=== PATIENT | male | born 1955 | race Caucasian/White ===

== ENCOUNTER 2016-06-02 14:36 | Emergency (ER) | payer MEDICAID ==
[~2016-06-02] VITALS: Ht 175.3 cm; Wt 75.0 kg
[~2016-06-02 14:36] MED LIST: ALBUAER3 INH; AMOX875T2 PO; B12-1CHW CHEW; CHLO25CA2 PO; LISI10TA3 PO; LOVA40TA PO; VITA100T2 PO; WALKER WHEELS/F1 MIS
[2016-06-02 14:38] VITALS: BP 114/57; PULSE 97; RESP 16; TEMP 97.7; O2SAT 98
--- NOTE | 2016-06-02 14:57 | PD ---
HPI Chief Complaint: Injury Time Seen by Provider: 14:57 Travel History International Travel<30 days: No Contact w/Intl Traveler<30days: No Traveled to known affect area: No History of Present Illness HPI 61-year-old male with a history of hypertension, hyperlipidemia, COPD presents to the emergency department for evaluation of right knee injury. Patient states that 5 days ago he was drinking alcohol and he lost his balance causing him to land on his right knee on the asphalt. Denies head trauma or loss of consciousness. States that he scraped his right knee at the time but went to the [facility] to have it cleaned and dressed by the nurse. States that since then he has had worsening redness, swelling and throbbing pain at the area of the abrasion. He denies fever, chills, nausea, vomiting, numbness or tingling, weakness. No other complaints. PFSH Past Medical History Hx Anticoagulant Therapy: No Autoimmune Disease: No Heart Rhythm Problems: No Cancer: No Cardiovascular Problems: Yes High Cholesterol: Yes Chemotherapy: No COPD: Yes Cerebrovascular Accident: No Diabetes: No Diminished Hearing: No Endocrine: No Genitourinary: No Headaches: Yes Hypertension: Yes Immune Disorder: No Musculoskeletal: Yes Neurologic: Yes Psychiatric: No Reproductive: No Sleep Apnea: Yes Past Surgical History Other Surgery: Yes (LEFT HAND) Social History Alcohol Use: Yes (12 PK/DAY) Tobacco Use: Yes (1 PPD) Substance Use: Yes (marijuana) Allergies-Medications (Allergen,Severity, Reaction): Coded Allergies: Codeine (Verified Adverse Reaction, Severe, N&V, 06/02/16) *MDRO Multi-Drug Resistant Organism (Verified Adverse Reaction, Unknown, ) MRSA PCR Screen POSITIVE - 12/31/2015 MRSA (blood) - 08/2004 Reported Meds & Prescriptions Reported Meds & Active Scripts Active [id number] (Methylcobalamin) 1 Mg Chew 1 Mg CHEW DAILY Walker with Front Wheels (Device) 1 Mis Mis 1 Ea .ROUTE DIRECTED Chlordiazepoxide (Chlordiazepoxide HCl) 25 Mg Cap 25 Mg PO TID PRN Take THREE Times daily for 3 Days, then TWICE daily for 3 days, then ONCE a day for 3 Days. Vitamin B-1 (Thiamine HCl) 100 Mg Tab 100 Mg PO DAILY Amoxicillin-Clavulanate 875-125 mg Tab 875 Mg PO Q12HR Reported Proair Hfa 8.5 GM Inh (Albuterol Sulfate) 90 Mcg/Act Aer 90 Mcg INH Lovastatin 40 Mg Tab 40 Mg PO DAILY Lisinopril 10 Mg Tab 10 Mg PO DAILY Review of Systems Except as stated in HPI: all other systems reviewed are Neg Physical Exam Narrative GENERAL: Well-nourished and well-developed pleasant male patient in no acute distress who is nontoxic appearing. SKIN: Warm and dry. HEAD: Normocephalic and atraumatic. EYES: No injection, drainage, or hyphema noted. PERRLA. EOMI. ENT: No nasal drainage noted. Oropharynx is clear. NECK: Supple and the trachea is midline. CARDIOVASCULAR: Regular rate and rhythm. RESPIRATORY: Breath sounds are equal bilaterally with no accessory muscle use, wheezing, rhonchi, or crackles. MUSCULOSKELETAL: There is an abrasion to the anterior right knee with mild drainage and surrounding erythema and warmth. Tenderness to palpation of this area. Patient has full range of motion in the right knee. No obvious deformities, cyanosis, or ecchymosis is present throughout the upper and lower extremities. Patient has full range of motion without any signs of neurovascular compromise. NEUROLOGICAL: Awake, alert, and oriented. Normal speech and gait. Cranial nerves are grossly intact. Data Data Last Documented VS Vital Signs Date Time Temp Pulse Resp B/P Pulse Ox O2 Delivery O2 Flow Rate FiO2 06/02/16 14:38 97.7 97 16 114/57 98 Room Air Orders Knee, Complete (4vws) (06/02/16 14:56) Tetanus/Diphtheria Tox Adult (Tetanus/Di (06/02/16 15:00) Ibuprofen (Motrin) (06/02/16 15:15) Sulfamet-Trimeth Ds 800-160 Mg (Bactrim (06/02/16 15:15) Wound Care (06/02/16 15:42) MDM Medical Decision Making Medical Screen Exam Complete: Yes Emergency Medical Condition: Yes Differential Diagnosis Abrasion versus cellulitis versus wound versus contusion versus sprain Narrative Course 61-year-old male presents to the emergency department for evaluation of right knee injury that occurred 5 days ago. The patient is a homeless alcoholic and had the wound cleaned and dressed at the [facility] a few days ago. It appears to be infected however does not involve the joint as he has full range of motion in the right knee. Patient is afebrile, vital signs are stable. X- ray of the right knee has been ordered and is pending. Tetanus vaccination was updated here in the ED. Patient is given his first dose of Bactrim DS and ibuprofen. X-ray of the right knee shows prepatellar soft tissue swelling but is otherwise unremarkable. Patient will be discharged with Bactrim. Discussed importance of wound care. Discussed when to return to the emergency department. Patient verbalizes understanding and agreement with treatment plan. Diagnosis Primary Impression: Cellulitis of right knee Referrals: Primary Care Physician Patient Instructions: Cellulitis (ED), General Instructions Additional Instructions: Keep wound clean and dry. Take medication as prescribed with food and a full glass of water. [facility] Follow-up with your Primary Care Physician. Return to the ED for any acute worsening of symptoms. Med/Other Pt SpecificInfo: Prescription(s) given Scripts Sulfamethoxazole-Trimethoprim (Bactrim DS)800-160 Mg Tab1 Tab PO BID 10 Days Ref 0 Prov:Hayley Atkins DO 06/02/16 Disposition: 01 DISCHARGE HOME Condition: Stable Princess Jeronimo Jun 02, 2016 14:57
[2016-06-02] MEDS ORDERED: TETANUS/DIPHTHERIA TOXOID ADULT 0.5 ML VIAL IM ONE (15:00)
[2016-06-02] MEDS ORDERED: IBUPROFEN 800 MG TAB PO ONE (15:15)
[2016-06-02] MEDS ORDERED: SULFAMETHOXAZOLE-TRIMETHOPRIM DS 800-160 MG TAB PO ONE (15:15)
--- NOTE | 2016-06-02 15:35 | RADRPT ---
EXAM DATE/TIME: 06/02/2016 15:28 [facility] COMPARISON: No previous studies available for comparison. INDICATIONS : Patient fell, complains of pain and a wound on anterior surface of right knee. MEDICAL HISTORY : Chronic obstructive pulmonary disease. High cholesterol, high blood pressure. SURGICAL HISTORY : None. ENCOUNTER: Initial ACUITY: 4 - 6 days PAIN SCORE: 10/10 LOCATION: Right anterior Knee FINDINGS: There is prepatellar soft tissue swelling. There is no knee joint effusion. Mild degenerative barrera es are noted involving the medial femoral tibial joints and the patellofemoral joint. There is no ac tribal fracture or dislocation. CONCLUSION: 1. Diffuse prepatellar soft tissue swelling. 2. No acute fracture, dislocation or knee joint effusion. 3. 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 Lisandro Rodriguez MD on June 02, 2016 at 15:25 Board Certified Radiologist. This report was verified electronically.
[2016-06-02] MEDS ORDERED: BACT800T5 PO (15:42)
[2016-08-17] MEDS ORDERED: ADVA250A INH (16:54)
== END 2016-06-02 16:21 | disposition home or self-care (01) ==
LOC: NEPB 14:36
DX: L03.115 Cellulitis of right lower limb (principal); E78.00 Pure hypercholesterolemia, unspecified; J44.9 Chronic obstructive pulmonary disease, unspecified; I10 Essential (primary) hypertension; F10.10 Alcohol abuse, uncomplicated; F17.210 Nicotine dependence, cigarettes, uncomplicated; F12.90 Cannabis use, unspecified, uncomplicated; W01.0XXA Fall on same level from slipping, tripping and stumbling without subsequent striking against object, initial encounter; Z59.0 Homelessness; Z23 Encounter for immunization
CPT/HCPCS: 73564; 90471; 90714

== ENCOUNTER 2016-07-20 16:16 | Inpatient (IN) | payer MEDICAID ==
[~2016-07-20] VITALS: Ht 175.3 cm; Wt 77.1 kg
[~2016-07-20 16:16] MED LIST changes: +BACT800T5 PO
[2016-07-20 16:35] VITALS: BP 134/85; PULSE 105; RESP 16; TEMP 98; O2SAT 99
[2016-07-20 16:38] VITALS: BP 134/85; PULSE 104; PULSE 106; RESP 16; O2SAT 100
[2016-07-20] MEDS ORDERED: VANCOMYCIN INJ 1,000 MG in SODIUM CHLOR 0.9% 250 ML INJ 250 ML IV ONE (16:45)
[2016-07-20] MEDS: SODIUM CHLOR 0.9% 1000 ML INJ 1,000 ML IV SCH (16:52)
--- NOTE | 2016-07-20 16:54 | PD ---
HPI Chief Complaint: Skin Problem Time Seen by Provider: 16:28 Travel History International Travel<30 days: No Contact w/Intl Traveler<30days: No Traveled to known affect area: No History of Present Illness HPI 61-year-old male complains of right foot pain and swelling. Patient states that he has abrasion to right foot about a week ago. Patient states he has increasing redness swelling and pain to right foot since then. Patient denies any fever chills. Patient denies any headache. Patient denies any chest pain or shortness of breath. Patient denies abdominal pain. Patient denies any recent fall or injury. Patient denies any focal weakness or numbness of extremity. Patient has history hypertension, dyslipidemia, COPD, alcohol abuse. Patient states that last drink was yesterday. Patient states that the nurse at the [facility] has been doing local wound care for him. Patient states that he is up-to-date with TD booster. PFSH Past Medical History Hx Anticoagulant Therapy: No Autoimmune Disease: No Heart Rhythm Problems: No Cancer: No Cardiovascular Problems: Yes High Cholesterol: Yes Chemotherapy: No COPD: Yes Cerebrovascular Accident: No Diabetes: No Diminished Hearing: No Endocrine: No Genitourinary: No Headaches: Yes Hypertension: Yes Immune Disorder: No Musculoskeletal: Yes Neurologic: Yes Psychiatric: No Reproductive: No Sleep Apnea: Yes Past Surgical History Other Surgery: Yes (LEFT HAND) Social History Alcohol Use: Yes (8 beers a day, last one last night) Tobacco Use: Yes Substance Use: No Allergies-Medications (Allergen,Severity, Reaction): Coded Allergies: Codeine (Verified Adverse Reaction, Severe, N&V, 07/20/16) *MDRO Multi-Drug Resistant Organism (Verified Adverse Reaction, Unknown, ) MRSA PCR Screen POSITIVE - 12/31/2015 MRSA (blood) - 08/2004 Reported Meds & Prescriptions Reported Meds & Active Scripts Active Reported Advair Diskus Inh (Fluticasone-Salmeterol Inh) 250-50 Mcg/Blist Aer 1 Puff INH BID Rinse mouth after use. Proair Hfa 8.5 GM Inh (Albuterol Sulfate) 90 Mcg/Act Aer 90 Mcg INH Lovastatin 40 Mg Tab 40 Mg PO DAILY Lisinopril 10 Mg Tab 10 Mg PO DAILY Review of Systems General / Constitutional: No: Fever Eyes: No: Visual changes HENT: No: Headaches Cardiovascular: No: Chest Pain or Discomfort Respiratory: No: Shortness of Breath Gastrointestinal: No: Abdominal Pain Genitourinary: No: Dysuria Musculoskeletal: No: Pain Skin: No Rash Neurologic: No: Weakness Psychiatric: No: Depression Endocrine: No: Polydipsia Hematologic/Lymphatic: No: Easy Bruising Physical Exam Narrative GENERAL: Well-nourished, well-developed patient. SKIN: Warm and dry. HEAD: Normocephalic. EYES: No scleral icterus. No injection or drainage. NECK: Supple, trachea midline. No JVD or lymphadenopathy. CARDIOVASCULAR: Regular rate and rhythm without murmurs, gallops, or rubs. RESPIRATORY: Breath sounds equal bilaterally. No accessory muscle use. GASTROINTESTINAL: Abdomen soft, non-tender, nondistended. MUSCULOSKELETAL: No cyanosis, or edema. BACK: Nontender without obvious deformity. No CVA tenderness. Patient has redness swelling with mild tenderness diffuse over the right foot. Patient has a large pustule bulla lateral aspect the right foot. Multiple ulcerated lesions on the right foot. Patient also has multiple ulcerated lesions on the left foot with mild redness swelling of the left foot also. Patient has redness swelling on the or the toes bilateral feet. Data Data Last Documented VS Vital Signs Date Time Temp Pulse Resp B/P Pulse Ox O2 Delivery O2 Flow Rate FiO2 07/20/16 16:38 106 16 134/85 100 Room Air 07/20/16 16:35 98.0 Orders Complete Blood Count With Diff (07/20/16 16:33) Comprehensive Metabolic Panel (07/20/16 16:33) Prothrombin Time / Inr (Pt) (07/20/16 16:33) Act Partial Throm Time (Ptt) (07/20/16 16:33) Blood Culture (07/20/16 16:33) Wound Culture And Gram Stain (07/20/16 16:33) Iv Access Insert/Monitor (07/20/16 16:33) Ecg Monitoring (07/20/16 16:33) Oximetry (07/20/16 16:33) Sodium Chlor 0.9% 1000 Ml Inj (Ns 1000 M (07/20/16 16:45) Vancomycin Inj (Vancomycin Inj) (07/20/16 16:45) Foot, Complete ([id number]) (07/20/16 16:35) Chest, Single Ap (07/20/16 16:35) Potassium Chloride (Kcl) (07/20/16 18:30) Labs Laboratory Tests Test 07/20/16 16:48 White Blood Count 11.3 TH/MM3 Red Blood Count 3.52 MIL/MM3 Hemoglobin 12.2 GM/DL Hematocrit 35.4 % Mean Corpuscular Volume 100.5 FL Mean Corpuscular Hemoglobin 34.6 PG Mean Corpuscular Hemoglobin 34.4 % Concent Red Cell Distribution Width 15.6 % Platelet Count 220 TH/MM3 Mean Platelet Volume 8.9 FL Neutrophils (%) (Auto) 80.6 % Lymphocytes (%) (Auto) 12.1 % Monocytes (%) (Auto) 6.7 % Eosinophils (%) (Auto) 0.3 % Basophils (%) (Auto) 0.3 % Neutrophils # (Auto) 9.1 TH/MM3 Lymphocytes # (Auto) 1.4 TH/MM3 Monocytes # (Auto) 0.8 TH/MM3 Eosinophils # (Auto) 0.0 TH/MM3 Basophils # (Auto) 0.0 TH/MM3 CBC Comment DIFF FINAL Differential Comment Prothrombin Time 10.3 SEC Prothromb Time International 0.9 RATIO Ratio Activated Partial 29.3 SEC Thromboplast Time Sodium Level 138 MEQ/L Potassium Level 3.2 MEQ/L Chloride Level 101 MEQ/L Carbon Dioxide Level 27.7 MEQ/L Anion Gap 9 MEQ/L Blood Urea Nitrogen 8 MG/DL Creatinine 0.78 MG/DL Estimat Glomerular Filtration 102 ML/MIN Rate Random Glucose 201 MG/DL Calcium Level 8.4 MG/DL Total Bilirubin 0.4 MG/DL Aspartate Amino Transf 11 U/L (AST/SGOT) Alanine Aminotransferase 13 U/L (ALT/SGPT) Alkaline Phosphatase 98 U/L Total Protein 8.1 GM/DL Albumin 2.8 GM/DL MDM Medical Decision Making Medical Screen Exam Complete: Yes Emergency Medical Condition: Yes Medical Record Reviewed: Yes Interpretation(s) Last Impressions Foot X-Ray 07/20/161634 Signed Impressions: Service Date/Time: Wednesday, July 20, 2016 16:53 - CONCLUSION: Unremarkable examination of the right foot. Brannon Chow MD Chest X-Ray 07/20/161634 Signed Impressions: Service Date/Time: Wednesday, July 20, 2016 16:48 - CONCLUSION: Normal examination. Brannon Chow MD 1828 PM. CBC with WBC 11.3. Hemoglobin 12.2 hematocrit 35.4. MCV 100.5. 80 neutrophil. Potassium 3.2. Glucose 201. Differential Diagnosis Differential diagnosis including cellulitis, abscess, osteomyelitis. Narrative Course 61-year-old male with bilateral foot cellulitis, worse on the right foot. A pustule lesion on the right foot was debrided. Culture obtained. Vancomycin 1 g IV given. Normal saline solution 70 cc an hour. Thiamine 100 mg IV. Patient has history of alcohol abuse. KCl 40 mEq by mouth given. Diagnosis Primary Impression: Cellulitis of right foot Additional Impressions: Cellulitis of left foot Hyperglycemia Hypokalemia Admitting Information Admitting Physician Requests: Admit Mainor Barry MD Jul 20, 2016 16:54
--- NOTE | 2016-07-20 17:07 | RADRPT ---
EXAM DATE/TIME: 07/20/2016 16:48 [facility] COMPARISON: CHEST SINGLE AP, April 29, 2016, 16:43. INDICATIONS : Shortness of Breath MEDICAL HISTORY : Chronic obstructive pulmonary disease. High cholesterol, high blood SURGICAL HISTORY : None. ENCOUNTER: Initial ACUITY: 1 day PAIN SCORE: 0/10 LOCATION: Bilateral chest FINDINGS: A single view of the chest demonstrates the lungs to be symmetrically aerated without evidence of mas s, infiltrate or effusion. The cardiomediastinal contours are unremarkable. Osseous structures are intact. CONCLUSION: Normal examination. Brannon Chow MD on July 20, 2016 at 17:06 Board Certified Radiologist. This report was verified electronically.
--- NOTE | 2016-07-20 17:08 | RADRPT ---
EXAM DATE/TIME: 07/20/2016 16:53 [facility] COMPARISON: No previous studies available for comparison. INDICATIONS : Right foot infection lateral side x1 week. MEDICAL HISTORY : Chronic obstructive pulmonary disease. High cholesterol, high blood SURGICAL HISTORY : None. ENCOUNTER: Initial ACUITY: 1 day PAIN SCORE: 10/10 LOCATION: Right Foot FINDINGS: Three view examination of the right foot demonstrates no soft tissue swelling, dislocation, or fractu re. The tarsal bones appear intact. The interphalangeal and metatarsophalangeal joints are intact. The calcaneus is intact. Bony mineralization is normal. CONCLUSION: Unremarkable examination of the right foot. Brannon Chow MD on July 20, 2016 at 17:07 Board Certified Radiologist. This report was verified electronically.
[2016-07-20 17:09] LABS: AUTOMATED NEUTROPHIL # 9.1 TH/MM3 (1.8-7.7); BASOPHIL % 0.3 % (0.0-2.0); EOSINOPHIL % 0.3 % (0.0-4.0); HEMATOCRIT 35.4 % (39.0-51.0); HEMO FLAGS DIFF FINAL; LYMPH % 12.1 % (9.0-44.0); LYMPHOCYTE # 1.4 TH/MM3 (1.0-4.8); MEAN CELL VOLUME 100.5 FL (80.0-100.0); MEAN CORPUSCULAR HEMOGLOBIN 34.6 PG (27.0-34.0); MEAN CORPUSCULAR HGB CONC 34.4 % (32.0-36.0); MONO % 6.7 % (0.0-8.0); NEUT % 80.6 % (16.0-70.0); PLATELET COUNT 220 TH/MM3 (150-450); RED BLOOD COUNT 3.52 MIL/MM3 (4.50-5.90); RED CELL DISTRIBUTION WIDTH 15.6 % (11.6-17.2); WHITE BLOOD COUNT 11.3 TH/MM3 (4.0-11.0)
[2016-07-20 17:19] LABS: APTT (PATIENT) 29.3 SEC (24.3-30.1); INTERNATIONAL NORMALIZED RATIO 0.9 RATIO; PROTHROMBIN TIME - PATIENT 10.3 SEC (9.8-11.6)
[2016-07-20] MEDS ORDERED: ADVA250A INH (17:21)
[2016-07-20 17:32] LABS: ANION GAP 9 MEQ/L (5-15); AST (GOT) 11 U/L (15-37); BICARBONATE 27.7 MEQ/L (21.0-32.0); BLOOD UREA NITROGEN 8 MG/DL (7-18); CHLORIDE 101 MEQ/L (98-107); GLOMERULAR FILTRATION RATE 102 ML/MIN (>89); POTASSIUM 3.2 MEQ/L (3.5-5.1); SODIUM (NA) 138 MEQ/L (136-145)
[2016-07-20 17:35] LABS: ALKALINE PHOSPHATASE 98 U/L (45-117); ALT (GPT) 13 U/L (12-78); TOTAL BILIRUBIN ADULT 0.4 MG/DL (0.2-1.0)
[2016-07-20] MEDS ORDERED: POTASSIUM CHLORIDE 20 MEQ CONTROLLED RELEASE TAB PO ONE (18:30)
[2016-07-20] MEDS ORDERED: ACETAMINOPHEN 325 MG TAB PO PRN (18:45)
[2016-07-20] MEDS ORDERED: SODIUM CHLORIDE 0.9% FLUSH 5 ML FLUSH IVF PRN (18:45)
[2016-07-20] MEDS ORDERED: ONDANSETRON HCL 4 MG/2 ML VIAL IV PRN (18:45)
[2016-07-20] MEDS ORDERED: KETOROLAC TROMETHAMINE 30 MG/ML (IVP) VIAL IV PUSH ONE (18:45)
[2016-07-20] MEDS ORDERED: VANCOMYCIN INJ 1,000 MG in SODIUM CHLOR 0.9% 250 ML INJ 250 ML IV SCH (19:15)
[2016-07-20 19:16] VITALS: BP 142/79; PULSE 99; RESP 18; O2SAT 100
[2016-07-20] MEDS ORDERED: SODIUM CHLORIDE 0.9% FLUSH 5 ML FLUSH FLUSH PRN (20:00)
[2016-07-20] MEDS ORDERED: NALOXONE HCL 0.4 MG/ML AMP IV PRN (20:00)
[2016-07-20] MEDS ORDERED: Vancomycin Consult Pharmacy 1 EA OTHER SCH (20:00)
[2016-07-20] MEDS: SODIUM CHLORIDE 0.9% FLUSH 5 ML FLUSH FLUSH SCH (20:58)
[2016-07-20] MEDS ORDERED: SODIUM CHLORIDE 0.9% FLUSH 5 ML FLUSH IVF SCH (21:00)
[2016-07-20 21:26] VITALS: O2SAT 99
[2016-07-20 21:53] VITALS: BP 135/82; PULSE 83; RESP 16; TEMP 98.1; O2SAT 95
--- NOTE | 2016-07-21 00:24 | HHI.HP ---
[facility] Service [facility] Primary Care Physician MARQUISE Adhikari Admission Diagnosis bilateral feet cellulitis. Hypokalemia. Hyperglycemia. Diagnoses: Chief Complaint: Right foot pain/swelling Travel History International Travel<30 Days: No Contact w/Intl Traveler <30 Da: No Traveled to Known Affected Are: No History of Present Illness History taken from patient and ED physician. 61-year-old male with a history of hypertension, dyslipidemia, COPD and EtOH abuse presented with complaints of right foot pain/swelling on Tuesday. Patient states that pain as throbbing and radiates throughout his whole foot. Patient is homeless and only walks in flip flops. The lesion was lanced open by PA in ED and covered with [place]. He denies any chest pain, shortness of breath, fever or chills. PCP is [facility] Review of Systems Constitutional: DENIES: Fever, Chills Respiratory: DENIES: Cough, Sputum production, Shortness of breath Cardiovascular: COMPLAINS OF: Lower Extremity Edema, DENIES: Chest pain Gastrointestinal: DENIES: Constipation, Diarrhea, Nausea, Vomiting Musculoskeletal: COMPLAINS OF: Joint pain, DENIES: Back pain, Neck pain Integumentary: DENIES: Rash Hematologic/lymphatic: DENIES: Lymphadenopathy Immunologic/allergic: DENIES: Urticaria Neurologic: DENIES: Headache Past Family Social History Past Medical History Hypertension Dyslipidemia COPD Sleep apnea Alcohol abuse Past Surgical History He had debridement of his left hand after an abscess about 8 years ago Reported Medications Reported Meds & Active Scripts Active Reported Advair Diskus Inh (Fluticasone-Salmeterol Inh) 250-50 Mcg/Blist Aer 1 Puff INH BID Rinse mouth after use. Proair Hfa 8.5 GM Inh (Albuterol Sulfate) 90 Mcg/Act Aer 90 Mcg INH Lovastatin 40 Mg Tab 40 Mg PO DAILY Lisinopril 10 Mg Tab 10 Mg PO DAILY Allergies: Coded Allergies: Codeine (Verified Adverse Reaction, Severe, N&V, 07/20/16) *MDRO Multi-Drug Resistant Organism (Verified Adverse Reaction, Unknown, ) MRSA PCR Screen POSITIVE - 12/31/2015 MRSA (blood) - 08/2004 Active Ordered Medications Current Medications Medications (Trade) Dose Ordered Sig/Ashli Route Start Time Stop Time Status Last Admin (NS 1000 ml Inj) 1,000 ml @ 70 mls/hr [id number] IV 07/20/16 16:45 07/20/16 16:52 (Zofran Inj) 4 mg Q6H PRN IV 07/20/16 18:45 (Tylenol) 650 mg Q4H PRN PO 07/20/16 18:45 (KCl) 20 meq DAILY PO 07/21/16 09:00 (NS Flush) 2 ml UNSCH PRN FLUSH 07/20/16 20:00 (NS Flush) 2 ml BID FLUSH 07/20/16 21:00 Naloxone HCl 0.4 mg 0.4 mg UNSCH PRN IV 07/20/16 20:00 Pharmacy Profile Note 0 ml @ 0 mls/hr UNSCH OTHER 07/20/16 20:00 (Vancomycin Inj/ NS 250 ml Inj) 250 ml @ 250 mls/hr Q12H IV 07/21/16 09:00 Miscellaneous Information SPECIFIC LAB TO BE ... ONCE ONCE XX 07/22/16 08:45 07/22/16 08:46 Family History Father: cancer Social History Tobacco use: 05/24 ppd Alcohol use: 8 beers a day Illicit drug use: marijuana Physical Exam Vital Signs Vital Signs Date Time Temp Pulse Resp B/P Pulse Ox O2 Delivery O2 Flow Rate FiO2 07/20/16 21:53 98.1 83 16 135/82 95 07/20/16 21:26 99 07/20/16 19:16 99 18 142/79 100 Room Air 07/20/16 16:38 106 16 134/85 100 Room Air 07/20/16 16:38 104 16 134/85 100 Room Air 07/20/16 16:35 98.0 105 16 134/85 99 Physical Exam GENERAL: This is a well-nourished, well-developed patient, in no apparent distress. SKIN: right outer foot lesion with surrounding edema and erythema HEAD: Atraumatic. Normocephalic. EYES: Pupils equal round and reactive. ENT: Nose without bleeding, purulent drainage or septal hematoma. Airway patent. NECK: Trachea midline. No JVD CARDIOVASCULAR: Regular rate and rhythm without murmurs, gallops, or rubs. RESPIRATORY: Clear to auscultation. Breath sounds equal bilaterally. No wheezes , rales, or rhonchi. GASTROINTESTINAL: Abdomen soft, non-tender, nondistended. No guarding. MUSCULOSKELETAL: Extremities without clubbing, cyanosis, or edemaNo calf tenderness. NEUROLOGICAL: Awake and alert. Motor and sensory grossly within normal limits. Normal speech. Laboratory Laboratory Tests Test 07/20/16 16:48 White Blood Count 11.3 Red Blood Count 3.52 Hemoglobin 12.2 Hematocrit 35.4 Mean Corpuscular Volume 100.5 Mean Corpuscular Hemoglobin 34.6 Mean Corpuscular Hemoglobin 34.4 Concent Red Cell Distribution Width 15.6 Platelet Count 220 Mean Platelet Volume 8.9 Neutrophils (%) (Auto) 80.6 Lymphocytes (%) (Auto) 12.1 Monocytes (%) (Auto) 6.7 Eosinophils (%) (Auto) 0.3 Basophils (%) (Auto) 0.3 Neutrophils # (Auto) 9.1 Lymphocytes # (Auto) 1.4 Monocytes # (Auto) 0.8 Eosinophils # (Auto) 0.0 Basophils # (Auto) 0.0 CBC Comment DIFF FINAL Differential Comment Prothrombin Time 10.3 Prothromb Time International 0.9 Ratio Activated Partial 29.3 Thromboplast Time Sodium Level 138 Potassium Level 3.2 Chloride Level 101 Carbon Dioxide Level 27.7 Anion Gap 9 Blood Urea Nitrogen 8 Creatinine 0.78 Estimat Glomerular Filtration 102 Rate Random Glucose 201 Calcium Level 8.4 Total Bilirubin 0.4 Aspartate Amino Transf 11 (AST/SGOT) Alanine Aminotransferase 13 (ALT/SGPT) Alkaline Phosphatase 98 Total Protein 8.1 Albumin 2.8 Date/Time Procedure Status Source Growth 07/20/16 16:48 Gram Stain - Final Resulted Wound Foot 07/20/16 16:48 Wound Culture Resulted Wound Foot Pending 07/20/16 16:48 Aerobic Blood Culture Received Blood Peripheral Pending 07/20/16 16:48 Anaerobic Blood Culture Received Blood Peripheral Pending Result Diagram: 07/20/16 1648 07/20/16 1648 Imaging Last Impressions Foot X-Ray 07/20/16 1635 Signed Impressions: Service Date/Time: Wednesday, July 20, 2016 16:53 - CONCLUSION: Unremarkable examination of the right foot. Brannon Chow MD Chest X-Ray 07/20/16 1635 Signed Impressions: Service Date/Time: Wednesday, July 20, 2016 16:48 - CONCLUSION: Normal examination. Brannon Chow MD Assessment and Plan Problem List: (1) Cellulitis of right foot ICD Code: L03.115 Status: Acute (2) Leukocytosis ICD Code: D72.829 Status: Acute (3) Hypokalemia ICD Code: E87.6 Status: Acute Assessment and Plan 61-year-old male with a history of hypertension, dyslipidemia, COPD and EtOH abuse presented with Cellulitis of right foot Images: Foot x-ray unremarkable -Antibiotics Vancomycin IV, pharmacy consult -Pain management with IV Toradol, will increase if needed Leukocytosis, likely due to cellulitis Labs: WBC 11.3, neutrophils 80% -Continue antibiotics as above -Trend CBC Hypokalemia Labs: Potassium 3.2 -Supplemental given -Trend BMP Hypertension, chronic -Monitor vitals -Restart home medications lisinopril Alcohol abuse -[facility] protocol -Encouraged to quit DVT prophylaxis: Lovenox Written by Taylor CAMARILLO, acting as scribe for Dr. Matson on 07/21/16 at 0400. The documentation accurately reflects the work performed [id number] and decisions made by me and the physician Dr Matson on 07/21/16. The documentation accurately reflects the work performed [id number] by me on at 0400 Discussed Condition With Patient Physician Certification 2 Midnight Certification Type: Admission for Inpatient Services Order for Inpatient Services The services are ordered in accordance with Medicare regulations or non- Medicare payer requirements, as applicable. In the case of services not specified as inpatient-only, they are appropriately provided as inpatient services in accordance with the 2-midnight benchmark. Estimated LOS (days): 3 days is the estimated time the patient will need to remain in the hospital, assuming treatment plan goals are met and no additional complications. Post-Hospital Plan: [place] Taylor Tavarez Jul 21, 2016 00:24 Neri Matson MD Jul 22, 2016 08:34
[2016-07-21] MEDS ORDERED: LORazepam 2 MG/ML VIAL IV PUSH PRN (04:15)
[2016-07-21] MEDS ORDERED: KETOROLAC TROMETHAMINE 60 MG/2 ML (IM) VIAL IM ONE (04:15)
[2016-07-21 04:42] VITALS: BP 129/68; PULSE 85; RESP 16; TEMP 98.5; O2SAT 91
[2016-07-21 07:39] LABS: AUTOMATED NEUTROPHIL # 6.1 TH/MM3 (1.8-7.7); BASOPHIL # 0.1 TH/MM3 (0-0.2); BASOPHIL % 0.8 % (0.0-2.0); EOSINOPHIL # 0.1 TH/MM3 (0-0.4); EOSINOPHIL % 0.6 % (0.0-4.0); HEMO FLAGS DIFF FINAL; LYMPH % 23.1 % (9.0-44.0); LYMPHOCYTE # 2.1 TH/MM3 (1.0-4.8); MEAN CORPUSCULAR HEMOGLOBIN 34.2 PG (27.0-34.0); MEAN CORPUSCULAR HGB CONC 33.5 % (32.0-36.0); MONO % 9.9 % (0.0-8.0); NEUT % 65.6 % (16.0-70.0); PLATELET COUNT 192 TH/MM3 (150-450); RED BLOOD COUNT 2.94 MIL/MM3 (4.50-5.90); RED CELL DISTRIBUTION WIDTH 15.7 % (11.6-17.2); WHITE BLOOD COUNT 9.3 TH/MM3 (4.0-11.0)
[2016-07-21 08:00] VITALS: BP 141/77; PULSE 76; RESP 24; TEMP 98.6; O2SAT 91
[2016-07-21 08:13] LABS: BICARBONATE 25.4 MEQ/L (21.0-32.0); POTASSIUM 3.7 MEQ/L (3.5-5.1)
[2016-07-21] MEDS: SODIUM CHLORIDE 0.9% FLUSH 5 ML FLUSH FLUSH SCH ×2 (09:00→21:56)
[2016-07-21] MEDS: PRAVASTATIN SOD 40 MG TAB PO SCH (09:21)
[2016-07-21] MEDS: LISINOPRIL 10 MG TAB PO SCH (09:21)
[2016-07-21] MEDS: THIAMINE HCL 100 MG TAB PO SCH (09:21)
[2016-07-21] MEDS: ENOXAPARIN SODIUM 30 MG/0.3 ML SYRINGE SQ SCH (09:21)
[2016-07-21] MEDS: POTASSIUM CHLORIDE 20 MEQ CONTROLLED RELEASE TAB PO SCH (09:21)
[2016-07-21] MEDS: chlordiazePOXIDE 25 MG CAP PO SCH ×3 (09:21→17:42)
[2016-07-21] MEDS: VANCOMYCIN INJ 1,000 MG in SODIUM CHLOR 0.9% 250 ML INJ 250 ML IV SCH ×2 (09:22→22:12)
[2016-07-21] MEDS: SODIUM CHLOR 0.9% 1000 ML INJ 1,000 ML IV SCH (09:22)
--- NOTE | 2016-07-21 11:24 | HHI.PR ---
Addendum to Inpatient Note Additional Information Patient seen examined. Patient came in with right foot infection, swelling, pain. Currently patient complains of severe pain. We will start patient on pain meds - Percocet, Dilaudid PRN. Also, consult Podiatry and obtain CTA with run off. Edie Wilson DO Jul 21, 2016 11:24 am
[2016-07-21] MEDS: oxyCODONE/ACETAMINOPHEN 7.5 MG/325 MG TAB PO PRN ×2 (11:49→17:46)
[2016-07-21 12:00] VITALS: BP 131/70; PULSE 84; RESP 24; TEMP 98.3; O2SAT 99
[2016-07-21] MEDS ORDERED: IOHEXOL 350 MG/ML 10 ML VIAL (for RAD DIAG) IV ONE (13:01)
[2016-07-21 13:19] VITALS: O2SAT 95
[2016-07-21] MEDS: CEFEPIME INJ 2,000 MG in SODIUM CHLORIDE 0.9% INJ 100 ML IV SCH ×2 (14:32→21:56)
--- NOTE | 2016-07-21 15:12 | RADRPT ---
EXAM DATE/TIME: 07/21/2016 12:45 [facility] COMPARISON: No previous studies available for comparison. INDICATIONS : Right foot pain and swelling, infection. IV CONTRAST: 100 cc Omnipaque 350 (iohexol) IV RADIATION DOSE: 2.82 CTDIvol (mGy) MEDICAL HISTORY : Cardiovascular disease. Hypertension. SURGICAL HISTORY : None. ENCOUNTER: Initial ACUITY: 1 week PAIN SCALE: 6/10 LOCATION: Right foot TECHNIQUE: Volumetric scanning was performed using a multi-row detector CT scanner. The data was post processed with a variety of visualization algorithms including full volume maximum intensity projection, multi -planar sliding thin slab reformation, curved planar reformation, and surface rendering techniques. Using automated exposure control and adjustment of the mA and/or kV according to patient size, radiat ion dose was kept as low as reasonably achievable to obtain optimal diagnostic quality images. FINDINGS: There is subsegmental atelectasis in the both bases. The liver and spleen are normal in size and no focal defects are identified. There are multiple stones within the gallbladder without wall thickenin g or pericholecystic fluid the largest measuring 2 mm. The pancreas demonstrates no evidence of mass and there is no dilatation of the pancreatic duct. The adrenal glands and kidneys appear normal bilat erally. No hydronephrosis or mass lesions are identified. The prostate gland is moderately enlarged i mpinging on the bladder base. There is diverticulosis without evidence of diverticulitis. The aorta is normal in caliber. There is no evidence of aneurysm or dissection. The renal artery orig ins are patent bilaterally. The celiac axis and superior mesenteric artery origins are also patent. The iliac vessels are patent. There is 60-70% stenosis in the common femoral artery. The superficial femoral artery demonstrates short segment occlusion in the distal thigh over 4 cm with reconstitution . The trifurcation is patent though there is dilute contrast is inadequate evaluation of the infrapop liteal vessels. Left common iliac artery is patent with a short segment dissection of the left common iliac artery. T he external iliac artery is patent. High-grade stenosis is present involving the common femoral arter y greater than 80%. The superficial femoral artery demonstrates diffuse plaquing but no evidence of s egmental occlusion. There is three-vessel runoff to the ankle. CONCLUSION: 1. Bilateral high-grade common femoral artery stenoses. 2. Short segment occlusion of the right superficial femoral artery. This would be amenable to endovas cular repair. Vlad Braun MD on July 21, 2016 at 15:02 Board Certified Radiologist. This report was verified electronically.
[2016-07-21 16:00] VITALS: BP 111/65; PULSE 82; RESP 22; TEMP 98.6; O2SAT 95
[2016-07-21 20:00] VITALS: BP 122/78; PULSE 86; RESP 18; TEMP 97.4; O2SAT 94
[2016-07-21] MEDS: HYDROmorphone HCL PF 1 MG/ML VIAL IV PUSH PRN (21:56)
[2016-07-22] VITALS (7 sets, daily range): BP systolic 94–139; BP diastolic 61–79; PULSE 76–88; RESP 18–20; TEMP 97.1–98.5; O2SAT 91–95
[2016-07-22] MEDS: oxyCODONE/ACETAMINOPHEN 7.5 MG/325 MG TAB PO PRN ×3 (01:05→20:42)
[2016-07-22] MEDS: SODIUM CHLOR 0.9% 1000 ML INJ 1,000 ML IV SCH ×2 (01:07→11:39)
[2016-07-22] MEDS: CEFEPIME INJ 2,000 MG in SODIUM CHLORIDE 0.9% INJ 100 ML IV SCH (05:17)
[2016-07-22] MEDS: HYDROmorphone HCL PF 1 MG/ML VIAL IV PUSH PRN ×3 (05:23→17:53)
[2016-07-22] MEDS ORDERED: PHARMACY ORDERED LAB XX ONE (08:45)
[2016-07-22] MEDS: ENOXAPARIN SODIUM 30 MG/0.3 ML SYRINGE SQ SCH (09:00)
[2016-07-22] MEDS: SODIUM CHLORIDE 0.9% FLUSH 5 ML FLUSH FLUSH SCH ×2 (09:00→20:43)
[2016-07-22] MEDS: VANCOMYCIN INJ 1,000 MG in SODIUM CHLOR 0.9% 250 ML INJ 250 ML IV SCH (09:00)
[2016-07-22] MEDS: PRAVASTATIN SOD 40 MG TAB PO SCH (09:02)
[2016-07-22] MEDS: POTASSIUM CHLORIDE 20 MEQ CONTROLLED RELEASE TAB PO SCH (09:02)
[2016-07-22] MEDS: THIAMINE HCL 100 MG TAB PO SCH (09:02)
[2016-07-22] MEDS: LISINOPRIL 10 MG TAB PO SCH (09:02)
[2016-07-22] MEDS: chlordiazePOXIDE 25 MG CAP PO SCH ×2 (09:03→12:53)
--- NOTE | 2016-07-22 12:12 | HHI.PR ---
Subjective Remarks Follow-up for bilateral lower extremity ulcerative lesions especially on the right side. Patient is currently doing well. Pain is well controlled with Percocet. Denies any fever or chills. Objective Vitals Vital Signs Date Time Temp Pulse Resp B/P Pulse Ox O2 Delivery O2 Flow Rate FiO2 07/22/16 08:00 98.5 84 20 139/63 93 07/22/16 04:00 98.3 87 18 124/71 91 07/22/16 00:00 98.5 88 18 129/64 93 07/22/16 00:00 Room Air 07/21/16 20:00 Room Air 07/21/16 20:00 97.4 86 18 122/78 94 07/21/16 16:00 98.6 82 22 111/65 95 07/21/16 13:19 95 21 07/21/16 12:00 98.3 84 24 131/70 99 I/O 07/21/16 07/21/16 07/21/16 07/22/16 07/22/16 07/22/16 07:00 15:00 23:00 07:00 15:00 23:00 Intake Total 120 ml 2279 ml 674 ml 703 ml Output Total 600 ml 450 ml 650 ml 300 ml Balance -480 ml 1829 ml 24 ml 403 ml Intake Oral 120 ml 1200 ml 240 ml 240 ml IV Total 1079 ml 434 ml 463 ml Output Urine Total 600 ml 450 ml 650 ml 300 ml # Bowel Movements 0 0 0 0 Result Diagram: 07/21/16 0650 07/22/16 0727 Imaging Last Impressions Aorta w/Runoff CTA 07/21/16 0000 Signed Impressions: Service Date/Time: Thursday, July 21, 2016 12:45 - CONCLUSION: 1. Bilateral high-grade common femoral artery stenoses. 2. Short segment occlusion of the right superficial femoral artery. This would be amenable to endovascular repair. Vlad Braun MD Foot X-Ray 07/20/161634 Signed Impressions: Service Date/Time: Wednesday, July 20, 2016 16:53 - CONCLUSION: Unremarkable examination of the right foot. Brannon Chow MD Chest X-Ray 07/20/161634 Signed Impressions: Service Date/Time: Wednesday, July 20, 2016 16:48 - CONCLUSION: Normal examination. Brannon Chow MD Objective Remarks GENERAL: Alert, oriented 3, NAD. SKIN: Warm and dry. HEAD: Normocephalic. EYES: No scleral icterus. No injection or drainage. NECK: Supple, trachea midline. No JVD or lymphadenopathy. CARDIOVASCULAR: Regular rate and rhythm without murmurs, gallops, or rubs. RESPIRATORY: Breath sounds equal bilaterally. No accessory muscle use. GASTROINTESTINAL: Abdomen soft, non-tender, nondistended. MUSCULOSKELETAL: No cyanosis, or edema. Bilateral foot ulcerative lesions. Wrapped in dressing. BACK: Nontender without obvious deformity. No CVA tenderness. Procedures None. A/P Problem List: (1) PVD (peripheral vascular disease) ICD Code: I73.9 Status: Acute (2) Hypokalemia ICD Code: E87.6 Status: Acute (3) HTN (hypertension) ICD Code: I10 Status: Chronic (4) Hyperlipidemia ICD Code: E78.5 Status: Chronic Assessment and Plan Mr. Garcia is a 61-year-old male with a history of hyperlipidemia, hypertension who was admitted to the hospital due to right foot pain and swelling. Patient was started on vancomycin for suspected cellulitis. - Peripheral vascular disease - Probable superimposed soft tissue infection - CTA with runoff shows bilateral high-grade common femoral artery stenosis, short segment occlusion of the right superficial femoral artery. - Podiatry already consulted. We'll also consult vascular surgery for probable intervention. - Currently on cefepime 2 g every 8 hours, vancomycin. Discontinue Cefepime and Vancomycin. - Wound culture is growing group A beta streptococcus. Started patient on Clindamycin and Penicillin G. We will switch PCN to Ceftriaxone. - Greatly appreciate Dr. Locke's (Vascular surgery) help. - Hypertension - continue lisinopril 10 mg daily - Hyperlipidemia - continue pravastatin 40 mg daily. Full code. Reid. Edie Wilson DO Jul 22, 2016 12:00 pm
[2016-07-22] MEDS ORDERED: CLINDAMYCIN INJ 600 MG in SODIUM CHLORIDE 0.9% INJ 100 ML IV ONE (12:15)
[2016-07-22] MEDS: NICOTINE 14 MG/24 HR PATCH TD SCH (13:05)
[2016-07-22] MEDS ORDERED: PENICILLIN G POTASSIUM INJ 3,000,000 UNITS in SODIUM CHLORIDE 0.9% INJ 100 ML IV SCH (14:00)
--- NOTE | 2016-07-22 14:26 | PD.VS.CON ---
History of Present Illness Chief Complaint: R > L foot pain, swelling Consult Requested by: Dr. Wilson History of Present Illness 61 yo male with recurrent R>L foot pain and swelling. He reports this happened previously but this episode is worse. No antecendent claudication and no trauma, although he is homeless. He denies chills. He says that his pain is "burning". He has atherosclerotic risk factors of age, HTN, and smoking. Past/Family/Social History Past Medical History HTN ?COPD ?EtOH Tobacco abuse Past Surgical History L hand surgery (abscess?) Social History homeless + tobacco Home Medications Reported Medications Fluticasone-Salmeterol Inh (Advair Diskus Inh)250-50 Mcg/Blist Aer1 Puff INH BID #1 INHALER Ref 0 Rinse mouth after use. 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 Review of Systems Constitutional: DENIES: Fever, Chills Respiratory: COMPLAINS OF: Cough Cardiovascular: DENIES: Chest pain Musculoskeletal: COMPLAINS OF: Joint pain Physical Exam Vitals/I&O Date Time Temp Pulse Resp B/P Pulse Ox O2 Delivery O2 Flow Rate FiO2 07/22/16 12:00 97.9 82 20 94/61 91 07/22/16 08:00 98.5 84 20 139/63 93 07/22/16 07:15 Room Air 07/22/16 04:00 98.3 87 18 124/71 91 07/22/16 00:00 98.5 88 18 129/64 93 07/22/16 00:00 Room Air 07/21/16 20:00 Room Air 07/21/16 20:00 97.4 86 18 122/78 94 07/21/16 16:00 98.6 82 22 111/65 95 07/22/16 07/22/16 07/22/16 07:00 15:00 23:00 Intake Total 703 ml 629 ml Output Total 300 ml Balance 403 ml 629 ml Neuro: alert, oriented, tolerating diet HEENT: NC/AT Neck: no JVD Heart: reg rate Lungs: nonlabored Vascular: Palpable R DP, non palpable L DP Extremities: Mild swelling R foot to mid-calf but no streaking erythema; incision noted LEFT foot with denuded tissue between toes 2 and 3 Laboratory Tests Test 07/22/16 07/22/16 07:27 08:50 Creatinine 0.62 Estimat Glomerular Filtration 132 Rate Vancomycin Level Trough 10.0 Date/Time Procedure Status Source Growth 07/20/16 16:48 Gram Stain - Final Resulted Wound Foot 07/20/16 16:48 Wound Culture - Preliminary Resulted Group A Beta Strep 07/20/16 16:48 Aerobic Blood Culture - Preliminary Resulted Blood Peripheral NO GROWTH IN 2 DAYS 07/20/16 16:48 Anaerobic Blood Culture - Preliminary Resulted Blood Peripheral NO GROWTH IN 2 DAYS Last 48 hours Impressions Aorta w/Runoff CTA 07/21/16 0000 Signed Impressions: Service Date/Time: Thursday, July 21, 2016 12:45 - CONCLUSION: 1. Bilateral high-grade common femoral artery stenoses. 2. Short segment occlusion of the right superficial femoral artery. This would be amenable to endovascular repair. Vlad Braun MD Foot X-Ray 07/20/161634 Signed Impressions: Service Date/Time: Wednesday, July 20, 2016 16:53 - CONCLUSION: Unremarkable examination of the right foot. Brannon Chow MD Chest X-Ray 07/20/16 214 Signed Impressions: Service Date/Time: Wednesday, July 20, 2016 16:48 - CONCLUSION: Normal examination. Brannon Chow MD Assessment and Plan Plan Mild PAD but not causing foot pain. For his PAD, he needs ABIs (ordered). No endovascular intervention indicated at present time given reasonable perfusion and more importantly, I think the patients symptoms are not related to his PAD. Additionally, anatomically he would need femoral endarterectomies (open surgery) not just endovascular therapy. I will take care of his circulation issues. I talked with the patient about smoking cessation as well. Lisandro Locke MD FACS paralegal instructor [place] [phone] Lisandro Locke MD Jul 22, 2016 14:26
[2016-07-22] MEDS ORDERED: MUPIROCIN 2% OINT 22 GM TUBE TOPICAL ONE (17:00)
[2016-07-22] MEDS ORDERED: cefTRIAXone INJ 2,000 MG in SODIUM CHLORIDE 0.9% INJ 100 ML IV SCH (17:00)
--- NOTE | 2016-07-22 17:42 | MB ---
cc: MARIZOL HUTCHISON DPM DATE OF CONSULTATION 07/22/16 CHIEF COMPLAINT Right foot pain. HISTORY OF PRESENT ILLNESS Mr. Garcia is a 61-year-old male patient complaining of severe pain to the right foot. He had a blister which he noted on Tuesday and on Tuesday it became very painful. He came to the emergency department. He said the blister was lanced. This provided some relief, but he continues to have pain and difficulty ambulating to the right lower extremity. He states that he has had cellulitic infections in the past, but they have not been painful. The patient also complains of pain in his neck, back, left hip, foot and right calf. The patient is homeless and walks typically in flip flops. Feet to do have a very unclean appearance. He denies any nausea, vomiting, fever, headaches or chills. PAST MEDICAL HISTORY 1. Hypertension 2. Dyslipidemia, 3. COPD, 4. Alcohol abuse. FAMILY HISTORY Noncontributory. PAST SURGICAL HISTORY 1. Debridement of left hand. 2. Ulcer after an abscess. SOCIAL HISTORY Patient is homeless, does smoke cigarettes but denies alcohol or drug abuse. MEDICATIONS Please see list. ALLERGIES NO KNOWN DRUG ALLERGIES. VITAL SIGNS: Temperature is 97.9 with a T-max 98.6, pulse rate 82 Respiratory rate 20. blood pressure 94/61, pulse ox 91% O2 on room air. LABORATORY DATA White count is 9.3 down from 11.3, hemoglobin 10.1, hematocrit 30.0, platelets 192, INR 0.9. Sodium 140, potassium 3.7, chloride 106, carbon dioxide 25.4, BUN 11. Blood cultures negative x2 days. Gram stain showing group A beta strep. IMAGING STUDIES X-rays are negative for any gas in soft tissue, fractures, dislocations or erosion of the bone. MRI of the right foot is pending. PHYSICAL EXAMINATION On physical exam, the patient has bilateral warmth to the lower extremities, but no palpable DP or PT pulses. Cap fill time less than 3 seconds. Gross sensation is intact. No biomechanical deformities. Left foot has a small ulceration on the lateral malleolus 0.5 cm x 0.5 cm x 0.5. The granular wound bed no erythema. Second digit medially has a dry, crusted eschar - no signs of infection. Right foot with +2 pitting edema to the foot and +1 pitting edema to the ankle and lower leg. Erythema to the lateral half of the foot extending close to the ankle and superficial wound to the lateral aspect of the foot measuring 1.5 cm x 1.5 cm with a central core of a small central core of necrotic tissue measuring 0.25 cm x 0.25 cm. No deep probing. No open wounds. No feeling of fluctuance, other small stable dry eschars on the toes and rear foot. ASSESSMENT/PLAN 1. Right foot ulcerations with cellulitis and pitting edema. - MRI ordered to rule out deep lying abscess or stress fracture. - Weight bear as tolerated in a Cam boot. - Specific instructions placed for wound care including general cleaning of the skin around the wounds and feet - Gram stains show strep infection which often leaves erythema intact for an extended period of time so the redness is not abnormal and the edema is a very pitting type, not a traumatic or infectious type. -We will follow the patient closely while in-house. Thank you for this consultation. Marizol GLEZ/ /4:53 PM /5:20 PM LUCIANO
[2016-07-22] MEDS ORDERED: GADODIAMIDE PF 287 MG/ML 5 ML VIAL (for RAD MRI) IV ONE (19:22)
--- NOTE | 2016-07-22 19:37 | RADRPT ---
EXAM DATE/TIME: 07/22/2016 18:47 [facility] COMPARISON: No previous studies available for comparison. INDICATIONS : Cellulitis. CONTRAST: 14 cc Omniscan (gadodiamide) IV MEDICAL HISTORY : Hypertension. SURGICAL HISTORY : Left hand. ENCOUNTER: Initial ACUITY: 1 week PAIN SCORE: 3/10 LOCATION: Right Foot. TECHNIQUE: Multiplanar, multisequence MRI examination was performed without contrast and after the intravenous a dministration of gadolinium. FINDINGS: The site of the patient's cellulitis is not known to us, however there is no evidence for osteom yelitis or any abscess formation. CONCLUSION: Essentially unremarkable study. Olvin Michel MD on July 22, 2016 at 19:32 Board Certified Radiologist. This report was verified electronically.
[2016-07-22] MEDS: CLINDAMYCIN INJ 600 MG in SODIUM CHLORIDE 0.9% INJ 100 ML IV SCH (22:06)
[2016-07-23 02:35] VITALS: BP 117/67; PULSE 82; RESP 18; TEMP 98.4; O2SAT 93
[2016-07-23] MEDS: oxyCODONE/ACETAMINOPHEN 7.5 MG/325 MG TAB PO PRN ×2 (02:42→08:35)
[2016-07-23] MEDS: SODIUM CHLOR 0.9% 1000 ML INJ 1,000 ML IV SCH (04:10)
[2016-07-23] MEDS: CLINDAMYCIN INJ 600 MG in SODIUM CHLORIDE 0.9% INJ 100 ML IV SCH ×2 (04:16→12:53)
[2016-07-23 08:00] VITALS: BP 107/55; PULSE 83; RESP 16; TEMP 97.9; O2SAT 92
[2016-07-23] MEDS: PRAVASTATIN SOD 40 MG TAB PO SCH (08:34)
[2016-07-23] MEDS: LISINOPRIL 10 MG TAB PO SCH (08:34)
[2016-07-23] MEDS: NICOTINE 14 MG/24 HR PATCH TD SCH (08:34)
[2016-07-23] MEDS: THIAMINE HCL 100 MG TAB PO SCH (08:34)
[2016-07-23] MEDS: ENOXAPARIN SODIUM 30 MG/0.3 ML SYRINGE SQ SCH (08:35)
[2016-07-23] MEDS: SODIUM CHLORIDE 0.9% FLUSH 5 ML FLUSH FLUSH SCH (08:35)
[2016-07-23] MEDS: POTASSIUM CHLORIDE 20 MEQ CONTROLLED RELEASE TAB PO SCH (08:36)
[2016-07-23] MEDS ORDERED: REMOVE OLD PATCH TD SCH (09:00)
[2016-07-23] MEDS ORDERED: VITA100T2 PO (11:08)
[2016-07-23] MEDS ORDERED: LACTCHW3 CHEW (11:08)
[2016-07-23] MEDS ORDERED: CEPH-460 PO (11:08)
[2016-07-23] MEDS ORDERED: OXYC1TAB35 PO (11:08)
[2016-07-23] MEDS ORDERED: CLIN1CAP6 PO (11:08)
--- NOTE | 2016-07-23 11:10 | HHI.PR ---
Objective Vitals Vital Signs Date Time Temp Pulse Resp B/P Pulse Ox O2 Delivery O2 Flow Rate FiO2 07/23/16 08:00 97.9 83 16 107/55 92 07/23/16 02:35 98.4 82 18 117/67 93 07/22/16 23:03 98.2 76 18 100/62 92 07/22/16 20:00 Room Air 07/22/16 19:45 97.1 81 18 124/75 94 07/22/16 16:00 97.7 85 20 117/79 95 07/22/16 12:00 97.9 82 20 94/61 91 I/O 07/22/16 07/22/16 07/22/16 07/23/16 07/23/16 07/23/16 07:00 15:00 23:00 07:00 15:00 23:00 Intake Total 703 ml 1469 ml 625 ml 360 ml Output Total 300 ml 1400 ml 650 ml 1350 ml Balance 403 ml 69 ml -25 ml -990 ml Intake Oral 240 ml 840 ml 240 ml 360 ml IV Total 463 ml 629 ml 385 ml Output Urine Total 300 ml 1400 ml 650 ml 1350 ml # Bowel Movements 0 0 0 0 Result Diagram: 07/21/16 0650 07/22/16 0727 Objective Remarks GENERAL: Alert, oriented 3, NAD. SKIN: Warm and dry. HEAD: Normocephalic. EYES: No scleral icterus. No injection or drainage. NECK: Supple, trachea midline. No JVD or lymphadenopathy. CARDIOVASCULAR: Regular rate and rhythm without murmurs, gallops, or rubs. RESPIRATORY: Breath sounds equal bilaterally. No accessory muscle use. GASTROINTESTINAL: Abdomen soft, non-tender, nondistended. MUSCULOSKELETAL: No cyanosis, or edema. Bilateral foot ulcerative lesions. Wrapped in dressing. BACK: Nontender without obvious deformity. No CVA tenderness. Procedures None. A/P Problem List: (1) PVD (peripheral vascular disease) ICD Code: I73.9 Status: Acute (2) Hypokalemia ICD Code: E87.6 Status: Acute (3) HTN (hypertension) ICD Code: I10 Status: Chronic (4) Hyperlipidemia ICD Code: E78.5 Status: Chronic Assessment and Plan Mr. Garcia is a 61-year-old male with a history of hyperlipidemia, hypertension who was admitted to the hospital due to right foot pain and swelling. Patient was started on vancomycin for suspected cellulitis. - Peripheral vascular disease - Probable superimposed soft tissue infection - CTA with runoff shows bilateral high-grade common femoral artery stenosis, short segment occlusion of the right superficial femoral artery. - Podiatry already consulted. We'll also consult vascular surgery for probable intervention. - Currently on cefepime 2 g every 8 hours, vancomycin. Discontinue Cefepime and Vancomycin. - Wound culture is growing group A beta streptococcus. Started patient on Clindamycin and Penicillin G. We will switch PCN to Ceftriaxone. - Greatly appreciate Dr. Locke's (Vascular surgery) help. - Hypertension - continue lisinopril 10 mg daily - Hyperlipidemia - continue pravastatin 40 mg daily. Full code. Reid. Edie Wilson DO Jul 23, 2016 11:10 am
[2016-07-23 12:00] VITALS: BP 100/60; PULSE 84; RESP 20; TEMP 98; O2SAT 94
--- NOTE | 2016-07-23 13:39 | HHI.DS ---
Discharge Summary Admission Date Jul 20, 2016 at 6:38 pm Discharge Date: Jul 23, 2016 Admitting Diagnosis bilateral feet cellulitis. Hypokalemia. Hyperglycemia. (1) PVD (peripheral vascular disease) ICD Code: I73.9 (2) Hypokalemia ICD Code: E87.6 (3) HTN (hypertension) ICD Code: I10 (4) Hyperlipidemia ICD Code: E78.5 Procedures None. Brief History - From Admission History taken from patient and ED physician. 61-year-old male with a history of hypertension, dyslipidemia, COPD and EtOH abuse presented with complaints of right foot pain/swelling on Tuesday. Patient states that pain as throbbing and radiates throughout his whole foot. Patient is homeless and only walks in flip flops. The lesion was lanced open by PA in ED and covered with [place]edee. He denies any chest pain, shortness of breath, fever or chills. PCP is [facility] CBC/BMP: 07/21/16 0650 07/22/16 0727 Significant Findings Laboratory Tests Test 07/20/16 07/21/16 16:48 06:50 White Blood Count 11.3 TH/MM3 (4.0-11.0) Red Blood Count 3.52 MIL/MM3 2.94 MIL/MM3 (4.50-5.90) (4.50-5.90) Hemoglobin 12.2 GM/DL 10.1 GM/DL (13.0-17.0) (13.0-17.0) Hematocrit 35.4 % 30.0 % (39.0-51.0) (39.0-51.0) Mean Corpuscular Volume 100.5 FL 102.0 FL (80.0-100.0) (80.0-100.0) Mean Corpuscular Hemoglobin 34.6 PG 34.2 PG (27.0-34.0) (27.0-34.0) Neutrophils (%) (Auto) 80.6 % (16.0-70.0) Neutrophils # (Auto) 9.1 TH/MM3 (1.8-7.7) Potassium Level 3.2 MEQ/L (3.5-5.1) Random Glucose 201 MG/DL (74-106) Calcium Level 8.4 MG/DL (8.5-10.1) Aspartate Amino Transf 11 U/L (15-37) (AST/SGOT) Albumin 2.8 GM/DL (3.4-5.0) Monocytes (%) (Auto) 9.9 % (0.0-8.0) Creatinine 0.50 MG/DL (0.60-1.30) Imaging Last Impressions Foot MRI 07/22/16 0000 Signed Impressions: Service Date/Time: July 18:47 - CONCLUSION: Essentially unremarkable study. Olvin Michel MD Aorta w/Runoff CTA 07/21/16 0000 Signed Impressions: Service Date/Time: Thursday, July 21, 2016 12:45 - CONCLUSION: 1. Bilateral high-grade common femoral artery stenoses. 2. Short segment occlusion of the right superficial femoral artery. This would be amenable to endovascular repair. Vlad Braun MD Foot X-Ray 07/20/16 163 Signed Impressions: Service Date/Time: Wednesday, July 20, 2016 16:53 - CONCLUSION: Unremarkable examination of the right foot. Brannon Chow MD Chest X-Ray 07/20/161634 Signed Impressions: Service Date/Time: Wednesday, July 20, 2016 16:48 - CONCLUSION: Normal examination. Brannon Chow MD PE at Discharge GENERAL: Alert, oriented 3, NAD. SKIN: Warm and dry. HEAD: Normocephalic. EYES: No scleral icterus. No injection or drainage. NECK: Supple, trachea midline. No JVD or lymphadenopathy. CARDIOVASCULAR: Regular rate and rhythm without murmurs, gallops, or rubs. RESPIRATORY: Breath sounds equal bilaterally. No accessory muscle use. GASTROINTESTINAL: Abdomen soft, non-tender, nondistended. MUSCULOSKELETAL: No cyanosis, or edema. Bilateral foot ulcerative lesions. Wrapped in dressing. BACK: Nontender without obvious deformity. No CVA tenderness. Pt update on day of discharge Mr. Garcia is doing well. Denies any fever, chills. He has persistent pain on his right foot. I discussed with Vascular surgery as well as podiatry. No intervention planned at this point. We will send patient home with follow up with Vascular surgery. Patient will need to follow up with Wound care clinic. Hospital Course Mr. Garcia is a 61-year-old male with a history of hyperlipidemia, hypertension who was admitted to the hospital due to right foot pain and swelling. Patient was started on vancomycin for suspected cellulitis. - Peripheral vascular disease - Probable superimposed soft tissue infection - CTA with runoff shows bilateral high-grade common femoral artery stenosis, short segment occlusion of the right superficial femoral artery. - Podiatry already consulted. Vascular surgery was also consulted (Dr. Locke). Vascular surgery gave the following opinion: Vascular surgery Mild PAD but not causing foot pain. For his PAD, he needs ABIs (ordered). No endovascular intervention indicated at present time given reasonable perfusion and more importantly, I think the patients symptoms are not related to his PAD. Additionally, anatomically he would need femoral endarterectomies (open surgery) not just endovascular therapy. I will take care of his circulation issues. I talked with the patient about smoking cessation as well. - - Received cefepime 2 g every 8 hours, vancomycin initially. - Wound culture is growing group A beta streptococcus. Patient was discharged on Clindamycin and Keflex. - Hypertension - continue lisinopril 10 mg daily - Hyperlipidemia - continue pravastatin 40 mg daily. Full code. Lovenox while in the hospital. Pt Condition on Discharge: Good Discharge Disposition: Discharge Home Discharge Time: > 30 minutes Discharge Instructions DIET: Follow Instructions for: Heart Healthy Diet Activities you can perform: Regular-No Restrictions Follow up Referrals: Vascular Surgery - 1 Week with Lisandro Locke MD Wound Care Clinic - 3-5 Days New Medications: Cephalexin (Keflex) 500 Mg Cap 500 MG PO Q6H Infection #40 Ref 0 CAP Clindamycin (Clindamycin) 300 Mg Cap 300 MG PO Q6H Infection #40 Ref 0 CAP Lactobacillus Acidophilus (Lactinex) 1 Chew 1 TAB CHEW TID Nutritional Supplement #30 Ref 0 TAB Oxycodone-Acetaminophen (Oxycodone-Acetaminophen) 7.5-325 mg Tab 1 TAB PO Q6H PRN PAIN SCALE 5 TO 10 #28 TAB Thiamine (Vitamin B-1) 100 Mg Tab 100 MG PO DAILY vitamin #30 TAB Continued Medications: Albuterol 8.5 GM Inh (Proair Hfa 8.5 GM Inh) 90 Mcg/Act Aer 90 MCG INH #1 Fluticasone-Salmeterol Inh (Advair Diskus Inh) 250-50 Mcg/Blist Aer 1 PUFF INH BID Rinse mouth after use. #1 Ref 0 INHALER Lisinopril (Lisinopril) 10 Mg Tab 10 MG PO DAILY #30 Ref 0 TAB Lovastatin (Lovastatin) 40 Mg Tab 40 MG PO DAILY #30 Edie Wilson DO Jul 23, 2016 13:39
--- NOTE | 2016-07-23 15:54 | RADRPT ---
EXAM DATE/TIME: 07/22/2016 00:00 [facility] COMPARISON: No previous studies available for comparison. INDICATIONS : BILATERAL FEET CELLULITIS TECHNIQUE: Four-cuff ankle and brachial pressures were obtained. Pulse cuff waveform tracings of the ankles were recorded, and ankle-brachial indices were calculated. PRESSURES (mmHg): Brachial (arm): Right IV SITE Left 115 Ankle: Right 78 Left 87 DEON: Right 0.68 Left 0.76 TBI: Right 0.22 Left 0.72 PULSED CUFF WAVEFORMS: There are blunted pulse wave tracings for skull the right than the left.. The right DEON and TBI abov e suggest significant trifurcation breakup with inflow disease right worse the left. CONCLUSION: Abnormal DEON and TBI right worse the left. Cayetano Gabriel MD FACR on July 23, 2016 at 15:50 Board Certified Radiologist. This report was verified electronically.
[2016-08-17] MEDS ORDERED: ADVA250A INH (16:54)
== END 2016-07-23 16:00 | disposition home or self-care (01) | DRG 603 ==
LOC: NEPE 16:16 → NEDA 18:38 → N04A 21:53
PROVIDERS: ADMIT Hospitalist; ATTEND Hospitalist
PROC: 0H9MXZX Drainage of Right Foot Skin, External Approach, Diagnostic (ICD-10-PCS; principal; 2016-07-20)
DX: L03.115 Cellulitis of right lower limb (principal); L97.519 Non-pressure chronic ulcer of other part of right foot with unspecified severity; I10 Essential (primary) hypertension; L03.116 Cellulitis of left lower limb; I73.9 Peripheral vascular disease, unspecified; L97.529 Non-pressure chronic ulcer of other part of left foot with unspecified severity; B95.0 Streptococcus, group A, as the cause of diseases classified elsewhere; J44.9 Chronic obstructive pulmonary disease, unspecified; E87.6 Hypokalemia; R73.9 Hyperglycemia, unspecified; Z59.0 Homelessness; E78.5 Hyperlipidemia, unspecified; F10.10 Alcohol abuse, uncomplicated; G47.30 Sleep apnea, unspecified; F17.210 Nicotine dependence, cigarettes, uncomplicated; F12.90 Cannabis use, unspecified, uncomplicated; I70.203 Unspecified atherosclerosis of native arteries of extremities, bilateral legs
CPT/HCPCS: 71010; 73630; 73720; 75635; 80048; 80053; 80202; 82565; 85025; 85610; 85730; 86403; 87040; 87070; 87147; 87186; 93922; 96365; 96366; 96375; A9579; J0692; J0696; J1170; J1650; J1885; J2060; J2540; J3370; J7030; J7050; L2114; Q9967

== ENCOUNTER 2016-07-24 20:02 | Emergency (ER) | payer MEDICAID ==
[~2016-07-24] VITALS: Ht 175.3 cm; Wt 72.0 kg
[~2016-07-24 20:02] MED LIST changes: +ADVA250A INH; -AMOX875T2 PO; -B12-1CHW CHEW; -BACT800T5 PO; +CEPH-460 PO; -CHLO25CA2 PO; +CLIN1CAP6 PO; +LACTCHW3 CHEW; +OXYC1TAB35 PO; -WALKER WHEELS/F1 MIS
[2016-07-24 20:04] VITALS: BP 150/72; PULSE 69; RESP 20; TEMP 97.9; O2SAT 96
[2016-07-24] MEDS ORDERED: SODIUM CHLORIDE 0.9% FLUSH 5 ML FLUSH IVF PRN (20:15)
[2016-07-24 20:25] LABS: AUTOMATED NEUTROPHIL # 3.2 TH/MM3 (1.8-7.7); BASOPHIL % 0.7 % (0.0-2.0); EOSINOPHIL # 0.2 TH/MM3 (0-0.4); EOSINOPHIL % 2.7 % (0.0-4.0); HEMATOCRIT 33.9 % (39.0-51.0); LYMPH % 40.7 % (9.0-44.0); LYMPHOCYTE # 2.7 TH/MM3 (1.0-4.8); MEAN CELL VOLUME 101.2 FL (80.0-100.0); MEAN CORPUSCULAR HEMOGLOBIN 36.2 PG (27.0-34.0); MEAN CORPUSCULAR HGB CONC 35.7 % (32.0-36.0); MONO % 7.8 % (0.0-8.0); NEUT % 48.1 % (16.0-70.0); PLATELET COUNT 264 TH/MM3 (150-450); RED BLOOD COUNT 3.35 MIL/MM3 (4.50-5.90); WHITE BLOOD COUNT 6.7 TH/MM3 (4.0-11.0)
[2016-07-24] MEDS ORDERED: SODIUM CHLOR 0.9% 1000 ML INJ 1,000 ML IV ONE (20:30)
--- NOTE | 2016-07-24 20:31 | PD ---
HPI Chief Complaint: Fall Time Seen by Provider: 20:26 Travel History International Travel<30 days: No Contact w/Intl Traveler<30days: No Traveled to known affect area: No History of Present Illness HPI Patient is a 61-year-old male brought into the emergency department by EMS for evaluation after a fall. Patient admits to drinking alcohol all day, he fell and hit his head on the sidewalk. He denies any loss of consciousness or headache. He states he does have pain at the site of laceration. He states his pain is a 5 out of 10. He denies any chest pain, shortness of breath, abdominal pain, neck pain, back pain. Patient has an abrasion to his left knee him up but denies any significant pain. PFSH Past Medical History Hx Anticoagulant Therapy: No Arthritis: No Asthma: No Autoimmune Disease: No Heart Rhythm Problems: No Cancer: No High Cholesterol: Yes Chemotherapy: No Chest Pain: No Congestive Heart Failure: No COPD: Yes Cerebrovascular Accident: No Diabetes: No Diminished Hearing: No Endocrine: No GERD: No Genitourinary: No Headaches: Yes Hiatal Hernia: No Hypertension: Yes Immune Disorder: No Musculoskeletal: Yes Neurologic: Yes Psychiatric: No Reproductive: No Migraines: No Seizures: No Sleep Apnea: Yes Ulcer: No Tetanus Vaccination: < 5 Years Past Surgical History Abdominal Surgery: No Cardiac Surgery: No Ear Surgery: No Endocrine Surgery: No Eye Surgery: No Genitourinary Surgery: No Oral Surgery: No Thoracic Surgery: No Other Surgery: Yes (LEFT HAND, ) Social History Alcohol Use: Yes (8 beers a day, last one last night) Tobacco Use: Yes Substance Use: No Allergies-Medications (Allergen,Severity, Reaction): Coded Allergies: Codeine (Verified Adverse Reaction, Severe, N&V, 07/24/16) *MDRO Multi-Drug Resistant Organism (Verified Adverse Reaction, Unknown, ) MRSA PCR Screen POSITIVE - 12/31/2015 MRSA (blood) - 08/2004 Reported Meds & Prescriptions Reported Meds & Active Scripts Active Lactinex (Lactobacillus Acidophilus) 1 Chew 1 Tab CHEW TID Keflex (Cephalexin) 500 Mg Cap 500 Mg PO Q6H Clindamycin (Clindamycin HCl) 300 Mg Cap 300 Mg PO Q6H Vitamin B-1 (Thiamine HCl) 100 Mg Tab 100 Mg PO DAILY Oxycodone-Acetaminophen 7.5-325 mg Tab 1 Tab PO Q6H PRN Reported Advair Diskus Inh (Fluticasone-Salmeterol Inh) 250-50 Mcg/Blist Aer 1 Puff INH BID Rinse mouth after use. Proair Hfa 8.5 GM Inh (Albuterol Sulfate) 90 Mcg/Act Aer 90 Mcg INH Lovastatin 40 Mg Tab 40 Mg PO DAILY Lisinopril 10 Mg Tab 10 Mg PO DAILY Review of Systems ROS Limitations: Intoxication Except as stated in HPI: all other systems reviewed are Neg Eyes: No: Blurred Vision, Visual changes HENT: No: Headaches, Lightheadedness, Neck Pain Cardiovascular: No: Chest Pain or Discomfort Respiratory: No: Shortness of Breath Gastrointestinal: No: Nausea, Vomiting, Abdominal Pain Skin: Positive Lesions, Positive Other (laceration) Neurologic: No: Focal Abnormalities, Change in Mentation, Sensory Disturbance Physical Exam Narrative GENERAL: Thin, well-developed, alert chronically ill-appearing male. Resting comfortably in no acute distress. SKIN: Warm and dry. Abrasion to left knee. Wound to the lateral aspect of right foot. Left ankle with chronic appearing ulcerations on the medial and lateral aspect. HEAD: Laceration to left eyebrow, superficial abrasion to left cheek. Normocephalic. EYES: Pupils equal and round, pinpoint. Extraocular movements are intact. No scleral icterus. No injection or drainage. ENT: No nasal bleeding or discharge. Mucous membranes pink and moist. NECK: Trachea midline. No JVD. CARDIOVASCULAR: Regular rate and rhythm. No murmur appreciated. RESPIRATORY: No accessory muscle use. Clear to auscultation. Scattered expiratory wheezing in lung bases. GASTROINTESTINAL: Abdomen soft, non-tender, nondistended. Hepatic and splenic margins not palpable. MUSCULOSKELETAL: No obvious deformities. No clubbing. No cyanosis. No edema. NEUROLOGICAL: Awake and alert. No obvious cranial nerve deficits. Motor grossly within normal limits. Normal speech. PSYCHIATRIC: Appropriate mood and affect; insight and judgment normal. Data Data Last Documented VS Vital Signs Date Time Temp Pulse Resp B/P Pulse Ox O2 Delivery O2 Flow Rate FiO2 07/24/16 20:37 97 07/24/16 20:04 97.9 69 20 150/72 Orders Complete Blood Count With Diff (07/24/16 20:09) Comprehensive Metabolic Panel (07/24/16 20:09) Oximetry (07/24/16 20:09) Iv Access Insert/Monitor (07/24/16 20:09) Ecg Monitoring (07/24/16 20:09) Sodium Chloride 0.9% Flush (Ns Flush) (07/24/16 20:15) Alcohol (Ethanol) (07/24/16 20:09) Act Partial Throm Time (Ptt) (07/24/16 20:09) Prothrombin Time / Inr (Pt) (07/24/16 20:09) Ct Brain W/O Iv Contrast(Rout) (07/24/16 ) Ct Facial Bones W/O Iv Cont (07/24/16 ) Sodium Chlor 0.9% 1000 Ml Inj (Ns 1000 M (07/24/16 20:30) Wound Care (07/24/16 20:43) Labs Laboratory Tests Test 07/24/16 20:15 White Blood Count 6.7 TH/MM3 Red Blood Count 3.35 MIL/MM3 Hemoglobin 12.1 GM/DL Hematocrit 33.9 % Mean Corpuscular Volume 101.2 FL Mean Corpuscular Hemoglobin 36.2 PG Mean Corpuscular Hemoglobin 35.7 % Concent Red Cell Distribution Width 16.0 % Platelet Count 264 TH/MM3 Mean Platelet Volume 8.6 FL Neutrophils (%) (Auto) 48.1 % Lymphocytes (%) (Auto) 40.7 % Monocytes (%) (Auto) 7.8 % Eosinophils (%) (Auto) 2.7 % Basophils (%) (Auto) 0.7 % Neutrophils # (Auto) 3.2 TH/MM3 Lymphocytes # (Auto) 2.7 TH/MM3 Monocytes # (Auto) 0.5 TH/MM3 Eosinophils # (Auto) 0.2 TH/MM3 Basophils # (Auto) 0.0 TH/MM3 CBC Comment AUTO DIFF Differential Total Cells 100 Counted Neutrophils % (Manual) 49 % Band Neutrophils % 1 % Lymphocytes % 45 % Monocytes % 3 % Eosinophils % 1 % Basophils % 1 % Neutrophils # (Manual) 3.4 TH/MM3 Differential Comment FINAL DIFF MANUAL Platelet Estimate NORMAL Platelet Morphology Comment NORMAL Prothrombin Time 10.7 SEC Prothromb Time International 1.0 RATIO Ratio Activated Partial 31.7 SEC Thromboplast Time Sodium Level 136 MEQ/L Potassium Level 3.6 MEQ/L Chloride Level 97 MEQ/L Carbon Dioxide Level 28.6 MEQ/L Anion Gap 10 MEQ/L Blood Urea Nitrogen 4 MG/DL Creatinine 0.63 MG/DL Estimat Glomerular Filtration 130 ML/MIN Rate Random Glucose 84 MG/DL Calcium Level 9.2 MG/DL Total Bilirubin 0.3 MG/DL Aspartate Amino Transf 56 U/L (AST/SGOT) Alanine Aminotransferase 14 U/L (ALT/SGPT) Alkaline Phosphatase 86 U/L Total Protein 9.2 GM/DL Albumin 3.1 GM/DL Ethyl Alcohol Level 230 MG/DL [facility] Medical Decision Making Medical Screen Exam Complete: Yes Emergency Medical Condition: Yes Interpretation(s) Vital Signs Date Time Temp Pulse Resp B/P Pulse Ox O2 Delivery O2 Flow Rate FiO2 07/24/16 20:04 97.9 69 20 150/72 96 Differential Diagnosis Contusion versus concussion versus laceration versus hemorrhage versus fracture versus other Narrative Course Patient is a 61-year-old male presenting to emergency department via EMS for evaluation of a head injury after a mechanical fall. Patient admits to drinking alcohol all afternoon. He is alert and oriented, he is neurologically intact. CT of the brain and facial bones is negative for acute injury. Alcohol level is 230 Chemistry is unremarkable Coags normal CBC is unremarkable Patient was encouraged to keep wound clean and dry, cover with Band-Aid. He was advised to follow-up with his primary doctor. He is encouraged to return to emergency department for any new or worsening symptoms. Patient was further encouraged to avoid excessive intake of alcohol. Patient was advised that sutures will need to come out in 7 days. He verbalized understanding of discharge instructions. Patient is stable for discharge. Procedures Procedure Narrative LACERATION LOCATION: Left eyebrow LENGTH: 1.5 cm NUMBER OF STITCHES/ZAY: 3 sutures REPAIR: The area of the laceration was prepped with Betadine and sterilely draped. The laceration was infiltrated with 1% Xylocaine. The wound was copiously irrigated and explored without evidence of foreign body, tendon injury or neurovascular injury. The wound was closed using 4-0 Prolene. This was a 1 layer repair. A sterile dressing was applied. The patient was advised to keep the dressing clean and dry. Patient tolerated the procedure well. Diagnosis Primary Impression: Contusion Qualified Code: S00.93XA - Contusion of head, unspecified part of head, initial encounter Additional Impressions: Alcohol abuse Abrasion Head injury Qualified Code: S09.90XA - Head injury, initial encounter Referrals: Primary Care Physician 1 week Patient Instructions: Care For Your Stitches (ED), Contusion in Adults (ED), Facial Laceration (ED), General Instructions, Head Injury (ED), Stitches Removal (DC) Additional Instructions: Follow-up with your primary doctor Stitches will need to come out in 7 days, your primary doctor can do this or you can return to emergency department Avoid excessive intake of alcohol Maintain adequate fluid intake Acute stitches clean and dry, apply Band-Aid to cover Med/Other Pt SpecificInfo: No Change to Meds Disposition: 01 DISCHARGE HOME Condition: Stable Jennifer Montenegro Jul 24, 2016 20:31 Jennifer Montenegro Jul 24, 2016 20:31
[2016-07-24 20:33] LABS: HEMO FLAGS AUTO DIFF
[2016-07-24 20:34] LABS: APTT (PATIENT) 31.7 SEC (24.3-30.1); PROTHROMBIN TIME - PATIENT 10.7 SEC (9.8-11.6)
--- NOTE | 2016-07-24 20:34 | RADRPT ---
EXAM DATE/TIME: 07/24/2016 20:23 [facility] COMPARISON: CT BRAIN W/O CONTRAST, April 29, 2016, 18:38. INDICATIONS : Trauma; fell and hit head. Laceration above left eye. RADIATION DOSE: 43.36 CTDIvol (mGy) MEDICAL HISTORY : Cardiovascular disease. Chronic obstructive pulmonary disease. Hypertension. SURGICAL HISTORY : None. ENCOUNTER: Initial ACUITY: 1 day PAIN SCALE: 2/10 LOCATION: Left cranial TECHNIQUE: Multiple contiguous axial images were obtained of the head. Using automated exposure control and adj ustment of the mA and/or kV according to patient size, radiation dose was kept as low as reasonably a chievable to obtain optimal diagnostic quality images. FINDINGS: There is stable atrophy. No hemorrhage, infarct, or mass. Osseous structures are intact. No fractures . CONCLUSION: No significant change has occurred. Bayron Patterson MD on July 24, 2016 at 20:32 Board Certified Radiologist. This report was verified electronically.
[2016-07-24 20:37] VITALS: O2SAT 97
--- NOTE | 2016-07-24 20:37 | RADRPT ---
EXAM DATE/TIME: 07/24/2016 20:23 [facility] COMPARISON: CT BRAIN W/O CONTRAST, July 24, 2016, 20:23. INDICATIONS : Trauma, fell and hit head. Laceration above left eye. RADIATION DOSE: 62.65 CTDIvol (mGy) MEDICAL HISTORY : Hypertension. Cardiovascular disease Chronic obstructive pulmonary disease. SURGICAL HISTORY : None. ENCOUNTER: Initial ACUITY: 1 day PAIN SCORE: 2/10 LOCATION: Left facial TECHNIQUE: Volumetric scanning of the facial bones was performed. Using automated exposure control and adjustme nt of the mA and/or kV according to patient size, radiation dose was kept as low as reasonably achiev able to obtain optimal diagnostic quality images. FINDINGS: ORBITS: The orbital and infraorbital osseous structures are intact. The retroconal structures have a normal configuration. No radiopaque foreign bodies are seen. NASAL BONE: The nasal bone and maxillary spine are intact ZYGOMATIC ARCHES: Symmetric without evidence of fracture. SINUSES: The maxillary, ethmoid and frontal sinuses are intact. No air-fluid levels seen. NASAL CAVITY: The nasal septum is intact and midline. The lacrimal ducts are intact. SOFT TISSUES: Mild left periorbital soft tissue swelling. INTRACRANIAL: No intracranial air seen. CRIBIFORM PLATE: Grossly intact. CONCLUSION: 1. Mild left periorbital soft tissue swelling. No fractures are seen. Bayron Patterson MD on July 24, 2016 at 20:35 Board Certified Radiologist. This report was verified electronically.
[2016-07-24 20:53] LABS: ALKALINE PHOSPHATASE 86 U/L (45-117); ALT (GPT) 14 U/L (12-78); ANION GAP 10 MEQ/L (5-15); AST (GOT) 56 U/L (15-37); BICARBONATE 28.6 MEQ/L (21.0-32.0); BLOOD UREA NITROGEN 4 MG/DL (7-18); CHLORIDE 97 MEQ/L (98-107); GLOMERULAR FILTRATION RATE 130 ML/MIN (>89); POTASSIUM 3.6 MEQ/L (3.5-5.1); SODIUM (NA) 136 MEQ/L (136-145); TOTAL BILIRUBIN ADULT 0.3 MG/DL (0.2-1.0)
[2016-07-24 20:58] LABS: BANDS 1 % (0-6); BASOPHILS 1 % (0-2); EOSINOPHILS 1 % (0-4); NEUTROPHIL # MANUAL DIFF 3.4 TH/MM3 (1.8-7.7); PLATELET ESTIMATE SMEAR NORMAL (NORMAL); PLATELET MORPHOLOGY NORMAL (NORMAL); POLYS (SEG NEUTROPHILS) 49 % (16-70); SCAN/DIFF FINAL DIFF MANUAL; WBC DIFF SAMPLE 100
[2016-07-25 06:25] VITALS: BP 140/78; PULSE 68; RESP 18; O2SAT 97
[2016-08-17] MEDS ORDERED: ADVA250A INH (16:54)
== END 2016-07-25 06:33 | disposition home or self-care (01) ==
LOC: NEPE 20:02 → NEPA 07-25 06:33
DX: S01.112A Laceration without foreign body of left eyelid and periocular area, initial encounter (principal); F10.129 Alcohol abuse with intoxication, unspecified; S80.212A Abrasion, left knee, initial encounter; S00.03XA Contusion of scalp, initial encounter; S91.311A Laceration without foreign body, right foot, initial encounter; J44.9 Chronic obstructive pulmonary disease, unspecified; I10 Essential (primary) hypertension; E78.00 Pure hypercholesterolemia, unspecified; S00.81XA Abrasion of other part of head, initial encounter; Z72.0 Tobacco use; Y90.7 Blood alcohol level of 200-239 mg/100 ml
CPT/HCPCS: 12011; 70450; 70486; 80053; 80320; 85007; 85027; 85610; 85730; 99284; J7030

== ENCOUNTER 2016-08-17 14:47 | Inpatient (IN) | payer MEDICAID ==
[~2016-08-17 14:47] MED LIST changes: -ADVA250A INH; -CEPH-460 PO; -CLIN1CAP6 PO; -LACTCHW3 CHEW; -OXYC1TAB35 PO; -VITA100T2 PO
[2016-08-17] MEDS ORDERED: ADVA250A INH ×2 (16:54)
[2016-08-18] VITALS (11 sets, daily range): BP systolic 113–136; BP diastolic 60–82; PULSE 56–82; RESP 18–20; TEMP 97.6–98.1; O2SAT 96–100
[2016-08-18] MEDS ORDERED: METOPROLOL TARTRATE 25 MG TAB PO PRN (06:30)
[2016-08-18] MEDS ORDERED: INSULIN HUMAN REGULAR 1,000 UNITS/10 ML VIAL SQ PRN (06:30)
[2016-08-18] MEDS ORDERED: SUGAMMADEX SODIUM 200 MG/2 ML VIAL IV PUSH ONE ×2 (07:15)
[2016-08-18] MEDS ORDERED: ACETAMINOPHEN 1000 MG/100 ML VIAL IV ONE (07:52)
[2016-08-18] MEDS ORDERED: methylPREDNISolone SOD SUCC 125 MG/2 ML VIAL ONE (07:54)
[2016-08-18] MEDS ORDERED: MIDAZOLAM HCL 2 MG/2 ML VIAL ONE (07:56)
[2016-08-18] MEDS ORDERED: RESP: ALBUTEROL 2.5 MG/IPRATROPIUM 0.5 MG NEB (SCH) ONE (07:57)
[2016-08-18] MEDS ORDERED: LACTATED RINGER'S 1000 ML IV SCH (08:00)
[2016-08-18] MEDS ORDERED: SODIUM CHLORID 0.9% 500 ML IV SCH (08:00)
[2016-08-18] MEDS ORDERED: ceFAZolin 2 GM PREMIX 50 ML ONE (08:19)
[2016-08-18] MEDS ORDERED: IOHEXOL 300 MG/ML 50 ML BTL (for RAD DIAG) OTHER ONE (09:02)
[2016-08-18] MEDS: HEPARIN SODIUM - IV 10,000 UNITS/10 ML VIAL ONE ×4 (09:03→10:09)
[2016-08-18] MEDS ORDERED: THROMBIN (TOPICAL) 20,000 UNIT SPRAY KIT ONE (09:50)
--- NOTE | 2016-08-18 10:49 | HHI.PR ---
Immediate Post Op Note Procedure Date: Aug 18, 2016 Pre Op Diagnosis: PAD, R LE rest pain Post Op Diagnosis: PAD, R LE rest pain Surgeon: Lisandro Locke Barge Captain(s): none Procedure: 1. R iliofemoral TEA w/ patch angioplasty 2. R EIA PHYTOCHEMISTRY PROFESSOR (7mm) Findings: heavy plaque burden in INSTRUMENT PANEL ASSEMBLER, successfully endarterectomized Proximal EIA stenosis, PHYTOCHEMISTRY PROFESSOR with resolution of HD significant lesion; normal pulse in groin after PHYTOCHEMISTRY PROFESSOR Complications: none apparent Specimen(s) removed: R INSTRUMENT PANEL ASSEMBLER plaque - not for pathology Estimated blood loss: 100mL Anesthesia: General Drains: None Fluids: 2000 mL x'oid; 200mL UOP IVF Patient to: PACU Implant/Devices: SEE IMPLANT LOG (if applicable) Date/Time of Procedure: SEE SURGICAL CARE RECORD Lisandro Locke MD Aug 18, 2016 10:49
[2016-08-18] MEDS ORDERED: fentaNYL CITRATE 250 MCG/5 ML AMP ONE (11:21)
[2016-08-18] MEDS ORDERED: PILL SPLITTER OTHER PRN (11:45)
[2016-08-18] MEDS ORDERED: *morphine SULFATE 8 MG/ML PERIprocedure ONLY ONE ×2 (11:50→12:13)
[2016-08-18] MEDS ORDERED: IOHEXOL 300 MG/ML 50 ML BTL (for RAD DIAG) IV ONE (12:00)
[2016-08-18] MEDS ORDERED: NORMOSOL R INJ 1,000 ML IV ONE (12:00)
[2016-08-18] MEDS ORDERED: PHENYLEPHRINE HCL 10 MG/ML VIAL IV ONE (12:00)
[2016-08-18] MEDS ORDERED: IOHEXOL 300 MG/ML 100 ML BTL (for Rad CT) IV ONE (12:00)
[2016-08-18] MEDS ORDERED: PROPOFOL 200 MG/20 ML AMP IV ONE (12:00)
[2016-08-18] MEDS ORDERED: LACTATED RINGER'S 1000 ML INJ 1,000 ML IV ONE (12:00)
[2016-08-18] MEDS ORDERED: DO NOT ADM ANY ANTICOAGULANT DRUGS XX PRN (12:00)
[2016-08-18] MEDS ORDERED: SODIUM CHLOR 0.9% 250 ML INJ 250 ML IV ONE (12:00)
[2016-08-18] MEDS: HYDROmorphone HCL 2 MG TAB PO PRN ×3 (13:53→23:06)
[2016-08-18] MEDS: MORPHINE SULFATE 4 MG/ML INJ IV PRN ×2 (16:22→20:52)
[2016-08-18] MEDS: METOPROLOL TARTRATE 25 MG TAB PO SCH (20:51)
[2016-08-18] MEDS: DOCUSATE SODIUM 100 MG CAP PO SCH (20:51)
[2016-08-18] MEDS ORDERED: BUDESONIDE-FORMOTEROL 160/4.5 MCG INHALER INH SCH (21:00)
[2016-08-18] MEDS ORDERED: ALBUTEROL SULFATE 90 MCG/ACT HFA 8 GM INHALER INH SCH (21:00)
[2016-08-19] VITALS (27 sets, daily range): BP systolic 96–115; BP diastolic 48–67; PULSE 65–104; RESP 12–18; TEMP 97.6–98.6; O2SAT 93–97
[2016-08-19] MEDS: HYDROmorphone HCL 2 MG TAB PO PRN ×4 (04:29→20:11)
[2016-08-19 07:03] LABS: HEMATOCRIT 30.3 % (39.0-51.0); MEAN CELL VOLUME 98.7 FL (80.0-100.0); MEAN CORPUSCULAR HGB CONC 34.5 % (32.0-36.0); PLATELET COUNT 158 TH/MM3 (150-450); RED BLOOD COUNT 3.07 MIL/MM3 (4.50-5.90); RED CELL DISTRIBUTION WIDTH 15.1 % (11.6-17.2); REVIEW FLAG FINAL; WHITE BLOOD COUNT 11.5 TH/MM3 (4.0-11.0)
[2016-08-19 07:11] LABS: BICARBONATE 23.8 MEQ/L (21.0-32.0); POTASSIUM 3.8 MEQ/L (3.5-5.1)
[2016-08-19] MEDS: ASPIRIN 325 MG TAB PO SCH (08:47)
[2016-08-19] MEDS: PRAVASTATIN SOD 40 MG TAB PO SCH (08:47)
[2016-08-19] MEDS: LISINOPRIL 10 MG TAB PO SCH (08:47)
[2016-08-19] MEDS: METOPROLOL TARTRATE 25 MG TAB PO SCH ×2 (08:47→20:11)
[2016-08-19] MEDS: DOCUSATE SODIUM 100 MG CAP PO SCH ×2 (08:47→20:11)
[2016-08-19] MEDS: PANTOPRAZOLE SOD 40 MG DELAYED RELEASE TAB PO SCH (08:47)
[2016-08-19] MEDS: ENOXAPARIN SODIUM 30 MG/0.3 ML SYRINGE SQ SCH (08:48)
--- NOTE | 2016-08-19 10:42 | PD.VS.PN ---
Subjective POD #: 1 Procedure(s): R iliofemoral TEA w/ patch, R EIA FIELD INTERVIEWER Subjective/Hospital Course doing well, no complaints overnight. Skin VAC stopped working so removed on rounds this morning. Foot ok Objective Vitals/I&O Date Time Temp Pulse Resp B/P Pulse Ox O2 Delivery O2 Flow Rate FiO2 08/19/16 06:00 70 08/19/16 05:00 68 08/19/16 04:00 68 08/19/16 04:00 98.0 72 18 104/64 96 08/19/16 03:25 65 08/19/16 02:00 68 08/19/16 01:00 73 08/19/16 00:00 66 08/18/16 23:41 98.0 75 18 113/60 96 08/18/16 23:00 68 08/18/16 22:00 72 08/18/16 21:00 82 08/18/16 20:00 74 08/18/16 20:00 98.0 75 18 113/60 96 08/18/16 19:00 72 08/18/16 18:15 98.1 73 18 136/82 98 08/18/16 17:24 97.8 56 18 118/70 96 08/18/16 17:23 75 08/18/16 16:57 99 Nasal Cannula 2.00 08/18/16 15:30 97.9 69 16 117/61 99 Nasal Cannula 2 08/18/16 15:00 68 14 120/72 99 Nasal Cannula 2 08/18/16 14:00 73 12 119/69 98 08/18/16 13:15 73 15 124/70 98 Nasal Cannula 3 08/18/16 13:00 74 14 120/76 98 Nasal Cannula 3 08/18/16 12:45 75 15 112/72 97 Nasal Cannula 3 08/18/16 12:30 74 14 122/63 96 Nasal Cannula 3 08/18/16 12:15 76 12 107/68 96 Nasal Cannula 3 08/18/16 12:00 74 12 109/65 95 Nasal Cannula 3 08/18/16 11:45 76 12 105/64 94 Nasal Cannula 3 08/18/16 11:30 77 15 107/66 95 Nasal Cannula 3 08/18/16 11:14 97.6 90 16 112/69 97 Nasal Cannula 3 Exam: R groin wound c/d/i Strong Doppler signal R foot PT/DP Laboratory Laboratory Tests Test 08/19/16 05:10 White Blood Count 11.5 Red Blood Count 3.07 Hemoglobin 10.5 Hematocrit 30.3 Mean Corpuscular Volume 98.7 Mean Corpuscular Hemoglobin 34.0 Mean Corpuscular Hemoglobin 34.5 Concent Red Cell Distribution Width 15.1 Platelet Count 158 Mean Platelet Volume 9.3 Sodium Level 136 Potassium Level 3.8 Chloride Level 104 Carbon Dioxide Level 23.8 Anion Gap 8 Blood Urea Nitrogen 12 Creatinine 0.53 Estimat Glomerular Filtration 159 Rate Random Glucose 89 Calcium Level 8.7 Assessment and Plan Plan POD #1, doing well Normalize [place] out CV meds Discharge Planning d/c tomorrow. Case management consulted Lisandro Locke MD Aug 19, 2016 10:42
[2016-08-19] MEDS: MORPHINE SULFATE 4 MG/ML INJ IV PRN ×3 (12:02→22:53)
[2016-08-20] VITALS (17 sets, daily range): BP systolic 92–118; BP diastolic 58–70; PULSE 66–84; RESP 18; TEMP 97.9–98.4; O2SAT 92–97
[2016-08-20] MEDS: MORPHINE SULFATE 4 MG/ML INJ IV PRN ×2 (03:23→11:22)
[2016-08-20] MEDS: HYDROmorphone HCL 2 MG TAB PO PRN ×3 (03:25→13:49)
[2016-08-20] MEDS: METOPROLOL TARTRATE 25 MG TAB PO SCH (08:57)
[2016-08-20] MEDS: DOCUSATE SODIUM 100 MG CAP PO SCH (08:57)
[2016-08-20] MEDS: ASPIRIN 325 MG TAB PO SCH (08:58)
[2016-08-20] MEDS: PANTOPRAZOLE SOD 40 MG DELAYED RELEASE TAB PO SCH (08:58)
[2016-08-20] MEDS: PRAVASTATIN SOD 40 MG TAB PO SCH (08:58)
[2016-08-20] MEDS: ENOXAPARIN SODIUM 30 MG/0.3 ML SYRINGE SQ SCH (08:58)
[2016-08-20] MEDS: LISINOPRIL 10 MG TAB PO SCH (08:58)
--- NOTE | 2016-08-20 09:22 | PD.VS.DC ---
Discharge Summary Admission Date: Aug 18, 2016 at 05:44 Discharge Date: Aug 20, 2016 Admission Diagnosis: (1) PVD (peripheral vascular disease) Discharge Diagnosis: (1) PVD (peripheral vascular disease) Status: Chronic Brief History from admission Pt is a pleasant 61/M that was admitted to the hospital with a HX of PVD who c/ o R LE rest pain Procedure(s): R iliofemoral TEA w/ patch, R EIA CLINICAL REHAB SPECIALIST Significant Findings GENERAL: GCS 15, NAD, A&OX3, pleasant 61/M SKIN: Warm and dry. Incision to right groin intact with slight erythema around the incision line NO swelling drainage or odor noted. NECK: No JVD CARDIOVASCULAR: +S1,S2, RRR RESPIRATORY: Breath sounds equal bilaterally. No accessory muscle use. GASTROINTESTINAL: Abdomen soft, non-tender, nondistended. MUSCULOSKELETAL: No cyanosis, or edema. Strong phasic DP signals heard via doppler, LE warm to touch with motor intact Laboratory Tests Test 08/19/16 05:10 White Blood Count 11.5 TH/MM3 (4.0-11.0) Red Blood Count 3.07 MIL/MM3 (4.50-5.90) Hemoglobin 10.5 GM/DL (13.0-17.0) Hematocrit 30.3 % (39.0-51.0) Creatinine 0.53 MG/DL (0.60-1.30) Hospital Course: Pt was admitted for R LE rest pain Surgical intervention needed Pt is S/P R iliofemoral TEA w/ patch, R EIA CLINICAL REHAB SPECIALIST that was done on 08/18/16 Pt has done well post op and is ready for D/C today Will follow -up with pt in our OPC in 2 weeks Allergies Coded Allergies Type Severity Reaction Last Updated Verified Codeine Adverse Reaction Severe N&V 07/24/16 Yes *MDRO Multi-Drug Resistant Organism Adverse Reaction Unknown 07/24/16 Yes 08/18///// 06:00 18:00 06:00 18:00 06:00 18:00 Intake Total 2000 ml 830 ml 1200 ml Output Total 350 ml 1000 ml Balance 1650 ml 830 ml 200 ml Intake Oral 480 ml 1200 ml Packed Cells 350 ml Other 2000 ml Output Urine Total 250 ml 1000 ml Estimated Blood Loss 100 ml # Voids 5 # Bowel Movements 2 Laboratory Tests Test 08/18/16 08/19/16 06:26 05:10 Blood Type A NEGATIVE Antibody Screen NEGATIVE Blood Bank Comment White Blood Count 11.5 TH/MM3 Red Blood Count 3.07 MIL/MM3 Hemoglobin 10.5 GM/DL Hematocrit 30.3 % Mean Corpuscular Volume 98.7 FL Mean Corpuscular Hemoglobin 34.0 PG Mean Corpuscular Hemoglobin 34.5 % Concent Red Cell Distribution Width 15.1 % Platelet Count 158 TH/MM3 Mean Platelet Volume 9.3 FL Sodium Level 136 MEQ/L Potassium Level 3.8 MEQ/L Chloride Level 104 MEQ/L Carbon Dioxide Level 23.8 MEQ/L Anion Gap 8 MEQ/L Blood Urea Nitrogen 12 MG/DL Creatinine 0.53 MG/DL Estimat Glomerular Filtration 159 ML/MIN Rate Random Glucose 89 MG/DL Calcium Level 8.7 MG/DL Procedure Category Date Status Time Type And Screen BBK 08/18/16 Complete 06:09 Lactated Ringer's MED 08/18/16 In Process 1000 Ml Inj (Lr 1000 M 08:00 Sodium Chlorid 0.9% MED 08/18/16 Complete 500 Ml Inj (Ns 500 M 08:00 Insulin Human Regular MED 08/18/16 Complete Inj (Novolin R Inj 06:30 Metoprolol Tartrate MED 08/18/16 Complete (Lopressor) 06:30 Sugammadex Inj MED 08/18/16 Complete ([place] Inj) 07:15 Acetaminophen Inj MED 08/18/16 Complete (Ofirmev Inj) 07:52 Methylprednisolone So MED 08/18/16 Complete Succ Inj (Solumedr 07:54 Midazolam Inj (Versed MED 08/18/16 Complete Inj) 07:56 Albuterol-Ipratropium MED 08/18/16 Complete Neb (Duoneb Neb) 07:57 Heparin Inj (Heparin MED 08/18/16 Complete Inj) 08:19 Cefazolin 2 Gm Premix MED 08/18/16 Complete (Ancef 2 Gm Premix 08:19 Iohexol 300 Inj MED 08/18/16 Complete (Omnipaque 300 Inj) 09:02 Thrombin Top [place] MED 08/18/16 Complete (Thrombin Top [place]) 09:50 Admit To Inpatient ADMITTING 08/18/16 Transmitted Code Status CODE 08/18/16 Transmitted 10:49 Vital Signs (Adult) ADARSH 08/18/16 Complete 10:49 Countersinker / ADARSH 08/18/16 In Process Telemetry 10:49 Activity Bed Rest ADARSH 08/18/16 In Process 10:49 ^ Precautions ADARSH 08/18/16 In Process 10:49 ^ Vac Dressing To Be ADARSH 08/18/16 In Process Used 10:49 Diet Heart Healthy DIET 08/18/16 Transmitted Lunch Basic Metabolic Panel LAB 08/19/16 Complete (Bmp) 06:00 Cbc No Diff, Includes LAB 08/19/16 Complete Plts 06:00 Case Management CONS 08/18/16 Transmitted Consult Consult Pt Eval & PT 08/18/16 Logged Treat 10:49 Morphine Inj MED 08/18/16 In Process (Morphine Inj) 11:00 Docusate Sodium MED 08/18/16 In Process (Colace) 21:00 Inpatient ADMITTING 08/18/16 Transmitted Certification Albuterol Hfa Inh MED 08/18/16 In Process (Proair Hfa Inh) 21:00 Lisinopril (Prinivil) MED 08/19/16 In Process 09:00 Pravastatin MED 08/19/16 In Process (Pravachol) 09:00 Budeson-Formot MED 08/18/16 In Process 160-4.5 Mg Inh 21:00 Consult Pt Eval & PT 08/18/16 Complete Treat 10:52 Activity Oob With ADARSH 08/19/16 In Process Assistance 06:00 Aspirin (Aspirin) MED 08/19/16 In Process 09:00 Pantoprazole MED 08/19/16 In Process (Protonix) 09:00 Metoprolol Tartrate MED 08/18/16 In Process (Lopressor) 21:00 Hydromorphone MED 08/18/16 Logged (Dilaudid) 11:00 Fentanyl Inj MED 08/18/16 Complete (Fentanyl Inj) 11:21 Enoxaparin Inj MED 08/19/16 In Process (Lovenox Inj) 10:08 Pill Splitter (Pill MED 08/18/16 In Process Splitter) 11:45 Misc Nursing MED 08/18/16 Complete Information 12:00 *Morphine Inj MED 08/18/16 Complete (*Morphine Inj 11:50 *Morphine Inj MED 08/18/16 Complete (*Morphine Inj 12:13 Am Admit Pre Op Care [facility] 08/18/16 Complete Class [facility] Complete MIN General/Pacu [facility] 08/18/16 Complete Post Anesthesia Oxygen [facility] 08/18/16 Complete Pacu Cpcu Holding [facility] 08/18/16 Complete Hourly Remove Urinary ADARSH 08/19/16 In Process Catheter 10:40 Consult Pt Eval & Tx PT 08/19/16 Complete OOB 10:40 Attending Discharge DISCHARGE 08/20/16 Transmitted Order Vital Signs Date Time Temp Pulse Resp B/P Pulse Ox O2 Delivery O2 Flow Rate FiO2 08/20/16 07:45 98.3 71 18 118/66 97 08/20/16 07:01 84 08/20/16 05:00 70 08/20/16 04:00 70 08/20/16 03:00 84 08/20/16 03:00 98.4 72 18 100/70 92 08/20/16 02:00 68 08/20/16 01:00 72 08/20/16 00:00 82 08/19/16 23:00 72 08/19/16 23:00 98.1 73 16 101/67 96 08/19/16 22:00 92 08/19/16 21:00 104 08/19/16 20:00 86 08/19/16 19:15 98.6 83 12 109/66 93 08/19/16 19:00 80 08/19/16 17:01 68 08/19/16 16:45 18 08/19/16 16:00 72 08/19/16 15:15 97.6 73 18 99/59 96 08/19/16 15:00 72 08/19/16 14:00 68 08/19/16 13:01 80 08/19/16 12:10 18 08/19/16 12:00 70 08/19/16 11:15 98.2 75 16 96/64 93 08/19/16 11:00 72 08/19/16 10:01 70 08/19/16 09:00 78 08/19/16 08:15 97.9 79 18 115/48 97 08/19/16 08:00 72 08/19/16 07:00 76 08/19/16 06:00 70 08/19/16 05:00 68 08/19/16 04:00 68 08/19/16 04:00 98.0 72 18 104/64 96 08/19/16 03:25 65 08/19/16 02:00 68 08/19/16 01:00 73 08/19/16 00:00 66 08/18/16 23:41 98.0 75 18 113/60 96 08/18/16 23:00 68 08/18/16 22:00 72 08/18/16 21:00 82 08/18/16 20:00 74 08/18/16 20:00 98.0 75 18 113/60 96 08/18/16 19:00 72 08/18/16 18:15 98.1 73 18 136/82 98 08/18/16 17:24 97.8 56 18 118/70 96 08/18/16 17:23 75 08/18/16 16:57 99 Nasal Cannula 2.00 08/18/16 15:30 97.9 69 16 117/61 99 Nasal Cannula 2 08/18/16 15:00 68 14 120/72 99 Nasal Cannula 2 08/18/16 14:00 73 12 119/69 98 08/18/16 13:15 73 15 124/70 98 Nasal Cannula 3 08/18/16 13:00 74 14 120/76 98 Nasal Cannula 3 08/18/16 12:45 75 15 112/72 97 Nasal Cannula 3 08/18/16 12:30 74 14 122/63 96 Nasal Cannula 3 08/18/16 12:15 76 12 107/68 96 Nasal Cannula 3 08/18/16 12:00 74 12 109/65 95 Nasal Cannula 3 08/18/16 11:45 76 12 105/64 94 Nasal Cannula 3 08/18/16 11:30 77 15 107/66 95 Nasal Cannula 3 08/18/16 11:14 97.6 90 16 112/69 97 Nasal Cannula 3 08/18/16 06:41 97.6 79 20 131/77 100 Discharge Condition: Good Discharge Disposition: Discharge Home Discharge Instructions: Follow up in 2 weeks in our OPC Call the office to report any new onset swelling, redness, drainage or odor from incision site Keep the right groin incision clean and dry Do not apply any ointments or creams to the right groin incision site as it may loosen the surgical glue. Toshia CAMARILLO [facility] [phone] Any questions or concerns: Call [facility] at [facility] [phone] Toshia Trivedi Aug 20, 2016 09:22
--- NOTE | 2016-08-31 10:25 | MP ---
cc: BHARGAV LOCKE MD RE-DO DICTATION DATE OF SURGERY August 18, 2016 PREOPERATIVE DIAGNOSES Rest pain. Peripheral vascular disease. POSTOPERATIVE DIAGNOSES Rest pain. Peripheral vascular disease. PROCEDURE 1. Right iliofemoral thromboendarterectomy with patch angioplasty. 2. Right external iliac artery angioplasty. ATTENDING SURGEON Bhargav Locke MD RESIDENT SURGEON None. ANESTHESIA General. INDICATIONS Mr. Garcia is a gentleman with right lower extremity rest pain and multilevel occlusive disease. He is taken to the operating room for groin reconstruction and angiogram. Intraoperatively it was found that he had a poor inflow and this was successfully treated with angioplasty. DESCRIPTION OF PROCEDURE Informed consent was obtained from the patient. He was taken to the operating room and placed supine on the operating room table. An appropriate time-out was taken to identify the patient, the operative site and the planned procedure. The administration of antibiotics was completed prior to the skin incision and will be discontinued after a single preoperative dose. Everyone in the room agreed with the time-out and we proceeded. He was prepped from the nipples to the toes. A vertical incision was made in the patient's right groin, carried down to the subcutaneous tissue with electrocautery. The external iliac artery was identified and dissected free along with the proximal profunda, SFA and side branches from the common femoral artery. All these were encircled with vessel loops. At this point the patient was systemically heparinized and throughout the remainder of the case the ACT was kept greater than 250. Proximal and distal control of the external iliac artery, profunda and SFA were obtained respectively with profunda clamps and a longitudinal arteriotomy was made with an 11 blade, extended with [place] scissors. The artery was endarterectomized from the external iliac artery down to the profunda. A nice endpoint was obtained. The side branches were preserved. Bovine pericardial patch was brought up onto the field and the patch was sewn on with a running 5-0 Prolene suture. The clamps were released. He had a nice reasonable pulse in the groin, although it was somewhat diminished and strong Doppler signals in the outflow. A 21-gauge micropuncture needle was used to access the patch, exchanged using Seldinger technique through the micropuncture sheath through which a 0.025 Glidewire was introduced. The micropuncture sheath was exchanged for a 6-Urdu sheath and a retrograde iliac angiogram was obtained. The Stafford was exchanged for a STORQ wire and the proximal external iliac artery was angioplastied with a 7-mm balloon and the completion angiogram showed excellent result. No recoil, extravasation or flow-limiting dissection. The wire, catheter and sheath were removed and the patchotomy was closed with 5-0 Prolene suture. The wound was irrigated, made hemostatic and closed with 2-0 Polysorb, 3-0 Polysorb and 4-0 Monocryl. The sponge and needle counts were correct at the end of the case. I was present and scrubbed for the entire procedure. MD TAYLOR Emerson/KASSY /6:17 PM /10:10 AM MTDDonald
== END 2016-08-20 14:40 | disposition home or self-care (01) | DRG 272 ==
LOC: HSDI 08-18 05:44 → HCVR 08-18 15:45 → HCIN 08-18 17:50
PROVIDERS: ADMIT Surgery; ATTEND Surgery
PROC: 04CH0ZZ Extirpation of Matter from Right External Iliac Artery, Open Approach (ICD-10-PCS; 2016-08-18)
PROC: 04UH0KZ Supplement Right External Iliac Artery with Nonautologous Tissue Substitute, Open Approach (ICD-10-PCS; 2016-08-18)
PROC: 047H3ZZ Dilation of Right External Iliac Artery, Percutaneous Approach (ICD-10-PCS; 2016-08-18)
PROC: B41F1ZZ Fluoroscopy of Right Lower Extremity Arteries using Low Osmolar Contrast (ICD-10-PCS; 2016-08-18)
PROC: 04CK0ZZ Extirpation of Matter from Right Femoral Artery, Open Approach (ICD-10-PCS; principal; 2016-08-18 08:06)
PROC: 04UK0KZ Supplement Right Femoral Artery with Nonautologous Tissue Substitute, Open Approach (ICD-10-PCS; 2016-08-18 08:06)
DX: I70.221 Atherosclerosis of native arteries of extremities with rest pain, right leg (principal); J44.9 Chronic obstructive pulmonary disease, unspecified; I10 Essential (primary) hypertension; E78.5 Hyperlipidemia, unspecified; F17.210 Nicotine dependence, cigarettes, uncomplicated; Z88.5 Allergy status to narcotic agent
CPT/HCPCS: 75710; 80048; 85027; 86850; 86900; 86901; 94664; C1725; C1769; J0131; J0690; J1644; J1650; J2250; J2270; J2370; J2930; J3010; J7050; J7120; Q9967

== ENCOUNTER 2016-08-24 16:32 | Emergency (ER) | payer MEDICAID ==
[~2016-08-24] VITALS: Ht 175.3 cm; Wt 160.0 kg
[~2016-08-24 16:32] MED LIST changes: +ADVA250A INH
[2016-08-24 16:51] VITALS: BP 143/70; PULSE 77; RESP 14; TEMP 98.3; O2SAT 97
--- NOTE | 2016-08-24 17:03 | PD ---
HPI Chief Complaint: Pain: Acute or Chronic Time Seen by Provider: 16:50 Travel History International Travel<30 days: No Contact w/Intl Traveler<30days: No Traveled to known affect area: No History of Present Illness HPI 61-year-old male who is a chronic alcoholic and homeless came to the emergency room for history of right groin pain. Patient had a femoral bypass surgery done by Dr. Locke last week. He was discharged home 4 days ago. He is back because he is in pain. Meanwhile he is very intoxicated. He does not appear to be in any significant distress. PFSH Past Medical History Narrative Medical List of his past medical, surgical, social and family history was reviewed from the nursing note. Hx Anticoagulant Therapy: No Arthritis: No Asthma: No Autoimmune Disease: No Heart Rhythm Problems: No Cancer: No Cardiovascular Problems: No High Cholesterol: Yes Chemotherapy: No Chest Pain: No Congestive Heart Failure: No COPD: Yes Cerebrovascular Accident: No Diabetes: No Diminished Hearing: No Endocrine: No GERD: No Genitourinary: No Headaches: Yes Hepatitis: No Hiatal Hernia: No Hypertension: Yes Immune Disorder: No Musculoskeletal: No Neurologic: No Psychiatric: No Reproductive: No Respiratory: Yes (COPD/emphysema) Migraines: No Seizures: No Sleep Apnea: Yes Thyroid Disease: No Ulcer: No Past Surgical History Abdominal Surgery: No AICD: No Cardiac Surgery: No Ear Surgery: No Endocrine Surgery: No Eye Surgery: No Genitourinary Surgery: No Gynecologic Surgery: No Joint Replacement: No Oral Surgery: Yes (tonsillectomy) Pacemaker: No Thoracic Surgery: No Other Surgery: Yes (LEFT HAND, ) Social History Alcohol Use: Yes (8 beers a day, last one last night) Tobacco Use: Yes Substance Use: Yes (marijuana ) Allergies-Medications (Allergen,Severity, Reaction): Coded Allergies: Codeine (Verified Adverse Reaction, Severe, N&V, 07/24/16) *MDRO Multi-Drug Resistant Organism (Verified Adverse Reaction, Unknown, ) MRSA PCR Screen POSITIVE - 12/31/2015 MRSA (blood) - 08/2004 Comments List of his allergies reviewed from the nursing note. Reported Meds & Prescriptions Reported Meds & Active Scripts Active Reported Advair Diskus Inh (Fluticasone-Salmeterol Inh) 250-50 Mcg/Blist Aer 2 Puff INH BID Rinse mouth after use. Proair Hfa 8.5 GM Inh (Albuterol Sulfate) 90 Mcg/Act Aer 90 Mcg INH BID Lovastatin 40 Mg Tab 40 Mg PO DAILY Lisinopril 10 Mg Tab 10 Mg PO DAILY Narrative Medication List of his home medications reviewed from the nursing note. Review of Systems Except as stated in HPI: all other systems reviewed are Neg Physical Exam Narrative GENERAL: Acute alcohol intoxication, slurred speech but answering questions appropriately. SKIN: Focused skin assessment warm/dry. HEAD: Atraumatic. Normocephalic. EYES: Pupils equal and round. No scleral icterus. No injection or drainage. ENT: No nasal bleeding or discharge. Mucous membranes pink and moist. NECK: Trachea midline. No JVD. CARDIOVASCULAR: Regular rate and rhythm. No murmur appreciated. RESPIRATORY: No accessory muscle use. Clear to auscultation. Breath sounds equal bilaterally. GASTROINTESTINAL: Abdomen soft, non-tender, nondistended. Hepatic and splenic margins not palpable. MUSCULOSKELETAL: No obvious deformities. No clubbing. No cyanosis. No edema. NEUROLOGICAL: Intoxicated but answering questions appropriately. No obvious cranial nerve deficits. Motor grossly within normal limits. Slurred speech. PSYCHIATRIC: Appropriate mood and affect; insight and judgment normal. Data Data Last Documented VS Vital Signs Date Time Temp Pulse Resp B/P Pulse Ox O2 Delivery O2 Flow Rate FiO2 08/24/16 17:58 16 139/78 96 08/24/16 16:51 98.3 77 Orders Heparin-D5w Inj (Heparin-D5w Inj) (08/24/16 17:30) [facility] Medical Decision Making Medical Screen Exam Complete: Yes Emergency Medical Condition: Yes Medical Record Reviewed: Yes Differential Diagnosis Wound infection Narrative Course 5:[address] Cid was in the department and came and saw the patient. Please refer to his note. He is comfortable discharging the patient home. Procedures EKG Prior to Arrival: No Physician Communication Physician Communication Dr. iCd Diagnosis Primary Impression: Post-op pain Additional Impression: Alcohol intoxication Qualified Code: F10.129 - Alcohol intoxication, with unspecified complication Referrals: Lisandro Locke MD 1 week Primary Care Physician 2 days Additional Instructions: Follow-up with your vascular surgeon. His number and address has been provided to you on the discharge paper. Drink alcohol in moderation. Disposition: 01 DISCHARGE HOME Condition: Stable Isreal,Shravanti R. MD Aug 24, 2016 17:03
[2016-08-24] MEDS ORDERED: HEPARIN-D5W INJ 250 ML IV SCH (17:30)
[2016-08-24 17:58] VITALS: BP 139/78
== END 2016-08-24 18:01 | disposition home or self-care (01) ==
LOC: NEPE 16:32
DX: G89.18 Other acute postprocedural pain (principal); F10.129 Alcohol abuse with intoxication, unspecified; I10 Essential (primary) hypertension; E78.00 Pure hypercholesterolemia, unspecified; G47.30 Sleep apnea, unspecified; Z72.0 Tobacco use; Z59.0 Homelessness; Z87.09 Personal history of other diseases of the respiratory system
CPT/HCPCS: 99283

== ENCOUNTER 2016-08-29 13:46 | Emergency (ER) | payer MEDICAID ==
[~2016-08-29] VITALS: Ht 175.3 cm; Wt 72.5 kg
[2016-08-29 13:48] VITALS: BP 127/78; PULSE 84; RESP 15; TEMP 98.7; O2SAT 98
--- NOTE | 2016-08-29 13:59 | PD ---
Physical Exam Date Seen by Provider: Aug 29, 2016 Time Seen by Provider: 13:56 Narrative 61 YOWM C/O R GROIN PAIN AND SWELLING. SURGERY 1.5 WEEKS AGO VASCULAR SURGERY BY DR WISDOM. NO CP/SOB. NO F/C,N/V/D VSS AWAITING BED PLACEMENT Data Data Last Documented VS Vital Signs Date Time Temp Pulse Resp B/P Pulse Ox O2 Delivery O2 Flow Rate FiO2 08/29/16 13:48 98.7 84 15 127/78 98 MDM Medical Record Reviewed: Yes Supervised Visit with CAITLIN: Yes Martin Mary Aug 29, 2016 13:59
--- NOTE | 2016-08-29 14:27 | PD ---
HPI Chief Complaint: Wound/Suture/Staple Re-Check Time Seen by Provider: 14:06 Travel History International Travel<30 days: No Contact w/Intl Traveler<30days: No Traveled to known affect area: No History of Present Illness HPI This patient is here for evaluation of the surgical site in his right groin. Patient had vascular surgery approximately 2 weeks ago. A few days ago he noticed some swelling there. No drainage or bleeding or fever or acute injury. Severity is mild to moderate. No alleviating factors PFSH Past Medical History Hx Anticoagulant Therapy: No Arthritis: No Asthma: No Autoimmune Disease: No Heart Rhythm Problems: No Cancer: No Cardiovascular Problems: No High Cholesterol: Yes Chemotherapy: No Chest Pain: No Congestive Heart Failure: No COPD: Yes Cerebrovascular Accident: No Diabetes: No Diminished Hearing: No Endocrine: No GERD: No Genitourinary: No Headaches: Yes Hepatitis: No Hiatal Hernia: No Hypertension: Yes (chol) Immune Disorder: No Medical other: Yes (pancreatitis) Musculoskeletal: No Neurologic: No Psychiatric: No Reproductive: No Respiratory: Yes (COPD) Migraines: No Seizures: No Sleep Apnea: Yes Thyroid Disease: No Ulcer: No Tetanus Vaccination: < 5 Years Influenza Vaccination: Yes Past Surgical History Abdominal Surgery: No AICD: No Cardiac Surgery: No Ear Surgery: No Endocrine Surgery: No Eye Surgery: No Genitourinary Surgery: No Gynecologic Surgery: No Joint Replacement: No Oral Surgery: Yes (tonsillectomy) Pacemaker: No Thoracic Surgery: No Other Surgery: Yes (LEFT HAND, ) Social History Alcohol Use: Yes (10 beer daily) Tobacco Use: Yes (2 pack per day) Substance Use: No Allergies-Medications (Allergen,Severity, Reaction): Coded Allergies: Codeine (Verified Adverse Reaction, Severe, N&V, 08/29/16) *MDRO Multi-Drug Resistant Organism (Verified Adverse Reaction, Unknown, ) MRSA PCR Screen POSITIVE - 12/31/2015 MRSA (blood) - 08/2004 Reported Meds & Prescriptions Reported Meds & Active Scripts Active Reported Advair Diskus Inh (Fluticasone-Salmeterol Inh) 250-50 Mcg/Blist Aer 2 Puff INH BID Rinse mouth after use. Proair Hfa 8.5 GM Inh (Albuterol Sulfate) 90 Mcg/Act Aer 90 Mcg INH BID Lovastatin 40 Mg Tab 40 Mg PO DAILY Lisinopril 10 Mg Tab 10 Mg PO DAILY Review of Systems General / Constitutional: No: Fever HENT: No: Headaches Cardiovascular: No: Chest Pain or Discomfort Respiratory: No: Cough Gastrointestinal: No: Vomiting Physical Exam Narrative GENERAL: Well-nourished, well-developed patient in no apparent distress. SKIN: Focused skin assessment reveals no rash and nodules. Skin is Warm and dry. HEAD: Atraumatic. Normocephalic. EYES: Pupils equal and round. No scleral icterus. No injection or drainage. ENT: No nasal bleeding or discharge. Mucous membranes pink and moist. NECK: Trachea midline. No JVD. CARDIOVASCULAR: Regular rate and rhythm. No murmur appreciated. RESPIRATORY: No accessory muscle use. Clear to auscultation. Breath sounds equal bilaterally. GASTROINTESTINAL: Abdomen soft, non-tender, nondistended. Hepatic and splenic margins not palpable. Right inguinal region is examined. His incision shows no dehiscence or sign of infection. There is a golf ball sized swollen area under the center of the incision. It appears to be a hernia but is readily reducible. There is no incarceration or strangulation evident. It is not tender MUSCULOSKELETAL: No obvious deformities. No clubbing. No cyanosis. No edema. NEUROLOGICAL: Awake and alert. No obvious cranial nerve deficits. Motor grossly within normal limits. Normal speech. PSYCHIATRIC: Appropriate mood and affect; insight and judgment normal. Data Data Last Documented VS Vital Signs Date Time Temp Pulse Resp B/P Pulse Ox O2 Delivery O2 Flow Rate FiO2 08/29/16 14:05 17 08/29/16 13:48 98.7 84 127/78 98 MDM Medical Decision Making Medical Screen Exam Complete: Yes Emergency Medical Condition: Yes Medical Record Reviewed: Yes Differential Diagnosis Hernia, incarceration, dehiscence Narrative Course I have reviewed the patient's electronic medical record. Reviewed his ER visit from a few days ago in which he was acutely intoxicated This patient has a right inguinal hernia, likely incisional given the location perfectly centered in the incision It's easily reducible He has appointment with the surgeon coincidently in 4 days Discussed measures to decrease intra-abdominal pressure Diagnosis Primary Impression: Right inguinal hernia Additional Instructions: Follow-up with your surgeon as scheduled Med/Other Pt SpecificInfo: Other Disposition: 01 DISCHARGE HOME Condition: Stable Francisco Chen MD Aug 29, 2016 14:27
== END 2016-08-29 14:41 | disposition home or self-care (01) ==
LOC: NEPE 13:46
DX: K40.90 Unilateral inguinal hernia, without obstruction or gangrene, not specified as recurrent (principal); J44.9 Chronic obstructive pulmonary disease, unspecified; K85.90 Acute pancreatitis without necrosis or infection, unspecified; F17.200 Nicotine dependence, unspecified, uncomplicated
CPT/HCPCS: 99282

== ENCOUNTER 2016-09-23 12:15 | Emergency (ER) | payer MEDICAID ==
[~2016-09-23] VITALS: Ht 175.3 cm; Wt 75.0 kg
[2016-09-23 12:20] VITALS: BP 139/71; PULSE 84; RESP 17; TEMP 98.4; O2SAT 100
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
[2016-09-23] MEDS ORDERED: IBUPROFEN 800 MG TAB PO ONE (12:45)
[2016-09-23] MEDS ORDERED: IBUP800T23 PO (12:47)
== END 2016-09-23 13:17 | disposition home or self-care (01) ==
LOC: NEPK 12:15
DX: R51 Headache (principal); H92.02 Otalgia, left ear; R07.81 Pleurodynia; M54.9 Dorsalgia, unspecified; J44.9 Chronic obstructive pulmonary disease, unspecified; F17.210 Nicotine dependence, cigarettes, uncomplicated; E78.00 Pure hypercholesterolemia, unspecified; I10 Essential (primary) hypertension; G47.30 Sleep apnea, unspecified; Z59.0 Homelessness; Y04.2XXA Assault by strike against or bumped into by another person, initial encounter
CPT/HCPCS: 99283

== ENCOUNTER 2016-09-25 01:12 | Emergency (ER) | payer MEDICAID ==
[~2016-09-25] VITALS: Ht 177.8 cm; Wt 74.0 kg
[~2016-09-25 01:12] MED LIST changes: +IBUP800T23 PO
[2016-09-25 01:21] VITALS: BP 132/78; PULSE 78; RESP 14; TEMP 98.1; O2SAT 98
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
[2016-09-25 02:55] VITALS: BP 128/70; PULSE 68; RESP 14; O2SAT 99
[2016-09-25 05:43] VITALS: BP 136/74; PULSE 70; RESP 12; O2SAT 99
== END 2016-09-25 08:44 | disposition home or self-care (01) ==
LOC: NEPD 01:12
DX: F10.120 Alcohol abuse with intoxication, uncomplicated (principal); I10 Essential (primary) hypertension; J44.9 Chronic obstructive pulmonary disease, unspecified; S00.81XA Abrasion of other part of head, initial encounter; S00.412A Abrasion of left ear, initial encounter; S90.811A Abrasion, right foot, initial encounter; F17.210 Nicotine dependence, cigarettes, uncomplicated; F12.90 Cannabis use, unspecified, uncomplicated; F10.10 Alcohol abuse, uncomplicated; X58.XXXA Exposure to other specified factors, initial encounter
CPT/HCPCS: 99284

== ENCOUNTER 2016-11-07 09:45 | Emergency (ER) | payer MEDICAID, OTHER ==
[~2016-11-07] VITALS: Ht 172.7 cm; Wt 68.0 kg
[2016-11-07 09:50] VITALS: BP 123/70; PULSE 69; RESP 16; TEMP 98.2; O2SAT 98
[2016-11-07 10:00] VITALS: RESP 16; O2SAT 100
[2016-11-07] MEDS ORDERED: SODIUM CHLORIDE 0.9% FLUSH 10 ML FLUSH IVF PRN (10:00)
[2016-11-07] MEDS ORDERED: methylPREDNISolone SOD SUCC 125 MG/2 ML VIAL IVP ONE (10:00)
--- NOTE | 2016-11-07 10:04 | PD ---
HPI Chief Complaint: Dizziness Time Seen by Provider: 09:58 Travel History International Travel<30 days: No Contact w/Intl Traveler<30days: No Traveled to known affect area: No History of Present Illness HPI 61-year-old male presents the emergency department with complaints of shortness of breath and dizziness. Patient was awoken by the railroad tracks earlier today by the police and placed under custody, when he developed increased shortness of breath and dizziness while being transported to the [facility]. Patient was transferred to EMS and brought in with normal vital signs and blood sugar in the rig. Patient is complaining of history of anxiety, and shortness of breath. He denies chest pain, fever, cough, or vomiting. He has no headache. Patient is noted to have COPD using Advair and Ventolin as treatment. He also takes lisinopril 10 mg daily. Patient drank 24 beers yesterday. He is not complaining of any pain at this time. He is noted to have mild pursed lip breathing. He has not used his inhaler or Advair since yesterday. He has allergies to codeine, as well as history of MRSA. He is here with a police escort. PFSH Past Medical History Hx Anticoagulant Therapy: No Arthritis: No Asthma: No Autoimmune Disease: No Heart Rhythm Problems: No Cancer: No Cardiovascular Problems: Yes High Cholesterol: Yes Chemotherapy: No Chest Pain: No Congestive Heart Failure: No COPD: Yes Cerebrovascular Accident: No Diabetes: No Diminished Hearing: No Endocrine: No GERD: No Genitourinary: No Headaches: Yes Hepatitis: No Hiatal Hernia: No Hypertension: Yes Immune Disorder: No Musculoskeletal: No Neurologic: No Psychiatric: No Reproductive: No Respiratory: Yes Migraines: No Pancreatitis: Yes Seizures: No Sleep Apnea: Yes Thyroid Disease: No Ulcer: No Tetanus Vaccination: Unknown Influenza Vaccination: Yes Past Surgical History Abdominal Surgery: No AICD: No Cardiac Surgery: No Ear Surgery: No Endocrine Surgery: No Eye Surgery: No Genitourinary Surgery: No Gynecologic Surgery: No Joint Replacement: No Oral Surgery: Yes (tonsillectomy) Pacemaker: No Thoracic Surgery: No Tonsillectomy: Yes Social History Alcohol Use: Yes (10-12 beer daily) Tobacco Use: Yes (2 pack per day) Substance Use: Yes (marijuana) Allergies-Medications (Allergen,Severity, Reaction): Coded Allergies: Codeine (Verified Adverse Reaction, Severe, N&V, 09/25/16) *MDRO Multi-Drug Resistant Organism (Verified Adverse Reaction, Unknown, ) MRSA PCR Screen POSITIVE - 12/31/2015 MRSA (blood) - 08/2004 Reported Meds & Prescriptions Reported Meds & Active Scripts Active Ibuprofen 800 Mg Tab 800 Mg PO TID Reported Advair Diskus Inh (Fluticasone-Salmeterol Inh) 250-50 Mcg/Blist Aer 2 Puff INH BID Rinse mouth after use. Proair Hfa 8.5 GM Inh (Albuterol Sulfate) 90 Mcg/Act Aer 90 Mcg INH BID Lovastatin 40 Mg Tab 40 Mg PO DAILY Lisinopril 10 Mg Tab 10 Mg PO DAILY Review of Systems Except as stated in HPI: all other systems reviewed are Neg General / Constitutional: No: Fever, Chills Eyes: No: Visual changes HENT: Positive: Lightheadedness, No: Headaches, Vertigo, Sore Throat, Rhinitis , Rhinorrhea, Congestion, Nosebleed, Neck Stiffness, Neck Pain, Ear Discharge, Earache Cardiovascular: No: Chest Pain or Discomfort Respiratory: Positive: Cough (chronic.), Shortness of Breath, Wheezing, No: Sneezing Gastrointestinal: No: Nausea, Vomiting, Diarrhea, Abdominal Pain Genitourinary: No: Dysuria Musculoskeletal: No: Pain Skin: No Rash Neurologic: No: Weakness Psychiatric: Positive: Anxiety, Substance Abuse, No: Depression, Suicidal Ideations, Homicidal Ideation Endocrine: No: Polydipsia Hematologic/Lymphatic: No: Easy Bruising Physical Exam Narrative GENERAL: Patient appears anxious and in mild respiratory distress. He is noted to have pursed lip breathing and mild accessory muscle use. SKIN: Warm and dry. Normal color. Normal turgor. No signs of trauma. HEAD: Atraumatic. Normocephalic. EYES: Pupils equal and round. No scleral icterus. No injection or drainage. ENT: No nasal bleeding or discharge. Mucous membranes pink and moist. Pharynx is clear. NECK: Trachea midline. No JVD. Supple and nontender. CARDIOVASCULAR: Regular rate and rhythm. RESPIRATORY: No accessory muscle use. Diffuse wheezes and rales throughout. Breath sounds equal bilaterally. GASTROINTESTINAL: Abdomen soft, non-tender, nondistended. Hepatic and splenic margins not palpable. MUSCULOSKELETAL: Extremities without clubbing, cyanosis, or edema. No obvious deformities. NEUROLOGICAL: Awake and alert. No obvious cranial nerve deficits. Motor grossly within normal limits. Five out of 5 muscle strength in the arms and legs. Normal speech. PSYCHIATRIC: Appropriate mood and affect; insight and judgment normal. Data Data Last Documented VS Vital Signs Date Time Temp Pulse Resp B/P Pulse Ox O2 Delivery O2 Flow Rate FiO2 11/07/16 10:19 65 16 118/68 100 Room Air 11/07/16 10:12 2.00 11/07/16 09:50 98.2 Orders Complete Blood Count With Diff (11/07/16 09:56) Comprehensive Metabolic Panel (11/07/16 09:56) B-Type Natriuretic Peptide (11/07/16 09:56) Act Partial Throm Time (Ptt) (11/07/16 09:56) Prothrombin Time / Inr (Pt) (11/07/16 09:56) Magnesium (Mg) (11/07/16 09:56) Ckmb (Isoenzyme) Profile (11/07/16 09:56) Troponin I (11/07/16 09:56) Iv Access Insert/Monitor (11/07/16 09:56) Electrocardiogram (11/07/16 09:56) Ecg Monitoring (11/07/16 09:56) Oximetry (11/07/16 09:56) Oxygen Administration (11/07/16 09:56) Chest, Single Ap (11/07/16 09:56) Sodium Chloride 0.9% Flush (Ns Flush) (11/07/16 10:00) Methylprednisolone So Succ Inj (Solumedr (11/07/16 10:00) Albuterol-Ipratropium Neb (Duoneb Neb) (11/07/16 10:00) Sodium Chlor 0.9% 1000 Ml Inj (Ns 1000 M (11/07/16 10:15) Labs Laboratory Tests Test 11/07/16 10:00 White Blood Count 8.7 TH/MM3 Red Blood Count 3.30 MIL/MM3 Hemoglobin 10.9 GM/DL Hematocrit 32.9 % Mean Corpuscular Volume 99.7 FL Mean Corpuscular Hemoglobin 33.1 PG Mean Corpuscular Hemoglobin 33.2 % Concent Red Cell Distribution Width 15.0 % Platelet Count 231 TH/MM3 Mean Platelet Volume 8.8 FL Neutrophils (%) (Auto) 72.1 % Lymphocytes (%) (Auto) 17.5 % Monocytes (%) (Auto) 9.1 % Eosinophils (%) (Auto) 0.2 % Basophils (%) (Auto) 1.1 % Neutrophils # (Auto) 6.2 TH/MM3 Lymphocytes # (Auto) 1.5 TH/MM3 Monocytes # (Auto) 0.8 TH/MM3 Eosinophils # (Auto) 0.0 TH/MM3 Basophils # (Auto) 0.1 TH/MM3 CBC Comment DIFF FINAL Differential Comment Prothrombin Time 10.1 SEC Prothromb Time International 0.9 RATIO Ratio Activated Partial 25.4 SEC Thromboplast Time Sodium Level 138 MEQ/L Potassium Level 3.9 MEQ/L Chloride Level 107 MEQ/L Carbon Dioxide Level 25.3 MEQ/L Anion Gap 6 MEQ/L Blood Urea Nitrogen 7 MG/DL Creatinine 0.66 MG/DL Estimat Glomerular Filtration 123 ML/MIN Rate Random Glucose 80 MG/DL Calcium Level 8.6 MG/DL Magnesium Level 1.9 MG/DL Total Bilirubin 0.3 MG/DL Aspartate Amino Transf 16 U/L (AST/SGOT) Alanine Aminotransferase 14 U/L (ALT/SGPT) Alkaline Phosphatase 79 U/L Total Creatine Kinase 76 U/L Troponin I LESS THAN 0.02 NG/ML B-Type Natriuretic Peptide 42 PG/ML Total Protein 7.4 GM/DL Albumin 3.0 GM/DL [facility] Medical Decision Making Medical Screen Exam Complete: Yes Emergency Medical Condition: Yes Differential Diagnosis COPD exacerbation. Anxiety. Shortness of breath. Wheezing. Cardiac syndrome. Malingering. Narrative Course Patient is medically stable at time of exam. EKG is performed Labs ordered including CBC, CMP, cardiac panel, proBNP Chest x-ray is ordered. DuoNeb every 15 minutes 3. Chest x-ray shows no acute process per radiologist. CBC shows chronic anemia unchanged from previous. CMP is unremarkable. Cardiac labs are normal. Patient is medically cleared for incarceration. Diagnosis Primary Impression: COPD (chronic obstructive pulmonary disease) Qualified Code: J44.1 - Chronic obstructive pulmonary disease with acute exacerbation Additional Impression: Medical clearance for incarceration Patient Instructions: COPD (Chronic Obstructive Pulmonary Disease) (ED), General Instructions Additional Instructions: EKG is performed Labs ordered including CBC, CMP, cardiac panel, proBNP Chest x-ray is ordered. DuoNeb every 15 minutes 3. Chest x-ray shows no acute process per radiologist. CBC shows chronic anemia unchanged from previous. CMP is unremarkable. Cardiac labs are normal. Patient is medically cleared for incarceration. Med/Other Pt SpecificInfo: No Meds Exist/No RX given Disposition: [address] LAW ENFORCEMNT Condition: Stable Aston Aaron Nov 07, 2016 10:04
[2016-11-07] MEDS: RESP: ALBUTEROL 2.5 MG/IPRATROPIUM 0.5 MG NEB (SCH) INH (10:07)
[2016-11-07 10:12] VITALS: O2SAT 97
[2016-11-07] MEDS ORDERED: SODIUM CHLOR 0.9% 1000 ML INJ 1,000 ML IV ONE (10:15)
[2016-11-07 10:19] VITALS: BP 118/68; PULSE 65; RESP 16; O2SAT 100
[2016-11-07 10:24] LABS: AUTOMATED NEUTROPHIL # 6.2 TH/MM3 (1.8-7.7); BASOPHIL # 0.1 TH/MM3 (0-0.2); BASOPHIL % 1.1 % (0.0-2.0); EOSINOPHIL % 0.2 % (0.0-4.0); HEMATOCRIT 32.9 % (39.0-51.0); HEMO FLAGS DIFF FINAL; LYMPH % 17.5 % (9.0-44.0); LYMPHOCYTE # 1.5 TH/MM3 (1.0-4.8); MEAN CELL VOLUME 99.7 FL (80.0-100.0); MEAN CORPUSCULAR HEMOGLOBIN 33.1 PG (27.0-34.0); MEAN CORPUSCULAR HGB CONC 33.2 % (32.0-36.0); MONO % 9.1 % (0.0-8.0); NEUT % 72.1 % (16.0-70.0); PLATELET COUNT 231 TH/MM3 (150-450); WHITE BLOOD COUNT 8.7 TH/MM3 (4.0-11.0)
[2016-11-07 10:34] LABS: APTT (PATIENT) 25.4 SEC (24.3-30.1); INTERNATIONAL NORMALIZED RATIO 0.9 RATIO; PROTHROMBIN TIME - PATIENT 10.1 SEC (9.8-11.6)
--- NOTE | 2016-11-07 10:34 | RADRPT ---
EXAM DATE/TIME: 11/07/2016 10:05 [facility] COMPARISON: CHEST SINGLE AP, July 20, 2016, 16:48. INDICATIONS : Chest pain and shortness of breath. MEDICAL HISTORY : Hypertension. Cardiovascular disease. Chronic obstructive pulmonary disease. SURGICAL HISTORY : None. ENCOUNTER: Initial ACUITY: 1 day PAIN SCORE: 10/10 LOCATION: Bilateral chest FINDINGS: A single view of the chest demonstrates the lungs to be symmetrically aerated without evidence of mas s, infiltrate or effusion. The cardiomediastinal contours are unremarkable. Osseous structures are intact. CONCLUSION: No acute disease. No significant change has occurred. Martin Hernandez MD on November 07, 2016 at 10:31 Board Certified Radiologist. This report was verified electronically.
[2016-11-07 10:50] LABS: ANION GAP 6 MEQ/L (5-15); AST (GOT) 16 U/L (15-37); BICARBONATE 25.3 MEQ/L (21.0-32.0); BLOOD UREA NITROGEN 7 MG/DL (7-18); CHLORIDE 107 MEQ/L (98-107); GLOMERULAR FILTRATION RATE 123 ML/MIN (>89); MAGNESIUM 1.9 MG/DL (1.5-2.5); POTASSIUM 3.9 MEQ/L (3.5-5.1); SODIUM (NA) 138 MEQ/L (136-145)
[2016-11-07 10:55] LABS: ALKALINE PHOSPHATASE 79 U/L (45-117); ALT (GPT) 14 U/L (12-78); TOTAL BILIRUBIN ADULT 0.3 MG/DL (0.2-1.0)
[2016-11-07 11:09] LABS: CREATINE KINASE 76 U/L (39-308)
--- NOTE | 2016-11-07 12:08 | EKG ---
Date Performed: 11/07/2016 Time Performed: 10:03:21 PTAGE: 61 years EKG: Sinus rhythm WITH MARKED SINUS ARRHYTHMIA BORDERLINE ECG PREVIOUS TRACING : 04/29/2016 16.04 Compared to prior tracing no significant change DOCTOR: Jackson Bernardo Interpretating Date/Time 11/07/2016 12:06:45
== END 2016-11-07 11:39 ==
LOC: NEPD 09:45
DX: J44.9 Chronic obstructive pulmonary disease, unspecified (principal); R06.02 Shortness of breath; R42 Dizziness and giddiness; E78.00 Pure hypercholesterolemia, unspecified; K85.90 Acute pancreatitis without necrosis or infection, unspecified; Z79.52 Long term (current) use of systemic steroids
CPT/HCPCS: 71010; 80053; 82550; 83735; 83880; 84484; 85025; 85610; 85730; 93005; 94640; 94664; 96361; 96374; 99285; J2930; J7030

== ENCOUNTER 2016-11-21 20:26 | Emergency (ER) | payer MEDICAID, OTHER ==
[~2016-11-21] VITALS: Ht 175.3 cm; Wt 74.0 kg
[2016-11-21 20:32] VITALS: BP 119/61; PULSE 100; RESP 16; TEMP 97.6; O2SAT 96
--- NOTE | 2016-11-21 21:26 | PD ---
Physical Exam Date Seen by Provider: Nov 21, 2016 Time Seen by Provider: 21:24 Data Data Last Documented VS Vital Signs Date Time Temp Pulse Resp B/P Pulse Ox O2 Delivery O2 Flow Rate FiO2 11/21/16 20:32 97.6 100 16 119/61 96 Room Air MDM Supervised Visit with CAITLIN: No Narrative Course 61 YO M with complaint of left leg swelling and 10/10 pain this week, worsened yesterday morning. States "I've had this before. Cellulitis." --F/C. Vitals reviewed. Patient seen in triage, awaiting bed placement. Mikaela Posey Nov 21, 2016 21:26
[2016-11-21] MEDS ORDERED: ONDANSETRON HCL 4 MG/2 ML VIAL IVP ONE (22:15)
[2016-11-21] MEDS ORDERED: HYDROmorphone HCL PF 1 MG/ML VIAL IVS ONE (22:15)
[2016-11-21 22:49] LABS: AUTOMATED NEUTROPHIL # 7.5 TH/MM3 (1.8-7.7); BASOPHIL # 0.1 TH/MM3 (0-0.2); BASOPHIL % 0.5 % (0.0-2.0); EOSINOPHIL # 0.2 TH/MM3 (0-0.4); EOSINOPHIL % 1.7 % (0.0-4.0); HEMATOCRIT 32.6 % (39.0-51.0); LYMPH % 20.9 % (9.0-44.0); LYMPHOCYTE # 2.3 TH/MM3 (1.0-4.8); MEAN CELL VOLUME 98.4 FL (80.0-100.0); MEAN CORPUSCULAR HEMOGLOBIN 34.4 PG (27.0-34.0); MONO % 8.6 % (0.0-8.0); NEUT % 68.3 % (16.0-70.0); PLATELET COUNT 233 TH/MM3 (150-450); RED BLOOD COUNT 3.31 MIL/MM3 (4.50-5.90); RED CELL DISTRIBUTION WIDTH 15.3 % (11.6-17.2)
[2016-11-21 22:50] VITALS: RESP 18; O2SAT 93
[2016-11-21 22:54] LABS: HEMO FLAGS AUTO DIFF
[2016-11-21 23:00] VITALS: BP 116/62; PULSE 98; RESP 20; O2SAT 95
[2016-11-21 23:05] LABS: ALT (GPT) 17 U/L (12-78); ANION GAP 7 MEQ/L (5-15); AST (GOT) 17 U/L (15-37); BICARBONATE 29.6 MEQ/L (21.0-32.0); BLOOD UREA NITROGEN 10 MG/DL (7-18); CHLORIDE 98 MEQ/L (98-107); GLOMERULAR FILTRATION RATE 91 ML/MIN (>89); POTASSIUM 4.1 MEQ/L (3.5-5.1); SODIUM (NA) 135 MEQ/L (136-145)
[2016-11-21 23:07] LABS: ALKALINE PHOSPHATASE 108 U/L (45-117); TOTAL BILIRUBIN ADULT 0.2 MG/DL (0.2-1.0)
[2016-11-21] MEDS ORDERED: CLIN150 PO (23:36)
[2016-11-21] MEDS ORDERED: DOXY100C PO (23:36)
[2016-11-21] MEDS ORDERED: CLINDAMYCIN INJ 900 MG in SODIUM CHLORIDE 0.9% INJ 100 ML IV ONE (23:45)
[2016-11-22] VITALS: BP 101/59; PULSE 100; RESP 20; O2SAT 95
[2016-11-22 01:20] LABS: BANDS 7 % (0-6); BASOPHILS 2 % (0-2); EOSINOPHILS 2 % (0-4); MYELOCYTES 1 % (0-0); NEUTROPHIL # MANUAL DIFF 6.8 TH/MM3 (1.8-7.7); PLATELET ESTIMATE SMEAR NORMAL (NORMAL); PLATELET MORPHOLOGY NORMAL (NORMAL); POLYS (SEG NEUTROPHILS) 54 % (16-70); SCAN/DIFF FINAL DIFF MANUAL; WBC DIFF SAMPLE 100
[2016-11-22] MEDS ORDERED: HYDROmorphone HCL PF 1 MG/ML VIAL IVS ONE (02:15)
[2016-11-22] MEDS ORDERED: SODIUM CHLORID 0.9% 500 ML INJ 500 ML IV ONE (02:15)
[2016-11-22 04:00] VITALS: BP 129/69; PULSE 93; RESP 15; O2SAT 97
[2016-11-22] MEDS ORDERED: HYDR-3533 PO (04:00)
--- NOTE | 2016-11-22 04:00 | PD ---
HPI Chief Complaint: Edema Time Seen by Provider: 22:07 Travel History International Travel<30 days: No Contact w/Intl Traveler<30days: No Traveled to known affect area: No History of Present Illness HPI 61-year-old male with a history of hypertension, COPD, peripheral vascular disease, Hyperlipidemia, who presents with left lower shimmy redness and pain. The patient has previous history of cellulitis of the right lower externally. He states it feels like this area the patient has multiple abrasions to his left lower extremity. He states over the last 2 days he just noted redness and swelling and warmth to the touch. He denies any fevers, chills. He denies any nausea vomiting diarrhea. He denies any other symptoms at this time. PFSH Past Medical History Hx Anticoagulant Therapy: No Arthritis: No Asthma: No Autoimmune Disease: No Heart Rhythm Problems: No Cancer: No Cardiovascular Problems: Yes (HTN) High Cholesterol: Yes Chemotherapy: No Chest Pain: No Congestive Heart Failure: No COPD: Yes Cerebrovascular Accident: No Diabetes: No Diminished Hearing: No Endocrine: No GERD: No Genitourinary: No Headaches: Yes Hepatitis: No Hiatal Hernia: No Hypertension: Yes Immune Disorder: No Medical other: Yes (pancreatitis) Musculoskeletal: No Neurologic: No Psychiatric: No Reproductive: No Respiratory: Yes (COPD) Migraines: No Pancreatitis: Yes Seizures: No Sleep Apnea: Yes Thyroid Disease: No Ulcer: No Past Surgical History Abdominal Surgery: No AICD: No Cardiac Surgery: No Ear Surgery: No Endocrine Surgery: No Eye Surgery: No Genitourinary Surgery: No Gynecologic Surgery: No Joint Replacement: No Oral Surgery: Yes (tonsillectomy) Pacemaker: No Thoracic Surgery: No Tonsillectomy: Yes Social History Alcohol Use: Yes (10-12 beer daily) Tobacco Use: Yes (2 pack per day) Substance Use: Yes (marijuana) Allergies-Medications (Allergen,Severity, Reaction): Coded Allergies: Codeine (Verified Adverse Reaction, Severe, N&V, 11/21/16) *MDRO Multi-Drug Resistant Organism (Verified Adverse Reaction, Unknown, ) MRSA PCR Screen POSITIVE - 12/31/2015 MRSA (blood) - 08/2004 Reported Meds & Prescriptions Reported Meds & Active Scripts Active Doxycycline Hyclate 100 Mg Cap 100 Mg PO BID Cleocin (Clindamycin HCl) 150 Mg Cap 450 Mg PO Q8HR Ibuprofen 800 Mg Tab 800 Mg PO TID Reported Advair Diskus Inh (Fluticasone-Salmeterol Inh) 250-50 Mcg/Blist Aer 2 Puff INH BID Rinse mouth after use. Proair Hfa 8.5 GM Inh (Albuterol Sulfate) 90 Mcg/Act Aer 90 Mcg INH BID Lovastatin 40 Mg Tab 40 Mg PO DAILY Lisinopril 10 Mg Tab 10 Mg PO DAILY Review of Systems Except as stated in HPI: all other systems reviewed are Neg General / Constitutional: No: Fever, Chills HENT: No: Headaches, Lightheadedness Cardiovascular: No: Chest Pain or Discomfort, Palpitations Respiratory: No: Cough, Shortness of Breath Gastrointestinal: No: Nausea, Vomiting, Abdominal Pain Musculoskeletal: Positive: Edema, Pain (and redness of the left lower extremity.) Skin: Positive Lesions (abrasion/scab of the left hagan.) Neurologic: No: Weakness, Dizziness Psychiatric: No: Anxiety Physical Exam Narrative GENERAL: Well-nourished, well-developed patient, in no acute distress. SKIN: Focused skin assessment warm/dry. HEAD: Normocephalic/atraumatic. EYES: No scleral icterus. No injection or drainage. NECK: Supple, trachea midline. No JVD or lymphadenopathy. CARDIOVASCULAR: Regular rate and rhythm without murmurs, gallops, or rubs. RESPIRATORY: Breath sounds equal bilaterally. No accessory muscle use. GASTROINTESTINAL: Abdomen soft, non-tender, nondistended. MUSCULOSKELETAL: On examination the patient's left lower extremity, he has redness and warmth to the dorsum of his foot. There is no calf tenderness. He does have obvious cellulitis is likely secondary to the abrasion/scab on his left knee. Cap refill is less than 3 seconds. There are no significant draining lesions noted. NEUROLOGICAL: Awake and alert. Cranial nerves II through XII intact. Motor grossly within normal limits. Five out of 5 muscle strength in all muscle groups. Normal speech. Data Data Last Documented VS Vital Signs Date Time Temp Pulse Resp B/P Pulse Ox O2 Delivery O2 Flow Rate FiO2 11/22/16 00:00 100 20 101/59 95 Nasal Cannula 2 11/21/16 20:32 97.6 Orders Complete Blood Count With Diff (11/21/16 22:15) Comprehensive Metabolic Panel (11/21/16 22:15) Blood Culture (11/21/16 22:15) Wound Culture And Gram Stain (11/21/16 22:15) Iv Access Insert/Monitor (11/21/16 22:15) Ecg Monitoring (11/21/16 22:15) Oximetry (11/21/16 22:15) Lactic Acid Sepsis Protocol (11/21/16 22:15) Ondansetron Inj (Zofran Inj) (11/21/16 22:15) Hydromorphone Pf Inj (Dilaudid Pf Inj) (11/21/16 22:15) Clindamycin Inj (Cleocin Inj) (11/21/16 23:45) Sodium Chlorid 0.9% 500 Ml Inj (Ns 500 M (11/22/16 02:15) Hydromorphone Pf Inj (Dilaudid Pf Inj) (11/22/16 02:15) Labs Laboratory Tests Test 11/21/16 11/21/16 22:10 22:26 Sodium Level 135 MEQ/L Potassium Level 4.1 MEQ/L Chloride Level 98 MEQ/L Carbon Dioxide Level 29.6 MEQ/L Anion Gap 7 MEQ/L Blood Urea Nitrogen 10 MG/DL Creatinine 0.86 MG/DL Estimat Glomerular Filtration 91 ML/MIN Rate Random Glucose 88 MG/DL Calcium Level 8.7 MG/DL Total Bilirubin 0.2 MG/DL Aspartate Amino Transf 17 U/L (AST/SGOT) Alanine Aminotransferase 17 U/L (ALT/SGPT) Alkaline Phosphatase 108 U/L Total Protein 8.0 GM/DL Albumin 3.2 GM/DL White Blood Count 11.0 TH/MM3 Red Blood Count 3.31 MIL/MM3 Hemoglobin 11.4 GM/DL Hematocrit 32.6 % Mean Corpuscular Volume 98.4 FL Mean Corpuscular Hemoglobin 34.4 PG Mean Corpuscular Hemoglobin 35.0 % Concent Red Cell Distribution Width 15.3 % Platelet Count 233 TH/MM3 Mean Platelet Volume 9.0 FL Neutrophils (%) (Auto) 68.3 % Lymphocytes (%) (Auto) 20.9 % Monocytes (%) (Auto) 8.6 % Eosinophils (%) (Auto) 1.7 % Basophils (%) (Auto) 0.5 % Neutrophils # (Auto) 7.5 TH/MM3 Lymphocytes # (Auto) 2.3 TH/MM3 Monocytes # (Auto) 0.9 TH/MM3 Eosinophils # (Auto) 0.2 TH/MM3 Basophils # (Auto) 0.1 TH/MM3 CBC Comment AUTO DIFF Differential Total Cells 100 Counted Neutrophils % (Manual) 54 % Band Neutrophils % 7 % Lymphocytes % 23 % Monocytes % 11 % Eosinophils % 2 % Basophils % 2 % Neutrophils # (Manual) 6.8 TH/MM3 Myelocytes 1 % Differential Comment FINAL DIFF MANUAL Platelet Estimate NORMAL Platelet Morphology Comment NORMAL Lactic Acid Level 1.5 mmol/L MDM Medical Decision Making Medical Screen Exam Complete: Yes Emergency Medical Condition: Yes Differential Diagnosis Cellulitis versus peripheral vascular disease with vascular insufficiency versus DVT. Narrative Course 61-year-old male presents with left foot and lower extremity redness and warmth. The patient has no obvious calf tenderness. He does have cellulitis to the hagan and foot of his left lower extremity. It appears to be extended from the abrasion/scab on his left knee. He is afebrile. His white count is within normal limits. He's been given one dose of clindamycin IVD here in emerged department. He's been given 2 doses of IVD pain meds. He'll be discharged with a prescription for doxycycline and Cleocin. He also be given a prescription for Lortabs. He is instructed to return of he develops any worsening redness, pain, swelling. Diagnosis Primary Impression: Cellulitis of left lower extremity Additional Impression: History of COPD Additional Instructions: Return if worse pain, redness, fevers, chills or any other reason the concerns you.. Take antibiotics as prescribed. Elevate when not ambulatory. Scripts Hydrocodone-Acetaminophen (Lortab)5-325 Mg Tab1 Tab PO Q6H PRN (PAIN) #15 TAB Ref 0 Prov:Clay Norman MD 11/22/16 Doxycycline Hyclate 100 Mg [id number] Mg PO BID #20 CAP Ref 0 Prov:Clay Norman MD 11/21/16 Clindamycin (Cleocin)150 Mg [id number] Mg PO Q8HR #30 CAP Ref 0 Prov:Clay Norman MD 11/21/16 Disposition: 01 DISCHARGE HOME Condition: Stable Clay Norman MD Nov 22, 2016 04:00
== END 2016-11-22 04:47 | disposition home or self-care (01) ==
LOC: NEPE 20:26
DX: L03.116 Cellulitis of left lower limb (principal); B95.61 Methicillin susceptible Staphylococcus aureus infection as the cause of diseases classified elsewhere; B95.0 Streptococcus, group A, as the cause of diseases classified elsewhere; B96.89 Other specified bacterial agents as the cause of diseases classified elsewhere; J44.9 Chronic obstructive pulmonary disease, unspecified; I10 Essential (primary) hypertension; F17.200 Nicotine dependence, unspecified, uncomplicated
CPT/HCPCS: 80053; 83605; 85007; 85027; 86403; 87040; 87070; 87077; 87186; 96361; 96365; 96375; 96376; 99284; J1170; J2405; J7040; 87205

== ENCOUNTER 2016-11-24 11:38 | Emergency (ER) | payer MEDICAID ==
[~2016-11-24] VITALS: Ht 175.3 cm; Wt 74.0 kg
[~2016-11-24 11:38] MED LIST changes: +CLIN150 PO; +DOXY100C PO; +HYDR-3533 PO
[2016-11-24 11:39] VITALS: BP 133/66; PULSE 87; RESP 18; TEMP 97.5; O2SAT 97
--- NOTE | 2016-11-24 11:46 | PD ---
Physical Exam Time Seen by Provider: 11:44 Narrative Pt presents to the ED for evaluation of left foot infection. States was seen here 3 nights ago and told he had cellulitis. Has been taking antibiotics without improvement of symptoms. Denies fever. VSS. Awaiting bed placement. Data Data Last Documented VS Vital Signs Date Time Temp Pulse Resp B/P Pulse Ox O2 Delivery O2 Flow Rate FiO2 11/24/16 11:39 97.5 87 18 133/66 97 Room Air MDM Supervised Visit with CAITLIN: Princess Ramos Nov 24, 2016 11:46
[2016-11-24] MEDS ORDERED: CEPH-460 PO (12:11)
[2016-11-24] MEDS ORDERED: NAPR500T PO (12:11)
[2016-11-24] MEDS ORDERED: ceFAZolin 2 GM PREMIX 50 ML IV ONE (12:15)
--- NOTE | 2016-11-24 12:17 | PD ---
HPI Chief Complaint: Skin Problem Time Seen by Provider: 12:00 Travel History International Travel<30 days: No Contact w/Intl Traveler<30days: No Traveled to known affect area: No History of Present Illness HPI 61-year-old male with history of hypertension, COPD, peripheral vascular disease , hyperlipidemia, returns for reevaluation of left foot cellulitis. The patient developed pain and redness to left foot 4-5 days ago. He was seen here on November 21 where a wound culture of an ulcer to the posterior left ankle was performed. He was diagnosed with cellulitis and discharged with doxycycline and clindamycin and Lortab. He returns today because symptoms have not improved. He continues to have pain and redness to the left foot. He has been using the medications as prescribed. He has run out of the Lortab. He denies any fevers, chills, trauma to the left foot. He denies any nausea, vomiting, diarrhea. He has no other complaints. PFSH Past Medical History Hx Anticoagulant Therapy: No Arthritis: No Asthma: No Autoimmune Disease: No Heart Rhythm Problems: No Cancer: No Cardiovascular Problems: Yes (HTN) High Cholesterol: Yes Chemotherapy: No Chest Pain: No Congestive Heart Failure: No COPD: Yes Cerebrovascular Accident: No Diabetes: No Diminished Hearing: No Endocrine: No GERD: No Genitourinary: No Headaches: Yes Hepatitis: No Hiatal Hernia: No Hypertension: Yes Immune Disorder: No Medical other: Yes (pancreatitis) Musculoskeletal: No Neurologic: No Psychiatric: No Reproductive: No Respiratory: Yes (COPD) Migraines: No Pancreatitis: Yes Seizures: No Sleep Apnea: Yes Thyroid Disease: No Ulcer: No Tetanus Vaccination: < 5 Years Influenza Vaccination: Yes Past Surgical History Abdominal Surgery: No AICD: No Cardiac Surgery: No Ear Surgery: No Endocrine Surgery: No Eye Surgery: No Genitourinary Surgery: No Gynecologic Surgery: No Joint Replacement: No Oral Surgery: Yes (tonsillectomy) Pacemaker: No Thoracic Surgery: No Tonsillectomy: Yes Social History Alcohol Use: Yes (10-12 beer daily) Tobacco Use: Yes (2 pack per day) Substance Use: Yes (marijuana) Allergies-Medications (Allergen,Severity, Reaction): Coded Allergies: Codeine (Verified Adverse Reaction, Severe, N&V, 11/24/16) *MDRO Multi-Drug Resistant Organism (Verified Adverse Reaction, Unknown, ) MRSA PCR Screen POSITIVE - 12/31/2015 MRSA (blood) - 08/2004 Reported Meds & Prescriptions Reported Meds & Active Scripts Active Naproxen 500 Mg Tab 500 Mg PO BID 10 Days Keflex (Cephalexin) 500 Mg Cap 500 Mg PO Q8H Doxycycline Hyclate 100 Mg Cap 100 Mg PO BID Cleocin (Clindamycin HCl) 150 Mg Cap 450 Mg PO Q8HR Reported Advair Diskus Inh (Fluticasone-Salmeterol Inh) 250-50 Mcg/Blist Aer 2 Puff INH BID Rinse mouth after use. Proair Hfa 8.5 GM Inh (Albuterol Sulfate) 90 Mcg/Act Aer 90 Mcg INH BID Lovastatin 40 Mg Tab 40 Mg PO DAILY Lisinopril 10 Mg Tab 10 Mg PO DAILY Review of Systems Except as stated in HPI: all other systems reviewed are Neg Physical Exam Narrative GENERAL: Well-developed well-nourished male in no acute distress SKIN: Warm and dry. Abrasions are noted to the legs bilaterally. Some erythematous noted to the dorsum of the left foot. There is a superficial ulceration to left ankle. HEAD: Atraumatic. Normocephalic. EYES: Pupils equal and round. No scleral icterus. No injection or drainage. ENT: No nasal bleeding or discharge. Mucous membranes pink and moist. NECK: Trachea midline. No JVD. CARDIOVASCULAR: Regular rate and rhythm. No murmur appreciated. RESPIRATORY: No accessory muscle use. Clear to auscultation. Breath sounds equal bilaterally. GASTROINTESTINAL: Abdomen soft, non-tender, nondistended. Hepatic and splenic margins not palpable. MUSCULOSKELETAL: No obvious deformities. Skin as noted above with some lower extremity edema bilaterally. 1+ dorsalis pedis pulses bilaterally. Both feet are warm. NEUROLOGICAL: Awake and alert. No obvious cranial nerve deficits. Motor grossly within normal limits. Normal speech. PSYCHIATRIC: Appropriate mood and affect; insight and judgment normal. Data Data Last Documented VS Vital Signs Date Time Temp Pulse Resp B/P Pulse Ox O2 Delivery O2 Flow Rate FiO2 11/24/16 11:39 97.5 87 18 133/66 97 Room Air Orders Cefazolin 2 Gm Premix (Ancef 2 Gm Premix (11/24/16 12:15) MDM Medical Decision Making Medical Screen Exam Complete: Yes Emergency Medical Condition: Yes Medical Record Reviewed: Yes Differential Diagnosis Cellulitis, osteomyelitis, DVT, necrotizing fasciitis, sepsis Narrative Course This is a 61-year-old male who developed cellulitis of the left foot and was started on doxycycline and clindamycin November 21. He returns today with minimal improvement of his symptoms. Examination is consistent with cellulitis left foot. He does have some abrasions to both legs from a recent fall. He has a superficial ulceration to the left foot which was swabbed for culture when he was here in November 21. Wound culture results have resulted today. Wound culture grew out Staphylococcus aureus which is resistant to both clindamycin and doxycycline. It also grew out group A beta strep as well as Enterobacter which is susceptible to the doxycycline. Therefore the clindamycin that the patient was prescribed will be discontinued and he will be placed on Keflex which the Staphylococcus aureus organism will be susceptible to as well as the group A beta strep organism. He will continue taking doxycycline to cover for Enterobacter. He will be given a dose of Ancef prior to discharge. We did discuss signs and symptoms that would warrant returning to the emergency room for admission if symptoms worsen. He is stable for discharge. He will be given naproxen for pain control. Diagnosis Primary Impression: Cellulitis of left foot Additional Instructions: As discussed, wash all wounds daily with soap and water and apply antibiotic cream. Quit taking the clindamycin. Continue taking the doxycycline. Begin the new medicationsKeflex and naproxen. Return for evidence of worsening infection such as increasing redness, red streaks up the leg, fevers. Med/Other Pt SpecificInfo: Prescription(s) given Scripts Naproxen 500 Mg [id number] Mg PO BID 10 Days Ref 0 Prov:Keysha Navarro DO 11/24/16 Cephalexin (Keflex)500 Mg [id number] Mg PO Q8H #30 CAP Ref 0 Prov:Keysha Navarro DO 11/24/16 Disposition: 01 DISCHARGE HOME Condition: Stable Grant Arvizu Nov 24, 2016 12:17
[2016-11-24] MEDS ORDERED: NAPROXEN 500 MG TAB PO ONE (12:45)
== END 2016-11-24 14:07 | disposition home or self-care (01) ==
LOC: NEPC 11:38
DX: L03.116 Cellulitis of left lower limb (principal); B95.61 Methicillin susceptible Staphylococcus aureus infection as the cause of diseases classified elsewhere; I10 Essential (primary) hypertension; J44.9 Chronic obstructive pulmonary disease, unspecified; E78.00 Pure hypercholesterolemia, unspecified; G47.30 Sleep apnea, unspecified; F17.210 Nicotine dependence, cigarettes, uncomplicated
CPT/HCPCS: 96365; J0690

== ENCOUNTER 2016-11-26 16:37 | Inpatient (IN) | payer MEDICAID ==
[~2016-11-26] VITALS: Ht 175.3 cm; Wt 80.0 kg
[~2016-11-26 16:37] MED LIST changes: +CEPH-460 PO; -HYDR-3533 PO; -IBUP800T23 PO; +NAPR500T PO
[2016-11-26 16:43] VITALS: BP 147/67; PULSE 78; RESP 24; TEMP 97.8; O2SAT 98
--- NOTE | 2016-11-26 16:52 | PD ---
Physical Exam Time Seen by Provider: 16:49 Narrative 61yo M c/o continued swelling and pain of left lower leg. Was seen here November 21 and November 24 for same complaint and dx of cellulitis. He is taking doxycycline and Keflex w/ no improvement in symptoms. Denies fever, vomiting. Patient seen in triage. VS reviewed. Awaiting bed placement. Data Data Last Documented VS Vital Signs Date Time Temp Pulse Resp B/P Pulse Ox O2 Delivery O2 Flow Rate FiO2 11/26/16 16:43 97.8 78 24 147/67 98 Room Air MDM Supervised Visit with CAITLIN: Princess Najera Nov 26, 2016 16:52
--- NOTE | 2016-11-26 17:02 | PD ---
HPI Chief Complaint: Skin Problem Time Seen by Provider: 16:56 Travel History International Travel<30 days: No Contact w/Intl Traveler<30days: No Traveled to known affect area: No History of Present Illness HPI 7 year-old male history of left lower extremity cellulitis, presents here for the third day this week with worsening redness and swelling of his left lower extremity. The patient was seen last on Tuesday and told to continue his doxycycline and placed on Keflex. The patient states the redness and pain is gotten worse. PFSH Past Medical History Hx Anticoagulant Therapy: No Arthritis: No Asthma: No Autoimmune Disease: No Heart Rhythm Problems: No Cancer: No Cardiovascular Problems: Yes (HTN) High Cholesterol: Yes Chemotherapy: No Chest Pain: No Congestive Heart Failure: No COPD: Yes Cerebrovascular Accident: No Diabetes: No Diminished Hearing: No Endocrine: No GERD: No Genitourinary: No Headaches: Yes Hepatitis: No Hiatal Hernia: No Hypertension: Yes Immune Disorder: No Musculoskeletal: No Neurologic: No Psychiatric: No Reproductive: No Respiratory: Yes Migraines: No Pancreatitis: Yes Seizures: No Sleep Apnea: Yes Thyroid Disease: No Ulcer: No Past Surgical History Abdominal Surgery: No AICD: No Cardiac Surgery: No Ear Surgery: No Endocrine Surgery: No Eye Surgery: No Genitourinary Surgery: No Gynecologic Surgery: No Joint Replacement: No Oral Surgery: Yes (tonsillectomy) Pacemaker: No Thoracic Surgery: No Tonsillectomy: Yes Social History Alcohol Use: Yes (10-12 beer daily) Tobacco Use: Yes (2 pack per day) Substance Use: Yes (marijuana) Allergies-Medications (Allergen,Severity, Reaction): Coded Allergies: Codeine (Verified Adverse Reaction, Severe, N&V, 11/26/16) *MDRO Multi-Drug Resistant Organism (Verified Adverse Reaction, Unknown, ) MRSA PCR Screen POSITIVE - 12/31/2015 MRSA (blood) - 08/2004 Reported Meds & Prescriptions Reported Meds & Active Scripts Active Reported Advair Diskus Inh (Fluticasone-Salmeterol Inh) 250-50 Mcg/Blist Aer 2 Puff INH BID Rinse mouth after use. Proair Hfa 8.5 GM Inh (Albuterol Sulfate) 90 Mcg/Act Aer 90 Mcg INH BID Lovastatin 40 Mg Tab 40 Mg PO DAILY Lisinopril 10 Mg Tab 10 Mg PO DAILY Review of Systems Except as stated in HPI: all other systems reviewed are Neg General / Constitutional: No: Fever, Chills HENT: No: Headaches, Lightheadedness Cardiovascular: No: Chest Pain or Discomfort, Palpitations Respiratory: No: Cough, Shortness of Breath Gastrointestinal: No: Nausea, Vomiting Genitourinary: No: Urgency, Frequency Musculoskeletal: Positive: Edema, Pain, No: Weakness Skin: Positive Other (multiple excoriated areas of his extremities.) Neurologic: No: Weakness, Headache Psychiatric: No: Anxiety, Mood Disorder Endocrine: No: Heat Intolerance, Polyuria Physical Exam Narrative GENERAL: Well-nourished, well-developed patient, in no acute distress. SKIN: Focused skin assessment warm/dry. HEAD: Normocephalic/atraumatic. EYES: No scleral icterus. No injection or drainage. NECK: Supple, trachea midline. No JVD or lymphadenopathy. CARDIOVASCULAR: Regular rate and rhythm without murmurs, gallops, or rubs. RESPIRATORY: Breath sounds equal bilaterally. No accessory muscle use. GASTROINTESTINAL: Abdomen soft, non-tender, nondistended. MUSCULOSKELETAL: Patient has swelling and redness and warmth to the left lower extremity at the foot extending up to his mid ankle. Patient does have an abrasion/scab on his left knee. This is consistent with what he had 6 days ago. There is no obvious lymphangitis. He does have excoriations consistent with scratches. The patient is homeless and states that he gets this from bug bites. NEUROLOGICAL: Awake and alert. Cranial nerves II through XII intact. Motor and sensory grossly within normal limits. Five out of 5 muscle strength in all muscle groups. Normal speech. Data Data Last Documented VS Vital Signs Date Time Temp Pulse Resp B/P Pulse Ox O2 Delivery O2 Flow Rate FiO2 11/26/16 16:43 97.8 78 24 147/67 98 Room Air Orders Complete Blood Count With Diff (11/26/16 17:17) Admit Order (Ed Use Only) (11/26/16 17:18) Comprehensive Metabolic Panel (11/26/16 17:40) MDM Medical Decision Making Medical Screen Exam Complete: Yes Emergency Medical Condition: Yes Differential Diagnosis Left lower extremity cellulitis, failed outpatient Narrative Course 7-year-old male who presents for the third time this week for worsening left lower extremity redness and swelling. The patient has a history of cellulitis previously. He's been started on initially clindamycin and doxycycline. 2 days ago he was changed to Keflex and doxycycline. He does have a history of multidrug resistant organisms. He'll be admitted to the resident service for failed outpatient therapy. Diagnosis Primary Impression: left lower extremity cellulitis, failed outpatient therapy Additional Impressions: History of COPD PVD (peripheral vascular disease) Poor social situation Admitting Information Admitting Physician Requests: Admit Clay Norman MD Nov 26, 2016 17:02
[2016-11-26 17:39] VITALS: O2SAT 98
[2016-11-26] MEDS ORDERED: SODIUM CHLORIDE 0.9% FLUSH 10 ML FLUSH IV FLUSH PRN ×2 (17:45→18:45)
[2016-11-26 18:07] LABS: AUTOMATED NEUTROPHIL # 4.5 TH/MM3 (1.8-7.7); BASOPHIL # 0.1 TH/MM3 (0-0.2); EOSINOPHIL # 0.3 TH/MM3 (0-0.4); EOSINOPHIL % 3.4 % (0.0-4.0); HEMATOCRIT 30.3 % (39.0-51.0); HEMO FLAGS DIFF FINAL; LYMPH % 29.4 % (9.0-44.0); LYMPHOCYTE # 2.3 TH/MM3 (1.0-4.8); MEAN CELL VOLUME 100.8 FL (80.0-100.0); MEAN CORPUSCULAR HEMOGLOBIN 33.8 PG (27.0-34.0); MEAN CORPUSCULAR HGB CONC 33.5 % (32.0-36.0); MONO % 8.1 % (0.0-8.0); NEUT % 58.1 % (16.0-70.0); PLATELET COUNT 227 TH/MM3 (150-450); RED CELL DISTRIBUTION WIDTH 15.4 % (11.6-17.2); WHITE BLOOD COUNT 7.7 TH/MM3 (4.0-11.0)
--- NOTE | 2016-11-26 18:08 | HHI.HP ---
[facility] Service Family Medicine Primary Care Physician Emi Stone, HARNESS INSPECTOR Admission Diagnosis Left lower ext cellulitis failed outpatient treatment, PAD Diagnoses: (1) Cellulitis of left foot Diagnosis: Principal (2) Cellulitis of right foot Diagnosis: Principal (3) Alcohol abuse Diagnosis: Secondary (4) Tobacco abuse Diagnosis: Secondary (5) Substance abuse Diagnosis: Secondary International Travel<30 Days: No Contact w/Intl Traveler<30days: No Known Affected Area: No History of Present Illness Patient is 61 year old male with worsening left lower extremity and possible new onset right lower extremity cellulitis. Patient was seen in the ED on Tuesday and Tuesday of this week for left lower extremity cellulitis. He was discharged from the ED on doxycycline and Keflex. Patient states that redness and pain have gotten worse over the past few days. He also complains of new lesions on his right hallux and 2nd toe. When patient woke up on Tuesday, he first noticed painful swelling of his left foot. He describes the pain as a throbbing pain that is there all the time. He says that the pain radiates up to below his knee. He also admits to bleeding of a lesion on his left hallux. He denies trauma. Patient states that the right foot started to swell and become painful yesterday. He describes a similar pain as he is experiencing on the left side. Naproxen has not relieved pain in either foot. Patient denies fever/chills, chest pain, shortness of breath, and nausea vomiting. He denies constipation but admits to diarrhea since Tuesday. He says stool is loose/watery, non-bloody x 2/day. He denies abdominal pain. He denies hx of c.diff. Of note, patient is a heavy drinker. He denies shakes or seizure-like episodes when he has gone days without alcohol. (Fernanda Machado MD R1) Review of Systems Constitutional: COMPLAINS OF: Fatigue, Weight gain (12 lbs in 2 week period ), Dizziness, DENIES: Fever, Chills Endocrine: DENIES: Heat/cold intolerance Eyes: COMPLAINS OF: Blurred vision, Eye pain (Burning ), DENIES: Vision loss Ears, nose, mouth, throat: COMPLAINS OF: Hoarseness, Running Nose, DENIES: Tinnitus, Hearing loss, Throat pain Respiratory: COMPLAINS OF: Cough (Chronic, mucousy. non-bloddy cough ), Wheezing, Sputum production, Shortness of breath, DENIES: Snoring Cardiovascular: COMPLAINS OF: Lower Extremity Edema, DENIES: Chest pain, Palpitations Gastrointestinal: COMPLAINS OF: Diarrhea, DENIES: Abdominal pain, Black stools , Bloody stools, Constipation, Nausea, Vomiting Genitourinary: DENIES: Urinary frequency, Hematuria Musculoskeletal: COMPLAINS OF: Muscle aches, Back pain Integumentary: COMPLAINS OF: Abnormal pigmentation, Rash Hematologic/lymphatic: COMPLAINS OF: Bruising (Right and left upper arm ) Immunologic/allergic: DENIES: Eczema Neurologic: COMPLAINS OF: Abnormal gait Psychiatric: DENIES: Anxiety, Mood changes, Depression (Fernanda Machado MD R1) Past Family Social History Past Medical History HTN Hyperlipidemia Syncope; last in 2015 COPD - emphysema Sleep apnea Pancreatitis Headache Poor eyesight; not wearing glasses or contacts; "have not made it to the eye doctor" Herniated discs x 4 Hx of right foot cellulitis Hx of MRSA 12/2015 Past Surgical History Tonsillectomy I&D of left hand Vascular surgery involving right leg Reported Medications Reported Meds & Active Scripts Active Naproxen 500 Mg Tab 500 Mg PO BID 10 days Keflex (Cephalexin) 500 Mg Cap 500 Mg PO Q8H Doxycycline Hyclate 100 Mg Cap 100 Mg PO BID Cleocin (Clindamycin HCl) 150 Mg Cap 450 Mg PO Q8HR Reported Advair Diskus Inh (Fluticasone-Salmeterol Inh) 250-50 Mcg/Blist Aer 2 Puff INH BID Rinse mouth after use. Proair Hfa 8.5 GM Inh (Albuterol Sulfate) 90 Mcg/Act Aer 90 Mcg INH BID Lovastatin 40 Mg Tab 40 Mg PO DAILY Lisinopril 10 Mg Tab 10 Mg PO DAILY (Fernanda Machado MD R1) Allergies: Coded Allergies: Codeine (Verified Adverse Reaction, Severe, N&V, 11/26/16) *MDRO Multi-Drug Resistant Organism (Verified Adverse Reaction, Unknown, ) MRSA PCR Screen POSITIVE - 12/31/2015 MRSA (blood) - 08/2004 Active Ordered Medications Current Medications Medications (Trade) Dose Ordered Sig/Ashli Route Start Time Stop Time Status Last Admin (Prinivil) 10 mg DAILY PO 11/27/16 09:00 (Pravachol) 40 mg DAILY PO 11/27/16 09:00 (Symbicort 160-4.5 Inh) 2 puff BID INH 11/26/16 21:00 (NS Flush) 2 ml UNSCH PRN IV FLUSH 11/26/16 18:45 (NS Flush) 2 ml BID IV FLUSH 11/26/16 21:00 (Tylenol) 650 mg Q4H PRN PO 11/26/16 18:45 (Heparin Inj) 5,000 units Q12H SQ 11/26/16 20:00 (Narcan Inj) 0.4 mg UNSCH PRN IV 11/26/16 18:45 (Whit-Colace) 1 tab BID PO 11/26/16 21:00 (Milk Of Magnesia Liq) 30 ml Q12H PRN PO 11/26/16 18:45 (Senokot) 17.2 mg Q12H PRN PO 11/26/16 18:45 (Dulcolax Supp) 10 mg DAILY PRN RECTAL 11/26/16 18:45 (Lactulose Liq) 30 ml DAILY PRN PO 11/26/16 18:45 (Romazicon Inj) 0.2 mg Q1M PRN IV PUSH 11/26/16 18:45 (Ativan) 1 mg Q4H PRN PO 11/26/16 18:45 (Ativan Inj) 1 mg Q4H PRN IV PUSH 11/26/16 18:45 (Ativan) 2 mg Q2H PRN PO 11/26/16 18:45 (Ativan Inj) 2 mg Q2H PRN IV PUSH 11/26/16 18:45 (Ativan Inj) 2 mg Q1H PRN IV PUSH 11/26/16 18:45 Lorazepam 2 mg 2 mg Q15M PRN IV PUSH 11/26/16 18:45 (Vancomycin Consult Pharmacy) 0 ml @ 0 mls/hr UNSCH OTHER 11/26/16 18:45 (Habitrol 21 Mg Patch.24 Hr) 1 patch DAILY T-DERMAL 11/26/16 18:45 11/26/16 19:04 Miscellaneous Information 1 1 DAILY T-DERMAL 11/27/16 19:00 (Vancomycin Inj/ NS 500 ml Inj) 516 ml @ 250 mls/hr Q12H IV 11/26/16 21:00 Miscellaneous Information SPECIFIC LAB TO BE [facility]... ONCE ONCE .XX 11/28/16 08:45 11/28/16 08:46 Family History Discussed but non-contributory Social History Alcohol use; * 10-12 beers/day * Last: last night around 10 p.m. Tobacco use * 2 pack/day x 40 years Substance use * Marijuana; every other day; last: Tuesday * Denies IV drug use (Fernanda Machado MD R1) Physical Exam Vital Signs Vital Signs Date Time Temp Pulse Resp B/P Pulse Ox O2 Delivery O2 Flow Rate FiO2 11/26/16 17:39 98 11/26/16 16:43 97.8 78 24 147/67 98 Room Air Physical Exam GENERAL: This is a well-nourished, well-developed patient, in no apparent distress. SKIN: * Thin, elongated bruises noted on patient's right and left upper arms * Feet noted to be dirty; black plantar surfaces * Lower extremities noted to be warm * Left lower extremity noted to be red and shiny in appearance * Right lower leg, below knee: 3 cm lesion, crusty surrounding * Right hallux: 1 cm lesion, small round * Right 2nd toe: 1 cm lesion, small round * Left lower leg, below knee: 6 cm lesion, oval, crusty surrounding, evidence of bleeding, no active bleeding * Left hallux: 2 cm lesion, oval, evidence of bleeding, no active bleeding HEAD: Atraumatic. Normocephalic. No temporal or scalp tenderness. EYES: Pupils equal round and reactive. Extraocular motions intact. No scleral icterus but bloodshot eyes. ENT: Nose without bleeding, purulent drainage or septal hematoma. Throat without erythema, tonsillar hypertrophy or exudate. Uvula midline. Airway patent. NECK: Trachea midline. No JVD or lymphadenopathy. Supple, nontender, no meningeal signs. CARDIOVASCULAR: Regular rate and rhythm without murmurs, gallops, or rubs. RESPIRATORY: Breath sounds equal bilaterally. No wheezes. Expiratory rhonchi noted. GASTROINTESTINAL: Abdomen soft, tender in right upper and lower as well as left upper quadrants. No hepato-splenomegaly, or palpable masses. No guarding. MUSCULOSKELETAL: Right and left lower extremity edema; pitting edema reaching to below knee. Right and left calf found to be tender. Extremities without clubbing, cyanosis. No joint tenderness or effusion. NEUROLOGICAL: Awake and alert. Cranial nerves II through XII intact. Motor and sensory grossly within normal limits. Normal speech. Laboratory Laboratory Tests Test 11/26/16 17:40 White Blood Count 7.7 TH/MM3 Red Blood Count 3.00 MIL/MM3 Hemoglobin 10.1 GM/DL Hematocrit 30.3 % Mean Corpuscular Volume 100.8 FL Mean Corpuscular Hemoglobin 33.8 PG Mean Corpuscular Hemoglobin 33.5 % Concent Red Cell Distribution Width 15.4 % Platelet Count 227 TH/MM3 Mean Platelet Volume 8.7 FL Neutrophils (%) (Auto) 58.1 % Lymphocytes (%) (Auto) 29.4 % Monocytes (%) (Auto) 8.1 % Eosinophils (%) (Auto) 3.4 % Basophils (%) (Auto) 1.0 % Neutrophils # (Auto) 4.5 TH/MM3 Lymphocytes # (Auto) 2.3 TH/MM3 Monocytes # (Auto) 0.6 TH/MM3 Eosinophils # (Auto) 0.3 TH/MM3 Basophils # (Auto) 0.1 TH/MM3 CBC Comment DIFF FINAL Differential Comment Sodium Level 137 MEQ/L Potassium Level 4.0 MEQ/L Chloride Level 103 MEQ/L Carbon Dioxide Level 27.0 MEQ/L Anion Gap 7 MEQ/L Blood Urea Nitrogen 13 MG/DL Creatinine 0.65 MG/DL Estimat Glomerular Filtration 125 ML/MIN Rate Random Glucose 74 MG/DL Calcium Level 8.5 MG/DL Total Bilirubin 0.5 MG/DL Aspartate Amino Transf 13 U/L (AST/SGOT) Alanine Aminotransferase 13 U/L (ALT/SGPT) Alkaline Phosphatase 94 U/L Total Protein 7.3 GM/DL Albumin 3.1 GM/DL Ethyl Alcohol Level LESS THAN 3 MG/DL (Fernanda Machado MD R1) Imaging US Lower extremity negative for DVT. (Fernanda Machado MD R1) Assessment and Plan Assessment and Plan Patient is 61 year old male with worsening left lower extremity and possible new onset right lower extremity cellulitis. Patient was seen in the ED on Tuesday and Tuesday of this week for left lower extremity cellulitis. He was discharged from the ED on doxycycline and Keflex. Patient states that redness and pain have gotten worse over the past few days. He also complains of new lesions on his right hallux and 2nd toe. He is admitted due to failed outpatient management. Code Status Full Code Discussed Condition With Dr. Mikayla Leary (Fernanda Machado MD R1) Attending Attestation THIS CASE WAS DISCUSSED WITH THE RESIDENT PHYSICIANS. I HAVE REVIEWED THE RECORD AND AGREE WITH THE ABOVE NOTE AND PLAN OF CARE WAS DISCUSSED. I HAVE AUTHORIZED THE ORDER FOR ADMISSION TO AN IN-PATIENT STATUS. (Ani Leary MD) Problem List: (1) Cellulitis of right foot Status: Acute Plan: Hx of cellulitis Hx of MRSA Etiology unknown Temperature and WBC normal at admission (T 97.6F; WBC 7.7). Started Vancomycin HCl 1,600/Sodium Chloride q12h IV as per pharmacy. Monitor progression of infection. (2) Cellulitis of left foot Status: Acute Plan: Hx of cellulitis Hx of MRSA Etiology unknown Temperature and WBC normal at admission (T 97.6F; WBC 7.7). Started Vancomycin HCl 1,600/Sodium Chloride q12h IV as per pharmacy. Monitor progression of infection. (3) History of COPD Status: Acute Plan: Etiology: hx of smoking x 40 years Started on Symbicort 2 puff BID INH. (4) Alcohol abuse Status: Chronic Plan: Started CIWA protocol. Educate patient on importance of stopping alcohol use. (5) Tobacco abuse Status: Chronic Plan: Ordered nicotine patch daily. Coroner/Medical Examiner on smoking cessation. (6) Substance abuse Status: Acute Plan: Coroner/Medical Examiner patient on importance of stopping substance use. (7) Homelessness Status: Chronic Plan: Consult case management. (8) Fluid, Electrolyte, Nutrition and Prophylaxis Status: Acute Plan: Fluid: * Not indicated at this time; tolerates PO. Electrolytes * Replete when necessary. Nutrition: * Regular diet. DVT Prophylaxis: * Heparin 5,000 units q12h SQ GI Prophylaxis: * Not indicated at this time. (Fernanda Machado MD R1) Fernanda Machado MD R1 Nov 26, 2016 18:08 Ani Leary MD Nov 27, 2016 13:00
[2016-11-26 18:44] LABS: ANION GAP 7 MEQ/L (5-15); BLOOD UREA NITROGEN 13 MG/DL (7-18); CHLORIDE 103 MEQ/L (98-107); GLOMERULAR FILTRATION RATE 125 ML/MIN (>89); SODIUM (NA) 137 MEQ/L (136-145)
[2016-11-26] MEDS ORDERED: MAGNESIUM HYDROXIDE SUSP 30 ML CUP PO PRN (18:45)
[2016-11-26] MEDS ORDERED: FLUMAZENIL 0.5 MG/5 ML VIAL IV PUSH PRN (18:45)
[2016-11-26] MEDS ORDERED: LACTULOSE SYRUP 20 GM/30 ML CUP PO PRN (18:45)
[2016-11-26] MEDS ORDERED: LORazepam 2 MG/ML VIAL IV PUSH PRN ×4 (18:45)
[2016-11-26] MEDS ORDERED: LORazepam 1 MG TAB PO PRN (18:45)
[2016-11-26] MEDS ORDERED: ACETAMINOPHEN 325 MG TAB PO PRN (18:45)
[2016-11-26] MEDS ORDERED: NALOXONE HCL 0.4 MG/ML AMP IV PRN (18:45)
[2016-11-26] MEDS ORDERED: Vancomycin Consult Pharmacy 1 EA OTHER SCH (18:45)
[2016-11-26] MEDS ORDERED: SENNOSIDES 8.6 MG TAB PO PRN (18:45)
[2016-11-26] MEDS ORDERED: BISACODYL 10 MG SUPP RECTAL PRN (18:45)
[2016-11-26] MEDS: NICOTINE 21 MG/24 HR PATCH T-DERMAL SCH (19:04)
[2016-11-26 19:19] LABS: ALT (GPT) 13 U/L (12-78); AST (GOT) 13 U/L (15-37)
[2016-11-26 19:21] LABS: ALKALINE PHOSPHATASE 94 U/L (45-117); TOTAL BILIRUBIN ADULT 0.5 MG/DL (0.2-1.0)
[2016-11-26 20:00] VITALS: BP 155/76; PULSE 78; RESP 19; TEMP 95.8; O2SAT 97
[2016-11-26] MEDS: DOCUSATE SODIUM 50 MG/SENNA 8.6 MG TAB PO SCH (20:41)
[2016-11-26] MEDS: LORazepam 2 MG TAB PO PRN (20:41)
[2016-11-26] MEDS: HEPARIN SODIUM - SQ 10,000 UNITS/ML VIAL SQ SCH (20:41)
[2016-11-26] MEDS: SODIUM CHLORIDE 0.9% FLUSH 10 ML FLUSH IV FLUSH SCH (20:42)
[2016-11-26] MEDS ORDERED: SODIUM CHLORIDE 0.9% FLUSH 10 ML FLUSH IV FLUSH SCH (21:00)
--- NOTE | 2016-11-26 21:14 | RADRPT ---
EXAM DATE/TIME: 11/26/2016 19:55 [place] COMPARISON: No previous studies available for comparison. INDICATIONS : Bilateral leg swelling. MEDICAL HISTORY : Hypertension. Hypercholesterolemia. Chronic obstructive pulmonary disease. Headache. Emphysema. Dys pnea. Weight gain. Herniated disks in back. Alcohol use. Methicillin-Resistant Staph Aureus. Mendez creatitis. Right foot cellulitis. SURGICAL HISTORY : Tonsillectomy. Vascular occlusion clearing in right groin. ENCOUNTER: Initial ACUITY: 1 week PAIN SCORE: 5/10 LOCATION: Bilateral legs. TECHNIQUE: Venous ultrasound of the left and right leg was performed from the inguinal ligament to the proximal calf. Real-time, color Doppler and spectral tracing, compression and augmentation techniques were us ed. FINDINGS: RIGHT LEG: There is normal compressibility of the deep venous system from the inguinal region to the proximal ca lf. No echogenic clot is seen in the lumen of the common femoral, femoral, popliteal, and posterior tibial veins. There is a normal response of the venous system to proximal and distal augmentation an d respiration. 2.5 cm right inguinal node LEFT LEG: There is normal compressibility of the deep venous system from the inguinal region to the proximal ca lf. No echogenic clot is seen in the lumen of the common femoral, femoral, popliteal, and posterior tibial veins. There is a normal response of the venous system to proximal and distal augmentation an d respiration. 3.3 cm left inguinal node CONCLUSION: Negative for deep venous thrombosis. Bilateral inguinal adenopathy. Cayetano Gabriel MD FACR on November 26, 2016 at 21:11 Board Certified Radiologist. This report was verified electronically.
[2016-11-26] MEDS: BUDESONIDE-FORMOTEROL 160/4.5 MCG INHALER INH SCH (22:07)
[2016-11-26] MEDS: VANCOMYCIN INJ 1,600 MG in SODIUM CHLORID 0.9% 500 ML INJ 500 ML IV SCH (22:09)
[2016-11-27] VITALS (7 sets, daily range): BP systolic 128–162; BP diastolic 63–76; PULSE 72–95; RESP 17–21; TEMP 95.7–98.1; O2SAT 93–98
[2016-11-27 05:40] LABS: BASOPHIL # 0.1 TH/MM3 (0-0.2); BASOPHIL % 0.9 % (0.0-2.0); EOSINOPHIL # 0.4 TH/MM3 (0-0.4); EOSINOPHIL % 4.2 % (0.0-4.0); HEMATOCRIT 30.4 % (39.0-51.0); HEMO FLAGS DIFF FINAL; LYMPH % 27.2 % (9.0-44.0); LYMPHOCYTE # 2.3 TH/MM3 (1.0-4.8); MEAN CELL VOLUME 101.1 FL (80.0-100.0); MEAN CORPUSCULAR HEMOGLOBIN 33.2 PG (27.0-34.0); MEAN CORPUSCULAR HGB CONC 32.8 % (32.0-36.0); MONO % 7.8 % (0.0-8.0); NEUT % 59.9 % (16.0-70.0); PLATELET COUNT 220 TH/MM3 (150-450); RED BLOOD COUNT 3.01 MIL/MM3 (4.50-5.90); RED CELL DISTRIBUTION WIDTH 15.4 % (11.6-17.2); WHITE BLOOD COUNT 8.4 TH/MM3 (4.0-11.0)
[2016-11-27 06:19] LABS: BICARBONATE 27.6 MEQ/L (21.0-32.0); POTASSIUM 3.7 MEQ/L (3.5-5.1)
[2016-11-27] MEDS ORDERED: PNEUMOCOCCAL POLYVALENT INJ 25 MCG/0.5 ML SYR IM ONE (09:00)
[2016-11-27] MEDS: BUDESONIDE-FORMOTEROL 160/4.5 MCG INHALER INH SCH ×2 (09:00→20:33)
[2016-11-27] MEDS: DOCUSATE SODIUM 50 MG/SENNA 8.6 MG TAB PO SCH ×2 (09:18→20:31)
[2016-11-27] MEDS: LISINOPRIL 10 MG TAB PO SCH (09:18)
[2016-11-27] MEDS: VANCOMYCIN INJ 1,600 MG in SODIUM CHLORID 0.9% 500 ML INJ 500 ML IV SCH ×2 (09:18→20:32)
[2016-11-27] MEDS: NICOTINE 21 MG/24 HR PATCH T-DERMAL SCH (09:18)
[2016-11-27] MEDS: PRAVASTATIN SOD 40 MG TAB PO SCH (09:18)
[2016-11-27] MEDS: LACTOBACILLUS ACIDOPHILUS TAB PO SCH ×2 (09:18→20:31)
[2016-11-27] MEDS: HEPARIN SODIUM - SQ 10,000 UNITS/ML VIAL SQ SCH (09:19)
[2016-11-27] MEDS: SODIUM CHLORIDE 0.9% FLUSH 10 ML FLUSH IV FLUSH SCH ×2 (09:19→20:33)
[2016-11-27] MEDS ORDERED: NALOXONE HCL 0.4 MG/ML AMP IV PRN (11:30)
[2016-11-27] MEDS ORDERED: ACETAMINOPHEN/HYDROcodone 325 MG/5 MG TAB PO PRN (11:30)
[2016-11-27] MEDS ORDERED: ACETAMINOPHEN 325 MG TAB PO PRN (11:30)
[2016-11-27] MEDS ORDERED: MORPHINE SULFATE 4 MG/ML INJ IV PRN (11:30)
[2016-11-27] MEDS ORDERED: RESP: ALBUTEROL 2.5 MG/3 ML NEB (PRN) INH (13:00)
--- NOTE | 2016-11-27 13:10 | HHI.FPPN ---
Subjective Remarks No acute events overnight. Vital signs unremarkable. This morning patient states that he still has pain in his lower extremities that has not improved. Has not taken any pain medications. Does endorse improvement in erythema and edema of his lower extremities bilaterally. Endorses diaphoresis but denies chest pain. SOB is at his baseline. Denies nausea and is eating well. (Pepper Shrestha MD R2) Objective Vitals Vital Signs Date Time Temp Pulse Resp B/P Pulse Ox O2 Delivery O2 Flow Rate FiO2 11/27/16 08:57 97 21 11/27/16 08:00 98.1 72 18 128/69 97 11/27/16 04:00 95.7 78 21 129/63 95 11/27/16 00:00 96.8 95 21 134/63 93 11/26/16 20:58 21 11/26/16 20:00 95.8 78 19 155/76 97 11/26/16 17:39 98 11/26/16 16:43 97.8 78 24 147/67 98 Room Air I/O 11/26/16 11/26/16 11/26/16 11/27/16 11/27/16 11/27/16 07:00 15:00 23:00 07:00 15:00 23:00 Intake Total 240 ml 770 ml Output Total 600 ml 550 ml Balance -360 ml 220 ml Intake Oral 240 ml 240 ml IV Total 530 ml Output Urine Total 600 ml 550 ml (Pepper Robb MD R2) Result Diagram: 11/27/1640611/27/167 Objective Remarks GEN: Well-developed, well-nourished patient. No acute distress. Poor hygiene CV: Regular rate and rhythm without obvious murmurs LUNGS: Clear to auscultation bilaterally but with decreased air movement bilaterally. Normal respiratory effort. No wheezes, rales, rhonchi. GI: Soft, nontender, nondistended. No palpable masses. EXT: No calf tenderness * Right lower le cm lesion with surround granulation tissue without drainage or pus below the knee. 1+pitting edema up to mid tibial, 1 cm well healing lesion, small round 2nd toe. * Left lower le cm lesion, oval lesion with surrounding granulation tissue without drainage or pus. 2 cm well healing lesion on great toe. 1+ pitting edema up to mid hagan NEURO/PSYCH: Awake, alert. Appropriate insight and judgment. Normal speech ( Pepper Robb MD R2) A/P Assessment and Plan Patient is 61 year old male with PMH significant for COPD, HTN, and right foot cellulitis. Admitted for bilateral lower extremity cellulitis that failed outpatient treatment therapy. Discharge Planning Likely tomorrow pending continued improvement in cellulitis sdw Dr. Domínguez and Dr. Leary (Pepper Robb MD R2) Attending Attestation Patient seen and examined. Case reviewed and discussed with the resident team. Agree with plan of care as discussed with me and documented in the resident note. (Ani Leary MD) Problem List: (1) Cellulitis of both lower extremities Status: Acute Plan: History of prior right foot cellulitis and MRSA. Failed outpatient therapy with doxycycline and Keflex. No systemic symptoms. Improving with current treatment -Afebrile and no leukocytosis -US negative for thrombosis -wash feet due to poor hygiene. -Counseled about wearing tennis shoes instead of sandals but patient declines. Medications: * Vancomycin (11/27- -Likely discharge on Bactrim * [place] for pain medications (2) History of COPD Status: Acute Plan: Hx of smoking x 40 years -Started on Symbicort 2 puff BID INH -Albuterol PRN -Nicotine patch -Counseled on smoking cessation. (3) Alcohol abuse Status: Chronic Plan: Macrocytic anemia likely due to alchol use. [facility] protocol. -Rally pack Educated patient on importance of stopping alcohol use. (4) Homelessness Status: Chronic Plan: Consult case management. Has medicaid so will be able to obtain ABX and PCP follow up on discharge (5) Fluid, Electrolyte, Nutrition and Prophylaxis Status: Acute Plan: Fluid: * Not indicated at this time; tolerates PO. Electrolytes * Replete when necessary. Nutrition: * Regular diet. DVT Prophylaxis: * Lovenox GI Prophylaxis: * Not indicated at this time. Chronic conditions: * HLD: continue home statin * HTN: continue home lisinopril (Pepper Robb MD R2) Pepper Robb MD R2 Nov 27, 2016 13:10 Ani Leary MD Nov 28, 2016 09:07
[2016-11-27] MEDS ORDERED: ACETAMINOPHEN/HYDROcodone 325 MG/5 MG TAB PO ONE (13:15)
[2016-11-27] MEDS: ACETAMINOPHEN/HYDROcodone 325 MG/10 MG TAB PO PRN ×2 (15:32→20:32)
[2016-11-27] MEDS: REMOVE OLD PATCH T-DERMAL SCH (19:00)
[2016-11-27] MEDS: LORazepam 2 MG TAB PO PRN (20:31)
[2016-11-27] MEDS: ENOXAPARIN SODIUM 40 MG/0.4 ML SYRINGE SQ SCH (20:33)
[2016-11-28] VITALS (8 sets, daily range): BP systolic 118–135; BP diastolic 65–71; PULSE 72–84; RESP 16–19; TEMP 96–98; O2SAT 94–99
[2016-11-28] MEDS: ACETAMINOPHEN/HYDROcodone 325 MG/10 MG TAB PO PRN ×5 (01:30→22:12)
[2016-11-28 06:02] LABS: BICARBONATE 28.6 MEQ/L (21.0-32.0); POTASSIUM 3.9 MEQ/L (3.5-5.1)
[2016-11-28] MEDS ORDERED: PHARMACY ORDERED LAB ONE (08:45)
[2016-11-28] MEDS: REMOVE OLD PATCH T-DERMAL SCH (08:46)
[2016-11-28] MEDS: MULTIVITAMINS/MINERALS THERAPEUTIC TAB PO SCH (08:46)
[2016-11-28] MEDS: LISINOPRIL 10 MG TAB PO SCH (08:46)
[2016-11-28] MEDS: NICOTINE 21 MG/24 HR PATCH T-DERMAL SCH (08:46)
[2016-11-28] MEDS: DOCUSATE SODIUM 50 MG/SENNA 8.6 MG TAB PO SCH ×2 (08:47→20:57)
[2016-11-28] MEDS: SODIUM CHLORIDE 0.9% FLUSH 10 ML FLUSH IV FLUSH SCH ×2 (08:47→20:57)
[2016-11-28] MEDS: BUDESONIDE-FORMOTEROL 160/4.5 MCG INHALER INH SCH ×2 (08:47→20:56)
[2016-11-28] MEDS: LACTOBACILLUS ACIDOPHILUS TAB PO SCH ×2 (08:47→20:57)
[2016-11-28] MEDS: FOLIC ACID 1 MG TAB PO SCH (08:47)
--- NOTE | 2016-11-28 08:50 | HHI.FPPN ---
Subjective Remarks Patient was seen and examined this morning. He states he felt sweaty overnight but denies fevers. He denies chest pain, shortness of breath,n/v/d/c, wheezing. He states the left foot all the way to the knee still hurts, especially when he walks and notes he feels exactly the same as yesterday. He does not feel ready to go home yet given persistent pain. (Mikayla Carvajal MD R1) Objective Vitals Vital Signs Date Time Temp Pulse Resp B/P Pulse Ox O2 Delivery O2 Flow Rate FiO2 11/28/16 08:00 97.8 76 17 131/71 94 11/28/16 04:02 97.7 78 16 123/70 99 11/28/16 02:30 20 11/28/16 00:00 96.0 84 16 126/69 99 11/27/16 20:00 96.6 80 17 136/65 98 11/27/16 16:00 96.7 85 17 128/70 96 11/27/16 12:00 97.9 87 19 162/76 97 11/27/16 08:57 97 21 I/O 11/27/16 11/27/16 11/27/16 11/28/16 11/28/16 11/28/16 07:00 15:00 23:00 07:00 15:00 23:00 Intake Total 770 ml 480 ml 480 ml 360 ml Output Total 550 ml 400 ml 650 ml 500 ml Balance 220 ml 80 ml -170 ml -140 ml Intake Oral 240 ml 480 ml 480 ml 360 ml IV Total 530 ml Output Urine Total 550 ml 400 ml 650 ml 500 ml # Bowel Movements 1 0 (Mikayla Carvajal MD R1) Result Diagram: 11/27/16 0407 11/28/16 0447 Imaging Last Impressions Lower Extremity Ultrasound 11/26/16 0000 Signed Impressions: Service Date/Time: Saturday, November 26, 2016 19:55 - CONCLUSION: Negative for deep venous thrombosis. Bilateral inguinal adenopathy. Cayetano Gabriel MD FACR Objective Remarks GEN: Well-developed, well-nourished patient. No acute distress. Poor hygiene CV: Regular rate and rhythm without obvious murmurs LUNGS: Clear to auscultation bilaterally with good air movement. Normal respiratory effort. No wheezes, rales, rhonchi. GI: Soft, nontender, nondistended. No palpable masses. EXT: No calf tenderness * Right lower le cm lesion with surround granulation tissue without drainage or pus below the knee. 1 cm well healing lesion, small round 2nd toe. No pitting edema today * Left lower le cm lesion, oval lesion with surrounding granulation tissue without drainage or pus. 2 cm well healing lesion on great toe. No pitting edema today * He is tender to palpation at non-specific areas on either LE, without any obvious points of tenderness. The extremities appear to have significantly improved since admission. NEURO/PSYCH: Awake, alert. Appropriate insight and judgment. Normal speech Medications and IVs Inpatient Medications Acetaminophen (Tylenol) 650 mg Q6H PRN PO PAIN SCALE 1 TO 2; Start 11/27/16 at 11:30 Acetaminophen/ Hydrocodone Bitart ([place] 5-325 Mg) 1 tab ONCE ONCE PO ; Start 11/27/16 at 13:15; Stop 11/27/16 at 13:16; Status DC Acetaminophen/ Hydrocodone Bitart ([place] 10-325 Mg) 1 tab Q4H PRN PO PAIN SCALE 6 TO 10 Last administered on 11/28/16 01:30; Start 11/27/16 at 11:30 Albuterol Sulfate (Albuterol Neb) 2.5 mg Q2HR NEB PRN INH SHORTNESS OF BREATH; Start 11/27/16 at 13:00 Bisacodyl (Dulcolax Supp) 10 mg DAILY PRN RECTAL SEVERE CONSITIPATION; Start at 18:45 Budesonide/ Formoterol Fumarate (Symbicort 160-4.5 Inh) 2 puff BID INH Last administered on 11/27/16 20:33; Start 11/26/16 at 21:00 Enoxaparin Sodium (Lovenox Inj) 40 mg Q24H SQ Last administered on 11/27/16 20: 33; Start 11/27/16 at 21:00 Flumazenil (Romazicon Inj) 0.2 mg Q1M PRN IV PUSH SEE LABEL COMMENTS; Start 11/26/16 at 18:45 Folic Acid (Folate) 1 mg DAILY PO ; Start 11/28/16 at 09:00; Stop 12/03/16 at 08: 59 Heparin Sodium (Porcine) (Heparin Inj) 5,000 units Q12H SQ Last administered on 11/27/16 09:19; Start 11/26/16 at 20:00; Stop 11/27/16 at 13:06; Status DC Lactobacillus Acidophilus (Lactinex) 2 tab Q12HR PO Last administered on 20:31; Start 11/27/16 at 09:00 Lactulose (Lactulose Liq) 30 ml DAILY PRN PO SEVERE CONSITIPATION; Start at 18:45 Lisinopril (Prinivil) 10 mg DAILY PO Last administered on 11/27/16 09:18; Start 11/27/16 at 09:00 Lorazepam (Ativan Inj) 2 mg Q1H PRN IV PUSH CIWA 15-20; Start 11/26/16 at 18:45 Lorazepam (Ativan) 2 mg Q2H PRN PO CIWA 11-14 Last administered on 11/27/16 20: 31; Start 11/26/16 at 18:45 Lorazepam 2 mg 2 mg Q15M PRN IV PUSH CIWA > 20; Start 11/26/16 at 18:45 Magnesium Hydroxide (Milk Of Magnesia Liq) 30 ml Q12H PRN PO MILD - MODERATE CONSTIPATION; Start 11/26/16 at 18:45 Miscellaneous Information SPECIFIC LAB TO BE STEPHANIE... ONCE ONCE .XX ; Start at 08:45; Stop 11/28/16 at 08:46 Miscellaneous Information 1 1 DAILY T-DERMAL Last administered on 11/27/16 19: 00; Start 11/27/16 at 19:00 Morphine Sulfate (Morphine Inj) 4 mg Q3H PRN IV BREAKTHROUGH PAIN Last administered on 11/27/16 12:03; Start 11/27/16 at 11:30; Stop 11/27/16 at 13:07; Status DC Multivitamins/ Minerals Therapeutic (Theragran M Tab) 1 tab DAILY PO ; Start 11/28/16 at 09:00; Stop 12/03/16 at 08:59 Naloxone HCl (Narcan Inj) 0.4 mg UNSCH PRN IV SEE LABEL COMMENTS; Start at 11:30 Nicotine (Habitrol 21 Mg Patch.24 Hr) 1 patch DAILY T-DERMAL Last administered on 11/27/16 09:18; Start 11/26/16 at 18:45 Pharmacy Profile Note (Vancomycin Consult Pharmacy) 0 ml @ 0 mls/hr UNSCH OTHER ; Start 11/26/16 at 18:45 Pneumococcal Polyvalent Vaccine (Pneumovax-23 Inj) 25 mcg ONCE ONCE IM Last administered on 11/27/16 15:34; Start 11/27/16 at 09:00; Stop 11/27/16 at 09:01; Status DC Pravastatin Sodium (Pravachol) 40 mg DAILY PO Last administered on 11/27/16 09: 18; Start 11/27/16 at 09:00 Senna/Docusate Sodium (Whit-Colace) 1 tab BID PO Last administered on 11/27/16 20:31; Start 11/26/16 at 21:00 Sennosides (Senokot) 17.2 mg Q12H PRN PO MODERATE - SEVERE CONSTIPATION; Start 11/26/16 at 18:45 Sodium Chloride (NS Flush) 2 ml BID IV FLUSH Last administered on 11/27/16 20: 33; Start 11/26/16 at 21:00 Thiamine HCl (Vitamin B1) 100 mg DAILY PO ; Start 11/28/16 at 09:00 Vancomycin HCl/ Sodium Chloride (Vancomycin Inj/ NS 500 ml Inj) 516 ml @ 250 mls/hr Q12H IV Last administered on 11/27/16 20:32; Start 11/26/16 at 21:00 ( Mikayla Carvajal MD R1) Urinary Catheter: No (Mikayla Carvajal MD R1) Vascular Central Line Catheter: No (Mikayla Carvajal MD R1) A/P Assessment and Plan Patient is 61 year old male with PMH significant for COPD, HTN, and right foot cellulitis. Admitted for bilateral lower extremity cellulitis that failed outpatient treatment therapy. Discharge Planning Possibly tomorrow. He is not ready to go home today due to pain and given admission was due to failed outpatient management will likely be discharged 11/29 Of note, patient is homeless Case management consulted to assist with discharge dw Dr. Leary (Mikayla Carvajal MD R1) Attending Attestation Patient seen and examined. Case reviewed and discussed with the resident team. Agree with plan of care as discussed with me and documented in the resident note. (Ani Leary MD) Problem List: (1) Cellulitis of both lower extremities Status: Acute Plan: * Blood culture 11/26/16 resulted POSITIVE for gram variable molly on 11/28/16: Negative for Acinetobacter, Citrobacter, Enterobacter, Proteus, Escherichia coli , Klebsiella pneumonia, Klebsiella oxytoca, Pseudomonas aeruginosa. Further results pending * Continue vancomycin IV at this time. Will await speciation and sensitivities * Vancomycin pharmacy consult was placed * Consider broadening antibiotics as needed based on symptoms, fever, etc. Hospital course: History of prior right foot cellulitis and MRSA. Failed outpatient therapy with doxycycline and Keflex. No systemic symptoms. Improving with current treatment -Afebrile and no leukocytosis -US negative for thrombosis -Counseled on hygiene -Counseled about wearing tennis shoes instead of sandals but patient declines. Medications: * Vancomycin (11/27- -Likely discharge on Bactrim * [place] for pain medications - requiring regular dosing over last 24hr (2) History of COPD Status: Acute Plan: Hx of smoking x 40 years -Continue Symbicort 2 puff BID INH -Albuterol PRN -Nicotine patch -Counseled on smoking cessation. (3) Alcohol abuse Status: Chronic Plan: Macrocytic anemia likely due to alcohol use. [facility] protocol. -Rally pack Educated patient on importance of stopping alcohol use. (4) Homelessness Status: Chronic Plan: Consult case management. Has medicaid so will be able to obtain ABX and PCP follow up on discharge (5) HTN (hypertension) Status: Chronic Plan: Continue home dose lisinopril 10 mg daily (6) Hyperlipidemia Status: Chronic Plan: Continue home dose pravastatin 40 mg daily (7) Fluid, Electrolyte, Nutrition and Prophylaxis Status: Acute Plan: Fluid: * Not indicated at this time; tolerates PO. Electrolytes * Replete when necessary. Nutrition: * Regular diet. DVT Prophylaxis: * Lovenox GI Prophylaxis: * Not indicated at this time. (Mikayla Carvajal MD R1) Mikayla Carvajal MD R1 Nov 28, 2016 08:50 Ani Leary MD Nov 29, 2016 09:31
[2016-11-28] MEDS: THIAMINE HCL 100 MG TAB PO SCH (08:59)
[2016-11-28] MEDS: PRAVASTATIN SOD 40 MG TAB PO SCH (08:59)
[2016-11-28] MEDS: VANCOMYCIN INJ 1,600 MG in SODIUM CHLORID 0.9% 500 ML INJ 500 ML IV SCH ×2 (08:59→20:56)
[2016-11-28] MEDS: ENOXAPARIN SODIUM 40 MG/0.4 ML SYRINGE SQ SCH (20:57)
[2016-11-29] MEDS: ACETAMINOPHEN/HYDROcodone 325 MG/10 MG TAB PO PRN ×2 (02:37→06:45)
[2016-11-29 06:46] LABS: AUTOMATED NEUTROPHIL # 4.6 TH/MM3 (1.8-7.7); BASOPHIL # 0.1 TH/MM3 (0-0.2); BASOPHIL % 0.7 % (0.0-2.0); EOSINOPHIL # 0.4 TH/MM3 (0-0.4); EOSINOPHIL % 4.5 % (0.0-4.0); HEMATOCRIT 28.4 % (39.0-51.0); HEMO FLAGS DIFF FINAL; LYMPH % 28.8 % (9.0-44.0); LYMPHOCYTE # 2.3 TH/MM3 (1.0-4.8); MEAN CELL VOLUME 101.5 FL (80.0-100.0); MEAN CORPUSCULAR HEMOGLOBIN 33.9 PG (27.0-34.0); MEAN CORPUSCULAR HGB CONC 33.4 % (32.0-36.0); MONO % 8.7 % (0.0-8.0); NEUT % 57.3 % (16.0-70.0); PLATELET COUNT 203 TH/MM3 (150-450); RED CELL DISTRIBUTION WIDTH 16.2 % (11.6-17.2)
[2016-11-29 08:00] VITALS: BP 141/78; PULSE 71; RESP 18; TEMP 96.8; O2SAT 96
[2016-11-29] MEDS: VANCOMYCIN INJ 1,600 MG in SODIUM CHLORID 0.9% 500 ML INJ 500 ML IV SCH (08:28)
[2016-11-29] MEDS: NICOTINE 21 MG/24 HR PATCH T-DERMAL SCH (08:28)
[2016-11-29] MEDS: THIAMINE HCL 100 MG TAB PO SCH (08:29)
[2016-11-29] MEDS: FOLIC ACID 1 MG TAB PO SCH (08:29)
[2016-11-29] MEDS: REMOVE OLD PATCH T-DERMAL SCH (08:29)
[2016-11-29] MEDS: LISINOPRIL 10 MG TAB PO SCH (08:30)
[2016-11-29] MEDS: MULTIVITAMINS/MINERALS THERAPEUTIC TAB PO SCH (08:30)
[2016-11-29] MEDS: DOCUSATE SODIUM 50 MG/SENNA 8.6 MG TAB PO SCH (08:30)
[2016-11-29] MEDS: BUDESONIDE-FORMOTEROL 160/4.5 MCG INHALER INH SCH (08:30)
[2016-11-29] MEDS: PRAVASTATIN SOD 40 MG TAB PO SCH (08:30)
[2016-11-29] MEDS: LACTOBACILLUS ACIDOPHILUS TAB PO SCH (08:30)
[2016-11-29] MEDS: SODIUM CHLORIDE 0.9% FLUSH 10 ML FLUSH IV FLUSH SCH (08:31)
--- NOTE | 2016-11-29 09:22 | HHI.FPPN ---
Subjective Remarks Patient was seen and evaluated this morning. He complains of significant pain on the dorsal aspect of and inside both feet; pain is worse on left. He describes the pain as a throbbing pain that is present all the time. The pain is relieved with [place] 10-325 MG, which he has been asking for every 4 hours. He denies fever/chills. He denies chest pain, heart palpitation and shortness of breath apart from the usual. He admits to nausea but has been tolerating meals. He denies vomiting. He denies diarrhea. His last bowel movement was yesterday morning; patient describes stool as firm. He denies bloody or black stool. He admits to passing gas frequently. (Fernanda Machado MD R1) Objective Vitals Vital Signs Date Time Temp Pulse Resp B/P Pulse Ox O2 Delivery O2 Flow Rate FiO2 11/29/16 08:00 96.8 71 18 141/78 96 11/29/16 03:30 18 11/28/16 22:55 97.3 72 18 135/70 95 11/28/16 20:00 97.3 75 18 127/70 96 11/28/16 16:00 98.0 82 18 119/65 95 11/28/16 12:00 97.6 83 19 118/68 94 11/28/16 11:00 98 21 I/O 11/28/16 11/28/16 11/28/16 11/29/16 11/29/16 11/29/16 07:00 15:00 23:00 07:00 15:00 23:00 Intake Total 360 ml 760 ml 980 ml 360 ml Output Total 500 ml 600 ml 500 ml 600 ml Balance -140 ml 160 ml 480 ml -240 ml Intake Oral 360 ml 240 ml 480 ml 360 ml IV Total 520 ml 500 ml Output Urine Total 500 ml 600 ml 500 ml 600 ml # Bowel Movements 0 0 0 (Fernanda Machado MD R1) Result Diagram: 11/29/16 0534 11/28/16 0447 Other Results Blood Culture: Gram variable rods Imaging Last Impressions Lower Extremity Ultrasound 11/26/16 0000 Signed Impressions: Service Date/Time: Saturday, November 26, 2016 19:55 - CONCLUSION: Negative for deep venous thrombosis. Bilateral inguinal adenopathy. Cayetano Gabriel MD FACR Objective Remarks GEN: Well-developed, well-nourished patient. No acute distress. Poor hygiene. CV: Regular rate and rhythm without obvious murmurs. LUNGS: Clear to auscultation bilaterally with good air movement. Normal respiratory effort. No wheezes, rales, rhonchi. GI: Soft, nontender, nondistended. No palpable masses. EXT: No calf tenderness * Right lower le cm lesion with surround granulation tissue without drainage or pus below the knee. 1 cm well healing lesion, small round 2nd toe. No pitting edema today. * Left lower le cm lesion, oval lesion with surrounding granulation tissue without drainage or pus. 2 cm well healing lesion on great toe. Improved pitting edema today. * He is tender to palpation on dorsal aspects of both feet. The extremities appear to have significantly improved since admission. NEURO/PSYCH: Awake, alert. Appropriate insight and judgment. Normal speech Medications and IVs Current Medications Medications (Trade) Dose Ordered Sig/Ashli Route Start Time Stop Time Status Last Admin (Prinivil) 10 mg DAILY PO 11/27/16 09:00 11/29/16 08:30 (Pravachol) 40 mg DAILY PO 11/27/16 09:00 11/29/16 08:30 (Symbicort 160-4.5 Inh) 2 puff BID INH 11/26/16 21:00 11/29/16 08:30 (NS Flush) 2 ml UNSCH PRN IV FLUSH 11/26/16 18:45 (NS Flush) 2 ml BID IV FLUSH 11/26/16 21:00 11/29/16 08:31 (Whit-Colace) 1 tab BID PO 11/26/16 21:00 11/29/16 08:30 (Milk Of Magnesia Liq) 30 ml Q12H PRN PO 11/26/16 18:45 (Senokot) 17.2 mg Q12H PRN PO 11/26/16 18:45 (Dulcolax Supp) 10 mg DAILY PRN RECTAL 11/26/16 18:45 (Lactulose Liq) 30 ml DAILY PRN PO 11/26/16 18:45 (Romazicon Inj) 0.2 mg Q1M PRN IV PUSH 11/26/16 18:45 (Ativan) 1 mg Q4H PRN PO 11/26/16 18:45 (Ativan Inj) 1 mg Q4H PRN IV PUSH 11/26/16 18:45 (Ativan) 2 mg Q2H PRN PO 11/26/16 18:45 11/27/16 20:31 (Ativan Inj) 2 mg Q2H PRN IV PUSH 11/26/16 18:45 (Ativan Inj) 2 mg Q1H PRN IV PUSH 11/26/16 18:45 Lorazepam 2 mg 2 mg Q15M PRN IV PUSH 11/26/16 18:45 (Vancomycin Consult Pharmacy) 0 ml @ 0 mls/hr UNSCH OTHER 11/26/16 18:45 (Habitrol 21 Mg Patch.24 Hr) 1 patch DAILY T-DERMAL 11/26/16 18:45 11/29/16 08:28 Miscellaneous Information 1 1 DAILY T-DERMAL 11/27/16 19:00 11/28/16 08:46 (Vancomycin Inj/ NS 500 ml Inj) 516 ml @ 250 mls/hr Q12H IV 11/26/16 21:00 11/29/16 08:28 (Lactinex) 2 tab Q12HR PO 11/27/16 09:00 11/29/16 08:30 ([place] 5-325 Mg) 1 tab Q4H PRN PO 11/27/16 11:30 ([place] 10-325 Mg) 1 tab Q4H PRN PO 11/27/16 11:30 11/29/16 06:45 (Narcan Inj) 0.4 mg UNSCH PRN IV 11/27/16 11:30 (Tylenol) 650 mg Q6H PRN PO 11/27/16 11:30 (Lovenox Inj) 40 mg Q24H SQ 11/27/16 21:00 11/28/16 20:57 (Folate) 1 mg DAILY PO 11/28/16 09:00 12/03/16 08:59 11/29/16 08:29 (Vitamin B1) 100 mg DAILY PO 11/28/16 09:00 11/29/16 08:29 (Theragran M Tab) 1 tab DAILY PO 11/28/16 09:00 12/03/16 08:59 11/29/16 08:30 Miscellaneous Information SPECIFIC LAB TO BE STEPHANIE... ONCE ONCE .XX 11/30/16 08:45 11/30/16 08:46 (Fernanda Machado MD R1) Urinary Catheter: No (Fernanda Machado MD R1) Vascular Central Line Catheter: No (Fernanda Machado MD R1) A/P Assessment and Plan Patient is 61 year old male with PMH significant for COPD, HTN, and right foot cellulitis. Admitted for bilateral lower extremity cellulitis that failed outpatient treatment therapy. Discharge Planning Possibly today pending blood culture results. Of note, patient is homeless. Case management consulted to assist with discharge. adilson Leary (Fernanda Machado MD R1) Attending Attestation The exam, history, and the medical decision-making described in the above note were completed with the assistance of the resident physician. I reviewed and agree with the findings presented. I attest that I had a [id number] encounter with the patient on the same day, and personally performed and documented my assessment and findings in the medical record. This patient continues to have significant pain into the legs and the feet associated with the edema from the cellulites. He denies pain in these areas at baseline. Due to the fact that he has already failed outpatient therapy and his preliminary culture is suspicious for multiple organisms, he will remain inpatient on IV antibiotics until final speciation and sensitivities are known. (Ani Leary MD) Problem List: (1) Cellulitis of both lower extremities Status: Acute Plan: * Blood culture 11/26/16 resulted POSITIVE for gram variable molly on 11/28/16: Negative for Acinetobacter, Citrobacter, Enterobacter, Proteus, Escherichia coli , Klebsiella pneumonia, Klebsiella oxytoca, Pseudomonas aeruginosa. Further results pending. * Continue vancomycin IV at this time. Will await speciation and sensitivities. * Vancomycin pharmacy consult was placed. * Consider broadening antibiotics as needed based on symptoms, fever, etc. Hospital course: -History of prior right foot cellulitis and MRSA. Failed outpatient therapy with doxycycline and Keflex. No systemic symptoms. Improving with current treatment. -Afebrile and no leukocytosis. -US negative for thrombosis. -Counseled on hygiene. -Counseled about wearing tennis shoes instead of sandals but patient declines. Medications: * Vancomycin (11/27- -Likely discharge on Bactrim. * [place] for pain medications - requiring regular dosing over last 24hr. (2) History of COPD Status: Acute Plan: Hx of smoking x 40 years. -Continue Symbicort 2 puff BID INH. -Albuterol PRN. -Nicotine patch. -Counseled on smoking cessation. (3) Alcohol abuse Status: Chronic Plan: Macrocytic anemia likely due to alcohol use. [facility] protocol. -Rally pack. -Educated patient on importance of stopping alcohol use. (4) Homelessness Status: Chronic Plan: Consult case management. Has medicaid so will be able to obtain ABX and PCP follow up on discharge. (5) HTN (hypertension) Status: Chronic Plan: Continue home dose lisinopril 10 mg daily. (6) Hyperlipidemia Status: Chronic Plan: Continue home dose pravastatin 40 mg daily. (7) Fluid, Electrolyte, Nutrition and Prophylaxis Status: Acute Plan: Fluid: * Not indicated at this time; tolerates PO. Electrolytes * Replete when necessary. Nutrition: * Regular diet. DVT Prophylaxis: * Lovenox. GI Prophylaxis: * Not indicated at this time. (Fernanda Machado MD R1) Fernanda Machado MD R1 Nov 29, 2016 09:22 Ani Leary MD Nov 29, 2016 09:35
[2016-11-29] MEDS: LORazepam 2 MG TAB PO PRN (10:42)
[2016-11-29] MEDS: ACETAMINOPHEN/HYDROcodone 325 MG/10 MG TAB PO SCH ×2 (11:36→15:52)
[2016-11-29 12:00] VITALS: BP 135/67; PULSE 80; RESP 18; TEMP 96; O2SAT 96
[2016-11-29] MEDS ORDERED: HYDR-3516 PO (14:08)
[2016-11-29] MEDS ORDERED: SULF1TAB23 PO (15:13)
--- NOTE | 2016-11-29 15:13 | HHI.DCPOC ---
Discharge Care Plan Diagnosis: (1) Cellulitis of both lower extremities Goals to Promote Your Health * To prevent worsening of your condition and complications * To maintain your health at the optimal level Directions to Meet Your Goals Take your medications as prescribed Follow your dietary instruction Follow activity as directed Keep your appointments as scheduled Take your immunizations and boosters as scheduled If your symptoms worsen call your PCP, if no PCP go to Urgent Care Center or Emergency Room Smoking is Dangerous to Your Health. Avoid second hand smoke Call the 24-hour hour crisis hotline for domestic abuse at Fernanda Machado MD R1 Nov 29, 2016 15:13
[2016-11-29] MEDS ORDERED: CANE/WOOD/MENS1 MI1 (15:18)
[2016-11-29 16:00] VITALS: BP 163/74; PULSE 78; RESP 20; TEMP 95.9; O2SAT 96
[2016-11-30] MEDS ORDERED: PHARMACY ORDERED LAB ONE (08:45)
--- NOTE | 2016-12-01 17:38 | HHI.DS ---
Discharge Summary Admission Date Nov 26, 2016 at 17:21 Discharge Date: Nov 29, 2016 Admitting Diagnosis Left lower ext cellulitis failed outpatient treatment, PAD (1) Cellulitis of both lower extremities Diagnosis: Principal (2) History of COPD Diagnosis: Secondary Plan: Hx of smoking x 40 years. (3) Alcohol abuse Diagnosis: Secondary (4) Homelessness Diagnosis: Secondary (5) HTN (hypertension) Diagnosis: Secondary (6) Hyperlipidemia Diagnosis: Secondary Brief History Patient is 61 year old male with worsening left lower extremity and possible new onset right lower extremity cellulitis. Patient was seen in the ED on Tuesday and Tuesday of this week for left lower extremity cellulitis. He was discharged from the ED on doxycycline and Keflex. Patient states that redness and pain have gotten worse over the past few days. He also complains of new lesions on his right hallux and 2nd toe. When patient woke up on Tuesday, he first noticed painful swelling of his left foot. He describes the pain as a throbbing pain that is there all the time. He says that the pain radiates up to below his knee. He also admits to bleeding of a lesion on his left hallux. He denies trauma. Patient states that the right foot started to swell and become painful yesterday. He describes a similar pain as he is experiencing on the left side. Naproxen has not relieved pain in either foot. Patient denies fever/chills, chest pain, shortness of breath, and nausea vomiting. He denies constipation but admits to diarrhea since Tuesday. He says stool is loose/watery, non-bloody x 2/day. He denies abdominal pain. He denies hx of c.diff. Of note, patient is a heavy drinker. He denies shakes or seizure-like episodes when he has gone days without alcohol. CBC/BMP: 11/29/16 0534 11/28/16 0447 Significant Findings Laboratory Tests Test 11/29/16 05:34 Red Blood Count 2.80 MIL/MM3 (4.50-5.90) Hemoglobin 9.5 GM/DL (13.0-17.0) Hematocrit 28.4 % (39.0-51.0) Mean Corpuscular Volume 101.5 FL (80.0-100.0) Monocytes (%) (Auto) 8.7 % (0.0-8.0) Eosinophils (%) (Auto) 4.5 % (0.0-4.0) Imaging Last Impressions Lower Extremity Ultrasound 11/26/16 0000 Signed Impressions: Service Date/Time: Saturday, November 26, 2016 19:55 - CONCLUSION: Negative for deep venous thrombosis. Bilateral inguinal adenopathy. Cayetano Gabriel MD FACR PE at Discharge GEN: Well-developed, well-nourished patient. No acute distress. Poor hygiene. CV: Regular rate and rhythm without obvious murmurs. LUNGS: Clear to auscultation bilaterally with good air movement. Normal respiratory effort. No wheezes, rales, rhonchi. GI: Soft, nontender, nondistended. No palpable masses. EXT: No calf tenderness * Right lower le cm lesion with surround granulation tissue without drainage or pus below the knee. 1 cm well healing lesion, small round 2nd toe. No pitting edema today. * Left lower le cm lesion, oval lesion with surrounding granulation tissue without drainage or pus. 2 cm well healing lesion on great toe. Improved pitting edema today. * He is tender to palpation on dorsal aspects of both feet. The extremities appear to have significantly improved since admission. NEURO/PSYCH: Awake, alert. Appropriate insight and judgment. Normal speech Hospital Course Patient was admitted with right lower extremity cellulitis after failing outpatient therapy with doxycycline and Keflex and new onset left lower extremity cellulitis. Patient was afebrile and without leukocytosis at admission. Vitals and labs remained stable and within normal limits throughout the stay. Lower extremity US was performed to rule out thrombosis. Patient was treated with IV Vancomycin and discharged on PO Sulfamethoxazole-Trimethoprim. Pt Condition on Discharge: Stable Discharge Disposition: Discharge Home Discharge Instructions DIET: Follow Instructions for: As Tolerated, No Restrictions Activities you can perform: Regular-No Restrictions Follow up Referrals: PCP Follow-up - 1 Week New Medications: Cane/Wood/Mens Standard (Cane/Wood/Mens Standard) 1 Mis Mis 1 EA .ROUTE DIRECTED #1 EA Sulfamethoxazole-Trimethoprim (Sulfamethoxazole-Trimethoprim) 800-160 Mg Tab 1 TAB PO BID Infection #20 Ref 0 TAB Hydrocodone-Acetaminophen (Hydrocodone-Acetaminophen) 5-325 mg Tab 1-2 TAB PO Q4-6H PRN PAIN SCALE 3 TO 5 #20 TAB Continued Medications: Albuterol 8.5 GM Inh (Proair Hfa 8.5 GM Inh) 90 Mcg/Act Aer 90 MCG INH BID #1 Fluticasone-Salmeterol Inh (Advair Diskus Inh) 250-50 Mcg/Blist Aer 2 PUFF INH BID Rinse mouth after use. #1 Ref 0 INHALER Lisinopril (Lisinopril) 10 Mg Tab 10 MG PO DAILY #30 Ref 0 TAB Lovastatin (Lovastatin) 40 Mg Tab 40 MG PO DAILY #30 Fernanda Machado MD R1 Dec 01, 2016 17:38
== END 2016-11-29 17:55 | disposition home or self-care (01) | DRG 603 ==
LOC: NEPE 16:37 → NEDA 17:21 → N07B 19:32
PROVIDERS: ADMIT Family Medicine; ATTEND Family Medicine
DX: L03.116 Cellulitis of left lower limb (principal); I73.9 Peripheral vascular disease, unspecified; I10 Essential (primary) hypertension; L03.115 Cellulitis of right lower limb; F10.10 Alcohol abuse, uncomplicated; F17.210 Nicotine dependence, cigarettes, uncomplicated; F12.90 Cannabis use, unspecified, uncomplicated; J44.9 Chronic obstructive pulmonary disease, unspecified; E78.5 Hyperlipidemia, unspecified; G47.30 Sleep apnea, unspecified; D53.9 Nutritional anemia, unspecified; Z86.14 Personal history of Methicillin resistant Staphylococcus aureus infection; Z59.0 Homelessness; R19.7 Diarrhea, unspecified; Z23 Encounter for immunization
CPT/HCPCS: 80048; 80053; 80202; 80307; 82948; 85025; 87040; 87205; 90732; 93970; 96365; J0690; J1644; J1650; J2270; J3370; J7040

== ENCOUNTER 2017-02-03 14:13 | Emergency (ER) | payer MEDICAID ==
[~2017-02-03] VITALS: Ht 175.3 cm; Wt 80.0 kg
[~2017-02-03 14:13] MED LIST changes: +CANE/WOOD/MENS1 MI1; -CEPH-460 PO; -CLIN150 PO; -DOXY100C PO; +HYDR-3516 PO; -NAPR500T PO; +SULF1TAB23 PO
[2017-02-03 14:27] VITALS: BP 103/55; PULSE 96; RESP 20; TEMP 97.7; O2SAT 94
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
[2017-02-03] MEDS ORDERED: ROBA500T PO (15:40)
[2017-02-03] MEDS ORDERED: KETOROLAC TROMETHAMINE 60 MG/2 ML (IM) VIAL IM ONE (16:00)
== END 2017-02-03 16:08 | disposition home or self-care (01) ==
LOC: NEPD 14:13
DX: S39.012A Strain of muscle, fascia and tendon of lower back, initial encounter (principal); F17.210 Nicotine dependence, cigarettes, uncomplicated; F12.90 Cannabis use, unspecified, uncomplicated; X50.3XXA Overexertion from repetitive movements, initial encounter; Y93.H2 Activity, gardening and landscaping; Y92.007 Garden or yard of unspecified non-institutional (private) residence as the place of occurrence of the external cause
CPT/HCPCS: 96372; 99284; J1885

== ENCOUNTER 2017-02-08 11:45 | Inpatient (IN) | payer MEDICAID ==
[~2017-02-08] VITALS: Ht 172.7 cm; Wt 79.0 kg
[2017-02-08] VITALS (11 sets, daily range): BP systolic 110–148; BP diastolic 67–79; PULSE 76–90; RESP 16–21; TEMP 98–100.7; O2SAT 93–96
[~2017-02-08 11:45] MED LIST changes: -CANE/WOOD/MENS1 MI1; -HYDR-3516 PO; +ROBA500T PO; -SULF1TAB23 PO
[2017-02-08] MEDS ORDERED: SODIUM CHLORIDE 0.9% FLUSH 10 ML FLUSH IV FLUSH PRN ×2 (13:00→15:45)
--- NOTE | 2017-02-08 13:44 | PD ---
HPI Chief Complaint: Skin Problem Time Seen by Provider: 13:10 Travel History International Travel<30 days: No Contact w/Intl Traveler<30days: No Traveled to known affect area: No History of Present Illness HPI 61 YO M with PMH of COPD, MRSA, chronic alcoholism, PAD, s/p fem pop bypass by Dr. Locke in July presents to the ED for evaluation of 3 day history of pain, redness and swelling of the right groin. Patient denies fever, chills, nausea, vomiting, difficulties with urination, pain in the right leg, numbness, tingling , weakness, limitations to range of motion of the right leg. He states that he saw Dr. Locke this morning and was instructed to come to the ED. PFSH Past Medical History Hx Anticoagulant Therapy: No Arthritis: No Asthma: No Autoimmune Disease: No Heart Rhythm Problems: No Cancer: No Cardiovascular Problems: Yes (HTN) High Cholesterol: Yes Chemotherapy: No Chest Pain: No Congestive Heart Failure: No COPD: Yes Cerebrovascular Accident: No Diabetes: No Diminished Hearing: No Endocrine: No Gastrointestinal Disorders: Yes GERD: No Genitourinary: No Headaches: Yes Hepatitis: No Hiatal Hernia: No Hypertension: Yes Immune Disorder: No Implanted Vascular Access Dvce: No Medical other: Yes (pancreatitis) Musculoskeletal: Yes Neurologic: Yes Psychiatric: No Reproductive: No Respiratory: Yes Migraines: No Pancreatitis: Yes Radiation Therapy: No Seizures: No Sleep Apnea: Yes Thyroid Disease: No Ulcer: No Past Surgical History Abdominal Surgery: No AICD: No Arteriovenous Shunt: No Cardiac Surgery: No Ear Surgery: No Endocrine Surgery: No Eye Surgery: No Genitourinary Surgery: No Gynecologic Surgery: No Insulin Pump: No Joint Replacement: No Oral Surgery: Yes (tonsillectomy) Pacemaker: No Thoracic Surgery: No Tonsillectomy: Yes Social History Alcohol Use: Yes (10-12 beer daily) Tobacco Use: Yes (2 pack per day) Substance Use: Yes (marijuana) Allergies-Medications (Allergen,Severity, Reaction): Coded Allergies: codeine (Unverified Adverse Reaction, Severe, N&V, 02/03/17) *MDRO Multi-Drug Resistant Organism (Verified Adverse Reaction, Unknown, ) MRSA PCR Screen POSITIVE - 12/31/2015 MRSA (blood) - 08/2004 Reported Meds & Prescriptions Reported Meds & Active Scripts Active Reported Advair Diskus Inh (Fluticasone-Salmeterol Inh) 250-50 Mcg/Blist Aer 2 Puff INH BID Rinse mouth after use. Proair Hfa 8.5 GM Inh (Albuterol Sulfate) 90 Mcg/Act Aer 90 Mcg INH BID Lovastatin 40 Mg Tab 40 Mg PO DAILY Lisinopril 10 Mg Tab 10 Mg PO DAILY Review of Systems Except as stated in HPI: all other systems reviewed are Neg Physical Exam Narrative GENERAL: Well-nourished, well-developed pleasant white male in no acute distress. SKIN: Focused skin assessment warm/dry. SKIN: There is an indurated area in the right groin which measures about 5 cm in diameter. It is fluctuant but there is no pointing or drainage. There is a large zone of inflammation around it that tracks into the scrotum but no lymphangitis. HEAD: Normocephalic. EYES: No scleral icterus. No injection or drainage. NECK: Supple, trachea midline. No JVD or lymphadenopathy. CARDIOVASCULAR: Regular rate and rhythm without murmurs, gallops, or rubs. 2+ DP and radial pulses bilaterally. RESPIRATORY: Breath sounds equal bilaterally. No accessory muscle use. GASTROINTESTINAL: Abdomen soft, non-tender, nondistended. GENITOURINARY: Circumcised. Testes descended bilaterally without evidence of rotation. No lesions or erythema. No urethral discharge. MUSCULOSKELETAL: No cyanosis, or edema. BACK: Nontender without obvious deformity. No CVA tenderness. Data Data Last Documented VS Vital Signs Date Time Temp Pulse Resp B/P (MAP) Pulse Ox O2 Delivery O2 Flow Rate FiO2 02/08/17 14:50 100.7 02/08/17 12:58 90 21 96 Room Air Orders Orders Complete Blood Count With Diff (02/08/17 12:59) Blood Culture (02/08/17 12:59) Iv Access Insert/Monitor (02/08/17 12:59) Comprehensive Metabolic Panel (02/08/17 12:59) Lactic Acid Sepsis Protocol (02/08/17 12:59) Prothrombin Time / Inr (Pt) (02/08/17 12:59) Act Partial Throm Time (Ptt) (02/08/17 12:59) Ecg Monitoring (02/08/17 12:59) Oximetry (02/08/17 12:59) Sodium Chloride 0.9% Flush (Ns Flush) (02/08/17 13:00) Ed Poc Ultrasound (02/08/17 ) Ct Femur W Iv Contrast (02/08/17 ) Piperacil-Tazo 4.5 Gm Premix (Zosyn 4.5 (02/08/17 13:45) Alcohol Withdrawal Asmt-Ciwa ONCE (02/08/17 13:44) Flumazenil Inj (Romazicon Inj) (02/08/17 13:45) Lorazepam (Ativan) (02/08/17 13:45) Lorazepam Inj (Ativan Inj) (02/08/17 13:45) Lorazepam (Ativan) (02/08/17 13:45) Lorazepam Inj (Ativan Inj) (02/08/17 13:45) Lorazepam Inj (Ativan Inj) (02/08/17 13:45) Lorazepam Inj (Ativan Inj) (02/08/17 13:45) Vancomycin Inj (Vancomycin Inj) (02/08/17 14:00) Iohexol 350 Inj (Omnipaque 350 Inj) (02/08/17 14:15) Acetaminophen (Tylenol) (02/08/17 14:45) Ibuprofen (Motrin) (02/08/17 14:45) Sodium Chlor 0.9% 1000 Ml Inj (Ns 1000 M (02/08/17 15:15) Diet Heart Healthy (02/08/17 Lunch) Admit Order (Ed Use Only) (02/08/17 15:20) Labs Laboratory Tests Test 02/08/17 13:15 White Blood Count 17.0 TH/MM3 Red Blood Count 3.24 MIL/MM3 Hemoglobin 10.9 GM/DL Hematocrit 31.8 % Mean Corpuscular Volume 98.2 FL Mean Corpuscular Hemoglobin 33.7 PG Mean Corpuscular Hemoglobin Concent 34.3 % Red Cell Distribution Width 15.4 % Platelet Count 211 TH/MM3 Mean Platelet Volume 9.3 FL Neutrophils (%) (Auto) 80.7 % Lymphocytes (%) (Auto) 10.7 % Monocytes (%) (Auto) 8.2 % Eosinophils (%) (Auto) 0.1 % Basophils (%) (Auto) 0.3 % Neutrophils # (Auto) 13.7 TH/MM3 Lymphocytes # (Auto) 1.8 TH/MM3 Monocytes # (Auto) 1.4 TH/MM3 Eosinophils # (Auto) 0.0 TH/MM3 Basophils # (Auto) 0.0 TH/MM3 CBC Comment AUTO DIFF Differential Comment AUTO DIFF CONFIRMED Prothrombin Time 10.5 SEC Prothromb Time International Ratio 1.0 RATIO Activated Partial Thromboplast Time 32.4 SEC Blood Urea Nitrogen 5 MG/DL Creatinine 0.56 MG/DL Random Glucose 98 MG/DL Total Protein 8.2 GM/DL Albumin 2.7 GM/DL Calcium Level 8.9 MG/DL Alkaline Phosphatase 81 U/L Aspartate Amino Transf (AST/SGOT) 11 U/L Alanine Aminotransferase (ALT/SGPT) 15 U/L Total Bilirubin 0.3 MG/DL Sodium Level 131 MEQ/L Potassium Level 3.5 MEQ/L Chloride Level 93 MEQ/L Carbon Dioxide Level 28.0 MEQ/L Anion Gap 10 MEQ/L Estimat Glomerular Filtration Rate 149 ML/MIN Lactic Acid Level 1.0 mmol/L MDM Medical Decision Making Medical Screen Exam Complete: Yes Emergency Medical Condition: Yes Differential Diagnosis Abscess versus cellulitis versus AV fistula versus inguinal hernia versus other Narrative Course 61-year-old male with history of COPD, chronic alcoholism, MRSA, CAD, S/P right femoral bypass by Dr. Locke in July presents to the ED for evaluation of 3 day history of pain, redness, swelling of the right groin. He saw Dr. Locke in the office today who referred him here. Patient's temp 100.7, pulse 90 on presentation. Physical exam reveals a large area of induration with surrounding cellulitic changes in the right groin. This tracks into the scrotum and down the right femur. The patient was placed on CIWA protocol. He was administered 1 L normal saline, 800 mg ibuprofen by mouth. CBC: WBC 17.0, left shift. Hemoglobin 16.9. Coags: INR 1.0. CMP: Sodium 131, chloride 93. BUN 5, creatinine 0.56. Lactic acid 1.0. CT: 4.3 x 6.2 cm irregular fluid collection in the right groin tracking down to the right common femoral artery. The ventral surface of the abscess abuts the skin. Dr. Locke came to the ED to evaluate the patient, plans surgery tomorrow. Patient is agreeable to this plan. He is admitted to Dr. Locke's service. Please see surgery notes for disposition. Sepsis Criteria SIRS Criteria (2 or more): WBC > 19953, < 4000 or > 10% bands Sepsis Criteria (SIRS+source): Infect source susp/known Mikaela Posey Feb 08, 2017 13:44
[2017-02-08] MEDS ORDERED: LORazepam 2 MG TAB PO PRN (13:45)
[2017-02-08] MEDS ORDERED: LORazepam 1 MG TAB PO PRN (13:45)
[2017-02-08] MEDS ORDERED: LORazepam 2 MG/ML VIAL IV PUSH PRN ×4 (13:45)
[2017-02-08] MEDS ORDERED: PIPERACIL-TAZO 4.5 GM PREMIX 100 ML IV ONE (13:45)
[2017-02-08] MEDS ORDERED: FLUMAZENIL 0.5 MG/5 ML VIAL IV PUSH PRN (13:45)
[2017-02-08 13:49] LABS: AUTOMATED NEUTROPHIL # 13.7 TH/MM3 (1.8-7.7); BASOPHIL % 0.3 % (0.0-2.0); EOSINOPHIL % 0.1 % (0.0-4.0); HEMATOCRIT 31.8 % (39.0-51.0); LYMPH % 10.7 % (9.0-44.0); LYMPHOCYTE # 1.8 TH/MM3 (1.0-4.8); MEAN CELL VOLUME 98.2 FL (80.0-100.0); MEAN CORPUSCULAR HEMOGLOBIN 33.7 PG (27.0-34.0); MEAN CORPUSCULAR HGB CONC 34.3 % (32.0-36.0); MONO % 8.2 % (0.0-8.0); NEUT % 80.7 % (16.0-70.0); PLATELET COUNT 211 TH/MM3 (150-450); RED BLOOD COUNT 3.24 MIL/MM3 (4.50-5.90); RED CELL DISTRIBUTION WIDTH 15.4 % (11.6-17.2)
[2017-02-08 13:57] LABS: APTT (PATIENT) 32.4 SEC (24.3-30.1); HEMO FLAGS AUTO DIFF; PROTHROMBIN TIME - PATIENT 10.5 SEC (9.8-11.6)
[2017-02-08] MEDS ORDERED: VANCOMYCIN INJ 1,000 MG in SODIUM CHLOR 0.9% 250 ML INJ 250 ML IV ONE (14:00)
[2017-02-08 14:14] LABS: ALT (GPT) 15 U/L (12-78); ANION GAP 10 MEQ/L (5-15); AST (GOT) 11 U/L (15-37); CHLORIDE 93 MEQ/L (98-107); GLOMERULAR FILTRATION RATE 149 ML/MIN (>89); POTASSIUM 3.5 MEQ/L (3.5-5.1); SODIUM (NA) 131 MEQ/L (136-145)
[2017-02-08] MEDS ORDERED: IOHEXOL 350 MG/ML 10 ML VIAL (for RAD DIAG) IVCONTRAST ONE (14:15)
[2017-02-08 14:18] LABS: ALKALINE PHOSPHATASE 81 U/L (45-117); BLOOD UREA NITROGEN 5 MG/DL (7-18); TOTAL BILIRUBIN ADULT 0.3 MG/DL (0.2-1.0)
[2017-02-08] MEDS ORDERED: IBUPROFEN 800 MG TAB PO ONE (14:45)
[2017-02-08] MEDS ORDERED: ACETAMINOPHEN 500 MG CPLT PO ONE (14:45)
--- NOTE | 2017-02-08 14:52 | RADRPT ---
EXAM DATE/TIME: 02/08/2017 14:08 [facility] COMPARISON: US LEG BILATERAL VENOUS DOPPLER, November 26, 2016, 19:55. INDICATIONS : Abscess, red and swollen at fem/pop surgical site. surgery was in July IV CONTRAST: 100 cc Omnipaque 350 (iohexol) IV RADIATION DOSE: 12.83 CTDIvol (mGy) MEDICAL HISTORY : Hypertension. Chronic obstructive pulmonary disease. Pancreatitis. SURGICAL HISTORY : Peripheral arterial bypass. ENCOUNTER: Initial ACUITY: 1 week PAIN SCALE: 10/10 LOCATION: Right groin TECHNIQUE: Volumetric scanning of the femur was performed. Using automated exposure control and adjustment of t he mA and/or kV according to patient size, radiation dose was kept as low as reasonably achievable to obtain optimal diagnostic quality images. DICOM format image data is available electronically for review and comparison. FINDINGS: Problem specific findings: The examination demonstrates a 6.2 x 4.3 cm fluid collection in in the right groin which extends up t o the skin surface. Primary differential consideration would include seroma, hematoma or abscess. The re are some surrounding, enhancing lymph nodes measuring up to 1.9 cm in size suggesting a significan t degree of inflammation. This can be tracked down to the level of the right common femoral artery. The soft tissues of the right thigh are otherwise intact. The femur is intact. The bony mineralizatio n of the femur is within normal limits. CONCLUSION: 1. 4.3 x 6.2 cm irregular fluid collection in the right groin tracking down to the right common femor al artery. Differential considerations include abscess versus seroma/hematoma. The ventral extent of this abuts the skin surface. Emiliaon Gabriel MD on February 08, 2017 at 14:46 Board Certified Radiologist. This report was verified electronically.
[2017-02-08 15:04] LABS: SCAN/DIFF AUTO DIFF CONFIRMED
[2017-02-08] MEDS ORDERED: SODIUM CHLOR 0.9% 1000 ML INJ 1,000 ML IV ONE (15:15)
--- NOTE | 2017-02-08 15:35 | PD ---
Physical Exam Date Seen by Provider: Feb 08, 2017 Time Seen by Provider: 14:30 Narrative I, Dr. Smith, have reviewed the advance practice practitioner's documentation and am in agreement, met with the patient face to face, made the diagnosis, and the medical decision making was done by me. *My assessment and Findings: Patient seen and evaluated with PA, please see PA note for further details. He is sent in by Dr. Locke with a right groin enlarging mass with erythema, concerning for abscess versus pseudoaneurysm versus hernia versus significant cellulitis. Laboratory Tests Test 02/08/17 13:15 White Blood Count 17.0 TH/MM3 (4.0-11.0) Red Blood Count 3.24 MIL/MM3 (4.50-5.90) Hemoglobin 10.9 GM/DL (13.0-17.0) Hematocrit 31.8 % (39.0-51.0) Neutrophils (%) (Auto) 80.7 % (16.0-70.0) Monocytes (%) (Auto) 8.2 % (0.0-8.0) Neutrophils # (Auto) 13.7 TH/MM3 (1.8-7.7) Monocytes # (Auto) 1.4 TH/MM3 (0-0.9) Activated Partial Thromboplast Time 32.4 SEC (24.3-30.1) Blood Urea Nitrogen 5 MG/DL (7-18) Creatinine 0.56 MG/DL (0.60-1.30) Albumin 2.7 GM/DL (3.4-5.0) Aspartate Amino Transf (AST/SGOT) 11 U/L (15-37) Sodium Level 131 MEQ/L (136-145) Chloride Level 93 MEQ/L (98-107) Last 24 hours Impressions Lower Extremity CT 02/08/17 0000 Signed Impressions: Service Date/Time: Wednesday, February 08, 2017 14:08 - CONCLUSION: 1. 4.3 x 6.2 cm irregular fluid collection in the right groin tracking down to the right common femoral artery. Differential considerations include abscess versus seroma/hematoma. The ventral extent of this abuts the skin surface. Emiliano Gabriel MD CAT scan is concerning for a seroma or hematoma, possible pseudoaneurysm versus infected pseudoaneurysm versus abscess, considering the history of vascular surgery, case was discussed with Dr. Locke who agrees to admit the patient and taken to the OR for further evaluation and treatment tomorrow. Data Data Last Documented VS Vital Signs Date Time Temp Pulse Resp B/P (MAP) Pulse Ox O2 Delivery O2 Flow Rate FiO2 02/08/17 14:50 100.7 02/08/17 12:58 90 21 96 Room Air Orders Orders Complete Blood Count With Diff (02/08/17 12:59) Blood Culture (02/08/17 12:59) Iv Access Insert/Monitor (02/08/17 12:59) Comprehensive Metabolic Panel (02/08/17 12:59) Lactic Acid Sepsis Protocol (02/08/17 12:59) Prothrombin Time / Inr (Pt) (02/08/17 12:59) Act Partial Throm Time (Ptt) (02/08/17 12:59) Ecg Monitoring (02/08/17 12:59) Oximetry (02/08/17 12:59) Sodium Chloride 0.9% Flush (Ns Flush) (02/08/17 13:00) Ed Poc Ultrasound (02/08/17 ) Ct Femur W Iv Contrast (02/08/17 ) Piperacil-Tazo 4.5 Gm Premix (Zosyn 4.5 (02/08/17 13:45) Alcohol Withdrawal Asmt-Ciwa ONCE (02/08/17 13:44) Flumazenil Inj (Romazicon Inj) (02/08/17 13:45) Lorazepam (Ativan) (02/08/17 13:45) Lorazepam Inj (Ativan Inj) (02/08/17 13:45) Lorazepam (Ativan) (02/08/17 13:45) Lorazepam Inj (Ativan Inj) (02/08/17 13:45) Lorazepam Inj (Ativan Inj) (02/08/17 13:45) Lorazepam Inj (Ativan Inj) (02/08/17 13:45) Vancomycin Inj (Vancomycin Inj) (02/08/17 14:00) Iohexol 350 Inj (Omnipaque 350 Inj) (02/08/17 14:15) Acetaminophen (Tylenol) (02/08/17 14:45) Ibuprofen (Motrin) (02/08/17 14:45) Sodium Chlor 0.9% 1000 Ml Inj (Ns 1000 M (02/08/17 15:15) Diet Heart Healthy (02/08/17 Lunch) Admit Order (Ed Use Only) (02/08/17 15:20) Labs Laboratory Tests Test 02/08/17 13:15 White Blood Count 17.0 TH/MM3 Red Blood Count 3.24 MIL/MM3 Hemoglobin 10.9 GM/DL Hematocrit 31.8 % Mean Corpuscular Volume 98.2 FL Mean Corpuscular Hemoglobin 33.7 PG Mean Corpuscular Hemoglobin Concent 34.3 % Red Cell Distribution Width 15.4 % Platelet Count 211 TH/MM3 Mean Platelet Volume 9.3 FL Neutrophils (%) (Auto) 80.7 % Lymphocytes (%) (Auto) 10.7 % Monocytes (%) (Auto) 8.2 % Eosinophils (%) (Auto) 0.1 % Basophils (%) (Auto) 0.3 % Neutrophils # (Auto) 13.7 TH/MM3 Lymphocytes # (Auto) 1.8 TH/MM3 Monocytes # (Auto) 1.4 TH/MM3 Eosinophils # (Auto) 0.0 TH/MM3 Basophils # (Auto) 0.0 TH/MM3 CBC Comment AUTO DIFF Differential Comment AUTO DIFF CONFIRMED Prothrombin Time 10.5 SEC Prothromb Time International Ratio 1.0 RATIO Activated Partial Thromboplast Time 32.4 SEC Blood Urea Nitrogen 5 MG/DL Creatinine 0.56 MG/DL Random Glucose 98 MG/DL Total Protein 8.2 GM/DL Albumin 2.7 GM/DL Calcium Level 8.9 MG/DL Alkaline Phosphatase 81 U/L Aspartate Amino Transf (AST/SGOT) 11 U/L Alanine Aminotransferase (ALT/SGPT) 15 U/L Total Bilirubin 0.3 MG/DL Sodium Level 131 MEQ/L Potassium Level 3.5 MEQ/L Chloride Level 93 MEQ/L Carbon Dioxide Level 28.0 MEQ/L Anion Gap 10 MEQ/L Estimat Glomerular Filtration Rate 149 ML/MIN Lactic Acid Level 1.0 mmol/L [facility] Medical Record Reviewed: Yes Supervised Visit with CAITLIN: Yes Diagnosis Primary Impression: Pseudoaneurysm of right femoral artery Admitting Information Admitting Physician Requests: Admit Gumaro Smith MD Feb 08, 2017 15:35
[2017-02-08] MEDS ORDERED: ENOXAPARIN SODIUM 30 MG/0.3 ML SYRINGE SQ SCH (16:00)
--- NOTE | 2017-02-08 16:38 | RADRPT ---
EXAM DATE/TIME: 02/08/2017 14:08 [place] COMPARISON: No previous studies available for comparison. INDICATIONS : Plan for femoral vein harvest. MEDICAL HISTORY : Hypercholesterolemia. Emphysema. Pancreatitis. Syncope. HTN. COPD. Sleep apnea. Dyspnea. Herniated di sc x4. Cellulitis. MRSA.Substance use. SURGICAL HISTORY : Tonsillectomy. Left hand. Right groin vascular occlusion. ENCOUNTER: Initial ACUITY: 3 days PAIN SCORE: 10/10 LOCATION: Bilateral leg. TECHNIQUE: Venous ultrasound of the left and right leg was performed from the inguinal ligament to the proximal calf. Real-time, color Doppler and spectral tracing, compression and augmentation techniques were us ed. FINDINGS: RIGHT LEG: There is normal compressibility of the deep venous system from the inguinal region to the proximal ca lf. No echogenic clot is seen in the lumen of the common femoral, femoral, popliteal, and posterior tibial veins. There is a normal response of the venous system to proximal and distal augmentation an d respiration. LEFT LEG: There is normal compressibility of the deep venous system from the inguinal region to the proximal ca lf. No echogenic clot is seen in the lumen of the common femoral, femoral, popliteal, and posterior tibial veins. There is a normal response of the venous system to proximal and distal augmentation an d respiration. CONCLUSION: 1. Negative for deep venous thrombosis. Fluid in right groin measuring up to 3.7 x 5.3 cm and is most characteristic of a hematoma. Martin Hernandez MD on February 08, 2017 at 16:35 Board Certified Radiologist. This report was verified electronically.
--- NOTE | 2017-02-08 16:55 | HHI.HP ---
History of Present Illness Chief Complaint: R groin abscess History of Present Illness 61 yo male with a history of a R groin reconstruction in July. He was doing well but then presented through the clinic with 3 days of RIGHT groin swelling and malaise. No LE ischemic symptoms. Past/Family/Social History Past Medical History HTN COPD PAD ?EtOH abuse Past Surgical History R groin surgery L hand surgery (? abscess) Social History + tobacco homeless Home Medications Reported Medications Fluticasone-Salmeterol Inh (Advair Diskus Inh) 250-50 Mcg/Blist Aer, 2 PUFF INH BID, #1 INHALER 0 Refills Rinse mouth after use. 08/17/16 Albuterol 8.5 GM Inh (Proair Hfa 8.5 GM Inh) 90 Mcg/Act Aer, 90 MCG INH BID, #1 04/30/16 Lovastatin (Lovastatin) 40 Mg Tab, 40 MG PO DAILY, #30 04/30/16 Lisinopril (Lisinopril) 10 Mg Tab, 10 MG PO DAILY, #30 TAB 0 Refills 04/29/16 Discontinued Scripts Methocarbamol (Robaxin) 500 Mg Tab, 500 MG PO TID for Muscle Spasm, #15 TAB 0 Refills Prov:Leeann Basurto IMAGING AIDE 02/03/17 Cane/Wood/Mens Standard (Cane/Wood/Mens Standard) 1 Mis Mis, 1 EA .ROUTE DIRECTED, #1 EA Prov:Fernanda Machado MD R1 11/29/16 Sulfamethoxazole-Trimethoprim (Sulfamethoxazole-Trimethoprim) 800-160 Mg Tab, 1 TAB PO BID for Infection, #20 TAB 0 Refills Prov:Fernanda Machado MD R1 11/29/16 Hydrocodone-Acetaminophen (Hydrocodone-Acetaminophen) 5-325 mg Tab, 1-2 TAB PO Q4-6H Y for PAIN SCALE 3 TO 5, #20 TAB Prov:Fernanda Machado MD R1 11/29/16 Coded Allergies: codeine (Unverified Adverse Reaction, Severe, N&V, 02/03/17) *MDRO Multi-Drug Resistant Organism (Verified Adverse Reaction, Unknown, ) MRSA PCR Screen POSITIVE - 12/31/2015 MRSA (blood) - 08/2004 Review of Systems Constitutional: COMPLAINS OF: Chills, DENIES: Fever Cardiovascular: DENIES: Chest pain Physical Exam Vitals/I&O Date Time Temp Pulse Resp B/P (MAP) Pulse Ox O2 Delivery O2 Flow Rate FiO2 02/08/17 14:50 100.7 02/08/17 12:58 90 21 148/79 (102) 96 Room Air Neuro: awake, alert, no distress HEENT: NC/AT; anicteric sclera Neck: no JVD Heart: reg rate Lungs: clear B Abdomen: NT Vascular: R groin with thin skin but no break in skin integrity; + erythema Extremities: no C/C/E Laboratory Tests Test 02/08/17 13:15 White Blood Count 17.0 Red Blood Count 3.24 Hemoglobin 10.9 Hematocrit 31.8 Mean Corpuscular Volume 98.2 Mean Corpuscular Hemoglobin 33.7 Mean Corpuscular Hemoglobin Concent 34.3 Red Cell Distribution Width 15.4 Platelet Count 211 Mean Platelet Volume 9.3 Neutrophils (%) (Auto) 80.7 Lymphocytes (%) (Auto) 10.7 Monocytes (%) (Auto) 8.2 Eosinophils (%) (Auto) 0.1 Basophils (%) (Auto) 0.3 Neutrophils # (Auto) 13.7 Lymphocytes # (Auto) 1.8 Monocytes # (Auto) 1.4 Eosinophils # (Auto) 0.0 Basophils # (Auto) 0.0 CBC Comment AUTO DIFF Differential Comment AUTO DIFF CONFIRMED Prothrombin Time 10.5 Prothromb Time International Ratio 1.0 Activated Partial Thromboplast Time 32.4 Blood Urea Nitrogen 5 Creatinine 0.56 Random Glucose 98 Total Protein 8.2 Albumin 2.7 Calcium Level 8.9 Alkaline Phosphatase 81 Aspartate Amino Transf (AST/SGOT) 11 Alanine Aminotransferase (ALT/SGPT) 15 Total Bilirubin 0.3 Sodium Level 131 Potassium Level 3.5 Chloride Level 93 Carbon Dioxide Level 28.0 Anion Gap 10 Estimat Glomerular Filtration Rate 149 Lactic Acid Level 1.0 Date/Time Source Procedure Growth Status 02/08/17 13:15 Blood Peripheral Aerobic Blood Culture Pending Received 02/08/17 13:15 Blood Peripheral Anaerobic Blood Culture Pending Received Last 48 hours Impressions Lower Extremity CT 02/08/17 0000 Signed Impressions: Service Date/Time: Wednesday, February 08, 2017 14:08 - CONCLUSION: 1. 4.3 x 6.2 cm irregular fluid collection in the right groin tracking down to the right common femoral artery. Differential considerations include abscess versus seroma/hematoma. The ventral extent of this abuts the skin surface. Emiliano Gabriel MD [place] VTE Risk Assessment Caprini VTE Risk Assessment: Mod/High Risk (score >= 2) Caprini Risk Assessment Model Point Value = 1 Point Value = 2 Point Value = 3 Point Value = 5 Age 41-60 Minor surgery BMI > 25 kg/m2 Swollen legs Varicose veins or History of unexplained or recurrent spontaneous Oral contraceptives or hormone replacement Sepsis (< 1 month) Serious lung disease, including pneumonia (< 1 month) Abnormal pulmonary function Acute myocardial infarction Congestive heart failure (< 1 month) History of inflammatory bowel disease Medical patient at bed rest Age 61-74 Arthroscopic surgery Major open surgery (> 45 min) Laparoscopic surgery (> 45 min) Malignancy Confined to bed (> 72 hours) Immobilizing plaster cast Central venous access Age >= 75 History of VTE Family history of VTE Factor V Leiden Prothrombin [id number] Lupus anticoagulant Anticardiolipin antibodies Elevated serum homocysteine Heparin-induced thrombocytopenia Other congenital or acquired thrombophilia Stroke (< 1 month) Elective arthroplasty Hip, pelvis, or leg fracture Acute spinal cord injury (< 1 month) Prophylaxis Regimen Total Risk Factor Score Risk Level Prophylaxis Regimen 0-1 Low Early ambulation 2 Moderate Order ONE of the following: *Sequential Compression Device (SCD) *Heparin 5000 units SQ BID 3-4 Higher Order ONE of the following medications: *Heparin 5000 units SQ TID *Enoxaparin/Lovenox 40 mg SQ daily (WT < 150 kg, CrCl > 30 mL/min) *Enoxaparin/Lovenox 30 mg SQ daily (WT < 150 kg, CrCl > 10-29 mL/min) *Enoxaparin/Lovenox 30 mg SQ BID (WT < 150 kg, CrCl > 30 mL/min) AND/OR *Sequential Compression Device (SCD) 5 or more Highest Order ONE of the following medications: *Heparin 5000 units SQ TID (Preferred with Epidurals) *Enoxaparin/Lovenox 40 mg SQ daily (WT < 150 kg, CrCl > 30 mL/min) *Enoxaparin/Lovenox 30 mg SQ daily (WT < 150 kg, CrCl > 10-29 mL/min) *Enoxaparin/Lovenox 30 mg SQ BID (WT < 150 kg, CrCl > 30 mL/min) AND *Sequential Compression Device (SCD) Assessment and Plan Plan R groin pseudoaneurysm Will plan on urgent repair tomorrow morning, potentially with femoral vein I spoke with Mr. Garcia and he understands the risks and the significance of the surgery and the magnitude Vanc/Zosyn NPO after MN T&C 2U Lisandro Locke MD Feb 08, 2017 16:55
[2017-02-08] MEDS: D5-1/2 NS + KCL 20 MEQ INJ 1,000 ML IV SCH (18:20)
[2017-02-08] MEDS: HYDROmorphone HCL 2 MG TAB PO PRN ×2 (18:21→22:32)
[2017-02-08] MEDS: PIPERACIL-TAZO 3.375 GM PREMIX 50 ML IV SCH (20:29)
[2017-02-08] MEDS: DOCUSATE SODIUM 100 MG CAP PO SCH (20:30)
[2017-02-08] MEDS: FAMOTIDINE 20 MG TAB PO SCH (20:30)
[2017-02-08] MEDS: ATORVASTATIN 40 MG TAB PO SCH (20:31)
[2017-02-08] MEDS: SODIUM CHLORIDE 0.9% FLUSH 10 ML FLUSH IV FLUSH SCH (20:34)
[2017-02-08] MEDS: ALBUTEROL SULFATE 90 MCG/ACT HFA 8 GM INHALER INH SCH (21:00)
[2017-02-08] MEDS: BUDESONIDE-FORMOTEROL 160/4.5 MCG INHALER INH SCH (21:00)
[2017-02-08] MEDS ORDERED: NON-FORMULARY DRUG (Fluticasone-Salmeterol Inh (Advair Diskus Inh) 2 PUFF) INH SCH (21:00)
[2017-02-09] VITALS (18 sets, daily range): BP systolic 96–124; BP diastolic 55–76; PULSE 59–88; RESP 16–20; TEMP 97.2–98.8; O2SAT 92–99
[2017-02-09] MEDS: PIPERACIL-TAZO 3.375 GM PREMIX 50 ML IV SCH ×3 (02:04→21:30)
[2017-02-09] MEDS: VANCOMYCIN INJ 1,200 MG in SODIUM CHLOR 0.9% 250 ML INJ 250 ML IV SCH ×2 (04:59→15:23)
[2017-02-09] MEDS: D5-1/2 NS + KCL 20 MEQ INJ 1,000 ML IV SCH ×2 (05:03→13:11)
[2017-02-09] MEDS: HYDROmorphone HCL 2 MG TAB PO PRN ×5 (05:10→21:33)
[2017-02-09] MEDS ORDERED: ACETAMINOPHEN 1000 MG/100 ML 100 ML IV ONE (06:34)
[2017-02-09] MEDS ORDERED: SUGAMMADEX SODIUM 200 MG/2 ML VIAL IV PUSH ONE ×2 (06:34)
[2017-02-09] MEDS ORDERED: KETAMINE HCL 500 MG/5 ML VIAL ONE (06:34)
[2017-02-09] MEDS ORDERED: HEPARIN SODIUM - SQ 10,000 UNITS/ML VIAL ONE (06:54)
[2017-02-09] MEDS ORDERED: HEPARIN-NS/PF INJ 500 ML ONE (06:54)
[2017-02-09] MEDS ORDERED: HYDROmorphone HCL PF 2 MG/ML VIAL ONE (07:05)
[2017-02-09] MEDS ORDERED: DEXMEDETOMIDINE HCL 200 MCG/2 ML VIAL ONE (07:08)
[2017-02-09] MEDS ORDERED: THROMBIN (TOPICAL) 20,000 UNIT SPRAY KIT ONE (07:15)
[2017-02-09] MEDS ORDERED: PROTAMINE SULFATE 50 MG/5 ML VIAL ONE ×2 (08:20→08:22)
[2017-02-09] MEDS ORDERED: HEPARIN SODIUM - IV 10,000 UNITS/10 ML VIAL ONE (08:20)
[2017-02-09] MEDS ORDERED: SODIUM CHLOR 0.9% 250 ML INJ 250 ML IV ONE ×2 (08:52→14:16)
[2017-02-09] MEDS ORDERED: ROCURONIUM INJ 50 MG/5 ML SYRINGE IV PUSH ONE (08:52)
[2017-02-09] MEDS ORDERED: PHENYLEPH/NS 1000 MCG/10 ML SYR IV ONE ×2 (08:52→14:14)
[2017-02-09] MEDS ORDERED: ONDANSETRON HCL 4 MG/2 ML VIAL IV PUSH ONE (08:52)
[2017-02-09] MEDS ORDERED: PROPOFOL 200 MG/20 ML AMP IV ONE (08:52)
[2017-02-09] MEDS ORDERED: NORMOSOL R INJ 1,000 ML IV ONE ×2 (08:52→14:16)
[2017-02-09] MEDS ORDERED: LIDOCAINE HCL 1% PF 5 ML AMPULE OTHER ONE (08:52)
[2017-02-09] MEDS ORDERED: SODIUM CHLORID 0.9% 500 ML INJ 500 ML IV ONE ×2 (08:52→14:16)
[2017-02-09] MEDS ORDERED: VECURONIUM BROMIDE 20 MG VIAL IV ONE (08:52)
[2017-02-09] MEDS ORDERED: PHENYLEPHRINE HCL 10 MG/ML VIAL IV ONE (09:00)
[2017-02-09] MEDS ORDERED: PRAVASTATIN SOD 40 MG TAB PO SCH (09:00)
--- NOTE | 2017-02-09 10:36 | HHI.PR ---
Immediate Post Op Note Procedure Date: Feb 09, 2017 Pre Op Diagnosis: Infected RIGHT femoral pseudoaneurysm Post Op Diagnosis: Infected RIGHT femoral pseudoaneurysm Surgeon: Lisandro Locke Supervisor Sulfuric Acid Plant(s): Skinny Moseley Procedure: 1. Excision of infected R groin graft 2. R iliofemoral bypass with femoral vein 3. [place] of LEFT femoral vein Findings: Infected R groin, patch and [employer] excised and interposition graft (FV) Additional Information: Doppler signals R Foot at completion Complications: none apparent Specimen(s) removed: purulent fluid for culture Estimated blood loss: 200mL Anesthesia: General Drains: FANNY Fluids: 1700mL x'oid; 525 mL UOP IVF Patient to: Other ([facility]) Patient Condition: Good Implant/Devices: SEE IMPLANT LOG (if applicable) Date/Time of Procedure: SEE SURGICAL CARE RECORD Lisandro Locke MD Feb 09, 2017 10:36
[2017-02-09] MEDS ORDERED: NITROGLYCERIN 50 MG/DEXTROSE 5% SOLN 250 ML BTL IV ONE (14:14)
[2017-02-09] MEDS ORDERED: ePHEDrine/NS 25 MG/5 ML SYR IV ONE (14:14)
--- NOTE | 2017-02-09 15:10 | PD.CONS ---
HPI Service Critical Care Medicine Consult Requested By Dr. Locke Vascular Surgery Reason for Consult S/P right femoral pseudoaneurysm repair Primary Care Physician MARQUISE Adhikari History of Present Illness This is a 61 year old male with a history of a R groin reconstruction in July. The potion was noted to have an occlusion and underwent right femoral pseudoaneurysm repair. A chin is past medical history is significant for COPD, pancreatitis hypertension dyslipidemia significant alcohol use with 8-12 beers a day. Critical care medicine was consulted for management. PFSH Past/Family/Social History Past Medical History HTN COPD PAD ?EtOH abuse Past Surgical History R groin surgery L hand surgery (? abscess) Social History + tobacco homeless Home Medications Reported Medications Fluticasone-Salmeterol Inh (Advair Diskus Inh) 250-50 Mcg/Blist Aer, 2 PUFF INH BID, #1 INHALER 0 Refills Rinse mouth after use. 08/17/16 Albuterol 8.5 GM Inh (Proair Hfa 8.5 GM Inh) 90 Mcg/Act Aer, 90 MCG INH BID, #1 04/30/16 Lovastatin (Lovastatin) 40 Mg Tab, 40 MG PO DAILY, #30 04/30/16 Lisinopril (Lisinopril) 10 Mg Tab, 10 MG PO DAILY, #30 TAB 0 Refills 04/29/16 Discontinued Scripts Methocarbamol (Robaxin) 500 Mg Tab, 500 MG PO TID for Muscle Spasm, #15 TAB 0 Refills Prov:Leeann Basurto 02/03/17 Cane/Wood/Mens Standard (Cane/Wood/Mens Standard) 1 Mis Mis, 1 EA .ROUTE DIRECTED, #1 EA Prov:Fernanda Machado MD R1 11/29/16 Sulfamethoxazole-Trimethoprim (Sulfamethoxazole-Trimethoprim) 800-160 Mg Tab, 1 TAB PO BID for Infection, #20 TAB 0 Refills Prov:Fernanda Machado MD R1 11/29/16 Hydrocodone-Acetaminophen (Hydrocodone-Acetaminophen) 5-325 mg Tab, 1-2 TAB PO Q4-6H Y for PAIN SCALE 3 TO 5, #20 TAB Prov:Fernanda Machado MD R1 11/29/16 Coded Allergies: codeine (Unverified Adverse Reaction, Severe, N&V, 02/03/17) *MDRO Multi-Drug Resistant Organism (Verified Adverse Reaction, Unknown, ) MRSA PCR Screen POSITIVE - 12/31/2015 MRSA (blood) - 08/2004 ROS - General Review of Systems Constitutional: COMPLAINS OF: Chills, DENIES: Fever Cardiovascular: DENIES: Chest pain Past Family Social History Allergies: Coded Allergies: codeine (Unverified Adverse Reaction, Severe, N&V, 02/03/17) Physical Exam Vital Signs Vital Signs Date Time Temp Pulse Resp B/P (MAP) Pulse Ox O2 Delivery O2 Flow Rate FiO2 02/09/17 13:51 18 02/09/17 13:00 64 18 100/76 (84) 99 117/62 (80) 02/09/17 13:00 64 18 100/76 (84) 99 117/62 (80) 02/09/17 12:30 59 18 108/67 (81) 98 112/57 (75) 02/09/17 12:00 98.2 63 18 104/71 (82) 99 115/61 (79) 02/09/17 11:45 61 18 106/70 (82) 98 114/59 (77) 02/09/17 11:30 63 18 101/69 (80) 99 115/58 (77) 02/09/17 11:15 97.8 67 18 105/67 (80) 99 117/60 (79) 02/09/17 11:00 97.6 70 18 96/60 (72) 97 122/69 (86) 02/09/17 06:13 16 02/09/17 06:03 88 02/09/17 04:02 83 02/09/17 03:00 98.8 80 16 124/66 (85) 92 02/09/17 03:00 80 02/09/17 02:57 80 02/09/17 02:00 81 02/09/17 01:00 86 02/09/17 00:00 80 02/08/17 23:00 88 02/08/17 23:00 98.7 78 16 122/76 (91) 93 02/08/17 22:29 98.7 78 16 122/76 (91) 93 02/08/17 22:00 80 02/08/17 21:00 76 02/08/17 20:17 98.0 82 16 110/68 (82) 94 9/19/17 20:00 78 02/08/17 18:20 81 02/08/17 18:10 98.2 82 17 121/67 (85) 93 02/08/17 18:03 Physical Exam GENERAL: Well-developed well-nourished male, in moderate distress, secondary to postop pain. Lethargic SKIN: Warm and dry. HEAD: Atraumatic. Normocephalic. EYES: Pupils equal and round. No scleral icterus. No injection or drainage. ENT: No nasal bleeding or discharge. Mucous membranes pink and moist. NECK: Trachea midline. No JVD. CARDIOVASCULAR: Normal rate, regular rhythm. RESPIRATORY: No accessory muscle use. Scattered rhonchi. Breath sounds equal bilaterally. GASTROINTESTINAL: Abdomen soft, non-tender, nondistended. No guarding. MUSCULOSKELETAL: Extremities without clubbing, cyanosis, or edema. No obvious deformities. NEUROLOGICAL: Lethargic but easily arousable. RASS 0. No gross focal/sensory deficits. Follows commands in all 4 extremities. Laboratory Date/Time Source Procedure Growth Status 02/08/17 13:15 Blood Peripheral Aerobic Blood Culture - Preliminary NO GROWTH IN 1 DAY Resulted 02/08/17 13:15 Blood Peripheral Anaerobic Blood Culture - Preliminary NO GROWTH IN 1 DAY Resulted 02/09/17 08:56 Wound Groin Fungal Smear Pending Received 02/09/17 08:56 Wound Groin Fungal Culture Pending Received Result Diagram: 02/08/17 1315 02/08/17 1315 Imaging Last Impressions Lower Extremity Ultrasound 02/08/17 0000 Signed Impressions: Service Date/Time: Wednesday, February 08, 2017 14:08 - CONCLUSION: 1. Negative for deep venous thrombosis. Fluid in right groin measuring up to 3.7 x 5.3 cm and is most characteristic of a hematoma. Martin Hernandez MD Lower Extremity CT 02/08/17 0000 Signed Impressions: Service Date/Time: Wednesday, February 08, 2017 14:08 - CONCLUSION: 1. 4.3 x 6.2 cm irregular fluid collection in the right groin tracking down to the right common femoral artery. Differential considerations include abscess versus seroma/hematoma. The ventral extent of this abuts the skin surface. Emiliano Gabriel MD Septic Shock Reassessment Heart: Regular rate and rhythm Lungs: Clear Skin: Warm Assessment and Plan Assessment and Plan ASSESSMENT S/P Right Femoral Pseudoaneurysm Repair Hypertension Dyslipidemia Pancreatitis Hyponatremia ETOH Abuse Cannabis use COPD Leukocytosis PLAN Neurologic: Ofirmev 1 g every 6 hours 24 hours for pain postoperative pain relief 24 hours Seizure precautions Monitor for signs of EtOH withdrawal CIWA protocol Respiratory: Continue ProAIR, Advair Duo nebs when necessary Incentive spirometry to one hour while awake Maintain FiO2 90% continue to wean nasal cannula Patient counseled on cessation of smoking-patient is a 2 pack-a-day smoker Nicotine patch medium dose Cardiovascular: Currently right DP signals monophasic, no PT signal. Left DP and PT palpable. Continue neurovascular checks per ICU protocol Noted right femoral medial hematoma-continue to monitor, vascular surgery aware. Postop wound management per Vas surgery Maintain MAP greater than 65 mmHg Hydralazine 10 mg every 6 hours when necessary for systolic blood pressure greater than 180mmHG ASA, atorvastatin continued Renal: Peres catheter -- Strict I/Os FEN/GI: Heart healthy diet Heme/ID: Leukocytosis most likely reactive secondary to surgery. Monitor CBC. Obtain cultures if clinically indicated Follow-up wound and preoperative pre-existing blood cultures Continue antibiotics Endocrine: Glucose monitoring per ICU protocol -- SSI Prophylaxis: GI Prophylaxis Famotidine BID DVT Prophylaxis -- SCDs Resumption anticoagulation/DVT , Lovenox per vascular surgery Lines: Peripheral IVs providing adequate access Dispo: This patient remains critically ill with one or more organ systems which are or may become a threat to life. I have spent in excess of 30 minutes discontinuously in the care and management of this patient. This time is exclusive of procedures, and includes, but is not limited to, evaluation of the patient, review of the medical record, discussions with family, consultants, nursing staff, or respiratory therapy, and documentation in the medical record. Code Status Full Discussed Condition With Dr. Locke, CLAMP OPERATOR at bedside and patient Mohini Douglas MD Feb 09, 2017 15:10
[2017-02-09] MEDS ORDERED: RESP: ALBUTEROL 2.5 MG/IPRATROPIUM 0.5 MG NEB (PRN) NEB (15:15)
[2017-02-09] MEDS ORDERED: hydrALAZINE HCL 20 MG/ML VIAL IV PUSH PRN (15:30)
[2017-02-09] MEDS: ACETAMINOPHEN 1000 MG/100 ML VIAL IV SCH ×2 (16:00→21:33)
[2017-02-09] MEDS: ALBUTEROL SULFATE 90 MCG/ACT HFA 8 GM INHALER INH SCH (21:00)
[2017-02-09] MEDS: BUDESONIDE-FORMOTEROL 160/4.5 MCG INHALER INH SCH (21:00)
[2017-02-09] MEDS: DOCUSATE SODIUM 100 MG CAP PO SCH (21:30)
[2017-02-09] MEDS: FAMOTIDINE 20 MG TAB PO SCH (21:30)
[2017-02-09] MEDS: ATORVASTATIN 40 MG TAB PO SCH (21:31)
[2017-02-09] MEDS: SODIUM CHLORIDE 0.9% FLUSH 10 ML FLUSH IV FLUSH SCH (21:43)
[2017-02-10] VITALS (9 sets, daily range): BP systolic 106–141; BP diastolic 47–77; PULSE 38–83; RESP 16–20; TEMP 97.6–98.7; O2SAT 94–98
[2017-02-10] MEDS: ACETAMINOPHEN 1000 MG/100 ML VIAL IV SCH ×2 (03:18→09:18)
[2017-02-10] MEDS: HYDROmorphone HCL 2 MG TAB PO PRN ×3 (03:18→20:06)
[2017-02-10] MEDS: PIPERACIL-TAZO 3.375 GM PREMIX 50 ML IV SCH ×4 (03:19→21:21)
[2017-02-10] MEDS: VANCOMYCIN INJ 1,200 MG in SODIUM CHLOR 0.9% 250 ML INJ 250 ML IV SCH ×2 (04:03→17:05)
[2017-02-10 05:05] LABS: HEMATOCRIT 25.3 % (39.0-51.0); MEAN CELL VOLUME 98.9 FL (80.0-100.0); MEAN CORPUSCULAR HEMOGLOBIN 33.9 PG (27.0-34.0); MEAN CORPUSCULAR HGB CONC 34.3 % (32.0-36.0); PLATELET COUNT 179 TH/MM3 (150-450); RED BLOOD COUNT 2.56 MIL/MM3 (4.50-5.90); REVIEW FLAG FINAL; WHITE BLOOD COUNT 16.5 TH/MM3 (4.0-11.0)
[2017-02-10 05:53] LABS: BICARBONATE 28.1 MEQ/L (21.0-32.0); POTASSIUM 3.6 MEQ/L (3.5-5.1)
--- NOTE | 2017-02-10 06:55 | MP ---
cc: BHARGAV LOCKE MD DATE OF SURGERY 02/09/2017 PREOPERATIVE DIAGNOSIS Right groin infected femoral pseudoaneurysm. POSTOPERATIVE DIAGNOSIS Right groin infected femoral pseudoaneurysm. PROCEDURE 1. Excision of right groin graft. 2. Right iliofemoral bypass with vein. 3. Peever of left femoral vein. ATTENDING SURGEON Bhargav Locke MD ANESTHESIA General. INDICATIONS Mr. Garcia is a gentleman with the femoral endarterectomy and patch angioplasty several months ago. He presented to the emergency department last night with what appears to be an abscess in his right groin that extends down to the arteries. He was taken to the operating room for resection, drainage of the abscess and arterial reconstruction. DESCRIPTION OF PROCEDURE Informed consent was obtained from the patient. He was taken to the operating room and placed supine on the operating table. An appropriate time-out was taken to ensure identity of the patient, the operative site and planned procedure. He was on vancomycin and Zosyn and these were redosed prior to skin incision. These will be continued postoperatively for ongoing therapy of an active infection. Everyone in the room agreed with the time-out and we proceeded. He was prepped from his nipples to his toes. The incision was made over the anterior aspect of the left thigh, carried down through the subcutaneous tissue with electrocautery. The femoral vein was identified and dissected free for approximately 10-12 cm. Side branches were ligated with 3-0 silk. With the vein left in place, a laparotomy pad was temporarily placed in this wound. His previous right groin incision was opened. There was a substantial amount of purulence, a sample of which was sent for culture. Tedious dissection was then encountered. We divided the inguinal ligament and the external iliac artery was identified and encircled with a vessel loop. We then extended the incision caudally and found the superficial femoral artery and this was also encircled with a vessel loop. On the lateral aspect of the wound the profunda was identified and encircled with vessel loop. The patient was then systemically heparinized. Clamps were placed in the external iliac artery, superficial femoral artery and profunda femoris artery. We then dissected out the entire common femoral artery including the patch and this was resected in its entirety. The wound was then copiously irrigated and the vein on the left leg was clamped proximally and distally with right angle clamps, transected and flushed. The proximal and distal ends were oversewn with 4-0 Prolene and a large hemoclip. The vein harvest site was then irrigated, made hemostatic. A 10 flat FANNY drain was placed through a separate stab wound and secured to the skin with 3-0 nylon, then that wound was closed with 2-0 Polysorb, 3-0 Polysorb and 4-0 Monocryl. The external iliac artery was then beveled and the vein was flushed. It had been marked for orientation and the vein was sewn end-to-end to the external iliac artery and end-to-end to the distal common femoral artery with running 5-0 Prolene suture. At the completion the clamps were released. There was hemostasis in the groin and a Doppler signal in the foot. The heparin was reversed with protamine. The wound was then confirmed to be hemostatic and closed with 2-0 Polysorb, 3-0 Polysorb and skin tacho. The sponge and needle counts were correct at the end of the case. I was present and scrubbed and performed the entire procedure. MD TAYLOR Emerson/KASSY /3:24 PM /6:37 AM
--- NOTE | 2017-02-10 07:54 | PD.VS.PN ---
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 PSA repair with L FV Subjective/Hospital Course c/o R groin soreness but otherwise ok foot ok no chills Objective Vitals/I&O Date Time Temp Pulse Resp B/P (MAP) Pulse Ox O2 Delivery O2 Flow Rate FiO2 02/10/17 07:48 94 Nasal Cannula 6.00 02/10/17 04:20 20 02/10/17 04:05 94 Nasal Cannula 6.00 02/10/17 04:00 75 02/10/17 04:00 98.7 67 20 112/68 (83) 94 108/48 (68) 02/10/17 04:00 20 02/10/17 00:00 98.1 75 20 110/65 (80) 94 108/52 (70) 02/10/17 00:00 68 02/10/17 00:00 94 Nasal Cannula 6.00 02/09/17 21:30 98 Nasal Cannula 6.00 02/09/17 20:00 97.2 75 20 106/62 (77) 97 122/63 (82) 02/09/17 20:00 68 02/09/17 19:15 97 Nasal Cannula 6.00 02/09/17 15:00 63 02/09/17 15:00 97.6 72 18 109/65 (80) 98 116/60 (78) 02/09/17 15:00 98 Nasal Cannula 6.00 02/09/17 14:00 99 Nasal Cannula 5.00 02/09/17 13:30 61 18 105/68 (80) 98 110/55 (73) 02/09/17 13:00 64 18 100/76 (84) 99 117/62 (80) 02/09/17 13:00 64 18 100/76 (84) 99 117/62 (80) 02/09/17 13:00 99 Simple Mask 6.00 02/09/17 12:30 59 18 108/67 (81) 98 112/57 (75) 02/09/17 12:00 98.2 63 18 104/71 (82) 99 115/61 (79) 02/09/17 11:45 61 18 106/70 (82) 98 114/59 (77) 02/09/17 11:30 63 18 101/69 (80) 99 115/58 (77) 02/09/17 11:30 99 Simple Mask 8.00 02/09/17 11:15 97.8 67 18 105/67 (80) 99 117/60 (79) 02/09/17 11:00 67 02/09/17 11:00 97 Simple Mask 10.00 02/09/17 11:00 97.6 70 18 96/60 (72) 97 122/69 (86) 02/10/17 02/10/17 02/10/17 07:00 15:00 23:00 Intake Total 1480 ml Output Total 915 ml Balance 565 ml Exam: R groin with mild induration and erythema expected serous drainage from wound palpable pulse in foot L FANNY minimal and incision covered Laboratory Laboratory Tests Test 02/10/17 04:30 White Blood Count 16.5 Red Blood Count 2.56 Hemoglobin 8.7 Hematocrit 25.3 Mean Corpuscular Volume 98.9 Mean Corpuscular Hemoglobin 33.9 Mean Corpuscular Hemoglobin Concent 34.3 Red Cell Distribution Width 15.0 Platelet Count 179 Mean Platelet Volume 9.0 Blood Urea Nitrogen 6 Creatinine 0.43 Random Glucose 121 Calcium Level 8.0 Sodium Level 135 Potassium Level 3.6 Chloride Level 101 Carbon Dioxide Level 28.1 Anion Gap 6 Estimat Glomerular Filtration Rate 202 Date/Time Source Procedure Growth Status 02/08/17 13:15 Blood Peripheral Aerobic Blood Culture - Preliminary NO GROWTH IN 1 DAY Resulted 02/08/17 13:15 Blood Peripheral Anaerobic Blood Culture - Preliminary NO GROWTH IN 1 DAY Resulted 02/09/17 08:56 Wound Groin Fungal Smear - Final NO FUNGAL ELEMENTS SEEN. Resulted 02/09/17 08:56 Wound Groin Fungal Culture Pending Resulted Assessment and Plan Plan 1. OOB TC 2. Aggressive pulmonary toilet 3. Wound care to R groin : dry gauze BID 4. f/u cultures 5. Vanc trough before next dose 6. D/C Peres 7. Transfer to [facility] on tele 8. AML 02/11 Lisandro Locke MD Feb 10, 2017 07:54
--- NOTE | 2017-02-10 08:28 | HHI.CCPN ---
Subjective Remarks/Hospital Course This is a 61 year old male with a history of a R groin reconstruction in July. The potion was noted to have an occlusion and underwent right femoral pseudoaneurysm repair. A chin is past medical history is significant for COPD, pancreatitis hypertension dyslipidemia significant alcohol use with 8-12 beers a day. Critical care medicine was consulted for management. Subjective: 02/10: No acute events overnight. The patient reports pain scale of 8/10. Right femoral wound site noted copious amount of amaya colored drainage. No erythema. Noted firmness around surgical site no expansion noted. Patient has coarse rhonchi chronic history of smoking nebulizer treatments instituted this a.m. ,and education on use of incentive spirometry. The patient's tolerating a diet. Objective Vital Signs Date Time Temp Pulse Resp B/P (MAP) Pulse Ox O2 Delivery O2 Flow Rate FiO2 02/10/17 07:48 94 Nasal Cannula 6.00 02/10/17 04:20 20 02/10/17 04:00 75 02/10/17 04:00 98.7 112/68 (83) 108/48 (68) Intake and Output 02/10/17 02/10/17 02/11/17 08:00 16:00 00:00 Intake Total 1480 ml Output Total 915 ml Balance 565 ml Result Diagram: 02/10/17 0430 02/10/17 0430 Imaging Last Impressions Lower Extremity Ultrasound 02/08/17 0000 Signed Impressions: Service Date/Time: Wednesday, February 08, 2017 14:08 - CONCLUSION: 1. Negative for deep venous thrombosis. Fluid in right groin measuring up to 3.7 x 5.3 cm and is most characteristic of a hematoma. Martin Hernandez MD Lower Extremity CT 02/08/17 0000 Signed Impressions: Service Date/Time: Wednesday, February 08, 2017 14:08 - CONCLUSION: 1. 4.3 x 6.2 cm irregular fluid collection in the right groin tracking down to the right common femoral artery. Differential considerations include abscess versus seroma/hematoma. The ventral extent of this abuts the skin surface. Emiliano Gabriel MD Objective Remarks GENERAL: Well-developed well-nourished male, in no distress. Awake alert and pleasantly conversant SKIN: Warm and dry. HEAD: Atraumatic. Normocephalic. EYES: Pupils equal and round. No scleral icterus. No injection or drainage. ENT: No nasal bleeding or discharge. Mucous membranes pink and moist. NECK: Trachea midline. No JVD. CARDIOVASCULAR: Normal rate, regular rhythm. RESPIRATORY: No accessory muscle use. Scattered rhonchi. Breath sounds equal bilaterally. GASTROINTESTINAL: Abdomen soft, non-tender, nondistended. No guarding. MUSCULOSKELETAL: Extremities without clubbing, cyanosis, or edema. No obvious deformities. Right femoral groin site, hematoma unchanged. Noted grayish fluid draining from surgical site . NEUROLOGICAL: Awake and alert GCS 15. RASS 0. No gross focal/sensory deficits. Follows commands in all 4 extremities. A/P Assessment and Plan ASSESSMENT S/P Right Femoral Pseudoaneurysm Repair Hypertension Dyslipidemia Pancreatitis Hyponatremia ETOH Abuse Cannabis use COPD Leukocytosis PLAN Neurologic: Ofirmev 1 g every 6 hours 24 hours for pain postoperative pain relief 24 hours Seizure precautions Monitor for signs of EtOH withdrawal CIWA protocol Respiratory: Continue ProAIR, Advair Duo nebs every 4 hours when necessary Incentive spirometry to one hour while awake Maintain FiO2 90% continue to wean nasal cannula Patient counseled on cessation of smoking-patient is a 2 pack-a-day smoker Nicotine patch medium dose-x 7 days Cardiovascular: Currently bilateral lower extremity DP and PT pulses now palpable. Continue neurovascular checks per ICU protocol Noted right femoral medial hematoma-continue to monitor, vascular surgery aware. Postop wound management per Vasc surgery Maintain MAP greater than 65 mmHg Hydralazine 10 mg every 6 hours when necessary for systolic blood pressure greater than 180mmHG ASA, atorvastatin continued Renal: Peres catheter -- Strict I/Os FEN/GI: Heart healthy diet Bowel regimen Heme/ID: Leukocytosis most likely reactive secondary to surgery. Monitor CBC. Obtain cultures if clinically indicated Follow-up wound and preoperative pre-existing blood cultures Continue antibiotics Endocrine: Glucose monitoring per ICU protocol -- SSI Prophylaxis: GI Prophylaxis Famotidine BID DVT Prophylaxis -- SCDs Resumption anticoagulation/DVT , Lovenox per vascular surgery Lines: Peripheral IVs providing adequate access Dispo: Level 3 Patient progressing well. Thank you for allowing participation in the care of this patient,critical care medicine will be signing off. Physician Mohini Mcknight MD Feb 10, 2017 08:28
[2017-02-10] MEDS: ALBUTEROL SULFATE 90 MCG/ACT HFA 8 GM INHALER INH SCH ×2 (09:00→20:51)
[2017-02-10] MEDS: BUDESONIDE-FORMOTEROL 160/4.5 MCG INHALER INH SCH ×2 (09:00→20:07)
[2017-02-10] MEDS: REMOVE OLD PATCH T-DERMAL SCH (09:00)
[2017-02-10] MEDS: NICOTINE 14 MG/24 HR PATCH T-DERMAL SCH (09:16)
[2017-02-10] MEDS: DOCUSATE SODIUM 100 MG CAP PO SCH ×2 (09:16→20:05)
[2017-02-10] MEDS: FAMOTIDINE 20 MG TAB PO SCH ×2 (09:17→20:05)
[2017-02-10] MEDS: LISINOPRIL 10 MG TAB PO SCH (09:17)
[2017-02-10] MEDS: ASPIRIN 81 MG CHEW TAB PO SCH (09:17)
[2017-02-10] MEDS: ENOXAPARIN SODIUM 30 MG/0.3 ML SYRINGE SQ SCH (09:18)
[2017-02-10] MEDS: SODIUM CHLORIDE 0.9% FLUSH 10 ML FLUSH IV FLUSH SCH ×2 (09:19→21:00)
[2017-02-10] MEDS: D5-1/2 NS + KCL 20 MEQ INJ 1,000 ML IV SCH (12:46)
[2017-02-10] MEDS: ATORVASTATIN 40 MG TAB PO SCH (20:05)
[2017-02-11] VITALS (10 sets, daily range): BP systolic 104–131; BP diastolic 51–80; PULSE 65–85; RESP 18–20; TEMP 97.7–98.6; O2SAT 93–97
[2017-02-11] MEDS: HYDROmorphone HCL 2 MG TAB PO PRN ×5 (01:57→22:34)
[2017-02-11] MEDS: VANCOMYCIN INJ 1,200 MG in SODIUM CHLOR 0.9% 250 ML INJ 250 ML IV SCH ×2 (03:23→16:23)
[2017-02-11] MEDS: PIPERACIL-TAZO 3.375 GM PREMIX 50 ML IV SCH ×4 (03:23→20:58)
[2017-02-11 05:15] LABS: HEMATOCRIT 25.9 % (39.0-51.0); MEAN CELL VOLUME 98.7 FL (80.0-100.0); MEAN CORPUSCULAR HEMOGLOBIN 33.7 PG (27.0-34.0); MEAN CORPUSCULAR HGB CONC 34.1 % (32.0-36.0); PLATELET COUNT 222 TH/MM3 (150-450); RED BLOOD COUNT 2.62 MIL/MM3 (4.50-5.90); RED CELL DISTRIBUTION WIDTH 15.5 % (11.6-17.2); REVIEW FLAG FINAL; WHITE BLOOD COUNT 16.5 TH/MM3 (4.0-11.0)
[2017-02-11 05:42] LABS: BICARBONATE 29.7 MEQ/L (21.0-32.0); POTASSIUM 3.6 MEQ/L (3.5-5.1)
--- NOTE | 2017-02-11 08:10 | PD.VS.PN ---
Subjective POD #: 2 Procedure(s): R TEST RIDER PSA repair with L FV Subjective/Hospital Course slightly SOB yesterday but better now groin sore but foot ok no chills Objective Vitals/I&O Date Time Temp Pulse Resp B/P (MAP) Pulse Ox O2 Delivery O2 Flow Rate FiO2 02/11/17 03:00 73 02/11/17 03:00 98.2 73 18 105/55 (72) 97 02/11/17 03:00 97 Nasal Cannula 4.00 02/11/17 02:57 18 02/10/17 23:00 98.5 77 18 106/47 (66) 95 02/10/17 23:00 95 Nasal Cannula 4.00 02/10/17 23:00 77 02/10/17 20:55 97 Nasal Cannula 4.00 02/10/17 19:00 95 Nasal Cannula 4.00 02/10/17 19:00 73 02/10/17 19:00 97.9 74 16 135/77 (96) 95 137/59 (85) 02/10/17 15:00 97.6 83 20 113/68 (83) 98 108/51 (70) 02/10/17 15:00 98 Nasal Cannula 4.00 02/10/17 15:00 80 02/10/17 11:00 95 Simple Mask 6.00 02/10/17 11:00 74 02/10/17 11:00 98.5 77 18 118/68 (85) 98 106/53 (70) 02/10/17 09:48 18 02/11/17 02/11/17 02/11/17 07:00 15:00 23:00 Intake Total 1150 ml Output Total 760 ml Balance 390 ml Exam: R groin wound open but deeper layers intact serous drainage Minimal output L FANNY Laboratory Laboratory Tests Test 02/10/17 12:00 02/11/17 04:50 Vancomycin Level Trough 10.0 White Blood Count 16.5 Red Blood Count 2.62 Hemoglobin 8.8 Hematocrit 25.9 Mean Corpuscular Volume 98.7 Mean Corpuscular Hemoglobin 33.7 Mean Corpuscular Hemoglobin Concent 34.1 Red Cell Distribution Width 15.5 Platelet Count 222 Mean Platelet Volume 9.0 Blood Urea Nitrogen 6 Creatinine 0.50 Random Glucose 111 Calcium Level 8.2 Sodium Level 136 Potassium Level 3.6 Chloride Level 102 Carbon Dioxide Level 29.7 Anion Gap 4 Estimat Glomerular Filtration Rate 170 Date/Time Source Procedure Growth Status 02/08/17 13:15 Blood Peripheral Aerobic Blood Culture - Preliminary NO GROWTH IN 2 DAYS Resulted 02/08/17 13:15 Blood Peripheral Anaerobic Blood Culture - Preliminary NO GROWTH IN 2 DAYS Resulted 02/09/17 08:56 Wound Groin Fungal Smear - Final NO FUNGAL ELEMENTS SEEN. Resulted 02/09/17 08:56 Wound Groin Fungal Culture Pending Resulted Assessment and Plan Plan 1. Wound care R groin: BID dressing changes 2. F/u cultures; needs 2 weeks IV antibiotics 3. L FANNY removed this morning. 4. Stay in ICU for wound precautions Lisandro Locke MD Feb 11, 2017 08:10
[2017-02-11] MEDS: SODIUM CHLORIDE 0.9% FLUSH 10 ML FLUSH IV FLUSH SCH ×2 (08:50→20:59)
[2017-02-11] MEDS: ASPIRIN 81 MG CHEW TAB PO SCH (08:50)
[2017-02-11] MEDS: DOCUSATE SODIUM 100 MG CAP PO SCH ×2 (08:51→20:59)
[2017-02-11] MEDS: LISINOPRIL 10 MG TAB PO SCH (08:51)
[2017-02-11] MEDS: FAMOTIDINE 20 MG TAB PO SCH ×2 (08:51→20:59)
[2017-02-11] MEDS: REMOVE OLD PATCH T-DERMAL SCH (08:51)
[2017-02-11] MEDS: NICOTINE 14 MG/24 HR PATCH T-DERMAL SCH (08:51)
[2017-02-11] MEDS: ENOXAPARIN SODIUM 30 MG/0.3 ML SYRINGE SQ SCH (08:52)
[2017-02-11] MEDS: ALBUTEROL SULFATE 90 MCG/ACT HFA 8 GM INHALER INH SCH ×2 (08:53→21:00)
[2017-02-11] MEDS: BUDESONIDE-FORMOTEROL 160/4.5 MCG INHALER INH SCH ×2 (08:53→21:00)
--- NOTE | 2017-02-11 16:33 | PD.WCN.NOT ---
Wound Consult Description: Received consult for wound management of R groin wound from Doctor Chucky. Yisel Mcintosh [facility] Feb 11, 2017 16:33
--- NOTE | 2017-02-11 18:34 | PD.WCN.NOT ---
Wound Consult Description: Received consult for wound management of R groin wound from Doctor Locke. Communicated with: ADRIANA Frye [facility] and Doctor Locke Recommendation: Change wound VAC Tuesday,Tuesday and Tuesday Cleanse wound with normal saline and apply white VAC foam to wound base. [place] Cavilon skin prep to periwound.Cover exposed sutures with adaptic. Apply Xeroform in single layer just over incision lines at 12 and 6 o'clock. Use stoma paste in skin crevices to seal wound VAC, Window pane wound with VAC drape Before applying black granufoam to wound bed and Bridge VAC granufoam over VAC drape to R anterior thigh. Additional Information: Patient seen on CVICU for evaluation of R groin wound. Wound assessment completed with ADRIANA Ness at bedside for assistance. ADRIANA Ness [facility] removed dressing to R groin to reveal partially dehisced wound with approximated incision line at 6 o'clock and 12o'clock. Incision line is approximated with tacho. Dehisced area on incision measures 7cm x 4cm x ~7 cm. Wound bed is noted with ~20% white tissue at the base, ~20% dark red tissue, and ~20% adipose and ~40% red non granulation tissue. Two sutures are noted in wound bed toward s the surface, one suture at wound margin at 6 o'clock, and 1 suture at wound bed base.Wound has minimal sero-sanguinous drainage with out odor. Periwound is noted with induration from 12 to 6 o'clock. Recommendations for wound VAC dressing were communicated with Doctor Locke, who was in agreement with recommendations. Cleansed wound with normal saline and repacked wound with saline moistened isai and covered with ABD pad. pending wound VAC unit, supply arrival. Removed ABD pad and isai packing when supplies arrived for wound VAC change. Applied White VAC foam at wound base per request of Doctor Locke. Sutures protected in wound bed with oil emulsion gauze. Skin prep was spayed to periwound. before applying stoma paste to skin crevices to seal VAC dressing. Removed tacho to periwound at 6 o'clock and 12 o'clock per request of Doctor Locke. Applied Xeroform single layer just over approximated incision line. to protect from VAC drape. Window paned VAC drape to periwound before Applying VAC granufoam cut in single strip and placed in wound bed in a coiled fashion.Bridged VAC granufoam to R anterior thigh over VAC drape. Mushroom cap of black granufoam was then placed on bridged foam with VAC sensi trac pad. Covered all exposed granufoam with VAC drape to seal. Neg Pressure Wound Therapy Wound Location Wound Location: Received consult for wound management of R groin wound from Doctor Chucky. Wound Description Length: 7 cm Width: 4cm Depth: ~7cm Periwound appearance: Other (Incision lines at 6 o'clock and 12 o'clock. Induration from 6 to 12 o'clock) Settings Suction: 125 mmHg Intensity: Low Other Information: Bridged, Windowpaned, Mushroomed Foam type: Black, White Number of pieces: 2 Yisel Mcintosh [facility] Feb 11, 2017 18:34
[2017-02-11] MEDS: ATORVASTATIN 40 MG TAB PO SCH (20:59)
[2017-02-12] VITALS (16 sets, daily range): BP systolic 103–131; BP diastolic 60–78; PULSE 69–87; RESP 18–20; TEMP 97.6–98.7; O2SAT 91–95
[2017-02-12] MEDS: HYDROmorphone HCL 2 MG TAB PO PRN ×5 (02:10→20:14)
[2017-02-12] MEDS: PIPERACIL-TAZO 3.375 GM PREMIX 50 ML IV SCH ×4 (02:55→20:14)
[2017-02-12] MEDS: VANCOMYCIN INJ 1,200 MG in SODIUM CHLOR 0.9% 250 ML INJ 250 ML IV SCH ×2 (04:05→15:31)
[2017-02-12] MEDS: LISINOPRIL 10 MG TAB PO SCH (09:00)
[2017-02-12] MEDS: REMOVE OLD PATCH T-DERMAL SCH (09:00)
[2017-02-12] MEDS: NICOTINE 14 MG/24 HR PATCH T-DERMAL SCH (09:59)
[2017-02-12] MEDS: ASPIRIN 81 MG CHEW TAB PO SCH (10:00)
[2017-02-12] MEDS: DOCUSATE SODIUM 100 MG CAP PO SCH ×2 (10:00→20:13)
[2017-02-12] MEDS: ENOXAPARIN SODIUM 30 MG/0.3 ML SYRINGE SQ SCH (10:01)
[2017-02-12] MEDS: FAMOTIDINE 20 MG TAB PO SCH ×2 (10:01→20:13)
[2017-02-12] MEDS: BUDESONIDE-FORMOTEROL 160/4.5 MCG INHALER INH SCH ×2 (10:02→20:14)
[2017-02-12] MEDS: ALBUTEROL SULFATE 90 MCG/ACT HFA 8 GM INHALER INH SCH ×2 (10:02→20:14)
[2017-02-12] MEDS: SODIUM CHLORIDE 0.9% FLUSH 10 ML FLUSH IV FLUSH SCH ×2 (10:03→20:14)
--- NOTE | 2017-02-12 10:30 | PD.VS.PN ---
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 Subjective/Hospital Course looks comfortable sitting in chair nena po no complaints Objective Vitals/I&O Date Time Temp Pulse Resp B/P (MAP) Pulse Ox O2 Delivery O2 Flow Rate FiO2 02/12/17 09:55 95 Nasal Cannula 2.00 02/12/17 07:00 98.7 79 20 122/78 (93) 93 02/12/17 07:00 93 Nasal Cannula 2.00 02/12/17 07:00 79 02/12/17 03:30 72 02/12/17 03:26 97.6 78 20 131/73 (92) 91 02/12/17 03:26 91 Nasal Cannula 3.00 02/11/17 23:20 93 Nasal Cannula 3.00 02/11/17 23:20 98.6 74 20 131/80 (97) 94 02/11/17 23:00 76 02/11/17 21:38 96 Nasal Cannula 3.00 02/11/17 20:00 96 Nasal Cannula 3.00 02/11/17 19:45 97 Nasal Cannula 4.00 02/11/17 19:45 97.9 80 18 117/72 (87) 97 Arterial Line 02/11/17 19:00 80 02/11/17 15:00 97.7 85 18 115/72 (86) 96 02/11/17 15:00 78 02/11/17 15:00 97 Nasal Cannula 4.00 02/11/17 11:00 97.9 79 18 108/66 (80) 97 104/52 (69) 02/11/17 11:00 78 02/11/17 11:00 97 Nasal Cannula 4.00 02/12/17 02/12/17 02/12/17 07:00 15:00 23:00 Intake Total 780 ml Output Total 1775 ml Balance -995 ml Exam: R groin VAC in place erythema less L thigh (FV harvest) skin vac in place Laboratory Date/Time Source Procedure Growth Status 02/08/17 13:15 Blood Peripheral Aerobic Blood Culture - Preliminary NO GROWTH IN 3 DAYS Resulted 02/08/17 13:15 Blood Peripheral Anaerobic Blood Culture - Preliminary NO GROWTH IN 3 DAYS Resulted 02/09/17 08:56 Wound Groin Fungal Smear - Final NO FUNGAL ELEMENTS SEEN. Resulted 02/09/17 08:56 Wound Groin Fungal Culture Pending Resulted Assessment and Plan Plan 1.VAC in R groin down Tuesday 2. VAC on L thigh off Tuesday 3. Continue IV antibiotics x 2 weeks (from surgery - D/C date 02/23) 4. Reg diet, meds Discharge Planning mid week depending on wound progress Lisandro Locke MD Feb 12, 2017 10:30
--- NOTE | 2017-02-12 14:09 | PD.VS.PN ---
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 Subjective/Hospital Course looks comfortable sitting in chair nena po no complaints Objective Vitals/I&O Date Time Temp Pulse Resp B/P (MAP) Pulse Ox O2 Delivery O2 Flow Rate FiO2 02/12/17 14:00 87 02/12/17 13:00 76 02/12/17 12:20 82 02/12/17 12:20 98.4 82 20 121/77 (92) 93 02/12/17 11:00 97.9 72 18 103/60 (74) 92 02/12/17 11:00 72 02/12/17 11:00 92 Nasal Cannula 2.00 02/12/17 09:55 95 Nasal Cannula 2.00 02/12/17 07:00 98.7 79 20 122/78 (93) 93 02/12/17 07:00 93 Nasal Cannula 2.00 02/12/17 07:00 79 02/12/17 03:30 72 02/12/17 03:26 97.6 78 20 131/73 (92) 91 02/12/17 03:26 91 Nasal Cannula 3.00 02/11/17 23:20 93 Nasal Cannula 3.00 02/11/17 23:20 98.6 74 20 131/80 (97) 94 02/11/17 23:00 76 02/11/17 21:38 96 Nasal Cannula 3.00 02/11/17 20:00 96 Nasal Cannula 3.00 02/11/17 19:45 97 Nasal Cannula 4.00 02/11/17 19:45 97.9 80 18 117/72 (87) 97 Arterial Line 02/11/17 19:00 80 02/11/17 15:00 97.7 85 18 115/72 (86) 96 02/11/17 15:00 78 02/11/17 15:00 97 Nasal Cannula 4.00 02/12/17 02/12/17 02/12/17 07:00 15:00 23:00 Intake Total 780 ml Output Total 1775 ml Balance -995 ml Exam: bilat wound vacs in place. Laboratory Date/Time Source Procedure Growth Status 02/08/17 13:15 Blood Peripheral Aerobic Blood Culture - Preliminary NO GROWTH IN 4 DAYS Resulted 02/08/17 13:15 Blood Peripheral Anaerobic Blood Culture - Preliminary NO GROWTH IN 4 DAYS Resulted 02/09/17 08:56 Wound Groin Fungal Smear - Final NO FUNGAL ELEMENTS SEEN. Resulted 02/09/17 08:56 Wound Groin Fungal Culture Pending Resulted Assessment and Plan Plan Wound vacs to be changed tuesday. Appear stable. Will encourage ambulation and continued IV abx. Discharge Planning mid week depending on wound progress Neno Cid DO Feb 12, 2017 14:09
[2017-02-12] MEDS: ATORVASTATIN 40 MG TAB PO SCH (20:13)
[2017-02-13] VITALS (23 sets, daily range): BP systolic 102–120; BP diastolic 63–73; PULSE 55–95; RESP 16–20; TEMP 97.4–98.4; O2SAT 91–95
[2017-02-13] MEDS: HYDROmorphone HCL 2 MG TAB PO PRN ×5 (01:43→20:56)
[2017-02-13] MEDS: PIPERACIL-TAZO 3.375 GM PREMIX 50 ML IV SCH ×4 (01:44→20:57)
[2017-02-13] MEDS: VANCOMYCIN INJ 1,200 MG in SODIUM CHLOR 0.9% 250 ML INJ 250 ML IV SCH ×2 (04:35→15:59)
--- NOTE | 2017-02-13 08:19 | PD.VS.PN ---
Subjective Procedure(s): R APPLICATIONS SUPPORT SPECIALIST PSA repair with L FV Subjective/Hospital Course Patient without complaints Cordell Po, NO BM Objective Vitals/I&O Date Time Temp Pulse Resp B/P (MAP) Pulse Ox O2 Delivery O2 Flow Rate FiO2 02/13/17 08:00 82 02/13/17 07:00 91 Nasal Cannula 4.00 02/13/17 07:00 55 02/13/17 07:00 97.4 66 16 109/73 (85) 91 02/13/17 06:00 70 02/13/17 05:00 71 02/13/17 04:00 98.2 68 18 120/69 (86) 93 02/13/17 04:00 68 02/13/17 04:00 Nasal Cannula 4.00 02/13/17 03:00 73 02/13/17 02:00 65 02/13/17 01:00 79 02/13/17 00:00 98.0 74 18 102/63 (76) 92 02/13/17 00:00 92 Nasal Cannula 2.00 02/13/17 00:00 74 02/12/17 23:00 76 02/12/17 22:00 76 02/12/17 21:00 76 02/12/17 20:00 98.2 86 20 117/65 (82) 92 02/12/17 20:00 82 02/12/17 20:00 92 Nasal Cannula 2.00 02/12/17 18:00 69 02/12/17 17:00 76 02/12/17 16:00 75 02/12/17 15:00 98.6 84 20 110/67 (81) 91 02/12/17 15:00 92 Nasal Cannula 2.00 02/12/17 15:00 82 02/12/17 14:00 87 02/12/17 13:00 76 02/12/17 12:20 82 02/12/17 12:20 98.4 82 20 121/77 (92) 93 02/12/17 11:00 97.9 72 18 103/60 (74) 92 02/12/17 11:00 72 02/12/17 11:00 92 Nasal Cannula 2.00 02/12/17 09:55 95 Nasal Cannula 2.00 02/13/17 02/13/17 02/13/17 07:00 15:00 23:00 Intake Total 480 ml Output Total 1200 ml Balance -720 ml Pulses: both extremities warm distally bilateral wound vacs in place. Laboratory Date/Time Source Procedure Growth Status 02/08/17 13:15 Blood Peripheral Aerobic Blood Culture - Preliminary NO GROWTH IN 4 DAYS Resulted 02/08/17 13:15 Blood Peripheral Anaerobic Blood Culture - Preliminary NO GROWTH IN 4 DAYS Resulted 02/09/17 08:56 Wound Groin Fungal Smear - Final NO FUNGAL ELEMENTS SEEN. Resulted 02/09/17 08:56 Wound Groin Fungal Culture Pending Resulted Assessment and Plan Plan Wound vacs to be changed tuesday. Continue IV abx. Discharge Planning mid week depending on wound progress Neno Cid DO Feb 13, 2017 08:19
[2017-02-13] MEDS: REMOVE OLD PATCH T-DERMAL SCH (08:39)
[2017-02-13] MEDS: NICOTINE 14 MG/24 HR PATCH T-DERMAL SCH (08:39)
[2017-02-13] MEDS: FAMOTIDINE 20 MG TAB PO SCH ×2 (08:40→20:56)
[2017-02-13] MEDS: SODIUM CHLORIDE 0.9% FLUSH 10 ML FLUSH IV FLUSH SCH ×2 (08:40→20:57)
[2017-02-13] MEDS: DOCUSATE SODIUM 100 MG CAP PO SCH ×2 (08:40→20:57)
[2017-02-13] MEDS: LISINOPRIL 10 MG TAB PO SCH (08:40)
[2017-02-13] MEDS: ASPIRIN 81 MG CHEW TAB PO SCH (08:40)
[2017-02-13] MEDS: BUDESONIDE-FORMOTEROL 160/4.5 MCG INHALER INH SCH ×2 (08:41→20:56)
[2017-02-13] MEDS: ALBUTEROL SULFATE 90 MCG/ACT HFA 8 GM INHALER INH SCH ×2 (08:41→20:56)
[2017-02-13] MEDS: ENOXAPARIN SODIUM 30 MG/0.3 ML SYRINGE SQ SCH (09:09)
[2017-02-13] MEDS: ATORVASTATIN 40 MG TAB PO SCH (20:56)
[2017-02-14] VITALS (25 sets, daily range): BP systolic 110–144; BP diastolic 69–77; PULSE 67–98; RESP 16–18; TEMP 97.5–98.9; O2SAT 93–98
[2017-02-14] MEDS: PIPERACIL-TAZO 3.375 GM PREMIX 50 ML IV SCH ×4 (01:35→20:33)
[2017-02-14] MEDS: HYDROmorphone HCL 2 MG TAB PO PRN ×5 (01:35→22:18)
[2017-02-14] MEDS: VANCOMYCIN INJ 1,200 MG in SODIUM CHLOR 0.9% 250 ML INJ 250 ML IV SCH ×2 (03:37→15:12)
[2017-02-14] MEDS: BUDESONIDE-FORMOTEROL 160/4.5 MCG INHALER INH SCH ×2 (09:00→20:33)
[2017-02-14] MEDS: ALBUTEROL SULFATE 90 MCG/ACT HFA 8 GM INHALER INH SCH ×2 (09:00→20:32)
[2017-02-14] MEDS: SODIUM CHLORIDE 0.9% FLUSH 10 ML FLUSH IV FLUSH SCH ×2 (09:00→20:32)
[2017-02-14] MEDS: FAMOTIDINE 20 MG TAB PO SCH ×2 (09:00→20:32)
[2017-02-14] MEDS: REMOVE OLD PATCH T-DERMAL SCH (09:00)
[2017-02-14] MEDS: NICOTINE 14 MG/24 HR PATCH T-DERMAL SCH (10:12)
[2017-02-14] MEDS: ENOXAPARIN SODIUM 30 MG/0.3 ML SYRINGE SQ SCH (10:12)
[2017-02-14] MEDS: DOCUSATE SODIUM 100 MG CAP PO SCH ×2 (10:13→20:32)
[2017-02-14] MEDS: LISINOPRIL 10 MG TAB PO SCH (10:13)
[2017-02-14] MEDS: ASPIRIN 81 MG CHEW TAB PO SCH (10:14)
--- NOTE | 2017-02-14 15:06 | PD.VS.PN ---
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 PSA repair with L FV Subjective/Hospital Course doing well nena po pain controlled VAC down today Objective Vitals/I&O Date Time Temp Pulse Resp B/P (MAP) Pulse Ox O2 Delivery O2 Flow Rate FiO2 02/14/17 14:00 98 02/14/17 13:00 82 02/14/17 12:00 86 02/14/17 11:22 16 02/14/17 11:00 97.5 74 18 144/77 (99) 96 02/14/17 11:00 84 02/14/17 11:00 Nasal Cannula 4.00 02/14/17 10:00 87 02/14/17 09:00 74 02/14/17 08:00 81 02/14/17 07:00 98.9 82 16 116/71 (86) 98 02/14/17 07:00 75 02/14/17 07:00 Nasal Cannula 4.00 02/14/17 06:00 83 02/14/17 05:00 79 02/14/17 04:00 77 02/14/17 04:00 98.1 77 18 111/70 (84) 93 02/14/17 04:00 Nasal Cannula 4.00 02/14/17 03:00 82 02/14/17 02:00 80 02/14/17 01:00 89 02/14/17 00:00 98.0 86 18 121/74 (90) 93 02/14/17 00:00 Nasal Cannula 4.00 02/14/17 00:00 86 02/13/17 23:00 85 02/13/17 22:00 87 02/13/17 21:00 89 02/13/17 20:00 98.2 95 20 118/69 (85) 92 02/13/17 20:00 Nasal Cannula 4.00 02/13/17 20:00 95 02/13/17 18:00 95 02/13/17 17:00 86 02/13/17 16:00 85 02/14/17 02/14/17 02/14/17 07:00 15:00 23:00 Intake Total 790 ml 150 ml Output Total 1100 ml Balance -310 ml 150 ml Exam: R groin without erythema serous drainage Laboratory Date/Time Source Procedure Growth Status 02/08/17 13:15 Blood Peripheral Aerobic Blood Culture - Final NO GROWTH IN 5 DAYS Complete 02/08/17 13:15 Blood Peripheral Anaerobic Blood Culture - Final NO GROWTH IN 5 DAYS Complete 02/09/17 08:56 Wound Groin Fungal Smear - Final NO FUNGAL ELEMENTS SEEN. Resulted 02/09/17 08:56 Wound Groin Fungal Culture Pending Resulted Assessment and Plan Plan VAC reapply today down again Wed continue IV antibiotics Discharge Planning Tue/Tue to rehab Lisandro Locke MD Feb 14, 2017 15:06
--- NOTE | 2017-02-14 17:55 | PD.WCN.NOT ---
Neg Pressure Wound Therapy Wound Location Wound Location: R groin Wound Description Periwound appearance: Other (incision lines at 6 o'clock and 12 o'clock) Settings Suction: 125 mmHg Intensity: Low Other Information: Bridged, Windowpaned, Mushroomed Foam type: Black, White Number of pieces: 2 Additonal Information Patient seen on [facility] for wound VAC dressing change to R groin wound. Removed dressing to R groin to reveal partially dehisced wound with approximated incision line at 6 o'clock and 12o'clock.Wound bed is noted with ~20% tendon,~20 % dark red tissue, and ~20% adipose and ~40% red non granulation tissue. Two sutures are noted in wound bed toward s the surface, one suture at wound margin at 6 o'clock, and 1 suture at wound bed base.Wound has minimal sero-sanguinous drainage with out odor. Cleansed wound with normal saline . Applied White VAC foam at wound base per request of Doctor Locke. Sutures protected in wound bed with oil emulsion gauze. Skin prep was spayed to periwound. before applying stoma paste to skin crevices to seal VAC dressing. Applied Xeroform single layer just over approximated incision line. to protect from VAC drape. Window paned VAC drape to periwound before Applying VAC granufoam cut in single strip and placed in wound bed in a coiled fashion.Bridged VAC granufoam to R anterior thigh over VAC drape. Mushroom cap of black granufoam was then placed on bridged foam with VAC sensi trac pad. Covered all exposed granufoam with VAC drape to seal. [facility]isel Mcintosh [facility] Feb 14, 2017 17:55
[2017-02-14] MEDS: ATORVASTATIN 40 MG TAB PO SCH (20:32)
[2017-02-15] VITALS (25 sets, daily range): BP systolic 101–142; BP diastolic 52–84; PULSE 54–89; RESP 18; TEMP 97.3–98.9; O2SAT 94–97
[2017-02-15] MEDS: PIPERACIL-TAZO 3.375 GM PREMIX 50 ML IV SCH ×4 (03:12→21:51)
[2017-02-15] MEDS: HYDROmorphone HCL 2 MG TAB PO PRN ×5 (03:13→23:58)
[2017-02-15] MEDS: VANCOMYCIN INJ 1,200 MG in SODIUM CHLOR 0.9% 250 ML INJ 250 ML IV SCH ×2 (03:59→14:47)
[2017-02-15] MEDS: ALBUTEROL SULFATE 90 MCG/ACT HFA 8 GM INHALER INH SCH ×2 (09:00→21:52)
[2017-02-15] MEDS: REMOVE OLD PATCH T-DERMAL SCH (09:00)
[2017-02-15] MEDS: FAMOTIDINE 20 MG TAB PO SCH ×2 (09:31→21:51)
[2017-02-15] MEDS: ENOXAPARIN SODIUM 30 MG/0.3 ML SYRINGE SQ SCH (09:31)
[2017-02-15] MEDS: ASPIRIN 81 MG CHEW TAB PO SCH (09:32)
[2017-02-15] MEDS: LISINOPRIL 10 MG TAB PO SCH (09:32)
[2017-02-15] MEDS: DOCUSATE SODIUM 100 MG CAP PO SCH ×2 (09:32→21:51)
[2017-02-15] MEDS: SODIUM CHLORIDE 0.9% FLUSH 10 ML FLUSH IV FLUSH SCH ×2 (09:32→21:53)
[2017-02-15] MEDS: BUDESONIDE-FORMOTEROL 160/4.5 MCG INHALER INH SCH ×2 (09:33→21:52)
[2017-02-15] MEDS: NICOTINE 14 MG/24 HR PATCH T-DERMAL SCH (09:43)
--- NOTE | 2017-02-15 12:34 | PD.VS.PN ---
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 with L FV Subjective/Hospital Course Pt in bed alert in NAD Wound vac to RIGHT groin Pain controlled Pt c/o alcohol withdraw - Feeling "shaky" Objective Vitals/I&O Date Time Temp Pulse Resp B/P (MAP) Pulse Ox O2 Delivery O2 Flow Rate FiO2 02/15/17 11:00 Nasal Cannula 4.00 02/15/17 11:00 86 02/15/17 11:00 97.3 78 18 142/84 (103) 97 02/15/17 10:00 89 02/15/17 09:00 78 02/15/17 08:00 84 02/15/17 07:19 14 02/15/17 07:00 97.4 74 18 114/73 (87) 97 02/15/17 07:00 54 02/15/17 07:00 Nasal Cannula 4.00 02/15/17 06:14 97.9 66 18 127/83 (98) 97 02/15/17 06:00 64 02/15/17 05:00 72 02/15/17 04:00 66 02/15/17 03:26 Nasal Cannula 4.00 02/15/17 03:00 75 02/15/17 02:00 68 02/15/17 01:00 70 02/15/17 00:00 72 02/14/17 23:02 97.9 69 18 110/69 (83) 97 02/14/17 23:01 Nasal Cannula 4.00 02/14/17 23:00 84 02/14/17 22:00 74 02/14/17 21:00 74 02/14/17 20:00 74 02/14/17 19:32 97.9 74 18 138/74 (95) 97 02/14/17 19:30 Nasal Cannula 4.00 02/14/17 19:00 67 02/14/17 17:12 74 02/14/17 16:00 74 02/14/17 15:00 76 02/14/17 15:00 97.9 74 18 138/74 (95) 97 02/14/17 15:00 Nasal Cannula 4.00 02/14/17 14:00 98 02/14/17 13:00 82 02/14/17 12:00 86 02/15/17 02/15/17 02/15/17 07:00 15:00 23:00 Intake Total 600 ml Output Total 650 ml Balance -50 ml Exam: GENERAL: Afebrile 61/M A&OX3,GCS15,NAD SKIN: Warm and dry Wound vac to RIGHT groin intact LEFT upper thigh incision I/C/D CARDIOVASCULAR: RRR,+S1,S2 RESPIRATORY: BS CTA GASTROINTESTINAL: S/NT MUSCULOSKELETAL: No cyanosis, or edema. Laboratory Date/Time Source Procedure Growth Status 02/08/17 13:15 Blood Peripheral Aerobic Blood Culture - Final NO GROWTH IN 5 DAYS Complete 02/08/17 13:15 Blood Peripheral Anaerobic Blood Culture - Final NO GROWTH IN 5 DAYS Complete 02/09/17 08:56 Wound Groin Fungal Smear - Final NO FUNGAL ELEMENTS SEEN. Resulted 02/09/17 08:56 Wound Groin Fungal Culture Pending Resulted Assessment and Plan Assessment: (1) Pseudoaneurysm of right femoral artery Status: Acute (2) PVD (peripheral vascular disease) Status: Chronic Plan Pt doing well POD 6 Wound VAC intact to RIGHT groin Plan Continue IV antibiotics R Groin Wound VAC dressing to be changed Tomorrow [facility] protocol ordered Toshia CAMARILLO [facility]/[employer] [phone] Toshia Trivedi Feb 15, 2017 12:34
[2017-02-15] MEDS ORDERED: LORazepam 1 MG TAB PO PRN (12:45)
[2017-02-15] MEDS ORDERED: LORazepam 2 MG/ML VIAL IV PUSH PRN ×3 (12:45)
[2017-02-15] MEDS ORDERED: FLUMAZENIL 0.5 MG/5 ML VIAL IV PUSH PRN (12:45)
[2017-02-15] MEDS ORDERED: LORazepam 2 MG TAB PO PRN (12:45)
[2017-02-15] MEDS: ATORVASTATIN 40 MG TAB PO SCH (21:51)
[2017-02-16] VITALS (22 sets, daily range): BP systolic 110–111; BP diastolic 60–66; PULSE 59–88; RESP 18–20; TEMP 98–98.9; O2SAT 92–95
[2017-02-16] MEDS: PIPERACIL-TAZO 3.375 GM PREMIX 50 ML IV SCH ×4 (02:53→20:38)
[2017-02-16] MEDS: VANCOMYCIN INJ 1,200 MG in SODIUM CHLOR 0.9% 250 ML INJ 250 ML IV SCH ×2 (03:42→16:41)
[2017-02-16] MEDS: HYDROmorphone HCL 2 MG TAB PO PRN ×4 (06:38→23:28)
[2017-02-16] MEDS: BUDESONIDE-FORMOTEROL 160/4.5 MCG INHALER INH SCH ×2 (09:00→20:39)
[2017-02-16] MEDS: ALBUTEROL SULFATE 90 MCG/ACT HFA 8 GM INHALER INH SCH ×2 (09:00→20:39)
[2017-02-16] MEDS: REMOVE OLD PATCH T-DERMAL SCH (11:00)
[2017-02-16] MEDS: DOCUSATE SODIUM 100 MG CAP PO SCH ×2 (11:06→20:39)
[2017-02-16] MEDS: LISINOPRIL 10 MG TAB PO SCH (11:06)
[2017-02-16] MEDS: SODIUM CHLORIDE 0.9% FLUSH 10 ML FLUSH IV FLUSH SCH ×2 (11:07→20:39)
[2017-02-16] MEDS: ASPIRIN 81 MG CHEW TAB PO SCH (11:07)
[2017-02-16] MEDS: FAMOTIDINE 20 MG TAB PO SCH ×2 (11:07→20:38)
[2017-02-16] MEDS: NICOTINE 14 MG/24 HR PATCH T-DERMAL SCH (11:08)
[2017-02-16] MEDS: ENOXAPARIN SODIUM 30 MG/0.3 ML SYRINGE SQ SCH (11:09)
--- NOTE | 2017-02-16 18:12 | PD.WCN.NOT ---
Wound Consult Description: Consult for wound vac changes to R groin Tuesday Communicated with: ADRIANA Pope Recommendation: Continue wound VAC changes to Right groin M-W- with settings @125mmHg low continuous suction Additional Information: Patient seen on [facility] for wound VAC change as requested by MARQUISE Trivedi Neg Pressure Wound Therapy Wound Location Wound Location: R groin Wound Description Length: 11.4cm Width: 4cm Depth: 2.6cm Wound bed appearance: Wound bed is noted with ~70% granulation tissue, ~20% dark red/brown stringy unknown tissue at base of wound bed, and ~10% adipose tissue in wound bed @ ~8 o 'clock. One suture is noted @12 o'clock in wound bed close to the surface. Periwound appearance: Other (Periwound is noted with approximated incision line at 12 o'clock and dehisced incision line @ 6 o'clock measuring ~2cm x 1cm < 1cm.) Settings Suction: 125 mmHg Intensity: Low Other Information: Bridged, Windowpaned, Mushroomed Foam type: Black, White Number of pieces: other (4 pieces used in all. 1 piece white foam in base of wound bed. 2 pieces black foam in wound bed and 1 piece used to bridge to right anterior thigh) Additonal Information Patient seen in [facility] for wound VAC change of R groin wound. Wound on the right groin had a moist to dry dressing in place that was removed and noted to be saturated with yellow clear fluid and mild odor. Wound was cleansed with NS and gauze and measured above. Periwound is noted with approximated incision line at 12 o'clock and dehisced incision line @ 6 o'clock measuring ~2cm x 1cm < 1cm. Wound bed is noted with ~70% granulation tissue, ~20% dark red stringy unknown tissue, and ~10% adipose tissue. One suture is noted @12 o'clock in wound bed close to the surface, one suture at wound margin at 6 o'clock. Wound has moderate yellow clear drainage with mild odor. Wound margins are open and minimally erythematous from 12- 6 o'clock. Periwound is noted with induration from 12 to 6 o'clock. Cavilon used to prep periwound. Applied Xeroform single layer to dehisced incision line at 6 o'clock to protect from VAC drape. 1 piece white foam cut and placed in base of wound bed over dark unknown tissue as requested by Dr Locke. 1 piece black granufoam cut in shape of wound bed and placed in wound and secured with VAC drape. 1 smaller piece of black granufoam cut and placed in wound bed @ 6 o'clock where wound meets the dehisced area with Xeroform covering wound. Bridged VAC granufoam and trac pad to R anterior thigh over VAC drape. All remaining exposed black granufoam covered with VAC drape to seal. Stoma paste applied to skin crevices to seal VAC dressing. Machine turned on with new canister placed. No leaks noted. Patient was asked to sit up in bed for further assessment of leaks. No leaks noted with new seated position. Next wound VAC change to be done on Tuesday02/18/17. [facility] Feb 16, 2017 18:12
[2017-02-16] MEDS: ATORVASTATIN 40 MG TAB PO SCH (20:38)
[2017-02-17] VITALS (17 sets, daily range): BP systolic 99–125; BP diastolic 68–73; PULSE 50–93; RESP 16–18; TEMP 96.6–98.4; O2SAT 94–99
[2017-02-17] MEDS: PIPERACIL-TAZO 3.375 GM PREMIX 50 ML IV SCH ×4 (03:27→22:31)
[2017-02-17] MEDS: VANCOMYCIN INJ 1,200 MG in SODIUM CHLOR 0.9% 250 ML INJ 250 ML IV SCH ×2 (03:28→16:54)
[2017-02-17] MEDS: HYDROmorphone HCL 2 MG TAB PO PRN ×4 (04:37→20:51)
[2017-02-17] MEDS: REMOVE OLD PATCH T-DERMAL SCH (09:00)
[2017-02-17] MEDS: SODIUM CHLORIDE 0.9% FLUSH 10 ML FLUSH IV FLUSH SCH ×2 (09:00→20:53)
[2017-02-17] MEDS: NICOTINE 14 MG/24 HR PATCH T-DERMAL SCH (10:00)
[2017-02-17] MEDS: FAMOTIDINE 20 MG TAB PO SCH ×2 (10:00→20:51)
[2017-02-17] MEDS: ENOXAPARIN SODIUM 30 MG/0.3 ML SYRINGE SQ SCH (10:00)
[2017-02-17] MEDS: ASPIRIN 81 MG CHEW TAB PO SCH (10:00)
[2017-02-17] MEDS: DOCUSATE SODIUM 100 MG CAP PO SCH ×2 (10:00→20:51)
[2017-02-17] MEDS: ALBUTEROL SULFATE 90 MCG/ACT HFA 8 GM INHALER INH SCH ×2 (10:02→20:53)
[2017-02-17] MEDS: BUDESONIDE-FORMOTEROL 160/4.5 MCG INHALER INH SCH ×2 (10:02→20:53)
[2017-02-17] MEDS: LISINOPRIL 10 MG TAB PO SCH (10:05)
--- NOTE | 2017-02-17 10:39 | PD.VS.PN ---
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 L FV Subjective/Hospital Course Afebrile 61/M Pt alert in nad Wound vac to RIGHT groin intact Wound vac Dressing changed on 02/16/17 Pain controlled Objective Vitals/I&O Date Time Temp Pulse Resp B/P (MAP) Pulse Ox O2 Delivery O2 Flow Rate FiO2 02/17/17 08:19 98.4 66 18 99/68 (78) 95 02/17/17 06:00 64 02/17/17 05:00 64 02/17/17 05:00 95 Nasal Cannula 2.00 02/17/17 04:26 98.0 56 18 113/70 (84) 95 02/17/17 04:00 54 02/17/17 03:00 50 02/17/17 02:00 56 02/17/17 01:00 72 02/17/17 00:20 95 Nasal Cannula 2.00 02/17/17 00:10 98.0 67 18 123/73 (90) 97 02/17/17 00:00 68 02/16/17 23:00 70 02/16/17 22:00 70 02/16/17 21:00 74 02/16/17 20:00 95 Room Air 02/16/17 20:00 78 02/16/17 19:35 98.5 77 18 110/66 (81) 95 02/16/17 19:00 80 02/16/17 18:00 78 02/16/17 16:00 75 02/16/17 16:00 95 Nasal Cannula 2.00 02/16/17 16:00 98.5 75 20 95 02/16/17 14:00 82 02/16/17 12:00 90 Nasal Cannula 2.00 02/16/17 12:00 98.3 88 20 92 02/16/17 12:00 84 02/16/17 11:00 82 02/17/17 02/17/17 02/17/17 07:00 15:00 23:00 Intake Total 720 ml Output Total 900 ml Balance -180 ml Exam: GENERAL: A&)X#,NAD,GCS15 SKIN: Warm and dry Left upper thigh incision intact w/o R/D/S/O Right groin w/ wound vac dressing intact CARDIOVASCULAR: +S1,S2 RESPIRATORY: Breath sounds equal bilaterally. No accessory muscle use. GASTROINTESTINAL: S/NT MUSCULOSKELETAL: No cyanosis, or edema. Laboratory Date/Time Source Procedure Growth Status 02/08/17 13:15 Blood Peripheral Aerobic Blood Culture - Final NO GROWTH IN 5 DAYS Complete 02/08/17 13:15 Blood Peripheral Anaerobic Blood Culture - Final NO GROWTH IN 5 DAYS Complete 02/09/17 08:56 Wound Groin Fungal Smear - Final NO FUNGAL ELEMENTS SEEN. Resulted 02/09/17 08:56 Wound Groin Fungal Culture - Preliminary NO GROWTH IN 1 WEEK Resulted Assessment and Plan Assessment: (1) Pseudoaneurysm of right femoral artery Status: Acute (2) PVD (peripheral vascular disease) Status: Chronic Plan Pt doing well POD 8 Wound VAC intact to RIGHT groin Plan Continue IV antibiotics R Groin Wound VAC dressing to be changed Tomorrow (Tuesday) Pt ok to transfer to medical unit Toshia CAMARILLO [facility]/[place] [phone] Toshia Trivedi Feb 17, 2017 10:39
[2017-02-17] MEDS: ATORVASTATIN 40 MG TAB PO SCH (20:51)
[2017-02-18 01:20] VITALS: BP 109/62; PULSE 72; RESP 18; TEMP 97.8; O2SAT 97
[2017-02-18] MEDS: PIPERACIL-TAZO 3.375 GM PREMIX 50 ML IV SCH ×4 (02:31→20:08)
[2017-02-18] MEDS: HYDROmorphone HCL 2 MG TAB PO PRN ×4 (02:32→20:08)
[2017-02-18] MEDS: VANCOMYCIN INJ 1,200 MG in SODIUM CHLOR 0.9% 250 ML INJ 250 ML IV SCH ×2 (03:07→17:18)
[2017-02-18 08:00] VITALS: BP 110/68; PULSE 64; RESP 18; TEMP 96.8; O2SAT 97
[2017-02-18] MEDS: LISINOPRIL 10 MG TAB PO SCH (08:44)
[2017-02-18] MEDS: FAMOTIDINE 20 MG TAB PO SCH ×2 (08:44→20:07)
[2017-02-18] MEDS: BUDESONIDE-FORMOTEROL 160/4.5 MCG INHALER INH SCH ×2 (08:44→20:10)
[2017-02-18] MEDS: ASPIRIN 81 MG CHEW TAB PO SCH (08:44)
[2017-02-18] MEDS: DOCUSATE SODIUM 100 MG CAP PO SCH ×2 (08:44→20:07)
[2017-02-18] MEDS: SODIUM CHLORIDE 0.9% FLUSH 10 ML FLUSH IV FLUSH SCH ×2 (08:45→20:08)
[2017-02-18] MEDS: ALBUTEROL SULFATE 90 MCG/ACT HFA 8 GM INHALER INH SCH ×2 (08:45→20:09)
[2017-02-18] MEDS: REMOVE OLD PATCH T-DERMAL SCH (08:45)
[2017-02-18] MEDS: ENOXAPARIN SODIUM 30 MG/0.3 ML SYRINGE SQ SCH (08:46)
[2017-02-18 12:00] VITALS: BP 105/60; PULSE 73; RESP 18; TEMP 97.4; O2SAT 97
[2017-02-18 16:00] VITALS: BP 125/69; PULSE 90; RESP 18; TEMP 97.8; O2SAT 95
--- NOTE | 2017-02-18 17:05 | PD.VS.PN ---
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 Subjective/Hospital Course doing well pain controlled VAC down today Objective Vitals/I&O Date Time Temp Pulse Resp B/P (MAP) Pulse Ox O2 Delivery O2 Flow Rate FiO2 02/18/17 16:00 97.8 90 18 125/69 (87) 95 02/18/17 12:00 97.4 73 18 105/60 (75) 97 02/18/17 08:44 Nasal Cannula 4.00 02/18/17 08:00 96.8 64 18 110/68 (82) 97 02/18/17 01:20 97.8 72 18 109/62 (78) 97 02/17/17 20:25 99 Room Air 02/17/17 20:00 98.2 76 18 125/69 (87) 99 02/17/17 18:15 96.6 74 17 116/69 (85) 99 02/17/17 18:04 Nasal Cannula 3.00 02/18/17 02/18/17 02/18/17 07:00 15:00 23:00 Intake Total 120 ml Balance 120 ml Exam: R groin wound healing. Serous drainage + granulation beneath wound VAC Laboratory Date/Time Source Procedure Growth Status 02/08/17 13:15 Blood Peripheral Aerobic Blood Culture - Final NO GROWTH IN 5 DAYS Complete 02/08/17 13:15 Blood Peripheral Anaerobic Blood Culture - Final NO GROWTH IN 5 DAYS Complete 02/09/17 08:56 Wound Groin Fungal Smear - Final NO FUNGAL ELEMENTS SEEN. Resulted 02/09/17 08:56 Wound Groin Fungal Culture - Preliminary NO GROWTH IN 1 WEEK Resulted Assessment and Plan Assessment: (1) Pseudoaneurysm of right femoral artery Status: Acute (2) PVD (peripheral vascular disease) Status: Chronic Plan Pt doing well POD 9 Continue wound VAC Continue antibiotics OOB ad yessy Discharge Planning mid-next week; needs rehab Lisandro Locke MD Feb 18, 2017 17:05
--- NOTE | 2017-02-18 17:44 | PD.WCN.NOT ---
Wound Consult Description: Consult for wound vac changes to R groin Tuesday Communicated with: MARQUISE Trivedi Recommendation: Continue wound VAC changes to Right groin M-W- with settings @125mmHg low continuous suction Additional Information: Patient seen on for wound VAC change to right groin as ordered. Neg Pressure Wound Therapy Wound Location Wound Location: Right groin Wound Description Length: ~11cm Width: ~4cm Depth: ~2.5cm Wound bed appearance: Wound bed is noted with ~70% granulation tissue, ~20% red stringy muscle appearing tissue at base of wound bed, and ~10% adipose tissue in wound bed @ ~ 7 o'clock. One suture is noted @12 o'clock in wound bed close to the surface and another suture noted in wound bed @ 6 o'clock at wound margins that are open. There is minimal clear yellow fluid noted in wound bed without odor. Periwound appearance: Unremarkable (1 piece white foam used in base of wound bed from middle of wound to 6 o'clock. 3 pieces black foam used in rest of wound bed.) Settings Suction: 125 mmHg, Continuous Intensity: Low Other Information: Bridged, Windowpaned, Mushroomed Foam type: Black (3 black granufoam pieces used in all ), White (1 piece white sterile moist foam used in base of wound measuring ~2.5cm x 0.5cm) Number of pieces: other (4 pieces used in all. 1 piece white foam in base of wound bed. 2 pieces black foam in wound bed and 1 piece used to bridge to right anterior thigh) Additonal Information Patient seen on for wound VAC change of R groin wound after being assessed by MARQUISE Trivedi and Dr Lokce. Wound on the right groin had a moist to dry dressing in place that was removed for assessment. Wound was cleansed with NS and gauze. Wound bed is noted with ~70% granulation tissue, ~20% red stringy muscle appearing tissue, and ~10% adipose tissue. One suture is noted @12 o' clock in wound bed close to the surface, one suture at wound margin at 6 o' clock. Wound has minimal yellow clear drainage with out odor. Wound margins are open. Periwound is noted with induration from 12 to 6 o'clock. Cavilon was used to prep periwound. 1 piece white foam cut and placed in base of wound bed over what appears to be muscle tissue. 1 piece black granufoam cut in shape of wound bed and placed in wound and secured with VAC drape. 1 smaller piece of black granufoam cut and placed in wound bed @ 6-9 o'clock where wound meets the closed wound area distally and another piece of black granufoam used to bridge and place trac pad to R anterior thigh over VAC drape to protect intact skin. All remaining exposed black granufoam covered with VAC drape to seal. Stoma paste applied to skin crevices to seal VAC dressing. Machine turned on with no leaks noted. Patient was asked to sit up in bed for further assessment of leaks. No leaks noted with new seated position. Next wound VAC change to be done on Tuesday02/21/17. [facility] Feb 18, 2017 17:44
[2017-02-18 20:00] VITALS: BP 117/65; PULSE 119; RESP 17; TEMP 95.8; O2SAT 97
[2017-02-18] MEDS: ATORVASTATIN 40 MG TAB PO SCH (20:08)
[2017-02-18 20:14] VITALS: PULSE 81
[2017-02-19] VITALS (9 sets, daily range): BP systolic 101–122; BP diastolic 60–68; PULSE 58–90; RESP 15–18; TEMP 95.9–98.8; O2SAT 92–98
[2017-02-19] MEDS: PIPERACIL-TAZO 3.375 GM PREMIX 50 ML IV SCH ×4 (02:01→19:48)
[2017-02-19] MEDS: HYDROmorphone HCL 2 MG TAB PO PRN ×5 (02:01→22:01)
[2017-02-19] MEDS: VANCOMYCIN INJ 1,200 MG in SODIUM CHLOR 0.9% 250 ML INJ 250 ML IV SCH ×2 (03:12→18:27)
--- NOTE | 2017-02-19 07:19 | PD.VS.PN ---
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 Subjective/Hospital Course doing well pain controlled wound healing - VAC reapplied yesterday Objective Vitals/I&O Date Time Temp Pulse Resp B/P (MAP) Pulse Ox O2 Delivery O2 Flow Rate FiO2 02/19/17 04:00 Nasal Cannula 2.00 02/19/17 04:00 98.6 67 16 101/68 (79) 97 02/19/17 00:00 98.3 85 16 122/60 (80) 97 02/19/17 00:00 Nasal Cannula 2.00 02/18/17 20:14 81 02/18/17 20:00 95.8 119 17 117/65 (82) 97 02/18/17 20:00 Nasal Cannula 2.00 02/18/17 18:08 Nasal Cannula 2.00 02/18/17 16:00 97.8 90 18 125/69 (87) 95 02/18/17 12:00 97.4 73 18 105/60 (75) 97 02/18/17 08:44 Nasal Cannula 4.00 02/18/17 08:00 96.8 64 18 110/68 (82) 97 02/19/17 02/19/17 02/19/17 07:00 15:00 23:00 Intake Total 552 ml Output Total 800 ml Balance -248 ml Exam: R leg ok motor intact no erythema around wound VAC back on Laboratory Date/Time Source Procedure Growth Status 02/08/17 13:15 Blood Peripheral Aerobic Blood Culture - Final NO GROWTH IN 5 DAYS Complete 02/08/17 13:15 Blood Peripheral Anaerobic Blood Culture - Final NO GROWTH IN 5 DAYS Complete 02/09/17 08:56 Wound Groin Fungal Smear - Final NO FUNGAL ELEMENTS SEEN. Resulted 02/09/17 08:56 Wound Groin Fungal Culture - Preliminary NO GROWTH IN 1 WEEK Resulted Assessment and Plan Assessment: (1) Pseudoaneurysm of right femoral artery Status: Acute (2) PVD (peripheral vascular disease) Status: Chronic Plan Pt doing well POD 10 Continue wound VAC Continue antibiotics OOB ad yessy VAC down Tuesday Discharge Planning mid-next week; needs rehab Lisandro Locke MD Feb 19, 2017 07:19
[2017-02-19] MEDS: BUDESONIDE-FORMOTEROL 160/4.5 MCG INHALER INH SCH ×2 (09:00→19:46)
[2017-02-19] MEDS: REMOVE OLD PATCH T-DERMAL SCH (09:00)
[2017-02-19] MEDS: ALBUTEROL SULFATE 90 MCG/ACT HFA 8 GM INHALER INH SCH ×2 (09:00→19:46)
[2017-02-19] MEDS: ENOXAPARIN SODIUM 30 MG/0.3 ML SYRINGE SQ SCH (10:53)
[2017-02-19] MEDS: FAMOTIDINE 20 MG TAB PO SCH ×2 (10:53→19:45)
[2017-02-19] MEDS: DOCUSATE SODIUM 100 MG CAP PO SCH ×2 (10:54→19:45)
[2017-02-19] MEDS: SODIUM CHLORIDE 0.9% FLUSH 10 ML FLUSH IV FLUSH SCH ×2 (10:55→19:45)
[2017-02-19] MEDS: ASPIRIN 81 MG CHEW TAB PO SCH (11:10)
[2017-02-19] MEDS: LISINOPRIL 10 MG TAB PO SCH (11:10)
[2017-02-19] MEDS: ATORVASTATIN 40 MG TAB PO SCH (19:45)
[2017-02-20] VITALS (8 sets, daily range): BP systolic 108–123; BP diastolic 61–71; PULSE 66–83; RESP 15–20; TEMP 97.3–98; O2SAT 90–96
[2017-02-20] MEDS: HYDROmorphone HCL 2 MG TAB PO PRN ×5 (02:58→20:29)
[2017-02-20] MEDS: PIPERACIL-TAZO 3.375 GM PREMIX 50 ML IV SCH ×2 (02:58→07:46)
[2017-02-20] MEDS: VANCOMYCIN INJ 1,200 MG in SODIUM CHLOR 0.9% 250 ML INJ 250 ML IV SCH (03:39)
[2017-02-20] MEDS: REMOVE OLD PATCH T-DERMAL SCH (07:05)
[2017-02-20] MEDS: ASPIRIN 81 MG CHEW TAB PO SCH (07:44)
[2017-02-20] MEDS: LISINOPRIL 10 MG TAB PO SCH (07:45)
[2017-02-20] MEDS: BUDESONIDE-FORMOTEROL 160/4.5 MCG INHALER INH SCH ×2 (08:02→19:58)
[2017-02-20] MEDS: ALBUTEROL SULFATE 90 MCG/ACT HFA 8 GM INHALER INH SCH ×2 (08:02→19:58)
[2017-02-20] MEDS: DOCUSATE SODIUM 100 MG CAP PO SCH ×2 (08:02→19:58)
[2017-02-20] MEDS: SODIUM CHLORIDE 0.9% FLUSH 10 ML FLUSH IV FLUSH SCH ×2 (08:02→19:58)
[2017-02-20] MEDS: FAMOTIDINE 20 MG TAB PO SCH ×2 (08:02→19:58)
[2017-02-20] MEDS: ENOXAPARIN SODIUM 30 MG/0.3 ML SYRINGE SQ SCH (08:10)
--- NOTE | 2017-02-20 09:52 | PD.VS.PN ---
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 Subjective/Hospital Course doing well pain controlled wound healing - VAC reapplied Tue OOB and ambulated in room Objective Vitals/I&O Date Time Temp Pulse Resp B/P (MAP) Pulse Ox O2 Delivery O2 Flow Rate FiO2 02/20/17 08:18 67 02/20/17 08:00 97.6 72 17 116/69 (85) 96 02/20/17 04:48 97.3 66 16 110/61 (77) 93 02/20/17 03:58 18 02/20/17 00:41 97.5 74 18 116/71 (86) 95 02/19/17 20:19 68 02/19/17 20:00 98.8 74 18 104/64 (77) 96 02/19/17 16:00 97.6 77 15 106/65 (79) 92 02/19/17 12:00 98.0 90 16 115/61 (79) 95 02/19/17 10:00 97 Nasal Cannula 2.00 02/20/17 02/20/17 02/20/17 07:00 15:00 23:00 Intake Total 312 ml Output Total 1125 ml Balance -813 ml Exam: Palpable pedal pulse R groin ok VAC in place Laboratory Date/Time Source Procedure Growth Status 02/08/17 13:15 Blood Peripheral Aerobic Blood Culture - Final NO GROWTH IN 5 DAYS Complete 02/08/17 13:15 Blood Peripheral Anaerobic Blood Culture - Final NO GROWTH IN 5 DAYS Complete 02/09/17 08:56 Wound Groin Fungal Smear - Final NO FUNGAL ELEMENTS SEEN. Resulted 02/09/17 08:56 Wound Groin Fungal Culture - Preliminary NO GROWTH IN 1 WEEK Resulted Assessment and Plan Assessment: (1) Pseudoaneurysm of right femoral artery Status: Acute (2) PVD (peripheral vascular disease) Status: Chronic Plan Pt doing well POD 11 Continue wound VAC Stop antibiotics as completed 10 days OOB ad yessy VAC down Tuesday Discharge Planning mid-next week; needs rehab Lisandro Locke MD Feb 20, 2017 09:51
[2017-02-20] MEDS: ATORVASTATIN 40 MG TAB PO SCH (19:58)
[2017-02-21] VITALS (9 sets, daily range): BP systolic 95–132; BP diastolic 60–83; PULSE 67–80; RESP 16–20; TEMP 95.7–99; O2SAT 93–98
[2017-02-21] MEDS: HYDROmorphone HCL 2 MG TAB PO PRN ×6 (00:43→22:47)
[2017-02-21] MEDS: BUDESONIDE-FORMOTEROL 160/4.5 MCG INHALER INH SCH ×2 (09:00→21:44)
[2017-02-21] MEDS: REMOVE OLD PATCH T-DERMAL SCH (09:00)
[2017-02-21] MEDS: ALBUTEROL SULFATE 90 MCG/ACT HFA 8 GM INHALER INH SCH ×2 (09:00→21:44)
[2017-02-21] MEDS: ASPIRIN 81 MG CHEW TAB PO SCH (10:09)
[2017-02-21] MEDS: DOCUSATE SODIUM 100 MG CAP PO SCH ×2 (10:09→21:42)
[2017-02-21] MEDS: FAMOTIDINE 20 MG TAB PO SCH ×2 (10:09→21:42)
[2017-02-21] MEDS: LISINOPRIL 10 MG TAB PO SCH (10:09)
[2017-02-21] MEDS: ENOXAPARIN SODIUM 30 MG/0.3 ML SYRINGE SQ SCH (10:11)
[2017-02-21] MEDS: SODIUM CHLORIDE 0.9% FLUSH 10 ML FLUSH IV FLUSH SCH ×2 (10:11→21:45)
--- NOTE | 2017-02-21 13:16 | PD.VS.PN ---
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 L FV Subjective/Hospital Course Afebrile 61/M Pt in bed doing well Pain controlled R groin wound with improved healing Objective Vitals/I&O Date Time Temp Pulse Resp B/P (MAP) Pulse Ox O2 Delivery O2 Flow Rate FiO2 02/21/17 08:17 97 2.00 02/21/17 08:00 95.7 74 18 132/83 (99) 96 02/21/17 07:53 67 02/21/17 06:21 18 02/21/17 04:40 97.7 71 18 118/65 (82) 96 02/21/17 00:07 98.4 76 18 116/60 (78) 93 02/20/17 20:29 97.8 83 20 112/69 (83) 93 02/20/17 20:20 80 02/20/17 16:00 98.0 75 15 123/66 (85) 94 02/21/17 02/21/17 02/21/17 07:00 15:00 23:00 Intake Total 480 ml Output Total 800 ml 600 ml Balance -320 ml -600 ml Exam: GENERAL: A&OX3,GCS15,NAD SKIN: Warm and dry left upper thigh incision intact w/o R/D/S/O R groin w/ improved healing +granulation tissue present and NO S/O or erythema present/ serosanguineous drainage present LE warm w/ motor intact Laboratory Date/Time Source Procedure Growth Status 02/08/17 13:15 Blood Peripheral Aerobic Blood Culture - Final NO GROWTH IN 5 DAYS Complete 02/08/17 13:15 Blood Peripheral Anaerobic Blood Culture - Final NO GROWTH IN 5 DAYS Complete 02/09/17 08:56 Wound Groin Fungal Smear - Final NO FUNGAL ELEMENTS SEEN. Resulted 02/09/17 08:56 Wound Groin Fungal Culture - Preliminary NO GROWTH IN 1 WEEK Resulted Assessment and Plan Assessment: (1) Pseudoaneurysm of right femoral artery Status: Acute (2) PVD (peripheral vascular disease) Status: Chronic Plan Pt doing well POD 12 Plan Continue wound VAC therapy PT/OOB ad yessy VAC dressing to be changed today Toshia CAMARILLO [facility]/[employer] [phone] Discharge Planning mid-next week; needs rehab Toshia Trivedi Feb 21, 2017 13:16
--- NOTE | 2017-02-21 17:57 | PD.WCN.NOT ---
Neg Pressure Wound Therapy Wound Location Wound Location: Right groin Wound Description Length: 11cm Width: 4cm Depth: 3cm Wound bed appearance: Wound bed is noted with ~70% granulation tissue, ~20% red stringy muscle appearing tissue at base of wound bed, and ~10% adipose tissue in wound bed @ ~ 7 o'clock. One suture is noted @12 o'clock in wound bed close to the surface and another suture noted in wound bed @ 6 o'clock at wound margins that are open. There is minimal clear yellow fluid noted in wound bed without odor. Settings Suction: 125 mmHg, Continuous Intensity: Low Other Information: Bridged, Windowpaned, Mushroomed Foam type: Black (3 black granufoam pieces used in all ), White (1 piece white sterile moist foam used in base of wound measuring ~2.5cm x 0.5cm) Number of pieces: other (4 pieces used in all. 1 piece white foam in base of wound bed. 2 pieces black foam in wound bed and 1 piece used to bridge to right anterior thigh) Additonal Information Patient seen on for wound VAC change of R groin wound after being assessed by MARQUISE Trivedi and Dr Locke. Wound on the right groin had a moist to dry dressing in place that was removed for assessment. Wound was cleansed with NS and gauze. Wound bed is noted with ~70% granulation tissue, ~20% red stringy muscle appearing tissue, and ~10% adipose tissue. One suture is noted @12 o' clock in wound bed close to the surface, one suture at wound margin at 6 o' clock. Wound has minimal yellow clear drainage with out odor. Wound margins are open. Periwound is noted with induration from 12 to 6 o'clock. Cavilon was used to prep periwound. 1 piece white foam cut and placed in base of wound bed over what appears to be muscle tissue. Xeroform placed at 6 o'clock over small dehisced incision. Oil emulsion gauze was placed over sutures in wound bed to protect.1 piece black granufoam cut in single strip and placed in wound and secured with VAC drape.Another strip of black granufoam used to bridge and place trac pad to R anterior thigh over VAC drape to protect intact skin. All remaining exposed black granufoam covered with VAC drape to seal. Stoma paste applied to skin crevices to seal VAC dressing. Machine turned on with no leaks noted. Patient was asked to sit up in bed for further assessment of leaks. No leaks noted with new seated position. Next wound VAC change to be done on Tuesday02/21/17. [facility]isel [facility]intosh [facility] Feb 21, 2017 17:57
[2017-02-21] MEDS: ATORVASTATIN 40 MG TAB PO SCH (21:42)
[2017-02-22] VITALS: BP 109/64; PULSE 72; RESP 18; TEMP 98.2; O2SAT 96
[2017-02-22] MEDS: HYDROmorphone HCL 2 MG TAB PO PRN ×5 (03:36→20:44)
[2017-02-22 04:00] VITALS: BP 109/71; PULSE 70; RESP 18; TEMP 96.4; O2SAT 96
[2017-02-22] MEDS: DOCUSATE SODIUM 100 MG CAP PO SCH ×2 (07:58→20:43)
[2017-02-22] MEDS: LISINOPRIL 10 MG TAB PO SCH (07:59)
[2017-02-22] MEDS: ASPIRIN 81 MG CHEW TAB PO SCH (07:59)
[2017-02-22] MEDS: FAMOTIDINE 20 MG TAB PO SCH ×2 (07:59→20:44)
[2017-02-22 08:00] VITALS: BP 116/63; PULSE 71; RESP 16; TEMP 96.1; O2SAT 93
[2017-02-22] MEDS: ENOXAPARIN SODIUM 30 MG/0.3 ML SYRINGE SQ SCH (08:00)
[2017-02-22] MEDS: REMOVE OLD PATCH T-DERMAL SCH (08:00)
[2017-02-22] MEDS: SODIUM CHLORIDE 0.9% FLUSH 10 ML FLUSH IV FLUSH SCH ×2 (08:01→20:44)
[2017-02-22] MEDS: ALBUTEROL SULFATE 90 MCG/ACT HFA 8 GM INHALER INH SCH ×2 (08:01→20:45)
[2017-02-22] MEDS: BUDESONIDE-FORMOTEROL 160/4.5 MCG INHALER INH SCH ×2 (08:01→20:45)
[2017-02-22 12:00] VITALS: BP 112/72; PULSE 88; RESP 17; TEMP 97.7; O2SAT 95
--- NOTE | 2017-02-22 12:57 | PD.VS.PN ---
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 L FV Subjective/Hospital Course Afebrile 61/M Pt in bed doing well Pain controlled R groin wound vac intact Objective Vitals/I&O Date Time Temp Pulse Resp B/P (MAP) Pulse Ox O2 Delivery O2 Flow Rate FiO2 02/22/17 12:00 97.7 88 17 112/72 (85) 95 02/22/17 08:00 96.1 71 16 116/63 (80) 93 02/22/17 04:00 96.4 70 18 109/71 (84) 96 02/22/17 00:00 98.2 72 18 109/64 (79) 96 02/21/17 20:20 74 02/21/17 20:00 99.0 76 20 112/68 (83) 96 02/21/17 16:00 97.9 80 16 95/66 (76) 98 02/22/17 02/22/17 02/22/17 07:00 15:00 23:00 Output Total 0 ml Balance 0 ml Exam: GENERAL: A&OX3,GCS15,NAD SKIN: Warm and dry left upper thigh incision intact w/o R/D/S/O R groin w/ wound vac intact LE warm w/ motor intact Laboratory Date/Time Source Procedure Growth Status 02/08/17 13:15 Blood Peripheral Aerobic Blood Culture - Final NO GROWTH IN 5 DAYS Complete 02/08/17 13:15 Blood Peripheral Anaerobic Blood Culture - Final NO GROWTH IN 5 DAYS Complete 02/09/17 08:56 Wound Groin Fungal Smear - Final NO FUNGAL ELEMENTS SEEN. Resulted 02/09/17 08:56 Wound Groin Fungal Culture - Preliminary NO GROWTH IN 1 WEEK Resulted Assessment and Plan Assessment: (1) Pseudoaneurysm of right femoral artery Status: Acute (2) PVD (peripheral vascular disease) Status: Chronic Plan Pt doing well POD 13 Plan Continue wound VAC therapy PT/OOB ad yessy VAC dressing to be changed tomorrow (WED) D/C planning to SNF with wound vac therapy d/w AISSATOU CAMARILLO [facility]/[employer] [phone] Discharge Planning D/C planning with right groin wound vac therapy to a SNF Toshia Trivedi Feb 22, 2017 12:57
[2017-02-22 16:00] VITALS: BP 132/65; PULSE 73; RESP 16; TEMP 97.4; O2SAT 95
[2017-02-22 20:00] VITALS: BP 117/65; PULSE 80; RESP 17; TEMP 97.5; O2SAT 95
[2017-02-22] MEDS: ATORVASTATIN 40 MG TAB PO SCH (20:44)
[2017-02-23] VITALS (7 sets, daily range): BP systolic 102–119; BP diastolic 63–71; PULSE 72–86; RESP 16–18; TEMP 96.2–98.3; O2SAT 93–97
[2017-02-23] MEDS: HYDROmorphone HCL 2 MG TAB PO PRN ×6 (00:55→20:52)
[2017-02-23] MEDS: ASPIRIN 81 MG CHEW TAB PO SCH (08:40)
[2017-02-23] MEDS: FAMOTIDINE 20 MG TAB PO SCH ×2 (08:40→20:31)
[2017-02-23] MEDS: DOCUSATE SODIUM 100 MG CAP PO SCH ×2 (08:40→20:31)
[2017-02-23] MEDS: ALBUTEROL SULFATE 90 MCG/ACT HFA 8 GM INHALER INH SCH ×2 (08:41→20:30)
[2017-02-23] MEDS: SODIUM CHLORIDE 0.9% FLUSH 10 ML FLUSH IV FLUSH SCH ×2 (08:41→20:30)
[2017-02-23] MEDS: REMOVE OLD PATCH T-DERMAL SCH (08:41)
[2017-02-23] MEDS: ENOXAPARIN SODIUM 30 MG/0.3 ML SYRINGE SQ SCH (08:41)
[2017-02-23] MEDS: BUDESONIDE-FORMOTEROL 160/4.5 MCG INHALER INH SCH ×2 (08:41→20:30)
[2017-02-23] MEDS: LISINOPRIL 10 MG TAB PO SCH (08:41)
--- NOTE | 2017-02-23 10:40 | PD.VS.PN ---
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 PSA repair with L FV Subjective/Hospital Course Afebrile 61/M Pt in bed doing well Pain controlled Objective Vitals/I&O Date Time Temp Pulse Resp B/P (MAP) Pulse Ox O2 Delivery O2 Flow Rate FiO2 02/23/17 08:00 97.3 77 16 102/71 (81) 95 02/23/17 04:00 96.2 72 17 116/69 (85) 97 02/23/17 00:00 96.8 77 17 112/69 (83) 95 02/22/17 20:00 97.5 80 17 117/65 (82) 95 02/22/17 20:00 80 02/22/17 16:00 97.4 73 16 132/65 (87) 95 02/22/17 12:00 97.7 88 17 112/72 (85) 95 02/23/17 02/23/17 02/23/17 07:00 15:00 23:00 Intake Total 240 ml Output Total 675 ml Balance -435 ml Exam: GENERAL: A&OX3,GCS15,NAD SKIN: Warm and dry left upper thigh incision intact w/o R/D/S/O erythematous patchy rash around periwound R groin incision w/ granulation tissue and white exudate in the center of right groin wound LE warm w/ motor intact Laboratory Date/Time Source Procedure Growth Status 02/08/17 13:15 Blood Peripheral Aerobic Blood Culture - Final NO GROWTH IN 5 DAYS Complete 02/08/17 13:15 Blood Peripheral Anaerobic Blood Culture - Final NO GROWTH IN 5 DAYS Complete 02/09/17 08:56 Wound Groin Fungal Smear - Final NO FUNGAL ELEMENTS SEEN. Resulted 02/09/17 08:56 Wound Groin Fungal Culture - Preliminary NO GROWTH IN 1 WEEK Resulted Assessment and Plan Assessment: (1) Pseudoaneurysm of right femoral artery Status: Acute (2) PVD (peripheral vascular disease) Status: Chronic Plan Pt doing well POD 14 Plan Continue wound VAC therapy PT/OOB ad yessy VAC dressing to be changed today (WED) D/C planning to SNF with wound vac therapy d/w AISSATOU CAMARILLO [facility]/[employer] [phone] Discharge Planning D/C planning with right groin wound vac therapy to a SNF Toshia Trivedi Feb 23, 2017 10:40
--- NOTE | 2017-02-23 16:21 | PD.WCN.NOT ---
Neg Pressure Wound Therapy Wound Description Wound bed appearance: Wound bed is noted with ~60% granulation tissue, ~20% red stringy muscle appearing tissue at base of wound bed, ~10% adipose tissue in wound bed, and 10 % yellow tissue @ ~7 o'clock. One suture is noted @12 o'clock in wound bed close to the surface and another suture noted in wound bed @ 6 o'clock at wound margins that are open. There is minimal clear yellow fluid noted in wound bed without odor. Periwound appearance: Other (Patient appears to have erythema related to irritation from drape ) Settings Suction: 125 mmHg, Continuous Intensity: Low Other Information: Bridged, Windowpaned, Mushroomed Foam type: Black (3 black granufoam pieces used in all ), White (1 piece white sterile moist foam used in base of wound measuring ~2.5cm x 0.5cm) Number of pieces: 2 Additonal Information Patient seen on for wound VAC change of R groin wound after being assessed by MARQUISE Trivedi and Dr Locke. Wound on the right groin had a moist to dry dressing in place that was removed for assessment. Wound was cleansed with NS and gauze. Wound bed is noted with ~60% granulation tissue, ~20% red stringy muscle appearing tissue, ~10% adipose tissue, ~10% yellow slough. One suture is noted @12 o'clock in wound bed close to the surface, one suture at wound margin at 6 o'clock. Wound has minimal yellow clear drainage with out odor. Wound margins are open. Periwound is noted with induration from 12 to 6 o'clock, also noted erythema related to irritation from drape. Cavilon was used to prep periwound, Benzoin tincture was used on irritation.Adaptic (oil emulsion gauze) was applied over sutures to protect.Window paned wound with Simplace VAC drape. 1 piece white foam cut and placed in base of wound bed over what appears to be muscle tissue. 1 piece black granufoam cut in a single strip was coiled into wound bed and bridged over window paned simplace drape to small dehisced wound at 6 o'clock. and secured with additional VAC drape. Bridged VAC granufoam over VAC drape and placed trac pad to R anterior thigh . All remaining exposed black granufoam covered with VAC drape to seal. Stoma paste applied to skin crevices to seal VAC dressing. Machine turned on with no leaks noted. Patient was asked to sit up in bed for further assessment of leaks. No leaks noted with new seated position. Next wound VAC change to be done on Tuesday02/25/17. Yisel Mcintosh [facility] Feb 23, 2017 16:21
[2017-02-23] MEDS: ATORVASTATIN 40 MG TAB PO SCH (20:31)
[2017-02-24] VITALS (7 sets, daily range): BP systolic 107–147; BP diastolic 60–73; PULSE 77–98; RESP 16–20; TEMP 96.1–97.9; O2SAT 93–96
[2017-02-24] MEDS: HYDROmorphone HCL 2 MG TAB PO PRN ×6 (00:49→22:12)
[2017-02-24] MEDS: REMOVE OLD PATCH T-DERMAL SCH ×2 (09:00→12:00)
[2017-02-24] MEDS: BUDESONIDE-FORMOTEROL 160/4.5 MCG INHALER INH SCH ×2 (09:00→21:00)
[2017-02-24] MEDS: ALBUTEROL SULFATE 90 MCG/ACT HFA 8 GM INHALER INH SCH ×2 (09:00→21:00)
[2017-02-24] MEDS: LISINOPRIL 10 MG TAB PO SCH (09:00)
[2017-02-24] MEDS: DOCUSATE SODIUM 100 MG CAP PO SCH ×2 (09:09→22:11)
[2017-02-24] MEDS: FAMOTIDINE 20 MG TAB PO SCH ×2 (09:09→22:12)
[2017-02-24] MEDS: ENOXAPARIN SODIUM 30 MG/0.3 ML SYRINGE SQ SCH (09:09)
[2017-02-24] MEDS: ASPIRIN 81 MG CHEW TAB PO SCH (09:10)
[2017-02-24] MEDS: SODIUM CHLORIDE 0.9% FLUSH 10 ML FLUSH IV FLUSH SCH ×2 (09:10→22:11)
[2017-02-24] MEDS ORDERED: WALKER GLIDE WH1 MI2 (11:13)
--- NOTE | 2017-02-24 11:30 | PD.VS.PN ---
Subjective POD #: 15 Procedure(s): R STATE TROOPER PSA repair with L FV Subjective/Hospital Course Afebrile 61/M Pt in bed doing well Wound vac to R groin intact Rash to right groin noted Pt requesting NicoDerm patch Pt c/o mild discomfort to R upper thigh Objective Vitals/I&O Date Time Temp Pulse Resp B/P (MAP) Pulse Ox O2 Delivery O2 Flow Rate FiO2 02/24/17 08:00 77 02/24/17 08:00 97.1 77 16 107/60 (76) 94 02/24/17 01:00 78 02/24/17 00:00 97.9 78 20 109/69 (82) 96 02/24/17 00:00 78 02/23/17 21:22 94 Nasal Cannula 2.00 02/23/17 20:00 98.3 80 18 119/66 (83) 97 02/23/17 20:00 80 02/23/17 16:00 98.2 86 17 106/66 (79) 94 02/23/17 12:00 97.1 79 17 103/63 (76) 93 02/24/17 02/24/17 02/24/17 07:00 15:00 23:00 Output Total 750 ml Balance -750 ml Exam: GENERAL: A&OX3,GCS15,NAD SKIN: Warm and dry left upper thigh incision intact w/o R/D/S/O Improved erythematous patchy rash around periwound LE warm w/ motor intact Laboratory Date/Time Source Procedure Growth Status 02/08/17 13:15 Blood Peripheral Aerobic Blood Culture - Final NO GROWTH IN 5 DAYS Complete 02/08/17 13:15 Blood Peripheral Anaerobic Blood Culture - Final NO GROWTH IN 5 DAYS Complete 02/09/17 08:56 Wound Groin Fungal Smear - Final NO FUNGAL ELEMENTS SEEN. Resulted 02/09/17 08:56 Wound Groin Fungal Culture - Preliminary NO GROWTH IN 2 WEEKS Resulted Assessment and Plan Assessment: (1) Pseudoaneurysm of right femoral artery Status: Acute (2) PVD (peripheral vascular disease) Status: Chronic Plan Pt doing well POD 15 Rash to R groin (tinea cruris)(fungal in appearance) Plan D/C Planning- Tomorrow to [facility]SNF Continue wound VAC therapy Continue PT/OOB ad [facility]ess[facility] [phone] Discharge Planning D/C tomorrow AM to [facility] with right groin wound vac therapy Toshia Trivedi Feb 24, 2017 11:03
[2017-02-24] MEDS ORDERED: PILL SPLITTER OTHER PRN (12:00)
[2017-02-24] MEDS: FLUCONAZOLE 100 MG TAB PO SCH (12:06)
[2017-02-24] MEDS: NICOTINE 14 MG/24 HR PATCH T-DERMAL SCH (12:06)
[2017-02-24] MEDS: ATORVASTATIN 40 MG TAB PO SCH (22:11)
[2017-02-25] VITALS: BP 111/67; PULSE 92; RESP 20; TEMP 99.7; O2SAT 93
[2017-02-25] MEDS: HYDROmorphone HCL 2 MG TAB PO PRN ×4 (01:10→14:38)
[2017-02-25 04:00] VITALS: BP 112/73; PULSE 74; RESP 20; TEMP 96.9; O2SAT 94
[2017-02-25] MEDS ORDERED: PERC5TAB12 PO (07:51)
[2017-02-25] MEDS ORDERED: ASPI81CH25 PO (07:51)
[2017-02-25 08:00] VITALS: BP 114/62; PULSE 75; RESP 18; TEMP 97.8; O2SAT 96
[2017-02-25] MEDS: NICOTINE 14 MG/24 HR PATCH T-DERMAL SCH (08:14)
[2017-02-25] MEDS: REMOVE OLD PATCH T-DERMAL SCH (08:14)
[2017-02-25] MEDS: FLUCONAZOLE 100 MG TAB PO SCH (08:15)
[2017-02-25] MEDS: ASPIRIN 81 MG CHEW TAB PO SCH (08:15)
[2017-02-25] MEDS: FAMOTIDINE 20 MG TAB PO SCH (08:15)
[2017-02-25] MEDS: ALBUTEROL SULFATE 90 MCG/ACT HFA 8 GM INHALER INH SCH (08:15)
[2017-02-25] MEDS: SODIUM CHLORIDE 0.9% FLUSH 10 ML FLUSH IV FLUSH SCH (08:15)
[2017-02-25] MEDS: BUDESONIDE-FORMOTEROL 160/4.5 MCG INHALER INH SCH (08:15)
[2017-02-25] MEDS: DOCUSATE SODIUM 100 MG CAP PO SCH (08:15)
[2017-02-25] MEDS: LISINOPRIL 10 MG TAB PO SCH (08:15)
--- NOTE | 2017-02-25 08:18 | PD.VS.DC ---
Discharge Summary Admission Date: Feb 08, 2017 at 15:23 Discharge Date: Feb 25, 2017 Admission Diagnosis: (1) Pseudoaneurysm of right femoral artery (2) PVD (peripheral vascular disease) Discharge Diagnosis: (1) Pseudoaneurysm of right femoral artery ICD Codes: I72.4 - Aneurysm of artery of lower extremity Status: Acute (2) PVD (peripheral vascular disease) ICD Codes: I73.9 - Peripheral vascular disease, unspecified Status: Chronic Brief History from admission 61 yo male with a history of a R groin reconstruction in July. He was doing well but then presented through the clinic with 3 days of RIGHT groin swelling and malaise. No LE ischemic symptoms. 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 RESPIRATORY: Breath sounds equal bilaterally. No accessory muscle use. GASTROINTESTINAL: Abdomen soft, non-tender, nondistended. MUSCULOSKELETAL: No cyanosis, or edema. R/L DP/PT with triphasic signals heard via Doppler LE warm w/ motor intact Hospital Course: 61 yo male with a history of a R groin reconstruction in July. He was doing well but then presented through the clinic with 3 days of RIGHT groin swelling and malaise. No LE ischemic symptoms. Pt S/P R RESPIRATORY SUPERVISOR PSA repair with L FV Pt doing well post operatively w/o complications Pt d/c to a SNF for r groin wound vac therapy ([facility])/daily PT for optimal healing Allergies Coded Allergies Type Severity Reaction Last Updated Verified codeine Adverse Reaction Severe N&V 02/03/17 No 02/23/17 02/23/17 02/24/17 02/24/17 02/25/17 02/25/17 06:00 18:00 06:00 18:00 06:00 18:00 Intake Total 240 ml 1800 ml 160 ml 0 ml Output Total 600 ml 825 ml 760 ml 1110 ml 1200 ml Balance -360 ml 975 ml -760 ml -950 ml -1200 ml Intake Oral 240 ml 1800 ml 160 ml IV Total 0 ml Output Urine Total 600 ml 750 ml 750 ml 1100 ml 1200 ml Drainage Total 75 ml 10 ml 10 ml 0 ml # Bowel Movements 0 0 Orders Procedure Category Date Status Time (Hub Use Only)Inp Phy CONS 02/22/17 Transmitted Cons/Ref Dressing, Vac Med SPD 02/23/17 Logged 08:35 Canister, Vac With Gel SPD 02/23/17 Logged 08:35 Dressing Soft-Foam SPD 02/23/17 Logged Vac White 10:36 Dressing, Vac Small SPD 02/23/17 Logged 10:36 Gauze, Xeroform 1x8 SPD 02/23/17 Logged 10:36 Dressing, Adaptic SPD 02/23/17 Logged 3x16 Ea 10:36 Nicotine 14 Mg MED 02/24/17 In Process Patch.24 Hr (Habitrol 12:00 Remove Old Patch MED 02/24/17 Logged 12:00 Fluconazole (Diflucan) MED 02/24/17 In Process 12:00 Pill Splitter (Pill MED 02/24/17 In Process Splitter) 12:00 Pants, Air-Ciro Large SPD 02/25/17 Logged BG 07:40 Attending Discharge DISCHARGE 02/25/17 Transmitted Order Vital Signs Date Time Temp Pulse Resp B/P (MAP) Pulse Ox O2 Delivery O2 Flow Rate FiO2 02/25/17 04:00 96.9 74 20 112/73 (86) 94 02/25/17 00:00 99.7 92 20 111/67 (82) 93 02/24/17 20:00 97.8 94 20 133/71 (91) 94 02/24/17 16:00 97.0 98 16 123/73 (90) 93 02/24/17 13:31 93 Nasal Cannula 2.00 02/24/17 12:00 96.1 97 17 147/71 (96) 93 02/24/17 08:00 77 02/24/17 08:00 97.1 77 16 107/60 (76) 94 02/24/17 01:00 78 02/24/17 00:00 97.9 78 20 109/69 (82) 96 02/24/17 00:00 78 02/23/17 21:22 94 Nasal Cannula 2.00 02/23/17 20:00 98.3 80 18 119/66 (83) 97 02/23/17 20:00 80 02/23/17 16:00 98.2 86 17 106/66 (79) 94 02/23/17 12:00 97.1 79 17 103/63 (76) 93 02/23/17 08:00 97.3 77 16 102/71 (81) 95 02/23/17 04:00 96.2 72 17 116/69 (85) 97 02/23/17 00:00 96.8 77 17 112/69 (83) 95 02/22/17 20:00 97.5 80 17 117/65 (82) 95 02/22/17 20:00 80 02/22/17 16:00 97.4 73 16 132/65 (87) 95 02/22/17 12:00 97.7 88 17 112/72 (85) 95 Discharge Condition: Good Discharge Disposition: Discharge to SNF Discharge Instructions: Continue wound vac therapy R Groin F/U in 2W at scheduled appointment time Call to report any new onset R/D/S/O Toshia CAMARILLO [facility]//[place] [phone] Any questions or concerns: Call [facility] at [facility] [phone] Toshia Trivedi Feb 25, 2017 08:18
[2017-02-25] MEDS: ENOXAPARIN SODIUM 30 MG/0.3 ML SYRINGE SQ SCH (10:15)
[2017-02-25 12:56] VITALS: O2SAT 96
== END 2017-02-25 16:06 | DRG 271 ==
LOC: NEPC 11:45 → NEDA 15:23 → HCIS 18:08 → HCVR 02-09 11:10 → HCIS 02-12 11:50 → N07A 02-17 17:56
PROVIDERS: ADMIT Surgery; ATTEND Surgery
PROC: 04BK0ZZ Excision of Right Femoral Artery, Open Approach (ICD-10-PCS; 2017-02-09)
PROC: 04PY0JZ Removal of Synthetic Substitute from Lower Artery, Open Approach (ICD-10-PCS; 2017-02-09)
PROC: 06BN0ZZ Excision of Left Femoral Vein, Open Approach (ICD-10-PCS; 2017-02-09)
PROC: 0Y9 Anatomical Regions, Lower Extremities, Drainage (ICD-10-PCS; 2017-02-09)
PROC: 041 Lower Arteries, Bypass (ICD-10-PCS; principal; 2017-02-09 07:41)
DX: I72.4 Aneurysm of artery of lower extremity (principal); L02.214 Cutaneous abscess of groin; J44.9 Chronic obstructive pulmonary disease, unspecified; E87.1 Hypo-osmolality and hyponatremia; D72.829 Elevated white blood cell count, unspecified; I10 Essential (primary) hypertension; B35.6 Tinea cruris; E78.5 Hyperlipidemia, unspecified; F10.20 Alcohol dependence, uncomplicated; G47.30 Sleep apnea, unspecified; I25.10 Atherosclerotic heart disease of native coronary artery without angina pectoris; I73.9 Peripheral vascular disease, unspecified; F12.90 Cannabis use, unspecified, uncomplicated; F17.210 Nicotine dependence, cigarettes, uncomplicated; Z59.0 Homelessness; Z86.14 Personal history of Methicillin resistant Staphylococcus aureus infection; Z88.5 Allergy status to narcotic agent
CPT/HCPCS: 73701; 76937; 80048; 80053; 80202; 83605; 85025; 85027; 85610; 85730; 86403; 86850; 86900; 86901; 86920; 87015; 87040; 87070; 87077; 87102; 87116; 87186; 87205; 87206; 93970; 94150; 94664; 96365; J0131; J1170; J1644; J1650; J2370; J2405; J2543; J2720; J3010; J3370; J3480; J7030; J7040; J7050; Q9967

== ENCOUNTER 2017-05-03 01:58 | Emergency (ER) | payer MEDICAID ==
[~2017-05-03] VITALS: Ht 175.3 cm; Wt 98.0 kg
[~2017-05-03 01:58] MED LIST changes: +ASPI81CH25 PO; +PERC5TAB12 PO; -ROBA500T PO; +WALKER GLIDE WH1 MI2
[2017-05-03 02:04] VITALS: BP 132/69; PULSE 97; RESP 20; TEMP 98.7; O2SAT 100
[2017-05-03] MEDS ORDERED: DICL75TA PO (03:32)
[2017-05-03] MEDS ORDERED: ROBA500T PO (03:32)
--- NOTE | 2017-05-03 03:38 | PD ---
HPI Chief Complaint: Pain: Acute or Chronic Time Seen by Provider: 02:50 Travel History International Travel<30 days: No Contact w/Intl Traveler<30days: No Traveled to known affect area: No History of Present Illness HPI 62-year-old white male homeless presents to the ER for evaluation of back pain. He states that he has chronic back pain and was seen by his pain management doctor in the last 2 weeks. He alleges that he is being set up for injections. He states that he is not taking any medications at this time. The pain is gotten worse. It's in his left lower back with radiation into his left leg. He denies any recent injury. No nausea vomiting. No urinary or stool incontinence. States the pain is moderately can be severe with movement. No alleviating factors. Patient states that he drank approximately 8 beers earlier. PFSH Past Medical History Hx Anticoagulant Therapy: No Arthritis: No Asthma: No Autoimmune Disease: No Heart Rhythm Problems: No Cancer: No Cardiovascular Problems: Yes (HTN) High Cholesterol: Yes Chemotherapy: No Chest Pain: No Congestive Heart Failure: No COPD: Yes Cerebrovascular Accident: No Diabetes: No Patient Takes Glucophage: No Diminished Hearing: No Endocrine: No Gastrointestinal Disorders: Yes GERD: No Genitourinary: No Headaches: Yes Hepatitis: No Hiatal Hernia: No Hypertension: Yes Immune Disorder: No Implanted Vascular Access Dvce: No Medical other: Yes (pancreatitis) Musculoskeletal: Yes Neurologic: Yes Psychiatric: No Reproductive: No Respiratory: Yes Immunizations Current: Yes Migraines: No Pancreatitis: Yes Radiation Therapy: No Seizures: No Sleep Apnea: Yes Thyroid Disease: No Ulcer: No Tetanus Vaccination: < 5 Years Influenza Vaccination: Yes Past Surgical History Abdominal Surgery: No AICD: No Arteriovenous Shunt: No Cardiac Surgery: No Ear Surgery: No Endocrine Surgery: No Eye Surgery: No Genitourinary Surgery: No Gynecologic Surgery: No Insulin Pump: No Joint Replacement: No Oral Surgery: Yes (tonsillectomy) Pacemaker: No Thoracic Surgery: No Tonsillectomy: Yes Other Surgery: Yes (right groin vascular occlusion) Social History Alcohol Use: Yes (10-12 beer daily) Tobacco Use: Yes (2 pack per day) Substance Use: Yes (marijuana) Allergies-Medications (Allergen,Severity, Reaction): Coded Allergies: codeine (Unverified Adverse Reaction, Severe, N&V, 05/03/17) Reported Meds & Prescriptions Reported Meds & Active Scripts Active Robaxin (Methocarbamol) 500 Mg Tab 1,000 Mg PO TID [address] (Diclofenac Sodium) 75 Mg Tabdr 75 Mg PO BID Reported Advair Diskus Inh (Fluticasone-Salmeterol Inh) 250-50 Mcg/Blist Aer 2 Puff INH BID Rinse mouth after use. Proair Hfa 8.5 GM Inh (Albuterol Sulfate) 90 Mcg/Act Aer 90 Mcg INH BID Lovastatin 40 Mg Tab 40 Mg PO DAILY Lisinopril 10 Mg Tab 10 Mg PO DAILY Review of Systems General / Constitutional: No: Fever Eyes: No: Visual changes HENT: No: Headaches Cardiovascular: No: Chest Pain or Discomfort Respiratory: No: Shortness of Breath Gastrointestinal: No: Abdominal Pain Genitourinary: No: Dysuria Musculoskeletal: Positive: Arthralgias, Limited ROM, Cramping, Pain Skin: No Rash Neurologic: No: Weakness Psychiatric: No: Depression Endocrine: No: Polydipsia Hematologic/Lymphatic: No: Easy Bruising Physical Exam Narrative GENERAL: Well-nourished, well-developed patient. SKIN: Focused skin assessment warm/dry. HEAD: Normocephalic. EYES: No scleral icterus. No injection or drainage. NECK: Supple, trachea midline. No JVD or lymphadenopathy. CARDIOVASCULAR: Regular rate and rhythm without murmurs, gallops, or rubs. RESPIRATORY: Breath sounds equal bilaterally. No accessory muscle use. GASTROINTESTINAL: Abdomen soft, non-tender, nondistended. MUSCULOSKELETAL: No cyanosis, or edema. BACK: No central bony tenderness, without obvious deformity. No CVA tenderness. Patient complains of left paralumbar tenderness and the left buttocks. No saddle anesthesia. Mild spasm. Data Data Last Documented VS Vital Signs Date Time Temp Pulse Resp B/P (MAP) Pulse Ox O2 Delivery O2 Flow Rate FiO2 05/03/17 02:04 98.7 97 20 132/69 (90) 100 Orders Orders Ed Discharge Order (05/03/17 03:32) Naproxen (Naprosyn) (05/03/17 03:45) Cyclobenzaprine (Flexeril) (05/03/17 03:45) Acetamin-Hydrocod 325-5 Mg ([place]ward 5-325 (05/03/17 03:45) MDM Medical Decision Making Medical Screen Exam Complete: Yes Emergency Medical Condition: Yes Medical Record Reviewed: Yes Differential Diagnosis MDM: High Differential diagnoses: Fracture, sprain, strain, HNP, nerve or vascular injury , epidural abscess, pilonidal cyst Narrative Course Patient is given Naprosyn 500, flexion 10 mg and Lortab 5 mg by mouth. This is acute exacerbation of chronic back pain with left sciatica Diagnosis Primary Impression: acute exacerbation of chronic back pain with left sciatica Patient Instructions: Narcotic given in the ED, General Instructions Additional Instructions: Rest. Ice for the next 3 days followed by heat . Flexeril and Voltaren. Follow-up with a primary care doctor in one week. Return to the ER for emergencies. Med/Other Pt SpecificInfo: Prescription(s) given Scripts Methocarbamol (Robaxin) 500 Mg Tab 1000 MG PO TID for Muscle Spasm for 7 Days, TAB 0 Refills Prov: Tabitha Solano MD 05/03/[address] (Diclofenac Sodium DR) 75 Mg Tabdr 75 MG PO BID, #20 TAB 0 Refills Prov: Tabitha Solano MD 05/03/17 Disposition: 01 DISCHARGE HOME Condition: Stable [place] May 03, 2017 03:38
[2017-05-03] MEDS ORDERED: CYCLOBENZAPRINE HCL 10 MG TAB PO ONE (03:45)
[2017-05-03] MEDS ORDERED: ACETAMINOPHEN/HYDROcodone 325 MG/5 MG TAB PO ONE (03:45)
[2017-05-03] MEDS ORDERED: NAPROXEN 500 MG TAB PO ONE (03:45)
== END 2017-05-03 03:31 | disposition home or self-care (01) ==
LOC: NEPD 01:58
DX: M54.32 Sciatica, left side (principal); I10 Essential (primary) hypertension; E78.00 Pure hypercholesterolemia, unspecified; J44.9 Chronic obstructive pulmonary disease, unspecified; F17.200 Nicotine dependence, unspecified, uncomplicated; Z87.19 Personal history of other diseases of the digestive system; Z59.0 Homelessness; Z88.5 Allergy status to narcotic agent; Z79.899 Other long term (current) drug therapy
CPT/HCPCS: 99284

== ENCOUNTER 2017-08-06 18:54 | Emergency (ER) | payer MEDICAID ==
[~2017-08-06] VITALS: Ht 175.3 cm; Wt 79.5 kg
[~2017-08-06 18:54] MED LIST changes: -ASPI81CH25 PO; +DICL75TA PO; -PERC5TAB12 PO; +ROBA500T PO; -WALKER GLIDE WH1 MI2
[2017-08-06 19:01] VITALS: BP 117/69; PULSE 94; RESP 16; TEMP 98.5; O2SAT 96
[2017-08-06] MEDS ORDERED: ADVA250A INH (19:09)
[2017-08-06] MEDS ORDERED: BACL10TA PO (19:37)
[2017-08-06] MEDS ORDERED: DICL75TA PO (19:37)
[2017-08-06] MEDS ORDERED: ORPHENADRINE INJ 60 MG/2 ML AMP IM ONE (19:45)
[2017-08-06] MEDS ORDERED: KETOROLAC TROMETHAMINE 60 MG/2 ML (IM) VIAL IM ONE (19:45)
--- NOTE | 2017-08-06 20:04 | PD ---
HPI Chief Complaint: Pain: Acute or Chronic Time Seen by Provider: 19:30 Travel History International Travel<30 days: No Contact w/Intl Traveler<30days: No Traveled to known affect area: No History of Present Illness HPI 62-year-old male presents for evaluation of left lower back and buttocks pain. This is chronic, ongoing for 3 years. He typically sees a baker paint and receives steroid injections on a monthly basis. He has not seen his baker paint in a month because of insurance issues. He now presents with pain. He did not use any medication for symptom relief. Pain is a sharp pain which is worse when walking. He denies any acute injury. He denies any abdominal pain, bowel bladder incontinence, saddle anesthesia. He has no other complaints. PFSH Past Medical History Hx Anticoagulant Therapy: No Arthritis: No Asthma: No Autoimmune Disease: No Heart Rhythm Problems: No Cancer: No Cardiovascular Problems: Yes (HTN) High Cholesterol: Yes Chemotherapy: No Chest Pain: No Congestive Heart Failure: No COPD: Yes Cerebrovascular Accident: No Diabetes: No Diminished Hearing: No Endocrine: No Gastrointestinal Disorders: Yes GERD: No Genitourinary: No Headaches: Yes Hepatitis: No Hiatal Hernia: No Hypertension: Yes Immune Disorder: No Implanted Vascular Access Dvce: No Medical other: Yes (pancreatitis) Musculoskeletal: Yes Neurologic: Yes Psychiatric: No Reproductive: No Respiratory: Yes Immunizations Current: Yes Migraines: No Pancreatitis: Yes Radiation Therapy: No Seizures: No Sleep Apnea: Yes Thyroid Disease: No Ulcer: No Past Surgical History Abdominal Surgery: No AICD: No Arteriovenous Shunt: No Cardiac Surgery: No Ear Surgery: No Endocrine Surgery: No Eye Surgery: No Genitourinary Surgery: No Gynecologic Surgery: No Insulin Pump: No Joint Replacement: No Oral Surgery: Yes (tonsillectomy) Pacemaker: No Thoracic Surgery: No Tonsillectomy: Yes Other Surgery: Yes (right groin vascular occlusion) Social History Alcohol Use: Yes (10-12 beer daily) Tobacco Use: Yes (2 pack per day) Substance Use: Yes (marijuana) Allergies-Medications (Allergen,Severity, Reaction): Coded Allergies: codeine (Unverified Adverse Reaction, Severe, N&V, 08/06/17) Reported Meds & Prescriptions Reported Meds & Active Scripts Active Baclofen 10 Mg Tab 10 Mg PO Q8HR [address] (Diclofenac Sodium) 75 Mg Tabdr 75 Mg PO BID 10 Days Reported Advair Diskus Inh (Fluticasone-Salmeterol Inh) 250-50 Mcg/Blist Aer 1 Puff INH BID Rinse mouth after use. Proair Hfa 8.5 GM Inh (Albuterol Sulfate) 90 Mcg/Act Aer 90 Mcg INH BID Lovastatin 40 Mg Tab 40 Mg PO DAILY Lisinopril 10 Mg Tab 10 Mg PO DAILY Review of Systems Except as stated in HPI: all other systems reviewed are Neg Physical Exam Narrative GENERAL: Well-developed well-nourished male no acute distress SKIN: Warm and dry. HEAD: Atraumatic. Normocephalic. EYES: Pupils equal and round. No scleral icterus. No injection or drainage. ENT: No nasal bleeding or discharge. Mucous membranes pink and moist. NECK: Trachea midline. No JVD. CARDIOVASCULAR: Regular rate and rhythm. No murmur appreciated. RESPIRATORY: No accessory muscle use. Clear to auscultation. Breath sounds equal bilaterally. GASTROINTESTINAL: Abdomen soft, non-tender, nondistended. Hepatic and splenic margins not palpable. MUSCULOSKELETAL: No obvious deformities. No clubbing. No cyanosis. No edema. No reproducible tenderness to palpation to the back, buttocks, hips. Ambulatory. 5 out of 5 muscle strength in lower extremities. NEUROLOGICAL: Awake and alert. No obvious cranial nerve deficits. Motor grossly within normal limits. Normal speech. Data Data Last Documented VS Vital Signs Date Time Temp Pulse Resp B/P (MAP) Pulse Ox O2 Delivery O2 Flow Rate FiO2 08/06/17 19:05 95 16 08/06/17 19:01 98.5 117/69 (85) 96 Orders Orders Ketorolac Inj (Toradol Inj) (08/06/17 19:45) Orphenadrine Inj (Norflex Inj) (08/06/17 19:45) Ed Discharge Order (08/06/17 19:36) [facility] Medical Decision Making Medical Screen Exam Complete: Yes Emergency Medical Condition: Yes Medical Record Reviewed: Yes Differential Diagnosis Chronic pain, myositis, muscle spasm, muscle strain, herniated nucleus pulposus Narrative Course The patient will be given Toradol and Norflex injections here and discharged with baclofen and diclofenac, recommended follow-up with primary care physician and baker paint. Diagnosis Primary Impression: Chronic pain Additional Instructions: Follow-up with your baker paint and primary care physician. Return for any emergent medical conditions. Med/Other Pt SpecificInfo: Prescription(s) given Scripts Baclofen (Baclofen) 10 Mg Tab 10 MG PO Q8HR for 10 Days, TAB 0 Refills Prov: Fermín Burks MD 08/06/[address] (Diclofenac Sodium DR) 75 Mg Tabdr 75 MG PO BID for 10 Days, #20 TAB 0 Refills Prov: Fermín Burks MD 08/06/17 Disposition: 01 DISCHARGE HOME Condition: Stable Grant Arvizu Aug 06, 2017 20:04
== END 2017-08-06 20:39 | disposition home or self-care (01) ==
LOC: NEPD 18:54
DX: G89.29 Other chronic pain (principal); I10 Essential (primary) hypertension; J44.9 Chronic obstructive pulmonary disease, unspecified; F17.200 Nicotine dependence, unspecified, uncomplicated; F12.90 Cannabis use, unspecified, uncomplicated
CPT/HCPCS: 96372; 99283; J1885; J2360

== ENCOUNTER 2017-08-24 13:15 | Emergency (ER) | payer MEDICAID ==
[~2017-08-24] VITALS: Ht 175.3 cm; Wt 80.0 kg
[~2017-08-24 13:15] MED LIST changes: +BACL10TA PO; -ROBA500T PO
[2017-08-24 13:20] VITALS: BP 147/89; PULSE 98; RESP 20; O2SAT 97
[2017-08-24 13:29] VITALS: O2SAT 97
[2017-08-24] MEDS ORDERED: SODIUM CHLORIDE 0.9% FLUSH 10 ML FLUSH IVF PRN (13:30)
[2017-08-24] MEDS ORDERED: MECLIZINE HCL 25 MG TAB PO ONE (13:30)
--- NOTE | 2017-08-24 13:36 | PD ---
HPI Chief Complaint: Dizziness Time Seen by Provider: 13:24 Travel History International Travel<30 days: No Contact w/Intl Traveler<30days: No Traveled to known affect area: No History of Present Illness HPI This is a 62-year-old male with history of COPD, tobacco use, pancreatitis, hypertension, hyperlipidemia who presents via EMS for evaluation of dizziness. Symptoms started 1 hour ago after eating a tuna sandwich. He reports a lightheadedness as well as a vertigo/room spinning sensation which is constant, aggravated by movement. He endorses associated nausea as well as a mild frontal headache. Denies blurred vision, weakness in extremities, slurred speech, facial droop, chest pain, shortness of breath, diarrhea, constipation, abdominal pain. He denies any recent illness. He denies tinnitus. He has no other complaints at this time. PFSH Past Medical History Hx Anticoagulant Therapy: No Arthritis: No Asthma: No Autoimmune Disease: No Heart Rhythm Problems: No Cancer: No Cardiovascular Problems: Yes (HTN) High Cholesterol: Yes Chemotherapy: No Chest Pain: No Congestive Heart Failure: No COPD: Yes Cerebrovascular Accident: No Diabetes: No Diminished Hearing: No Endocrine: No Gastrointestinal Disorders: Yes GERD: No Genitourinary: No Headaches: Yes Hepatitis: No Hiatal Hernia: No Hypertension: Yes Immune Disorder: No Implanted Vascular Access Dvce: No Musculoskeletal: Yes Neurologic: Yes Psychiatric: No Reproductive: No Respiratory: Yes Immunizations Current: Yes Migraines: No Pancreatitis: Yes Radiation Therapy: No Seizures: No Sleep Apnea: Yes Thyroid Disease: No Ulcer: No Tetanus Vaccination: < 5 Years Influenza Vaccination: No Past Surgical History Abdominal Surgery: No AICD: No Arteriovenous Shunt: No Cardiac Surgery: No Ear Surgery: No Endocrine Surgery: No Eye Surgery: No Genitourinary Surgery: No Gynecologic Surgery: No Insulin Pump: No Joint Replacement: No Oral Surgery: Yes (tonsillectomy) Pacemaker: No Thoracic Surgery: No Tonsillectomy: Yes Other Surgery: Yes (right groin vascular occlusion) Social History Alcohol Use: Yes (10-12 beer daily) Tobacco Use: Yes (2 pack per day) Substance Use: Yes (marijuana) Allergies-Medications (Allergen,Severity, Reaction): Coded Allergies: codeine (Unverified Adverse Reaction, Severe, N&V, 08/24/17) Reported Meds & Prescriptions Reported Meds & Active Scripts Active Phenergan (Promethazine HCl) 25 Mg Tablet 25 Mg PO Q6H PRN Meclizine (Meclizine HCl) 25 Mg Tab 25 Mg PO TID PRN Baclofen 10 Mg Tab 10 Mg PO Q8HR [address] (Diclofenac Sodium) 75 Mg Tabdr 75 Mg PO BID 10 Days Reported Advair Diskus Inh (Fluticasone-Salmeterol Inh) 250-50 Mcg/Blist Aer 1 Puff INH BID Rinse mouth after use. Proair Hfa 8.5 GM Inh (Albuterol Sulfate) 90 Mcg/Act Aer 90 Mcg INH BID Lovastatin 40 Mg Tab 40 Mg PO DAILY Lisinopril 10 Mg Tab 10 Mg PO DAILY Review of Systems Except as stated in HPI: all other systems reviewed are Neg Physical Exam Narrative GENERAL: Well-developed well-nourished male in no acute distress SKIN: Warm and dry. HEAD: Atraumatic. Normocephalic. EYES: Pupils equal and round reactive to light extraocular muscles are intact. Some rotary nystagmus is noted bilaterally. ENT: No nasal bleeding or discharge. Mucous membranes pink and moist. NECK: Trachea midline. No JVD. CARDIOVASCULAR: Regular rate and rhythm. No murmur appreciated. RESPIRATORY: No accessory muscle use. Clear to auscultation. Breath sounds equal bilaterally. GASTROINTESTINAL: Abdomen soft, non-tender, nondistended. Hepatic and splenic margins not palpable. MUSCULOSKELETAL: No obvious deformities. No clubbing. No cyanosis. No edema. NEUROLOGICAL: Awake and alert. No obvious cranial nerve deficits. Motor grossly within normal limits. Normal speech. No dysarthria. Normal heel to hagan. Slight difficulty with finger to nose bilaterally. PSYCHIATRIC: Appropriate mood and affect; insight and judgment normal. Data Data Last Documented VS Vital Signs Date Time Temp Pulse Resp B/P (MAP) Pulse Ox O2 Delivery O2 Flow Rate FiO2 08/24/17 17:05 101 17 140/77 (98) 98 Room Air Orders Orders Electrocardiogram (08/24/17 13:24) Complete Blood Count With Diff (08/24/17 13:24) Comprehensive Metabolic Panel (08/24/17 13:24) Magnesium (Mg) (08/24/17 13:24) Ckmb (Isoenzyme) Profile (08/24/17 13:24) Troponin I (08/24/17 13:24) Ct Brain W/O Iv Contrast(Rout) (08/24/17 13:24) Blood Glucose (08/24/17 13:24) Ecg Monitoring (08/24/17 13:24) Iv Access Insert/Monitor (08/24/17 13:24) Oximetry (08/24/17 13:24) Meclizine (Antivert) (08/24/17 13:30) Sodium Chloride 0.9% Flush (Ns Flush) (08/24/17 13:30) Mri Brain W/O Contrast (08/24/17 ) Lorazepam Inj (Ativan Inj) (08/24/17 13:45) Ed Discharge Order (08/24/17 17:56) Labs Laboratory Tests Test 08/24/17 13:30 White Blood Count 7.7 TH/MM3 Red Blood Count 3.37 MIL/MM3 Hemoglobin 11.5 GM/DL Hematocrit 33.4 % Mean Corpuscular Volume 99.2 FL Mean Corpuscular Hemoglobin 34.0 PG Mean Corpuscular Hemoglobin Concent 34.3 % Red Cell Distribution Width 16.0 % Platelet Count 221 TH/MM3 Mean Platelet Volume 8.6 FL Neutrophils (%) (Auto) 70.6 % Lymphocytes (%) (Auto) 23.3 % Monocytes (%) (Auto) 5.0 % Eosinophils (%) (Auto) 0.8 % Basophils (%) (Auto) 0.3 % Neutrophils # (Auto) 5.4 TH/MM3 Lymphocytes # (Auto) 1.8 TH/MM3 Monocytes # (Auto) 0.4 TH/MM3 Eosinophils # (Auto) 0.1 TH/MM3 Basophils # (Auto) 0.0 TH/MM3 CBC Comment AUTO DIFF Differential Total Cells Counted 100 Neutrophils % (Manual) 72 % Band Neutrophils % 1 % Lymphocytes % 21 % Monocytes % 4 % Eosinophils % 1 % Neutrophils # (Manual) 5.7 TH/MM3 Myelocytes 1 % Differential Comment FINAL DIFF MANUAL Platelet Estimate NORMAL Platelet Morphology Comment NORMAL Red Cell Morphology Comment NORMAL Blood Urea Nitrogen 7 MG/DL Creatinine 0.73 MG/DL Random Glucose 143 MG/DL Total Protein 7.2 GM/DL Albumin 3.0 GM/DL Calcium Level 8.0 MG/DL Magnesium Level 1.8 MG/DL Alkaline Phosphatase 86 U/L Aspartate Amino Transf (AST/SGOT) 23 U/L Alanine Aminotransferase (ALT/SGPT) 22 U/L Total Bilirubin 0.2 MG/DL Sodium Level 139 MEQ/L Potassium Level 3.5 MEQ/L Chloride Level 106 MEQ/L Carbon Dioxide Level 23.2 MEQ/L Anion Gap 10 MEQ/L Estimat Glomerular Filtration Rate 109 ML/MIN Total Creatine Kinase 53 U/L Troponin I LESS THAN 0.02 NG/ML MDM Medical Decision Making Medical Screen Exam Complete: Yes Emergency Medical Condition: Yes Medical Record Reviewed: Yes Differential Diagnosis Central vertigo, CVA, electrolyte abnormality, BPPV, labyrinthitis, Mnire's Narrative Course The patient was placed on ECG monitoring pulse oximetry. 12-lead EKG was obtained. The patient was given IV fluids, meclizine, Zofran. Lab work, CT, MRI of the brain been ordered. CBC reveals hemoglobin 11.5 otherwise unremarkable, CMP reveals a calcium of 8, otherwise unremarkable, cardiac enzymes are negative, CT the brain reveals no acute findings, right sided paranasal sinus disease, MRI of the brain reveals moderate severity central and cortical atrophy. No acute findings. Right- sided pansinus disease. The patient feels improved upon reexamination. he was able to ambulate with no assistance. The patient will be discharged with prescriptions for Phenergan and meclizine. Diagnosis Primary Impression: Vertigo Additional Instructions: Medication as needed. Follow-up close with primary care physician, neurology if symptoms persist. Return for any emergent medical conditions. Med/Other Pt SpecificInfo: Prescription(s) given Scripts Promethazine (Phenergan) 25 Mg Tablet 25 MG PO Q6H Y for NAUSEA OR VOMITING, #20 TAB 0 Refills Prov: Francisco Chen MD 08/24/17 Meclizine (Meclizine) 25 Mg Tab 25 MG PO TID Y for VERTIGO, #20 TAB 0 Refills Prov: Francisco Chen MD 08/24/17 Disposition: 01 DISCHARGE HOME Condition: Stable Grant Arvizu Aug 24, 2017 13:36
[2017-08-24 13:41] LABS: AUTOMATED NEUTROPHIL # 5.4 TH/MM3 (1.8-7.7); BASOPHIL % 0.3 % (0.0-2.0); EOSINOPHIL # 0.1 TH/MM3 (0-0.4); EOSINOPHIL % 0.8 % (0.0-4.0); HEMATOCRIT 33.4 % (39.0-51.0); HEMOGLOBIN 11.5 GM/DL (13.0-17.0); LYMPH % 23.3 % (9.0-44.0); LYMPHOCYTE # 1.8 TH/MM3 (1.0-4.8); MEAN CELL VOLUME 99.2 FL (80.0-100.0); MEAN CORPUSCULAR HGB CONC 34.3 % (32.0-36.0); MEAN PLATELET VOLUME 8.6 FL (7.0-11.0); MONOCYTE # 0.4 TH/MM3 (0-0.9); NEUT % 70.6 % (16.0-70.0); PLATELET COUNT 221 TH/MM3 (150-450); RED BLOOD COUNT 3.37 MIL/MM3 (4.50-5.90); WHITE BLOOD COUNT 7.7 TH/MM3 (4.0-11.0)
[2017-08-24] MEDS ORDERED: LORazepam 2 MG/ML VIAL IV PUSH ONE (13:45)
[2017-08-24 13:55] LABS: ALT (GPT) 22 U/L (12-78); AST (GOT) 23 U/L (15-37); BICARBONATE 23.2 MEQ/L (21.0-32.0); BLOOD UREA NITROGEN 7 MG/DL (7-18); CHLORIDE 106 MEQ/L (98-107); CREATININE 0.73 MG/DL (0.60-1.30); GLOMERULAR FILTRATION RATE 109 ML/MIN (>89); GLUCOSE,RANDOM 143 MG/DL (74-106); MAGNESIUM 1.8 MG/DL (1.5-2.5); SODIUM (NA) 139 MEQ/L (136-145)
[2017-08-24 13:59] LABS: ALKALINE PHOSPHATASE 86 U/L (45-117); TOTAL BILIRUBIN ADULT 0.2 MG/DL (0.2-1.0); TOTAL PROTEIN 7.2 GM/DL (6.4-8.2); TROPONIN I LESS THAN 0.02 NG/ML (0.02-0.05)
[2017-08-24 14:12] LABS: BANDS 1 % (0-6); LYMPHOCYTES 21 % (9-44); MONOCYTES 4 % (0-8); MYELOCYTES 1 % (0-0); NEUTROPHIL # MANUAL DIFF 5.7 TH/MM3 (1.8-7.7); POLYS (SEG NEUTROPHILS) 72 % (16-70)
--- NOTE | 2017-08-24 14:17 | RADRPT ---
EXAM DATE/TIME: 08/24/2017 13:54 [facility] COMPARISON: CT BRAIN W/O CONTRAST, July 24, 2016, 20:23. INDICATIONS : Dizziness. RADIATION DOSE: 56.35 CTDIvol (mGy) MEDICAL HISTORY : Hypertension. Chronic obstructive pulmonary disease. SURGICAL HISTORY : None. ENCOUNTER: Initial ACUITY: 1 day PAIN SCALE: 0/10 LOCATION: cranial TECHNIQUE: Multiple contiguous axial images were obtained of the head. Using automated exposure control and adj ustment of the mA and/or kV according to patient size, radiation dose was kept as low as reasonably a chievable to obtain optimal diagnostic quality images. DICOM format image data is available electro nically for review and comparison. FINDINGS: CEREBRUM: The ventricles are normal for age. No evidence of midline shift, mass lesion, hemorrhage or acute in farction. No extra-axial fluid collections are seen. POSTERIOR FOSSA: The cerebellum and brainstem are intact. The 4th ventricle is midline. The cerebellopontine angle i s unremarkable. EXTRACRANIAL: Opacified right maxillary sinus and multiple right ethmoid air cells. Mild mucosal thickening in the right frontal sinus. The visualized portion of the orbits is intact. SKULL: The calvaria is intact. No evidence of skull fracture. CONCLUSION: 1. No acute findings in the brain. 2. Right sided paranasal sinus disease. Minor Rosenthal MD on August 24, 2017 at 14:13 Board Certified Radiologist. This report was verified electronically.
[2017-08-24 16:13] VITALS: BP 141/87; PULSE 106; RESP 19; O2SAT 98
--- NOTE | 2017-08-24 16:51 | RADRPT ---
EXAM DATE/TIME: 08/24/2017 15:53 [facility] COMPARISON: No previous studies available for comparison. INDICATIONS : Dizziness. CVA. MEDICAL HISTORY : Chronic obstructive pulmonary disease. Hypertension. SURGICAL HISTORY : Tonsillectomy. Peripheral arterial bypass. Left hand. ENCOUNTER: Subsequent ACUITY: 1 day PAIN SCORE: 0/10 LOCATION: head. TECHNIQUE: Multiplanar, multisequence MRI of the brain was performed without contrast. FINDINGS: CEREBRUM: The ventricles, sulci, and basal cisterns are prominent, characteristic of moderate severity central and cortical atrophy.. No evidence of midline shift, mass lesion, hemorrhage or acute infarction. N o extraaxial fluid collections are seen. The pituitary gland and suprasellar cistern are normal in c onfiguration. WHITE MATTER: No significant signal abnormalities are seen in the white matter. POSTERIOR FOSSA: The cerebellum and brainstem are intact. The 4th ventricle is midline. The cerebellopontine angle is unremarkable. The cerebellar tonsils are normal in position. DIFFUSION IMAGING: No focal areas of restricted diffusion are seen. No evidence of acute infarction. EXTRACRANIAL: Opacified right maxillary, ethmoid, and frontal sinuses. CONCLUSION: 1. Moderate severity central and cortical atrophy. 2. No acute findings in the brain. 3. Right sided pansinus disease. Minor Rosenthal MD on August 24, 2017 at 16:47 Board Certified Radiologist. This report was verified electronically.
[2017-08-24 17:05] VITALS: BP 140/77; PULSE 101; RESP 17; O2SAT 98
--- NOTE | 2017-08-24 17:22 | PD ---
Data Data Last Documented VS Vital Signs Date Time Temp Pulse Resp B/P (MAP) Pulse Ox O2 Delivery O2 Flow Rate FiO2 08/24/17 17:05 101 17 140/77 (98) 98 Room Air Orders Orders Electrocardiogram (08/24/17 13:24) Complete Blood Count With Diff (08/24/17 13:24) Comprehensive Metabolic Panel (08/24/17 13:24) Magnesium (Mg) (08/24/17 13:24) Ckmb (Isoenzyme) Profile (08/24/17 13:24) Troponin I (08/24/17 13:24) Ct Brain W/O Iv Contrast(Rout) (08/24/17 13:24) Blood Glucose (08/24/17 13:24) Ecg Monitoring (08/24/17 13:24) Iv Access Insert/Monitor (08/24/17 13:24) Oximetry (08/24/17 13:24) Meclizine (Antivert) (08/24/17 13:30) Sodium Chloride 0.9% Flush (Ns Flush) (08/24/17 13:30) Mri Brain W/O Contrast (08/24/17 ) Lorazepam Inj (Ativan Inj) (08/24/17 13:45) Labs Laboratory Tests Test 08/24/17 13:30 White Blood Count 7.7 TH/MM3 Red Blood Count 3.37 MIL/MM3 Hemoglobin 11.5 GM/DL Hematocrit 33.4 % Mean Corpuscular Volume 99.2 FL Mean Corpuscular Hemoglobin 34.0 PG Mean Corpuscular Hemoglobin Concent 34.3 % Red Cell Distribution Width 16.0 % Platelet Count 221 TH/MM3 Mean Platelet Volume 8.6 FL Neutrophils (%) (Auto) 70.6 % Lymphocytes (%) (Auto) 23.3 % Monocytes (%) (Auto) 5.0 % Eosinophils (%) (Auto) 0.8 % Basophils (%) (Auto) 0.3 % Neutrophils # (Auto) 5.4 TH/MM3 Lymphocytes # (Auto) 1.8 TH/MM3 Monocytes # (Auto) 0.4 TH/MM3 Eosinophils # (Auto) 0.1 TH/MM3 Basophils # (Auto) 0.0 TH/MM3 CBC Comment AUTO DIFF Differential Total Cells Counted 100 Neutrophils % (Manual) 72 % Band Neutrophils % 1 % Lymphocytes % 21 % Monocytes % 4 % Eosinophils % 1 % Neutrophils # (Manual) 5.7 TH/MM3 Myelocytes 1 % Differential Comment FINAL DIFF MANUAL Platelet Estimate NORMAL Platelet Morphology Comment NORMAL Red Cell Morphology Comment NORMAL Blood Urea Nitrogen 7 MG/DL Creatinine 0.73 MG/DL Random Glucose 143 MG/DL Total Protein 7.2 GM/DL Albumin 3.0 GM/DL Calcium Level 8.0 MG/DL Magnesium Level 1.8 MG/DL Alkaline Phosphatase 86 U/L Aspartate Amino Transf (AST/SGOT) 23 U/L Alanine Aminotransferase (ALT/SGPT) 22 U/L Total Bilirubin 0.2 MG/DL Sodium Level 139 MEQ/L Potassium Level 3.5 MEQ/L Chloride Level 106 MEQ/L Carbon Dioxide Level 23.2 MEQ/L Anion Gap 10 MEQ/L Estimat Glomerular Filtration Rate 109 ML/MIN Total Creatine Kinase 53 U/L Troponin I LESS THAN 0.02 NG/ML MDM Supervised Visit with CAITLIN: Yes Narrative Course I, Dr. Chen, have reviewed the advance practice practitioner's documentation and am in agreement, met with the patient face to face, made the diagnosis, and the medical decision making was done by me. *My assessment and Findings: This patient had dizziness and vertigo with some nystagmus. I had concern for cerebellar stroke so he underwent MRI which shows no evidence of acute stroke. Lab studies are essentially normal including CBC and metabolic profiles. I reassessed the patient and he feels improved. We will ambulate him but essentially planning discharge at this point. He had some vertigo without evidence of stroke or intracranial hemorrhage. Francisco Chen MD Aug 24, 2017 17:22
[2017-08-24] MEDS ORDERED: MECL-62 PO (17:52)
[2017-08-24] MEDS ORDERED: PROM25TA10 PO (17:52)
--- NOTE | 2017-08-25 13:53 | EKG ---
Date Performed: 08/24/2017 Time Performed: 13:26:18 PTAGE: 62 years EKG: SINUS TACHYCARDIA MODERATE ST DEPRESSION ABNORMAL ECG INTERPRETATION BASED ON A DEFAULT AGE OF 40 YEARS Since the PREVIOUS TRACING , no significant change noted PREVIOUS TRACIN11/07/2016 10.03 DOCTOR: Karmen Mederos Interpretating Date/Time 08/25/2017 13:52:47
== END 2017-08-24 18:05 | disposition home or self-care (01) ==
LOC: NEPC 13:15
DX: R42 Dizziness and giddiness (principal); R00.0 Tachycardia, unspecified; E78.00 Pure hypercholesterolemia, unspecified; I10 Essential (primary) hypertension; J44.9 Chronic obstructive pulmonary disease, unspecified; F12.90 Cannabis use, unspecified, uncomplicated; F17.200 Nicotine dependence, unspecified, uncomplicated
CPT/HCPCS: 70450; 70551; 80053; 82550; 83735; 84484; 85007; 85027; 93005; 96374; 99285; J2060

== ENCOUNTER 2017-09-03 11:42 | Emergency (ER) | payer MEDICAID ==
[~2017-09-03 11:42] MED LIST changes: +MECL-62 PO; +PROM25TA10 PO
[2017-09-03 11:48] VITALS: BP 94/50; PULSE 91; RESP 16; TEMP 97.3; O2SAT 96
[2017-09-03] MEDS ORDERED: SODIUM CHLOR 0.9% 1000 ML INJ 1,000 ML IV SCH (12:01)
--- NOTE | 2017-09-03 12:05 | PD ---
HPI Chief Complaint: Pain: Acute or Chronic Time Seen by Provider: 11:53 Travel History International Travel<30 days: No Contact w/Intl Traveler<30days: No Traveled to known affect area: No History of Present Illness HPI This is a 62-year-old homeless male who presents for evaluation of bilateral leg pain. Symptoms started 1 week ago. He describes it as a cramping sensation in his calves and thighs bilaterally which is constant, no aggravating or relieving factors. He denies abdominal pain, chest pain, shortness of breath, nausea or vomiting, weakness. He reports that he had this pain once before several months ago and it resolved spontaneously. He does report that he is homeless and therefore he has to walk for transportation purposes but he does not feel that he walks excessively. Of note, the patient was seen here 10 days ago for evaluation of vertigo and he reports that the vertigo has resolved. PFSH Past Medical History Hx Anticoagulant Therapy: No Arthritis: No Asthma: No Autoimmune Disease: No Heart Rhythm Problems: No Cancer: No Cardiovascular Problems: Yes (HTN) High Cholesterol: Yes Chemotherapy: No Chest Pain: No Congestive Heart Failure: No COPD: Yes Cerebrovascular Accident: No Diabetes: No Diminished Hearing: No Endocrine: No Gastrointestinal Disorders: Yes GERD: No Genitourinary: No Headaches: Yes Hepatitis: No Hiatal Hernia: No Hypertension: Yes Immune Disorder: No Implanted Vascular Access Dvce: No Musculoskeletal: Yes Neurologic: Yes Psychiatric: No Reproductive: No Respiratory: Yes Immunizations Current: Yes Migraines: No Pancreatitis: Yes Radiation Therapy: No Seizures: No Sleep Apnea: Yes Thyroid Disease: No Ulcer: No Past Surgical History Abdominal Surgery: No AICD: No Arteriovenous Shunt: No Cardiac Surgery: No Ear Surgery: No Endocrine Surgery: No Eye Surgery: No Genitourinary Surgery: No Gynecologic Surgery: No Insulin Pump: No Joint Replacement: No Oral Surgery: Yes (tonsillectomy) Pacemaker: No Thoracic Surgery: No Tonsillectomy: Yes Other Surgery: Yes (right groin vascular occlusion) Social History Alcohol Use: Yes (10-12 beer daily) Tobacco Use: Yes (2 pack per day) Substance Use: Yes (marijuana) Allergies-Medications (Allergen,Severity, Reaction): Coded Allergies: codeine (Unverified Adverse Reaction, Severe, N&V, 08/24/17) Reported Meds & Prescriptions Reported Meds & Active Scripts Active Naproxen 500 Mg Tab 500 Mg PO BID 10 Days Phenergan (Promethazine HCl) 25 Mg Tablet 25 Mg PO Q6H PRN Meclizine (Meclizine HCl) 25 Mg Tab 25 Mg PO TID PRN Baclofen 10 Mg Tab 10 Mg PO Q8HR [address] (Diclofenac Sodium) 75 Mg Tabdr 75 Mg PO BID 10 Days Reported Advair Diskus Inh (Fluticasone-Salmeterol Inh) 250-50 Mcg/Blist Aer 1 Puff INH BID Rinse mouth after use. Proair Hfa 8.5 GM Inh (Albuterol Sulfate) 90 Mcg/Act Aer 90 Mcg INH BID Lovastatin 40 Mg Tab 40 Mg PO DAILY Lisinopril 10 Mg Tab 10 Mg PO DAILY Review of Systems Except as stated in HPI: all other systems reviewed are Neg Physical Exam Narrative GENERAL: Well-developed well-nourished male in no acute distress SKIN: Warm and dry. HEAD: Atraumatic. Normocephalic. EYES: Pupils equal and round. No scleral icterus. No injection or drainage. ENT: No nasal bleeding or discharge. Mucous membranes pink and moist. NECK: Trachea midline. No JVD. CARDIOVASCULAR: Regular rate and rhythm. No murmur appreciated. RESPIRATORY: No accessory muscle use. Clear to auscultation. Breath sounds equal bilaterally. GASTROINTESTINAL: Abdomen soft, non-tender, nondistended. Hepatic and splenic margins not palpable. MUSCULOSKELETAL: No obvious deformities. There is some tenderness to palpation in the calf and thigh muscle bilaterally. There is trace tibial edema bilaterally. 1+ dorsalis pedis pulse bilaterally. Lower extremities are warm and well-perfused. The compartments of the legs are soft. No joint effusions. NEUROLOGICAL: Awake and alert. No obvious cranial nerve deficits. Motor grossly within normal limits. Normal speech. Data Data Last Documented VS Vital Signs Date Time Temp Pulse Resp B/P (MAP) Pulse Ox O2 Delivery O2 Flow Rate FiO2 09/03/17 11:48 97.3 91 16 94/50 (65) 96 Orders Orders Us Leg Venous Doppler Bilat (09/03/17 12:01) Basic Metabolic Panel (Bmp) (09/03/17 12:01) Complete Blood Count With Diff (09/03/17 12:01) Iv Access Insert/Monitor (09/03/17 12:01) Sodium Chlor 0.9% 1000 Ml Inj (Ns 1000 M (09/03/17 12:01) Magnesium (Mg) (09/03/17 12:01) Creatine Kinase (Cpk) (09/03/17 12:01) Ed Discharge Order (09/03/17 13:56) Ketorolac Inj (Toradol Inj) (09/03/17 14:00) Labs Laboratory Tests Test 09/03/17 12:24 White Blood Count 4.8 TH/MM3 Red Blood Count 3.31 MIL/MM3 Hemoglobin 11.5 GM/DL Hematocrit 33.1 % Mean Corpuscular Volume 99.9 FL Mean Corpuscular Hemoglobin 34.9 PG Mean Corpuscular Hemoglobin Concent 34.9 % Red Cell Distribution Width 16.0 % Platelet Count 183 TH/MM3 Mean Platelet Volume 8.5 FL Neutrophils (%) (Auto) 32.4 % Lymphocytes (%) (Auto) 53.0 % Monocytes (%) (Auto) 10.4 % Eosinophils (%) (Auto) 3.0 % Basophils (%) (Auto) 1.2 % Neutrophils # (Auto) 1.6 TH/MM3 Lymphocytes # (Auto) 2.6 TH/MM3 Monocytes # (Auto) 0.5 TH/MM3 Eosinophils # (Auto) 0.1 TH/MM3 Basophils # (Auto) 0.1 TH/MM3 CBC Comment DIFF FINAL Differential Comment Blood Urea Nitrogen 5 MG/DL Creatinine 0.65 MG/DL Random Glucose 79 MG/DL Calcium Level 8.0 MG/DL Magnesium Level 1.9 MG/DL Sodium Level 136 MEQ/L Potassium Level 3.6 MEQ/L Chloride Level 104 MEQ/L Carbon Dioxide Level 24.2 MEQ/L Anion Gap 8 MEQ/L Estimat Glomerular Filtration Rate 125 ML/MIN Total Creatine Kinase 53 U/L [facility] Medical Decision Making Medical Screen Exam Complete: Yes Emergency Medical Condition: Yes Medical Record Reviewed: Yes Differential Diagnosis Muscle cramps, electrolyte abnormality, rhabdomyolysis, intermittent claudication, bilateral DVT, spinal stenosis, lumbosacral radiculopathy, peripheral neuropathy, polymyalgia rheumatica Narrative Course This is a 62-year-old homeless individual who presents with 1 week of crampy pain in his calves and thighs. He has trace tibial edema. He has no evidence of an acute arterial occlusion. He will be given IV fluid bolus and basic lab work has been ordered. Ultrasound of the lower extremities has been ordered. CBC reveals a hemoglobin of 11.5. BMP reveals a calcium of 8 otherwise unremarkable. Total CK is 53. Ultrasound of the lower extremities is normal. At this point in time the plan is to discharge the patient to follow-up with his primary care physician. He will be given a dose of Toradol here and discharged with naproxen. Diagnosis Primary Impression: Bilateral leg pain Additional Instructions: Medication as needed. Stay well hydrated and well-nourished. Follow-up with primary care physician. Return for any emergent medical conditions. Med/Other Pt SpecificInfo: Prescription(s) given Scripts Naproxen (Naproxen) 500 Mg Tab 500 MG PO BID for 10 Days, #20 TAB 0 Refills Prov: Lisandro Vivas MD 09/03/17 Disposition: 01 DISCHARGE HOME Condition: Stable Grant Arvizu Sep 03, 2017 12:05
[2017-09-03 12:36] LABS: AUTOMATED NEUTROPHIL # 1.6 TH/MM3 (1.8-7.7); BASOPHIL # 0.1 TH/MM3 (0-0.2); BASOPHIL % 1.2 % (0.0-2.0); EOSINOPHIL # 0.1 TH/MM3 (0-0.4); HEMATOCRIT 33.1 % (39.0-51.0); HEMOGLOBIN 11.5 GM/DL (13.0-17.0); LYMPHOCYTE # 2.6 TH/MM3 (1.0-4.8); MEAN CELL VOLUME 99.9 FL (80.0-100.0); MEAN CORPUSCULAR HEMOGLOBIN 34.9 PG (27.0-34.0); MEAN CORPUSCULAR HGB CONC 34.9 % (32.0-36.0); MEAN PLATELET VOLUME 8.5 FL (7.0-11.0); MONO % 10.4 % (0.0-8.0); MONOCYTE # 0.5 TH/MM3 (0-0.9); NEUT % 32.4 % (16.0-70.0); PLATELET COUNT 183 TH/MM3 (150-450); RED BLOOD COUNT 3.31 MIL/MM3 (4.50-5.90); WHITE BLOOD COUNT 4.8 TH/MM3 (4.0-11.0)
[2017-09-03 13:16] LABS: BICARBONATE 24.2 MEQ/L (21.0-32.0); CREATININE 0.65 MG/DL (0.60-1.30); MAGNESIUM 1.9 MG/DL (1.5-2.5)
--- NOTE | 2017-09-03 13:44 | RADRPT ---
EXAM DATE/TIME: 09/03/2017 13:05 [facility] COMPARISON: No previous studies available for comparison. INDICATIONS : Bilateral leg pain and cramps. MEDICAL HISTORY : Hypercholesterolemia. Emphysema. Pancreatitis. Syncope. HTN. COPD. Sleep apnea. Dyspnea. Herniated di sc. Substance and tobacco use. MRSA. SURGICAL HISTORY : Tonsillectomy. Left hand surgery. Right groin vascular occlusion. ENCOUNTER: Initial PAIN SCORE: 7/10 LOCATION: Bilateral leg. TECHNIQUE: Venous ultrasound of the left and right leg was performed from the inguinal ligament to the proximal calf. Real-time, color Doppler and spectral tracing, compression and augmentation techniques were us ed. FINDINGS: RIGHT LEG: There is normal compressibility of the deep venous system from the inguinal region to the proximal ca lf. No echogenic clot is seen in the lumen of the common femoral, femoral, popliteal, and posterior tibial veins. There is a normal response of the venous system to proximal and distal augmentation an d respiration. LEFT LEG: There is normal compressibility of the deep venous system from the inguinal region to the proximal ca lf. No echogenic clot is seen in the lumen of the common femoral, femoral, popliteal, and posterior tibial veins. There is a normal response of the venous system to proximal and distal augmentation an d respiration. CONCLUSION: Normal examination. Skinny Tang MD on September 03, 2017 at 13:41 Board Certified Radiologist. This report was verified electronically.
[2017-09-03] MEDS ORDERED: NAPR500T2 PO (13:58)
[2017-09-03 13:59] VITALS: BP 160/56; PULSE 80; RESP 16; O2SAT 97
[2017-09-03] MEDS ORDERED: KETOROLAC TROMETHAMINE 30 MG/ML (IVP) VIAL IV PUSH ONE (14:00)
[2017-09-03 14:57] VITALS: BP 130/69
== END 2017-09-03 14:58 | disposition home or self-care (01) ==
LOC: NEPD 11:42
DX: M79.604 Pain in right leg (principal); M79.605 Pain in left leg; E78.00 Pure hypercholesterolemia, unspecified; I10 Essential (primary) hypertension; F12.90 Cannabis use, unspecified, uncomplicated; F17.200 Nicotine dependence, unspecified, uncomplicated; J44.9 Chronic obstructive pulmonary disease, unspecified; Z79.899 Other long term (current) drug therapy
CPT/HCPCS: 80048; 82550; 83735; 85025; 93970; 96361; 96374; 99284; J1885; J7030

== ENCOUNTER 2017-09-29 14:59 | Emergency (ER) | payer MEDICAID ==
[~2017-09-29] VITALS: Ht 175.3 cm; Wt 80.0 kg
[~2017-09-29 14:59] MED LIST changes: +NAPR500T2 PO
[2017-09-29 15:30] VITALS: BP 109/58; PULSE 78; RESP 22; TEMP 97.8; O2SAT 94
[2017-09-29] MEDS ORDERED: CEPH-460 PO (15:39)
[2017-09-29] MEDS ORDERED: BACT800T5 PO (15:39)
--- NOTE | 2017-09-29 15:39 | PD ---
HPI Chief Complaint: Edema Time Seen by Provider: 15:36 Travel History International Travel<30 days: No Contact w/Intl Traveler<30days: No Traveled to known affect area: No History of Present Illness HPI 62-year-old male presents emergency department for evaluation of erythema and edema of the left lower extremity. States it is severe and constant. Patient states this is been ongoing for the last 2 days. Denies any fever or chills. Denies any significant injury. Denies any history of DVT or PE. Patient states he has had cellulitis in the past and this is consistent with that. Tells me that he drinks alcohol daily and unable to afford antibiotic. He is requesting admission. He has no other symptoms to report. PFSH Past Medical History Hx Anticoagulant Therapy: No Arthritis: No Asthma: No Autoimmune Disease: No Heart Rhythm Problems: No Cancer: No Cardiovascular Problems: Yes (HTN) High Cholesterol: Yes Chemotherapy: No Chest Pain: No Congestive Heart Failure: No COPD: Yes Cerebrovascular Accident: No Diabetes: No Diminished Hearing: No Deep Vein Thrombosis: Yes Endocrine: No Gastrointestinal Disorders: Yes GERD: No Genitourinary: No Headaches: Yes Hepatitis: No Hiatal Hernia: No Hypertension: Yes Immune Disorder: No Implanted Vascular Access Dvce: No Musculoskeletal: Yes Neurologic: Yes Psychiatric: No Reproductive: No Respiratory: Yes Immunizations Current: Yes Migraines: No Pancreatitis: Yes Radiation Therapy: No Seizures: No Sleep Apnea: Yes Thyroid Disease: No Ulcer: No Past Surgical History Abdominal Surgery: No AICD: No Arteriovenous Shunt: No Cardiac Surgery: No Ear Surgery: No Endocrine Surgery: No Eye Surgery: No Genitourinary Surgery: No Gynecologic Surgery: No Insulin Pump: No Joint Replacement: No Neurologic Surgery: No Oral Surgery: Yes (tonsillectomy) Pacemaker: No Thoracic Surgery: No Tonsillectomy: Yes Other Surgery: Yes (right groin vascular occlusion) Social History Alcohol Use: Yes (10-12 beer daily) Tobacco Use: Yes (2 pack per day) Substance Use: Yes (marijuana) Allergies-Medications (Allergen,Severity, Reaction): Coded Allergies: codeine (Unverified Adverse Reaction, Severe, N&V, 08/24/17) Reported Meds & Prescriptions Reported Meds & Active Scripts Active Keflex (Cephalexin) 500 Mg Cap 500 Mg PO Q6H 5 Days Bactrim DS (Sulfamethoxazole-Trimethoprim) 800-160 Mg Tab 1 Tab PO BID Naproxen 500 Mg Tab 500 Mg PO BID 10 Days Phenergan (Promethazine HCl) 25 Mg Tablet 25 Mg PO Q6H PRN Meclizine (Meclizine HCl) 25 Mg Tab 25 Mg PO TID PRN Baclofen 10 Mg Tab 10 Mg PO Q8HR [address] (Diclofenac Sodium) 75 Mg Tabdr 75 Mg PO BID 10 Days Reported Advair Diskus Inh (Fluticasone-Salmeterol Inh) 250-50 Mcg/Blist Aer 1 Puff INH BID Rinse mouth after use. Proair Hfa 8.5 GM Inh (Albuterol Sulfate) 90 Mcg/Act Aer 90 Mcg INH BID Lovastatin 40 Mg Tab 40 Mg PO DAILY Lisinopril 10 Mg Tab 10 Mg PO DAILY Review of Systems Except as stated in HPI: all other systems reviewed are Neg Physical Exam Narrative GENERAL: Unkempt male patient, no acute distress SKIN: Focused skin assessment warm/dry. Dirty, cracked, bilateral feet. Mild erythema of the left lower extremity. Warm to touch. No significant edema. HEAD: Atraumatic. Normocephalic. EYES: Pupils equal and round. No scleral icterus. No injection or drainage. ENT: No nasal bleeding or discharge. Mucous membranes pink and moist. NECK: Trachea midline. No JVD. CARDIOVASCULAR: Regular rate and rhythm. No murmur appreciated. RESPIRATORY: No accessory muscle use. Coarse, clear to cough. To auscultation. Breath sounds equal bilaterally. MUSCULOSKELETAL: No obvious deformities. No clubbing. No cyanosis. No edema. NEUROLOGICAL: Awake and alert. No obvious cranial nerve deficits. Motor grossly within normal limits. Normal speech. Distal pulses are palpable. Cap refills within normal limits. Data Data Last Documented VS Vital Signs Date Time Temp Pulse Resp B/P (MAP) Pulse Ox O2 Delivery O2 Flow Rate FiO2 09/29/17 15:30 97.8 78 22 109/58 (75) 94 Orders Orders Ed Discharge Order (09/29/17 15:37) [facility] Medical Decision Making Medical Screen Exam Complete: Yes Emergency Medical Condition: Yes Medical Record Reviewed: Yes Differential Diagnosis Cellulitis versus erysipelas versus DVT versus PAD Narrative Course 62-year-old male presents emergency department for evaluation of left lower extremity erythema and edema. Patient appears without distress. Vital signs are stable. He does have history of COPD so oxygen saturation of 94% is not concerning at this time with no additional symptoms. Patient will be started on oral antibiotics for left lower extremity e cellulitis. He is encouraged to follow-up with primary care provider and return immediately with acute worsening symptoms. Diagnosis Primary Impression: Cellulitis of left lower extremity Referrals: Primary Care Physician Patient Instructions: Cellulitis (ED), General Instructions Additional Instructions: Elevate to reduce pain and swelling Start antibiotic today and take it until it is all gone Return immediately with any acute worsening symptoms Return immediately with any acute worsening of symptoms Med/Other Pt SpecificInfo: Prescription(s) given Scripts Cephalexin (Keflex) 500 Mg Cap 500 MG PO Q6H for Infection for 5 Days, #20 CAP 0 Refills Prov: Yecenia Elizabeth 09/29/17 Sulfamethoxazole-Trimethoprim (Bactrim DS) 800-160 Mg Tab 1 TAB PO BID for Infection, #20 TAB 0 Refills Prov: Yecenia Elizabeth 09/29/17 Disposition: 01 DISCHARGE HOME Condition: Stable Yecenia Elizabeth September 29, 2017 15:39
== END 2017-09-29 15:53 | disposition home or self-care (01) ==
LOC: NEPK 14:59
DX: L03.116 Cellulitis of left lower limb (principal); I10 Essential (primary) hypertension; E78.00 Pure hypercholesterolemia, unspecified; J44.9 Chronic obstructive pulmonary disease, unspecified; G47.30 Sleep apnea, unspecified; F12.90 Cannabis use, unspecified, uncomplicated; F17.200 Nicotine dependence, unspecified, uncomplicated; Z86.718 Personal history of other venous thrombosis and embolism; Z87.19 Personal history of other diseases of the digestive system
CPT/HCPCS: 99283

== ENCOUNTER 2017-09-30 13:48 | Emergency (ER) | payer MEDICAID ==
[~2017-09-30 13:48] MED LIST changes: +BACT800T5 PO; +CEPH-460 PO
[2017-09-30 13:56] VITALS: BP 116/66; PULSE 110; RESP 16; TEMP 97.9; O2SAT 97
--- NOTE | 2017-09-30 16:07 | PD ---
HPI . Left foot pain Chief Complaint: Pain: Acute or Chronic Time Seen by Provider: 15:59 Travel History International Travel<30 days: No Contact w/Intl Traveler<30days: No Traveled to known affect area: No History of Present Illness HPI Patient presents for the evaluation of left foot pain. He reports onset of pain 4 days ago. He describes the pain as a throbbing sensation which she rates 10/10. It is exacerbated by walking. The patient was seen here yesterday for same and was given prescriptions for Bactrim and Keflex. He has not had these filled. History Past Medical Histgory Hx Cancer: No Hx Chemotherapy: No Hx Radiation Therapy: No Social History Alcohol Use: Yes (10-12 beer daily) Tobacco Use: Yes (2 pack per day) Allergies-Medications (Allergen,Severity, Reaction): Coded Allergies: codeine (Unverified Adverse Reaction, Severe, N&V, 08/24/17) Reported Meds & Prescriptions Reported Meds & Active Scripts Active Keflex (Cephalexin) 500 Mg Cap 500 Mg PO Q6H 5 Days Bactrim DS (Sulfamethoxazole-Trimethoprim) 800-160 Mg Tab 1 Tab PO BID Naproxen 500 Mg Tab 500 Mg PO BID 10 Days Phenergan (Promethazine HCl) 25 Mg Tablet 25 Mg PO Q6H PRN Meclizine (Meclizine HCl) 25 Mg Tab 25 Mg PO TID PRN Baclofen 10 Mg Tab 10 Mg PO Q8HR [address] (Diclofenac Sodium) 75 Mg Tabdr 75 Mg PO BID 10 Days Reported Advair Diskus Inh (Fluticasone-Salmeterol Inh) 250-50 Mcg/Blist Aer 1 Puff INH BID Rinse mouth after use. Proair Hfa 8.5 GM Inh (Albuterol Sulfate) 90 Mcg/Act Aer 90 Mcg INH BID Lovastatin 40 Mg Tab 40 Mg PO DAILY Lisinopril 10 Mg Tab 10 Mg PO DAILY Review of Systems Except as stated in HPI: all other systems reviewed are Neg Physical Exam Narrative GENERAL: Awake and alert and in no acute distress. Disheveled. SKIN: Warm and dry. His feet are filthy. I am really not able to appreciate any erythema of the foot. HEAD: Normocephalic/atraumatic. EYES: Pupils are equal. Extraocular movements are intact. NECK: Normal range of motion. CARDIOVASCULAR: Regular rate and rhythm. RESPIRATORY: Nonlabored respirations. MUSCULOSKELETAL: Atraumatic. NEUROLOGICAL: Nonfocal. PSYCHIATRIC: Appropriate mood and affect. Data Data Last Documented VS Vital Signs Date Time Temp Pulse Resp B/P (MAP) Pulse Ox O2 Delivery O2 Flow Rate FiO2 09/30/17 13:56 97.9 110 16 116/66 (83) 97 MDM Medical Screen Exam Complete: Yes Emergency Medical Condition: No Narrative Course This patient presents with left foot pain. His feet are filthy but I do not see any evidence of infection. He was given prescriptions for cellulitis yesterday but has not had them filled. A medical screening exam was performed: At the time of evaluation the presenting medical condition was determined not to be of an emergent nature. The patient was given the option of receiving additional care, but declined. Patient was given options for additional community resources from which to obtain care. The Patient Has Been advised to seek medical attention for their presenting complaint. The patient has been advised to return to the ER at any time if an emergent condition develops. Primary Impression: Encounter for medical screening examination Condition: Stable Moraima Clements MD September 30, 2017 16:07
== END 2017-09-30 16:23 | disposition left against medical advice (07) ==
LOC: NEPD 13:48
DX: M79.672 Pain in left foot (principal)
CPT/HCPCS: 99281

== ENCOUNTER 2017-11-11 14:02 | Inpatient (IN) | payer MEDICAID ==
[2017-11-11] VITALS (7 sets, daily range): BP systolic 124–165; BP diastolic 67–93; PULSE 81–94; RESP 20–23; TEMP 98.1–98.6; O2SAT 95–97
[~2017-11-11] VITALS: Ht 175.3 cm; Wt 78.0 kg
[2017-11-11 14:56] LABS: AUTOMATED NEUTROPHIL # 10.5 TH/MM3 (1.8-7.7); BASOPHIL # 0.1 TH/MM3 (0-0.2); BASOPHIL % 0.5 % (0.0-2.0); EOSINOPHIL % 0.1 % (0.0-4.0); HEMATOCRIT 28.1 % (39.0-51.0); HEMOGLOBIN 9.5 GM/DL (13.0-17.0); LYMPH % 13.1 % (9.0-44.0); LYMPHOCYTE # 1.8 TH/MM3 (1.0-4.8); MEAN CELL VOLUME 100.6 FL (80.0-100.0); MEAN CORPUSCULAR HEMOGLOBIN 33.9 PG (27.0-34.0); MEAN CORPUSCULAR HGB CONC 33.7 % (32.0-36.0); MEAN PLATELET VOLUME 7.8 FL (7.0-11.0); MONO % 8.7 % (0.0-8.0); MONOCYTE # 1.2 TH/MM3 (0-0.9); NEUT % 77.6 % (16.0-70.0); PLATELET COUNT 299 TH/MM3 (150-450); RED CELL DISTRIBUTION WIDTH 16.5 % (11.6-17.2); WHITE BLOOD COUNT 13.5 TH/MM3 (4.0-11.0)
[2017-11-11] MEDS ORDERED: RESP: ALBUTEROL 2.5 MG/IPRATROPIUM 0.5 MG NEB (SCH) NEB ONE (15:00)
[2017-11-11] MEDS ORDERED: predniSONE 20 MG TAB PO ONE (15:00)
--- NOTE | 2017-11-11 15:02 | RADRPT ---
EXAM DATE: 11/11/2017 2:59 PM EDT AGE/SEX: 62 years / Male INDICATIONS: Short of breath. Trouble breathing. CLINICAL DATA: This is the patient's initial encounter. Patient reports that signs and symptoms have been present for 2 weeks and indicates a pain score of 0/10. MEDICAL/SURGICAL HISTORY: . Chronic obstructive pulmonary disease. Hypertension. . Tonsillecto my. Peripheral arterial bypass. Left hand. COMPARISON: [facility] [place], CHEST SINGLE AP, 11/07/2016. . FINDINGS: Area of consolidation left midlung suspicious for inflammatory process. Right lung clear. The heart a nd pulmonary vascularity are normal. The portion of the bony skeleton visualized is unremarkable. CONCLUSION: Consolidative process right midlung suspicious for inflammatory process. Serial films resolution are suggested. Electronically signed by: Cayetano Gabriel MD 11/11/2017 3:01 PM EDT
--- NOTE | 2017-11-11 15:04 | PD ---
HPI Chief Complaint: Respiratory Symptoms Time Seen by Provider: 14:30 Travel History International Travel<30 days: No Contact w/Intl Traveler<30days: No Traveled to known affect area: No History of Present Illness HPI Patient is a 62 year old male presents to the ER for evaluation of cough, congestion, SOB, wheezing for the past 4 days gradually worsening. Patient states some chest discomfort when he takes a deep breath. No fevers. Cough productive of clear sputum. States symptoms mild, context, duration and associated s/s as above. PFSH Past Medical History Hx Anticoagulant Therapy: No Arthritis: No Asthma: No Autoimmune Disease: No Heart Rhythm Problems: No Cancer: No Cardiovascular Problems: Yes (HTN) High Cholesterol: Yes Chemotherapy: No Chest Pain: No Congestive Heart Failure: No COPD: Yes Cerebrovascular Accident: No Diabetes: No Diminished Hearing: No Deep Vein Thrombosis: Yes Endocrine: No Gastrointestinal Disorders: Yes GERD: No Genitourinary: No Headaches: Yes Hepatitis: No Hiatal Hernia: No Hypertension: Yes Immune Disorder: No Implanted Vascular Access Dvce: No Musculoskeletal: Yes Neurologic: Yes Psychiatric: No Reproductive: No Respiratory: Yes Immunizations Current: Yes Migraines: No Pancreatitis: Yes Radiation Therapy: No Seizures: No Sleep Apnea: Yes Thyroid Disease: No Ulcer: No Tetanus Vaccination: < 5 Years Influenza Vaccination: No Past Surgical History Abdominal Surgery: No AICD: No Arteriovenous Shunt: No Cardiac Surgery: No Ear Surgery: No Endocrine Surgery: No Eye Surgery: No Genitourinary Surgery: No Gynecologic Surgery: No Insulin Pump: No Joint Replacement: No Neurologic Surgery: No Oral Surgery: Yes (tonsillectomy) Pacemaker: No Thoracic Surgery: No Tonsillectomy: Yes Other Surgery: Yes (right groin vascular occlusion) Social History Alcohol Use: Yes (10-12 beer daily) Tobacco Use: Yes (2 pack per day) Substance Use: Yes (marijuana) Allergies-Medications (Allergen,Severity, Reaction): Coded Allergies: codeine (Unverified Adverse Reaction, Severe, N&V, 11/11/17) Reported Meds & Prescriptions Reported Meds & Active Scripts Active Reported Advair Diskus Inh (Fluticasone-Salmeterol Inh) 250-50 Mcg/Blist Aer 1 Puff INH BID Rinse mouth after use. Proair Hfa 8.5 GM Inh (Albuterol Sulfate) 90 Mcg/Act Aer 1 Puff INH BID Lovastatin 40 Mg Tab 40 Mg PO DAILY Lisinopril 10 Mg Tab 10 Mg PO DAILY Review of Systems Except as stated in HPI: all other systems reviewed are Neg Physical Exam Narrative GENERAL: WD/WN tachypneic. SKIN: Warm and dry. HEAD: Atraumatic. Normocephalic. EYES: Pupils equal and round. No scleral icterus. No injection or drainage. ENT: No nasal bleeding or discharge. Mucous membranes pink and moist. NECK: Trachea midline. No JVD. CARDIOVASCULAR: Regular rate and rhythm. No mgr. No chest wall tenderness. RESPIRATORY: Tripod position, expiratory wheezing R>L. Good air entry. Tachycardia. Minmally increased WOB. GASTROINTESTINAL: Abdomen soft, non-tender, nondistended. Hepatic and splenic margins not palpable. MUSCULOSKELETAL: Extremities without clubbing, cyanosis, or edema. No obvious deformities. NEUROLOGICAL: Awake and alert. No obvious cranial nerve deficits. Motor grossly within normal limits. Five out of 5 muscle strength in the arms and legs. Normal speech. PSYCHIATRIC: Appropriate mood and affect; insight and judgment normal. Data Data Last Documented VS Vital Signs Date Time Temp Pulse Resp B/P (MAP) Pulse Ox O2 Delivery O2 Flow Rate FiO2 11/11/17 15:21 97 Nasal Cannula 2.00 11/11/17 14:26 88 23 154/81 (105) 11/11/17 14:07 98.6 Orders Orders Electrocardiogram (11/11/17 14:13) Complete Blood Count With Diff (11/11/17 14:13) Basic Metabolic Panel (Bmp) (11/11/17 14:13) Ckmb (Isoenzyme) Profile (11/11/17 14:13) Troponin I (11/11/17 14:13) Chest, Single Ap (11/11/17 14:13) Iv Access Insert/Monitor (11/11/17 14:13) Ecg Monitoring (11/11/17 14:13) Oxygen Administration (11/11/17 14:13) Oximetry (11/11/17 14:13) Albuterol-Ipratropium Neb (Duoneb Neb) (11/11/17 15:00) Prednisone (Deltasone) (11/11/17 15:00) Blood Culture (11/11/17 15:03) Lactic Acid (6/22/18 15:03) Ceftriaxone Inj (Rocephin Inj) (11/11/17 15:15) Azithromycin Inj (Zithromax Inj) (11/11/17 15:15) Admit Order (Ed Use Only) (11/11/17 ) Labs Laboratory Tests Test 11/11/17 14:18 11/11/17 15:15 White Blood Count 13.5 TH/MM3 Red Blood Count 2.80 MIL/MM3 Hemoglobin 9.5 GM/DL Hematocrit 28.1 % Mean Corpuscular Volume 100.6 FL Mean Corpuscular Hemoglobin 33.9 PG Mean Corpuscular Hemoglobin Concent 33.7 % Red Cell Distribution Width 16.5 % Platelet Count 299 TH/MM3 Mean Platelet Volume 7.8 FL Neutrophils (%) (Auto) 77.6 % Lymphocytes (%) (Auto) 13.1 % Monocytes (%) (Auto) 8.7 % Eosinophils (%) (Auto) 0.1 % Basophils (%) (Auto) 0.5 % Neutrophils # (Auto) 10.5 TH/MM3 Lymphocytes # (Auto) 1.8 TH/MM3 Monocytes # (Auto) 1.2 TH/MM3 Eosinophils # (Auto) 0.0 TH/MM3 Basophils # (Auto) 0.1 TH/MM3 CBC Comment DIFF FINAL Differential Comment Blood Urea Nitrogen 3 MG/DL Creatinine 0.55 MG/DL Random Glucose 77 MG/DL Calcium Level 8.3 MG/DL Sodium Level 136 MEQ/L Potassium Level 3.8 MEQ/L Chloride Level 99 MEQ/L Carbon Dioxide Level 28.2 MEQ/L Anion Gap 9 MEQ/L Estimat Glomerular Filtration Rate 151 ML/MIN Total Creatine Kinase 42 U/L Troponin I LESS THAN 0.02 NG/ML Lactic Acid Level 0.8 mmol/L [facility] Medical Decision Making Medical Screen Exam Complete: Yes Emergency Medical Condition: Yes Differential Diagnosis PNA, ACS, AMI, COPD exacerbation. Narrative Course Patient roomed in ED, tachypnea and WBC indicate SIRS. CXR shows substantial opacity in right lung. This would be consistent with PNA. Lactic acid normal negating the need for aggressive fluid resuscitation. Rocephin and azithromycin after BC's. Discussed with patient and residents for admission. Diagnosis Primary Impression: Sepsis Additional Impression: Pneumonia Admitting Information Admitting Physician Requests: Admit Condition: Stable Lisandro Vivas MD Nov 11, 2017 15:04
[2017-11-11] MEDS ORDERED: AZITHROMYCIN INJ 500 MG in SODIUM CHLOR 0.9% 250 ML INJ 250 ML IV ONE (15:15)
[2017-11-11] MEDS ORDERED: cefTRIAXone INJ 1,000 MG in SODIUM CHLORIDE 0.9% INJ 100 ML IV ONE (15:15)
[2017-11-11 15:23] LABS: BICARBONATE 28.2 MEQ/L (21.0-32.0); BLOOD UREA NITROGEN 3 MG/DL (7-18); CALCIUM 8.3 MG/DL (8.5-10.1); CHLORIDE 99 MEQ/L (98-107); CREATININE 0.55 MG/DL (0.60-1.30); GLOMERULAR FILTRATION RATE 151 ML/MIN (>89); GLUCOSE,RANDOM 77 MG/DL (74-106); SODIUM (NA) 136 MEQ/L (136-145)
[2017-11-11 15:30] LABS: TROPONIN I LESS THAN 0.02 NG/ML (0.02-0.05)
--- NOTE | 2017-11-11 17:34 | HHI.HP ---
[facility] Service Family Medicine Primary Care Physician MARQUISE Adhikari Admission Diagnosis Sepsis/PNA Diagnoses: International Travel<30 Days: No Contact w/Intl Traveler<30days: No Known Affected Area: No History of Present Illness 62 y/o w/hx COPD presenting w/SOB. Went to see his vascular surgeon Dr. Locke for a blocked artery in his groin. Was told he did not look good, went to the hospital. +SOB w/wheezing and cough, productive of white sputum. Sx have been occurring over a week, getting worse. SOB while sitting is mild, worse when walking around. No chest pain. No sick symptoms other than sore throat. Uses proair, advair 250 to control COPD. Not on oxygen. 20 pack year hx. No hx of pneumonia, no hospitalizations for COPD. No recent travel or exposure to someone w/Tb. Was in the cellulitis 3 weeks ago, not admitted, only ED visit. No admissions in the last 3 months. PCP is Chase CAMARILLO. Sees clinical nurse DR. Park. (Rama Lewis MD R1) Review of Systems Constitutional: COMPLAINS OF: Fatigue, Weight loss (10 lb in 2 months), DENIES : Fever, Change in appetite, Night Sweats Endocrine: DENIES: Polyuria, Polyphagia Eyes: DENIES: Blurred vision, Vision loss Ears, nose, mouth, throat: DENIES: Hearing loss, Hoarseness Respiratory: DENIES: Apneas Cardiovascular: DENIES: Chest pain, Syncope Gastrointestinal: DENIES: Abdominal pain, Diarrhea, Nausea, Vomiting Genitourinary: DENIES: Urinary incontinence, Urgency Musculoskeletal: DENIES: Joint pain Integumentary: DENIES: Abnormal pigmentation Hematologic/lymphatic: DENIES: Bruising Neurologic: DENIES: Headache, Localized weakness, Paresthesias (Rama Lewis MD R1) Past Family Social History Past Medical History Has HTN, HLD, COPD Past Surgical History 2017 R iliofemoral TEA w/patch, R ext iliac artery FRAME TABLE OPERATOR (7mm) for proximal external iliac artery stenosis Reported Medications Reported Meds & Active Scripts Active Reported Advair Diskus Inh (Fluticasone-Salmeterol Inh) 250-50 Mcg/Blist Aer 1 Puff INH BID Rinse mouth after use. Proair Hfa 8.5 GM Inh (Albuterol Sulfate) 90 Mcg/Act Aer 1 Puff INH BID Lovastatin 40 Mg Tab 40 Mg PO DAILY Lisinopril 10 Mg Tab 10 Mg PO DAILY (Rama Lewis MD R1) Allergies: Coded Allergies: codeine (Unverified Adverse Reaction, Severe, N&V, 11/11/17) Family History Mom: No stroke or heart disease, no cancer Dad: no stroke or heart disease. no cancer Social History Drinks 6 beers/day. Last drink was yesterday. No hx of seizures from withdrawal Smoking 1/2 PD Smokes marijuana (Rama Lewis MD R1) Physical Exam Vital Signs Vital Signs Date Time Temp Pulse Resp B/P (MAP) Pulse Ox O2 Delivery O2 Flow Rate FiO2 11/11/17 16:44 89 22 165/93 (117) 95 Nasal Cannula 2.00 11/11/17 15:21 97 Nasal Cannula 2.00 11/11/17 14:34 Nasal Cannula 2.00 11/11/17 14:26 96 Room Air 11/11/17 14:26 88 23 154/81 (105) 96 Room Air 11/11/17 14:07 98.6 87 16 136/67 (90) 96 Physical Exam GENERAL: This is a older, flushed, disheveled gentleman resting comfortably in bed. Dirt is visible under the fingernails and toenails. SKIN: Cool and dry. HEAD: Atraumatic. Normocephalic. EYES: Pupils equal round and reactive. Extraocular motions intact. ENT: Airway patent. NECK: Trachea midline. CARDIOVASCULAR: Regular rate and rhythm without murmurs, gallops, or rubs. RESPIRATORY: Good inspiratory airflow. Bilateral expiratory wheezing heard anteriorly and posteriorly. No crackles or dullness to percussion. GASTROINTESTINAL: Abdomen soft, non-tender, nondistended. MUSCULOSKELETAL: Mild bilateral nonpitting lower extremity swelling most notable at the ankles R>L. No hyperpigmentation, erythema, or lesions. Bilateral calf tenderness. NEUROLOGICAL: Awake and alert. Normal range of motion. No focal deficits. Laboratory Laboratory Tests Test 11/11/17 14:18 11/11/17 15:15 White Blood Count 13.5 Red Blood Count 2.80 Hemoglobin 9.5 Hematocrit 28.1 Mean Corpuscular Volume 100.6 Mean Corpuscular Hemoglobin 33.9 Mean Corpuscular Hemoglobin Concent 33.7 Red Cell Distribution Width 16.5 Platelet Count 299 Mean Platelet Volume 7.8 Neutrophils (%) (Auto) 77.6 Lymphocytes (%) (Auto) 13.1 Monocytes (%) (Auto) 8.7 Eosinophils (%) (Auto) 0.1 Basophils (%) (Auto) 0.5 Neutrophils # (Auto) 10.5 Lymphocytes # (Auto) 1.8 Monocytes # (Auto) 1.2 Eosinophils # (Auto) 0.0 Basophils # (Auto) 0.1 CBC Comment DIFF FINAL Differential Comment Blood Urea Nitrogen 3 Creatinine 0.55 Random Glucose 77 Calcium Level 8.3 Sodium Level 136 Potassium Level 3.8 Chloride Level 99 Carbon Dioxide Level 28.2 Anion Gap 9 Estimat Glomerular Filtration Rate 151 Total Creatine Kinase 42 Troponin I LESS THAN 0.02 Lactic Acid Level 0.8 Date/Time Source Procedure Growth Status 11/11/17 15:15 Blood Peripheral Aerobic Blood Culture Pending Received 11/11/17 15:15 Blood Peripheral Anaerobic Blood Culture Pending Received (Rama Lewis MD R1) Result Diagram: 11/11/17 1418 11/11/17 1418 Imaging Last Impressions Chest X-Ray 11/11/17 1413 Signed Impressions: CONCLUSION: Consolidative process right midlung suspicious for inflammatory process. Serial films resolution are suggested. Course Received Rocephin and azithromycin the ED, prednisone 60 mg 1, and duo nebs. (Rama Lewis MD R1) Caprini VTE Risk Assessment Caprini VTE Risk Assessment: Mod/High Risk (score >= 2) (Rama Lewis MD R1) Assessment and Plan Assessment and Plan This is a 62-year-old male with a history of COPD and alcoholism admitted for pneumonia. Elevated white count with left shift on admission. Vitals stable on admission. Patient is afebrile, lactic acid within normal limits. Chest x- ray shows right middle lobe pneumonia, concerning for aspiration. Will treat with IV Rocephin and azithromycin in addition to oral Flagyl. Based on lung exam, will add breathing treatments every 6 hours while awake. Will order bilateral lower extremity Dopplers to rule out DVT. [facility] protocol for alcohol abuse. Reassess in the a.m. Code Status FULL Discussed Condition With Dr. Vasquez (Rama Lewis MD R1) Attending Attestation THIS CASE WAS DISCUSSED WITH THE RESIDENT PHYSICIANS. I HAVE REVIEWED THE RECORD AND AGREE WITH THE ABOVE NOTE AND PLAN OF CARE WAS DISCUSSED. I HAVE AUTHORIZED THE ORDER FOR ADMISSION TO AN IN-PATIENT STATUS. (José Sepulveda MD) Problem List: (1) Pneumonia ICD Codes: J18.9 - Pneumonia, unspecified organism Status: Acute Plan: Treated with ceftriaxone, azithromycin, and Flagyl Repeat chest x-ray PA and lateral tomorrow morning Trend pro calcitonin to approximate duration of therapy Duo nebs every 6 hours while awake Tessalon Perles for coughing Continue home maintenance inhaler Do not think patient requires oral steroids at this time (2) Bilateral lower extremity edema ICD Codes: R60.0 - Localized edema Status: Resolved Plan: History of cellulitis in the right and left extremity Do not suspect cellulitis at this time Swelling associated with tenderness at the ankle and calf Order bilateral lower extremity Dopplers to rule out DVT May likely be due to poor circulation. Will reassess in the a.m., consider compression stockings (3) COPD (chronic obstructive pulmonary disease) ICD Codes: J44.9 - Chronic obstructive pulmonary disease, unspecified Status: Acute Plan: Duo nebs every 6 hours Convert home Advair to Symbicort twice daily May add albuterol every 2 hours as needed for shortness of breath Oxygen if needed (4) Alcoholism ICD Codes: F10.20 - Alcohol dependence, uncomplicated Plan: Rally pack and CIWA protocol (5) HTN (hypertension) ICD Codes: I10 - Essential (primary) hypertension Status: Chronic Plan: Continue home lisinopril 10 mg daily Can add clonidine if needed (6) FEN Plan: Fluids: PO Electrolytes: None Nutrition: Regular diet DVT prophylaxis: SCDs Continue lovastatin 40 mg p.o. daily for hypercholesterolemia (Rama Lewis MD R1) Problem Qualifiers (1) Pneumonia: Qualified Codes: J69.0 - Pneumonitis due to inhalation of food and vomit (2) COPD (chronic obstructive pulmonary disease): Qualified Codes: J44.9 - Chronic obstructive pulmonary disease, unspecified Rama Lewis MD R1 Nov 11, 2017 17:34 José Sepulveda MD Nov 13, 2017 09:33
[2017-11-11] MEDS ORDERED: LORazepam 2 MG TAB PO PRN (18:00)
[2017-11-11] MEDS ORDERED: FLUMAZENIL 0.5 MG/5 ML VIAL IV PUSH PRN (18:00)
[2017-11-11] MEDS ORDERED: LORazepam 1 MG TAB PO PRN (18:00)
[2017-11-11] MEDS: RESP: ALBUTEROL 2.5 MG/IPRATROPIUM 0.5 MG NEB (SCH) INH ×2 (18:00→19:20)
[2017-11-11] MEDS ORDERED: HALOPERIDOL LACTATE 5 MG/ML AMP IM PRN (18:00)
[2017-11-11] MEDS ORDERED: ONDANSETRON ODT 4 MG TAB PO PRN (18:00)
[2017-11-11] MEDS ORDERED: LORazepam 2 MG/ML VIAL IV PUSH PRN ×4 (18:00)
[2017-11-11] MEDS ORDERED: SODIUM CHLORIDE 0.9% FLUSH 10 ML FLUSH IV FLUSH PRN (18:00)
[2017-11-11] MEDS: FOLIC ACID 1 MG TAB PO SCH (18:24)
[2017-11-11] MEDS: NICOTINE 21 MG/24 HR PATCH T-DERMAL SCH (18:28)
[2017-11-11] MEDS ORDERED: cloNIDine HCL 0.1 MG TAB PO PRN (19:15)
[2017-11-11] MEDS ORDERED: RESP: ALBUTEROL 2.5 MG/3 ML NEB (PRN) NEB (19:15)
--- NOTE | 2017-11-11 19:40 | RADRPT ---
EXAM DATE: 11/11/2017 7:17 PM EDT AGE/SEX: 62 years / Male INDICATIONS: Bilateral leg swelling. CLINICAL DATA: This is the patient's subsequent encounter. Patient reports that signs and symptoms h ave been present for 1 day and indicates a pain score of 0/10. MEDICAL/SURGICAL HISTORY: Hypercholesterolemia. Hypertension. Chronic obstructive pulmonary d isease. Right groin occlusive artery. Right foot cellulitis. Tonsillectomy. Left hand. Right groin artery surgery. COMPARISON: [facility] – [place], US LEG BILATERAL VENOUS DOPPLER, 09/03/2017. . TECHNIQUE: Venous ultrasound of both lower extremities was performed from the inguinal ligament to t he proximal calf. Real-time, color Doppler and spectral tracing, compression and augmentation techni ques were used. FINDINGS: Right Leg: Normal compression of the deep venous system from the inguinal region to the proximal alma f. No echogenic clot is seen. Normal response of the venous system to augmentation and respiration. Left Leg: Normal compression of the deep venous system from the inguinal region to the proximal calf . No echogenic clot is seen. Normal response of the venous system to augmentation and respiration. Other: None. CONCLUSION: No evidence of deep venous thrombosis. Electronically signed by: Vlad Braun MD 11/11/2017 7:39 PM EDT
[2017-11-11] MEDS ORDERED: ENOXAPARIN SODIUM 40 MG/0.4 ML SYRINGE SQ SCH (20:00)
[2017-11-11] MEDS: REMOVE OLD PATCH T-DERMAL SCH (21:00)
[2017-11-11] MEDS: THIAMINE HCL 100 MG TAB PO SCH (21:03)
[2017-11-11] MEDS: metroNIDAZOLE 500 MG TAB PO SCH (21:03)
[2017-11-11] MEDS: BUDESONIDE-FORMOTEROL 160/4.5 MCG INHALER INH SCH (22:30)
[2017-11-11] MEDS: SODIUM CHLORIDE 0.9% FLUSH 10 ML FLUSH IV FLUSH SCH (22:34)
[2017-11-11] MEDS: MULTIVITAMINS/MINERALS THERAPEUTIC TAB PO SCH (22:34)
[2017-11-12] VITALS (9 sets, daily range): BP systolic 111–136; BP diastolic 57–64; PULSE 79–97; RESP 17–20; TEMP 97.7–98.9; O2SAT 94–96
[2017-11-12] MEDS: metroNIDAZOLE 500 MG TAB PO SCH ×3 (04:56→20:03)
[2017-11-12] MEDS: BENZONATATE 100 MG CAP PO PRN ×2 (04:57→20:04)
[2017-11-12 06:47] LABS: AUTOMATED NEUTROPHIL # 7.1 TH/MM3 (1.8-7.7); BASOPHIL % 0.3 % (0.0-2.0); HEMATOCRIT 25.2 % (39.0-51.0); HEMOGLOBIN 8.6 GM/DL (13.0-17.0); LYMPH % 18.4 % (9.0-44.0); LYMPHOCYTE # 1.8 TH/MM3 (1.0-4.8); MEAN CELL VOLUME 100.3 FL (80.0-100.0); MEAN CORPUSCULAR HEMOGLOBIN 34.3 PG (27.0-34.0); MEAN CORPUSCULAR HGB CONC 34.2 % (32.0-36.0); MONO % 7.1 % (0.0-8.0); MONOCYTE # 0.7 TH/MM3 (0-0.9); NEUT % 74.2 % (16.0-70.0); PLATELET COUNT 272 TH/MM3 (150-450); RED BLOOD COUNT 2.51 MIL/MM3 (4.50-5.90); WHITE BLOOD COUNT 9.6 TH/MM3 (4.0-11.0)
[2017-11-12 07:02] LABS: BICARBONATE 27.5 MEQ/L (21.0-32.0); CALCIUM 8.4 MG/DL (8.5-10.1); CREATININE 0.53 MG/DL (0.60-1.30)
--- NOTE | 2017-11-12 08:38 | RADRPT ---
EXAM DATE: 11/12/2017 8:19 AM EDT AGE/SEX: 62 years / Male INDICATIONS: Shortness of breath. Pneumonia. CLINICAL DATA: This is the patient's subsequent encounter. Patient reports that signs and symptoms h ave been present for 4 - 6 days and indicates a pain score of 0/10. MEDICAL/SURGICAL HISTORY: . Chronic obstructive pulmonary disease. Hypertension. . Tonsillec [place]. Peripheral arterial bypass. Left hand. COMPARISON: [facility] [place], 08/26/[place]. . FINDINGS: PA and lateral views of the chest demonstrate airspace disease in the right upper lobe with associate d volume loss. Left lung clear. Mediastinum and heart are shifted to the right otherwise normal. The cardiomediastinal contours are unremarkable. Osseous structures are intact. CONCLUSION: Consolidation in the right lung with associated volume loss. Recommend antibiotic therapy and follow- up to resolution to ensure no central obstructing lesion. Electronically signed by: Kenan Heller MD 11/12/2017 8:37 AM EDT
[2017-11-12] MEDS: RESP: ALBUTEROL 2.5 MG/IPRATROPIUM 0.5 MG NEB (SCH) INH ×3 (09:33→20:33)
[2017-11-12] MEDS: BUDESONIDE-FORMOTEROL 160/4.5 MCG INHALER INH SCH ×2 (09:52→20:05)
[2017-11-12] MEDS: SODIUM CHLORIDE 0.9% FLUSH 10 ML FLUSH IV FLUSH SCH ×2 (09:53→20:05)
[2017-11-12] MEDS: MULTIVITAMINS/MINERALS THERAPEUTIC TAB PO SCH (09:53)
[2017-11-12] MEDS: NICOTINE 21 MG/24 HR PATCH T-DERMAL SCH (09:53)
[2017-11-12] MEDS: PRAVASTATIN SOD 40 MG TAB PO SCH (09:53)
[2017-11-12] MEDS: LISINOPRIL 10 MG TAB PO SCH (09:54)
[2017-11-12] MEDS: FOLIC ACID 1 MG TAB PO SCH (09:54)
[2017-11-12] MEDS: THIAMINE HCL 100 MG TAB PO SCH (09:54)
--- NOTE | 2017-11-12 14:39 | HHI.FPPN ---
Subjective Remarks Stable overnight. O2 saturation was above 94% off oxygen. No acute events overnight. Patient states that he is improved, no shortness of breath or chest pain. (Rama Lewis MD R1) Objective Vitals Vital Signs Date Time Temp Pulse Resp B/P (MAP) Pulse Ox O2 Delivery O2 Flow Rate FiO2 11/12/17 12:00 97.9 90 18 111/57 (75) 94 11/12/17 09:35 94 Nasal Cannula 2.00 11/12/17 08:00 97.7 96 18 123/58 (79) 95 11/12/17 04:00 97.7 82 20 136/64 (88) 96 11/12/17 00:13 97.8 97 20 126/59 (81) 95 11/11/17 21:50 98.1 94 20 124/67 (86) 96 11/11/17 21:16 11/11/17 19:22 95 Nasal Cannula 2.00 11/11/17 18:11 81 22 155/86 (109) 95 Nasal Cannula 2.00 11/11/17 16:44 89 22 165/93 (117) 95 Nasal Cannula 2.00 11/11/17 15:21 97 Nasal Cannula 2.00 11/11/17 14:34 Nasal Cannula 2.00 11/11/17 14:26 96 Room Air 11/11/17 14:26 88 23 154/81 (105) 96 Room Air I/O 11/11/17 11/11/17 11/11/17 11/12/17 11/12/17 11/12/17 07:00 15:00 23:00 07:00 15:00 23:00 Intake Total 350 ml 660 ml Output Total 1125 ml Balance 350 ml -465 ml Intake Oral 660 ml IV Total 350 ml Output Urine Total 1125 ml # Voids 1 1 # Bowel Movements 0 (Rama Lewis MD R1) Result Diagram: 11/12/17 0539 11/12/17 0539 Objective Remarks O. CONSTITUTIONAL/GEN: In no acute distress. Resting comfortably in bed. EYES: conjunctiva normal, PERRLA, EOMI. ENT: Mouth and pharynx normal. NECK: thyroid midline. LUNGS: Occasional expiratory rhonchi. Increased airflow from yesterday's exam. CARDIOVASCULAR: RR without murmur or gallop. GI/ABD: soft without masses, without organomegaly. NEURO: No focal deficits. SKIN: color normal, no rashes noted. MUSC: Extremities are normal in appearance. Decreased swelling since yesterday. PSYCH/MENTAL STATUS: Alert, normal affect, conversant. (Rama Lewis MD R1) A/P Assessment and Plan This is a 62-year-old male with a history of COPD and alcoholism admitted for pneumonia. Suspect aspiration pneumonia. Labs show a decreased white blood cell count from yesterday as well as improved lung exam. Chest x-ray stable from previous imaging. Plan for 1 more day on IV antibiotics and transition to p.o. tomorrow. Discharge Planning Discharge likely tomorrow with oral antibiotics for a total course of 7 days (Rama Lewis MD R1) Attending Attestation Patient seen and examined. Case reviewed and discussed with the resident team. Agree with plan of care as discussed with me and documented in the resident note. (José Sepulveda MD) Problem List: (1) Pneumonia ICD Codes: J18.9 - Pneumonia, unspecified organism Status: Acute Plan: Chest x-ray does not show significant change from previous image Treat with ceftriaxone, azithromycin, and Flagyl Duo nebs every 6 hours while awake Tessalon Pearls for coughing Continue home maintenance inhaler (2) Macrocytic anemia ICD Codes: D53.9 - Nutritional anemia, unspecified Plan: MCV of 100 Differential: Alcoholism and/or malnutrition Hemoglobin 8.6 today from 9.5 yesterday. No symptoms to suggest GI bleed. Order CBC for tomorrow to recheck. Transfuse if hemoglobin less than 7. (3) COPD (chronic obstructive pulmonary disease) ICD Codes: J44.9 - Chronic obstructive pulmonary disease, unspecified Status: Acute Plan: Duo nebs every 6 hours while awake Convert home Advair to Symbicort twice daily May add albuterol every 2 hours as needed for shortness of breath Oxygen if needed (4) Alcoholism ICD Codes: F10.20 - Alcohol dependence, uncomplicated Plan: Rally pack and CIWA protocol (5) HTN (hypertension) ICD Codes: I10 - Essential (primary) hypertension Status: Chronic Plan: Continue home lisinopril 10 mg daily Can add clonidine if needed (6) FEN Plan: Fluids: PO Electrolytes: None Nutrition: Regular diet DVT prophylaxis: SCDs Continue lovastatin 40 mg p.o. daily for hypercholesterolemia (7) Bilateral lower extremity edema ICD Codes: R60.0 - Localized edema Status: Resolved (Rama Lewis MD R1) Problem Qualifiers (1) Pneumonia: Qualified Codes: J69.0 - Pneumonitis due to inhalation of food and vomit (2) COPD (chronic obstructive pulmonary disease): Qualified Codes: J44.9 - Chronic obstructive pulmonary disease, unspecified Rama Lewis MD R1 Nov 12, 2017 14:39 José Sepulveda MD Nov 13, 2017 10:04
[2017-11-12] MEDS ORDERED: cefTRIAXone INJ 1,000 MG in SODIUM CHLORIDE 0.9% INJ 100 ML IV SCH (15:00)
[2017-11-12] MEDS ORDERED: AZITHROMYCIN INJ 500 MG in SODIUM CHLOR 0.9% 250 ML INJ 250 ML IV SCH (15:00)
--- NOTE | 2017-11-12 17:57 | EKG ---
Date Performed: 11/11/2017 Time Performed: 14:21:19 PTAGE: 62 years EKG: NORMAL Sinus rhythm SLIGHT NONSPECIFIC ST CHANGE BORDERLINE ECG Since PREVIOUS TRACING , no significant change noted PREVIOUS TRACIN08/24/2017 13.26 DOCTOR: Levi Solano Interpretating Date/Time 11/12/2017 17:55:12
[2017-11-12] MEDS ORDERED: SKIN TEST RESULT OTHER SCH (18:00)
[2017-11-12] MEDS: REMOVE OLD PATCH T-DERMAL SCH (20:05)
[2017-11-13] VITALS (10 sets, daily range): BP systolic 99–141; BP diastolic 53–69; PULSE 72–101; RESP 16–20; TEMP 97.2–98.5; O2SAT 92–100
[2017-11-13] MEDS: metroNIDAZOLE 500 MG TAB PO SCH ×3 (05:02→20:07)
[2017-11-13] MEDS: BENZONATATE 100 MG CAP PO PRN ×2 (05:02→20:07)
--- NOTE | 2017-11-13 05:30 | RADRPT ---
EXAM DATE: 11/13/2017 5:24 AM EDT AGE/SEX: 62 years / Male INDICATIONS: Pneumonia. CLINICAL DATA: This is the patient's subsequent encounter. Patient reports that signs and symptoms h ave been present for 3 days and indicates a pain score of 3/10. MEDICAL/SURGICAL HISTORY: None. None. COMPARISON: [facility] – [place], CHEST SINGLE AP, 11/11/2017. . FINDINGS: A single AP erect portable view of the chest was obtained and demonstrates an interval increase in th e confluent opacity in the right perihilar region and right lung base. There is volume loss now noted in the right hemithorax with mediastinal shift to the right. There is abnormal opacity now noted in the right paratracheal region. The left lung is clear. Bony thorax is intact. The heart size is at th e upper limits of normal. There are multiple overlying electrocardiogram leads. CONCLUSION: 1. Interval increase in consolidative infiltrate in the right perihilar region and right lung base 2. Volume loss and mediastinal shift to the right now noted with abnormal opacity in the right parat christine region which could indicate atelectasis or partial collapse. Electronically signed by: Deandre Estrella MD 11/13/2017 5:29 AM EDT
[2017-11-13 06:42] LABS: HEMATOCRIT 25.6 % (39.0-51.0); HEMOGLOBIN 8.8 GM/DL (13.0-17.0); MEAN CELL VOLUME 101.1 FL (80.0-100.0); MEAN CORPUSCULAR HEMOGLOBIN 34.7 PG (27.0-34.0); MEAN CORPUSCULAR HGB CONC 34.3 % (32.0-36.0); MEAN PLATELET VOLUME 7.8 FL (7.0-11.0); PLATELET COUNT 287 TH/MM3 (150-450); RED BLOOD COUNT 2.53 MIL/MM3 (4.50-5.90); RED CELL DISTRIBUTION WIDTH 17.1 % (11.6-17.2); WHITE BLOOD COUNT 8.8 TH/MM3 (4.0-11.0)
[2017-11-13] MEDS: RESP: ALBUTEROL 2.5 MG/IPRATROPIUM 0.5 MG NEB (SCH) INH ×3 (08:10→20:00)
[2017-11-13] MEDS: MULTIVITAMINS/MINERALS THERAPEUTIC TAB PO SCH (08:23)
[2017-11-13] MEDS: PRAVASTATIN SOD 40 MG TAB PO SCH (08:23)
[2017-11-13] MEDS: REMOVE OLD PATCH T-DERMAL SCH (08:23)
[2017-11-13] MEDS: NICOTINE 21 MG/24 HR PATCH T-DERMAL SCH (08:23)
[2017-11-13] MEDS: SODIUM CHLORIDE 0.9% FLUSH 10 ML FLUSH IV FLUSH SCH ×2 (08:24→20:10)
[2017-11-13] MEDS: BUDESONIDE-FORMOTEROL 160/4.5 MCG INHALER INH SCH ×2 (08:24→20:07)
[2017-11-13] MEDS: FOLIC ACID 1 MG TAB PO SCH (08:24)
[2017-11-13] MEDS: LISINOPRIL 10 MG TAB PO SCH (08:24)
[2017-11-13] MEDS: THIAMINE HCL 100 MG TAB PO SCH (08:24)
[2017-11-13] MEDS ORDERED: AZITHROMYCIN INJ 500 MG in SODIUM CHLOR 0.9% 250 ML INJ 250 ML IV ONE (09:00)
[2017-11-13] MEDS ORDERED: cefTRIAXone INJ 1,000 MG in SODIUM CHLORIDE 0.9% INJ 100 ML IV ONE ×2 (10:00→11:00)
--- NOTE | 2017-11-13 10:57 | HHI.FPPN ---
Subjective Remarks 62 yo homeless male with COPD and alcohol abuse admitted for RML pneumonia. Today feels no better, still with persistent cough productive of sputum, feels sick. Short of breath same as yesterday. Also notes mild numbness RLE and slight calf pain. (Allen Vasquez MD R2) Objective Vitals Vital Signs Date Time Temp Pulse Resp B/P (MAP) Pulse Ox O2 Delivery O2 Flow Rate FiO2 11/13/17 09:00 88 11/13/17 08:12 95 Nasal Cannula 1.00 11/13/17 08:00 97.4 73 17 125/65 (85) 94 11/13/17 04:28 97.9 80 18 118/69 (85) 97 11/13/17 00:04 98.4 79 18 121/59 (79) 97 11/12/17 22:00 81 11/12/17 20:34 95 Nasal Cannula 3.00 11/12/17 20:21 98.9 88 18 111/61 (78) 96 11/12/17 16:00 98.6 79 17 125/64 (84) 96 11/12/17 12:00 97.9 90 18 111/57 (75) 94 I/O 11/12/17 11/12/17 11/12/17 11/13/17 11/13/17 11/13/17 07:00 15:00 23:00 07:00 15:00 23:00 Intake Total 660 ml 950 ml 780 ml Output Total 1125 ml 425 ml 1000 ml Balance -465 ml 525 ml -220 ml Intake Oral 660 ml 600 ml 780 ml IV Total 350 ml Output Urine Total 1125 ml 425 ml 1000 ml # Bowel Movements 0 0 1 (Allen Vasquez MD R2) Result Diagram: 11/13/17 0551 11/12/17 0539 Imaging Last Impressions Chest X-Ray 11/13/17 0600 Signed Impressions: CONCLUSION: 1. Interval increase in consolidative infiltrate in the right perihilar region and right lung base 2. Volume loss and mediastinal shift to the right now noted with abnormal opac ity in the right paratracheal region which could indicate atelectasis or partia l collapse. Lower Extremity Ultrasound 11/11/17 0000 Signed Impressions: CONCLUSION: No evidence of deep venous thrombosis. Objective Remarks CONSTITUTIONAL/GEN: Ill-appearing middle aged male sitting up in bed. In no acute distress. LUNGS: Normal rate and effort. Diminished breath sounds bilaterally. Otherwise clear without crackles or wheezes. CARDIOVASCULAR: NRRR without murmur or gallop. GI/ABD: soft without masses, without organomegaly. NEURO: No focal deficits. SKIN: color normal, no rashes noted. Hot to touch, moist. MUSC: Extremities are normal in appearance. No edema. Mild tenderness R calf. No palpable cord. PSYCH/MENTAL STATUS: Alert, normal affect, conversant. Medications and IVs Current Medications Medications (Trade) Dose Ordered Sig/Ashli Route Start Time Stop Time Status Last Admin (Prinivil) 10 mg DAILY PO 11/12/17 09:00 11/13/17 08:24 (Pravachol) 40 mg DAILY PO 11/12/17 09:00 11/13/17 08:23 (Symbicort 160-4.5 Mcg Inh) 2 puff BID INH 11/11/17 21:00 11/13/17 08:24 (NS Flush) 2 ml UNSCH PRN IV FLUSH 11/11/17 18:00 (NS Flush) 2 ml BID IV FLUSH 11/11/17 21:00 11/13/17 08:24 (Flagyl) 500 mg Q8H PO 11/11/17 20:00 11/13/17 05:02 (Duoneb Neb) 1 ampule Q6HR WHILE AWAKE NEB INH 11/11/17 18:00 11/13/17 08:10 (Tessalon) 200 mg TID PRN PO 11/11/17 18:00 11/13/17 05:02 (Habitrol 21 Mg Patch.24 Hr) 1 patch DAILY T-DERMAL 11/11/17 18:00 11/13/17 08:23 Miscellaneous Information 1 HS T-DERMAL 11/11/17 21:00 11/13/17 08:23 (Folate) 1 mg DAILY PO 11/11/17 18:00 11/16/17 17:59 11/13/17 08:24 (Vitamin B1) 100 mg DAILY PO 11/11/17 20:00 11/13/17 08:24 (Theragran M Tab) 1 tab DAILY PO 11/11/17 20:00 11/16/17 19:59 11/13/17 08:23 (Romazicon Inj) 0.2 mg Q1M PRN IV PUSH 11/11/17 18:00 (Ativan) 1 mg Q4H PRN PO 11/11/17 18:00 (Ativan Inj) 1 mg Q4H PRN IV PUSH 11/11/17 18:00 (Ativan) 2 mg Q2H PRN PO 11/11/17 18:00 (Ativan Inj) 2 mg Q2H PRN IV PUSH 11/11/17 18:00 (Ativan Inj) 2 mg Q1H PRN IV PUSH 11/11/17 18:00 (Ativan Inj) 2 mg Q15M PRN IV PUSH 11/11/17 18:00 (Haldol Inj) 2 mg Q15M PRN IM 11/11/17 18:00 (Zofran Odt) 4 mg Q4H PRN PO 11/11/17 18:00 (Albuterol Neb) 2.5 mg Q2HR NEB PRN NEB 11/11/17 19:15 (Catapres) 0.1 mg Q6H PRN PO 11/11/17 19:15 Ceftriaxone Sodium 1000 mg/ Sodium Chloride 100 ml @ 200 mls/hr ONCE ONCE IV 11/13/17 10:45 11/13/17 11:14 UNV (Deltasone) 40 mg DAILY PO 11/13/17 10:45 11/14/17 09:01 UNV (Allen Vasquez MD R2) A/P Assessment and Plan This is a 62-year-old male with a history of COPD and alcoholism admitted with: (Allen Vasquez MD R2) Attending Attestation Case reviewed and discussed with the resident team. Agree with plan of care as discussed with me and documented in the resident note. (José Sepulveda MD) Problem List: (1) Pneumonia ICD Codes: J18.9 - Pneumonia, unspecified organism Status: Acute Plan: Still feels quite ill Chest x-ray does not show significant change from previous image Increase Rocephin to 2 gm IV daily Continue azithromycin, flagyl Got steroids in ER and improved, now subjectively feeling worse. Will give PO prednisone 40 mg daily to complete 3 days (i.e. 2 more doses) Duo nebs every 6 hours while awake Tessalon Pearls for coughing Continue home maintenance inhaler (2) Macrocytic anemia ICD Codes: D53.9 - Nutritional anemia, unspecified Plan: Stable MCV of 100 Differential: Alcoholism and/or malnutrition No symptoms to suggest GI bleed. H/H stable at 8.8 Trend H/H Multivitamin, thiamine, folate (3) COPD (chronic obstructive pulmonary disease) ICD Codes: J44.9 - Chronic obstructive pulmonary disease, unspecified Status: Acute Plan: Duo nebs every 6 hours while awake Convert home Advair to Symbicort twice daily May add albuterol every 2 hours as needed for shortness of breath Oxygen if needed (4) Alcoholism ICD Codes: F10.20 - Alcohol dependence, uncomplicated Plan: Rally pack and CIWA protocol Scores low so far (5) HTN (hypertension) ICD Codes: I10 - Essential (primary) hypertension Status: Chronic Plan: Continue home lisinopril 10 mg daily Can add clonidine if needed (6) Bilateral lower extremity edema ICD Codes: R60.0 - Localized edema Status: Resolved Plan: BL US negative for DVT on admission Swelling resolved Now notes calf pain on right, still no edema Consider repeat US RLE if pain worsens Continue lovenox PPX (7) FEN Plan: Fluids: PO Electrolytes: None Nutrition: Regular diet DVT prophylaxis: SCDs Continue lovastatin 40 mg p.o. daily for hypercholesterolemia Dispo: Anticipate improvement with steroids and increased antibiotic by tomorrow. If so can be safely discharged home. (Allen Vasquez MD R2) Problem Qualifiers (1) Pneumonia: Qualified Codes: J69.0 - Pneumonitis due to inhalation of food and vomit (2) COPD (chronic obstructive pulmonary disease): Qualified Codes: J44.9 - Chronic obstructive pulmonary disease, unspecified Allen Vasquez MD R2 Nov 13, 2017 10:57 José Sepulveda MD Nov 13, 2017 18:18
[2017-11-13] MEDS: predniSONE 20 MG TAB PO SCH (11:05)
[2017-11-14] VITALS (8 sets, daily range): BP systolic 123–136; BP diastolic 62–77; PULSE 77–96; RESP 18–20; TEMP 97.4–98; O2SAT 92–97
[2017-11-14] MEDS: metroNIDAZOLE 500 MG TAB PO SCH ×3 (04:54→20:03)
[2017-11-14] MEDS: BENZONATATE 100 MG CAP PO PRN ×3 (04:54→20:03)
[2017-11-14 07:41] LABS: AUTOMATED NEUTROPHIL # 5.8 TH/MM3 (1.8-7.7); BASOPHIL % 0.5 % (0.0-2.0); EOSINOPHIL % 0.2 % (0.0-4.0); HEMATOCRIT 27.8 % (39.0-51.0); HEMOGLOBIN 9.4 GM/DL (13.0-17.0); LYMPH % 28.4 % (9.0-44.0); LYMPHOCYTE # 2.5 TH/MM3 (1.0-4.8); MEAN CELL VOLUME 100.9 FL (80.0-100.0); MEAN CORPUSCULAR HGB CONC 33.7 % (32.0-36.0); MEAN PLATELET VOLUME 7.7 FL (7.0-11.0); MONO % 6.2 % (0.0-8.0); MONOCYTE # 0.5 TH/MM3 (0-0.9); NEUT % 64.7 % (16.0-70.0); PLATELET COUNT 306 TH/MM3 (150-450); RED BLOOD COUNT 2.76 MIL/MM3 (4.50-5.90); RED CELL DISTRIBUTION WIDTH 17.1 % (11.6-17.2); WHITE BLOOD COUNT 8.9 TH/MM3 (4.0-11.0)
[2017-11-14] MEDS: PRAVASTATIN SOD 40 MG TAB PO SCH (08:13)
[2017-11-14] MEDS: BUDESONIDE-FORMOTEROL 160/4.5 MCG INHALER INH SCH ×2 (08:13→20:04)
[2017-11-14] MEDS: LISINOPRIL 10 MG TAB PO SCH (08:13)
[2017-11-14] MEDS: THIAMINE HCL 100 MG TAB PO SCH (08:13)
[2017-11-14] MEDS: AZITHROMYCIN 250 MG TAB PO SCH (08:13)
[2017-11-14] MEDS: SODIUM CHLORIDE 0.9% FLUSH 10 ML FLUSH IV FLUSH SCH ×2 (08:13→20:05)
[2017-11-14] MEDS: FOLIC ACID 1 MG TAB PO SCH (08:13)
[2017-11-14] MEDS: MULTIVITAMINS/MINERALS THERAPEUTIC TAB PO SCH (08:13)
[2017-11-14] MEDS: predniSONE 20 MG TAB PO SCH (08:13)
[2017-11-14] MEDS: cefTRIAXone INJ 2,000 MG in SODIUM CHLORIDE 0.9% INJ 100 ML IV SCH (08:16)
[2017-11-14] MEDS: NICOTINE 21 MG/24 HR PATCH T-DERMAL SCH (08:16)
[2017-11-14] MEDS: RESP: ALBUTEROL 2.5 MG/IPRATROPIUM 0.5 MG NEB (SCH) INH ×3 (08:26→20:02)
[2017-11-14 08:27] LABS: BANDS 1 % (0-6); LYMPHOCYTES 23 % (9-44); MONOCYTES 8 % (0-8); MYELOCYTES 1 % (0-0); NEUTROPHIL # MANUAL DIFF 6.1 TH/MM3 (1.8-7.7); POLYS (SEG NEUTROPHILS) 67 % (16-70)
--- NOTE | 2017-11-14 12:59 | HHI.FPPN ---
Subjective Remarks Vitals stable overnight. Patient states that he is feeling better. Is coughing more frequently. Would like to stay 1 more night, is worried about how he will fare once he goes home. (Rama Lewis MD R1) Objective Vitals Vital Signs Date Time Temp Pulse Resp B/P (MAP) Pulse Ox O2 Delivery O2 Flow Rate FiO2 11/14/17 12:00 97.4 96 18 136/66 (89) 92 11/14/17 08:24 92 21 11/14/17 08:00 98.0 95 19 134/65 (88) 94 11/14/17 04:31 97.5 77 20 125/77 (93) 95 11/14/17 00:08 97.5 77 20 130/62 (84) 97 11/13/17 20:40 97.9 94 20 122/60 (80) 97 11/13/17 20:15 95 Nasal Cannula 1.00 11/13/17 20:10 89 11/13/17 16:00 97.2 85 16 124/62 (82) 95 I/O 11/13/17 11/13/17 11/13/17 11/14/17 11/14/17 11/14/17 07:00 15:00 23:00 07:00 15:00 23:00 Intake Total 780 ml 350 ml 1000 ml 780 ml 100 ml Output Total 1000 ml 800 ml 1500 ml Balance -220 ml 350 ml 200 ml -720 ml 100 ml Intake Oral 780 ml 900 ml 780 ml IV Total 350 ml 100 ml 100 ml Output Urine Total 1000 ml 800 ml 1500 ml # Bowel Movements 1 1 (Rama Lewis MD R1) Result Diagram: 11/14/17 0705 11/12/17 0539 Objective Remarks CONSTITUTIONAL/GEN: Middle aged male sitting up in bed. In no acute distress. LUNGS: Normal rate and effort. Diminished breath sounds bilaterally. Otherwise clear without crackles or wheezes. CARDIOVASCULAR: NRRR without murmur or gallop. GI/ABD: soft without masses, without organomegaly. NEURO: No focal deficits. SKIN: color normal, no rashes noted. Hot to touch, moist. MUSC: Extremities are normal in appearance. No edema. PSYCH/MENTAL STATUS: Alert, normal affect, conversant. (Rama Lewis MD R1) A/P Assessment and Plan This is a 62-year-old male with a history of COPD and alcoholism admitted with: Discharge Planning Plan for discharge tomorrow (Rama Lewis MD R1) Attending Attestation Case reviewed and discussed with the resident team. Agree with plan of care as discussed with me and documented in the resident note. (José Sepulveda MD) Problem List: (1) Pneumonia ICD Codes: J18.9 - Pneumonia, unspecified organism Status: Acute Plan: Symptoms improved Rocephin to 2 gm IV daily Continue azithromycin, flagyl PO prednisone 40 mg daily to complete 3 days total Duo nebs every 6 hours while awake Tessalon Pearls for coughing Continue home maintenance inhaler (2) Macrocytic anemia ICD Codes: D53.9 - Nutritional anemia, unspecified Plan: Stable MCV of 100 Differential: Alcoholism and/or malnutrition No symptoms to suggest GI bleed. H/H stable at 8.8 Trend H/H Multivitamin, thiamine, folate (3) COPD (chronic obstructive pulmonary disease) ICD Codes: J44.9 - Chronic obstructive pulmonary disease, unspecified Status: Acute Plan: Duo nebs every 6 hours while awake Convert home Advair to Symbicort twice daily May add albuterol every 2 hours as needed for shortness of breath Oxygen if needed (4) Alcoholism ICD Codes: F10.20 - Alcohol dependence, uncomplicated Plan: Rally pack and CIWA protocol Scores low so far (5) HTN (hypertension) ICD Codes: I10 - Essential (primary) hypertension Status: Chronic Plan: Continue home lisinopril 10 mg daily Can add clonidine if needed (6) Bilateral lower extremity edema ICD Codes: R60.0 - Localized edema Status: Resolved (7) FEN Plan: Fluids: PO Electrolytes: None Nutrition: Regular diet DVT prophylaxis: SCDs Continue lovastatin 40 mg p.o. daily for hypercholesterolemia (Rama Lewis MD R1) Problem Qualifiers (1) Pneumonia: Qualified Codes: J69.0 - Pneumonitis due to inhalation of food and vomit (2) COPD (chronic obstructive pulmonary disease): Qualified Codes: J44.9 - Chronic obstructive pulmonary disease, unspecified Rama Lewis MD R1 Nov 14, 2017 12:59 José Sepulveda MD Nov 15, 2017 07:26
[2017-11-14] MEDS: REMOVE OLD PATCH T-DERMAL SCH (20:05)
[2017-11-15] VITALS: BP 134/63; PULSE 76; RESP 18; TEMP 98.2; O2SAT 93
[2017-11-15 04:00] VITALS: BP 133/63; PULSE 74; RESP 18; TEMP 98; O2SAT 94
[2017-11-15] MEDS: metroNIDAZOLE 500 MG TAB PO SCH ×2 (05:18→13:11)
[2017-11-15] MEDS: BENZONATATE 100 MG CAP PO PRN ×2 (05:18→10:27)
[2017-11-15 08:00] VITALS: BP 138/71; PULSE 75; RESP 17; TEMP 98.1; O2SAT 92
[2017-11-15] MEDS: RESP: ALBUTEROL 2.5 MG/IPRATROPIUM 0.5 MG NEB (SCH) INH (08:16)
[2017-11-15 08:18] VITALS: O2SAT 93
[2017-11-15] MEDS: cefTRIAXone INJ 2,000 MG in SODIUM CHLORIDE 0.9% INJ 100 ML IV SCH (08:30)
[2017-11-15] MEDS: SODIUM CHLORIDE 0.9% FLUSH 10 ML FLUSH IV FLUSH SCH (08:30)
[2017-11-15] MEDS: PRAVASTATIN SOD 40 MG TAB PO SCH (08:31)
[2017-11-15] MEDS: MULTIVITAMINS/MINERALS THERAPEUTIC TAB PO SCH (08:31)
[2017-11-15] MEDS: FOLIC ACID 1 MG TAB PO SCH (08:31)
[2017-11-15] MEDS: AZITHROMYCIN 250 MG TAB PO SCH (08:31)
[2017-11-15] MEDS: LISINOPRIL 10 MG TAB PO SCH (08:31)
[2017-11-15] MEDS: NICOTINE 21 MG/24 HR PATCH T-DERMAL SCH (08:32)
[2017-11-15] MEDS: BUDESONIDE-FORMOTEROL 160/4.5 MCG INHALER INH SCH (08:32)
[2017-11-15] MEDS: THIAMINE HCL 100 MG TAB PO SCH (08:32)
[2017-11-15] MEDS ORDERED: AMOX875T2 PO (11:19)
--- NOTE | 2017-11-15 11:20 | HHI.DCPOC ---
Discharge Care Plan Diagnosis: (1) Pneumonia (2) COPD (chronic obstructive pulmonary disease) (3) Alcoholism Goals to Promote Your Health * To prevent worsening of your condition and complications * To maintain your health at the optimal level Directions to Meet Your Goals Take your medications as prescribed Follow your dietary instruction Follow activity as directed Keep your appointments as scheduled Take your immunizations and boosters as scheduled If your symptoms worsen call your PCP, if no PCP go to Urgent Care Center or Emergency Room Smoking is Dangerous to Your Health. Avoid second hand smoke Call the 24-hour hour crisis hotline for domestic abuse at Allen Vasquez MD R2 Nov 15, 2017 11:20
--- NOTE | 2017-11-15 11:24 | HHI.FPPN ---
Subjective Remarks 62 yo homeless male with COPD and alcohol abuse admitted for RML pneumonia. Today feels 90% better compared to coming to hospital. Cough improving. No longer feels feverish. Very mild SOB. (Allen Vasquez MD R2) Objective Vitals Vital Signs Date Time Temp Pulse Resp B/P (MAP) Pulse Ox O2 Delivery O2 Flow Rate FiO2 11/15/17 08:18 93 21 11/15/17 08:00 98.1 75 17 138/71 (93) 92 11/15/17 04:00 98.0 74 18 133/63 (86) 94 11/15/17 00:00 98.2 76 18 134/63 (86) 93 11/14/17 20:02 96 21 11/14/17 20:00 98.0 86 20 123/63 (83) 93 11/14/17 17:00 97.6 91 19 131/65 (87) 94 11/14/17 12:00 97.4 96 18 136/66 (89) 92 I/O 11/14/17 11/14/17 11/14/17 11/15/17 11/15/17 11/15/17 07:00 15:00 23:00 07:00 15:00 23:00 Intake Total 780 ml 100 ml 1150 ml 0 ml Output Total 1500 ml 1560 ml Balance -720 ml 100 ml -410 ml 0 ml Intake Oral 780 ml 1150 ml IV Total 100 ml 0 ml 0 ml Output Urine Total 1500 ml 1560 ml (Allen Vasquez MD R2) Result Diagram: 11/14/17 0705 11/12/17 0539 Imaging Last Impressions Chest X-Ray 11/13/17 0600 Signed Impressions: CONCLUSION: 1. Interval increase in consolidative infiltrate in the right perihilar region and right lung base 2. Volume loss and mediastinal shift to the right now noted with abnormal opac ity in the right paratracheal region which could indicate atelectasis or partia l collapse. Lower Extremity Ultrasound 11/11/17 0000 Signed Impressions: CONCLUSION: No evidence of deep venous thrombosis. Objective Remarks CONSTITUTIONAL/GEN: Middle aged male sitting up in bed. Comfortable. In no acute distress. LUNGS: Normal rate and effort. CTAB without crackles or wheezes. CARDIOVASCULAR: NRRR without murmur or gallop. GI/ABD: soft without masses, without organomegaly. NEURO: No focal deficits. SKIN: color normal, no rashes noted. Warm and dry. MUSC: Extremities are normal in appearance. No edema. PSYCH/MENTAL STATUS: Alert, normal affect, conversant. Medications and IVs Current Medications Medications (Trade) Dose Ordered Sig/Ashli Route Start Time Stop Time Status Last Admin (Prinivil) 10 mg DAILY PO 11/12/17 09:00 11/15/17 08:31 (Pravachol) 40 mg DAILY PO 11/12/17 09:00 11/15/17 08:31 (Symbicort 160-4.5 Mcg Inh) 2 puff BID INH 11/11/17 21:00 11/15/17 08:32 (NS Flush) 2 ml UNSCH PRN IV FLUSH 11/11/17 18:00 (NS Flush) 2 ml BID IV FLUSH 11/11/17 21:00 11/15/17 08:30 (Flagyl) 500 mg Q8H PO 11/11/17 20:00 11/15/17 05:18 (Duoneb Neb) 1 ampule Q6HR WHILE AWAKE NEB INH 11/11/17 18:00 11/15/17 08:16 (Tessalon) 200 mg TID PRN PO 11/11/17 18:00 11/15/17 10:27 (Habitrol 21 Mg Patch.24 Hr) 1 patch DAILY T-DERMAL 11/11/17 18:00 11/15/17 08:32 Miscellaneous Information 1 HS T-DERMAL 11/11/17 21:00 11/14/17 20:05 (Folate) 1 mg DAILY PO 11/11/17 18:00 11/16/17 17:59 11/15/17 08:31 (Vitamin B1) 100 mg DAILY PO 11/11/17 20:00 11/15/17 08:32 (Theragran M Tab) 1 tab DAILY PO 11/11/17 20:00 11/16/17 19:59 11/15/17 08:31 (Romazicon Inj) 0.2 mg Q1M PRN IV PUSH 11/11/17 18:00 (Ativan) 1 mg Q4H PRN PO 11/11/17 18:00 (Ativan Inj) 1 mg Q4H PRN IV PUSH 11/11/17 18:00 (Ativan) 2 mg Q2H PRN PO 11/11/17 18:00 (Ativan Inj) 2 mg Q2H PRN IV PUSH 11/11/17 18:00 (Ativan Inj) 2 mg Q1H PRN IV PUSH 11/11/17 18:00 (Ativan Inj) 2 mg Q15M PRN IV PUSH 11/11/17 18:00 (Haldol Inj) 2 mg Q15M PRN IM 11/11/17 18:00 (Zofran Odt) 4 mg Q4H PRN PO 11/11/17 18:00 (Albuterol Neb) 2.5 mg Q2HR NEB PRN NEB 11/11/17 19:15 (Catapres) 0.1 mg Q6H PRN PO 11/11/17 19:15 Ceftriaxone Sodium 2000 mg/ Sodium Chloride 100 ml @ 200 mls/hr Q24H IV 11/14/17 09:00 11/15/17 08:30 (Zithromax) 500 mg DAILY PO 11/14/17 09:00 11/15/17 08:31 (Allen Vasquez MD R2) A/P Assessment and Plan This is a 62-year-old male with a history of COPD and alcoholism admitted with: (Allen Vasquez MD R2) Attending Attestation Case reviewed and discussed with the resident team. Agree with plan of care as discussed with me and documented in the resident note. (José Sepulveda MD) Problem List: (1) Pneumonia ICD Codes: J18.9 - Pneumonia, unspecified organism Status: Acute Plan: Symptoms improved greatly, feels ready to go home Give Augmentin for 2 more days to complete 7 day course on D/C Completed 3 days steroid treatment Continue home maintenance inhaler (2) Macrocytic anemia ICD Codes: D53.9 - Nutritional anemia, unspecified Status: Chronic Plan: Stable MCV of 100 Differential: Alcoholism and/or malnutrition No symptoms to suggest GI bleed. H/H stable at 8.8 Trend H/H Multivitamin, thiamine, folate (3) COPD (chronic obstructive pulmonary disease) ICD Codes: J44.9 - Chronic obstructive pulmonary disease, unspecified Status: Chronic Plan: Continue schedule Symbicort, albuterol PRN (4) Alcoholism ICD Codes: F10.20 - Alcohol dependence, uncomplicated Plan: Advised to stop drinking (5) HTN (hypertension) ICD Codes: I10 - Essential (primary) hypertension Status: Chronic Plan: Continue home lisinopril 10 mg daily (6) FEN Plan: Fluids: PO Electrolytes: None Nutrition: Regular diet Continue lovastatin 40 mg p.o. daily for hypercholesterolemia Dispo: Home today (Allen Vasquez MD R2) Problem Qualifiers (1) Pneumonia: Qualified Codes: J69.0 - Pneumonitis due to inhalation of food and vomit (2) COPD (chronic obstructive pulmonary disease): Qualified Codes: J44.9 - Chronic obstructive pulmonary disease, unspecified Allen Vasquez MD R2 Nov 15, 2017 11:24 José Sepulveda MD Nov 16, 2017 17:06
== END 2017-11-15 13:49 | disposition home or self-care (01) | DRG 179 ==
LOC: NEPD 14:02 → NEDA 16:32 → N07B 21:25
PROVIDERS: ADMIT Family Medicine; ATTEND Family Medicine
DX: J69.0 Pneumonitis due to inhalation of food and vomit (principal); I10 Essential (primary) hypertension; J44.9 Chronic obstructive pulmonary disease, unspecified; D53.9 Nutritional anemia, unspecified; F10.20 Alcohol dependence, uncomplicated; F12.90 Cannabis use, unspecified, uncomplicated; F17.210 Nicotine dependence, cigarettes, uncomplicated; M79.669 Pain in unspecified lower leg; R20.0 Anesthesia of skin; R60.0 Localized edema; E78.00 Pure hypercholesterolemia, unspecified; Z59.0 Homelessness
CPT/HCPCS: 71045; 71046; 80048; 82550; 83605; 84145; 84484; 85007; 85025; 85027; 87040; 87186; 87205; 93005; 93970; 94150; 94640; 94664; 94667; 94668; 96361; 96365; J0456; J0696; J7050; J7512

== ENCOUNTER 2017-12-06 13:16 | Inpatient (IN) ==
[2017-12-06] MEDS ORDERED: Clindamycin 600 mg/NS Premix 600 MG/50 ML PIGGYBACK IV.SIG ONE (19:12)
[2017-12-06] MEDS ORDERED: Morphine Inj 4 MG/ML Vial IV.PUSH ONE ×2 (19:14→20:30)
--- NOTE | 2017-12-06 19:45 | US ---
EXAM DATE: 12/06/2017 7:39 PM EDT AGE/SEX: 62 years / Male INDICATIONS: Left leg swelling. CLINICAL DATA: This is the patient's subsequent encounter. Patient reports that signs and symptoms h ave been present for 1 week and indicates a pain score of 2/10. MEDICAL/SURGICAL HISTORY: . Hypercholesterolemia. Hypertension. Chronic obstructive pulmonary d isease. Right groin occlusive artery. Right foot cellulitis. . Tonsillectomy. Left hand. Right groin artery surgery. COMPARISON: [facility] [place] BILATERAL VENOUS [place]OPPLER, 11/11/2017. . TECHNIQUE: Venous ultrasound of both lower extremities was performed from the inguinal ligament to t he proximal calf. Real-time, color Doppler and spectral tracing, compression and augmentation techni ques were used. FINDINGS: Normal compression of the deep venous system from the inguinal region to the proximal calf . No echogenic clot is seen. Normal response of the venous system to augmentation and respiration. CONCLUSION: 1. The study is negative for lower extremity deep venous thrombosis. Electronically signed by: Minor Rosenthal MD 12/06/2017 7:44 PM EDT
--- NOTE | 2017-12-06 20:01 | XR ---
EXAM DATE: 12/06/2017 7:50 PM EDT AGE/SEX: 62 years / Male INDICATIONS: . Cough and shortness of breath. CLINICAL DATA: This is the patient's initial encounter. Patient reports that signs and symptoms have been present for 1 week and indicates a pain score of 0/10. MEDICAL/SURGICAL HISTORY: Chronic obstructive pulmonary disease. Hypertension. None. COMPARISON: [facility], CHEST SINGLE AP, 11/13/2017. [facility], CHEST PA & LAT, 11/12/2017. [facility], CHEST SINGLE AP, 11/11/2017. [facility], CHEST SINGLE AP, 11/07/2016. . FINDINGS: Interval change in the location of a dense area of consolidation, now located in the right upper lung extending to the apex, causing loss of delineation of the right superior mediastinal margin and supr ahilar region and stop previously noted infiltrate in the lateral right lung has resolved. No infiltr ates seen at the right base. The left lung is clear. There is mild tracheal deviation towards the rig ht suggesting some volume loss in the right upper lung. The heart is normal in size. Moderate degener ative changes in the thoracic spine. CONCLUSION: Prominent area of consolidation, changed in location when compared to 11/13/2017; new area of consolid ation in the right upper lung and cleared area of consolidation in the lateral right midlung. Electronically signed by: Minor Rosenthal MD 12/06/2017 8:00 PM EDT
[2017-12-06 20:19] LABS: Baso # (Auto) 0.1 th/mm3 (0.0-0.2); Baso % (Auto) 1.2 % (0.0-2.0); Eos # (Auto) 0.1 th/mm3 (0.0-0.4); Eos % (Auto) 1.9 % (0.0-4.0); Hematocrit 30.3 % (39.0-51.0); Hemoglobin 10.4 gm/dL (13.0-17.0); Lymph # (Auto) 2.1 th/mm3 (1.0-4.8); Lymph % (Auto) 32.7 % (9.0-44.0); Mean Corpuscular HGB Conc 34.2 % (32.0-36.0); Mean Corpuscular Hemoglobin 35.3 pg (27.0-34.0); Mean Corpuscular Volume 103.1 fL (80.0-100.0); Mean Platelet Volume 7.8 fL (7.0-11.0); Mono # (Auto) 0.7 th/mm3 (0.0-0.9); Mono % (Auto) 10.6 % (0.0-8.0); Neut # (Auto) 3.4 th/mm3 (1.8-7.7); Neut % (Auto) 53.6 % (16.0-70.0); Platelet Count 291 th/mm3 (150-450); Red Blood Count 2.94 mil/mm3 (4.50-5.90); Red Cell Distribution Width 17.7 % (11.6-17.2); White Blood Count 6.4 th/mm3 (4.0-11.0)
--- NOTE | 2017-12-06 20:24 | ED ---
HPI General Chief complaint: Skin/Abscess/Foreign Body Stated complaint: Swollen feet Time Seen by Provider: 12/06/17 19:01 Source: patient Mode of arrival: ambulatory Limitations: no limitations History of Present Illness HPI narrative: 62-year-old male the presents to the ED for evaluation of lower leg swelling and possible cellulitis. Per patient has had this for about 2 days now. Per patient the swelling to both lower legs. More to the left than the right. Per patient it started all of a sudden. No history of heart failure. Patient has a history of COPD and continues to smoke. He also has a history of arterial occlusion which was surgically fixed by Dr. Locke. Per patient he takes no blood thinners. He does take blood pressure medications. He uses inhalers at home. He states that currently he has no chest pain but he does feel somewhat short of breath at all does not his main complaint. Per patient his main complaint is the legs. He believes he has cellulitis on his left leg as well as his right leg. She denies any urinary or bowel movement issues. No cough or runny nose. No fevers chills or sweats. Per patient he is been having pain in the lower leg especially the right than the left. 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) Hyperlipemia (Acute) Hypertension (Acute) Social History Social History Smoking Status: Current every day smoker Tobacco Type: Cigarettes How Often Do You Have a Drink Containing Alcohol: 4 or more times a week Recent Travel in [facility] within the Last 8 Weeks: No Recent Out of Country Travel within the Last 8 Weeks: No Substance Abuse Detail Alcohol: Substance Use Status: Active Immunization History Tetanus Immunization: Unsure Hx Influenza Vaccine This Season: Yes Exam Narrative Exam Narrative: GENERAL: Somewhat disheveled but well-appearing otherwise SKIN: Focused skin assessment warm/dry. HEAD: Atraumatic. Normocephalic. EYES: Pupils equal and round. No scleral icterus. No injection or drainage. ENT: No nasal bleeding or discharge. Mucous membranes pink and moist. Tongue is midline. No uvula deviation. NECK: Trachea midline. No JVD. CARDIOVASCULAR: Regular rate and rhythm. No murmur appreciated. RESPIRATORY: No accessory muscle use. Patient does have wheezing on exam. Especially with expiration the lower field. Breath sounds equal bilaterally. GASTROINTESTINAL: Abdomen soft, non-tender, nondistended. Hepatic and splenic margins not palpable. MUSCULOSKELETAL: No obvious deformities. No clubbing. No cyanosis. No edema. Full range of motion of the upper and lower extremities bilaterally. 2+ pulses bilaterally. Patient does have lower leg edema more noted on the left than the right. Patient's left leg does appear to be warm to touch. Patient's right leg does appear to have some fullness to it but patient does appear to have 1+ palpated pulses as well as Doppler heard pulses on the right lower extremity. NEUROLOGICAL: Awake and alert. No obvious cranial nerve deficits. Motor grossly within normal limits. Normal speech. PSYCHIATRIC: Appropriate mood and affect; insight and judgment normal. Course Initial Documented Vital Signs Temperature 97.6 F 12/06/17 13:55 Pulse Rate 81 12/06/17 13:55 Respiratory Rate 19 12/06/17 13:55 Blood Pressure 121/58 L 12/06/17 13:55 Pulse Oximetry 99 12/06/17 13:55 Last Documented Vital Signs Temperature 97.6 F 12/06/17 13:55 Pulse Rate 77 12/06/17 22:48 Respiratory Rate 19 12/06/17 22:48 Blood Pressure 147/79 H 12/06/17 20:03 Pulse Oximetry 98 12/06/17 20:03 Medical Decision Making [facility] Narrative Medical decision making narrative: 62-year-old male the presents to the ED for evaluation of lower leg edema and possible cellulitis. Patient was properly examined and was found to have signs and symptoms consistent appears to be cellulitis versus DVT versus fluid overload versus arterial issue. Labs and imaging order. Patient was given IV pain medications. Labs and imaging showed no sign of DVT. Chest x-ray did show what appears to be moving consolidations. Unclear etiology of this. Because of this I did order CT of the chest to see what his consolations are as patient apparently has a new one. Patient was just admitted about less than a month ago for pneumonia and sepsis. CT did not show any sign of consolidation but an inflamed lymph node as well as what appears to be possible obstruction of the bronchial callusing right upper lobe obstruction with collapse of the right upper lobe. Radiology recommended bronchoscopy. Patient still short of breath. More meds given and solumedrol. My attending Dr Giordano agrees with plan and recommends admission. Differential Diagnosis Differential Diagnosis: Cellulitis versus DVT versus CHF versus COPD exacerbation Medical Records Medical records reviewed: Yes I reviewed the patient's medical records. Lab Data Lab results reviewed: Yes I reviewed the patient's lab results. Lab results narrative: BNP negative CRP WNL Result diagrams: 12/06/17 19:56 12/06/17 19:56 Lab Results 12/06/17 12/06/17 12/06/17 Range/Units 19:56 19:56 19:56 WBC 6.4 (4.0-11.0) th/mm3 RBC 2.94 L (4.50-5.90) mil/mm3 Hgb 10.4 L (13.0-17.0) gm/dL Hct 30.3 L (39.0-51.0) % MCV 103.1 H (80.0-100.0) fL MCH 35.3 H (27.0-34.0) pg MCHC 34.2 (32.0-36.0) % RDW 17.7 H (11.6-17.2) % Plt Count 291 (150-450) th/mm3 MPV 7.8 (7.0-11.0) fL Neut % (Auto) 53.6 (16.0-70.0) % Lymph % (Auto) 32.7 (9.0-44.0) % [place] % (Auto) 10.6 H (0.0-8.0) % Eos % (Auto) 1.9 (0.0-4.0) % Baso % (Auto) 1.2 (0.0-2.0) % Neut # (Auto) 3.4 (1.8-7.7) th/mm3 Lymph # (Auto) 2.1 (1.0-4.8) th/mm3 [place] # (Auto) 0.7 (0.0-0.9) th/mm3 Eos # (Auto) 0.1 (0.0-0.4) th/mm3 Baso # (Auto) 0.1 (0.0-0.2) th/mm3 WBC Differential . Differential Comment Auto diff final Sodium 139 (136-145) meq/L Potassium 3.8 (3.5-5.1) meq/L Chloride 104 (98-107) meq/L Carbon Dioxide 24.9 (21.0-32.0) meq/L Anion Gap 10 (5-15) meq/L BUN 5 L (7-18) mg/dL Creatinine 0.64 (0.60-1.30) mg/dL Estimated GFR Greater than 89 (>89) mL/min Random Glucose 90 (74-106) mg/dL Calcium 8.7 (8.5-10.1) mg/dL C-Reactive Protein 0.89 H (0.00-0.30) mg/dL B-Natriuretic Peptide 76 (0-100) pg/mL Imaging Data Attestation: I personally reviewed and interpreted this imaging study as follows : Radiologist's impression: Chest X-Ray 12/06/17 19:12 CONCLUSION: Prominent area of consolidation, changed in location when compared to 11/13/2017 ; new area of consolidation in the right upper lung and cleared area of consolidation in the lateral right midlung. Venous Doppler Study 12/06/17 19:12 CONCLUSION: 1. The study is negative for lower extremity deep venous thrombosis. Chest CT 12/06/17 20:06 CONCLUSION: 1. The dense area of consolidation seen on chest x-ray is due to collapse of the right upper lobe due to obstruction of the bronchus to the upper lobe. Recommend direct visualization with bronchoscopy. 2. Mildly prominent middle mediastinal lymph nodes are unchanged in appearance from prior CT in 2014. Stable substernal thyroid. Discharge Plan Physicians Team ED Provider: Marilu Giordano ED Midlevel Provider: Alfredo Barakat Primary Care Provider: Emi Stone Discharge Interventions Interventions: Vital Signs Last Done: 12/06/17 20:03 Status ED Status: With Doctor
[2017-12-06 20:33] LABS: Anion Gap 10 meq/L (5-15); Blood Urea Nitrogen 5 mg/dL (7-18); C-Reactive Protein 0.89 mg/dL (0.00-0.30); Calcium 8.7 mg/dL (8.5-10.1); Carbon Dioxide 24.9 meq/L (21.0-32.0); Chloride 104 meq/L (98-107); Glomerular Filtration Rate Greater Than 89 mL/min (>89); Glucose,Random 90 mg/dL (74-106); Potassium 3.8 meq/L (3.5-5.1); Sodium 139 meq/L (136-145)
--- NOTE | 2017-12-06 21:33 | CT ---
EXAM DATE: 12/06/2017 9:16 PM EDT AGE/SEX: 62 years / Male INDICATIONS: Shortness of breath, evaluate for mass. CLINICAL DATA: This is the patient's initial encounter. Patient reports that signs and symptoms have been present for 1 day and indicates a pain score of 3/10. MEDICAL/SURGICAL HISTORY: None. None. RADIATION DOSE: 7.95 CTDI (mGy) COMPARISON: [facility], CT CHEST W AND W/O CONTRAST, 01/31/2015. [facility], CHEST 1V SINGLE AP, 12/06/2017. [facility], CHEST SINGLE AP, 11/13/2017. . TECHNIQUE: Multiple contiguous axial images were obtained through the chest during bolus infusion of 75 ml Omnipaque 350 (iohexol) nonionic water-soluble contrast as a single exam dose. Images were obtained in suspended respiration using multiple row detector helical technique. Using automated exp osure control and adjustment of the mA and/or kV according to patient size, radiation dose was kept a s low as reasonably achievable to obtain optimal diagnostic quality images. DICOM format image data is available electronically for review and comparison. FINDINGS: The examination was performed to characterize a new area of dense consolidation in the right upper [place] ng is developed in the past month. The opacity in the right upper lung is due to collapsed lung witho ut air bronchograms. There is truncation of the bronchus to the right upper lobe without definite jono dence of enhancing mass. There is also a small right pleural effusion which measures less than 1.7 cm . Left lung is clear. There are a few enlarged middle mediastinal lymph nodes measuring up to 1.6 cm, u nchanged from prior CT in 2014. Coronary artery calcifications. Substernal thyroid similar to prior.. . CONCLUSION: 1. The dense area of consolidation seen on chest x-ray is due to collapse of the right upper lobe du e to obstruction of the bronchus to the upper lobe. Recommend direct visualization with bronchoscopy. 2. Mildly prominent middle mediastinal lymph nodes are unchanged in appearance from prior CT in 2014 . Stable substernal thyroid. Electronically signed by: Minor Rosenthal MD 12/06/2017 9:32 PM EDT
[2017-12-06] MEDS ORDERED: MethylPREDNISolone Sod Succinate Inj 125 MG/2 ML Vial IV.PUSH ONE (22:35)
[2017-12-06] MEDS ORDERED: Acetaminophen 325 MG Tablet PO PRN (23:36)
--- NOTE | 2017-12-06 23:36 | P.HPIM ---
History of Present Illness Primary Care Physician: Emi Stone Chief Complaint: left foot pain History of Present Illness: 62 y/o with a history of htn, copd, and hld presented to the ED with complaints of pain to his left foot. Patient states the pain is a constant burning, 8/10 to right foot with radiation to his calf with no associated symptoms. He denies any chest pain, fever or chills. Patient was recently admitted for pneumonia and states he is still having shortness of breath. CT of the chest was completed and patient was found to have a dense area of consolidation due to collapse of the right upper lobe due to obstruction of the bronchus to the upper lobe. Patient does not think he swallowed a foreign object that he can remember. Inpatient Certification: I certify that the inpatient services were ordered in accordance with Medicare regulations governing the order. This includes certification that hospital inpatient services are reasonable and necessary and in the case of services not specified as inpatient-only under 42 CFR 419.22(n), that they are appropriately provided as inpatient services in accordance to with the 2-midnight benchmark under 43 CFR 412.3(e) Estimated Total Length of Stay (Days): 2 Plans for Post Hospital Care: Home Review of Systems All other systems reviewed negative except as stated in HPI [facility] - History History Provided By: Patient - Medical History Medical History: Medical History (Last Reviewed 12/06/17 @ 20:20 by DIDIER Billy) COPD (chronic obstructive pulmonary disease) Hyperlipemia Hypertension - Surgical History Surgical History: Surgical History (Last Updated 12/06/17 @ 23:52 by MARQUISE Lemus) 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 - Tobacco History Tobacco Use In Past 30 Days: Yes Smoking Status: Current every day smoker Tobacco Type: Cigarettes - Alcohol History How Often Do You Have a Drink Containing Alcohol: 4 or more times a week - Substance Use Type Alcohol Status: Active - Travel History Recent Travel in the [place] Within the Last 8 Weeks: No Recent Travel Out of the Country Within the Last 8 Weeks: No - Immunization History Tetanus Immunization: Unsure Hx Influenza Vaccine This Season: Yes Medications and Allergies Allergies Allergy/AdvReac Type Severity Reaction Status Date / Time codeine AdvReac Severe N&V Verified 12/06/17 20:13 Exam Vital signs: Vital Signs 12/06/17 13:55 12/06/17 19:15 12/06/17 19:25 Temperature 97.6 F Pulse Rate 81 68 72 Respiratory Rate 19 Blood Pressure 121/58 L Pulse Oximetry 99 12/06/17 20:03 12/06/17 22:48 12/06/17 22:58 Temperature Pulse Rate 73 77 77 Respiratory Rate 18 Blood Pressure 147/79 H Pulse Oximetry 98 Intake & Output 12/06/17 12/06/17 12/07/17 06:59 18:59 06:59 Weight 74.843 kg - Constitutional no acute distress - Routine HEENT Exam Head: Present: normocephalic Eye: Present: EOMI, PERRL - Routine Neck Exam Present: supple. Absent: JVD - Routine Respiratory Exam Present: rhonchi. Absent: accessory muscle use, stridor, wheezes Comments: Scattered rhonchi throughout worse on right - Routine Cardiovascular Exam Present: RRR. Absent: murmur, gallop - Routine Abdominal Exam Present: soft, normoactive bowel sounds. Absent: tenderness, distended - Routine Extremities Exam Present: edema, pulses intact Comments: Left foot - Routine Skin Exam Present: erythema, warm Comments: left foot - Routine Neurological Exam Present: alert, oriented X3 Results - Labs CBC & Chem 7: 12/06/17 19:56 12/06/17 19:56 Labs: Short CBC 12/06/17 Range/Units 19:56 WBC 6.4 (4.0-11.0) th/mm3 Hgb 10.4 L (13.0-17.0) gm/dL Hct 30.3 L (39.0-51.0) % Plt Count 291 (150-450) th/mm3 BMP 12/06/17 19:56 Sodium 139 Potassium 3.8 Chloride 104 Carbon Dioxide 24.9 BUN 5 L Creatinine 0.64 Calcium 8.7 - Imaging Impressions Chest X-Ray 12/06/17 19:12 CONCLUSION: Prominent area of consolidation, changed in location when compared to 11/13/2017 ; new area of consolidation in the right upper lung and cleared area of consolidation in the lateral right midlung. Venous Doppler Study 12/06/17 19:12 CONCLUSION: 1. The study is negative for lower extremity deep venous thrombosis. Chest CT 12/06/17 20:06 CONCLUSION: 1. The dense area of consolidation seen on chest x-ray is due to collapse of the right upper lobe due to obstruction of the bronchus to the upper lobe. Recommend direct visualization with bronchoscopy. 2. Mildly prominent middle mediastinal lymph nodes are unchanged in appearance from prior CT in 2015. Stable substernal thyroid. Caprini VTE Risk Assessment Caprini VTE Risk Assessment: Moderate/High Risk (score >= 2) Caprini Risk Assessment Model: Point Value = 1 Point Value = 2 Point Value = 3 Point Value = 5 Age 41-60 Minor surgery BMI > 25 kg/m2 Swollen legs Varicose veins or History of unexplained or recurrent spontaneous Oral contraceptives or hormone replacement Sepsis (< 1 month) Serious lung disease, including pneumonia (< 1 month) Abnormal pulmonary function Acute myocardial infarction Congestive heart failure (< 1 month) History of inflammatory bowel disease Medical patient at bed rest Age 61-74 Arthroscopic surgery Major open surgery (> 45 min) Laparoscopic surgery (> 45 min) Malignancy Confined to bed (> 72 hours) Immobilizing plaster cast Central venous access Age >= 75 History of VTE Family history of VTE Factor V Leiden Prothrombin [id number] Lupus anticoagulant Anticardiolipin antibodies Elevated serum homocysteine Heparin-induced thrombocytopenia Other congenital or acquired thrombophilia Stroke (< 1 month) Elective arthroplasty Hip, pelvis, or leg fracture Acute spinal cord injury (< 1 month) Prophylaxis Regimen: Total Risk Factor Score Risk Level Prophylaxis Regimen 0-1 Low Early ambulation 2 Moderate Order ONE of the following: *Sequential Compression Device (SCD) *Heparin 5000 units SQ BID 3-4 Higher Order ONE of the following medications: *Heparin 5000 units SQ TID *Enoxaparin/Lovenox 40 mg SQ daily (WT < 150 kg, CrCl > 30 mL/min) *Enoxaparin/Lovenox 30 mg SQ daily (WT < 150 kg, CrCl > 10-29 mL/min) *Enoxaparin/Lovenox 30 mg SQ BID (WT < 150 kg, CrCl > 30 mL/min) AND/OR *Sequential Compression Device (SCD) 5 or more Highest Order ONE of the following medications: *Heparin 5000 units SQ TID (Preferred with Epidurals) *Enoxaparin/Lovenox 40 mg SQ daily (WT < 150 kg, CrCl > 30 mL/min) *Enoxaparin/Lovenox 30 mg SQ daily (WT < 150 kg, CrCl > 10-29 mL/min) *Enoxaparin/Lovenox 30 mg SQ BID (WT < 150 kg, CrCl > 30 mL/min) AND *Sequential Compression Device (SCD) Assessment and Plan - Plan Cellulitis, left foot CRP .89 Ultrasound negative for DVT -Cont Clindamycin IV -CBC in AM -Pain management with IV morphine Bronchial obstruction Chest CT reviewed and shows dense area of consolidation seen on chest x-ray is due to collapse of the right upper lobe due to obstruction of the bronchus to the upper lobe. -Consult pulmonology for eval for a bronchoscopy -Duonebs -Oxygen as needed -NPO HTN, chronic -Resume home medications when med rec is complete -Monitor vitals -PRNs if needed DVT prophylaxis: SCDs on non affected leg Discussed Condition With: Patient and RN
[2017-12-07] MEDS: Morphine Inj 4 MG/ML Vial IV.PUSH PRN ×8 (01:11→20:56)
[2017-12-07] MEDS ORDERED: Clindamycin 600 mg/NS Premix 600 MG/50 ML PIGGYBACK IV.SIG SCH (06:00)
[2017-12-07 09:00] LABS: Baso % (Auto) 0.1 % (0.0-2.0); Hematocrit 27.7 % (39.0-51.0); Hemoglobin 9.5 gm/dL (13.0-17.0); Lymph # (Auto) 0.3 th/mm3 (1.0-4.8); Mean Corpuscular HGB Conc 34.2 % (32.0-36.0); Mean Corpuscular Hemoglobin 35.2 pg (27.0-34.0); Mono % (Auto) 0.9 % (0.0-8.0); Neut # (Auto) 3.6 th/mm3 (1.8-7.7); Platelet Count 276 th/mm3 (150-450); Red Blood Count 2.69 mil/mm3 (4.50-5.90); Red Cell Distribution Width 17.7 % (11.6-17.2); White Blood Count 3.9 th/mm3 (4.0-11.0)
[2017-12-07 09:25] LABS: Anion Gap 13 meq/L (5-15); Blood Urea Nitrogen 5 mg/dL (7-18); Calcium 8.7 mg/dL (8.5-10.1); Carbon Dioxide 21.5 meq/L (21.0-32.0); Chloride 104 meq/L (98-107); Glomerular Filtration Rate Greater Than 89 mL/min (>89); Glucose,Random 167 mg/dL (74-106); Potassium 3.9 meq/L (3.5-5.1); Sodium 138 meq/L (136-145)
[2017-12-07] MEDS: Lisinopril 10 MG Tablet PO SCH (11:52)
--- NOTE | 2017-12-07 12:08 | P.PN ---
Subjective Interval history: Mr. Garcia is a 62-year-old male with a history of hypertension, COPD who presented to the emergency department on 12/06/2017 due to left foot pain. He reported constant burning 8 out of 10 left foot pain with radiation to his calf area. He also complained of shortness of breath. He recently was admitted to the hospital for pneumonia. In the emergency department a CT chest was done which showed a dense area of consolidation due to collapse of the right upper lobe due to obstruction of the bronchus. Bronchoscopy was recommended. Left lower extremity Doppler study was negative for DVT. Left foot pain -No evidence of erythema. No leukocytosis, fever. -Will discontinue clindamycin that was a started for cellulitis. -We will obtain left foot x-ray. If significant, will consider podiatry consultation. Right upper lobe bronchus obstruction -Pulmonology consulted. Patient will likely need bronchoscopy. -No immediate plan to do bronchoscopy. Will start patient on a regular diet. -DuoNeb as needed Hypertension Hyperlipidemia -Continue lisinopril 10 mg daily. Continue statin. Full code. Lovenox for DVT prophylaxis. Physical Exam Vital signs: Vital Signs 12/06/17 13:55 12/06/17 19:15 12/06/17 19:25 Temperature 97.6 F Pulse Rate 81 68 72 Respiratory Rate Blood Pressure 121/58 L Pulse Oximetry 99 12/06/17 20:03 12/06/17 22:48 12/06/17 22:58 Temperature Pulse Rate 73 77 77 Respiratory Rate 18 Blood Pressure 147/79 H Pulse Oximetry 98 12/07/17 00:00 12/07/17 04:00 12/07/17 08:00 Temperature 97.6 F 98.3 F Pulse Rate 87 86 85 Respiratory Rate 18 Blood Pressure 124/85 129/73 123/60 Pulse Oximetry 94 L 95 94 L Intake & Output 12/06/17 12/07/17 12/07/17 18:59 06:59 18:59 Output Total 300 / 300 Balance -300 / -300 Weight 74.843 kg Output: Urine 300 / 300 Results - Labs CBC & Chem 7: 12/07/17 07:20 12/07/17 07:20 Laboratory Results - last 24 hr 12/06/17 12/06/17 12/06/17 19:56 19:56 19:56 WBC 6.4 RBC 2.94 L Hgb 10.4 L Hct 30.3 L MCV 103.1 H MCH 35.3 H MCHC 34.2 RDW 17.7 H Plt Count 291 MPV 7.8 Neut % (Auto) 53.6 Lymph % (Auto) 32.7 [place] % (Auto) 10.6 H Eos % (Auto) 1.9 Baso % (Auto) 1.2 Neut # (Auto) 3.4 Lymph # (Auto) 2.1 [place] # (Auto) 0.7 Eos # (Auto) 0.1 Baso # (Auto) 0.1 WBC Differential . Differential Comment Auto diff final Sodium 139 Potassium 3.8 Chloride 104 Carbon Dioxide 24.9 Anion Gap 10 BUN 5 L Creatinine 0.64 Estimated GFR Greater than 89 Random Glucose 90 Calcium 8.7 C-Reactive Protein 0.89 H B-Natriuretic Peptide 76 12/07/17 12/07/17 07:20 07:20 WBC 3.9 L RBC 2.69 L Hgb 9.5 L Hct 27.7 L MCV 103.0 H MCH 35.2 H MCHC 34.2 RDW 17.7 H Plt Count 276 MPV 8.0 Neut % (Auto) 92.0 H Lymph % (Auto) 7.0 L [place] % (Auto) 0.9 Eos % (Auto) 0.0 Baso % (Auto) 0.1 Neut # (Auto) 3.6 Lymph # (Auto) 0.3 L [place] # (Auto) 0.0 Eos # (Auto) 0.0 Baso # (Auto) 0.0 WBC Differential . Differential Comment Auto diff final Sodium 138 Potassium 3.9 Chloride 104 Carbon Dioxide 21.5 Anion Gap 13 BUN 5 L Creatinine 0.74 Estimated GFR Greater than 89 Random Glucose 167 H Calcium 8.7 C-Reactive Protein B-Natriuretic Peptide - Imaging Impressions Chest X-Ray 12/06/17 19:12 CONCLUSION: Prominent area of consolidation, changed in location when compared to 11/13/2017 ; new area of consolidation in the right upper lung and cleared area of consolidation in the lateral right midlung. Venous Doppler Study 12/06/17 19:12 CONCLUSION: 1. The study is negative for lower extremity deep venous thrombosis. Chest CT 12/06/17 20:06 CONCLUSION: 1. The dense area of consolidation seen on chest x-ray is due to collapse of the right upper lobe due to obstruction of the bronchus to the upper lobe. Recommend direct visualization with bronchoscopy. 2. Mildly prominent middle mediastinal lymph nodes are unchanged in appearance from prior CT in 2015. Stable substernal thyroid.
[2017-12-07] MEDS: Enoxaparin Inj 40 MG/0.4 ML Syringe SQ SCH (12:31)
--- NOTE | 2017-12-07 14:24 | XR ---
EXAM DATE: 12/07/2017 1:49 PM EDT AGE/SEX: 62 years / Male INDICATIONS: Pain and swelling on entire foot since yesterday. No known injury. CLINICAL DATA: This is the patient's subsequent encounter. Patient reports that signs and symptoms h ave been present for 2 days and indicates a pain score of 5/10. MEDICAL/SURGICAL HISTORY: . Hypercholesterolemia. Hypertension. Chronic obstructive pulmonary d isease. Right groin occlusive artery. Right foot cellulitis. . . Tonsillectomy. Left hand. Right ambar in artery surgery. COMPARISON: No prior exams available for comparison. FINDINGS: Bony structures are intact and in normal alignment. There are some mild degenerative changes involvin g the PIP and DIP joints. Osseous density is normal. Soft tissues are unremarkable. No radiopaque f oreign bodies seen. Tiny heel spur on the calcaneus. CONCLUSION: Mild degenerative changes involving the PIP and DIP joints. Tiny heel spur. Otherwise, unremarkable e xam for patient's age. Electronically signed by: David Rodriguez MD 12/07/2017 2:22 PM EDT
--- NOTE | 2017-12-07 14:30 | P.DIET ---
Nutritional Evaluation Type of nutrition evaluation: initial Nutrition screening: Weight Loss > 10 lbs Screening comments: Pt reports weight loss is d/t being homeless. Subjective Subjective Comments: Eating 100%. Objective - Diagnosis R upper lung obstruction, Lower Leg edema - Objective % IBW: 103 (IBW = 160#) Body Weight Used for Calculations: Actual (74.8) Energy Needs - Lower Range (kCal/kg): 25 Energy Needs - Upper Range (kCal/kg): 30 Lower Limit kCal/kg (kCals): 1,871 Upper Limit kCal/kg (kCals): 2,245 Lower Limit Protein Factor (Grams per Kg): 1.0 Upper Limit Protein Factor (Grams per Kg): 1.5 Lower Protein Needs (Protein): 75 Upper Protein Needs (Protein): 112 Fluid Factor (ml/kg): 30 Estimated Fluid Needs (ml): 2,245 Dietitian Reviewed in Medical Record: Current diet, Curent medications, Intake & Output, Labs, Medical history Diet Order: Regular Objective Comments: glu 167 Assessment Assessment: Pt is at high nutrition risk 2' to dx and unintentional weight loss. PO intake is currently good. For added nutrition, will send SF Ariannay Shakes on trays and monitor acceptance. each 6 oz serving provides 200 kcals and 7 gms protein. Will send sugar free d/t elevated glucose. Recommendations: 1. Continue current diet 2. SF Ariannay Shakes tid Dietitian to Monitor: Lab values, Glucose level, Supplement acceptance, Intake & Output, Diet tolerance, Weight change, PO Intake, Medical course
--- NOTE | 2017-12-07 19:29 | MB ---
cc: Isaias Miranda MD, Arjun D MD DATE: 12/07/2017 REQUESTING PHYSICIAN: Dr. Shayla Wilson REASON FOR CONSULTATION: Evaluation for lung density. HISTORY OF PRESENT ILLNESS: Mr. Garcia is a 62-year-old male who is now homeless. He was living with a friend who lost his home. He has a history of COPD, nicotine use, marijuana use, and alcohol use. He came to the hospital with swelling in his left foot and pain in the leg, which was going on for some time and pain was intense. He did not have any fever or chills. He has cough with congestion, small amount of sputum production. No fever or chills. No night sweats. The patient was evaluated in the emergency room. He had a workup done. His CBC showed WBC count 27. hemoglobin 9.5, hematocrit 27.1, MCV 103, platelet count 273. Sodium 138, potassium 3.9, chloride 104, CO2 of 21, BUN 5, creatinine 0.75. He had a CT scan of the chest done, which shows that he has a dense area of consolidation with collapse of the right upper lobe due to obstruction of the bronchus to the right upper lobe and mildly prominent mediastinal lymph node. PAST MEDICAL HISTORY: Significant for history of COPD, hypertension, hyperlipidemia, history of cellulitis of the foot. MEDICATIONS: 1. Lovenox 40 mg a day. 2 Lisinopril 10 mg a day 3. Morphine IV p.r.n. 4. Potassium 40 mg a day 5. Uses antibiotic clindamycin ALLERGIES: ALLERGIC TO CODEINE. 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 Drinks about 6 beers a day. Uses marijuana. FAMILY HISTORY: He is homeless, has 1 child. REVIEW OF SYSTEMS: Normally he is up, around and active. Has swelling in his leg. No seizures, stroke or epilepsy. No DVT or pulmonary embolism. PHYSICAL EXAMINATION: GENERAL: Reveals a well-built, well-nourished male, mildly short of breath, not in any acute distress. VITAL SIGNS: Blood pressure 119/66, heart rate 86, respirations 16, temperature 98.2. HEENT: Pupils are equal and reactive to light. Oral mucosa and nasal mucosa normal. NECK: Supple. JVP not raised. CHEST: He has rhonchi. HEART: S1, S2 are normal. ABDOMEN: Soft, nondistended. Bowel sounds are present. EXTREMITIES: No edema. CENTRAL NERVOUS SYSTEM: Alert and oriented x3. No focal deficit. IMPRESSION: 1. Right upper lobe obstruction, likely collapse of the lung. Need to rule out endobronchial lesion. 2. Chronic obstructive pulmonary disease with mild exacerbation. 3. Cellulitis. 4. Hypertension. 5. Nicotine use 6. Alcohol use. 7. Patient is homeless. PLAN: I discussed with the patient will need bronchoscopy. I explained to him the procedure and the complications, including complication of anesthesia, pneumothorax requiring chest tube, bleeding complication, injury to the blood vessel, lungs, nerves, arrhythmia, hypoxia and nondiagnostic biopsy. He understands well and wants to proceed with it. I will also give him IV Solu-Medrol, clindamycin 600 mg q.8 hours, aerosol treatment. Further treatment will depend on the course in the hospital. Thank you, Dr. Shayla Wilson, for this consult. MD CLAUDE Gaffney/ , 07:07 PM , 07:28 PM
[2017-12-07] MEDS: MethylPREDNISolone Sod Succinate Inj 40 MG/ML Vial IV.PUSH SCH (20:39)
[2017-12-07] MEDS: Clindamycin 600 mg/NS Premix 600 MG/50 ML PIGGYBACK IV.SIG SCH (20:40)
[2017-12-08] MEDS: Morphine Inj 4 MG/ML Vial IV.PUSH PRN ×6 (01:37→23:34)
[2017-12-08] MEDS: MethylPREDNISolone Sod Succinate Inj 40 MG/ML Vial IV.PUSH SCH ×4 (01:37→22:30)
[2017-12-08] MEDS: Clindamycin 600 mg/NS Premix 600 MG/50 ML PIGGYBACK IV.SIG SCH ×2 (04:28→11:14)
[2017-12-08 07:00] LABS: Activated Partial Thrombo Time 25.3 sec (24.3-30.1)
[2017-12-08] MEDS ORDERED: Chlorhexidine Gluconate 2% 1 Pack (2 Cloths) TOPICAL SCH (08:45)
[2017-12-08] MEDS ORDERED: Metoprolol Tartrate 25 MG Tablet PO SCH (08:45)
[2017-12-08] MEDS ORDERED: Sodium Chlor 0.9% Inj 500 ML IV.SIG SCH (09:00)
[2017-12-08] MEDS: Lisinopril 10 MG Tablet PO SCH (10:07)
--- NOTE | 2017-12-08 10:52 | P.PN ---
Subjective Interval history: Follow-up for right bronchus obstruction. Patient is currently doing well. On room air. No fever or chills. Bronchoscopy planned for today. Physical Exam Vital signs: Vital Signs 12/07/17 12:00 12/07/17 16:00 12/07/17 20:00 Temperature 97.5 F L 98.2 F 97.4 F L Pulse Rate 83 86 89 Respiratory Rate 17 16 18 Blood Pressure 135/65 119/66 95/51 L Pulse Oximetry 95 94 L 96 12/07/17 20:31 12/07/17 22:00 12/08/17 00:00 Temperature 98 F 98.0 F Pulse Rate 91 H 84 84 Respiratory Rate 20 18 18 Blood Pressure 117/60 117/60 Pulse Oximetry 95 95 12/08/17 04:00 12/08/17 08:00 Temperature 98.8 F 98.8 F Pulse Rate 74 95 H Respiratory Rate 17 20 Blood Pressure 126/60 150/70 H Pulse Oximetry 92 L 96 Intake & Output 12/07/17 12/08/17 12/08/17 18:59 06:59 18:59 Intake Total 720 / 720 500 / 500 Output Total 800 / 800 Balance 720 / 720 -300 / -300 Weight 79.2 kg Intake: IV 100 / 100 Cleocin 600 mg/NS Premix 600 mg 100 / 100 In 50 ml @ 100 mls/hr IV.SIG Q8H IAN Rx#:[id number] Oral 720 / 720 400 / 400 Output: Urine 800 / 800 Other: # Voids 600 # Bowel Movements 0 Narrative: GENERAL: Alert, oriented 3, NAD. SKIN: Warm and dry. HEAD: Normocephalic. EYES: No scleral icterus. No injection or drainage. NECK: Supple, trachea midline. No JVD or lymphadenopathy. CARDIOVASCULAR: Regular rate and rhythm without murmurs, gallops, or rubs. RESPIRATORY: Breath sounds equal bilaterally. No accessory muscle use. GASTROINTESTINAL: Abdomen soft, non-tender, nondistended. MUSCULOSKELETAL: No cyanosis, or edema. BACK: Nontender without obvious deformity. No CVA tenderness. Results - Labs CBC & Chem 7: 12/07/17 07:20 12/07/17 07:20 Laboratory Results - last 24 hr 12/08/17 05:30 PT 10.0 INR 1.0 APTT 25.3 - Imaging Impressions Foot X-Ray 12/07/17 00:00 CONCLUSION: Mild degenerative changes involving the PIP and DIP joints. Tiny heel spur. Otherwise, unremarkable exam for patient's age. Assessment and Plan - Plan Mr. Garcia is a 62-year-old male with a history of hypertension, COPD who presented to the emergency department on 12/06/2017 due to left foot pain. He reported constant burning 8 out of 10 left foot pain with radiation to his calf area. He also complained of shortness of breath. He recently was admitted to the hospital for pneumonia. In the emergency department a CT chest was done which showed a dense area of consolidation due to collapse of the right upper lobe due to obstruction of the bronchus. Bronchoscopy was recommended. Left lower extremity Doppler study was negative for DVT. Left foot pain -No evidence of erythema. No leukocytosis, fever. -Left foot x-ray shows no acute findings. Right upper lobe bronchus obstruction -Pulmonology consulted. Patient will likely undergo bronchoscopy today 2017. -DuoNeb as needed Hypertension Hyperlipidemia -Continue lisinopril 10 mg daily. Continue statin. Full code. Lovenox for DVT prophylaxis.
--- NOTE | 2017-12-08 14:41 | P.PNPL ---
Subjective Interval history: 62 YOWM with COPD,Nicotine use with SOB CT chest RUL collapse no hemoptysis had lost weight Physical Exam Vital signs: Vital Signs 12/07/17 16:00 12/07/17 20:00 12/07/17 20:31 Temperature 98.2 F 97.4 F L Pulse Rate 86 89 91 H Respiratory Rate 16 18 20 Blood Pressure 119/66 95/51 L Pulse Oximetry 94 L 96 12/07/17 22:00 12/08/17 00:00 12/08/17 04:00 Temperature 98 F 98.0 F 98.8 F Pulse Rate 84 84 74 Respiratory Rate 18 18 17 Blood Pressure 117/60 117/60 126/60 Pulse Oximetry 95 95 92 L 12/08/17 08:00 12/08/17 12:00 Temperature 98.8 F 98.5 F Pulse Rate 95 H 71 Respiratory Rate 20 20 Blood Pressure 150/70 H 133/78 Pulse Oximetry 96 94 L Intake & Output 12/07/17 12/08/17 12/08/17 18:59 06:59 18:59 Intake Total 720 / 720 500 / 500 Output Total 800 / 800 Balance 720 / 720 -300 / -300 Weight 79.2 kg Intake: IV 100 / 100 Cleocin 600 mg/NS Premix 600 mg 100 / 100 In 50 ml @ 100 mls/hr IV.SIG Q8H IAN Rx#:[id number] Oral 720 / 720 400 / 400 Output: Urine 800 / 800 Other: # Voids 600 # Bowel Movements 0 GENERAL: MBMN,NAD SKIN: Warm and dry. HEAD: Normocephalic. EYES: No scleral icterus. No injection or drainage. NECK: Supple, trachea midline. No JVD or lymphadenopathy. CARDIOVASCULAR: Regular rate and rhythm without murmurs, gallops, or rubs. RESPIRATORY: Breath sounds equal bilaterally. No accessory muscle use. GASTROINTESTINAL: Abdomen soft, non-tender, nondistended. MUSCULOSKELETAL: No cyanosis, or edema. BACK: Nontender without obvious deformity. No CVA tenderness. Assessment and Plan - Plan IMPRESSION: 1. Right upper lobe obstruction, likely collapse of the lung. Need to rule out endobronchial lesion. 2. Chronic obstructive pulmonary disease with mild exacerbation. 3. Cellulitis. 4. Hypertension. 5. Nicotine use 6. Alcohol use. 7. Patient is homeless. PLAN: BASILIO Pt Explained procedure and possible complications Agrees for bronch Will send for cultures, cytology and Path.
[2017-12-08] MEDS ORDERED: fentaNYL Citrate Inj 100 MCG/2 ML Ampul ONE (15:30)
--- NOTE | 2017-12-08 15:56 | XR ---
EXAM DATE: 12/08/2017 3:51 PM EDT AGE/SEX: 62 years / Male INDICATIONS: Post bronchoscopy right side. CLINICAL DATA: This is the patient's initial encounter. Patient reports that signs and symptoms have been present for 1 day and indicates a pain score of 0/10. MEDICAL/SURGICAL HISTORY: Chronic obstructive pulmonary disease. Hypertension. None. COMPARISON: [facility] [place], CT CHEST W CONTRAST, 12/06/2017. . FINDINGS: A single AP view of the chest demonstrates persistent collapse of the right upper lobe. Left lung is clear. No effusions. Heart is normal in size. No pneumothorax. No pneumomediastinum. CONCLUSION: Unchanged collapse of the right upper lobe. Electronically signed by: Minor Vizcarra MD 12/08/2017 3:54 PM EDT
--- NOTE | 2017-12-08 16:25 | MP ---
cc: Isaias Miranda MD DATE OF OPERATION: 12/08/2017 PROCEDURE PERFORMED: Bronchoscopy. PREOPERATIVE DIAGNOSIS: Atelectasis of the right lung. POSTOPERATIVE DIAGNOSIS: Obstructing mass into the right upper lobe. INDICATION FOR PROCEDURE: Informed consent was obtained from the patient, procedure and the complications, including complication of anesthesia, pneumothorax requiring chest tube, bleeding complication, injury to the blood vessel, lungs, nerves, arrhythmia, hypoxia were explained and he consented for the procedure. DESCRIPTION OF PROCEDURE: The patient was brought to the endoscopy suite, under general anesthesia, endotracheal tube was placed by anesthesiologist. Bronchoscopy done via the endotracheal tube. Main princess is sharp. Bronchoscope was advanced to the left lung. Left upper, middle and lower lobe all were visualized. Small amount of clear mucus was suctioned. Then, bronchoscope pulled back and advanced to the right lung. There was obstructing mass in the right upper lobe. Right lower lobe, right middle lobe are normal. The mass is very friable and it starts bleeding even by pouring on it. It took me 15 minutes to control the bleeding after suctioning on him. We used cold saline and epinephrine lavage to control the bleeding. After the bleeding was stopped, the procedure was terminated. Biopsy of brushings were not done because of the excessive bleeding and the vascular nature of the tumor. Bronchial washing was sent for routine culture, AFB, fungal culture and cytology. Post-procedure chest x-ray ordered to rule out pneumothorax. MD CLAUDE Gaffney/LIZ , 03:10 PM , 04:23 PM
[2017-12-08] MEDS: Enoxaparin Inj 40 MG/0.4 ML Syringe SQ SCH (22:29)
[2017-12-09] MEDS: MethylPREDNISolone Sod Succinate Inj 40 MG/ML Vial IV.PUSH SCH ×4 (02:53→21:04)
[2017-12-09] MEDS: Morphine Inj 4 MG/ML Vial IV.PUSH PRN ×7 (02:53→23:59)
[2017-12-09] MEDS: Lisinopril 10 MG Tablet PO SCH (08:18)
--- NOTE | 2017-12-09 10:18 | P.PN ---
Subjective Interval history: Follow-up for right bronchus obstruction, likely malignancy. Patient is doing well. No fever, chills. On room air. He has [employer] medicaid and apparently has help with transportation. Physical Exam Vital signs: Vital Signs 12/08/17 12:00 12/08/17 15:25 12/08/17 15:30 Temperature 98.5 F 97.8 F Pulse Rate 71 90 74 Respiratory Rate 20 16 16 Blood Pressure 133/78 119/67 122/69 Pulse Oximetry 94 L 97 100 12/08/17 15:45 12/08/17 16:00 12/08/17 20:00 Temperature 97.8 F 97.5 F L Pulse Rate 70 77 92 H Respiratory Rate 16 18 Blood Pressure 114/57 L 131/75 118/57 L Pulse Oximetry 95 98 97 12/09/17 00:00 12/09/17 07:22 12/09/17 08:00 Temperature 98 F 97.4 F L 97.4 F L Pulse Rate 80 89 66 Respiratory Rate 18 18 18 Blood Pressure 108/62 128/72 126/70 Pulse Oximetry 93 L 97 93 L Intake & Output 12/08/17 12/09/17 12/09/17 18:59 06:59 18:59 Intake Total 638 / 638 Output Total 600 / 600 600 / 600 Balance 38 / 38 -600 / -600 Weight 79 kg Intake: Oral 638 / 638 Output: Urine 600 / 600 600 / 600 Narrative: GENERAL: Alert, oriented 3, NAD. SKIN: Warm and dry. HEAD: Normocephalic. EYES: No scleral icterus. No injection or drainage. NECK: Supple, trachea midline. No JVD or lymphadenopathy. CARDIOVASCULAR: Regular rate and rhythm without murmurs, gallops, or rubs. RESPIRATORY: Moderate air entry. No accessory muscle use. GASTROINTESTINAL: Abdomen soft, non-tender, nondistended. MUSCULOSKELETAL: No cyanosis, or edema. BACK: Nontender without obvious deformity. No CVA tenderness. Results - Labs CBC & Chem 7: 12/07/17 07:20 12/07/17 07:20 Microbiology 12/08/17 14:50 Bronchial Washings - Right Upper Lobe Fungal Smear - Final No fungal elements seen 12/08/17 14:50 Bronchial - Right Upper Lobe Gram Stain - Final - Imaging Impressions Chest X-Ray 12/08/17 15:07 CONCLUSION: Unchanged collapse of the right upper lobe. Assessment and Plan - Plan Mr. Garcia is a 62-year-old male with a history of hypertension, COPD who presented to the emergency department on 12/06/2017 due to left foot pain. He reported constant burning 8 out of 10 left foot pain with radiation to his calf area. He also complained of shortness of breath. He recently was admitted to the hospital for pneumonia. In the emergency department a CT chest was done which showed a dense area of consolidation due to collapse of the right upper lobe due to obstruction of the bronchus. Bronchoscopy was recommended. Left lower extremity Doppler study was negative for DVT. Left foot pain -No evidence of erythema. No leukocytosis, fever. -Left foot x-ray shows no acute findings. Right upper lobe bronchus obstruction Probable post-obstructive pneumonia -Pulmonology consulted. Patient had bronchoscopy 12/08/2017. Bronch findings are very concerning for malignancy. -Discussed with Dr. Miranda. We consulted Oncology. -Will also start patient on Augmentin empirically for post-obstructive PNA. -Currently on room air. -DuoNeb as needed Hypertension Hyperlipidemia -Continue lisinopril 10 mg daily. Continue statin. Full code. Lovenox on hold due to friable mass found on bronch. Continue ambulation for DVT prophylaxis. Discharge plan: If Oncology feels that rest of the work up can be done in the outpatient setting, we will d/c patient home.
[2017-12-09] MEDS: Amoxicillin/Clavulanate 875/125 MG Tablet PO SCH ×2 (11:56→21:06)
--- NOTE | 2017-12-09 18:14 | P.PNPL ---
Subjective Interval history: 62 YOWM with COPD,Nicotine use with SOB CT chest RUL collapse no hemoptysis had lost weight No new complaint Physical Exam Vital signs: Vital Signs 12/08/17 20:00 12/09/17 00:00 12/09/17 07:22 Temperature 97.5 F L 98 F 97.4 F L Pulse Rate 92 H 80 89 Respiratory Rate 18 18 18 Blood Pressure 118/57 L 108/62 128/72 Pulse Oximetry 97 93 L 97 12/09/17 08:00 12/09/17 12:00 12/09/17 15:05 Temperature 97.4 F L 98.0 F Pulse Rate 66 91 H 95 H Respiratory Rate 18 14 14 Blood Pressure 126/70 130/60 Pulse Oximetry 93 L 94 L 12/09/17 16:00 Temperature 97.8 F Pulse Rate 100 H Respiratory Rate 18 Blood Pressure 112/59 L Pulse Oximetry 93 L Intake & Output 12/08/17 12/09/17 12/09/17 18:59 06:59 18:59 Intake Total 638 / 638 Output Total 600 / 600 600 / 600 300 / 300 Balance 38 / 38 -600 / -600 -300 / -300 Weight 79 kg Intake: Oral 638 / 638 Output: Urine 600 / 600 600 / 600 300 / 300 Other: # Bowel Movements 1 GENERAL: MBMN ,NAD SKIN: Warm and dry. HEAD: Normocephalic. EYES: No scleral icterus. No injection or drainage. NECK: Supple, trachea midline. No JVD or lymphadenopathy. CARDIOVASCULAR: Regular rate and rhythm without murmurs, gallops, or rubs. RESPIRATORY: Breath sounds equal bilaterally. No accessory muscle use. GASTROINTESTINAL: Abdomen soft, non-tender, nondistended. MUSCULOSKELETAL: No cyanosis, or edema. BACK: Nontender without obvious deformity. No CVA tenderness. Assessment and Plan - Plan IMPRESSION: 1. Right upper lobe obstruction, likely collapse of the lung. Need to rule out endobronchial lesion. 2. Chronic obstructive pulmonary disease with mild exacerbation. 3. Cellulitis. 4. Hypertension. 5. Nicotine use 6. Alcohol use. 7. Patient is homeless. PLAN: DW Pt Cont Abx Aerosol nebs Check bronch results
--- NOTE | 2017-12-09 18:57 | P.CON ---
History of Present Illness Service: Hematology/oncology Consult date: 12/09/17 Primary Care Provider: Emi Stone Chief Complaint: Suspected mass in right upper lobe mainstem bronchus. History of Present Illness: Mr. 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 He is now disabled. He tells me he is homeless, he had previously lived with friends who were evicted which landed him on the streets. The patient has no children of his own, he has never been and tells me he has no contact with any relatives. The patient reports having been a one pack a day smoker for close to 45 years, he also tells me he drinks 6-8 cans of beer daily and has been drinking like that for about 35 years. Patient reports having developed symptoms of progressive cough associated with wheezing and thick white phlegm production. He denies fevers or chills but does report having increasing difficulty breathing. About 3 weeks ago he came into this facility with the symptoms, chest x-ray was done and he was informed he had pneumonia. He was put on antibiotics but his symptoms did not improve. Of note the patient denies having had hemoptysis or pleuritic chest pain. Because the symptoms persisted he came back into [facility] on 12/06/2017; chest x-ray was performed this revealed prominent area of consolidation involving the right upper lobe. CT scan of the thorax was performed as well with IV contrast on 12/06/2017 this revealed an area of dense consolidation secondary to collapse of the right upper lobe of the lung. There appeared to be in obstruction of the right upper lobe bronchus. Mildly prominent middle mediastinal lymph nodes were also identified. The patient was evaluated by Dr. Miranda of pulmonology and direct visualization with bronchoscopy was recommended. The patient underwent bronchoscopy on 2017, procedure note indicates an obstructing mass in the right upper lobe mainstem bronchus. The right middle and lower lobe bronchi were noted to be normal. The mass was biopsied, it was noted to be friable and bled copiously. Cytology was submitted and pathologic results are pending at this time. The oncology service is been asked to see him to assist with continuity of care and further management. Review of Systems Constitutional: Reports weight loss, Denies anorexia, Denies chills, Denies daytime sleepiness, Denies excessive sweating Eyes: Denies blind spots, Denies blurry vision Ears, Nose, Mouth, and Throat: Reports change in voice, Denies abnormal hearing , Denies dental pain, Denies difficulty swallowing, Denies dizziness, Denies dry mouth Cardiovascular: Reports shortness of breath, Denies chest pain Respiratory: Reports change in phlegm color, Reports cough, Reports shortness of breath, Reports wheezing, Denies coughing up blood Gastrointestinal: Denies abdominal pain, Denies black, tarry stools, Denies bright, red blood in stools, Denies heartburn Genitourinary: Denies blood in urine, Denies decreased urination Musculoskeletal: Denies abnormal walking, Denies back pain, Denies body aches Skin/Breast: Denies lesions, Denies skin ulcer, Denies sores Neurologic: Denies abnormal hearing Psychiatric: Reports anxiety, Denies abnormal sleep pattern, Denies behavioral changes, Denies hopelessness Endocrine: Denies cold intolerance Hematologic/Lymphatic: Denies easy bleeding Allergic/Immunologic: Denies GI upset with certain foods PMFSH - History History Provided By: Patient - Medical History Medical History: Medical History (Last Updated 12/09/17 @ 18:52 by Franklin Kovacs MD) Alcohol abuse COPD (chronic obstructive pulmonary disease) Homelessness Hyperlipemia Hypertension Tobacco abuse - Surgical History Surgical History: Surgical History (Last Reviewed 12/07/17 @ 09:39 by Dionne Lema) 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 - Tobacco History Tobacco Use In Past 30 Days: Yes Smoking Status: Current every day smoker Tobacco Type: Cigarettes Packs Per Day: 1 years: 35 - Alcohol History How Often Do You Have a Drink Containing Alcohol: 4 or more times a week ( Reports drinking 6-8 beers daily.) - Substance Use Type Alcohol Status: Active - Travel History Recent Travel in the [place] Within the Last 8 Weeks: No Recent Travel Out of the Country Within the Last 8 Weeks: No - Immunization History Tetanus Immunization: Unsure Hx Influenza Vaccine This Season: Yes Medications and Allergies Active Medications: Active Medications Acetaminophen (Tylenol) 650 mg PO Q4H PRN PRN Reason: Temp > 100.4 Albuterol (Duoneb Neb (Prn)) 1 ampul NEB Q4HR NEB PRN PRN Reason: DYSPNEA Last Admin: 12/09/17 15:03 Dose: 1 ampul Amoxicillin/Clavulanate Potassium (Augmentin 875/125 Mg) 1 tab PO Q12HR [facility] Last Admin: 12/09/17 11:56 Dose: 1 tab Chlorhexidine Gluconate (Chlorhexidine 2% Cloth) 3 pack 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 [facility] Stop: 12/11/17 08:35 Enoxaparin Sodium (Lovenox Inj) 40 mg SQ DAILY [facility] Last Admin: 12/08/17 22:29 Dose: Not Given Lactated Ringer's (Lr 1000 Ml Inj) 1,000 mls @ 30 mls/hr IV.SIG .Q24H [facility] Stop: 12/11/17 08:35 Last Admin: 12/09/17 08:19 Dose: Not Given Sodium Chloride (Ns Inj) 500 mls @ 30 mls/hr IV.SIG .Q10H [facility] Stop: 12/11/17 08:35 Lisinopril (Prinivil) 10 mg PO DAILY [facility] Last Admin: 12/09/17 08:18 Dose: 10 mg Methylprednisolone Sodium Succinate (Solumedrol Inj) 40 mg IV.PUSH Q6H [facility] Last Admin: 12/09/17 14:49 Dose: 40 mg Metoprolol Tartrate (Lopressor) 25 mg PO 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 [facility] Stop: 12/11/17 08:35 Morphine Sulfate (Morphine Inj) 2 mg IV.PUSH Q3H PRN PRN Reason: PAIN SCALE 1 TO 10 Last Admin: 12/09/17 18:18 Dose: 2 mg Nicotine (Habitrol 14 Mg Patch.24 Hr) 1 patch T-DERMAL DAILY [facility] Last Admin: 12/09/17 11:56 Dose: 1 patch Ondansetron HCl (Zofran Inj) 4 mg IV.PUSH Q6H PRN PRN Reason: NAUSEA OR VOMITING Povidone Iodine (Betadine 5% Antisepsis Kit) 1 applicatio EACH NARE [employer]KEIN [employer]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 [facility] Stop: 12/11/17 08:35 Pravastatin Sodium (Pravachol) 40 mg PO HS [facility] Last Admin: 12/08/17 20:36 Dose: 40 mg Allergies Allergy/AdvReac Type Severity Reaction Status Date / Time codeine AdvReac Severe N&V Verified 12/06/17 20:13 Home Medications Medication Instructions Recorded Confirmed Type albuterol sulfate [ProAir HFA] 2 puff INHALATION Q6H PRN 12/07/17 12/07/17 History fluticasone-salmeterol [Advair 250 mg INHALATION QID 12/07/17 12/07/17 History Diskus] lisinopril 10 mg PO DAILY 12/07/17 12/07/17 History lovastatin 40 mg PO DAILY 12/07/17 12/07/17 History Physical Exam Vital signs: Vital Signs 12/08/17 20:00 12/09/17 00:00 12/09/17 07:22 Temperature 97.5 F L 98 F 97.4 F L Pulse Rate 92 H 80 89 Respiratory Rate 18 18 18 Blood Pressure 118/57 L 108/62 128/72 Pulse Oximetry 97 93 L 97 12/09/17 08:00 12/09/17 12:00 12/09/17 15:05 Temperature 97.4 F L 98.0 F Pulse Rate 66 91 H 95 H Respiratory Rate 18 14 14 Blood Pressure 126/70 130/60 Pulse Oximetry 93 L 94 L 12/09/17 16:00 Temperature 97.8 F Pulse Rate 100 H Respiratory Rate 18 Blood Pressure 112/59 L Pulse Oximetry 93 L Intake & Output 12/08/17 12/09/17 12/09/17 18:59 06:59 18:59 Intake Total 638 / 638 Output Total 600 / 600 600 / 600 300 / 300 Balance 38 / 38 -600 / -600 -300 / -300 Weight 79 kg Intake: Oral 638 / 638 Output: Urine 600 / 600 600 / 600 300 / 300 Other: # Bowel Movements 1 - Constitutional no acute distress, disheveled, cooperative - Routine HEENT Exam Head: Present: normocephalic, atraumatic Eye: Present: EOMI, PERRL ENT: Absent: mucous membranes moist - Routine Neck Exam Present: supple, full ROM. Absent: JVD, carotid bruit, normal carotid upstroke , lymphadenopathy, swelling - Routine Respiratory Exam Present: rales, wheezes, crackles. Absent: accessory muscle use, patient mechanically ventilated Comments: Bronchial breath sounds of the right upper lobe. Good air movement over the left lung. Overall prolonged expiratory phase. - Routine Cardiovascular Exam Present: RRR, S1, S2 - Routine Abdominal Exam Present: soft, normoactive bowel sounds. Absent: tenderness, distended, rebound , guarding - Routine Skin Exam Present: intact - Routine Neurological Exam Present: alert, oriented X3, CN II-XII intact - Detailed Neurological Exam: Coma Scale Eye Opening: Spontaneous - Routine Psychiatric Exam Present: normal affect Assessment and Plan - Assessment (1) Endobronchial mass Code(s): R91.8 - Other nonspecific abnormal finding of lung field Status: Acute Plan: Mass identified within the right upper lobe mainstem bronchus on bronchoscopy on 12/08/2017. This lesion was noted to be friable and was biopsied; pathology is pending at this time. On CT imaging dated 12/06/2017 the entire right upper lobe appears to have collapsed secondary to proximal airway obstruction secondary to this mass. CT imaging reveals no definite evidence of mediastinal lymphadenopathy, comment was made on mildly prominent middle mediastinal lymph nodes but these appear to be unchanged from scans performed in 2015. I would like to wait pathology results. We will obtain CT abdomen pelvis to rule out distal metastatic disease. Outpatient follow-up with myself will be arranged in the upcoming days. - Plan 1. Await pathology. 2. Obtain CT imaging of the abdomen pelvis to rule out distal metastases.
--- NOTE | 2017-12-09 20:51 | CT ---
EXAM DATE: 12/09/2017 8:24 PM EDT AGE/SEX: 62 years / Male INDICATIONS: Upper abdominal pain. CLINICAL DATA: This is the patient's initial encounter. Patient reports that signs and symptoms have been present for 2 days and indicates a pain score of 5/10. MEDICAL/SURGICAL HISTORY: Hypertension. Chronic obstructive pulmonary disease. Peripheral art katelyn disease. ETOH abuse None. ORAL CONTRAST: No oral contrast ingested. RADIATION DOSE: 15.28 CTDI (mGy) COMPARISON: [facility] [place], CT ABDOMEN & PELVIS W CONTRAST, 04/06/2011. C, CT ABDOMEN & PELVIS W/O CONTR AST, 12/31/2015. [facility], CTA AORTA W/ RUNOFF, 11/28/2017. . TECHNIQUE: Multiple contiguous axial images were obtained through the abdomen and pelvis following b olus infusion of 90 ml Omnipaque 350 (iohexol) nonionic water-soluble contrast as a single exam dos e. No oral contrast ingested. Using automated exposure control and adjustment of the mA and/or kV ac cording to patient size, radiation dose was kept as low as reasonably achievable to obtain optimal di agnostic quality images. DICOM format image data is available electronically for review and comparis on. FINDINGS: Lower Lungs: Small right pleural effusion measuring 3 cm in AP dimension. No infiltrates seen. Liver: The liver has a homogeneous density without space-occupying lesion. There is no dilation of th e biliary tree. The gallbladder is contracted and contains 3 small calcified stones. Spleen: Homogeneous density without enlargement. Pancreas: Unremarkable without mass or calcification. Kidneys: Normal in size and shape. No evidence of mass or hydronephrosis. Adrenal Glands: Unremarkable. Aorta: The aorta and proximal iliac vessels are grossly unremarkable without aneurysmal dilation. Bowel/Mesentery: No dilated loops of small or large bowel. Numerous diverticula in the sigmoid colon without radiographic evidence of diverticulitis. Abdominal Wall: Intact. Retroperitoneum: No evidence of adenopathy in the retrocrural, para-aortic, or deep pelvic regions. Bladder: Contours are smooth. Reproductive Organs: No abnormal masses or calcifications seen. Inguinal: The inguinal region is unremarkable without evidence of adenopathy. Bony Structures: Unremarkable. CONCLUSION: 1. Multiple calcified gallstones in a contracted gallbladder. The gallstones were present on previou s CTs, but the contraction of the gallbladder is a new finding. 2. Sigmoid diverticulosis without radiographic evidence of diverticulitis. 3. Small to moderate size right pleural effusion. Electronically signed by: Minor Rosenthal MD 12/09/2017 8:50 PM EDT
[2017-12-10] MEDS: MethylPREDNISolone Sod Succinate Inj 40 MG/ML Vial IV.PUSH SCH ×2 (02:00→08:04)
[2017-12-10] MEDS: Morphine Inj 4 MG/ML Vial IV.PUSH PRN ×2 (04:42→07:41)
[2017-12-10] MEDS: Amoxicillin/Clavulanate 875/125 MG Tablet PO SCH (08:03)
[2017-12-10] MEDS: Lisinopril 10 MG Tablet PO SCH (08:04)
[2017-12-10 10:01] VITALS: BP 143/69; PULSE 75; RESP 14; TEMP 97.8; O2SAT 94
--- NOTE | 2017-12-10 12:34 | P.DS ---
Date of admission: 12/06/17 22:46 Primary care physician: Emi Stone Brief History from admission: 62 y/o with a history of htn, copd, and hld presented to the ED with complaints of pain to his left foot. Patient states the pain is a constant burning, 8/10 to right foot with radiation to his calf with no associated symptoms. He denies any chest pain, fever or chills. Patient was recently admitted for pneumonia and states he is still having shortness of breath. CT of the chest was completed and patient was found to have a dense area of consolidation due to collapse of the right upper lobe due to obstruction of the bronchus to the upper lobe. Patient does not think he swallowed a foreign object that he can remember. DS: Medications - Discharge Medications Prescriptions: amoxicillin-pot clavulanate 1 tab PO Q12HR #20 tab DS: Summary Hospital Course: Mr. Garcia is a 62-year-old male with a history of hypertension, COPD who presented to the emergency department on 12/06/2017 due to left foot pain. He reported constant burning 8 out of 10 left foot pain with radiation to his calf area. He also complained of shortness of breath. He recently was admitted to the hospital for pneumonia. In the emergency department a CT chest was done which showed a dense area of consolidation due to collapse of the right upper lobe due to obstruction of the bronchus. Bronchoscopy was recommended. Left lower extremity Doppler study was negative for DVT. Left foot pain -No evidence of erythema. No leukocytosis, fever. -Left foot x-ray shows no acute findings. Right upper lobe bronchus obstruction - likely lung cancer Probable post-obstructive pneumonia -Pulmonology consulted. Patient had bronchoscopy 12/08/2017. Bronch findings are very concerning for malignancy. -Discussed with Dr. Miranda. We consulted Oncology who recommended outpatient follow up. -Oncology obtained CT abd/pelvis - did not show any evidence of mets. -Augmentin empirically for post-obstructive PNA. -Currently on room air. -DuoNeb as needed Hypertension Hyperlipidemia -Continue lisinopril 10 mg daily. Continue statin. Full code. - Time Spent with Patient Total time spent providing and/or coordinating discharge services: Exam Vital signs: Vital Signs 12/09/17 15:05 12/09/17 16:00 12/09/17 22:43 Temperature 97.8 F 97.6 F Pulse Rate 95 H 100 H 85 Respiratory Rate 14 18 18 Blood Pressure 112/59 L 129/67 Pulse Oximetry 93 L 94 L 12/10/17 00:00 12/10/17 04:00 12/10/17 06:06 Temperature 98.7 F 98 F Pulse Rate 80 67 Respiratory Rate 18 18 18 Blood Pressure 133/65 140/73 Pulse Oximetry 93 L 96 12/10/17 08:00 Temperature 97.8 F Pulse Rate 75 Respiratory Rate 14 Blood Pressure 143/69 H Pulse Oximetry 94 L Intake & Output 12/09/17 12/10/17 12/10/17 18:59 06:59 18:59 Output Total 300 / 300 700 / 700 Balance -300 / -300 -700 / -700 Weight 79 kg 79 kg Output: Urine 300 / 300 700 / 700 Other: # Bowel Movements 1 Narrative: GENERAL: Alert, oriented 3, NAD. SKIN: Warm and dry. HEAD: Normocephalic. EYES: No scleral icterus. No injection or drainage. NECK: Supple, trachea midline. No JVD or lymphadenopathy. CARDIOVASCULAR: Regular rate and rhythm without murmurs, gallops, or rubs. RESPIRATORY: Moderate air entry. No accessory muscle use. GASTROINTESTINAL: Abdomen soft, non-tender, nondistended. MUSCULOSKELETAL: No cyanosis, or edema. BACK: Nontender without obvious deformity. No CVA tenderness. Results Procedures completed during hospitalization: Bronchoscopy Pending studies at discharge: Pending at discharge 12/08/17 Cytology [PTH] Routine - Impressions ITS Impressions Venous Doppler Study 12/06/17 19:12 CONCLUSION: 1. The study is negative for lower extremity deep venous thrombosis. Chest CT 12/06/17 20:06 CONCLUSION: 1. The dense area of consolidation seen on chest x-ray is due to collapse of the right upper lobe due to obstruction of the bronchus to the upper lobe. Recommend direct visualization with bronchoscopy. 2. Mildly prominent middle mediastinal lymph nodes are unchanged in appearance from prior CT in 2014. Stable substernal thyroid. Foot X-Ray 12/07/17 00:00 CONCLUSION: Mild degenerative changes involving the PIP and DIP joints. Tiny heel spur. Otherwise, unremarkable exam for patient's age. Chest X-Ray 12/08/17 15:07 CONCLUSION: Unchanged collapse of the right upper lobe. Abdomen/Pelvis CT 12/09/17 00:00 CONCLUSION: 1. Multiple calcified gallstones in a contracted gallbladder. The gallstones were present on previous CTs, but the contraction of the gallbladder is a new finding. 2. Sigmoid diverticulosis without radiographic evidence of diverticulitis. 3. Small to moderate size right pleural effusion. Discharge Plan - Discharge Disposition Patient Disposition: 01 Discharge Home - Discharge Condition Condition: Good - Discharge Order Discharge Orders: Discharge Order (Routine); Ordered 12/10/17 Ordered By: Shayla Wilson - Discharge Details Anticipated Discharge Date: 12/10/17 Discharge Comment: Pt will need a ride or bus pass. - Physicians Team Primary Care Provider: Emi Stone Attending Provider: Shayla Wilson Other Providers: Isaias Miranda MD ; Franklin Kovacs MD
== END 2017-12-10 12:00 | disposition home or self-care (01) ==
LOC: NEPC 13:16 → NEDA 22:46 → N05 12-07 02:07
PROVIDERS: ADMIT Hospitalist; ATTEND Hospitalist
DX: K57.90 Diverticulosis of intestine, part unspecified, without perforation or abscess without bleeding; C34.11 Malignant neoplasm of upper lobe, right bronchus or lung; F17.200 Nicotine dependence, unspecified, uncomplicated; J98.11 Atelectasis; J18.8 Other pneumonia, unspecified organism; Z59.0 Homelessness; J44.1 Chronic obstructive pulmonary disease with (acute) exacerbation; L03.116 Cellulitis of left lower limb; E78.5 Hyperlipidemia, unspecified; J44.9 Chronic obstructive pulmonary disease, unspecified; K80.80 Other cholelithiasis without obstruction; I10 Essential (primary) hypertension

== ENCOUNTER 2017-12-26 08:55 | Inpatient (IN) ==
[2017-12-26] MEDS ORDERED: Heparin 10,000 UNITS/10 ML Vial (for IV use) ONE ×2 (09:12→11:44)
[2017-12-26] MEDS ORDERED: Protamine Sulfate Inj 50 MG/5 ML Vial ONE (09:12)
[2017-12-26] MEDS ORDERED: Bupivacaine PF 0.5% Inj 30 ML Vial ONE (09:13)
[2017-12-26] MEDS ORDERED: Thrombin Topical 20,000 UNIT Spray Kit TOPICAL ONE (09:13)
[2017-12-26] MEDS ORDERED: Heparin/NS PF Inj 0 ML ONE (09:13)
[2017-12-26] MEDS ORDERED: Chlorhexidine Gluconate 2% 1 Pack (2 Cloths) TOPICAL SCH (09:30)
[2017-12-26] MEDS ORDERED: Metoprolol Tartrate 25 MG Tablet PO SCH (09:30)
[2017-12-26 09:53] LABS: Baso # (Auto) 0.1 th/mm3 (0.0-0.2); Baso % (Auto) 1.1 % (0.0-2.0); Eos # (Auto) 0.1 th/mm3 (0.0-0.4); Eos % (Auto) 1.3 % (0.0-4.0); Hematocrit 31.6 % (39.0-51.0); Hemoglobin 10.9 gm/dL (13.0-17.0); Lymph # (Auto) 1.3 th/mm3 (1.0-4.8); Lymph % (Auto) 23.8 % (9.0-44.0); Mean Corpuscular HGB Conc 34.4 % (32.0-36.0); Mean Corpuscular Hemoglobin 34.1 pg (27.0-34.0); Mean Corpuscular Volume 99.2 fL (80.0-100.0); Mean Platelet Volume 8.7 fL (7.0-11.0); Mono # (Auto) 0.5 th/mm3 (0.0-0.9); Mono % (Auto) 9.1 % (0.0-8.0); Neut # (Auto) 3.5 th/mm3 (1.8-7.7); Neut % (Auto) 64.7 % (16.0-70.0); Platelet Count 205 th/mm3 (150-450); Red Blood Count 3.19 mil/mm3 (4.50-5.90); Red Cell Distribution Width 16.9 % (11.6-17.2); White Blood Count 5.4 th/mm3 (4.0-11.0)
[2017-12-26] MEDS ORDERED: Sodium Chlor 0.9% Inj 500 ML IV.SIG SCH (10:00)
[2017-12-26 10:16] LABS: Anion Gap 11 meq/L (5-15); Blood Urea Nitrogen 9 mg/dL (7-18); Calcium 8.8 mg/dL (8.5-10.1); Carbon Dioxide 25.3 meq/L (21.0-32.0); Chloride 101 meq/L (98-107); Glomerular Filtration Rate Greater Than 89 mL/min (>89); Glucose,Random 95 mg/dL (74-106); Potassium 3.8 meq/L (3.5-5.1); Sodium 137 meq/L (136-145)
--- NOTE | 2017-12-26 11:20 | P.HPVS ---
History of Present Illness Chief Complaint: R LE claudication History of Present Illness: 62 yo male with R LE claudication s/p R groin reconstruction with FV. No rest pain. Presents for R LE angiogram and potential endovascular intervention. - Inpatient Certification If this patient has been admitted as an Inpatient: I certify that the inpatient services were ordered in accordance with Medicare regulations governing the order. This includes certification that hospital inpatient services are reasonable and necessary and in the case of services not specified as inpatient-only under 42 CFR 419.22(n), that they are appropriately provided as inpatient services in accordance to with the 2-midnight benchmark under 43 CFR 412.3(e) Estimated Total Length of Stay (Days): 2 Plans for Post Hospital Care: Home Review of Systems Constitutional: Denies chills, Denies fatigue Respiratory: Reports chest congestion, Reports cough, Reports excessive phlegm production PMFSH - History History Provided By: Patient - Medical History Medical History: Medical History (Last Reviewed 12/26/17 @ 11:18 by Lisandro Locke MD) Alcohol abuse COPD (chronic obstructive pulmonary disease) Femoral artery occlusion, right H/O chronic pancreatitis Homelessness Hyperlipemia Hypertension MRSA (methicillin resistant Staphylococcus aureus) Tobacco abuse - Surgical History Surgical History: Surgical History (Last Reviewed 12/26/17 @ 11:18 by Lisandro Locke MD) 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 H/O hand surgery History of tonsillectomy Status post bilateral LASIK surgery - Tobacco History Second Hand Smoke Exposure: No Tobacco Use In Past 30 Days: Yes Smoking Status: Current every day smoker Tobacco Type: Cigarettes Packs Per Day: 1 years: 35 - Alcohol History How Often Do You Have a Drink Containing Alcohol: 4 or more times a week - Substance Use History Substance History: No History of Abuse - Substance Use Type Marijuana Status: Active Route Used: Inhalation Last Used: 09/24/2017 Comment: patient utilizes marajuana for pain control - Travel History Recent Travel in the [place] Within the Last 8 Weeks: No Recent Travel Out of the Country Within the Last 8 Weeks: No Medications and Allergies Active Medications: Active Medications Chlorhexidine Gluconate (Chlorhexidine 2% Cloth) 3 pack TOPICAL FIXTURE FABRICATOR REPAIRER IAN Stop: 12/29/17 09:28 Last Admin: 12/26/17 09:30 Dose: 3 pack Lactated Ringer's (Lr 1000 Ml Inj) 1,000 mls @ 30 mls/hr IV.SIG .Q24H [facility] Stop: 12/29/17 09:28 Last Admin: 12/26/17 09:45 Dose: 30 mls/hr Sodium Chloride (Ns Inj) 500 mls @ 30 mls/hr IV.SIG .Q10H [facility] Stop: 12/29/17 09:28 Metoprolol Tartrate (Lopressor) 25 mg PO FIXTURE FABRICATOR REPAIRER [facility] Stop: 12/29/17 09:28 Last Admin: 12/26/17 10:10 Dose: Not Given Povidone Iodine (Betadine 5% Antisepsis Kit) 1 applicatio EACH NARE FIXTURE FABRICATOR REPAIRER [facility] Stop: 12/29/17 09:28 Last Admin: 12/26/17 09:45 Dose: 1 applicatio Allergies Allergy/AdvReac Type Severity Reaction Status Date / Time codeine AdvReac Severe N&V Verified 12/26/17 09:46 Home Medications Medication Instructions Recorded Confirmed Type albuterol sulfate [ProAir HFA] 2 puff INHALATION Q6H PRN 12/07/17 12/26/17 History fluticasone-salmeterol [Advair 250 mg INHALATION QID 12/07/17 12/26/17 History Diskus] lisinopril 10 mg PO DAILY 12/07/17 12/26/17 History lovastatin 40 mg PO DAILY 12/07/17 12/26/17 History Physical Exam Vital Signs / I&O: Vital Signs 12/26/17 09:48 Temperature 98.0 F Pulse Rate 93 H Respiratory Rate 20 Blood Pressure 146/73 H Intake & Output 12/25/17 12/26/17 12/26/17 18:59 06:59 18:59 Weight 79.4 kg Other: Weight On Admission 79.4 kg Neuro: alert, no distress HEENT: NC/AT; anicteric Neck: no JVD Heart: reg rate Lungs: coarse B; L > R rhonchi, R exp wheezes Vascular: nonpalpable pulses R LE Laboratory Results - last 24 hr 12/26/17 12/26/17 12/26/17 09:31 09:31 09:31 WBC 5.4 RBC 3.19 L Hgb 10.9 L Hct 31.6 L MCV 99.2 MCH 34.1 H MCHC 34.4 RDW 16.9 Plt Count 205 MPV 8.7 Neut % (Auto) 64.7 Lymph % (Auto) 23.8 [place] % (Auto) 9.1 H Eos % (Auto) 1.3 Baso % (Auto) 1.1 Neut # (Auto) 3.5 Lymph # (Auto) 1.3 [place] # (Auto) 0.5 Eos # (Auto) 0.1 Baso # (Auto) 0.1 WBC Differential . Differential Comment Auto diff final PT 10.0 INR 1.0 Sodium 137 Potassium 3.8 Chloride 101 Carbon Dioxide 25.3 Anion Gap 11 BUN 9 Creatinine 0.64 Estimated GFR Greater than 89 Random Glucose 95 Calcium 8.8 Caprini VTE Risk Assessment Caprini VTE Risk Assessment: No/Low Risk (score <= 1) (intraop heparin) Caprini Risk Assessment Model: Point Value = 1 Point Value = 2 Point Value = 3 Point Value = 5 Age 41-60 Minor surgery BMI > 25 kg/m2 Swollen legs Varicose veins or History of unexplained or recurrent spontaneous Oral contraceptives or hormone replacement Sepsis (< 1 month) Serious lung disease, including pneumonia (< 1 month) Abnormal pulmonary function Acute myocardial infarction Congestive heart failure (< 1 month) History of inflammatory bowel disease Medical patient at bed rest Age 61-74 Arthroscopic surgery Major open surgery (> 45 min) Laparoscopic surgery (> 45 min) Malignancy Confined to bed (> 72 hours) Immobilizing plaster cast Central venous access Age >= 75 History of VTE Family history of VTE Factor V Leiden Prothrombin [id number] Lupus anticoagulant Anticardiolipin antibodies Elevated serum homocysteine Heparin-induced thrombocytopenia Other congenital or acquired thrombophilia Stroke (< 1 month) Elective arthroplasty Hip, pelvis, or leg fracture Acute spinal cord injury (< 1 month) Prophylaxis Regimen: Total Risk Factor Score Risk Level Prophylaxis Regimen 0-1 Low Early ambulation 2 Moderate Order ONE of the following: *Sequential Compression Device (SCD) *Heparin 5000 units SQ BID 3-4 Higher Order ONE of the following medications: *Heparin 5000 units SQ TID *Enoxaparin/Lovenox 40 mg SQ daily (WT < 150 kg, CrCl > 30 mL/min) *Enoxaparin/Lovenox 30 mg SQ daily (WT < 150 kg, CrCl > 10-29 mL/min) *Enoxaparin/Lovenox 30 mg SQ BID (WT < 150 kg, CrCl > 30 mL/min) AND/OR *Sequential Compression Device (SCD) 5 or more Highest Order ONE of the following medications: *Heparin 5000 units SQ TID (Preferred with Epidurals) *Enoxaparin/Lovenox 40 mg SQ daily (WT < 150 kg, CrCl > 30 mL/min) *Enoxaparin/Lovenox 30 mg SQ daily (WT < 150 kg, CrCl > 10-29 mL/min) *Enoxaparin/Lovenox 30 mg SQ BID (WT < 150 kg, CrCl > 30 mL/min) AND *Sequential Compression Device (SCD) Assessment and Plan - Assessment (1) Claudication in peripheral vascular disease Code(s): I73.9 - Peripheral vascular disease, unspecified Status: Acute - Plan R LE angiogram post-op adm for obs will consult medical service for pulmonary issues post-operatively Discharge Planning: tomorrow
[2017-12-26] MEDS ORDERED: Heparin/NS PF Inj 500 ML ONE (11:45)
[2017-12-26] MEDS ORDERED: Glycopyrrolate Inj 1 MG/5 ML Syringe IV.PUSH ONE (12:00)
[2017-12-26] MEDS ORDERED: Lidocaine PF 1% Inj 5 ML Syringe INFILTRATN ONE (12:00)
[2017-12-26] MEDS ORDERED: Iohexol 300 MG/ML 50 ML Vial (for Rad Diag) IVCONTRAST ONE ×3 (12:00→13:40)
[2017-12-26] MEDS ORDERED: Neostigmine Inj 5 MG/5 ML Syringe IV.PUSH ONE (12:00)
[2017-12-26] MEDS ORDERED: Bisacodyl 10 MG Supp RECTAL PRN (12:42)
[2017-12-26] MEDS ORDERED: ceFAZolin 2 GM Premix Inj 2 GM/50 ML PIGGYBACK IV.SIG ONE (13:07)
[2017-12-26] MEDS ORDERED: fentaNYL Citrate Inj 100 MCG/2 ML Ampul ONE (13:11)
--- NOTE | 2017-12-26 13:25 | P.OP ---
- Preoperative Diagnosis (1) Claudication in peripheral vascular disease - Postoperative Diagnosis (1) Claudication in peripheral vascular disease Date of procedure: 12/26/17 Procedure: 1. Aortogram w/ R LE angiogram 2. R EIA orbital atherectomy and angioplasty 3. R SFA LOADING DOCK HAND (proximal, 5x20) 4. R SFA LOADING DOCK HAND/stent (6x80 [employer]) 5. L REVIEWER SALES Angioseal Implants: 1. R SFA stent (6x80) 2. L REVIEWER SALES Angioseal Surgeon: Lisandro Locke MD Parts Cataloger: Aileen Santana Estimated blood loss (mL): 5 IV fluids (mL): 600 Pathology: none sent Operation and Findings: 1. High grade R EIA calcific stenosis, successful atherectomy and LOADING DOCK HAND, no residual stenosis (6mm) 2. proximal SFA stenosis, successful LOADING DOCK HAND (5mm) 3. distal SFA occlusion, recanalized and LOADING DOCK HAND/stent with no residual stenosis ( 6mm stent) 4. 3 vessel runoff
--- NOTE | 2017-12-26 14:20 | P.HPIM ---
History of Present Illness Primary Care Physician: No Primary Care Physician History of Present Illness: 62-year-old male with a history of alcohol abuse, withdrawal, COPD, peripheral artery disease, right lower lobe collapse seen during admission last month who presents for left lower extremity revascularization. I have been contacted by primary service to report that patient is too weak and short of breath to be discharged home. Patient reports progressively worsening shortness of breath over the past 2 weeks. He reports a chronic cough productive of white sputum which is unchanged over the past month. Denies any chest pain. Denies any fevers or chills. Patient reports that he is homeless, and is living in a rental truck. Review of Systems All other systems reviewed negative except as stated in HPI PMFSH - History History Provided By: Patient - Medical History Medical History: Medical History (Last Reviewed 12/26/17 @ 11:18 by Lisandro Locke MD) Alcohol abuse COPD (chronic obstructive pulmonary disease) Femoral artery occlusion, right H/O chronic pancreatitis Homelessness Hyperlipemia Hypertension MRSA (methicillin resistant Staphylococcus aureus) Tobacco abuse - Surgical History Surgical History: Surgical History (Last Reviewed 12/26/17 @ 11:18 by Lisandro Locke MD) 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 H/O hand surgery History of tonsillectomy Status post bilateral LASIK surgery - Family History Family History: Family History (Last Updated 12/26/17 @ 14:18 by Rian Seymour MD) Mother Unknown family medical history Father Cancer - Tobacco History Second Hand Smoke Exposure: No Tobacco Use In Past 30 Days: Yes Smoking Status: Current every day smoker Tobacco Type: Cigarettes Packs Per Day: 1 years: 35 - Alcohol History How Often Do You Have a Drink Containing Alcohol: 4 or more times a week - Substance Use History Substance History: No History of Abuse - Substance Use Type Marijuana Status: Active Route Used: Inhalation Last Used: 09/24/2017 Comment: patient utilizes marajuana for pain control - Travel History Recent Travel in the [place] Within the Last 8 Weeks: No Recent Travel Out of the Country Within the Last 8 Weeks: No Medications and Allergies Active Medications: Active Medications Al Hydroxide/Mg Hydroxide (Milk Of Magnesia Liq) 30 ml PO Q12H PRN PRN Reason: Mild Constipation Albuterol (Ventolin Hfa Inh) 2 puff INH Q6H PRN PRN Reason: Shortness Of Breath Or Wheezing Bisacodyl (Dulcolax Supp) 10 mg RECTAL DAILY PRN PRN Reason: SEVERE CONSITIPATION Budesonide/Formoterol Fumarate (Symbicort 160/4.5 Mcg Inh) 2 puff INH BID [facility] Chlorhexidine Gluconate (Chlorhexidine 2% Cloth) 3 pack TOPICAL SUPERVISOR AGRICULTURAL EDUCATION [facility] Stop: 12/29/17 09:28 Last Admin: 12/26/17 09:30 Dose: 3 pack Lactated Ringer's (Lr 1000 Ml Inj) 1,000 mls @ 30 mls/hr IV.SIG .Q24H [facility] Stop: 12/29/17 09:28 Last Admin: 12/26/17 09:45 Dose: 30 mls/hr Sodium Chloride (Ns Inj) 500 mls @ 30 mls/hr IV.SIG .Q10H [facility] Stop: 12/29/17 09:28 Lactulose (Lactulose Liq) 30 ml PO DAILY PRN PRN Reason: SEVERE CONSITIPATION Lisinopril (Prinivil) 10 mg PO DAILY [facility] Metoprolol Tartrate (Lopressor) 25 mg PO SUPERVISOR [employer]UCATION [facility] Stop: 12/29/17 09:28 Last Admin: 12/26/17 10:10 Dose: Not Given Povidone Iodine (Betadine 5% Antisepsis Kit) 1 applicatio EACH NARE SUPERVISOR AGRICULTURAL EDUCATION [facility] Stop: 12/29/17 09:28 Last Admin: 12/26/17 09:45 Dose: 1 applicatio Pravastatin Sodium (Pravachol) 40 mg PO DAILY [facility] Sennosides (Senokot) 17.2 mg PO Q12H PRN PRN Reason: Moderate Constipation Temazepam (Restoril) 15 mg PO HS PRN PRN Reason: INSOMNIA Allergies Allergy/AdvReac Type Severity Reaction Status Date / Time codeine AdvReac Severe N&V Verified 12/26/17 09:46 Home Medications Medication Instructions Recorded Confirmed Type albuterol sulfate [ProAir HFA] 2 puff INHALATION Q6H PRN 12/07/17 12/26/17 History fluticasone-salmeterol [Advair 250 mg INHALATION QID 12/07/17 12/26/17 History Diskus] lisinopril 10 mg PO DAILY 12/07/17 12/26/17 History lovastatin 40 mg PO DAILY 12/07/17 12/26/17 History Exam Vital signs: Vital Signs 12/26/17 09:48 Temperature 98.0 F Pulse Rate 93 H Respiratory Rate 20 Blood Pressure 146/73 H Intake & Output 12/25/17 12/26/17 12/26/17 18:59 06:59 18:59 Intake Total 600 / 600 Output Total Balance 590 / 590 Weight 79.4 kg Intake: Anesthesia Amount 600 / 600 Output: Estimated Blood Loss Other: Weight On Admission 79.4 kg Narrative: GENERAL: Patient seen postop. Sleeping, somnolent, wakes up for exam. SKIN: Warm and dry. HEAD: Atraumatic. Normocephalic. EYES: Pupils equal and round. No scleral icterus. No injection or drainage. ENT: No nasal bleeding or discharge. Mucous membranes pink and moist. NECK: Trachea midline. No JVD. CARDIOVASCULAR: Regular rate and rhythm. RESPIRATORY: No accessory muscle use. Clear to auscultation. Breath sounds equal bilaterally. GASTROINTESTINAL: Abdomen soft, non-tender, nondistended. Hepatic and splenic margins not palpable. MUSCULOSKELETAL: Extremities without clubbing, cyanosis, or edema. No obvious deformities. NEUROLOGICAL: Awake and alert. No obvious cranial nerve deficits. Motor grossly within normal limits. Five out of 5 muscle strength in bilateral arms. Peripheral perfusion is intact. Normal speech. PSYCHIATRIC: Appropriate mood and affect; insight and judgment normal. Results - Labs CBC & Chem 7: 12/26/17 09:31 12/26/17 09:31 Labs: Short CBC 12/26/17 Range/Units 09:31 WBC 5.4 (4.0-11.0) th/mm3 Hgb 10.9 L (13.0-17.0) gm/dL Hct 31.6 L (39.0-51.0) % Plt Count 205 (150-450) th/mm3 BMP 12/26/17 09:31 Sodium 137 Potassium 3.8 Chloride 101 Carbon Dioxide 25.3 BUN 9 Creatinine 0.64 Calcium 8.8 Caprini VTE Risk Assessment Caprini VTE Risk Assessment: No/Low Risk (score <= 1) (intraop heparin) Caprini Risk Assessment Model: Point Value = 1 Point Value = 2 Point Value = 3 Point Value = 5 Age 41-60 Minor surgery BMI > 25 kg/m2 Swollen legs Varicose veins or History of unexplained or recurrent spontaneous Oral contraceptives or hormone replacement Sepsis (< 1 month) Serious lung disease, including pneumonia (< 1 month) Abnormal pulmonary function Acute myocardial infarction Congestive heart failure (< 1 month) History of inflammatory bowel disease Medical patient at bed rest Age 61-74 Arthroscopic surgery Major open surgery (> 45 min) Laparoscopic surgery (> 45 min) Malignancy Confined to bed (> 72 hours) Immobilizing plaster cast Central venous access Age >= 75 History of VTE Family history of VTE Factor V Leiden Prothrombin [id number] Lupus anticoagulant Anticardiolipin antibodies Elevated serum homocysteine Heparin-induced thrombocytopenia Other congenital or acquired thrombophilia Stroke (< 1 month) Elective arthroplasty Hip, pelvis, or leg fracture Acute spinal cord injury (< 1 month) Prophylaxis Regimen: Total Risk Factor Score Risk Level Prophylaxis Regimen 0-1 Low Early ambulation 2 Moderate Order ONE of the following: *Sequential Compression Device (SCD) *Heparin 5000 units SQ BID 3-4 Higher Order ONE of the following medications: *Heparin 5000 units SQ TID *Enoxaparin/Lovenox 40 mg SQ daily (WT < 150 kg, CrCl > 30 mL/min) *Enoxaparin/Lovenox 30 mg SQ daily (WT < 150 kg, CrCl > 10-29 mL/min) *Enoxaparin/Lovenox 30 mg SQ BID (WT < 150 kg, CrCl > 30 mL/min) AND/OR *Sequential Compression Device (SCD) 5 or more Highest Order ONE of the following medications: *Heparin 5000 units SQ TID (Preferred with Epidurals) *Enoxaparin/Lovenox 40 mg SQ daily (WT < 150 kg, CrCl > 30 mL/min) *Enoxaparin/Lovenox 30 mg SQ daily (WT < 150 kg, CrCl > 10-29 mL/min) *Enoxaparin/Lovenox 30 mg SQ BID (WT < 150 kg, CrCl > 30 mL/min) AND *Sequential Compression Device (SCD) Assessment and Plan - Plan //Left lower extremity revascularization Management as per vascular surgery. //Alcohol abuse. //History of alcohol withdrawal We will order CIWA protocol. //Chronic respiratory failure. //Right lower lung collapse = Have ordered chest x-ray. Continue nebs. Incentive spirometry and Acapella. = Consult oncology and pulmonology. //Hypertension. Blood pressure acceptable. Continue home medications //Hyperlipidemia. Continue home medications. Discussed Condition With: Patient, nurse, PA for vascular surgery. H&P: Quality - VTE Deep Vein Thrombosis/Pulmonary Embolism Present on Admission: No
--- NOTE | 2017-12-26 15:07 | XR ---
EXAM DATE: 12/26/2017 2:53 PM EDT AGE/SEX: 62 years / Male INDICATIONS: Patient extremely short of breath, post angiogram. CLINICAL DATA: This is the patient's initial encounter. Patient reports that signs and symptoms have been present for 1 month and indicates a pain score of 0/10. MEDICAL/SURGICAL HISTORY: . Hypercholesterolemia. Hypertension. Chronic obstructive pulmonary d isease. Right groin occlusive artery. Right foot cellulitis. . Tonsillectomy. Left hand. Right groin artery surgery . Hypercholesterolemia. Hypertension. Chronic obstructive pulmonary disease. Right gr oin occlusive artery. Right foot cellulitis. . Tonsillectomy. Left hand. Right groin artery surgery COMPARISON: [facility], CHEST 1V SINGLE AP, 12/08/2017. . FINDINGS: Persistent collapse of the right upper lobe. Mild compensated cardiomegaly without failure. No infiltrate or pneumothorax. CONCLUSION: Stable chest with collapse of the right upper lobe. Comminuted cardiomegaly without infiltrate or omero lure. Electronically signed by: Cayetano Gabriel MD 12/26/2017 3:05 PM EDT
[2017-12-26] MEDS ORDERED: Haloperidol Inj 5 MG/ML Ampul IV.PUSH PRN (15:46)
--- NOTE | 2017-12-26 16:16 | MP ---
cc: Lisandro Locke MD DATE OF OPERATION: 12/26/17 PREOPERATIVE DIAGNOSIS: Right lower extremity claudication, peripheral vascular occlusive disease. POSTOPERATIVE DIAGNOSIS: Right lower extremity claudication, peripheral vascular occlusive disease. PROCEDURES: 1. Aortogram with right lower extremity angiogram. 2. Right external iliac artery orbital atherectomy and angioplasty. 3. Right SFA proximal angioplasty with a 5 x 20 balloon. 4. Right distal SFA recanalization, angioplasty and stent with a 6 x 80 Zilver self-expanding stent. 5. Left common femoral artery Angio-Seal. ATTENDING SURGEON: Lisandro Locke MD ANESTHESIA: General. INDICATIONS: Mr. Garcia is a 62-year-old gentleman with a history of a right groin infection that was treated with a femoral vein interposition. He has recurrent claudication and was taken to the operating room for angiographic evaluation and potential treatment. There is no prior catheter-based imaging available for my review. DESCRIPTION OF PROCEDURE: Informed consent was obtained from the patient. He was taken to the operating room and placed supine on the operating table. An appropriate timeout was taken to ensure the patient's identity, operative site and planned procedure. The administration of 2 grams of Ancef was initiated prior to stent implantation and will be discontinued after a single preoperative dose. Everyone the room agreed with the timeout and we proceeded. His bilateral groins were prepped and draped and the left common femoral artery was accessed with a 21-gauge micropuncture needle that was exchanged using Seldinger technique for a micropuncture sheath through which a 0.035 Glidewire was introduced. The micropuncture sheath was exchanged for a 5-Chilean sheath. A VCF catheter was placed over the wire and through the sheath and aortogram and pelvic arteriogram was obtained. The patient was systemically heparinized with 5000 units of IV heparin. The Glidewire was navigated down to the right hypogastric artery and the VCF catheter was advanced over this and a [place]on wire was advanced and exchanged for the Glidewire. The VCF catheter and 5-Chilean sheath removed and a 6-Chilean, 55 cm sheath was introduced so the tip of the sheath was in the distal common iliac artery. CXI catheter was placed over the Glidewire, and through the sheath and the Glidewire was navigated past the external iliac artery stenosis. The catheter was advanced over this and this was confirmed angiographically. The Seneca was exchanged for a Viper wire and the CXI catheter was removed and a CSI the orbital atherectomy device was inserted and the external iliac artery was atherectomized without difficulty and it was post-dilated with a 6 mm balloon. The completion angiogram showed excellent result without any recoil or extravasation. The wire, catheter and sheath were then advanced as a unit carefully down to the common femoral artery and the right lower extremity arteriograms obtained. The Glidewire was navigated past the proximal SFA stenosis and this was treated with a 5 x 20 balloon with excellent result, without any recoil or extravasation. We then advanced the whole system down to the SFA occlusion and the glide was exchanged through the CXI catheter for a [employer] wire, but this was unable to recanalize the SFA and as such the Seneca was reintroduced and a subintimal plane was then created and we were able to navigate back into the true lumen of the distal SFA and this was confirmed angiographically. The Huston was reintroduced. The entire area was angioplastied with a 5 mm x 60 balloon. The completion angiogram showed a residual stenosis. This was treated with a 6 x 80 stent and postdilated with to 5 mm. Completion angiograms showed excellent result, without any recoil or extravasation or flow-limiting dissection. Wire, catheter and sheath were removed and the groin was closed with Angio-Seal. There were no complications. I was present, scrubbed, and performed the entire procedure. INTERPRETATION OF IMAGES: The patient patent terminal aorta, common iliac arteries bilaterally. The hypogastric arteries are patent bilaterally. The right external iliac artery is near occlusive with calcific bolder-like stenosis that was successfully atherectomized and angioplastied. The distal external iliac artery was patent. The iliofemoral bypass was widely patent. The proximal SFA has an approximately 70% stenosis that was successfully angioplastied with a 5 mm balloon. The SFA is then patent down to the adductor canal at which point there was about a 4 or 5 cm area of [place] occlusion and this was treated with an angioplasty and stent with excellent result. The popliteal artery was patent and there is 3-vessel runoff to the foot. MD TAYLOR Emerson/CLARISA , 03:56 PM , 04:04 PM [place]
[2017-12-26] MEDS: Budesonide-Formoterol 160/4.5 MCG 6 GM Inhaler INH SCH (21:11)
[2017-12-26] MEDS: MethylPREDNISolone Sod Succinate Inj 40 MG/ML Vial IV.PUSH SCH (21:11)
[2017-12-26] MEDS: Temazepam 15 MG Capsule PO PRN (21:11)
[2017-12-27 05:41] LABS: Baso % (Auto) 0.1 % (0.0-2.0); Hematocrit 30.4 % (39.0-51.0); Hemoglobin 10.3 gm/dL (13.0-17.0); Lymph # (Auto) 0.3 th/mm3 (1.0-4.8); Lymph % (Auto) 9.7 % (9.0-44.0); Mean Corpuscular HGB Conc 33.9 % (32.0-36.0); Mean Corpuscular Hemoglobin 34.3 pg (27.0-34.0); Mean Corpuscular Volume 101.1 fL (80.0-100.0); Mean Platelet Volume 8.7 fL (7.0-11.0); Neut # (Auto) 2.9 th/mm3 (1.8-7.7); Neut % (Auto) 89.2 % (16.0-70.0); Platelet Count 178 th/mm3 (150-450); Red Blood Count 3.01 mil/mm3 (4.50-5.90); Red Cell Distribution Width 16.8 % (11.6-17.2); White Blood Count 3.2 th/mm3 (4.0-11.0)
[2017-12-27 06:08] LABS: Alanine Aminotransferase 18 U/L (12-78); Anion Gap 8 meq/L (5-15); Aspartate Aminotransferase 15 U/L (15-37); Blood Urea Nitrogen 7 mg/dL (7-18); Calcium 8.7 mg/dL (8.5-10.1); Carbon Dioxide 25.7 meq/L (21.0-32.0); Chloride 104 meq/L (98-107); Glomerular Filtration Rate Greater Than 89 mL/min (>89); Glucose,Random 193 mg/dL (74-106); Potassium 3.9 meq/L (3.5-5.1); Sodium 138 meq/L (136-145)
[2017-12-27 06:10] LABS: Alkaline Phosphatase 97 U/L (45-117); Total Protein 7.1 g/dL (6.4-8.2)
--- NOTE | 2017-12-27 08:31 | MB ---
cc: Isaias Miranda MD DATE: 12/26/2017 REQUESTING PHYSICIAN: Dr. Locke. REASON FOR CONSULTATION: COPD and lung mass. HISTORY OF PRESENT ILLNESS: Mr. Garcia is a pleasant 62-year-old white male with history of COPD, nicotine use. He was found to have a right upper lobe lung mass, obstructing the bronchus. He had a bronchoscopy done. He has significant bleeding on bronchoscopy and the biopsy was not attempted because he was bleeding even on washing. Washings were sent for cytology, which was negative. The patient comes today with complaint of left lower extremity swelling. He was seen by Dr. Locke and he underwent operative post-procedure. He had aortogram with right lower extremity angiogram, right external iliac artery atherectomy, right SFA angioplasty and left common femoral artery Angio-Seal. He has mild shortness of breath. Has a recent complaint of pain. No fever or chills, no night sweats, no nausea or vomiting. PAST MEDICAL HISTORY: 1. Significant for history of COPD, hypertension, hyperlipemia, cellulitis of the foot. MEDICATIONS: He is currently taking Ventolin inhaler, nebulized treatment with DuoNeb, Symbicort 160/4.5 two puffs twice a day, Haldol IV, lorazepam q. 4 hours p.r.n., lisinopril 10 mg a day, metoprolol 25 mg, pravastatin 40 mg a day. ALLERGIES: HE IS ALLERGIC TO CODEINE. 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 He lives in a car. He has history of smoking 1 pack a day and drinks 4-6 beers. Uses marijuana. FAMILY HISTORY: He is homeless, has one child. REVIEW OF SYSTEMS: He has pain in the leg, has shortness of breath, no wheezing. No fever or chills. No night sweats. Did not go to see the oncologist, Dr. Kovacs, because his insurance does not cover him. PHYSICAL EXAMINATION: GENERAL: Reveals a moderate built male, mild short of breath, not in any acute distress. VITAL SIGNS: Blood pressure 156/86, heart rate 82, respirations 20, temperature 98.1. HEENT: Pupils are equal and reactive to light. Oral mucosa, nasal mucosa normal. NECK: Supple. JVP not raised. CHEST: He has expiratory rhonchi. HEART: S1, S2 normal. ABDOMEN: Benign. EXTREMITIES: No edema. IMPRESSION: 1. Right lung endobronchial mass, likely malignancy. 2. Chronic obstructive pulmonary disease. 3. Peripheral artery disease, status post operative procedure done. 4. Nicotine abuse. 5. History of alcohol abuse. 6. The patient is homeless. PLAN: I discussed with the patient, we will give him aerosol treatment with albuterol and Atrovent, IV Solu-Medrol. He has lung mass, but biopsy was difficult to do because of his extensive bleeding. Oncology is consulted. Further treatment pending the course in the hospital. Thank you, Dr. Locke, for this consult. MD CLAUDE Gaffney/ALBA , 06:54 PM , 07:04 PM [place]
[2017-12-27] MEDS: MethylPREDNISolone Sod Succinate Inj 40 MG/ML Vial IV.PUSH SCH ×4 (08:37→20:41)
[2017-12-27] MEDS: Lisinopril 10 MG Tablet PO SCH (08:37)
[2017-12-27] MEDS: Budesonide-Formoterol 160/4.5 MCG 6 GM Inhaler INH SCH ×2 (08:38→20:42)
--- NOTE | 2017-12-27 08:51 | P.PNVS ---
Subjective Subjective/Hospital Course: POD#1 s/p R EIA atherectomy/POT LINER, SFA POT LINER/stent looks good R foot feels good still SOB and + cough Objective Vital Signs / I&O: Vital Signs 12/26/17 09:48 12/26/17 13:32 12/26/17 13:45 Temperature 98.0 F 98.3 F Pulse Rate 93 H 78 70 Respiratory Rate 20 16 16 Blood Pressure 146/73 H 139/78 146/82 H Pulse Oximetry 98 99 12/26/17 14:00 12/26/17 14:15 12/26/17 14:30 Temperature Pulse Rate 70 70 64 Respiratory Rate 16 16 16 Blood Pressure 154/84 H 136/75 138/79 Pulse Oximetry 99 98 98 12/26/17 15:00 12/26/17 18:00 12/26/17 19:00 Temperature 98.1 F Pulse Rate 71 84 95 H Respiratory Rate 20 Blood Pressure 156/70 H Pulse Oximetry 96 12/26/17 19:32 12/26/17 19:33 12/26/17 20:00 Temperature 98.1 F Pulse Rate 85 85 Respiratory Rate 16 20 Blood Pressure 115/59 L Pulse Oximetry 95 97 12/26/17 22:46 12/26/17 23:00 12/27/17 00:00 Temperature 98.3 F Pulse Rate 85 80 79 Respiratory Rate 18 Blood Pressure 112/69 Pulse Oximetry 95 12/27/17 00:15 12/27/17 01:00 12/27/17 03:00 Temperature Pulse Rate 77 77 80 Respiratory Rate Blood Pressure Pulse Oximetry 12/27/17 04:00 12/27/17 05:51 12/27/17 06:00 Temperature 98 F Pulse Rate 79 80 73 Respiratory Rate 18 Blood Pressure 147/68 H Pulse Oximetry 95 12/27/17 07:00 12/27/17 07:59 12/27/17 08:00 Temperature 97.9 F Pulse Rate 80 79 72 Respiratory Rate 17 Blood Pressure 153/76 H Pulse Oximetry 95 Intake & Output 12/26/17 12/27/17 12/27/17 18:59 06:59 18:59 Intake Total 1130 / 1130 480 / 480 Output Total 435 / 435 660 / 660 Balance 695 / 695 -180 / -180 Weight 79.4 kg 79 kg Intake: IV 50 / 50 Ancef 2 GM Premix Inj 2 gm In 50 / 50 50 ml @ 100 mls/hr IV.SIG ONCE ONE Rx#:[id number] Oral 480 / 480 480 / 480 Anesthesia Amount 600 / 600 Output: Urine 425 / 425 660 / 660 Estimated Blood Loss Other: Date of Last Bowel Movement 12/26/17 12/26/17 Weight On Admission 79.4 kg Physical Exam: L groin soft, NT R pedal pulse palpable Laboratory Results - last 24 hr 12/26/17 12/26/17 12/26/17 09:31 09:31 09:31 WBC 5.4 RBC 3.19 L Hgb 10.9 L Hct 31.6 L MCV 99.2 MCH 34.1 H MCHC 34.4 RDW 16.9 Plt Count 205 MPV 8.7 Neut % (Auto) 64.7 Lymph % (Auto) 23.8 [place] % (Auto) 9.1 H Eos % (Auto) 1.3 Baso % (Auto) 1.1 Neut # (Auto) 3.5 Lymph # (Auto) 1.3 [place] # (Auto) 0.5 Eos # (Auto) 0.1 Baso # (Auto) 0.1 WBC Differential . Differential Comment Auto diff final PT 10.0 INR 1.0 Sodium 137 Potassium 3.8 Chloride 101 Carbon Dioxide 25.3 Anion Gap 11 BUN 9 Creatinine 0.64 Estimated GFR Greater than 89 Random Glucose 95 Calcium 8.8 Total Bilirubin AST ALT Alkaline Phosphatase Total Protein Albumin 12/27/17 12/27/17 05:24 05:24 WBC 3.2 L RBC 3.01 L Hgb 10.3 L Hct 30.4 L MCV 101.1 H MCH 34.3 H MCHC 33.9 RDW 16.8 Plt Count 178 MPV 8.7 Neut % (Auto) 89.2 H Lymph % (Auto) 9.7 [place] % (Auto) 1.0 Eos % (Auto) 0.0 Baso % (Auto) 0.1 Neut # (Auto) 2.9 Lymph # (Auto) 0.3 L [place] # (Auto) 0.0 Eos # (Auto) 0.0 Baso # (Auto) 0.0 WBC Differential . Differential Comment Auto diff final PT INR Sodium 138 Potassium 3.9 Chloride 104 Carbon Dioxide 25.7 Anion Gap 8 BUN 7 Creatinine 0.68 Estimated GFR Greater than 89 Random Glucose 193 H Calcium 8.7 Total Bilirubin 0.3 AST 15 ALT 18 Alkaline Phosphatase 97 Total Protein 7.1 Albumin 3.0 L Impressions Chest X-Ray 12/26/17 00:00 CONCLUSION: Stable chest with collapse of the right upper lobe. Comminuted cardiomegaly without infiltrate or failure. Assessment and Plan - Assessment (1) Claudication in peripheral vascular disease Code(s): I73.9 - Peripheral vascular disease, unspecified Status: Acute - Plan POD#1 s/p R LE intervention, palpable pulse 1. Needs plavix - if no pulmonary intervention planned, will start today; needs ASA (81) and plavix (75) at home 2. Ok to d/c from vascular standpoint whenever lung work-up complete 3. Will arrange f/u in 1m Discharge Planning: anytime after lung mass w/u
--- NOTE | 2017-12-27 14:03 | P.PNIM ---
Subjective Interval history: Patient says that shortness of breath and cough productive of white sputum continues. Denies any chest pain. Denies any nausea or vomiting. Physical Exam Vital signs: Vital Signs 12/26/17 14:15 12/26/17 14:30 12/26/17 15:00 Temperature 98.1 F Pulse Rate 70 64 71 Respiratory Rate 16 16 20 Blood Pressure 136/75 138/79 156/70 H Pulse Oximetry 98 98 96 12/26/17 18:00 12/26/17 19:00 12/26/17 19:32 Temperature Pulse Rate 84 95 H 85 Respiratory Rate 16 Blood Pressure Pulse Oximetry 12/26/17 19:33 12/26/17 20:00 12/26/17 22:46 Temperature 98.1 F Pulse Rate 85 85 Respiratory Rate 20 Blood Pressure 115/59 L Pulse Oximetry 95 97 12/26/17 23:00 12/27/17 00:00 12/27/17 00:15 Temperature 98.3 F Pulse Rate 80 79 77 Respiratory Rate 18 Blood Pressure 112/69 Pulse Oximetry 95 12/27/17 01:00 12/27/17 03:00 12/27/17 04:00 Temperature 98 F Pulse Rate 77 80 79 Respiratory Rate 18 Blood Pressure 147/68 H Pulse Oximetry 95 12/27/17 05:51 12/27/17 06:00 12/27/17 07:00 Temperature Pulse Rate 80 73 80 Respiratory Rate Blood Pressure Pulse Oximetry 12/27/17 07:59 12/27/17 08:00 12/27/17 08:59 Temperature 97.9 F Pulse Rate 79 72 89 Respiratory Rate 17 18 Blood Pressure 153/76 H Pulse Oximetry 95 94 L 12/27/17 09:00 12/27/17 10:00 12/27/17 11:00 Temperature 98 F Pulse Rate 92 H 97 H 100 H Respiratory Rate 19 Blood Pressure 143/72 H Pulse Oximetry 98 12/27/17 12:00 12/27/17 13:00 Temperature Pulse Rate 101 H 98 H Respiratory Rate Blood Pressure Pulse Oximetry Intake & Output 12/26/17 12/27/17 12/27/17 18:59 06:59 18:59 Intake Total 1130 / 1130 480 / 480 Output Total 435 / 435 660 / 660 Balance 695 / 695 -180 / -180 Weight 79.4 kg 79 kg Intake: IV 50 / 50 Ancef 2 GM Premix Inj 2 gm In 50 / 50 50 ml @ 100 mls/hr IV.SIG ONCE ONE Rx#:[id number] Oral 480 / 480 480 / 480 Anesthesia Amount 600 / 600 Output: Urine 425 / 425 660 / 660 Estimated Blood Loss Other: Date of Last Bowel Movement 12/26/17 12/26/17 Weight On Admission 79.4 kg Narrative: GENERAL: Patient sitting up in bed. Appears comfortable. SKIN: Warm and dry. HEAD: Normocephalic. EYES: No scleral icterus. No injection or drainage. NECK: Supple, trachea midline. No JVD. CARDIOVASCULAR: Regular rate and rhythm without murmurs, gallops, or rubs. RESPIRATORY: Breath sounds equal bilaterally. No accessory muscle use. Rhonchi bilaterally. GASTROINTESTINAL: Abdomen soft, non-tender, nondistended. MUSCULOSKELETAL: No cyanosis, or edema. BACK: Nontender without obvious deformity. No CVA tenderness. Results - Labs CBC & Chem 7: 12/27/17 05:24 12/27/17 05:24 Laboratory Results - last 24 hr 12/27/17 12/27/17 05:24 05:24 WBC 3.2 L RBC 3.01 L Hgb 10.3 L Hct 30.4 L MCV 101.1 H MCH 34.3 H MCHC 33.9 RDW 16.8 Plt Count 178 MPV 8.7 Neut % (Auto) 89.2 H Lymph % (Auto) 9.7 [place] % (Auto) 1.0 Eos % (Auto) 0.0 Baso % (Auto) 0.1 Neut # (Auto) 2.9 Lymph # (Auto) 0.3 L [place] # (Auto) 0.0 Eos # (Auto) 0.0 Baso # (Auto) 0.0 WBC Differential . Differential Comment Auto diff final Sodium 138 Potassium 3.9 Chloride 104 Carbon Dioxide 25.7 Anion Gap 8 BUN 7 Creatinine 0.68 Estimated GFR Greater than 89 Random Glucose 193 H Calcium 8.7 Total Bilirubin 0.3 AST 15 ALT 18 Alkaline Phosphatase 97 Total Protein 7.1 Albumin 3.0 L - Imaging Impressions Chest X-Ray 12/26/17 00:00 CONCLUSION: Stable chest with collapse of the right upper lobe. Comminuted cardiomegaly without infiltrate or failure. Assessment and Plan - Plan //Left lower extremity revascularization Management as per vascular surgery. = Patient cleared for discharge by vascular surgery, however //Alcohol abuse. //History of alcohol withdrawal We will order CIWA protocol = Continue on CIWA protocol. No signs of withdrawal. //Chronic respiratory failure. //Right lower lung collapse = Have ordered chest x-ray. Continue nebs. Incentive spirometry and Acapella. = Consult oncology and pulmonology. = Plan per oncology and pulmonology. Appreciate assistance. Continue on Solu- Medrol. //Hypertension. Blood pressure acceptable. Continue home medications //Hyperlipidemia. Continue home medications. Discussed Condition With: Patient, nurse
[2017-12-27] MEDS: LORazepam 1 MG Tablet PO PRN ×2 (14:45→18:43)
--- NOTE | 2017-12-27 19:07 | P.PNPL ---
Subjective Interval history: 62 YOWM with COPD,RUL endobronchial mass, PAD Has mild wheezing No Fever No CP Physical Exam Vital signs: Vital Signs 12/26/17 19:32 12/26/17 19:33 12/26/17 20:00 Temperature 98.1 F Pulse Rate 85 85 Respiratory Rate 16 20 Blood Pressure 115/59 L Pulse Oximetry 95 97 12/26/17 22:46 12/26/17 23:00 12/27/17 00:00 Temperature 98.3 F Pulse Rate 85 80 79 Respiratory Rate 18 Blood Pressure 112/69 Pulse Oximetry 95 12/27/17 00:15 12/27/17 01:00 12/27/17 03:00 Temperature Pulse Rate 77 77 80 Respiratory Rate Blood Pressure Pulse Oximetry 12/27/17 04:00 12/27/17 05:51 12/27/17 06:00 Temperature 98 F Pulse Rate 79 80 73 Respiratory Rate 18 Blood Pressure 147/68 H Pulse Oximetry 95 12/27/17 07:00 12/27/17 07:59 12/27/17 08:00 Temperature 97.9 F Pulse Rate 80 79 72 Respiratory Rate 17 Blood Pressure 153/76 H Pulse Oximetry 95 12/27/17 08:59 12/27/17 09:00 12/27/17 10:00 Temperature Pulse Rate 89 92 H 97 H Respiratory Rate 18 Blood Pressure Pulse Oximetry 94 L 12/27/17 11:00 12/27/17 12:00 12/27/17 13:00 Temperature 98 F Pulse Rate 100 H 101 H 98 H Respiratory Rate 19 Blood Pressure 143/72 H Pulse Oximetry 98 12/27/17 14:00 12/27/17 15:00 12/27/17 15:14 Temperature 97.9 F Pulse Rate 95 H 81 101 H Respiratory Rate 20 Blood Pressure 136/72 Pulse Oximetry 97 12/27/17 16:00 12/27/17 17:00 12/27/17 18:00 Temperature Pulse Rate 88 93 H 94 H Respiratory Rate Blood Pressure Pulse Oximetry Intake & Output 12/27/17 12/27/17 12/28/17 06:59 18:59 06:59 Intake Total 480 / 480 1190 / 1190 Output Total 660 / 660 1175 / 1175 Balance -180 / -180 15 Weight 79 kg Intake: Oral 480 / 480 1190 / 1190 Output: Urine 660 / 660 1175 / 1175 Other: Date of Last Bowel Movement 12/26/17 GENERAL: WBWN WM,NAD SKIN: Warm and dry. HEAD: Normocephalic. EYES: No scleral icterus. No injection or drainage. NECK: Supple, trachea midline. No JVD or lymphadenopathy. CARDIOVASCULAR: Regular rate and rhythm without murmurs, gallops, or rubs. RESPIRATORY: Breath sounds equal bilaterally. No accessory muscle use. Exp rhonchi. GASTROINTESTINAL: Abdomen soft, non-tender, nondistended. MUSCULOSKELETAL: No cyanosis, or edema. BACK: Nontender without obvious deformity. No CVA tenderness. Assessment and Plan - Plan IMPRESSION: 1. Right lung endobronchial mass, likely malignancy. 2. Chronic obstructive pulmonary disease. 3. Peripheral artery disease, status post operative procedure done. 4. Nicotine abuse. 5. History of alcohol abuse. 6. The patient is homeless. PLAN: Aerosol nebs IV Solumedrol Supplement 02 Oncology consulted.
[2017-12-27] MEDS: Temazepam 15 MG Capsule PO PRN (20:41)
[2017-12-28] MEDS: MethylPREDNISolone Sod Succinate Inj 40 MG/ML Vial IV.PUSH SCH ×4 (03:26→20:51)
[2017-12-28] MEDS: Budesonide-Formoterol 160/4.5 MCG 6 GM Inhaler INH SCH ×2 (09:01→20:51)
[2017-12-28] MEDS: Lisinopril 10 MG Tablet PO SCH (09:01)
--- NOTE | 2017-12-28 10:03 | P.PNPAL ---
Palliative notified of consult for this pt, D/w Dr Seymour medical attending, consult actually cancelled 12/26/17. No need for palliative to see at this time. Palliative available to assist if needed.
--- NOTE | 2017-12-28 15:50 | P.PNIM ---
Subjective Interval history: Patient says that shortness of breath continues. Says that cough is more clear today. Denies any nausea or vomiting. Physical Exam Vital signs: Vital Signs 12/27/17 16:00 12/27/17 17:00 12/27/17 18:00 Temperature Pulse Rate 88 93 H 94 H Respiratory Rate Blood Pressure Pulse Oximetry 12/27/17 19:20 12/27/17 20:00 12/27/17 20:52 Temperature 98.1 F Pulse Rate 91 H 90 106 H Respiratory Rate 20 20 Blood Pressure 129/62 Pulse Oximetry 94 L 12/27/17 21:40 12/27/17 22:32 12/27/17 23:50 Temperature 98.6 F Pulse Rate 90 93 H 83 Respiratory Rate 21 Blood Pressure 91/54 L Pulse Oximetry 96 12/28/17 00:24 12/28/17 01:22 12/28/17 02:03 Temperature Pulse Rate 82 76 75 Respiratory Rate Blood Pressure Pulse Oximetry 12/28/17 03:18 12/28/17 03:37 12/28/17 04:00 Temperature 98.4 F Pulse Rate 76 77 71 Respiratory Rate 18 Blood Pressure 121/58 L Pulse Oximetry 95 12/28/17 05:33 12/28/17 06:28 12/28/17 07:00 Temperature Pulse Rate 74 71 79 Respiratory Rate Blood Pressure Pulse Oximetry 12/28/17 07:40 12/28/17 08:00 12/28/17 09:00 Temperature 97.9 F Pulse Rate 77 82 101 H Respiratory Rate 15 Blood Pressure 131/66 Pulse Oximetry 97 12/28/17 09:47 12/28/17 10:00 12/28/17 11:00 Temperature 98.2 F Pulse Rate 100 H 104 H 109 H Respiratory Rate 16 24 Blood Pressure 138/63 Pulse Oximetry 95 96 12/28/17 12:00 12/28/17 13:00 12/28/17 14:00 Temperature Pulse Rate 105 H 93 H 100 H Respiratory Rate Blood Pressure Pulse Oximetry 12/28/17 15:00 Temperature 98.3 F Pulse Rate 98 H Respiratory Rate 24 Blood Pressure 152/72 H Pulse Oximetry 97 Intake & Output 12/27/17 12/28/17 12/28/17 18:59 06:59 18:59 Intake Total 1190 / 1190 720 / 720 1000 / 1000 Output Total 1175 / 1175 475 / 475 Balance 15 15 245 / 245 1000 / 1000 Weight 79.5 kg Intake: IV 1000 / 1000 LR 1000 mL Inj 1,000 ML @ 30 1000 / 1000 mls/hr IV.SIG .Q24H INA Rx#: [id number] Oral 1190 / 1190 720 / 720 Output: Urine 1175 / 1175 475 / 475 Other: Date of Last Bowel Movement 12/28/17 Narrative: GENERAL: Patient sitting up in bed. Appears comfortable. SKIN: Warm and dry. HEAD: Normocephalic. EYES: No scleral icterus. No injection or drainage. NECK: Supple, trachea midline. No JVD. CARDIOVASCULAR: Regular rate and rhythm without murmurs, gallops, or rubs. RESPIRATORY: Breath sounds equal bilaterally. No accessory muscle use. Rhonchi bilaterally have improved somewhat. GASTROINTESTINAL: Abdomen soft, non-tender, nondistended. MUSCULOSKELETAL: No cyanosis, or edema. BACK: Nontender without obvious deformity. No CVA tenderness. Results - Labs CBC & Chem 7: 12/27/17 05:24 12/27/17 05:24 Assessment and Plan - Plan //Left lower extremity revascularization Management as per vascular surgery. = Patient cleared for discharge by vascular surgery, however = We will need Plavix as per vascular surgery. //Alcohol abuse. //History of alcohol withdrawal We will order CIWA protocol = Continue on CIWA protocol. No signs of withdrawal. //Chronic respiratory failure. //Right lower lung collapse = Have ordered chest x-ray. Continue nebs. Incentive spirometry and Acapella. = Consult oncology and pulmonology. = Plan per oncology and pulmonology. Appreciate assistance. Continue on Solu- Medrol. = 12/28. Discussed with oncology. Oncology recommends consult cardiothoracic surgery for evaluation for possible resection. Consult placed. Appreciate assistance. //Hypertension. Blood pressure acceptable. Continue home medications //Hyperlipidemia. Continue home medications. Discharge Planning: Pending oncology, cardiothoracic surgery clearance. We will need follow with vascular surgery as outpatient.
--- NOTE | 2017-12-28 19:05 | P.PNPL ---
Subjective Interval history: 62 YOWM with COPD,RUL endobronchial mass, PAD Has mild wheezing No Fever No CP Physical Exam Vital signs: Vital Signs 12/27/17 19:20 12/27/17 20:00 12/27/17 20:52 Temperature 98.1 F Pulse Rate 91 H 90 106 H Respiratory Rate 20 20 Blood Pressure 129/62 Pulse Oximetry 94 L 12/27/17 21:40 12/27/17 22:32 12/27/17 23:50 Temperature 98.6 F Pulse Rate 90 93 H 83 Respiratory Rate 21 Blood Pressure 91/54 L Pulse Oximetry 96 12/28/17 00:24 12/28/17 01:22 12/28/17 02:03 Temperature Pulse Rate 82 76 75 Respiratory Rate Blood Pressure Pulse Oximetry 12/28/17 03:18 12/28/17 03:37 12/28/17 04:00 Temperature 98.4 F Pulse Rate 76 77 71 Respiratory Rate 18 Blood Pressure 121/58 L Pulse Oximetry 95 12/28/17 05:33 12/28/17 06:28 12/28/17 07:00 Temperature Pulse Rate 74 71 79 Respiratory Rate Blood Pressure Pulse Oximetry 12/28/17 07:40 12/28/17 08:00 12/28/17 09:00 Temperature 97.9 F Pulse Rate 77 82 101 H Respiratory Rate 15 Blood Pressure 131/66 Pulse Oximetry 97 12/28/17 09:47 12/28/17 10:00 12/28/17 11:00 Temperature 98.2 F Pulse Rate 100 H 104 H 109 H Respiratory Rate 16 24 Blood Pressure 138/63 Pulse Oximetry 95 96 12/28/17 12:00 12/28/17 13:00 12/28/17 14:00 Temperature Pulse Rate 105 H 93 H 100 H Respiratory Rate Blood Pressure Pulse Oximetry 12/28/17 15:00 12/28/17 16:00 12/28/17 16:26 Temperature 98.3 F Pulse Rate 98 H 85 98 H Respiratory Rate 24 24 Blood Pressure 152/72 H Pulse Oximetry 97 12/28/17 17:00 12/28/17 18:00 Temperature Pulse Rate 98 H 92 H Respiratory Rate Blood Pressure Pulse Oximetry Intake & Output 12/28/17 12/28/17 12/29/17 06:59 18:59 06:59 Intake Total 720 / 720 3260 / 3260 Output Total 475 / 475 900 / 900 Balance 245 / 245 2360 / 2360 Weight 79.5 kg Intake: IV 1000 / 1000 LR 1000 mL Inj 1,000 ML @ 30 1000 / 1000 mls/hr IV.SIG .Q24H IAN Rx#: [id number] Oral 720 / 720 2260 / 2260 Output: Urine 475 / 475 900 / 900 Other: Date of Last Bowel Movement 12/28/17 # Bowel Movements 1 GENERAL: WBWN,NAD SKIN: Warm and dry. HEAD: Normocephalic. EYES: No scleral icterus. No injection or drainage. NECK: Supple, trachea midline. No JVD or lymphadenopathy. CARDIOVASCULAR: Regular rate and rhythm without murmurs, gallops, or rubs. RESPIRATORY: Breath sounds equal bilaterally. No accessory muscle use. Exp rhonchi GASTROINTESTINAL: Abdomen soft, non-tender, nondistended. MUSCULOSKELETAL: No cyanosis, or edema. BACK: Nontender without obvious deformity. No CVA tenderness. Assessment and Plan - Plan IMPRESSION: 1. Right lung endobronchial mass, likely malignancy. 2. Chronic obstructive pulmonary disease. 3. Peripheral artery disease, status post operative procedure done. 4. Nicotine abuse. 5. History of alcohol abuse. 6. The patient is homeless. PLAN: Aerosol nebs IV Solumedrol Supplement 02 CTS consulted Check PFT
[2017-12-28] MEDS: Temazepam 15 MG Capsule PO PRN (20:51)
[2017-12-29] MEDS: MethylPREDNISolone Sod Succinate Inj 40 MG/ML Vial IV.PUSH SCH ×4 (02:42→21:16)
[2017-12-29] MEDS: Lisinopril 10 MG Tablet PO SCH (08:09)
[2017-12-29] MEDS: Budesonide-Formoterol 160/4.5 MCG 6 GM Inhaler INH SCH ×2 (08:09→21:16)
--- NOTE | 2017-12-29 08:24 | P.CON ---
History of Present Illness Service: Hematology/Oncology Consult date: 12/29/17 Requesting Physician: Rian Seymour Reason for Consult: Right upper lobe endobronchial mass. Primary Care Provider: No Primary Care Physician Family Provider: No Primary Care Physician Chief Complaint: Pain in the Right leg with swelling. Cough. History of Present Illness: Mr. Garcia is 62-year-old man with extensive past history of tobaccoism and heavy alcohol abuse, he is homeless. He presented to [facility] last month with complaints of difficulty breathing and cough producing blood-tinged phlegm. He underwent CT imaging and was found to have a mass involving the right upper lobe bronchus with resultant collapse of the right upper lobe. He underwent bronchoscopy in November 2017, he was found to have a large endobronchial mass obstructing the right upper lobe mainstem bronchus, this mass was bleeding heavily and bronchial washings were attempted. Cytology was negative. He was discharged home with recommendations to follow-up with me in the outpatient setting however he was unable to see me in the clinic setting due to insurance authorization and my practice being out of network. He presented to this facility over the weekend with complaints of pain and swelling of the right lower extremity, he reports pain in his calf and thigh. He was found to have a arterial obstruction and underwent surgical revascularization. He tells me his symptoms of pain in the right lower extremity have now resolved. The oncology service is been reconsulted to discuss management of what is likely a primary lung malignancy involving the right upper lobe of the lung. I would like to add staging imaging scans performed in November 2017 revealed no evidence of metastatic disease involving the abdomen or pelvis. He did have mildly enlarged lymph nodes involving the mediastinum. Review of Systems Constitutional: Reports fatigue, Denies excessive sweating, Denies fever(s), Denies headache(s), Denies weakness, Denies weight gain, Denies weight loss Eyes: Denies blind spots Ears, Nose, Mouth, and Throat: Reports change in voice, Denies abnormal hearing , Denies bleeding gums, Denies dizziness Cardiovascular: Denies chest pain, Denies chest pain at rest Respiratory: Reports change in phlegm color, Reports chest congestion, Reports cough, Reports coughing up blood, Reports excessive phlegm production, Reports shortness of breath, Reports shortness of breath with activity, Denies pain on inspiration Gastrointestinal: Denies abdominal pain, Denies belching, Denies black, tarry stools Genitourinary: Denies blood in urine Musculoskeletal: Reports abnormal walking (Due to pain in his right leg.) Skin/Breast: Denies acne, Denies bleeding lesions Neurologic: Denies abnormal hearing, Denies localized weakness, Denies loss of vision Psychiatric: Denies abnormal sleep pattern, Denies anxiety Endocrine: Denies cold intolerance Hematologic/Lymphatic: Denies easy bleeding Allergic/Immunologic: Denies GI upset with certain foods PMFSH - History History Provided By: Patient - Medical History Medical History: Medical History (Last Updated 12/29/17 @ 08:16 by Franklin Kovacs MD) Mass of upper lobe of right lung Alcohol abuse COPD (chronic obstructive pulmonary disease) Femoral artery occlusion, right H/O chronic pancreatitis Homelessness Hyperlipemia Hypertension MRSA (methicillin resistant Staphylococcus aureus) Tobacco abuse - Surgical History Surgical History: Surgical History (Last Reviewed 12/27/17 @ 08:25 by Eran Colby) 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 H/O hand surgery History of tonsillectomy Status post bilateral LASIK surgery - Family History Family History: Family History (Last Updated 12/26/17 @ 14:18 by Rian Seymour MD) Mother Unknown family medical history Father Cancer - Tobacco History Second Hand Smoke Exposure: No Tobacco Use In Past 30 Days: Yes Smoking Status: Current every day smoker Tobacco Type: Cigarettes Packs Per Day: 1 years: 35 - Alcohol History How Often Do You Have a Drink Containing Alcohol: 4 or more times a week - Substance Use History Substance History: No History of Abuse - Substance Use Type Marijuana Status: Active Route Used: Inhalation Last Used: 09/24/2017 Comment: patient utilizes marajuana for pain control - Travel History Recent Travel [facility] the [facility] Within the Last 8 Weeks: No Recent Travel Out of the Country Within the Last 8 Weeks: No Medications and Allergies Active Medications: Active Medications Al Hydroxide/Mg Hydroxide (Milk Of Magnesia Liq) 30 ml PO Q12H PRN PRN Reason: Mild Constipation Albuterol (Ventolin Hfa Inh) 2 puff INH Q6H PRN PRN Reason: Shortness Of Breath Or Wheezing Albuterol (Duoneb Neb (Prn)) 1 ampul NEB Q6HR NEB PRN PRN Reason: SOB/WHEEZING Last Admin: 12/28/17 20:57 Dose: 1 ampul Bisacodyl (Dulcolax Supp) 10 mg RECTAL DAILY PRN PRN Reason: SEVERE CONSITIPATION Budesonide/Formoterol Fumarate (Symbicort 160/4.5 Mcg Inh) 2 puff INH BID [facility] Last Admin: 12/28/17 20:51 Dose: 2 puff Chlorhexidine Gluconate (Chlorhexidine 2% Cloth) 3 pack TOPICAL BUSINESS TRANSFORMATION CONSULTANT [facility] Stop: 12/29/17 09:28 Last Admin: 12/26/17 09:30 Dose: 3 pack Flumazenil (Romazecon Inj) 0.2 mg IV.PUSH Q1M PRN PRN Reason: OVERSEDATION Haloperidol Lactate (Haldol Inj) 1 mg IV.PUSH Q15M PRN PRN Reason: for severe agitation Lactated Ringer's (Lr 1000 Ml Inj) 1,000 mls @ 30 mls/hr IV.SIG .Q24H [facility] Stop: 12/29/17 09:28 Last Admin: 12/28/17 09:04 Dose: Not Given Sodium Chloride (Ns Inj) 500 mls @ 30 mls/hr IV.SIG .Q10H [facility] Stop: 12/29/17 09:28 Lactulose (Lactulose Liq) 30 ml PO DAILY PRN PRN Reason: SEVERE CONSITIPATION Lisinopril (Prinivil) 10 mg PO DAILY [facility] Last Admin: 12/28/17 09:01 Dose: 10 mg Lorazepam (Ativan) 1 mg PO Q4H PRN PRN Reason: for CIWA 8-10 Last Admin: 12/27/17 18:43 Dose: 1 mg Lorazepam (Ativan) 2 mg PO Q2H PRN PRN Reason: for CIWA 11-14 Lorazepam (Ativan Inj) 2 mg IV.PUSH Q2H PRN PRN Reason: for CIWA 11-14 Lorazepam (Ativan Inj) 2 mg IV.PUSH Q1H PRN PRN Reason: for CIWA 15-20 Lorazepam (Ativan Inj) 2 mg IV.PUSH Q15M PRN PRN Reason: for CIWA > 20 Lorazepam (Ativan Inj) 1 mg IV.PUSH Q4H PRN PRN Reason: for CIWA 8-10 Methylprednisolone Sodium Succinate (Solumedrol Inj) 40 mg IV.PUSH Q6H [facility] Last Admin: 12/29/17 02:42 Dose: 40 mg Metoprolol Tartrate (Lopressor) 25 mg PO BUSINESS TRANSFORMATION CONSULTANT [facility] Stop: 12/29/17 09:28 Last Admin: 12/26/17 10:10 Dose: Not Given Povidone Iodine (Betadine 5% Antisepsis Kit) 1 applicatio EACH NARE BUSINESS TRANSFORMATION CONSULTANT [facility] Stop: 12/29/17 09:28 Last Admin: 12/26/17 09:45 Dose: 1 applicatio Pravastatin Sodium (Pravachol) 40 mg PO DAILY [facility] Last Admin: 12/28/17 09:01 Dose: 40 mg Sennosides (Senokot) 17.2 mg PO Q12H PRN PRN Reason: Moderate Constipation Temazepam (Restoril) 15 mg PO HS PRN PRN Reason: INSOMNIA Last Admin: 12/28/17 20:51 Dose: 15 mg Allergies Allergy/AdvReac Type Severity Reaction Status Date / Time codeine AdvReac Severe Hives Verified 12/27/17 20:40 Home Medications Medication Instructions Recorded Confirmed Type albuterol sulfate [ProAir HFA] 2 puff INHALATION Q6H PRN 12/07/17 12/26/17 History fluticasone-salmeterol [Advair 250 mg INHALATION QID 12/07/17 12/26/17 History Diskus] lisinopril 10 mg PO DAILY 12/07/17 12/26/17 History lovastatin 40 mg PO DAILY 12/07/17 12/26/17 History Physical Exam Vital signs: Vital Signs 12/28/17 09:00 12/28/17 09:47 12/28/17 10:00 Temperature Pulse Rate 101 H 100 H 104 H Respiratory Rate 16 Blood Pressure Pulse Oximetry 95 12/28/17 11:00 12/28/17 12:00 12/28/17 13:00 Temperature 98.2 F Pulse Rate 109 H 105 H 93 H Respiratory Rate 24 Blood Pressure 138/63 Pulse Oximetry 96 12/28/17 14:00 12/28/17 15:00 12/28/17 16:00 Temperature 98.3 F Pulse Rate 100 H 98 H 85 Respiratory Rate 24 Blood Pressure 152/72 H Pulse Oximetry 97 12/28/17 16:26 12/28/17 17:00 12/28/17 18:00 Temperature Pulse Rate 98 H 98 H 92 H Respiratory Rate 24 Blood Pressure Pulse Oximetry 12/28/17 19:40 12/28/17 19:45 12/28/17 20:00 Temperature 98.1 F Pulse Rate 86 92 H 88 Respiratory Rate 20 Blood Pressure 144/70 H Pulse Oximetry 96 12/28/17 20:58 12/28/17 21:00 12/28/17 22:37 Temperature Pulse Rate 92 H 90 93 H Respiratory Rate 18 Blood Pressure Pulse Oximetry 97 12/28/17 23:50 12/29/17 00:42 12/29/17 01:33 Temperature 98.2 F Pulse Rate 88 77 76 Respiratory Rate 19 Blood Pressure 147/75 H Pulse Oximetry 97 12/29/17 02:38 12/29/17 03:36 12/29/17 04:11 Temperature 98.7 F Pulse Rate 75 82 70 Respiratory Rate 20 Blood Pressure 142/65 H Pulse Oximetry 96 12/29/17 05:24 12/29/17 06:10 12/29/17 07:00 Temperature 98.6 F Pulse Rate 77 61 72 Respiratory Rate 20 Blood Pressure 139/84 Pulse Oximetry 96 Intake & Output 12/28/17 12/29/17 12/29/17 18:59 06:59 18:59 Intake Total 3260 / 3260 480 / 480 Output Total 900 / 900 1425 / 1425 Balance 2360 / 2360 -945 / -945 Weight 80 kg Intake: IV 1000 / 1000 LR 1000 mL Inj 1,000 ML @ 30 1000 / 1000 mls/hr IV.SIG .Q24H IAN Rx#: [id number] Oral 2260 / 2260 480 / 480 Output: Urine 900 / 900 1425 / 1425 Other: Date of Last Bowel Movement 12/28/17 # Bowel Movements 1 - Constitutional no acute distress - Routine HEENT Exam Head: Present: normocephalic, atraumatic Eye: Present: EOMI, PERRL - Routine Neck Exam Present: supple, full ROM. Absent: JVD, lymphadenopathy - Routine Respiratory Exam Present: prolonged expiratory phase (Decreased air entry of the right upper lobe.). Absent: accessory muscle use, CTA bilaterally - Routine Cardiovascular Exam Present: RRR, S1, S2. Absent: murmur, gallop, rubs - Routine Abdominal Exam Present: soft. Absent: normoactive bowel sounds, tenderness, distended - Routine Extremities Exam Present: full ROM, pulses intact, normal capillary refill. Absent: cyanosis, clubbing, edema, calf tenderness - Routine Skin Exam Present: intact. Absent: cyanosis, erythema - Routine Neurological Exam Present: alert, oriented X3, CN II-XII intact. Absent: sensory deficit, motor deficit - Detailed Neurological Exam: Coma Scale Eye Opening: Spontaneous - Routine Psychiatric Exam Present: normal affect Assessment and Plan - Plan Mr. Garcia is a 62-year-old man, he has an extensive past history of tobaccoism and heavy alcohol consumption, he is homeless and lives on the streets. He has a large endobronchial mass obstructing the right upper lobe bronchus, the mass is at the level of the takeoff from the right mainstem bronchus. The patient presented initially last week to this facility with complaints of cough and hemoptysis. He underwent endobronchial evaluation with a bronchoscopy, the mass was identified, the mass was noted to be bleeding and endobronchial brushings were obtained. A needle biopsy was not performed on account of the ongoing bleeding. Brushing cytology was negative for malignancy. Based on his clinical presentation and endobronchial findings is very likely this man has an endobronchial primary lung malignancy. However tissue diagnosis has not yet been established. I have been asked to see this patient to help establish a diagnosis and to assist in planning treatment. There are multiple considerations and challenges including his homelessness, lack of social support, and insurance issues which do not allow outpatient follow-up with [facility]. I spoke with Dr. Miranda of pulmonology he has informed me that he would prefer not to reattempt an endobronchial biopsy given the patient's extensive bleeding when he previously attempted this procedure. Recommendations: 1. Large right upper lobe lung mass: I would recommend evaluation by thoracic surgery to discuss rigid bronchoscopy with tissue biopsy of the right upper lobe endobronchial mass. Unfortunately due to the endobronchial nature of this tumor CT-guided biopsy is not the preferred modality to obtain a tissue diagnosis. I would also appreciate thoracic surgery evaluating the patient for potential resectability of this lesion assuming this is a non-small cell lung carcinoma. Should pathology indicate small cell carcinoma he would have limited stage disease which is typically treated with combined modality chemoradiotherapy. Should he have non-small cell lung carcinoma which is non-resectable he would also be a candidate for combined chemoradiotherapy. Due to his homelessness, lack of social support and lack of insurance I see no feasible options for him other than for him to stay inpatient while he undergoes this workup. If he is discharged, he will be lost to follow-up and will likely of his untreated malignancy in the upcoming months. His malignancy at this time is potentially treatable.
[2017-12-29] MEDS ORDERED: Sodium Chloride 0.9% Irr Bot 500 ML, ceFAZolin Inj 500 MG IRRIGATION SCH ×2 (16:15)
[2017-12-29] MEDS ORDERED: Chlorhexidine 4% Topical 120 APPLIC/120 ML Bottle TOPICAL SCH (16:15)
--- NOTE | 2017-12-29 16:48 | MB ---
cc: Zaida Serrano MD DATE: 12/29/2017 DATE OF : 1955 HISTORY OF PRESENT ILLNESS: The patient was initially admitted a month ago for blood-tinged sputum, shortness of breath. CT chest at the time found a mass involving the right upper lobe bronchus with resultant collapse of the right upper lobe. He underwent bronchoscopy and was found to have a very large endobronchial mass obstructing the right upper lobe mainstem bronchus. He had post significant bleeding. Bronchial washings were attempted. The cytology was negative. He was then discharged home with recommendations to followup with Dr. Cameron Kovacs with Oncology, but was unable to see him in the clinic due to insurance authorization. He presented again to the hospital with complaints of chest discomfort, swelling of his right lower extremity and was found to have an arterial obstruction and underwent a surgical revascularization by Dr. Locke on 12/26/2017. He had aortogram with right lower extremity angiogram, he had a right EIA orbital arthrectomy and angioplasty, right superficial artery NET MANAGER. He placed a stent in the right superficial femoral artery. We were consulted due to this large mass. PET scans have not been performed because of outpatient requirements, large right upper lobe mass. OTHER PAST MEDICAL HISTORY: Includes alcohol abuse, COPD, femoral arterial occlusion on the right status post NET MANAGER stent placement, chronic pancreatitis. The patient is homeless. Hyperlipidemia, hypertension, history of MRSA, tobacco abuse. PAST SURGICAL HISTORY: Surgeries include femoral-popliteal arterial thrombosis of the right lower extremity status post surgery, history of hand surgery, history of tonsillectomy, bilateral LASIK surgery. ALLERGIES: CODEINE. HOME MEDICATIONS: No home medications. FAMILY HISTORY: Father had history of cancer. SOCIAL HISTORY: The patient is single. No children. He has been smoking 1 pack for 35 years. Drinks 4 or more times a week. Occasional marijuana. REVIEW OF SYSTEMS: As above in HPI, all other 12-systems unremarkable. PHYSICAL EXAMINATION: VITAL SIGNS: Blood pressure 140/60, heart rate of 86, temperature max 97.6, O2 saturation 96% on room air. GENERAL: Awake, alert, in no acute distress. HEENT: Head is normocephalic, atraumatic. Pupils equal and reactive. Oral mucosa pink, moist. NECK: Supple. No JVD. HEART SOUNDS: S1, S2. Regular rate and rhythm. No audible rubs, murmurs, or gallops. LUNGS: Diminished air entry of the right upper lobe, clear to auscultation bilaterally. ABDOMEN: Soft, nontender. No masses or organomegaly. EXTREMITIES: No cyanosis or clubbing. The left groin is soft, nontender. He has right pedal pulse palpable. LABORATORY DATA: Hemoglobin 10, hematocrit of 30, white cell count of 3.2, platelet count of 178. Sodium 138, potassium 3.9, BUN 7, creatinine 0.68, glucose 193. INR 1.1. Pulmonary function tests show an FEV1 of 2.07 IMAGING STUDIES: Chest X-ray: Stable chest with collapse of the right upper lobe. Repeat CT chest is pending. ASSESSMENT AND PLAN: A 62-year-old male with extensive history of tobacco abuse, a history of heavy ethyl alcohol abuse, homeless, lives on the street, has a large endobronchial mass obstructing the right upper lobe bronchus. The mass is at the level of the takeoff of the right mainstem bronchus. Presented recently with cough, hemoptysis, underwent bronchoscopy. The mass was noted to be bleeding and endobronchial brushings were obtained. Needle biopsy was not performed due to this ongoing bleeding. The brushings for cytology were negative for malignancy and at this time we have been consulted for possible resection of the lung mass. T He patient is now being evaluated for a right thoracotomy, right upper lobectomy on 01/04/2018, with repeat CT chest pending. He will need Case Management and social work manager for assistance with placement following his surgery. Dictated by MARQUISE Plummer MD YVETTE Holland/CLARISA , 04:13 PM , 04:26 PM
[2017-12-29] MEDS ORDERED: ceFAZolin Inj 2,000 MG in Sodium Chlor 0.9% Inj 80 ML IV.SIG SCH (17:00)
--- NOTE | 2017-12-29 17:11 | P.PNPL ---
Subjective Interval history: 62 YOWM with COPD,RUL endobronchial mass, PAD Has mild wheezing No Fever No CP DW , CTS consulted PFT mod COPD, FEV1 2.07L Physical Exam Vital signs: Vital Signs 12/28/17 18:00 12/28/17 19:40 12/28/17 19:45 Temperature 98.1 F Pulse Rate 92 H 86 92 H Respiratory Rate 20 Blood Pressure 144/70 H Pulse Oximetry 96 12/28/17 20:00 12/28/17 20:58 12/28/17 21:00 Temperature Pulse Rate 88 92 H 90 Respiratory Rate 18 Blood Pressure Pulse Oximetry 97 12/28/17 22:37 12/28/17 23:50 12/29/17 00:42 Temperature 98.2 F Pulse Rate 93 H 88 77 Respiratory Rate 19 Blood Pressure 147/75 H Pulse Oximetry 97 12/29/17 01:33 12/29/17 02:38 12/29/17 03:36 Temperature 98.7 F Pulse Rate 76 75 82 Respiratory Rate 20 Blood Pressure 142/65 H Pulse Oximetry 96 12/29/17 04:11 12/29/17 05:24 12/29/17 06:10 Temperature Pulse Rate 70 77 61 Respiratory Rate Blood Pressure Pulse Oximetry 12/29/17 07:00 12/29/17 08:00 12/29/17 09:00 Temperature 98.6 F Pulse Rate 72 72 87 Respiratory Rate 20 Blood Pressure 139/84 Pulse Oximetry 96 12/29/17 10:00 12/29/17 10:20 12/29/17 11:00 Temperature 98.7 F Pulse Rate 96 H 87 94 H Respiratory Rate 16 20 Blood Pressure 136/68 Pulse Oximetry 97 12/29/17 12:00 12/29/17 13:00 12/29/17 14:00 Temperature Pulse Rate 92 H 105 H 88 Respiratory Rate Blood Pressure Pulse Oximetry 12/29/17 15:00 12/29/17 16:00 Temperature 97.6 F Pulse Rate 92 H 85 Respiratory Rate 20 Blood Pressure 149/65 H Pulse Oximetry 96 Intake & Output 12/28/17 12/29/17 12/29/17 18:59 06:59 18:59 Intake Total 3260 / 3260 480 / 480 1200 / 1200 Output Total 900 / 900 1425 / 1425 700 / 700 Balance 2360 / 2360 -945 / -945 500 / 500 Weight 80 kg Intake: IV 1000 / 1000 LR 1000 mL Inj 1,000 ML @ 30 1000 / 1000 mls/hr IV.SIG .Q24H IAN Rx#: [id number] Oral 2260 / 2260 480 / 480 1200 / 1200 Output: Urine 900 / 900 1425 / 1425 700 / 700 Other: Date of Last Bowel Movement 12/28/17 # Bowel Movements 1 GENERAL: WBWN,NAD SKIN: Warm and dry. HEAD: Normocephalic. EYES: No scleral icterus. No injection or drainage. NECK: Supple, trachea midline. No JVD or lymphadenopathy. CARDIOVASCULAR: Regular rate and rhythm without murmurs, gallops, or rubs. RESPIRATORY: Breath sounds equal bilaterally. No accessory muscle use. GASTROINTESTINAL: Abdomen soft, non-tender, nondistended. MUSCULOSKELETAL: No cyanosis, or edema. BACK: Nontender without obvious deformity. No CVA tenderness. Assessment and Plan - Plan IMPRESSION: 1. Right lung endobronchial mass, likely malignancy. 2. Chronic obstructive pulmonary disease. 3. Peripheral artery disease, status post operative procedure done. 4. Nicotine abuse. 5. History of alcohol abuse. 6. The patient is homeless. PLAN: Aerosol nebs IV Solumedrol Supplement 02 DW . CTS consulted
--- NOTE | 2017-12-29 18:37 | P.PNIM ---
Subjective Interval history: Patient says he is feeling all right. Still with cough today. Denies nausea or vomiting. Physical Exam Vital signs: Vital Signs 12/28/17 19:40 12/28/17 19:45 12/28/17 20:00 Temperature 98.1 F Pulse Rate 86 92 H 88 Respiratory Rate 20 Blood Pressure 144/70 H Pulse Oximetry 96 12/28/17 20:58 12/28/17 21:00 12/28/17 22:37 Temperature Pulse Rate 92 H 90 93 H Respiratory Rate 18 Blood Pressure Pulse Oximetry 97 12/28/17 23:50 12/29/17 00:42 12/29/17 01:33 Temperature 98.2 F Pulse Rate 88 77 76 Respiratory Rate 19 Blood Pressure 147/75 H Pulse Oximetry 97 12/29/17 02:38 12/29/17 03:36 12/29/17 04:11 Temperature 98.7 F Pulse Rate 75 82 70 Respiratory Rate 20 Blood Pressure 142/65 H Pulse Oximetry 96 12/29/17 05:24 12/29/17 06:10 12/29/17 07:00 Temperature 98.6 F Pulse Rate 77 61 72 Respiratory Rate 20 Blood Pressure 139/84 Pulse Oximetry 96 12/29/17 08:00 12/29/17 09:00 12/29/17 10:00 Temperature Pulse Rate 72 87 96 H Respiratory Rate Blood Pressure Pulse Oximetry 12/29/17 10:20 12/29/17 11:00 12/29/17 12:00 Temperature 98.7 F Pulse Rate 87 94 H 92 H Respiratory Rate 16 20 Blood Pressure 136/68 Pulse Oximetry 97 12/29/17 13:00 12/29/17 14:00 12/29/17 15:00 Temperature 97.6 F Pulse Rate 105 H 88 92 H Respiratory Rate 20 Blood Pressure 149/65 H Pulse Oximetry 96 12/29/17 16:00 12/29/17 17:00 12/29/17 18:00 Temperature Pulse Rate 85 84 85 Respiratory Rate Blood Pressure Pulse Oximetry Intake & Output 12/28/17 12/29/17 12/29/17 18:59 06:59 18:59 Intake Total 3260 / 3260 480 / 480 1200 / 1200 Output Total 900 / 900 1425 / 1425 700 / 700 Balance 2360 / 2360 -945 / -945 500 / 500 Weight 80 kg Intake: IV 1000 / 1000 LR 1000 mL Inj 1,000 ML @ 30 1000 / 1000 mls/hr IV.SIG .Q24H IAN Rx#: [id number] Oral 2260 / 2260 480 / 480 1200 / 1200 Output: Urine 900 / 900 1425 / 1425 700 / 700 Other: Date of Last Bowel Movement 12/28/17 # Bowel Movements 1 Narrative: GENERAL: Patient sitting up in bed. Appears comfortable. SKIN: Warm and dry. HEAD: Normocephalic. EYES: No scleral icterus. No injection or drainage. NECK: Supple, trachea midline. No JVD. CARDIOVASCULAR: Regular rate and rhythm without murmurs, gallops, or rubs. RESPIRATORY: Breath sounds equal bilaterally. No accessory muscle use. Rhonchi bilaterally about the same as yesterday. GASTROINTESTINAL: Abdomen soft, non-tender, nondistended. MUSCULOSKELETAL: No cyanosis, or edema. BACK: Nontender without obvious deformity. No CVA tenderness. Results - Labs CBC & Chem 7: 12/27/17 05:24 12/27/17 05:24 Assessment and Plan - Plan //Left lower extremity revascularization Management as per vascular surgery. = Patient cleared for discharge by vascular surgery, however = We will need Plavix as per vascular surgery= anticoagulation as per cardiothoracic surgery. //Alcohol abuse. //History of alcohol withdrawal We will order CIWA protocol = Continue on CIWA protocol. No signs of withdrawal. //Chronic respiratory failure. //Right lower lung collapse = Have ordered chest x-ray. Continue nebs. Incentive spirometry and Acapella. = Consult oncology and pulmonology. = Plan per oncology and pulmonology. Appreciate assistance. Continue on Solu- Medrol. = 12/28. Discussed with oncology. Oncology recommends consult cardiothoracic surgery for evaluation for possible resection. Consult placed. Appreciate assistance. = Cardiothoracic surgery planning for resection. //Hypertension. Blood pressure acceptable. Continue home medications //Leukopenia. Recheck labs tomorrow. //Hyperlipidemia. Continue home medications. Discharge Planning: Patient tentatively plan for resection next week. Pending oncology, cardiothoracic surgery clearance. We will need follow with vascular surgery as outpatient.
[2017-12-29 18:54] LABS: Bilirubin,Urine Negative (Negative); Clarity,Urine Hazy (Clear); Color,Urine Yellow (Yellw/Straw); Glucose,Urine (UA) 150 mg/dL (Negative); Leukocyte Esterase,Urine Negative (Negative); Mucus,Urine Few /lpf (Occasional); Nitrite,Urine Negative (Negative); Specific Gravity,Urine 1.025 (1.002-1.035); Squamous Epithelial Cell,Urine <1 /hpf (0-5)
--- NOTE | 2017-12-29 20:38 | CT ---
EXAM DATE: 12/29/2017 8:30 PM EDT AGE/SEX: 62 years / Male INDICATIONS: Evaluate for mass. CLINICAL DATA: This is the patient's initial encounter. Patient reports that signs and symptoms have been present for 1 day and indicates a pain score of 0/10. MEDICAL/SURGICAL HISTORY: Chronic obstructive pulmonary disease. Hypertension. None. RADIATION DOSE: 9.22 CTDI (mGy) COMPARISON: [facility] – [place], CT CHEST W CONTRAST, 12/06/2017. . TECHNIQUE: Multiple contiguous axial images were obtained through the chest without contrast. Image s were obtained in suspended respiration using multiple row detector helical technique. Using automa tera exposure control and adjustment of the mA and/or kV according to patient size, radiation dose was kept as low as reasonably achievable to obtain optimal diagnostic quality images. DICOM format imag e data is available electronically for review and comparison. FINDINGS: Lungs: Partial reexpansion of the right upper lobe is noted compared to the prior study. There is pe rsistent partial consolidation and collapse continued evidence of endobronchial occlusion. Left lung remains clear. Mediastinum: Right sided paramediastinal fullness remains evident in the right superhilar region par t of which represents collapsed right upper lobe. Small paratracheal lymph node is stable. Pleurae: No evidence of focal thickening or pleural effusion. Axillae: Unremarkable. Bony Structures: Unremarkable. Miscellaneous: The examination was extended to include the upper abdomen, and both adrenal glands ar e normal in size and configuration. CONCLUSION: 1. Persistent collapse of the right upper lobe with evidence of right upper lobe bronchial occlusion . 2. Discrete mass in the right suprahilar region cannot be distinguished from collapsed lung. 3. COPD 4. Otherwise stable exam Electronically signed by: Darwin Samuels MD 12/29/2017 8:37 PM EDT
[2017-12-29] MEDS: Temazepam 15 MG Capsule PO PRN (21:16)
[2017-12-30] MEDS: MethylPREDNISolone Sod Succinate Inj 40 MG/ML Vial IV.PUSH SCH ×4 (03:47→21:50)
[2017-12-30 07:19] LABS: Hematocrit 30.1 % (39.0-51.0); Hemoglobin 10.2 gm/dL (13.0-17.0); Lymph # (Auto) 0.7 th/mm3 (1.0-4.8); Lymph % (Auto) 11.2 % (9.0-44.0); Mean Corpuscular Hemoglobin 34.8 pg (27.0-34.0); Mean Corpuscular Volume 102.2 fL (80.0-100.0); Mean Platelet Volume 9.1 fL (7.0-11.0); Mono # (Auto) 0.4 th/mm3 (0.0-0.9); Neut % (Auto) 82.8 % (16.0-70.0); Platelet Count 222 th/mm3 (150-450); Red Blood Count 2.95 mil/mm3 (4.50-5.90); White Blood Count 6.1 th/mm3 (4.0-11.0)
[2017-12-30 07:51] LABS: Anion Gap 8 meq/L (5-15); Blood Urea Nitrogen 14 mg/dL (7-18); Calcium 9.1 mg/dL (8.5-10.1); Carbon Dioxide 25.9 meq/L (21.0-32.0); Chloride 105 meq/L (98-107); Glomerular Filtration Rate Greater Than 89 mL/min (>89); Glucose,Random 124 mg/dL (74-106); Phosphorus 3.6 mg/dL (2.5-4.9); Potassium 4.1 meq/L (3.5-5.1); Sodium 139 meq/L (136-145)
[2017-12-30 08:28] LABS: Lymphocytes 11 % (9-44); Metamyelocytes 1 % (0-1); Monocytes 2 % (0-8)
[2017-12-30 08:29] LABS: Platelet Estimate Normal (Normal); Platelet Morphology Normal (Normal)
[2017-12-30] MEDS: Budesonide-Formoterol 160/4.5 MCG 6 GM Inhaler INH SCH ×2 (08:36→23:00)
[2017-12-30] MEDS: Lisinopril 10 MG Tablet PO SCH (08:36)
--- NOTE | 2017-12-30 13:06 | P.PNIM ---
Subjective Interval history: Patient eating lunch. Says he is feeling all right. Still with clear cough. Denies any chest pain Physical Exam Vital signs: Vital Signs 12/29/17 14:00 12/29/17 15:00 12/29/17 16:00 Temperature 97.6 F Pulse Rate 88 92 H 85 Respiratory Rate 20 Blood Pressure 149/65 H Pulse Oximetry 96 12/29/17 17:00 12/29/17 18:00 12/29/17 19:00 Temperature Pulse Rate 84 85 82 Respiratory Rate Blood Pressure Pulse Oximetry 12/29/17 20:00 12/29/17 21:00 12/29/17 22:00 Temperature Pulse Rate 81 68 80 Respiratory Rate Blood Pressure Pulse Oximetry 12/29/17 23:00 12/30/17 00:00 12/30/17 01:35 Temperature Pulse Rate 76 70 82 Respiratory Rate Blood Pressure Pulse Oximetry 12/30/17 02:00 12/30/17 03:52 12/30/17 04:55 Temperature Pulse Rate 71 61 64 Respiratory Rate Blood Pressure Pulse Oximetry 12/30/17 05:08 12/30/17 06:10 12/30/17 07:00 Temperature 97.9 F Pulse Rate 65 77 72 Respiratory Rate 20 Blood Pressure 153/75 H Pulse Oximetry 97 12/30/17 08:00 12/30/17 09:00 12/30/17 10:00 Temperature Pulse Rate 94 H 84 98 H Respiratory Rate Blood Pressure Pulse Oximetry 12/30/17 11:00 12/30/17 11:25 12/30/17 12:00 Temperature 98.6 F Pulse Rate 87 87 92 H Respiratory Rate 20 16 Blood Pressure 133/76 Pulse Oximetry 96 Intake & Output 12/29/17 12/30/17 12/30/17 18:59 06:59 18:59 Intake Total 1200 / 1200 720 / 720 Output Total 700 / 700 1999 Balance 500 / 500 -1280 / -1280 Weight 79.5 kg Intake: Oral 1200 / 1200 720 / 720 Output: Urine 700 / 700 1999 Narrative: GENERAL: Patient sitting up in bed. Appears comfortable. SKIN: Warm and dry. HEAD: Normocephalic. EYES: No scleral icterus. No injection or drainage. NECK: Supple, trachea midline. No JVD. CARDIOVASCULAR: Regular rate and rhythm without murmurs, gallops, or rubs. RESPIRATORY: Breath sounds equal bilaterally. No accessory muscle use. Slight wheezing bilaterally. Improved from yesterday. GASTROINTESTINAL: Abdomen soft, non-tender, nondistended. MUSCULOSKELETAL: No cyanosis, or edema. BACK: Nontender without obvious deformity. No CVA tenderness. Results - Labs CBC & Chem 7: 12/30/17 06:17 12/30/17 06:17 Laboratory Results - last 24 hr 12/29/17 12/30/17 12/30/17 18:20 06:17 06:17 WBC 6.1 RBC 2.95 L Hgb 10.2 L Hct 30.1 L MCV 102.2 H MCH 34.8 H MCHC 34.0 RDW 17.0 Plt Count 222 MPV 9.1 Prelim Diff (Auto) Slide review pending Neut % (Auto) 82.8 H Lymph % (Auto) 11.2 [place] % (Auto) 6.0 Eos % (Auto) 0.0 Baso % (Auto) 0.0 Neut # (Auto) 5.0 Lymph # (Auto) 0.7 L [place] # (Auto) 0.4 Eos # (Auto) 0.0 Baso # (Auto) 0.0 WBC Differential Manual diff final Seg Neuts % (Manual) 86 H Lymphocytes % (Manual) 11 Monocytes % (Manual) 2 Metamyelocytes % (Man) 1 Abs Neuts (Manual) 5.3 Differential Comment . Platelet Estimate Normal Platelet Morphology Normal Sodium 139 Potassium 4.1 Chloride 105 Carbon Dioxide 25.9 Anion Gap 8 BUN 14 Creatinine 0.62 Estimated GFR Greater than 89 Random Glucose 124 H Calcium 9.1 Phosphorus 3.6 Albumin 3.0 L Urine Color Yellow Urine Clarity Hazy H Urine pH 7.0 Ur Specific [place] 1.025 Urine Protein Negative Urine Glucose (UA) 150 H Urine Ketones Negative Urine Occult Blood Negative Urine Nitrate Negative Urine Bilirubin Negative Urine Urobilinogen Less than 2 Ur Leukocyte Esterase Negative Urine RBC Less than 1 Urine WBC Less than 1 Ur Squamous Epith Cells <1 Urine Mucus Few H Micro UA Comment Culture not ind Urine Culture Comments Culture not ind - Imaging Impressions Chest CT 12/29/17 16:03 CONCLUSION: 1. Persistent collapse of the right upper lobe with evidence of right upper lobe bronchial occlusion. 2. Discrete mass in the right suprahilar region cannot be distinguished from collapsed lung. 3. COPD 4. Otherwise stable exam Assessment and Plan - Plan //Left lower extremity revascularization Management as per vascular surgery. = Patient cleared for discharge by vascular surgery, however = We will need Plavix as per vascular surgery= anticoagulation as per cardiothoracic surgery. //Chronic respiratory failure. //Right lower lung collapse = Have ordered chest x-ray. Continue nebs. Incentive spirometry and Acapella. = Consult oncology and pulmonology. = Plan per oncology and pulmonology. Appreciate assistance. Continue on Solu- Medrol. = 12/28. Discussed with oncology. Oncology recommends consult cardiothoracic surgery for evaluation for possible resection. Consult placed. Appreciate assistance. = Oncology following = Cardiothoracic surgery planning for resection. //Alcohol abuse. //History of alcohol withdrawal We will order CIWA protocol = Continue on CIWA protocol. No signs of withdrawal. = Discontinue CIWA protocol. //Tobacco abuse. Cessation counseling provided. //Hypertension. Blood pressure acceptable. Continue home medications //Leukopenia. Recheck labs tomorrow. //Hyperlipidemia. Continue home medications. Discharge Planning: Patient tentatively plan for resection next week. Pending oncology, cardiothoracic surgery clearance.
--- NOTE | 2017-12-30 14:20 | P.PNCV ---
- Note Subjective/Hospital Course: 62/ male initially admitted a month ago for blood-tinged sputum, shortness of breath. CT chest at the time found a mass involving the right upper lobe bronchus with resultant collapse of the right upper lobe. He underwent bronchoscopy and was found to have a very large endobronchial mass obstructing the right upper lobe mainstem bronchus. He had post significant bleeding. Bronchial washings were attempted. The cytology was negative. He was then discharged home with recommendations to followup with Dr. Cameron Kovacs with Oncology, but was unable to see him in the clinic due insurance authorization. He presented again to the hospital with complaints of chest discomfort, swelling of his right lower extremity and was found to have an arterial obstruction and underwent a surgical revascularization by Dr. Locke on 12/26/2017. He had aortogram with right lower extremity angiogram, he had a right EIA orbital arthrectomy and angioplasty, right superficial artery [employer]. He placed a stent in the right superficial femoral artery. We were consulted due to this large mass. 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 The patient is homeless. Hyperlipidemia, hypertension, history of MRSA, tobacco abuse. 12/30 pt doing fair, still SOB with any exertion for surgery on Tue / Right Thoracotomy / right upper lobectomy Objective: Vital Signs - 24 hr 12/29/17 15:00 12/29/17 16:00 12/29/17 17:00 Temperature 97.6 F Pulse Rate 92 H 85 84 Respiratory Rate 20 Blood Pressure 149/65 H Pulse Oximetry 96 12/29/17 18:00 12/29/17 19:00 12/29/17 20:00 Temperature Pulse Rate 85 82 81 Respiratory Rate Blood Pressure Pulse Oximetry 12/29/17 21:00 12/29/17 22:00 12/29/17 23:00 Temperature Pulse Rate 68 80 76 Respiratory Rate Blood Pressure Pulse Oximetry 12/30/17 00:00 12/30/17 01:35 12/30/17 02:00 Temperature Pulse Rate 70 82 71 Respiratory Rate Blood Pressure Pulse Oximetry 12/30/17 03:52 12/30/17 04:55 12/30/17 05:08 Temperature Pulse Rate 61 64 65 Respiratory Rate Blood Pressure Pulse Oximetry 12/30/17 06:10 12/30/17 07:00 12/30/17 08:00 Temperature 97.9 F Pulse Rate 77 72 94 H Respiratory Rate 20 Blood Pressure 153/75 H Pulse Oximetry 97 12/30/17 09:00 12/30/17 10:00 12/30/17 11:00 Temperature 98.6 F Pulse Rate 84 98 H 87 Respiratory Rate 20 Blood Pressure 133/76 Pulse Oximetry 96 12/30/17 11:25 12/30/17 12:00 12/30/17 13:00 Temperature Pulse Rate 87 92 H 86 Respiratory Rate 16 Blood Pressure Pulse Oximetry 12/30/17 14:00 Temperature Pulse Rate 81 Respiratory Rate Blood Pressure Pulse Oximetry GENERAL: A&O x 3 / SKIN: Warm and dry. HEAD: Normocephalic. EYES: No scleral icterus. No injection or drainage. NECK: Supple, trachea midline. No JVD or lymphadenopathy. CARDIOVASCULAR: Regular rate and rhythm without murmurs, gallops, or rubs. RESPIRATORY: Breath sounds equal bilaterally. No accessory muscle use. very diminsihed right upper lobe, exp wheeze GASTROINTESTINAL: Abdomen soft, non-tender, nondistended. MUSCULOSKELETAL: No cyanosis, or edema. BACK: Nontender without obvious deformity. No CVA tenderness. Labs: Laboratory Results - last 12 hr 12/30/17 12/30/17 06:17 06:17 WBC 6.1 RBC 2.95 L Hgb 10.2 L Hct 30.1 L MCV 102.2 H MCH 34.8 H MCHC 34.0 RDW 17.0 Plt Count 222 MPV 9.1 Prelim Diff (Auto) Slide review pending Neut % (Auto) 82.8 H Lymph % (Auto) 11.2 [place] % (Auto) 6.0 Eos % (Auto) 0.0 Baso % (Auto) 0.0 Neut # (Auto) 5.0 Lymph # (Auto) 0.7 L [place] # (Auto) 0.4 Eos # (Auto) 0.0 Baso # (Auto) 0.0 WBC Differential Manual diff final Seg Neuts % (Manual) 86 H Lymphocytes % (Manual) 11 Monocytes % (Manual) 2 Metamyelocytes % (Man) 1 Abs Neuts (Manual) 5.3 Differential Comment . Platelet Estimate Normal Platelet Morphology Normal Sodium 139 Potassium 4.1 Chloride 105 Carbon Dioxide 25.9 Anion Gap 8 BUN 14 Creatinine 0.62 Estimated GFR Greater than 89 Random Glucose 124 H Calcium 9.1 Phosphorus 3.6 Albumin 3.0 L Result Diagrams: 12/30/17 06:17 12/30/17 06:17 - Plan (1) Collapse of right lung Plan: right lung mass for surgery on TUE (3) Claudication in peripheral vascular disease Plan: on ASA, ok to start plavix after surgery and when chest tubes out
--- NOTE | 2017-12-30 18:57 | P.PNPL ---
Subjective Interval history: 62 YOWM with COPD,RUL endobronchial mass, PAD Has mild wheezing No Fever No CP PFT mod COPD, FEV1 2.07L Seen By Physical Exam Vital signs: Vital Signs 12/29/17 19:00 12/29/17 20:00 12/29/17 21:00 Temperature Pulse Rate 82 81 68 Respiratory Rate Blood Pressure Pulse Oximetry 12/29/17 22:00 12/29/17 23:00 12/30/17 00:00 Temperature Pulse Rate 80 76 70 Respiratory Rate Blood Pressure Pulse Oximetry 12/30/17 01:35 12/30/17 02:00 12/30/17 03:52 Temperature Pulse Rate 82 71 61 Respiratory Rate Blood Pressure Pulse Oximetry 12/30/17 04:55 12/30/17 05:08 12/30/17 06:10 Temperature Pulse Rate 64 65 77 Respiratory Rate Blood Pressure Pulse Oximetry 12/30/17 07:00 12/30/17 08:00 12/30/17 09:00 Temperature 97.9 F Pulse Rate 72 94 H 84 Respiratory Rate 20 Blood Pressure 153/75 H Pulse Oximetry 97 12/30/17 10:00 12/30/17 11:00 12/30/17 11:25 Temperature 98.6 F Pulse Rate 98 H 87 87 Respiratory Rate 20 16 Blood Pressure 133/76 Pulse Oximetry 96 12/30/17 12:00 12/30/17 13:00 12/30/17 14:00 Temperature Pulse Rate 92 H 86 81 Respiratory Rate Blood Pressure Pulse Oximetry 12/30/17 15:00 12/30/17 16:00 12/30/17 17:00 Temperature 98.0 F Pulse Rate 82 78 87 Respiratory Rate 20 Blood Pressure 122/62 Pulse Oximetry 97 Intake & Output 12/29/17 12/30/17 12/30/17 18:59 06:59 18:59 Intake Total 1200 / 1200 720 / 720 1800 / 1800 Output Total 700 / 700 2000 / 2000 900 / 900 Balance 500 / 500 -1280 / -1280 900 / 900 Weight 79.5 kg Intake: Oral 1200 / 1200 720 / 720 1800 / 1800 Output: Urine 700 / 700 2000 / 2000 900 / 900 GENERAL: WBWN,NAD SKIN: Warm and dry. HEAD: Normocephalic. EYES: No scleral icterus. No injection or drainage. NECK: Supple, trachea midline. No JVD or lymphadenopathy. CARDIOVASCULAR: Regular rate and rhythm without murmurs, gallops, or rubs. RESPIRATORY: Breath sounds equal bilaterally. No accessory muscle use. GASTROINTESTINAL: Abdomen soft, non-tender, nondistended. MUSCULOSKELETAL: No cyanosis, or edema. BACK: Nontender without obvious deformity. No CVA tenderness. Assessment and Plan - Plan IMPRESSION: 1. Right lung endobronchial mass, likely malignancy. 2. Chronic obstructive pulmonary disease. 3. Peripheral artery disease, status post operative procedure done. 4. Nicotine abuse. 5. History of alcohol abuse. 6. The patient is homeless. PLAN: Aerosol nebs IV Solumedrol Supplement 02 DW . BASILIO Pena Surgery planned for Wed Stable from Pulm standpoint Available prn over weekend.
[2017-12-30] MEDS: Temazepam 15 MG Capsule PO PRN (21:58)
[2017-12-31] MEDS: MethylPREDNISolone Sod Succinate Inj 40 MG/ML Vial IV.PUSH SCH ×4 (02:14→21:25)
[2017-12-31] MEDS: Budesonide-Formoterol 160/4.5 MCG 6 GM Inhaler INH SCH ×2 (08:28→21:25)
[2017-12-31] MEDS: Lisinopril 10 MG Tablet PO SCH (08:28)
--- NOTE | 2017-12-31 08:58 | P.PN ---
Subjective Interval history: Stable in his bedroom, coughing, no nausea, vomit or diarrhea. Physical Exam Vital signs: Vital Signs 12/30/17 09:00 12/30/17 10:00 12/30/17 11:00 Temperature 98.6 F Pulse Rate 84 98 H 87 Respiratory Rate 20 Blood Pressure 133/76 Pulse Oximetry 96 12/30/17 11:25 12/30/17 12:00 12/30/17 13:00 Temperature Pulse Rate 87 92 H 86 Respiratory Rate 16 Blood Pressure Pulse Oximetry 12/30/17 14:00 12/30/17 15:00 12/30/17 16:00 Temperature 98.0 F Pulse Rate 81 82 78 Respiratory Rate 20 Blood Pressure 122/62 Pulse Oximetry 97 12/30/17 17:00 12/30/17 20:00 12/30/17 23:00 Temperature 97.9 F 98.1 F Pulse Rate 87 75 75 Respiratory Rate 18 18 Blood Pressure 152/74 H 145/77 H Pulse Oximetry 95 97 12/31/17 02:00 12/31/17 04:03 Temperature 98 F Pulse Rate 63 57 L Respiratory Rate 18 Blood Pressure 144/75 H Pulse Oximetry 97 Intake & Output 12/30/17 12/31/17 12/31/17 18:59 06:59 18:59 Intake Total 1800 / 1800 240 / 240 Output Total 900 / 900 500 / 500 Balance 900 / 900 -260 / -260 Weight 79.5 kg Intake: Oral 1800 / 1800 240 / 240 Output: Urine 900 / 900 500 / 500 Narrative: GENERAL: No acute distress. SKIN: Warm and dry. HEAD: Normocephalic. EYES: No scleral icterus. No injection or drainage. NECK: Supple, trachea midline. No JVD. CARDIOVASCULAR: Regular rate and rhythm without murmurs, gallops, or rubs. RESPIRATORY: Severe decreased breath sounds bilateral, expiratory wheezing moderate. no crackles. GASTROINTESTINAL: Abdomen soft, non-tender, nondistended. MUSCULOSKELETAL: No cyanosis, or edema. BACK: Nontender without obvious deformity. No CVA tenderness. Results - Labs CBC & Chem 7: 12/30/17 06:17 12/30/17 06:17 - Imaging Chest CT 12/29/17 16:03 CONCLUSION: 1. Persistent collapse of the right upper lobe with evidence of right upper lobe bronchial occlusion. 2. Discrete mass in the right suprahilar region cannot be distinguished from collapsed lung. 3. COPD 4. Otherwise stable exam Assessment and Plan - Plan 1. Right Lung endobronchial Mass Likely malignancy, health program specialist following, as per Doctor Serrano for Surgery next week on Tuesday. Oncology following. 2. PAD/left Lower extremity revascularization, management as per Vascular surgery, cleared for discharge on Plavix, anticoagulation as per Cardiothoracic surgery 3. Chronic Respiratory failure/COPD/Right lower lung collapse, Bronchodilator, Mucolytic incentive spirometry Steroids. 4. Alcohol abuse History of alcohol withdrawal CIWA protocol 5. Tobacco abuse Strongly recommended to stop smoking. 6. Hypertension controlled continue Home medicines 6. Hyperlipidemia by history DVT prophylaxis with SCDs. no chemical prophylaxis due to Hemoptysis. Code Status: Full code. Discussed Condition With: patient and nurse. Discharge Planning: once cleared by health program specialist and Cardiothoracic surgery.
[2017-12-31] MEDS: guaiFENesin 600 MG ER Tablet PO SCH (21:25)
[2017-12-31] MEDS: Temazepam 15 MG Capsule PO PRN (22:18)
[2018-01-01] MEDS: MethylPREDNISolone Sod Succinate Inj 40 MG/ML Vial IV.PUSH SCH ×4 (02:04→19:59)
[2018-01-01] MEDS: guaiFENesin 600 MG ER Tablet PO SCH ×2 (08:05→20:00)
[2018-01-01] MEDS: Budesonide-Formoterol 160/4.5 MCG 6 GM Inhaler INH SCH ×2 (08:05→20:00)
[2018-01-01] MEDS: Lisinopril 10 MG Tablet PO SCH (08:05)
--- NOTE | 2018-01-01 10:15 | P.PN ---
Subjective Interval history: Stable no complaint Awaiting for procedure next week. no nausea, vomit or diarrhea. Physical Exam Vital signs: Vital Signs 12/31/17 12:00 12/31/17 12:33 12/31/17 16:00 Temperature 97.8 F 98.2 F Pulse Rate 82 87 72 Respiratory Rate 12 18 Blood Pressure 136/62 149/70 H Pulse Oximetry 98 95 94 L 12/31/17 20:00 01/01/18 00:00 01/01/18 03:00 Temperature 98.2 F 97.3 F L 97.7 F Pulse Rate 87 61 74 Respiratory Rate 18 18 18 Blood Pressure 155/88 H 147/77 H 137/74 Pulse Oximetry 96 96 97 01/01/18 07:00 01/01/18 08:00 Temperature 97.7 F Pulse Rate 95 H 76 Respiratory Rate 18 Blood Pressure 108/71 Pulse Oximetry 98 Intake & Output 12/31/17 01/01/18 01/01/18 18:59 06:59 18:59 Intake Total 800 / 800 Balance 800 / 800 Intake: Oral 800 / 800 Other: # Voids 6 # Bowel Movements 1 Narrative: GENERAL: No acute distress. SKIN: Warm and dry. HEAD: Normocephalic. EYES: No scleral icterus. No injection or drainage. NECK: Supple, trachea midline. No JVD. CARDIOVASCULAR: Regular rate and rhythm without murmurs, gallops, or rubs. RESPIRATORY: Severe decreased breath sounds bilateral, Improving expiratory wheezing, and no crackles. GASTROINTESTINAL: Abdomen soft, non-tender, nondistended. MUSCULOSKELETAL: No cyanosis, or edema. BACK: Nontender without obvious deformity. No CVA tenderness. Results - Labs CBC & Chem 7: 12/30/17 06:17 12/30/17 06:17 Assessment and Plan - Plan 1. Right Lung endobronchial Mass Likely malignancy, home health billing specialist following, as per Doctor Serrano for Surgery next week on Tuesday. Oncology following. 2. PAD/left Lower extremity revascularization, management as per Vascular surgery, cleared for discharge on Plavix, anticoagulation as per Cardiothoracic surgery 3. Chronic Respiratory failure/COPD/Right lower lung collapse, Bronchodilator, Mucolytic incentive spirometry Steroids. 4. Alcohol abuse History of alcohol withdrawal [facility] protocol 5. Tobacco abuse Strongly recommended to stop smoking. 6. Hypertension controlled continue Home medicines 6. Hyperlipidemia by history No changes to anterior assessment. DVT prophylaxis with SCDs. no chemical prophylaxis due to Hemoptysis. Code Status: Full code. Discussed Condition With: Patient and Nurse. Discharge Planning: once cleared by home health billing specialist and Cardiothoracic surgery.
[2018-01-01] MEDS: Temazepam 15 MG Capsule PO PRN (22:26)
[2018-01-02] MEDS: MethylPREDNISolone Sod Succinate Inj 40 MG/ML Vial IV.PUSH SCH ×4 (02:08→21:35)
[2018-01-02] MEDS: Lisinopril 10 MG Tablet PO SCH (09:49)
[2018-01-02] MEDS: guaiFENesin 600 MG ER Tablet PO SCH ×2 (09:49→21:35)
[2018-01-02] MEDS: Budesonide-Formoterol 160/4.5 MCG 6 GM Inhaler INH SCH ×2 (09:50→21:35)
--- NOTE | 2018-01-02 10:17 | P.PN ---
Subjective Interval history: patient seen in his bedroom, stable no complaint awaiting for surgery probable for Tuesday01/04/18 No complaint. Physical Exam Vital signs: Vital Signs 01/01/18 12:00 01/01/18 15:54 01/01/18 16:00 Temperature 97.3 F L 97.8 F Pulse Rate 81 81 67 Respiratory Rate 20 20 18 Blood Pressure 132/67 134/71 Pulse Oximetry 97 98 01/01/18 19:40 01/01/18 20:00 01/01/18 23:00 Temperature 97.3 F L Pulse Rate 77 78 59 L Respiratory Rate 20 Blood Pressure 149/67 H Pulse Oximetry 94 L 01/02/18 00:00 01/02/18 04:00 01/02/18 08:00 Temperature 97.8 F 97.7 F 97.9 F Pulse Rate 71 53 L 69 Respiratory Rate 20 20 17 Blood Pressure 114/56 L 117/59 L 146/83 H Pulse Oximetry 93 L 94 L 98 Intake & Output 01/01/18 01/02/18 01/02/18 18:59 06:59 18:59 Other: # Voids 1 Narrative: GENERAL: No acute distress. SKIN: Warm and dry. HEAD: Normocephalic. EYES: No scleral icterus. No injection or drainage. NECK: Supple, trachea midline. No JVD. CARDIOVASCULAR: Regular rate and rhythm without murmurs, gallops, or rubs. RESPIRATORY: Severe decreased breath sounds bilateral, Improving expiratory wheezing, and no crackles. GASTROINTESTINAL: Abdomen soft, non-tender, nondistended. MUSCULOSKELETAL: No cyanosis, or edema. BACK: Nontender without obvious deformity. No CVA tenderness. Results - Labs CBC & Chem 7: 12/30/17 06:17 12/30/17 06:17 Assessment and Plan - Plan 1. Right Lung endobronchial Mass Likely malignancy, rehab specialist following, as per Doctor Serrano for Surgery next week on Tuesday. Oncology following. 2. PAD/left Lower extremity revascularization, management as per Vascular surgery, cleared for discharge on Plavix, anticoagulation as per Cardiothoracic surgery 3. Chronic Respiratory failure/COPD/Right lower lung collapse, Bronchodilator, Mucolytic incentive spirometry Steroids. 4. Alcohol abuse History of alcohol withdrawal [facility] protocol 5. Tobacco abuse Strongly recommended to stop smoking. 6. Hypertension controlled continue Home medicines 6. Hyperlipidemia by history No changes to anterior assessment. DVT prophylaxis with SCDs. no chemical prophylaxis due to Hemoptysis. No changes to anterior assessment. Code Status: Full Code Discussed Condition With: patient, nurse Miss Ross and MDR. Discharge Planning: once cleared by rehab specialist and Cardiothoracic surgery.
--- NOTE | 2018-01-02 20:15 | P.PNPL ---
Subjective Interval history: 62 YOWM with COPD,RUL endobronchial mass, PAD Has mild wheezing No Fever No CP PFT mod COPD, FEV1 2.07L Physical Exam Vital signs: Vital Signs 01/01/18 23:00 01/02/18 00:00 01/02/18 04:00 Temperature 97.8 F 97.7 F Pulse Rate 59 L 71 53 L Respiratory Rate 20 20 Blood Pressure 114/56 L 117/59 L Pulse Oximetry 93 L 94 L 01/02/18 08:00 01/02/18 12:00 01/02/18 15:00 Temperature 97.9 F 97.9 F 97.7 F Pulse Rate 69 94 H 81 Respiratory Rate 17 17 17 Blood Pressure 146/83 H 128/70 109/76 Pulse Oximetry 98 96 96 01/02/18 15:23 01/02/18 15:24 Temperature Pulse Rate 94 H Respiratory Rate 18 Blood Pressure Pulse Oximetry 97 Intake & Output 01/02/18 01/02/18 01/03/18 06:59 18:59 06:59 Intake Total 960 / 960 Balance 960 / 960 Intake: Oral 960 / 960 Other: # Voids 1 3 # Bowel Movements 1 GENERAL: WBWN WM,NAD SKIN: Warm and dry. HEAD: Normocephalic. EYES: No scleral icterus. No injection or drainage. NECK: Supple, trachea midline. No JVD or lymphadenopathy. CARDIOVASCULAR: Regular rate and rhythm without murmurs, gallops, or rubs. RESPIRATORY: Breath sounds equal bilaterally. No accessory muscle use. GASTROINTESTINAL: Abdomen soft, non-tender, nondistended. MUSCULOSKELETAL: No cyanosis, or edema. BACK: Nontender without obvious deformity. No CVA tenderness. Assessment and Plan - Plan IMPRESSION: 1. Right lung endobronchial mass, likely malignancy. 2. Chronic obstructive pulmonary disease. 3. Peripheral artery disease, status post operative procedure done. 4. Nicotine abuse. 5. History of alcohol abuse. 6. The patient is homeless. PLAN: Aerosol nebs IV Solumedrol Supplement 02 DW . BASILIO Pena Surgery planned for Wed Stable from Pulm standpoint
[2018-01-02] MEDS: Temazepam 15 MG Capsule PO PRN (22:47)
[2018-01-03] MEDS: MethylPREDNISolone Sod Succinate Inj 40 MG/ML Vial IV.PUSH SCH ×4 (02:02→20:43)
[2018-01-03 06:03] LABS: Hematocrit 35.2 % (39.0-51.0); Hemoglobin 11.8 gm/dL (13.0-17.0); Mean Corpuscular HGB Conc 33.5 % (32.0-36.0); Mean Corpuscular Hemoglobin 34.2 pg (27.0-34.0); Mean Platelet Volume 9.3 fL (7.0-11.0); Platelet Count 288 th/mm3 (150-450); Red Blood Count 3.45 mil/mm3 (4.50-5.90); White Blood Count 7.6 th/mm3 (4.0-11.0)
[2018-01-03 06:27] LABS: Alanine Aminotransferase 19 U/L (12-78); Albumin 2.9 g/dL (3.4-5.0); Anion Gap 7 meq/L (5-15); Aspartate Aminotransferase 9 U/L (15-37); Calcium 8.4 mg/dL (8.5-10.1); Carbon Dioxide 28.5 meq/L (21.0-32.0); Chloride 102 meq/L (98-107); Glomerular Filtration Rate Greater Than 89 mL/min (>89); Glucose,Random 135 mg/dL (74-106); Potassium 4.2 meq/L (3.5-5.1); Sodium 137 meq/L (136-145)
[2018-01-03 06:44] LABS: Alkaline Phosphatase 68 U/L (45-117); Blood Urea Nitrogen 25 mg/dL (7-18); Total Protein 6.6 g/dL (6.4-8.2)
[2018-01-03 07:15] LABS: Lymphocytes 5 % (9-44); Monocytes 12 % (0-8); Myelocytes 5 % (0-0); Platelet Estimate Normal (Normal)
[2018-01-03] MEDS: Lisinopril 10 MG Tablet PO SCH (09:06)
[2018-01-03] MEDS: guaiFENesin 600 MG ER Tablet PO SCH ×2 (09:06→20:43)
[2018-01-03] MEDS: Budesonide-Formoterol 160/4.5 MCG 6 GM Inhaler INH SCH ×2 (09:07→20:45)
--- NOTE | 2018-01-03 09:50 | P.PNVS ---
Subjective Subjective/Hospital Course: 62/M s/p R EIA atherectomy/HEARING AID ASSISTANT, SFA HEARING AID ASSISTANT/stent Pt in good spirits this am reported improved R LE discomfort Pt denied claudication or rest pain and stated he has been walking the hallway w /o pain Pt reported improved cough, congestion and SOB Pt looks good B LE warm w/ motor intact Palpable distal pulses noted (2+) Objective Vital Signs / I&O: Vital Signs 01/02/18 12:00 01/02/18 15:00 01/02/18 15:23 Temperature 97.9 F 97.7 F Pulse Rate 94 H 81 94 H Respiratory Rate 17 17 18 Blood Pressure 128/70 109/76 Pulse Oximetry 96 96 01/02/18 15:24 01/02/18 20:00 01/03/18 00:00 Temperature 97.9 F Pulse Rate 77 61 Respiratory Rate 20 Blood Pressure 136/66 Pulse Oximetry 97 97 01/03/18 04:00 01/03/18 05:00 01/03/18 08:00 Temperature 97.2 F L 97.7 F Pulse Rate 62 68 67 Respiratory Rate 18 17 Blood Pressure 110/71 140/78 Pulse Oximetry 94 L 96 Intake & Output 01/02/18 01/03/18 01/03/18 18:59 06:59 18:59 Intake Total 960 / 960 Balance 960 / 960 Intake: Oral 960 / 960 Other: # Voids 3 1 # Bowel Movements 1 Physical Exam: GENERAL: 62/M A&OX3/ NAD SKIN: B LE Warm and dry L groin soft w/o hematoma or swelling CARDIOVASCULAR: RRR w/o M/G/R RESPIRATORY: BS equal CTA/No accessory muscle use GASTROINTESTINAL: Abdomen S/NT MUSCULOSKELETAL: No cyanosis, or edema. Palpable R/L DP/PT (2+) R>L B LE motor intact Laboratory Results - last 24 hr 01/03/18 01/03/18 01/03/18 05:09 05:09 05:09 WBC 7.6 RBC 3.45 L Hgb 11.8 L Hct 35.2 L MCV 102.0 H MCH 34.2 H MCHC 33.5 RDW 16.0 Plt Count 288 MPV 9.3 Prelim Diff (Auto) Manual diff required WBC Differential Manual diff final Seg Neuts % (Manual) 77 H Band Neuts % (Manual) 1 Lymphocytes % (Manual) 5 L Monocytes % (Manual) 12 H Myelocytes % (Man) 5 H Abs Neuts (Manual) 6.3 Differential Comment . Platelet Estimate Normal Platelet Morphology Enlarged H PT INR Sodium 137 Potassium 4.2 Chloride 102 Carbon Dioxide 28.5 Anion Gap 7 BUN 25 H Creatinine 0.70 Estimated GFR Greater than 89 Random Glucose 135 H Calcium 8.4 L Total Bilirubin 0.2 AST 9 L ALT 19 Alkaline Phosphatase 68 Total Protein 6.6 Albumin 2.9 L Blood Type A Negative Blood Type Recheck Not needed Antibody Screen Negative MTS Gel Crossmatch See Detail 01/03/18 05:09 WBC RBC Hgb Hct MCV MCH MCHC RDW Plt Count MPV Prelim Diff (Auto) WBC Differential Seg Neuts % (Manual) Band Neuts % (Manual) Lymphocytes % (Manual) Monocytes % (Manual) Myelocytes % (Man) Abs Neuts (Manual) Differential Comment Platelet Estimate Platelet Morphology PT 10.0 INR 1.0 Sodium Potassium Chloride Carbon Dioxide Anion Gap BUN Creatinine Estimated GFR Random Glucose Calcium Total Bilirubin AST ALT Alkaline Phosphatase Total Protein Albumin Blood Type Blood Type Recheck Antibody Screen MTS Gel Crossmatch Assessment and Plan - Assessment (1) Claudication in peripheral vascular disease Code(s): I73.9 - Peripheral vascular disease, unspecified Status: Acute - Plan 62/M s/p R LE revascularization Pt doing well w/o claudication or rest pain Palpable distal pulses noted Plan Pt cleared for d/c with anticipated ASA (81) and plavix (75) Arranged out pt f/u Pt aware of plan Toshia Trivedi NP [facility]/[place] [phone] Discharge Planning: anytime after lung mass w/u
--- NOTE | 2018-01-03 10:31 | P.PN ---
Subjective Interval history: This is a pleasant 62 y/o male with status post Right lower extremity revascularization was cleared by Vascular surgery for discharge needs to go on Aspirin 81 mg daily and Plavix 75 mg daily, document preparation specialist following with Diagnosis of Endobronchial mass continue with mild expiratory wheezing, awaiting for Surgery probable for tomorrow eating well and good BMs. no nausea, vomit or diarrhea. Physical Exam Vital signs: Vital Signs 01/02/18 12:00 01/02/18 15:00 01/02/18 15:23 Temperature 97.9 F 97.7 F Pulse Rate 94 H 81 94 H Respiratory Rate 17 17 18 Blood Pressure 128/70 109/76 Pulse Oximetry 96 96 01/02/18 15:24 01/02/18 20:00 01/03/18 00:00 Temperature 97.9 F Pulse Rate 77 61 Respiratory Rate 20 Blood Pressure 136/66 Pulse Oximetry 97 97 01/03/18 04:00 01/03/18 05:00 01/03/18 08:00 Temperature 97.2 F L 97.7 F Pulse Rate 62 68 67 Respiratory Rate 18 17 Blood Pressure 110/71 140/78 Pulse Oximetry 94 L 96 Intake & Output 01/02/18 01/03/18 01/03/18 18:59 06:59 18:59 Intake Total 960 / 960 Balance 960 / 960 Intake: Oral 960 / 960 Other: # Voids 3 1 # Bowel Movements 1 Narrative: GENERAL: No acute distress. SKIN: Warm and dry. HEAD: Normocephalic. EYES: No scleral icterus. No injection or drainage. NECK: Supple, trachea midline. No JVD. CARDIOVASCULAR: Regular rate and rhythm without murmurs, gallops, or rubs. RESPIRATORY: Severe decreased breath sounds bilateral, Improving expiratory wheezing, and no crackles. GASTROINTESTINAL: Abdomen soft, non-tender, nondistended. MUSCULOSKELETAL: No cyanosis, or edema. BACK: Nontender without obvious deformity. No CVA tenderness. Results - Labs CBC & Chem 7: 01/03/18 05:09 01/03/18 05:09 Laboratory Results - last 24 hr 01/03/18 01/03/18 01/03/18 05:09 05:09 05:09 WBC 7.6 RBC 3.45 L Hgb 11.8 L Hct 35.2 L MCV 102.0 H MCH 34.2 H MCHC 33.5 RDW 16.0 Plt Count 288 MPV 9.3 Prelim Diff (Auto) Manual diff required WBC Differential Manual diff final Seg Neuts % (Manual) 77 H Band Neuts % (Manual) 1 Lymphocytes % (Manual) 5 L Monocytes % (Manual) 12 H Myelocytes % (Man) 5 H Abs Neuts (Manual) 6.3 Differential Comment . Platelet Estimate Normal Platelet Morphology Enlarged H PT INR Sodium 137 Potassium 4.2 Chloride 102 Carbon Dioxide 28.5 Anion Gap 7 BUN 25 H Creatinine 0.70 Estimated GFR Greater than 89 Random Glucose 135 H Calcium 8.4 L Total Bilirubin 0.2 AST 9 L ALT 19 Alkaline Phosphatase 68 Total Protein 6.6 Albumin 2.9 L Blood Type A Negative Blood Type Recheck Not needed Antibody Screen Negative MTS Gel Crossmatch See Detail 01/03/18 05:09 WBC RBC Hgb Hct MCV MCH MCHC RDW Plt Count MPV Prelim Diff (Auto) WBC Differential Seg Neuts % (Manual) Band Neuts % (Manual) Lymphocytes % (Manual) Monocytes % (Manual) Myelocytes % (Man) Abs Neuts (Manual) Differential Comment Platelet Estimate Platelet Morphology PT 10.0 INR 1.0 Sodium Potassium Chloride Carbon Dioxide Anion Gap BUN Creatinine Estimated GFR Random Glucose Calcium Total Bilirubin AST ALT Alkaline Phosphatase Total Protein Albumin Blood Type Blood Type Recheck Antibody Screen MTS Gel Crossmatch Assessment and Plan - Plan 1. Right Lung endobronchial Mass Likely malignancy, document preparation specialist following, as per Doctor Serrano for Surgery next week on Tuesday01/04/18. Oncology following. 2. PAD/left Lower extremity revascularization, management as per Vascular surgery, cleared for discharge on Plavix 75 mg and Aspirin 81 mg daily, anticoagulation as per Cardiothoracic surgery 3. Chronic Respiratory failure/COPD/Right lower lung collapse, Bronchodilator, Mucolytic incentive spirometry Steroids. 4. Alcohol abuse History of alcohol withdrawal [facility] protocol 5. Tobacco abuse Strongly recommended to stop smoking. 6. Hypertension controlled continue Home medicines 6. Hyperlipidemia by history No changes to anterior assessment. DVT prophylaxis with SCDs. no chemical prophylaxis due to Hemoptysis. Code Status: Full Code. Discussed Condition With: patient and nurse. Discharge Planning: once cleared by document preparation specialist and Cardiothoracic surgery.
--- NOTE | 2018-01-03 15:10 | P.PNCV ---
- Note Subjective/Hospital Course: 62/ male initially admitted a month ago for blood-tinged sputum, shortness of breath. CT chest at the time found a mass involving the right upper lobe bronchus with resultant collapse of the right upper lobe. He underwent bronchoscopy and was found to have a very large endobronchial mass obstructing the right upper lobe mainstem bronchus. He had post significant bleeding. Bronchial washings were attempted. The cytology was negative. He was then discharged home with recommendations to followup with Dr. Cameron Kovacs with Oncology, but was unable to see him in the clinic due insurance authorization. He presented again to the hospital with complaints of chest discomfort, swelling of his right lower extremity and was found to have an arterial obstruction and underwent a surgical revascularization by Dr. Locke on 12/26/2017. 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 He placed a stent in the right superficial femoral artery. We were consulted due to this large mass. 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 The patient is homeless. Hyperlipidemia, hypertension, history of MRSA, tobacco abuse. 12/30 pt doing fair, still SOB with any exertion for surgery on Tue / Right Thoracotomy / right upper lobectomy 01/03 stable for surgery in am on room air Objective: Vital Signs - 24 hr 01/02/18 15:23 01/02/18 15:24 01/02/18 20:00 Temperature 97.9 F Pulse Rate 94 H 77 Respiratory Rate 18 20 Blood Pressure 136/66 Pulse Oximetry 97 97 01/03/18 00:00 01/03/18 04:00 01/03/18 05:00 Temperature 97.2 F L Pulse Rate 61 62 68 Respiratory Rate 18 Blood Pressure 110/71 Pulse Oximetry 94 L 01/03/18 08:00 01/03/18 11:00 01/03/18 11:27 Temperature 97.7 F 97.2 F L Pulse Rate 67 89 83 Respiratory Rate 17 18 16 Blood Pressure 140/78 126/68 Pulse Oximetry 96 96 96 GENERAL: SKIN: Warm and dry. HEAD: Normocephalic. EYES: No scleral icterus. No injection or drainage. NECK: Supple, trachea midline. No JVD or lymphadenopathy. CARDIOVASCULAR: Regular rate and rhythm without murmurs, gallops, or rubs. RESPIRATORY: Breath sounds equal bilaterally. No accessory muscle use. diminished right upper lobe / faint exp wheeze GASTROINTESTINAL: Abdomen soft, non-tender, nondistended. MUSCULOSKELETAL: No cyanosis, or edema. BACK: Nontender without obvious deformity. No CVA tenderness. Labs: Laboratory Results - last 12 hr 01/03/18 01/03/18 01/03/18 05:09 05:09 05:09 WBC 7.6 RBC 3.45 L Hgb 11.8 L Hct 35.2 L MCV 102.0 H MCH 34.2 H MCHC 33.5 RDW 16.0 Plt Count 288 MPV 9.3 Prelim Diff (Auto) Manual diff required WBC Differential Manual diff final Seg Neuts % (Manual) 77 H Band Neuts % (Manual) 1 Lymphocytes % (Manual) 5 L Monocytes % (Manual) 12 H Myelocytes % (Man) 5 H Abs Neuts (Manual) 6.3 Differential Comment . Platelet Estimate Normal Platelet Morphology Enlarged H PT INR Sodium 137 Potassium 4.2 Chloride 102 Carbon Dioxide 28.5 Anion Gap 7 BUN 25 H Creatinine 0.70 Estimated GFR Greater than 89 Random Glucose 135 H Calcium 8.4 L Total Bilirubin 0.2 AST 9 L ALT 19 Alkaline Phosphatase 68 Total Protein 6.6 Albumin 2.9 L Blood Type A Negative Blood Type Recheck Not needed Antibody Screen Negative MTS Gel Crossmatch See Detail 01/03/18 05:09 WBC RBC Hgb Hct MCV MCH MCHC RDW Plt Count MPV Prelim Diff (Auto) WBC Differential Seg Neuts % (Manual) Band Neuts % (Manual) Lymphocytes % (Manual) Monocytes % (Manual) Myelocytes % (Man) Abs Neuts (Manual) Differential Comment Platelet Estimate Platelet Morphology PT 10.0 INR 1.0 Sodium Potassium Chloride Carbon Dioxide Anion Gap BUN Creatinine Estimated GFR Random Glucose Calcium Total Bilirubin AST ALT Alkaline Phosphatase Total Protein Albumin Blood Type Blood Type Recheck Antibody Screen MTS Gel Crossmatch Result Diagrams: 01/03/18 05:09 01/03/18 05:09 - Plan (1) Collapse of right lung Plan: right lung mass for surgery on TUE (3) Claudication in peripheral vascular disease Plan: on ASA, ok to start plavix after surgery and when chest tubes out
--- NOTE | 2018-01-03 19:34 | P.PNPL ---
Subjective Interval history: 62 YOWM with COPD,RUL endobronchial mass, PAD Has mild wheezing No Fever No CP PFT mod COPD, FEV1 2.07L Anxious to have surgery in AM Physical Exam Vital signs: Vital Signs 01/02/18 20:00 01/03/18 00:00 01/03/18 04:00 Temperature 97.9 F 97.2 F L Pulse Rate 77 61 62 Respiratory Rate 20 18 Blood Pressure 136/66 110/71 Pulse Oximetry 97 94 L 01/03/18 05:00 01/03/18 08:00 01/03/18 11:00 Temperature 97.7 F 97.2 F L Pulse Rate 68 67 89 Respiratory Rate 17 18 Blood Pressure 140/78 126/68 Pulse Oximetry 96 96 01/03/18 11:27 01/03/18 15:00 Temperature 98.2 F Pulse Rate 83 74 Respiratory Rate 16 18 Blood Pressure 141/63 H Pulse Oximetry 96 94 L Intake & Output 01/03/18 01/03/18 01/04/18 06:59 18:59 06:59 Intake Total 860 / 860 Balance 860 / 860 Intake: Oral 860 / 860 Other: # Voids 1 6 Date of Last Bowel Movement 01/03/18 # Bowel Movements 2 GENERAL: WBWn WM, NAD SKIN: Warm and dry. HEAD: Normocephalic. EYES: No scleral icterus. No injection or drainage. NECK: Supple, trachea midline. No JVD or lymphadenopathy. CARDIOVASCULAR: Regular rate and rhythm without murmurs, gallops, or rubs. RESPIRATORY: Breath sounds equal bilaterally. No accessory muscle use. GASTROINTESTINAL: Abdomen soft, non-tender, nondistended. MUSCULOSKELETAL: No cyanosis, or edema. BACK: Nontender without obvious deformity. No CVA tenderness. Assessment and Plan - Plan IMPRESSION: 1. Right lung endobronchial mass, likely malignancy. 2. Chronic obstructive pulmonary disease. 3. Peripheral artery disease, status post operative procedure done. 4. Nicotine abuse. 5. History of alcohol abuse. 6. The patient is homeless. PLAN: Aerosol nebs IV Solumedrol Supplement 02 Surgery planned for AM Stable from Pulm standpoint
[2018-01-03] MEDS: Temazepam 15 MG Capsule PO PRN (22:20)
[2018-01-04] MEDS: MethylPREDNISolone Sod Succinate Inj 40 MG/ML Vial IV.PUSH SCH ×4 (02:17→20:04)
[2018-01-04] MEDS ORDERED: Chlorhexidine Gluconate 2% 1 Pack (2 Cloths) TOPICAL SCH (04:45)
[2018-01-04] MEDS: guaiFENesin 600 MG ER Tablet PO SCH ×2 (09:17→20:06)
[2018-01-04] MEDS: Lisinopril 10 MG Tablet PO SCH (09:18)
[2018-01-04] MEDS: Budesonide-Formoterol 160/4.5 MCG 6 GM Inhaler INH SCH ×2 (09:21→22:32)
--- NOTE | 2018-01-04 11:15 | P.PN ---
Subjective Interval history: This is a pleasant 62 y/o male with status post Right lower extremity revascularization was cleared by Vascular surgery for discharge needs to go on Aspirin 81 mg daily and Plavix 75 mg daily, chargeback specialist following with Diagnosis of Endobronchial mass continue with mild expiratory wheezing. Seen in his bedroom, at this time will go to OR for surgery, stable, no complaint, no nausea, vomit or diarrhea. Physical Exam Vital signs: Vital Signs 01/03/18 11:27 01/03/18 15:00 01/03/18 20:00 Temperature 98.2 F 97.7 F Pulse Rate 83 74 75 Respiratory Rate 16 18 20 Blood Pressure 141/63 H 123/64 Pulse Oximetry 96 94 L 95 01/04/18 00:40 01/04/18 01:00 01/04/18 04:00 Temperature 97.2 F L 97.7 F Pulse Rate 66 61 61 Respiratory Rate 20 20 Blood Pressure 143/68 H 119/62 Pulse Oximetry 96 97 01/04/18 08:00 01/04/18 09:00 Temperature 97.9 F Pulse Rate 65 75 Respiratory Rate 19 Blood Pressure 129/75 Pulse Oximetry 96 Intake & Output 01/03/18 01/04/18 01/04/18 18:59 06:59 18:59 Intake Total 860 / 860 Balance 860 / 860 Weight 79.9 kg Intake: Oral 860 / 860 Other: # Voids 6 2 Date of Last Bowel Movement 01/03/18 # Bowel Movements 2 Narrative: GENERAL: No acute distress. SKIN: Warm and dry. HEAD: Normocephalic. EYES: No scleral icterus. No injection or drainage. NECK: Supple, trachea midline. No JVD. CARDIOVASCULAR: Regular rate and rhythm without murmurs, gallops, or rubs. RESPIRATORY: Severe decreased breath sounds bilateral, Improving expiratory wheezing, and no crackles. GASTROINTESTINAL: Abdomen soft, non-tender, nondistended. MUSCULOSKELETAL: No cyanosis, or edema. BACK: Nontender without obvious deformity. No CVA tenderness. Results - Labs CBC & Chem 7: 01/03/18 05:09 01/03/18 05:09 Laboratory Results - last 24 hr 01/03/18 05:09 Blood Type A Negative Blood Type Recheck Not needed Antibody Screen Negative MTS Gel Crossmatch See Detail Assessment and Plan - Plan 1. Right Lung endobronchial Mass Likely malignancy, chargeback specialist following, as per Doctor Serrano for Surgery later today, he will go to Intensive Care Unit after procedure. 2. PAD/left Lower extremity revascularization, management as per Vascular surgery, cleared for discharge on Plavix 75 mg and Aspirin 81 mg daily, anticoagulation as per Cardiothoracic surgery 3. Chronic Respiratory failure/COPD/Right lower lung collapse, Bronchodilator, Mucolytic incentive spirometry Steroids. 4. Alcohol abuse History of alcohol withdrawal [facility] protocol 5. Tobacco abuse Strongly recommended to stop smoking. 6. Hypertension controlled continue Home medicines 6. Hyperlipidemia by history No changes to anterior assessment. DVT prophylaxis with SCDs. no chemical prophylaxis due to Hemoptysis. Code Status: Full code Discussed Condition With: Patient and nurse Discharge Planning: once cleared by chargeback specialist and Cardiothoracic surgery.
[2018-01-04] MEDS ORDERED: Sugammadex Inj 200 MG/2 ML Vial IV.PUSH ONE (11:21)
[2018-01-04] MEDS ORDERED: Glycopyrrolate 0.2 MG/ML Vial IV.PUSH ONE (12:00)
[2018-01-04] MEDS ORDERED: Glycopyrrolate Inj 1 MG/5 ML Syringe IV.PUSH ONE (12:05)
[2018-01-04] MEDS ORDERED: Neostigmine Inj 5 MG/5 ML Syringe IV.PUSH ONE (12:05)
[2018-01-04] MEDS ORDERED: Sodium Chlor 0.9% Inj 250 ML IV.SIG ONE (12:05)
[2018-01-04] MEDS ORDERED: Lidocaine PF 1% Inj 5 ML Syringe INFILTRATN ONE (12:05)
[2018-01-04] MEDS ORDERED: Normosol-R pH 7.4 Inj 1,000 ML IV.CONT ONE (12:05)
[2018-01-04] MEDS: ceFAZolin 2 GM Premix Inj 2 GM/50 ML PIGGYBACK IV.SIG ONE ×2 (12:55→13:39)
[2018-01-04] MEDS ORDERED: Post-op Orders (for Pharmacy) OTHER STA (15:40)
[2018-01-04] MEDS ORDERED: Naloxone Inj 0.4 MG/ML Vial IV.PUSH PRN (15:40)
[2018-01-04] MEDS ORDERED: Bisacodyl 10 MG Supp RECTAL PRN (15:40)
[2018-01-04] MEDS ORDERED: Acetaminophen 325 MG Tablet PO PRN (15:40)
[2018-01-04] MEDS ORDERED: Enoxaparin Inj 30 MG/0.3 ML Syringe SQ SCH (15:45)
--- NOTE | 2018-01-04 15:48 | P.OP ---
Date of procedure: 01/04/18 Anesthesia: GETA Surgeon: Zaida Serrano MD Operation and Findings: PREOPERATIVE DIAGNOSIS 1. Right Upper lobe Lung Mass 2. Right upper lobe endobronchial obstruction with complete collapse 3. COPD POSTOPERATIVE DIAGNOSIS same PROCEDURES 1. Right posterolateral Muscle Sparing Thoracotomy 2. Right Upper lobectomy 3. Mediastinal Lymph Node Dissection 4. Intercostal Nerve Block SURGEON Zaida Serrano MD ADDICTION MEDICINE PHYSICIAN Yue Hurtado [facility] ANESTHESIA General double-lumen endotracheal. [facility] SPECIALIST JENNIFER Sanon MD DRAINS [address] COUNTS Needle, sponge, and instrument counts were correct. COMPLICATIONS None. INDICATION FOR PROCEDURE The patient is a 62yo gentleman with right upper lobe lung mass causing complete obstruction of the right upper lobe bronchus with resultant collapse of the right upper lobe, presenting for surgical resection of above pathology. DESCRIPTION OF PROCEDURE The patient was brought to the operating suite and placed in supine position. Following satisfactory induction of general double-lumen endotracheal anesthesia , the patient was placed in the left lateral decubitus position. The right chest and surrounding area was then prepped and draped in the usual sterile fashion. A standard muscle-sparing posterolateral thoracotomy was performed and the serratus anterior muscle spared. The pleural space was entered. Exploration of the chest revealed a completely collapsed right upper lobe with a large mass encircling the right upper lobe bronchus right at its takeoff from the right mainstem bronchus. Given these findings, the decision was made to proceed with a formal right upper lobectomy to resect the completely collapsed lung. The inferior pulmonary ligament was divided. The pulmonary arterial supply to the upper lobe was identified, dissected free and divided as was the pulmonary venous supply. The bronchus was then dissected free, clamped and the remaining lung was insufflated without any difficulty. Lymph node dissections of level 4, 7, 8, 9 and 10 were performed along with the course of this removal. Some of these were retained with the specimen. Specimen was removed from the chest. The remaining lung was submerged under sterile water and inflated. No air leaks were identified. At this point the closure was undertaken. A 28-Greenlandic chest tube was placed. Intercostal nerve block was performed at the level of the incision and 3 rib spaces above and below using Exparel with Decadron solution. The pericostal space was approximated with interrupted #1 Vicryl sutures in a pericostal fashion. The serratus fascia and Latissimus dorsi were closed with running 0-Vicryl and the remaining wounds closed with 3-0, and 4-0 Monocryl. The patient tolerated the procedure well and postoperatively went to the PACU in stable condition.
[2018-01-04] MEDS ORDERED: *morphine SULFATE 4 MG/ML PERIprocedure ONLY ONE ×3 (16:19→16:32)
[2018-01-04] MEDS ORDERED: fentaNYL Citrate Inj 100 MCG/2 ML Ampul ONE (16:20)
--- NOTE | 2018-01-04 16:33 | XR ---
EXAM DATE: 01/04/2018 4:24 PM EDT AGE/SEX: 62 years / Male INDICATIONS: Post op right upper lobectomy, central line placement CLINICAL DATA: This is the patient's initial encounter. Patient reports that signs and symptoms have been present for 1 day and indicates a pain score of Nonresponsive. MEDICAL/SURGICAL HISTORY: . Chronic obstructive pulmonary disease. Hypertension None. COMPARISON: [facility] – [place], CHEST 1V SINGLE AP, 12/26/2017. . FINDINGS: Single AP frontal view of the chest shows interval resection of the previously seen mass lesion media lly in the right upper lobe. Stable volume loss in the right hemithorax. Thoracostomy tube is identif ied with no pneumothorax. Right subclavian central venous catheter with the tip projecting over the c entral venous system. Linear atelectasis in the left lower lung field. Left lung is otherwise clear. Deep tissue emphysematous changes about the right hemithorax CONCLUSION: 1. Mass lesion previously seen in the medial upper right lobe is no longer present characteristic of a reported history of lobectomy. 2. Expected volume loss in the right hemithorax. Thoracostomy tube in place without pneumothorax. 3. Right subclavian central venous catheter with the tip projecting over the central venous system. 4. Minimal atelectatic changes in the left lower lung field. Left lung is otherwise clear. Electronically signed by: Mario Santiago MD 01/04/2018 4:32 PM EDT
[2018-01-04] MEDS ORDERED: HYDROmorphone PF Inj 2 MG/ML Vial ONE ×2 (16:51→17:08)
[2018-01-04] MEDS: Morphine Inj 30 MG/30 ML PCA.VIAL PCA PRN (17:32)
[2018-01-04] MEDS: Ketorolac Inj 30 MG/ML (IVP) Vial IV.PUSH SCH ×2 (17:55→23:55)
--- NOTE | 2018-01-04 19:39 | P.PNPL ---
Subjective Interval history: 62 YOWM with COPD,RUL endobronchial mass, PAD Has mild wheezing No Fever No CP PFT mod COPD, FEV1 2.07L Had Rt upper lobectomy Mild pain Physical Exam Vital signs: Vital Signs 01/03/18 20:00 01/04/18 00:40 01/04/18 01:00 Temperature 97.7 F 97.2 F L Pulse Rate 75 66 61 Respiratory Rate 20 20 Blood Pressure 123/64 143/68 H Pulse Oximetry 95 96 01/04/18 04:00 01/04/18 08:00 01/04/18 09:00 Temperature 97.7 F 97.9 F Pulse Rate 61 65 75 Respiratory Rate 20 19 Blood Pressure 119/62 129/75 Pulse Oximetry 97 96 01/04/18 11:22 01/04/18 16:08 01/04/18 16:15 Temperature 98.2 F Pulse Rate 82 80 78 Respiratory Rate 18 18 24 Blood Pressure 117/71 113/70 Pulse Oximetry 100 100 01/04/18 16:30 01/04/18 16:45 01/04/18 17:00 Temperature Pulse Rate 74 73 78 Respiratory Rate 16 16 16 Blood Pressure 105/71 106/57 L 105/55 L Pulse Oximetry 96 96 97 01/04/18 17:15 01/04/18 18:11 01/04/18 18:31 Temperature 98.1 F Pulse Rate 80 72 69 Respiratory Rate 18 17 Blood Pressure 95/57 L 105/61 Pulse Oximetry 97 95 Intake & Output 01/04/18 01/04/18 01/05/18 06:59 18:59 06:59 Intake Total 2720 / 2720 Output Total 645 / 645 Balance 2074 / 2075 Weight 79.9 kg Intake: IV 1100 / 1100 LR 1000 mL Inj 1,000 ML @ 30 1000 / 1000 mls/hr IV.SIG .Q24H IAN Rx#: [id number] Ancef Inj 2,000 MG In NS Inj 80 100 / 100 ML @ 200 mls/hr IV.SIG METAL BED ASSEMBLER IAN Rx#:[id number] Oral 120 / 120 Anesthesia Amount 1500 / 1500 Output: Estimated Blood Loss 125 / 125 Urine Amount (Catheter) 500 / 500 Indwelling Urethral Catheter 500 / 500 Chest Tube Drainage 20 / 20 #1 Right Upper 20 / 20 Other: # Voids 2 GENERAL: MBMN Wm, mild pain SKIN: Warm and dry. HEAD: Normocephalic. EYES: No scleral icterus. No injection or drainage. NECK: Supple, trachea midline. No JVD or lymphadenopathy. CARDIOVASCULAR: Regular rate and rhythm without murmurs, gallops, or rubs. RESPIRATORY: Breath sounds equal bilaterally. No accessory muscle use. Rt chest tube, small air leak GASTROINTESTINAL: Abdomen soft, non-tender, nondistended. MUSCULOSKELETAL: No cyanosis, or edema. BACK: Nontender without obvious deformity. No CVA tenderness. - Urinary Catheter Management Indwelling Urethral Catheter Cath placed during this visit: yes, but has since been removed by the nurse Reason for continuing: Decision to DC catheter Insertion date: 01/04/18 Insertion time: 12:24 Removal date: 01/04/18 Removal time: 17:55 Assessment and Plan - Plan IMPRESSION: 1. Right lung endobronchial mass, likely malignancy.s/p RULobectomy 2. Chronic obstructive pulmonary disease. 3. Peripheral artery disease, status post operative procedure done. 4. Nicotine abuse. 5. History of alcohol abuse. 6. The patient is homeless. PLAN: Chest tube to suction Aerosol nebs IV Solumedrol Supplement 02
[2018-01-04] MEDS: Senna/Docusate Sodium 8.6/50 MG Tablet PO SCH (20:06)
[2018-01-05] MEDS: MethylPREDNISolone Sod Succinate Inj 40 MG/ML Vial IV.PUSH SCH ×3 (02:47→16:22)
[2018-01-05 03:55] LABS: Hemoglobin 10.4 gm/dL (13.0-17.0); Mean Corpuscular HGB Conc 33.6 % (32.0-36.0); Mean Corpuscular Hemoglobin 33.9 pg (27.0-34.0); Mean Corpuscular Volume 100.8 fL (80.0-100.0); Mean Platelet Volume 9.1 fL (7.0-11.0); Platelet Count 234 th/mm3 (150-450); Red Blood Count 3.08 mil/mm3 (4.50-5.90); Red Cell Distribution Width 16.3 % (11.6-17.2); White Blood Count 24.1 th/mm3 (4.0-11.0)
[2018-01-05 04:26] LABS: Anion Gap 10 meq/L (5-15); Blood Urea Nitrogen 37 mg/dL (7-18); Calcium 7.3 mg/dL (8.5-10.1); Carbon Dioxide 27.5 meq/L (21.0-32.0); Chloride 97 meq/L (98-107); Glomerular Filtration Rate Greater Than 89 mL/min (>89); Glucose,Random 128 mg/dL (74-106); Potassium 4.4 meq/L (3.5-5.1); Sodium 134 meq/L (136-145)
[2018-01-05 04:44] LABS: Lymphocytes 2 % (9-44); Metamyelocytes 5 % (0-1); Monocytes 5 % (0-8)
[2018-01-05 04:45] LABS: Platelet Estimate Normal (Normal); Platelet Morphology Normal (Normal)
[2018-01-05] MEDS: Ketorolac Inj 30 MG/ML (IVP) Vial IV.PUSH SCH ×2 (05:03→13:33)
[2018-01-05] MEDS: Morphine Inj 30 MG/30 ML PCA.VIAL PCA PRN ×2 (05:04→13:36)
--- NOTE | 2018-01-05 06:12 | XR ---
EXAM DATE: 01/05/2018 5:49 AM EDT AGE/SEX: 62 years / Male INDICATIONS: Shortness of breath, possible pneumothorax. CLINICAL DATA: This is the patient's subsequent encounter. Patient reports that signs and symptoms h ave been present for 2 days and indicates a pain score of 4/10. MEDICAL/SURGICAL HISTORY: Chronic obstructive pulmonary disease. Hypertension. Lobectomy. COMPARISON: [facility] – [place], CHEST 1V SINGLE AP, 01/04/2018. . FINDINGS: There is a right-sided chest tube in place. A pneumothorax is not seen. There is a right subclavian l ine in place with tip overlying the SVC. The patient appears rotated towards the right. This increase d density at the medial right base. There is linear density at the left base. The costophrenic angles are grossly clear. CONCLUSION: No pneumothorax is seen. There is a right-sided chest tube. Bibasilar areas of suspected atelectasis. Electronically signed by: Skinny Sims MD 01/05/2018 6:11 AM EDT
--- NOTE | 2018-01-05 08:12 | P.PN ---
Subjective Interval history: This is a pleasant 62 y/o male with status post Right lower extremity revascularization was cleared by Vascular surgery for discharge needs to go on Aspirin 81 mg daily and Plavix 75 mg daily, photo print specialist following with Diagnosis of Endobronchial mass 01/05: With diagnosis Of right Upper lobe lung mass, Right upper lobe endobronchial obstruction with complete Collapse, COPD, status post Right posterolateral Muscle sparing thoracotomy, Right upper lobectomy, Mediastinal lymph node dissection, intercostal nerve block. 01/04/[address] Doctor Zaida Serrano, stable working with Physical Therapy no complaint, no nausea vomit or diarrhea. Physical Exam Vital signs: Vital Signs 01/04/18 09:00 01/04/18 11:22 01/04/18 16:08 Temperature 98.2 F Pulse Rate 75 82 80 Respiratory Rate 18 18 Blood Pressure 117/71 Pulse Oximetry 100 01/04/18 16:15 01/04/18 16:30 01/04/18 16:45 Temperature Pulse Rate 78 74 73 Respiratory Rate 24 16 16 Blood Pressure 113/70 105/71 106/57 L Pulse Oximetry 100 96 96 01/04/18 17:00 01/04/18 17:15 01/04/18 18:11 Temperature 98.1 F Pulse Rate 78 80 72 Respiratory Rate 16 18 17 Blood Pressure 105/55 L 95/57 L 105/61 Pulse Oximetry 97 97 95 01/04/18 18:31 01/04/18 19:00 01/04/18 20:00 Temperature 97.8 F Pulse Rate 69 74 68 Respiratory Rate 20 Blood Pressure 99/56 L Pulse Oximetry 98 01/04/18 20:36 01/04/18 21:56 01/04/18 22:58 Temperature Pulse Rate 74 65 Respiratory Rate Blood Pressure Pulse Oximetry 98 01/04/18 23:45 01/05/18 00:00 01/05/18 01:06 Temperature 98.1 F Pulse Rate 65 65 67 Respiratory Rate 21 Blood Pressure 101/57 L Pulse Oximetry 98 01/05/18 02:00 01/05/18 03:47 01/05/18 03:50 Temperature 97.9 F Pulse Rate 60 67 63 Respiratory Rate 18 Blood Pressure 112/56 L Pulse Oximetry 95 01/05/18 04:18 01/05/18 05:45 01/05/18 06:21 Temperature Pulse Rate 64 63 Respiratory Rate 20 Blood Pressure Pulse Oximetry 01/05/18 06:28 01/05/18 07:00 Temperature 97.5 F L Pulse Rate 61 56 L Respiratory Rate 19 Blood Pressure 108/65 Pulse Oximetry 97 Intake & Output 01/04/18 01/05/18 01/05/18 18:59 06:59 18:59 Intake Total 2720 / 2720 1220 / 1220 Output Total 645 / 645 850 / 850 Balance 2075 / 2075 370 / 370 Weight 80.5 kg Intake: IV 1100 / 1100 500 / 500 Ofirmev Inj 1,000 mg In 100 ml 300 / 300 @ 400 mls/hr IV.SIG Q6H [facility] Rx# :[id number] LR 1000 mL Inj 1,000 ML @ 30 1000 / 1000 mls/hr IV.SIG .Q24H [facility] Rx#: [id number] Ancef Inj 1,000 MG In NS Inj 200 / 200 100 ML @ 200 mls/hr IV.SIG Q8H [facility] Rx#:[id number] Ancef Inj 2,000 MG In NS Inj 80 100 / 100 ML @ 200 mls/hr IV.SIG PIERCING SPECIALIST IAN Rx#:[id number] Oral 120 / 120 720 / 720 Anesthesia Amount 1500 / 1500 Output: Urine 0 / 0 Estimated Blood Loss 125 / 125 Urine Amount (Catheter) 500 / 500 600 / 600 Indwelling Urethral Catheter 500 / 500 Straight 600 / 600 Chest Tube Drainage 20 / 20 250 / 250 #1 Right Upper 20 / 20 250 / 250 Narrative: GENERAL: No acute distress. SKIN: Warm and dry. HEAD: Normocephalic. EYES: No scleral icterus. No injection or drainage. NECK: Supple, trachea midline. No JVD. CARDIOVASCULAR: Regular rate and rhythm without murmurs, gallops, or rubs. RESPIRATORY: Severe decreased breath sounds bilateral, right posterior surgical wound. thoracostomy tube in place. GASTROINTESTINAL: Abdomen soft, non-tender, nondistended. MUSCULOSKELETAL: No cyanosis, or edema. BACK: Nontender without obvious deformity. No CVA tenderness. - Urinary Catheter Management Indwelling Urethral Catheter Cath placed during this visit: yes, but has since been removed by the nurse Reason for continuing: Decision to DC catheter Insertion date: 01/04/18 Insertion time: 12:24 Removal date: 01/04/18 Removal time: 17:55 Straight Cath placed during this visit: no Results - Labs CBC & Chem 7: 01/05/18 03:20 01/05/18 03:20 Laboratory Results - last 24 hr 01/03/18 01/05/18 01/05/18 05:09 03:20 03:20 WBC 24.1 H RBC 3.08 L Hgb 10.4 L Hct 31.0 L MCV 100.8 H MCH 33.9 MCHC 33.6 RDW 16.3 Plt Count 234 MPV 9.1 Prelim Diff (Auto) Manual diff required WBC Differential Manual diff final Seg Neuts % (Manual) 85 H Band Neuts % (Manual) 3 Lymphocytes % (Manual) 2 L Monocytes % (Manual) 5 Metamyelocytes % (Man) 5 H Abs Neuts (Manual) 22.4 H Differential Comment . Platelet Estimate Normal Platelet Morphology Normal Sodium 134 L Potassium 4.4 Chloride 97 L Carbon Dioxide 27.5 Anion Gap 10 BUN 37 H Creatinine 0.74 Estimated GFR Greater than 89 Random Glucose 128 H Calcium 7.3 L* D Prot Corrected Calcium 7.9 L Total Protein 6.0 L D Blood Type A Negative Blood Type Recheck Not needed Antibody Screen Negative MTS Gel Crossmatch See Detail - Imaging Impressions Chest X-Ray 01/04/18 15:40 CONCLUSION: 1. Mass lesion previously seen in the medial upper right lobe is no longer present characteristic of a reported history of lobectomy. 2. Expected volume loss in the right hemithorax. Thoracostomy tube in place without pneumothorax. 3. Right subclavian central venous catheter with the tip projecting over the central venous system. 4. Minimal atelectatic changes in the left lower lung field. Left lung is otherwise clear. Chest X-Ray 01/05/18 06:00 CONCLUSION: No pneumothorax is seen. There is a right-sided chest tube. Bibasilar areas of suspected atelectasis. - Procedures Date of procedure: 01/04/18 Anesthesia: GETA Surgeon: Zaida Serrano MD Operation and Findings: PREOPERATIVE DIAGNOSIS 1. Right Upper lobe Lung Mass 2. Right upper lobe endobronchial obstruction with complete collapse 3. COPD POSTOPERATIVE DIAGNOSIS same PROCEDURES 1. Right posterolateral Muscle Sparing Thoracotomy 2. Right Upper lobectomy 3. Mediastinal Lymph Node Dissection 4. Intercostal Nerve Block SURGEON Zaida Serrano MD Assessment and Plan - Plan 1. Right Lung endobronchial Mass Likely malignancy, status post Right posterolateral Muscle sparing thoracotomy, Right upper lobectomy, Mediastinal lymph node dissection, intercostal nerve block. 01/04/[address] Zaida Serrano. 2. PAD/left Lower extremity revascularization, management as per Vascular surgery, cleared for discharge on Plavix 75 mg and Aspirin 81 mg daily, anticoagulation as per Cardiothoracic surgery 3. Chronic Respiratory failure/COPD/Right lower lung collapse, Bronchodilator, Mucolytic incentive spirometry Steroids. 4. Alcohol abuse History of alcohol withdrawal CIWA protocol, No signs of withdrawal. 5. Tobacco abuse Strongly recommended to stop smoking. 6. Hypertension controlled continue Home medicines 6. Hyperlipidemia by history 7. Hypocalcemia replacing and following. DVT prophylaxis with SCDs. no chemical prophylaxis due to Hemoptysis. Code Status: Full code. Discussed Condition With: Patient and Physical Therapy. Discharge Planning: once cleared by photo print specialist and Cardiothoracic surgery.
[2018-01-05] MEDS: Budesonide-Formoterol 160/4.5 MCG 6 GM Inhaler INH SCH ×2 (08:43→21:14)
[2018-01-05] MEDS: Senna/Docusate Sodium 8.6/50 MG Tablet PO SCH ×2 (08:43→21:13)
[2018-01-05] MEDS: Lisinopril 10 MG Tablet PO SCH (08:43)
[2018-01-05] MEDS: guaiFENesin 600 MG ER Tablet PO SCH ×2 (08:43→21:13)
[2018-01-05] MEDS ORDERED: Calcium Chloride Inj 0.34 GM in Dextrose 5% in Water Inj 100 ML IV.SIG ONE ×2 (12:00)
--- NOTE | 2018-01-05 14:21 | P.PNCV ---
- Note Subjective/Hospital Course: 62/ male initially admitted a month ago for blood-tinged sputum, shortness of breath. CT chest at the time found a mass involving the right upper lobe bronchus with resultant collapse of the right upper lobe. He underwent bronchoscopy and was found to have a very large endobronchial mass obstructing the right upper lobe mainstem bronchus. He had post significant bleeding. Bronchial washings were attempted. The cytology was negative. He was then discharged home with recommendations to followup with Dr. Cameron Kovacs with Oncology, but was unable to see him in the clinic due insurance authorization. He presented again to the hospital with complaints of chest discomfort, swelling of his right lower extremity and was found to have an arterial obstruction and underwent a surgical revascularization by Dr. Locke on 12/26/2017. He had aortogram with right lower extremity angiogram, he had a right EIA orbital arthrectomy and angioplasty, right superficial artery NATIONAL SALES MANAGER. He placed a stent in the right superficial femoral artery. We were consulted due to this large mass. 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 The patient is homeless. Hyperlipidemia, hypertension, history of MRSA, tobacco abuse. 12/30 pt doing fair, still SOB with any exertion for surgery on Tue / Right Thoracotomy / right upper lobectomy 01/03 stable for surgery in am on room air 01/04 surgery 1. Right posterolateral Muscle Sparing Thoracotomy 2. Right Upper lobectomy 3. Mediastinal Lymph Node Dissection Objective: Vital Signs - 24 hr 01/04/18 16:08 01/04/18 16:15 01/04/18 16:30 Temperature 98.2 F Pulse Rate 80 78 74 Respiratory Rate 18 24 16 Blood Pressure 117/71 113/70 105/71 Pulse Oximetry 100 100 96 01/04/18 16:45 01/04/18 17:00 01/04/18 17:15 Temperature Pulse Rate 73 78 80 Respiratory Rate 16 16 18 Blood Pressure 106/57 L 105/55 L 95/57 L Pulse Oximetry 96 97 97 01/04/18 18:11 01/04/18 18:31 01/04/18 19:00 Temperature 98.1 F 97.8 F Pulse Rate 72 69 74 Respiratory Rate 17 20 Blood Pressure 105/61 99/56 L Pulse Oximetry 95 98 01/04/18 20:00 01/04/18 20:36 01/04/18 21:56 Temperature Pulse Rate 68 74 Respiratory Rate Blood Pressure Pulse Oximetry 98 01/04/18 22:58 01/04/18 23:45 01/05/18 00:00 Temperature 98.1 F Pulse Rate 65 65 65 Respiratory Rate 21 Blood Pressure 101/57 L Pulse Oximetry 98 01/05/18 01:06 01/05/18 02:00 01/05/18 03:47 Temperature 97.9 F Pulse Rate 67 60 67 Respiratory Rate 18 Blood Pressure 112/56 L Pulse Oximetry 95 01/05/18 03:50 01/05/18 04:18 01/05/18 05:45 Temperature Pulse Rate 63 64 63 Respiratory Rate Blood Pressure Pulse Oximetry 01/05/18 06:21 01/05/18 06:28 01/05/18 07:00 Temperature 97.5 F L Pulse Rate 61 56 L Respiratory Rate 20 19 Blood Pressure 108/65 Pulse Oximetry 97 01/05/18 08:00 01/05/18 09:00 01/05/18 10:00 Temperature Pulse Rate 65 66 60 Respiratory Rate Blood Pressure Pulse Oximetry 01/05/18 11:00 01/05/18 12:00 01/05/18 13:00 Temperature 97.6 F Pulse Rate 67 73 71 Respiratory Rate 20 Blood Pressure 105/52 L Pulse Oximetry 97 01/05/18 14:00 Temperature Pulse Rate 72 Respiratory Rate Blood Pressure Pulse Oximetry GENERAL: A&O x 3 SKIN: Warm and dry. incision intact and well approximated to right posterior chest wall HEAD: Normocephalic. EYES: No scleral icterus. No injection or drainage. NECK: Supple, trachea midline. No JVD or lymphadenopathy. CARDIOVASCULAR: Regular rate and rhythm without murmurs, gallops, or rubs. RESPIRATORY: Breath sounds equal bilaterally. No accessory muscle use. slightly diminished right lower base / chest tube to wall suction , no air leak GASTROINTESTINAL: Abdomen soft, non-tender, nondistended. MUSCULOSKELETAL: No cyanosis, or edema. BACK: Nontender without obvious deformity. No CVA tenderness. Labs: Laboratory Results - last 12 hr 01/05/18 01/05/18 01/05/18 03:20 03:20 03:20 WBC 24.1 H RBC 3.08 L Hgb 10.4 L Hct 31.0 L MCV 100.8 H MCH 33.9 MCHC 33.6 RDW 16.3 Plt Count 234 MPV 9.1 Prelim Diff (Auto) Manual diff required WBC Differential Manual diff final Seg Neuts % (Manual) 85 H Band Neuts % (Manual) 3 Lymphocytes % (Manual) 2 L Monocytes % (Manual) 5 Metamyelocytes % (Man) 5 H Abs Neuts (Manual) 22.4 H Differential Comment . Platelet Estimate Normal Platelet Morphology Normal Sodium 134 L Potassium 4.4 Chloride 97 L Carbon Dioxide 27.5 Anion Gap 10 BUN 37 H Creatinine 0.74 Estimated GFR Greater than 89 Random Glucose 128 H Calcium 7.3 L* D Prot Corrected Calcium 7.9 L Magnesium 2.5 Total Protein 6.0 L D Result Diagrams: 01/05/18 03:20 01/05/18 03:20 - Plan (1) Collapse of right lung Plan: right lung mass for surgery on TUE (3) Claudication in peripheral vascular disease Plan: on ASA, ok to start plavix after surgery and when chest tubes out (4) S/P thoracotomy Plan: pain control path pending OOB pulm toileting
[2018-01-05] MEDS: Enoxaparin Inj 30 MG/0.3 ML Syringe SQ SCH (16:22)
--- NOTE | 2018-01-05 18:30 | P.PNPL ---
Subjective Interval history: 62 YOWM with COPD,RUL endobronchial mass, PAD Has mild wheezing No Fever No CP PFT mod COPD, FEV1 2.07L Had Rt upper lobectomy Mild pain Up in chair Physical Exam Vital signs: Vital Signs 01/04/18 18:31 01/04/18 19:00 01/04/18 20:00 Temperature 97.8 F Pulse Rate 69 74 68 Respiratory Rate 20 Blood Pressure 99/56 L Pulse Oximetry 98 01/04/18 20:36 01/04/18 21:56 01/04/18 22:58 Temperature Pulse Rate 74 65 Respiratory Rate Blood Pressure Pulse Oximetry 98 01/04/18 23:45 01/05/18 00:00 01/05/18 01:06 Temperature 98.1 F Pulse Rate 65 65 67 Respiratory Rate 21 Blood Pressure 101/57 L Pulse Oximetry 98 01/05/18 02:00 01/05/18 03:47 01/05/18 03:50 Temperature 97.9 F Pulse Rate 60 67 63 Respiratory Rate 18 Blood Pressure 112/56 L Pulse Oximetry 95 01/05/18 04:18 01/05/18 05:45 01/05/18 06:21 Temperature Pulse Rate 64 63 Respiratory Rate 20 Blood Pressure Pulse Oximetry 01/05/18 06:28 01/05/18 07:00 01/05/18 08:00 Temperature 97.5 F L Pulse Rate 61 56 L 65 Respiratory Rate 19 Blood Pressure 108/65 Pulse Oximetry 97 01/05/18 09:00 01/05/18 10:00 01/05/18 11:00 Temperature 97.6 F Pulse Rate 66 60 67 Respiratory Rate 20 Blood Pressure 105/52 L Pulse Oximetry 97 01/05/18 12:00 01/05/18 13:00 01/05/18 14:00 Temperature Pulse Rate 73 71 72 Respiratory Rate Blood Pressure Pulse Oximetry 01/05/18 14:26 01/05/18 14:27 01/05/18 14:46 Temperature Pulse Rate Respiratory Rate 19 19 19 Blood Pressure Pulse Oximetry 01/05/18 15:00 01/05/18 16:00 01/05/18 17:00 Temperature 97.2 F L Pulse Rate 66 75 71 Respiratory Rate 21 Blood Pressure 92/53 L Pulse Oximetry 96 01/05/18 18:00 Temperature Pulse Rate 68 Respiratory Rate Blood Pressure Pulse Oximetry Intake & Output 01/04/18 01/05/18 01/05/18 18:59 06:59 18:59 Intake Total 2720 / 2720 1220 / 1220 1283.4 / 1283.4 Output Total 645 / 645 850 / 850 545 / 545 Balance 5 / 2075 370 / 370 738.4 / 738.4 Weight 80.5 kg Intake: IV 1100 / 1100 500 / 500 363.4 / 363.4 Ofirmev Inj 1,000 mg In 100 ml 300 / 300 100 / 100 @ 400 mls/hr IV.SIG Q6H [facility] Rx# :[id number] Calcium Chloride Inj 0.34 GM In 103.4 / 103.4 D5W Inj 100 ML @ 103.4 mls/hr IV.SIG ONCE ONE Rx#:[id number] LR 1000 mL Inj 1,000 ML @ 30 1000 / 1000 60 / 60 mls/hr IV.SIG .Q24H IAN Rx#: [id number] Ancef Inj 1,000 MG In NS Inj 200 / 200 100 / 100 100 ML @ 200 mls/hr IV.SIG Q8H IAN Rx#:[id number] Ancef Inj 2,000 MG In NS Inj 80 100 / 100 ML @ 200 mls/hr IV.SIG ARMAMENT MECHANIC IAN Rx#:[id number] Oral 120 / 120 720 / 720 920 / 920 Anesthesia Amount 1500 / 1500 Output: Urine 0 / 0 Estimated Blood Loss 125 / 125 Urine Amount (Catheter) 500 / 500 600 / 600 475 / 475 Indwelling Urethral Catheter 500 / 500 Straight 600 / 600 475 / 475 Chest Tube Drainage 20 / 20 250 / 250 70 / 70 #1 Right Upper 20 / 20 250 / 250 70 / 70 GENERAL: WBWN,WM NAD SKIN: Warm and dry. HEAD: Normocephalic. EYES: No scleral icterus. No injection or drainage. NECK: Supple, trachea midline. No JVD or lymphadenopathy. CARDIOVASCULAR: Regular rate and rhythm without murmurs, gallops, or rubs. RESPIRATORY: Breath sounds equal bilaterally. No accessory muscle use. Rt chest tube, small air leak GASTROINTESTINAL: Abdomen soft, non-tender, nondistended. MUSCULOSKELETAL: No cyanosis, or edema. BACK: Nontender without obvious deformity. No CVA tenderness. - Urinary Catheter Management Indwelling Urethral Catheter Cath placed during this visit: yes, but has since been removed by the nurse Reason for continuing: Not indwelling catheter Insertion date: 01/04/18 Insertion time: 12:24 Removal date: 01/04/18 Removal time: 17:55 Straight Cath placed during this visit: yes, but has since been removed by the nurse Reason for continuing: Not indwelling catheter Insertion date: 01/05/18 Insertion time: 17:00 Removal date: 01/05/18 Removal time: 17:08 Assessment and Plan - Plan IMPRESSION: 1. Right lung endobronchial mass, likely malignancy.s/p RULobectomy 2. Chronic obstructive pulmonary disease. 3. Peripheral artery disease, status post operative procedure done. 4. Nicotine abuse. 5. History of alcohol abuse. 6. The patient is homeless. PLAN: Chest tube to suction Aerosol nebs IV Solumedrol Supplement 02 Check path
[2018-01-05] MEDS: Temazepam 15 MG Capsule PO PRN (21:16)
[2018-01-06] MEDS: Morphine Inj 30 MG/30 ML PCA.VIAL PCA PRN ×3 (01:56→20:33)
[2018-01-06] MEDS: MethylPREDNISolone Sod Succinate Inj 40 MG/ML Vial IV.PUSH SCH ×3 (01:56→20:36)
[2018-01-06 04:46] LABS: Hematocrit 32.8 % (39.0-51.0); Hemoglobin 10.9 gm/dL (13.0-17.0); Mean Corpuscular HGB Conc 33.3 % (32.0-36.0); Mean Platelet Volume 9.1 fL (7.0-11.0); Platelet Count 214 th/mm3 (150-450); Red Blood Count 3.22 mil/mm3 (4.50-5.90); Red Cell Distribution Width 16.4 % (11.6-17.2); White Blood Count 23.3 th/mm3 (4.0-11.0)
[2018-01-06 05:14] LABS: Anion Gap 7 meq/L (5-15); Blood Urea Nitrogen 34 mg/dL (7-18); Calcium 7.8 mg/dL (8.5-10.1); Carbon Dioxide 29.3 meq/L (21.0-32.0); Chloride 96 meq/L (98-107); Glomerular Filtration Rate Greater Than 89 mL/min (>89); Glucose,Random 122 mg/dL (74-106); Potassium 4.7 meq/L (3.5-5.1); Sodium 132 meq/L (136-145)
[2018-01-06] MEDS: Senna/Docusate Sodium 8.6/50 MG Tablet PO SCH ×2 (09:02→20:35)
[2018-01-06] MEDS: guaiFENesin 600 MG ER Tablet PO SCH ×2 (09:02→20:35)
[2018-01-06] MEDS: Budesonide-Formoterol 160/4.5 MCG 6 GM Inhaler INH SCH ×2 (09:03→20:36)
--- NOTE | 2018-01-06 11:07 | P.PN ---
Subjective Interval history: This is a pleasant 62 y/o male with status post Right lower extremity revascularization was cleared by Vascular surgery for discharge needs to go on Aspirin 81 mg daily and Plavix 75 mg daily, revenue specialist following with Diagnosis of Endobronchial mass 01/05: With diagnosis Of right Upper lobe lung mass, Right upper lobe endobronchial obstruction with complete Collapse, COPD, status post Right posterolateral Muscle sparing thoracotomy, Right upper lobectomy, Mediastinal lymph node dissection, intercostal nerve block. 01/04/[address] Doctor Zaida Serrano, stable working with Physical Therapy no complaint. 01/06: Seen in his bedroom in the presence of nurse and discussed with Cardiothoracic LIBRARY ATTENDANT patient was not able to void and needed to place again a Peres cath, was started on Flomax also due to Leukocytosis worsening and worsening respiratory sandoval asked for CXR , UA, Blood cultures, started on Zosyn and following. as per patient has Moderate respiratory distress and Anxiety. Physical Exam Vital signs: Vital Signs 01/05/18 11:00 01/05/18 12:00 01/05/18 13:00 Temperature 97.6 F Pulse Rate 67 73 71 Respiratory Rate 20 Blood Pressure 105/52 L Pulse Oximetry 97 01/05/18 14:00 01/05/18 14:26 01/05/18 14:27 Temperature Pulse Rate 72 Respiratory Rate 19 19 Blood Pressure Pulse Oximetry 01/05/18 14:46 01/05/18 15:00 01/05/18 16:00 Temperature 97.2 F L Pulse Rate 66 75 Respiratory Rate 19 21 Blood Pressure 92/53 L Pulse Oximetry 96 01/05/18 17:00 01/05/18 18:00 01/05/18 19:20 Temperature 98.4 F Pulse Rate 71 68 66 Respiratory Rate 20 Blood Pressure 113/57 L Pulse Oximetry 95 01/05/18 20:00 01/05/18 21:00 01/05/18 22:00 Temperature Pulse Rate 72 68 65 Respiratory Rate Blood Pressure Pulse Oximetry 01/05/18 23:22 01/05/18 23:33 01/06/18 00:19 Temperature 97.8 F Pulse Rate 72 71 78 Respiratory Rate 21 Blood Pressure 119/61 Pulse Oximetry 97 01/06/18 01:31 01/06/18 02:15 01/06/18 03:00 Temperature 97.6 F Pulse Rate 71 70 72 Respiratory Rate 20 Blood Pressure 116/61 Pulse Oximetry 97 01/06/18 04:27 01/06/18 05:00 01/06/18 06:00 Temperature Pulse Rate 75 80 79 Respiratory Rate Blood Pressure Pulse Oximetry 01/06/18 07:00 01/06/18 08:00 01/06/18 10:53 Temperature 97.7 F Pulse Rate 78 79 83 Respiratory Rate 18 16 Blood Pressure 89/55 L Pulse Oximetry 98 96 Intake & Output 01/05/18 01/06/18 01/06/18 18:59 06:59 18:59 Intake Total 1283.4 / 1283.4 480 / 480 Output Total 545 / 545 1140 / 1140 Balance 738.4 / 738.4 -660 / -660 Weight 81.5 kg Intake: IV 363.4 / 363.4 Ofirmev Inj 1,000 mg In 100 ml 100 / 100 @ 400 mls/hr IV.SIG Q6H [facility] Rx# :[id number] Calcium Chloride Inj 0.34 GM In 103.4 / 103.4 D5W Inj 100 ML @ 103.4 mls/hr IV.SIG ONCE ONE Rx#:[id number] LR 1000 mL Inj 1,000 ML @ 30 60 / 60 mls/hr IV.SIG .Q24H [facility] Rx#: [id number] Ancef Inj 1,000 MG In NS Inj 100 / 100 100 ML @ 200 mls/hr IV.SIG Q8H [facility] Rx#:[id number] Oral 920 / 920 480 / 480 Output: Urine Amount (Catheter) 475 / 475 1050 / 1050 Indwelling Urethral Catheter 1050 / 1050 Straight 475 / 475 Chest Tube Drainage 70 / 70 90 / 90 #1 Right Upper 70 / 70 90 / 90 Other: Date of Last Bowel Movement 01/03/18 # Incontinent Bowel Movements 0 Narrative: GENERAL: No acute distress. SKIN: Warm and dry. HEAD: Normocephalic. EYES: No scleral icterus. No injection or drainage. NECK: Supple, trachea midline. No JVD. CARDIOVASCULAR: Regular rate and rhythm without murmurs, gallops, or rubs. RESPIRATORY: Severe decreased breath sounds bilateral, right posterior surgical wound. chest tube in place continue suction, harsh respiratory sounds worsening. GASTROINTESTINAL: Abdomen soft, non-tender, nondistended. MUSCULOSKELETAL: No cyanosis, or edema. BACK: Nontender without obvious deformity. No CVA tenderness. - Urinary Catheter Management Indwelling Urethral Catheter Cath placed during this visit: yes, but has since been removed by the nurse Reason for continuing: Acute urinary retention Insertion date: 01/05/18 Insertion time: 22:00 Removal date: 01/04/18 Removal time: 17:55 Straight Cath placed during this visit: yes, but has since been removed by the nurse Reason for continuing: Acute urinary retention Insertion date: 01/05/18 Insertion time: 17:00 Removal date: 01/05/18 Removal time: 17:08 Results - Labs CBC & Chem 7: 01/06/18 04:14 01/06/18 04:14 Laboratory Results - last 24 hr 01/03/18 01/06/18 01/06/18 05:09 04:14 04:14 WBC 23.3 H RBC 3.22 L Hgb 10.9 L Hct 32.8 L MCV 102.0 H MCH 34.0 MCHC 33.3 RDW 16.4 Plt Count 214 MPV 9.1 Sodium 132 L Potassium 4.7 Chloride 96 L Carbon Dioxide 29.3 Anion Gap 7 BUN 34 H Creatinine 0.72 Estimated GFR Greater than 89 Random Glucose 122 H Calcium 7.8 L MTS Gel Crossmatch See Detail - Procedures Date of procedure: 01/04/18 Anesthesia: GETA Surgeon: Zaida Serrano MD Operation and Findings: PREOPERATIVE DIAGNOSIS 1. Right Upper lobe Lung Mass 2. Right upper lobe endobronchial obstruction with complete collapse 3. COPD POSTOPERATIVE DIAGNOSIS same PROCEDURES 1. Right posterolateral Muscle Sparing Thoracotomy 2. Right Upper lobectomy 3. Mediastinal Lymph Node Dissection 4. Intercostal Nerve Block SURGEON Zaida Serrano MD Assessment and Plan - Plan 1. Right Lung endobronchial Mass Likely malignancy, status post Right posterolateral Muscle sparing thoracotomy, Right upper lobectomy, Mediastinal lymph node dissection, intercostal nerve block. 01/04/[address] Zaida Serrano. discussed with Cardiothoracic LIBRARY ATTENDANT due to worsening respiratory and Leukocytosis was asked for blood cultures UA, CXR, started on Zosyn. 2. PAD/left Lower extremity revascularization, management as per Vascular surgery, cleared for discharge on Plavix 75 mg and Aspirin 81 mg daily, anticoagulation as per Cardiothoracic surgery 3. Chronic Respiratory failure/COPD/Right lower lung collapse, Bronchodilator, Mucolytic incentive spirometry Steroids. 4. Alcohol abuse History of alcohol withdrawal CIWA protocol, No signs of withdrawal. 5. Tobacco abuse Strongly recommended to stop smoking. 6. Hypertension patient today developed Hypotension removed Lisinopril for now and following, patient totally asymptomatic 6. Hyperlipidemia by history 7. Hypocalcemia replacing and following. 8. Urinary retention Peres cath placed and Flomax started. DVT prophylaxis with Lovenox as per Cardiothoracic surgery. Code Status: full Code Discussed Condition With: Patient, Nurse and Cardiothoracic LIBRARY ATTENDANT. Discharge Planning: once cleared by revenue specialist and Cardiothoracic surgery.
[2018-01-06] MEDS: Piperacil/Tazo 4.5 GM Premix 4.5 GM/100 ML BAG IV.SIG SCH ×2 (11:52→17:44)
--- NOTE | 2018-01-06 11:52 | XR ---
EXAM DATE: 01/06/2018 11:30 AM EDT AGE/SEX: 62 years / Male INDICATIONS: R/o pneumonia CLINICAL DATA: This is the patient's initial encounter. Patient reports that signs and symptoms have been present for 4 - 6 days and indicates a pain score of 0/10. MEDICAL/SURGICAL HISTORY: Chronic obstructive pulmonary disease. Hypertension. peripheral abran rial disease Lobectomy. COMPARISON: [facility] [place], CHEST 1V SINGLE AP, 01/05/2018. . FINDINGS: A right-sided chest tube is present without pneumothorax. Right central line tip near cavoatrial junc tion. Minimal basilar atelectasis. No significant effusion. CONCLUSION: Right chest tube without pneumothorax. Right central line as above. Minimal basilar atelectasis. Electronically signed by: Martin Hernandez MD 01/06/2018 11:50 AM EDT
--- NOTE | 2018-01-06 14:21 | P.PNPL ---
Subjective Interval history: 62 YOWM with COPD,RUL endobronchial mass, PAD Has mild wheezing No Fever No CP Had Rt upper lobectomy Mild pain Up in chair Physical Exam Vital signs: Vital Signs 01/05/18 14:26 01/05/18 14:27 01/05/18 14:46 Temperature Pulse Rate Respiratory Rate 19 19 19 Blood Pressure Pulse Oximetry 01/05/18 15:00 01/05/18 16:00 01/05/18 17:00 Temperature 97.2 F L Pulse Rate 66 75 71 Respiratory Rate 21 Blood Pressure 92/53 L Pulse Oximetry 96 01/05/18 18:00 01/05/18 19:20 01/05/18 20:00 Temperature 98.4 F Pulse Rate 68 66 72 Respiratory Rate 20 Blood Pressure 113/57 L Pulse Oximetry 95 01/05/18 21:00 01/05/18 22:00 01/05/18 23:22 Temperature Pulse Rate 68 65 72 Respiratory Rate Blood Pressure Pulse Oximetry 01/05/18 23:33 01/06/18 00:19 01/06/18 01:31 Temperature 97.8 F Pulse Rate 71 78 71 Respiratory Rate 21 Blood Pressure 119/61 Pulse Oximetry 97 01/06/18 02:15 01/06/18 03:00 01/06/18 04:27 Temperature 97.6 F Pulse Rate 70 72 75 Respiratory Rate 20 Blood Pressure 116/61 Pulse Oximetry 97 01/06/18 05:00 01/06/18 06:00 01/06/18 07:00 Temperature 97.7 F Pulse Rate 80 79 78 Respiratory Rate 18 Blood Pressure 89/55 L Pulse Oximetry 98 01/06/18 08:00 01/06/18 10:53 Temperature Pulse Rate 79 83 Respiratory Rate 16 Blood Pressure Pulse Oximetry 96 Intake & Output 01/05/18 01/06/18 01/06/18 18:59 06:59 18:59 Intake Total 1283.4 / 1283.4 480 / 480 Output Total 545 / 545 1140 / 1140 Balance 738.4 / 738.4 -660 / -660 Weight 81.5 kg Intake: IV 363.4 / 363.4 Ofirmev Inj 1,000 mg In 100 ml 100 / 100 @ 400 mls/hr IV.SIG Q6H [facility] Rx# :[id number] Calcium Chloride Inj 0.34 GM In 103.4 / 103.4 D5W Inj 100 ML @ 103.4 mls/hr IV.SIG ONCE ONE Rx#:[id number] LR 1000 mL Inj 1,000 ML @ 30 60 / 60 mls/hr IV.SIG .Q24H [facility] Rx#: [id number] Ancef Inj 1,000 MG In NS Inj 100 / 100 100 ML @ 200 mls/hr IV.SIG Q8H [facility] Rx#:[id number] Oral 920 / 920 480 / 480 Output: Urine Amount (Catheter) 475 / 475 1050 / 1050 Indwelling Urethral Catheter 1050 / 1050 Straight 475 / 475 Chest Tube Drainage 70 / 70 90 / 90 #1 Right Upper 70 / 70 90 / 90 Other: Date of Last Bowel Movement 01/03/18 # Incontinent Bowel Movements 0 GENERAL: WBWn WM, NAD SKIN: Warm and dry. HEAD: Normocephalic. EYES: No scleral icterus. No injection or drainage. NECK: Supple, trachea midline. No JVD or lymphadenopathy. CARDIOVASCULAR: Regular rate and rhythm without murmurs, gallops, or rubs. RESPIRATORY: Breath sounds equal bilaterally. No accessory muscle use. Rt chest tube draining GASTROINTESTINAL: Abdomen soft, non-tender, nondistended. MUSCULOSKELETAL: No cyanosis, or edema. BACK: Nontender without obvious deformity. No CVA tenderness. - Urinary Catheter Management Indwelling Urethral Catheter Cath placed during this visit: yes, but has since been removed by the nurse Reason for continuing: Acute urinary retention Insertion date: 01/05/18 Insertion time: 22:00 Removal date: 01/04/18 Removal time: 17:55 Straight Cath placed during this visit: yes, but has since been removed by the nurse Reason for continuing: Acute urinary retention Insertion date: 01/05/18 Insertion time: 17:00 Removal date: 01/05/18 Removal time: 17:08 Assessment and Plan - Plan IMPRESSION: 1. Right lung endobronchial mass, likely malignancy.s/p RULobectomy 2. Chronic obstructive pulmonary disease. 3. Peripheral artery disease, status post operative procedure done. 4. Nicotine abuse. 5. History of alcohol abuse. 6. The patient is homeless. PLAN: Chest tube to suction Aerosol nebs IV Solumedrol Supplement 02 Check path, still pending
--- NOTE | 2018-01-06 14:51 | P.PNCV ---
- Note Subjective/Hospital Course: 62/ male initially admitted a month ago for blood-tinged sputum, shortness of breath. CT chest at the time found a mass involving the right upper lobe bronchus with resultant collapse of the right upper lobe. He underwent bronchoscopy and was found to have a very large endobronchial mass obstructing the right upper lobe mainstem bronchus. He had post significant bleeding. Bronchial washings were attempted. The cytology was negative. He was then discharged home with recommendations to followup with Dr. Cameron Kovacs with Oncology, but was unable to see him in the clinic due insurance authorization. He presented again to the hospital with complaints of chest discomfort, swelling of his right lower extremity and was found to have an arterial obstruction and underwent a surgical revascularization by Dr. Locke on 12/26/2017. 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 He placed a stent in the right superficial femoral artery. We were consulted due to this large mass. 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 The patient is homeless. Hyperlipidemia, hypertension, history of MRSA, tobacco abuse. 12/30 pt doing fair, still SOB with any exertion for surgery on Tue / Right Thoracotomy / right upper lobectomy 01/03 stable for surgery in am on room air 01/04 surgery 1. Right posterolateral Muscle Sparing Thoracotomy 2. Right Upper lobectomy 3. Mediastinal Lymph Node Dissection 01/05 pt needs aggressive pulm toileting pain controlled 01/06 worsening coarse breath sounds, wheezing leukocytosis despite weaning steroids repeat CXR in am check cultures, pt also had some urinary retention last night, required replacement of hartman cath start flomax start zosyn / dc CVC line Objective: Vital Signs - 24 hr 01/05/18 14:46 01/05/18 15:00 01/05/18 16:00 Temperature 97.2 F L Pulse Rate 66 75 Respiratory Rate 19 21 Blood Pressure 92/53 L Pulse Oximetry 96 01/05/18 17:00 01/05/18 18:00 01/05/18 19:20 Temperature 98.4 F Pulse Rate 71 68 66 Respiratory Rate 20 Blood Pressure 113/57 L Pulse Oximetry 95 01/05/18 20:00 01/05/18 21:00 01/05/18 22:00 Temperature Pulse Rate 72 68 65 Respiratory Rate Blood Pressure Pulse Oximetry 01/05/18 23:22 01/05/18 23:33 01/06/18 00:19 Temperature 97.8 F Pulse Rate 72 71 78 Respiratory Rate 21 Blood Pressure 119/61 Pulse Oximetry 97 01/06/18 01:31 01/06/18 02:15 01/06/18 03:00 Temperature 97.6 F Pulse Rate 71 70 72 Respiratory Rate 20 Blood Pressure 116/61 Pulse Oximetry 97 01/06/18 04:27 01/06/18 05:00 01/06/18 06:00 Temperature Pulse Rate 75 80 79 Respiratory Rate Blood Pressure Pulse Oximetry 01/06/18 07:00 01/06/18 08:00 01/06/18 10:53 Temperature 97.7 F Pulse Rate 78 79 83 Respiratory Rate 18 16 Blood Pressure 89/55 L Pulse Oximetry 98 96 GENERAL: A&O x 3 SKIN: Warm and dry. incision intact and well approximated right posterior lateral chest wall HEAD: Normocephalic. EYES: No scleral icterus. No injection or drainage. NECK: Supple, trachea midline. No JVD or lymphadenopathy. CARDIOVASCULAR: Regular rate and rhythm without murmurs, gallops, or rubs. RESPIRATORY: Breath sounds equal bilaterally. No accessory muscle use. diminished right upper lobe / chest tube to wall suction / intermittent air leak GASTROINTESTINAL: Abdomen soft, non-tender, nondistended. MUSCULOSKELETAL: No cyanosis, or edema. BACK: Nontender without obvious deformity. No CVA tenderness. Labs: Laboratory Results - last 12 hr 01/03/18 01/06/18 01/06/18 05:09 04:14 04:14 WBC 23.3 H RBC 3.22 L Hgb 10.9 L Hct 32.8 L MCV 102.0 H MCH 34.0 MCHC 33.3 RDW 16.4 Plt Count 214 MPV 9.1 Sodium 132 L Potassium 4.7 Chloride 96 L Carbon Dioxide 29.3 Anion Gap 7 BUN 34 H Creatinine 0.72 Estimated GFR Greater than 89 Random Glucose 122 H Calcium 7.8 L MTS Gel Crossmatch See Detail Result Diagrams: 01/06/18 04:14 01/06/18 04:14 Telemetry: NSR - Plan (1) Collapse of right lung Plan: right lung mass (2) COPD exacerbation Plan: wean steroids (3) Claudication in peripheral vascular disease Plan: on ASA, ok to start plavix after surgery and when chest tubes out (4) S/P thoracotomy Plan: pain control path pending OOB pulm toileting leukocytosis / despite weaning steroids OOB ambulate f/u CXR in am cultures pending
[2018-01-06] MEDS: Enoxaparin Inj 30 MG/0.3 ML Syringe SQ SCH (15:19)
[2018-01-06 16:10] LABS: Bilirubin,Urine Negative (Negative); Clarity,Urine Hazy (Clear); Color,Urine Yellow (Yellw/Straw); Glucose,Urine (UA) Negative (Negative); Hyaline Casts,Urine 3 /lpf (0-3); Leukocyte Esterase,Urine Moderate (Negative); Nitrite,Urine Negative (Negative); Specific Gravity,Urine 1.027 (1.002-1.035)
[2018-01-07] MEDS: Piperacil/Tazo 4.5 GM Premix 4.5 GM/100 ML BAG IV.SIG SCH ×4 (00:37→16:41)
[2018-01-07 05:09] LABS: Hematocrit 29.9 % (39.0-51.0); Mean Corpuscular HGB Conc 33.5 % (32.0-36.0); Mean Corpuscular Hemoglobin 33.9 pg (27.0-34.0); Mean Corpuscular Volume 101.4 fL (80.0-100.0); Mean Platelet Volume 9.4 fL (7.0-11.0); Platelet Count 180 th/mm3 (150-450); Red Blood Count 2.95 mil/mm3 (4.50-5.90); Red Cell Distribution Width 16.6 % (11.6-17.2); White Blood Count 23.4 th/mm3 (4.0-11.0)
[2018-01-07 05:27] LABS: Anion Gap 7 meq/L (5-15); Blood Urea Nitrogen 26 mg/dL (7-18); Calcium 7.6 mg/dL (8.5-10.1); Carbon Dioxide 29.6 meq/L (21.0-32.0); Chloride 97 meq/L (98-107); Glomerular Filtration Rate Greater Than 89 mL/min (>89); Glucose,Random 124 mg/dL (74-106); Potassium 4.2 meq/L (3.5-5.1); Sodium 134 meq/L (136-145)
[2018-01-07] MEDS: Morphine Inj 30 MG/30 ML PCA.VIAL PCA PRN ×2 (05:34→17:57)
[2018-01-07] MEDS: MethylPREDNISolone Sod Succinate Inj 40 MG/ML Vial IV.PUSH SCH ×2 (08:55→21:30)
[2018-01-07] MEDS: Senna/Docusate Sodium 8.6/50 MG Tablet PO SCH ×2 (08:55→21:34)
[2018-01-07] MEDS: Budesonide-Formoterol 160/4.5 MCG 6 GM Inhaler INH SCH ×2 (08:56→21:32)
[2018-01-07] MEDS: guaiFENesin 600 MG ER Tablet PO SCH ×2 (08:56→21:31)
--- NOTE | 2018-01-07 09:51 | P.PN ---
Subjective Interval history: This is a pleasant 62 y/o male with status post Right lower extremity revascularization was cleared by Vascular surgery for discharge needs to go on Aspirin 81 mg daily and Plavix 75 mg daily, [facility] specialists following with Diagnosis of Endobronchial mass 01/05: With diagnosis Of right Upper lobe lung mass, Right upper lobe endobronchial obstruction with complete Collapse, COPD, status post Right posterolateral Muscle sparing thoracotomy, Right upper lobectomy, Mediastinal lymph node dissection, intercostal nerve block. 01/04/18 [address] Doctor Zaida Serrano, stable working with Physical Therapy no complaint. 01/06: Seen in his bedroom in the presence of nurse and discussed with Cardiothoracic FELT PAD CUTTER patient was not able to void and needed to place again a Peres cath, was started on Flomax also due to Leukocytosis worsening and worsening respiratory sandoval asked for CXR , UA, Blood cultures, started on Zosyn and following. as per patient has Moderate respiratory distress and Anxiety. 01/07: Stable in his bedroom, discussed with nurse, no change continue improving condition no nausea, vomit or diarrhea. Physical Exam Vital signs: Vital Signs 01/06/18 10:00 01/06/18 10:53 01/06/18 11:00 Temperature 98.9 F Pulse Rate 80 83 90 Respiratory Rate 16 14 Blood Pressure 119/66 Pulse Oximetry 96 01/06/18 12:00 01/06/18 13:00 01/06/18 14:00 Temperature Pulse Rate 86 92 H 92 H Respiratory Rate Blood Pressure Pulse Oximetry 01/06/18 15:00 01/06/18 16:00 01/06/18 17:00 Temperature 97.5 F L Pulse Rate 79 92 H 86 Respiratory Rate 14 Blood Pressure 117/66 Pulse Oximetry 96 01/06/18 18:00 01/06/18 19:00 01/06/18 20:00 Temperature 97.9 F Pulse Rate 97 H 84 82 Respiratory Rate 16 Blood Pressure 133/69 Pulse Oximetry 01/06/18 20:47 01/06/18 21:00 01/06/18 22:00 Temperature Pulse Rate 84 80 80 Respiratory Rate 18 Blood Pressure Pulse Oximetry 01/06/18 23:00 01/07/18 00:00 01/07/18 00:36 Temperature 97.9 F Pulse Rate 97 H 86 Respiratory Rate 16 16 Blood Pressure 112/58 L Pulse Oximetry 01/07/18 01:00 01/07/18 02:00 01/07/18 03:00 Temperature 97.9 F Pulse Rate 84 90 90 Respiratory Rate 16 Blood Pressure 112/58 L Pulse Oximetry 01/07/18 04:00 01/07/18 05:00 01/07/18 06:00 Temperature Pulse Rate 88 90 84 Respiratory Rate Blood Pressure Pulse Oximetry 01/07/18 06:44 01/07/18 09:42 Temperature Pulse Rate 84 Respiratory Rate 16 16 Blood Pressure Pulse Oximetry Intake & Output 01/06/18 01/07/18 01/07/18 18:59 06:59 18:59 Intake Total 1040 / 1040 1880 / 1880 Output Total 1500 / 1500 1120 / 1120 Balance -460 / -460 760 / 760 Weight 81 kg Intake: IV 200 / 200 1200 / 1200 LR 1000 mL Inj 1,000 ML @ 30 1000 / 1000 mls/hr IV.SIG .Q24H [facility] Rx#: [id number] Zosyn 4.5 GM Premix 4.5 gm In 200 / 200 200 / 200 100 ml @ 200 mls/hr IV.SIG Q6H [facility] Rx#:[id number] Oral 840 / 840 680 / 680 Output: Urine Amount (Catheter) 1450 / 1450 960 / 960 Indwelling Urethral Catheter 1450 / 1450 960 / 960 Chest Tube Drainage 50 / 50 160 / 160 #1 Right Upper 50 / 50 160 / 160 Other: Date of Last Bowel Movement 01/06/18 01/07/18 # Bowel Movements 1 2 Narrative: GENERAL: No acute distress. SKIN: Warm and dry. HEAD: Normocephalic. EYES: No scleral icterus. No injection or drainage. NECK: Supple, trachea midline. No JVD. CARDIOVASCULAR: Regular rate and rhythm without murmurs, gallops, or rubs. RESPIRATORY: Severe decreased breath sounds bilateral, right posterior surgical wound. chest tube in place continue suction, harsh respiratory sounds. GASTROINTESTINAL: Abdomen soft, non-tender, nondistended. MUSCULOSKELETAL: No cyanosis, or edema. BACK: Nontender without obvious deformity. No CVA tenderness. - Urinary Catheter Management Indwelling Urethral Catheter Cath placed during this visit: yes, but has since been removed by the nurse Reason for continuing: Acute urinary retention Insertion date: 01/05/18 Insertion time: 22:00 Removal date: 01/04/18 Removal time: 17:55 Straight Cath placed during this visit: yes, but has since been removed by the nurse Reason for continuing: Acute urinary retention Insertion date: 01/05/18 Insertion time: 17:00 Removal date: 01/05/18 Removal time: 17:08 Results - Labs CBC & Chem 7: 01/07/18 03:56 01/07/18 03:56 Laboratory Results - last 24 hr 01/06/18 01/07/18 01/07/18 11:00 03:56 03:56 WBC 23.4 H RBC 2.95 L Hgb 10.0 L Hct 29.9 L MCV 101.4 H MCH 33.9 MCHC 33.5 RDW 16.6 Plt Count 180 MPV 9.4 Sodium 134 L Potassium 4.2 Chloride 97 L Carbon Dioxide 29.6 Anion Gap 7 BUN 26 H Creatinine 0.68 Estimated GFR Greater than 89 Random Glucose 124 H Calcium 7.6 L Urine Color Yellow Urine Clarity Hazy H Urine pH 5.0 Ur Specific [place] 1.027 Urine Protein Negative Urine Glucose (UA) Negative Urine Ketones Negative Urine Occult Blood Moderate H Urine Nitrate Negative Urine Bilirubin Negative Urine Urobilinogen Less than 2 Ur Leukocyte Esterase Moderate H Urine RBC 12 H Urine WBC 18 H Hyaline Casts 3 Micro UA Comment Cath-culture ind Urine Culture Comments Cath-cult indicated - Imaging Impressions Chest X-Ray 01/06/18 10:19 CONCLUSION: Right chest tube without pneumothorax. Right central line as above. Minimal basilar atelectasis. - Procedures Date of procedure: 01/04/18 Anesthesia: GETA Surgeon: Zaida Serrano MD Operation and Findings: PREOPERATIVE DIAGNOSIS 1. Right Upper lobe Lung Mass 2. Right upper lobe endobronchial obstruction with complete collapse 3. COPD POSTOPERATIVE DIAGNOSIS same PROCEDURES 1. Right posterolateral Muscle Sparing Thoracotomy 2. Right Upper lobectomy 3. Mediastinal Lymph Node Dissection 4. Intercostal Nerve Block SURGEON Zaida Serrano MD Assessment and Plan - Plan 1. Right Lung endobronchial Mass Likely malignancy, status post Right posterolateral Muscle sparing thoracotomy, Right upper lobectomy, Mediastinal lymph node dissection, intercostal nerve block. 01/04/[address] Zaida Serrano. discussed with Cardiothoracic FELT PAD CUTTER due to worsening respiratory and Leukocytosis was asked for blood cultures UA, CXR, started on Zosyn. stable afebrile. 2. PAD/left Lower extremity revascularization, management as per Vascular surgery, cleared for discharge on Plavix 75 mg and Aspirin 81 mg daily, anticoagulation as per Cardiothoracic surgery 3. Chronic Respiratory failure/COPD/Right lower lung collapse, Bronchodilator, Mucolytic incentive spirometry Steroids. 4. Alcohol abuse History of alcohol withdrawal CIWA protocol, No signs of withdrawal. 5. Tobacco abuse Strongly recommended to stop smoking. 6. Hypertension controlled. 6. Hyperlipidemia by history 7. Hypocalcemia replacing and following. 8. Urinary retention Peres cath placed and Flomax started. DVT prophylaxis with Lovenox as per Cardiothoracic surgery. Code Status: Full code Discussed Condition With: patient and nurse. Discharge Planning: once cleared by [facility] and Cardiothoracic surgery.
--- NOTE | 2018-01-07 09:53 | P.PNCV ---
- Note Subjective/Hospital Course: 62/ male initially admitted a month ago for blood-tinged sputum, shortness of breath. CT chest at the time found a mass involving the right upper lobe bronchus with resultant collapse of the right upper lobe. He underwent bronchoscopy and was found to have a very large endobronchial mass obstructing the right upper lobe mainstem bronchus. He had post significant bleeding. Bronchial washings were attempted. The cytology was negative. He was then discharged home with recommendations to followup with Dr. Cameron Kovacs with Oncology, but was unable to see him in the clinic due insurance authorization. He presented again to the hospital with complaints of chest discomfort, swelling of his right lower extremity and was found to have an arterial obstruction and underwent a surgical revascularization by Dr. Locke on 12/26/2017. He had aortogram with right lower extremity angiogram, he had a right EIA orbital arthrectomy and angioplasty, right superficial artery [employer]. He placed a stent in the right superficial femoral artery. We were consulted due to this large mass. 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 The patient is homeless. Hyperlipidemia, hypertension, history of MRSA, tobacco abuse. 12/30 pt doing fair, still SOB with any exertion for surgery on Tue / Right Thoracotomy / right upper lobectomy 01/03 stable for surgery in am on room air 01/04 surgery 1. Right posterolateral Muscle Sparing Thoracotomy 2. Right Upper lobectomy 3. Mediastinal Lymph Node Dissection 01/05 pt needs aggressive pulm toileting pain controlled 01/06 worsening coarse breath sounds, wheezing leukocytosis despite weaning steroids repeat CXR in am check cultures, pt also had some urinary retention last night, required replacement of hartman cath start flomax start zosyn / dc CVC line 01/07 Clinically stable. Persistent wheezing and coarse breath sounds Persistent leukocytosis with cultures pending Needs aggressive pulmonary toiletry and ambulation Continue antibiotics Awaiting pathology Objective: Vital Signs - 24 hr 01/06/18 10:00 01/06/18 10:53 01/06/18 11:00 Temperature 98.9 F Pulse Rate 80 83 90 Respiratory Rate 16 14 Blood Pressure 119/66 Pulse Oximetry 96 01/06/18 12:00 01/06/18 13:00 01/06/18 14:00 Temperature Pulse Rate 86 92 H 92 H Respiratory Rate Blood Pressure Pulse Oximetry 01/06/18 15:00 01/06/18 16:00 01/06/18 17:00 Temperature 97.5 F L Pulse Rate 79 92 H 86 Respiratory Rate 14 Blood Pressure 117/66 Pulse Oximetry 96 01/06/18 18:00 01/06/18 19:00 01/06/18 20:00 Temperature 97.9 F Pulse Rate 97 H 84 82 Respiratory Rate 16 Blood Pressure 133/69 Pulse Oximetry 01/06/18 20:47 01/06/18 21:00 01/06/18 22:00 Temperature Pulse Rate 84 80 80 Respiratory Rate 18 Blood Pressure Pulse Oximetry 01/06/18 23:00 01/07/18 00:00 01/07/18 00:36 Temperature 97.9 F Pulse Rate 97 H 86 Respiratory Rate 16 16 Blood Pressure 112/58 L Pulse Oximetry 01/07/18 01:00 01/07/18 02:00 01/07/18 03:00 Temperature 97.9 F Pulse Rate 84 90 90 Respiratory Rate 16 Blood Pressure 112/58 L Pulse Oximetry 01/07/18 04:00 01/07/18 05:00 01/07/18 06:00 Temperature Pulse Rate 88 90 84 Respiratory Rate Blood Pressure Pulse Oximetry 01/07/18 06:44 01/07/18 09:42 Temperature Pulse Rate 84 Respiratory Rate 16 16 Blood Pressure Pulse Oximetry Labs: Laboratory Results - last 12 hr 01/07/18 01/07/18 03:56 03:56 WBC 23.4 H RBC 2.95 L Hgb 10.0 L Hct 29.9 L MCV 101.4 H MCH 33.9 MCHC 33.5 RDW 16.6 Plt Count 180 MPV 9.4 Sodium 134 L Potassium 4.2 Chloride 97 L Carbon Dioxide 29.6 Anion Gap 7 BUN 26 H Creatinine 0.68 Estimated GFR Greater than 89 Random Glucose 124 H Calcium 7.6 L Result Diagrams: 01/07/18 03:56 01/07/18 03:56 - Plan (1) Collapse of right lung Plan: right lung mass (2) COPD exacerbation Plan: wean steroids (3) Claudication in peripheral vascular disease Plan: on ASA, ok to start plavix after surgery and when chest tubes out (4) S/P thoracotomy Plan: pain control path pending OOB pulm toileting leukocytosis / despite weaning steroids OOB ambulate f/u CXR in am cultures pending
--- NOTE | 2018-01-07 10:58 | XR ---
EXAM DATE: 01/07/2018 10:37 AM EDT AGE/SEX: 62 years / Male INDICATIONS: . Shortness of breath and cough. CLINICAL DATA: This is the patient's subsequent encounter. Patient reports that signs and symptoms h ave been present for 4 - 6 days and indicates a pain score of 4/10. MEDICAL/SURGICAL HISTORY: Chronic obstructive pulmonary disease. Hypertension. Peripheral art katelyn disease. Lobectomy. [place] [facility] [place]. . FINDINGS: AP and lateral views of the chest. Right-sided chest tube remains in place. Right subclavian central venous catheter is no longer seen. There is no evidence of pneumothorax. There is increased right esa ed medial mid to upper lung opacity as well as shift of the mediastinum to the right indicating right upper lobe atelectasis/collapse. Left lung is clear. CONCLUSION: Right-sided chest tube remains in place. No evidence of pneumothorax. Increased right mid to upper [place] ng opacity and shift of the mediastinum to the right indicates right upper lobe atelectasis/collapse. Electronically signed by: Rufus Chopra MD 01/07/2018 10:57 AM EDT
[2018-01-07] MEDS: Enoxaparin Inj 30 MG/0.3 ML Syringe SQ SCH (14:45)
--- NOTE | 2018-01-07 15:53 | P.PN ---
Subjective Interval history: ALERT NAD CHEST TUBE IN PLACE Physical Exam Vital signs: Vital Signs 01/06/18 16:00 01/06/18 17:00 01/06/18 18:00 Temperature Pulse Rate 92 H 86 97 H Respiratory Rate Blood Pressure Pulse Oximetry 96 01/06/18 19:00 01/06/18 20:00 01/06/18 20:47 Temperature 97.9 F Pulse Rate 84 82 84 Respiratory Rate 16 18 Blood Pressure 133/69 Pulse Oximetry 01/06/18 21:00 01/06/18 22:00 01/06/18 23:00 Temperature 97.9 F Pulse Rate 80 80 97 H Respiratory Rate 16 Blood Pressure 112/58 L Pulse Oximetry 01/07/18 00:00 01/07/18 00:36 01/07/18 01:00 Temperature Pulse Rate 86 84 Respiratory Rate 16 Blood Pressure Pulse Oximetry 01/07/18 02:00 01/07/18 03:00 01/07/18 04:00 Temperature 97.9 F Pulse Rate 90 90 88 Respiratory Rate 16 Blood Pressure 112/58 L Pulse Oximetry 01/07/18 05:00 01/07/18 06:00 01/07/18 06:44 Temperature Pulse Rate 90 84 Respiratory Rate 16 Blood Pressure Pulse Oximetry 01/07/18 07:00 01/07/18 08:00 01/07/18 09:00 Temperature 97.8 F Pulse Rate 80 89 88 Respiratory Rate 18 Blood Pressure 134/64 Pulse Oximetry 99 01/07/18 09:42 01/07/18 10:00 01/07/18 11:00 Temperature 97.8 F Pulse Rate 84 87 87 Respiratory Rate 16 18 Blood Pressure 121/65 Pulse Oximetry 97 01/07/18 12:00 01/07/18 13:00 01/07/18 14:00 Temperature Pulse Rate 97 H 72 88 Respiratory Rate Blood Pressure Pulse Oximetry 01/07/18 15:00 Temperature 97.9 F Pulse Rate 81 Respiratory Rate 18 Blood Pressure 117/62 Pulse Oximetry 96 Intake & Output 01/06/18 01/07/18 01/07/18 18:59 06:59 18:59 Intake Total 1040 / 1040 1880 / 1880 100 / 100 Output Total 1500 / 1500 1120 / 1120 Balance -460 / -460 760 / 760 100 / 100 Weight 81 kg Intake: IV 200 / 200 1200 / 1200 100 / 100 LR 1000 mL Inj 1,000 ML @ 30 1000 / 1000 mls/hr IV.SIG .Q24H IAN Rx#: [id number] Zosyn 4.5 GM Premix 4.5 gm In 200 / 200 200 / 200 100 / 100 100 ml @ 200 mls/hr IV.SIG Q6H IAN Rx#:[id number] Oral 840 / 840 680 / 680 Output: Urine Amount (Catheter) 1450 / 1450 960 / 960 Indwelling Urethral Catheter 1450 / 1450 960 / 960 Chest Tube Drainage 50 / 50 160 / 160 #1 Right Upper 50 / 50 160 / 160 Other: Date of Last Bowel Movement 01/06/18 01/07/18 # Bowel Movements 1 2 Narrative: GENERAL: No acute distress. SKIN: Warm and dry. HEAD: Normocephalic. EYES: No scleral icterus. No injection or drainage. NECK: Supple, trachea midline. No JVD. CARDIOVASCULAR: Regular rate and rhythm without murmurs, gallops, or rubs. RESPIRATORY: Severe decreased breath sounds bilateral, right posterior surgical wound. chest tube in place continue suction, harsh respiratory sounds worsening. GASTROINTESTINAL: Abdomen soft, non-tender, nondistended. MUSCULOSKELETAL: No cyanosis, or edema. BACK: Nontender without obvious deformity. No CVA tenderness. - Urinary Catheter Management Indwelling Urethral Catheter Cath placed during this visit: yes, but has since been removed by the nurse Reason for continuing: Acute urinary retention Insertion date: 01/05/18 Insertion time: 22:00 Removal date: 01/04/18 Removal time: 17:55 Straight Cath placed during this visit: yes, but has since been removed by the nurse Reason for continuing: Acute urinary retention Insertion date: 01/05/18 Insertion time: 17:00 Removal date: 01/05/18 Removal time: 17:08 Results - Labs CBC & Chem 7: 01/07/18 03:56 01/07/18 03:56 Laboratory Results - last 24 hr 01/06/18 01/07/18 01/07/18 11:00 03:56 03:56 WBC 23.4 H RBC 2.95 L Hgb 10.0 L Hct 29.9 L MCV 101.4 H MCH 33.9 MCHC 33.5 RDW 16.6 Plt Count 180 MPV 9.4 Sodium 134 L Potassium 4.2 Chloride 97 L Carbon Dioxide 29.6 Anion Gap 7 BUN 26 H Creatinine 0.68 Estimated GFR Greater than 89 Random Glucose 124 H Calcium 7.6 L Urine Color Yellow Urine Clarity Hazy H Urine pH 5.0 Ur Specific [place] 1.027 Urine Protein Negative Urine Glucose (UA) Negative Urine Ketones Negative Urine Occult Blood Moderate H Urine Nitrate Negative Urine Bilirubin Negative Urine Urobilinogen Less than 2 Ur Leukocyte Esterase Moderate H Urine RBC 12 H Urine WBC 18 H Hyaline Casts 3 Micro UA Comment Cath-culture ind Urine Culture Comments Cath-cult indicated Microbiology 01/06/18 11:00 Sputum - Oral Tracheal Aspirate Gram Stain - Final 01/06/18 11:00 Sputum - Oral Tracheal Aspirate Sputum Culture - Preliminary Heavy growth normal respiratory elena at 24 hours 01/06/18 11:00 Clean Catch Urine Urine Culture - Preliminary No growth in 24 hours 01/06/18 11:45 Blood - Line Aerobic Blood Culture - Preliminary No growth in 1 day 01/06/18 11:45 Blood - Line Anaerobic Blood Culture - Preliminary No growth in 1 day 01/06/18 11:38 Blood - Line Aerobic Blood Culture - Preliminary No growth in 1 day 01/06/18 11:38 Blood - Line Anaerobic Blood Culture - Preliminary No growth in 1 day - Imaging Impressions Chest X-Ray 01/07/18 07:00 CONCLUSION: Right-sided chest tube remains in place. No evidence of pneumothorax. Increased right mid to upper lung opacity and shift of the mediastinum to the right indicates right upper lobe atelectasis/collapse. - Procedures Date of procedure: 01/04/18 Anesthesia: GETA Surgeon: Zaida Serrano MD Operation and Findings: PREOPERATIVE DIAGNOSIS 1. Right Upper lobe Lung Mass 2. Right upper lobe endobronchial obstruction with complete collapse 3. COPD POSTOPERATIVE DIAGNOSIS same PROCEDURES 1. Right posterolateral Muscle Sparing Thoracotomy 2. Right Upper lobectomy 3. Mediastinal Lymph Node Dissection 4. Intercostal Nerve Block SURGEON Zaida Serrano MD Assessment and Plan - Plan COPD S/P LOBECTOMY FOR CA PLAN O2 NEEDED PULM TOILET REMOVE CT WHEN POSSIBLE
[2018-01-08] MEDS: Piperacil/Tazo 4.5 GM Premix 4.5 GM/100 ML BAG IV.SIG SCH ×4 (00:08→16:47)
[2018-01-08] MEDS: Morphine Inj 30 MG/30 ML PCA.VIAL PCA PRN ×2 (06:05→14:46)
[2018-01-08] MEDS: guaiFENesin 600 MG ER Tablet PO SCH ×2 (08:15→21:43)
[2018-01-08] MEDS: Senna/Docusate Sodium 8.6/50 MG Tablet PO SCH ×2 (08:15→21:43)
[2018-01-08] MEDS: MethylPREDNISolone Sod Succinate Inj 40 MG/ML Vial IV.PUSH SCH ×2 (08:15→21:43)
[2018-01-08] MEDS: Budesonide-Formoterol 160/4.5 MCG 6 GM Inhaler INH SCH ×2 (08:16→21:44)
--- NOTE | 2018-01-08 09:19 | P.PNCV ---
- Note Subjective/Hospital Course: 62/ male initially admitted a month ago for blood-tinged sputum, shortness of breath. CT chest at the time found a mass involving the right upper lobe bronchus with resultant collapse of the right upper lobe. He underwent bronchoscopy and was found to have a very large endobronchial mass obstructing the right upper lobe mainstem bronchus. He had post significant bleeding. Bronchial washings were attempted. The cytology was negative. He was then discharged home with recommendations to followup with Dr. Cameron Kovacs with Oncology, but was unable to see him in the clinic due insurance authorization. He presented again to the hospital with complaints of chest discomfort, swelling of his right lower extremity and was found to have an arterial obstruction and underwent a surgical revascularization by Dr. Locke on 12/26/2017. He had aortogram with right lower extremity angiogram, he had a right EIA orbital arthrectomy and angioplasty, right superficial artery [employer]. He placed a stent in the right superficial femoral artery. We were consulted due to this large mass. 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 The patient is homeless. Hyperlipidemia, hypertension, history of MRSA, tobacco abuse. 12/30 pt doing fair, still SOB with any exertion for surgery on Tue / Right Thoracotomy / right upper lobectomy 01/03 stable for surgery in am on room air 01/04 surgery 1. Right posterolateral Muscle Sparing Thoracotomy 2. Right Upper lobectomy 3. Mediastinal Lymph Node Dissection 01/05 pt needs aggressive pulm toileting pain controlled 01/06 worsening coarse breath sounds, wheezing leukocytosis despite weaning steroids repeat CXR in am check cultures, pt also had some urinary retention last night, required replacement of hartman cath start flomax start zosyn / dc CVC line 01/07 Clinically stable. Persistent wheezing and coarse breath sounds Persistent leukocytosis with cultures pending Needs aggressive pulmonary toiletry and ambulation Continue antibiotics Awaiting pathology 01/08 Doing well Pathology noted with synchronous primaries and N2 disease Will need oncology evaluation Likely D/C CT tomorrow Objective: Vital Signs - 24 hr 01/07/18 09:42 01/07/18 10:00 01/07/18 11:00 Temperature 97.8 F Pulse Rate 84 87 87 Respiratory Rate 16 18 Blood Pressure 121/65 Pulse Oximetry 97 01/07/18 12:00 01/07/18 13:00 01/07/18 14:00 Temperature Pulse Rate 97 H 72 88 Respiratory Rate Blood Pressure Pulse Oximetry 01/07/18 15:00 01/07/18 16:00 01/07/18 17:00 Temperature 97.9 F Pulse Rate 81 80 92 H Respiratory Rate 18 Blood Pressure 117/62 Pulse Oximetry 96 01/07/18 18:00 01/07/18 19:00 01/07/18 20:00 Temperature 98.0 F Pulse Rate 93 H 90 86 Respiratory Rate 16 Blood Pressure 132/64 Pulse Oximetry 97 01/07/18 20:55 01/07/18 21:00 01/07/18 22:00 Temperature Pulse Rate 78 88 Respiratory Rate Blood Pressure Pulse Oximetry 98 01/07/18 23:00 01/08/18 00:00 01/08/18 01:00 Temperature 98.1 F Pulse Rate 84 82 82 Respiratory Rate 16 Blood Pressure 136/64 Pulse Oximetry 96 01/08/18 02:00 01/08/18 03:00 01/08/18 04:00 Temperature 98.1 F Pulse Rate 82 76 72 Respiratory Rate 16 Blood Pressure 137/75 Pulse Oximetry 96 01/08/18 05:00 01/08/18 06:00 01/08/18 07:00 Temperature Pulse Rate 72 71 63 Respiratory Rate Blood Pressure Pulse Oximetry Result Diagrams: 01/07/18 03:56 01/07/18 03:56 - Plan (1) Collapse of right lung Plan: right lung mass (2) COPD exacerbation Plan: wean steroids (3) Claudication in peripheral vascular disease Plan: on ASA, ok to start plavix after surgery and when chest tubes out (4) S/P thoracotomy Plan: pain control path pending OOB pulm toileting leukocytosis / despite weaning steroids OOB ambulate f/u CXR in am cultures pending
[2018-01-08] MEDS: Enoxaparin Inj 30 MG/0.3 ML Syringe SQ SCH (14:39)
--- NOTE | 2018-01-08 15:40 | P.PN ---
Subjective Interval history: alert swittig at bedside Physical Exam Vital signs: Vital Signs 01/07/18 16:00 01/07/18 17:00 01/07/18 18:00 Temperature Pulse Rate 80 92 H 93 H Respiratory Rate Blood Pressure Pulse Oximetry 01/07/18 19:00 01/07/18 20:00 01/07/18 20:55 Temperature 98.0 F Pulse Rate 90 86 Respiratory Rate 16 Blood Pressure 132/64 Pulse Oximetry 97 98 01/07/18 21:00 01/07/18 22:00 01/07/18 23:00 Temperature 98.1 F Pulse Rate 78 88 84 Respiratory Rate 16 Blood Pressure 136/64 Pulse Oximetry 96 01/08/18 00:00 01/08/18 01:00 01/08/18 02:00 Temperature Pulse Rate 82 82 82 Respiratory Rate Blood Pressure Pulse Oximetry 01/08/18 03:00 01/08/18 04:00 01/08/18 05:00 Temperature 98.1 F Pulse Rate 76 72 72 Respiratory Rate 16 Blood Pressure 137/75 Pulse Oximetry 96 01/08/18 06:00 01/08/18 07:00 01/08/18 08:00 Temperature 98.0 F Pulse Rate 71 69 75 Respiratory Rate 16 Blood Pressure 146/72 H Pulse Oximetry 100 01/08/18 09:00 01/08/18 09:32 01/08/18 10:00 Temperature Pulse Rate 76 75 86 Respiratory Rate 18 Blood Pressure Pulse Oximetry 98 01/08/18 11:00 01/08/18 12:00 01/08/18 13:00 Temperature 97.6 F Pulse Rate 78 76 89 Respiratory Rate 16 Blood Pressure 131/63 Pulse Oximetry 97 01/08/18 14:00 01/08/18 15:00 Temperature Pulse Rate 68 84 Respiratory Rate Blood Pressure Pulse Oximetry Intake & Output 01/07/18 01/08/18 01/08/18 18:59 06:59 18:59 Intake Total 1160 / 1160 880 / 880 1100 / 1100 Output Total 700 / 700 852 / 852 Balance 460 / 460 28 1100 / 1100 Weight 82.5 kg Intake: IV 200 / 200 200 / 200 1100 / 1100 Zosyn 4.5 GM Premix 4.5 gm In 200 / 200 200 / 200 100 / 100 100 ml @ 200 mls/hr IV.SIG Q6H IAN Rx#:[id number] Oral 960 / 960 680 / 680 Output: Stool 2 / 2 Urine Amount (Catheter) 600 / 600 850 / 850 Indwelling Urethral Catheter 600 / 600 850 / 850 Chest Tube Drainage 100 / 100 #1 Right Upper 100 / 100 Other: Date of Last Bowel Movement 01/08/18 Narrative: GENERAL: No acute distress. SKIN: Warm and dry. HEAD: Normocephalic. EYES: No scleral icterus. No injection or drainage. NECK: Supple, trachea midline. No JVD. CARDIOVASCULAR: Regular rate and rhythm without murmurs, gallops, or rubs. RESPIRATORY: Severe decreased breath sounds bilateral, right posterior surgical wound. chest tube in place continue suction, harsh respiratory sounds worsening. GASTROINTESTINAL: Abdomen soft, non-tender, nondistended. MUSCULOSKELETAL: No cyanosis, or edema. BACK: Nontender without obvious deformity. No CVA tenderness. - Urinary Catheter Management Indwelling Urethral Catheter Cath placed during this visit: yes, but has since been removed by the nurse Reason for continuing: Acute urinary retention Insertion date: 01/05/18 Insertion time: 22:00 Removal date: 01/04/18 Removal time: 17:55 Straight Cath placed during this visit: yes, but has since been removed by the nurse Reason for continuing: Acute urinary retention Insertion date: 01/05/18 Insertion time: 17:00 Removal date: 01/05/18 Removal time: 17:08 Results - Labs CBC & Chem 7: 01/07/18 03:56 01/07/18 03:56 Microbiology 01/06/18 11:45 Blood - Line Aerobic Blood Culture - Preliminary No growth in 2 days 01/06/18 11:45 Blood - Line Anaerobic Blood Culture - Preliminary No growth in 2 days 01/06/18 11:38 Blood - Line Aerobic Blood Culture - Preliminary No growth in 2 days 01/06/18 11:38 Blood - Line Anaerobic Blood Culture - Preliminary No growth in 2 days 01/06/18 11:00 Clean Catch Urine Urine Culture - Final No growth in 48 hours 01/06/18 11:00 Sputum - Oral Tracheal Aspirate Gram Stain - Final 01/06/18 11:00 Sputum - Oral Tracheal Aspirate Sputum Culture - Final Heavy growth normal respiratory elena - Procedures Date of procedure: 01/04/18 Anesthesia: GETA Surgeon: Zaida Serrano MD Operation and Findings: PREOPERATIVE DIAGNOSIS 1. Right Upper lobe Lung Mass 2. Right upper lobe endobronchial obstruction with complete collapse 3. COPD POSTOPERATIVE DIAGNOSIS same PROCEDURES 1. Right posterolateral Muscle Sparing Thoracotomy 2. Right Upper lobectomy 3. Mediastinal Lymph Node Dissection 4. Intercostal Nerve Block SURGEON Zaida Serrano MD Assessment and Plan - Plan COPD S/P LOBECTOMY FOR CA PLAN O2 NEEDED PULM TOILET REMOVE CT WHEN POSSIBLE
--- NOTE | 2018-01-08 17:42 | P.PN ---
Subjective Interval history: This is a pleasant 62 y/o male with status post Right lower extremity revascularization was cleared by Vascular surgery for discharge needs to go on Aspirin 81 mg daily and Plavix 75 mg daily, flow specialist following with Diagnosis of Endobronchial mass 01/05: With diagnosis Of right Upper lobe lung mass, Right upper lobe endobronchial obstruction with complete Collapse, COPD, status post Right posterolateral Muscle sparing thoracotomy, Right upper lobectomy, Mediastinal lymph node dissection, intercostal nerve block. 01/04/[address] Doctor Zaida Serrano, stable working with Physical Therapy no complaint. 01/06: Seen in his bedroom in the presence of nurse and discussed with Cardiothoracic LANDING GEAR MECHANIC patient was not able to void and needed to place again a Peres cath, was started on Flomax also due to Leukocytosis worsening and worsening respiratory sandoval asked for CXR , UA, Blood cultures, started on Zosyn and following. as per patient has Moderate respiratory distress and Anxiety. 01/07: Stable in his bedroom, discussed with nurse, no change continue improving condition 01/08: Seen in his bedroom, discussed with nurse Miss Rai, no new issues, afebrile, no nausea, vomit or diarrhea. Physical Exam Vital signs: Vital Signs 01/07/18 18:00 01/07/18 19:00 01/07/18 20:00 Temperature 98.0 F Pulse Rate 93 H 90 86 Respiratory Rate 16 Blood Pressure 132/64 Pulse Oximetry 97 01/07/18 20:55 01/07/18 21:00 01/07/18 22:00 Temperature Pulse Rate 78 88 Respiratory Rate Blood Pressure Pulse Oximetry 98 01/07/18 23:00 01/08/18 00:00 01/08/18 01:00 Temperature 98.1 F Pulse Rate 84 82 82 Respiratory Rate 16 Blood Pressure 136/64 Pulse Oximetry 96 01/08/18 02:00 01/08/18 03:00 01/08/18 04:00 Temperature 98.1 F Pulse Rate 82 76 72 Respiratory Rate 16 Blood Pressure 137/75 Pulse Oximetry 96 01/08/18 05:00 01/08/18 06:00 01/08/18 07:00 Temperature 98.0 F Pulse Rate 72 71 69 Respiratory Rate 16 Blood Pressure 146/72 H Pulse Oximetry 100 01/08/18 08:00 01/08/18 09:00 01/08/18 09:32 Temperature Pulse Rate 75 76 75 Respiratory Rate 18 Blood Pressure Pulse Oximetry 98 01/08/18 10:00 01/08/18 11:00 01/08/18 12:00 Temperature 97.6 F Pulse Rate 86 78 76 Respiratory Rate 16 Blood Pressure 131/63 Pulse Oximetry 97 01/08/18 13:00 01/08/18 14:00 01/08/18 15:00 Temperature 97.6 F Pulse Rate 89 68 76 Respiratory Rate 16 Blood Pressure 143/70 H Pulse Oximetry 97 01/08/18 16:00 01/08/18 17:00 01/08/18 17:18 Temperature Pulse Rate 80 87 Respiratory Rate Blood Pressure Pulse Oximetry 97 Intake & Output 01/07/18 01/08/18 01/08/18 18:59 06:59 18:59 Intake Total 1160 / 1160 880 / 880 2325 / 2325 Output Total 700 / 700 852 / 852 815 / 815 Balance 460 / 460 28 / 28 1510 / 1510 Weight 82.5 kg Intake: IV 200 / 200 200 / 200 1200 / 1200 Zosyn 4.5 GM Premix 4.5 gm In 200 / 200 200 / 200 200 / 200 100 ml @ 200 mls/hr IV.SIG Q6H IAN Rx#:[id number] Oral 960 / 960 680 / 680 1125 / 1125 Output: Stool 2 / 2 Urine Amount (Catheter) 600 / 600 850 / 850 675 / 675 Indwelling Urethral Catheter 600 / 600 850 / 850 675 / 675 Chest Tube Drainage 100 / 100 140 / 140 #1 Right Upper 100 / 100 140 / 140 Other: Date of Last Bowel Movement 01/08/18 Narrative: GENERAL: No acute distress. SKIN: Warm and dry. HEAD: Normocephalic. EYES: No scleral icterus. No injection or drainage. NECK: Supple, trachea midline. No JVD. CARDIOVASCULAR: Regular rate and rhythm without murmurs, gallops, or rubs. RESPIRATORY: Severe decreased breath sounds bilateral, right posterior surgical wound. chest tube in place continue suction, harsh respiratory sounds. GASTROINTESTINAL: Abdomen soft, non-tender, nondistended. MUSCULOSKELETAL: No cyanosis, or edema. BACK: Nontender without obvious deformity. No CVA tenderness. - Urinary Catheter Management Indwelling Urethral Catheter Cath placed during this visit: yes, but has since been removed by the nurse Reason for continuing: Acute urinary retention Insertion date: 01/05/18 Insertion time: 22:00 Removal date: 01/04/18 Removal time: 17:55 Straight Cath placed during this visit: yes, but has since been removed by the nurse Reason for continuing: Acute urinary retention Insertion date: 01/05/18 Insertion time: 17:00 Removal date: 01/05/18 Removal time: 17:08 Results - Labs CBC & Chem 7: 01/07/18 03:56 01/07/18 03:56 Microbiology 01/06/18 11:45 Blood - Line Aerobic Blood Culture - Preliminary No growth in 2 days 01/06/18 11:45 Blood - Line Anaerobic Blood Culture - Preliminary No growth in 2 days 01/06/18 11:38 Blood - Line Aerobic Blood Culture - Preliminary No growth in 2 days 01/06/18 11:38 Blood - Line Anaerobic Blood Culture - Preliminary No growth in 2 days 01/06/18 11:00 Clean Catch Urine Urine Culture - Final No growth in 48 hours 01/06/18 11:00 Sputum - Oral Tracheal Aspirate Gram Stain - Final 01/06/18 11:00 Sputum - Oral Tracheal Aspirate Sputum Culture - Final Heavy growth normal respiratory elena - Procedures Date of procedure: 01/04/18 Anesthesia: GETA Surgeon: Zaida Serrano MD Operation and Findings: PREOPERATIVE DIAGNOSIS 1. Right Upper lobe Lung Mass 2. Right upper lobe endobronchial obstruction with complete collapse 3. COPD POSTOPERATIVE DIAGNOSIS same PROCEDURES 1. Right posterolateral Muscle Sparing Thoracotomy 2. Right Upper lobectomy 3. Mediastinal Lymph Node Dissection 4. Intercostal Nerve Block SURGEON Zaida Serrano MD Assessment and Plan - Plan 1. Right Lung endobronchial Mass Likely malignancy, status post Right posterolateral Muscle sparing thoracotomy, Right upper lobectomy, Mediastinal lymph node dissection, intercostal nerve block. 01/04/[address] Zaida Serrano. discussed with Cardiothoracic [employer]CH[employer]IC due to worsening respiratory and Leukocytosis was asked for blood cultures UA, CXR, started on Zosyn. stable afebrile. Not yet cleared by Cardiothoracic surgery. 2. PAD/left Lower extremity revascularization, management as per Vascular surgery, cleared for discharge on Plavix 75 mg and Aspirin 81 mg daily, anticoagulation as per Cardiothoracic surgery 3. Chronic Respiratory failure/COPD/Right lower lung collapse, Bronchodilator, Mucolytic incentive spirometry Steroids. 4. Alcohol abuse History of alcohol withdrawal CIWA protocol, No signs of withdrawal. 5. Tobacco abuse Strongly recommended to stop smoking. 6. Hypertension controlled. 6. Hyperlipidemia by history 7. Hypocalcemia replacing and following. 8. Urinary retention Peres cath placed and Flomax started. DVT prophylaxis with Lovenox as per Cardiothoracic surgery. No changes to anterior assessment following laboratory in am tomorrow. Code Status: Full code. Discussed Condition With: patient and nurse Miss Rai Discharge Planning: once cleared by flow specialist and Cardiothoracic surgery.
[2018-01-09] MEDS: Piperacil/Tazo 4.5 GM Premix 4.5 GM/100 ML BAG IV.SIG SCH ×2 (00:18→05:05)
[2018-01-09] MEDS: Morphine Inj 30 MG/30 ML PCA.VIAL PCA PRN (00:35)
[2018-01-09 03:57] LABS: Hematocrit 26.2 % (39.0-51.0); Hemoglobin 8.8 gm/dL (13.0-17.0); Mean Corpuscular HGB Conc 33.5 % (32.0-36.0); Mean Corpuscular Volume 101.6 fL (80.0-100.0); Mean Platelet Volume 9.3 fL (7.0-11.0); Platelet Count 137 th/mm3 (150-450); Red Blood Count 2.58 mil/mm3 (4.50-5.90); Red Cell Distribution Width 16.3 % (11.6-17.2); White Blood Count 23.6 th/mm3 (4.0-11.0)
[2018-01-09 04:17] LABS: Anion Gap 5 meq/L (5-15); Blood Urea Nitrogen 25 mg/dL (7-18); Calcium 7.7 mg/dL (8.5-10.1); Carbon Dioxide 30.3 meq/L (21.0-32.0); Chloride 101 meq/L (98-107); Glomerular Filtration Rate Greater Than 89 mL/min (>89); Glucose,Random 150 mg/dL (74-106); Potassium 4.2 meq/L (3.5-5.1); Sodium 136 meq/L (136-145)
[2018-01-09] MEDS: guaiFENesin 600 MG ER Tablet PO SCH ×2 (08:28→21:39)
[2018-01-09] MEDS: Senna/Docusate Sodium 8.6/50 MG Tablet PO SCH ×2 (08:28→21:39)
[2018-01-09] MEDS: MethylPREDNISolone Sod Succinate Inj 40 MG/ML Vial IV.PUSH SCH (08:28)
--- NOTE | 2018-01-09 08:55 | P.PNONC ---
Subjective Interval history: Mr. Garcia is seen and examined, vital signs, labs, medications, operative note as well as pathology results are reviewed. Subjectively; the patient reports no acute complaints, he continues to have a chest strain on the right side in place. He is eating breakfast at this time and tells me he has no troubles with his appetite. His only complaint is that of pain at the site of surgical incisions and chest tube placement. Additionally he has a Peres catheter in place, he tells me he had difficulty urinating without it. Objective Vital Signs/Intake & Output: Vital Signs 01/08/18 09:00 01/08/18 09:32 01/08/18 10:00 Temperature Pulse Rate 76 75 86 Respiratory Rate 18 Blood Pressure Pulse Oximetry 98 01/08/18 11:00 01/08/18 12:00 01/08/18 13:00 Temperature 97.6 F Pulse Rate 78 76 89 Respiratory Rate 16 Blood Pressure 131/63 Pulse Oximetry 97 01/08/18 14:00 01/08/18 15:00 01/08/18 16:00 Temperature 97.6 F Pulse Rate 68 76 80 Respiratory Rate 16 Blood Pressure 143/70 H Pulse Oximetry 97 01/08/18 17:00 01/08/18 17:18 01/08/18 18:00 Temperature Pulse Rate 87 82 Respiratory Rate Blood Pressure Pulse Oximetry 97 01/08/18 19:00 01/08/18 20:00 01/08/18 21:00 Temperature 98.3 F Pulse Rate 79 80 79 Respiratory Rate 18 Blood Pressure 141/65 H Pulse Oximetry 97 01/08/18 21:43 01/08/18 22:00 01/08/18 23:00 Temperature 98.7 F Pulse Rate 82 82 77 Respiratory Rate 18 20 Blood Pressure 143/65 H Pulse Oximetry 97 01/09/18 00:00 01/09/18 01:00 01/09/18 02:00 Temperature Pulse Rate 74 71 83 Respiratory Rate Blood Pressure Pulse Oximetry 01/09/18 03:00 01/09/18 03:02 01/09/18 04:00 Temperature 98.6 F Pulse Rate 76 74 Respiratory Rate 20 20 Blood Pressure 142/67 H Pulse Oximetry 97 01/09/18 05:00 01/09/18 06:00 01/09/18 07:00 Temperature 98.2 F Pulse Rate 80 70 74 Respiratory Rate 16 Blood Pressure 176/79 H Pulse Oximetry 94 L 01/09/18 08:33 Temperature Pulse Rate Respiratory Rate Blood Pressure 152/72 H Pulse Oximetry Intake & Output 01/08/18 01/09/18 01/09/18 18:59 06:59 18:59 Intake Total 2325 / 2325 820 / 820 Output Total 815 / 815 750 / 750 Balance 1510 / 1510 70 / 70 Intake: IV 1200 / 1200 100 / 100 Zosyn 4.5 GM Premix 4.5 gm In 200 / 200 100 / 100 100 ml @ 200 mls/hr IV.SIG Q6H IAN Rx#:[id number] Oral 1125 / 1125 720 / 720 Output: Stool 0 / 0 Urine Amount (Catheter) 675 / 675 700 / 700 Indwelling Urethral Catheter 675 / 675 700 / 700 Chest Tube Drainage 140 / 140 50 / 50 #1 Right Upper 140 / 140 50 / 50 Other: Date of Last Bowel Movement 01/08/18 # Bowel Movements 0 # Incontinent Bowel Movements 0 Result Diagrams: 01/09/18 03:25 01/09/18 03:25 Laboratory Results: Laboratory Results - last 24 hr 01/09/18 01/09/18 03:25 03:25 WBC 23.6 H RBC 2.58 L Hgb 8.8 L Hct 26.2 L MCV 101.6 H MCH 34.0 MCHC 33.5 RDW 16.3 Plt Count 137 L MPV 9.3 Sodium 136 Potassium 4.2 Chloride 101 Carbon Dioxide 30.3 Anion Gap 5 BUN 25 H Creatinine 0.54 L Estimated GFR Greater than 89 Random Glucose 150 H Calcium 7.7 L Culture Results: Microbiology 01/06/18 11:45 Aerobic Blood Culture - Preliminary Blood - Line No growth in 2 days Anaerobic Blood Culture - Preliminary No growth in 2 days 01/06/18 11:38 Aerobic Blood Culture - Preliminary Blood - Line No growth in 2 days Anaerobic Blood Culture - Preliminary No growth in 2 days 01/06/18 11:00 Urine Culture - Final Clean Catch Urine No growth in 48 hours 01/06/18 11:00 Gram Stain - Final Sputum - Oral Tracheal Aspirate Sputum Culture - Final Heavy growth normal respiratory elena Medications: Active Medications Generic Name Dose Route Start Last Admin Trade Name Freq PRN Reason Stop Dose Admin Albuterol 1 ampul 12/26/17 16:41 01/08/18 21:42 Duoneb Neb (Prn) NEB 1 ampul Q6HR NEB PRN Administration SOB/WHEEZING Aspirin 81 mg 12/30/17 09:00 01/09/18 08:28 Ecotrin PO 81 mg DAILY IAN Administration Budesonide/Formoterol Fumarate 2 puff 12/26/17 21:00 01/08/18 21:44 Symbicort 160/4.5 Mcg Inh INH 2 puff BID IAN Administration Enoxaparin Sodium 30 mg 01/05/18 15:00 01/08/18 14:39 Lovenox Inj SQ 30 mg Q24H IAN Administration Guaifenesin 600 mg 12/31/17 21:00 01/09/18 08:28 Mucinex Er PO 600 mg BID IAN Administration Morphine Sulfate 30 mg in 30 mls @ 0 mls/hr 01/04/18 15:40 01/09/18 00:35 Morphine Inj GROOMING ASSISTANT 0 mls/hr UNSCH PRN Administration per GROOMING ASSISTANT parameters 0 MG/HR Piperacillin/Tazobactam/Dextrose 4.5 gm in 100 mls @ 200 mls/hr 01/06/18 11: 00 01/09/18 06:06 Zosyn 4.5 Gm Premix IV.SIG 0 mls/hr Q6H IAN Infusion Methylprednisolone Sodium Succinate 40 mg 01/06/18 21:00 01/09/18 08:28 Solumedrol Inj IV.PUSH 40 mg Q12HR IAN Administration Pantoprazole Sodium 40 mg 01/04/18 21:00 01/08/18 21:43 Protonix PO 40 mg HS IAN Administration Pravastatin Sodium 40 mg 12/27/17 09:00 01/09/18 08:28 Pravachol PO 40 mg DAILY IAN Administration Senna/Docusate Sodium 1 tab 01/04/18 21:00 01/09/18 08:28 Whit-Colace PO 1 tab BID IAN Administration Sodium Chloride 2 ml 01/04/18 21:00 01/08/18 21:44 Ns Flush IV.FLUSH 2 ml BID IAN Administration Sodium Chloride 2 ml 01/04/18 15:40 01/05/18 21:14 Ns Flush IV.FLUSH 2 ml UNSCH PRN Administration FLUSH AFTER USING IV ACCESS Tamsulosin HCl 0.4 mg 01/06/18 11:00 01/09/18 08:28 Flomax PO 0.4 mg DAILY IAN Administration Temazepam 15 mg 12/26/17 21:00 01/05/18 21:16 Restoril PO 15 mg HS PRN Administration INSOMNIA Objective Remarks: GENERAL: Middle-aged man, sitting up in bed, not acutely distressed. He is eating breakfast.. SKIN: Warm and dry. HEAD: Normocephalic. EYES: No scleral icterus. No injection or drainage. NECK: Supple, trachea midline. No JVD or lymphadenopathy. LYMPHATIC: No adenopathy. Chest: Well-healing thoracotomy incision noted along the posterior right thorax , chest tube in place along the lateral lower right chest wall. CARDIOVASCULAR: Regular rate and rhythm without murmurs. RESPIRATORY: Diminished breath sounds over the right base, prolonged expiratory phase. GASTROINTESTINAL: Abdomen soft, non-tender, nondistended. EXTREMITIES: No cyanosis, or edema. MUSCULOSKELETAL: Adequate muscle tone. NEUROLOGICAL: No obvious focal deficit. Awake, alert, and oriented x3. PSYCHIATRIC: Appropriate mood and affect; insight and judgment normal. Assessment/Plan - Plan Mr. Garcia is a 62-year-old man with an extensive past history of tobaccoism and heavy alcohol consumption, he is reportedly homeless prior to this hospitalization. He was found on imaging studies performed in November 2017 to have a right upper lobe lung mass with resultant collapse of the right upper lobe. He underwent bronchoscopy which revealed a mass involving the right upper lobe bronchus with complete obstruction, cytology from that initial biopsy was nondiagnostic. The patient's case was extensively discussed with pulmonology, interventional radiology and thoracic surgery. He was advised open biopsy with possible surgical resection, he underwent this procedure on . The right upper lobe was resected, multiple lymph nodes were also resected. Due to the proximity of the right upper lobe lung mass to the right mainstem bronchus and princess short of a right pneumonectomy negative margins could not be obtained. Based on pathologic findings he has a T1 N2 tumor, radiographic imaging indicates no evidence of metastatic disease. Due to the extensive donna involvement as well as positive margins from a medical oncology standpoint he will be a candidate for postoperative combined chemoradiotherapy. Typically, combined chemoradiotherapy is not initiated until an individual has fully recovered from surgical resection (typically we allow 3-4 weeks recovery time before chemoradiotherapy is initiated). Once treatment is initiated the patient will remain on weekly chemotherapy with daily (Tuesday-Tuesday) radiation. Treatment last for up to 7 weeks. The logistics of postoperative treatment will be very challenging given the patient's current social circumstances i.e. him being homeless. Due to his current insurance he is also unable to see [facility] the outpatient setting. I am not certain how we will go about reliably arranging outpatient follow-up. A possibility I discussed with the patient is that he may need to remain inpatient for the foreseeable future to receive inpatient combined chemoradiotherapy. Should reliable outpatient follow-up and transportation and living conditions be arranged it would be safe for him to be discharged from the hospital to pursue outpatient treatment. The oncology service to follow along with you.
[2018-01-09] MEDS: Budesonide-Formoterol 160/4.5 MCG 6 GM Inhaler INH SCH (09:09)
--- NOTE | 2018-01-09 10:10 | P.PNCV ---
- Note Subjective/Hospital Course: 62/ male initially admitted a month ago for blood-tinged sputum, shortness of breath. CT chest at the time found a mass involving the right upper lobe bronchus with resultant collapse of the right upper lobe. He underwent bronchoscopy and was found to have a very large endobronchial mass obstructing the right upper lobe mainstem bronchus. He had post significant bleeding. Bronchial washings were attempted. The cytology was negative. He was then discharged home with recommendations to followup with Dr. Cameron Kovacs with Oncology, but was unable to see him in the clinic due insurance authorization. He presented again to the hospital with complaints of chest discomfort, swelling of his right lower extremity and was found to have an arterial obstruction and underwent a surgical revascularization by Dr. Locke on 12/26/2017. He had aortogram with right lower extremity angiogram, he had a right EIA orbital arthrectomy and angioplasty, right superficial artery [employer]AT CARPENTER MECHANIC. He placed a stent in the right superficial femoral artery. We were consulted due to this large mass. 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 The patient is homeless. Hyperlipidemia, hypertension, history of MRSA, tobacco abuse. 12/30 pt doing fair, still SOB with any exertion for surgery on Tue / Right Thoracotomy / right upper lobectomy 01/03 stable for surgery in am on room air 01/04 surgery 1. Right posterolateral Muscle Sparing Thoracotomy 2. Right Upper lobectomy 3. Mediastinal Lymph Node Dissection 01/05 pt needs aggressive pulm toileting pain controlled 01/06 worsening coarse breath sounds, wheezing leukocytosis despite weaning steroids repeat CXR in am check cultures, pt also had some urinary retention last night, required replacement of hartman cath start flomax start zosyn / dc CVC line 01/07 Clinically stable. Persistent wheezing and coarse breath sounds Persistent leukocytosis with cultures pending Needs aggressive pulmonary toiletry and ambulation Continue antibiotics Awaiting pathology 01/08 Doing well Pathology noted with synchronous primaries and N2 disease Will need oncology evaluation Likely D/C CT tomorrow 01/09 chest tube dc without difficulty, check CXR at 1200 noon if stable can transfer out of [facility] dc hartman cath Objective: Vital Signs - 24 hr 01/08/18 11:00 01/08/18 12:00 01/08/18 13:00 Temperature 97.6 F Pulse Rate 78 76 89 Respiratory Rate 16 Blood Pressure 131/63 Pulse Oximetry 97 01/08/18 14:00 01/08/18 15:00 01/08/18 16:00 Temperature 97.6 F Pulse Rate 68 76 80 Respiratory Rate 16 Blood Pressure 143/70 H Pulse Oximetry 97 01/08/18 17:00 01/08/18 17:18 01/08/18 18:00 Temperature Pulse Rate 87 82 Respiratory Rate Blood Pressure Pulse Oximetry 97 01/08/18 19:00 01/08/18 20:00 01/08/18 21:00 Temperature 98.3 F Pulse Rate 79 80 79 Respiratory Rate 18 Blood Pressure 141/65 H Pulse Oximetry 97 01/08/18 21:43 01/08/18 22:00 01/08/18 23:00 Temperature 98.7 F Pulse Rate 82 82 77 Respiratory Rate 18 20 Blood Pressure 143/65 H Pulse Oximetry 97 01/09/18 00:00 01/09/18 01:00 01/09/18 02:00 Temperature Pulse Rate 74 71 83 Respiratory Rate Blood Pressure Pulse Oximetry 01/09/18 03:00 01/09/18 03:02 01/09/18 04:00 Temperature 98.6 F Pulse Rate 76 74 Respiratory Rate 20 20 Blood Pressure 142/67 H Pulse Oximetry 97 01/09/18 05:00 01/09/18 06:00 01/09/18 07:00 Temperature 98.2 F Pulse Rate 80 70 74 Respiratory Rate 16 Blood Pressure 176/79 H Pulse Oximetry 94 L 01/09/18 08:33 Temperature Pulse Rate Respiratory Rate Blood Pressure 152/72 H Pulse Oximetry GENERAL: A&O x 3 SKIN: Warm and dry. alert and oriented HEAD: Normocephalic. EYES: No scleral icterus. No injection or drainage. NECK: Supple, trachea midline. No JVD or lymphadenopathy. CARDIOVASCULAR: Regular rate and rhythm without murmurs, gallops, or rubs. RESPIRATORY: Breath sounds equal bilaterally. No accessory muscle use. diminished in bases GASTROINTESTINAL: Abdomen soft, non-tender, nondistended. MUSCULOSKELETAL: No cyanosis, or edema. BACK: Nontender without obvious deformity. No CVA tenderness. Labs: Laboratory Results - last 12 hr 08/20/18 08/20/18 03:25 03:25 WBC 23.6 H RBC 2.58 L Hgb 8.8 L Hct 26.2 L MCV 101.6 H MCH 34.0 MCHC 33.5 RDW 16.3 Plt Count 137 L MPV 9.3 Sodium 136 Potassium 4.2 Chloride 101 Carbon Dioxide 30.3 Anion Gap 5 BUN 25 H Creatinine 0.54 L Estimated GFR Greater than 89 Random Glucose 150 H Calcium 7.7 L Result Diagrams: 01/09/18 03:25 01/09/18 03:25 - Plan (1) Collapse of right lung Plan: right lung mass path Based on pathologic findings he has a T1 N2 tumor, radiographic imaging indicates no evidence of metastatic disease. Due to the extensive donna involvement as well as positive margins from a medical oncology standpoint he will be a candidate for postoperative combined chemoradiotherapy.3 chest tube removed f/u CXR (2) COPD exacerbation Plan: wean steroids / change to po taper dose (3) Claudication in peripheral vascular disease Plan: on ASA, ok to start plavix after surgery and when chest tubes out (4) S/P thoracotomy Plan: pain control path pending OOB pulm toileting leukocytosis / despite weaning steroids OOB ambulate f/u CXR in am cultures pending
--- NOTE | 2018-01-09 11:11 | P.PN ---
Subjective Interval history: This is a pleasant 62 y/o male with status post Right lower extremity revascularization was cleared by Vascular surgery for discharge needs to go on Aspirin 81 mg daily and Plavix 75 mg daily, wildfire prevention specialist following with Diagnosis of Endobronchial mass 01/05: With diagnosis Of right Upper lobe lung mass, Right upper lobe endobronchial obstruction with complete Collapse, COPD, status post Right posterolateral Muscle sparing thoracotomy, Right upper lobectomy, Mediastinal lymph node dissection, intercostal nerve block. 01/04/[address] Zaida Serrano, stable working with Physical Therapy no complaint. 01/06: Seen in his bedroom in the presence of nurse and discussed with Cardiothoracic CONTROL SYSTEMS SPECIALIST patient was not able to void and needed to place again a Peres cath, was started on Flomax also due to Leukocytosis worsening and worsening respiratory sandoval asked for CXR , UA, Blood cultures, started on Zosyn and following. as per patient has Moderate respiratory distress and Anxiety. 01/07: Stable in his bedroom, discussed with nurse, no change continue improving condition 01/08: Seen in his bedroom, discussed with nurse Miss Rai, no new issues, afebrile, 01/09: Patient in sitting position, discussed with nurse miss Nichole no new issues, as per Cardiothoracic surgery, has T1N2 tumor and no metastasis, extensive donna involvement, and positive margins, chest tube removed today, to continue and wean steroids, on Aspirin and okay to start plavix after chest tube removed, as per clarity specialists he will need Chemoradiation therapy. no complaint by patient. Physical Exam Vital signs: Vital Signs 01/08/18 12:00 01/08/18 13:00 01/08/18 14:00 Temperature Pulse Rate 76 89 68 Respiratory Rate Blood Pressure Pulse Oximetry 01/08/18 15:00 01/08/18 16:00 01/08/18 17:00 Temperature 97.6 F Pulse Rate 76 80 87 Respiratory Rate 16 Blood Pressure 143/70 H Pulse Oximetry 97 01/08/18 17:18 01/08/18 18:00 01/08/18 19:00 Temperature 98.3 F Pulse Rate 82 79 Respiratory Rate 18 Blood Pressure 141/65 H Pulse Oximetry 97 97 01/08/18 20:00 01/08/18 21:00 01/08/18 21:43 Temperature Pulse Rate 80 79 82 Respiratory Rate 18 Blood Pressure Pulse Oximetry 01/08/18 22:00 01/08/18 23:00 01/09/18 00:00 Temperature 98.7 F Pulse Rate 82 77 74 Respiratory Rate 20 Blood Pressure 143/65 H Pulse Oximetry 97 01/09/18 01:00 01/09/18 02:00 01/09/18 03:00 Temperature 98.6 F Pulse Rate 71 83 76 Respiratory Rate 20 Blood Pressure 142/67 H Pulse Oximetry 97 01/09/18 03:02 01/09/18 04:00 01/09/18 05:00 Temperature Pulse Rate 74 80 Respiratory Rate 20 Blood Pressure Pulse Oximetry 01/09/18 06:00 01/09/18 07:00 01/09/18 08:00 Temperature 98.2 F Pulse Rate 70 74 70 Respiratory Rate 16 Blood Pressure 176/79 H Pulse Oximetry 94 L 01/09/18 08:33 01/09/18 09:00 01/09/18 10:00 Temperature Pulse Rate 73 72 Respiratory Rate Blood Pressure 152/72 H Pulse Oximetry Intake & Output 01/08/18 01/09/18 01/09/18 18:59 06:59 18:59 Intake Total 2325 / 2325 820 / 820 Output Total 815 / 815 750 / 750 Balance 1510 / 1510 70 / 70 Intake: IV 1200 / 1200 100 / 100 Zosyn 4.5 GM Premix 4.5 gm In 200 / 200 100 / 100 100 ml @ 200 mls/hr IV.SIG Q6H IAN Rx#:[id number] Oral 1125 / 1125 720 / 720 Output: Stool 0 / 0 Urine Amount (Catheter) 675 / 675 700 / 700 Indwelling Urethral Catheter 675 / 675 700 / 700 Chest Tube Drainage 140 / 140 50 / 50 #1 Right Upper 140 / 140 50 / 50 Other: Date of Last Bowel Movement 01/08/18 # Bowel Movements 0 # Incontinent Bowel Movements 0 Narrative: GENERAL: No acute distress. SKIN: Warm and dry. HEAD: Normocephalic. EYES: No scleral icterus. No injection or drainage. NECK: Supple, trachea midline. No JVD. CARDIOVASCULAR: Regular rate and rhythm without murmurs, gallops, or rubs. RESPIRATORY: Severe decreased breath sounds bilateral, right posterior surgical wound. chest tube in place continue suction, harsh respiratory sounds. GASTROINTESTINAL: Abdomen soft, non-tender, nondistended. MUSCULOSKELETAL: No cyanosis, or edema. BACK: Nontender without obvious deformity. No CVA tenderness. - Urinary Catheter Management Indwelling Urethral Catheter Cath placed during this visit: yes, but has since been removed by the nurse Reason for continuing: Acute urinary retention Insertion date: 01/05/18 Insertion time: 22:00 Removal date: 01/04/18 Removal time: 17:55 Straight Cath placed during this visit: yes, but has since been removed by the nurse Reason for continuing: Acute urinary retention Insertion date: 01/05/18 Insertion time: 17:00 Removal date: 01/05/18 Removal time: 17:08 Results - Labs CBC & Chem 7: 01/09/18 03:25 01/09/18 03:25 Laboratory Results - last 24 hr 01/09/18 01/09/18 03:25 03:25 WBC 23.6 H RBC 2.58 L Hgb 8.8 L Hct 26.2 L MCV 101.6 H MCH 34.0 MCHC 33.5 RDW 16.3 Plt Count 137 L MPV 9.3 Sodium 136 Potassium 4.2 Chloride 101 Carbon Dioxide 30.3 Anion Gap 5 BUN 25 H Creatinine 0.54 L Estimated GFR Greater than 89 Random Glucose 150 H Calcium 7.7 L Microbiology 01/06/18 11:45 Blood - Line Aerobic Blood Culture - Preliminary No growth in 3 days 01/06/18 11:45 Blood - Line Anaerobic Blood Culture - Preliminary No growth in 3 days 01/06/18 11:38 Blood - Line Aerobic Blood Culture - Preliminary No growth in 3 days 01/06/18 11:38 Blood - Line Anaerobic Blood Culture - Preliminary No growth in 3 days 01/06/18 11:00 Clean Catch Urine Urine Culture - Final No growth in 48 hours 01/06/18 11:00 Sputum - Oral Tracheal Aspirate Gram Stain - Final 01/06/18 11:00 Sputum - Oral Tracheal Aspirate Sputum Culture - Final Heavy growth normal respiratory elena - Procedures Date of procedure: 01/04/18 Anesthesia: GETA Surgeon: Zaida Serrano MD Operation and Findings: PREOPERATIVE DIAGNOSIS 1. Right Upper lobe Lung Mass 2. Right upper lobe endobronchial obstruction with complete collapse 3. COPD POSTOPERATIVE DIAGNOSIS same PROCEDURES 1. Right posterolateral Muscle Sparing Thoracotomy 2. Right Upper lobectomy 3. Mediastinal Lymph Node Dissection 4. Intercostal Nerve Block SURGEON Zaida Serrano MD Assessment and Plan - Plan 1. Right Lung endobronchial Mass Likely malignancy, status post Right posterolateral Muscle sparing thoracotomy, Right upper lobectomy, Mediastinal lymph node dissection, intercostal nerve block. 01/04/[address] Zaida Serrano. As per Cardiothoracic surgery, has T1N2 tumor and no metastasis, extensive donna involvement, and positive margins, chest tube removed today, to continue and wean steroids, on Aspirin and okay to start plavix after chest tube removed, as per clarity specialists he will need Chemoradiation therapy. 2. PAD/left Lower extremity revascularization, management as per Vascular surgery, cleared for discharge on Plavix 75 mg and Aspirin 81 mg daily, anticoagulation as per Cardiothoracic surgery 3. Chronic Respiratory failure/COPD/Right lower lung collapse, Bronchodilator, Mucolytic incentive spirometry Steroids. 4. Alcohol abuse History of alcohol withdrawal CIWA protocol, No signs of withdrawal. 5. Tobacco abuse Strongly recommended to stop smoking. 6. Hypertension controlled. 6. Hyperlipidemia by history 7. Hypocalcemia replacing and following. 8. Urinary retention Peres cath placed and Flomax started. 9. UTI on Zosyn DVT prophylaxis with Lovenox as per Cardiothoracic surgery. Code Status: Full code. Discussed Condition With: Patient and Nurse. Discharge Planning: once cleared by wildfire prevention specialist and Cardiothoracic surgery.
--- NOTE | 2018-01-09 12:31 | XR ---
EXAM DATE: 01/09/2018 12:05 PM EDT AGE/SEX: 62 years / Male INDICATIONS: Evaluate lungs post recent right chest tube removal. CLINICAL DATA: This is the patient's subsequent encounter. Patient reports that signs and symptoms h ave been present for 1 week and indicates a pain score of 4/10. MEDICAL/SURGICAL HISTORY: . Chronic obstructive pulmonary disease. Hypertension. Peripheral art katelyn disease. . Lobectomy. COMPARISON: [facility] [place] 1V SINGLE AP, 01/06/2018. . FINDINGS: There has been removal of the right-sided chest tube. There has been development of a mild right pneu mothorax measuring 1.4 cm over the right apex. Shift of heart and mediastinal structures is not seen. The heart size is normal. There is mild increased density identified a suspicious on the left likely related to atelectasis. There is subcutaneous emphysema seen in the right chest and neck region. CONCLUSION: Removal of the right-sided chest tube with development of a mild right pneumothorax. This information was relayed to Leeann, the patient's nurse by telephone at 12:28 PM. Electronically signed by: Skinny Sims MD 01/09/2018 12:30 PM EDT
[2018-01-09] MEDS: Enoxaparin Inj 30 MG/0.3 ML Syringe SQ SCH (15:14)
--- NOTE | 2018-01-09 17:50 | P.PNPL ---
Subjective Interval history: 62 YOWM with COPD,RUL endobronchial mass, PAD No Fever No CP Had Rt upper lobectomy Mild pain Up in amanda Chest tube removed CXR small ptx Bx sq cell ca with adenoca Physical Exam Vital signs: Vital Signs 01/08/18 18:00 01/08/18 19:00 01/08/18 20:00 Temperature 98.3 F Pulse Rate 82 79 80 Respiratory Rate 18 Blood Pressure 141/65 H Pulse Oximetry 97 01/08/18 21:00 01/08/18 21:43 01/08/18 22:00 Temperature Pulse Rate 79 82 82 Respiratory Rate 18 Blood Pressure Pulse Oximetry 01/08/18 23:00 01/09/18 00:00 01/09/18 01:00 Temperature 98.7 F Pulse Rate 77 74 71 Respiratory Rate 20 Blood Pressure 143/65 H Pulse Oximetry 97 01/09/18 02:00 01/09/18 03:00 01/09/18 03:02 Temperature 98.6 F Pulse Rate 83 76 Respiratory Rate 20 20 Blood Pressure 142/67 H Pulse Oximetry 97 01/09/18 04:00 01/09/18 05:00 01/09/18 06:00 Temperature Pulse Rate 74 80 70 Respiratory Rate Blood Pressure Pulse Oximetry 01/09/18 07:00 01/09/18 08:00 01/09/18 08:33 Temperature 98.2 F Pulse Rate 74 70 Respiratory Rate 16 Blood Pressure 176/79 H 152/72 H Pulse Oximetry 94 L 01/09/18 09:00 01/09/18 10:00 01/09/18 11:00 Temperature 97.9 F Pulse Rate 73 72 83 Respiratory Rate 17 Blood Pressure 140/88 Pulse Oximetry 97 01/09/18 12:00 01/09/18 12:20 01/09/18 12:26 Temperature Pulse Rate 90 Respiratory Rate 18 Blood Pressure Pulse Oximetry 98 01/09/18 13:00 01/09/18 14:00 01/09/18 15:00 Temperature 98.6 F Pulse Rate 92 H 73 73 Respiratory Rate 17 Blood Pressure 134/63 Pulse Oximetry 97 01/09/18 16:00 01/09/18 17:00 Temperature Pulse Rate 83 80 Respiratory Rate Blood Pressure Pulse Oximetry Intake & Output 01/08/18 01/09/18 01/09/18 18:59 06:59 18:59 Intake Total 2325 / 2325 820 / 820 600 / 600 Output Total 815 / 815 750 / 750 Balance 1510 / 1510 70 / 70 600 / 600 Intake: IV 1200 / 1200 100 / 100 Zosyn 4.5 GM Premix 4.5 gm In 200 / 200 100 / 100 100 ml @ 200 mls/hr IV.SIG Q6H IAN Rx#:[id number] Oral 1125 / 1125 720 / 720 600 / 600 Output: Stool 0 / 0 Urine Amount (Catheter) 675 / 675 700 / 700 Indwelling Urethral Catheter 675 / 675 700 / 700 Chest Tube Drainage 140 / 140 50 / 50 #1 Right Upper 140 / 140 50 / 50 Other: # Voids 11 Date of Last Bowel Movement 01/08/18 01/09/18 # Bowel Movements 0 1 # Incontinent Bowel Movements 0 GENERAL: WBWN, NAD SKIN: Warm and dry. HEAD: Normocephalic. EYES: No scleral icterus. No injection or drainage. NECK: Supple, trachea midline. No JVD or lymphadenopathy. CARDIOVASCULAR: Regular rate and rhythm without murmurs, gallops, or rubs. RESPIRATORY: Breath sounds equal bilaterally. No accessory muscle use. GASTROINTESTINAL: Abdomen soft, non-tender, nondistended. MUSCULOSKELETAL: No cyanosis, or edema. BACK: Nontender without obvious deformity. No CVA tenderness. - Urinary Catheter Management Indwelling Urethral Catheter Cath placed during this visit: yes, but has since been removed by the nurse Reason for continuing: Decision to DC catheter Insertion date: 01/05/18 Insertion time: 22:00 Removal date: 01/09/18 Removal time: 11:00 Straight Cath placed during this visit: yes, but has since been removed by the nurse Reason for continuing: Acute urinary retention Insertion date: 01/05/18 Insertion time: 17:00 Removal date: 01/05/18 Removal time: 17:08 Assessment and Plan - Plan IMPRESSION: 1. Right lung endobronchial mass, likely malignancy.s/p RULobectomy SQ, cell ca lung and Adenocarcinoma 2. Chronic obstructive pulmonary disease. 3. Peripheral artery disease, status post operative procedure done. 4. Nicotine abuse. 5. History of alcohol abuse. 6. The patient is homeless. PLAN: Aerosol nebs Prednisone 40 mg daily. Supplement 02 Seen by Oncology plans to start Chemo
[2018-01-10] MEDS: Budesonide-Formoterol 160/4.5 MCG 6 GM Inhaler INH SCH ×3 (01:51→20:20)
[2018-01-10] MEDS: Temazepam 15 MG Capsule PO PRN (02:43)
--- NOTE | 2018-01-10 05:45 | XR ---
EXAM DATE: 01/10/2018 5:11 AM EDT AGE/SEX: 62 years / Male INDICATIONS: Short of breath. CLINICAL DATA: This is the patient's subsequent encounter. Patient reports that signs and symptoms h ave been present for 1 week and indicates a pain score of 0/10. MEDICAL/SURGICAL HISTORY: Chronic obstructive pulmonary disease. Hypertension. Peripheral art katelyn disease. Lobectomy. COMPARISON: [facility] – [place] 1V SINGLE AP, 01/09/2018. . FINDINGS: A single AP view of the chest demonstrates no significant change. Small right pneumothorax again iden tified. This is along the apex and lateral margin of the hemithorax. Overlying subcutaneous air noted . No pneumothorax on the left. Heart is mildly enlarged but stable. No effusions. CONCLUSION: Unchanged small right pneumothorax. Electronically signed by: Minor Vizcarra MD 01/10/2018 5:44 AM EDT
--- NOTE | 2018-01-10 08:12 | P.PN ---
Subjective Interval history: This is a pleasant 62 y/o male with status post Right lower extremity revascularization was cleared by Vascular surgery for discharge needs to go on Aspirin 81 mg daily and Plavix 75 mg daily, water rights specialist following with Diagnosis of Endobronchial mass 01/05: With diagnosis Of right Upper lobe lung mass, Right upper lobe endobronchial obstruction with complete Collapse, COPD, status post Right posterolateral Muscle sparing thoracotomy, Right upper lobectomy, Mediastinal lymph node dissection, intercostal nerve block. 01/04/[address] Zaida Serrano, stable working with Physical Therapy no complaint. 01/06: Seen in his bedroom in the presence of nurse and discussed with Cardiothoracic OBSERVER ELECTRICAL PROSPECTING patient was not able to void and needed to place again a Peres cath, was started on Flomax also due to Leukocytosis worsening and worsening respiratory sandoval asked for CXR , UA, Blood cultures, started on Zosyn and following. as per patient has Moderate respiratory distress and Anxiety. 01/07: Stable in his bedroom, discussed with nurse, no change continue improving condition 01/08: Seen in his bedroom, discussed with nurse Miss Rai, no new issues, afebrile, 01/09: Patient in sitting position, discussed with nurse miss Nichole no new issues, as per Cardiothoracic surgery, has T1N2 tumor and no metastasis, extensive donna involvement, and positive margins, chest tube removed today, to continue and wean steroids, on Aspirin and okay to start plavix after chest tube removed, as per college specialist he will need Chemoradiation therapy. no complaint by patient. 01/10: Stable in his bedroom, discussed with him and nurse Miss Duncan in the room, continue with Leukocytosis, no signs of infection, Cardiothoracic surgery following, off antibiotics at this time, no nausea, vomit or diarrhea, transfer to Hematology and Oncology floor. Physical Exam Vital signs: Vital Signs 01/09/18 08:33 01/09/18 09:00 01/09/18 10:00 Temperature Pulse Rate 73 72 Respiratory Rate Blood Pressure 152/72 H Pulse Oximetry 01/09/18 11:00 01/09/18 12:00 01/09/18 12:20 Temperature 97.9 F Pulse Rate 83 90 Respiratory Rate 17 Blood Pressure 140/88 Pulse Oximetry 97 98 01/09/18 12:26 01/09/18 13:00 01/09/18 14:00 Temperature Pulse Rate 92 H 73 Respiratory Rate 18 Blood Pressure Pulse Oximetry 01/09/18 15:00 01/09/18 16:00 01/09/18 17:00 Temperature 98.6 F Pulse Rate 73 83 80 Respiratory Rate 17 Blood Pressure 134/63 Pulse Oximetry 97 01/09/18 18:00 01/09/18 19:00 01/09/18 20:00 Temperature 97.6 F Pulse Rate 75 75 74 Respiratory Rate 16 Blood Pressure 146/70 H Pulse Oximetry 98 01/09/18 21:00 01/09/18 21:19 01/09/18 21:42 Temperature Pulse Rate 72 Respiratory Rate 16 Blood Pressure Pulse Oximetry 97 01/09/18 22:00 01/09/18 23:00 01/10/18 00:00 Temperature 98.1 F Pulse Rate 78 70 66 Respiratory Rate 18 Blood Pressure 154/72 H Pulse Oximetry 98 01/10/18 00:27 01/10/18 01:00 01/10/18 02:00 Temperature Pulse Rate 64 65 Respiratory Rate 18 Blood Pressure Pulse Oximetry 01/10/18 02:39 01/10/18 03:00 01/10/18 04:00 Temperature 98.1 F Pulse Rate 62 63 Respiratory Rate 16 18 Blood Pressure 129/66 Pulse Oximetry 98 01/10/18 05:00 01/10/18 06:00 01/10/18 07:00 Temperature 98 F Pulse Rate 61 62 66 Respiratory Rate 14 Blood Pressure 119/60 Pulse Oximetry 01/10/18 08:05 Temperature Pulse Rate Respiratory Rate Blood Pressure Pulse Oximetry 98 Intake & Output 01/09/18 01/10/18 01/10/18 18:59 06:59 18:59 Intake Total 600 / 600 Output Total 675 / 675 Balance 600 / 600 -675 / -675 Weight 84.5 kg Intake: Oral 600 / 600 Output: Urine 675 / 675 Other: # Voids 11 2 Date of Last Bowel Movement 01/09/18 01/09/18 # Bowel Movements 1 Narrative: GENERAL: No acute distress. SKIN: Warm and dry. HEAD: Normocephalic. EYES: No scleral icterus. No injection or drainage. NECK: Supple, trachea midline. No JVD. CARDIOVASCULAR: Regular rate and rhythm without murmurs, gallops, or rubs. RESPIRATORY: Severe decreased breath sounds bilateral, right posterior surgical wound. chest tube in place continue suction, harsh respiratory sounds. GASTROINTESTINAL: Abdomen soft, non-tender, nondistended. MUSCULOSKELETAL: No cyanosis, or edema. BACK: Nontender without obvious deformity. No CVA tenderness. - Urinary Catheter Management Indwelling Urethral Catheter Cath placed during this visit: yes, but has since been removed by the nurse Reason for continuing: Decision to DC catheter Insertion date: 01/05/18 Insertion time: 22:00 Removal date: 01/09/18 Removal time: 11:00 Straight Cath placed during this visit: yes, but has since been removed by the nurse Reason for continuing: Acute urinary retention Insertion date: 01/05/18 Insertion time: 17:00 Removal date: 01/05/18 Removal time: 17:08 Results - Labs CBC & Chem 7: 01/09/18 03:25 01/09/18 03:25 Microbiology 01/06/18 11:45 Blood - Line Aerobic Blood Culture - Preliminary No growth in 3 days 01/06/18 11:45 Blood - Line Anaerobic Blood Culture - Preliminary No growth in 3 days 01/06/18 11:38 Blood - Line Aerobic Blood Culture - Preliminary No growth in 3 days 01/06/18 11:38 Blood - Line Anaerobic Blood Culture - Preliminary No growth in 3 days - Imaging Impressions Chest X-Ray 01/09/18 12:00 CONCLUSION: Removal of the right-sided chest tube with development of a mild right pneumothorax. This information was relayed to Leeann, the patient's nurse by telephone at 12: 28 PM. Chest X-Ray 01/10/18 06:00 CONCLUSION: Unchanged small right pneumothorax. - Procedures Date of procedure: 01/04/18 Anesthesia: GETA Surgeon: Zaida Serrano MD Operation and Findings: PREOPERATIVE DIAGNOSIS 1. Right Upper lobe Lung Mass 2. Right upper lobe endobronchial obstruction with complete collapse 3. COPD POSTOPERATIVE DIAGNOSIS same PROCEDURES 1. Right posterolateral Muscle Sparing Thoracotomy 2. Right Upper lobectomy 3. Mediastinal Lymph Node Dissection 4. Intercostal Nerve Block SURGEON Zaida Serrano MD Assessment and Plan - Plan 1. Right Lung endobronchial Mass Likely malignancy, status post Right posterolateral Muscle sparing thoracotomy, Right upper lobectomy, Mediastinal lymph node dissection, intercostal nerve block. 01/04/[address] Zaida Serrano. As per Cardiothoracic surgery, has T1N2 tumor and no metastasis, extensive donna involvement, and positive margins, chest tube removed today, to continue and wean steroids, on Aspirin and okay to start Plavix after chest tube removed, as per college specialist he will need Chemoradiation therapy. transferred to hematology and Oncology floor. 2. PAD/left Lower extremity revascularization, management as per Vascular surgery, cleared for discharge on Plavix 75 mg and Aspirin 81 mg daily, anticoagulation as per Cardiothoracic surgery. 3. Chronic Respiratory failure/COPD/Right lower lung collapse, Bronchodilator, Mucolytic incentive spirometry Steroids. 4. Alcohol abuse History of alcohol withdrawal CIWA protocol, No signs of withdrawal. 5. Tobacco abuse Strongly recommended to stop smoking. 6. Hypertension controlled. 6. Hyperlipidemia by history 7. Hypocalcemia replacing and following. 8. Urinary retention Peres cath placed and Flomax started. 9. UTI was on Zosyn removed antibiotics will get new UA 10. Leukocytosis increased and asked for UA, but he is afebrile, no signs of infection. continue with harsh sounds on both lungs DVT prophylaxis with Lovenox as per Cardiothoracic surgery. Code Status: Full Code. Discussed Condition With: Patient and nurse Miss Duncan Discharge Planning: once cleared by water rights specialist and Cardiothoracic surgery.
--- NOTE | 2018-01-10 09:06 | P.PNCV ---
- Note Subjective/Hospital Course: 62/ male initially admitted a month ago for blood-tinged sputum, shortness of breath. CT chest at the time found a mass involving the right upper lobe bronchus with resultant collapse of the right upper lobe. He underwent bronchoscopy and was found to have a very large endobronchial mass obstructing the right upper lobe mainstem bronchus. He had post significant bleeding. Bronchial washings were attempted. The cytology was negative. He was then discharged home with recommendations to followup with Dr. Cameron Kovacs with Oncology, but was unable to see him in the clinic due insurance authorization. He presented again to the hospital with complaints of chest discomfort, swelling of his right lower extremity and was found to have an arterial obstruction and underwent a surgical revascularization by Dr. Locke on 12/26/2017. He had aortogram with right lower extremity angiogram, he had a right EIA orbital arthrectomy and angioplasty, right superficial artery SKIN SPECIALIST. He placed a stent in the right superficial femoral artery. We were consulted due to this large mass. 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 The patient is homeless. Hyperlipidemia, hypertension, history of MRSA, tobacco abuse. 12/30 pt doing fair, still SOB with any exertion for surgery on Tue / Right Thoracotomy / right upper lobectomy 01/03 stable for surgery in am on room air 01/04 surgery 1. Right posterolateral Muscle Sparing Thoracotomy 2. Right Upper lobectomy 3. Mediastinal Lymph Node Dissection 01/05 pt needs aggressive pulm toileting pain controlled 01/06 worsening coarse breath sounds, wheezing leukocytosis despite weaning steroids repeat CXR in am check cultures, pt also had some urinary retention last night, required replacement of hartman cath start flomax start zosyn / dc CVC line 01/07 Clinically stable. Persistent wheezing and coarse breath sounds Persistent leukocytosis with cultures pending Needs aggressive pulmonary toiletry and ambulation Continue antibiotics Awaiting pathology 01/08 Doing well Pathology noted with synchronous primaries and N2 disease Will need oncology evaluation Likely D/C CT tomorrow 01/09 chest tube dc without difficulty, check CXR at 1200 noon if stable can transfer out of [facility]PC[facility] dc hartman cath 01/10 pt urinating without difficulty CXR noted stable right apical PTX f/u CXR on ok to transfer to oncology floor ok for nursing to change dressing and shower in am Objective: Vital Signs - 24 hr 01/09/18 10:00 01/09/18 11:00 01/09/18 12:00 Temperature 97.9 F Pulse Rate 72 83 90 Respiratory Rate 17 Blood Pressure 140/88 Pulse Oximetry 97 01/09/18 12:20 01/09/18 12:26 01/09/18 13:00 Temperature Pulse Rate 92 H Respiratory Rate 18 Blood Pressure Pulse Oximetry 98 01/09/18 14:00 01/09/18 15:00 01/09/18 16:00 Temperature 98.6 F Pulse Rate 73 73 83 Respiratory Rate 17 Blood Pressure 134/63 Pulse Oximetry 97 01/09/18 17:00 01/09/18 18:00 01/09/18 19:00 Temperature 97.6 F Pulse Rate 80 75 75 Respiratory Rate 16 Blood Pressure 146/70 H Pulse Oximetry 98 01/09/18 20:00 01/09/18 21:00 01/09/18 21:19 Temperature Pulse Rate 74 72 Respiratory Rate Blood Pressure Pulse Oximetry 97 01/09/18 21:42 01/09/18 22:00 01/09/18 23:00 Temperature 98.1 F Pulse Rate 78 70 Respiratory Rate 16 18 Blood Pressure 154/72 H Pulse Oximetry 98 01/10/18 00:00 01/10/18 00:27 01/10/18 01:00 Temperature Pulse Rate 66 64 Respiratory Rate 18 Blood Pressure Pulse Oximetry 01/10/18 02:00 01/10/18 02:39 01/10/18 03:00 Temperature 98.1 F Pulse Rate 65 62 Respiratory Rate 16 18 Blood Pressure 129/66 Pulse Oximetry 98 01/10/18 04:00 01/10/18 05:00 01/10/18 06:00 Temperature Pulse Rate 63 61 62 Respiratory Rate Blood Pressure Pulse Oximetry 01/10/18 07:00 01/10/18 08:05 Temperature 98 F Pulse Rate 66 Respiratory Rate 14 Blood Pressure 119/60 Pulse Oximetry 98 Result Diagrams: 01/09/18 03:25 01/09/18 03:25 - Plan (1) Collapse of right lung Plan: right lung mass path Based on pathologic findings he has a T1 N2 tumor, radiographic imaging indicates no evidence of metastatic disease. Due to the extensive donna involvement as well as positive margins from a medical oncology standpoint he will be a candidate for postoperative combined chemoradiotherapy.3 chest tube removed f/u CXR small stable right PTX (2) COPD exacerbation Plan: wean steroids / change to po taper dose (3) Claudication in peripheral vascular disease Plan: on ASA, ok to start plavix after surgery and when chest tubes out (4) S/P thoracotomy Plan: pain control path pending OOB pulm toileting leukocytosis / despite weaning steroids OOB ambulate f/u CXR in am cultures pending
[2018-01-10] MEDS: Senna/Docusate Sodium 8.6/50 MG Tablet PO SCH ×2 (09:36→20:19)
[2018-01-10] MEDS: guaiFENesin 600 MG ER Tablet PO SCH ×2 (09:37→20:19)
[2018-01-10] MEDS: predniSONE 20 MG Tablet PO SCH (09:37)
[2018-01-10] MEDS: Enoxaparin Inj 30 MG/0.3 ML Syringe SQ SCH (16:24)
--- NOTE | 2018-01-10 18:42 | P.PNPL ---
Subjective Interval history: 62 YOWM with COPD,RUL endobronchial mass, PAD No Fever No CP Had Rt upper lobectomy Mild pain CXR small ptx Bx sq cell ca with adenoca Physical Exam Vital signs: Vital Signs 01/09/18 19:00 01/09/18 20:00 01/09/18 21:00 Temperature 97.6 F Pulse Rate 75 74 72 Respiratory Rate 16 Blood Pressure 146/70 H Pulse Oximetry 98 01/09/18 21:19 01/09/18 21:42 01/09/18 22:00 Temperature Pulse Rate 78 Respiratory Rate 16 Blood Pressure Pulse Oximetry 97 01/09/18 23:00 01/10/18 00:00 01/10/18 00:27 Temperature 98.1 F Pulse Rate 70 66 Respiratory Rate 18 18 Blood Pressure 154/72 H Pulse Oximetry 98 01/10/18 01:00 01/10/18 02:00 01/10/18 02:39 Temperature Pulse Rate 64 65 Respiratory Rate 16 Blood Pressure Pulse Oximetry 01/10/18 03:00 01/10/18 04:00 01/10/18 05:00 Temperature 98.1 F Pulse Rate 62 63 61 Respiratory Rate 18 Blood Pressure 129/66 Pulse Oximetry 98 01/10/18 06:00 01/10/18 07:00 01/10/18 08:00 Temperature 98 F Pulse Rate 62 66 86 Respiratory Rate 14 Blood Pressure 119/60 Pulse Oximetry 01/10/18 08:05 01/10/18 09:00 01/10/18 10:00 Temperature Pulse Rate 87 89 Respiratory Rate Blood Pressure Pulse Oximetry 98 01/10/18 15:00 Temperature 97.7 F Pulse Rate 96 H Respiratory Rate 20 Blood Pressure 112/60 Pulse Oximetry 97 Intake & Output 01/09/18 01/10/18 01/10/18 18:59 06:59 18:59 Intake Total 600 / 600 Output Total 675 / 675 Balance 600 / 600 -675 / -675 Weight 84.5 kg Intake: Oral 600 / 600 Output: Urine 675 / 675 Other: # Voids 11 2 Date of Last Bowel Movement 01/09/18 01/09/18 # Bowel Movements 1 GENERAL: WBWN NAD SKIN: Warm and dry. HEAD: Normocephalic. EYES: No scleral icterus. No injection or drainage. NECK: Supple, trachea midline. No JVD or lymphadenopathy. CARDIOVASCULAR: Regular rate and rhythm without murmurs, gallops, or rubs. RESPIRATORY: Breath sounds equal bilaterally. No accessory muscle use. GASTROINTESTINAL: Abdomen soft, non-tender, nondistended. MUSCULOSKELETAL: No cyanosis, or edema. BACK: Nontender without obvious deformity. No CVA tenderness. - Urinary Catheter Management Indwelling Urethral Catheter Cath placed during this visit: yes, but has since been removed by the nurse Reason for continuing: Decision to DC catheter Insertion date: 01/05/18 Insertion time: 22:00 Removal date: 01/09/18 Removal time: 11:00 Straight Cath placed during this visit: yes, but has since been removed by the nurse Reason for continuing: Acute urinary retention Insertion date: 01/05/18 Insertion time: 17:00 Removal date: 01/05/18 Removal time: 17:08 Assessment and Plan - Plan IMPRESSION: 1. Right lung endobronchial mass, likely malignancy.s/p RULobectomy SQ, cell ca lung and Adenocarcinoma 2. Chronic obstructive pulmonary disease. 3. Peripheral artery disease, status post operative procedure done. 4. Nicotine abuse. 5. History of alcohol abuse. 6. The patient is homeless. PLAN: Aerosol nebs Prednisone 40 mg daily. Supplement 02 Seen by Oncology plans to start Chemo Monitor PTX
[2018-01-10 22:25] LABS: Bilirubin,Urine Negative (Negative); Clarity,Urine Clear (Clear); Color,Urine Yellow (Yellw/Straw); Glucose,Urine (UA) 500 or Greater mg/dL (Negative); Leukocyte Esterase,Urine Negative (Negative); Mucus,Urine Few /lpf (Occasional); Nitrite,Urine Negative (Negative); Specific Gravity,Urine 1.025 (1.002-1.035); Squamous Epithelial Cell,Urine <1 /hpf (0-5)
[2018-01-11] MEDS: Temazepam 15 MG Capsule PO PRN ×2 (00:05→23:13)
--- NOTE | 2018-01-11 05:27 | XR ---
EXAM DATE: 01/11/2018 5:06 AM EDT AGE/SEX: 62 years / Male INDICATIONS: Shortness of breath. CLINICAL DATA: This is the patient's subsequent encounter. Patient reports that signs and symptoms h ave been present for 2 weeks and indicates a pain score of 0/10. MEDICAL/SURGICAL HISTORY: . Chronic obstructive pulmonary disease. Hypertension. Peripheral art katelyn disease. . Lobectomy. COMPARISON: [facility] – [place], CHEST 1V SINGLE AP, 01/10/2018. . FINDINGS: A single AP view of the chest demonstrates no significant change. A small right-sided pneumothorax is unchanged in size. Subcutaneous air overlying the right chest and base of neck again noted. Heart is normal in size. No infiltrate or effusion. CONCLUSION: Unchanged pneumothorax. Electronically signed by: Minor Vizcarra MD 01/11/2018 5:26 AM EDT
[2018-01-11] MEDS: predniSONE 20 MG Tablet PO SCH (08:08)
[2018-01-11] MEDS: guaiFENesin 600 MG ER Tablet PO SCH ×2 (08:09→20:57)
[2018-01-11] MEDS: Senna/Docusate Sodium 8.6/50 MG Tablet PO SCH ×2 (08:09→20:57)
--- NOTE | 2018-01-11 11:35 | P.PNCV ---
- Note Subjective/Hospital Course: 62/ male initially admitted a month ago for blood-tinged sputum, shortness of breath. CT chest at the time found a mass involving the right upper lobe bronchus with resultant collapse of the right upper lobe. He underwent bronchoscopy and was found to have a very large endobronchial mass obstructing the right upper lobe mainstem bronchus. He had post significant bleeding. Bronchial washings were attempted. The cytology was negative. He was then discharged home with recommendations to followup with Dr. Cameron Kovacs with Oncology, but was unable to see him in the clinic due insurance authorization. He presented again to the hospital with complaints of chest discomfort, swelling of his right lower extremity and was found to have an arterial obstruction and underwent a surgical revascularization by Dr. Locke on 12/26/2017. He had aortogram with right lower extremity angiogram, he had a right EIA orbital arthrectomy and angioplasty, right superficial artery [employer]ODU[employer] TE[employer]. He placed a stent in the right superficial femoral artery. We were consulted due to this large mass. 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 The patient is homeless. Hyperlipidemia, hypertension, history of MRSA, tobacco abuse. 12/30 pt doing fair, still SOB with any exertion for surgery on Tue / Right Thoracotomy / right upper lobectomy 01/03 stable for surgery in am on room air 01/04 surgery 1. Right posterolateral Muscle Sparing Thoracotomy 2. Right Upper lobectomy 3. Mediastinal Lymph Node Dissection 01/05 pt needs aggressive pulm toileting pain controlled 01/06 worsening coarse breath sounds, wheezing leukocytosis despite weaning steroids repeat CXR in am check cultures, pt also had some urinary retention last night, required replacement of hartman cath start flomax start zosyn / dc CVC line 01/07 Clinically stable. Persistent wheezing and coarse breath sounds Persistent leukocytosis with cultures pending Needs aggressive pulmonary toiletry and ambulation Continue antibiotics Awaiting pathology 01/08 Doing well Pathology noted with synchronous primaries and N2 disease Will need oncology evaluation Likely D/C CT tomorrow 01/09 chest tube dc without difficulty, check CXR at 1200 noon if stable can transfer out of CPCU dc hartman cath 01/10 pt urinating without difficulty CXR noted stable right apical PTX f/u CXR on ok to transfer to oncology floor ok for nursing to change dressing and shower in am 01/11 CXR noted , small right apical PTX mild sub q emphysema on nasal cannula ok for pt to shower Objective: Vital Signs - 24 hr 01/10/18 15:00 01/10/18 19:00 01/10/18 20:57 Temperature 97.7 F 98.1 F Pulse Rate 96 H 99 H 101 H Respiratory Rate 20 18 Blood Pressure 112/60 109/68 Pulse Oximetry 97 97 01/10/18 23:00 01/11/18 00:57 01/11/18 02:40 Temperature 97.6 F Pulse Rate 97 H 87 Respiratory Rate 18 16 Blood Pressure 128/75 Pulse Oximetry 95 01/11/18 03:00 01/11/18 05:32 01/11/18 07:00 Temperature 98.0 F Pulse Rate 79 78 Respiratory Rate 16 12 Blood Pressure 128/76 Pulse Oximetry 99 01/11/18 08:13 Temperature 98.0 F Pulse Rate 82 Respiratory Rate 16 Blood Pressure 117/74 Pulse Oximetry GENERAL: A&O x 3 SKIN: Warm and dry. dressing to right lateral chest wall, incision intact right postero lateral chest wall HEAD: Normocephalic. EYES: No scleral icterus. No injection or drainage. NECK: Supple, trachea midline. No JVD or lymphadenopathy. CARDIOVASCULAR: Regular rate and rhythm without murmurs, gallops, or rubs. RESPIRATORY: Breath sounds equal bilaterally. No accessory muscle use. + sub q air right shoulder and back GASTROINTESTINAL: Abdomen soft, non-tender, nondistended. MUSCULOSKELETAL: No cyanosis, or edema. BACK: Nontender without obvious deformity. No CVA tenderness. Result Diagrams: 01/09/18 03:25 01/09/18 03:25 - Plan (1) Collapse of right lung Plan: right lung mass path Based on pathologic findings he has a T1 N2 tumor, radiographic imaging indicates no evidence of metastatic disease. Due to the extensive donna involvement as well as positive margins from a medical oncology standpoint he will be a candidate for postoperative combined chemoradiotherapy.3 f/u CXR small stable right PTX daily dressing change to chest tube site if draining (2) COPD exacerbation Plan: wean steroids / change to po taper dose (3) Claudication in peripheral vascular disease Plan: on ASA, ok to start plavix after surgery and when chest tubes out (4) S/P thoracotomy Plan: pain control path pending OOB pulm toileting leukocytosis / despite weaning steroids OOB ambulate f/u CXR in am cultures pending
[2018-01-11] MEDS: Budesonide-Formoterol 160/4.5 MCG 6 GM Inhaler INH SCH ×2 (12:31→20:58)
[2018-01-11] MEDS: Enoxaparin Inj 30 MG/0.3 ML Syringe SQ SCH (15:39)
--- NOTE | 2018-01-11 15:50 | P.PNIM ---
Subjective Interval history: Patient reports he is feeling okay. Coughing a little less. Physical Exam Vital signs: Vital Signs 01/10/18 19:00 01/10/18 20:57 01/10/18 23:00 Temperature 98.1 F 97.6 F Pulse Rate 99 H 101 H 97 H Respiratory Rate 18 18 Blood Pressure 109/68 128/75 Pulse Oximetry 97 95 01/11/18 00:57 01/11/18 02:40 01/11/18 03:00 Temperature 98.0 F Pulse Rate 87 79 Respiratory Rate 16 16 Blood Pressure 128/76 Pulse Oximetry 99 01/11/18 05:32 01/11/18 07:00 01/11/18 08:13 Temperature 98.0 F Pulse Rate 78 82 Respiratory Rate 12 16 Blood Pressure 117/74 Pulse Oximetry 01/11/18 11:00 01/11/18 15:00 Temperature 97.7 F 97.2 F L Pulse Rate 82 83 Respiratory Rate 18 18 Blood Pressure 115/62 105/66 Pulse Oximetry Intake & Output 01/10/18 01/11/18 01/11/18 18:59 06:59 18:59 Intake Total 870 / 870 960 / 960 Output Total 600 / 600 1075 / 1075 500 / 500 Balance 270 / 270 -115 / -115 -500 / -500 Weight 79.3 kg Intake: Oral 870 / 870 960 / 960 Output: Urine 600 / 600 1075 / 1075 500 / 500 Other: # Voids 1 1 Date of Last Bowel Movement 01/10/18 01/10/18 # Bowel Movements 1 1 Narrative: GENERAL: No acute distress. CARDIOVASCULAR: Regular rate and rhythm without murmurs, gallops, or rubs. RESPIRATORY: Decreased breath sounds bilateral, right posterior surgical wound. GASTROINTESTINAL: Abdomen soft, non-tender, nondistended. MUSCULOSKELETAL: No cyanosis, or edema. - Urinary Catheter Management Indwelling Urethral Catheter Cath placed during this visit: yes, but has since been removed by the nurse Reason for continuing: Decision to DC catheter Insertion date: 01/05/18 Insertion time: 22:00 Removal date: 01/09/18 Removal time: 11:00 Straight Cath placed during this visit: yes, but has since been removed by the nurse Reason for continuing: Acute urinary retention Insertion date: 01/05/18 Insertion time: 17:00 Removal date: 01/05/18 Removal time: 17:08 Results - Labs CBC & Chem 7: 01/09/18 03:25 01/09/18 03:25 Laboratory Results - last 24 hr 01/10/18 20:00 Urine Color Yellow Urine Clarity Clear Urine pH 5.0 Ur Specific [place] 1.025 Urine Protein Negative Urine Glucose (UA) 500 or greater Urine Ketones Trace Urine Occult Blood Moderate H Urine Nitrate Negative Urine Bilirubin Negative Urine Urobilinogen Less than 2 Ur Leukocyte Esterase Negative Urine RBC 11 H Urine WBC 3 Ur Squamous Epith Cells <1 Urine Mucus Few H Micro UA Comment Culture not ind Urine Culture Comments Culture not ind Microbiology 01/06/18 11:45 Blood - Line Aerobic Blood Culture - Final No growth in 5 days 01/06/18 11:45 Blood - Line Anaerobic Blood Culture - Final No growth in 5 days 01/06/18 11:38 Blood - Line Aerobic Blood Culture - Final No growth in 5 days 01/06/18 11:38 Blood - Line Anaerobic Blood Culture - Final No growth in 5 days - Imaging Impressions Chest X-Ray 01/11/18 06:00 CONCLUSION: Unchanged pneumothorax. - Procedures Date of procedure: 01/04/18 Anesthesia: GETA Surgeon: Zaida Serrano MD Operation and Findings: PREOPERATIVE DIAGNOSIS 1. Right Upper lobe Lung Mass 2. Right upper lobe endobronchial obstruction with complete collapse 3. COPD POSTOPERATIVE DIAGNOSIS same PROCEDURES 1. Right posterolateral Muscle Sparing Thoracotomy 2. Right Upper lobectomy 3. Mediastinal Lymph Node Dissection 4. Intercostal Nerve Block SURGEON Zaida Serrano MD Assessment and Plan - Plan 62-year-old male with: 1. Right Lung endobronchial Mass Likely malignancy, status post Right posterolateral Muscle sparing thoracotomy, Right upper lobectomy, Mediastinal lymph node dissection, intercostal nerve block. 01/04/[address] Zaida Serrano. As per Cardiothoracic surgery, has T1N2 tumor and no metastasis, extensive donna involvement, and positive margins, continue and wean steroids, on Aspirin and okay to start Plavix after chest tube per explosive ordnance disposal specialist he will need Chemoradiation therapy after he is healed from the surgery 2. PAD/left Lower extremity revascularization, management as per Vascular surgery on Plavix 75 mg and Aspirin 81 mg daily, anticoagulation as per Cardiothoracic surgery. 3. Chronic Respiratory failure/COPD/Right lower lung collapse Bronchodilator, Mucolytic incentive spirometry Steroids. 4. Alcohol abuse History of alcohol withdrawal [facility] protocol, No signs of withdrawal. 5. Tobacco abuse: Strongly recommended to stop smoking. 6. Hypertension controlled. 7. Urinary retention Peres cath placed and Flomax started. 8. Abnormal urinalysis: Empirically treated with Zosyn. Urine culture is negative. Antibiotics discontinued. Discharge Planning: Will need chemotherapy inpatient when ready.
--- NOTE | 2018-01-11 16:04 | P.PNPL ---
Subjective Interval history: 62 YOWM with COPD,RUL endobronchial mass, PAD No Fever No CP Had Rt upper lobectomy Mild pain Bx sq cell ca with adenoca Physical Exam Vital signs: Vital Signs 01/10/18 19:00 01/10/18 20:57 01/10/18 23:00 Temperature 98.1 F 97.6 F Pulse Rate 99 H 101 H 97 H Respiratory Rate 18 18 Blood Pressure 109/68 128/75 Pulse Oximetry 97 95 01/11/18 00:57 01/11/18 02:40 01/11/18 03:00 Temperature 98.0 F Pulse Rate 87 79 Respiratory Rate 16 16 Blood Pressure 128/76 Pulse Oximetry 99 01/11/18 05:32 01/11/18 07:00 01/11/18 08:13 Temperature 98.0 F Pulse Rate 78 82 Respiratory Rate 12 16 Blood Pressure 117/74 Pulse Oximetry 01/11/18 11:00 01/11/18 15:00 Temperature 97.7 F 97.2 F L Pulse Rate 82 83 Respiratory Rate 18 18 Blood Pressure 115/62 105/66 Pulse Oximetry Intake & Output 01/10/18 01/11/18 01/11/18 18:59 06:59 18:59 Intake Total 870 / 870 960 / 960 Output Total 600 / 600 1075 / 1075 500 / 500 Balance 270 / 270 -115 / -115 -500 / -500 Weight 79.3 kg Intake: Oral 870 / 870 960 / 960 Output: Urine 600 / 600 1075 / 1075 500 / 500 Other: # Voids 1 1 Date of Last Bowel Movement 01/10/18 01/10/18 # Bowel Movements 1 1 GENERAL: WBWN,NAD SKIN: Warm and dry. HEAD: Normocephalic. EYES: No scleral icterus. No injection or drainage. NECK: Supple, trachea midline. No JVD or lymphadenopathy. CARDIOVASCULAR: Regular rate and rhythm without murmurs, gallops, or rubs. RESPIRATORY: Breath sounds equal bilaterally. No accessory muscle use. GASTROINTESTINAL: Abdomen soft, non-tender, nondistended. MUSCULOSKELETAL: No cyanosis, or edema. BACK: Nontender without obvious deformity. No CVA tenderness. - Urinary Catheter Management Indwelling Urethral Catheter Cath placed during this visit: yes, but has since been removed by the nurse Reason for continuing: Decision to DC catheter Insertion date: 01/05/18 Insertion time: 22:00 Removal date: 01/09/18 Removal time: 11:00 Straight Cath placed during this visit: yes, but has since been removed by the nurse Reason for continuing: Acute urinary retention Insertion date: 01/05/18 Insertion time: 17:00 Removal date: 01/05/18 Removal time: 17:08 Assessment and Plan - Plan IMPRESSION: 1. Right lung endobronchial mass, likely malignancy.s/p RULobectomy SQ, cell ca lung and Adenocarcinoma 2. Chronic obstructive pulmonary disease. 3. Peripheral artery disease, status post operative procedure done. 4. Nicotine abuse. 5. History of alcohol abuse. 6. The patient is homeless. PLAN: Aerosol nebs Prednisone 40 mg daily. Supplement 02 Seen by Oncology plans to start Chemo
[2018-01-12 06:04] LABS: Hematocrit 25.4 % (39.0-51.0); Hemoglobin 8.5 gm/dL (13.0-17.0); Mean Corpuscular HGB Conc 33.4 % (32.0-36.0); Mean Corpuscular Hemoglobin 34.3 pg (27.0-34.0); Mean Corpuscular Volume 102.7 fL (80.0-100.0); Mean Platelet Volume 8.7 fL (7.0-11.0); Platelet Count 112 th/mm3 (150-450); Red Blood Count 2.47 mil/mm3 (4.50-5.90); Red Cell Distribution Width 16.6 % (11.6-17.2); White Blood Count 17.4 th/mm3 (4.0-11.0)
[2018-01-12 06:26] LABS: Anion Gap 7 meq/L (5-15); Blood Urea Nitrogen 18 mg/dL (7-18); Calcium 7.9 mg/dL (8.5-10.1); Carbon Dioxide 31.4 meq/L (21.0-32.0); Chloride 101 meq/L (98-107); Glomerular Filtration Rate Greater Than 89 mL/min (>89); Glucose,Random 89 mg/dL (74-106); Potassium 3.8 meq/L (3.5-5.1); Sodium 139 meq/L (136-145)
[2018-01-12 09:14] LABS: Eosinophils 1 % (0-4); Lymphocytes 10 % (9-44); Metamyelocytes 23 % (0-1); Monocytes 4 % (0-8); Myelocytes 9 % (0-0)
[2018-01-12 09:15] LABS: Platelet Morphology Normal (Normal); Toxic Granulation 2+
[2018-01-12] MEDS: predniSONE 20 MG Tablet PO SCH (09:15)
[2018-01-12] MEDS: Senna/Docusate Sodium 8.6/50 MG Tablet PO SCH ×2 (09:15→21:08)
[2018-01-12] MEDS: guaiFENesin 600 MG ER Tablet PO SCH ×2 (09:15→21:08)
[2018-01-12] MEDS: Budesonide-Formoterol 160/4.5 MCG 6 GM Inhaler INH SCH ×2 (09:16→21:08)
--- NOTE | 2018-01-12 13:58 | P.PNCV ---
- Note Subjective/Hospital Course: 62/ male initially admitted a month ago for blood-tinged sputum, shortness of breath. CT chest at the time found a mass involving the right upper lobe bronchus with resultant collapse of the right upper lobe. He underwent bronchoscopy and was found to have a very large endobronchial mass obstructing the right upper lobe mainstem bronchus. He had post significant bleeding. Bronchial washings were attempted. The cytology was negative. He was then discharged home with recommendations to followup with Dr. Cameron Kovacs with Oncology, but was unable to see him in the clinic due insurance authorization. He presented again to the hospital with complaints of chest discomfort, swelling of his right lower extremity and was found to have an arterial obstruction and underwent a surgical revascularization by Dr. Locke on 12/26/2017. 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 He placed a stent in the right superficial femoral artery. We were consulted due to this large mass. 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 The patient is homeless. Hyperlipidemia, hypertension, history of MRSA, tobacco abuse. 12/30 pt doing fair, still SOB with any exertion for surgery on Tue / Right Thoracotomy / right upper lobectomy 01/03 stable for surgery in am on room air 01/04 surgery 1. Right posterolateral Muscle Sparing Thoracotomy 2. Right Upper lobectomy 3. Mediastinal Lymph Node Dissection 01/05 pt needs aggressive pulm toileting pain controlled 01/06 worsening coarse breath sounds, wheezing leukocytosis despite weaning steroids repeat CXR in am check cultures, pt also had some urinary retention last night, required replacement of hartman cath start flomax start zosyn / dc CVC line 01/07 Clinically stable. Persistent wheezing and coarse breath sounds Persistent leukocytosis with cultures pending Needs aggressive pulmonary toiletry and ambulation Continue antibiotics Awaiting pathology 01/08 Doing well Pathology noted with synchronous primaries and N2 disease Will need oncology evaluation Likely D/C CT tomorrow 01/09 chest tube dc without difficulty, check CXR at 1200 noon if stable can transfer out of [facility] dc hartman cath 01/10 pt urinating without difficulty CXR noted stable right apical PTX f/u CXR on ok to transfer to oncology floor ok for nursing to change dressing and shower in am 01/11 CXR noted , small right apical PTX mild sub q emphysema on nasal cannula ok for pt to shower 01/12 remains on nasal cannula feels fair, pain controlled awaiting decisions on chemo inpt will sign off Objective: Vital Signs - 24 hr 01/11/18 15:00 01/11/18 19:00 01/11/18 23:00 Temperature 97.2 F L 97.9 F 97.6 F Pulse Rate 83 83 77 Respiratory Rate 18 20 16 Blood Pressure 105/66 118/69 126/75 Pulse Oximetry 01/12/18 03:00 01/12/18 07:00 Temperature 98.1 F 97.8 F Pulse Rate 75 70 Respiratory Rate 18 20 Blood Pressure 122/60 111/69 Pulse Oximetry 100 GENERAL: A&O x 3 SKIN: Warm and dry. right posterior lateral incision intact / HEAD: Normocephalic. EYES: No scleral icterus. No injection or drainage. NECK: Supple, trachea midline. No JVD or lymphadenopathy. CARDIOVASCULAR: Regular rate and rhythm without murmurs, gallops, or rubs. RESPIRATORY: Breath sounds equal bilaterally. No accessory muscle use. few coarse breath sounds GASTROINTESTINAL: Abdomen soft, non-tender, nondistended. MUSCULOSKELETAL: No cyanosis, or edema. BACK: Nontender without obvious deformity. No CVA tenderness. Labs: Laboratory Results - last 12 hr 01/12/18 01/12/18 05:42 05:42 WBC 17.4 H RBC 2.47 L Hgb 8.5 L Hct 25.4 L MCV 102.7 H MCH 34.3 H MCHC 33.4 RDW 16.6 Plt Count 112 L MPV 8.7 Prelim Diff (Auto) Manual diff required WBC Differential Manual diff final Seg Neuts % (Manual) 49 Band Neuts % (Manual) 4 Lymphocytes % (Manual) 10 Monocytes % (Manual) 4 Eosinophils % (Manual) 1 Metamyelocytes % (Man) 23 H Myelocytes % (Man) 9 H Abs Neuts (Manual) 14.8 H Differential Comment . Toxic Granulation 2+ H Platelet Estimate Low L Platelet Morphology Normal Sodium 139 Potassium 3.8 Chloride 101 Carbon Dioxide 31.4 Anion Gap 7 BUN 18 Creatinine 0.41 L Estimated GFR Greater than 89 Random Glucose 89 Calcium 7.9 L Result Diagrams: 01/12/18 05:42 01/12/18 05:42 - Plan (1) Collapse of right lung Plan: right lung mass path Based on pathologic findings he has a T1 N2 tumor, radiographic imaging indicates no evidence of metastatic disease. Due to the extensive donna involvement as well as positive margins from a medical oncology standpoint he will be a candidate for postoperative combined chemoradiotherapy.3 f/u CXR small stable right PTX daily dressing change to chest tube site if draining will sign off (2) COPD exacerbation Plan: wean steroids / change to po taper dose (3) Claudication in peripheral vascular disease Plan: on ASA, ok to start plavix after surgery and when chest tubes out (4) S/P thoracotomy Plan: pain control path pending OOB pulm toileting leukocytosis / despite weaning steroids OOB ambulate f/u CXR in am cultures pending
[2018-01-12] MEDS: Enoxaparin Inj 30 MG/0.3 ML Syringe SQ SCH (15:00)
--- NOTE | 2018-01-12 15:59 | P.PNIM ---
Subjective Interval history: Patient reports he is feeling okay. Minimal cough. Physical Exam Vital signs: Vital Signs 01/11/18 19:00 01/11/18 23:00 01/12/18 03:00 Temperature 97.9 F 97.6 F 98.1 F Pulse Rate 83 77 75 Respiratory Rate Blood Pressure 118/69 126/75 122/60 Pulse Oximetry 01/12/18 07:00 01/12/18 11:00 01/12/18 14:58 Temperature 97.8 F 97.8 F 98.4 F Pulse Rate 70 86 96 H Respiratory Rate Blood Pressure 111/69 103/67 123/70 Pulse Oximetry 100 95 98 Intake & Output 01/11/18 01/12/18 01/12/18 18:59 06:59 18:59 Intake Total 480 / 480 720 / 720 Output Total 500 / 500 800 / 800 Balance -20 / -20 -80 / -80 Weight 79 kg Intake: Oral 480 / 480 720 / 720 Output: Urine 500 / 500 800 / 800 Other: Date of Last Bowel Movement 01/10/18 01/11/18 Narrative: GENERAL: No acute distress. CARDIOVASCULAR: Regular rate and rhythm without murmurs, gallops, or rubs. RESPIRATORY: Decreased breath sounds bilateral, right posterior surgical wound. GASTROINTESTINAL: Abdomen soft, non-tender, nondistended. MUSCULOSKELETAL: No cyanosis, or edema. - Urinary Catheter Management Indwelling Urethral Catheter Cath placed during this visit: yes, but has since been removed by the nurse Reason for continuing: Decision to DC catheter Insertion date: 01/05/18 Insertion time: 22:00 Removal date: 01/09/18 Removal time: 11:00 Straight Cath placed during this visit: yes, but has since been removed by the nurse Reason for continuing: Acute urinary retention Insertion date: 01/05/18 Insertion time: 17:00 Removal date: 01/05/18 Removal time: 17:08 Results - Labs CBC & Chem 7: 01/12/18 05:42 01/12/18 05:42 Laboratory Results - last 24 hr 01/12/18 01/12/18 05:42 05:42 WBC 17.4 H RBC 2.47 L Hgb 8.5 L Hct 25.4 L MCV 102.7 H MCH 34.3 H MCHC 33.4 RDW 16.6 Plt Count 112 L MPV 8.7 Prelim Diff (Auto) Manual diff required WBC Differential Manual diff final Seg Neuts % (Manual) 49 Band Neuts % (Manual) 4 Lymphocytes % (Manual) 10 Monocytes % (Manual) 4 Eosinophils % (Manual) 1 Metamyelocytes % (Man) 23 H Myelocytes % (Man) 9 H Abs Neuts (Manual) 14.8 H Differential Comment . Toxic Granulation 2+ H Platelet Estimate Low L Platelet Morphology Normal Sodium 139 Potassium 3.8 Chloride 101 Carbon Dioxide 31.4 Anion Gap 7 BUN 18 Creatinine 0.41 L Estimated GFR Greater than 89 Random Glucose 89 Calcium 7.9 L - Procedures Date of procedure: 01/04/18 Anesthesia: GETA Surgeon: Zaida Serrano MD Operation and Findings: PREOPERATIVE DIAGNOSIS 1. Right Upper lobe Lung Mass 2. Right upper lobe endobronchial obstruction with complete collapse 3. COPD POSTOPERATIVE DIAGNOSIS same PROCEDURES 1. Right posterolateral Muscle Sparing Thoracotomy 2. Right Upper lobectomy 3. Mediastinal Lymph Node Dissection 4. Intercostal Nerve Block SURGEON Zaida Serrano MD Assessment and Plan - Plan 62-year-old male with: 1. Right Lung endobronchial Mass Likely malignancy, status post Right posterolateral Muscle sparing thoracotomy, Right upper lobectomy, Mediastinal lymph node dissection, intercostal nerve block. 01/04/[address] Zaida Serrano. As per Cardiothoracic surgery, has T1N2 tumor and no metastasis, extensive donna involvement, and positive margins, continue and wean steroids, on Aspirin and okay to start Plavix after chest tube per pipe recovery specialist he will need Chemoradiation therapy after he is healed from the surgery. 2-3 weeks. 2. PAD/left Lower extremity revascularization, management as per Vascular surgery on Plavix 75 mg and Aspirin 81 mg daily, anticoagulation as per Cardiothoracic surgery. 3. Chronic Respiratory failure/COPD/Right lower lung collapse Bronchodilator, Mucolytic incentive spirometry Steroids. 4. Alcohol abuse History of alcohol withdrawal [place] protocol, No signs of withdrawal. 5. Tobacco abuse: Strongly recommended to stop smoking. 6. Hypertension controlled. 7. Urinary retention Peres cath placed and Flomax started. 8. Abnormal urinalysis: Empirically treated with Zosyn. Urine culture is negative. Antibiotics discontinued. Discharge Planning: Will need chemotherapy inpatient when ready.
--- NOTE | 2018-01-12 18:05 | P.PNPL ---
Subjective Interval history: 62 YOWM with COPD,RUL endobronchial mass, PAD No Fever No CP Had Rt upper lobectomy Bx sq cell ca with adenoca Appetite fair Physical Exam Vital signs: Vital Signs 01/11/18 19:00 01/11/18 23:00 01/12/18 03:00 Temperature 97.9 F 97.6 F 98.1 F Pulse Rate 83 77 75 Respiratory Rate 18 Blood Pressure 118/69 126/75 122/60 Pulse Oximetry 01/12/18 07:00 01/12/18 11:00 01/12/18 14:58 Temperature 97.8 F 97.8 F 98.4 F Pulse Rate 70 89 96 H Respiratory Rate Blood Pressure 111/69 103/67 123/70 Pulse Oximetry 100 95 98 01/12/18 15:00 Temperature Pulse Rate 96 H Respiratory Rate Blood Pressure Pulse Oximetry Intake & Output 01/11/18 01/12/18 01/12/18 18:59 06:59 18:59 Intake Total 480 / 480 720 / 720 Output Total 500 / 500 800 / 800 Balance -20 / -20 -80 / -80 Weight 79 kg Intake: Oral 480 / 480 720 / 720 Output: Urine 500 / 500 800 / 800 Other: Date of Last Bowel Movement 01/10/18 01/11/18 GENERAL: WBWN, NAD SKIN: Warm and dry. HEAD: Normocephalic. EYES: No scleral icterus. No injection or drainage. NECK: Supple, trachea midline. No JVD or lymphadenopathy. CARDIOVASCULAR: Regular rate and rhythm without murmurs, gallops, or rubs. RESPIRATORY: Breath sounds equal bilaterally. No accessory muscle use. GASTROINTESTINAL: Abdomen soft, non-tender, nondistended. MUSCULOSKELETAL: No cyanosis, or edema. BACK: Nontender without obvious deformity. No CVA tenderness. - Urinary Catheter Management Indwelling Urethral Catheter Cath placed during this visit: yes, but has since been removed by the nurse Reason for continuing: Decision to DC catheter Insertion date: 01/05/18 Insertion time: 22:00 Removal date: 01/09/18 Removal time: 11:00 Straight Cath placed during this visit: yes, but has since been removed by the nurse Reason for continuing: Acute urinary retention Insertion date: 01/05/18 Insertion time: 17:00 Removal date: 01/05/18 Removal time: 17:08 Assessment and Plan - Plan IMPRESSION: 1. Right lung endobronchial mass, .s/p RULobectomy SQ, cell ca lung and Adenocarcinoma 2. Chronic obstructive pulmonary disease. 3. Peripheral artery disease, status post operative procedure done. 4. Nicotine abuse. 5. History of alcohol abuse. 6. The patient is homeless. PLAN: Aerosol nebs Prednisone 40 mg daily. Supplement 02 Seen by Oncology plans to start Chemo
[2018-01-12] MEDS: Temazepam 15 MG Capsule PO PRN (22:27)
[2018-01-13 06:20] LABS: Hematocrit 23.6 % (39.0-51.0); Hemoglobin 7.9 gm/dL (13.0-17.0); Mean Corpuscular HGB Conc 33.3 % (32.0-36.0); Mean Corpuscular Volume 102.1 fL (80.0-100.0); Mean Platelet Volume 9.2 fL (7.0-11.0); Platelet Count 115 th/mm3 (150-450); Red Blood Count 2.31 mil/mm3 (4.50-5.90); Red Cell Distribution Width 16.5 % (11.6-17.2); White Blood Count 21.1 th/mm3 (4.0-11.0)
[2018-01-13] MEDS: predniSONE 20 MG Tablet PO SCH (08:09)
[2018-01-13] MEDS: guaiFENesin 600 MG ER Tablet PO SCH ×2 (08:09→21:51)
[2018-01-13] MEDS: Senna/Docusate Sodium 8.6/50 MG Tablet PO SCH ×2 (08:10→21:51)
[2018-01-13] MEDS: Budesonide-Formoterol 160/4.5 MCG 6 GM Inhaler INH SCH ×2 (08:10→21:51)
--- NOTE | 2018-01-13 11:58 | P.PN ---
Subjective Interval history: Follow-up lung cancer January 13, 2018-patient seen and examined, denies any chest pain or shortness of breath. Currently afebrile. Physical Exam Vital signs: Vital Signs 01/12/18 14:58 01/12/18 15:00 01/12/18 19:00 Temperature 98.4 F 97.7 F Pulse Rate 96 H 96 H 99 H Respiratory Rate 22 20 Blood Pressure 123/70 120/70 Pulse Oximetry 98 99 01/12/18 20:06 01/12/18 21:06 01/12/18 23:00 Temperature 97.4 F L Pulse Rate 88 94 H Respiratory Rate 18 16 16 Blood Pressure 118/63 Pulse Oximetry 98 99 01/13/18 00:20 01/13/18 02:00 01/13/18 03:00 Temperature 97.7 F Pulse Rate 90 86 94 H Respiratory Rate 20 Blood Pressure 126/72 Pulse Oximetry 100 01/13/18 04:25 01/13/18 05:25 01/13/18 07:00 Temperature Pulse Rate 85 84 78 Respiratory Rate Blood Pressure Pulse Oximetry 01/13/18 08:00 01/13/18 11:00 Temperature 98.2 F 98.4 F Pulse Rate 84 99 H Respiratory Rate 18 20 Blood Pressure 104/67 117/69 Pulse Oximetry 100 100 Intake & Output 01/12/18 01/13/18 01/13/18 18:59 06:59 18:59 Intake Total 1370 / 1370 240 / 240 Output Total 1540 / 1540 400 / 400 Balance -170 / -170 -160 / -160 Weight 82.5 kg Intake: Oral 1370 / 1370 240 / 240 Output: Urine 1540 / 1540 400 / 400 Other: Date of Last Bowel Movement 01/12/18 01/12/18 01/12/18 Narrative: GENERAL: NAD CARDIOVASCULAR: Regular rate and rhythm without murmurs, gallops, or rubs. RESPIRATORY: Decreased breath sounds bilateral, right posterior surgical wound. GASTROINTESTINAL: Abdomen soft, non-tender, nondistended. MUSCULOSKELETAL: No cyanosis, or edema. - Urinary Catheter Management Indwelling Urethral Catheter Cath placed during this visit: yes, but has since been removed by the nurse Reason for continuing: Decision to DC catheter Insertion date: 01/05/18 Insertion time: 22:00 Removal date: 01/09/18 Removal time: 11:00 Straight Cath placed during this visit: yes, but has since been removed by the nurse Reason for continuing: Acute urinary retention Insertion date: 01/05/18 Insertion time: 17:00 Removal date: 01/05/18 Removal time: 17:08 Results - Labs CBC & Chem 7: 01/13/18 05:10 01/12/18 05:42 Laboratory Results - last 24 hr 01/13/18 05:10 WBC 21.1 H RBC 2.31 L Hgb 7.9 L Hct 23.6 L MCV 102.1 H MCH 34.0 MCHC 33.3 RDW 16.5 Plt Count 115 L MPV 9.2 - Procedures Date of procedure: 01/04/18 Anesthesia: GETA Surgeon: Zaida Serrano MD Operation and Findings: PREOPERATIVE DIAGNOSIS 1. Right Upper lobe Lung Mass 2. Right upper lobe endobronchial obstruction with complete collapse 3. COPD POSTOPERATIVE DIAGNOSIS same PROCEDURES 1. Right posterolateral Muscle Sparing Thoracotomy 2. Right Upper lobectomy 3. Mediastinal Lymph Node Dissection 4. Intercostal Nerve Block SURGEON Zaida Serrano MD Assessment and Plan - Plan 62-year-old man with 1. Right Lung endobronchial Mass status post Right posterolateral Muscle sparing thoracotomy, Right upper lobectomy, Mediastinal lymph node dissection, intercostal nerve block. 01/04/18 Pathology report positive for invasive squamous cell carcinoma and adenocarcinoma of the lung. Per television specialist he will need Chemoradiation therapy in 2-3 weeks. 2. PAD/left Lower extremity revascularization, management as per Vascular surgery on Plavix 75 mg and Aspirin 81 mg daily, anticoagulation as per Cardiothoracic surgery. 3. Chronic Respiratory failure/COPD/Right lower lung collapse Bronchodilator, Mucolytic incentive spirometry,Steroids. 4. Alcohol abuse History of alcohol withdrawal [facility] protocol, No signs of withdrawal. 5. Tobacco abuse: Strongly recommended to stop smoking. 6. Hypertension controlled. 7. Urinary retention Peres cath placed and Flomax started. 8. Abnormal urinalysis: s/p Zosyn. Urine culture is negative.
[2018-01-13] MEDS: Enoxaparin Inj 30 MG/0.3 ML Syringe SQ SCH (14:34)
--- NOTE | 2018-01-13 17:38 | P.PNPL ---
Subjective Interval history: 62 YOWM with COPD,RUL endobronchial mass, PAD No Fever No CP Had Rt upper lobectomy Bx sq cell ca with adenoca No new complaint Physical Exam Vital signs: Vital Signs 01/12/18 19:00 01/12/18 20:06 01/12/18 21:06 Temperature 97.7 F Pulse Rate 99 H 88 Respiratory Rate 20 18 16 Blood Pressure 120/70 Pulse Oximetry 99 98 01/12/18 23:00 01/13/18 00:20 01/13/18 02:00 Temperature 97.4 F L Pulse Rate 94 H 90 86 Respiratory Rate 16 Blood Pressure 118/63 Pulse Oximetry 99 01/13/18 03:00 01/13/18 04:25 01/13/18 05:25 Temperature 97.7 F Pulse Rate 94 H 85 84 Respiratory Rate 20 Blood Pressure 126/72 Pulse Oximetry 100 01/13/18 07:00 01/13/18 08:00 01/13/18 11:00 Temperature 98.2 F 98.4 F Pulse Rate 78 84 99 H Respiratory Rate 18 20 Blood Pressure 104/67 117/69 Pulse Oximetry 100 100 01/13/18 15:00 Temperature 98.2 F Pulse Rate 93 H Respiratory Rate 20 Blood Pressure 125/73 Pulse Oximetry 98 Intake & Output 01/12/18 01/13/18 01/13/18 18:59 06:59 18:59 Intake Total 1370 / 1370 240 / 240 Output Total 1540 / 1540 400 / 400 Balance -170 / -170 -160 / -160 Weight 82.5 kg Intake: Oral 1370 / 1370 240 / 240 Output: Urine 1540 / 1540 400 / 400 Other: Date of Last Bowel Movement 01/12/18 01/12/18 01/12/18 GENERAL: WBWN, NAD SKIN: Warm and dry. HEAD: Normocephalic. EYES: No scleral icterus. No injection or drainage. NECK: Supple, trachea midline. No JVD or lymphadenopathy. CARDIOVASCULAR: Regular rate and rhythm without murmurs, gallops, or rubs. RESPIRATORY: Breath sounds equal bilaterally. No accessory muscle use. GASTROINTESTINAL: Abdomen soft, non-tender, nondistended. MUSCULOSKELETAL: No cyanosis, or edema. BACK: Nontender without obvious deformity. No CVA tenderness. - Urinary Catheter Management Indwelling Urethral Catheter Cath placed during this visit: yes, but has since been removed by the nurse Reason for continuing: Decision to DC catheter Insertion date: 01/05/18 Insertion time: 22:00 Removal date: 01/09/18 Removal time: 11:00 Straight Cath placed during this visit: yes, but has since been removed by the nurse Reason for continuing: Acute urinary retention Insertion date: 01/05/18 Insertion time: 17:00 Removal date: 01/05/18 Removal time: 17:08 Assessment and Plan - Plan IMPRESSION: 1. Right lung endobronchial mass, .s/p RULobectomy SQ, cell ca lung and Adenocarcinoma 2. Chronic obstructive pulmonary disease. 3. Peripheral artery disease, status post operative procedure done. 4. Nicotine abuse. 5. History of alcohol abuse. 6. The patient is homeless. PLAN: Aerosol nebs Prednisone 40 mg daily. Supplement 02 Seen by Oncology plans to start Chemo Stable from Pulm standpoint Available prn over weekend
[2018-01-13] MEDS: Temazepam 15 MG Capsule PO PRN (23:26)
[2018-01-14] MEDS: Senna/Docusate Sodium 8.6/50 MG Tablet PO SCH ×2 (08:24→21:26)
[2018-01-14] MEDS: predniSONE 20 MG Tablet PO SCH (08:24)
[2018-01-14] MEDS: Budesonide-Formoterol 160/4.5 MCG 6 GM Inhaler INH SCH ×2 (08:24→21:26)
[2018-01-14] MEDS: guaiFENesin 600 MG ER Tablet PO SCH ×2 (08:24→21:26)
--- NOTE | 2018-01-14 11:43 | P.PN ---
Subjective Interval history: Follow-up lung cancer January 13, 2018-patient seen and examined, denies any chest pain or shortness of breath. Currently afebrile. January 14, 2018-patient seen and examined, no acute event overnight and remains stable. Physical Exam Vital signs: Vital Signs 01/13/18 15:00 01/13/18 19:00 01/13/18 20:00 Temperature 98.2 F Pulse Rate 89 99 H Respiratory Rate 20 19 Blood Pressure 125/73 Pulse Oximetry 98 01/13/18 20:53 01/13/18 21:38 01/13/18 23:00 Temperature 98.1 F Pulse Rate 89 94 H 89 Respiratory Rate 20 19 Blood Pressure 124/66 Pulse Oximetry 97 01/13/18 23:29 01/14/18 00:35 01/14/18 03:00 Temperature 98.2 F 98.2 F Pulse Rate 87 84 Respiratory Rate 18 19 18 Blood Pressure 126/75 116/67 Pulse Oximetry 100 98 01/14/18 05:22 01/14/18 07:00 01/14/18 08:00 Temperature 97.9 F Pulse Rate 81 84 Respiratory Rate 20 19 Blood Pressure 111/72 Pulse Oximetry 97 01/14/18 08:59 01/14/18 09:00 01/14/18 09:34 Temperature Pulse Rate 89 82 Respiratory Rate 16 Blood Pressure Pulse Oximetry Intake & Output 01/13/18 01/14/18 01/14/18 18:59 06:59 18:59 Intake Total 1284 / 1284 740 / 740 Output Total 525 / 525 1125 / 1125 Balance 759 / 759 -385 / -385 Weight 80.5 kg Intake: Oral 1284 / 1284 740 / 740 Output: Urine 525 / 525 1125 / 1125 Other: # Voids 2 Date of Last Bowel Movement 01/13/18 01/13/18 01/13/18 # Bowel Movements 1 Narrative: GENERAL: NAD CARDIOVASCULAR: Regular rate and rhythm without murmurs, gallops, or rubs. RESPIRATORY: Decreased breath sounds bilateral, right posterior surgical wound. GASTROINTESTINAL: Abdomen soft, non-tender, nondistended. MUSCULOSKELETAL: No cyanosis, or edema. - Urinary Catheter Management Indwelling Urethral Catheter Cath placed during this visit: yes, but has since been removed by the nurse Reason for continuing: Decision to DC catheter Insertion date: 01/05/18 Insertion time: 22:00 Removal date: 01/09/18 Removal time: 11:00 Straight Cath placed during this visit: yes, but has since been removed by the nurse Reason for continuing: Acute urinary retention Insertion date: 01/05/18 Insertion time: 17:00 Removal date: 01/05/18 Removal time: 17:08 Results - Labs CBC & Chem 7: 01/13/18 05:10 01/12/18 05:42 - Procedures Date of procedure: 01/04/18 Anesthesia: GETA Surgeon: Zaida Serrano MD Operation and Findings: PREOPERATIVE DIAGNOSIS 1. Right Upper lobe Lung Mass 2. Right upper lobe endobronchial obstruction with complete collapse 3. COPD POSTOPERATIVE DIAGNOSIS same PROCEDURES 1. Right posterolateral Muscle Sparing Thoracotomy 2. Right Upper lobectomy 3. Mediastinal Lymph Node Dissection 4. Intercostal Nerve Block SURGEON Zaida Serrano MD Assessment and Plan - Plan 62-year-old man with 1. Right Lung endobronchial Mass status post Right posterolateral Muscle sparing thoracotomy, Right upper lobectomy, Mediastinal lymph node dissection, intercostal nerve block. 01/04/18 Pathology report positive for invasive squamous cell carcinoma and adenocarcinoma of the lung. Per computer technical specialist he will need Chemoradiation therapy in 2-3 weeks. 2. PAD/left Lower extremity revascularization, management as per Vascular surgery on Plavix 75 mg and Aspirin 81 mg daily, anticoagulation as per Cardiothoracic surgery. 3. Chronic Respiratory failure/COPD/Right lower lung collapse Bronchodilator, Mucolytic incentive spirometry,Steroids. 4. Alcohol abuse History of alcohol withdrawal [facility] protocol, No signs of withdrawal. 5. Tobacco abuse: Smoking cessation counseling provided 6. Hypertension controlled. 7. Urinary retention Peres cath placed and Flomax started. 8. Abnormal urinalysis: s/p Zosyn.
[2018-01-14] MEDS: Enoxaparin Inj 30 MG/0.3 ML Syringe SQ SCH (15:30)
[2018-01-15] MEDS: Temazepam 15 MG Capsule PO PRN (02:35)
[2018-01-15] MEDS: Senna/Docusate Sodium 8.6/50 MG Tablet PO SCH ×2 (08:29→20:44)
[2018-01-15] MEDS: predniSONE 20 MG Tablet PO SCH (08:30)
[2018-01-15] MEDS: Budesonide-Formoterol 160/4.5 MCG 6 GM Inhaler INH SCH ×2 (08:33→20:41)
[2018-01-15] MEDS: guaiFENesin 600 MG ER Tablet PO SCH ×2 (12:13→20:44)
--- NOTE | 2018-01-15 12:37 | P.PN ---
Subjective Interval history: Follow-up lung cancer January 13, 2018-patient seen and examined, denies any chest pain or shortness of breath. Currently afebrile. January 14, 2018-patient seen and examined, no acute event overnight and remains stable. January 15, 2018-patient seen and examined, remains stable. Has no complaint. Physical Exam Vital signs: Vital Signs 01/14/18 13:00 01/14/18 14:00 01/14/18 15:00 Temperature Pulse Rate 90 87 109 H Respiratory Rate Blood Pressure Pulse Oximetry 01/14/18 16:00 01/14/18 17:00 01/14/18 18:00 Temperature 97.7 F Pulse Rate 106 H 100 H 99 H Respiratory Rate 19 Blood Pressure 145/73 H Pulse Oximetry 99 01/14/18 19:00 01/14/18 20:00 01/14/18 20:37 Temperature 98.1 F Pulse Rate 96 H 94 H 94 H Respiratory Rate 16 20 Blood Pressure 122/67 Pulse Oximetry 98 01/14/18 21:00 01/14/18 21:26 01/14/18 22:00 Temperature Pulse Rate 96 H 102 H Respiratory Rate 16 Blood Pressure Pulse Oximetry 01/14/18 23:00 01/15/18 00:00 01/15/18 01:00 Temperature 98.1 F Pulse Rate 96 H 102 H 92 H Respiratory Rate 16 Blood Pressure 118/65 Pulse Oximetry 99 01/15/18 02:00 01/15/18 03:00 01/15/18 04:00 Temperature 98.2 F Pulse Rate 92 H 90 91 H Respiratory Rate 16 Blood Pressure 120/73 Pulse Oximetry 99 01/15/18 06:00 01/15/18 09:12 01/15/18 09:20 Temperature Pulse Rate 95 H Respiratory Rate 16 16 Blood Pressure Pulse Oximetry Intake & Output 01/14/18 01/15/18 01/15/18 18:59 06:59 18:59 Intake Total 740 / 740 980 / 980 Output Total 1250 / 1250 200 / 200 Balance -510 / -510 780 / 780 Intake: Oral 740 / 740 980 / 980 Output: Urine 1250 / 1250 200 / 200 Other: # Voids 2 Date of Last Bowel Movement 01/13/18 01/14/18 # Bowel Movements 1 Narrative: GENERAL: NAD CARDIOVASCULAR: Regular rate and rhythm without murmurs, gallops, or rubs. RESPIRATORY: Decreased breath sounds bilateral, right posterior surgical wound. GASTROINTESTINAL: Abdomen soft, non-tender, nondistended. MUSCULOSKELETAL: No cyanosis, or edema. - Urinary Catheter Management Indwelling Urethral Catheter Cath placed during this visit: yes, but has since been removed by the nurse Reason for continuing: Decision to DC catheter Insertion date: 01/05/18 Insertion time: 22:00 Removal date: 01/09/18 Removal time: 11:00 Straight Cath placed during this visit: yes, but has since been removed by the nurse Reason for continuing: Acute urinary retention Insertion date: 01/05/18 Insertion time: 17:00 Removal date: 01/05/18 Removal time: 17:08 Results - Labs CBC & Chem 7: 01/13/18 05:10 01/12/18 05:42 - Procedures Date of procedure: 01/04/18 Anesthesia: GETA Surgeon: Zaida Serrano MD Operation and Findings: PREOPERATIVE DIAGNOSIS 1. Right Upper lobe Lung Mass 2. Right upper lobe endobronchial obstruction with complete collapse 3. COPD POSTOPERATIVE DIAGNOSIS same PROCEDURES 1. Right posterolateral Muscle Sparing Thoracotomy 2. Right Upper lobectomy 3. Mediastinal Lymph Node Dissection 4. Intercostal Nerve Block SURGEON Zaida Serrano MD Assessment and Plan - Plan 62-year-old man with 1. Right Lung endobronchial Mass status post Right posterolateral Muscle sparing thoracotomy, Right upper lobectomy, Mediastinal lymph node dissection, intercostal nerve block. 01/04/18 Pathology report positive for invasive squamous cell carcinoma and adenocarcinoma of the lung. Per guest experience specialist he will need Chemoradiation therapy in 2-3 weeks. 2. PAD/left Lower extremity revascularization, management as per Vascular surgery on Plavix 75 mg and Aspirin 81 mg daily, anticoagulation as per Cardiothoracic surgery. 3. Chronic Respiratory failure/COPD/Right lower lung collapse Bronchodilator, Mucolytic incentive spirometry,Steroids. 4. Alcohol abuse History of alcohol withdrawal [facility] protocol, No signs of withdrawal. 5. Tobacco abuse: Smoking cessation counseling provided 6. Hypertension controlled. 7. Urinary retention Peres cath placed and Flomax started. 8. Abnormal urinalysis: s/p Zosyn. Continue current treatment as of January 15, 2018
[2018-01-15] MEDS: Enoxaparin Inj 30 MG/0.3 ML Syringe SQ SCH (16:40)
[2018-01-16] MEDS: Temazepam 15 MG Capsule PO PRN (00:08)
[2018-01-16] MEDS: predniSONE 20 MG Tablet PO SCH (09:16)
[2018-01-16] MEDS: Senna/Docusate Sodium 8.6/50 MG Tablet PO SCH ×2 (09:17→21:36)
[2018-01-16] MEDS: Budesonide-Formoterol 160/4.5 MCG 6 GM Inhaler INH SCH ×2 (09:17→22:37)
[2018-01-16] MEDS: guaiFENesin 600 MG ER Tablet PO SCH ×2 (09:17→21:36)
--- NOTE | 2018-01-16 10:43 | P.PN ---
Subjective Interval history: Follow-up lung cancer January 13, 2018-patient seen and examined, denies any chest pain or shortness of breath. Currently afebrile. January 14, 2018-patient seen and examined, no acute event overnight and remains stable. January 15, 2018-patient seen and examined, remains stable. Has no complaint. January 16, 2018-patient seen and examined, no change, no complaint, afebrile. Physical Exam Vital signs: Vital Signs 01/15/18 11:00 01/15/18 12:00 01/15/18 13:00 Temperature 98.2 F Pulse Rate 96 H 88 96 H Respiratory Rate 20 Blood Pressure 122/71 Pulse Oximetry 98 01/15/18 13:24 01/15/18 14:00 01/15/18 15:00 Temperature Pulse Rate 92 H 95 H Respiratory Rate 4 L Blood Pressure Pulse Oximetry 01/15/18 16:00 01/15/18 17:00 01/15/18 17:10 Temperature 98.0 F Pulse Rate 92 H 98 H Respiratory Rate 22 18 Blood Pressure 123/70 Pulse Oximetry 97 01/15/18 18:00 01/15/18 19:00 01/15/18 20:00 Temperature 97.9 F Pulse Rate 99 H 90 90 Respiratory Rate Blood Pressure 130/75 Pulse Oximetry 97 01/15/18 20:40 01/15/18 21:49 01/15/18 22:00 Temperature Pulse Rate 93 H 93 H Respiratory Rate 20 18 Blood Pressure Pulse Oximetry 01/16/18 00:00 01/16/18 02:00 01/16/18 03:00 Temperature 97.9 F Pulse Rate 93 H 86 86 Respiratory Rate Blood Pressure 116/62 Pulse Oximetry 98 01/16/18 04:00 01/16/18 05:00 01/16/18 06:00 Temperature 98 F Pulse Rate 92 H 99 H 92 H Respiratory Rate Blood Pressure 103/58 L Pulse Oximetry 99 01/16/18 07:00 01/16/18 08:00 01/16/18 09:00 Temperature 98.0 F Pulse Rate 87 86 93 H Respiratory Rate 18 Blood Pressure 117/71 Pulse Oximetry 96 01/16/18 09:15 01/16/18 10:00 Temperature Pulse Rate 92 H Respiratory Rate 18 Blood Pressure Pulse Oximetry Intake & Output 01/15/18 01/16/18 01/16/18 18:59 06:59 18:59 Intake Total 1320 / 1320 360 / 360 Output Total 700 / 700 700 / 700 Balance 620 / 620 -340 / -340 Intake: Oral 1320 / 1320 360 / 360 Output: Urine 700 / 700 700 / 700 Other: # Voids 3 Date of Last Bowel Movement 01/15/18 01/15/18 01/15/18 # Bowel Movements 1 Narrative: GENERAL: NAD CARDIOVASCULAR: Regular rate and rhythm without murmurs, gallops, or rubs. RESPIRATORY: Decreased breath sounds bilateral, right posterior surgical wound. GASTROINTESTINAL: Abdomen soft, non-tender, nondistended. MUSCULOSKELETAL: No cyanosis, or edema. - Urinary Catheter Management Indwelling Urethral Catheter Cath placed during this visit: yes, but has since been removed by the nurse Reason for continuing: Decision to DC catheter Insertion date: 01/05/18 Insertion time: 22:00 Removal date: 01/09/18 Removal time: 11:00 Straight Cath placed during this visit: yes, but has since been removed by the nurse Reason for continuing: Acute urinary retention Insertion date: 01/05/18 Insertion time: 17:00 Removal date: 01/05/18 Removal time: 17:08 Results - Labs CBC & Chem 7: 01/13/18 05:10 01/12/18 05:42 - Procedures Date of procedure: 01/04/18 Anesthesia: GETA Surgeon: Zaida Serrano MD Operation and Findings: PREOPERATIVE DIAGNOSIS 1. Right Upper lobe Lung Mass 2. Right upper lobe endobronchial obstruction with complete collapse 3. COPD POSTOPERATIVE DIAGNOSIS same PROCEDURES 1. Right posterolateral Muscle Sparing Thoracotomy 2. Right Upper lobectomy 3. Mediastinal Lymph Node Dissection 4. Intercostal Nerve Block SURGEON Zaida Serrano MD Assessment and Plan - Plan 62-year-old man with 1. Right Lung endobronchial Mass status post Right posterolateral Muscle sparing thoracotomy, Right upper lobectomy, Mediastinal lymph node dissection, intercostal nerve block. 01/04/18 Pathology report positive for invasive squamous cell carcinoma and adenocarcinoma of the lung. Per physician coding specialist he will need Chemoradiation therapy in 2-3 weeks. 2. PAD/left Lower extremity revascularization, management as per Vascular surgery on Plavix 75 mg and Aspirin 81 mg daily, anticoagulation as per Cardiothoracic surgery. 3. Chronic Respiratory failure/COPD/Right lower lung collapse Bronchodilator, Mucolytic incentive spirometry,Steroids. 4. Alcohol abuse History of alcohol withdrawal [facility] protocol, No signs of withdrawal. 5. Tobacco abuse: Smoking cessation counseling provided 6. Hypertension controlled. 7. Urinary retention Peres cath placed and Flomax started. 8. Abnormal urinalysis: s/p Zosyn. Continue current treatment as of January 16, 2018
[2018-01-16] MEDS: Enoxaparin Inj 30 MG/0.3 ML Syringe SQ SCH (15:24)
--- NOTE | 2018-01-16 18:19 | P.PNPL ---
Subjective Interval history: 62 YOWM with COPD,RUL endobronchial mass, PAD No Fever No CP Had Rt upper lobectomy Bx sq cell ca with adenoca Physical Exam Vital signs: Vital Signs 01/15/18 19:00 01/15/18 20:00 01/15/18 20:40 Temperature 97.9 F Pulse Rate 90 90 Respiratory Rate 20 Blood Pressure 130/75 Pulse Oximetry 97 01/15/18 21:49 01/15/18 22:00 01/16/18 00:00 Temperature 97.9 F Pulse Rate 93 H 93 H 93 H Respiratory Rate 18 Blood Pressure 116/62 Pulse Oximetry 98 01/16/18 02:00 01/16/18 03:00 01/16/18 04:00 Temperature 98 F Pulse Rate 86 86 92 H Respiratory Rate Blood Pressure 103/58 L Pulse Oximetry 99 01/16/18 05:00 01/16/18 06:00 01/16/18 07:00 Temperature Pulse Rate 99 H 92 H 87 Respiratory Rate Blood Pressure Pulse Oximetry 01/16/18 08:00 01/16/18 09:00 01/16/18 09:15 Temperature 98.0 F Pulse Rate 86 93 H Respiratory Rate 18 18 Blood Pressure 117/71 Pulse Oximetry 96 01/16/18 10:00 01/16/18 11:00 01/16/18 12:00 Temperature 97.9 F Pulse Rate 92 H 98 H 97 H Respiratory Rate 18 Blood Pressure 124/74 Pulse Oximetry 98 01/16/18 13:00 01/16/18 14:00 01/16/18 15:00 Temperature Pulse Rate 95 H 87 88 Respiratory Rate Blood Pressure Pulse Oximetry 01/16/18 16:00 01/16/18 17:00 01/16/18 18:00 Temperature 97.8 F Pulse Rate 98 H 92 H 93 H Respiratory Rate 18 Blood Pressure 117/72 Pulse Oximetry 95 Intake & Output 01/15/18 01/16/18 01/16/18 18:59 06:59 18:59 Intake Total 1320 / 1320 360 / 360 940 / 940 Output Total 700 / 700 700 / 700 Balance 620 / 620 -340 / -340 940 / 940 Intake: Oral 1320 / 1320 360 / 360 940 / 940 Output: Urine 700 / 700 700 / 700 Other: # Voids 3 4 Date of Last Bowel Movement 01/15/18 01/15/18 01/15/18 # Bowel Movements 1 GENERAL: WBWn NAD SKIN: Warm and dry. HEAD: Normocephalic. EYES: No scleral icterus. No injection or drainage. NECK: Supple, trachea midline. No JVD or lymphadenopathy. CARDIOVASCULAR: Regular rate and rhythm without murmurs, gallops, or rubs. RESPIRATORY: Breath sounds equal bilaterally. No accessory muscle use. GASTROINTESTINAL: Abdomen soft, non-tender, nondistended. MUSCULOSKELETAL: No cyanosis, or edema. BACK: Nontender without obvious deformity. No CVA tenderness. - Urinary Catheter Management Indwelling Urethral Catheter Cath placed during this visit: yes, but has since been removed by the nurse Reason for continuing: Decision to DC catheter Insertion date: 01/05/18 Insertion time: 22:00 Removal date: 01/09/18 Removal time: 11:00 Straight Cath placed during this visit: yes, but has since been removed by the nurse Reason for continuing: Acute urinary retention Insertion date: 01/05/18 Insertion time: 17:00 Removal date: 01/05/18 Removal time: 17:08 Assessment and Plan - Plan IMPRESSION: 1. Right lung endobronchial mass, .s/p RULobectomy SQ, cell ca lung and Adenocarcinoma 2. Chronic obstructive pulmonary disease. 3. Peripheral artery disease, status post operative procedure done. 4. Nicotine abuse. 5. History of alcohol abuse. 6. The patient is homeless. PLAN: Aerosol nebs Prednisone 40 mg daily. Supplement 02 plans to start Chemo Stable from Pulm standpoint
[2018-01-17] MEDS: Senna/Docusate Sodium 8.6/50 MG Tablet PO SCH ×2 (08:00→20:16)
[2018-01-17] MEDS: guaiFENesin 600 MG ER Tablet PO SCH ×2 (08:00→20:16)
[2018-01-17] MEDS: predniSONE 20 MG Tablet PO SCH (08:00)
[2018-01-17] MEDS: Budesonide-Formoterol 160/4.5 MCG 6 GM Inhaler INH SCH ×2 (08:00→20:16)
--- NOTE | 2018-01-17 11:05 | P.PN ---
Subjective Interval history: Follow-up lung cancer January 13, 2018-patient seen and examined, denies any chest pain or shortness of breath. Currently afebrile. January 14, 2018-patient seen and examined, no acute event overnight and remains stable. January 15, 2018-patient seen and examined, remains stable. Has no complaint. January 16, 2018-patient seen and examined, no change, no complaint, afebrile. January 17, 2018-patient seen and examined, states yesterday after walking he noticed swelling of the right foot, complaining of throbbing this morning. Physical Exam Vital signs: Vital Signs 01/16/18 12:00 01/16/18 13:00 01/16/18 14:00 Temperature 97.9 F Pulse Rate 97 H 95 H 87 Respiratory Rate 18 Blood Pressure 124/74 Pulse Oximetry 98 01/16/18 15:00 01/16/18 16:00 01/16/18 17:00 Temperature 97.8 F Pulse Rate 88 98 H 92 H Respiratory Rate 18 Blood Pressure 117/72 Pulse Oximetry 95 01/16/18 18:00 01/16/18 19:00 01/16/18 20:00 Temperature 98.2 F Pulse Rate 93 H 87 90 Respiratory Rate 18 Blood Pressure 138/81 Pulse Oximetry 98 01/16/18 21:00 01/17/18 00:00 01/17/18 01:00 Temperature 98.7 F Pulse Rate 89 86 84 Respiratory Rate 16 Blood Pressure 144/80 H Pulse Oximetry 99 01/17/18 02:00 01/17/18 03:00 01/17/18 04:00 Temperature Pulse Rate 81 77 72 Respiratory Rate 16 Blood Pressure 138/72 Pulse Oximetry 95 01/17/18 05:00 01/17/18 06:00 01/17/18 07:00 Temperature Pulse Rate 80 81 82 Respiratory Rate Blood Pressure Pulse Oximetry 01/17/18 08:00 01/17/18 09:00 01/17/18 10:00 Temperature 97.9 F Pulse Rate 82 78 90 Respiratory Rate 16 Blood Pressure 138/79 Pulse Oximetry 98 Intake & Output 01/16/18 01/17/18 01/17/18 18:59 06:59 18:59 Intake Total 940 / 940 Output Total 650 / 650 Balance 940 / 940 -650 / -650 Weight 80.5 kg Intake: Oral 940 / 940 Output: Urine 650 / 650 Other: # Voids 4 Date of Last Bowel Movement 01/15/18 01/15/18 01/16/18 Narrative: GENERAL: NAD CARDIOVASCULAR: Regular rate and rhythm without murmurs, gallops, or rubs. RESPIRATORY: Decreased breath sounds bilateral, right posterior surgical wound. GASTROINTESTINAL: Abdomen soft, non-tender, nondistended. MUSCULOSKELETAL: No cyanosis, or edema. - Urinary Catheter Management Indwelling Urethral Catheter Cath placed during this visit: yes, but has since been removed by the nurse Reason for continuing: Decision to DC catheter Insertion date: 01/05/18 Insertion time: 22:00 Removal date: 01/09/18 Removal time: 11:00 Straight Cath placed during this visit: yes, but has since been removed by the nurse Reason for continuing: Acute urinary retention Insertion date: 01/05/18 Insertion time: 17:00 Removal date: 01/05/18 Removal time: 17:08 Results - Labs CBC & Chem 7: 01/13/18 05:10 01/12/18 05:42 - Procedures Date of procedure: 01/04/18 Anesthesia: GETA Surgeon: Zaida Serrano MD Operation and Findings: PREOPERATIVE DIAGNOSIS 1. Right Upper lobe Lung Mass 2. Right upper lobe endobronchial obstruction with complete collapse 3. COPD POSTOPERATIVE DIAGNOSIS same PROCEDURES 1. Right posterolateral Muscle Sparing Thoracotomy 2. Right Upper lobectomy 3. Mediastinal Lymph Node Dissection 4. Intercostal Nerve Block SURGEON Zaida Serrano MD Assessment and Plan - Plan 62-year-old man with 1. Right Lung endobronchial Mass status post Right posterolateral Muscle sparing thoracotomy, Right upper lobectomy, Mediastinal lymph node dissection, intercostal nerve block. 01/04/18 Pathology report positive for invasive squamous cell carcinoma and adenocarcinoma of the lung. Per customer retention specialist he will need Chemoradiation therapy in 2-3 weeks. 2. PAD/left Lower extremity revascularization, management as per Vascular surgery on Plavix 75 mg and Aspirin 81 mg daily, anticoagulation as per Cardiothoracic surgery. 3. Chronic Respiratory failure/COPD/Right lower lung collapse Bronchodilator, Mucolytic incentive spirometry,Steroids. 4. Alcohol abuse History of alcohol withdrawal [facility] protocol, No signs of withdrawal. 5. Tobacco abuse: Smoking cessation counseling provided 6. Hypertension controlled. 7. Urinary retention Peres cath placed and Flomax started. 8. Abnormal urinalysis: s/p Zosyn. 9. Right foot swollen Continue with conservative treatment however consider Doppler if no improvement
[2018-01-17] MEDS: Enoxaparin Inj 30 MG/0.3 ML Syringe SQ SCH (15:35)
--- NOTE | 2018-01-17 18:31 | P.PNPL ---
Subjective Interval history: 62 YOWM with COPD,RUL endobronchial mass, PAD No Fever No CP Had Rt upper lobectomy Bx sq cell ca with adenoca Mild swelling rt leg, getting better Physical Exam Vital signs: Vital Signs 01/16/18 19:00 01/16/18 20:00 01/16/18 21:00 Temperature 98.2 F Pulse Rate 87 90 89 Respiratory Rate 18 Blood Pressure 138/81 Pulse Oximetry 98 01/17/18 00:00 01/17/18 01:00 01/17/18 02:00 Temperature 98.7 F Pulse Rate 86 84 81 Respiratory Rate 16 Blood Pressure 144/80 H Pulse Oximetry 99 01/17/18 03:00 01/17/18 04:00 01/17/18 05:00 Temperature Pulse Rate 77 72 80 Respiratory Rate 16 Blood Pressure 138/72 Pulse Oximetry 95 01/17/18 06:00 01/17/18 07:00 01/17/18 08:00 Temperature 97.9 F Pulse Rate 81 82 82 Respiratory Rate 16 Blood Pressure 138/79 Pulse Oximetry 98 01/17/18 09:00 01/17/18 10:00 01/17/18 11:00 Temperature Pulse Rate 78 90 93 H Respiratory Rate Blood Pressure Pulse Oximetry 01/17/18 12:00 01/17/18 13:00 01/17/18 14:00 Temperature 98.1 F Pulse Rate 93 H 93 H 96 H Respiratory Rate 18 Blood Pressure 131/78 Pulse Oximetry 98 01/17/18 15:00 01/17/18 16:00 01/17/18 17:00 Temperature 98.2 F Pulse Rate 100 H 100 H 95 H Respiratory Rate 18 Blood Pressure 129/82 Pulse Oximetry 97 01/17/18 18:00 Temperature Pulse Rate 93 H Respiratory Rate Blood Pressure Pulse Oximetry Intake & Output 01/16/18 01/17/18 01/17/18 18:59 06:59 18:59 Intake Total 940 / 940 740 / 740 Output Total 650 / 650 750 / 750 Balance 940 / 940 -650 / -650 -10 / -10 Weight 80.5 kg Intake: Oral 940 / 940 740 / 740 Output: Urine 650 / 650 750 / 750 Other: # Voids 4 Date of Last Bowel Movement 01/15/18 01/15/18 01/17/18 # Bowel Movements 1 GENERAL: WBWN, NAD SKIN: Warm and dry. HEAD: Normocephalic. EYES: No scleral icterus. No injection or drainage. NECK: Supple, trachea midline. No JVD or lymphadenopathy. CARDIOVASCULAR: Regular rate and rhythm without murmurs, gallops, or rubs. RESPIRATORY: Breath sounds equal bilaterally. No accessory muscle use. GASTROINTESTINAL: Abdomen soft, non-tender, nondistended. MUSCULOSKELETAL: No cyanosis, + edema. BACK: Nontender without obvious deformity. No CVA tenderness. - Urinary Catheter Management Indwelling Urethral Catheter Cath placed during this visit: yes, but has since been removed by the nurse Reason for continuing: Decision to DC catheter Insertion date: 01/05/18 Insertion time: 22:00 Removal date: 01/09/18 Removal time: 11:00 Straight Cath placed during this visit: yes, but has since been removed by the nurse Reason for continuing: Acute urinary retention Insertion date: 01/05/18 Insertion time: 17:00 Removal date: 01/05/18 Removal time: 17:08 Assessment and Plan - Plan IMPRESSION: 1. Right lung endobronchial mass, .s/p RULobectomy SQ, cell ca lung and Adenocarcinoma 2. Chronic obstructive pulmonary disease. 3. Peripheral artery disease, status post operative procedure done. 4. Nicotine abuse. 5. History of alcohol abuse. 6. The patient is homeless. PLAN: Aerosol nebs Prednisone 40 mg daily. Supplement 02 plans to start Chemo Stable from Pulm standpoint
[2018-01-17] MEDS: Temazepam 15 MG Capsule PO PRN (23:08)
[2018-01-18] MEDS: Senna/Docusate Sodium 8.6/50 MG Tablet PO SCH ×2 (08:43→20:23)
[2018-01-18] MEDS: predniSONE 20 MG Tablet PO SCH (08:43)
[2018-01-18] MEDS: guaiFENesin 600 MG ER Tablet PO SCH ×2 (08:43→20:23)
[2018-01-18] MEDS: Budesonide-Formoterol 160/4.5 MCG 6 GM Inhaler INH SCH ×2 (08:44→20:23)
--- NOTE | 2018-01-18 11:28 | P.PN ---
Subjective Interval history: Follow-up lung cancer January 13, 2018-patient seen and examined, denies any chest pain or shortness of breath. Currently afebrile. January 14, 2018-patient seen and examined, no acute event overnight and remains stable. January 15, 2018-patient seen and examined, remains stable. Has no complaint. January 16, 2018-patient seen and examined, no change, no complaint, afebrile. January 17, 2018-patient seen and examined, states yesterday after walking he noticed swelling of the right foot, complaining of throbbing this morning. January 18, 2018-patient seen and examined, no chest pain or shortness of breath. Only right lower extremity swelling. Physical Exam Vital signs: Vital Signs 01/17/18 12:00 01/17/18 13:00 01/17/18 14:00 Temperature 98.1 F Pulse Rate 93 H 93 H 96 H Respiratory Rate 18 Blood Pressure 131/78 Pulse Oximetry 98 01/17/18 15:00 01/17/18 16:00 01/17/18 17:00 Temperature 98.2 F Pulse Rate 100 H 100 H 95 H Respiratory Rate 18 Blood Pressure 129/82 Pulse Oximetry 97 01/17/18 18:00 01/17/18 19:00 01/17/18 20:00 Temperature 98.0 F Pulse Rate 93 H 89 90 Respiratory Rate 18 Blood Pressure 144/76 H Pulse Oximetry 96 01/17/18 23:00 01/18/18 00:00 01/18/18 03:00 Temperature 97.6 F Pulse Rate 90 89 87 Respiratory Rate 16 Blood Pressure 140/77 Pulse Oximetry 97 01/18/18 04:00 01/18/18 07:00 01/18/18 07:31 Temperature 98.9 F 96.9 F L Pulse Rate 78 88 90 Respiratory Rate 18 20 Blood Pressure 146/76 H 132/79 Pulse Oximetry 95 96 01/18/18 11:00 Temperature Pulse Rate 104 H Respiratory Rate Blood Pressure Pulse Oximetry Intake & Output 01/17/18 01/18/18 01/18/18 18:59 06:59 18:59 Intake Total 740 / 740 480 / 480 Output Total 750 / 750 650 / 650 Balance -10 / -10 -170 / -170 Weight 88.3 kg Intake: Oral 740 / 740 480 / 480 Output: Urine 750 / 750 650 / 650 Other: Date of Last Bowel Movement 01/17/18 01/17/18 # Bowel Movements 1 - Urinary Catheter Management Indwelling Urethral Catheter Cath placed during this visit: yes, but has since been removed by the nurse Reason for continuing: Decision to DC catheter Insertion date: 01/05/18 Insertion time: 22:00 Removal date: 01/09/18 Removal time: 11:00 Straight Cath placed during this visit: yes, but has since been removed by the nurse Reason for continuing: Acute urinary retention Insertion date: 01/05/18 Insertion time: 17:00 Removal date: 01/05/18 Removal time: 17:08 Results - Labs CBC & Chem 7: 01/13/18 05:10 01/12/18 05:42 - Procedures Date of procedure: 01/04/18 Anesthesia: GETA Surgeon: Zaida Serrano MD Operation and Findings: PREOPERATIVE DIAGNOSIS 1. Right Upper lobe Lung Mass 2. Right upper lobe endobronchial obstruction with complete collapse 3. COPD POSTOPERATIVE DIAGNOSIS same PROCEDURES 1. Right posterolateral Muscle Sparing Thoracotomy 2. Right Upper lobectomy 3. Mediastinal Lymph Node Dissection 4. Intercostal Nerve Block SURGEON Zaida Serrano MD Assessment and Plan - Plan 62-year-old man with 1. Right Lung endobronchial Mass status post Right posterolateral Muscle sparing thoracotomy, Right upper lobectomy, Mediastinal lymph node dissection, intercostal nerve block. 01/04/18 Pathology report positive for invasive squamous cell carcinoma and adenocarcinoma of the lung. Per software support specialist he will need Chemoradiation therapy in 2-3 weeks. 2. PAD/left Lower extremity revascularization, management as per Vascular surgery on Plavix 75 mg and Aspirin 81 mg daily, anticoagulation as per Cardiothoracic surgery. 3. Chronic Respiratory failure/COPD/Right lower lung collapse Bronchodilator, Mucolytic incentive spirometry,Steroids. 4. Alcohol abuse History of alcohol withdrawal [facility] protocol, No signs of withdrawal. 5. Tobacco abuse: Smoking cessation counseling provided 6. Hypertension controlled. 7. Urinary retention Peres cath placed and Flomax started. 8. Abnormal urinalysis: s/p Zosyn. 9. Right foot swollen Continue with conservative treatment however consider Doppler if no improvement Consul vascular surgery as needed as patient had revascularization performed
[2018-01-18] MEDS: Enoxaparin Inj 30 MG/0.3 ML Syringe SQ SCH (15:19)
--- NOTE | 2018-01-18 18:44 | P.PNPL ---
Subjective Interval history: 62 YOWM with COPD,RUL endobronchial mass, PAD No Fever No CP Bx sq cell ca with adenocarcinoma Mild swelling rt leg, getting better Physical Exam Vital signs: Vital Signs 01/17/18 19:00 01/17/18 20:00 01/17/18 23:00 Temperature 98.0 F Pulse Rate 89 90 90 Respiratory Rate 18 Blood Pressure 144/76 H Pulse Oximetry 96 01/18/18 00:00 01/18/18 03:00 01/18/18 04:00 Temperature 97.6 F 98.9 F Pulse Rate 89 87 78 Respiratory Rate 16 18 Blood Pressure 140/77 146/76 H Pulse Oximetry 97 95 01/18/18 07:00 01/18/18 07:31 01/18/18 11:00 Temperature 96.9 F L Pulse Rate 88 90 104 H Respiratory Rate 20 Blood Pressure 132/79 Pulse Oximetry 96 01/18/18 12:00 01/18/18 15:00 01/18/18 15:22 Temperature 97.2 F L 97.6 F Pulse Rate 100 H 91 H 98 H Respiratory Rate 22 22 Blood Pressure 120/69 135/74 Pulse Oximetry 98 96 01/18/18 15:42 Temperature Pulse Rate 91 H Respiratory Rate 16 Blood Pressure Pulse Oximetry Intake & Output 01/17/18 01/18/18 01/18/18 18:59 06:59 18:59 Intake Total 740 / 740 480 / 480 1340 / 1340 Output Total 750 / 750 650 / 650 1180 / 1180 Balance -10 / -10 -170 / -170 160 / 160 Weight 88.3 kg Intake: Oral 740 / 740 480 / 480 1340 / 1340 Output: Urine 750 / 750 650 / 650 1180 / 1180 Other: Date of Last Bowel Movement 01/17/18 01/18/18 # Bowel Movements 1 1 GENERAL: WBWN, NAD SKIN: Warm and dry. HEAD: Normocephalic. EYES: No scleral icterus. No injection or drainage. NECK: Supple, trachea midline. No JVD or lymphadenopathy. CARDIOVASCULAR: Regular rate and rhythm without murmurs, gallops, or rubs. RESPIRATORY: Breath sounds equal bilaterally. No accessory muscle use. GASTROINTESTINAL: Abdomen soft, non-tender, nondistended. MUSCULOSKELETAL: No cyanosis, + edema. BACK: Nontender without obvious deformity. No CVA tenderness. - Urinary Catheter Management Indwelling Urethral Catheter Cath placed during this visit: yes, but has since been removed by the nurse Reason for continuing: Decision to DC catheter Insertion date: 01/05/18 Insertion time: 22:00 Removal date: 01/09/18 Removal time: 11:00 Straight Cath placed during this visit: yes, but has since been removed by the nurse Reason for continuing: Acute urinary retention Insertion date: 01/05/18 Insertion time: 17:00 Removal date: 01/05/18 Removal time: 17:08 Assessment and Plan - Plan IMPRESSION: 1. Right lung endobronchial mass, .s/p RULobectomy SQ, cell ca lung and Adenocarcinoma 2. Chronic obstructive pulmonary disease. 3. Peripheral artery disease, status post operative procedure done. 4. Nicotine abuse. 5. History of alcohol abuse. 6. The patient is homeless. PLAN: Aerosol nebs Prednisone 40 mg daily. Supplement 02 plans to start Chemo Stable from Pulm standpoint Elevate feet when in the bed.
[2018-01-18] MEDS: Temazepam 15 MG Capsule PO PRN (23:22)
[2018-01-19] MEDS: Senna/Docusate Sodium 8.6/50 MG Tablet PO SCH ×2 (08:31→22:47)
[2018-01-19] MEDS: predniSONE 20 MG Tablet PO SCH (08:31)
[2018-01-19] MEDS: Budesonide-Formoterol 160/4.5 MCG 6 GM Inhaler INH SCH ×2 (08:32→22:48)
[2018-01-19] MEDS: guaiFENesin 600 MG ER Tablet PO SCH ×2 (08:32→22:48)
--- NOTE | 2018-01-19 10:04 | P.PNVS ---
Subjective Subjective/Hospital Course: 62/M s/p R EIA atherectomy/[facility], [facility]/stent Pt sitting in chair alert in NAD Pt reported R LE ankle to foot swelling Pt denied claudication or rest pain B LE warm w/ motor intact Palpable distal pulses noted (2+) Objective Vital Signs / I&O: Vital Signs 01/18/18 11:00 01/18/18 12:00 01/18/18 15:00 Temperature 97.2 F L Pulse Rate 104 H 100 H 91 H Respiratory Rate 22 Blood Pressure 120/69 Pulse Oximetry 98 01/18/18 15:22 01/18/18 15:42 01/18/18 19:00 Temperature 97.6 F Pulse Rate 98 H 91 H 95 H Respiratory Rate 22 16 Blood Pressure 135/74 Pulse Oximetry 96 01/18/18 20:00 01/18/18 23:00 01/19/18 03:00 Temperature 97.5 F L 98 F 98.2 F Pulse Rate 95 H 87 94 H Respiratory Rate 18 16 18 Blood Pressure 152/75 H 141/84 H 133/71 Pulse Oximetry 96 97 98 01/19/18 07:00 01/19/18 07:40 01/19/18 08:00 Temperature 98 F Pulse Rate 82 83 78 Respiratory Rate 17 Blood Pressure 130/79 Pulse Oximetry 96 01/19/18 09:38 01/19/18 09:40 Temperature Pulse Rate 97 H Respiratory Rate 17 Blood Pressure Pulse Oximetry Intake & Output 01/18/18 01/19/18 01/19/18 18:59 06:59 18:59 Intake Total 1340 / 1340 360 / 360 Output Total 1180 / 1180 1250 / 1250 Balance 160 / 160 -890 / -890 Weight 89.5 kg Intake: Oral 1340 / 1340 360 / 360 Output: Urine 1180 / 1180 1250 / 1250 Other: Date of Last Bowel Movement 01/18/18 01/19/18 01/18/18 # Bowel Movements 1 1 Physical Exam: GENERAL: 62/M A&OX3/ NAD SKIN: B LE Warm and dry L groin soft w/o hematoma or swelling CARDIOVASCULAR: RRR w/o M/G/R RESPIRATORY: BS equal clear/No accessory muscle use GASTROINTESTINAL: Abdomen S/NT MUSCULOSKELETAL: No cyanosis, Mild R foot edema (1+) pitting edema Palpable R/L DP/PT (2+) R>L B LE motor intact Assessment and Plan - Assessment (1) Claudication in peripheral vascular disease Code(s): I73.9 - Peripheral vascular disease, unspecified Status: Acute - Plan 62/M s/p R LE revascularization Pt doing well w/o claudication or rest pain Pt with sufficient R LE perfusion- Palpable distal pulses noted Pt with expected mild post operative swelling to R foot Plan Discussed post operative swelling w/ pt Continue PT/OOB/Ambulation Out pt f/u arranged Toshia Trivedi NP [facility] [phone] Discharge Planning: anytime after lung mass w/u
--- NOTE | 2018-01-19 11:46 | P.PN ---
Subjective Interval history: Follow-up lung cancer January 13, 2018-patient seen and examined, denies any chest pain or shortness of breath. Currently afebrile. January 14, 2018-patient seen and examined, no acute event overnight and remains stable. January 15, 2018-patient seen and examined, remains stable. Has no complaint. January 16, 2018-patient seen and examined, no change, no complaint, afebrile. January 17, 2018-patient seen and examined, states yesterday after walking he noticed swelling of the right foot, complaining of throbbing this morning. January 18, 2018-patient seen and examined, no chest pain or shortness of breath. Only right lower extremity swelling. January 19, 2018-patient seen and examined, reported improvement of right lower extremity swelling. Case was discussed this a.m. with Dr. Locke, vascular surgery Physical Exam Vital signs: Vital Signs 01/18/18 12:00 01/18/18 15:00 01/18/18 15:22 Temperature 97.2 F L 97.6 F Pulse Rate 100 H 91 H 98 H Respiratory Rate 22 22 Blood Pressure 120/69 135/74 Pulse Oximetry 98 96 01/18/18 15:42 01/18/18 19:00 01/18/18 20:00 Temperature 97.5 F L Pulse Rate 91 H 95 H 95 H Respiratory Rate 16 18 Blood Pressure 152/75 H Pulse Oximetry 96 01/18/18 23:00 01/19/18 03:00 01/19/18 07:00 Temperature 98 F 98.2 F Pulse Rate 87 94 H 82 Respiratory Rate 16 18 Blood Pressure 141/84 H 133/71 Pulse Oximetry 97 98 01/19/18 07:40 01/19/18 08:00 01/19/18 09:38 Temperature 98 F Pulse Rate 83 78 97 H Respiratory Rate 17 Blood Pressure 130/79 Pulse Oximetry 96 01/19/18 09:40 01/19/18 10:00 Temperature Pulse Rate 97 H Respiratory Rate 17 Blood Pressure Pulse Oximetry Intake & Output 01/18/18 01/19/18 01/19/18 18:59 06:59 18:59 Intake Total 1340 / 1340 360 / 360 Output Total 1180 / 1180 1250 / 1250 Balance 160 / 160 -890 / -890 Weight 89.5 kg Intake: Oral 1340 / 1340 360 / 360 Output: Urine 1180 / 1180 1250 / 1250 Other: Date of Last Bowel Movement 01/18/18 01/19/18 01/18/18 # Bowel Movements 1 1 - Urinary Catheter Management Indwelling Urethral Catheter Cath placed during this visit: yes, but has since been removed by the nurse Reason for continuing: Decision to DC catheter Insertion date: 01/05/18 Insertion time: 22:00 Removal date: 01/09/18 Removal time: 11:00 Straight Cath placed during this visit: yes, but has since been removed by the nurse Reason for continuing: Acute urinary retention Insertion date: 01/05/18 Insertion time: 17:00 Removal date: 01/05/18 Removal time: 17:08 Results - Labs CBC & Chem 7: 01/13/18 05:10 01/12/18 05:42 - Procedures Date of procedure: 01/04/18 Anesthesia: GETA Surgeon: Zaida Serrano MD Operation and Findings: PREOPERATIVE DIAGNOSIS 1. Right Upper lobe Lung Mass 2. Right upper lobe endobronchial obstruction with complete collapse 3. COPD POSTOPERATIVE DIAGNOSIS same PROCEDURES 1. Right posterolateral Muscle Sparing Thoracotomy 2. Right Upper lobectomy 3. Mediastinal Lymph Node Dissection 4. Intercostal Nerve Block SURGEON Zaida Serrano MD Assessment and Plan - Plan 62-year-old man with 1. Right Lung endobronchial Mass status post Right posterolateral Muscle sparing thoracotomy, Right upper lobectomy, Mediastinal lymph node dissection, intercostal nerve block. 01/04/18 Pathology report positive for invasive squamous cell carcinoma and adenocarcinoma of the lung. Per flight security specialist he will need Chemoradiation therapy in 2-3 weeks. 2. PAD/left Lower extremity revascularization, management as per Vascular surgery on Plavix 75 mg and Aspirin 81 mg daily, anticoagulation as per Cardiothoracic surgery. 3. Chronic Respiratory failure/COPD/Right lower lung collapse Bronchodilator, Mucolytic incentive spirometry,Steroids. 4. Alcohol abuse History of alcohol withdrawal [facility] protocol, No signs of withdrawal. 5. Tobacco abuse: Smoking cessation counseling provided 6. Hypertension controlled. 7. Urinary retention Peres cath placed and Flomax started. 8. Abnormal urinalysis: s/p Zosyn. 9. Right foot swollen-improving Continue with conservative treatment Case discussed this a.m. with Dr. locke of vascular surgery
[2018-01-19] MEDS: Enoxaparin Inj 30 MG/0.3 ML Syringe SQ SCH (15:00)
--- NOTE | 2018-01-19 15:36 | P.PNPL ---
Subjective Interval history: 62 YOWM with COPD,RUL endobronchial mass, PAD No Fever No CP Bx sq cell ca with adenocarcinoma Mild swelling rt leg, getting better Seen by Vascular surgery. Physical Exam Vital signs: Vital Signs 01/18/18 15:42 01/18/18 19:00 01/18/18 20:00 Temperature 97.5 F L Pulse Rate 91 H 95 H 95 H Respiratory Rate 16 18 Blood Pressure 152/75 H Pulse Oximetry 96 01/18/18 23:00 01/19/18 03:00 01/19/18 07:00 Temperature 98 F 98.2 F Pulse Rate 87 94 H 82 Respiratory Rate 16 18 Blood Pressure 141/84 H 133/71 Pulse Oximetry 97 98 01/19/18 07:40 01/19/18 08:00 01/19/18 09:38 Temperature 98 F Pulse Rate 83 78 97 H Respiratory Rate 17 Blood Pressure 130/79 Pulse Oximetry 96 01/19/18 09:40 01/19/18 10:00 01/19/18 11:00 Temperature 98 F Pulse Rate 97 H 98 H Respiratory Rate 17 18 Blood Pressure 127/73 Pulse Oximetry 98 01/19/18 13:11 01/19/18 15:00 Temperature Pulse Rate 108 H Respiratory Rate 17 Blood Pressure Pulse Oximetry Intake & Output 01/18/18 01/19/18 01/19/18 18:59 06:59 18:59 Intake Total 1340 / 1340 360 / 360 Output Total 1180 / 1180 1250 / 1250 Balance 160 / 160 -890 / -890 Weight 89.5 kg Intake: Oral 1340 / 1340 360 / 360 Output: Urine 1180 / 1180 1250 / 1250 Other: Date of Last Bowel Movement 01/18/18 01/19/18 01/18/18 # Bowel Movements 1 1 GENERAL: WBWN, NAD SKIN: Warm and dry. HEAD: Normocephalic. EYES: No scleral icterus. No injection or drainage. NECK: Supple, trachea midline. No JVD or lymphadenopathy. CARDIOVASCULAR: Regular rate and rhythm without murmurs, gallops, or rubs. RESPIRATORY: Breath sounds equal bilaterally. No accessory muscle use. GASTROINTESTINAL: Abdomen soft, non-tender, nondistended. MUSCULOSKELETAL: No cyanosis, or edema. BACK: Nontender without obvious deformity. No CVA tenderness. - Urinary Catheter Management Indwelling Urethral Catheter Cath placed during this visit: yes, but has since been removed by the nurse Reason for continuing: Decision to DC catheter Insertion date: 01/05/18 Insertion time: 22:00 Removal date: 01/09/18 Removal time: 11:00 Straight Cath placed during this visit: yes, but has since been removed by the nurse Reason for continuing: Acute urinary retention Insertion date: 01/05/18 Insertion time: 17:00 Removal date: 01/05/18 Removal time: 17:08 Assessment and Plan - Plan IMPRESSION: 1. Right lung endobronchial mass, .s/p RULobectomy SQ, cell ca lung and Adenocarcinoma 2. Chronic obstructive pulmonary disease. 3. Peripheral artery disease, status post operative procedure done. 4. Nicotine abuse. 5. History of alcohol abuse. 6. The patient is homeless. PLAN: Aerosol nebs Prednisone 40 mg daily. Supplement 02 plans to start Chemo Stable from Pulm standpoint
[2018-01-19] MEDS: Temazepam 15 MG Capsule PO PRN (22:48)
[2018-01-20] MEDS: predniSONE 20 MG Tablet PO SCH (08:29)
[2018-01-20] MEDS: Senna/Docusate Sodium 8.6/50 MG Tablet PO SCH ×2 (08:30→21:22)
[2018-01-20] MEDS: guaiFENesin 600 MG ER Tablet PO SCH ×2 (08:30→21:21)
[2018-01-20] MEDS: Budesonide-Formoterol 160/4.5 MCG 6 GM Inhaler INH SCH ×2 (08:31→21:23)
--- NOTE | 2018-01-20 10:39 | P.PN ---
Subjective Interval history: Follow-up lung cancer January 13, 2018-patient seen and examined, denies any chest pain or shortness of breath. Currently afebrile. January 14, 2018-patient seen and examined, no acute event overnight and remains stable. January 15, 2018-patient seen and examined, remains stable. Has no complaint. January 16, 2018-patient seen and examined, no change, no complaint, afebrile. January 17, 2018-patient seen and examined, states yesterday after walking he noticed swelling of the right foot, complaining of throbbing this morning. January 18, 2018-patient seen and examined, no chest pain or shortness of breath. Only right lower extremity swelling. January 19, 2018-patient seen and examined, reported improvement of right lower extremity swelling. Case was discussed this a.m. with Dr. Locke, vascular surgery January 20, 2018-patient seen and examined, stable, no issues this morning. Afebrile Physical Exam Vital signs: Vital Signs 01/19/18 11:00 01/19/18 13:11 01/19/18 15:00 Temperature 98 F 97.8 F Pulse Rate 98 H 106 H Respiratory Rate 18 17 19 Blood Pressure 127/73 140/72 Pulse Oximetry 98 98 01/19/18 15:45 01/19/18 16:00 01/19/18 16:06 Temperature Pulse Rate 108 H 106 H Respiratory Rate 19 18 Blood Pressure Pulse Oximetry 01/19/18 18:00 01/19/18 19:00 01/19/18 19:30 Temperature 97.8 F Pulse Rate 103 H 104 H Respiratory Rate 20 16 Blood Pressure 143/75 H Pulse Oximetry 96 01/19/18 20:31 01/19/18 23:00 01/20/18 00:00 Temperature Pulse Rate 103 H 95 H 96 H Respiratory Rate 18 Blood Pressure 144/73 H Pulse Oximetry 97 01/20/18 00:15 01/20/18 03:00 01/20/18 07:00 Temperature 97.7 F Pulse Rate 94 H 79 Respiratory Rate 16 16 Blood Pressure 133/74 Pulse Oximetry 97 01/20/18 08:00 01/20/18 09:00 01/20/18 09:54 Temperature 97.2 F L Pulse Rate 80 101 H 92 H Respiratory Rate 16 Blood Pressure 127/80 Pulse Oximetry 98 Intake & Output 01/19/18 01/20/18 01/20/18 18:59 06:59 18:59 Intake Total 1050 / 1050 720 / 720 Output Total 1050 / 1050 775 / 775 Balance 0 / 0 -55 / -55 Weight 91 kg Intake: Oral 1050 / 1050 720 / 720 Output: Urine 1050 / 1050 775 / 775 Other: Date of Last Bowel Movement 01/18/18 01/19/18 01/19/18 Narrative: GENERAL: NAD CARDIOVASCULAR: Regular rate and rhythm without murmurs, gallops, or rubs. RESPIRATORY: Decreased breath sounds bilateral, right posterior surgical wound. GASTROINTESTINAL: Abdomen soft, non-tender, nondistended. MUSCULOSKELETAL: No cyanosis, or edema. - Urinary Catheter Management Indwelling Urethral Catheter Cath placed during this visit: yes, but has since been removed by the nurse Reason for continuing: Decision to DC catheter Insertion date: 01/05/18 Insertion time: 22:00 Removal date: 01/09/18 Removal time: 11:00 Straight Cath placed during this visit: yes, but has since been removed by the nurse Reason for continuing: Acute urinary retention Insertion date: 01/05/18 Insertion time: 17:00 Removal date: 01/05/18 Removal time: 17:08 Results - Labs CBC & Chem 7: 01/13/18 05:10 01/12/18 05:42 - Procedures Date of procedure: 01/04/18 Anesthesia: GETA Surgeon: Zaida Serrano MD Operation and Findings: PREOPERATIVE DIAGNOSIS 1. Right Upper lobe Lung Mass 2. Right upper lobe endobronchial obstruction with complete collapse 3. COPD POSTOPERATIVE DIAGNOSIS same PROCEDURES 1. Right posterolateral Muscle Sparing Thoracotomy 2. Right Upper lobectomy 3. Mediastinal Lymph Node Dissection 4. Intercostal Nerve Block SURGEON Zaida Serrano MD Assessment and Plan - Plan 62-year-old man with 1. Right Lung endobronchial Mass status post Right posterolateral Muscle sparing thoracotomy, Right upper lobectomy, Mediastinal lymph node dissection, intercostal nerve block. 01/04/18 Pathology report positive for invasive squamous cell carcinoma and adenocarcinoma of the lung. Per denial resolution specialist he will need Chemoradiation therapy in 2-3 weeks. 2. PAD/left Lower extremity revascularization, management as per Vascular surgery on Plavix 75 mg and Aspirin 81 mg daily, anticoagulation as per Cardiothoracic surgery. 3. Chronic Respiratory failure/COPD/Right lower lung collapse Bronchodilator, Mucolytic incentive spirometry,Steroids. 4. Alcohol abuse History of alcohol withdrawal [facility] protocol, No signs of withdrawal. 5. Tobacco abuse: Smoking cessation counseling provided 6. Hypertension controlled. 7. Urinary retention Peres cath placed and Flomax started. 8. Abnormal urinalysis: s/p Zosyn. 9. Right foot swollen-improving Continue with conservative treatment Vascular surgery following
[2018-01-20] MEDS: Enoxaparin Inj 30 MG/0.3 ML Syringe SQ SCH (15:09)
--- NOTE | 2018-01-20 17:35 | P.PNPL ---
Subjective Interval history: 62 YOWM with COPD,RUL endobronchial mass, PAD No Fever No CP Bx sq cell ca with adenocarcinoma Mild swelling rt leg, getting better no new complaint Physical Exam Vital signs: Vital Signs 01/19/18 18:00 01/19/18 19:00 01/19/18 19:30 Temperature 97.8 F Pulse Rate 103 H 104 H Respiratory Rate 20 16 Blood Pressure 143/75 H Pulse Oximetry 96 01/19/18 20:31 01/19/18 23:00 01/20/18 00:00 Temperature Pulse Rate 103 H 95 H 96 H Respiratory Rate 18 Blood Pressure 144/73 H Pulse Oximetry 97 01/20/18 00:15 01/20/18 03:00 01/20/18 07:00 Temperature 97.7 F Pulse Rate 94 H 79 Respiratory Rate 16 16 Blood Pressure 133/74 Pulse Oximetry 97 01/20/18 08:00 01/20/18 09:00 01/20/18 09:54 Temperature 97.2 F L Pulse Rate 80 101 H 92 H Respiratory Rate 16 Blood Pressure 127/80 Pulse Oximetry 98 01/20/18 11:00 01/20/18 11:35 01/20/18 11:56 Temperature 97.9 F Pulse Rate 95 H 85 103 H Respiratory Rate 16 16 Blood Pressure 145/75 H Pulse Oximetry 95 01/20/18 11:57 01/20/18 13:00 01/20/18 14:00 Temperature Pulse Rate 96 H 94 H 90 Respiratory Rate Blood Pressure Pulse Oximetry 01/20/18 15:00 01/20/18 16:00 01/20/18 17:00 Temperature 98.2 F Pulse Rate 66 88 85 Respiratory Rate 16 Blood Pressure 130/78 Pulse Oximetry 98 01/20/18 17:22 01/20/18 17:29 Temperature Pulse Rate 95 H Respiratory Rate 16 Blood Pressure Pulse Oximetry Intake & Output 01/19/18 01/20/18 01/20/18 18:59 06:59 18:59 Intake Total 1050 / 1050 720 / 720 1020 / 1020 Output Total 1050 / 1050 775 / 775 850 / 850 Balance 0 / 0 -55 / -55 170 / 170 Weight 91 kg Intake: Oral 1050 / 1050 720 / 720 1020 / 1020 Output: Urine 1050 / 1050 775 / 775 850 / 850 Other: Date of Last Bowel Movement 01/18/18 01/19/18 01/20/18 # Bowel Movements 1 GENERAL: WBWN, NAD SKIN: Warm and dry. HEAD: Normocephalic. EYES: No scleral icterus. No injection or drainage. NECK: Supple, trachea midline. No JVD or lymphadenopathy. CARDIOVASCULAR: Regular rate and rhythm without murmurs, gallops, or rubs. RESPIRATORY: Breath sounds equal bilaterally. No accessory muscle use. GASTROINTESTINAL: Abdomen soft, non-tender, nondistended. MUSCULOSKELETAL: No cyanosis, or edema. BACK: Nontender without obvious deformity. No CVA tenderness. - Urinary Catheter Management Indwelling Urethral Catheter Cath placed during this visit: yes, but has since been removed by the nurse Reason for continuing: Decision to DC catheter Insertion date: 01/05/18 Insertion time: 22:00 Removal date: 01/09/18 Removal time: 11:00 Straight Cath placed during this visit: yes, but has since been removed by the nurse Reason for continuing: Acute urinary retention Insertion date: 01/05/18 Insertion time: 17:00 Removal date: 01/05/18 Removal time: 17:08 Assessment and Plan - Plan IMPRESSION: 1. Right lung endobronchial mass, .s/p RULobectomy SQ, cell ca lung and Adenocarcinoma 2. Chronic obstructive pulmonary disease. 3. Peripheral artery disease, status post operative procedure done. 4. Nicotine abuse. 5. History of alcohol abuse. 6. The patient is homeless. PLAN: Aerosol nebs Prednisone 40 mg daily. Supplement 02 plans to start Chemo Stable from Pulm standpoint. Available prn over weekend.
[2018-01-20] MEDS: Temazepam 15 MG Capsule PO PRN (21:23)
[2018-01-21] MEDS: Senna/Docusate Sodium 8.6/50 MG Tablet PO SCH ×2 (08:04→20:24)
[2018-01-21] MEDS: predniSONE 20 MG Tablet PO SCH (08:04)
[2018-01-21] MEDS: guaiFENesin 600 MG ER Tablet PO SCH ×2 (08:04→20:24)
[2018-01-21] MEDS: Budesonide-Formoterol 160/4.5 MCG 6 GM Inhaler INH SCH ×2 (08:05→20:25)
--- NOTE | 2018-01-21 12:04 | P.PN ---
Subjective Interval history: Follow-up lung cancer January 20, 2018-patient seen and examined, stable, no issues this morning. Afebrile January 21, 2018-patient seen and examined, reports some mild right lower extremity swelling otherwise stable denies any pain. Physical Exam Vital signs: Vital Signs 01/20/18 13:00 01/20/18 14:00 01/20/18 15:00 Temperature Pulse Rate 94 H 90 66 Respiratory Rate Blood Pressure Pulse Oximetry 01/20/18 16:00 01/20/18 17:00 01/20/18 17:22 Temperature 98.2 F Pulse Rate 88 85 Respiratory Rate 16 16 Blood Pressure 130/78 Pulse Oximetry 98 01/20/18 17:29 01/20/18 19:00 01/20/18 19:27 Temperature Pulse Rate 95 H 87 87 Respiratory Rate 16 Blood Pressure Pulse Oximetry 01/20/18 20:00 01/20/18 21:00 01/20/18 21:22 Temperature 97.7 F Pulse Rate 88 96 H Respiratory Rate 20 16 Blood Pressure 139/73 Pulse Oximetry 97 01/20/18 22:00 01/20/18 22:27 01/20/18 23:00 Temperature Pulse Rate 90 96 H Respiratory Rate 16 Blood Pressure Pulse Oximetry 01/21/18 00:00 01/21/18 01:00 01/21/18 01:34 Temperature 98.2 F Pulse Rate 82 78 Respiratory Rate 18 18 Blood Pressure 126/75 Pulse Oximetry 98 01/21/18 02:00 01/21/18 03:00 01/21/18 04:00 Temperature 97.8 F Pulse Rate 82 88 87 Respiratory Rate 16 Blood Pressure 119/75 Pulse Oximetry 87 L 01/21/18 05:00 01/21/18 05:50 01/21/18 07:00 Temperature Pulse Rate 83 95 H 78 Respiratory Rate Blood Pressure Pulse Oximetry 01/21/18 08:00 01/21/18 11:51 Temperature 98.1 F Pulse Rate 81 81 Respiratory Rate 18 16 Blood Pressure 137/79 Pulse Oximetry 98 Intake & Output 01/20/18 01/21/18 01/21/18 18:59 06:59 18:59 Intake Total 1020 / 1020 600 / 600 Output Total 850 / 850 825 / 825 Balance 170 / 170 -225 / -225 Weight 91 kg Intake: Oral 1020 / 1020 600 / 600 Output: Urine 850 / 850 825 / 825 Other: Date of Last Bowel Movement 01/20/18 01/20/18 01/20/18 # Bowel Movements 1 1 Narrative: GENERAL: NAD CARDIOVASCULAR: Regular rate and rhythm without murmurs, gallops, or rubs. RESPIRATORY: Decreased breath sounds bilateral, right posterior surgical wound. GASTROINTESTINAL: Abdomen soft, non-tender, nondistended. MUSCULOSKELETAL: No cyanosis, or edema. - Urinary Catheter Management Indwelling Urethral Catheter Cath placed during this visit: yes, but has since been removed by the nurse Reason for continuing: Decision to DC catheter Insertion date: 01/05/18 Insertion time: 22:00 Removal date: 01/09/18 Removal time: 11:00 Straight Cath placed during this visit: yes, but has since been removed by the nurse Reason for continuing: Acute urinary retention Insertion date: 01/05/18 Insertion time: 17:00 Removal date: 01/05/18 Removal time: 17:08 Results - Labs CBC & Chem 7: 01/13/18 05:10 01/12/18 05:42 - Procedures Date of procedure: 01/04/18 Anesthesia: GETA Surgeon: Zaida Serrano MD Operation and Findings: PREOPERATIVE DIAGNOSIS 1. Right Upper lobe Lung Mass 2. Right upper lobe endobronchial obstruction with complete collapse 3. COPD POSTOPERATIVE DIAGNOSIS same PROCEDURES 1. Right posterolateral Muscle Sparing Thoracotomy 2. Right Upper lobectomy 3. Mediastinal Lymph Node Dissection 4. Intercostal Nerve Block SURGEON Zaida Serrano MD Assessment and Plan - Plan 62-year-old man with 1. Right Lung endobronchial Mass status post Right posterolateral Muscle sparing thoracotomy, Right upper lobectomy, Mediastinal lymph node dissection, intercostal nerve block. 01/04/18 Pathology report positive for invasive squamous cell carcinoma and adenocarcinoma of the lung. Per certified coding specialist he will need Chemoradiation therapy in 2-3 weeks. 2. PAD/left Lower extremity revascularization, management as per Vascular surgery Continue Plavix 75 mg and Aspirin 81 mg daily, anticoagulation as per Cardiothoracic surgery. 3. Chronic Respiratory failure/COPD/Right lower lung collapse Bronchodilator, Mucolytic incentive spirometry,Steroids. 4. Alcohol abuse History of alcohol withdrawal [facility] protocol, No signs of withdrawal. 5. Tobacco abuse: Smoking cessation counseling provided 6. Hypertension controlled. 7. Urinary retention Peres cath placed and Flomax started. 8. Abnormal urinalysis: s/p Zosyn. 9. Right foot swollen-improving Continue with conservative treatment Vascular surgery following
[2018-01-21] MEDS: Enoxaparin Inj 30 MG/0.3 ML Syringe SQ SCH (16:05)
[2018-01-21] MEDS: Temazepam 15 MG Capsule PO PRN (22:01)
[2018-01-22] MEDS: guaiFENesin 600 MG ER Tablet PO SCH ×2 (08:02→21:18)
[2018-01-22] MEDS: predniSONE 20 MG Tablet PO SCH (08:02)
[2018-01-22] MEDS: Senna/Docusate Sodium 8.6/50 MG Tablet PO SCH ×2 (08:03→21:18)
[2018-01-22] MEDS: Budesonide-Formoterol 160/4.5 MCG 6 GM Inhaler INH SCH ×2 (08:05→21:18)
--- NOTE | 2018-01-22 10:48 | P.PN ---
Subjective Interval history: Follow-up lung cancer January 20, 2018-patient seen and examined, stable, no issues this morning. Afebrile January 21, 2018-patient seen and examined, reports some mild right lower extremity swelling otherwise stable denies any pain. January 22, 2018-patient seen and examined, no change, stable, denies any shortness of breath. Physical Exam Vital signs: Vital Signs 01/21/18 11:00 01/21/18 11:51 01/21/18 12:00 Temperature 98 F Pulse Rate 96 H 81 94 H Respiratory Rate 16 18 Blood Pressure 139/82 Pulse Oximetry 97 01/21/18 13:00 01/21/18 14:00 01/21/18 15:00 Temperature Pulse Rate 98 H 99 H 99 H Respiratory Rate Blood Pressure Pulse Oximetry 01/21/18 16:00 01/21/18 17:00 01/21/18 18:00 Temperature 98.2 F Pulse Rate 97 H 104 H 108 H Respiratory Rate 18 Blood Pressure 140/73 Pulse Oximetry 96 01/21/18 19:00 01/21/18 20:00 01/21/18 21:00 Temperature 97.9 F Pulse Rate 101 H 84 88 Respiratory Rate 20 Blood Pressure 128/79 Pulse Oximetry 96 01/21/18 22:00 01/21/18 23:00 01/21/18 23:30 Temperature 97.6 F Pulse Rate 87 89 90 Respiratory Rate 22 Blood Pressure 141/81 H Pulse Oximetry 97 01/22/18 00:00 01/22/18 01:00 01/22/18 02:00 Temperature Pulse Rate 74 86 78 Respiratory Rate Blood Pressure Pulse Oximetry 01/22/18 03:00 01/22/18 04:00 01/22/18 04:38 Temperature 97.7 F Pulse Rate 77 70 83 Respiratory Rate 24 24 Blood Pressure 127/73 Pulse Oximetry 99 01/22/18 05:00 01/22/18 06:00 01/22/18 07:00 Temperature Pulse Rate 80 88 91 H Respiratory Rate Blood Pressure Pulse Oximetry 01/22/18 08:00 01/22/18 09:00 01/22/18 10:00 Temperature 98.2 F Pulse Rate 86 97 H 94 H Respiratory Rate 18 Blood Pressure 142/74 H Pulse Oximetry 91 L Intake & Output 01/21/18 01/22/18 01/22/18 18:59 06:59 18:59 Intake Total 1200 / 1200 760 / 760 Output Total 750 / 750 600 / 600 Balance 450 / 450 160 / 160 Weight 91.1 kg Intake: Oral 1200 / 1200 760 / 760 Output: Urine 750 / 750 600 / 600 Other: Date of Last Bowel Movement 01/21/18 01/21/18 # Bowel Movements 1 Narrative: GENERAL: NAD CARDIOVASCULAR: Regular rate and rhythm without murmurs, gallops, or rubs. RESPIRATORY: Decreased breath sounds bilateral, right posterior surgical wound. GASTROINTESTINAL: Abdomen soft, non-tender, nondistended. MUSCULOSKELETAL: No cyanosis, or edema. - Urinary Catheter Management Indwelling Urethral Catheter Cath placed during this visit: yes, but has since been removed by the nurse Reason for continuing: Decision to DC catheter Insertion date: 01/05/18 Insertion time: 22:00 Removal date: 01/09/18 Removal time: 11:00 Straight Cath placed during this visit: yes, but has since been removed by the nurse Reason for continuing: Acute urinary retention Insertion date: 01/05/18 Insertion time: 17:00 Removal date: 01/05/18 Removal time: 17:08 Results - Labs CBC & Chem 7: 01/13/18 05:10 01/12/18 05:42 - Procedures Date of procedure: 01/04/18 Anesthesia: GETA Surgeon: Zaida Serrano MD Operation and Findings: PREOPERATIVE DIAGNOSIS 1. Right Upper lobe Lung Mass 2. Right upper lobe endobronchial obstruction with complete collapse 3. COPD POSTOPERATIVE DIAGNOSIS same PROCEDURES 1. Right posterolateral Muscle Sparing Thoracotomy 2. Right Upper lobectomy 3. Mediastinal Lymph Node Dissection 4. Intercostal Nerve Block SURGEON Zaida Serrano MD Assessment and Plan - Plan 62-year-old man with 1. Right Lung endobronchial Mass status post Right posterolateral Muscle sparing thoracotomy, Right upper lobectomy, Mediastinal lymph node dissection, intercostal nerve block. 01/04/18 Pathology report positive for invasive squamous cell carcinoma and adenocarcinoma of the lung. Per virtual reality specialist he will need Chemoradiation therapy in 2 weeks possible. 2. PAD/left Lower extremity revascularization, management as per Vascular surgery Continue Plavix 75 mg and Aspirin 81 mg daily, anticoagulation as per Cardiothoracic surgery. 3. Chronic Respiratory failure/COPD/Right lower lung collapse Bronchodilator, Mucolytic incentive spirometry,Steroids. 4. Alcohol abuse History of alcohol withdrawal [facility] protocol, No signs of withdrawal. 5. Tobacco abuse: Smoking cessation counseling provided 6. Hypertension controlled. 7. Urinary retention Peres cath placed and Flomax started. 8. Abnormal urinalysis: s/p Zosyn. 9. Right foot swollen-improving Continue with conservative treatment Vascular surgery following
[2018-01-22] MEDS: Enoxaparin Inj 30 MG/0.3 ML Syringe SQ SCH (15:24)
[2018-01-22] MEDS: Temazepam 15 MG Capsule PO PRN (22:50)
[2018-01-23] MEDS: Senna/Docusate Sodium 8.6/50 MG Tablet PO SCH ×2 (08:00→20:50)
[2018-01-23] MEDS: guaiFENesin 600 MG ER Tablet PO SCH ×2 (08:00→20:50)
[2018-01-23] MEDS: predniSONE 20 MG Tablet PO SCH (08:00)
[2018-01-23] MEDS: Budesonide-Formoterol 160/4.5 MCG 6 GM Inhaler INH SCH ×2 (08:01→20:50)
--- NOTE | 2018-01-23 10:16 | P.PNONC ---
Subjective Interval history: Patient seen and examined, vital signs, labs medications and art consultant notes reviewed. Subjectively patient denies acute complaints, he tells me he is recovering well from his thoracic surgery, he is eating well and seems to be very comfortable. He underwent right-sided thoracotomy with resection of the right upper lobe lung mass and hilar and mediastinal lymph node sampling 2 and half weeks ago. Objective Vital Signs/Intake & Output: Vital Signs 01/22/18 11:00 01/22/18 12:00 01/22/18 13:00 Temperature 98.3 F Pulse Rate 84 92 H 106 H Respiratory Rate 18 Blood Pressure 139/78 Pulse Oximetry 94 L 01/22/18 14:00 01/22/18 15:00 01/22/18 15:35 Temperature Pulse Rate 104 H 96 H 103 H Respiratory Rate 16 Blood Pressure Pulse Oximetry 01/22/18 16:00 01/22/18 17:00 01/22/18 18:00 Temperature 98.4 F Pulse Rate 106 H 110 H 108 H Respiratory Rate 18 Blood Pressure 138/74 Pulse Oximetry 97 01/22/18 19:00 01/22/18 19:29 01/22/18 20:00 Temperature 97.8 F Pulse Rate 104 H 97 H 94 H Respiratory Rate 22 Blood Pressure 142/72 H Pulse Oximetry 95 01/22/18 21:00 01/22/18 22:00 01/22/18 23:00 Temperature Pulse Rate 92 H 92 H 93 H Respiratory Rate Blood Pressure Pulse Oximetry 01/22/18 23:02 01/22/18 23:05 01/22/18 23:55 Temperature 98.0 F Pulse Rate 92 H 94 H Respiratory Rate 16 24 22 Blood Pressure 137/77 Pulse Oximetry 98 01/23/18 00:00 01/23/18 01:00 01/23/18 02:00 Temperature Pulse Rate 90 92 H 90 Respiratory Rate Blood Pressure Pulse Oximetry 01/23/18 03:00 01/23/18 04:00 01/23/18 05:00 Temperature 97.8 F Pulse Rate 94 H 84 86 Respiratory Rate 20 Blood Pressure 129/83 Pulse Oximetry 97 01/23/18 05:42 01/23/18 05:58 01/23/18 07:00 Temperature Pulse Rate 82 93 H Respiratory Rate 18 Blood Pressure Pulse Oximetry 01/23/18 08:00 Temperature 97.5 F L Pulse Rate 84 Respiratory Rate 18 Blood Pressure 134/79 Pulse Oximetry 96 Intake & Output 01/22/18 01/23/18 01/23/18 18:59 06:59 18:59 Intake Total 1302 / 1302 960 / 960 Output Total 600 / 600 600 / 600 Balance 702 / 702 360 / 360 Weight 92 kg Intake: Oral 1302 / 1302 960 / 960 Output: Urine 600 / 600 600 / 600 Other: # Voids 3 Date of Last Bowel Movement 01/22/18 01/22/18 # Bowel Movements 1 Result Diagrams: 01/13/18 05:10 01/12/18 05:42 Medications: Active Medications Generic Name Dose Route Start Last Admin Trade Name Freq PRN Reason Stop Dose Admin Hydrocodone Bitart/Acetaminophen 1 tab 01/04/18 15:40 01/23/18 08:01 [place] 5/325 PO 1 tab Q3H PRN Administration PAIN SCALE 3 TO 5 Albuterol 1 ampul 12/26/17 16:41 01/22/18 23:02 Duoneb Neb (Prn) NEB 1 ampul Q6HR NEB PRN Administration SOB/WHEEZING Aspirin 81 mg 12/30/17 09:00 01/23/18 08:00 Ecotrin PO 81 mg DAILY IAN Administration Budesonide/Formoterol Fumarate 2 puff 12/26/17 21:00 01/23/18 08:01 Symbicort 160/4.5 Mcg Inh INH 2 puff BID IAN Administration Clopidogrel Bisulfate 75 mg 01/10/18 09:00 01/23/18 08:00 Plavix PO 75 mg DAILY IAN Administration Diphenhydramine HCl 25 mg 01/04/18 15:40 01/16/18 22:36 Benadryl PO 25 mg Q6H PRN Administration for itching Enoxaparin Sodium 30 mg 01/05/18 15:00 01/22/18 15:24 Lovenox Inj SQ 30 mg Q24H IAN Administration Guaifenesin 600 mg 12/31/17 21:00 01/23/18 08:00 Mucinex Er PO 600 mg BID IAN Administration Ondansetron HCl 4 mg 01/04/18 15:40 01/11/18 13:13 Zofran Inj IV.PUSH 4 mg Q6H PRN Administration NAUSEA OR VOMITING Pantoprazole Sodium 40 mg 01/04/18 21:00 01/22/18 21:18 Protonix PO 40 mg HS IAN Administration Pravastatin Sodium 40 mg 12/27/17 09:00 01/23/18 08:00 Pravachol PO 40 mg DAILY IAN Administration Prednisone 40 mg 01/10/18 09:00 01/23/18 08:00 Deltasone PO 40 mg DAILY IAN Administration Senna/Docusate Sodium 1 tab 01/04/18 21:00 01/23/18 08:00 Whit-Colace PO 1 tab BID IAN Administration Sodium Chloride 2 ml 01/04/18 21:00 01/23/18 08:01 Ns Flush IV.FLUSH 2 ml BID IAN Administration Sodium Chloride 2 ml 01/04/18 15:40 01/05/18 21:14 Ns Flush IV.FLUSH 2 ml UNSCH PRN Administration FLUSH AFTER USING IV ACCESS Tamsulosin HCl 0.4 mg 01/06/18 11:00 01/23/18 08:00 Flomax PO 0.4 mg DAILY IAN Administration Temazepam 15 mg 12/26/17 21:00 01/22/18 22:50 Restoril PO 15 mg HS PRN Administration INSOMNIA Objective Remarks: GENERAL: Middle-aged male, sitting up in bed, appears to be no acute distress has a pleasant disposition. SKIN: Warm and dry. HEAD: Normocephalic. EYES: No scleral icterus. No injection or drainage. NECK: Supple, trachea midline. No JVD or lymphadenopathy. LYMPHATIC: No adenopathy. CARDIOVASCULAR: Regular rate and rhythm without murmurs. Chest: Well-healing right-sided thoracotomy incision noted. RESPIRATORY: Good air movement bilaterally, prolonged expiratory phase, scattered crepitus and rhonchi. GASTROINTESTINAL: Abdomen soft, non-tender, nondistended. EXTREMITIES: Right lower extremity with edema involving the ankle and the foot. MUSCULOSKELETAL: Adequate muscle tone. NEUROLOGICAL: No obvious focal deficit. Awake, alert, and oriented x3. PSYCHIATRIC: Appropriate mood and affect; insight and judgment normal. Assessment/Plan - Plan Mr. Garcia is a 62-year-old man with an extensive past history of tobaccoism and heavy alcohol consumption, he is reportedly homeless prior to this hospitalization. He was found on imaging studies performed in November 2017 to have a right upper lobe lung mass with resultant collapse of the right upper lobe. He underwent bronchoscopy which revealed a mass involving the right upper lobe bronchus with complete obstruction, cytology from that initial biopsy was nondiagnostic. The patient's case was extensively discussed with pulmonology, interventional radiology and thoracic surgery. He was advised open biopsy with possible surgical resection, he underwent this procedure on . The right upper lobe was resected, multiple lymph nodes were also resected. Due to the proximity of the right upper lobe lung mass to the right mainstem bronchus and princess short of a right pneumonectomy negative margins could not be obtained. Based on pathologic findings he has a T1 N2 tumor, radiographic imaging indicates no evidence of metastatic disease. Due to the extensive donna involvement as well as positive margins from a medical oncology standpoint he will be a candidate for postoperative combined chemoradiotherapy. Typically, combined chemoradiotherapy is not initiated until an individual has fully recovered from surgical resection (typically we allow 3-4 weeks recovery time before chemoradiotherapy is initiated). Once treatment is initiated the patient will remain on weekly chemotherapy with daily (Tuesday-Tuesday) radiation. Treatment last for up to 7 weeks. The logistics of postoperative treatment will be very challenging given the patient's current social circumstances i.e. him being homeless. Due to his current insurance he is also unable to see [facility] the outpatient setting. Recommendations: He is healing well from his surgery. I requested radiation oncology evaluation to begin the planning phase of adjuvant/postoperative radiation. 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 Because of his homelessness and insurance issues I am not confident that this man will be able to see me reliably or to see any other oncologist reliably in the outpatient setting. I talked him again about his living situation, he tells me he will remain homeless at the time of discharge. I do not see how this man can be on combined chemo and radiotherapy while living in the streets. The only safe discharge for him would be to some form of care facility where he will be sheltered while on combined chemoradiotherapy. Otherwise, the default disposition would be for him to remain in the hospital while he receives chemotherapy and radiation. Typically, chemoradiotherapy starts about 4 weeks after surgical resection and lasts up to 7 weeks. Therefore, if the patient starts combined chemoradiotherapy in the middle of January 2018, he should finish treatment towards the end of February 2018.
--- NOTE | 2018-01-23 10:48 | P.PN ---
Subjective Interval history: Follow-up lung cancer January 20, 2018-patient seen and examined, stable, no issues this morning. Afebrile January 21, 2018-patient seen and examined, reports some mild right lower extremity swelling otherwise stable denies any pain. January 22, 2018-patient seen and examined, no change, stable, denies any shortness of breath. January 23, 2018-patient seen and examined, was seen this a.m. by oncology and discuss about combined chemoradiation therapy. No acute event overnight Physical Exam Vital signs: Vital Signs 01/22/18 11:00 01/22/18 12:00 01/22/18 13:00 Temperature 98.3 F Pulse Rate 84 92 H 106 H Respiratory Rate 18 Blood Pressure 139/78 Pulse Oximetry 94 L 01/22/18 14:00 01/22/18 15:00 01/22/18 15:35 Temperature Pulse Rate 104 H 96 H 103 H Respiratory Rate 16 Blood Pressure Pulse Oximetry 01/22/18 16:00 01/22/18 17:00 01/22/18 18:00 Temperature 98.4 F Pulse Rate 106 H 110 H 108 H Respiratory Rate 18 Blood Pressure 138/74 Pulse Oximetry 97 01/22/18 19:00 01/22/18 19:29 01/22/18 20:00 Temperature 97.8 F Pulse Rate 104 H 97 H 94 H Respiratory Rate 22 Blood Pressure 142/72 H Pulse Oximetry 95 01/22/18 21:00 01/22/18 22:00 01/22/18 23:00 Temperature Pulse Rate 92 H 92 H 93 H Respiratory Rate Blood Pressure Pulse Oximetry 01/22/18 23:02 01/22/18 23:05 01/22/18 23:55 Temperature 98.0 F Pulse Rate 92 H 94 H Respiratory Rate 16 24 22 Blood Pressure 137/77 Pulse Oximetry 98 01/23/18 00:00 01/23/18 01:00 01/23/18 02:00 Temperature Pulse Rate 90 92 H 90 Respiratory Rate Blood Pressure Pulse Oximetry 01/23/18 03:00 01/23/18 04:00 01/23/18 05:00 Temperature 97.8 F Pulse Rate 94 H 84 86 Respiratory Rate 20 Blood Pressure 129/83 Pulse Oximetry 97 01/23/18 05:42 01/23/18 05:58 01/23/18 07:00 Temperature Pulse Rate 82 93 H Respiratory Rate 18 Blood Pressure Pulse Oximetry 01/23/18 08:00 Temperature 97.5 F L Pulse Rate 84 Respiratory Rate 18 Blood Pressure 134/79 Pulse Oximetry 96 Intake & Output 01/22/18 01/23/18 01/23/18 18:59 06:59 18:59 Intake Total 1302 / 1302 960 / 960 Output Total 600 / 600 600 / 600 Balance 702 / 702 360 / 360 Weight 92 kg Intake: Oral 1302 / 1302 960 / 960 Output: Urine 600 / 600 600 / 600 Other: # Voids 3 Date of Last Bowel Movement 01/22/18 01/22/18 # Bowel Movements 1 Narrative: GENERAL: NAD CARDIOVASCULAR: Regular rate and rhythm without murmurs, gallops, or rubs. RESPIRATORY: Decreased breath sounds bilateral, right posterior surgical wound. GASTROINTESTINAL: Abdomen soft, non-tender, nondistended. MUSCULOSKELETAL: No cyanosis, or edema. - Urinary Catheter Management Indwelling Urethral Catheter Cath placed during this visit: yes, but has since been removed by the nurse Reason for continuing: Decision to DC catheter Insertion date: 01/05/18 Insertion time: 22:00 Removal date: 01/09/18 Removal time: 11:00 Straight Cath placed during this visit: yes, but has since been removed by the nurse Reason for continuing: Acute urinary retention Insertion date: 01/05/18 Insertion time: 17:00 Removal date: 01/05/18 Removal time: 17:08 Results - Labs CBC & Chem 7: 01/13/18 05:10 01/12/18 05:42 - Procedures Date of procedure: 01/04/18 Anesthesia: GETA Surgeon: Zaida Serrano MD Operation and Findings: PREOPERATIVE DIAGNOSIS 1. Right Upper lobe Lung Mass 2. Right upper lobe endobronchial obstruction with complete collapse 3. COPD POSTOPERATIVE DIAGNOSIS same PROCEDURES 1. Right posterolateral Muscle Sparing Thoracotomy 2. Right Upper lobectomy 3. Mediastinal Lymph Node Dissection 4. Intercostal Nerve Block SURGEON Zaida Serrano MD Assessment and Plan - Plan 62-year-old man with 1. Right Lung endobronchial Mass status post Right posterolateral Muscle sparing thoracotomy, Right upper lobectomy, Mediastinal lymph node dissection, intercostal nerve block. 01/04/18 Pathology report positive for invasive squamous cell carcinoma and adenocarcinoma of the lung. Per department specialist he will need Chemoradiation therapy mid January 2018. However therapy to last 7 weeks 2. PAD/left Lower extremity revascularization, management as per Vascular surgery Continue Plavix 75 mg and Aspirin 81 mg daily, anticoagulation as per Cardiothoracic surgery. 3. Chronic Respiratory failure/COPD/Right lower lung collapse Bronchodilator, Mucolytic incentive spirometry,Steroids. 4. Alcohol abuse History of alcohol withdrawal [facility] protocol, No signs of withdrawal. 5. Tobacco abuse: Smoking cessation counseling provided 6. Hypertension controlled. 7. Urinary retention Peres cath placed and Flomax started. 8. Abnormal urinalysis: s/p Zosyn. 9. Right foot swollen-improving Continue with conservative treatment Vascular surgery following
[2018-01-23] MEDS: Enoxaparin Inj 30 MG/0.3 ML Syringe SQ SCH (15:54)
[2018-01-23 16:29] LABS: Anion Gap 7 meq/L (5-15); Blood Urea Nitrogen 19 mg/dL (7-18); Calcium 8.4 mg/dL (8.5-10.1); Carbon Dioxide 27.7 meq/L (21.0-32.0); Chloride 104 meq/L (98-107); Glomerular Filtration Rate Greater Than 89 mL/min (>89); Glucose,Random 135 mg/dL (74-106); Magnesium 1.9 mg/dL (1.5-2.5); Sodium 139 meq/L (136-145)
[2018-01-23 16:30] LABS: Phosphorus 3.8 mg/dL (2.5-4.9)
--- NOTE | 2018-01-23 17:02 | P.PNPL ---
Subjective Interval history: 62 YOWM with COPD,RUL endobronchial mass, PAD No Fever No CP Bx sq cell ca with adenocarcinoma Mild swelling rt leg, getting better Physical Exam Vital signs: Vital Signs 01/22/18 18:00 01/22/18 19:00 01/22/18 19:29 Temperature 97.8 F Pulse Rate 108 H 104 H 97 H Respiratory Rate 22 Blood Pressure 142/72 H Pulse Oximetry 95 01/22/18 20:00 01/22/18 21:00 01/22/18 22:00 Temperature Pulse Rate 94 H 92 H 92 H Respiratory Rate Blood Pressure Pulse Oximetry 01/22/18 23:00 01/22/18 23:02 01/22/18 23:05 Temperature 98.0 F Pulse Rate 93 H 92 H 94 H Respiratory Rate 16 24 Blood Pressure 137/77 Pulse Oximetry 98 01/22/18 23:55 01/23/18 00:00 01/23/18 01:00 Temperature Pulse Rate 90 92 H Respiratory Rate 22 Blood Pressure Pulse Oximetry 01/23/18 02:00 01/23/18 03:00 01/23/18 04:00 Temperature 97.8 F Pulse Rate 90 94 H 84 Respiratory Rate 20 Blood Pressure 129/83 Pulse Oximetry 97 01/23/18 05:00 01/23/18 05:42 01/23/18 05:58 Temperature Pulse Rate 86 82 Respiratory Rate 18 Blood Pressure Pulse Oximetry 01/23/18 07:00 01/23/18 08:00 01/23/18 09:00 Temperature 97.5 F L Pulse Rate 93 H 88 86 Respiratory Rate 18 Blood Pressure 134/79 Pulse Oximetry 96 01/23/18 10:00 01/23/18 11:00 01/23/18 12:00 Temperature 97.7 F Pulse Rate 102 H 99 H 98 H Respiratory Rate 18 Blood Pressure 141/74 H Pulse Oximetry 94 L 01/23/18 13:16 Temperature Pulse Rate 96 H Respiratory Rate Blood Pressure Pulse Oximetry Intake & Output 01/22/18 01/23/18 01/23/18 18:59 06:59 18:59 Intake Total 1302 / 1302 960 / 960 Output Total 600 / 600 600 / 600 Balance 702 / 702 360 / 360 Weight 92 kg Intake: Oral 1302 / 1302 960 / 960 Output: Urine 600 / 600 600 / 600 Other: # Voids 3 Date of Last Bowel Movement 01/22/18 01/22/18 # Bowel Movements 1 GENERAL: WBWN, NAD SKIN: Warm and dry. HEAD: Normocephalic. EYES: No scleral icterus. No injection or drainage. NECK: Supple, trachea midline. No JVD or lymphadenopathy. CARDIOVASCULAR: Regular rate and rhythm without murmurs, gallops, or rubs. RESPIRATORY: Breath sounds equal bilaterally. No accessory muscle use. GASTROINTESTINAL: Abdomen soft, non-tender, nondistended. MUSCULOSKELETAL: No cyanosis, or edema. BACK: Nontender without obvious deformity. No CVA tenderness. - Urinary Catheter Management Indwelling Urethral Catheter Cath placed during this visit: yes, but has since been removed by the nurse Reason for continuing: Decision to DC catheter Insertion date: 01/05/18 Insertion time: 22:00 Removal date: 01/09/18 Removal time: 11:00 Straight Cath placed during this visit: yes, but has since been removed by the nurse Reason for continuing: Acute urinary retention Insertion date: 01/05/18 Insertion time: 17:00 Removal date: 01/05/18 Removal time: 17:08 Assessment and Plan - Plan IMPRESSION: 1. Right lung endobronchial mass, .s/p RULobectomy SQ, cell ca lung and Adenocarcinoma 2. Chronic obstructive pulmonary disease. 3. Peripheral artery disease, status post operative procedure done. 4. Nicotine abuse. 5. History of alcohol abuse. 6. The patient is homeless. PLAN: Aerosol nebs Prednisone 40 mg daily. Supplement 02 plans to start Chemo Stable from Pulm standpoint.
[2018-01-23] MEDS: Temazepam 15 MG Capsule PO PRN (22:49)
[2018-01-24] MEDS: Senna/Docusate Sodium 8.6/50 MG Tablet PO SCH ×2 (08:23→21:55)
[2018-01-24] MEDS: predniSONE 20 MG Tablet PO SCH (08:24)
[2018-01-24] MEDS: guaiFENesin 600 MG ER Tablet PO SCH ×2 (08:24→21:55)
[2018-01-24] MEDS: Budesonide-Formoterol 160/4.5 MCG 6 GM Inhaler INH SCH ×2 (08:25→23:10)
--- NOTE | 2018-01-24 11:01 | P.PNPL ---
Subjective Interval history: 62 YOWM with COPD,RUL endobronchial mass, PAD No Fever No CP Bx sq cell ca with adenocarcinoma weaned to RA Physical Exam Vital signs: Vital Signs 01/23/18 11:00 01/23/18 12:00 01/23/18 13:16 Temperature 97.7 F Pulse Rate 99 H 98 H 96 H Respiratory Rate 18 Blood Pressure 141/74 H Pulse Oximetry 94 L 01/23/18 14:00 01/23/18 15:00 01/23/18 16:00 Temperature 98.1 F Pulse Rate 98 H 101 H 94 H Respiratory Rate 18 Blood Pressure 130/79 Pulse Oximetry 97 01/23/18 17:00 01/23/18 18:00 01/23/18 19:00 Temperature Pulse Rate 92 H 100 H 91 H Respiratory Rate Blood Pressure Pulse Oximetry 01/23/18 20:00 01/23/18 21:00 01/23/18 22:00 Temperature 98.0 F Pulse Rate 90 90 92 H Respiratory Rate 20 Blood Pressure 145/90 H Pulse Oximetry 97 01/23/18 23:00 01/23/18 23:15 01/24/18 00:00 Temperature 97.7 F Pulse Rate 85 92 H 84 Respiratory Rate 22 Blood Pressure 145/90 H Pulse Oximetry 97 01/24/18 01:00 01/24/18 02:00 01/24/18 03:00 Temperature Pulse Rate 78 82 78 Respiratory Rate Blood Pressure Pulse Oximetry 01/24/18 04:00 01/24/18 05:00 01/24/18 06:00 Temperature 97.7 F Pulse Rate 80 78 78 Respiratory Rate 20 Blood Pressure 143/81 H Pulse Oximetry 98 01/24/18 08:09 Temperature 98 F Pulse Rate 81 Respiratory Rate 19 Blood Pressure 149/87 H Pulse Oximetry 100 Intake & Output 01/23/18 01/24/18 01/24/18 18:59 06:59 18:59 Intake Total 1200 / 1200 1080 / 1080 Output Total 800 / 800 300 / 300 Balance 400 / 400 780 / 780 Weight 92.8 kg Intake: Oral 1200 / 1200 1080 / 1080 Output: Urine 800 / 800 300 / 300 Other: # Voids 4 Date of Last Bowel Movement 01/23/18 01/23/18 # Bowel Movements 2 GENERAL: WBWN, NAD SKIN: Warm and dry. HEAD: Normocephalic. EYES: No scleral icterus. No injection or drainage. NECK: Supple, trachea midline. No JVD or lymphadenopathy. CARDIOVASCULAR: Regular rate and rhythm without murmurs, gallops, or rubs. RESPIRATORY: Breath sounds equal bilaterally. No accessory muscle use. GASTROINTESTINAL: Abdomen soft, non-tender, nondistended. MUSCULOSKELETAL: No cyanosis, or edema. BACK: Nontender without obvious deformity. No CVA tenderness. - Urinary Catheter Management Indwelling Urethral Catheter Cath placed during this visit: yes, but has since been removed by the nurse Reason for continuing: Decision to DC catheter Insertion date: 01/05/18 Insertion time: 22:00 Removal date: 01/09/18 Removal time: 11:00 Straight Cath placed during this visit: yes, but has since been removed by the nurse Reason for continuing: Acute urinary retention Insertion date: 01/05/18 Insertion time: 17:00 Removal date: 01/05/18 Removal time: 17:08 Assessment and Plan - Plan IMPRESSION: 1. Right lung endobronchial mass, .s/p RULobectomy SQ, cell ca lung and Adenocarcinoma 2. Chronic obstructive pulmonary disease. 3. Peripheral artery disease, status post operative procedure done. 4. Nicotine abuse. 5. History of alcohol abuse. 6. The patient is homeless. PLAN: Aerosol nebs Prednisone 40 mg daily. Supplement 02 plans to start Chemo Stable from Pulm standpoint.
--- NOTE | 2018-01-24 11:11 | P.PN ---
Subjective Interval history: Follow-up lung cancer January 20, 2018-patient seen and examined, stable, no issues this morning. Afebrile January 21, 2018-patient seen and examined, reports some mild right lower extremity swelling otherwise stable denies any pain. January 22, 2018-patient seen and examined, no change, stable, denies any shortness of breath. January 23, 2018-patient seen and examined, was seen this a.m. by oncology and discuss about combined chemoradiation therapy. No acute event overnight January 24, 2018-patient seen and examined, stable, no complaint, afebrile, Physical Exam Vital signs: Vital Signs 01/23/18 12:00 01/23/18 13:16 01/23/18 14:00 Temperature 97.7 F Pulse Rate 98 H 96 H 98 H Respiratory Rate 18 Blood Pressure 141/74 H Pulse Oximetry 94 L 01/23/18 15:00 01/23/18 16:00 01/23/18 17:00 Temperature 98.1 F Pulse Rate 101 H 94 H 92 H Respiratory Rate 18 Blood Pressure 130/79 Pulse Oximetry 97 01/23/18 18:00 01/23/18 19:00 01/23/18 20:00 Temperature 98.0 F Pulse Rate 100 H 91 H 90 Respiratory Rate 20 Blood Pressure 145/90 H Pulse Oximetry 97 01/23/18 21:00 01/23/18 22:00 01/23/18 23:00 Temperature Pulse Rate 90 92 H 85 Respiratory Rate Blood Pressure Pulse Oximetry 01/23/18 23:15 01/24/18 00:00 01/24/18 01:00 Temperature 97.7 F Pulse Rate 92 H 84 78 Respiratory Rate 22 Blood Pressure 145/90 H Pulse Oximetry 97 01/24/18 02:00 01/24/18 03:00 01/24/18 04:00 Temperature 97.7 F Pulse Rate 82 78 80 Respiratory Rate 20 Blood Pressure 143/81 H Pulse Oximetry 98 01/24/18 05:00 01/24/18 06:00 01/24/18 08:09 Temperature 98 F Pulse Rate 78 78 81 Respiratory Rate 19 Blood Pressure 149/87 H Pulse Oximetry 100 Intake & Output 01/23/18 01/24/18 01/24/18 18:59 06:59 18:59 Intake Total 1200 / 1200 1080 / 1080 Output Total 800 / 800 300 / 300 Balance 400 / 400 780 / 780 Weight 92.8 kg Intake: Oral 1200 / 1200 1080 / 1080 Output: Urine 800 / 800 300 / 300 Other: # Voids 4 Date of Last Bowel Movement 01/23/18 01/23/18 # Bowel Movements 2 Narrative: GENERAL: NAD CARDIOVASCULAR: Regular rate and rhythm without murmurs, gallops, or rubs. RESPIRATORY: Decreased breath sounds bilateral, right posterior surgical wound. GASTROINTESTINAL: Abdomen soft, non-tender, nondistended. MUSCULOSKELETAL: No cyanosis, or edema. - Urinary Catheter Management Indwelling Urethral Catheter Cath placed during this visit: yes, but has since been removed by the nurse Reason for continuing: Decision to DC catheter Insertion date: 01/05/18 Insertion time: 22:00 Removal date: 01/09/18 Removal time: 11:00 Straight Cath placed during this visit: yes, but has since been removed by the nurse Reason for continuing: Acute urinary retention Insertion date: 01/05/18 Insertion time: 17:00 Removal date: 01/05/18 Removal time: 17:08 Results - Labs CBC & Chem 7: 01/13/18 05:10 01/23/18 16:00 Laboratory Results - last 24 hr 01/23/18 16:00 Sodium 139 Potassium 4.0 Chloride 104 Carbon Dioxide 27.7 Anion Gap 7 BUN 19 H Creatinine 0.62 Estimated GFR Greater than 89 Random Glucose 135 H Calcium 8.4 L Phosphorus 3.8 Magnesium 1.9 - Procedures Date of procedure: 01/04/18 Anesthesia: GETA Surgeon: Zaida Serrano MD Operation and Findings: PREOPERATIVE DIAGNOSIS 1. Right Upper lobe Lung Mass 2. Right upper lobe endobronchial obstruction with complete collapse 3. COPD POSTOPERATIVE DIAGNOSIS same PROCEDURES 1. Right posterolateral Muscle Sparing Thoracotomy 2. Right Upper lobectomy 3. Mediastinal Lymph Node Dissection 4. Intercostal Nerve Block SURGEON Zaida Serrano MD Assessment and Plan - Plan 62-year-old man with 1. Right Lung endobronchial Mass status post Right posterolateral Muscle sparing thoracotomy, Right upper lobectomy, Mediastinal lymph node dissection, intercostal nerve block. 01/04/18 Pathology report positive for invasive squamous cell carcinoma and adenocarcinoma of the lung. Per career transition specialist he will need Chemoradiation therapy mid January 2018. However therapy to last 7 weeks 2. PAD/left Lower extremity revascularization, management as per Vascular surgery Continue Plavix 75 mg and Aspirin 81 mg daily, anticoagulation as per Cardiothoracic surgery. 3. Chronic Respiratory failure/COPD/Right lower lung collapse Bronchodilator, Mucolytic incentive spirometry, prednisone 40 mg daily. Appreciate input from pulmonary medicine 4. Alcohol abuse History of alcohol withdrawal [facility] protocol, No signs of withdrawal. 5. Tobacco abuse: Smoking cessation counseling provided 6. Hypertension controlled. 7. Urinary retention-resolved and continue Flomax . 8. Abnormal urinalysis: s/p Zosyn. 9. Right foot swollen-improving Continue with conservative treatment Vascular surgery following
[2018-01-24] MEDS: Enoxaparin Inj 30 MG/0.3 ML Syringe SQ SCH (15:15)
[2018-01-24] MEDS: Temazepam 15 MG Capsule PO PRN (23:10)
[2018-01-25 06:13] LABS: Hematocrit 24.7 % (39.0-51.0); Hemoglobin 8.1 gm/dL (13.0-17.0); Mean Corpuscular HGB Conc 32.6 % (32.0-36.0); Mean Corpuscular Hemoglobin 32.8 pg (27.0-34.0); Mean Corpuscular Volume 100.5 fL (80.0-100.0); Mean Platelet Volume 8.4 fL (7.0-11.0); Platelet Count 412 th/mm3 (150-450); Red Blood Count 2.46 mil/mm3 (4.50-5.90); Red Cell Distribution Width 17.2 % (11.6-17.2); White Blood Count 8.5 th/mm3 (4.0-11.0)
[2018-01-25 08:24] LABS: Eosinophils 3 % (0-4); Lymphocytes 19 % (9-44); Metamyelocytes 6 % (0-1); Monocytes 7 % (0-8)
[2018-01-25 08:25] LABS: Platelet Estimate Normal (Normal); Platelet Morphology Normal (Normal)
[2018-01-25] MEDS: guaiFENesin 600 MG ER Tablet PO SCH ×2 (09:36→21:15)
[2018-01-25] MEDS: Senna/Docusate Sodium 8.6/50 MG Tablet PO SCH ×2 (09:36→21:15)
[2018-01-25] MEDS: predniSONE 20 MG Tablet PO SCH (09:36)
[2018-01-25] MEDS: Budesonide-Formoterol 160/4.5 MCG 6 GM Inhaler INH SCH ×2 (09:37→21:17)
--- NOTE | 2018-01-25 12:26 | P.PN ---
Subjective Interval history: patient up and ambulating feeling stronger denies any hemoptysis Physical Exam Vital signs: Vital Signs 01/24/18 13:00 01/24/18 14:00 01/24/18 15:00 Temperature Pulse Rate 104 H 102 H 71 Respiratory Rate Blood Pressure Pulse Oximetry 01/24/18 16:00 01/24/18 17:00 01/24/18 18:00 Temperature 97.8 F Pulse Rate 98 H 90 96 H Respiratory Rate 20 Blood Pressure 139/79 Pulse Oximetry 95 01/24/18 20:00 01/24/18 21:00 01/24/18 21:22 Temperature 98.6 F Pulse Rate 84 81 Respiratory Rate 18 Blood Pressure 146/79 H Pulse Oximetry 97 95 01/25/18 04:00 01/25/18 05:00 01/25/18 06:00 Temperature Pulse Rate 88 82 84 Respiratory Rate 18 Blood Pressure 128/75 Pulse Oximetry 01/25/18 07:00 01/25/18 08:00 01/25/18 09:55 Temperature 97.6 F Pulse Rate 81 80 98 H Respiratory Rate 20 18 Blood Pressure 136/83 Pulse Oximetry 97 99 Intake & Output 01/24/18 01/25/18 01/25/18 18:59 06:59 18:59 Intake Total 720 / 720 680 / 680 Output Total 725 / 725 900 / 900 Balance -5 / -5 -220 / -220 Weight 92.7 kg Intake: Oral 720 / 720 680 / 680 Output: Urine 725 / 725 900 / 900 Other: Date of Last Bowel Movement 01/23/18 01/24/18 Narrative: awake and alert, no acute distress anicteric no nuchal rigidity decreased breath sounds, few rhonchi abdomen soft, nontender LE- right foot swelling- no erythema, - Urinary Catheter Management Indwelling Urethral Catheter Cath placed during this visit: yes, but has since been removed by the nurse Reason for continuing: Decision to DC catheter Insertion date: 01/05/18 Insertion time: 22:00 Removal date: 01/09/18 Removal time: 11:00 Straight Cath placed during this visit: yes, but has since been removed by the nurse Reason for continuing: Acute urinary retention Insertion date: 01/05/18 Insertion time: 17:00 Removal date: 01/05/18 Removal time: 17:08 Results - Labs CBC & Chem 7: 01/25/18 05:22 01/23/18 16:00 Laboratory Results - last 24 hr 01/25/18 05:22 WBC 8.5 RBC 2.46 L Hgb 8.1 L Hct 24.7 L MCV 100.5 H MCH 32.8 MCHC 32.6 RDW 17.2 Plt Count 412 D MPV 8.4 Prelim Diff (Auto) Manual diff required WBC Differential Manual diff final Seg Neuts % (Manual) 52 Band Neuts % (Manual) 12 H Lymphocytes % (Manual) 19 Monocytes % (Manual) 7 Eosinophils % (Manual) 3 Basophils % (Manual) 1 Metamyelocytes % (Man) 6 H Abs Neuts (Manual) 6.0 Differential Comment . Platelet Estimate Normal Platelet Morphology Normal - Procedures Date of procedure: 01/04/18 Anesthesia: GETA Surgeon: Zaida Serrano MD Operation and Findings: PREOPERATIVE DIAGNOSIS 1. Right Upper lobe Lung Mass 2. Right upper lobe endobronchial obstruction with complete collapse 3. COPD POSTOPERATIVE DIAGNOSIS same PROCEDURES 1. Right posterolateral Muscle Sparing Thoracotomy 2. Right Upper lobectomy 3. Mediastinal Lymph Node Dissection 4. Intercostal Nerve Block SURGEON Zaida Serrano MD Assessment and Plan - Plan 62-year-old man with 1. Right Lung endobronchial Mass - invasive squamous cell carcinoma and adenocarcinoma of the lung. status post Right posterolateral Muscle sparing thoracotomy, Right upper lobectomy, Mediastinal lymph node dissection, intercostal nerve block. 01/04/18 Per environmental services specialist he will need Chemoradiation therapy mid January 2018. However therapy to last 7 weeks 2. PAD/left Lower extremity revascularization, management as per Vascular surgery Continue Plavix 75 mg and Aspirin 81 mg daily, anticoagulation as per Cardiothoracic surgery. 3. Chronic Respiratory failure/COPD/Right lower lung collapse Bronchodilator, Mucolytic incentive spirometry, prednisone 40 mg daily. Appreciate input from pulmonary medicine 4. Alcohol abuse History of alcohol withdrawal [facility] protocol, No signs of withdrawal. 5. Tobacco abuse: Smoking cessation counseling provided 6. Hypertension controlled. 7. Urinary retention-resolved and continue Flomax . 8. Abnormal urinalysis: s/p Zosyn. 9. Right foot swollen-improving Continue with conservative treatment Vascular surgery following
[2018-01-25] MEDS: Enoxaparin Inj 30 MG/0.3 ML Syringe SQ SCH (17:14)
--- NOTE | 2018-01-25 17:15 | US ---
EXAM DATE: 01/25/2018 5:08 PM EDT AGE/SEX: 62 years / Male INDICATIONS: Right leg swelling. CLINICAL DATA: This is the patient's initial encounter. Patient reports that signs and symptoms have been present for 1 week and indicates a pain score of 3/10. MEDICAL/SURGICAL HISTORY: Hypertension. Peripheral artery disease. Etoh abuse. COPD. Hyperlipi demia. Right upper lobe lung mass. MRSA bilateral feet. Tonsillectomy. Femoropopliteal arterial thro mbosis right lower extremity. Left hand surgery. COMPARISON: No prior exams available for comparison. TECHNIQUE: Venous ultrasound of both lower extremities was performed from the inguinal ligament to t he proximal calf. Real-time, color Doppler and spectral tracing, compression and augmentation techni ques were used. FINDINGS: Normal compression of the deep venous system from the inguinal region to the proximal calf . No echogenic clot is seen. Normal response of the venous system to augmentation and respiration. Ex tensive subcutaneous edema is noted throughout the right lower extremity. CONCLUSION: 1. No evidence of thrombosis. Extensive subcutaneous edema. Electronically signed by: Angelica Kong MD 01/25/2018 5:14 PM EDT
--- NOTE | 2018-01-25 18:49 | P.PNPL ---
Subjective Interval history: 62 YOWM with COPD,RUL endobronchial mass, PAD No Fever No CP Bx sq cell ca with adenocarcinoma weaned to RA Had US leg, no DVT Physical Exam Vital signs: Vital Signs 01/24/18 20:00 01/24/18 21:00 01/24/18 21:22 Temperature 98.6 F Pulse Rate 84 81 Respiratory Rate 18 Blood Pressure 146/79 H Pulse Oximetry 97 95 01/25/18 04:00 01/25/18 05:00 01/25/18 06:00 Temperature Pulse Rate 88 82 84 Respiratory Rate 18 Blood Pressure 128/75 Pulse Oximetry 01/25/18 07:00 01/25/18 08:00 01/25/18 09:00 Temperature 97.6 F Pulse Rate 81 76 98 H Respiratory Rate 20 Blood Pressure 136/83 Pulse Oximetry 97 01/25/18 09:55 01/25/18 10:00 01/25/18 11:00 Temperature Pulse Rate 98 H 98 H 95 H Respiratory Rate 18 Blood Pressure Pulse Oximetry 99 01/25/18 12:00 01/25/18 13:00 01/25/18 13:44 Temperature 98.4 F Pulse Rate 96 H 98 H 94 H Respiratory Rate 24 20 Blood Pressure 149/75 H Pulse Oximetry 96 01/25/18 14:00 01/25/18 15:00 01/25/18 16:00 Temperature Pulse Rate 96 H 97 H 92 H Respiratory Rate Blood Pressure Pulse Oximetry 01/25/18 17:00 01/25/18 18:00 Temperature Pulse Rate 90 100 H Respiratory Rate Blood Pressure Pulse Oximetry Intake & Output 01/24/18 01/25/18 01/25/18 18:59 06:59 18:59 Intake Total 720 / 720 680 / 680 Output Total 725 / 725 900 / 900 Balance -5 / -5 -220 / -220 Weight 92.7 kg Intake: Oral 720 / 720 680 / 680 Output: Urine 725 / 725 900 / 900 Other: Date of Last Bowel Movement 01/23/18 01/24/18 GENERAL: WBWN, NAD SKIN: Warm and dry. HEAD: Normocephalic. EYES: No scleral icterus. No injection or drainage. NECK: Supple, trachea midline. No JVD or lymphadenopathy. CARDIOVASCULAR: Regular rate and rhythm without murmurs, gallops, or rubs. RESPIRATORY: Breath sounds equal bilaterally. No accessory muscle use. GASTROINTESTINAL: Abdomen soft, non-tender, nondistended. MUSCULOSKELETAL: No cyanosis, or edema. BACK: Nontender without obvious deformity. No CVA tenderness. - Urinary Catheter Management Indwelling Urethral Catheter Cath placed during this visit: yes, but has since been removed by the nurse Reason for continuing: Decision to DC catheter Insertion date: 01/05/18 Insertion time: 22:00 Removal date: 01/09/18 Removal time: 11:00 Straight Cath placed during this visit: yes, but has since been removed by the nurse Reason for continuing: Acute urinary retention Insertion date: 01/05/18 Insertion time: 17:00 Removal date: 01/05/18 Removal time: 17:08 Assessment and Plan - Plan IMPRESSION: 1. Right lung endobronchial mass, .s/p RULobectomy SQ, cell ca lung and Adenocarcinoma 2. Chronic obstructive pulmonary disease. 3. Peripheral artery disease, status post operative procedure done. 4. Nicotine abuse. 5. History of alcohol abuse. 6. The patient is homeless. PLAN: Aerosol nebs Prednisone 40 mg daily. Supplement 02 plans to start Chemo per Oncology Stable from Pulm standpoint.
[2018-01-25] MEDS: Temazepam 15 MG Capsule PO PRN (23:18)
[2018-01-26] MEDS: predniSONE 20 MG Tablet PO SCH (08:15)
[2018-01-26] MEDS: guaiFENesin 600 MG ER Tablet PO SCH ×2 (08:15→20:46)
[2018-01-26] MEDS: Senna/Docusate Sodium 8.6/50 MG Tablet PO SCH ×2 (08:15→20:46)
[2018-01-26] MEDS: Budesonide-Formoterol 160/4.5 MCG 6 GM Inhaler INH SCH ×2 (08:16→20:49)
--- NOTE | 2018-01-26 09:51 | P.PN ---
Subjective Interval history: already up sitting on side of chair good po + BM minimal cough no complains of pain Physical Exam Vital signs: Vital Signs 01/25/18 09:55 01/25/18 10:00 01/25/18 11:00 Temperature Pulse Rate 98 H 98 H 95 H Respiratory Rate 18 Blood Pressure Pulse Oximetry 99 01/25/18 12:00 01/25/18 13:00 01/25/18 13:44 Temperature 98.4 F Pulse Rate 96 H 98 H 94 H Respiratory Rate 24 20 Blood Pressure 149/75 H Pulse Oximetry 96 01/25/18 14:00 01/25/18 15:00 01/25/18 16:00 Temperature 98.2 F Pulse Rate 96 H 97 H 93 H Respiratory Rate 18 Blood Pressure 144/75 H Pulse Oximetry 97 01/25/18 17:00 01/25/18 18:00 01/25/18 20:00 Temperature 98.6 F Pulse Rate 90 100 H 89 Respiratory Rate 18 Blood Pressure 146/79 H Pulse Oximetry 97 01/25/18 20:01 01/25/18 21:00 01/25/18 22:00 Temperature Pulse Rate 91 H 85 82 Respiratory Rate 18 Blood Pressure Pulse Oximetry 95 01/25/18 23:00 01/26/18 00:00 01/26/18 02:00 Temperature 98.2 F Pulse Rate 89 60 78 Respiratory Rate 16 Blood Pressure 110/64 Pulse Oximetry 97 01/26/18 03:00 01/26/18 04:00 01/26/18 05:02 Temperature Pulse Rate 81 67 Respiratory Rate 18 18 Blood Pressure 136/72 Pulse Oximetry 99 01/26/18 07:00 01/26/18 07:35 01/26/18 08:00 Temperature 98.0 F Pulse Rate 78 86 80 Respiratory Rate 20 Blood Pressure 134/79 Pulse Oximetry 97 01/26/18 09:00 Temperature Pulse Rate 92 H Respiratory Rate Blood Pressure Pulse Oximetry Intake & Output 01/25/18 01/26/18 01/26/18 18:59 06:59 18:59 Intake Total 1250 / 1250 930 / 930 Output Total 850 / 850 1000 / 1000 Balance 400 / 400 -70 / -70 Weight 92.4 kg Intake: Oral 1250 / 1250 930 / 930 Output: Urine 850 / 850 1000 / 1000 Other: Date of Last Bowel Movement 01/25/18 01/25/18 Narrative: awake and alert, no acute distress, NC anicteric no nuchal rigidity decreased breath sounds, no rales, no wheezes, no rhonchi abdomen soft, nontender LE- right foot swelling- no erythema, neuro exam- unremarkable - Urinary Catheter Management Indwelling Urethral Catheter Cath placed during this visit: yes, but has since been removed by the nurse Reason for continuing: Decision to DC catheter Insertion date: 01/05/18 Insertion time: 22:00 Removal date: 01/09/18 Removal time: 11:00 Straight Cath placed during this visit: yes, but has since been removed by the nurse Reason for continuing: Acute urinary retention Insertion date: 01/05/18 Insertion time: 17:00 Removal date: 01/05/18 Removal time: 17:08 Results - Labs CBC & Chem 7: 01/25/18 05:22 01/23/18 16:00 - Imaging Impressions Venous Doppler Study 01/25/18 00:00 CONCLUSION: 1. No evidence of thrombosis. Extensive subcutaneous edema. - Procedures Date of procedure: 01/04/18 Anesthesia: GETA Surgeon: Zaida Serrano MD Operation and Findings: PREOPERATIVE DIAGNOSIS 1. Right Upper lobe Lung Mass 2. Right upper lobe endobronchial obstruction with complete collapse 3. COPD POSTOPERATIVE DIAGNOSIS same PROCEDURES 1. Right posterolateral Muscle Sparing Thoracotomy 2. Right Upper lobectomy 3. Mediastinal Lymph Node Dissection 4. 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 status post Right posterolateral Muscle sparing thoracotomy, Right upper lobectomy, Mediastinal lymph node dissection, intercostal nerve block. 01/04/18 Per academic support specialist he will need Chemoradiation therapy mid January 2018. However therapy to last 7 weeks home situation- patient homeless- needs to be in a safe/secure environment if therapy is to be started 2. PAD/left Lower extremity revascularization, management as per Vascular surgery Continue Plavix 75 mg and Aspirin 81 mg daily, anticoagulation as per Cardiothoracic surgery. 3. Chronic Respiratory failure/COPD/Right lower lung collapse Bronchodilator, Mucolytic incentive spirometry, prednisone 40 mg daily sine . - gradual taper decrease to 30 mg daily 01/26 Appreciate input from pulmonary medicine 4. Alcohol abuse History of alcohol withdrawal [facility] protocol, No signs of withdrawal. 5. Tobacco abuse: Smoking cessation counseling provided 6. Hypertension controlled. 7. Urinary retention-resolved and continue Flomax . 8. Abnormal urinalysis: s/p Zosyn. 9. Right foot swollen-improving Continue with conservative treatment Vascular surgery following CM consult for update- regarding DC plans - homeless- needs combined radiation and chemotherapy
[2018-01-26] MEDS: predniSONE 10 MG Tablet PO SCH (11:12)
[2018-01-26] MEDS: Enoxaparin Inj 30 MG/0.3 ML Syringe SQ SCH (15:16)
--- NOTE | 2018-01-26 18:56 | P.PNPL ---
Subjective Interval history: 62 YOWM with COPD,RUL endobronchial mass, PAD No Fever No CP Bx sq cell ca with adenocarcinoma weaned to RA Had US leg, no DVT Still has swelling rt foor, no pain Physical Exam Vital signs: Vital Signs 01/25/18 20:00 01/25/18 20:01 01/25/18 21:00 Temperature 98.6 F Pulse Rate 89 91 H 85 Respiratory Rate 18 18 Blood Pressure 146/79 H Pulse Oximetry 97 95 01/25/18 22:00 01/25/18 23:00 01/26/18 00:00 Temperature 98.2 F Pulse Rate 82 89 60 Respiratory Rate 16 Blood Pressure 110/64 Pulse Oximetry 97 01/26/18 02:00 01/26/18 03:00 01/26/18 04:00 Temperature Pulse Rate 78 81 67 Respiratory Rate 18 Blood Pressure 136/72 Pulse Oximetry 99 01/26/18 05:02 01/26/18 07:00 01/26/18 07:35 Temperature 98.0 F Pulse Rate 78 86 Respiratory Rate 18 20 Blood Pressure 134/79 Pulse Oximetry 97 01/26/18 08:00 01/26/18 09:00 01/26/18 10:00 Temperature Pulse Rate 80 92 H 95 H Respiratory Rate Blood Pressure Pulse Oximetry 01/26/18 11:00 01/26/18 11:07 01/26/18 12:00 Temperature 97.7 F Pulse Rate 96 H 96 H 92 H Respiratory Rate 22 Blood Pressure 133/62 Pulse Oximetry 99 01/26/18 13:00 01/26/18 13:27 01/26/18 14:00 Temperature Pulse Rate 98 H 101 H 98 H Respiratory Rate 22 Blood Pressure Pulse Oximetry 01/26/18 15:00 01/26/18 15:28 01/26/18 16:00 Temperature 97.8 F Pulse Rate 99 H 96 H 95 H Respiratory Rate 22 Blood Pressure 140/72 Pulse Oximetry 97 01/26/18 17:00 01/26/18 18:00 Temperature Pulse Rate 88 100 H Respiratory Rate Blood Pressure Pulse Oximetry Intake & Output 01/25/18 01/26/18 01/26/18 18:59 06:59 18:59 Intake Total 1250 / 1250 930 / 930 840 / 840 Output Total 850 / 850 1000 / 1000 820 / 820 Balance 400 / 400 -70 / -70 20 / 20 Weight 92.4 kg Intake: Oral 1250 / 1250 930 / 930 840 / 840 Output: Urine 850 / 850 1000 / 1000 820 / 820 Other: Date of Last Bowel Movement 01/25/18 01/26/18 GENERAL: WBWN, NAD SKIN: Warm and dry. HEAD: Normocephalic. EYES: No scleral icterus. No injection or drainage. NECK: Supple, trachea midline. No JVD or lymphadenopathy. CARDIOVASCULAR: Regular rate and rhythm without murmurs, gallops, or rubs. RESPIRATORY: Breath sounds equal bilaterally. No accessory muscle use. GASTROINTESTINAL: Abdomen soft, non-tender, nondistended. MUSCULOSKELETAL: No cyanosis, or edema. Swelling rt foot BACK: Nontender without obvious deformity. No CVA tenderness. - Urinary Catheter Management Indwelling Urethral Catheter Cath placed during this visit: yes, but has since been removed by the nurse Reason for continuing: Decision to DC catheter Insertion date: 01/05/18 Insertion time: 22:00 Removal date: 01/09/18 Removal time: 11:00 Straight Cath placed during this visit: yes, but has since been removed by the nurse Reason for continuing: Acute urinary retention Insertion date: 01/05/18 Insertion time: 17:00 Removal date: 01/05/18 Removal time: 17:08 Assessment and Plan - Plan IMPRESSION: 1. Right lung endobronchial mass, .s/p RULobectomy SQ, cell ca lung and Adenocarcinoma 2. Chronic obstructive pulmonary disease. 3. Peripheral artery disease, status post operative procedure done. 4. Nicotine abuse. 5. History of alcohol abuse. 6. The patient is homeless. PLAN: Aerosol nebs Prednisone 40 mg daily. Supplement 02 plans to start Chemo per Oncology Elevate rt foot while sitting.
[2018-01-26] MEDS: Temazepam 15 MG Capsule PO PRN (22:33)
[2018-01-27] MEDS: predniSONE 10 MG Tablet PO SCH (08:37)
[2018-01-27] MEDS: guaiFENesin 600 MG ER Tablet PO SCH ×2 (08:37→21:02)
[2018-01-27] MEDS: Budesonide-Formoterol 160/4.5 MCG 6 GM Inhaler INH SCH ×2 (08:38→21:03)
[2018-01-27] MEDS: Senna/Docusate Sodium 8.6/50 MG Tablet PO SCH ×2 (08:38→21:02)
--- NOTE | 2018-01-27 10:48 | P.PN ---
Subjective Interval history: no complains good po up and ambulating Physical Exam Vital signs: Vital Signs 01/26/18 11:00 01/26/18 11:07 01/26/18 12:00 Temperature 97.7 F Pulse Rate 96 H 96 H 92 H Respiratory Rate 22 Blood Pressure 133/62 Pulse Oximetry 99 01/26/18 13:00 01/26/18 13:27 01/26/18 14:00 Temperature Pulse Rate 98 H 101 H 98 H Respiratory Rate 22 Blood Pressure Pulse Oximetry 01/26/18 15:00 01/26/18 15:28 01/26/18 16:00 Temperature 97.8 F Pulse Rate 99 H 96 H 95 H Respiratory Rate 22 Blood Pressure 140/72 Pulse Oximetry 97 01/26/18 17:00 01/26/18 18:00 01/26/18 19:00 Temperature Pulse Rate 88 100 H 96 H Respiratory Rate Blood Pressure Pulse Oximetry 01/26/18 20:00 01/26/18 22:06 01/26/18 22:08 Temperature 97.4 F L Pulse Rate 96 H 100 H Respiratory Rate 19 22 Blood Pressure 142/75 H Pulse Oximetry 97 97 01/26/18 23:58 01/27/18 00:00 01/27/18 02:00 Temperature Pulse Rate 89 Respiratory Rate 16 Blood Pressure 144/76 H Pulse Oximetry 01/27/18 03:00 01/27/18 04:00 01/27/18 04:20 Temperature 98.8 F Pulse Rate 84 84 Respiratory Rate 18 Blood Pressure 138/89 Pulse Oximetry 01/27/18 06:00 01/27/18 07:00 01/27/18 07:48 Temperature Pulse Rate 86 75 84 Respiratory Rate Blood Pressure Pulse Oximetry 01/27/18 08:00 01/27/18 08:38 01/27/18 10:25 Temperature Pulse Rate 64 90 Respiratory Rate 16 14 18 Blood Pressure Pulse Oximetry 01/27/18 10:27 Temperature Pulse Rate Respiratory Rate Blood Pressure Pulse Oximetry 97 Intake & Output 01/26/18 01/27/18 01/27/18 18:59 06:59 18:59 Intake Total 840 / 840 700 / 700 Output Total 820 / 820 1200 / 1200 Balance 20 / 20 -500 / -500 Weight 92.7 kg Intake: Oral 840 / 840 700 / 700 Output: Urine 820 / 820 1200 / 1200 Other: Date of Last Bowel Movement 01/26/18 01/26/18 Narrative: awake and alert, no acute distress, NC anicteric no nuchal rigidity decreased breath sounds, no rales, no wheezes, no rhonchi abdomen soft, nontender LE- right foot swelling- decrease- no erythema, good peripheral pulses neuro exam- unremarkable - Urinary Catheter Management Indwelling Urethral Catheter Cath placed during this visit: yes, but has since been removed by the nurse Reason for continuing: Decision to DC catheter Insertion date: 01/05/18 Insertion time: 22:00 Removal date: 01/09/18 Removal time: 11:00 Straight Cath placed during this visit: yes, but has since been removed by the nurse Reason for continuing: Acute urinary retention Insertion date: 01/05/18 Insertion time: 17:00 Removal date: 01/05/18 Removal time: 17:08 Results - Labs CBC & Chem 7: 01/25/18 05:22 01/23/18 16:00 - Procedures Date of procedure: 01/04/18 Anesthesia: GETA Surgeon: Zaida Serrano MD Operation and Findings: PREOPERATIVE DIAGNOSIS 1. Right Upper lobe Lung Mass 2. Right upper lobe endobronchial obstruction with complete collapse 3. COPD POSTOPERATIVE DIAGNOSIS same PROCEDURES 1. Right posterolateral Muscle Sparing Thoracotomy 2. Right Upper lobectomy 3. Mediastinal Lymph Node Dissection 4. 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 status post Right posterolateral Muscle sparing thoracotomy, Right upper lobectomy, Mediastinal lymph node dissection, intercostal nerve block. 01/04/18 Per applied behavior specialist he will need Chemoradiation therapy mid January 2018. However therapy to last 7 weeks home situation- patient homeless- needs to be in a safe/secure environment if therapy is to be started 2. PAD/left Lower extremity revascularization, management as per Vascular surgery Continue Plavix 75 mg and Aspirin 81 mg daily, anticoagulation as per Cardiothoracic surgery. 3. Chronic Respiratory failure/COPD/Right lower lung collapse Bronchodilator, Mucolytic incentive spirometry, prednisone 40 mg daily sine . - gradual taper decrease to 30 mg daily 01/26 Appreciate input from pulmonary medicine 4. Alcohol abuse History of alcohol withdrawal CICA protocol, No signs of withdrawal. 5. Tobacco abuse: Smoking cessation counseling provided 6. Hypertension controlled. 7. Urinary retention-resolved and continue Flomax . 8. Abnormal urinalysis: s/p Zosyn. 9. Right foot swollen-improving Continue with conservative treatment Vascular surgery following CM consult for update- regarding DC plans - homeless- needs combined radiation and chemotherapy for 7 weeks- february -needs a safe discharge plan to complete therapy
--- NOTE | 2018-01-27 11:09 | P.PNPL ---
Subjective Interval history: 62 YOWM with COPD,RUL endobronchial mass, PAD No Fever No CP Bx sq cell ca with adenocarcinoma weaned to RA Physical Exam Vital signs: Vital Signs 01/26/18 12:00 01/26/18 13:00 01/26/18 13:27 Temperature Pulse Rate 92 H 98 H 101 H Respiratory Rate 22 Blood Pressure Pulse Oximetry 01/26/18 14:00 01/26/18 15:00 01/26/18 15:28 Temperature 97.8 F Pulse Rate 98 H 99 H 96 H Respiratory Rate 22 Blood Pressure 140/72 Pulse Oximetry 97 01/26/18 16:00 01/26/18 17:00 01/26/18 18:00 Temperature Pulse Rate 95 H 88 100 H Respiratory Rate Blood Pressure Pulse Oximetry 01/26/18 19:00 01/26/18 20:00 01/26/18 22:06 Temperature 97.4 F L Pulse Rate 96 H 96 H 100 H Respiratory Rate 19 22 Blood Pressure 142/75 H Pulse Oximetry 97 01/26/18 22:08 01/26/18 23:58 01/27/18 00:00 Temperature Pulse Rate Respiratory Rate 16 Blood Pressure 144/76 H Pulse Oximetry 97 01/27/18 02:00 01/27/18 03:00 01/27/18 04:00 Temperature 98.8 F Pulse Rate 89 84 84 Respiratory Rate Blood Pressure 138/89 Pulse Oximetry 01/27/18 04:20 01/27/18 06:00 01/27/18 07:00 Temperature Pulse Rate 86 75 Respiratory Rate 18 Blood Pressure Pulse Oximetry 01/27/18 07:48 01/27/18 08:00 01/27/18 08:38 Temperature 97.9 F Pulse Rate 84 84 Respiratory Rate 14 14 Blood Pressure 136/78 Pulse Oximetry 97 01/27/18 09:00 01/27/18 10:00 01/27/18 10:25 Temperature Pulse Rate 88 92 H 90 Respiratory Rate 18 Blood Pressure Pulse Oximetry 01/27/18 10:27 01/27/18 11:00 Temperature Pulse Rate 68 Respiratory Rate Blood Pressure Pulse Oximetry 97 Intake & Output 01/26/18 01/27/18 01/27/18 18:59 06:59 18:59 Intake Total 840 / 840 700 / 700 Output Total 820 / 820 1200 / 1200 Balance 20 / 20 -500 / -500 Weight 92.7 kg Intake: Oral 840 / 840 700 / 700 Output: Urine 820 / 820 1200 / 1200 Other: Date of Last Bowel Movement 01/26/18 01/26/18 GENERAL: WBWN NAD SKIN: Warm and dry. HEAD: Normocephalic. EYES: No scleral icterus. No injection or drainage. NECK: Supple, trachea midline. No JVD or lymphadenopathy. CARDIOVASCULAR: Regular rate and rhythm without murmurs, gallops, or rubs. RESPIRATORY: Breath sounds equal bilaterally. No accessory muscle use. GASTROINTESTINAL: Abdomen soft, non-tender, nondistended. MUSCULOSKELETAL: No cyanosis, or edema. Swelling rt foot, non tender BACK: Nontender without obvious deformity. No CVA tenderness. - Urinary Catheter Management Indwelling Urethral Catheter Cath placed during this visit: yes, but has since been removed by the nurse Reason for continuing: Decision to DC catheter Insertion date: 01/05/18 Insertion time: 22:00 Removal date: 01/09/18 Removal time: 11:00 Straight Cath placed during this visit: yes, but has since been removed by the nurse Reason for continuing: Acute urinary retention Insertion date: 01/05/18 Insertion time: 17:00 Removal date: 01/05/18 Removal time: 17:08 Assessment and Plan - Plan IMPRESSION: 1. Right lung endobronchial mass, .s/p RULobectomy SQ, cell ca lung and Adenocarcinoma 2. Chronic obstructive pulmonary disease. 3. Peripheral artery disease, status post operative procedure done. 4. Nicotine abuse. 5. History of alcohol abuse. 6. The patient is homeless. PLAN: Aerosol nebs Prednisone 40 mg daily. Supplement 02 plans to start Chemo per Oncology Elevate rt foot while sitting.
[2018-01-27] MEDS: Enoxaparin Inj 30 MG/0.3 ML Syringe SQ SCH (14:18)
[2018-01-28] MEDS: Temazepam 15 MG Capsule PO PRN
[2018-01-28] MEDS: predniSONE 10 MG Tablet PO SCH (09:00)
[2018-01-28] MEDS: guaiFENesin 600 MG ER Tablet PO SCH ×2 (09:00→20:37)
[2018-01-28] MEDS: Senna/Docusate Sodium 8.6/50 MG Tablet PO SCH ×2 (09:01→20:36)
[2018-01-28] MEDS: Budesonide-Formoterol 160/4.5 MCG 6 GM Inhaler INH SCH ×2 (09:02→20:37)
--- NOTE | 2018-01-28 12:53 | P.PN ---
Subjective Interval history: no complains good po intake Physical Exam Vital signs: Vital Signs 01/27/18 14:00 01/27/18 14:29 01/27/18 14:48 Temperature Pulse Rate 96 H 96 H Respiratory Rate 16 Blood Pressure Pulse Oximetry 01/27/18 16:00 01/27/18 16:40 01/27/18 17:34 Temperature 98.1 F Pulse Rate 96 H 90 96 H Respiratory Rate 15 Blood Pressure 143/76 H Pulse Oximetry 97 01/27/18 19:00 01/27/18 20:00 01/27/18 21:00 Temperature 96.7 F L Pulse Rate 85 91 H 88 Respiratory Rate 20 Blood Pressure 151/81 H Pulse Oximetry 97 01/27/18 22:00 01/27/18 23:00 01/28/18 00:00 Temperature 97.4 F L Pulse Rate 88 85 78 Respiratory Rate 18 Blood Pressure 132/79 Pulse Oximetry 97 01/28/18 01:00 01/28/18 02:00 01/28/18 03:00 Temperature Pulse Rate 86 77 80 Respiratory Rate Blood Pressure Pulse Oximetry 01/28/18 04:00 01/28/18 05:00 01/28/18 06:00 Temperature 97.6 F Pulse Rate 81 78 79 Respiratory Rate 16 Blood Pressure 143/77 H Pulse Oximetry 96 01/28/18 07:00 01/28/18 08:00 01/28/18 11:23 Temperature 97.9 F 97.7 F Pulse Rate 90 90 88 Respiratory Rate 16 20 Blood Pressure 140/77 131/75 Pulse Oximetry 96 95 Intake & Output 01/27/18 01/28/18 01/28/18 18:59 06:59 18:59 Intake Total 820 / 820 1060 / 1060 Output Total 650 / 650 0 / 0 Balance 170 / 170 1060 / 1060 Weight 93 kg Intake: Oral 820 / 820 360 / 360 Anesthesia Amount 700 / 700 Output: Urine 650 / 650 Stool 0 / 0 Other: # Voids 2 Date of Last Bowel Movement 01/27/18 Narrative: awake and alert, no acute distress, NC anicteric no nuchal rigidity decreased breath sounds, no rales, no wheezes, no rhonchi abdomen soft, nontender LE- right foot swelling- decrease- no erythema, good peripheral pulses neuro exam- unremarkable - Urinary Catheter Management Indwelling Urethral Catheter Cath placed during this visit: yes, but has since been removed by the nurse Reason for continuing: Decision to DC catheter Insertion date: 01/05/18 Insertion time: 22:00 Removal date: 01/09/18 Removal time: 11:00 Straight Cath placed during this visit: yes, but has since been removed by the nurse Reason for continuing: Acute urinary retention Insertion date: 01/05/18 Insertion time: 17:00 Removal date: 01/05/18 Removal time: 17:08 Results - Labs CBC & Chem 7: 01/25/18 05:22 01/23/18 16:00 - Procedures Date of procedure: 01/04/18 Anesthesia: GETA Surgeon: Zaida Serrano MD Operation and Findings: PREOPERATIVE DIAGNOSIS 1. Right Upper lobe Lung Mass 2. Right upper lobe endobronchial obstruction with complete collapse 3. COPD POSTOPERATIVE DIAGNOSIS same PROCEDURES 1. Right posterolateral Muscle Sparing Thoracotomy 2. Right Upper lobectomy 3. Mediastinal Lymph Node Dissection 4. 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 status post Right posterolateral Muscle sparing thoracotomy, Right upper lobectomy, Mediastinal lymph node dissection, intercostal nerve block. 01/04/18 Per clinical appeals specialist he will need Chemoradiation therapy mid January 2018. starting 4 weeks after surgery 01/04 to last 7 weeks home situation- patient homeless- needs to be in a safe/secure environment if therapy is to be started 2. PAD/left Lower extremity revascularization, management as per Vascular surgery Continue Plavix 75 mg and Aspirin 81 mg daily, anticoagulation as per Cardiothoracic surgery. 3. Chronic Respiratory failure/COPD/Right lower lung collapse Bronchodilator, Mucolytic incentive spirometry, prednisone 40 mg daily sine . - gradual taper decrease to 30 mg daily 01/26 Appreciate input from pulmonary medicine 4. Alcohol abuse History of alcohol withdrawal CIWA protocol, No signs of withdrawal. - motivated witha bstinence 5. Tobacco abuse: Smoking cessation counseling provided 6. Hypertension controlled. 7. Urinary retention-resolved and continue Flomax . 8. Abnormal urinalysis: s/p Zosyn. 9. Right foot swollen-improving Continue with conservative treatment Vascular surgery following CM consult for update- regarding DC plans - homeless- needs combined radiation and chemotherapy for 7 weeks- till february -needs a safe discharge plan to complete therapy
--- NOTE | 2018-01-28 14:32 | P.PNPL ---
Subjective Interval history: 62 YOWM with COPD,RUL endobronchial mass, PAD No Fever No CP Bx sq cell ca with adenocarcinoma Still has swelling rt foor, no pain Physical Exam Vital signs: Vital Signs 01/27/18 14:48 01/27/18 16:00 01/27/18 16:40 Temperature 98.1 F Pulse Rate 96 H 90 Respiratory Rate 16 15 Blood Pressure 143/76 H Pulse Oximetry 97 01/27/18 17:34 01/27/18 19:00 01/27/18 20:00 Temperature 96.7 F L Pulse Rate 96 H 85 91 H Respiratory Rate 20 Blood Pressure 151/81 H Pulse Oximetry 97 01/27/18 21:00 01/27/18 22:00 01/27/18 23:00 Temperature Pulse Rate 88 88 85 Respiratory Rate Blood Pressure Pulse Oximetry 01/28/18 00:00 01/28/18 01:00 01/28/18 02:00 Temperature 97.4 F L Pulse Rate 78 86 77 Respiratory Rate 18 Blood Pressure 132/79 Pulse Oximetry 97 01/28/18 03:00 01/28/18 04:00 01/28/18 05:00 Temperature 97.6 F Pulse Rate 80 81 78 Respiratory Rate 16 Blood Pressure 143/77 H Pulse Oximetry 96 01/28/18 06:00 01/28/18 07:00 01/28/18 08:00 Temperature 97.9 F Pulse Rate 79 90 90 Respiratory Rate 16 Blood Pressure 140/77 Pulse Oximetry 96 01/28/18 11:23 Temperature 97.7 F Pulse Rate 88 Respiratory Rate 20 Blood Pressure 131/75 Pulse Oximetry 95 Intake & Output 01/27/18 01/28/18 01/28/18 18:59 06:59 18:59 Intake Total 820 / 820 1060 / 1060 Output Total 650 / 650 0 / 0 Balance 170 / 170 1060 / 1060 Weight 93 kg Intake: Oral 820 / 820 360 / 360 Anesthesia Amount 700 / 700 Output: Urine 650 / 650 Stool 0 / 0 Other: # Voids 2 Date of Last Bowel Movement 01/27/18 GENERAL: WBWN NAD SKIN: Warm and dry. HEAD: Normocephalic. EYES: No scleral icterus. No injection or drainage. NECK: Supple, trachea midline. No JVD or lymphadenopathy. CARDIOVASCULAR: Regular rate and rhythm without murmurs, gallops, or rubs. RESPIRATORY: Breath sounds equal bilaterally. No accessory muscle use. GASTROINTESTINAL: Abdomen soft, non-tender, nondistended. MUSCULOSKELETAL: No cyanosis, or edema. Swelling rt foot BACK: Nontender without obvious deformity. No CVA tenderness. - Urinary Catheter Management Indwelling Urethral Catheter Cath placed during this visit: yes, but has since been removed by the nurse Reason for continuing: Decision to DC catheter Insertion date: 01/05/18 Insertion time: 22:00 Removal date: 01/09/18 Removal time: 11:00 Straight Cath placed during this visit: yes, but has since been removed by the nurse Reason for continuing: Acute urinary retention Insertion date: 01/05/18 Insertion time: 17:00 Removal date: 01/05/18 Removal time: 17:08 Assessment and Plan - Plan IMPRESSION: 1. Right lung endobronchial mass, .s/p RULobectomy SQ, cell ca lung and Adenocarcinoma 2. Chronic obstructive pulmonary disease. 3. Peripheral artery disease, status post operative procedure done. 4. Nicotine abuse. 5. History of alcohol abuse. 6. The patient is homeless. PLAN: Aerosol nebs Prednisone 40 mg daily. Supplement 02 plans to start Chemo per Oncology Elevate rt foot while sitting.
[2018-01-28] MEDS: Enoxaparin Inj 30 MG/0.3 ML Syringe SQ SCH (15:52)
[2018-01-29] MEDS: Senna/Docusate Sodium 8.6/50 MG Tablet PO SCH ×2 (09:34→20:32)
[2018-01-29] MEDS: guaiFENesin 600 MG ER Tablet PO SCH ×2 (09:34→20:32)
[2018-01-29] MEDS: Budesonide-Formoterol 160/4.5 MCG 6 GM Inhaler INH SCH ×2 (09:35→20:33)
[2018-01-29] MEDS: predniSONE 10 MG Tablet PO SCH (09:35)
--- NOTE | 2018-01-29 10:29 | P.PN ---
Subjective Interval history: good po good formed stools gaining weight- abdomen- getting bigger Physical Exam Vital signs: Vital Signs 01/28/18 11:00 01/28/18 11:23 01/28/18 12:00 Temperature 97.7 F Pulse Rate 88 88 90 Respiratory Rate 20 Blood Pressure 131/75 Pulse Oximetry 95 01/28/18 13:00 01/28/18 14:00 01/28/18 15:00 Temperature Pulse Rate 96 H 92 H 94 H Respiratory Rate Blood Pressure Pulse Oximetry 01/28/18 16:00 01/28/18 17:00 01/28/18 18:00 Temperature 97.9 F Pulse Rate 90 100 H 100 H Respiratory Rate 20 Blood Pressure 132/78 Pulse Oximetry 97 01/28/18 19:00 01/28/18 20:00 01/28/18 21:00 Temperature 97.7 F Pulse Rate 98 H 92 H 90 Respiratory Rate 18 Blood Pressure 161/88 H Pulse Oximetry 96 01/28/18 22:00 01/28/18 23:00 01/29/18 00:00 Temperature 98.3 F Pulse Rate 88 75 84 Respiratory Rate 18 Blood Pressure 143/76 H Pulse Oximetry 96 01/29/18 01:00 01/29/18 02:00 01/29/18 03:00 Temperature Pulse Rate 80 78 82 Respiratory Rate Blood Pressure Pulse Oximetry 01/29/18 04:00 01/29/18 05:00 01/29/18 06:00 Temperature 98 F Pulse Rate 84 82 77 Respiratory Rate 16 Blood Pressure 148/81 H Pulse Oximetry 95 01/29/18 08:00 01/29/18 09:56 Temperature 97.9 F Pulse Rate 96 H 96 H Respiratory Rate 22 22 Blood Pressure 140/79 Pulse Oximetry 96 Intake & Output 01/28/18 01/29/18 01/29/18 18:59 06:59 18:59 Intake Total 1200 / 1200 720 / 720 Output Total 1100 / 1100 800 / 800 Balance 100 / 100 -80 / -80 Weight 93.1 kg Intake: Oral 1200 / 1200 720 / 720 Output: Urine 1100 / 1100 800 / 800 Other: Date of Last Bowel Movement 01/28/18 01/28/18 01/28/18 # Bowel Movements 2 Narrative: awake and alert, no acute distress, NC anicteric no nuchal rigidity decreased breath sounds, no rales, no wheezes, no rhonchi abdomen soft, nontender, enlarged LE- right foot swelling- decrease- no erythema, good peripheral pulses neuro exam- unremarkable - Urinary Catheter Management Indwelling Urethral Catheter Cath placed during this visit: yes, but has since been removed by the nurse Reason for continuing: Decision to DC catheter Insertion date: 01/05/18 Insertion time: 22:00 Removal date: 01/09/18 Removal time: 11:00 Straight Cath placed during this visit: yes, but has since been removed by the nurse Reason for continuing: Acute urinary retention Insertion date: 01/05/18 Insertion time: 17:00 Removal date: 01/05/18 Removal time: 17:08 Results - Labs CBC & Chem 7: 01/25/18 05:22 01/23/18 16:00 - Procedures Date of procedure: 01/04/18 Anesthesia: GETA Surgeon: Zaida Serrano MD Operation and Findings: PREOPERATIVE DIAGNOSIS 1. Right Upper lobe Lung Mass 2. Right upper lobe endobronchial obstruction with complete collapse 3. COPD POSTOPERATIVE DIAGNOSIS same PROCEDURES 1. Right posterolateral Muscle Sparing Thoracotomy 2. Right Upper lobectomy 3. Mediastinal Lymph Node Dissection 4. 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 status post Right posterolateral Muscle sparing thoracotomy, Right upper lobectomy, Mediastinal lymph node dissection, intercostal nerve block. 01/04/18 Per smart energy specialist he will need Chemoradiation therapy mid January 2018. starting 4 weeks after surgery 01/04 to last 7 weeks home situation- patient homeless- needs to be in a safe/secure environment if therapy is to be started 2. PAD/left Lower extremity revascularization, management as per Vascular surgery Continue Plavix 75 mg and Aspirin 81 mg daily, anticoagulation as per Cardiothoracic surgery. 3. Chronic Respiratory failure/COPD/Right lower lung collapse Bronchodilator, Mucolytic incentive spirometry, prednisone 40 mg daily sine . - gradual taper decrease to 30 mg daily 01/26 Appreciate input from pulmonary medicine 4. Alcohol abuse History of alcohol withdrawal CIWA protocol, No signs of withdrawal. - motivated witha bstinence 5. Tobacco abuse: Smoking cessation counseling provided 6. Hypertension controlled. 7. Urinary retention-resolved and continue Flomax . 8. Abnormal urinalysis: s/p Zosyn. 9. Right foot swollen-improving Continue with conservative treatment Vascular surgery following Abdominal enlargement - patient too good appetite - get echo, abdominal US- check for ascites CM consult for update- regarding DC plans - homeless- needs combined radiation and chemotherapy for 7 weeks- till february -needs a safe discharge plan to complete therapy
--- NOTE | 2018-01-29 11:55 | US ---
EXAM DATE: 01/29/2018 11:42 AM EDT AGE/SEX: 62 years / Male INDICATIONS: Weight gain. CLINICAL DATA: This is the patient's initial encounter. Patient reports that signs and symptoms have been present for 1 day and indicates a pain score of 0/10. MEDICAL/SURGICAL HISTORY: Chronic obstructive pulmonary disease. Pancreatitis. Hypertension. Alcohol abuse. Hyperlipidemia. Mass of the upper right love of lung. MRSA. Tobacco abuse. Homelessne ss. Tonsillectomy. Hand surgery. [place] [facility] [facility] [place] 12/09/2017. [facility], US ABDOMEN COMPLETE, 01/27/2017. . FINDINGS: Masses: None Fluid Collections: No evidence of ascites. Other: None. CONCLUSION: 1. No evidence of ascites. Electronically signed by: Angelica Kong MD 01/29/2018 11:54 AM EDT
[2018-01-29] MEDS: Enoxaparin Inj 30 MG/0.3 ML Syringe SQ SCH (14:00)
--- NOTE | 2018-01-29 15:40 | P.PNPL ---
Subjective Interval history: 62 YOWM with COPD,RUL endobronchial mass, PAD No Fever No CP Bx sq cell ca with adenocarcinoma Still has swelling rt foor, no pain US abd no ascites Physical Exam Vital signs: Vital Signs 01/28/18 16:00 01/28/18 17:00 01/28/18 18:00 Temperature 97.9 F Pulse Rate 90 100 H 100 H Respiratory Rate 20 Blood Pressure 132/78 Pulse Oximetry 97 01/28/18 19:00 01/28/18 20:00 01/28/18 21:00 Temperature 97.7 F Pulse Rate 98 H 92 H 90 Respiratory Rate 18 Blood Pressure 161/88 H Pulse Oximetry 96 01/28/18 22:00 01/28/18 23:00 01/29/18 00:00 Temperature 98.3 F Pulse Rate 88 75 84 Respiratory Rate 18 Blood Pressure 143/76 H Pulse Oximetry 96 01/29/18 01:00 01/29/18 02:00 01/29/18 03:00 Temperature Pulse Rate 80 78 82 Respiratory Rate Blood Pressure Pulse Oximetry 01/29/18 04:00 01/29/18 05:00 01/29/18 06:00 Temperature 98 F Pulse Rate 84 82 77 Respiratory Rate 16 Blood Pressure 148/81 H Pulse Oximetry 95 01/29/18 07:00 01/29/18 08:00 01/29/18 09:56 Temperature 97.9 F Pulse Rate 73 96 H 96 H Respiratory Rate 22 22 Blood Pressure 140/79 Pulse Oximetry 96 01/29/18 11:00 01/29/18 12:00 Temperature 97.1 F L Pulse Rate 96 H 93 H Respiratory Rate 20 Blood Pressure 141/74 H Pulse Oximetry 95 Intake & Output 01/28/18 01/29/18 01/29/18 18:59 06:59 18:59 Intake Total 1200 / 1200 720 / 720 Output Total 1100 / 1100 800 / 800 Balance 100 / 100 -80 / -80 Weight 93.1 kg Intake: Oral 1200 / 1200 720 / 720 Output: Urine 1100 / 1100 800 / 800 Other: Date of Last Bowel Movement 01/28/18 01/28/18 01/28/18 # Bowel Movements 2 GENERAL: WBWn NAD SKIN: Warm and dry. HEAD: Normocephalic. EYES: No scleral icterus. No injection or drainage. NECK: Supple, trachea midline. No JVD or lymphadenopathy. CARDIOVASCULAR: Regular rate and rhythm without murmurs, gallops, or rubs. RESPIRATORY: Breath sounds equal bilaterally. No accessory muscle use. GASTROINTESTINAL: Abdomen soft, non-tender, nondistended. MUSCULOSKELETAL: No cyanosis, or edema. Swelling rt leg BACK: Nontender without obvious deformity. No CVA tenderness. - Urinary Catheter Management Indwelling Urethral Catheter Cath placed during this visit: yes, but has since been removed by the nurse Reason for continuing: Decision to DC catheter Insertion date: 01/05/18 Insertion time: 22:00 Removal date: 01/09/18 Removal time: 11:00 Straight Cath placed during this visit: yes, but has since been removed by the nurse Reason for continuing: Acute urinary retention Insertion date: 01/05/18 Insertion time: 17:00 Removal date: 01/05/18 Removal time: 17:08 Assessment and Plan - Plan IMPRESSION: 1. Right lung endobronchial mass, .s/p RULobectomy SQ, cell ca lung and Adenocarcinoma 2. Chronic obstructive pulmonary disease. 3. Peripheral artery disease, status post operative procedure done. 4. Nicotine abuse. 5. History of alcohol abuse. 6. The patient is homeless. PLAN: Aerosol nebs Prednisone 40 mg daily. Supplement 02 plans to start Chemo per Oncology Elevate rt foot while sitting. Stable from Pulm standpoint
[2018-01-29] MEDS: Temazepam 15 MG Capsule PO PRN (23:37)
[2018-01-30] MEDS: Senna/Docusate Sodium 8.6/50 MG Tablet PO SCH ×2 (08:05→20:48)
[2018-01-30] MEDS: Budesonide-Formoterol 160/4.5 MCG 6 GM Inhaler INH SCH ×2 (08:05→20:49)
[2018-01-30] MEDS: guaiFENesin 600 MG ER Tablet PO SCH ×2 (08:05→20:48)
[2018-01-30] MEDS: predniSONE 10 MG Tablet PO SCH (08:05)
--- NOTE | 2018-01-30 08:47 | P.CON ---
History of Present Illness Service: Radiation oncology Consult date: 01/30/18 Requesting Physician: Franklin Kovacs Reason for Consult: Patient be evaluated for adjuvant postoperative or therapy Primary Care Provider: No Primary Care Physician Family Provider: No Primary Care Physician Chief Complaint: Pain in the Right leg with swelling. Cough. History of Present Illness: 62-year-old white female homeless that states that he came into the emergency room for evaluation regarding issues with shortness of breath and wheezing. During workup patient was noted to have lung mass and has undergone metastatic workup, presentation at tumor board. Patient was then taken for surgical resection on 01/04/2018 and was noted to have a positive lymph node with N2 disease and positive bronchial margins. As a result of this Dr. Kovacs has recommended that the patient consider adjuvant postoperative for concomitant chemoradiotherapy. A consult has been placed for radiation oncology evaluation for adjuvant radiation therapy recommendations. Review of Systems Constitutional: Reports increased appetite, Reports weight gain Eyes: Denies blind spots, Denies blurry vision, Denies bulging eyes, Denies change in vision, Denies double vision, Denies discharge, Denies dry eyes, Denies floaters, Denies irritation, Denies itchy eyes, Denies loss of vision, Denies pain, Denies requires corrective lenses, Denies sensitivity to light, Denies other Comments: Poor dentition Cardiovascular: Reports shortness of breath with activity Respiratory: Denies change in phlegm color, Denies chest congestion, Denies cough, Denies coughing up blood, Denies excessive phlegm production, Denies pain on inspiration, Denies pain with cough, Denies shortness of breath, Denies shortness of breath with activity, Denies snoring, Denies stridor, Denies wheezing, Denies other Gastrointestinal: Denies abdominal pain, Denies belching, Denies black, tarry stools, Denies bloating, Denies bright, red blood in stools, Denies change in bowel habits, Denies constant urge to pass stool, Denies change in stools, Denies coffee ground vomit, Denies constipation, Denies cramping, Denies difficulty swallowing, Denies excessive passing of gas, Denies feeling full early, Denies heartburn, Denies incontinent of stools, Denies loose stools, Denies nausea, Denies pain with swallowing, Denies vomiting, Denies vomiting blood, Denies other Genitourinary: Denies blood in semen, Denies blood in urine, Denies decreased urination, Denies difficulty urinating, Denies difficulty with ejaculations, Denies erectile dysfunction, Denies genital lesions, Denies genital pain, Denies painful urination, Denies side pain, Denies frequent nighttime urination , Denies painful ejaculations, Denies penile discharge, Denies scrotal swelling , Denies testicle lump, Denies testicle pain, Denies urinary frequency, Denies urinary hesitancy, Denies urinary incontinence, Denies urinary urgency, Denies other Musculoskeletal: Denies abnormal walking, Denies back pain, Denies body aches, Denies decreased muscle mass, Denies deformity, Denies joint pain, Denies joint swelling, Denies limited joint movement, Denies loss of height, Denies muscle cramps, Denies muscle weakness, Denies neck pain, Denies numbness, Denies radiating pain into limb, Denies stiffness, Denies tingling, Denies other Skin/Breast: Denies acne, Denies bleeding lesions, Denies boil, Denies breast swelling, Denies breast skin changes, Denies breast pain, Denies breast lump, Denies change in breast shape, Denies change in hair, Denies change in skin color, Denies changing lesions, Denies dry skin, Denies excessive hair growth, Denies hair loss, Denies itching, Denies lesions, Denies nail changes, Denies new lesions, Denies nipple discharge, Denies non-healing lesions, Denies redness , Denies sensitivity to light, Denies rash, Denies skin pain, Denies skin ulcer , Denies sores, Denies stretch samuel, Denies unusual bruising, Denies wounds, Denies yellowing of the skin, Denies other Neurologic: Denies abnormal hearing, Denies abnormal movements, Denies abnormal speech, Denies abnormal walking, Denies behavioral changes, Denies burning sensations, Denies confusion, Denies dizziness, Denies fainting, Denies frequent falls, Denies headache(s), Denies lack of coordination, Denies localized weakness, Denies loss of vision, Denies memory loss, Denies numbness, Denies other visual disturbances, Denies radiating pain, Denies restless legs, Denies convulsions, Denies seizure-like activity, Denies sensory deficit, Denies tingling, Denies tingling/numbness/burning sensations, Denies tremor(s), Denies unsteadiness, Denies weakness, Denies other Psychiatric: Denies abnormal sleep pattern, Denies anxiety, Denies behavioral changes, Denies change in appetite, Denies change in sex drive, Denies confusion , Denies depression, Denies difficulty concentrating, Denies hearing things others do not hear, Denies hopelessness, Denies irritability, Denies lack of enjoyment, Denies memory loss, Denies mood swings, Denies panic attacks, Denies paranoia, Denies seeing things others do not see, Denies sensing things others do not sense, Denies tactile hallucinations, Denies thoughts of hurting/killing others, Denies thoughts of hurting/killing yourself, Denies other Endocrine: Denies cold intolerance, Denies excessive sweating, Denies flushing, Denies heat intolerance, Denies increased hunger, Denies increased thirst, Denies increased urination, Denies rapid, pounding, or irregular heartbeat, Denies other Hematologic/Lymphatic: Denies easy bleeding, Denies easy bruising, Denies enlarged lymph nodes, Denies other Allergic/Immunologic: Denies GI upset with certain foods, Denies hives, Denies itchy eyes, Denies lip swelling, Denies seasonal runny nose, Denies throat swelling, Denies tongue swelling, Denies wheezing, Denies other PMFSH - History History Provided By: Patient - Medical History Medical History: Medical History (Last Reviewed 01/23/18 @ 07:22 by Alice Hi) Mass of upper lobe of right lung Alcohol abuse COPD (chronic obstructive pulmonary disease) Femoral artery occlusion, right H/O chronic pancreatitis Homelessness Hyperlipemia Hypertension MRSA (methicillin resistant Staphylococcus aureus) Tobacco abuse - Surgical History Surgical History: Surgical History (Last Reviewed 01/23/18 @ 07:22 by Alice Hi) 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 H/O hand surgery History of tonsillectomy Status post bilateral LASIK surgery - Family History Family History: Family History (Last Reviewed 01/23/18 @ 07:22 by Alice Hi) Mother Unknown family medical history Father Cancer - Tobacco History Second Hand Smoke Exposure: No Tobacco Use In Past 30 Days: Yes Smoking Status: Current every day smoker Tobacco Type: Cigarettes Packs Per Day: 1 years: 35 - Alcohol History How Often Do You Have a Drink Containing Alcohol: 4 or more times a week - Substance Use History Substance History: No History of Abuse - Substance Use Type Marijuana Status: Active Route Used: Inhalation Last Used: 09/24/2017 Comment: patient utilizes carmen for pain control - Travel History Recent Travel in the [place] Within the Last 8 Weeks: No Recent Travel Out of the Country Within the Last 8 Weeks: No Medications and Allergies Active Medications: Active Medications Acetaminophen (Tylenol) 650 mg PO Q4H PRN PRN Reason: TEMPERATURE > 101 F Hydrocodone Bitart/Acetaminophen ([place] 5/325) 1 tab PO Q4H PRN PRN Reason: pain 4-10 Last Admin: 01/30/18 05:53 Dose: 1 tab Al Hydroxide/Mg Hydroxide (Milk Of Magnyanira Liq) 30 ml PO Q12H PRN PRN Reason: Mild Constipation Albuterol (Ventolin Hfa Inh) 2 puff INH Q6H PRN PRN Reason: Shortness Of Breath Or Wheezing Last Admin: 01/26/18 20:50 Dose: 2 puff Albuterol (Duoneb Neb (Prn)) 1 ampul NEB Q6HR NEB PRN PRN Reason: SOB/WHEEZING Last Admin: 01/29/18 09:47 Dose: 1 ampul Aspirin (Ecotrin) 81 mg PO DAILY [facility] Last Admin: 01/30/18 08:05 Dose: 81 mg Bisacodyl (Dulcolax Supp) 10 mg RECTAL DAILY PRN PRN Reason: SEVERE CONSITIPATION Budesonide/Formoterol Fumarate (Symbicort 160/4.5 Mcg Inh) 2 puff INH BID [facility] Last Admin: 01/30/18 08:05 Dose: 2 puff Clopidogrel Bisulfate (Plavix) 75 mg PO DAILY [facility] Last Admin: 01/30/18 08:04 Dose: 75 mg Diphenhydramine HCl (Benadryl) 25 mg PO Q6H PRN PRN Reason: for itching Last Admin: 01/28/18 00:00 Dose: 25 mg Diphenhydramine HCl (Benadryl Inj) 25 mg IV.PUSH Q6H PRN PRN Reason: for itching Enoxaparin Sodium (Lovenox Inj) 30 mg SQ Q24H [facility] Last Admin: 01/29/18 14:00 Dose: 30 mg Flumazenil (Romazecon Inj) 0.2 mg IV.PUSH Q1M PRN PRN Reason: OVERSEDATION Guaifenesin (Mucinex Er) 600 mg PO BID [facility] Last Admin: 01/30/18 08:05 Dose: 600 mg Lactulose (Lactulose Liq) 30 ml PO DAILY PRN PRN Reason: SEVERE CONSITIPATION Naloxone HCl (Narcan Inj) 0.4 mg IV.PUSH UNSCH PRN PRN Reason: Resp rate < 10 Ondansetron HCl (Zofran Inj) 4 mg IV.PUSH Q6H PRN PRN Reason: NAUSEA OR VOMITING Last Admin: 01/11/18 13:13 Dose: 4 mg Pantoprazole Sodium (Protonix) 40 mg PO HS [facility] Last Admin: 01/29/18 20:32 Dose: 40 mg Pravastatin Sodium (Pravachol) 40 mg PO DAILY [facility] Last Admin: 01/30/18 08:05 Dose: 40 mg Prednisone (Deltasone) 30 mg PO DAILY [facility] Last Admin: 01/30/18 08:05 Dose: 30 mg Senna/Docusate Sodium (Whit-Colace) 1 tab PO BID [facility] Last Admin: 01/30/18 08:05 Dose: 1 tab Sennosides (Senokot) 17.2 mg PO Q12H PRN PRN Reason: Moderate Constipation Sodium Chloride (Ns Flush) 2 ml IV.FLUSH BID [facility] Last Admin: 01/30/18 08:05 Dose: 2 ml Sodium Chloride (Ns Flush) 2 ml IV.FLUSH UNSCH PRN PRN Reason: FLUSH AFTER USING IV ACCESS Last Admin: 01/05/18 21:14 Dose: 2 ml Tamsulosin HCl (Flomax) 0.4 mg PO DAILY [facility] Last Admin: 01/30/18 08:05 Dose: 0.4 mg Temazepam (Restoril) 15 mg PO HS PRN PRN Reason: INSOMNIA Last Admin: 01/29/18 23:37 Dose: 15 mg Allergies Allergy/AdvReac Type Severity Reaction Status Date / Time codeine AdvReac Severe Hives Verified 12/27/17 20:40 Home Medications Medication Instructions Recorded Confirmed Type albuterol sulfate [ProAir HFA] 2 puff INHALATION Q6H PRN 12/07/17 12/26/17 History fluticasone-salmeterol [Advair 250 mg INHALATION QID 12/07/17 12/26/17 History Diskus] lisinopril 10 mg PO DAILY 12/07/17 12/26/17 History lovastatin 40 mg PO DAILY 12/07/17 12/26/17 History Physical Exam Vital signs: Vital Signs 01/29/18 09:00 01/29/18 09:56 01/29/18 10:00 Temperature Pulse Rate 94 H 96 H 96 H Respiratory Rate 22 Blood Pressure Pulse Oximetry 01/29/18 11:00 01/29/18 12:00 01/29/18 13:00 Temperature 97.1 F L Pulse Rate 96 H 92 H 100 H Respiratory Rate 20 Blood Pressure 141/74 H Pulse Oximetry 95 01/29/18 14:00 01/29/18 15:00 01/29/18 16:00 Temperature 97.8 F Pulse Rate 96 H 91 H 90 Respiratory Rate 20 Blood Pressure 139/79 Pulse Oximetry 97 01/29/18 17:00 01/29/18 19:00 01/29/18 20:00 Temperature Pulse Rate 92 H 90 90 Respiratory Rate Blood Pressure Pulse Oximetry 01/29/18 20:15 01/29/18 20:32 01/29/18 21:00 Temperature 97.6 F Pulse Rate 95 H 86 Respiratory Rate 19 19 Blood Pressure 153/86 H Pulse Oximetry 95 01/29/18 22:00 01/29/18 23:00 01/29/18 23:34 Temperature 97.6 F Pulse Rate 89 89 86 Respiratory Rate 18 Blood Pressure 145/81 H Pulse Oximetry 96 01/30/18 00:00 01/30/18 00:30 01/30/18 01:00 Temperature Pulse Rate 80 86 Respiratory Rate 18 Blood Pressure Pulse Oximetry 01/30/18 02:00 01/30/18 03:00 01/30/18 03:15 Temperature 97.8 F Pulse Rate 80 74 68 Respiratory Rate 17 Blood Pressure 141/76 H Pulse Oximetry 98 01/30/18 04:00 01/30/18 05:00 01/30/18 06:00 Temperature Pulse Rate 80 81 79 Respiratory Rate Blood Pressure Pulse Oximetry 01/30/18 07:00 Temperature Pulse Rate 81 Respiratory Rate Blood Pressure Pulse Oximetry Intake & Output 01/29/18 01/30/18 01/30/18 18:59 06:59 18:59 Intake Total 1260 / 1260 560 / 560 Output Total 900 / 900 1025 / 1025 Balance 360 / 360 -465 / -465 Weight 93 kg Intake: Oral 1260 / 1260 560 / 560 Output: Urine 900 / 900 1025 / 1025 Other: Date of Last Bowel Movement 01/29/18 01/29/18 # Bowel Movements 1 - Constitutional no acute distress, obese, cooperative - Routine HEENT Exam Head: Present: normocephalic, atraumatic Eye: Present: EOMI ENT: Present: mucous membranes moist - Routine Neck Exam Present: supple, trachea midline - Routine Respiratory Exam Present: decreased breath sounds, diminished air movement Comments: To auscultation her lungs were clear to auscultation but there is decreased ventilatory respiratory effort on the right mid to upper lung. - Routine Cardiovascular Exam Comments: Heart was regular in rate and rhythm with no murmurs. - Routine Abdominal Exam Present: soft - Routine Extremities Exam Present: edema Comments: There is lower extremity edema of 2+ on the right lower extremity at the ankle and the foot and there is 1+ edema of the left foot from the ankle below. There is no cyanosis bilaterally. No clinical symptoms or signs of DVT. - Routine Skin Exam Present: intact, dry - Routine Neurological Exam Present: alert, oriented X3, moving all extremities, normal tone, vision grossly intact, hearing grossly intact, normal speech - Routine Psychiatric Exam Present: normal affect, normal thought process, cooperative, good insight, good judgment - Urinary Catheter Management Indwelling Urethral Catheter Cath placed during this visit: yes, but has since been removed by the nurse Reason for continuing: Decision to DC catheter Insertion date: 01/05/18 Insertion time: 22:00 Removal date: 01/09/18 Removal time: 11:00 Straight Cath placed during this visit: yes, but has since been removed by the nurse Reason for continuing: Acute urinary retention Insertion date: 01/05/18 Insertion time: 17:00 Removal date: 01/05/18 Removal time: 17:08 Assessment and Plan - Assessment (1) Endobronchial mass Code(s): R91.8 - Other nonspecific abnormal finding of lung field Status: Acute - Plan PATHOLOGY: RIGHT UPPER LUNG LOBECTOMY SPECIMEN WITH INVASIVE POORLY DIFFERENTIATED SQUAMOUS CELL CARCINOMA INVOLVING BRONCHIAL RESECTION MARGIN AND SEPARATE FOCI OF CARCINOMA EXHIBITING SQUAMOUS AND ADENOCARCINOMA FEATURES WITHIN APICAL SCAR (SEE TUMOR SYNOPSIS. TUMOR SYNOPSIS LUNG: RESECTION. PROCEDURE: LOBECTOMY. SPECIMEN LATERALITY: RIGHT. TUMOR SITE: UPPER LOBE AND LOBAR BRONCHUS. TUMOR SIZE: 2.5 X 2.0 X 1.5 CM. TUMOR FOCALITY: SYNCHRONOUS PRIMARY TUMORS IN THE SAME LOBE. HISTOLOGIC TYPE: INVASIVE SQUAMOUS CELL CARCINOMA, KERATINIZING AND MINIMALLY INVASIVE ADENOCARCINOMA, NON- MUCINOUS. HISTOLOGIC GRADE: MODERATE TO POORLY DIFFERENTIATED (G2-G3). SPREAD THROUGH AIR SPACES: NOT IDENTIFIED. VISCERAL PLEURAL INVASION: NOT IDENTIFIED. LYMPHOVASCULAR INVASION: NOT IDENTIFIED. DIRECT EXTENSION OF ADJACENT STRUCTURES: NO ADJACENT STRUCTURES PRESENT. MARGINS: MARGINS EXAMINED: BRONCHIAL, VASCULAR AND PARENCYMAL. BRONCHIAL MARGIN: INVOLVED BY INVASIVE SQUAMOUS CELL CARCINOMA . VASCULAR MARGIN: UNINVOLVED BY CARCINOMA. PARENCYMAL MARGIN: UNINVOLVED BY INVASIVE CARCINOMA. TREATMENT EFFECT: NO KNOWN PRESURGICAL THERAPY. NUMBER OF LYMPH NODES INVOLVED: 1 PLUS DIRECT EXTENSION OF HILAR LYMPH NODES PRESENT WITH THE RESECTED SPECIMEN. NUMBER OF LYMPH NODES EXAMINED: 7 SPECIFIED DONNA STATIONS EXAMINED: R4 EXTRANODAL EXTENSION: NOT IDENTIFIED. PATHOLOGIC STAGE CLASSIFICATION (pTNM, AJCC 8th Edition): pT1c, pN2, pMX. ADDITIONAL PATHOLOGICAL FINDINGS: RESPIRATORY BRONCHIOLITIS / RESPIRATORY BRONCHIOLITIS INTERSTITIAL LUNG DISEASE AND ATYPICAL ADENOMATOUS HYPERPLASIA. #2- METASTATIC POORLY DIFFERENTIATED SQUAMOUS CELL CARCINOMA PRESENT IN ONE OF FIVE LYMPH NODES (MACROMETASTASIS WITHOUT PERINODAL EXTENSION), CLINICALLY R4. 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 Patient been evaluated for adjuvant postoperative radiotherapy. Plan: I had extensive discussion with the patient regards to his condition. I have discussed this case personally with Dr. Kovacs. I have reviewed his progress note from January of 2018 where he recommends concomitant chemoradiation therapy after recovering from surgery. I advised the patient of the merits of radiation therapy in his current condition. We discussed the possible side effects and complications. Side effects to the lung to include but limited to: Weakness and fatigue, decreased blood counts, erythema the skin , necrosis of skin, pain of the treated area, bone damage and fracture, costochondritis, lung damage, lung fibrosis, lung pneumonitis, the possibility becoming oxygen dependent, the possibility of becoming pulmonary cripple, heart damage, spinal cord damage, difficulty and pain with swallowing, esophageal strictures which may require dilation, brachial plexus damage. After thorough discussion he agreed to move forward with treatments. Patient is to come down to the department for simulation treatment planning. Treatment will be coordinated with Dr. Kovacs. Patient advised if I could be of any further assistance or to please let me know. Dr. Kovacs thank you very much for the referral of this patient and allow me to precipitate in his care. Should you have any further questions or concerns please do not hesitate to contact me.
--- NOTE | 2018-01-30 13:10 | ECHRPT ---
Indication: SHORTNESS OF BREATH CONCLUSIONS In limited views, the left ventricular systolic function is normal with an estimated ejection fracti on in the range of 55-60%. Mild concentric left ventricular hypertrophy. There is trace tricuspid valve regurgitation. BP: / HR: Rhythm: Sinus MEASUREMENTS (Male / Female) Normal Values Technical Quality:Poor 2D ECHO LV Diastolic Diameter PLAX 4.6 cm 4.2 - 5.9 / 3.9 - 5.3 cm LV Systolic Diameter PLAX 3.3 cm IVS Diastolic Thickness 1.2 cm 0.6 - 1.0 / 0.6 - 0.9 cm LVPW Diastolic Thickness 1.2 cm 0.6 - 1.0 / 0.6 - 0.9 cm LV Relative Wall Thickness 0.5 LVOT Diameter 2.3 cm M-MODE Aortic Root Diameter MM 2.8 cm LA Systolic Diameter MM 3.9 cm LA Ao Ratio MM 1.4 AV Cusp Separation MM 2.5 cm DOPPLER AV Peak Velocity 167.0 cm/s AV Peak Gradient 11.2 mmHg LVOT Peak Velocity 120.0 cm/s LVOT Peak Gradient 5.8 mmHg AV Area Cont Eq pk 3.0 cm MV Area PHT 6.9 cm Mitral E Point Velocity 135.0 cm/s Mitral A Point Velocity 130.0 cm/s Mitral E to A Ratio 1.0 TR Peak Velocity 213.0 cm/s TR Peak Gradient 18.1 mmHg Right Atrial Pressure 10.0 mmHg Pulmonary Artery Systolic Pressu 28.1 mmHg Right Ventricular Systolic Press 28.1 mmHg PV Peak Velocity 130.0 cm/s PV Peak Gradient 6.8 mmHg FINDINGS LEFT VENTRICLE In limited views, the left ventricular systolic function is normal with an estimated ejection fracti on in the range of 55-60%. Normal left ventricular size. Mild concentric left ventricular hypertrophy. RIGHT VENTRICLE Normal right ventricular size and systolic function. LEFT ATRIUM The left atrial size is upper limits of normal. RIGHT ATRIUM The right atrial size is normal. ATRIAL SEPTUM Normal atrial septal thickness AORTA The aortic root and proximal ascending aorta are normal in size on limited imaging. MITRAL VALVE Grossly normal mitral valve. No mitral valve stenosis or regurgitation. AORTIC VALVE Trileaflet aortic valve. Aortic valve sclerosis is present. No aortic valve stenosis. No aortic valve regurgitation. TRICUSPID VALVE Grossly normal tricuspid valve. There is trace tricuspid valve regurgitation. PULMONARY VALVE No pulmonary valve regurgitation or stenosis. VESSELS The inferior vena cava is normal in size. PERICARDIUM No pericardial effusion. Vincent G. Sapp DO (Electronically Signed) Final Date:30 January 2018 13:10
--- NOTE | 2018-01-30 13:55 | P.PN ---
Subjective Interval history: good po appetite up and ambualting around his room- easily gets short of breath no wheezing on exam Physical Exam Vital signs: Vital Signs 01/29/18 14:00 01/29/18 15:00 01/29/18 16:00 Temperature 97.8 F Pulse Rate 96 H 91 H 90 Respiratory Rate 20 Blood Pressure 139/79 Pulse Oximetry 97 01/29/18 17:00 01/29/18 19:00 01/29/18 20:00 Temperature Pulse Rate 92 H 90 90 Respiratory Rate Blood Pressure Pulse Oximetry 01/29/18 20:15 01/29/18 20:32 01/29/18 21:00 Temperature 97.6 F Pulse Rate 95 H 86 Respiratory Rate 19 19 Blood Pressure 153/86 H Pulse Oximetry 95 01/29/18 22:00 01/29/18 23:00 01/29/18 23:34 Temperature 97.6 F Pulse Rate 89 89 86 Respiratory Rate 18 Blood Pressure 145/81 H Pulse Oximetry 96 01/30/18 00:00 01/30/18 00:30 01/30/18 01:00 Temperature Pulse Rate 80 86 Respiratory Rate 18 Blood Pressure Pulse Oximetry 01/30/18 02:00 01/30/18 03:00 01/30/18 03:15 Temperature 97.8 F Pulse Rate 80 74 68 Respiratory Rate 17 Blood Pressure 141/76 H Pulse Oximetry 98 01/30/18 04:00 01/30/18 05:00 01/30/18 06:00 Temperature Pulse Rate 80 81 79 Respiratory Rate Blood Pressure Pulse Oximetry 01/30/18 07:00 01/30/18 08:00 01/30/18 09:00 Temperature 98.2 F Pulse Rate 81 81 104 H Respiratory Rate 14 Blood Pressure 136/82 Pulse Oximetry 96 01/30/18 09:55 01/30/18 10:00 01/30/18 10:20 Temperature Pulse Rate 101 H 111 H 102 H Respiratory Rate 22 Blood Pressure Pulse Oximetry 95 01/30/18 10:40 01/30/18 12:00 01/30/18 13:00 Temperature 98.1 F Pulse Rate 97 H 92 H Respiratory Rate 14 18 Blood Pressure 140/67 Pulse Oximetry 96 01/30/18 13:10 Temperature Pulse Rate 92 H Respiratory Rate Blood Pressure Pulse Oximetry Intake & Output 01/29/18 01/30/18 01/30/18 18:59 06:59 18:59 Intake Total 1260 / 1260 560 / 560 Output Total 900 / 900 1025 / 1025 Balance 360 / 360 -465 / -465 Weight 93 kg Intake: Oral 1260 / 1260 560 / 560 Output: Urine 900 / 900 1025 / 1025 Other: Date of Last Bowel Movement 01/29/18 01/29/18 01/29/18 # Bowel Movements 1 Narrative: awake and alert, no acute distress, NC anicteric no nuchal rigidity decreased breath sounds, no rales, no wheezes, no rhonchi abdomen soft, nontender, enlarged LE- + right foot swelling- decrease- no erythema, good peripheral pulses neuro exam- unremarkable - Urinary Catheter Management Indwelling Urethral Catheter Cath placed during this visit: yes, but has since been removed by the nurse Reason for continuing: Decision to DC catheter Insertion date: 01/05/18 Insertion time: 22:00 Removal date: 01/09/18 Removal time: 11:00 Straight Cath placed during this visit: yes, but has since been removed by the nurse Reason for continuing: Acute urinary retention Insertion date: 01/05/18 Insertion time: 17:00 Removal date: 01/05/18 Removal time: 17:08 Results - Labs CBC & Chem 7: 01/25/18 05:22 01/23/18 16:00 - Procedures Date of procedure: 01/04/18 Anesthesia: GETA Surgeon: Zaida Serrano MD Operation and Findings: PREOPERATIVE DIAGNOSIS 1. Right Upper lobe Lung Mass 2. Right upper lobe endobronchial obstruction with complete collapse 3. COPD POSTOPERATIVE DIAGNOSIS same PROCEDURES 1. Right posterolateral Muscle Sparing Thoracotomy 2. Right Upper lobectomy 3. Mediastinal Lymph Node Dissection 4. 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 status post Right posterolateral Muscle sparing thoracotomy, Right upper lobectomy, Mediastinal lymph node dissection, intercostal nerve block. 01/04/18 Per programming specialist he will need Chemoradiation therapy mid January 2018. starting 4 weeks after surgery 01/04 to last 7 weeks home situation- patient homeless- needs to be in a safe/secure environment if therapy is to be started 2. PAD/left Lower extremity revascularization, management as per Vascular surgery Continue Plavix 75 mg and Aspirin 81 mg daily, anticoagulation as per Cardiothoracic surgery. 3. Chronic Respiratory failure/COPD/Right lower lung collapse Bronchodilator, Mucolytic incentive spirometry, prednisone 40 mg daily sine . - gradual taper decrease to 30 mg daily 01/26 decreaset o 20 mg daily 01/31 Appreciate input from pulmonary medicine 4. Alcohol abuse History of alcohol withdrawal CIWA protocol, No signs of withdrawal. - motivated witha bstinence 5. Tobacco abuse: Smoking cessation counseling provided 6. Hypertension controlled. 7. Urinary retention-resolved and continue Flomax . 8. Abnormal urinalysis: s/p Zosyn. 9. Right foot swollen-improving Echo good Continue with conservative treatment Vascular surgery following 10. Abdominal enlargement - patient too good appetite - echo- unreamrakbel , abdominal US-negative for ascites CM consult for update- regarding DC plans - homeless- needs combined radiation and chemotherapy for 7 weeks- till february -needs a safe discharge plan to complete therapy
[2018-01-30] MEDS: Enoxaparin Inj 30 MG/0.3 ML Syringe SQ SCH (14:28)
--- NOTE | 2018-01-30 18:17 | P.PNPL ---
Subjective Interval history: 62 YOWM with COPD,RUL endobronchial mass, PAD No Fever No CP Bx sq cell ca with adenocarcinoma Still has swelling rt foor, no pain Seen by Rad Onc Physical Exam Vital signs: Vital Signs 01/29/18 19:00 01/29/18 20:00 01/29/18 20:15 Temperature 97.6 F Pulse Rate 90 90 95 H Respiratory Rate 19 Blood Pressure 153/86 H Pulse Oximetry 95 01/29/18 20:32 01/29/18 21:00 01/29/18 22:00 Temperature Pulse Rate 86 89 Respiratory Rate 19 Blood Pressure Pulse Oximetry 01/29/18 23:00 01/29/18 23:34 01/30/18 00:00 Temperature 97.6 F Pulse Rate 89 86 80 Respiratory Rate 18 Blood Pressure 145/81 H Pulse Oximetry 96 01/30/18 00:30 01/30/18 01:00 01/30/18 02:00 Temperature Pulse Rate 86 80 Respiratory Rate 18 Blood Pressure Pulse Oximetry 01/30/18 03:00 01/30/18 03:15 01/30/18 04:00 Temperature 97.8 F Pulse Rate 74 68 80 Respiratory Rate 17 Blood Pressure 141/76 H Pulse Oximetry 98 01/30/18 05:00 01/30/18 06:00 01/30/18 07:00 Temperature Pulse Rate 81 79 81 Respiratory Rate Blood Pressure Pulse Oximetry 01/30/18 08:00 01/30/18 09:00 01/30/18 09:55 Temperature 98.2 F Pulse Rate 81 104 H 101 H Respiratory Rate 14 22 Blood Pressure 136/82 Pulse Oximetry 96 95 01/30/18 10:00 01/30/18 10:20 01/30/18 10:40 Temperature Pulse Rate 111 H 102 H Respiratory Rate 14 Blood Pressure Pulse Oximetry 01/30/18 12:00 01/30/18 13:00 01/30/18 13:10 Temperature 98.1 F Pulse Rate 97 H 92 H 92 H Respiratory Rate 18 Blood Pressure 140/67 Pulse Oximetry 96 01/30/18 13:56 01/30/18 16:00 01/30/18 17:00 Temperature 98.4 F Pulse Rate 99 H 98 H 100 H Respiratory Rate 19 Blood Pressure 136/64 Pulse Oximetry 95 01/30/18 18:00 Temperature Pulse Rate 104 H Respiratory Rate Blood Pressure Pulse Oximetry Intake & Output 01/29/18 01/30/18 01/30/18 18:59 06:59 18:59 Intake Total 1260 / 1260 560 / 560 720 / 720 Output Total 900 / 900 1025 / 1025 1250 / 1250 Balance 360 / 360 -465 / -465 -530 / -530 Weight 93 kg Intake: Oral 1260 / 1260 560 / 560 720 / 720 Output: Urine 900 / 900 1025 / 1025 1250 / 1250 Other: Date of Last Bowel Movement 01/29/18 01/29/18 01/29/18 # Bowel Movements 1 GENERAL: WBWn NAD SKIN: Warm and dry. HEAD: Normocephalic. EYES: No scleral icterus. No injection or drainage. NECK: Supple, trachea midline. No JVD or lymphadenopathy. CARDIOVASCULAR: Regular rate and rhythm without murmurs, gallops, or rubs. RESPIRATORY: Breath sounds equal bilaterally. No accessory muscle use. GASTROINTESTINAL: Abdomen soft, non-tender, nondistended. MUSCULOSKELETAL: No cyanosis, or edema. Swelling rt leg BACK: Nontender without obvious deformity. No CVA tenderness. - Urinary Catheter Management Indwelling Urethral Catheter Cath placed during this visit: yes, but has since been removed by the nurse Reason for continuing: Decision to DC catheter Insertion date: 01/05/18 Insertion time: 22:00 Removal date: 01/09/18 Removal time: 11:00 Straight Cath placed during this visit: yes, but has since been removed by the nurse Reason for continuing: Acute urinary retention Insertion date: 01/05/18 Insertion time: 17:00 Removal date: 01/05/18 Removal time: 17:08 Assessment and Plan - Plan IMPRESSION: 1. Right lung endobronchial mass, .s/p RULobectomy SQ, cell ca lung and Adenocarcinoma 2. Chronic obstructive pulmonary disease. 3. Peripheral artery disease, status post operative procedure done. 4. Nicotine abuse. 5. History of alcohol abuse. 6. The patient is homeless. PLAN: Aerosol nebs Prednisone 40 mg daily. Supplement 02 plans to start Chemo per Oncology Elevate rt foot while sitting. For radiation mapping in AM
[2018-01-30] MEDS: Temazepam 15 MG Capsule PO PRN (23:03)
[2018-01-31] MEDS: Senna/Docusate Sodium 8.6/50 MG Tablet PO SCH ×2 (10:23→20:21)
[2018-01-31] MEDS: predniSONE 10 MG Tablet PO SCH (10:23)
[2018-01-31] MEDS: guaiFENesin 600 MG ER Tablet PO SCH (10:24)
[2018-01-31] MEDS: Budesonide-Formoterol 160/4.5 MCG 6 GM Inhaler INH SCH ×2 (10:25→20:22)
--- NOTE | 2018-01-31 13:11 | P.PN ---
Subjective Interval history: no complains uop and ambulating good po Physical Exam Vital signs: Vital Signs 01/30/18 13:56 01/30/18 16:00 01/30/18 17:00 Temperature 98.4 F Pulse Rate 99 H 98 H 100 H Respiratory Rate 19 Blood Pressure 136/64 Pulse Oximetry 95 01/30/18 18:00 01/30/18 19:00 01/30/18 20:00 Temperature Pulse Rate 104 H 97 H 94 H Respiratory Rate Blood Pressure Pulse Oximetry 01/30/18 21:00 01/30/18 22:00 01/30/18 23:00 Temperature 98.2 F Pulse Rate 92 H 86 90 Respiratory Rate 16 Blood Pressure 132/75 Pulse Oximetry 96 01/31/18 00:00 01/31/18 00:02 01/31/18 01:00 Temperature Pulse Rate 83 78 98 H Respiratory Rate 20 Blood Pressure Pulse Oximetry 01/31/18 02:00 01/31/18 03:00 01/31/18 04:00 Temperature 97.6 F Pulse Rate 90 90 81 Respiratory Rate 16 Blood Pressure 130/73 Pulse Oximetry 94 L 01/31/18 05:00 01/31/18 06:00 01/31/18 07:00 Temperature 98.5 F Pulse Rate 88 87 84 Respiratory Rate 20 Blood Pressure 139/78 Pulse Oximetry 95 Intake & Output 01/30/18 01/31/18 01/31/18 18:59 06:59 18:59 Intake Total 720 / 720 600 / 600 Output Total 1250 / 1250 400 / 400 Balance -530 / -530 200 / 200 Weight 94.5 kg Intake: Oral 720 / 720 600 / 600 Output: Urine 1250 / 1250 400 / 400 Other: Date of Last Bowel Movement 01/29/18 01/29/18 01/30/18 Narrative: awake and alert, no acute distress, NC anicteric no nuchal rigidity decreased breath sounds, no rales, no wheezes, no rhonchi abdomen soft, nontender, enlarged LE- + right foot swelling- decrease- no erythema, good peripheral pulses neuro exam- unremarkable - Urinary Catheter Management Indwelling Urethral Catheter Cath placed during this visit: yes, but has since been removed by the nurse Reason for continuing: Decision to DC catheter Insertion date: 01/05/18 Insertion time: 22:00 Removal date: 01/09/18 Removal time: 11:00 Straight Cath placed during this visit: yes, but has since been removed by the nurse Reason for continuing: Acute urinary retention Insertion date: 01/05/18 Insertion time: 17:00 Removal date: 01/05/18 Removal time: 17:08 Results - Labs CBC & Chem 7: 01/25/18 05:22 01/23/18 16:00 - Procedures Date of procedure: 01/04/18 Anesthesia: GETA Surgeon: Zaida Serrano MD Operation and Findings: PREOPERATIVE DIAGNOSIS 1. Right Upper lobe Lung Mass 2. Right upper lobe endobronchial obstruction with complete collapse 3. COPD POSTOPERATIVE DIAGNOSIS same PROCEDURES 1. Right posterolateral Muscle Sparing Thoracotomy 2. Right Upper lobectomy 3. Mediastinal Lymph Node Dissection 4. 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 status post Right posterolateral Muscle sparing thoracotomy, Right upper lobectomy, Mediastinal lymph node dissection, intercostal nerve block. 01/04/18 Per service specialist he will need Chemoradiation therapy mid January 2018. starting 4 weeks after surgery 01/04 to last 7 weeks home situation- patient homeless- needs to be in a safe/secure environment if therapy is to be started Had radiation simulation today- 01/31 2. PAD/left Lower extremity revascularization, management as per Vascular surgery Continue Plavix 75 mg and Aspirin 81 mg daily, anticoagulation as per Cardiothoracic surgery. 3. Chronic Respiratory failure/COPD/Right lower lung collapse Bronchodilator, Mucolytic incentive spirometry, prednisone 40 mg daily sine . - gradual taper decrease to 30 mg daily 01/26 decreaset o 20 mg daily 01/31 Appreciate input from pulmonary medicine 4. Alcohol abuse History of alcohol withdrawal CIWA protocol, No signs of withdrawal. - motivated witha bstinence 5. Tobacco abuse: Smoking cessation counseling provided 6. Hypertension controlled. 7. Urinary retention-resolved and continue Flomax . 8. Abnormal urinalysis: s/p Zosyn. 9. Right foot swollen-improving Echo good Continue with conservative treatment Vascular surgery following 10. Abdominal enlargement - patient too good appetite - echo- unreamrakble , abdominal US-negative for ascites CM consult for update- regarding DC plans - homeless- needs combined radiation and chemotherapy for 7 weeks- till february -needs a safe discharge plan to complete therapy had radiation simulation doen today 9.11
[2018-01-31] MEDS: Enoxaparin Inj 30 MG/0.3 ML Syringe SQ SCH (14:50)
--- NOTE | 2018-01-31 17:43 | P.PNPL ---
Subjective Interval history: 62 YOWM with COPD,RUL endobronchial mass, PAD No Fever No CP Bx sq cell ca with adenocarcinoma Still has swelling rt foor, no pain no new complaint Physical Exam Vital signs: Vital Signs 01/30/18 18:00 01/30/18 19:00 01/30/18 20:00 Temperature Pulse Rate 104 H 97 H 94 H Respiratory Rate Blood Pressure Pulse Oximetry 01/30/18 21:00 01/30/18 22:00 01/30/18 23:00 Temperature 98.2 F Pulse Rate 92 H 86 90 Respiratory Rate 16 Blood Pressure 132/75 Pulse Oximetry 96 01/31/18 00:00 01/31/18 00:02 01/31/18 01:00 Temperature Pulse Rate 83 78 98 H Respiratory Rate 20 Blood Pressure Pulse Oximetry 01/31/18 02:00 01/31/18 03:00 01/31/18 04:00 Temperature 97.6 F Pulse Rate 90 90 81 Respiratory Rate 16 Blood Pressure 130/73 Pulse Oximetry 94 L 01/31/18 05:00 01/31/18 06:00 01/31/18 07:00 Temperature 98.5 F Pulse Rate 88 87 84 Respiratory Rate 20 Blood Pressure 139/78 Pulse Oximetry 95 01/31/18 08:00 01/31/18 12:00 01/31/18 15:00 Temperature 97.5 F L Pulse Rate 80 105 H 95 H Respiratory Rate 22 Blood Pressure 153/85 H Pulse Oximetry 98 01/31/18 17:23 Temperature Pulse Rate Respiratory Rate Blood Pressure Pulse Oximetry 98 Intake & Output 01/30/18 01/31/18 01/31/18 18:59 06:59 18:59 Intake Total 720 / 720 600 / 600 Output Total 1250 / 1250 400 / 400 Balance -530 / -530 200 / 200 Weight 94.5 kg Intake: Oral 720 / 720 600 / 600 Output: Urine 1250 / 1250 400 / 400 Other: Date of Last Bowel Movement 01/29/18 01/29/18 01/30/18 GENERAL: WBWn NAD SKIN: Warm and dry. HEAD: Normocephalic. EYES: No scleral icterus. No injection or drainage. NECK: Supple, trachea midline. No JVD or lymphadenopathy. CARDIOVASCULAR: Regular rate and rhythm without murmurs, gallops, or rubs. RESPIRATORY: Breath sounds equal bilaterally. No accessory muscle use. GASTROINTESTINAL: Abdomen soft, non-tender, nondistended. MUSCULOSKELETAL: No cyanosis, or edema. BACK: Nontender without obvious deformity. No CVA tenderness. - Urinary Catheter Management Indwelling Urethral Catheter Cath placed during this visit: yes, but has since been removed by the nurse Reason for continuing: Decision to DC catheter Insertion date: 01/05/18 Insertion time: 22:00 Removal date: 01/09/18 Removal time: 11:00 Straight Cath placed during this visit: yes, but has since been removed by the nurse Reason for continuing: Acute urinary retention Insertion date: 01/05/18 Insertion time: 17:00 Removal date: 01/05/18 Removal time: 17:08 Assessment and Plan - Plan IMPRESSION: 1. Right lung endobronchial mass, .s/p RULobectomy SQ, cell ca lung and Adenocarcinoma 2. Chronic obstructive pulmonary disease. 3. Peripheral artery disease, status post operative procedure done. 4. Nicotine abuse. 5. History of alcohol abuse. 6. The patient is homeless. PLAN: Aerosol nebs Prednisone 40 mg daily. Supplement 02 plans to start Chemo per Oncology Elevate rt foot while sitting.
[2018-01-31] MEDS: Temazepam 15 MG Capsule PO PRN (22:58)
[2018-02-01] MEDS: Senna/Docusate Sodium 8.6/50 MG Tablet PO SCH ×2 (08:33→20:29)
[2018-02-01] MEDS: predniSONE 10 MG Tablet PO SCH (08:34)
[2018-02-01] MEDS: Budesonide-Formoterol 160/4.5 MCG 6 GM Inhaler INH SCH ×2 (08:35→20:30)
--- NOTE | 2018-02-01 15:03 | P.PNPL ---
Subjective Interval history: 62 YOWM with COPD,RUL endobronchial mass, PAD No Fever No CP Bx sq cell ca with adenocarcinoma Still has swelling rt foor, no pain Physical Exam Vital signs: Vital Signs 01/31/18 17:23 01/31/18 19:00 01/31/18 23:00 Temperature 98.0 F 98.0 F Pulse Rate 104 H 98 H Respiratory Rate 20 20 Blood Pressure 143/81 H 135/74 Pulse Oximetry 98 98 99 02/01/18 03:00 02/01/18 07:00 02/01/18 08:00 Temperature 98.2 F 98.1 F Pulse Rate 99 H 101 H 98 H Respiratory Rate 20 22 Blood Pressure 129/54 L 156/81 H Pulse Oximetry 99 98 02/01/18 08:57 02/01/18 09:00 02/01/18 09:28 Temperature Pulse Rate 92 H 100 H Respiratory Rate 16 Blood Pressure Pulse Oximetry 02/01/18 11:00 02/01/18 11:43 02/01/18 11:50 Temperature Pulse Rate 100 H 103 H 102 H Respiratory Rate 20 Blood Pressure Pulse Oximetry 97 02/01/18 11:53 02/01/18 13:00 02/01/18 14:00 Temperature 98.0 F Pulse Rate 103 H 80 84 Respiratory Rate 20 Blood Pressure 154/76 H Pulse Oximetry 97 02/01/18 14:38 02/01/18 14:42 Temperature Pulse Rate 90 Respiratory Rate 20 Blood Pressure Pulse Oximetry Intake & Output 01/31/18 02/01/18 02/01/18 18:59 06:59 18:59 Intake Total 1100 / 1100 360 / 360 Output Total 900 / 900 350 / 350 Balance 200 / 200 10 Weight 96 kg Intake: Oral 1100 / 1100 360 / 360 Output: Urine 900 / 900 350 / 350 Other: Date of Last Bowel Movement 01/30/18 GENERAL: WBWN, NAD SKIN: Warm and dry. HEAD: Normocephalic. EYES: No scleral icterus. No injection or drainage. NECK: Supple, trachea midline. No JVD or lymphadenopathy. CARDIOVASCULAR: Regular rate and rhythm without murmurs, gallops, or rubs. RESPIRATORY: Breath sounds equal bilaterally. No accessory muscle use. GASTROINTESTINAL: Abdomen soft, non-tender, nondistended. MUSCULOSKELETAL: No cyanosis, or edema. BACK: Nontender without obvious deformity. No CVA tenderness. GENERAL: SKIN: Warm and dry. HEAD: Normocephalic. EYES: No scleral icterus. No injection or drainage. NECK: Supple, trachea midline. No JVD or lymphadenopathy. CARDIOVASCULAR: Regular rate and rhythm without murmurs, gallops, or rubs. RESPIRATORY: Breath sounds equal bilaterally. No accessory muscle use. GASTROINTESTINAL: Abdomen soft, non-tender, nondistended. MUSCULOSKELETAL: No cyanosis, or edema. BACK: Nontender without obvious deformity. No CVA tenderness. - Urinary Catheter Management Indwelling Urethral Catheter Cath placed during this visit: yes, but has since been removed by the nurse Reason for continuing: Decision to DC catheter Insertion date: 01/05/18 Insertion time: 22:00 Removal date: 01/09/18 Removal time: 11:00 Straight Cath placed during this visit: yes, but has since been removed by the nurse Reason for continuing: Acute urinary retention Insertion date: 01/05/18 Insertion time: 17:00 Removal date: 01/05/18 Removal time: 17:08 Assessment and Plan - Plan IMPRESSION: 1. Right lung endobronchial mass, .s/p RULobectomy SQ, cell ca lung and Adenocarcinoma 2. Chronic obstructive pulmonary disease. 3. Peripheral artery disease, status post operative procedure done. 4. Nicotine abuse. 5. History of alcohol abuse. 6. The patient is homeless. PLAN: Aerosol nebs Prednisone 40 mg daily. Supplement 02 plans to start Chemo per Oncology Elevate rt foot while sitting. Stable from Pulm standpoint Available prn
[2018-02-01] MEDS: Enoxaparin Inj 30 MG/0.3 ML Syringe SQ SCH (15:30)
--- NOTE | 2018-02-01 16:26 | P.PN ---
Subjective Interval history: Follow up for squamous cell lung cancer. Patient is currently doing well. Denies any CP, SOB, fever, chills. Physical Exam Vital signs: Vital Signs 01/31/18 17:23 01/31/18 19:00 01/31/18 23:00 Temperature 98.0 F 98.0 F Pulse Rate 104 H 98 H Respiratory Rate 20 20 Blood Pressure 143/81 H 135/74 Pulse Oximetry 98 98 99 02/01/18 03:00 02/01/18 07:00 02/01/18 08:00 Temperature 98.2 F 98.1 F Pulse Rate 99 H 101 H 98 H Respiratory Rate 20 22 Blood Pressure 129/54 L 156/81 H Pulse Oximetry 99 98 02/01/18 08:57 02/01/18 09:00 02/01/18 09:28 Temperature Pulse Rate 92 H 100 H Respiratory Rate 16 Blood Pressure Pulse Oximetry 02/01/18 11:00 02/01/18 11:43 02/01/18 11:50 Temperature Pulse Rate 100 H 103 H 102 H Respiratory Rate 20 Blood Pressure Pulse Oximetry 97 02/01/18 11:53 02/01/18 13:00 02/01/18 14:00 Temperature 98.0 F Pulse Rate 103 H 80 84 Respiratory Rate 20 Blood Pressure 154/76 H Pulse Oximetry 97 02/01/18 14:38 02/01/18 14:42 02/01/18 16:00 Temperature 98.1 F Pulse Rate 90 104 H Respiratory Rate 20 16 Blood Pressure 152/79 H Pulse Oximetry 97 Intake & Output 01/31/18 02/01/18 02/01/18 18:59 06:59 18:59 Intake Total 1100 / 1100 360 / 360 Output Total 900 / 900 350 / 350 Balance 200 / 200 Weight 96 kg Intake: Oral 1100 / 1100 360 / 360 Output: Urine 900 / 900 350 / 350 Other: Date of Last Bowel Movement 01/30/18 Narrative: GENERAL: Alert, NAD. SKIN: Warm and dry. HEAD: Normocephalic. EYES: No scleral icterus. No injection or drainage. NECK: Supple, trachea midline. No JVD or lymphadenopathy. CARDIOVASCULAR: Regular rate and rhythm without murmurs, gallops, or rubs. RESPIRATORY: Breath sounds equal bilaterally. No accessory muscle use. GASTROINTESTINAL: Abdomen soft, non-tender, nondistended. MUSCULOSKELETAL: No cyanosis, or edema. BACK: Nontender without obvious deformity. No CVA tenderness. - Urinary Catheter Management Indwelling Urethral Catheter Cath placed during this visit: yes, but has since been removed by the nurse Reason for continuing: Decision to DC catheter Insertion date: 01/05/18 Insertion time: 22:00 Removal date: 01/09/18 Removal time: 11:00 Straight Cath placed during this visit: yes, but has since been removed by the nurse Reason for continuing: Acute urinary retention Insertion date: 01/05/18 Insertion time: 17:00 Removal date: 01/05/18 Removal time: 17:08 Results - Labs CBC & Chem 7: 01/25/18 05:22 01/23/18 16:00 - Procedures Date of procedure: 01/04/18 Anesthesia: GETA Surgeon: Zaida Serrano MD Operation and Findings: PREOPERATIVE DIAGNOSIS 1. Right Upper lobe Lung Mass 2. Right upper lobe endobronchial obstruction with complete collapse 3. COPD POSTOPERATIVE DIAGNOSIS same PROCEDURES 1. Right posterolateral Muscle Sparing Thoracotomy 2. Right Upper lobectomy 3. Mediastinal Lymph Node Dissection 4. Intercostal Nerve Block SURGEON Zaida Serrano MD Assessment and Plan - Plan 62-year-old male with a history of alcohol abuse, withdrawal, COPD, peripheral artery disease, right lower lobe collapse seen during admission last month who was admitted on 12/26/2017 for left lower extremity revascularization. He underwent bronch in November 2017 and was found to have a large endobronchial mass obstructing right upper lobe mainstem bronchus. Bronchial washing was done and cytology was negative. Patient was supposed to follow up with oncologist. Unfortunately, due to social and insurance issues, he has not been able to follow up. Hematology-oncology was consulted again during this admission. 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 -Patient is homeless. Patient will likely need inpatient chemoradiation therapy unless outpatient arrangements are made. -Status post Right posterolateral Muscle sparing thoracotomy, Right upper lobectomy, Mediastinal lymph node dissection, intercostal nerve block. 01/04/18 -Radiation sim was done on 01/31/2018. - Chemoradiation will likely continue until February 2018 (7 weeks). Peripheral artery disease -Status post surgical intervention on 12/26/2017. Continue aspirin and Plavix. Chronic respiratory failure COPD -Continue DuoNeb, Symbicort. Continue prednisone 30 mg daily. Full code. Lovenox.
[2018-02-01] MEDS: Temazepam 15 MG Capsule PO PRN (22:36)
[2018-02-02] MEDS: predniSONE 10 MG Tablet PO SCH (09:30)
[2018-02-02] MEDS: Senna/Docusate Sodium 8.6/50 MG Tablet PO SCH ×2 (09:30→20:27)
[2018-02-02] MEDS: Budesonide-Formoterol 160/4.5 MCG 6 GM Inhaler INH SCH ×2 (09:31→20:27)
--- NOTE | 2018-02-02 11:07 | P.PN ---
Subjective Interval history: Follow up for squamous cell lung cancer. Patient is currently doing well. Sitting at the side of his bed. Eating breakfast. No acute concerns. Denies any chest pain, shortness of breath, fever or chills. Physical Exam Vital signs: Vital Signs 02/01/18 11:00 02/01/18 11:43 02/01/18 11:50 Temperature Pulse Rate 100 H 103 H 102 H Respiratory Rate 20 Blood Pressure Pulse Oximetry 97 02/01/18 11:53 02/01/18 13:00 02/01/18 14:00 Temperature 98.0 F Pulse Rate 103 H 80 84 Respiratory Rate 20 Blood Pressure 154/76 H Pulse Oximetry 97 02/01/18 14:38 02/01/18 14:42 02/01/18 16:00 Temperature 98.1 F Pulse Rate 90 104 H Respiratory Rate 20 16 Blood Pressure 152/79 H Pulse Oximetry 97 02/01/18 17:00 02/01/18 17:08 02/01/18 17:15 Temperature Pulse Rate 100 H 101 H Respiratory Rate Blood Pressure Pulse Oximetry 97 02/01/18 19:00 02/01/18 20:00 02/01/18 21:00 Temperature 98.1 F Pulse Rate 97 H 92 H 92 H Respiratory Rate 16 Blood Pressure 130/77 Pulse Oximetry 99 02/01/18 22:00 02/01/18 23:00 02/02/18 00:00 Temperature 98.5 F Pulse Rate 92 H 91 H 58 L Respiratory Rate 20 Blood Pressure 164/72 H Pulse Oximetry 97 02/02/18 01:00 02/02/18 02:00 02/02/18 03:00 Temperature Pulse Rate 91 H 98 H 100 H Respiratory Rate Blood Pressure Pulse Oximetry 02/02/18 04:00 02/02/18 05:00 02/02/18 06:00 Temperature 98.6 F Pulse Rate 97 H 98 H 98 H Respiratory Rate 16 Blood Pressure 140/69 Pulse Oximetry 100 02/02/18 07:46 02/02/18 07:56 Temperature 98.3 F Pulse Rate 96 H 103 H Respiratory Rate 22 18 Blood Pressure 137/80 Pulse Oximetry 99 99 Intake & Output 02/01/18 02/02/18 02/02/18 18:59 06:59 18:59 Intake Total 1280 / 1280 900 / 900 Output Total 950 / 950 500 / 500 Balance 330 / 330 400 / 400 Weight 98 kg Intake: Oral 1280 / 1280 900 / 900 Output: Urine 950 / 950 500 / 500 Other: Date of Last Bowel Movement 02/01/18 02/01/18 Narrative: GENERAL: Alert, NAD. SKIN: Warm and dry. HEAD: Normocephalic. EYES: No scleral icterus. No injection or drainage. NECK: Supple, trachea midline. No JVD or lymphadenopathy. CARDIOVASCULAR: Regular rate and rhythm without murmurs, gallops, or rubs. RESPIRATORY: Moderate air entry. No accessory muscle use. GASTROINTESTINAL: Abdomen soft, non-tender, nondistended. MUSCULOSKELETAL: No cyanosis, or edema. BACK: Nontender without obvious deformity. No CVA tenderness. - Urinary Catheter Management Indwelling Urethral Catheter Cath placed during this visit: yes, but has since been removed by the nurse Reason for continuing: Decision to DC catheter Insertion date: 01/05/18 Insertion time: 22:00 Removal date: 01/09/18 Removal time: 11:00 Straight Cath placed during this visit: yes, but has since been removed by the nurse Reason for continuing: Acute urinary retention Insertion date: 01/05/18 Insertion time: 17:00 Removal date: 01/05/18 Removal time: 17:08 Results - Labs CBC & Chem 7: 01/25/18 05:22 01/23/18 16:00 - Procedures Date of procedure: 01/04/18 Anesthesia: GETA Surgeon: Zaida Serrano MD Operation and Findings: PREOPERATIVE DIAGNOSIS 1. Right Upper lobe Lung Mass 2. Right upper lobe endobronchial obstruction with complete collapse 3. COPD POSTOPERATIVE DIAGNOSIS same PROCEDURES 1. Right posterolateral Muscle Sparing Thoracotomy 2. Right Upper lobectomy 3. Mediastinal Lymph Node Dissection 4. Intercostal Nerve Block SURGEON Zaida Serrano MD Assessment and Plan - Plan 62-year-old male with a history of alcohol abuse, withdrawal, COPD, peripheral artery disease, right lower lobe collapse seen during admission last month who was admitted on 12/26/2017 for left lower extremity revascularization. He underwent bronch in November 2017 and was found to have a large endobronchial mass obstructing right upper lobe mainstem bronchus. Bronchial washing was done and cytology was negative. Patient was supposed to follow up with oncologist. Unfortunately, due to social and insurance issues, he has not been able to follow up. Hematology-oncology was consulted again during this admission. 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 -Patient is homeless. Patient will likely need inpatient chemoradiation therapy unless outpatient arrangements are made. -Status post Right posterolateral Muscle sparing thoracotomy, Right upper lobectomy, Mediastinal lymph node dissection, intercostal nerve block. 01/04/18 -Radiation simulation was done on 01/31/2018. -Chemoradiation will likely continue until the end of February 2018 (7 weeks) . Peripheral artery disease -Status post surgical intervention on 12/26/2017. Continue aspirin and Plavix and Pravastatin. Chronic respiratory failure COPD -Continue DuoNeb, Symbicort. Continue prednisone 30 mg daily. BPH - continue Tamsulosin 0.4mg Qday. Insomnia - continue Restoril 15mg QHS. Full code. Lovenox.
[2018-02-02] MEDS: Enoxaparin Inj 30 MG/0.3 ML Syringe SQ SCH (16:30)
[2018-02-02] MEDS: Temazepam 15 MG Capsule PO PRN (23:22)
[2018-02-03] MEDS: predniSONE 10 MG Tablet PO SCH (08:17)
[2018-02-03] MEDS: Senna/Docusate Sodium 8.6/50 MG Tablet PO SCH ×2 (08:18→20:51)
[2018-02-03] MEDS: Budesonide-Formoterol 160/4.5 MCG 6 GM Inhaler INH SCH ×2 (08:19→20:51)
[2018-02-03] MEDS ORDERED: Torsemide 20 MG Tablet PO ONE (10:52)
--- NOTE | 2018-02-03 10:53 | P.PN ---
Subjective Interval history: Follow up for squamous cell lung cancer. Patient is sitting in his chair. He complains of significant pain on his right lower ext - from upper thigh area down to the distal leg. No fever, chills. He reports significant swelling as well - especially right lower ext. Physical Exam Vital signs: Vital Signs 02/02/18 11:00 02/02/18 12:00 02/02/18 15:00 Temperature 97.8 F Pulse Rate 95 H 97 H 94 H Respiratory Rate 20 Blood Pressure 130/77 Pulse Oximetry 02/02/18 16:00 02/02/18 16:51 02/02/18 19:00 Temperature 98.4 F Pulse Rate 94 H 77 92 H Respiratory Rate 20 17 Blood Pressure 142/79 H Pulse Oximetry 98 02/02/18 19:59 02/02/18 21:10 02/02/18 23:00 Temperature 97.6 F Pulse Rate 98 H 92 H Respiratory Rate 20 18 Blood Pressure 144/78 H Pulse Oximetry 96 02/02/18 23:55 02/03/18 01:03 02/03/18 03:00 Temperature 97.8 F Pulse Rate 93 H 108 H Respiratory Rate 18 18 Blood Pressure 151/80 H Pulse Oximetry 96 02/03/18 03:27 02/03/18 05:40 02/03/18 07:00 Temperature 97.6 F Pulse Rate 103 H 90 Respiratory Rate 19 19 Blood Pressure 120/58 L Pulse Oximetry 96 02/03/18 08:00 02/03/18 08:50 02/03/18 09:00 Temperature 97.7 F Pulse Rate 94 H 98 H Respiratory Rate 18 18 Blood Pressure 135/78 Pulse Oximetry 97 02/03/18 10:00 Temperature Pulse Rate 70 Respiratory Rate Blood Pressure Pulse Oximetry Intake & Output 02/02/18 02/03/18 02/03/18 18:59 06:59 18:59 Intake Total 1080 / 1080 680 / 680 Output Total 860 / 860 550 / 550 Balance 220 / 220 130 / 130 Weight 98 kg Intake: Oral 1080 / 1080 680 / 680 Output: Urine 860 / 860 550 / 550 Other: Date of Last Bowel Movement 02/01/18 02/03/18 02/03/18 # Bowel Movements 1 Narrative: GENERAL: Alert, NAD. SKIN: Warm and dry. HEAD: Normocephalic. EYES: No scleral icterus. No injection or drainage. NECK: Supple, trachea midline. No JVD or lymphadenopathy. CARDIOVASCULAR: Regular rate and rhythm without murmurs, gallops, or rubs. RESPIRATORY: Moderate air entry. No accessory muscle use. GASTROINTESTINAL: Abdomen soft, non-tender, nondistended. MUSCULOSKELETAL: No cyanosis. 2+ edema in both lower ext, R > L. BACK: Nontender without obvious deformity. No CVA tenderness. - Urinary Catheter Management Indwelling Urethral Catheter Cath placed during this visit: yes, but has since been removed by the nurse Reason for continuing: Decision to DC catheter Insertion date: 01/05/18 Insertion time: 22:00 Removal date: 01/09/18 Removal time: 11:00 Straight Cath placed during this visit: yes, but has since been removed by the nurse Reason for continuing: Acute urinary retention Insertion date: 01/05/18 Insertion time: 17:00 Removal date: 01/05/18 Removal time: 17:08 Results - Labs CBC & Chem 7: 01/25/18 05:22 01/23/18 16:00 - Procedures Date of procedure: 01/04/18 Anesthesia: GETA Surgeon: Zaida Serrano MD Operation and Findings: PREOPERATIVE DIAGNOSIS 1. Right Upper lobe Lung Mass 2. Right upper lobe endobronchial obstruction with complete collapse 3. COPD POSTOPERATIVE DIAGNOSIS same PROCEDURES 1. Right posterolateral Muscle Sparing Thoracotomy 2. Right Upper lobectomy 3. Mediastinal Lymph Node Dissection 4. Intercostal Nerve Block SURGEON Zaida Serrano MD Assessment and Plan - Plan 62-year-old male with a history of alcohol abuse, withdrawal, COPD, peripheral artery disease, right lower lobe collapse seen during admission last month who was admitted on 12/26/2017 for left lower extremity revascularization. He underwent bronch in November 2017 and was found to have a large endobronchial mass obstructing right upper lobe mainstem bronchus. Bronchial washing was done and cytology was negative. Patient was supposed to follow up with oncologist. Unfortunately, due to social and insurance issues, he has not been able to follow up. Hematology-oncology was consulted again during this admission. 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 -Patient is homeless. Patient will likely need inpatient chemoradiation therapy unless outpatient arrangements are made. -Status post Right posterolateral Muscle sparing thoracotomy, Right upper lobectomy, Mediastinal lymph node dissection, intercostal nerve block. 01/04/18 -Radiation simulation was done on 01/31/2018. -Chemoradiation will likely continue until the end of February 2018 (7 weeks) . Peripheral artery disease Bilateral lower extremity edema Right lower extremity pain -Status post surgical intervention on 12/26/2017. -Continue aspirin and Plavix and Pravastatin. -RN called Dr. Locke (Vascular surgery) who will evaluate patient today. -Will start Torsemide 10mg BID. Chronic respiratory failure COPD -Continue DuoNeb, Symbicort. Continue prednisone 30 mg daily. BPH - continue Tamsulosin 0.4mg Qday. Insomnia - continue Restoril 15mg QHS. Full code. Lovenox.
[2018-02-03] MEDS: Enoxaparin Inj 30 MG/0.3 ML Syringe SQ SCH (14:44)
--- NOTE | 2018-02-03 15:10 | P.PNVS ---
Subjective Subjective/Hospital Course: 62/M s/p R EIA atherectomy/[employer], SFA [employer]/stent Pt in bed c/o Bilateral Lower Extremity swelling Pt denied claudication or rest pain B LE warm w/ motor intact Palpable distal pulses noted (2+) Pt reported a 30 pound weight gain Objective Vital Signs / I&O: Vital Signs 02/02/18 16:00 02/02/18 16:51 02/02/18 19:00 Temperature 98.4 F Pulse Rate 94 H 77 92 H Respiratory Rate 20 17 Blood Pressure 142/79 H Pulse Oximetry 98 02/02/18 19:59 02/02/18 21:10 02/02/18 23:00 Temperature 97.6 F Pulse Rate 98 H 92 H Respiratory Rate 20 18 Blood Pressure 144/78 H Pulse Oximetry 96 02/02/18 23:55 02/03/18 01:03 02/03/18 03:00 Temperature 97.8 F Pulse Rate 93 H 108 H Respiratory Rate 18 18 Blood Pressure 151/80 H Pulse Oximetry 96 02/03/18 03:27 02/03/18 05:40 02/03/18 07:00 Temperature 97.6 F Pulse Rate 103 H 90 Respiratory Rate 19 19 Blood Pressure 120/58 L Pulse Oximetry 96 02/03/18 08:00 02/03/18 08:50 02/03/18 09:00 Temperature 97.7 F Pulse Rate 94 H 98 H Respiratory Rate 18 18 Blood Pressure 135/78 Pulse Oximetry 97 02/03/18 10:00 02/03/18 12:00 02/03/18 12:57 Temperature 98.1 F Pulse Rate 70 100 H 93 H Respiratory Rate 18 16 Blood Pressure 149/82 H Pulse Oximetry 97 Intake & Output 02/02/18 02/03/18 02/03/18 18:59 06:59 18:59 Intake Total 1080 / 1080 680 / 680 Output Total 860 / 860 550 / 550 Balance 220 / 220 130 / 130 Weight 98 kg Intake: Oral 1080 / 1080 680 / 680 Output: Urine 860 / 860 550 / 550 Other: Date of Last Bowel Movement 02/01/18 02/03/18 02/03/18 # Bowel Movements 1 Physical Exam: GENERAL:62/M on O2/2L/NC/A&OX3, NAD SKIN: Warm and dry. HEAD: Normocephalic. EYES: No scleral icterus. No injection or drainage. NECK: Supple, trachea midline. No JVD or lymphadenopathy. CARDIOVASCULAR: Regular rate and rhythm without murmurs, gallops, or rubs. RESPIRATORY: Even/CTA/No accessory muscle use. GASTROINTESTINAL: Abdomen distended/ NT MUSCULOSKELETAL: No cyanosis, 3+ pitting edema B LE Palpable Right and Left DP/PT (2+) Palpable Right and Left Femoral pulse Assessment and Plan - Assessment (1) Claudication in peripheral vascular disease Code(s): I73.9 - Peripheral vascular disease, unspecified Status: Acute - Plan 62/M s/p R LE revascularization Pt doing well w/o claudication or rest pain Pt with sufficient R LE perfusion- Palpable distal pulses noted Pt w/ recent noticeable weight gain Pt's B LE swelling does not appear to be related to his circulation Plan Continue Diuretic- Hospitalist following Continue PT/OOB/Ambulation Toshia Trivedi NP [facility]/[place] [phone] Discharge Planning: Out pt f/u arranged
[2018-02-04] MEDS: Temazepam 15 MG Capsule PO PRN ×2 (00:14→21:27)
[2018-02-04] MEDS: Budesonide-Formoterol 160/4.5 MCG 6 GM Inhaler INH SCH ×2 (09:14→20:19)
[2018-02-04] MEDS: Senna/Docusate Sodium 8.6/50 MG Tablet PO SCH ×2 (09:14→20:19)
[2018-02-04] MEDS: predniSONE 10 MG Tablet PO SCH (09:14)
--- NOTE | 2018-02-04 10:09 | P.PN ---
Subjective Interval history: Follow up for squamous cell lung cancer. Patient is currently doing well. Resting in bed. He complains of persistent right leg pain and bilateral lower extremity swelling. No fever or chills. Physical Exam Vital signs: Vital Signs 02/03/18 11:00 02/03/18 12:00 02/03/18 12:57 Temperature 98.1 F Pulse Rate 95 H 92 H 93 H Respiratory Rate 18 16 Blood Pressure 149/82 H Pulse Oximetry 97 02/03/18 13:00 02/03/18 13:30 02/03/18 14:00 Temperature Pulse Rate 96 H 108 H Respiratory Rate 18 Blood Pressure Pulse Oximetry 02/03/18 15:00 02/03/18 16:00 02/03/18 18:05 Temperature 97.9 F Pulse Rate 102 H 73 Respiratory Rate 20 18 Blood Pressure 114/76 Pulse Oximetry 98 02/03/18 19:00 02/03/18 20:00 02/03/18 21:20 Temperature 97.8 F Pulse Rate 109 H 104 H Respiratory Rate 20 16 Blood Pressure 130/76 Pulse Oximetry 96 02/03/18 23:00 02/04/18 00:00 02/04/18 01:00 Temperature 97.7 F Pulse Rate 88 94 H Respiratory Rate 18 16 Blood Pressure 130/76 Pulse Oximetry 96 02/04/18 03:00 02/04/18 03:37 02/04/18 04:00 Temperature 98.1 F Pulse Rate 98 H 70 Respiratory Rate 16 18 Blood Pressure 159/78 H Pulse Oximetry 98 02/04/18 08:00 02/04/18 09:55 Temperature 97.4 F L Pulse Rate 84 84 Respiratory Rate 20 18 Blood Pressure 140/77 Pulse Oximetry 96 Intake & Output 02/03/18 02/04/18 02/04/18 18:59 06:59 18:59 Intake Total 720 / 720 480 / 480 Output Total 2600 / 2600 950 / 950 Balance -1880 / -1880 -470 / -470 Weight 98 kg Intake: Oral 720 / 720 480 / 480 Output: Urine 2600 / 2600 950 / 950 Other: # Voids 2 Date of Last Bowel Movement 02/03/18 02/03/18 02/03/18 Narrative: GENERAL: Alert, NAD. SKIN: Warm and dry. HEAD: Normocephalic. EYES: No scleral icterus. No injection or drainage. NECK: Supple, trachea midline. No JVD or lymphadenopathy. CARDIOVASCULAR: Regular rate and rhythm without murmurs, gallops, or rubs. RESPIRATORY: Moderate air entry. No accessory muscle use. GASTROINTESTINAL: Abdomen soft, non-tender, nondistended. MUSCULOSKELETAL: No cyanosis. 2+ edema in both lower ext, R > L. BACK: Nontender without obvious deformity. No CVA tenderness. - Urinary Catheter Management Indwelling Urethral Catheter Cath placed during this visit: yes, but has since been removed by the nurse Reason for continuing: Decision to DC catheter Insertion date: 01/05/18 Insertion time: 22:00 Removal date: 01/09/18 Removal time: 11:00 Straight Cath placed during this visit: yes, but has since been removed by the nurse Reason for continuing: Acute urinary retention Insertion date: 01/05/18 Insertion time: 17:00 Removal date: 01/05/18 Removal time: 17:08 Results - Labs CBC & Chem 7: 01/25/18 05:22 01/23/18 16:00 - Procedures Date of procedure: 01/04/18 Anesthesia: GETA Surgeon: Zaida Serrano MD Operation and Findings: PREOPERATIVE DIAGNOSIS 1. Right Upper lobe Lung Mass 2. Right upper lobe endobronchial obstruction with complete collapse 3. COPD POSTOPERATIVE DIAGNOSIS same PROCEDURES 1. Right posterolateral Muscle Sparing Thoracotomy 2. Right Upper lobectomy 3. Mediastinal Lymph Node Dissection 4. Intercostal Nerve Block SURGEON Zaida Serrano MD Assessment and Plan - Plan 62-year-old male with a history of alcohol abuse, withdrawal, COPD, peripheral artery disease, right lower lobe collapse seen during admission last month who was admitted on 12/26/2017 for left lower extremity revascularization. He underwent bronch in November 2017 and was found to have a large endobronchial mass obstructing right upper lobe mainstem bronchus. Bronchial washing was done and cytology was negative. Patient was supposed to follow up with oncologist. Unfortunately, due to social and insurance issues, he has not been able to follow up. Hematology-oncology was consulted again during this admission. 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 -Patient is homeless. Patient will likely need inpatient chemoradiation therapy unless outpatient arrangements are made. -Status post Right posterolateral Muscle sparing thoracotomy, Right upper lobectomy, Mediastinal lymph node dissection, intercostal nerve block. 01/04/18 -Radiation simulation was done on 01/31/2018. -Chemoradiation will likely continue until the end of February 2018 (7 weeks) . Peripheral artery disease Bilateral lower extremity edema Right lower extremity pain -Status post surgical intervention on 12/26/2017. -Continue aspirin and Plavix and Pravastatin. -Vascular surgery evaluated patient and recommended continuing diuretics. -Continue torsemide 10mg BID. Chronic respiratory failure COPD -Continue DuoNeb, Symbicort. Continue prednisone 30 mg daily. BPH - continue Tamsulosin 0.4mg Qday. Insomnia - continue Restoril 15mg QHS. Full code. Lovenox.
[2018-02-04] MEDS: Enoxaparin Inj 30 MG/0.3 ML Syringe SQ SCH (14:45)
[2018-02-05] MEDS: predniSONE 10 MG Tablet PO SCH (08:47)
[2018-02-05] MEDS: Senna/Docusate Sodium 8.6/50 MG Tablet PO SCH ×2 (08:48→21:52)
[2018-02-05] MEDS: Budesonide-Formoterol 160/4.5 MCG 6 GM Inhaler INH SCH ×2 (08:49→21:53)
[2018-02-05 10:23] LABS: Hematocrit 28.8 % (39.0-51.0); Mean Corpuscular HGB Conc 31.3 % (32.0-36.0); Mean Corpuscular Hemoglobin 30.6 pg (27.0-34.0); Mean Corpuscular Volume 97.7 fL (80.0-100.0); Mean Platelet Volume 8.2 fL (7.0-11.0); Platelet Count 335 th/mm3 (150-450); Red Blood Count 2.95 mil/mm3 (4.50-5.90); Red Cell Distribution Width 17.5 % (11.6-17.2)
[2018-02-05 10:57] LABS: Anion Gap 8 meq/L (5-15); Blood Urea Nitrogen 21 mg/dL (7-18); Calcium 8.4 mg/dL (8.5-10.1); Carbon Dioxide 30.8 meq/L (21.0-32.0); Chloride 102 meq/L (98-107); Glomerular Filtration Rate Greater Than 89 mL/min (>89); Glucose,Random 164 mg/dL (74-106); Potassium 3.5 meq/L (3.5-5.1); Sodium 141 meq/L (136-145)
[2018-02-05 11:17] LABS: Lymphocytes 10 % (9-44); Metamyelocytes 6 % (0-1); Monocytes 3 % (0-8); Myelocytes 8 % (0-0); Promyelocyte 8 % (0-0)
[2018-02-05 11:18] LABS: Platelet Estimate Normal (Normal); Platelet Morphology Normal (Normal)
[2018-02-05] MEDS: Enoxaparin Inj 30 MG/0.3 ML Syringe SQ SCH (15:02)
--- NOTE | 2018-02-05 16:25 | P.PN ---
Subjective Interval history: Follow up for squamous cell lung cancer. She does currently doing well. He reports improvement of his lower extremity edema and pain. No fever or chills. Physical Exam Vital signs: Vital Signs 02/04/18 19:00 02/04/18 19:18 02/04/18 19:27 Temperature Pulse Rate 95 H 96 H Respiratory Rate 18 17 Blood Pressure Pulse Oximetry 93 L 02/04/18 20:00 02/04/18 23:00 02/04/18 23:36 Temperature 98.0 F 98.1 F Pulse Rate 99 H 95 H 99 H Respiratory Rate 16 16 Blood Pressure 137/75 130/62 Pulse Oximetry 94 L 96 02/05/18 00:00 02/05/18 03:00 02/05/18 04:00 Temperature 97.6 F Pulse Rate 87 98 H Respiratory Rate 16 16 Blood Pressure 135/75 Pulse Oximetry 96 02/05/18 07:00 02/05/18 08:00 02/05/18 11:00 Temperature 97.7 F Pulse Rate 90 94 H 103 H Respiratory Rate 18 Blood Pressure 135/79 Pulse Oximetry 95 02/05/18 12:00 02/05/18 12:10 02/05/18 14:33 Temperature 98.1 F Pulse Rate 102 H 112 H Respiratory Rate 18 20 18 Blood Pressure 147/73 H Pulse Oximetry 94 L Intake & Output 02/04/18 02/05/18 02/05/18 18:59 06:59 18:59 Intake Total 1080 / 1080 480 / 480 Output Total 1200 / 1200 1125 / 1125 Balance -120 / -120 -645 / -645 Weight 98 kg Intake: Oral 1080 / 1080 480 / 480 Output: Urine 1200 / 1200 1125 / 1125 Other: Date of Last Bowel Movement 02/04/18 02/04/18 02/04/18 # Bowel Movements 1 Narrative: GENERAL: Alert, NAD. SKIN: Warm and dry. HEAD: Normocephalic. EYES: No scleral icterus. No injection or drainage. NECK: Supple, trachea midline. No JVD or lymphadenopathy. CARDIOVASCULAR: Regular rate and rhythm without murmurs, gallops, or rubs. RESPIRATORY: Moderate air entry. No accessory muscle use. GASTROINTESTINAL: Abdomen soft, non-tender, nondistended. MUSCULOSKELETAL: No cyanosis. Lower extremity edema improved 1+. Not as painful. BACK: Nontender without obvious deformity. No CVA tenderness. - Urinary Catheter Management Indwelling Urethral Catheter Cath placed during this visit: yes, but has since been removed by the nurse Reason for continuing: Decision to DC catheter Insertion date: 01/05/18 Insertion time: 22:00 Removal date: 01/09/18 Removal time: 11:00 Straight Cath placed during this visit: yes, but has since been removed by the nurse Reason for continuing: Acute urinary retention Insertion date: 01/05/18 Insertion time: 17:00 Removal date: 01/05/18 Removal time: 17:08 Results - Labs CBC & Chem 7: 02/05/18 10:09 02/05/18 10:09 Laboratory Results - last 24 hr 02/05/18 02/05/18 10:09 10:09 WBC 15.0 H RBC 2.95 L Hgb 9.0 L Hct 28.8 L MCV 97.7 MCH 30.6 MCHC 31.3 L RDW 17.5 H Plt Count 335 MPV 8.2 Prelim Diff (Auto) Manual diff required WBC Differential Manual diff final Seg Neuts % (Manual) 61 Band Neuts % (Manual) 4 Lymphocytes % (Manual) 10 Monocytes % (Manual) 3 Metamyelocytes % (Man) 6 H Myelocytes % (Man) 8 H Promyelocytes % (Man) 8 H Abs Neuts (Manual) 13.1 H Differential Comment . Platelet Estimate Normal Platelet Morphology Normal Sodium 141 Potassium 3.5 Chloride 102 Carbon Dioxide 30.8 Anion Gap 8 BUN 21 H Creatinine 0.82 Estimated GFR Greater than 89 Random Glucose 164 H Calcium 8.4 L - Procedures Date of procedure: 01/04/18 Anesthesia: GETA Surgeon: Zaida Serrano MD Operation and Findings: PREOPERATIVE DIAGNOSIS 1. Right Upper lobe Lung Mass 2. Right upper lobe endobronchial obstruction with complete collapse 3. COPD POSTOPERATIVE DIAGNOSIS same PROCEDURES 1. Right posterolateral Muscle Sparing Thoracotomy 2. Right Upper lobectomy 3. Mediastinal Lymph Node Dissection 4. Intercostal Nerve Block SURGEON Zaida Serrano MD Assessment and Plan - Plan 62-year-old male with a history of alcohol abuse, withdrawal, COPD, peripheral artery disease, right lower lobe collapse seen during admission last month who was admitted on 12/26/2017 for left lower extremity revascularization. He underwent bronch in November 2017 and was found to have a large endobronchial mass obstructing right upper lobe mainstem bronchus. Bronchial washing was done and cytology was negative. Patient was supposed to follow up with oncologist. Unfortunately, due to social and insurance issues, he has not been able to follow up. Hematology-oncology was consulted again during this admission. 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 -Patient is homeless. Patient will likely need inpatient chemoradiation therapy unless outpatient arrangements are made. -Status post Right posterolateral Muscle sparing thoracotomy, Right upper lobectomy, Mediastinal lymph node dissection, intercostal nerve block. 01/04/18 -Radiation simulation was done on 01/31/2018. -Chemoradiation will likely continue until the end of February 2018 (7 weeks) . Peripheral artery disease Bilateral lower extremity edema Right lower extremity pain -Status post surgical intervention on 12/26/2017. -Continue aspirin and Plavix and Pravastatin. -Vascular surgery evaluated patient and recommended continuing diuretics. -Continue torsemide 10mg BID. Chronic respiratory failure COPD -Continue DuoNeb, Symbicort. Continue prednisone 30 mg daily. BPH - continue Tamsulosin 0.4mg Qday. Insomnia - continue Restoril 15mg QHS. Full code. Lovenox. Discharge plan: Patient will likely need reliable placement from which he can come to the hospital for chemo and radiation. Chemoradiation is expected to start in a week or 2. Discussed with oncologist Dr. Kovacs.
[2018-02-05] MEDS: Temazepam 15 MG Capsule PO PRN (21:53)
[2018-02-06 07:29] LABS: Anion Gap 9 meq/L (5-15); Blood Urea Nitrogen 25 mg/dL (7-18); Calcium 8.7 mg/dL (8.5-10.1); Carbon Dioxide 32.7 meq/L (21.0-32.0); Chloride 100 meq/L (98-107); Glomerular Filtration Rate Greater Than 89 mL/min (>89); Glucose,Random 136 mg/dL (74-106); Potassium 3.4 meq/L (3.5-5.1); Sodium 142 meq/L (136-145)
[2018-02-06] MEDS: predniSONE 10 MG Tablet PO SCH (08:29)
[2018-02-06] MEDS: Senna/Docusate Sodium 8.6/50 MG Tablet PO SCH ×2 (08:30→20:39)
[2018-02-06] MEDS: Budesonide-Formoterol 160/4.5 MCG 6 GM Inhaler INH SCH ×2 (08:32→20:41)
--- NOTE | 2018-02-06 09:55 | P.PN ---
Subjective Interval history: Follow up for squamous cell lung cancer. Patient is doing well. On room air. Leg pain and swelling improving. Physical Exam Vital signs: Vital Signs 02/05/18 11:00 02/05/18 12:00 02/05/18 12:10 Temperature 98.1 F Pulse Rate 103 H 102 H Respiratory Rate 18 20 Blood Pressure 147/73 H Pulse Oximetry 94 L 02/05/18 14:33 02/05/18 15:00 02/05/18 16:00 Temperature 98.5 F Pulse Rate 112 H 107 H 112 H Respiratory Rate 18 20 Blood Pressure 139/76 Pulse Oximetry 94 L 02/05/18 17:05 02/05/18 19:00 02/05/18 23:00 Temperature Pulse Rate 108 H 100 H Respiratory Rate 18 Blood Pressure Pulse Oximetry 02/05/18 23:22 02/06/18 00:23 02/06/18 03:00 Temperature 97.8 F Pulse Rate 98 H 98 H 109 H Respiratory Rate 20 16 Blood Pressure 154/88 H Pulse Oximetry 95 02/06/18 04:00 02/06/18 05:45 Temperature 98.2 F Pulse Rate 97 H Respiratory Rate 20 20 Blood Pressure 133/77 Pulse Oximetry 97 Intake & Output 02/05/18 02/06/18 02/06/18 18:59 06:59 18:59 Intake Total 900 / 900 720 / 720 Output Total 1400 / 1400 1250 / 1250 Balance -500 / -500 -530 / -530 Weight 98 kg Intake: Oral 900 / 900 720 / 720 Output: Urine 1400 / 1400 1250 / 1250 Other: Date of Last Bowel Movement 02/05/18 # Bowel Movements 1 - Urinary Catheter Management Indwelling Urethral Catheter Cath placed during this visit: yes, but has since been removed by the nurse Reason for continuing: Decision to DC catheter Insertion date: 01/05/18 Insertion time: 22:00 Removal date: 01/09/18 Removal time: 11:00 Straight Cath placed during this visit: yes, but has since been removed by the nurse Reason for continuing: Acute urinary retention Insertion date: 01/05/18 Insertion time: 17:00 Removal date: 01/05/18 Removal time: 17:08 Results - Labs CBC & Chem 7: 02/05/18 10:09 02/06/18 05:03 Laboratory Results - last 24 hr 02/05/18 02/05/18 02/06/18 10:09 10:09 05:03 WBC 15.0 H RBC 2.95 L Hgb 9.0 L Hct 28.8 L MCV 97.7 MCH 30.6 MCHC 31.3 L RDW 17.5 H Plt Count 335 MPV 8.2 Prelim Diff (Auto) Manual diff required WBC Differential Manual diff final Seg Neuts % (Manual) 61 Band Neuts % (Manual) 4 Lymphocytes % (Manual) 10 Monocytes % (Manual) 3 Metamyelocytes % (Man) 6 H Myelocytes % (Man) 8 H Promyelocytes % (Man) 8 H Abs Neuts (Manual) 13.1 H Differential Comment . Platelet Estimate Normal Platelet Morphology Normal Sodium 141 142 Potassium 3.5 3.4 L Chloride 102 100 Carbon Dioxide 30.8 32.7 H Anion Gap 8 9 BUN 21 H 25 H Creatinine 0.82 0.79 Estimated GFR Greater than 89 Greater than 89 Random Glucose 164 H 136 H Calcium 8.4 L 8.7 - Procedures Date of procedure: 01/04/18 Anesthesia: GETA Surgeon: Zaida Serrano MD Operation and Findings: PREOPERATIVE DIAGNOSIS 1. Right Upper lobe Lung Mass 2. Right upper lobe endobronchial obstruction with complete collapse 3. COPD POSTOPERATIVE DIAGNOSIS same PROCEDURES 1. Right posterolateral Muscle Sparing Thoracotomy 2. Right Upper lobectomy 3. Mediastinal Lymph Node Dissection 4. Intercostal Nerve Block SURGEON Zaida Serrano MD Assessment and Plan - Plan 62-year-old male with a history of alcohol abuse, withdrawal, COPD, peripheral artery disease, right lower lobe collapse seen during admission last month who was admitted on 12/26/2017 for left lower extremity revascularization. He underwent bronch in November 2017 and was found to have a large endobronchial mass obstructing right upper lobe mainstem bronchus. Bronchial washing was done and cytology was negative. Patient was supposed to follow up with oncologist. Unfortunately, due to social and insurance issues, he has not been able to follow up. Hematology-oncology was consulted again during this admission. 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 -Patient is homeless. Patient will likely need inpatient chemoradiation therapy unless outpatient arrangements are made. -Status post Right posterolateral Muscle sparing thoracotomy, Right upper lobectomy, Mediastinal lymph node dissection, intercostal nerve block. 01/04/18 -Radiation simulation was done on 01/31/2018. -Chemoradiation will likely continue until the end of February 2018 (7 weeks) . Peripheral artery disease Bilateral lower extremity edema Right lower extremity pain -Status post surgical intervention on 12/26/2017. -Continue aspirin and Plavix and Pravastatin. -Vascular surgery evaluated patient and recommended continuing diuretics. -Continue torsemide 10mg BID. Chronic respiratory failure COPD -Continue DuoNeb, Symbicort. Continue prednisone 30 mg daily. BPH - continue Tamsulosin 0.4mg Qday. Insomnia - continue Restoril 15mg QHS. Full code. Lovenox. Discharge plan: Discussed with MDR team - Patient can likely contribute to stay at a hotel/motel. However, he will require financial help. He can be discharged from medical standpoint. I have discussed with Oncologist Dr. Kovacs who also agrees with our discharge plan.
[2018-02-06] MEDS: Enoxaparin Inj 30 MG/0.3 ML Syringe SQ SCH (15:36)
[2018-02-06] MEDS: Temazepam 15 MG Capsule PO PRN (22:23)
[2018-02-07] MEDS: predniSONE 10 MG Tablet PO SCH (08:42)
[2018-02-07] MEDS: Senna/Docusate Sodium 8.6/50 MG Tablet PO SCH ×2 (08:42→21:52)
[2018-02-07] MEDS: Budesonide-Formoterol 160/4.5 MCG 6 GM Inhaler INH SCH ×2 (08:45→21:52)
--- NOTE | 2018-02-07 08:49 | P.PN ---
Subjective Interval history: Follow up for squamous cell lung cancer. Patient is doing well. No acute concerns. On room air, tolerating diet well. He is okay to go to [facility] if arrangements are made. Physical Exam Vital signs: Vital Signs 02/06/18 11:00 02/06/18 12:00 02/06/18 15:00 Temperature 98.1 F Pulse Rate 104 H 103 H 100 H Respiratory Rate 18 Blood Pressure 130/79 Pulse Oximetry 95 02/06/18 16:00 02/06/18 19:17 02/06/18 20:38 Temperature 98.1 F 97.8 F Pulse Rate 105 H 102 H 103 H Respiratory Rate 18 21 Blood Pressure 141/79 H 154/86 H Pulse Oximetry 95 96 02/06/18 21:05 02/06/18 23:41 02/06/18 23:45 Temperature 98.6 F Pulse Rate 95 H 93 H Respiratory Rate 18 18 Blood Pressure 128/68 Pulse Oximetry 95 02/07/18 02:00 02/07/18 03:15 02/07/18 04:00 Temperature 97.9 F Pulse Rate 91 H 93 H Respiratory Rate 18 19 Blood Pressure 110/59 L Pulse Oximetry 98 02/07/18 08:33 Temperature 98.0 F Pulse Rate 95 H Respiratory Rate 18 Blood Pressure 140/89 Pulse Oximetry 94 L Intake & Output 02/06/18 02/07/18 02/07/18 18:59 06:59 18:59 Intake Total 960 / 960 500 / 500 Output Total 1225 / 1225 1100 / 1100 Balance -265 / -265 -600 / -600 Weight 98.7 kg Intake: Oral 960 / 960 500 / 500 Output: Urine 1225 / 1225 1100 / 1100 Other: Date of Last Bowel Movement 02/06/18 # Bowel Movements 1 Narrative: GENERAL: Alert, NAD. SKIN: Warm and dry. HEAD: Normocephalic. EYES: No scleral icterus. No injection or drainage. NECK: Supple, trachea midline. No JVD or lymphadenopathy. CARDIOVASCULAR: Regular rate and rhythm without murmurs, gallops, or rubs. RESPIRATORY: Moderate air entry. No accessory muscle use. GASTROINTESTINAL: Abdomen soft, non-tender, nondistended. MUSCULOSKELETAL: No cyanosis. Lower extremity edema 1+. Not as painful. BACK: Nontender without obvious deformity. No CVA tenderness. - Urinary Catheter Management Indwelling Urethral Catheter Cath placed during this visit: yes, but has since been removed by the nurse Reason for continuing: Decision to DC catheter Insertion date: 01/05/18 Insertion time: 22:00 Removal date: 01/09/18 Removal time: 11:00 Straight Cath placed during this visit: yes, but has since been removed by the nurse Reason for continuing: Acute urinary retention Insertion date: 01/05/18 Insertion time: 17:00 Removal date: 01/05/18 Removal time: 17:08 Results - Labs CBC & Chem 7: 02/05/18 10:09 02/06/18 05:03 - Procedures Date of procedure: 01/04/18 Anesthesia: GETA Surgeon: Zaida Serrano MD Operation and Findings: PREOPERATIVE DIAGNOSIS 1. Right Upper lobe Lung Mass 2. Right upper lobe endobronchial obstruction with complete collapse 3. COPD POSTOPERATIVE DIAGNOSIS same PROCEDURES 1. Right posterolateral Muscle Sparing Thoracotomy 2. Right Upper lobectomy 3. Mediastinal Lymph Node Dissection 4. Intercostal Nerve Block SURGEON Zaida Serrano MD Assessment and Plan - Plan 62-year-old male with a history of alcohol abuse, withdrawal, COPD, peripheral artery disease, right lower lobe collapse seen during admission last month who was admitted on 12/26/2017 for left lower extremity revascularization. He underwent bronch in November 2017 and was found to have a large endobronchial mass obstructing right upper lobe mainstem bronchus. Bronchial washing was done and cytology was negative. Patient was supposed to follow up with oncologist. Unfortunately, due to social and insurance issues, he has not been able to follow up. Hematology-oncology was consulted again during this admission. 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 -Patient is homeless. Patient will likely need inpatient chemoradiation therapy unless outpatient arrangements are made. -Status post Right posterolateral Muscle sparing thoracotomy, Right upper lobectomy, Mediastinal lymph node dissection, intercostal nerve block. 01/04/18 -Radiation simulation was done on 01/31/2018. -Chemoradiation will likely continue until the end of February 2018 (7 weeks) . Peripheral artery disease Bilateral lower extremity edema Right lower extremity pain -Status post surgical intervention on 12/26/2017. -Continue aspirin and Plavix and Pravastatin. -Vascular surgery evaluated patient and recommended continuing diuretics. -Continue torsemide 10mg BID. Chronic respiratory failure COPD -Continue DuoNeb, Symbicort. Continue prednisone 30 mg daily. BPH - continue Tamsulosin 0.4mg Qday. Insomnia - continue Restoril 15mg QHS. Full code. Lovenox. Discharge plan: Discharge when safe placement is arranged.
[2018-02-07] MEDS: Enoxaparin Inj 30 MG/0.3 ML Syringe SQ SCH (14:12)
[2018-02-07] MEDS: Temazepam 15 MG Capsule PO PRN (21:56)
[2018-02-08] MEDS: predniSONE 10 MG Tablet PO SCH (08:46)
[2018-02-08] MEDS: Senna/Docusate Sodium 8.6/50 MG Tablet PO SCH (08:48)
[2018-02-08] MEDS: Budesonide-Formoterol 160/4.5 MCG 6 GM Inhaler INH SCH (08:50)
[2018-02-08 08:59] VITALS: RESP 20
--- NOTE | 2018-02-08 11:00 | P.PN ---
Subjective Interval history: Follow up for squamous cell lung cancer. Patient is currently doing well. No acute concerns. No fever or chills. On room air. Physical Exam Vital signs: Vital Signs 02/07/18 11:00 02/07/18 12:00 02/07/18 14:28 Temperature 97.9 F 97.1 F L Pulse Rate 103 H 102 H 107 H Respiratory Rate 18 18 Blood Pressure 129/68 148/65 H Pulse Oximetry 96 96 02/07/18 15:00 02/07/18 19:56 02/07/18 20:00 Temperature 97.9 F Pulse Rate 99 H 98 H Respiratory Rate 18 20 Blood Pressure 131/78 Pulse Oximetry 95 02/07/18 20:41 02/08/18 00:05 02/08/18 00:09 Temperature 98.3 F Pulse Rate 96 H 90 97 H Respiratory Rate 20 Blood Pressure 138/75 Pulse Oximetry 97 02/08/18 01:45 02/08/18 03:28 02/08/18 04:00 Temperature 97.8 F Pulse Rate 111 H 96 H Respiratory Rate 24 20 18 Blood Pressure 109/54 L Pulse Oximetry 98 02/08/18 04:04 02/08/18 08:00 Temperature 97.4 F L Pulse Rate 105 H 92 H Respiratory Rate 20 Blood Pressure 145/76 H Pulse Oximetry 98 Intake & Output 02/07/18 02/08/18 02/08/18 18:59 06:59 18:59 Intake Total 1019 / 1019 960 / 960 Output Total 2770 / 2770 1000 / 1000 Balance -1751 / -1751 -40 / -40 Weight 98.5 kg Intake: Oral 1019 / 1019 960 / 960 Output: Urine 2770 / 2770 1000 / 1000 Other: Date of Last Bowel Movement 02/06/18 02/07/18 02/06/18 # Bowel Movements 1 Narrative: GENERAL: Alert, NAD. SKIN: Warm and dry. HEAD: Normocephalic. EYES: No scleral icterus. No injection or drainage. NECK: Supple, trachea midline. No JVD or lymphadenopathy. CARDIOVASCULAR: Regular rate and rhythm without murmurs, gallops, or rubs. RESPIRATORY: Moderate air entry. No accessory muscle use. GASTROINTESTINAL: Abdomen soft, non-tender, nondistended. MUSCULOSKELETAL: No cyanosis. Lower extremity edema 1+. Not as painful. BACK: Nontender without obvious deformity. No CVA tenderness. - Urinary Catheter Management Indwelling Urethral Catheter Cath placed during this visit: yes, but has since been removed by the nurse Reason for continuing: Decision to DC catheter Insertion date: 01/05/18 Insertion time: 22:00 Removal date: 01/09/18 Removal time: 11:00 Straight Cath placed during this visit: yes, but has since been removed by the nurse Reason for continuing: Acute urinary retention Insertion date: 01/05/18 Insertion time: 17:00 Removal date: 01/05/18 Removal time: 17:08 Results - Labs CBC & Chem 7: 02/05/18 10:09 02/06/18 05:03 - Procedures Date of procedure: 01/04/18 Anesthesia: GETA Surgeon: Zaida Serrano MD Operation and Findings: PREOPERATIVE DIAGNOSIS 1. Right Upper lobe Lung Mass 2. Right upper lobe endobronchial obstruction with complete collapse 3. COPD POSTOPERATIVE DIAGNOSIS same PROCEDURES 1. Right posterolateral Muscle Sparing Thoracotomy 2. Right Upper lobectomy 3. Mediastinal Lymph Node Dissection 4. Intercostal Nerve Block SURGEON Zaida Serrano MD Assessment and Plan - Plan 62-year-old male with a history of alcohol abuse, withdrawal, COPD, peripheral artery disease, right lower lobe collapse seen during admission last month who was admitted on 12/26/2017 for left lower extremity revascularization. He underwent bronch in November 2017 and was found to have a large endobronchial mass obstructing right upper lobe mainstem bronchus. Bronchial washing was done and cytology was negative. Patient was supposed to follow up with oncologist. Unfortunately, due to social and insurance issues, he has not been able to follow up. Hematology-oncology was consulted again during this admission. 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 -Patient is homeless. Patient will likely need inpatient chemoradiation therapy unless outpatient arrangements are made. -Status post Right posterolateral Muscle sparing thoracotomy, Right upper lobectomy, Mediastinal lymph node dissection, intercostal nerve block. 01/04/18 -Radiation simulation was done on 01/31/2018. -Chemoradiation will likely continue until the end of February 2018 (7 weeks) . Peripheral artery disease Bilateral lower extremity edema Right lower extremity pain -Status post surgical intervention on 12/26/2017. -Continue aspirin and Plavix and Pravastatin. -Vascular surgery evaluated patient and recommended continuing diuretics. -Continue torsemide 10mg BID. Chronic respiratory failure COPD -Continue DuoNeb, Symbicort. Continue prednisone 30 mg daily. BPH - continue Tamsulosin 0.4mg Qday. Insomnia - continue Restoril 15mg QHS. Full code. Reid. 02/08/2019: Discharge when safe placement is arranged.
[2018-02-08 12:04] VITALS: BP 136/74; TEMP 98.3
[2018-02-08 14:41] VITALS: O2SAT 94
[2018-02-08 15:05] VITALS: PULSE 92
[2018-02-08] MEDS: Enoxaparin Inj 30 MG/0.3 ML Syringe SQ SCH (19:05)
--- NOTE | 2018-02-09 23:47 | P.DS ---
Date of admission: 01/04/18 11:15 Primary care physician: No Primary Care Physician Brief History from admission: 62-year-old male with a history of alcohol abuse, withdrawal, COPD, peripheral artery disease, right lower lobe collapse seen during admission last month who presents for left lower extremity revascularization. I have been contacted by primary service to report that patient is too weak and short of breath to be discharged home. Patient reports progressively worsening shortness of breath over the past 2 weeks. He reports a chronic cough productive of white sputum which is unchanged over the past month. Denies any chest pain. Denies any fevers or chills. Patient reports that he is homeless, and is living in a rental truck. DS: Medications - Discharge Medications Prescriptions: clopidogrel [Plavix] 75 mg PO DAILY #90 tab pantoprazole 40 mg PO HS #30 tab prednisone 10 mg PO DAILY #15 tab tamsulosin 0.4 mg PO DAILY #90 cap torsemide 10 mg PO BID@0900,1800 #60 tab DS: Summary Hospital Course: 62-year-old male with a history of alcohol abuse, withdrawal, COPD, peripheral artery disease, right lower lobe collapse seen during admission last month who was admitted on 12/26/2017 for left lower extremity revascularization. He underwent bronch in November 2017 and was found to have a large endobronchial mass obstructing right upper lobe mainstem bronchus. Bronchial washing was done and cytology was negative. Patient was supposed to follow up with oncologist. Unfortunately, due to social and insurance issues, he has not been able to follow up. Hematology-oncology was consulted again during this admission. 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 -Patient is homeless. Patient will likely need inpatient chemoradiation therapy unless outpatient arrangements are made. -Status post Right posterolateral Muscle sparing thoracotomy, Right upper lobectomy, Mediastinal lymph node dissection, intercostal nerve block. 01/04/18 -Radiation simulation was done on 01/31/2018. -Chemoradiation will likely continue until the end of February 2018 (7 weeks) . -Case management has arranged a motel for patient to stay until the end of his treatment. Peripheral artery disease Bilateral lower extremity edema Right lower extremity pain -Status post surgical intervention on 12/26/2017. -Continue aspirin and Plavix and Pravastatin. -Vascular surgery evaluated patient and recommended continuing diuretics. -Continue torsemide 10mg BID. Chronic respiratory failure COPD -Continue DuoNeb, Symbicort. Continue prednisone 30 mg daily. BPH - continue Tamsulosin 0.4mg Qday. Insomnia - continue Restoril 15mg QHS. Full code. Lovenox while in the hospital. - Time Spent with Patient Total time spent providing and/or coordinating discharge services: Less than 30 minutes - Quality: VTE Deep Vein Thrombosis/Pulmonary Embolism Present on Admission: No Results Procedures completed during hospitalization: Date of procedure: 01/04/18 Anesthesia: GETA Surgeon: Zaida Serrano MD Operation and Findings: PREOPERATIVE DIAGNOSIS 1. Right Upper lobe Lung Mass 2. Right upper lobe endobronchial obstruction with complete collapse 3. COPD POSTOPERATIVE DIAGNOSIS same PROCEDURES 1. Right posterolateral Muscle Sparing Thoracotomy 2. Right Upper lobectomy 3. Mediastinal Lymph Node Dissection 4. Intercostal Nerve Block SURGEON Zaida Serrano MD - Impressions ITS Impressions Chest CT 12/29/17 16:03 CONCLUSION: 1. Persistent collapse of the right upper lobe with evidence of right upper lobe bronchial occlusion. 2. Discrete mass in the right suprahilar region cannot be distinguished from collapsed lung. 3. COPD 4. Otherwise stable exam Chest X-Ray 01/11/18 06:00 CONCLUSION: Unchanged pneumothorax. Venous Doppler Study 01/25/18 00:00 CONCLUSION: 1. No evidence of thrombosis. Extensive subcutaneous edema. Abdomen Ultrasound 01/29/18 00:00 CONCLUSION: 1. No evidence of ascites. Discharge Plan - Discharge Disposition Patient Disposition: 01 Discharge Home - Discharge Condition Condition: Fair - Discharge Order Discharge Orders: Discharge Order (Routine); Ordered 02/08/18 Ordered By: Shayla Wilson Vascular Surgery Clear for Discharge (Routine); Ordered 01/10/18 Ordered By: Toshia Trivedi - Discharge Details Anticipated Discharge Date: 02/08/18 - Physicians Team Primary Care Provider: Primary Care Physici,No Attending Provider: Shayla Wilson Other Providers: Franklin Kovacs MD ; Isaias Miranda MD ; Lisandro Locke MD ; Zaida Serrano MD ; Mark Henry MD - Rxs /Orders / Referrals /Forms Prescriptions: New aspirin 81 mg Tablet,Delayed Release (Dr/Ec) 81 mg PO DAILY RF: 0 clopidogrel [Plavix] 75 mg Tablet 75 mg PO DAILY Qty: 90 RF: 3 pantoprazole 40 mg Tablet,Delayed Release (Dr/Ec) 40 mg PO HS Qty: 30 RF: 11 prednisone 5 mg Tablet 10 mg PO DAILY Qty: 15 RF: 0 tamsulosin 0.4 mg Capsule,Extended Release 24hr 0.4 mg PO DAILY Qty: 90 RF: 3 torsemide 5 mg Tablet 10 mg PO BID@0900,1800 Qty: 60 RF: 11 Continue albuterol sulfate [ProAir HFA] 90 mcg/actuation Hfa Aerosol Inhaler 2 puff INHALATION Q6H PRN (Reason: Shortness Of Breath Or Wheezing) fluticasone-salmeterol [Advair Diskus] 250-50 mcg/dose Blister With Device 250 mg Inhalation QID lovastatin 40 mg Tablet 40 mg PO DAILY Discontinued lisinopril 10 mg Tablet 10 mg PO DAILY No Action hydrocodone-acetaminophen [Center] 5-325 mg Tablet 1 tab PO Q4H PRN (Reason: Acute Pain) Referrals: Primary Care Nadya Castro [Primary Care Provider] - See Instructions Lisandro Locke MD [Physician] - See Instructions (Your surveillance DEON exam is scheduled on 01/24/18 at 1:00 Your follow up appointment is scheduled on 01/25/18 at 1:30) Franklin Kovacs MD [Physician] - See Instructions (Follow up within 2 weeks. ) - Discharge Instructions Patient Printed Instructions: Prednisone (By mouth), Aspirin (By mouth), Torsemide (By mouth), Tamsulosin (By mouth), Clopidogrel (By mouth), Pantoprazole (By mouth), How to Stop Smoking (GEN), Lung Lobectomy (DC), Cigarette Smoking and Your Health (GEN), Peripheral Vascular Disease (GEN), Angiogram (DC) Additional Instructions: Incentive spirometry Q1 hr x 10, while awake, also use acapella device hourly whole Chest wall precautions: NO pushing or pulling, ( pt must use chest pillow support chest with all activities and with coughing Daily incision care: ok to shower ( 48hrs after chest tube removed) and then daily, no tub bath. Wash all incisions with liquid dial soap, clean wash cloth to each site, rinse and pat dry. Observe for any signs of infection, such as drainage which is dark yellow, amaya, green or foul smelling. Immediately report to the surgeon any drainage from the chest incision, or legs, and for any abnormal drainage from the chest tube sites. Notify surgeon if any temp > 101.5 degrees F. When specialty dressing removed/ or if you do not have one, continue to shower daily as above, then rinse and pat incision dry and paint with betadine daily x 5 days. Allow steri strips to fall off if you have any. Avoid lotions, creams, salves, oils, etc. for the first month For Dr. Sheikh patients , please obtain PA & Lat CXR in 2 weeks, results to Dr. Sheikh ( prescription will be given) ( ) (Tele: ) , F/U appointment: as per DC instructions: PCP in 2 weeks, CV surgeon 2 weeks, Restaurant Assistant Manager 3-4 weeks For any questions regarding incisions/ dressing / meds / post op care or above Symptoms, Tuesday 8am-5pm Heart & Vascular Surgery Office ( Dr. Serrano & Dr. Sheikh), After Hours / Nights (5pm -8am) Weekends and Holidays Please call [facility] Cardiac [facility] Unit ([facility]) Charge Nurse
== END 2018-02-08 19:19 | disposition home or self-care (01) ==
LOC: HSDC 08:55 → HSDI 08:55 → HCPC 15:04 → N07 12-30 17:49 → HCPC 01-04 11:42 → HCIN 01-10 10:52 → HCIS 01-12 01:00 → HCIN 02-06 18:23
PROVIDERS: ADMIT Hospitalist; ATTEND Hospitalist
PROC: ANGIOLE (2017-12-26 11:51)

== ENCOUNTER 2018-02-08 20:13 | Inpatient (IN) ==
--- NOTE | 2018-02-08 21:17 | ED ---
HPI General Chief complaint: Respiratory Symptoms Stated complaint: Evac/Respiratory Time Seen by Provider: 02/08/18 20:18 Source: patient and EMS Mode of arrival: EMS Limitations: no limitations History of Present Illness HPI narrative: Patient is a 62-year-old male presenting to the emergency department for evaluation of shortness of breath. Patient was just discharged from [facility] approximately 40 minutes prior to coming back. He went to a hotel which was arranged for him, he walked from the lobby to his room which is approximately 12 feet and became short of breath. Upon EMS arrival patient was in a tripod position a pulse ox was 88%, patient was tachypneic. Patient reported that he has been on oxygen while he was in the hospital and was discharged without it. He reports a history of lung cancer status post right upper lobectomy. He denies any chest pain, dizziness, headache, nausea, vomiting. Onset (ago): hour(s) (1) Severity: moderate Associated symptoms: shortness of breath Related Data Home Medications Medication Instructions Recorded Confirmed albuterol sulfate [ProAir HFA] 2 puff INHALATION Q6H PRN 12/07/17 02/09/18 fluticasone-salmeterol [Advair 250 mg INHALATION QID 12/07/17 02/09/18 Diskus] lovastatin 40 mg PO DAILY 12/07/17 02/09/18 Previous Rx's Medication Instructions Recorded aspirin 81 mg PO DAILY tab 02/08/18 clopidogrel [Plavix] 75 mg PO DAILY #90 tab 02/08/18 pantoprazole 40 mg PO HS #30 tab 02/08/18 prednisone 10 mg PO DAILY #15 tab 02/08/18 tamsulosin 0.4 mg PO DAILY #90 cap 02/08/18 torsemide 10 mg PO BID@0900,1800 #60 tab 02/08/18 Allergies Allergy/AdvReac Type Severity Reaction Status Date / Time codeine Allergy Severe Hives Verified 02/09/18 07:24 Review of Systems ROS: all other systems reviewed are negative [facility] Medical History Medical History Mass of upper lobe of right lung (Acute) H/O chronic pancreatitis (Acute) Femoral artery occlusion, right (Acute) MRSA (methicillin resistant Staphylococcus aureus) (Acute) Homelessness (Acute) Tobacco abuse (Acute) Alcohol abuse (Acute) COPD (chronic obstructive pulmonary disease) (Acute) Hyperlipemia (Acute) Hypertension (Acute) Surgical History Surgical History H/O hand surgery (Acute) History of tonsillectomy (Acute) Status post bilateral LASIK surgery (Acute) 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) Family History Family History Mother Unknown family medical history Father Cancer Social History Social History Substance History: No History of Abuse Second Hand Smoke Exposure: Yes Smoking Status: Heavy tobacco smoker Tobacco Type: Cigarettes Packs Per Day: 1 Cigarettes Per Day: 20.0 years: 35 How Often Do You Have a Drink Containing Alcohol: 4 or more times a week Recent Travel in [facility] within the Last 8 Weeks: No Recent Out of Country Travel within the Last 8 Weeks: No Immunization History Tetanus Immunization: <5 Years Hx Influenza Vaccine This Season: Yes Exam Narrative Exam Narrative: GENERAL: Well-developed, well-nourished, alert elderly gentleman. SKIN: Focused skin assessment warm/dry. HEAD: Atraumatic. Normocephalic. EYES: Pupils equal and round. No scleral icterus. No injection or drainage. ENT: No nasal bleeding or discharge. Mucous membranes pink and moist. NECK: Trachea midline. No JVD. CARDIOVASCULAR: Tachycardic. No murmur appreciated. RESPIRATORY: Tripod positioning, retractions, tachypneic. GASTROINTESTINAL: Abdomen soft, non-tender, nondistended. Hepatic and splenic margins not palpable. MUSCULOSKELETAL: No obvious deformities. No clubbing. No cyanosis. No edema. NEUROLOGICAL: Awake and alert. No obvious cranial nerve deficits. Motor grossly within normal limits. Normal speech. PSYCHIATRIC: Appropriate mood and affect; insight and judgment normal. Course Initial Documented Vital Signs Temperature 98.0 F 02/08/18 20:20 Pulse Rate 107 H 02/08/18 20:20 Respiratory Rate 22 02/08/18 20:20 Blood Pressure 156/70 H 02/08/18 20:20 Pulse Oximetry 97 02/08/18 20:20 Last Documented Vital Signs Temperature 98 F 02/09/18 14:47 Pulse Rate 91 H 02/09/18 15:00 Respiratory Rate 19 02/09/18 15:00 Blood Pressure 148/77 H 02/09/18 14:47 Pulse Oximetry 100 02/09/18 15:00 Sign Out Sign Out Data: Patient Sign Out occurred on 02/08/18 at 22:48. Patient's care was discussed, and care was transferred from Jennifer Montenegro to Marilu Giordano MD. Sign Out Comment: Case management consulted for home O2. Pt has medicaid and oxygen will not be delivered at night. Pt will be kept in ED until the morning when home O2 can be arranged. Pt becomes very symptomatic when ambulating off of oxygen Last updated by Jennifer Montenegro ARNP at 02/08/18 22:38 Medical Decision Making CAITLIN Attestation CAITLIN supervised visit: Yes Attestation: I, Dr. Vivas, have reviewed the advance practice practitioner's documentation and am in agreement, met with the patient face to face, made the diagnosis, and the medical decision making was done by me. *My assessment and Findings: Patient seen and examined by me this afternoon, has a history of recent pneumonectomy from lung cancer, he was discharged to a hotel and upon first getting to the hotel he was starting to become short of breath again and has extreme limitations in physical exertion. He was seen by 2 of my respiratory therapist in the emergency department and become short of breath before he can even get to the threshold of the door from the examination table. A CT examination was performed with IV contrast which did not show any acute changes, he does have a chronic pleural effusion and a rib fracture which probably from his surgery. He was examined again by respiratory therapy and continues to get very short of breath with minimal exertion. I think it is unreasonable to send this patient home at this time is have been urged by several my staff members that he is not stable to go home. Discussed with Dr. Wilson for readmission of the hospital and he is agreeable. We discussed possibly for palliative care consults, he may need a CT PE protocol in the near future as well. Patient was also discussed with case management who agrees with the patient's admission. MDM Narrative Medical decision making narrative: Patient is a 62-year-old male presented to the emergency department for evaluation of shortness of breath after being discharged. Patient is tachypneic with retractions. Patient is tachycardic and tripoding on arrival. Patient was placed on 2 L of oxygen, O2 sat trended up to 97%. Patient was given a [employer], case management consult was placed for home O2. manager protein said that patient has Medicaid so oxygen would not be delivered throughout the night. Patient will be kept in the emergency department until the morning. Walking O2 sat is ordered. Accepted in transfer of care from nurse practitioner; patient is waiting for case management to arrange for outpatient supplemental oxygen; patient asymptomatic on supplemental oxygen however we do not have access to provide patient with supplemental oxygen at this time for disposition from the emergency department at this time case management will arrange for supplemental oxygen in the a.m. patient will continue to get his outpatient medications administered and every 6 hour bronchodilator therapy while remaining in the emergency department overnight. Medical Screen Exam Complete: Yes Emergency Medical Condition: Yes Differential Diagnosis Differential Diagnosis: COPD versus deconditioning versus hypoxia versus other Medical Records Medical records reviewed: Yes I reviewed the patient's medical records. Lab Data Result diagrams: 02/09/18 13:20 02/09/18 13:20 Lab Results 02/09/18 02/09/18 Range/Units 13:20 13:20 WBC 14.6 H (4.0-11.0) th/mm3 RBC 2.66 L (4.50-5.90) mil/mm3 Hgb 8.2 L (13.0-17.0) gm/dL Hct 26.0 L (39.0-51.0) % MCV 97.7 (80.0-100.0) fL MCH 30.7 (27.0-34.0) pg MCHC 31.4 L (32.0-36.0) % RDW 18.1 H (11.6-17.2) % Plt Count 226 D (150-450) th/mm3 MPV 8.7 (7.0-11.0) fL Prelim Diff (Auto) Manual diff required WBC Differential Manual diff final Seg Neuts % (Manual) 54 (16-70) % Band Neuts % (Manual) 8 H (0-6) % Lymphocytes % (Manual) 18 (9-44) % Monocytes % (Manual) 7 (0-8) % Myelocytes % (Man) 12 H (0-0) % Promyelocytes % (Man) 1 H (0-0) % Abs Neuts (Manual) 11.0 H (1.8-7.7) th/mm3 Differential Comment . Platelet Estimate Normal (Normal) Platelet Morphology Normal (Normal) Tear Drop Cells 1+ H (None) Sodium 141 (136-145) meq/L Potassium 3.8 (3.5-5.1) meq/L Chloride 104 (98-107) meq/L Carbon Dioxide 28.5 (21.0-32.0) meq/L Anion Gap 9 (5-15) meq/L BUN 16 (7-18) mg/dL Creatinine 0.67 (0.60-1.30) mg/dL Estimated GFR Greater than 89 (>89) mL/min Random Glucose 104 (74-106) mg/dL Calcium 8.5 (8.5-10.1) mg/dL Total Bilirubin 0.2 (0.2-1.0) mg/dL AST 19 (15-37) U/L ALT 29 (12-78) U/L Alkaline Phosphatase 70 (45-117) U/L Troponin I Less than 0.02 L (0.02-0.05) ng/mL Total Protein 6.7 (6.4-8.2) g/dL Albumin 3.1 L (3.4-5.0) g/dL Imaging Data Radiologist's impression: Chest X-Ray 02/09/18 12:19 CONCLUSION: Bibasilar streaky densities are noted (right worse than left) consistent with atelectasis and/or infiltrates. Chest CT 02/09/18 13:12 CONCLUSION: 1. The patient's had a right upper lobe ectomy since the previous study. There is a right-sided rib fracture and a sclerotic right fifth rib both new since the previous study I suspect related to surgery. The remainder of concern is a prominent low density possible lymph node in the right paratracheal region which will have to be followed. Moderate size pleural effusion and a moderate- sized superior pericardial recess Discharge Plan Discharge Disposition Patient Disposition: 30 Still Patient Discharge Condition Condition: Stable Discharge Details Diagnosis: COPD (chronic obstructive pulmonary disease) Physicians Team ED Provider: Lisandro Vivas Primary Care Provider: Emi Stone Rxs /Orders / Referrals /Forms Prescriptions: No Action fluticasone-salmeterol [Advair Diskus] 250-50 mcg/dose Blister With Device 250 mg Inhalation QID RF: 0 lovastatin 40 mg Tablet 40 mg PO DAILY RF: 0 albuterol sulfate [ProAir HFA] 90 mcg/actuation Hfa Aerosol Inhaler 2 puff INHALATION Q6H PRN (Reason: Shortness Of Breath Or Wheezing) RF: 0 clopidogrel [Plavix] 75 mg Tablet 75 mg PO DAILY Qty: 90 RF: 3 aspirin 81 mg Tablet,Delayed Release (Dr/Ec) 81 mg PO DAILY RF: 0 tamsulosin 0.4 mg Capsule,Extended Release 24hr 0.4 mg PO DAILY Qty: 90 RF: 3 torsemide 5 mg Tablet 10 mg PO BID@0900,1800 Qty: 60 RF: 11 pantoprazole 40 mg Tablet,Delayed Release (Dr/Ec) 40 mg PO HS Qty: 30 RF: 11 prednisone 5 mg Tablet 10 mg PO DAILY Qty: 15 RF: 0 Referrals: Emi Stone ARNP [Primary Care Provider] - See Instructions Status ED Status: Pending Admission
--- NOTE | 2018-02-09 13:09 | XR ---
EXAM DATE: 02/09/2018 12:53 PM EDT AGE/SEX: 62 years / Male INDICATIONS: . Shortness of breath. CLINICAL DATA: This is the patient's initial encounter. Patient reports that signs and symptoms have been present for 2 days and indicates a pain score of 0/10. MEDICAL/SURGICAL HISTORY: Carcinoma, lung. Chronic obstructive pulmonary disease. Pancreatitis. Hypertension. Alcohol abuse. Hyperlipidemia. Mass of the upper right love of lung. MRSA. Tobacco abu se. . Tonsillectomy. Hand surgery. Heart stent. Right lobectomy. COMPARISON: [facility] – [place], CHEST 1V SINGLE AP, 01/11/2018. . FINDINGS: Bibasilar streaky densities are noted (right worse than left) consistent with atelectasis and/or infi ltrates. The heart is stable. CONCLUSION: Bibasilar streaky densities are noted (right worse than left) consistent with atelectasis and/or infi ltrates. Electronically signed by: Lisandro Rodriguez MD 02/09/2018 1:08 PM EDT
[2018-02-09 13:56] LABS: Hemoglobin 8.2 gm/dL (13.0-17.0); Mean Corpuscular HGB Conc 31.4 % (32.0-36.0); Mean Corpuscular Hemoglobin 30.7 pg (27.0-34.0); Mean Corpuscular Volume 97.7 fL (80.0-100.0); Mean Platelet Volume 8.7 fL (7.0-11.0); Platelet Count 226 th/mm3 (150-450); Red Blood Count 2.66 mil/mm3 (4.50-5.90); Red Cell Distribution Width 18.1 % (11.6-17.2); White Blood Count 14.6 th/mm3 (4.0-11.0)
[2018-02-09 14:18] LABS: Alanine Aminotransferase 29 U/L (12-78); Albumin 3.1 g/dL (3.4-5.0); Anion Gap 9 meq/L (5-15); Aspartate Aminotransferase 19 U/L (15-37); Blood Urea Nitrogen 16 mg/dL (7-18); Calcium 8.5 mg/dL (8.5-10.1); Carbon Dioxide 28.5 meq/L (21.0-32.0); Chloride 104 meq/L (98-107); Glomerular Filtration Rate Greater Than 89 mL/min (>89); Glucose,Random 104 mg/dL (74-106); Potassium 3.8 meq/L (3.5-5.1); Sodium 141 meq/L (136-145)
[2018-02-09 14:21] LABS: Alkaline Phosphatase 70 U/L (45-117); Total Protein 6.7 g/dL (6.4-8.2)
--- NOTE | 2018-02-09 14:29 | CT ---
EXAM DATE: 02/09/2018 2:21 PM EDT AGE/SEX: 62 years / Male INDICATIONS: Shortness of breath. CLINICAL DATA: This is the patient's initial encounter. Patient reports that signs and symptoms have been present for 1 day and indicates a pain score of 0/10. MEDICAL/SURGICAL HISTORY: Chronic obstructive pulmonary disease. Hypertension. Peripheral vascula r disease. None. RADIATION DOSE: 16.79 CTDI (mGy) [place] [facility] [place]29/[place]. . TECHNIQUE: Multiple contiguous axial images were obtained through the chest during bolus infusion of 70 ml Omnipaque 350 (iohexol) nonionic water-soluble contrast as a single exam dose. Images were obtained in suspended respiration using multiple row detector helical technique. Using automated exp osure control and adjustment of the mA and/or kV according to patient size, radiation dose was kept a s low as reasonably achievable to obtain optimal diagnostic quality images. DICOM format image data is available electronically for review and comparison. FINDINGS: Lungs: The patient's had a right upper lobectomy. There is a moderate size right pleural effusion in creased since December. There is some minimal atelectasis in the right middle lobe. Left lung is relati vely clear. There are some mild emphysema left lung apex. Mediastinum: There is a small amount of fluid in the superior pericardial recess. Between the azygos vein and the superior pericardial recess is a rounded low-density area soft tissue measuring 1.6 x 2 .5 cm across (image 21). This could be a lymph node. This will have to be followed no other lymphaden opathy is identified. Pleurae: Moderate size right pleural effusion. Axillae: Unremarkable. Bony Structures: There is a right-sided rib fracture, the sixth rib likely iatrogenic. There is some sclerosis of the right fifth rib anteriorly new from the previous chest CT again likely iatrogenic Miscellaneous: The examination was extended to include the upper abdomen, and both adrenal glands ar e normal in size and configuration. CONCLUSION: 1. The patient's had a right upper lobe ectomy since the previous study. There is a right-sided rib fracture and a sclerotic right fifth rib both new since the previous study I suspect related to surge ry. The remainder of concern is a prominent low density possible lymph node in the right paratracheal region which will have to be followed. Moderate size pleural effusion and a moderate-sized superior pericardial recess Electronically signed by: Brannon Chow MD 02/09/2018 2:27 PM EDT
[2018-02-09 14:31] LABS: Lymphocytes 18 % (9-44); Monocytes 7 % (0-8); Myelocytes 12 % (0-0); Promyelocyte 1 % (0-0); Tear Drop Cells 1+
[2018-02-09 14:32] LABS: Platelet Estimate Normal (Normal); Platelet Morphology Normal (Normal)
[2018-02-09] MEDS ORDERED: Bisacodyl 10 MG Supp RECTAL PRN (16:03)
[2018-02-09] MEDS: Senna/Docusate Sodium 8.6/50 MG Tablet PO SCH (20:26)
--- NOTE | 2018-02-09 22:58 | P.HP ---
History of Present Illness Service: Hospitalist Primary Care Physician: Emi Stone Chief Complaint: Shortness of breath History of Present Illness: Mr. Garcia is a 62 year old male with a recently diagnosed right lung squamous cell lung cancer, COPD, PAD who returned to the hospital on the same day of discharge (02/08/2018) due to shortness of breath. Patient had an extensive hospitalization from 12/26/2017 - 02/08/2018. He was admitted on 12/26/2017 for revascularization of right lower extremity. During this immediate past hospitalization, he was followed by Oncology, radiation oncology as well. Patient was sent home on 02/08/2018 to a motel with plans to continue concurrent chemoradiation to be continued until the end of February 2018. Unfortunately, patient went to the motel and when he opened the door to his room, it was extremely hot and he immediately experienced significant dyspnea. He also became somewhat anxious, panicked. Subsequently, he sought medical attention. He did not have any cough, chest pain, fever, chills. Prior to discharge, patient was doing well on room air. In the ED, CT chest indicates moderate right sided pleural effusion. - Diagnosis (1) Pleural effusion, right (2) Squamous cell lung cancer (3) PAD (peripheral artery disease) Inpatient Certification: I certify that the inpatient services were ordered in accordance with Medicare regulations governing the order. This includes certification that hospital inpatient services are reasonable and necessary and in the case of services not specified as inpatient-only under 42 CFR 419.22(n), that they are appropriately provided as inpatient services in accordance to with the 2-midnight benchmark under 43 CFR 412.3(e) Estimated Total Length of Stay (Days): 3 Plans for Post Hospital Care: Not yet determined Review of Systems All other systems reviewed negative except as stated in HPI PMFSH - History History Provided By: Patient - Medical History Medical History: Medical History (Last Reviewed 02/09/18 @ 23:55 by Shayla Wilson DO) Mass of upper lobe of right lung (Acute) H/O chronic pancreatitis (Acute) Femoral artery occlusion, right (Acute) MRSA (methicillin resistant Staphylococcus aureus) (Acute) Homelessness (Acute) Tobacco abuse (Acute) Alcohol abuse (Acute) COPD (chronic obstructive pulmonary disease) (Acute) Hyperlipemia (Acute) Hypertension (Acute) - Surgical History Surgical History: Surgical History (Last Reviewed 02/09/18 @ 23:55 by Shayla Wilson DO) H/O hand surgery (Acute) History of tonsillectomy (Acute) Status post bilateral LASIK surgery (Acute) 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) - Family History Family History: Family History (Last Reviewed 02/09/18 @ 23:55 by Shayla Wilson DO) Mother Unknown family medical history Father Cancer - Social History I have reviewed the patient's Social History: Yes - Tobacco History Second Hand Smoke Exposure: Yes Tobacco Use In Past 30 Days: Yes Smoking Status: Current every day smoker Tobacco Type: Cigarettes Packs Per Day: 1 years: 35 - Alcohol History How Often Do You Have a Drink Containing Alcohol: 4 or more times a week - Substance Use History Substance History: Active Abuse - Travel History Recent Travel in the [place] Within the Last 8 Weeks: No Recent Travel Out of the Country Within the Last 8 Weeks: No - Immunization History Tetanus Immunization: <5 Years Hx Influenza Vaccine This Season: Yes Medications and Allergies Active Medications: Active Medications Al Hydroxide/Mg Hydroxide (Milk Of Magnesia Liq) 30 ml PO Q12H PRN PRN Reason: Mild Constipation Albuterol (Duoneb Neb (Prn)) 1 ampul NEB Q4HR NEB PRN PRN Reason: DYSPNEA Bisacodyl (Dulcolax Supp) 10 mg RECTAL DAILY PRN PRN Reason: SEVERE CONSITIPATION Lactulose (Lactulose Liq) 30 ml PO DAILY PRN PRN Reason: SEVERE CONSITIPATION Senna/Docusate Sodium (Whit-Colace) 1 tab PO BID IAN Last Admin: 02/09/18 20:26 Dose: 1 tab Sennosides (Senokot) 17.2 mg PO Q12H PRN PRN Reason: Moderate Constipation Sodium Chloride (Ns Flush) 2 ml IV.FLUSH UNSCH PRN PRN Reason: FLUSH AFTER USING IV ACCESS Allergies Allergy/AdvReac Type Severity Reaction Status Date / Time codeine Allergy Severe Hives Verified 02/09/18 07:24 Home Medications Medication Instructions Recorded Confirmed Type albuterol sulfate [ProAir HFA] 2 puff INHALATION Q6H PRN 12/07/17 02/09/18 History fluticasone-salmeterol [Advair 250 mg INHALATION QID 12/07/17 02/09/18 History Diskus] lovastatin 40 mg PO DAILY 12/07/17 02/09/18 History Exam Vital signs: Vital Signs 02/08/18 23:31 02/09/18 01:18 02/09/18 03:13 Temperature Pulse Rate 92 H 90 87 Respiratory Rate 24 20 22 Blood Pressure 134/74 Pulse Oximetry 98 02/09/18 07:00 02/09/18 07:53 02/09/18 11:00 Temperature 97.8 F 98 F Pulse Rate 86 86 96 H Respiratory Rate 22 20 22 Blood Pressure 134/81 124/85 Pulse Oximetry 97 96 02/09/18 13:12 02/09/18 14:47 02/09/18 15:00 Temperature 97.9 F 98 F Pulse Rate 93 H 96 H 91 H Respiratory Rate 18 20 19 Blood Pressure 152/73 H 148/77 H Pulse Oximetry 99 98 100 02/09/18 18:37 02/09/18 20:00 Temperature 97.3 F L 97.7 F Pulse Rate 86 98 H Respiratory Rate 20 22 Blood Pressure 157/74 H 150/73 H Pulse Oximetry 99 97 Intake & Output 02/09/18 02/09/18 02/10/18 06:59 18:59 06:59 Output Total 1000 / 1000 Balance -1000 / -1000 Weight 98.43 kg 98.4 kg Output: Urine 1000 / 1000 Other: # Voids 1 Weight On Admission 98.43 kg Narrative: GENERAL: This is a well-nourished, well-developed patient, in no apparent distress. SKIN: No rashes, ecchymoses or lesions. Warm and dry. HEAD: Atraumatic. Normocephalic. No temporal or scalp tenderness. EYES: Pupils equal round and reactive. No injection or drainage. ENT: Nose without bleeding, purulent drainage or septal hematoma. Airway patent. NECK: Trachea midline. No lymphadenopathy. Supple, nontender, no meningeal signs. CARDIOVASCULAR: Regular rate and rhythm without murmurs, gallops, or rubs. No JVD. RESPIRATORY: Moderate air entry, bibasilar diminished breath sound. GASTROINTESTINAL: Abdomen soft, non-tender, nondistended. No guarding. MUSCULOSKELETAL: Extremities without clubbing, cyanosis. 1+ edema in lower ext. NEUROLOGICAL: Awake and alert. Cranial nerves II through XII intact. No focal neurological deficits. Normal speech. Results - Labs CBC & Chem 7: 02/09/18 13:20 02/09/18 13:20 Labs: Laboratory Results - last 24 hr 02/09/18 02/09/18 13:20 13:20 WBC 14.6 H RBC 2.66 L Hgb 8.2 L Hct 26.0 L MCV 97.7 MCH 30.7 MCHC 31.4 L RDW 18.1 H Plt Count 226 D MPV 8.7 Prelim Diff (Auto) Manual diff required WBC Differential Manual diff final Seg Neuts % (Manual) 54 Band Neuts % (Manual) 8 H Lymphocytes % (Manual) 18 Monocytes % (Manual) 7 Myelocytes % (Man) 12 H Promyelocytes % (Man) 1 H Abs Neuts (Manual) 11.0 H Differential Comment . Platelet Estimate Normal Platelet Morphology Normal Tear Drop Cells 1+ H Sodium 141 Potassium 3.8 Chloride 104 Carbon Dioxide 28.5 Anion Gap 9 BUN 16 Creatinine 0.67 Estimated GFR Greater than 89 Random Glucose 104 Calcium 8.5 Total Bilirubin 0.2 AST 19 ALT 29 Alkaline Phosphatase 70 Troponin I Less than 0.02 L Total Protein 6.7 Albumin 3.1 L - Imaging Impressions Chest X-Ray 02/09/18 12:19 CONCLUSION: Bibasilar streaky densities are noted (right worse than left) consistent with atelectasis and/or infiltrates. Chest CT 02/09/18 13:12 CONCLUSION: 1. The patient's had a right upper lobe ectomy since the previous study. There is a right-sided rib fracture and a sclerotic right fifth rib both new since the previous study I suspect related to surgery. The remainder of concern is a prominent low density possible lymph node in the right paratracheal region which will have to be followed. Moderate size pleural effusion and a moderate- sized superior pericardial recess Caprini VTE Risk Assessment Caprini VTE Risk Assessment: Moderate/High Risk (score >= 2) Caprini Risk Assessment Model: Point Value = 1 Point Value = 2 Point Value = 3 Point Value = 5 Age 41-60 Minor surgery BMI > 25 kg/m2 Swollen legs Varicose veins or History of unexplained or recurrent spontaneous Oral contraceptives or hormone replacement Sepsis (< 1 month) Serious lung disease, including pneumonia (< 1 month) Abnormal pulmonary function Acute myocardial infarction Congestive heart failure (< 1 month) History of inflammatory bowel disease Medical patient at bed rest Age 61-74 Arthroscopic surgery Major open surgery (> 45 min) Laparoscopic surgery (> 45 min) Malignancy Confined to bed (> 72 hours) Immobilizing plaster cast Central venous access Age >= 75 History of VTE Family history of VTE Factor V Leiden Prothrombin [id number] Lupus anticoagulant Anticardiolipin antibodies Elevated serum homocysteine Heparin-induced thrombocytopenia Other congenital or acquired thrombophilia Stroke (< 1 month) Elective arthroplasty Hip, pelvis, or leg fracture Acute spinal cord injury (< 1 month) Prophylaxis Regimen: Total Risk Factor Score Risk Level Prophylaxis Regimen 0-1 Low Early ambulation 2 Moderate Order ONE of the following: *Sequential Compression Device (SCD) *Heparin 5000 units SQ BID 3-4 Higher Order ONE of the following medications: *Heparin 5000 units SQ TID *Enoxaparin/Lovenox 40 mg SQ daily (WT < 150 kg, CrCl > 30 mL/min) *Enoxaparin/Lovenox 30 mg SQ daily (WT < 150 kg, CrCl > 10-29 mL/min) *Enoxaparin/Lovenox 30 mg SQ BID (WT < 150 kg, CrCl > 30 mL/min) AND/OR *Sequential Compression Device (SCD) 5 or more Highest Order ONE of the following medications: *Heparin 5000 units SQ TID (Preferred with Epidurals) *Enoxaparin/Lovenox 40 mg SQ daily (WT < 150 kg, CrCl > 30 mL/min) *Enoxaparin/Lovenox 30 mg SQ daily (WT < 150 kg, CrCl > 10-29 mL/min) *Enoxaparin/Lovenox 30 mg SQ BID (WT < 150 kg, CrCl > 30 mL/min) AND *Sequential Compression Device (SCD) Assessment and Plan - Assessment (1) Pleural effusion, right Code(s): J90 - Pleural effusion, not elsewhere classified Status: Acute (2) Squamous cell lung cancer Code(s): C34.90 - Malignant neoplasm of unspecified part of unspecified bronchus or lung Status: Acute (3) PAD (peripheral artery disease) Code(s): I73.9 - Peripheral vascular disease, unspecified Status: Acute - Plan Mr. Garcia is a 62 year old male with a recently diagnosed squamous cell lung cancer and recent right lower ext revascularization who returns on the same day he was discharged (02/08/2018) due to shortness of breath. Dyspnea occurred as he entered his motel room which was extremely hot. CT chest today shows right sided pleural effusion. Acute respiratory failure - hypoxic Right sided pleural effusion - O2 to keep O2 sat > 90%. - DuoNeb PRN - Patient would benefit from thoracentesis. - However, he is on Aspirin+Plavix. Will place an order but procedure maybe delayed. - Torsemide 10mg BID. Continue aspirin, hold Plavix. Right sided squamous cell lung cancer - Dr. Kovacs (Oncology) was following in the previous admission. - Patient also underwent rad onc simulation - Plan is to start chemo-radiation while patient stayed at his motel. - Treatment is expected to be done by end of February 2018. COPD -Continue DuoNeb, Advair. -Continue to wean off Prednisone. Will continue Prednisone 10mg BID for 3 days. -Reduce Prednisone in 3 days. BPH - continue Tamsulosin 0.4mg Qday. Insomnia - continue Restoril 15mg QHS. Full code. Ambulation. If no procedure planned, consider Lovenox.
[2018-02-10] MEDS: Senna/Docusate Sodium 8.6/50 MG Tablet PO SCH ×2 (08:27→20:33)
[2018-02-10] MEDS: predniSONE 10 MG Tablet PO SCH ×2 (08:27→20:33)
[2018-02-10] MEDS: Budesonide-Formoterol 160/4.5 MCG 6 GM Inhaler INH SCH ×2 (08:28→20:33)
[2018-02-10 10:02] LABS: Prothrombin Time 9.8 sec (9.8-11.6)
--- NOTE | 2018-02-10 12:27 | XR ---
EXAM DATE: 02/10/2018 12:14 PM EDT AGE/SEX: 62 years / Male INDICATIONS: Post right thoracentesis. CLINICAL DATA: This is the patient's subsequent encounter. Patient reports that signs and symptoms h ave been present for 1 day and indicates a pain score of 7/10. MEDICAL/SURGICAL HISTORY: Hypertension. Chronic obstructive pulmonary disease. Pancreatitis. H yperlipidemia. Mass of the upper right love of lung. MRSA. Tobacco abuse. Hand surgery. Tonsillectom y. COMPARISON: [facility] [place] 2[place] AP&LAT, 02/09/2018. . FINDINGS: Right perihilar opacities are stable. There is no pneumothorax status post right thoracentesis. No re sidual pleural effusion is noted on the right. Left lung is clear. The heart is stable. CONCLUSION: 1. No pneumothorax status post right thoracentesis. 2. Right perihilar opacities are stable. 3. No residual pleural effusion is noted on the right. Electronically signed by: Lisandro Rodriguez MD 02/10/2018 12:25 PM EDT
--- NOTE | 2018-02-10 13:19 | US ---
EXAM DATE: 02/10/2018 12:40 PM EDT AGE/SEX: 62 years / Male INDICATIONS: Right pleural effusion. CLINICAL DATA: This is the patient's initial encounter. Patient reports that signs and symptoms have been present for 2 days and indicates a pain score of 1/10. MEDICAL/SURGICAL HISTORY: Chronic obstructive pulmonary disease. Hypertension. Chronic pancrea titis. Femoral artery occlusion, right. Hyperlipidemia. MRSA. . Femoropopliteal arterial thrombos is of right lower extremity. Hand surgery. Tonsillectomy. LASIK bilateral. Right Lobectomy. COMPARISON: [facility] [place]ORAX W [place]AST, 04/06/2011. . FLUID: Total volume of 1100 cc of clear, red fluid was removed. Fluid was sent to lab for ordered studies. . . TECHNIQUE: Ultrasound guidance for thoracentesis. Thoracentesis. The risks, benefits, and alternatives to ultrasound guided thoracentesis were explained to the patien t in lay simple terms, including the risk of bleeding and infection. Written and verbal informed con sent was obtained. Appropriate area for right thoracentesis was marked under ultrasound guidance with the patient in the upright position. Overlying skin was prepped and draped in the usual sterile fashion and with local anesthetic, a dermatotomy was made with an 11 blade scalpel. A 6 [place] thoracentesis catheter was placed in the pleural space and fluid was removed. Catheter was then removed and a sterile dressing applied. There were no immediate complications. The patient tolerated the procedure well and the lef t the ultrasound suite in stable condition. Chest radiograph is to be obtained. FINDINGS: Moderate-sized right pleural effusion. CONCLUSION: 1. Uncomplicated right sided ultrasound-guided thoracentesis. Electronically signed by: Edgar Padilla MD 02/10/2018 1:17 PM EDT
[2018-02-10 13:24] LABS: Total Protein,Pleural Fluid 3.9 gm/dL
[2018-02-10 13:58] LABS: Lymphocytes,Pleural Fluid 77 %; Mesothelial,Pleural Fluid 1 %; Monocytes,Pleural Fluid 2 %; Neutrophils,Pleural Fluid 11 %
[2018-02-10 13:59] LABS: RBC,Pleural Fluid 22258 /mm3 (0-0)
--- NOTE | 2018-02-10 14:14 | P.PN ---
Subjective Interval history: At the margin of the bed With some shortness of breath setting where on nasal cannula. Denies having any chest pain. No palpitations. Has lower extremity edema right leg is more swollen than the left leg. No fever or chills. Physical Exam Vital signs: Vital Signs 02/09/18 14:47 02/09/18 15:00 02/09/18 18:37 Temperature 98 F 97.3 F L Pulse Rate 96 H 91 H 86 Respiratory Rate 20 19 20 Blood Pressure 148/77 H 157/74 H Pulse Oximetry 98 100 99 02/09/18 20:00 02/09/18 23:29 02/10/18 00:00 Temperature 97.7 F 97.8 F Pulse Rate 98 H 94 H Respiratory Rate 22 20 Blood Pressure 150/73 H 141/73 H Pulse Oximetry 97 96 97 02/10/18 02:11 02/10/18 03:46 02/10/18 03:48 Temperature Pulse Rate 88 Respiratory Rate Blood Pressure Pulse Oximetry 99 99 02/10/18 04:00 02/10/18 08:00 02/10/18 11:25 Temperature 98.2 F 97.8 F 97.1 F L Pulse Rate 83 91 H 107 H Respiratory Rate 20 18 18 Blood Pressure 134/70 131/75 135/76 Pulse Oximetry 99 100 100 02/10/18 12:20 02/10/18 12:35 Temperature 97.9 F 97.9 F Pulse Rate 105 H 105 H Respiratory Rate 18 18 Blood Pressure 122/80 121/73 Pulse Oximetry 98 98 Intake & Output 02/09/18 02/10/18 02/10/18 18:59 06:59 18:59 Intake Total 200 / 200 Output Total 1000 / 1000 900 / 900 Balance -1000 / -1000 -700 / -700 Weight 100.1 kg Intake: Oral 200 / 200 Output: Urine 1000 / 1000 900 / 900 Other: # Voids 1 Weight On Admission 98.43 kg Narrative: GENERAL: This is a well-nourished, well-developed patient, in no apparent distress. CARDIOVASCULAR: Regular rate and rhythm without murmurs, gallops, or rubs. No JVD. RESPIRATORY: Moderate air entry, bibasilar diminished breath sound. GASTROINTESTINAL: Abdomen soft, non-tender, nondistended. No guarding. MUSCULOSKELETAL: Extremities without clubbing, cyanosis. 1+ edema in lower ext. NEUROLOGICAL: Awake and alert. Cranial nerves II through XII intact. No focal neurological deficits. Normal speech. Results - Labs CBC & Chem 7: 02/09/18 13:20 02/09/18 13:20 Laboratory Results - last 24 hr 02/09/18 02/09/18 02/10/18 13:20 13:20 09:16 WBC Differential Manual diff final Seg Neuts % (Manual) 54 Band Neuts % (Manual) 8 H Lymphocytes % (Manual) 18 Monocytes % (Manual) 7 Myelocytes % (Man) 12 H Promyelocytes % (Man) 1 H Abs Neuts (Manual) 11.0 H Platelet Estimate Normal Platelet Morphology Normal Tear Drop Cells 1+ H PT 9.8 INR 1.0 Sodium 141 Potassium 3.8 Chloride 104 Carbon Dioxide 28.5 Anion Gap 9 BUN 16 Creatinine 0.67 Estimated GFR Greater than 89 Random Glucose 104 Calcium 8.5 Total Bilirubin 0.2 AST 19 ALT 29 Alkaline Phosphatase 70 Troponin I Less than 0.02 L Total Protein 6.7 Albumin 3.1 L Pleural RBC Pleural Nuc Cells Pleural Neutrophils Pleural Lymphocytes Pleural Monocytes Pleural Histocytes Pleural Mesothelial Pleural Total Protein Pleural LDH 02/10/18 02/10/18 12:00 12:00 WBC Differential Seg Neuts % (Manual) Band Neuts % (Manual) Lymphocytes % (Manual) Monocytes % (Manual) Myelocytes % (Man) Promyelocytes % (Man) Abs Neuts (Manual) Platelet Estimate Platelet Morphology Tear Drop Cells PT INR Sodium Potassium Chloride Carbon Dioxide Anion Gap BUN Creatinine Estimated GFR Random Glucose Calcium Total Bilirubin AST ALT Alkaline Phosphatase Troponin I Total Protein Albumin Ple[place] RBC 29995 H Pleural Nuc Cells 1633 H Pleural Neutrophils 11 Pleural Lymphocytes 77 Pleural Monocytes 2 Pleural Histocytes 9 Pleural Mesothelial 1 Pleural Total Protein 3.9 Pleural LDH 339 - Imaging Impressions Chest CT 02/09/18 13:12 CONCLUSION: 1. The patient's had a right upper lobe ectomy since the previous study. There is a right-sided rib fracture and a sclerotic right fifth rib both new since the previous study I suspect related to surgery. The remainder of concern is a prominent low density possible lymph node in the right paratracheal region which will have to be followed. Moderate size pleural effusion and a moderate- sized superior pericardial recess Chest X-Ray 02/10/18 00:00 CONCLUSION: 1. No pneumothorax status post right thoracentesis. 2. Right perihilar opacities are stable. 3. No residual pleural effusion is noted on the right. Thoracentesis Ultrasound 02/10/18 00:00 CONCLUSION: 1. Uncomplicated right sided ultrasound-guided thoracentesis. Assessment and Plan - Assessment (1) Pleural effusion, right Code(s): J90 - Pleural effusion, not elsewhere classified Status: Acute (2) Squamous cell lung cancer Code(s): C34.90 - Malignant neoplasm of unspecified part of unspecified bronchus or lung Status: Acute (3) PAD (peripheral artery disease) Code(s): I73.9 - Peripheral vascular disease, unspecified Status: Acute - Plan Mr. Garcia is a 62 year old male with a recently diagnosed squamous cell lung cancer and recent right lower ext revascularization who returns on the same day he was discharged (02/08/2018) due to shortness of breath. Dyspnea occurred as he entered his motel room which was extremely hot. CT chest today shows right sided pleural effusion. Acute respiratory failure - hypoxic Right sided pleural effusion - O2 to keep O2 sat > 90%. - DuoNeb PRN - s/p thoracentesis. - However, he is on Aspirin+Plavix. Will place an order but procedure maybe delayed. - Torsemide 10mg BID. Continue aspirin, hold Plavix. - Consult pulm. -might need CtA to r/o PE Right sided squamous cell lung cancer - Dr. Kovacs (Oncology) was following in the previous admission. - Patient also underwent rad onc simulation - Plan is to start chemo-radiation while patient stayed at his motel. - Treatment is expected to be done by end of February 2018. COPD -Continue DuoNeb, Advair. -Continue to wean off Prednisone. Will continue Prednisone 10mg BID for 3 days. -Reduce Prednisone in 3 days. BPH - continue Tamsulosin 0.4mg Qday. Insomnia - continue Restoril 15mg QHS. Full code. Ambulation. start Lovenox as patient is done with thoracentesis
[2018-02-10] MEDS ORDERED: Acetaminophen 325 MG Tablet PO PRN (16:03)
[2018-02-10] MEDS: Temazepam 15 MG Capsule PO PRN (22:01)
--- NOTE | 2018-02-11 08:51 | P.PN ---
Subjective Interval history: At the margin of the bed No n/v/d/c. Says he is breathing better after the thoracentesis. No chest pain. No fever or chills overnight. No nausea or vomiting. Physical Exam Vital signs: Vital Signs 02/10/18 09:00 02/10/18 11:25 02/10/18 12:20 Temperature 97.1 F L 97.9 F Pulse Rate 90 107 H 105 H Respiratory Rate 18 18 Blood Pressure 135/76 122/80 Pulse Oximetry 100 98 02/10/18 12:35 02/10/18 16:00 02/10/18 19:20 Temperature 97.9 F 99.7 F H Pulse Rate 105 H 111 H Respiratory Rate 18 20 Blood Pressure 121/73 134/62 Pulse Oximetry 98 95 93 L 02/10/18 20:00 02/10/18 20:19 02/11/18 00:00 Temperature 98.0 F 99.3 F Pulse Rate 101 H 97 H Respiratory Rate 21 21 Blood Pressure 121/69 132/65 Pulse Oximetry 98 99 97 02/11/18 04:44 02/11/18 08:47 Temperature 98.8 F Pulse Rate 85 Respiratory Rate 20 Blood Pressure 100/52 L Pulse Oximetry 97 97 Intake & Output 02/10/18 02/11/18 02/11/18 18:59 06:59 18:59 Intake Total 1200 / 1200 480 / 480 Output Total 1550 / 1550 1000 / 1000 Balance -350 / -350 -520 / -520 Weight 100 kg Intake: Oral 1200 / 1200 480 / 480 Output: Urine 1550 / 1550 1000 / 1000 Other: Date of Last Bowel Movement 02/09/18 Narrative: GENERAL: This is a well-nourished, well-developed patient, in no apparent distress. CARDIOVASCULAR: Regular rate and rhythm without murmurs, gallops, or rubs. No JVD. RESPIRATORY: Moderate air entry, bibasilar diminished breath sound. GASTROINTESTINAL: Abdomen soft, non-tender, nondistended. No guarding. MUSCULOSKELETAL: Extremities without clubbing, cyanosis. 1+ edema in lower ext. NEUROLOGICAL: Awake and alert. Cranial nerves II through XII intact. No focal neurological deficits. Normal speech. Results - Labs CBC & Chem 7: 02/11/18 10:30 02/11/18 10:30 Laboratory Results - last 24 hr 02/10/18 02/10/18 02/10/18 09:16 12:00 12:00 PT 9.8 INR 1.0 Pleural RBC 46326 H Pleural Nuc Cells 1633 H Pleural Neutrophils 11 Pleural Lymphocytes 77 Pleural Monocytes 2 Pleural Histocytes 9 Pleural Mesothelial 1 Pleural Total Protein 3.9 Pleural LDH 339 Microbiology 02/10/18 12:00 Fluid - Pleural fluid Gram Stain - Final - Imaging Impressions Chest X-Ray 02/10/18 00:00 CONCLUSION: 1. No pneumothorax status post right thoracentesis. 2. Right perihilar opacities are stable. 3. No residual pleural effusion is noted on the right. Thoracentesis Ultrasound 02/10/18 00:00 CONCLUSION: 1. Uncomplicated right sided ultrasound-guided thoracentesis. Assessment and Plan - Assessment (1) Pleural effusion, right Code(s): J90 - Pleural effusion, not elsewhere classified Status: Acute (2) Squamous cell lung cancer Code(s): C34.90 - Malignant neoplasm of unspecified part of unspecified bronchus or lung Status: Acute (3) PAD (peripheral artery disease) Code(s): I73.9 - Peripheral vascular disease, unspecified Status: Acute - Plan Mr. Garcia is a 62 year old male with a recently diagnosed squamous cell lung cancer and recent right lower ext revascularization who returns on the same day he was discharged (02/08/2018) due to shortness of breath. Dyspnea occurred as he entered his motel room which was extremely hot. CT chest today shows right sided pleural effusion. Acute respiratory failure - hypoxic Right sided pleural effusion - O2 to keep O2 sat > 90%. - DuoNeb PRN - s/p thoracentesis. - However, he is on Aspirin+Plavix. Will place an order but procedure maybe delayed. - Torsemide 10mg BID. Continue aspirin, hold Plavix. Monitor kidney functions patient with diuretics. - Consult pulm. -might need CtA to r/o PE Possible pneumonia. Start Levaquin. Patient with leukocytosis on admission. Repeat CBC. Right sided squamous cell lung cancer - Dr. Kovacs (Oncology) was following in the previous admission. Consult Dr. Kovacs. - Patient also underwent rad onc simulation - Plan is to start chemo-radiation while patient stayed at his motel. - Treatment is expected to be done by end of February 2018. COPD -Continue DuoNeb, Advair. -Continue to wean off Prednisone. Will continue Prednisone 10mg BID for 3 days. -Reduce Prednisone in 3 days. BPH - continue Tamsulosin 0.4mg Qday. Insomnia - continue Restoril 15mg QHS. Full code. Ambulation. DC Lovenox this patient with coagulopathy Discussed with the patient, nurse, Dr. Landin pulmonology
[2018-02-11] MEDS: predniSONE 10 MG Tablet PO SCH ×2 (09:04→21:09)
[2018-02-11] MEDS: Budesonide-Formoterol 160/4.5 MCG 6 GM Inhaler INH SCH ×2 (09:04→21:09)
[2018-02-11] MEDS: Senna/Docusate Sodium 8.6/50 MG Tablet PO SCH ×2 (09:04→21:09)
[2018-02-11] MEDS: Enoxaparin Inj 40 MG/0.4 ML Syringe SQ SCH (09:04)
[2018-02-11 10:45] LABS: ABG Base Excess 3.3 mmol/L (-2-2); ABG PCO2 45 mmHg (38-42); ABG PO2 93 mmHg (61-120)
--- NOTE | 2018-02-11 11:19 | MB ---
cc: Eber Gonsalez MD DATE: 02/11/2018 HISTORY OF PRESENT ILLNESS: The patient is a 62-year-old male with past medical history of recent diagnosis of squamous cell carcinoma of the right lung being followed by Dr. Kovacs, his outpatient oncologist, chronic obstructive pulmonary disease, peripheral arterial disease, and BPH. He was recently discharged from 12/26/2017 to 02/08/2018 for revascularization of his right lower extremity, status post stent placement at that time. He was followed by oncology and radiation oncology as well. The patient was discharged with a plan of chemoradiation to be continued until the end of February. However, he presented back to ED on same date of discharge, 02/08/2018, for progressive worsening shortness of breath. He underwent a CT scan of the chest which showed evidence of a right upper lobectomy, moderate right-sided pleural effusion. He underwent ultrasound-guided thoracentesis on 02/10/2018 with removal of 1100 mL of pleural fluid, which was exudative in nature. He is currently on 3 liters oxygen with good saturation. The patient was placed on bronchodilators and p.o. prednisone. He has a [id number]-[id number] history of smoking. The patient denies any use of oxygen at home; however, he is on nebulizers. He was treated for pneumonia 2 months ago and denies any prior history of mechanical intubation for COPD. The patient denies any associated symptoms of chest pain, orthopnea, PND; however, he reports a cough with clear phlegm and chronic edema of his right lower extremity. The patient denies any weight loss or changes in appetite. In addition, he denies any hemoptysis or GI symptoms. PAST MEDICAL HISTORY: Significant for COPD, hyperlipidemia, hypertension, BPH. PAST SURGICAL HISTORY: Previous tonsillectomy, previous bilateral LASIK surgery, previous revascularization of his right lower extremity with stent placement. ALLERGIES: CODEINE. SOCIAL HISTORY: The patient has a 26-aexx-hibe history of smoking. Occasional drinker. MEDICATIONS: 1. Aspirin. 2. Protonix. 3. Prednisone. 4. DuoNeb. 5. Demadex. FAMILY HISTORY: Father with unknown cancer. REVIEW OF SYSTEMS: As per HPI. Rest of review of systems is unremarkable. PHYSICAL EXAMINATION: GENERAL: A 62-year-old male lying in bed, in no acute respiratory distress. VITAL SIGNS: Temperature 97.8, pulse of 89, respiratory rate 17, blood pressure 119/67, saturation 97% on 3 liters oxygen. HEENT: Atraumatic, normocephalic. Pupils are equal, round, reactive to light and accommodation. Extraocular muscles intact. Conjunctivae pink. Nonicteric sclerae. Oral mucosa within normal. NECK: Supple. No JVD, adenopathy, or thyromegaly. Trachea in the midline. CARDIOVASCULAR: Regular rate and rhythm. Normal S1, S2. No murmurs, rubs, or gallops noted. PULMONARY: Bilateral equal air entry. No rales or wheezing. ABDOMEN: Soft, nontender. No distention. Positive bowel sounds. EXTREMITIES: No cyanosis, clubbing. Chronic edema of right lower extremity. LABORATORY DATA: WBC 14.6, hemoglobin 8.2, hematocrit 26, platelet count 226. Sodium 141, potassium 3.8, chloride 104, CO2 28, BUN 16, creatinine 0.67, glucose of 104. RADIOGRAPHIC STUDIES: CT scan of the chest on 02/09/2018 showed moderate right-sided pleural effusion, minimal atelectasis in the right middle lung, and mild emphysema of the left lung apex. IMPRESSION: 1. Acute respiratory insufficiency. 2. Recent diagnosis of squamous cell lung cancer. 3. Right-sided pleural effusion, status post ultrasound-guided thoracentesis with removal of 1100 mL of exudative fluid. 4. Chronic obstructive pulmonary disease. 5. History of hypertension. 6. Hyperlipidemia. 7. Peripheral arterial disease. 8. History of benign prostatic hypertrophy. RECOMMENDATIONS: 1. Continue with oxygen and maintain sats above 92%. 2. Bronchodilators in the form of DuoNeb every 4 hours plus every 2 hours p.r.n. for shortness of breath. Will continue with Symbicort 160/4.5 two puffs b.i.d. 3. The patient is also on prednisone 10 mg b.i.d. 4. BiPAP p.r.n. for respiratory distress. 5. We will obtain arterial blood gas to rule out CO2 retention. 6. Patient is status post ultrasound-guided right thoracentesis on 02/10/2018 with removal of 1100 mL of exudative fluid. We will repeat chest x-ray in a.m. 7. Consult Dr. Kovacs from oncology service as the patient is known to him. Further chemotherapy treatment per oncology. 8. Gastrointestinal and deep venous thrombosis prophylaxis per primary team. He is on Lovenox 40 mg subcutaneous daily. 9. Further recommendations will be based on hospital course. Thank you for this consult and allowing us to participate in this patient's care. MD CHANDRA Joya/herminio , 10:29 AM , 10:42 AM
[2018-02-11 12:11] LABS: Baso % (Auto) 0.3 % (0.0-2.0); Eos # (Auto) 0.1 th/mm3 (0.0-0.4); Eos % (Auto) 0.4 % (0.0-4.0); Hematocrit 25.9 % (39.0-51.0); Hemoglobin 8.5 gm/dL (13.0-17.0); Lymph # (Auto) 1.9 th/mm3 (1.0-4.8); Lymph % (Auto) 13.6 % (9.0-44.0); Mean Corpuscular Hemoglobin 31.1 pg (27.0-34.0); Mean Corpuscular Volume 94.3 fL (80.0-100.0); Mean Platelet Volume 8.7 fL (7.0-11.0); Mono # (Auto) 1.4 th/mm3 (0.0-0.9); Mono % (Auto) 10.4 % (0.0-8.0); Neut # (Auto) 10.2 th/mm3 (1.8-7.7); Neut % (Auto) 75.3 % (16.0-70.0); Platelet Count 209 th/mm3 (150-450); Red Blood Count 2.75 mil/mm3 (4.50-5.90); White Blood Count 13.6 th/mm3 (4.0-11.0)
[2018-02-11 12:24] LABS: Anion Gap 7 meq/L (5-15); Blood Urea Nitrogen 17 mg/dL (7-18); Calcium 8.6 mg/dL (8.5-10.1); Carbon Dioxide 29.7 meq/L (21.0-32.0); Chloride 105 meq/L (98-107); Glomerular Filtration Rate Greater Than 89 mL/min (>89); Glucose,Random 122 mg/dL (74-106); Potassium 3.3 meq/L (3.5-5.1); Sodium 142 meq/L (136-145)
[2018-02-11 12:47] LABS: Lymphocytes 18 % (9-44); Metamyelocytes 3 % (0-1); Monocytes 5 % (0-8); Myelocytes 15 % (0-0)
[2018-02-11 12:48] LABS: Platelet Estimate Normal (Normal); Platelet Morphology Normal (Normal)
--- NOTE | 2018-02-11 13:33 | ECG ---
Date Performed: 02/09/2018 Time Performed: 13:30:43 PTAGE: 62 years EKG: Sinus rhythm MILD ST DEPRESSION ABNORMAL ECG PREVIOUS TRACING : 11/11/2017 14.21 Since the previous tracing, no significant change noted DOCTOR: William Sapp Interpretating Date/Time 02/11/2018 13:32:50
[2018-02-11] MEDS: Temazepam 15 MG Capsule PO PRN (23:13)
--- NOTE | 2018-02-12 05:15 | XR ---
EXAM DATE: 02/12/2018 5:00 AM EDT AGE/SEX: 62 years / Male INDICATIONS: Shortness of breath. CLINICAL DATA: This is the patient's subsequent encounter. Patient reports that signs and symptoms h ave been present for 3 days and indicates a pain score of Nonresponsive. MEDICAL/SURGICAL HISTORY: . Hypertension. Chronic obstructive pulmonary disease. Pancreatitis. Hyperlipidemia. Mass of the upper right love of lung. MRSA. Tobacco abuse. . Hand surgery. [place]c [place]. COMPARISON: [facility] [place], 02/10/2018. . FINDINGS: There is mild bibasilar consolidation and both sides are slightly worse in the interim. No large effu mario seen. No pneumothorax. Heart size stable, upper limits of normal. Tortuous thoracic aorta again seen. CONCLUSION: Modest worsening mild bibasilar consolidation. Electronically signed by: Skinny Alexandra MD 02/12/2018 5:14 AM EDT
[2018-02-12 05:51] LABS: Baso % (Auto) 0.3 % (0.0-2.0); Eos % (Auto) 0.3 % (0.0-4.0); Hematocrit 23.9 % (39.0-51.0); Hemoglobin 7.6 gm/dL (13.0-17.0); Lymph # (Auto) 1.3 th/mm3 (1.0-4.8); Lymph % (Auto) 9.7 % (9.0-44.0); Mean Corpuscular Hemoglobin 30.6 pg (27.0-34.0); Mean Corpuscular Volume 95.6 fL (80.0-100.0); Mono # (Auto) 1.1 th/mm3 (0.0-0.9); Mono % (Auto) 8.1 % (0.0-8.0); Neut # (Auto) 10.7 th/mm3 (1.8-7.7); Neut % (Auto) 81.6 % (16.0-70.0); Platelet Count 190 th/mm3 (150-450); Red Cell Distribution Width 18.2 % (11.6-17.2); White Blood Count 13.1 th/mm3 (4.0-11.0)
--- NOTE | 2018-02-12 05:59 | MB ---
cc: Fred Boudreaux MD DATE: 02/11/2018 REASON FOR CONSULTATION: Consult requested by hospitalist for evaluation of non-small cell lung cancer. HISTORY OF PRESENT ILLNESS: This is a 62-year-old male. Recently, he was diagnosed with non-small cell lung cancer, squamous cell carcinoma. He underwent resection. The pathology report showed T1c, N2 M0, stage III non-small cell lung cancer. The patient was evaluated by radiation oncologist and medical oncologist, Dr. Franklin Kovacs. Combined concurrent radiation and chemotherapy have been offered. The patient had simulation and markings were done. The patient was arranged to have outpatient chemotherapy and radiation. He was [facility] to [facility] on 02/08/2018 as he is homeless. The patient stated that when he went to the [facility], after several hours, he started having severe difficulty breathing. The paramedics were called and he was brought back to the emergency room. He had a CT scan of the chest which showed moderate right pleural effusion. The patient had diagnostic and therapeutic thoracentesis. The pleural fluid looks exudate. The pathology report is pending at this time. I have been asked to see the patient for further evaluation. The patient states that his breathing has improved after the thoracentesis. A total of 1100 mL of clear red fluid was removed. The cytology is still pending. PAST MEDICAL HISTORY: COPD, hypercholesterolemia, hypertension, BPH. PAST SURGICAL HISTORY: Tonsillectomy, bilateral LASIK surgery and right lower extremity revascularization surgery with stent placement. ALLERGIES: CODEINE. MEDICATIONS: Aspirin, Protonix, prednisone, DuoNeb, Demadex. FAMILY HISTORY: None for malignancy. SOCIAL HISTORY: The patient used to smoke cigarettes, 1 pack a day for at least 40 years. Occasionally drinks alcohol. He is homeless. PHYSICAL EXAMINATION: GENERAL: Well-developed, well-nourished white male, in no apparent distress. VITAL SIGNS: Temperature 97.8, heart rate is 93, respiratory rate is 18, blood pressure is 134/60. OBJECTIVE: VITAL SIGNS: Stable. Afebrile. HEAD, EYES, EARS, NOSE, AND THROAT: Pupils equal, round, reactive to light and accommodation, extraocular movements intact. Anicteric. No oral lesions noted. No thrush noted. NECK: Supple. No JVD. No masses noted. LUNGS: Decreased breath sounds on right side. HEART: Regular rate and rhythm. No murmur heard. ABDOMEN: Soft and nontender. No hepatosplenomegaly. No abnormal bowel sounds. No guarding or rigidity noted. EXTREMITIES: No pedal edema. No cyanosis, no clubbing. NEUROLOGIC: Awake, alert, oriented x 3. Sensory and motor seem to be intact. SKIN: No bruises or petechiae noted. BREASTS: No masses noted. LYMPH NODES: No cervical, supraclavicular, or axillary lymphadenopathy noted. BACK: There is no spinal tenderness noted. ASSESSMENT: 1. Non-small cell lung cancer, squamous cell carcinoma, status post surgery on 01/05/2018. The pathology report showed [id number] differentiated invasive squamous cell carcinoma and minimally invasive adenocarcinoma non-mucinous. The size of the tumor is 2.5 cm and 1/5 lymph nodes showed macrometastasis. He had a pT1c pN2 M0, stage III non-small cell lung cancer. 2. Right pleural effusion, status post thoracentesis and 1100 mL of serosanguineous fluid removed. Cytology is still pending. PLAN: I have reviewed his available records, and I have discussed with the patient regarding the right pleural effusion. It is unclear at this point if the effusion is malignant or may be post-surgical fluid collection. If the cytology comes back positive, then he will be treated with chemotherapy alone or immunotherapy if his tumor is PD-L1 positive. The chances that his tumor has auto driver mutations are very small given that this is a squamous cell carcinoma and he is a smoker. The patient has been simulated and markings are done and according to him, he was supposed to start radiation and chemotherapy on Tuesday. I will notify his primary oncologist, Dr. Franklin Kovacs, who will see him on Tuesday and will make further treatment recommendations.. Thank you for asking my opinion. MD ARCHIE Aguilera/beth , 12:45 AM , 12:56 AM LUCI[place]
[2018-02-12 06:07] LABS: Anion Gap 10 meq/L (5-15); Blood Urea Nitrogen 16 mg/dL (7-18); Calcium 8.1 mg/dL (8.5-10.1); Carbon Dioxide 31.4 meq/L (21.0-32.0); Chloride 101 meq/L (98-107); Glomerular Filtration Rate Greater Than 89 mL/min (>89); Glucose,Random 124 mg/dL (74-106); Potassium 3.8 meq/L (3.5-5.1); Sodium 142 meq/L (136-145)
[2018-02-12 08:37] LABS: Eosinophils 1 % (0-4); Lymphocytes 6 % (9-44); Metamyelocytes 1 % (0-1); Monocytes 3 % (0-8); Myelocytes 2 % (0-0)
[2018-02-12 08:38] LABS: Platelet Estimate Normal (Normal)
[2018-02-12 08:39] LABS: Platelet Morphology Normal (Normal)
[2018-02-12] MEDS: Senna/Docusate Sodium 8.6/50 MG Tablet PO SCH ×2 (09:14→20:59)
[2018-02-12] MEDS: Budesonide-Formoterol 160/4.5 MCG 6 GM Inhaler INH SCH ×2 (09:14→20:59)
[2018-02-12] MEDS: predniSONE 10 MG Tablet PO SCH ×2 (09:14→20:59)
[2018-02-12] MEDS: Enoxaparin Inj 40 MG/0.4 ML Syringe SQ SCH (09:14)
--- NOTE | 2018-02-12 10:18 | P.PNPL ---
Subjective Interval history: Patient is lying in bed in NAD. Afebrile. Physical Exam Vital signs: Vital Signs 02/11/18 11:02 02/11/18 11:43 02/11/18 12:00 Temperature 98.2 F Pulse Rate 97 H 96 H Respiratory Rate 16 17 Blood Pressure 117/68 Pulse Oximetry 97 Pulse Oximetry [Exertion on Room Air] 87 L Pulse Oximetry [Exertion with Oxygen] 95 Pulse Oximetry [Resting on Room Air] 95 Pulse Oximetry [Resting with Oxygen] 99 02/11/18 16:00 02/11/18 16:06 02/11/18 20:00 Temperature 97.4 F L 97.8 F Pulse Rate 77 96 H 93 H Respiratory Rate 17 16 18 Blood Pressure 138/78 134/60 Pulse Oximetry 98 98 Pulse Oximetry [Exertion on Room Air] Pulse Oximetry [Exertion with Oxygen] Pulse Oximetry [Resting on Room Air] Pulse Oximetry [Resting with Oxygen] 02/11/18 20:02 02/11/18 22:59 02/12/18 00:00 Temperature 97.4 F L Pulse Rate 98 H 92 H 91 H Respiratory Rate 18 17 18 Blood Pressure 123/61 Pulse Oximetry 97 Pulse Oximetry [Exertion on Room Air] Pulse Oximetry [Exertion with Oxygen] Pulse Oximetry [Resting on Room Air] Pulse Oximetry [Resting with Oxygen] 02/12/18 04:00 02/12/18 04:36 02/12/18 07:38 Temperature 97.8 F Pulse Rate 84 93 H 89 Respiratory Rate 18 17 16 Blood Pressure 109/59 L Pulse Oximetry 97 95 Pulse Oximetry [Exertion on Room Air] Pulse Oximetry [Exertion with Oxygen] Pulse Oximetry [Resting on Room Air] Pulse Oximetry [Resting with Oxygen] 02/12/18 08:00 Temperature 97.7 F Pulse Rate 93 H Respiratory Rate 16 Blood Pressure 104/55 L Pulse Oximetry 99 Pulse Oximetry [Exertion on Room Air] Pulse Oximetry [Exertion with Oxygen] Pulse Oximetry [Resting on Room Air] Pulse Oximetry [Resting with Oxygen] Intake & Output 02/11/18 02/12/18 02/12/18 18:59 06:59 18:59 Intake Total 240 / 240 Output Total 1100 / 1100 Balance -860 / -860 Weight 91.1 kg Intake: Oral 240 / 240 Output: Urine 1100 / 1100 Other: Date of Last Bowel Movement 02/09/18 02/11/18 02/11/18 # Bowel Movements 1 - Constitutional no acute distress - Routine HEENT Exam Head: Present: normocephalic, atraumatic Eye: Present: EOMI, PERRL, normal accommodation, conjunctivae pink ENT: Present: mucous membranes moist - Routine Neck Exam Present: supple, full ROM, trachea midline - Routine Respiratory Exam Present: CTA bilaterally - Routine Cardiovascular Exam Present: RRR, S1, S2 - Routine Abdominal Exam Present: soft, normoactive bowel sounds - Routine Extremities Exam Present: full ROM, pulses intact - Routine Skin Exam Present: intact, dry - Routine Neurological Exam Present: alert, oriented X3, CN II-XII intact Assessment and Plan - Plan 1. Acute respiratory insufficiency. 2. Recent diagnosis of squamous cell lung cancer. 3. Right-sided pleural effusion, status post ultrasound-guided thoracentesis with removal of 1100 mL of exudative fluid. 4. COPD 5. History of hypertension. 6. Hyperlipidemia. 7. Peripheral arterial disease. 8. History BPH Plan Continue with oxygen and maintain sats above 92%. Bronchodilators( DuoNeb, Symbicort) on prednisone 10 mg b.i.d. BiPAP p.r.n. for respiratory distress. s/p US-guided right thoracentesis on 02/10/2018 with removal of 1100 mL of exudative fluid. CXR today- mild bibasilar consolidation Onc is following- Chemo/XRT per Onc GI and DVT prophylaxis- on Lovenox 40 mg subcutaneous daily.
--- NOTE | 2018-02-12 10:24 | P.PNONC ---
Subjective Interval history: Afebrile Patient reports his breathing is much improved as he just had a breathing treatment Hoping to be able to get started with chemotherapy soon Has some mild pain to right lower extremity Objective Vital Signs/Intake & Output: Vital Signs 02/11/18 11:02 02/11/18 11:43 02/11/18 12:00 Temperature 98.2 F Pulse Rate 97 H 96 H Respiratory Rate 16 17 Blood Pressure 117/68 Pulse Oximetry 97 Pulse Oximetry [Exertion on Room Air] 87 L Pulse Oximetry [Exertion with Oxygen] 95 Pulse Oximetry [Resting on Room Air] 95 Pulse Oximetry [Resting with Oxygen] 99 02/11/18 16:00 02/11/18 16:06 02/11/18 20:00 Temperature 97.4 F L 97.8 F Pulse Rate 77 96 H 93 H Respiratory Rate 17 16 18 Blood Pressure 138/78 134/60 Pulse Oximetry 98 98 Pulse Oximetry [Exertion on Room Air] Pulse Oximetry [Exertion with Oxygen] Pulse Oximetry [Resting on Room Air] Pulse Oximetry [Resting with Oxygen] 02/11/18 20:02 02/11/18 22:59 02/12/18 00:00 Temperature 97.4 F L Pulse Rate 98 H 92 H 91 H Respiratory Rate 18 17 18 Blood Pressure 123/61 Pulse Oximetry 97 Pulse Oximetry [Exertion on Room Air] Pulse Oximetry [Exertion with Oxygen] Pulse Oximetry [Resting on Room Air] Pulse Oximetry [Resting with Oxygen] 02/12/18 04:00 02/12/18 04:36 02/12/18 07:38 Temperature 97.8 F Pulse Rate 84 93 H 89 Respiratory Rate 18 17 16 Blood Pressure 109/59 L Pulse Oximetry 97 95 Pulse Oximetry [Exertion on Room Air] Pulse Oximetry [Exertion with Oxygen] Pulse Oximetry [Resting on Room Air] Pulse Oximetry [Resting with Oxygen] 02/12/18 08:00 Temperature 97.7 F Pulse Rate 93 H Respiratory Rate 16 Blood Pressure 104/55 L Pulse Oximetry 99 Pulse Oximetry [Exertion on Room Air] Pulse Oximetry [Exertion with Oxygen] Pulse Oximetry [Resting on Room Air] Pulse Oximetry [Resting with Oxygen] Intake & Output 02/11/18 02/12/18 02/12/18 18:59 06:59 18:59 Intake Total 240 / 240 Output Total 1100 / 1100 Balance -860 / -860 Weight 200 lb 13.458 oz Intake: Oral 240 / 240 Output: Urine 1100 / 1100 Other: Date of Last Bowel Movement 02/09/18 02/11/18 02/11/18 # Bowel Movements 1 Result Diagrams: 02/12/18 04:28 02/12/18 04:28 Laboratory Results: Laboratory Results - last 24 hr 02/11/18 02/11/18 02/11/18 10:30 10:30 10:39 WBC 13.6 H RBC 2.75 L Hgb 8.5 L Hct 25.9 L MCV 94.3 MCH 31.1 MCHC 33.0 RDW 18.0 H Plt Count 209 MPV 8.7 Prelim Diff (Auto) Slide review pending Neut % (Auto) 75.3 H Lymph % (Auto) 13.6 [place] % (Auto) 10.4 H Eos % (Auto) 0.4 Baso % (Auto) 0.3 Neut # (Auto) 10.2 H Lymph # (Auto) 1.9 [place] # (Auto) 1.4 H Eos # (Auto) 0.1 Baso # (Auto) 0.0 WBC Differential Manual diff final Seg Neuts % (Manual) 50 Band Neuts % (Manual) 9 H Lymphocytes % (Manual) 18 Monocytes % (Manual) 5 Eosinophils % (Manual) Metamyelocytes % (Man) 3 H Myelocytes % (Man) 15 H Abs Neuts (Manual) 10.5 H Differential Comment . Platelet Estimate Normal Platelet Morphology Normal Puncture Site Right radial Patient Temperature 98.6 O2 Saturation 94 ABG pH 7.41 ABG pCO2 45 H ABG pO2 93 ABG HCO3 28 H ABG O2 Content 11.2 L ABG Base Excess 3.3 H ABG Methemoglobin 1.3 [place] Test Present Hemoglobin 8.3 L Carboxyhemoglobin 1.9 O2 Delivery Device Nasal cannula Liter Flow 3.00 Critical Value No Sodium 142 Potassium 3.3 L Chloride 105 Carbon Dioxide 29.7 Anion Gap 7 BUN 17 Creatinine 0.69 Estimated GFR Greater than 89 Random Glucose 122 H Calcium 8.6 02/12/18 02/12/18 04:28 04:28 WBC 13.1 H RBC 2.50 L Hgb 7.6 L Hct 23.9 L MCV 95.6 MCH 30.6 MCHC 32.0 RDW 18.2 H Plt Count 190 MPV 9.0 Prelim Diff (Auto) Slide review pending Neut % (Auto) 81.6 H Lymph % (Auto) 9.7 [place] % (Auto) 8.1 H Eos % (Auto) 0.3 Baso % (Auto) 0.3 Neut # (Auto) 10.7 H Lymph # (Auto) 1.3 [place] # (Auto) 1.1 H Eos # (Auto) 0.0 Baso # (Auto) 0.0 WBC Differential Manual diff final Seg Neuts % (Manual) 75 H Band Neuts % (Manual) 12 H Lymphocytes % (Manual) 6 L Monocytes % (Manual) 3 Eosinophils % (Manual) 1 Metamyelocytes % (Man) 1 Myelocytes % (Man) 2 H Abs Neuts (Manual) 11.8 H Differential Comment . Platelet Estimate Normal Platelet Morphology Normal Puncture Site Patient Temperature O2 Saturation ABG pH ABG pCO2 ABG pO2 ABG HCO3 ABG O2 Content ABG Base Excess ABG Methemoglobin [place] Test Hemoglobin Carboxyhemoglobin O2 Delivery Device Liter Flow Critical Value Sodium 142 Potassium 3.8 Chloride 101 Carbon Dioxide 31.4 Anion Gap 10 BUN 16 Creatinine 0.78 Estimated GFR Greater than 89 Random Glucose 124 H Calcium 8.1 L Culture Results: Microbiology 02/10/18 12:00 Gram Stain - Final Fluid - Pleural fluid Body Fluid Culture - Preliminary No growth in 48 hours Imaging Studies: Impressions Chest X-Ray 02/12/18 00:00 CONCLUSION: Modest worsening mild bibasilar consolidation. Medications: Active Medications Generic Name Dose Route Start Last Admin Trade Name Freq PRN Reason Stop Dose Admin Hydrocodone Bitart/Acetaminophen 1 tab 02/10/18 21:48 02/12/18 09:13 [place] 5/325 PO 1 tab Q4H PRN Administration pain > 4 Albuterol 1 ampul 02/11/18 12:00 02/12/18 07:38 Duoneb Neb (Ashli) NEB 1 ampul Q4HR NEB ASHLI Administration Aspirin 81 mg 02/10/18 09:00 02/12/18 09:14 Ecotrin PO 81 mg DAILY ASHLI Administration Budesonide/Formoterol Fumarate 2 puff 02/10/18 09:00 02/12/18 09:14 Symbicort 160/4.5 Mcg Inh INH 2 puff BID ASHLI Administration Enoxaparin Sodium 40 mg 02/11/18 09:00 02/12/18 09:14 Lovenox Inj SQ 40 mg DAILY ASHLI Administration Pantoprazole Sodium 40 mg 02/10/18 21:00 02/11/18 21:09 Protonix PO 40 mg HS ASHLI Administration Pravastatin Sodium 40 mg 02/10/18 09:00 02/12/18 09:14 Pravachol PO 40 mg DAILY ASHLI Administration Prednisone 10 mg 02/10/18 09:00 02/12/18 09:14 Deltasone PO 02/13/18 08:59 10 mg BID ASHLI Administration Senna/Docusate Sodium 1 tab 02/09/18 21:00 02/12/18 09:14 Whit-Colace PO 1 tab BID ASHLI Administration Tamsulosin HCl 0.4 mg 02/10/18 09:00 02/12/18 09:14 Flomax PO 0.4 mg DAILY ASHLI Administration Temazepam 15 mg 02/10/18 21:49 02/11/18 23:13 Restoril PO 15 mg HS PRN Administration INSOMNIA Torsemide 10 mg 02/10/18 09:00 02/12/18 09:13 Demadex PO 10 mg BID@0900,1800 ASHLI Administration Objective Remarks: GENERAL: Very pleasant older male sitting up in bed in no acute distress. SKIN: Warm and dry. HEAD: Normocephalic. EYES: No scleral icterus. No injection or drainage. NECK: Supple, trachea midline. No JVD or lymphadenopathy. CARDIOVASCULAR: Regular rate and rhythm without murmurs. RESPIRATORY: Scattered rhonchi. On 2 L nasal cannula. GASTROINTESTINAL: Abdomen protuberant. Nontender. EXTREMITIES: He has some mild erythema to right lower extremity involving the calf and ankle MUSCULOSKELETAL: Adequate muscle tone. NEUROLOGICAL: No obvious focal deficit. Awake, alert, and oriented x3. Assessment/Plan - Plan 62-year-old male with new diagnosis squamous cell non-small cell carcinoma. He was discharged from the hospital on 02/08 to a motel as he is homeless. The patient called paramedics due to severe difficulty breathing. CT scan of the chest on arrival showed moderate right side pleural effusion and he is status post diagnostic and therapeutic thoracentesis. 1100 mL of fluid was removed at the time. Oncology consulted for recommendations. 1. CXR today shows worsening bibasilar infiltrates. He remains afebrile. Monitor for fever or cough. 2. Dr. Kovacs to return tomorrow and give recommendations on possible inpatient chemotherapy 3. Pleural fluid shows no growth from micro standpoint Await pathology from pleural fluid; continue supportive care - Attending Statement The exam, history, and the medical decision-making described in the above note were completed with the assistance of the mid-level provider. I reviewed and agree with the findings presented. I attest that I had a [id number] encounter with the patient on the same day, and personally performed and documented my assessment and findings in the medical record. Patient states that his breathing has improved Repeat chest x-ray today does not show recurrent pleural effusion. Has little bit more consolidation on the right side Cytology of pleural fluid is still pending. If cytology comes back positive for malignancy then his treatment will change to either chemotherapy or immunotherapy. If the cytology comes back negative then patient will be treated with combined concurrent radiation and chemotherapy. His primary oncologist Dr. Kovacs will resume care in the morning
--- NOTE | 2018-02-12 11:47 | P.PN ---
Subjective Interval history: At the margin of the bed No fever or chills overnight. Still with edema especially on his right leg. Edema improved after he had thoracentesis and after diuretics. He says he has a very good urine output. He is coughing with white productive sputum. No n/v/d/c. Physical Exam Vital signs: Vital Signs 02/11/18 12:00 02/11/18 16:00 02/11/18 16:06 Temperature 98.2 F 97.4 F L Pulse Rate 96 H 77 96 H Respiratory Rate 17 17 16 Blood Pressure 117/68 138/78 Pulse Oximetry 97 98 02/11/18 20:00 02/11/18 20:02 02/11/18 22:59 Temperature 97.8 F Pulse Rate 93 H 98 H 92 H Respiratory Rate 18 18 17 Blood Pressure 134/60 Pulse Oximetry 98 02/12/18 00:00 02/12/18 04:00 02/12/18 04:36 Temperature 97.4 F L 97.8 F Pulse Rate 91 H 84 93 H Respiratory Rate 18 18 17 Blood Pressure 123/61 109/59 L Pulse Oximetry 97 97 02/12/18 07:38 02/12/18 08:00 Temperature 97.7 F Pulse Rate 89 93 H Respiratory Rate 16 16 Blood Pressure 104/55 L Pulse Oximetry 95 99 Intake & Output 02/11/18 02/12/18 02/12/18 18:59 06:59 18:59 Intake Total 240 / 240 Output Total 1100 / 1100 Balance -860 / -860 Weight 91.1 kg Intake: Oral 240 / 240 Output: Urine 1100 / 1100 Other: Date of Last Bowel Movement 02/09/18 02/11/18 02/11/18 # Bowel Movements 1 Narrative: GENERAL: This is a well-nourished, well-developed patient, in no apparent distress. CARDIOVASCULAR: Regular rate and rhythm without murmurs, gallops, or rubs. No JVD. RESPIRATORY: Moderate air entry, bibasilar diminished breath sound. GASTROINTESTINAL: Abdomen soft, non-tender, nondistended. No guarding. MUSCULOSKELETAL: Extremities without clubbing, cyanosis. 1+ edema in lower ext. NEUROLOGICAL: Awake and alert. Cranial nerves II through XII intact. No focal neurological deficits. Normal speech. Results - Labs CBC & Chem 7: 02/12/18 04:28 02/12/18 04:28 Laboratory Results - last 24 hr 02/11/18 02/11/18 02/12/18 10:30 10:30 04:28 WBC 13.6 H 13.1 H RBC 2.75 L 2.50 L Hgb 8.5 L 7.6 L Hct 25.9 L 23.9 L MCV 94.3 95.6 MCH 31.1 30.6 MCHC 33.0 32.0 RDW 18.0 H 18.2 H Plt Count 209 190 MPV 8.7 9.0 Prelim Diff (Auto) Slide review pending Slide review pending Neut % (Auto) 75.3 H 81.6 H Lymph % (Auto) 13.6 9.7 [place] % (Auto) 10.4 H 8.1 H Eos % (Auto) 0.4 0.3 Baso % (Auto) 0.3 0.3 Neut # (Auto) 10.2 H 10.7 H Lymph # (Auto) 1.9 1.3 [place] # (Auto) 1.4 H 1.1 H Eos # (Auto) 0.1 0.0 Baso # (Auto) 0.0 0.0 WBC Differential Manual diff final Manual diff final Seg Neuts % (Manual) 50 75 H Band Neuts % (Manual) 9 H 12 H Lymphocytes % (Manual) 18 6 L Monocytes % (Manual) 5 3 Eosinophils % (Manual) 1 Metamyelocytes % (Man) 3 H 1 Myelocytes % (Man) 15 H 2 H Abs Neuts (Manual) 10.5 H 11.8 H Differential Comment . . Platelet Estimate Normal Normal Platelet Morphology Normal Normal Sodium 142 Potassium 3.3 L Chloride 105 Carbon Dioxide 29.7 Anion Gap 7 BUN 17 Creatinine 0.69 Estimated GFR Greater than 89 Random Glucose 122 H Calcium 8.6 02/12/18 04:28 WBC RBC Hgb Hct MCV MCH MCHC RDW Plt Count MPV Prelim Diff (Auto) Neut % (Auto) Lymph % (Auto) [place] % (Auto) Eos % (Auto) Baso % (Auto) Neut # (Auto) Lymph # (Auto) [place] # (Auto) Eos # (Auto) Baso # (Auto) WBC Differential Seg Neuts % (Manual) Band Neuts % (Manual) Lymphocytes % (Manual) Monocytes % (Manual) Eosinophils % (Manual) Metamyelocytes % (Man) Myelocytes % (Man) Abs Neuts (Manual) Differential Comment Platelet Estimate Platelet Morphology Sodium 142 Potassium 3.8 Chloride 101 Carbon Dioxide 31.4 Anion Gap 10 BUN 16 Creatinine 0.78 Estimated GFR Greater than 89 Random Glucose 124 H Calcium 8.1 L Microbiology 02/10/18 12:00 Fluid - Pleural fluid Gram Stain - Final 02/10/18 12:00 Fluid - Pleural fluid Body Fluid Culture - Preliminary No growth in 48 hours - Imaging Impressions Chest X-Ray 02/12/18 00:00 CONCLUSION: Modest worsening mild bibasilar consolidation. Assessment and Plan - Assessment (1) Pleural effusion, right Code(s): J90 - Pleural effusion, not elsewhere classified Status: Acute (2) Squamous cell lung cancer Code(s): C34.90 - Malignant neoplasm of unspecified part of unspecified bronchus or lung Status: Acute (3) PAD (peripheral artery disease) Code(s): I73.9 - Peripheral vascular disease, unspecified Status: Acute - Plan Mr. Garcia is a 62 year old male with a recently diagnosed squamous cell lung cancer and recent right lower ext revascularization who returns on the same day he was discharged (02/08/2018) due to shortness of breath. Dyspnea occurred as he entered his motel room which was extremely hot. CT chest today shows right sided pleural effusion. Acute respiratory failure - hypoxic on admission Right sided pleural effusion Possible pneumonia. Continue Levaquin. Patient with leukocytosis on admission. Repeat CBC. Right sided squamous cell lung cancer - O2 to keep O2 sat > 90%. - DuoNeb PRN - s/p thoracentesis. - However, he is on Aspirin+Plavix. - Torsemide 10mg BID. Continue aspirin, hold Plavix. Monitor kidney functions patient with diuretics. - Consult pulm. PE - CXR 02/12 reviewed shows worsening bibasilar infiltrates. Afebrile. - possible inpatient chemotherapy - pathology from pleural fluid is pending Right sided squamous cell lung cancer - Dr. Kovacs (Oncology) was following in the previous admission. Consult Dr. Kovacs. Transfer patient to oncology floor - Patient also underwent rad onc simulation - Plan is to start chemo-radiation while patient stayed at his motel. - Treatment is expected to be done by end of February 2018. COPD -Continue DuoNeb, Advair. -Continue to wean off Prednisone. Will continue Prednisone 10mg BID for 3 days. -Reduce Prednisone in 3 days. BPH - continue Tamsulosin 0.4mg Qday. Insomnia - continue Restoril 15mg QHS. Full code. Ambulation. DC Lovenox this patient with coagulopathy Discussed with the patient, nurse, Dr. Landin pulmonology Transfer patient to oncology floor.
[2018-02-12] MEDS: Temazepam 15 MG Capsule PO PRN (23:40)
[2018-02-13 06:43] LABS: Baso % (Auto) 0.4 % (0.0-2.0); Eos % (Auto) 0.4 % (0.0-4.0); Hematocrit 22.7 % (39.0-51.0); Hemoglobin 7.5 gm/dL (13.0-17.0); Lymph # (Auto) 1.3 th/mm3 (1.0-4.8); Lymph % (Auto) 12.3 % (9.0-44.0); Mean Corpuscular HGB Conc 33.1 % (32.0-36.0); Mean Corpuscular Volume 96.6 fL (80.0-100.0); Mean Platelet Volume 8.9 fL (7.0-11.0); Mono % (Auto) 9.9 % (0.0-8.0); Neut # (Auto) 7.9 th/mm3 (1.8-7.7); Platelet Count 185 th/mm3 (150-450); Red Blood Count 2.35 mil/mm3 (4.50-5.90); Red Cell Distribution Width 17.9 % (11.6-17.2); White Blood Count 10.3 th/mm3 (4.0-11.0)
[2018-02-13 07:06] LABS: Anion Gap 7 meq/L (5-15); Blood Urea Nitrogen 19 mg/dL (7-18); Calcium 8.6 mg/dL (8.5-10.1); Carbon Dioxide 31.1 meq/L (21.0-32.0); Chloride 102 meq/L (98-107); Glomerular Filtration Rate Greater Than 89 mL/min (>89); Glucose,Random 123 mg/dL (74-106); Potassium 3.7 meq/L (3.5-5.1); Sodium 140 meq/L (136-145)
--- NOTE | 2018-02-13 08:25 | P.PNONC ---
Subjective Interval history: Patient seen and examined, vital signs, labs, medications and imaging studies reviewed. Interval history reviewed. CT imaging dated 02/09/2018 also reviewed. Aspiration of right-sided pleural effusion was performed; pleural fluid results reviewed fluid chemistries are reviewed. Patient denies acute complaints at this time, he tells me he is breathing more comfortably at this time. He became acutely short of breath immediately after being discharged from this facility last week. He tells me he was barely able to walk to the entrance of his hotel room before he had a call EMS to be brought back to the hospital. Objective Vital Signs/Intake & Output: Vital Signs 02/12/18 11:56 02/12/18 12:00 02/12/18 15:00 Temperature 97.6 F Pulse Rate 106 H 103 H 95 H Respiratory Rate 19 18 Blood Pressure 137/69 Pulse Oximetry 96 02/12/18 15:49 02/12/18 16:16 02/12/18 20:07 Temperature 98.1 F Pulse Rate 99 H 94 H 91 H Respiratory Rate 20 18 Blood Pressure 149/80 H Pulse Oximetry 99 02/12/18 20:21 02/12/18 20:22 02/12/18 20:44 Temperature 98 F Pulse Rate 89 93 H Respiratory Rate 16 20 Blood Pressure 127/71 Pulse Oximetry 98 100 02/12/18 23:30 02/12/18 23:38 02/13/18 00:09 Temperature 98 F Pulse Rate 91 H 93 H 94 H Respiratory Rate 16 20 Blood Pressure 131/78 Pulse Oximetry 97 02/13/18 04:01 02/13/18 04:06 02/13/18 04:10 Temperature 98.2 F Pulse Rate 93 H 91 H 90 Respiratory Rate 15 18 Blood Pressure 110/63 Pulse Oximetry 98 02/13/18 07:15 Temperature Pulse Rate 84 Respiratory Rate Blood Pressure Pulse Oximetry Intake & Output 02/12/18 02/13/18 02/13/18 18:59 06:59 18:59 Intake Total 906 / 906 360 / 360 Output Total 580 / 580 1100 / 1100 Balance 326 / 326 -740 / -740 Intake: Oral 906 / 906 360 / 360 Output: Urine 580 / 580 1100 / 1100 Other: Date of Last Bowel Movement 02/11/18 02/11/18 Result Diagrams: 02/13/18 06:03 02/13/18 06:03 Laboratory Results: Laboratory Results - last 24 hr 02/12/18 02/12/18 02/13/18 04:28 18:00 06:03 WBC 10.3 RBC 2.35 L Hgb 7.5 L Hct 22.7 L MCV 96.6 MCH 32.0 MCHC 33.1 RDW 17.9 H Plt Count 185 MPV 8.9 Prelim Diff (Auto) Slide review pending Neut % (Auto) 77.0 H Lymph % (Auto) 12.3 [place] % (Auto) 9.9 H Eos % (Auto) 0.4 Baso % (Auto) 0.4 Neut # (Auto) 7.9 H Lymph # (Auto) 1.3 [place] # (Auto) 1.0 H Eos # (Auto) 0.0 Baso # (Auto) 0.0 WBC Differential Manual diff final Seg Neuts % (Manual) 75 H Band Neuts % (Manual) 12 H Lymphocytes % (Manual) 6 L Monocytes % (Manual) 3 Eosinophils % (Manual) 1 Metamyelocytes % (Man) 1 Myelocytes % (Man) 2 H Abs Neuts (Manual) 11.8 H Differential Comment . Platelet Estimate Normal Platelet Morphology Normal Sodium Potassium Chloride Carbon Dioxide Anion Gap BUN Creatinine Estimated GFR Random Glucose Calcium Nasal Screen MRSA (PCR) Not detected 02/13/18 06:03 WBC RBC Hgb Hct MCV MCH MCHC RDW Plt Count MPV Prelim Diff (Auto) Neut % (Auto) Lymph % (Auto) [place] % (Auto) Eos % (Auto) Baso % (Auto) Neut # (Auto) Lymph # (Auto) [place] # (Auto) Eos # (Auto) Baso # (Auto) WBC Differential Seg Neuts % (Manual) Band Neuts % (Manual) Lymphocytes % (Manual) Monocytes % (Manual) Eosinophils % (Manual) Metamyelocytes % (Man) Myelocytes % (Man) Abs Neuts (Manual) Differential Comment Platelet Estimate Platelet Morphology Sodium 140 Potassium 3.7 Chloride 102 Carbon Dioxide 31.1 Anion Gap 7 BUN 19 H Creatinine 0.77 Estimated GFR Greater than 89 Random Glucose 123 H Calcium 8.6 Nasal Screen MRSA (PCR) Culture Results: Microbiology 02/10/18 12:00 Gram Stain - Final Fluid - Pleural fluid Body Fluid Culture - Preliminary No growth in 48 hours Medications: Active Medications Generic Name Dose Route Start Last Admin Trade Name Freq PRN Reason Stop Dose Admin Hydrocodone Bitart/Acetaminophen 1 tab 02/10/18 21:48 02/13/18 04:11 [place] 5/325 PO 1 tab Q4H PRN Administration pain > 4 Albuterol 1 ampul 02/11/18 12:00 02/13/18 04:00 Duoneb Neb (Ashli) NEB 1 ampul Q4HR NEB ASHLI Administration Aspirin 81 mg 02/10/18 09:00 02/12/18 09:14 Ecotrin PO 81 mg DAILY ASHLI Administration Budesonide/Formoterol Fumarate 2 puff 02/10/18 09:00 02/12/18 20:59 Symbicort 160/4.5 Mcg Inh INH 2 puff BID ASHLI Administration Enoxaparin Sodium 40 mg 02/11/18 09:00 02/12/18 09:14 Lovenox Inj SQ 40 mg DAILY ASHLI Administration Pantoprazole Sodium 40 mg 02/10/18 21:00 02/12/18 20:59 Protonix PO 40 mg HS ASHLI Administration Pravastatin Sodium 40 mg 02/10/18 09:00 02/12/18 09:14 Pravachol PO 40 mg DAILY ASHLI Administration Prednisone 10 mg 02/10/18 09:00 02/12/18 20:59 Deltasone PO 02/13/18 08:59 10 mg BID ASHLI Administration Senna/Docusate Sodium 1 tab 02/09/18 21:00 02/12/18 20:59 Whit-Colace PO 1 tab BID ASHLI Administration Tamsulosin HCl 0.4 mg 02/10/18 09:00 02/12/18 09:14 Flomax PO 0.4 mg DAILY ASHLI Administration Temazepam 15 mg 02/10/18 21:49 02/12/18 23:40 Restoril PO 15 mg HS PRN Administration INSOMNIA Torsemide 10 mg 02/10/18 09:00 02/12/18 17:13 Demadex PO 10 mg BID@0900,1800 ASHLI Administration Objective Remarks: GENERAL: Middle-aged male, tall, obese, disheveled, well-nourished, well- developed patient. SKIN: Warm and dry. HEAD: Normocephalic. EYES: No scleral icterus. No injection or drainage. NECK: Supple, trachea midline. No JVD or lymphadenopathy. LYMPHATIC: No adenopathy. CARDIOVASCULAR: Regular rate and rhythm without murmurs. RESPIRATORY: Prolonged expiratory phase bilaterally, decreased right basilar breath sounds. No accessory muscle use. GASTROINTESTINAL: Abdomen soft, non-tender, nondistended. EXTREMITIES: No cyanosis, or edema. MUSCULOSKELETAL: Adequate muscle tone. NEUROLOGICAL: No obvious focal deficit. Awake, alert, and oriented x3. PSYCHIATRIC: Appropriate mood and affect; insight and judgment normal. Assessment/Plan - Plan 62-year-old man with a diagnosis of squamous cell carcinoma of the right lung, pathologic stage T1 N2 M0. Status post attempted surgical resection, he does have residual disease in the form of mediastinal lymph nodes. Plan is to treat with postoperative radiation therapy with combined chemotherapy. He is a candidate for weekly carboplatin and Taxol in combination with radiation. 1. Squamous cell carcinoma the lung: Plan to proceed with radiation in the upcoming 24 hours. Chemotherapy to start concurrently. 2. Pleural fluid aspiration was not sent off for cytology. I did review the CT scans and the pleural fluid was minimal and not unusual for somebody who is several weeks postop following thoracotomy and lobectomy. Request chemotherapy teaching.
[2018-02-13 09:09] LABS: % Iron Saturation 6.1 % (20-50)
[2018-02-13] MEDS: Senna/Docusate Sodium 8.6/50 MG Tablet PO SCH ×2 (09:26→22:14)
[2018-02-13] MEDS: Budesonide-Formoterol 160/4.5 MCG 6 GM Inhaler INH SCH ×2 (09:26→22:14)
[2018-02-13] MEDS: Enoxaparin Inj 40 MG/0.4 ML Syringe SQ SCH (09:26)
[2018-02-13 09:47] LABS: Eosinophils 1 % (0-4); Lymphocytes 12 % (9-44); Monocytes 12 % (0-8); Myelocytes 7 % (0-0); Platelet Estimate Normal (Normal); Platelet Morphology Normal (Normal); Tear Drop Cells 1+
--- NOTE | 2018-02-13 16:01 | P.PN ---
Subjective Interval history: Nursing denies any deterioration since last night. Has any chest pain, has no new complaints today. Denies any [place] acute shortness of breath. Physical Exam Vital signs: Vital Signs 02/12/18 16:16 02/12/18 20:07 02/12/18 20:21 Temperature 98.1 F Pulse Rate 94 H 91 H Respiratory Rate 18 Blood Pressure 149/80 H Pulse Oximetry 99 98 02/12/18 20:22 02/12/18 20:44 02/12/18 23:30 Temperature 98 F Pulse Rate 89 93 H 91 H Respiratory Rate 16 20 16 Blood Pressure 127/71 Pulse Oximetry 100 02/12/18 23:38 02/13/18 00:09 02/13/18 04:01 Temperature 98 F Pulse Rate 93 H 94 H 93 H Respiratory Rate 20 15 Blood Pressure 131/78 Pulse Oximetry 97 02/13/18 04:06 02/13/18 04:10 02/13/18 07:15 Temperature 98.2 F Pulse Rate 91 H 90 84 Respiratory Rate 18 Blood Pressure 110/63 Pulse Oximetry 98 02/13/18 08:59 02/13/18 09:17 02/13/18 11:40 Temperature 97.6 F Pulse Rate 98 H 99 H 98 H Respiratory Rate 18 20 Blood Pressure 131/73 Pulse Oximetry 96 99 02/13/18 12:20 Temperature 98.2 F Pulse Rate 96 H Respiratory Rate 18 Blood Pressure 126/72 Pulse Oximetry 99 Intake & Output 02/12/18 02/13/18 02/13/18 18:59 06:59 18:59 Intake Total 906 / 906 360 / 360 Output Total 580 / 580 1100 / 1100 Balance 326 / 326 -740 / -740 Weight 97.5 kg Intake: Oral 906 / 906 360 / 360 Output: Urine 580 / 580 1100 / 1100 Other: Date of Last Bowel Movement 02/11/18 02/11/18 Narrative: Coarse breath sounds bilaterally, unlabored breathing No acute distress, sitting up in bed Results - Labs CBC & Chem 7: 02/16/18 05:39 02/16/18 05:39 Laboratory Results - last 24 hr 02/12/18 02/13/18 02/13/18 18:00 06:03 06:03 WBC 10.3 RBC 2.35 L Hgb 7.5 L Hct 22.7 L MCV 96.6 MCH 32.0 MCHC 33.1 RDW 17.9 H Plt Count 185 MPV 8.9 Prelim Diff (Auto) Slide review pending Neut % (Auto) 77.0 H Lymph % (Auto) 12.3 [place] % (Auto) 9.9 H Eos % (Auto) 0.4 Baso % (Auto) 0.4 Neut # (Auto) 7.9 H Lymph # (Auto) 1.3 [place] # (Auto) 1.0 H Eos # (Auto) 0.0 Baso # (Auto) 0.0 WBC Differential Manual diff final Seg Neuts % (Manual) 65 Band Neuts % (Manual) 3 Lymphocytes % (Manual) 12 Monocytes % (Manual) 12 H Eosinophils % (Manual) 1 Myelocytes % (Man) 7 H Abs Neuts (Manual) 7.7 Differential Comment . Platelet Estimate Normal Platelet Morphology Normal Tear Drop Cells 1+ H Sodium 140 Potassium 3.7 Chloride 102 Carbon Dioxide 31.1 Anion Gap 7 BUN 19 H Creatinine 0.77 Estimated GFR Greater than 89 Random Glucose 123 H Calcium 8.6 Iron TIBC % Saturation Ferritin Nasal Screen MRSA (PCR) Not detected 02/13/18 06:03 WBC RBC Hgb Hct MCV MCH MCHC RDW Plt Count MPV Prelim Diff (Auto) Neut % (Auto) Lymph % (Auto) [place] % (Auto) Eos % (Auto) Baso % (Auto) Neut # (Auto) Lymph # (Auto) [place] # (Auto) Eos # (Auto) Baso # (Auto) WBC Differential Seg Neuts % (Manual) Band Neuts % (Manual) Lymphocytes % (Manual) Monocytes % (Manual) Eosinophils % (Manual) Myelocytes % (Man) Abs Neuts (Manual) Differential Comment Platelet Estimate Platelet Morphology Tear Drop Cells Sodium Potassium Chloride Carbon Dioxide Anion Gap BUN Creatinine Estimated GFR Random Glucose Calcium Iron 21 L TIBC 343 % Saturation 6.1 L Ferritin 53 Nasal Screen MRSA (PCR) Microbiology 02/10/18 12:00 Fluid - Pleural fluid Gram Stain - Final 02/10/18 12:00 Fluid - Pleural fluid Body Fluid Culture - Final No growth in 72 hours (aerobically and anaerobically ) Assessment and Plan - Assessment (1) Pleural effusion, right Code(s): J90 - Pleural effusion, not elsewhere classified Status: Acute (2) Squamous cell lung cancer Code(s): C34.90 - Malignant neoplasm of unspecified part of unspecified bronchus or lung Status: Acute (3) PAD (peripheral artery disease) Code(s): I73.9 - Peripheral vascular disease, unspecified Status: Acute - Plan Mr. Garcia is a 62 year old male with a recently diagnosed squamous cell lung cancer and recent right lower ext revascularization who returns on the same day he was discharged (02/08/2018) due to shortness of breath. Dyspnea occurred as he entered his motel room which was extremely hot. CT chest today shows right sided pleural effusion. Acute respiratory failure - hypoxic on admission Right sided pleural effusion Possible pneumonia. Continue Levaquin. Patient with leukocytosis on admission. Right sided squamous cell lung cancer - 2.5 L O2 today - DuoNeb PRN - s/p thoracentesis. - However, he is on Aspirin+Plavix. - Torsemide 10mg BID. Continue aspirin, hold Plavix. Monitor kidney functions patient with diuretics. - Pulmon following - CXR 02/12 reviewed shows worsening bibasilar infiltrates. Afebrile. - possible inpatient chemotherapy - pathology from pleural fluid is pending Right sided squamous cell lung cancer - Dr. Kovacs (Oncology) following. - Patient also underwent rad onc simulation - Plan is to start chemo-radiation while patient stayed at his motel. - Treatment is expected to be done by end of February 2018. COPD -Continue DuoNeb, Advair. -Continue to wean off Prednisone. Will continue Prednisone 10mg BID for 2 days. -Reduce Prednisone in 2 days. BPH - continue Tamsulosin 0.4mg Qday. Insomnia - continue Restoril 15mg QHS. Full code. Ambulation. DC Lovenox this patient with coagulopathy
--- NOTE | 2018-02-13 18:09 | P.PN ---
Subjective Interval history: Alert and is up in a chair. On O2 3 L. Has some leg edema. He will go for radiation therapy today Physical Exam Vital signs: Vital Signs 02/12/18 20:07 02/12/18 20:21 02/12/18 20:22 Temperature Pulse Rate 91 H 89 Respiratory Rate 16 Blood Pressure Pulse Oximetry 98 02/12/18 20:44 02/12/18 23:30 02/12/18 23:38 Temperature 98 F 98 F Pulse Rate 93 H 91 H 93 H Respiratory Rate 20 16 20 Blood Pressure 127/71 131/78 Pulse Oximetry 100 97 02/13/18 00:09 02/13/18 04:01 02/13/18 04:06 Temperature 98.2 F Pulse Rate 94 H 93 H 91 H Respiratory Rate 15 18 Blood Pressure 110/63 Pulse Oximetry 98 02/13/18 04:10 02/13/18 07:15 02/13/18 08:59 Temperature Pulse Rate 90 84 98 H Respiratory Rate 18 Blood Pressure Pulse Oximetry 96 02/13/18 09:17 02/13/18 11:40 02/13/18 12:20 Temperature 97.6 F 98.2 F Pulse Rate 99 H 98 H 96 H Respiratory Rate 20 18 Blood Pressure 131/73 126/72 Pulse Oximetry 99 99 02/13/18 15:35 Temperature 97.8 F Pulse Rate 91 H Respiratory Rate 20 Blood Pressure 144/84 H Pulse Oximetry 98 Intake & Output 02/12/18 02/13/18 02/13/18 18:59 06:59 18:59 Intake Total 906 / 906 360 / 360 Output Total 580 / 580 1100 / 1100 Balance 326 / 326 -740 / -740 Weight 97.5 kg Intake: Oral 906 / 906 360 / 360 Output: Urine 580 / 580 1100 / 1100 Other: Date of Last Bowel Movement 02/11/18 02/11/18 Narrative: Mid aged W/M No acute distress, sitting up in bed GENERAL: SKIN: Warm and dry. HEAD: Normocephalic. EYES: No scleral icterus. No injection or drainage. NECK: Supple, trachea midline. No JVD or lymphadenopathy. CARDIOVASCULAR: Regular rate and rhythm without murmurs, gallops, or rubs. RESPIRATORY: Breath sounds equal bilaterally.Occ wheeze heard. No accessory muscle use. GASTROINTESTINAL: Abdomen soft, non-tender, nondistended. MUSCULOSKELETAL: No cyanosis, mild edema. BACK: Nontender without obvious deformity. No CVA tenderness. Results - Labs CBC & Chem 7: 02/13/18 06:03 02/13/18 06:03 Laboratory Results - last 24 hr 02/12/18 02/13/18 02/13/18 18:00 06:03 06:03 WBC 10.3 RBC 2.35 L Hgb 7.5 L Hct 22.7 L MCV 96.6 MCH 32.0 MCHC 33.1 RDW 17.9 H Plt Count 185 MPV 8.9 Prelim Diff (Auto) Slide review pending Neut % (Auto) 77.0 H Lymph % (Auto) 12.3 [place] % (Auto) 9.9 H Eos % (Auto) 0.4 Baso % (Auto) 0.4 Neut # (Auto) 7.9 H Lymph # (Auto) 1.3 [place] # (Auto) 1.0 H Eos # (Auto) 0.0 Baso # (Auto) 0.0 WBC Differential Manual diff final Seg Neuts % (Manual) 65 Band Neuts % (Manual) 3 Lymphocytes % (Manual) 12 Monocytes % (Manual) 12 H Eosinophils % (Manual) 1 Myelocytes % (Man) 7 H Abs Neuts (Manual) 7.7 Differential Comment . Platelet Estimate Normal Platelet Morphology Normal Tear Drop Cells 1+ H Sodium 140 Potassium 3.7 Chloride 102 Carbon Dioxide 31.1 Anion Gap 7 BUN 19 H Creatinine 0.77 Estimated GFR Greater than 89 Random Glucose 123 H Calcium 8.6 Iron TIBC % Saturation Ferritin Nasal Screen MRSA (PCR) Not detected 02/13/18 06:03 WBC RBC Hgb Hct MCV MCH MCHC RDW Plt Count MPV Prelim Diff (Auto) Neut % (Auto) Lymph % (Auto) [place] % (Auto) Eos % (Auto) Baso % (Auto) Neut # (Auto) Lymph # (Auto) [place] # (Auto) Eos # (Auto) Baso # (Auto) WBC Differential Seg Neuts % (Manual) Band Neuts % (Manual) Lymphocytes % (Manual) Monocytes % (Manual) Eosinophils % (Manual) Myelocytes % (Man) Abs Neuts (Manual) Differential Comment Platelet Estimate Platelet Morphology Tear Drop Cells Sodium Potassium Chloride Carbon Dioxide Anion Gap BUN Creatinine Estimated GFR Random Glucose Calcium Iron 21 L TIBC 343 % Saturation 6.1 L Ferritin 53 Nasal Screen MRSA (PCR) Microbiology 02/10/18 12:00 Fluid - Pleural fluid Gram Stain - Final 02/10/18 12:00 Fluid - Pleural fluid Body Fluid Culture - Final No growth in 72 hours (aerobically and anaerobically ) Assessment and Plan - Plan 1. Acute respiratory insufficiency. 2. Recent diagnosis of squamous cell lung cancer. 3. Right-sided pleural effusion, status post ultrasound-guided thoracentesis with removal of 1100 mL of exudative fluid. 4. COPD 5. History of hypertension. 6. Hyperlipidemia. 7. Peripheral arterial disease. 8. History BPH Plan Continue with oxygen at 2 L. Cont Bronchodilators( DuoNeb, QID. Cont prednisone 10 mg b.i.d. Go for radiation therapy CXR shows mild bibasilar consolidation Chemo/XRT per Onc GI and DVT prophylaxis- on Lovenox 40 mg subcutaneous daily.
[2018-02-13] MEDS: Temazepam 15 MG Capsule PO PRN (23:04)
--- NOTE | 2018-02-14 08:00 | P.PNONC ---
Subjective Interval history: Patient seen and examined, vital signs, labs, medications, environmental consultant notes reviewed. Subjectively; patient reports having started radiation yesterday. Denies difficulty breathing. Plans are underway to initiate systemic chemotherapy later this morning. Objective Vital Signs/Intake & Output: Vital Signs 02/13/18 08:59 02/13/18 09:17 02/13/18 11:40 Temperature 97.6 F Pulse Rate 98 H 99 H 98 H Respiratory Rate 18 20 Blood Pressure 131/73 Pulse Oximetry 96 99 02/13/18 12:20 02/13/18 15:35 02/13/18 16:00 Temperature 98.2 F 97.8 F Pulse Rate 96 H 91 H 98 H Respiratory Rate 18 20 Blood Pressure 126/72 144/84 H Pulse Oximetry 99 98 02/13/18 19:17 02/13/18 20:02 02/13/18 20:19 Temperature 97.8 F Pulse Rate 91 H 86 96 H Respiratory Rate 18 20 Blood Pressure 145/82 H Pulse Oximetry 99 100 02/13/18 23:01 02/13/18 23:10 02/13/18 23:35 Temperature 98.1 F Pulse Rate 89 86 90 Respiratory Rate 18 17 Blood Pressure 130/79 Pulse Oximetry 97 02/14/18 03:22 02/14/18 03:23 02/14/18 03:40 Temperature 97.8 F Pulse Rate 91 H 91 H 84 Respiratory Rate 17 18 Blood Pressure 131/77 Pulse Oximetry 96 02/14/18 07:30 Temperature Pulse Rate 88 Respiratory Rate Blood Pressure Pulse Oximetry Intake & Output 02/13/18 02/14/18 02/14/18 18:59 06:59 18:59 Intake Total 1776 / 1776 480 / 480 Output Total 1150 / 1150 1350 / 1350 Balance 626 / 626 -870 / -870 Weight 97.5 kg 97.6 kg Intake: Oral 1776 / 1776 480 / 480 Other 0 / 0 Output: Urine 1150 / 1150 1350 / 1350 Other: # Voids 1 Date of Last Bowel Movement 02/11/18 # Bowel Movements 1 Result Diagrams: 02/13/18 06:03 02/13/18 06:03 Laboratory Results: Laboratory Results - last 24 hr 02/13/18 02/13/18 06:03 06:03 WBC Differential Manual diff final Seg Neuts % (Manual) 65 Band Neuts % (Manual) 3 Lymphocytes % (Manual) 12 Monocytes % (Manual) 12 H Eosinophils % (Manual) 1 Myelocytes % (Man) 7 H Abs Neuts (Manual) 7.7 Platelet Estimate Normal Platelet Morphology Normal Tear Drop Cells 1+ H Iron 21 L TIBC 343 % Saturation 6.1 L Ferritin 53 Culture Results: Microbiology 02/10/18 12:00 Gram Stain - Final Fluid - Pleural fluid Body Fluid Culture - Final No growth in 72 hours (aerobically and anaerobically) Medications: Active Medications Generic Name Dose Route Start Last Admin Trade Name Freq PRN Reason Stop Dose Admin Hydrocodone Bitart/Acetaminophen 1 tab 02/10/18 21:48 02/13/18 23:04 [place] 5/325 PO 1 tab Q4H PRN Administration pain > 4 Albuterol 1 ampul 02/11/18 12:00 02/14/18 03:22 Duoneb Neb (Ashli) NEB 1 ampul Q4HR NEB ASHLI Administration Aspirin 81 mg 02/10/18 09:00 02/13/18 09:26 Ecotrin PO 81 mg DAILY ASHLI Administration Budesonide/Formoterol Fumarate 2 puff 02/10/18 09:00 02/13/18 22:14 Symbicort 160/4.5 Mcg Inh INH 2 puff BID ASHLI Administration Enoxaparin Sodium 40 mg 02/11/18 09:00 02/13/18 09:26 Lovenox Inj SQ 40 mg DAILY ASHLI Administration Pantoprazole Sodium 40 mg 02/10/18 21:00 02/13/18 22:14 Protonix PO 40 mg HS ASHLI Administration Pravastatin Sodium 40 mg 02/10/18 09:00 02/13/18 09:26 Pravachol PO 40 mg DAILY ASHLI Administration Senna/Docusate Sodium 1 tab 02/09/18 21:00 02/13/18 22:14 Whit-Colace PO 1 tab BID ASHLI Administration Sodium Chloride 2 ml 02/09/18 13:12 02/13/18 09:33 Ns Flush IV.FLUSH 2 ml UNSCH PRN Administration FLUSH AFTER USING IV ACCESS Tamsulosin HCl 0.4 mg 02/10/18 09:00 02/13/18 09:26 Flomax PO 0.4 mg DAILY ASHLI Administration Temazepam 15 mg 02/10/18 21:49 02/13/18 23:04 Restoril PO 15 mg HS PRN Administration INSOMNIA Torsemide 10 mg 02/10/18 09:00 02/13/18 22:14 Demadex PO 10 mg BID@0900,1800 ASHLI Administration Objective Remarks: GENERAL: Middle-aged male, tall, obese, disheveled, well-nourished, well- developed patient. SKIN: Warm and dry. HEAD: Normocephalic. EYES: No scleral icterus. No injection or drainage. NECK: Supple, trachea midline. No JVD or lymphadenopathy. LYMPHATIC: No adenopathy. CARDIOVASCULAR: Regular rate and rhythm without murmurs. RESPIRATORY: Prolonged expiratory phase bilaterally, decreased right basilar breath sounds. No accessory muscle use. GASTROINTESTINAL: Abdomen soft, non-tender, nondistended. EXTREMITIES: No cyanosis, or edema. MUSCULOSKELETAL: Adequate muscle tone. NEUROLOGICAL: No obvious focal deficit. Awake, alert, and oriented x3. PSYCHIATRIC: Appropriate mood and affect; insight and judgment normal. Assessment/Plan - Plan 62-year-old man with a diagnosis of squamous cell carcinoma of the right lung, pathologic stage T1 N2 M0. Status post attempted surgical resection, he does have residual disease in the form of mediastinal lymph nodes. Plan is to treat with postoperative radiation therapy with combined chemotherapy. He is a candidate for weekly carboplatin and Taxol in combination with radiation. 1. Squamous cell carcinoma the lung: Radiation therapy initiated on 02/13/2018. Initiate cycle 1 day 1 systemic therapy with carboplatin and Taxol (carboplatin dosed at an AUC of 2 and Taxol dosed at 45 mg per metered squared) weekly. 2. Right-sided thoracentesis pleural fluid cytology requested. Chemotherapy may be administered via peripheral line. Request chemotherapy teaching.
[2018-02-14 08:10] LABS: Hemoglobin 7.7 gm/dL (13.0-17.0); Mean Corpuscular HGB Conc 32.2 % (32.0-36.0); Mean Corpuscular Hemoglobin 30.8 pg (27.0-34.0); Mean Corpuscular Volume 95.6 fL (80.0-100.0); Mean Platelet Volume 8.8 fL (7.0-11.0); Platelet Count 208 th/mm3 (150-450); Red Blood Count 2.51 mil/mm3 (4.50-5.90); Red Cell Distribution Width 18.5 % (11.6-17.2)
[2018-02-14 08:41] LABS: Anion Gap 5 meq/L (5-15); Blood Urea Nitrogen 17 mg/dL (7-18); Calcium 8.4 mg/dL (8.5-10.1); Carbon Dioxide 34.3 meq/L (21.0-32.0); Chloride 101 meq/L (98-107); Glomerular Filtration Rate Greater Than 89 mL/min (>89); Glucose,Random 92 mg/dL (74-106); Potassium 3.6 meq/L (3.5-5.1); Sodium 140 meq/L (136-145)
[2018-02-14 09:00] LABS: Eosinophils 3 % (0-4); Lymphocytes 22 % (9-44); Metamyelocytes 1 % (0-1); Monocytes 9 % (0-8); Myelocytes 9 % (0-0)
[2018-02-14 09:01] LABS: Platelet Estimate Normal (Normal); Platelet Morphology Normal (Normal)
[2018-02-14] MEDS: Senna/Docusate Sodium 8.6/50 MG Tablet PO SCH ×2 (09:38→21:16)
[2018-02-14] MEDS: Enoxaparin Inj 40 MG/0.4 ML Syringe SQ SCH (09:38)
[2018-02-14] MEDS: Budesonide-Formoterol 160/4.5 MCG 6 GM Inhaler INH SCH ×2 (09:41→21:17)
[2018-02-14] MEDS ORDERED: Sodium Chlor 0.9% Inj 250 ML IV.SIG ONE (11:00)
[2018-02-14] MEDS ORDERED: Famotidine PF Inj 20 MG/2 ML Vial IV.PUSH ONE (11:00)
[2018-02-14] MEDS ORDERED: Granisetron Inj 1 MG, Dexamethasone Inj 20 MG in Sodium Chlor 0.9% Inj 50 ML IV.SIG ONE ×2 (11:00)
[2018-02-14] MEDS ORDERED: SODIUM CHLOR 0.9% IV.SIG ONE ×3 (12:00→14:00)
[2018-02-14] MEDS ORDERED: PACLITAXEL IV.SIG ONE (12:00)
[2018-02-14] MEDS ORDERED: CARBOPLATIN IV.SIG ONE ×2 (14:00)
[2018-02-14] MEDS ORDERED: Tiotropium Bromide 18 MCG/ACT Inhaler INH ONE (18:00)
--- NOTE | 2018-02-14 18:04 | P.PN ---
Subjective Interval history: In good spirits. On o2 and went for radiation . Will have chemo. No SOB at rest Physical Exam Vital signs: Vital Signs 02/13/18 19:17 02/13/18 20:02 02/13/18 20:19 Temperature 97.8 F Pulse Rate 91 H 86 96 H Respiratory Rate 18 20 Blood Pressure 145/82 H Pulse Oximetry 99 100 02/13/18 23:01 02/13/18 23:10 02/13/18 23:35 Temperature 98.1 F Pulse Rate 89 86 90 Respiratory Rate 18 17 Blood Pressure 130/79 Pulse Oximetry 97 02/14/18 03:22 02/14/18 03:23 02/14/18 03:40 Temperature 97.8 F Pulse Rate 91 H 91 H 84 Respiratory Rate 17 18 Blood Pressure 131/77 Pulse Oximetry 96 02/14/18 07:30 02/14/18 08:00 02/14/18 08:04 Temperature Pulse Rate 88 90 Respiratory Rate 19 Blood Pressure Pulse Oximetry 98 02/14/18 08:52 02/14/18 11:08 02/14/18 12:00 Temperature 97.9 F Pulse Rate 102 H 101 H 96 H Respiratory Rate 18 24 Blood Pressure 129/76 Pulse Oximetry 98 02/14/18 13:15 02/14/18 14:57 02/14/18 14:58 Temperature 98.1 F Pulse Rate 104 H 93 H Respiratory Rate 20 18 Blood Pressure 133/78 Pulse Oximetry 98 97 02/14/18 15:53 02/14/18 16:00 Temperature 97.9 F Pulse Rate 98 H 96 H Respiratory Rate 18 Blood Pressure 143/77 H Pulse Oximetry 96 Intake & Output 02/13/18 02/14/18 02/14/18 18:59 06:59 18:59 Intake Total 1776 / 1776 480 / 480 56 / 56 Output Total 1150 / 1150 1350 / 1350 Balance 626 / 626 -870 / -870 56 / 56 Weight 97.5 kg 97.6 kg Intake: IV 56 / 56 Paraplatin Inj 300 MG In NS Inj 0 / 0 250 ML @ 560 mls/hr IV.SIG ONCE ONE Rx#:[id number] Kytril Inj 1 MG Decadron Inj 20 56 / 56 MG In NS Inj 50 ML @ 224 mls/ hr IV.SIG ONCE ONE Rx#:[id number] Oral 1776 / 1776 480 / 480 Other 0 / 0 Output: Urine 1150 / 1150 1350 / 1350 Other: # Voids 1 Date of Last Bowel Movement 02/11/18 02/13/18 # Bowel Movements 1 Narrative: Mid aged W/M. No acute distress GENERAL: Alert SKIN: Warm and dry. HEAD: Normocephalic. EYES: No scleral icterus. No injection or drainage. NECK: Supple, trachea midline. No JVD or lymphadenopathy. CARDIOVASCULAR: Regular rate and rhythm without murmurs, gallops, or rubs. RESPIRATORY: Breath sounds equal bilaterally.Occ wheeze heard. No accessory muscle use. GASTROINTESTINAL: Abdomen soft, non-tender, nondistended. MUSCULOSKELETAL: No cyanosis, Has mild edema. BACK: Nontender without obvious deformity. No CVA tenderness. Results - Labs CBC & Chem 7: 02/14/18 07:34 02/14/18 07:34 Laboratory Results - last 24 hr 02/14/18 02/14/18 07:34 07:34 WBC 8.0 RBC 2.51 L Hgb 7.7 L Hct 24.0 L MCV 95.6 MCH 30.8 MCHC 32.2 RDW 18.5 H Plt Count 208 MPV 8.8 Prelim Diff (Auto) Manual diff required WBC Differential Manual diff final Seg Neuts % (Manual) 50 Band Neuts % (Manual) 4 Lymphocytes % (Manual) 22 Monocytes % (Manual) 9 H Eosinophils % (Manual) 3 Basophils % (Manual) 2 Metamyelocytes % (Man) 1 Myelocytes % (Man) 9 H Abs Neuts (Manual) 5.1 Differential Comment . Platelet Estimate Normal Platelet Morphology Normal Sodium 140 Potassium 3.6 Chloride 101 Carbon Dioxide 34.3 H Anion Gap 5 BUN 17 Creatinine 0.76 Estimated GFR Greater than 89 Random Glucose 92 Calcium 8.4 L Assessment and Plan - Plan 1. Acute respiratory insufficiency. 2. Recent diagnosis of squamous cell lung cancer. 3. Right-sided pleural effusion, status post ultrasound-guided thoracentesis with removal of 1100 mL of exudative fluid. 4. COPD 5. History of hypertension. 6. Hyperlipidemia. 7. Peripheral arterial disease. 8. History BPH Plan Continue with oxygen at 2 L.PRN D/C ( DuoNeb Cont prednisone 10 mg b.i.d. Go for radiation therapy Add Spiriva respimat , 2 puffs daily Chemo/XRT per Onc Cont Lovenox 40 mg subcutaneous daily.
--- NOTE | 2018-02-14 18:08 | P.PN ---
Subjective Interval history: RN denies any acute events since last night. Pt denies any worsening SOB. Plan for repeat cxr since most recent one doesn't seem to have obvious focal infiltrates on my read. anticipate discharge micki Physical Exam Vital signs: Vital Signs 02/13/18 19:17 02/13/18 20:02 02/13/18 20:19 Temperature 97.8 F Pulse Rate 91 H 86 96 H Respiratory Rate 18 20 Blood Pressure 145/82 H Pulse Oximetry 99 100 02/13/18 23:01 02/13/18 23:10 02/13/18 23:35 Temperature 98.1 F Pulse Rate 89 86 90 Respiratory Rate 18 17 Blood Pressure 130/79 Pulse Oximetry 97 02/14/18 03:22 02/14/18 03:23 02/14/18 03:40 Temperature 97.8 F Pulse Rate 91 H 91 H 84 Respiratory Rate 17 18 Blood Pressure 131/77 Pulse Oximetry 96 02/14/18 07:30 02/14/18 08:00 02/14/18 08:04 Temperature Pulse Rate 88 90 Respiratory Rate 19 Blood Pressure Pulse Oximetry 98 02/14/18 08:52 02/14/18 11:08 02/14/18 12:00 Temperature 97.9 F Pulse Rate 102 H 101 H 96 H Respiratory Rate 18 24 Blood Pressure 129/76 Pulse Oximetry 98 02/14/18 13:15 02/14/18 14:57 02/14/18 14:58 Temperature 98.1 F Pulse Rate 104 H 93 H Respiratory Rate 20 18 Blood Pressure 133/78 Pulse Oximetry 98 97 02/14/18 15:53 02/14/18 16:00 Temperature 97.9 F Pulse Rate 98 H 96 H Respiratory Rate 18 Blood Pressure 143/77 H Pulse Oximetry 96 Intake & Output 02/13/18 02/14/18 02/14/18 18:59 06:59 18:59 Intake Total 1776 / 1776 480 / 480 / 56 Output Total 1150 / 1150 1350 / 1350 Balance 626 / 626 -870 / -870 56 / 56 Weight 97.5 kg 97.6 kg Intake: IV 56 / 56 Paraplatin Inj 300 MG In NS Inj 0 / 0 250 ML @ 560 mls/hr IV.SIG ONCE ONE Rx#:[id number] Kytril Inj 1 MG Decadron Inj 20 56 / 56 MG In NS Inj 50 ML @ 224 mls/ hr IV.SIG ONCE ONE Rx#:[id number] Oral 1776 / 1776 480 / 480 Other 0 / 0 Output: Urine 1150 / 1150 1350 / 1350 Other: # Voids 1 Date of Last Bowel Movement 02/11/18 02/13/18 # Bowel Movements 1 Narrative: Clear lungs bilaterally, unlabored breathing, on oxygen Heart sounds regular rate and rhythm No acute distress Results - Labs CBC & Chem 7: 02/16/18 05:39 02/16/18 05:39 Laboratory Results - last 24 hr 02/14/18 02/14/18 07:34 07:34 WBC 8.0 RBC 2.51 L Hgb 7.7 L Hct 24.0 L MCV 95.6 MCH 30.8 MCHC 32.2 RDW 18.5 H Plt Count 208 MPV 8.8 Prelim Diff (Auto) Manual diff required WBC Differential Manual diff final Seg Neuts % (Manual) 50 Band Neuts % (Manual) 4 Lymphocytes % (Manual) 22 Monocytes % (Manual) 9 H Eosinophils % (Manual) 3 Basophils % (Manual) 2 Metamyelocytes % (Man) 1 Myelocytes % (Man) 9 H Abs Neuts (Manual) 5.1 Differential Comment . Platelet Estimate Normal Platelet Morphology Normal Sodium 140 Potassium 3.6 Chloride 101 Carbon Dioxide 34.3 H Anion Gap 5 BUN 17 Creatinine 0.76 Estimated GFR Greater than 89 Random Glucose 92 Calcium 8.4 L Assessment and Plan - Assessment (1) Pleural effusion, right Code(s): J90 - Pleural effusion, not elsewhere classified Status: Acute (2) Squamous cell lung cancer Code(s): C34.90 - Malignant neoplasm of unspecified part of unspecified bronchus or lung Status: Acute (3) PAD (peripheral artery disease) Code(s): I73.9 - Peripheral vascular disease, unspecified Status: Acute - Plan Mr. Gracia is a 62 year old male with a recently diagnosed squamous cell lung cancer and recent right lower ext revascularization who returns on the same day he was discharged (02/08/2018) due to shortness of breath. Dyspnea occurred as he entered his motel room which was extremely hot. CT chest showed right sided pleural effusion. Now s/p thoracentesis with improvement. Acute respiratory failure - hypoxic on admission Possible pneumonia. Continue Levaquin. Patient with leukocytosis on admission. Right sided squamous cell lung cancer - supplemental O2. - DuoNeb PRN - s/p thoracentesis. - Aspirin+Plavix. - Torsemide 10mg BID. Continue aspirin, hold Plavix. diuretics - Pulmon following - CXR 02/12 reviewed shows worsening bibasilar infiltrates. Afebrile. - possible inpatient chemotherapy - pathology from pleural fluid is pending -cultures negative for infection. Right sided squamous cell lung cancer - Dr. Kovacs following. - Patient also underwent rad onc simulation - Plan is to start chemo-radiation while patient stayed at his motel. - Treatment is expected to be done by end of February 2018. COPD -Continue DuoNeb, Advair. -Will continue Prednisone 10mg BID for 1 days. -Reduce Prednisone in 1 day. BPH - continue Tamsulosin 0.4mg Qday. Insomnia - continue Restoril 15mg QHS. Full code. Ambulation. DC Lovenox this patient with coagulopathy
--- NOTE | 2018-02-14 23:30 | XR ---
EXAM DATE: 02/14/2018 12:00 AM EDT AGE/SEX: 62 years / Male INDICATIONS: . Short of breath. CLINICAL DATA: This is the patient's initial encounter. Patient reports that signs and symptoms have been present for 4 - 6 days and indicates a pain score of 0/10. MEDICAL/SURGICAL HISTORY: . Chronic obstructive pulmonary disease. Hypertension. Chronic pancre atitis. Femoral artery occlusion, right. Hyperlipidemia. MRSA. . 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 Hand surgery. Tonsillectomy. LASIK bilateral. Right Lobectomy. . COMPARISON: [facility] [place], CHEST 1V SINGLE AP, 02/12/2018. . FINDINGS: Persistent consolidation in the medial right lower lung and at the right lung base with loss of delin eation of both right heart border and right hemidiaphragm. Improved infiltrate at the left lung base. Heart size is stable. CONCLUSION: Persistent right mid and lower lung consolidation and improving infiltrate in the left lower lung. Electronically signed by: Minor Rosenthal MD 02/14/2018 11:29 PM EDT
[2018-02-15 07:43] LABS: Baso % (Auto) 0.1 % (0.0-2.0); Hematocrit 25.1 % (39.0-51.0); Hemoglobin 8.3 gm/dL (13.0-17.0); Lymph # (Auto) 0.5 th/mm3 (1.0-4.8); Lymph % (Auto) 5.7 % (9.0-44.0); Mean Corpuscular HGB Conc 33.2 % (32.0-36.0); Mean Corpuscular Hemoglobin 31.5 pg (27.0-34.0); Mean Corpuscular Volume 94.9 fL (80.0-100.0); Mean Platelet Volume 9.2 fL (7.0-11.0); Mono # (Auto) 0.3 th/mm3 (0.0-0.9); Mono % (Auto) 3.2 % (0.0-8.0); Neut # (Auto) 8.5 th/mm3 (1.8-7.7); Platelet Count 228 th/mm3 (150-450); Red Blood Count 2.64 mil/mm3 (4.50-5.90); Red Cell Distribution Width 18.1 % (11.6-17.2); White Blood Count 9.4 th/mm3 (4.0-11.0)
[2018-02-15 07:58] LABS: Anion Gap 8 meq/L (5-15); Blood Urea Nitrogen 16 mg/dL (7-18); Calcium 9.2 mg/dL (8.5-10.1); Carbon Dioxide 30.6 meq/L (21.0-32.0); Chloride 100 meq/L (98-107); Glomerular Filtration Rate Greater Than 89 mL/min (>89); Glucose,Random 146 mg/dL (74-106); Potassium 4.1 meq/L (3.5-5.1); Sodium 139 meq/L (136-145)
[2018-02-15 08:33] LABS: Lymphocytes 7 % (9-44); Monocytes 1 % (0-8); Myelocytes 1 % (0-0); Platelet Estimate Normal (Normal); Platelet Morphology Normal (Normal); Promyelocyte 1 % (0-0); Tallied Nucleated RBC 1 (0-0)
[2018-02-15] MEDS: Enoxaparin Inj 40 MG/0.4 ML Syringe SQ SCH (09:36)
[2018-02-15] MEDS: Senna/Docusate Sodium 8.6/50 MG Tablet PO SCH ×2 (09:36→20:23)
[2018-02-15] MEDS: Budesonide-Formoterol 160/4.5 MCG 6 GM Inhaler INH SCH ×2 (09:39→20:29)
--- NOTE | 2018-02-15 12:15 | P.PN ---
Subjective Interval history: Had Chemo yesterday. Will go for radiation today. c/O some leg edema. Physical Exam Vital signs: Vital Signs 02/14/18 13:15 02/14/18 14:57 02/14/18 14:58 Temperature 98.1 F Pulse Rate 104 H 93 H Respiratory Rate 20 18 Blood Pressure 133/78 Pulse Oximetry 98 97 02/14/18 15:53 02/14/18 16:00 02/14/18 19:19 Temperature 97.9 F 97.9 F Pulse Rate 98 H 96 H 92 H Respiratory Rate 18 16 Blood Pressure 143/77 H 137/77 Pulse Oximetry 96 97 02/14/18 20:02 02/14/18 23:22 02/15/18 00:05 Temperature 97.5 F L Pulse Rate 100 H 93 H 87 Respiratory Rate 18 Blood Pressure 130/80 Pulse Oximetry 97 02/15/18 02:59 02/15/18 03:59 02/15/18 07:41 Temperature 97.5 F L 98.8 F Pulse Rate 89 88 82 Respiratory Rate 18 16 Blood Pressure 144/79 H 115/66 Pulse Oximetry 98 93 L 02/15/18 07:49 Temperature Pulse Rate 87 Respiratory Rate Blood Pressure Pulse Oximetry Intake & Output 02/14/18 02/15/18 02/15/18 18:59 06:59 18:59 Intake Total 1765 / 1765 720 / 720 Output Total 1125 / 1125 2475 / 2475 Balance 640 / 640 -1755 / -1755 Weight 98.8 kg Intake: IV 601 / 601 0 / 0 Paraplatin Inj 300 MG In NS Inj 280 / 280 250 ML @ 560 mls/hr IV.SIG ONCE ONE Rx#:[id number] Kytril Inj 1 MG Decadron Inj 20 56 / 56 MG In NS Inj 50 ML @ 224 mls/ hr IV.SIG ONCE ONE Rx#:[id number] Taxol Inj 90 MG In NS Inj 250 265 / 265 ML @ 132.5 mls/hr IV.SIG ONCE ONE Rx#:[id number] NS Inj 250 ML @ KVO IV.SIG ONCE 0 / 0 ONE Rx#:[id number] Oral 1164 / 1164 720 / 720 Output: Urine 1125 / 1125 2475 / 2475 Other: Date of Last Bowel Movement 02/13/18 02/13/18 # Bowel Movements 1 Narrative: GENERAL: Mid aged Obese W/M alert and oriented. SKIN: Warm and dry. HEAD: Normocephalic. EYES: No scleral icterus. No injection or drainage. NECK: Supple, trachea midline. No JVD or lymphadenopathy. CARDIOVASCULAR: Regular rate and rhythm without murmurs, gallops, or rubs. RESPIRATORY: Breath sounds decreased bilaterally. Occ wheeze.No accessory muscle use. GASTROINTESTINAL: Abdomen soft, non-tender, nondistended. MUSCULOSKELETAL: No cyanosis, but has edema. BACK: Nontender without obvious deformity. No CVA tenderness. Results - Labs CBC & Chem 7: 02/15/18 04:55 02/15/18 04:55 Laboratory Results - last 24 hr 02/15/18 02/15/18 04:55 04:55 WBC 9.4 RBC 2.64 L Hgb 8.3 L Hct 25.1 L MCV 94.9 MCH 31.5 MCHC 33.2 RDW 18.1 H Plt Count 228 MPV 9.2 Prelim Diff (Auto) Slide review pending Neut % (Auto) 91.0 H Lymph % (Auto) 5.7 L [place] % (Auto) 3.2 Eos % (Auto) 0.0 Baso % (Auto) 0.1 Neut # (Auto) 8.5 H Lymph # (Auto) 0.5 L [place] # (Auto) 0.3 Eos # (Auto) 0.0 Baso # (Auto) 0.0 WBC Differential Manual diff final Seg Neuts % (Manual) 90 H Lymphocytes % (Manual) 7 L Monocytes % (Manual) 1 Myelocytes % (Man) 1 H Promyelocytes % (Man) 1 H Abs Neuts (Manual) 8.6 H Nucleated RBCs/100 WBC 1 H Differential Comment . Platelet Estimate Normal Platelet Morphology Normal Sodium 139 Potassium 4.1 Chloride 100 Carbon Dioxide 30.6 Anion Gap 8 BUN 16 Creatinine 0.73 Estimated GFR Greater than 89 Random Glucose 146 H Calcium 9.2 D Microbiology 02/15/18 01:00 Stool Stool Occult Blood (JONATHAN) - Final Hemoccult negative - Imaging Impressions Chest X-Ray 02/14/18 00:00 CONCLUSION: Persistent right mid and lower lung consolidation and improving infiltrate in the left lower lung. Assessment and Plan - Plan 1. Acute respiratory insufficiency. 2. Recent diagnosis of squamous cell lung cancer. 3. Right-sided pleural effusion, status post ultrasound-guided thoracentesis with removal of 1100 mL of exudative fluid. 4. COPD 5. History of hypertension. 6. Hyperlipidemia. 7. Peripheral arterial disease. 8. History BPH Plan Continue with oxygen at 2 L.PRN Cont prednisone 10 mg b.i.d. Cont radiation therapy Add Spiriva respimat , 2 puffs daily Cont Chemo per Onc Cont Lovenox 40 mg subcutaneous daily.
--- NOTE | 2018-02-15 17:06 | P.PN ---
Subjective Interval history: Nursing denies any deterioration since last night. Patient himself has no new symptoms. I informed that his chest x-ray looks worse today yet he feels good today. Denies any fevers or chills. Physical Exam Vital signs: Vital Signs 02/14/18 19:19 02/14/18 20:02 02/14/18 23:22 Temperature 97.9 F 97.5 F L Pulse Rate 92 H 100 H 93 H Respiratory Rate 16 18 Blood Pressure 137/77 130/80 Pulse Oximetry 97 97 02/15/18 00:05 02/15/18 02:59 02/15/18 03:59 Temperature 97.5 F L Pulse Rate 87 89 88 Respiratory Rate 18 Blood Pressure 144/79 H Pulse Oximetry 98 02/15/18 07:41 02/15/18 07:49 02/15/18 13:52 Temperature 98.8 F 98.7 F Pulse Rate 82 87 106 H Respiratory Rate 16 20 Blood Pressure 115/66 120/58 L Pulse Oximetry 93 L 97 Intake & Output 02/14/18 02/15/18 02/15/18 18:59 06:59 18:59 Intake Total 1765 / 1765 720 / 720 Output Total 1125 / 1125 2475 / 2475 Balance 640 / 640 -1755 / -1755 Weight 98.8 kg Intake: IV 601 / 601 0 / 0 Paraplatin Inj 300 MG In NS Inj 280 / 280 250 ML @ 560 mls/hr IV.SIG ONCE ONE Rx#:[id number] Kytril Inj 1 MG Decadron Inj 20 56 / 56 MG In NS Inj 50 ML @ 224 mls/ hr IV.SIG ONCE ONE Rx#:[id number] Taxol Inj 90 MG In NS Inj 250 265 / 265 ML @ 132.5 mls/hr IV.SIG ONCE ONE Rx#:[id number] NS Inj 250 ML @ KVO IV.SIG ONCE 0 / 0 ONE Rx#:[id number] Oral 1164 / 1164 720 / 720 Output: Urine 1125 / 1125 2475 / 2475 Other: Date of Last Bowel Movement 02/13/18 02/13/18 # Bowel Movements 1 Narrative: Coarse breath sounds bilaterally, unlabored breathing Heart sounds regular rate rhythm On nasal cannula No acute distress Results - Labs CBC & Chem 7: 02/16/18 05:39 02/16/18 05:39 Laboratory Results - last 24 hr 02/15/18 02/15/18 04:55 04:55 WBC 9.4 RBC 2.64 L Hgb 8.3 L Hct 25.1 L MCV 94.9 MCH 31.5 MCHC 33.2 RDW 18.1 H Plt Count 228 MPV 9.2 Prelim Diff (Auto) Slide review pending Neut % (Auto) 91.0 H Lymph % (Auto) 5.7 L [place] % (Auto) 3.2 Eos % (Auto) 0.0 Baso % (Auto) 0.1 Neut # (Auto) 8.5 H Lymph # (Auto) 0.5 L [place] # (Auto) 0.3 Eos # (Auto) 0.0 Baso # (Auto) 0.0 WBC Differential Manual diff final Seg Neuts % (Manual) 90 H Lymphocytes % (Manual) 7 L Monocytes % (Manual) 1 Myelocytes % (Man) 1 H Promyelocytes % (Man) 1 H Abs Neuts (Manual) 8.6 H Nucleated RBCs/100 WBC 1 H Differential Comment . Platelet Estimate Normal Platelet Morphology Normal Sodium 139 Potassium 4.1 Chloride 100 Carbon Dioxide 30.6 Anion Gap 8 BUN 16 Creatinine 0.73 Estimated GFR Greater than 89 Random Glucose 146 H Calcium 9.2 D Microbiology 02/15/18 01:00 Stool Stool Occult Blood (JONATHAN) - Final Hemoccult negative - Imaging Impressions Chest X-Ray 02/14/18 00:00 CONCLUSION: Persistent right mid and lower lung consolidation and improving infiltrate in the left lower lung. Assessment and Plan - Assessment (1) Pleural effusion, right Code(s): J90 - Pleural effusion, not elsewhere classified Status: Acute (2) Squamous cell lung cancer Code(s): C34.90 - Malignant neoplasm of unspecified part of unspecified bronchus or lung Status: Acute (3) PAD (peripheral artery disease) Code(s): I73.9 - Peripheral vascular disease, unspecified Status: Acute - Plan Mr. Garcia is a 62 year old male with a recently diagnosed squamous cell lung cancer and recent right lower ext revascularization who returns on the same day he was discharged (02/08/2018) due to shortness of breath. Dyspnea occurred as he entered his motel room which was extremely hot. Status post thoracentesis for right-sided pleural effusion as noted on CT Acute respiratory failure - hypoxic on admission Right sided pleural effusion Possible pneumonia. Continue Levaquin. Patient with leukocytosis on admission. Right sided squamous cell lung cancer -Supplemental oxygen - DuoNeb PRN - s/p thoracentesis. - Aspirin+Plavix. - Torsemide 10mg BID. Continue aspirin, hold Plavix. Monitor kidney functions patient with diuretics. - Pulmon following - CXR 02/12 reviewed shows worsening bibasilar infiltrates. Afebrile. - possible inpatient chemotherapy - pathology from pleural fluid is pending -cultures negative for infection. -Repeat chest x-ray 02/14 looks worse upon my independent review with right- sided infiltrates, nursing notified to relate to pulmonology for possibility of bronchoscopy if appropriate Right sided squamous cell lung cancer - Dr. Kovacs (Oncology) following - Patient also underwent rad onc simulation - Plan is to start chemo-radiation while patient stayed at his motel. - Treatment is expected to be done by end of February 2018. COPD -Continue DuoNeb, Advair. -Will lowering prednisone dosing BPH - continue Tamsulosin 0.4mg Qday. Insomnia - continue Restoril 15mg QHS. Full code. Ambulation. DC Lovenox this patient with coagulopathy
[2018-02-15] MEDS: predniSONE 5 MG Tablet PO SCH (20:23)
[2018-02-16 06:46] LABS: Baso % (Auto) 0.2 % (0.0-2.0); Eos % (Auto) 0.1 % (0.0-4.0); Hematocrit 24.2 % (39.0-51.0); Lymph % (Auto) 12.7 % (9.0-44.0); Mean Corpuscular HGB Conc 33.1 % (32.0-36.0); Mean Corpuscular Hemoglobin 31.4 pg (27.0-34.0); Mean Corpuscular Volume 94.7 fL (80.0-100.0); Mono # (Auto) 0.6 th/mm3 (0.0-0.9); Mono % (Auto) 6.8 % (0.0-8.0); Neut # (Auto) 6.6 th/mm3 (1.8-7.7); Neut % (Auto) 80.2 % (16.0-70.0); Platelet Count 220 th/mm3 (150-450); Red Blood Count 2.56 mil/mm3 (4.50-5.90); Red Cell Distribution Width 18.3 % (11.6-17.2); White Blood Count 8.3 th/mm3 (4.0-11.0)
[2018-02-16 07:07] LABS: Anion Gap 8 meq/L (5-15); Blood Urea Nitrogen 21 mg/dL (7-18); Calcium 8.5 mg/dL (8.5-10.1); Carbon Dioxide 30.1 meq/L (21.0-32.0); Chloride 103 meq/L (98-107); Glomerular Filtration Rate Greater Than 89 mL/min (>89); Glucose,Random 116 mg/dL (74-106); Potassium 3.8 meq/L (3.5-5.1); Sodium 141 meq/L (136-145)
[2018-02-16 08:00] LABS: Lymphocytes 8 % (9-44); Monocytes 3 % (0-8); Myelocytes 3 % (0-0); Platelet Estimate Normal (Normal); Platelet Morphology Normal (Normal)
[2018-02-16] MEDS: Senna/Docusate Sodium 8.6/50 MG Tablet PO SCH (10:29)
[2018-02-16] MEDS: Enoxaparin Inj 40 MG/0.4 ML Syringe SQ SCH (10:29)
[2018-02-16] MEDS: predniSONE 5 MG Tablet PO SCH (13:46)
[2018-02-16] MEDS: Budesonide-Formoterol 160/4.5 MCG 6 GM Inhaler INH SCH (13:46)
[2018-02-16 14:18] VITALS: RESP 20; O2SAT 96
--- NOTE | 2018-02-16 14:41 | P.DS ---
Date of admission: 02/09/18 16:03 Primary care physician: Emi Sotne Brief History from admission: Mr. Garcia is a 62 year old male with a recently diagnosed right lung squamous cell lung cancer, COPD, PAD who returned to the hospital on the same day of discharge (02/08/2018) due to shortness of breath. Patient had an extensive hospitalization from 12/26/2017 - 02/08/2018. He was admitted on 12/26/2017 for revascularization of right lower extremity. During this immediate past hospitalization, he was followed by Oncology, radiation oncology as well. Patient was sent home on 02/08/2018 to a motel with plans to continue concurrent chemoradiation to be continued until the end of February 2018. Unfortunately, patient went to the motel and when he opened the door to his room, it was extremely hot and he immediately experienced significant dyspnea. He also became somewhat anxious, panicked. Subsequently, he sought medical attention. He did not have any cough, chest pain, fever, chills. Prior to discharge, patient was doing well on room air. In the ED, CT chest indicates moderate right sided pleural effusion. DS: Diagnosis - Discharge Diagnosis (1) Pleural effusion, right Status: Acute (2) Squamous cell lung cancer Status: Acute (3) PAD (peripheral artery disease) Status: Acute DS: Medications - Discharge Medications Prescriptions: prednisone See Label Instructions .ROUTE .COMPLEX #10 tab DS: Summary Hospital Course: Patient was admitted, started on oxygen supplementation and duo nebs, pulmonology was following. Underwent thoracentesis with about 1100 drained of the right lung with improvement in his respiratory distress. Patient was weaned down to room air with good saturations oncology was following the patient and had a plan in place for his treatment post discharge. Patient has met maximal benefit from hospitalization is clinically stable for discharge. - Time Spent with Patient Total time spent providing and/or coordinating discharge services: Less than 30 minutes - Quality: VTE Deep Vein Thrombosis/Pulmonary Embolism Present on Admission: No Exam Vital signs: Vital Signs 02/15/18 17:39 02/15/18 18:00 02/15/18 19:46 Temperature 98.7 F Pulse Rate 105 H 99 H Respiratory Rate 20 Blood Pressure 139/80 Pulse Oximetry 98 98 02/15/18 20:00 02/15/18 21:47 02/16/18 00:00 Temperature 98.1 F 97.9 F Pulse Rate 95 H 95 H 92 H Respiratory Rate 20 18 19 Blood Pressure 121/74 138/74 Pulse Oximetry 95 98 96 02/16/18 00:18 02/16/18 04:00 02/16/18 04:13 Temperature 97.9 F Pulse Rate 93 H 93 H Respiratory Rate 18 19 Blood Pressure 119/69 Pulse Oximetry 97 02/16/18 04:49 02/16/18 07:25 02/16/18 08:00 Temperature 98.6 F Pulse Rate 92 H 91 H Respiratory Rate 16 20 Blood Pressure 119/69 Pulse Oximetry 96 Intake & Output 02/15/18 02/16/18 02/16/18 18:59 06:59 18:59 Intake Total 630 / 630 Output Total 1100 / 1100 1400 / 1400 Balance -1100 / -1100 -770 / -770 Weight 99.1 kg Intake: Oral 630 / 630 Output: Urine 1100 / 1100 1400 / 1400 Other: Date of Last Bowel Movement 02/14/18 Narrative: Clear lungs bilaterally, unlabored breathing Results Procedures completed during hospitalization: Right-sided thoracentesis Labs on day of discharge: Labs from last 24 hours 02/16/18 02/16/18 05:39 05:39 WBC 8.3 RBC 2.56 L Hgb 8.0 L Hct 24.2 L MCV 94.7 MCH 31.4 MCHC 33.1 RDW 18.3 H Plt Count 220 MPV 9.0 Prelim Diff (Auto) Slide review pending Neut % (Auto) 80.2 H Lymph % (Auto) 12.7 [place] % (Auto) 6.8 Eos % (Auto) 0.1 Baso % (Auto) 0.2 Neut # (Auto) 6.6 Lymph # (Auto) 1.0 [place] # (Auto) 0.6 Eos # (Auto) 0.0 Baso # (Auto) 0.0 WBC Differential Manual diff final Seg Neuts % (Manual) 82 H Band Neuts % (Manual) 3 Lymphocytes % (Manual) 8 L Monocytes % (Manual) 3 Basophils % (Manual) 1 Myelocytes % (Man) 3 H Abs Neuts (Manual) 7.3 Differential Comment . Platelet Estimate Normal Platelet Morphology Normal Sodium 141 Potassium 3.8 Chloride 103 Carbon Dioxide 30.1 Anion Gap 8 BUN 21 H Creatinine 0.73 Estimated GFR Greater than 89 Random Glucose 116 H Calcium 8.5 - Impressions ITS Impressions Chest CT 02/09/18 13:12 CONCLUSION: 1. The patient's had a right upper lobe ectomy since the previous study. There is a right-sided rib fracture and a sclerotic right fifth rib both new since the previous study I suspect related to surgery. The remainder of concern is a prominent low density possible lymph node in the right paratracheal region which will have to be followed. Moderate size pleural effusion and a moderate- sized superior pericardial recess Thoracentesis Ultrasound 02/10/18 00:00 CONCLUSION: 1. Uncomplicated right sided ultrasound-guided thoracentesis. Chest X-Ray 02/14/18 00:00 CONCLUSION: Persistent right mid and lower lung consolidation and improving infiltrate in the left lower lung. Discharge Plan - Discharge Disposition Patient Disposition: 01 Discharge Home - Discharge Condition Condition: Stable - Discharge Order Discharge Orders: Discharge Order (Routine); Ordered 02/16/18 Ordered By: Zhen Kate - Physicians Team Primary Care Provider: Emi Stone Attending Provider: Zhen Kate Other Providers: Skinny Aquino MD ; Franklin Kovacs MD
[2018-02-16 15:01] VITALS: BP 125/79; PULSE 103; TEMP 98.7
--- NOTE | 2018-02-16 18:43 | P.PN ---
Subjective Interval history: he is doing well . No fever. CXR was stable and improved. Radiation therapy and Chemo was given. Physical Exam Vital signs: Vital Signs 02/15/18 19:46 02/15/18 20:00 02/15/18 21:47 Temperature 98.1 F Pulse Rate 95 H 95 H Respiratory Rate 20 18 Blood Pressure 121/74 Pulse Oximetry 98 95 98 02/16/18 00:00 02/16/18 00:18 02/16/18 04:00 Temperature 97.9 F Pulse Rate 92 H 93 H Respiratory Rate 19 18 Blood Pressure 138/74 Pulse Oximetry 96 02/16/18 04:13 02/16/18 04:49 02/16/18 07:25 Temperature 97.9 F Pulse Rate 93 H 92 H Respiratory Rate 19 16 Blood Pressure 119/69 Pulse Oximetry 97 02/16/18 08:00 02/16/18 12:00 Temperature 98.6 F 98.7 F Pulse Rate 91 H 103 H Respiratory Rate 20 20 Blood Pressure 119/69 125/79 Pulse Oximetry 96 96 Intake & Output 02/15/18 02/16/18 02/16/18 18:59 06:59 18:59 Intake Total 630 / 630 Output Total 1100 / 1100 1400 / 1400 Balance -1100 / -1100 -770 / -770 Weight 99.1 kg Intake: Oral 630 / 630 Output: Urine 1100 / 1100 1400 / 1400 Other: Date of Last Bowel Movement 02/14/18 Narrative: Alert and Up in chair with unlabored breathing No acute distress GENERAL: SKIN: Warm and dry. HEAD: Normocephalic. EYES: No scleral icterus. No injection or drainage. NECK: Supple, trachea midline. No JVD or lymphadenopathy. CARDIOVASCULAR: Regular rate and rhythm without murmurs, gallops, or rubs. RESPIRATORY: Breath sounds equal bilaterally.Occ wheeze. No accessory muscle use. GASTROINTESTINAL: Abdomen soft, non-tender, nondistended. MUSCULOSKELETAL: No cyanosis, or edema. BACK: Nontender without obvious deformity. No CVA tenderness. Results - Labs CBC & Chem 7: 02/16/18 05:39 02/16/18 05:39 Laboratory Results - last 24 hr 02/16/18 02/16/18 05:39 05:39 WBC 8.3 RBC 2.56 L Hgb 8.0 L Hct 24.2 L MCV 94.7 MCH 31.4 MCHC 33.1 RDW 18.3 H Plt Count 220 MPV 9.0 Prelim Diff (Auto) Slide review pending Neut % (Auto) 80.2 H Lymph % (Auto) 12.7 [place] % (Auto) 6.8 Eos % (Auto) 0.1 Baso % (Auto) 0.2 Neut # (Auto) 6.6 Lymph # (Auto) 1.0 [place] # (Auto) 0.6 Eos # (Auto) 0.0 Baso # (Auto) 0.0 WBC Differential Manual diff final Seg Neuts % (Manual) 82 H Band Neuts % (Manual) 3 Lymphocytes % (Manual) 8 L Monocytes % (Manual) 3 Basophils % (Manual) 1 Myelocytes % (Man) 3 H Abs Neuts (Manual) 7.3 Differential Comment . Platelet Estimate Normal Platelet Morphology Normal Sodium 141 Potassium 3.8 Chloride 103 Carbon Dioxide 30.1 Anion Gap 8 BUN 21 H Creatinine 0.73 Estimated GFR Greater than 89 Random Glucose 116 H Calcium 8.5 Assessment and Plan - Plan 1. Acute respiratory insufficiency. 2. Recent diagnosis of squamous cell lung cancer. 3. Right-sided pleural effusion, status post ultrasound-guided thoracentesis with removal of 1100 mL of exudative fluid. 4. COPD 5. History of hypertension. 6. Hyperlipidemia. 7. Peripheral arterial disease. 8. History BPH Plan Continue with oxygen at 2 L.PRN Cont prednisone 10 mg b.i.d.and taper off in 2 weeks Cont radiation therapy Spiriva respimat , 2 puffs daily Cont Chemo per Onc Home today and OP F/U in 2 weeks and will Repeat CXR in 2 weeks
== END 2018-02-16 18:19 | disposition home or self-care (01) ==
LOC: NEPC 20:13 → NEDA 02-09 16:03 → N07 02-09 18:07 → HCIN 02-12 11:28
PROVIDERS: ADMIT Hospitalist; ATTEND Hospitalist
DX: R00.0 Tachycardia, unspecified; Z86.14 Personal history of Methicillin resistant Staphylococcus aureus infection; J96.01 Acute respiratory failure with hypoxia; R60.0 Localized edema; N40.0 Benign prostatic hyperplasia without lower urinary tract symptoms; F10.10 Alcohol abuse, uncomplicated; E78.5 Hyperlipidemia, unspecified; J90 Pleural effusion, not elsewhere classified; Z59.0 Homelessness; F17.210 Nicotine dependence, cigarettes, uncomplicated; S22.31XA Fracture of one rib, right side, initial encounter for closed fracture; I70.209 Unspecified atherosclerosis of native arteries of extremities, unspecified extremity; Z79.82 Long term (current) use of aspirin; J44.9 Chronic obstructive pulmonary disease, unspecified; D72.829 Elevated white blood cell count, unspecified; K86.1 Other chronic pancreatitis; G47.00 Insomnia, unspecified; M79.604 Pain in right leg; I10 Essential (primary) hypertension; E78.00 Pure hypercholesterolemia, unspecified; C34.11 Malignant neoplasm of upper lobe, right bronchus or lung

== ENCOUNTER 2018-02-18 15:54 | Observation (INO) ==
[2018-02-18] MEDS ORDERED: MethylPREDNISolone Sod Succinate Inj 125 MG/2 ML Vial IV.PUSH ONE (16:09)
--- NOTE | 2018-02-18 17:12 | XR ---
EXAM DATE: 02/18/2018 4:41 PM EDT AGE/SEX: 62 years / Male INDICATIONS: Shortness of breath. CLINICAL DATA: This is the patient's initial encounter. Patient reports that signs and symptoms have been present for 1 day and indicates a pain score of 0/10. MEDICAL/SURGICAL HISTORY: Hypertension. Chronic obstructive pulmonary disease. Carcinoma, nisa g. Smoker. None. COMPARISON: [facility] – [place], CHEST 2V PA&LAT, 02/14/2018. . FINDINGS: There is persistent patchy infiltrates in the right lower lung with loss of delineation of portions o f the right hemidiaphragm, very similar in appearance to 02/14/2018. Left lung is clear. The heart siz e is stable. CONCLUSION: Persistent, unchanged, infiltrates in the right lower lung. Electronically signed by: Minor Rosenthal MD 02/18/2018 5:11 PM EDT
[2018-02-18 17:28] LABS: Baso % (Auto) 0.3 % (0.0-2.0); Eos % (Auto) 0.2 % (0.0-4.0); Hematocrit 27.6 % (39.0-51.0); Hemoglobin 9.3 gm/dL (13.0-17.0); Lymph # (Auto) 0.7 th/mm3 (1.0-4.8); Lymph % (Auto) 13.7 % (9.0-44.0); Mean Corpuscular HGB Conc 33.6 % (32.0-36.0); Mean Corpuscular Hemoglobin 31.2 pg (27.0-34.0); Mean Corpuscular Volume 92.9 fL (80.0-100.0); Mean Platelet Volume 8.8 fL (7.0-11.0); Mono # (Auto) 0.4 th/mm3 (0.0-0.9); Mono % (Auto) 8.5 % (0.0-8.0); Neut # (Auto) 3.9 th/mm3 (1.8-7.7); Neut % (Auto) 77.3 % (16.0-70.0); Platelet Count 222 th/mm3 (150-450); Red Blood Count 2.97 mil/mm3 (4.50-5.90); Red Cell Distribution Width 17.6 % (11.6-17.2)
[2018-02-18 17:35] LABS: Prothrombin Time 10.5 sec (9.8-11.6)
[2018-02-18 17:48] LABS: Albumin 3.2 g/dL (3.4-5.0); Anion Gap 14 meq/L (5-15); Aspartate Aminotransferase 19 U/L (15-37); Blood Urea Nitrogen 21 mg/dL (7-18); Calcium 8.6 mg/dL (8.5-10.1); Carbon Dioxide 20.9 meq/L (21.0-32.0); Chloride 106 meq/L (98-107); Glomerular Filtration Rate 71 mL/min (>89); Glucose,Random 158 mg/dL (74-106); Potassium 3.3 meq/L (3.5-5.1); Sodium 141 meq/L (136-145)
[2018-02-18 17:49] LABS: Alanine Aminotransferase 27 U/L (12-78)
[2018-02-18 17:53] LABS: Alkaline Phosphatase 77 U/L (45-117); Total Protein 7.4 g/dL (6.4-8.2)
--- NOTE | 2018-02-18 18:30 | ED ---
HPI General Chief complaint: Shortness of Breath/Dyspnea Stated complaint: SOB Time Seen by Provider: 02/18/18 16:09 Source: patient Mode of arrival: ambulatory Limitations: no limitations History of Present Illness HPI narrative: Patient has COPD and and lung cancer. 62 years old. He was recently discharged from a admission here. After walking 2 blocks he was unable to continue called EMS. His O2 sat was about 90 here. He received multiple rounds of albuterol in route to the ED. He has no chest pain. No cough or fever. He reports a weight gain in the order of 40 pounds during his most recent hospital admission believes it has been making his breathing much more difficult for him. Onset (ago): hour(s) (1) Location: chest Radiation: non-radiation Severity: moderate Relieving factors: rest Exacerbating factors: movement Related Data Home Medications Medication Instructions Recorded Confirmed albuterol sulfate [ProAir HFA] 2 puff INHALATION Q6H PRN 12/07/17 02/18/18 fluticasone-salmeterol [Advair 250 mg INHALATION QID 12/07/17 02/18/18 Diskus] lovastatin 40 mg PO DAILY 12/07/17 02/18/18 hydrocodone-acetaminophen [Damar] 1 tab PO Q4H PRN 02/10/18 02/18/18 Previous Rx's Medication Instructions Recorded aspirin 81 mg PO DAILY tab 02/08/18 clopidogrel [Plavix] 75 mg PO DAILY #90 tab 02/08/18 pantoprazole 40 mg PO HS #30 tab 02/08/18 prednisone 10 mg PO DAILY #15 tab 02/08/18 tamsulosin 0.4 mg PO DAILY #90 cap 02/08/18 torsemide 10 mg PO BID@0900,1800 #60 tab 02/08/18 prednisone See Label Instructions .ROUTE 02/16/18 .COMPLEX #10 tab Allergies Allergy/AdvReac Type Severity Reaction Status Date / Time codeine Allergy Severe Hives Verified 02/09/18 07:24 Review of Systems ROS: all other systems reviewed are negative [facility] Social History Social History Substance History: Active Abuse Second Hand Smoke Exposure: No Smoking Status: Current every day smoker Tobacco Type: Cigarettes Packs Per Day: 1 Cigarettes Per Day: 20.0 years: 35 How Often Do You Have a Drink Containing Alcohol: 4 or more times a week Recent Travel in [facility] within the Last 8 Weeks: No Recent Out of Country Travel within the Last 8 Weeks: No Substance Abuse Detail Marijuana: Substance Use Status: Active Immunization History Tetanus Immunization: <5 Years Hx Influenza Vaccine This Season: No Exam Narrative Exam Narrative: GENERAL: 62-year-old male well-nourished well-developed moderate shortness of breath speaking short sentences SKIN: Focused skin assessment warm/dry. HEAD: Atraumatic. Normocephalic. EYES: Pupils equal and round. No scleral icterus. No injection or drainage. ENT: No nasal bleeding or discharge. Mucous membranes pink and moist. NECK: Trachea midline. No JVD. CARDIOVASCULAR: Tachycardia at about 110. Regular rhythm. RESPIRATORY: Tachypnea. Wheezing present bilaterally. GASTROINTESTINAL: Abdomen soft, non-tender, nondistended. Hepatic and splenic margins not palpable. MUSCULOSKELETAL: No obvious deformities. No clubbing. No cyanosis. No edema. NEUROLOGICAL: Awake and alert. No obvious cranial nerve deficits. Motor grossly within normal limits. Normal speech. PSYCHIATRIC: Appropriate mood and affect; insight and judgment normal. Course Initial Documented Vital Signs Temperature 98.4 F 02/18/18 16:04 Pulse Rate 133 H 02/18/18 16:04 Respiratory Rate 32 H 02/18/18 16:04 Blood Pressure 135/67 02/18/18 16:04 Pulse Oximetry 95 02/18/18 16:04 Last Documented Vital Signs Temperature 97.6 F 02/19/18 04:00 Pulse Rate 88 02/19/18 04:02 Respiratory Rate 18 02/19/18 04:00 Blood Pressure 124/79 02/19/18 04:00 Pulse Oximetry 98 02/19/18 04:00 Sign Out Sign Out Data: Patient Sign Out occurred on 02/18/18 at 19:45. Patient's care was discussed, and care was transferred from Emiliano Sapp MD to Alberto Mason. Sign Out Comment: Patient has COPD. He developed severe dyspnea on exertion today. CT pulmonary angiogram pending. Patient will require admission for hypoxia. Last updated by Emiliano Sapp MD at 02/18/18 19:37 Post-Handoff Eval: pt CTA no PE but re-accumulation of pleural fluid right lung that had been grain US guided 02-10-18 and now increased RR and SOB exertional needs re -admit and possible repeat tap Medical Decision Making MDM Narrative Medical decision making narrative: Patient arrives with a COPD exacerbation. There is concern for Pulmonary embolism given recent hospitalization. Case discussed with Dr. Mason at [address] pulmonary angiogram pending at the time of signout. The patient had received 3 rounds of albuterol and the pulse was about 110. Tachypnea on the order of 30 breaths a minute observed upon reassessment. CHF less likely given normal BNP. Medical Screen Exam Complete: Yes Emergency Medical Condition: Yes Differential Diagnosis Differential Diagnosis: NSTEMI, unstable angina, coronary vasospasm, PE, PTX, aortic dissection, pericarditis, myocarditis, endocarditis, PNA, esophageal disease, aneurysm, musculoskeletal etiologies, anxiety, cocaine/sympathomimetic abuse Medical Records Medical records reviewed: Yes I reviewed the patient's medical records. Lab Data Lab results reviewed: Yes I reviewed the patient's lab results. Result diagrams: 02/19/18 05:33 02/19/18 05:33 Lab Results 02/18/18 02/18/18 02/18/18 Range/Units 16:45 16:45 16:45 WBC 5.0 (4.0-11.0) th/mm3 RBC 2.97 L (4.50-5.90) mil/mm3 Hgb 9.3 L (13.0-17.0) gm/dL Hct 27.6 L (39.0-51.0) % MCV 92.9 (80.0-100.0) fL MCH 31.2 (27.0-34.0) pg MCHC 33.6 (32.0-36.0) % RDW 17.6 H (11.6-17.2) % Plt Count 222 (150-450) th/mm3 MPV 8.8 (7.0-11.0) fL Prelim Diff (Auto) Neut % (Auto) 77.3 H (16.0-70.0) % Lymph % (Auto) 13.7 (9.0-44.0) % [place] % (Auto) 8.5 H (0.0-8.0) % Eos % (Auto) 0.2 (0.0-4.0) % Baso % (Auto) 0.3 (0.0-2.0) % Neut # (Auto) 3.9 (1.8-7.7) th/mm3 Lymph # (Auto) 0.7 L (1.0-4.8) th/mm3 [place] # (Auto) 0.4 (0.0-0.9) th/mm3 Eos # (Auto) 0.0 (0.0-0.4) th/mm3 Baso # (Auto) 0.0 (0.0-0.2) th/mm3 WBC Differential . Differential Comment Auto diff final PT 10.5 (9.8-11.6) sec INR 1.0 Ratio Sodium 141 (136-145) meq/L Potassium 3.3 L (3.5-5.1) meq/L Chloride 106 (98-107) meq/L Carbon Dioxide 20.9 L (21.0-32.0) meq/L Anion Gap 14 (5-15) meq/L BUN 21 H (7-18) mg/dL Creatinine 1.06 (0.60-1.30) mg/dL Estimated GFR 71 L (>89) mL/min POC Glucose (68-110) mg/dl Random Glucose 158 H (74-106) mg/dL Calcium 8.6 (8.5-10.1) mg/dL Total Bilirubin 0.4 (0.2-1.0) mg/dL AST 19 (15-37) U/L ALT 27 (12-78) U/L Alkaline Phosphatase 77 (45-117) U/L Troponin I Less than 0.02 L (0.02-0.05) ng/mL B-Natriuretic Peptide (0-100) pg/mL Total Protein 7.4 (6.4-8.2) g/dL Albumin 3.2 L (3.4-5.0) g/dL 02/18/18 02/18/18 02/19/18 Range/Units 16:45 23:24 05:33 WBC 3.6 L (4.0-11.0) th/mm3 RBC 2.75 L (4.50-5.90) mil/mm3 Hgb 8.4 L (13.0-17.0) gm/dL Hct 26.0 L (39.0-51.0) % MCV 94.4 (80.0-100.0) fL MCH 30.5 (27.0-34.0) pg MCHC 32.3 (32.0-36.0) % RDW 18.0 H (11.6-17.2) % Plt Count 225 (150-450) th/mm3 MPV 9.0 (7.0-11.0) fL Prelim Diff (Auto) Slide review pending Neut % (Auto) 91.0 H (16.0-70.0) % Lymph % (Auto) 6.0 L (9.0-44.0) % [place] % (Auto) 2.9 (0.0-8.0) % Eos % (Auto) 0.0 (0.0-4.0) % Baso % (Auto) 0.1 (0.0-2.0) % Neut # (Auto) 3.3 (1.8-7.7) th/mm3 Lymph # (Auto) 0.2 L (1.0-4.8) th/mm3 [place] # (Auto) 0.1 (0.0-0.9) th/mm3 Eos # (Auto) 0.0 (0.0-0.4) th/mm3 Baso # (Auto) 0.0 (0.0-0.2) th/mm3 WBC Differential Differential Comment . PT (9.8-11.6) sec INR Ratio Sodium (136-145) meq/L Potassium (3.5-5.1) meq/L Chloride (98-107) meq/L Carbon Dioxide (21.0-32.0) meq/L Anion Gap (5-15) meq/L BUN (7-18) mg/dL Creatinine (0.60-1.30) mg/dL Estimated GFR (>89) mL/min POC Glucose 210 H (68-110) mg/dl Random Glucose (74-106) mg/dL Calcium (8.5-10.1) mg/dL Total Bilirubin (0.2-1.0) mg/dL AST (15-37) U/L ALT (12-78) U/L Alkaline Phosphatase (45-117) U/L Troponin I (0.02-0.05) ng/mL B-Natriuretic Peptide 38 (0-100) pg/mL Total Protein (6.4-8.2) g/dL Albumin (3.4-5.0) g/dL 02/19/18 Range/Units 05:33 WBC (4.0-11.0) th/mm3 RBC (4.50-5.90) mil/mm3 Hgb (13.0-17.0) gm/dL Hct (39.0-51.0) % MCV (80.0-100.0) fL MCH (27.0-34.0) pg MCHC (32.0-36.0) % RDW (11.6-17.2) % Plt Count (150-450) th/mm3 MPV (7.0-11.0) fL Prelim Diff (Auto) Neut % (Auto) (16.0-70.0) % Lymph % (Auto) (9.0-44.0) % [place] % (Auto) (0.0-8.0) % Eos % (Auto) (0.0-4.0) % Baso % (Auto) (0.0-2.0) % Neut # (Auto) (1.8-7.7) th/mm3 Lymph # (Auto) (1.0-4.8) th/mm3 [place] # (Auto) (0.0-0.9) th/mm3 Eos # (Auto) (0.0-0.4) th/mm3 Baso # (Auto) (0.0-0.2) th/mm3 WBC Differential Differential Comment PT (9.8-11.6) sec INR Ratio Sodium 139 (136-145) meq/L Potassium 3.8 (3.5-5.1) meq/L Chloride 106 (98-107) meq/L Carbon Dioxide 20.4 L (21.0-32.0) meq/L Anion Gap 13 (5-15) meq/L BUN 22 H (7-18) mg/dL Creatinine 0.77 (0.60-1.30) mg/dL Estimated GFR Greater than 89 (>89) mL/min POC Glucose (68-110) mg/dl Random Glucose 181 H (74-106) mg/dL Calcium 8.8 (8.5-10.1) mg/dL Total Bilirubin 0.2 (0.2-1.0) mg/dL AST 13 L (15-37) U/L ALT 27 (12-78) U/L Alkaline Phosphatase 72 (45-117) U/L Troponin I (0.02-0.05) ng/mL B-Natriuretic Peptide (0-100) pg/mL Total Protein 7.5 (6.4-8.2) g/dL Albumin 3.1 L (3.4-5.0) g/dL Imaging Data Radiologist's impression: Chest CTA 02/18/18 16:09 CONCLUSION: 1. The study is negative for pulmonary embolism. 2. Slight reduction size of right pleural effusion. Stable appearance to the right upper lobectomy site. Chest X-Ray 02/18/18 16:41 CONCLUSION: Persistent, unchanged, infiltrates in the right lower lung. Discharge Plan Discharge Disposition Patient Disposition: 30 Still Patient Physicians Team ED Provider: Alberto Mason Primary Care Provider: Emi Stone Attending Provider: Antonio Jeronimo Other Providers: Vlad Altman Arjun Status ED Status: Left Department Discharge Information Discharge Date/Time: 02/18/18 23:03
--- NOTE | 2018-02-18 20:09 | CT ---
EXAM DATE: 02/18/2018 6:11 PM EDT AGE/SEX: 62 years / Male INDICATIONS: Shortness of breath; rule out pulmonary embolus CLINICAL DATA: This is the patient's initial encounter. Patient reports that signs and symptoms have been present for 1 day and indicates a pain score of 6/10. MEDICAL/SURGICAL HISTORY: Chronic obstructive pulmonary disease. Pancreatitis. Hypertension. ETO H abuse, lung MRSA, recent diagnosis of lung cancer Tonsillectomy. RADIATION DOSE: 21.73 CTDI (mGy) COMPARISON: [facility] [place], CT CHEST W CONTRAST, 02/09/2018. . TECHNIQUE: Volumetric scanning was performed using a multi-row detector CT scanner during bolus infu mario of 75 ml Omnipaque 350 (iohexol) nonionic water-soluble contrast as a single exam dose. The waldemar a was post processed with a variety of visualization algorithms including full volume maximum intensi ty projection and sliding thin slab reformation. Using automated exposure control and adjustment of t he mA and/or kV according to patient size, radiation dose was kept as low as reasonably achievable to obtain optimal diagnostic quality images. DICOM format image data is available electronically for r eview and comparison. FINDINGS: Pulmonary Arteries: No filling defects are seen in the pulmonary arteries out to the subsegmental ve ssels. The left and right pulmonary arteries are normal in diameter. Lung: Status post right upper lobectomy. Parenchymal opacity in the lower right chest similar to antonio or postop no evidence of pneumothorax. The left lung is clear with moderate severity upper lobe emphy sema.. Effusion: Interval reduction in the size of right pleural effusion, now measuring 3.6 cm (previously measured 5.1 cm). Mediastinum: No evidence of mediastinal or hilar adenopathy. Other: There is some mild callus seen about the fracture of the posterior lateral right sixth rib CONCLUSION: 1. The study is negative for pulmonary embolism. 2. Slight reduction size of right pleural effusion. Stable appearance to the right upper lobectomy s ite. Electronically signed by: Minor Rosenthal MD 02/18/2018 8:08 PM EDT
--- NOTE | 2018-02-18 21:35 | ECG ---
Date Performed: 02/18/2018 Time Performed: 16:04:35 PTAGE: 62 years EKG: Unclear underlying rhythm, either sinus tachycardia with premature atrial contractions or m ultifocal atrial tachycardia. MODERATE ST DEPRESSION ABNORMAL ECG Compared to prior electrocardiogram , Rate has increased and ST depressions are now present. DOCTOR: Saurabh Hernandez Interpretating Date/Time 02/18/2018 21:34:45
[2018-02-18] MEDS ORDERED: Bisacodyl 10 MG Supp RECTAL PRN (21:39)
[2018-02-18] MEDS ORDERED: Acetaminophen 325 MG Tablet PO PRN (21:39)
--- NOTE | 2018-02-18 21:40 | P.HPIM ---
History of Present Illness Primary Care Physician: Emi Stone History of Present Illness: This is a 62-year-old Homeless male with a PMH of COPD, Squamous Cell Lung CA, PAD and Alcohol Abuse who presented to the ER w/ c/o SOB and wheezing starting today. Multiple recent admissions, admitted 12/06-12/10/17 for left foot pain and RUL obstruction, s/p Bronchoscopy 12/08/17, concerning for malignancy and eventually underwent LLE vascularization per report on 12/26/17. Re-admitted 01/04 -02/09/18 for c/o SOB, s/p RUL Lobectomy by Dr. Serrano on 01/04/18, pathology + squamous cell carcinoma, s/p eval by Dr. Kovacs, has been undergoing Radiation and Chemotherapy to continue until end of February, was d/c'd to a [facility] at that time until chemotherapy completed. Admitted again 02/09-02/16/18 for c/o SOB, found to have large right pleural effusion, s/p thoracentesis 02/10/18 w/ removal of 1100cc and treated for COPD exacerbation. States he returned to the [facility] after this last discharge and had been doing well so today he decided to take a walk. States he walked [address] on his way back to the [facility] developed severe SOB. Denies chest pain, cough or fever. Does note + wheezing. On arrival, BP 135/67, HR 133, O2 sat 95% on RA, Afebrile. CBC essentially unremarkable. INR 1.0. Chemistry unremarkable. Troponin negative. CXR with persistent unchanged infiltrates right lower lung. CTA Chest negative for PE, slight reduction in size of right pleural effusion, stable appearance to right upper lobectomy. - Diagnosis (1) Pleural effusion, right (2) COPD (chronic obstructive pulmonary disease) (3) Lung cancer (4) Alcohol abuse Review of Systems PAST FAMILY HISTORY: Reviewed. 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 - Medical History Medical History: Medical History (Last Reviewed 02/10/18 @ 14:17 by Grant Kaur) Mass of upper lobe of right lung (Acute) H/O chronic pancreatitis (Acute) Femoral artery occlusion, right (Acute) MRSA (methicillin resistant Staphylococcus aureus) (Acute) Homelessness (Acute) Tobacco abuse (Acute) Alcohol abuse (Acute) COPD (chronic obstructive pulmonary disease) (Acute) Hyperlipemia (Acute) Hypertension (Acute) - Surgical History Surgical History: Surgical History (Last Reviewed 02/09/18 @ 23:55 by Shayla Wilson DO) H/O hand surgery (Acute) History of tonsillectomy (Acute) Status post bilateral LASIK surgery (Acute) 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) - Family History Family History: Family History (Last Reviewed 02/09/18 @ 23:55 by Shayla Wilson DO) Mother Unknown family medical history Father Cancer - Tobacco History Second Hand Smoke Exposure: Yes Smoking Status: Former smoker Tobacco Type: Cigarettes Packs Per Day: 1 years: 35 - Alcohol History How Often Do You Have a Drink Containing Alcohol: 4 or more times a week - Substance Use History Substance History: Active Abuse - Substance Use Type Marijuana Status: Active - Travel History Recent Travel in the [place] Within the Last 8 Weeks: No Recent Travel Out of the Country Within the Last 8 Weeks: No - Immunization History Tetanus Immunization: <5 Years Hx Influenza Vaccine This Season: No Medications and Allergies Allergies Allergy/AdvReac Type Severity Reaction Status Date / Time codeine Allergy Severe Hives Verified 02/09/18 07:24 Home Medications Medication Instructions Recorded Confirmed Type albuterol sulfate [ProAir HFA] 2 puff INHALATION Q6H PRN 12/07/17 02/18/18 History fluticasone-salmeterol [Advair 250 mg INHALATION QID 12/07/17 02/18/18 History Diskus] lovastatin 40 mg PO DAILY 12/07/17 02/18/18 History hydrocodone-acetaminophen [[place]] 1 tab PO Q4H PRN 02/10/18 02/18/18 History Exam Vital signs: Vital Signs 02/18/18 16:04 02/18/18 16:30 02/18/18 16:33 Temperature 98.4 F Pulse Rate 133 H 118 H Respiratory Rate 32 H 25 H Blood Pressure 135/67 Pulse Oximetry 95 95 02/18/18 17:07 02/18/18 18:03 02/18/18 18:40 Temperature Pulse Rate 114 H 110 H 108 H Respiratory Rate 20 25 H 23 Blood Pressure 135/67 Pulse Oximetry 96 94 L 02/18/18 21:13 Temperature Pulse Rate 105 H Respiratory Rate 20 Blood Pressure 150/65 H Pulse Oximetry 95 Intake & Output 02/18/18 02/18/18 02/19/18 06:59 18:59 06:59 Weight 90.718 kg Narrative: PE: GENERAL: Pleasant middle-aged white male in no acute distress, sitting up on side of bed. SKIN: Focused skin assessment warm and dry. HEENT: PERRLA, EOMI. No scleral icterus or conjunctival pallor. No lid lag or facial droop. CARDIOVASCULAR: Regular rate and rhythm. No obvious murmurs to auscultation. No chest tenderness to palpation. RESPIRATORY: No obvious rhonchi. +occasional wheezing. Diminished at bases bilaterally. GASTROINTESTINAL: Abdomen soft, non-tender, nondistended. BS normal. MUSCULOSKELETAL: Extremities without clubbing, cyanosis, or edema. No obvious deformities. NEUROLOGICAL: Awake, alert and oriented x4. No focal neurologic deficits. Moving both upper and lower extremities spontaneously. PSYCHIATRIC: Appropriate mood and affect. Insight and judgment normal. Results - Labs CBC & Chem 7: 02/18/18 16:45 02/18/18 16:45 Labs: Short CBC 02/18/18 Range/Units 16:45 WBC 5.0 (4.0-11.0) th/mm3 Hgb 9.3 L (13.0-17.0) gm/dL Hct 27.6 L (39.0-51.0) % Plt Count 222 (150-450) th/mm3 BMP 02/18/18 16:45 Sodium 141 Potassium 3.3 L Chloride 106 Carbon Dioxide 20.9 L BUN 21 H Creatinine 1.06 Calcium 8.6 Cardiac Enzymes 02/18/18 Range/Units 16:45 Troponin I Less than 0.02 L (0.02-0.05) ng/mL Liver Function 02/18/18 Range/Units 16:45 Total Bilirubin 0.4 (0.2-1.0) mg/dL AST 19 (15-37) U/L ALT 27 (12-78) U/L Alkaline Phosphatase 77 (45-117) U/L Albumin 3.2 L (3.4-5.0) g/dL - Imaging Impressions Chest CTA 02/18/18 16:09 CONCLUSION: 1. The study is negative for pulmonary embolism. 2. Slight reduction size of right pleural effusion. Stable appearance to the right upper lobectomy site. Chest X-Ray 02/18/18 16:41 CONCLUSION: Persistent, unchanged, infiltrates in the right lower lung. Caprini VTE Risk Assessment Caprini VTE Risk Assessment: No/Low Risk (score <= 1) Caprini Risk Assessment Model: Point Value = 1 Point Value = 2 Point Value = 3 Point Value = 5 Age 41-60 Minor surgery BMI > 25 kg/m2 Swollen legs Varicose veins or History of unexplained or recurrent spontaneous Oral contraceptives or hormone replacement Sepsis (< 1 month) Serious lung disease, including pneumonia (< 1 month) Abnormal pulmonary function Acute myocardial infarction Congestive heart failure (< 1 month) History of inflammatory bowel disease Medical patient at bed rest Age 61-74 Arthroscopic surgery Major open surgery (> 45 min) Laparoscopic surgery (> 45 min) Malignancy Confined to bed (> 72 hours) Immobilizing plaster cast Central venous access Age >= 75 History of VTE Family history of VTE Factor V Leiden Prothrombin [id number] Lupus anticoagulant Anticardiolipin antibodies Elevated serum homocysteine Heparin-induced thrombocytopenia Other congenital or acquired thrombophilia Stroke (< 1 month) Elective arthroplasty Hip, pelvis, or leg fracture Acute spinal cord injury (< 1 month) Prophylaxis Regimen: Total Risk Factor Score Risk Level Prophylaxis Regimen 0-1 Low Early ambulation 2 Moderate Order ONE of the following: *Sequential Compression Device (SCD) *Heparin 5000 units SQ BID 3-4 Higher Order ONE of the following medications: *Heparin 5000 units SQ TID *Enoxaparin/Lovenox 40 mg SQ daily (WT < 150 kg, CrCl > 30 mL/min) *Enoxaparin/Lovenox 30 mg SQ daily (WT < 150 kg, CrCl > 10-29 mL/min) *Enoxaparin/Lovenox 30 mg SQ BID (WT < 150 kg, CrCl > 30 mL/min) AND/OR *Sequential Compression Device (SCD) 5 or more Highest Order ONE of the following medications: *Heparin 5000 units SQ TID (Preferred with Epidurals) *Enoxaparin/Lovenox 40 mg SQ daily (WT < 150 kg, CrCl > 30 mL/min) *Enoxaparin/Lovenox 30 mg SQ daily (WT < 150 kg, CrCl > 10-29 mL/min) *Enoxaparin/Lovenox 30 mg SQ BID (WT < 150 kg, CrCl > 30 mL/min) AND *Sequential Compression Device (SCD) Assessment and Plan - Assessment (1) Pleural effusion, right Code(s): J90 - Pleural effusion, not elsewhere classified Status: Acute (2) COPD (chronic obstructive pulmonary disease) Code(s): J44.9 - Chronic obstructive pulmonary disease, unspecified Status: Acute (3) Lung cancer Code(s): C34.90 - Malignant neoplasm of unspecified part of unspecified bronchus or lung Status: Acute (4) Alcohol abuse Code(s): F10.10 - Alcohol abuse, uncomplicated Status: Acute - Plan A/P: 1. Pleural Effusion: Right. Recurrent. Recent admit 02/09-02/16/18 s/p Thoracentesis w/ removal of 1100cc, CTA Chest w/ apparent reaccumulation of fluid, images reviewed. Concern for recurrent malignant effusion, consult Pulmonology for further kelby/recommendations. Hold ASA/Plavix for likely thoracentesis. Monitor I/O, Monitor O2 2. Lung CA: Recent diagnosis of Squamous Cell Lung CA, receiving Radiation/ Chemo, following w/ Dr. Kovacs, will consult for further eval. 3. COPD: Chronic Respiratory Failure w/ Acute Exacerbation. Moderate. + wheezing on exam. Solu-Medrol, DuoNeb, Symbicort, Mucinex 4. Alcohol Abuse: CIWA, Seizure Precautions, MVT/Thiamine/Folate replacement 5. DVT Prophylaxis: SCD/Teds 6. Case management for d/c planning back to [facility] at time of discharge 7. Case discussed w/ ER physician at length, labs/records/imaging reviewed extensively by me.
[2018-02-18] MEDS ORDERED: Haloperidol Inj 5 MG/ML Ampul IV.PUSH PRN (22:01)
[2018-02-18] MEDS ORDERED: LORazepam 1 MG Tablet PO PRN (22:01)
[2018-02-19] MEDS: MethylPREDNISolone Sod Succinate Inj 40 MG/ML Vial IV.PUSH SCH ×5 (01:25→23:33)
[2018-02-19 06:40] LABS: Baso % (Auto) 0.1 % (0.0-2.0); Hemoglobin 8.4 gm/dL (13.0-17.0); Lymph # (Auto) 0.2 th/mm3 (1.0-4.8); Mean Corpuscular HGB Conc 32.3 % (32.0-36.0); Mean Corpuscular Hemoglobin 30.5 pg (27.0-34.0); Mean Corpuscular Volume 94.4 fL (80.0-100.0); Mono # (Auto) 0.1 th/mm3 (0.0-0.9); Mono % (Auto) 2.9 % (0.0-8.0); Neut # (Auto) 3.3 th/mm3 (1.8-7.7); Platelet Count 225 th/mm3 (150-450); Red Blood Count 2.75 mil/mm3 (4.50-5.90); White Blood Count 3.6 th/mm3 (4.0-11.0)
[2018-02-19 06:56] LABS: Albumin 3.1 g/dL (3.4-5.0); Anion Gap 13 meq/L (5-15); Aspartate Aminotransferase 13 U/L (15-37); Blood Urea Nitrogen 22 mg/dL (7-18); Calcium 8.8 mg/dL (8.5-10.1); Carbon Dioxide 20.4 meq/L (21.0-32.0); Chloride 106 meq/L (98-107); Glomerular Filtration Rate Greater Than 89 mL/min (>89); Glucose,Random 181 mg/dL (74-106); Potassium 3.8 meq/L (3.5-5.1); Sodium 139 meq/L (136-145)
[2018-02-19 06:58] LABS: Alanine Aminotransferase 27 U/L (12-78)
[2018-02-19 07:00] LABS: Alkaline Phosphatase 72 U/L (45-117); Total Protein 7.5 g/dL (6.4-8.2)
[2018-02-19 08:14] LABS: Lymphocytes 6 % (9-44); Monocytes 2 % (0-8); Myelocytes 2 % (0-0)
[2018-02-19 08:15] LABS: Dimorphic RBC Present; Platelet Estimate Normal (Normal); Platelet Morphology Normal (Normal)
[2018-02-19] MEDS ORDERED: FLUTICASONE SALMETEROL INHALATION SCH (09:00)
[2018-02-19] MEDS: Senna/Docusate Sodium 8.6/50 MG Tablet PO SCH ×2 (09:02→20:20)
[2018-02-19] MEDS: Budesonide-Formoterol 160/4.5 MCG 6 GM Inhaler INH SCH ×2 (09:03→20:21)
[2018-02-19] MEDS: guaiFENesin 600 MG ER Tablet PO SCH ×2 (09:06→20:20)
[2018-02-19] MEDS: Multivitamin/Minerals Therapeutic Tablet PO SCH (09:06)
[2018-02-19] MEDS: Folic Acid 1 MG Tablet PO SCH (09:06)
--- NOTE | 2018-02-19 16:37 | P.PNIM ---
Subjective Interval history: Patient is sitting up and states that he is not overtly short of breath as long as he does not exert himself. He is off of oxygen currently. Enjoying his dinner. He understands that he has lung cancer and will need to proceed with treatment at some point. Physical Exam Vital signs: Vital Signs 02/18/18 16:33 02/18/18 17:07 02/18/18 18:03 Temperature Pulse Rate 118 H 114 H 110 H Respiratory Rate 25 H 20 25 H Blood Pressure 135/67 Pulse Oximetry 96 94 L 02/18/18 18:40 02/18/18 20:00 02/18/18 21:13 Temperature Pulse Rate 108 H 105 H Respiratory Rate 23 20 Blood Pressure 150/65 H Pulse Oximetry 98 95 02/19/18 00:00 02/19/18 01:33 02/19/18 04:00 Temperature 97.8 F 97.6 F 97.6 F Pulse Rate 92 H 95 H 88 Respiratory Rate 18 20 18 Blood Pressure 121/55 L 146/74 H 124/79 Pulse Oximetry 96 97 98 02/19/18 04:02 02/19/18 08:18 02/19/18 08:44 Temperature 97.7 F Pulse Rate 88 91 H 91 H Respiratory Rate 18 Blood Pressure 134/79 Pulse Oximetry 98 02/19/18 09:14 02/19/18 11:34 02/19/18 13:00 Temperature 98.0 F Pulse Rate 95 H 95 H Respiratory Rate 20 Blood Pressure 124/70 Pulse Oximetry 98 96 02/19/18 15:51 Temperature Pulse Rate 96 H Respiratory Rate Blood Pressure Pulse Oximetry Intake & Output 02/18/18 02/19/18 02/19/18 18:59 06:59 18:59 Intake Total 630 / 630 240 / 240 Output Total 350 / 350 925 / 925 Balance 280 / 280 -685 / -685 Weight 90.718 kg 94.2 kg Intake: IV 150 / 150 Levaquin 750 mg Premix Inj 150 150 / 150 ML @ 100 mls/hr IV.SIG Q24H [facility] Rx#:[id number] Oral 480 / 480 240 / 240 Output: Urine 350 / 350 925 / 925 Other: Date of Last Bowel Movement 02/19/18 # Bowel Movements 1 Weight On Admission 97.522 kg Narrative: GENERAL: AAOx3, no acute distress, obese SKIN: Warm and dry. No rashes HEAD: Atruamtic, normocephalic. EYES: No scleral icterus. No injection or drainage. ENT: Moist mucous membranes, patent nares, no erythema of oropharynx. NECK: Supple, trachea midline. No JVD or lymphadenopathy. Normal thyroid. CARDIOVASCULAR: Regular rate and rhythm. No murmurs, gallops, or rubs. RESPIRATORY: Diminished breath sounds in bases bilaterally, scattered wheezing and crackles posteriorly. No accessory muscle use. GASTROINTESTINAL: Abdomen soft, non-tender, nondistended, normal active bowel sounds MUSCULOSKELETAL: No cyanosis, or edema. NEURO: CN II-XII grossly intact, no focal deficits, no slurring of speech Results - Labs CBC & Chem 7: 02/19/18 05:33 02/19/18 05:33 Laboratory Results - last 24 hr 02/18/18 02/18/18 02/18/18 16:45 16:45 16:45 WBC 5.0 RBC 2.97 L Hgb 9.3 L Hct 27.6 L MCV 92.9 MCH 31.2 MCHC 33.6 RDW 17.6 H Plt Count 222 MPV 8.8 Prelim Diff (Auto) Neut % (Auto) 77.3 H Lymph % (Auto) 13.7 [place] % (Auto) 8.5 H Eos % (Auto) 0.2 Baso % (Auto) 0.3 Neut # (Auto) 3.9 Lymph # (Auto) 0.7 L [place] # (Auto) 0.4 Eos # (Auto) 0.0 Baso # (Auto) 0.0 WBC Differential . Seg Neuts % (Manual) Band Neuts % (Manual) Lymphocytes % (Manual) Monocytes % (Manual) Myelocytes % (Man) Abs Neuts (Manual) Differential Comment Auto diff final Platelet Estimate Platelet Morphology Dimorphic RBCs Keratocytes PT 10.5 INR 1.0 Sodium 141 Potassium 3.3 L Chloride 106 Carbon Dioxide 20.9 L Anion Gap 14 BUN 21 H Creatinine 1.06 Estimated GFR 71 L POC Glucose Random Glucose 158 H Calcium 8.6 Total Bilirubin 0.4 AST 19 ALT 27 Alkaline Phosphatase 77 Troponin I Less than 0.02 L B-Natriuretic Peptide Total Protein 7.4 Albumin 3.2 L Carcinoembryonic Ag 02/18/18 02/18/18 02/19/18 16:45 23:24 05:33 WBC 3.6 L RBC 2.75 L Hgb 8.4 L Hct 26.0 L MCV 94.4 MCH 30.5 MCHC 32.3 RDW 18.0 H Plt Count 225 MPV 9.0 Prelim Diff (Auto) Slide review pending Neut % (Auto) 91.0 H Lymph % (Auto) 6.0 L [place] % (Auto) 2.9 Eos % (Auto) 0.0 Baso % (Auto) 0.1 Neut # (Auto) 3.3 Lymph # (Auto) 0.2 L [place] # (Auto) 0.1 Eos # (Auto) 0.0 Baso # (Auto) 0.0 WBC Differential Manual diff final Seg Neuts % (Manual) 79 H Band Neuts % (Manual) 11 H Lymphocytes % (Manual) 6 L Monocytes % (Manual) 2 Myelocytes % (Man) 2 H Abs Neuts (Manual) 3.3 Differential Comment . Platelet Estimate Normal Platelet Morphology Normal Dimorphic RBCs Present H Keratocytes Occ H PT INR Sodium Potassium Chloride Carbon Dioxide Anion Gap BUN Creatinine Estimated GFR POC Glucose 210 H Random Glucose Calcium Total Bilirubin AST ALT Alkaline Phosphatase Troponin I B-Natriuretic Peptide 38 Total Protein Albumin Carcinoembryonic Ag 02/19/18 02/19/18 02/19/18 05:33 05:33 15:33 WBC RBC Hgb Hct MCV MCH MCHC RDW Plt Count MPV Prelim Diff (Auto) Neut % (Auto) Lymph % (Auto) Lar[place] % (Auto) Eos % (Auto) Baso % (Auto) Neut # (Auto) Lymph # (Auto) [place] # (Auto) Eos # (Auto) Baso # (Auto) WBC Differential Seg Neuts % (Manual) Band Neuts % (Manual) Lymphocytes % (Manual) Monocytes % (Manual) Myelocytes % (Man) Abs Neuts (Manual) Differential Comment Platelet Estimate Platelet Morphology Dimorphic RBCs Keratocytes PT INR Sodium 139 Potassium 3.8 Chloride 106 Carbon Dioxide 20.4 L Anion Gap 13 BUN 22 H Creatinine 0.77 Estimated GFR Greater than 89 POC Glucose 200 H Random Glucose 181 H Calcium 8.8 Total Bilirubin 0.2 AST 13 L ALT 27 Alkaline Phosphatase 72 Troponin I B-Natriuretic Peptide Total Protein 7.5 Albumin 3.1 L Carcinoembryonic Ag 1.9 - Imaging Impressions Chest CTA 02/18/18 16:09 CONCLUSION: 1. The study is negative for pulmonary embolism. 2. Slight reduction size of right pleural effusion. Stable appearance to the right upper lobectomy site. Chest X-Ray 02/18/18 16:41 CONCLUSION: Persistent, unchanged, infiltrates in the right lower lung. Assessment and Plan - Assessment (1) Pleural effusion, right Code(s): J90 - Pleural effusion, not elsewhere classified Status: Acute (2) COPD (chronic obstructive pulmonary disease) Code(s): J44.9 - Chronic obstructive pulmonary disease, unspecified Status: Acute (3) Lung cancer Code(s): C34.90 - Malignant neoplasm of unspecified part of unspecified bronchus or lung Status: Acute (4) Alcohol abuse Code(s): F10.10 - Alcohol abuse, uncomplicated Status: Acute - Plan Pleural effusion Right side, recurrent, previously removed 1100 cc via thoracentesis. We will defer to pulmonology or oncology to determine whether thoracentesis or pleurodesis is the better approach Continue to monitor oxygen levels and continue telemetry Appreciate oncology consult Appreciate pulmonology consult Lung cancer Recent diagnosis of squamous cell lung cancer Patient is following with Dr. Kovacs for radiation and chemo treatment Appreciate oncology consult COPD exacerbation Always a contributor, but I guess is this is approximately 20% of the issue with his breathing Moderate flareup, continue Solu-Medrol, duo nebs, Symbicort, Mucinex Continue supplemental oxygen as needed, continue pulse oximetry and telemetry Alcoholism Patient drinks 8 beers per day Continue CIWA protocol and seizure precautions Continue thiamine, folate, multivitamin for replacement DVT prophylaxis SCDs, chemoprophylaxis held due to possibility of thoracentesis versus pleurodesis in the next day or 2
--- NOTE | 2018-02-19 18:00 | MB ---
cc: Vlad Altman MD DATE: 02/19/2018 REASON FOR CONSULTATION: Patient with a non-small cell lung cancer, T1c N2 M0, receiving carboplatin and Taxol with radiation, admitted with shortness of breath and a right pleural effusion. PATIENT PROFILE: The patient is a 62-year-old male. He is single. He was never . He has no children. He is most of the time homeless. He is now living in a hotel and it is my understanding that the hospital has helped him secure this room. He has smoked 2 packs of cigarettes per day for most of his life. He states that he stopped smoking within the past few weeks. He is alcoholic and consumes 8 beers per day. HISTORY OF PRESENT ILLNESS: The patient's history dates back to 01/04/2018 when he underwent a right upper lobectomy and lymph node dissection for a non-small cell lung cancer. The pathology report showed a tumor measuring 2.5 cm. There were 2 tumors in the right lung; the larger which was a 2.5 cm was an invasive squamous cell carcinoma. There was also a minimally invasive adenocarcinoma nonmucinous type. The tumor was moderate to poorly differentiated. A bronchial margin was involved by invasive squamous carcinoma. He had one lymph node positive and the final stage was pathologic stage T1c N2. From the path report it is my understanding that this would be an R1 microscopic resection as there was a positive margin. He has been undergoing treatment with radiation and carboplatin and Taxol. He has received radiation for approximately a week and one treatment with carboplatin and Taxol. He had a right thoracentesis on 02/10/2018 for shortness of breath associated with a right pleural effusion. A total of 1000 mL of fluid was removed. There was no evidence of malignancy with a negative cytology. On the day of admission, he noted increasing shortness of breath and felt that he could not get enough air. For this reason, he went to the emergency room and on 02/19/[address] angiogram. The images were reviewed. There is no evidence of pulmonary emboli. There still remains a moderate right pleural effusion, smaller than before, but nevertheless present. There is no evidence of metastatic disease. Other studies on 02/19/2018 include a hemoglobin of 8.4, white count 2600 and platelets 225,000, he has 2% myelocytes. Electrolytes, BUN, creatinine and liver function tests unremarkable. Glucose 181, albumin 3.1. PAST SURGICAL HISTORY: 1. Tonsillectomy. 2. Bilateral LASIK surgery to the eyes. 3. Recent stent placement, right leg. 4. Approximately a year ago, he had some type of surgery for peripheral vascular disease involving the right lower extremity. MEDICATIONS PRIOR TO ADMISSION: He was taking none, although he was started on weekly carboplatin and Taxol and received 1 treatment. ALLERGIES: CODEINE. FAMILY HISTORY: No history of malignancy. REVIEW OF SYSTEMS: No change in vision or hearing. Occasional mild discomfort in the right chest. RESPIRATORY: Notable for significant shortness of breath, which has worsened recently. GASTROINTESTINAL: Weight gain. No melena, hematochezia, or hematemesis. GENITOURINARY: No dysuria or frequency. MUSCULOSKELETAL: No bone pain. NEUROLOGIC: No weakness. ASSESSMENT: The patient is a 62-year-old male with a longstanding history of tobacco use. He is alcoholic. He had a right upper lobectomy for a pathologic T1c N2 M0 squamous cell carcinoma of the lung. He appears to have a positive surgical margin, where the path report reads bronchial margin: involved by invasive squamous cell carcinoma. He now has recurrent pleural effusion. It would not surprise me if this is malignant in spite of the previous negative cytology. RECOMMENDATIONS: Dr. Kovacs will be returning tomorrow and Pulmonary has been consulted. One can do another thoracentesis. Another possibility would be to do a thoracoscopy, which would allow evaluation of the pleura to determine if he has metastatic disease and at the same time, do a pleurodesis. If he does have metastatic disease to the pleura, then there would be no point in proceeding with radiation. If there is no evidence of metastatic disease, then at the time of the thoracoscopy he could have a pleurodesis and then go on to receive continued radiation and carboplatin and Taxol. I have ordered a CEA. If this is significantly elevated, this would suggest recurrent disease. Dr. Kovacs will return tomorrow. MD TAM Singh/lisa , 03:23 PM , 03:34 PM LUCIANO
--- NOTE | 2018-02-19 19:23 | MB ---
cc: Isaias Miranda MD DATE: 02/19/2018 REQUESTING PHYSICIAN: Ai Jane MD REASON FOR CONSULTATION: COPD and lung cancer. HISTORY OF PRESENT ILLNESS: Mr. Garcia is a 62-year-old male with a history of COPD, squamous cell carcinoma of the lung, status post right upper lobectomy. The patient was in the hospital for a long period and recently was readmitted and had thoracentesis done. The patient was placed in a motel by [facility] so that he can complete his chemotherapy and radiation therapy. He follows with Dr. Kovacs and has received chemotherapy and he is undergoing radiation treatment. He came to the hospital because he said he walked to the and the weather was very hot. He became very short of breath and could not make it back to . His chest x-ray shows persistent infiltrate in the right lower lobe. PAST MEDICAL HISTORY: Significant for history of squamous cell carcinoma of the lung, status post right upper lobectomy, COPD, hypertension. CURRENT MEDICATIONS: He is currently takin. Tylenol. 2. Milk of magnesia. 3. Nebulizer treatment with DuoNeb 4 times a day. 4. Aspirin 81 mg a day. 5. Symbicort 160/4.5 mcg 2 puffs twice a day. 6. Lovenox 40 mg subcutaneous daily. 7. Folic acid 1 mg a day. 8. Lasix 20 mg IV push. 9. Mucinex 1 tablet twice a day. 10. Haldol p.r.n. for agitation 11. Levaquin 750 mg a day. 12. Ativan 2 mg p.r.n. 13. Solu-Medrol 40 mg every 6 hours. 14. Protonix 40 mg a day. 15. Pravachol 40 mg a day. 16. Prednisone 5 mg twice a day. 17. Flomax 0.4 mg a day. ALLERGIES: HE IS ALLERGIC TO CODEINE. SOCIAL HISTORY: He has a history of smoking 1 pack a day, drinks beer, and uses marijuana. He is homeless. He was recently in the hospital and he was placed in the motel by [facility]. FAMILY HISTORY: Has 1 child. REVIEW OF SYSTEMS: The patient walks only short distance, gets short of breath. Weight is stable. No difficulty swallowing. No seizure, stroke or epilepsy. PHYSICAL EXAMINATION: GENERAL: Well-developed, well-nourished, not in acute distress. VITAL SIGNS: Blood pressure 124/70, heart rate 95, respiratory rate 20, temperature 98. HEENT: Pupils are equal and reactive to light. Oral mucosa and nasal mucosa normal. NECK: Supple. JVP not raised. CHEST: With decreased breath sounds at the right base. CARDIOVASCULAR: S1, S2 normal. ABDOMEN: Benign. EXTREMITIES: No edema. IMPRESSION: 1. Chronic obstructive pulmonary disease. 2. Squamous cell carcinoma of the lung. He is on chemotherapy and radiation treatment. 3. Nicotine use. 4. Pleural effusion. 5. The patient is homeless. PLAN: I discussed with the patient will give him aerosol treatment with albuterol/Atrovent and Symbicort twice a day. Continue IV Solu-Medrol. He is stable on room air. The patient will need to complete his chemo and radiation treatment for cancer of the lung. Further treatment will depend on the course in the hospital. Thank you, Dr. Jane, for this consult. MD CLAUDE Gaffney/beth/stephanie , 04:02 PM , 04:11 PM
[2018-02-20] MEDS: MethylPREDNISolone Sod Succinate Inj 40 MG/ML Vial IV.PUSH SCH ×3 (05:10→17:22)
[2018-02-20 07:52] LABS: Hematocrit 25.3 % (39.0-51.0); Hemoglobin 8.3 gm/dL (13.0-17.0); Mean Corpuscular HGB Conc 32.8 % (32.0-36.0); Mean Corpuscular Hemoglobin 30.9 pg (27.0-34.0); Mean Corpuscular Volume 94.3 fL (80.0-100.0); Mean Platelet Volume 9.1 fL (7.0-11.0); Platelet Count 233 th/mm3 (150-450); Red Blood Count 2.69 mil/mm3 (4.50-5.90); Red Cell Distribution Width 17.7 % (11.6-17.2); White Blood Count 8.2 th/mm3 (4.0-11.0)
--- NOTE | 2018-02-20 07:53 | P.PNONC ---
Subjective Interval history: Patient seen and examined, vital signs, labs and medications reviewed. CT thorax reviewed. Subjectively; patient reports going out for a walk on Tuesday, he tells me it was hot it was in the middle of the day and he became extremely short of breath after walking about a mile or so. He came into the ER via EMS due to shortness of breath. CT thorax revealed reaccumulated right-sided pleural effusion which is moderate in volume. Patient tells me he feels less short of breath with oxygen supplementation and with rest. Last week he was initiated on combined chemoradiotherapy, he received 1 dose of carboplatin and Taxol and also received 4 fractions of radiation. Objective Vital Signs/Intake & Output: Vital Signs 02/19/18 08:18 02/19/18 08:44 02/19/18 09:14 Temperature 97.7 F Pulse Rate 91 H 91 H Respiratory Rate 18 Blood Pressure 134/79 Pulse Oximetry 98 98 02/19/18 11:34 02/19/18 13:00 02/19/18 15:51 Temperature 98.0 F Pulse Rate 95 H 95 H 96 H Respiratory Rate 20 Blood Pressure 124/70 Pulse Oximetry 96 02/19/18 16:00 02/19/18 20:00 02/19/18 20:14 Temperature 98.6 F 97.6 F Pulse Rate 99 H 103 H 96 H Respiratory Rate 20 20 Blood Pressure 141/74 H 136/83 Pulse Oximetry 98 97 02/20/18 00:00 02/20/18 00:12 02/20/18 04:00 Temperature 97.7 F 97.6 F Pulse Rate 88 87 91 H Respiratory Rate 18 22 Blood Pressure 133/75 131/92 H Pulse Oximetry 96 98 02/20/18 04:12 Temperature Pulse Rate 90 Respiratory Rate Blood Pressure Pulse Oximetry Intake & Output 02/19/18 02/20/18 02/20/18 18:59 06:59 18:59 Intake Total 1440 / 1440 630 / 630 Output Total 2525 / 2525 1175 / 1175 Balance -1085 / -1085 -545 / -545 Weight 93.6 kg Intake: IV 150 / 150 Levaquin 750 mg Premix Inj 150 150 / 150 ML @ 100 mls/hr IV.SIG Q24H [facility] Rx#:[id number] Oral 1440 / 1440 480 / 480 Output: Urine 2525 / 2525 1175 / 1175 Other: Date of Last Bowel Movement 02/18/18 Result Diagrams: 02/20/18 07:15 02/19/18 05:33 Laboratory Results: Laboratory Results - last 24 hr 02/19/18 02/19/18 02/19/18 05:33 05:33 15:33 WBC Differential Manual diff final Seg Neuts % (Manual) 79 H Band Neuts % (Manual) 11 H Lymphocytes % (Manual) 6 L Monocytes % (Manual) 2 Myelocytes % (Man) 2 H Abs Neuts (Manual) 3.3 Platelet Estimate Normal Platelet Morphology Normal Dimorphic RBCs Present H Keratocytes Occ H POC Glucose 200 H Carcinoembryonic Ag 1.9 02/20/18 00:58 WBC Differential Seg Neuts % (Manual) Band Neuts % (Manual) Lymphocytes % (Manual) Monocytes % (Manual) Myelocytes % (Man) Abs Neuts (Manual) Platelet Estimate Platelet Morphology Dimorphic RBCs Keratocytes POC Glucose 190 H Carcinoembryonic Ag Medications: Active Medications Generic Name Dose Route Start Last Admin Trade Name Letty PRN Reason Stop Dose Admin Budesonide/Formoterol Fumarate 2 puff 02/19/18 09:00 02/19/18 20:21 Symbicort 160/4.5 Mcg Inh INH 2 puff BID IAN Administration Folic Acid 1 mg 02/19/18 09:00 02/19/18 09:06 Folic Acid PO 02/24/18 08:59 1 mg DAILY IAN Administration Furosemide 20 mg 02/19/18 09:00 02/19/18 17:46 Lasix Inj IV.PUSH 20 mg BID@0900,1800 IAN Administration Guaifenesin 600 mg 02/19/18 09:00 02/19/18 20:20 Mucinex Er PO 600 mg BID IAN Administration Levofloxacin/Dextrose 150 mls @ 100 mls/hr 02/18/18 23:00 02/20/18 01:00 Levaquin 750 Mg Premix Inj IV.SIG Infused Q24H [facility] Infusion Methylprednisolone Sodium Succinate 40 mg 02/19/18 00:00 02/20/18 05:10 Solumedrol Inj IV.PUSH 40 mg Q6H [facility] Administration Multivitamins/Minerals 1 tab 02/19/18 09:00 02/19/18 09:06 Theragran-M PO 02/24/18 08:59 1 tab DAILY IAN Administration Pantoprazole Sodium 40 mg 02/19/18 21:00 02/19/18 20:21 Protonix PO 40 mg HS IAN Administration Senna/Docusate Sodium 1 tab 02/19/18 09:00 02/19/18 20:20 Whit-Colace PO 1 tab BID IAN Administration Tamsulosin HCl 0.4 mg 02/19/18 09:00 02/19/18 09:06 Flomax PO 0.4 mg DAILY IAN Administration Thiamine HCl 100 mg 02/19/18 09:00 02/19/18 09:06 Vitamin B1 PO 100 mg DAILY IAN Administration Torsemide 10 mg 02/19/18 09:00 02/19/18 17:45 Demadex PO 10 mg BID@0900,1800 IAN Administration Objective Remarks: GENERAL: Middle-aged man, tall, heavyset, disheveled not acutely distressed. SKIN: Warm and dry. HEAD: Normocephalic. EYES: No scleral icterus. No injection or drainage. NECK: Supple, trachea midline. No JVD or lymphadenopathy. LYMPHATIC: No adenopathy. CARDIOVASCULAR: Regular rate and rhythm without murmurs. RESPIRATORY: Decreased breath sounds over the right base, scattered crepitus and rhonchi prolonged expiratory phase. GASTROINTESTINAL: Obese belly, soft, nontender no palpable organ enlargement, positive bowel sounds. EXTREMITIES: No cyanosis, or edema. MUSCULOSKELETAL: Adequate muscle tone. NEUROLOGICAL: No obvious focal deficit. Awake, alert, and oriented x3. PSYCHIATRIC: Appropriate mood and affect; insight and judgment normal. Assessment/Plan - Plan Mr. Garcia is a 62-year-old man with a diagnosis of a squamous cell carcinoma of the right lung, he had pathologic stage T1cN2 M0/Mx disease. Was initiated on combined modality chemoradiotherapy after undergoing attempted surgical resection in December 2017. Patient has had repeated hospitalizations over the past month and a half primarily for difficulty breathing and lack of social support. He was discharged from the hospital late last week and was rehospitalized over the weekend for shortness of breath. CT thorax reveals a reaccumulated right-sided pleural effusion which is moderate in size. He underwent A thoracentesis about a week and a half ago which revealed no evidence of malignant cells on cytologic review. Recommendations: 1. Squamous cell carcinoma of the right lung: Continue combined modality chemoradiotherapy with weekly carboplatin and Taxol. 2. Right-sided pleural effusion: Request ultrasound-guided thoracentesis with repeat cytology. If the pleural fluid re-accumulates he may require chest tube and pleurodesis. At this point I would hold off on having a thoracotomy with exploration of the right hemithorax. 3. I talked to the patient about quitting alcohol abuse. He tells me he only has "a few beers here and there" when he leaves the hospital.
[2018-02-20 08:13] LABS: Anion Gap 12 meq/L (5-15); Blood Urea Nitrogen 26 mg/dL (7-18); Calcium 8.8 mg/dL (8.5-10.1); Carbon Dioxide 24.3 meq/L (21.0-32.0); Chloride 107 meq/L (98-107); Glomerular Filtration Rate Greater Than 89 mL/min (>89); Glucose,Random 151 mg/dL (74-106); Potassium 3.4 meq/L (3.5-5.1); Sodium 143 meq/L (136-145)
[2018-02-20] MEDS: Budesonide-Formoterol 160/4.5 MCG 6 GM Inhaler INH SCH ×2 (09:09→20:29)
[2018-02-20] MEDS: Senna/Docusate Sodium 8.6/50 MG Tablet PO SCH ×2 (09:09→20:29)
[2018-02-20] MEDS: Multivitamin/Minerals Therapeutic Tablet PO SCH (09:09)
[2018-02-20] MEDS: Folic Acid 1 MG Tablet PO SCH (09:09)
[2018-02-20] MEDS: guaiFENesin 600 MG ER Tablet PO SCH ×2 (09:09→20:29)
--- NOTE | 2018-02-20 10:52 | XR ---
EXAM DATE: 02/20/2018 12:00 AM EDT AGE/SEX: 62 years / Male INDICATIONS: Post right side thoracentesis. CLINICAL DATA: This is the patient's subsequent encounter. Patient reports that signs and symptoms h ave been present for 2 weeks and indicates a pain score of 0/10. MEDICAL/SURGICAL HISTORY: . Chronic obstructive pulmonary disease. Pancreatitis. Hypertension. ETOH abuse, lung MRSA, recent diagnosis of lung cancer. . Tonsillectomy. COMPARISON: [facility] [place]ST 1V SINGLE AP, 02/18/2018. . FINDINGS: No pneumothorax following right-sided thoracentesis. Interval improvement with less pleural effusion. Minimal parenchymal changes right base with prominent right hilum Left lung clear. CONCLUSION: Negative for pneumothorax Electronically signed by: Cayetano Gabriel MD 02/20/2018 10:51 AM EDT
[2018-02-20] MEDS ORDERED: Granisetron Inj 1 MG, Dexamethasone Inj 20 MG in Sodium Chlor 0.9% Inj 50 ML IV.SIG ONE ×2 (11:00)
[2018-02-20] MEDS ORDERED: Sodium Chlor 0.9% Inj 250 ML IV.SIG ONE (11:00)
[2018-02-20] MEDS ORDERED: Famotidine PF Inj 20 MG/2 ML Vial IV.PUSH ONE (11:00)
[2018-02-20] MEDS ORDERED: SODIUM CHLOR 0.9% IV.SIG ONE ×2 (12:00→14:00)
[2018-02-20] MEDS ORDERED: PACLITAXEL IV.SIG ONE (12:00)
--- NOTE | 2018-02-20 12:17 | US ---
EXAM DATE: 02/20/2018 12:00 AM EDT AGE/SEX: 62 years / Male INDICATIONS: Right pleural effusion. CLINICAL DATA: This is the patient's subsequent encounter. Patient reports that signs and symptoms h ave been present for 1 week and indicates a pain score of 0/10. MEDICAL/SURGICAL HISTORY: Chronic obstructive pulmonary disease. Hypertension. Pancreatitis. Hyperlipidemia. Mass of right lobe of lung. 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 Tonsillectomy. Right lower Femoropopoliteal arterial thrombosis Surgery. COMPARISON: [facility] – [place], CHEST EXPIRATION ONLY, 02/20/2018. . FLUID: Total volume of 600 cc of clear, red fluid was removed. Fluid was sent to lab for ordered studies. . . TECHNIQUE: Ultrasound guidance for thoracentesis. Thoracentesis. The risks, benefits, and alternatives to ultrasound guided thoracentesis were explained to the patien t in lay simple terms, including the risk of bleeding and infection. Written and verbal informed con sent was obtained. Appropriate area for right thoracentesis was marked under ultrasound guidance with the patient in the upright position. Overlying skin was prepped and draped in the usual sterile fashion and with local anesthetic, a dermatotomy was made with an 11 blade scalpel. A 6 Hebrew thoracentesis catheter was placed in the pleural space and fluid was removed. Catheter was then removed and a sterile dressing applied. There were no immediate complications. The patient tolerated the procedure well and the lef t the ultrasound suite in stable condition. Chest radiograph is to be obtained. CONCLUSION: 1. Uncomplicated right-sided thoracentesis. Electronically signed by: Minor Vizcarra MD 02/20/2018 12:15 PM EDT
[2018-02-20] MEDS ORDERED: CARBOPLATIN IV.SIG ONE (14:00)
[2018-02-20] MEDS ORDERED: Dextrose 50% in Water 50 ML Vial IV.PUSH PRN (15:23)
[2018-02-20] MEDS: Insulin NovoLIN Regular Correctional Sugar Inj SQ SCH ×2 (17:22→21:47)
--- NOTE | 2018-02-20 17:52 | P.PNIM ---
Subjective Interval history: Mr. Garcia had a busy day today, he underwent thoracentesis this morning, followed by radiation therapy of his lung cancer, followed by chemotherapy being currently administered this evening. He denies any nausea or vomiting. He feels tired but has an appetite and is ready to eat his dinner. Physical Exam Vital signs: Vital Signs 02/19/18 20:00 02/19/18 20:14 02/20/18 00:00 Temperature 97.6 F 97.7 F Pulse Rate 103 H 96 H 88 Respiratory Rate 20 18 Blood Pressure 136/83 133/75 Pulse Oximetry 97 96 02/20/18 00:12 02/20/18 04:00 02/20/18 04:12 Temperature 97.6 F Pulse Rate 87 91 H 90 Respiratory Rate 22 Blood Pressure 131/92 H Pulse Oximetry 98 02/20/18 07:51 02/20/18 08:00 02/20/18 09:07 Temperature 97.7 F Pulse Rate 89 94 H Respiratory Rate 20 Blood Pressure 138/83 Pulse Oximetry 100 97 02/20/18 10:35 02/20/18 10:50 02/20/18 12:00 Temperature 98.4 F 98.5 F Pulse Rate 93 H 93 H 96 H Respiratory Rate 18 20 Blood Pressure 131/81 120/77 Pulse Oximetry 93 L 91 L 02/20/18 16:00 Temperature 98.8 F Pulse Rate 86 Respiratory Rate 20 Blood Pressure 131/82 Pulse Oximetry 96 Intake & Output 02/19/18 02/20/18 02/20/18 18:59 06:59 18:59 Intake Total 1440 / 1440 630 / 630 1256 / 1256 Output Total 2525 / 2525 1175 / 1175 900 / 900 Balance -1085 / -1085 -545 / -545 356 / 356 Weight 93.6 kg 93.8 kg Intake: IV 150 / 150 56 / 56 Kytril Inj 1 MG Decadron Inj 20 56 / 56 MG In NS Inj 50 ML @ 224 mls/ hr IV.SIG ONCE ONE Rx#:[id number] Levaquin 750 mg Premix Inj 150 150 / 150 ML @ 100 mls/hr IV.SIG Q24H [facility] Rx#:[id number] Oral 1440 / 1440 480 / 480 1200 / 1200 Output: Urine 2525 / 2525 1175 / 1175 900 / 900 Other: Date of Last Bowel Movement 02/18/18 02/19/18 Narrative: GENERAL: AAOx3, no acute distress, obese SKIN: Warm and dry. No rashes HEAD: Atruamtic, normocephalic. EYES: No scleral icterus. No injection or drainage. ENT: Moist mucous membranes, patent nares, no erythema of oropharynx. NECK: Supple, trachea midline. No JVD or lymphadenopathy. Normal thyroid. CARDIOVASCULAR: Regular rate and rhythm. No murmurs, gallops, or rubs. RESPIRATORY: Breath sounds have returned to right base, minimal atelectasis, left lung baptiste are clear. GASTROINTESTINAL: Abdomen soft, non-tender, nondistended, normal active bowel sounds MUSCULOSKELETAL: No cyanosis, or edema. NEURO: CN II-XII grossly intact, no focal deficits, no slurring of speech Results - Labs CBC & Chem 7: 02/20/18 07:15 02/20/18 07:15 Laboratory Results - last 24 hr 02/20/18 02/20/18 02/20/18 00:58 07:15 07:15 WBC 8.2 RBC 2.69 L Hgb 8.3 L Hct 25.3 L MCV 94.3 MCH 30.9 MCHC 32.8 RDW 17.7 H Plt Count 233 MPV 9.1 Sodium 143 Potassium 3.4 L Chloride 107 Carbon Dioxide 24.3 Anion Gap 12 BUN 26 H Creatinine 0.78 Estimated GFR Greater than 89 POC Glucose 190 H Random Glucose 151 H Calcium 8.8 02/20/18 02/20/18 02/20/18 12:54 12:56 16:06 WBC RBC Hgb Hct MCV MCH MCHC RDW Plt Count MPV Sodium Potassium Chloride Carbon Dioxide Anion Gap BUN Creatinine Estimated GFR POC Glucose 435 H 398 H 255 H Random Glucose Calcium - Imaging Impressions Chest X-Ray 02/20/18 00:00 CONCLUSION: Negative for pneumothorax Thoracentesis Ultrasound 02/20/18 00:00 CONCLUSION: 1. Uncomplicated right-sided thoracentesis. Assessment and Plan - Assessment (1) Pleural effusion, right Code(s): J90 - Pleural effusion, not elsewhere classified Status: Acute (2) COPD (chronic obstructive pulmonary disease) Code(s): J44.9 - Chronic obstructive pulmonary disease, unspecified Status: Acute (3) Lung cancer Code(s): C34.90 - Malignant neoplasm of unspecified part of unspecified bronchus or lung Status: Acute (4) Alcohol abuse Code(s): F10.10 - Alcohol abuse, uncomplicated Status: Acute - Plan Pleural effusion Right side, recurrent, previously removed 1100 cc via thoracentesis. Underwent another thoracentesis on 02/20/2018, clearance of lung sounds on exam Continue to monitor oxygen levels and continue telemetry Appreciate oncology consult Appreciate pulmonology consult Lung cancer Recent diagnosis of squamous cell lung cancer Patient is following with Dr. Kovacs for radiation and chemo treatment, both treatments active on 02/20/2018 Appreciate oncology consult COPD exacerbation Breath sounds greatly improved today following thoracentesis Continue supplemental oxygen as needed, continue pulse oximetry and telemetry Alcoholism Patient drinks 8 beers per day Continue CIWA protocol and seizure precautions Continue thiamine, folate, multivitamin for replacement DVT prophylaxis SCDs tonight, start Lovenox tomorrow
--- NOTE | 2018-02-20 18:34 | P.PNPL ---
Subjective Interval history: 62 YOWM with COPD, Sq cell lung ca Had Rt TC, 600 cc fluid removed breathing better Had XRT Receiving chemo Physical Exam Vital signs: Vital Signs 02/19/18 20:00 02/19/18 20:14 02/20/18 00:00 Temperature 97.6 F 97.7 F Pulse Rate 103 H 96 H 88 Respiratory Rate 20 18 Blood Pressure 136/83 133/75 Pulse Oximetry 97 96 02/20/18 00:12 02/20/18 04:00 02/20/18 04:12 Temperature 97.6 F Pulse Rate 87 91 H 90 Respiratory Rate 22 Blood Pressure 131/92 H Pulse Oximetry 98 02/20/18 07:51 02/20/18 08:00 02/20/18 09:07 Temperature 97.7 F Pulse Rate 89 94 H Respiratory Rate 20 Blood Pressure 138/83 Pulse Oximetry 100 97 02/20/18 10:35 02/20/18 10:50 02/20/18 12:00 Temperature 98.4 F 98.5 F Pulse Rate 93 H 93 H 96 H Respiratory Rate 18 20 Blood Pressure 131/81 120/77 Pulse Oximetry 93 L 91 L 02/20/18 16:00 Temperature 98.8 F Pulse Rate 86 Respiratory Rate 20 Blood Pressure 131/82 Pulse Oximetry 96 Intake & Output 02/19/18 02/20/18 02/20/18 18:59 06:59 18:59 Intake Total 1440 / 1440 630 / 630 1256 / 1256 Output Total 2525 / 2525 1175 / 1175 900 / 900 Balance -1085 / -1085 -545 / -545 356 / 356 Weight 93.6 kg 93.8 kg Intake: IV 150 / 150 56 / 56 Kytril Inj 1 MG Decadron Inj 20 56 / 56 MG In NS Inj 50 ML @ 224 mls/ hr IV.SIG ONCE ONE Rx#:[id number] Levaquin 750 mg Premix Inj 150 150 / 150 ML @ 100 mls/hr IV.SIG Q24H [facility] Rx#:[id number] Oral 1440 / 1440 480 / 480 1200 / 1200 Output: Urine 2525 / 2525 1175 / 1175 900 / 900 Other: Date of Last Bowel Movement 02/18/18 02/19/18 GENERAL: WBWN WM, NAD SKIN: Warm and dry. HEAD: Normocephalic. EYES: No scleral icterus. No injection or drainage. NECK: Supple, trachea midline. No JVD or lymphadenopathy. CARDIOVASCULAR: Regular rate and rhythm without murmurs, gallops, or rubs. RESPIRATORY: Breath sounds equal bilaterally. No accessory muscle use. GASTROINTESTINAL: Abdomen soft, non-tender, nondistended. MUSCULOSKELETAL: No cyanosis, or edema. BACK: Nontender without obvious deformity. No CVA tenderness. Assessment and Plan - Plan IMPRESSION: 1. Chronic obstructive pulmonary disease. 2. Squamous cell carcinoma of the lung. He is on chemotherapy and radiation treatment. 3. Nicotine use. 4. Pleural effusion. 5. The patient is homeless. PLAN: Chemo and radiation Aerosol nebs Supplement [address] eff, will need pleurodesis
[2018-02-21] MEDS: MethylPREDNISolone Sod Succinate Inj 40 MG/ML Vial IV.PUSH SCH ×5 (00:31→23:20)
[2018-02-21] MEDS: Budesonide-Formoterol 160/4.5 MCG 6 GM Inhaler INH SCH ×2 (09:16→20:47)
[2018-02-21] MEDS: Senna/Docusate Sodium 8.6/50 MG Tablet PO SCH ×2 (09:16→20:47)
[2018-02-21] MEDS: Multivitamin/Minerals Therapeutic Tablet PO SCH (09:16)
[2018-02-21] MEDS: guaiFENesin 600 MG ER Tablet PO SCH ×2 (09:16→20:46)
[2018-02-21] MEDS: Folic Acid 1 MG Tablet PO SCH (09:20)
--- NOTE | 2018-02-21 11:32 | P.PNPL ---
Subjective Interval history: 62 YOWM with COPD, Sq cell lung ca Had Rt TC, 600 cc fluid removed breathing better Had Chemo and XRT yesterday Physical Exam Vital signs: Vital Signs 02/20/18 12:00 02/20/18 16:00 02/20/18 20:15 Temperature 98.8 F 98.4 F Pulse Rate 96 H 87 83 Respiratory Rate 20 19 Blood Pressure 131/82 134/78 Pulse Oximetry 96 96 02/21/18 00:00 02/21/18 02:10 02/21/18 04:00 Temperature 98.1 F Pulse Rate 88 80 Respiratory Rate 18 Blood Pressure 141/76 H Pulse Oximetry 97 96 02/21/18 04:10 02/21/18 07:00 02/21/18 08:00 Temperature 98.3 F 98.8 F Pulse Rate 82 82 102 H Respiratory Rate 18 18 Blood Pressure 118/69 110/82 Pulse Oximetry 96 98 02/21/18 11:02 Temperature Pulse Rate Respiratory Rate Blood Pressure Pulse Oximetry 94 L Intake & Output 02/20/18 02/21/18 02/21/18 18:59 06:59 18:59 Intake Total 2423 / 2423 1125 / 1125 Output Total 2800 / 2800 1650 / 1650 Balance -377 / -377 -525 / -525 Weight 93.8 kg 94.2 kg Intake: IV 323 / 323 445 / 445 Paraplatin Inj 300 MG In NS Inj 280 / 280 250 ML @ 560 mls/hr IV.SIG ONCE ONE Rx#:[id number] Kytril Inj 1 MG Decadron Inj 20 56 / 56 MG In NS Inj 50 ML @ 224 mls/ hr IV.SIG ONCE ONE Rx#:[id number] Levaquin 750 mg Premix Inj 150 150 / 150 ML @ 100 mls/hr IV.SIG Q24H [facility] Rx#:[id number] Taxol Inj 100 MG In NS Inj 250 267 / 267 ML @ 133.333 mls/hr IV.SIG ONCE ONE Rx#:[id number] NS Inj 250 ML @ KVO IV.SIG ONCE ONE Rx#:[id number] Oral 2100 / 2100 680 / 680 Output: Urine 2800 / 2800 1650 / 1650 Other: Date of Last Bowel Movement 02/19/18 02/20/18 02/20/18 GENERAL: WBWN NAD SKIN: Warm and dry. HEAD: Normocephalic. EYES: No scleral icterus. No injection or drainage. NECK: Supple, trachea midline. No JVD or lymphadenopathy. CARDIOVASCULAR: Regular rate and rhythm without murmurs, gallops, or rubs. RESPIRATORY: Breath sounds equal bilaterally. No accessory muscle use. GASTROINTESTINAL: Abdomen soft, non-tender, nondistended. MUSCULOSKELETAL: No cyanosis, or edema. BACK: Nontender without obvious deformity. No CVA tenderness. Assessment and Plan - Plan IMPRESSION: 1. Chronic obstructive pulmonary disease. 2. Squamous cell carcinoma of the lung. He is on chemotherapy and radiation treatment. 3. Nicotine use. 4. Pleural effusion. 5. The patient is homeless. PLAN: Chemo and radiation Aerosol nebs Supplement [address] eff, will need pleurodesis Ambulate.
--- NOTE | 2018-02-21 12:01 | P.PNIM ---
Subjective Interval history: 62-year-old male with squamous cell cancer of the right lung had thoracentesis performed yesterday and is now moving better, breathing better, off of oxygen. Lung sounds remain mostly clear in the right base and equal to his left base. He has no complaints and is optimistic about his treatment outcome for his lung cancer. Physical Exam Vital signs: Vital Signs 02/20/18 12:00 02/20/18 16:00 02/20/18 20:15 Temperature 98.8 F 98.4 F Pulse Rate 96 H 87 83 Respiratory Rate 20 19 Blood Pressure 131/82 134/78 Pulse Oximetry 96 96 02/21/18 00:00 02/21/18 02:10 02/21/18 04:00 Temperature 98.1 F Pulse Rate 88 80 Respiratory Rate 18 Blood Pressure 141/76 H Pulse Oximetry 97 96 02/21/18 04:10 02/21/18 07:00 02/21/18 08:00 Temperature 98.3 F 98.8 F Pulse Rate 82 82 102 H Respiratory Rate 18 18 Blood Pressure 118/69 110/82 Pulse Oximetry 96 98 02/21/18 11:02 Temperature Pulse Rate Respiratory Rate Blood Pressure Pulse Oximetry 94 L Intake & Output 02/20/18 02/21/18 02/21/18 18:59 06:59 18:59 Intake Total 2423 / 2423 1125 / 1125 Output Total 2800 / 2800 1650 / 1650 Balance -377 / -377 -525 / -525 Weight 93.8 kg 94.2 kg Intake: IV 323 / 323 445 / 445 Paraplatin Inj 300 MG In NS Inj 280 / 280 250 ML @ 560 mls/hr IV.SIG ONCE ONE Rx#:[id number] Kytril Inj 1 MG Decadron Inj 20 56 / 56 MG In NS Inj 50 ML @ 224 mls/ hr IV.SIG ONCE ONE Rx#:[id number] Levaquin 750 mg Premix Inj 150 150 / 150 ML @ 100 mls/hr IV.SIG Q24H [facility] Rx#:[id number] Taxol Inj 100 MG In NS Inj 250 267 / 267 ML @ 133.333 mls/hr IV.SIG ONCE ONE Rx#:[id number] NS Inj 250 ML @ KVO IV.SIG ONCE ONE Rx#:[id number] Oral 2100 / 2100 680 / 680 Output: Urine 2800 / 2800 1650 / 1650 Other: Date of Last Bowel Movement 02/19/18 02/20/18 02/20/18 Narrative: GENERAL: AAOx3, no acute distress SKIN: Warm and dry. No rashes. Gauze bandage over site of thoracentesis on the right mid back HEAD: Atruamtic, normocephalic. EYES: No scleral icterus. No injection or drainage. ENT: Moist mucous membranes, patent nares, no erythema of oropharynx. NECK: Supple, trachea midline. No JVD or lymphadenopathy. Normal thyroid. CARDIOVASCULAR: Regular rate and rhythm. No murmurs, gallops, or rubs. RESPIRATORY: Bilateral bases are mostly clear, scattered atelectasis, equal. No accessory muscle use. GASTROINTESTINAL: Abdomen soft, non-tender, nondistended, normal active bowel sounds MUSCULOSKELETAL: No cyanosis, trace edema to mid shins NEURO: CN II-XII grossly intact, no focal deficits, no slurring of speech Results - Labs CBC & Chem 7: 02/20/18 07:15 02/20/18 07:15 Laboratory Results - last 24 hr 02/20/18 02/20/18 02/20/18 12:54 12:56 16:06 POC Glucose 435 H 398 H 255 H 02/20/18 02/21/18 20:21 08:10 POC Glucose 210 H 175 H - Imaging Impressions Thoracentesis Ultrasound 02/20/18 00:00 CONCLUSION: 1. Uncomplicated right-sided thoracentesis. Assessment and Plan - Assessment (1) Pleural effusion, right Code(s): J90 - Pleural effusion, not elsewhere classified Status: Acute (2) COPD (chronic obstructive pulmonary disease) Code(s): J44.9 - Chronic obstructive pulmonary disease, unspecified Status: Acute (3) Lung cancer Code(s): C34.90 - Malignant neoplasm of unspecified part of unspecified bronchus or lung Status: Acute (4) Alcohol abuse Code(s): F10.10 - Alcohol abuse, uncomplicated Status: Acute - Plan Pleural effusion Right side, recurrent, previously removed 1100 cc via thoracentesis. Underwent another thoracentesis on 02/20/2018, 600 cc removed, lung exam remains clear Continue to monitor oxygen levels and continue telemetry Appreciate oncology consult Appreciate pulmonology consult Lung cancer Recent diagnosis of squamous cell lung cancer Patient is following with Dr. Kovacs for radiation and chemo treatment, both treatments active on 02/20/2018 Appreciate oncology consult COPD exacerbation Breath sounds greatly improved today following thoracentesis Patient has been off of oxygen for 2 days, ambulating comfortably Alcoholism Patient drinks 8 beers per day Continue CIWA protocol and seizure precautions Continue thiamine, folate, multivitamin for replacement DVT prophylaxis Lovenox
[2018-02-21] MEDS: Insulin NovoLIN Regular Correctional Sugar Inj SQ SCH ×3 (12:54→20:53)
[2018-02-21] MEDS: Enoxaparin Inj 40 MG/0.4 ML Syringe SQ SCH (15:32)
[2018-02-22] MEDS: MethylPREDNISolone Sod Succinate Inj 40 MG/ML Vial IV.PUSH SCH ×3 (05:28→23:54)
[2018-02-22 05:37] LABS: Hematocrit 27.2 % (39.0-51.0); Mean Corpuscular HGB Conc 33.2 % (32.0-36.0); Mean Corpuscular Hemoglobin 31.1 pg (27.0-34.0); Mean Corpuscular Volume 93.6 fL (80.0-100.0); Mean Platelet Volume 8.6 fL (7.0-11.0); Platelet Count 238 th/mm3 (150-450); Red Cell Distribution Width 17.9 % (11.6-17.2); White Blood Count 4.5 th/mm3 (4.0-11.0)
[2018-02-22 05:50] LABS: Anion Gap 9 meq/L (5-15); Blood Urea Nitrogen 25 mg/dL (7-18); Calcium 8.8 mg/dL (8.5-10.1); Carbon Dioxide 31.4 meq/L (21.0-32.0); Chloride 99 meq/L (98-107); Glomerular Filtration Rate Greater Than 89 mL/min (>89); Glucose,Random 139 mg/dL (74-106); Potassium 3.6 meq/L (3.5-5.1); Sodium 139 meq/L (136-145)
[2018-02-22] MEDS: guaiFENesin 600 MG ER Tablet PO SCH ×2 (09:50→21:32)
[2018-02-22] MEDS: Folic Acid 1 MG Tablet PO SCH (09:50)
[2018-02-22] MEDS: Multivitamin/Minerals Therapeutic Tablet PO SCH (09:50)
[2018-02-22] MEDS: Senna/Docusate Sodium 8.6/50 MG Tablet PO SCH ×2 (09:50→21:32)
[2018-02-22] MEDS: Budesonide-Formoterol 160/4.5 MCG 6 GM Inhaler INH SCH ×2 (09:54→21:33)
[2018-02-22] MEDS: Insulin NovoLIN Regular Correctional Sugar Inj SQ SCH ×4 (10:00→21:40)
[2018-02-22] MEDS: Enoxaparin Inj 40 MG/0.4 ML Syringe SQ SCH (14:00)
--- NOTE | 2018-02-22 17:39 | P.PNIM ---
Subjective Interval history: The patient was sitting up in a chair. He said he feels well. He denies any shortness of breath. He is off of oxygen. Discussed with nursing. Physical Exam Vital signs: Vital Signs 02/21/18 20:00 02/22/18 00:00 02/22/18 04:00 Temperature 98.2 F 98.1 F Pulse Rate 86 95 H 81 Respiratory Rate 19 19 Blood Pressure 135/83 138/70 Pulse Oximetry 95 98 02/22/18 04:41 02/22/18 08:00 02/22/18 12:00 Temperature 98.2 F 98.6 F Pulse Rate 91 H 86 87 Respiratory Rate 18 20 Blood Pressure 132/76 123/81 Pulse Oximetry 95 98 02/22/18 15:54 Temperature 98.3 F Pulse Rate 96 H Respiratory Rate 20 Blood Pressure 130/73 Pulse Oximetry 99 Intake & Output 02/21/18 02/22/18 02/22/18 18:59 06:59 18:59 Intake Total 720 / 720 390 / 390 Output Total 700 / 700 2300 / 2300 Balance -1909 / -1909 Weight 94 kg Intake: IV 150 / 150 Levaquin 750 mg Premix Inj 150 150 / 150 ML @ 100 mls/hr IV.SIG Q24H [facility] Rx#:[id number] Oral 720 / 720 240 / 240 Output: Urine 700 / 700 2300 / 2300 Other: Date of Last Bowel Movement 02/20/18 02/21/18 Narrative: GENERAL: No acute distress SKIN: Warm and dry. No rashes. Gauze bandage over site of thoracentesis on the right mid back HEAD: Normocephalic. EYES: No scleral icterus. No injection or drainage. ENT: Moist mucous membranes, patent nares, no erythema of oropharynx. NECK: Supple, trachea midline. No JVD or lymphadenopathy. Normal thyroid. CARDIOVASCULAR: Regular rate and rhythm. No murmurs, gallops, or rubs. RESPIRATORY: Bilateral bases are mostly clear, scattered atelectasis, equal. No accessory muscle use. GASTROINTESTINAL: Abdomen soft, non-tender, nondistended, normal active bowel sounds MUSCULOSKELETAL: No cyanosis, trace edema to mid shins NEURO: CN II-XII grossly intact, no focal deficits, no slurring of speech Results - Labs CBC & Chem 7: 02/22/18 03:37 10/03/18 03:37 Laboratory Results - last 24 hr 02/21/18 02/22/18 02/22/18 20:38 03:37 03:37 WBC 4.5 RBC 2.90 L Hgb 9.0 L Hct 27.2 L MCV 93.6 MCH 31.1 MCHC 33.2 RDW 17.9 H Plt Count 238 MPV 8.6 Sodium 139 Potassium 3.6 Chloride 99 D Carbon Dioxide 31.4 Anion Gap 9 BUN 25 H Creatinine 0.77 Estimated GFR Greater than 89 POC Glucose 240 H Random Glucose 139 H Calcium 8.8 02/22/18 02/22/18 02/22/18 07:01 11:14 17:08 WBC RBC Hgb Hct MCV MCH MCHC RDW Plt Count MPV Sodium Potassium Chloride Carbon Dioxide Anion Gap BUN Creatinine Estimated GFR POC Glucose 192 H 355 H 154 H Random Glucose Calcium Assessment and Plan - Assessment (1) Pleural effusion, right Code(s): J90 - Pleural effusion, not elsewhere classified Status: Acute (2) COPD (chronic obstructive pulmonary disease) Code(s): J44.9 - Chronic obstructive pulmonary disease, unspecified Status: Acute (3) Lung cancer Code(s): C34.90 - Malignant neoplasm of unspecified part of unspecified bronchus or lung Status: Acute (4) Alcohol abuse Code(s): F10.10 - Alcohol abuse, uncomplicated Status: Acute - Plan Pleural effusion Right side, recurrent, previously removed 1100 cc via thoracentesis. Underwent another thoracentesis on 02/20/2018, 600 cc removed, lung exam remains clear Continue to monitor oxygen levels and continue telemetry Appreciate oncology consult Appreciate pulmonology consult -monitor for recurrence. Lung cancer Recent diagnosis of squamous cell lung cancer Patient is following with Dr. Kovacs for radiation and chemo treatment, both treatments active on 02/20/2018 Appreciate oncology consult COPD exacerbation Breath sounds greatly improved today following thoracentesis Patient has been off of oxygen Alcoholism Patient drinks 8 beers per day Continue CIWA protocol and seizure precautions Continue thiamine, folate, multivitamin for replacement -cessation instruction DVT prophylaxis Lovenox Discharge Planning: Await pulmonology clearance
--- NOTE | 2018-02-22 17:55 | P.PNPL ---
Subjective Interval history: 62 YOWM with COPD, Sq cell lung ca had XRT Breathing better On RA Physical Exam Vital signs: Vital Signs 02/21/18 20:00 02/22/18 00:00 02/22/18 04:00 Temperature 98.2 F 98.1 F Pulse Rate 86 95 H 81 Respiratory Rate 19 19 Blood Pressure 135/83 138/70 Pulse Oximetry 95 98 02/22/18 04:41 02/22/18 08:00 02/22/18 12:00 Temperature 98.2 F 98.6 F Pulse Rate 91 H 86 87 Respiratory Rate 18 20 Blood Pressure 132/76 123/81 Pulse Oximetry 95 98 02/22/18 15:54 Temperature 98.3 F Pulse Rate 96 H Respiratory Rate 20 Blood Pressure 130/73 Pulse Oximetry 99 Intake & Output 02/21/18 02/22/18 02/22/18 18:59 06:59 18:59 Intake Total 720 / 720 390 / 390 Output Total 700 / 700 2300 / 2300 Balance -1909 / -1909 Weight 94 kg Intake: IV 150 / 150 Levaquin 750 mg Premix Inj 150 150 / 150 ML @ 100 mls/hr IV.SIG Q24H [facility] Rx#:[id number] Oral 720 / 720 240 / 240 Output: Urine 700 / 700 2300 / 2300 Other: Date of Last Bowel Movement 02/20/18 02/21/18 GENERAL: WBWN NAD SKIN: Warm and dry. HEAD: Normocephalic. EYES: No scleral icterus. No injection or drainage. NECK: Supple, trachea midline. No JVD or lymphadenopathy. CARDIOVASCULAR: Regular rate and rhythm without murmurs, gallops, or rubs. RESPIRATORY: Breath sounds equal bilaterally. No accessory muscle use. GASTROINTESTINAL: Abdomen soft, non-tender, nondistended. MUSCULOSKELETAL: No cyanosis, or edema. BACK: Nontender without obvious deformity. No CVA tenderness. Assessment and Plan - Plan IMPRESSION: 1. Chronic obstructive pulmonary disease. 2. Squamous cell carcinoma of the lung. He is on chemotherapy and radiation treatment. 3. Nicotine use. 4. Pleural effusion. 5. The patient is homeless. PLAN: Chemo and radiation Aerosol nebs If recurrent pl eff, will need pleurodesis Ambulate. Stable on RA
[2018-02-23] MEDS: MethylPREDNISolone Sod Succinate Inj 40 MG/ML Vial IV.PUSH SCH ×3 (01:34→12:21)
--- NOTE | 2018-02-23 08:03 | P.PNONC ---
Subjective Interval history: Mr. Garcia is seen and examined, vital signs, labs, medications, pathology, chemotherapy administration, territory sales consultant notes all reviewed. Subjectively; patient reports having a cough producing scant phlegm. He denies having had difficulty tolerating chemotherapy earlier this week, this was a second dose. He is receiving daily radiation treatments which she is also tolerating well. The patient tells me he has been eating well, he is been ambulating in the hallways and has been moving his bowels without difficulty. He denies fevers or chills, worsening shortness of breath or chest pain. Cytology of pleural fluid aspiration from earlier this week was reviewed, fluid was negative for malignant cells. Objective Vital Signs/Intake & Output: Vital Signs 02/22/18 08:00 02/22/18 12:00 02/22/18 15:54 Temperature 98.6 F 98.3 F Pulse Rate 86 87 96 H Respiratory Rate 20 20 Blood Pressure 123/81 130/73 Pulse Oximetry 98 99 02/22/18 16:00 02/22/18 20:00 02/23/18 00:00 Temperature 97.9 F 97.4 F L Pulse Rate 105 H 94 H 84 Respiratory Rate 20 20 Blood Pressure 126/81 129/79 Pulse Oximetry 98 98 02/23/18 04:00 02/23/18 07:00 Temperature 98.3 F Pulse Rate 85 86 Respiratory Rate 20 Blood Pressure 130/67 Pulse Oximetry 98 Intake & Output 02/22/18 02/23/18 02/23/18 18:59 06:59 18:59 Intake Total 870 / 870 Output Total 2310 / 2310 Balance -1440 / -1440 Weight 94.3 kg Intake: IV 150 / 150 Levaquin 750 mg Premix Inj 150 150 / 150 ML @ 100 mls/hr IV.SIG Q24H [facility] Rx#:[id number] Oral 720 / 720 Output: Urine 2310 / 2310 Result Diagrams: 02/22/18 03:37 02/22/18 03:37 Laboratory Results: Laboratory Results - last 24 hr 02/22/18 02/22/18 02/22/18 11:14 17:08 20:20 POC Glucose 355 H 154 H 220 H Medications: Active Medications Generic Name Dose Route Start Last Admin Trade Name Freq PRN Reason Stop Dose Admin Budesonide/Formoterol Fumarate 2 puff 02/19/18 09:00 02/22/18 21:33 Symbicort 160/4.5 Mcg Inh INH 2 puff BID IAN Administration Enoxaparin Sodium 40 mg 02/21/18 14:00 02/22/18 14:00 Lovenox Inj SQ 40 mg Q24H IAN Administration Folic Acid 1 mg 02/19/18 09:00 02/22/18 09:50 Folic Acid PO 02/24/18 08:59 1 mg DAILY IAN Administration Furosemide 20 mg 02/19/18 09:00 02/22/18 09:54 Lasix Inj IV.PUSH 20 mg BID@0900,1800 IAN Administration Guaifenesin 600 mg 02/19/18 09:00 02/22/18 21:32 Mucinex Er PO 600 mg BID IAN Administration Levofloxacin/Dextrose 150 mls @ 100 mls/hr 02/18/18 23:00 02/23/18 01:30 Levaquin 750 Mg Premix Inj IV.SIG Infused Q24H [facility] Infusion Insulin Human Regular 0 units 02/20/18 17:00 02/22/18 21:40 Novolin R Correctional Sugar Inj SQ 3 units ACHS IAN Administration Protocol Methylprednisolone Sodium Succinate 40 mg 02/19/18 00:00 02/23/18 05:16 Solumedrol Inj IV.PUSH 40 mg Q6H IAN Administration Multivitamins/Minerals 1 tab 02/19/18 09:00 02/22/18 09:50 Theragran-M PO 02/24/18 08:59 1 tab DAILY IAN Administration Pantoprazole Sodium 40 mg 02/19/18 21:00 02/22/18 21:32 Protonix PO 40 mg HS IAN Administration Senna/Docusate Sodium 1 tab 02/19/18 09:00 02/22/18 21:32 Whit-Colace PO 1 tab BID IAN Administration Tamsulosin HCl 0.4 mg 02/19/18 09:00 02/22/18 09:50 Flomax PO 0.4 mg DAILY IAN Administration Thiamine HCl 100 mg 02/19/18 09:00 02/22/18 09:50 Vitamin B1 PO 100 mg DAILY IAN Administration Torsemide 10 mg 02/19/18 09:00 02/22/18 09:54 Demadex PO 10 mg BID@0900,1800 IAN Administration Objective Remarks: GENERAL: Middle-aged man, tall, heavyset, disheveled not acutely distressed. SKIN: Warm and dry. HEAD: Normocephalic. EYES: No scleral icterus. No injection or drainage. NECK: Supple, trachea midline. No JVD or lymphadenopathy. LYMPHATIC: No adenopathy. CARDIOVASCULAR: Regular rate and rhythm without murmurs. RESPIRATORY: Improved breath sounds over the right base, scattered crepitus and rhonchi prolonged expiratory phase. GASTROINTESTINAL: Obese belly, soft, nontender no palpable organ enlargement, positive bowel sounds. EXTREMITIES: No cyanosis, or edema. MUSCULOSKELETAL: Adequate muscle tone. NEUROLOGICAL: No obvious focal deficit. Awake, alert, and oriented x3. PSYCHIATRIC: Appropriate mood and affect; insight and judgment normal. Assessment/Plan - Plan Mr. Garcia is a 62-year-old man with a diagnosis of a squamous cell carcinoma of the right lung, he had pathologic stage T1cN2 M0/Mx disease. Was initiated on combined modality chemoradiotherapy after undergoing attempted surgical resection in December 2017. Patient has had repeated hospitalizations over the past month and a half primarily for difficulty breathing and lack of social support. He was discharged from the hospital late last week and was rehospitalized over the weekend for shortness of breath. CT thorax reveals a reaccumulated right-sided pleural effusion which is moderate in size. He underwent A thoracentesis about a week and a half ago which revealed no evidence of malignant cells on cytologic review. Recommendations: 1. Squamous cell carcinoma of the right lung: Continue combined modality chemoradiotherapy with weekly Carboplatin and Taxol. He is in his second week of treatment. He has thus far received 7 fractions of radiation, today will be his eighth fraction. I do not anticipate this gentleman being discharged given his repeated discharges and re-hospitalizations (usually within 24 hours of discharge). I therefore plan to treat him with carboplatin and Taxol on 02/27/2018 which will be his weekly dosing. 2. Right-sided pleural effusion: He underwent therapeutic/diagnostic thoracentesis earlier this week, cytology was negative for malignant cells. Inflammatory changes were noted. Pulmonology note reviewed, showed pleural fluid reaccumulate he will require chest tube placement with pleurodesis.
[2018-02-23 08:15] VITALS: RESP 16
[2018-02-23] MEDS ORDERED: Sodium Chloride 0.9% 2 ML Flush PRN IV.FLUSH (08:22)
[2018-02-23] MEDS: Budesonide-Formoterol 160/4.5 MCG 6 GM Inhaler INH SCH (08:46)
[2018-02-23] MEDS: Insulin NovoLIN Regular Correctional Sugar Inj SQ SCH ×2 (08:47→12:20)
[2018-02-23] MEDS: Folic Acid 1 MG Tablet PO SCH (08:47)
[2018-02-23] MEDS: Senna/Docusate Sodium 8.6/50 MG Tablet PO SCH (08:48)
[2018-02-23] MEDS: guaiFENesin 600 MG ER Tablet PO SCH (08:48)
[2018-02-23] MEDS: Multivitamin/Minerals Therapeutic Tablet PO SCH (08:48)
[2018-02-23] MEDS ORDERED: Insulin Detemir Inj 1,000 UNIT/10 ML Vial SQ SCH (09:00)
[2018-02-23] MEDS ORDERED: Sodium Chloride 0.9% 2 ML Flush BID IV.FLUSH SCH (09:00)
[2018-02-23] MEDS: Enoxaparin Inj 40 MG/0.4 ML Syringe SQ SCH (14:32)
--- NOTE | 2018-02-23 15:16 | P.DS ---
Date of admission: 02/18/18 21:32 Primary care physician: Emi Stone Anticipated date of discharge: 02/23/18 Brief History from admission: This is a 62-year-old Homeless male with a PMH of COPD, Squamous Cell Lung CA, PAD and Alcohol Abuse who presented to the ER w/ c/o SOB and wheezing starting today. Multiple recent admissions, admitted 12/06-12/10/17 for left foot pain and RUL obstruction, s/p Bronchoscopy 12/08/17, concerning for malignancy and eventually underwent LLE vascularization per report on 12/26/17. Re-admitted 01/04 -02/09/18 for c/o SOB, s/p RUL Lobectomy by Dr. Serrano on 01/04/18, pathology + squamous cell carcinoma, s/p eval by Dr. Kovacs, has been undergoing Radiation and Chemotherapy to continue until end of February, was d/c'd to a Mot at that time until chemotherapy completed. Admitted again 02/09-02/16/18 for c/o SOB, found to have large right pleural effusion, s/p thoracentesis 02/10/18 w/ removal of 1100cc and treated for COPD exacerbation. States he returned to the Mot after this last discharge and had been doing well so today he decided to take a walk. States he walked [address] and on his way back to the [facility] developed severe SOB. Denies chest pain, cough or fever. Does note + wheezing. On arrival, BP 135/67, HR 133, O2 sat 95% on RA, Afebrile. CBC essentially unremarkable. INR 1.0. Chemistry unremarkable. Troponin negative. CXR with persistent unchanged infiltrates right lower lung. CTA Chest negative for PE, slight reduction in size of right pleural effusion, stable appearance to right upper lobectomy. Patient update on day of discharge: The patient was feeling well. He had no acute complaints. Discussed with nursing and case management. DS: Diagnosis - Discharge Diagnosis (1) Pleural effusion, right Status: Acute (2) COPD (chronic obstructive pulmonary disease) Status: Acute (3) Lung cancer Status: Acute (4) Alcohol abuse Status: Acute DS: Medications - Discharge Medications Prescriptions: prednisone 10 mg PO DAILY #20 tab DS: Summary Hospital Course: Pleural effusion Right side, recurrent, previously removed 1100 cc via thoracentesis. Pulmonology was consulted. Underwent another thoracentesis on 02/20/2018, 600 cc removed, lung exam remained clear following. Cytology was negative for malignant cells. He will continue torsemide and will follow with oncology as an outpt. Lung cancer Recent diagnosis of squamous cell lung cancer. Patient is following with Dr. Kovacs for radiation and chemo treatment. He will follow up with oncology as scheduled. COPD exacerbation Breath sounds greatly improved following thoracentesis. Patient will complete a prednisone taper and will follow up with pulmonology. Alcoholism Patient drinks 8 beers per day. We continued CIWA protocol with seizure precautions. We also continued thiamine, folate and a multivitamin. He received cessation instruction. - Time Spent with Patient Total time spent providing and/or coordinating discharge services: Greater than 30 minutes - Quality: VTE Deep Vein Thrombosis/Pulmonary Embolism Present on Admission: Yes Exam Vital signs: Vital Signs 02/22/18 15:54 02/22/18 16:00 02/22/18 20:00 Temperature 98.3 F 97.9 F Pulse Rate 96 H 105 H 94 H Respiratory Rate 20 20 Blood Pressure 130/73 126/81 Pulse Oximetry 99 98 02/23/18 00:00 02/23/18 04:00 02/23/18 07:00 Temperature 97.4 F L 98.3 F Pulse Rate 84 85 86 Respiratory Rate 20 20 Blood Pressure 129/79 130/67 Pulse Oximetry 98 98 02/23/18 08:10 02/23/18 11:00 02/23/18 12:07 Temperature 98.4 F 98.4 F Pulse Rate 95 H 114 H 105 H Respiratory Rate 16 16 Blood Pressure 131/86 117/70 Pulse Oximetry 95 97 Intake & Output 02/22/18 02/23/18 02/23/18 18:59 06:59 18:59 Intake Total 870 / 870 Output Total 2310 / 2310 Balance -1440 / -1440 Weight 94.3 kg Intake: IV 150 / 150 Levaquin 750 mg Premix Inj 150 150 / 150 ML @ 100 mls/hr IV.SIG Q24H [facility] Rx#:[id number] Oral 720 / 720 Output: Urine 2310 / 2310 Narrative: GENERAL: No acute distress SKIN: Warm and dry. No rashes. Gauze bandage over site of thoracentesis on the right mid back HEAD: Normocephalic. EYES: No scleral icterus. No injection or drainage. ENT: Moist mucous membranes, patent nares, no erythema of oropharynx. NECK: Supple, trachea midline. No JVD or lymphadenopathy. Normal thyroid. CARDIOVASCULAR: Regular rate and rhythm. No murmurs, gallops, or rubs. RESPIRATORY: Bilateral bases are mostly clear, scattered atelectasis, equal. No accessory muscle use. GASTROINTESTINAL: Abdomen soft, non-tender, nondistended, normal active bowel sounds MUSCULOSKELETAL: No cyanosis, trace edema to mid shins NEURO: CN II-XII grossly intact, no focal deficits, no slurring of speech Results Procedures completed during hospitalization: Thoracentesis Labs on day of discharge: Labs from last 24 hours 02/23/18 02/23/18 02/22/18 12:16 08:17 20:20 POC Glucose 285 H 158 H 220 H 02/22/18 17:08 POC Glucose 154 H - Impressions ITS Impressions Chest CTA 02/18/18 16:09 CONCLUSION: 1. The study is negative for pulmonary embolism. 2. Slight reduction size of right pleural effusion. Stable appearance to the right upper lobectomy site. Chest X-Ray 02/20/18 00:00 CONCLUSION: Negative for pneumothorax Thoracentesis Ultrasound 02/20/18 00:00 CONCLUSION: 1. Uncomplicated right-sided thoracentesis. Discharge Plan - Discharge Disposition Patient Disposition: Discharge Home - Discharge Condition Condition: Stable - Discharge Order Discharge Orders: Discharge Order (Routine); Ordered 02/23/18 Ordered By: Deandre Terrazas - Discharge Details Anticipated Discharge Date: 02/23/18 - Physicians Team Primary Care Provider: Emi Stone Attending Provider: Deandre Terrazas Other Providers: Isaias Miranda MD ; Franklin Kovacs MD
[2018-02-23 15:32] VITALS: BP 128/71; PULSE 106; TEMP 99.3; O2SAT 98
--- NOTE | 2018-02-23 16:33 | P.PNPL ---
Subjective Interval history: 62 YOWM with COPD, Sq cell lung ca had XRT Breathing better On RA No new complaint Physical Exam Vital signs: Vital Signs 02/22/18 20:00 02/23/18 00:00 02/23/18 04:00 Temperature 97.9 F 97.4 F L 98.3 F Pulse Rate 94 H 84 85 Respiratory Rate 20 20 20 Blood Pressure 126/81 129/79 130/67 Pulse Oximetry 98 98 98 02/23/18 07:00 02/23/18 08:10 02/23/18 11:00 Temperature 98.4 F Pulse Rate 86 95 H 114 H Respiratory Rate 16 Blood Pressure 131/86 Pulse Oximetry 95 02/23/18 12:07 02/23/18 15:28 02/23/18 15:29 Temperature 98.4 F 99.3 F Pulse Rate 105 H 111 H 106 H Respiratory Rate 16 16 Blood Pressure 117/70 128/71 Pulse Oximetry 97 98 Intake & Output 02/22/18 02/23/18 02/23/18 18:59 06:59 18:59 Intake Total 870 / 870 Output Total 2310 / 2310 Balance -1440 / -1440 Weight 94.3 kg Intake: IV 150 / 150 Levaquin 750 mg Premix Inj 150 150 / 150 ML @ 100 mls/hr IV.SIG Q24H [facility] Rx#:[id number] Oral 720 / 720 Output: Urine 2310 / 2310 GENERAL: WBWn NAD SKIN: Warm and dry. HEAD: Normocephalic. EYES: No scleral icterus. No injection or drainage. NECK: Supple, trachea midline. No JVD or lymphadenopathy. CARDIOVASCULAR: Regular rate and rhythm without murmurs, gallops, or rubs. RESPIRATORY: Breath sounds equal bilaterally. No accessory muscle use. GASTROINTESTINAL: Abdomen soft, non-tender, nondistended. MUSCULOSKELETAL: No cyanosis, or edema. BACK: Nontender without obvious deformity. No CVA tenderness. Assessment and Plan - Plan IMPRESSION: 1. Chronic obstructive pulmonary disease. 2. Squamous cell carcinoma of the lung. He is on chemotherapy and radiation treatment. 3. Nicotine use. 4. Pleural effusion. 5. The patient is homeless. PLAN: Chemo and radiation Aerosol nebs If recurrent pl eff, will need pleurodesis Ambulate. Stable on RA DC plans for home/ Hotel.
== END 2018-02-23 16:00 | disposition home or self-care (01) ==
LOC: NEDA 15:54 → NEPE 15:54 → NEPHCDU 22:48 → HCIN 02-19 01:15
PROVIDERS: ADMIT Hospitalist; ATTEND Hospitalist
DX: F10.20 Alcohol dependence, uncomplicated; J96.20 Acute and chronic respiratory failure, unspecified whether with hypoxia or hypercapnia; J44.1 Chronic obstructive pulmonary disease with (acute) exacerbation; E78.5 Hyperlipidemia, unspecified; C34.11 Malignant neoplasm of upper lobe, right bronchus or lung; J90 Pleural effusion, not elsewhere classified; Z79.82 Long term (current) use of aspirin; Z59.0 Homelessness; F17.210 Nicotine dependence, cigarettes, uncomplicated; Z79.02 Long term (current) use of antithrombotics/antiplatelets; I10 Essential (primary) hypertension; C34.91 Malignant neoplasm of unspecified part of right bronchus or lung

== ENCOUNTER 2018-03-15 13:40 | Inpatient (IN) ==
[2018-03-15] MEDS ORDERED: MethylPREDNISolone Sod Succinate Inj 125 MG/2 ML Vial IV.PUSH ONE (14:42)
[2018-03-15] MEDS ORDERED: HYDROmorphone PF Inj 2 MG/ML Vial IV.PUSH ONE (15:16)
--- NOTE | 2018-03-15 15:24 | ED ---
HPI General Chief complaint: Back Pain/Injury Stated complaint: Back Pain Time Seen by Provider: 03/15/18 14:27 Source: patient Mode of arrival: ambulatory Limitations: no limitations History of Present Illness HPI narrative: 62-year-old male with a history of lung cancer presents to emergency department at the request of his oncologist, Dr. Kovacs for evaluation of severe low back pain, shortness of breath, and right lower extremity swelling. He states Tuesday he started having severe lower back pain and points to his lumbar region. He says most of his pain is to the right of the midline and is worse with movement and palpation. He states that his right foot (toes) feel "numb and tingling". He states this is intermittent. He says pain is 10/ 10 in severity. Denies fevers, loss of bowel or bladder function, saddle anesthesia, IV drug use, direct trauma. He states that the swelling of his right lower extremity shortness of breath occurred at the same time as the RLE edema and pain. He says his right lower extremity painful palpation. Says he had a stent placed in December by Dr. Locke and has had "blockages" in his also upper right leg as well. His oncologist is Dr. Kovacs, rock room worker Dr. Miranda, [facility] vascular specialist as Dr. Locke. Patient denies history of cardiac complaints. Says he stopped smoking cigarettes approximately 2 weeks ago. Onset (ago): week(s) (1) Location: back and lower extremity Radiation: non-radiation Severity: severe Quality: aching Pain Consistency: constant Relieving factors: immobilization Exacerbating factors: movement Associated symptoms: Reports cough and shortness of breath; Denies chest pain, fever/chills and nausea/vomiting Treatments prior to arrival: Reports other (morphine 15mg) Related Data Home Medications Medication Instructions Recorded Confirmed albuterol sulfate [Proventil HFA] 2 puff INHALATION BID 03/08/18 03/15/18 albuterol sulfate [Ventolin HFA] 2 puff INHALATION Q4-6H PRN 03/08/18 03/15/18 budesonide-formoterol [Symbicort] 2 puff INHALATION BID 03/08/18 03/15/18 hydrocodone-acetaminophen [[place]] 1 tab PO Q4-6H PRN 03/08/18 03/15/18 prednisone 10 mg PO DIRECTED 03/08/18 03/15/18 ibuprofen 800 mg PO TID 03/15/18 03/15/18 lorazepam 1 mg PO BID 03/15/18 03/15/18 Previous Rx's Medication Instructions Recorded clopidogrel [Plavix] 75 mg PO DAILY #90 tab 02/08/18 pantoprazole 40 mg PO HS #30 tab 02/08/18 tamsulosin 0.4 mg PO DAILY #90 cap 02/08/18 torsemide 10 mg PO BID@0900,1800 #60 tab 02/08/18 Allergies Allergy/AdvReac Type Severity Reaction Status Date / Time codeine Allergy Severe Hives Verified 03/15/18 15:07 Review of Systems ROS: all other systems reviewed are negative [facility] Medical History Medical History Mass of upper lobe of right lung (Acute) H/O chronic pancreatitis (Acute) Femoral artery occlusion, right (Acute) MRSA (methicillin resistant Staphylococcus aureus) (Acute) Homelessness (Acute) Tobacco abuse (Acute) Alcohol abuse (Acute) COPD (chronic obstructive pulmonary disease) (Acute) Hyperlipemia (Acute) Hypertension (Acute) Social History Social History Substance History: Active Abuse Second Hand Smoke Exposure: No Smoking Status: Former smoker Tobacco Type: Cigarettes Packs Per Day: 1 Cigarettes Per Day: 20.0 years: 35 How Often Do You Have a Drink Containing Alcohol: 4 or more times a week Recent Travel in [facility] within the Last 8 Weeks: No Immunization History Tetanus Immunization: <5 Years Exam Narrative Exam Narrative: GENERAL: WD, Wn in mild distress. SKIN: Focused skin assessment warm/dry. HEAD: Atraumatic. Normocephalic. EYES: Pupils equal and round. No scleral icterus. No injection or drainage. ENT: No nasal bleeding or discharge. Mucous membranes pink and moist. NECK: Trachea midline. No JVD. No midline tenderness, no lymphadenopathy CARDIOVASCULAR: Regular rate and rhythm. No murmur appreciated. RESPIRATORY: No accessory muscle use. Clear to auscultation. Breath sounds equal bilaterally. GASTROINTESTINAL: Abdomen soft, non-tender, nondistended. Hepatic and splenic margins not palpable. MUSCULOSKELETAL: No obvious deformities. No clubbing. No cyanosis. No edema. BACK: No CVA tenderness. No rash. No point tenderness on palpation of the spine. Tenderness palpation just to the right of the lower lumbar spine without obvious bulging, trauma, deformities. Pulse, motor, sensory intact bilateral lower extremities. NEUROLOGICAL: Awake and alert. No obvious cranial nerve deficits. Motor grossly within normal limits. Normal speech. RLE- midline anterior scar present (remote, healed) PSYCHIATRIC: Appropriate mood and affect; insight and judgment normal. Course Initial Documented Vital Signs Temperature 98.0 F 03/15/18 14:49 Pulse Rate 97 H 03/15/18 14:49 Respiratory Rate 22 03/15/18 14:49 Blood Pressure 138/78 03/15/18 14:49 Pulse Oximetry 98 03/15/18 14:49 Last Documented Vital Signs Temperature 98.0 F 03/15/18 14:49 Pulse Rate 97 H 03/15/18 14:54 Respiratory Rate 22 03/15/18 14:49 Blood Pressure 138/78 03/15/18 14:49 Pulse Oximetry 98 03/15/18 15:06 Medical Decision Making [facility] Narrative Medical decision making narrative: 62-year-old male presents to the emergency department for evaluation of right lower extremity swelling pain, shortness of breath, and low back pain that started Tuesday. He states his oncologist recommended he come in for evaluation of the right lower extremity swelling. Patient states that his oncologist treated his low back pain initially with ibuprofen and then was prescribed hydrocodone and subsequently given morphine. He says he took morphine 50 mg just prior to arrival today which did not seem to improve his pain. Vital signs are stable. Labs are notable for chronic, stable anemia at H/H 9.4/28.5, BUN/Cr 15/0.77, troponin <0.02. Chest x-ray is stable. Ordered a CTA for evaluation as patient states he is short of breath and he has a history of cancer. There is also concern of a DVT right lower extremity. Ultrasound was negative for DVT. CTA demonstrated no pulmonary embolism. Moderate right pleural effusion which is new along with parenchymal densities, concerning for pneumonia. There is also a new lesion in the right lower lung concerning for recurrent carcinoma. I discussed the findings with the CT with the patient and advised that he is to follow-up with Dr. Kovacs for further evaluation of this. We attempted to walk the patient with respiratory therapy however, we were unsuccessful as patient became intolerant of exercise secondary to shortness of breath and low back pain. SaO2 94% walking. I discussed this case with my attending who agreed that patient should be admitted. I spoke with Dr. Wilson who agreed to the admission. Medical Screen Exam Complete: Yes Emergency Medical Condition: Yes Differential Diagnosis Differential Diagnosis: Cauda equina syndrome, pulmonary embolism, right lower extremity DVT, cellulitis, pneumonia, bronchitis Lab Data Result diagrams: 03/15/18 15:00 03/15/18 15:00 Lab Results 03/15/18 03/15/18 03/15/18 Range/Units 15:00 15:00 15:00 WBC 6.0 (4.0-11.0) th/mm3 RBC 3.03 L (4.50-5.90) mil/mm3 Hgb 9.4 L (13.0-17.0) gm/dL Hct 28.5 L (39.0-51.0) % MCV 94.1 (80.0-100.0) fL MCH 31.1 (27.0-34.0) pg MCHC 33.1 (32.0-36.0) % RDW 21.0 H (11.6-17.2) % Plt Count 169 (150-450) th/mm3 MPV 8.2 (7.0-11.0) fL Prelim Diff (Auto) Slide review pending Neut % (Auto) 80.4 H (16.0-70.0) % Lymph % (Auto) 7.0 L (9.0-44.0) % Sac % (Auto) 12.2 H (0.0-8.0) % Eos % (Auto) 0.1 (0.0-4.0) % Baso % (Auto) 0.3 (0.0-2.0) % Neut # (Auto) 4.8 (1.8-7.7) th/mm3 Lymph # (Auto) 0.4 L (1.0-4.8) th/mm3 Sac # (Auto) 0.7 (0.0-0.9) th/mm3 Eos # (Auto) 0.0 (0.0-0.4) th/mm3 Baso # (Auto) 0.0 (0.0-0.2) th/mm3 WBC Differential Manual diff final Seg Neuts % (Manual) 77 H (16-70) % Band Neuts % (Manual) 12 H (0-6) % Lymphocytes % (Manual) 2 L (9-44) % Monocytes % (Manual) 8 (0-8) % Eosinophils % (Manual) 1 (0-4) % Abs Neuts (Manual) 5.3 (1.8-7.7) th/mm3 Differential Comment . Platelet Estimate Normal (Normal) Platelet Morphology Normal (Normal) Basophilic Stippling Faint H (None) Ovalocytes 1+ H (None) PT 10.0 (9.8-11.6) sec INR 1.0 Ratio APTT 26.8 (24.3-30.1) sec Sodium 138 (136-145) meq/L Potassium 3.2 L (3.5-5.1) meq/L Chloride 100 (98-107) meq/L Carbon Dioxide 29.8 (21.0-32.0) meq/L Anion Gap 8 (5-15) meq/L BUN 15 (7-18) mg/dL Creatinine 0.77 (0.60-1.30) mg/dL Estimated GFR Greater than 89 (>89) mL/min Random Glucose 107 H (74-106) mg/dL Calcium 8.6 (8.5-10.1) mg/dL Magnesium 2.0 (1.5-2.5) mg/dL Total Bilirubin 0.6 (0.2-1.0) mg/dL AST 13 L (15-37) U/L ALT 20 (12-78) U/L Alkaline Phosphatase 107 (45-117) U/L Troponin I Less than 0.02 L (0.02-0.05) ng/mL Total Protein 7.4 (6.4-8.2) g/dL Albumin 3.2 L (3.4-5.0) g/dL Imaging Data Radiologist's impression: Chest CTA 03/15/18 14:42 CONCLUSION: 1. No evidence for pulmonary embolism. 2. Moderate right pleural effusion. 3. Scattered parenchymal densities throughout the right lung could be infectious or inflammatory. 4. Parenchymal lesion in the right lower lung measures 2.7 cm could be recurrent carcinoma. Outpatient PET CT scan recommended for further characterization. Venous Doppler Study 03/15/18 14:42 CONCLUSION: 1. No evidence of DVT. Chest X-Ray 03/15/18 14:43 CONCLUSION: 1. Persistent presumed postsurgical volume loss with airspace consolidation in the right hilum and lower lung zone. 2. No significant interval change or acute abnormality. Discharge Plan Discharge Disposition Patient Disposition: 30 Still Patient Discharge Condition Condition: Stable Discharge Details Diagnosis: Pneumonia, Pleural effusion Physicians Team ED Provider: Hayley Atkins ED Midlevel Provider: Amaya Amezquita Primary Care Provider: Emi Stone Attending Provider: Ai Jane Other Providers: Libra Jarrett ; Mark Henry Status ED Status: Admitted Observation Patient
--- NOTE | 2018-03-15 15:27 | XR ---
EXAM DATE: 03/15/2018 2:43 PM EDT AGE/SEX: 62 years / Male INDICATIONS: Short of breath. CLINICAL DATA: This is the patient's initial encounter. Patient reports that signs and symptoms have been present for 1 day and indicates a pain score of 0/10. MEDICAL/SURGICAL HISTORY: . Chronic obstructive pulmonary disease. Pancreatitis. Hypertension. ETOH abuse, lung MRSA,lung cancer. Tonsillectomy. COMPARISON: [facility] [place], CHEST 1V SINGLE AP, 02/26/2018. . FINDINGS: Persistent volume loss and airspace consolidation in the right perihilar and right lower lung zone. N o new focal pleural or parenchymal opacities in the left lung. Cardiomediastinal contours are stable. Redemonstration of right rib deformities, likely postsurgical. CONCLUSION: 1. Persistent presumed postsurgical volume loss with airspace consolidation in the right hilum and l ower lung zone. 2. No significant interval change or acute abnormality. Electronically signed by: Edgar Padilla MD 03/15/2018 3:25 PM EDT
[2018-03-15 15:28] LABS: Baso % (Auto) 0.3 % (0.0-2.0); Eos % (Auto) 0.1 % (0.0-4.0); Hematocrit 28.5 % (39.0-51.0); Hemoglobin 9.4 gm/dL (13.0-17.0); Lymph # (Auto) 0.4 th/mm3 (1.0-4.8); Mean Corpuscular HGB Conc 33.1 % (32.0-36.0); Mean Corpuscular Hemoglobin 31.1 pg (27.0-34.0); Mean Corpuscular Volume 94.1 fL (80.0-100.0); Mean Platelet Volume 8.2 fL (7.0-11.0); Mono # (Auto) 0.7 th/mm3 (0.0-0.9); Mono % (Auto) 12.2 % (0.0-8.0); Neut # (Auto) 4.8 th/mm3 (1.8-7.7); Neut % (Auto) 80.4 % (16.0-70.0); Platelet Count 169 th/mm3 (150-450); Red Blood Count 3.03 mil/mm3 (4.50-5.90)
[2018-03-15] MEDS ORDERED: Sod Chloride 0.9% Inj 1,000 ML IV.SIG SCH (15:30)
[2018-03-15 15:43] LABS: Activated Partial Thrombo Time 26.8 sec (24.3-30.1)
[2018-03-15 15:47] LABS: Alanine Aminotransferase 20 U/L (12-78); Albumin 3.2 g/dL (3.4-5.0); Anion Gap 8 meq/L (5-15); Aspartate Aminotransferase 13 U/L (15-37); Blood Urea Nitrogen 15 mg/dL (7-18); Calcium 8.6 mg/dL (8.5-10.1); Carbon Dioxide 29.8 meq/L (21.0-32.0); Chloride 100 meq/L (98-107); Glomerular Filtration Rate Greater Than 89 mL/min (>89); Glucose,Random 107 mg/dL (74-106); Potassium 3.2 meq/L (3.5-5.1); Sodium 138 meq/L (136-145)
[2018-03-15 15:51] LABS: Alkaline Phosphatase 107 U/L (45-117); Total Protein 7.4 g/dL (6.4-8.2)
--- NOTE | 2018-03-15 16:12 | US ---
EXAM DATE: 03/15/2018 2:42 PM EDT AGE/SEX: 62 years / Male INDICATIONS: Right leg swelling. CLINICAL DATA: This is the patient's subsequent encounter. Patient reports that signs and symptoms h ave been present for 1 week and indicates a pain score of 2/10. MEDICAL/SURGICAL HISTORY: . Hypertension. Peripheral artery disease. EtOH abuse. COPD. Hyperlip idemia. Right upper lobe lung mass. MRSA bilateral feet. . Tonsillectomy. 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 Left hand surgery. COMPARISON: [facility] [place] VENOUS DOPPLER LEG RIGHT, 01/25/2018. . TECHNIQUE: Venous ultrasound of both lower extremities was performed from the inguinal ligament to t he proximal calf. Real-time, color Doppler and spectral tracing, compression and augmentation techni ques were used. FINDINGS: Normal compression of the deep venous system from the inguinal region to the proximal calf . No echogenic clot is seen. Normal response of the venous system to augmentation and respiration. CONCLUSION: 1. No evidence of DVT. Electronically signed by: David Rodriguez MD 03/15/2018 4:11 PM EDT
[2018-03-15 16:17] LABS: Eosinophils 1 % (0-4); Lymphocytes 2 % (9-44); Monocytes 8 % (0-8)
[2018-03-15 16:18] LABS: Ovalocytes 1+
[2018-03-15 16:19] LABS: Platelet Estimate Normal (Normal); Platelet Morphology Normal (Normal)
--- NOTE | 2018-03-15 16:56 | CT ---
EXAM DATE: 03/15/2018 4:02 PM EDT AGE/SEX: 62 years / Male INDICATIONS: Short of breath and right lower extremity swelling. CLINICAL DATA: This is the patient's initial encounter. Patient reports that signs and symptoms have been present for 3 days and indicates a pain score of 10/10. MEDICAL/SURGICAL HISTORY: Chronic obstructive pulmonary disease. Pancreatitis. Hypertension. Fem oral artery occlusion. Lung cancer. Tonsillectomy. RADIATION DOSE: 10.72 CTDI (mGy) COMPARISON: [facility], CTA PULMONARY W CONTRAST W 3D, 02/18/2018. . TECHNIQUE: Volumetric scanning was performed using a multi-row detector CT scanner during bolus infu mario of 50 ml Omnipaque 350 (iohexol) nonionic water-soluble contrast as a single exam dose. The waldemar a was post processed with a variety of visualization algorithms including full volume maximum intensi ty projection and sliding thin slab reformation. Using automated exposure control and adjustment of t he mA and/or kV according to patient size, radiation dose was kept as low as reasonably achievable to obtain optimal diagnostic quality images. DICOM format image data is available electronically for r eview and comparison. FINDINGS: Pulmonary Arteries: No filling defects are seen in the pulmonary arteries out to the subsegmental ve ssels. The left and right pulmonary arteries are normal in diameter. Lung: Postsurgical changes in the right lung with volume loss. Parenchymal density in the right lowe r lung measures 2.7 cm. Patchy parenchymal densities throughout the right lung likely infectious/infl ammatory.. Effusion: Moderate right pleural effusion. Mediastinum: Right paratracheal adenopathy measures 13 mm in short axis. No evidence of left mediasti nal or hilar adenopathy. Other: The axilla is unremarkable. CONCLUSION: 1. No evidence for pulmonary embolism. 2. Moderate right pleural effusion. 3. Scattered parenchymal densities throughout the right lung could be infectious or inflammatory. 4. Parenchymal lesion in the right lower lung measures 2.7 cm could be recurrent carcinoma. Outpatie nt PET CT scan recommended for further characterization. Electronically signed by: Kenan Heller MD 03/15/2018 4:55 PM EDT
[2018-03-15] MEDS ORDERED: Azithromycin Inj 500 MG in Sodium Chlor 0.9% Inj 250 ML IV.SIG ONE (17:03)
[2018-03-15] MEDS ORDERED: Acetaminophen 325 MG Tablet PO PRN (18:36)
[2018-03-15] MEDS ORDERED: Bisacodyl 10 MG Supp RECTAL PRN (18:36)
[2018-03-15] MEDS ORDERED: LORazepam 1 MG Tablet PO PRN (19:02)
[2018-03-15] MEDS ORDERED: Haloperidol Inj 5 MG/ML Ampul IV.PUSH PRN (19:02)
--- NOTE | 2018-03-15 19:11 | P.HPIM ---
History of Present Illness Primary Care Physician: Emi Stone History of Present Illness: This is a 62-year-old male with a PMH of HTN, COPD, Alcohol Abuse, Recurrent Right Pleural Effusion and Lung CA w/ Mets on Chemo/Radiation who presented to the ER w/ c/o severe back pain. Recently seen in ER on 03/08/18 for similar complaints, referred to the ER by Dr. Ann for STAT MRI to eval severe back pain, MRI L-Spine 03/08/18 w/ abnormal marrow replacement L3, likely metastatic. States he was seen by Dr. Ann after those results and had Radiation today. Referred to the ER today by Dr. Kovacs with whom he follows, for ongoing back pain and RLE pain. States pain is severe, 03/01, occasional radiation down RLE w/ associated numbness/tingling. No incontinence. On arrival, BP 138/78, HR 98% on RA, Afebrile. CBC essentially at baseline except for bandemia of 12%. INR 1.0. Chemistry essentially unremarkable. CXR with postsurgical volume loss and airspace consolidation right hilum, no significant change. Doppler LE negative for DVT. CTA Chest negative for PE, moderate right pleural effusion, scattered parenchymal densities throughout right lung could be infectious, parenchymal lesion right lower lung 2.7 cm. - Diagnosis (1) Intractable back pain (2) Lung cancer (3) COPD (chronic obstructive pulmonary disease) (4) Alcohol abuse (5) Pleural effusion (6) PNA (pneumonia) Review of Systems PAST FAMILY HISTORY: Reviewed. 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 - Medical History Medical History: Medical History (Last Reviewed 03/15/18 @ 15:22 by DIDIER Cast) Mass of upper lobe of right lung (Acute) H/O chronic pancreatitis (Acute) Femoral artery occlusion, right (Acute) MRSA (methicillin resistant Staphylococcus aureus) (Acute) Homelessness (Acute) Tobacco abuse (Acute) Alcohol abuse (Acute) COPD (chronic obstructive pulmonary disease) (Acute) Hyperlipemia (Acute) Hypertension (Acute) - Surgical History Surgical History: Surgical History (Last Reviewed 03/15/18 @ 14:52 by Marina Carrasco) H/O hand surgery (Acute) History of tonsillectomy (Acute) Status post bilateral LASIK surgery (Acute) 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) - Family History Family History: Family History (Last Reviewed 03/08/18 @ 14:47 by Hayley Atkins) Mother Unknown family medical history Father Cancer - Tobacco History Second Hand Smoke Exposure: No Tobacco Use In Past 30 Days: No Smoking Status: Former smoker Tobacco Type: Cigarettes Packs Per Day: 1 years: 35 - Alcohol History How Often Do You Have a Drink Containing Alcohol: 4 or more times a week - Substance Use History Substance History: Active Abuse - Travel History Recent Travel in the [facility] Within the Last 8 Weeks: No - Immunization History Tetanus Immunization: <5 Years Medications and Allergies Active Medications: Active Medications Acetaminophen (Tylenol) 650 mg PO Q4H PRN PRN Reason: Headache, fever, pain 1-4 Al Hydroxide/Mg Hydroxide (Milk Of Magnesia Liq) 30 ml PO Q12H PRN PRN Reason: Mild Constipation Albuterol (Duoneb Neb (Prn)) 1 ampul NEB Q4HR NEB PRN PRN Reason: SOB/WHEEZING Bisacodyl (Dulcolax Supp) 10 mg RECTAL DAILY PRN PRN Reason: SEVERE CONSITIPATION Budesonide/Formoterol Fumarate (Symbicort 160/4.5 Mcg Inh) 2 puff INH BID IAN Clopidogrel Bisulfate (Plavix) 75 mg PO DAILY IAN Cyclobenzaprine HCl (Flexeril) 10 mg PO Q8HR IAN Enoxaparin Sodium (Lovenox Inj) 40 mg SQ Q24H IAN Flumazenil (Romazecon Inj) 0.2 mg IV.PUSH Q1M PRN PRN Reason: OVERSEDATION Folic Acid (Folic Acid) 1 mg PO DAILY [facility] Stop: 03/21/18 08:59 Haloperidol Lactate (Haldol Inj) 1 mg IV.PUSH Q15M PRN PRN Reason: for severe agitation Hydromorphone HCl (Dilaudid Pf Inj) 1 mg IV.PUSH Q4H PRN PRN Reason: PAIN 6-10 Sodium Chloride (Ns Inj) 1,000 mls @ 0 mls/hr IV.SIG BOLUS IAN Last Infusion: 03/15/18 16:30 Dose: Infused Lactulose (Lactulose Liq) 30 ml PO DAILY PRN PRN Reason: SEVERE CONSITIPATION Lorazepam (Ativan) 1 mg PO Q4H PRN PRN Reason: for CIWA 8-10 Lorazepam (Ativan) 2 mg PO Q2H PRN PRN Reason: for CIWA 11-14 Lorazepam (Ativan Inj) 2 mg IV.PUSH Q1H PRN PRN Reason: for CIWA 15-20 Lorazepam (Ativan Inj) 2 mg IV.PUSH Q15M PRN PRN Reason: for CIWA > 20 Lorazepam (Ativan Inj) 1 mg IV.PUSH Q4H PRN PRN Reason: for CIWA 8-10 Lorazepam (Ativan Inj) 2 mg IV.PUSH Q2H PRN PRN Reason: for CIWA 11-14 Multivitamins/Minerals (Theragran-M) 1 tab PO DAILY [facility] Stop: 03/21/18 08:59 Ondansetron HCl (Zofran Inj) 4 mg IV.PUSH Q6H PRN PRN Reason: NAUSEA OR VOMITING Pantoprazole Sodium (Protonix) 40 mg PO HS [facility] Sennosides (Senokot) 17.2 mg PO Q12H PRN PRN Reason: Moderate Constipation Tamsulosin HCl (Flomax) 0.4 mg PO DAILY [facility] Thiamine HCl (Vitamin B1) 100 mg PO DAILY [facility] Torsemide (Demadex) 10 mg PO BID@0900,1800 [facility] Allergies Allergy/AdvReac Type Severity Reaction Status Date / Time codeine Allergy Severe Hives Verified 03/15/18 15:07 Home Medications Medication Instructions Recorded Confirmed Type albuterol sulfate [Proventil HFA] 2 puff INHALATION BID 03/08/18 03/15/18 History albuterol sulfate [Ventolin HFA] 2 puff INHALATION Q4-6H PRN 03/08/18 03/15/18 History budesonide-formoterol [Symbicort] 2 puff INHALATION BID 03/08/18 03/15/18 History hydrocodone-acetaminophen [[place]] 1 tab PO Q4-6H PRN 03/08/18 03/15/18 History prednisone 10 mg PO DIRECTED 03/08/18 03/15/18 History ibuprofen 800 mg PO TID 03/15/18 03/15/18 History lorazepam 1 mg PO BID 03/15/18 03/15/18 History Exam Vital signs: Vital Signs 03/15/18 14:49 03/15/18 14:54 03/15/18 15:06 Temperature 98.0 F Pulse Rate 97 H 97 H Respiratory Rate 22 Blood Pressure 138/78 Pulse Oximetry 98 98 98 Intake & Output 03/15/18 03/15/18 03/16/18 06:59 18:59 06:59 Intake Total 1100 / 1100 Balance 1100 / 1100 Intake: IV 1100 / 1100 NS Inj 1,000 ML @ Wide Open IV. 1000 / 1000 SIG BOLUS IAN Rx#:[id number] Rocephin Inj 1,000 MG In NS Inj 100 / 100 100 ML @ 200 mls/hr IV.SIG ONCE ONE Rx#:[id number] Narrative: PE: GENERAL: Middle-aged white male in obvious pain, uncomfortable. SKIN: Focused skin assessment warm and dry. HEENT: PERRLA, EOMI. No scleral icterus or conjunctival pallor. No lid lag or facial droop. CARDIOVASCULAR: Regular rate and rhythm. No obvious murmurs to auscultation. No chest tenderness to palpation. RESPIRATORY: Coarse breath sounds, occasional wheezing. Breath sounds equal bilaterally. GASTROINTESTINAL: Abdomen soft, non-tender, nondistended. BS normal. MUSCULOSKELETAL: Extremities without clubbing, cyanosis, or edema. No obvious deformities. NEUROLOGICAL: Awake, alert and oriented x4. No focal neurologic deficits. Moving both upper and lower extremities spontaneously. PSYCHIATRIC: Appropriate mood and affect. Insight and judgment normal. Results - Labs CBC & Chem 7: 03/15/18 15:00 03/15/18 15:00 Labs: Short CBC 03/15/18 Range/Units 15:00 WBC 6.0 (4.0-11.0) th/mm3 Hgb 9.4 L (13.0-17.0) gm/dL Hct 28.5 L (39.0-51.0) % Plt Count 169 (150-450) th/mm3 BMP 03/15/18 15:00 Sodium 138 Potassium 3.2 L Chloride 100 Carbon Dioxide 29.8 BUN 15 Creatinine 0.77 Calcium 8.6 Cardiac Enzymes 03/15/18 Range/Units 15:00 Troponin I Less than 0.02 L (0.02-0.05) ng/mL Liver Function 03/15/18 Range/Units 15:00 Total Bilirubin 0.6 (0.2-1.0) mg/dL AST 13 L (15-37) U/L ALT 20 (12-78) U/L Alkaline Phosphatase 107 (45-117) U/L Albumin 3.2 L (3.4-5.0) g/dL - Imaging Impressions Chest CTA 03/15/18 14:42 CONCLUSION: 1. No evidence for pulmonary embolism. 2. Moderate right pleural effusion. 3. Scattered parenchymal densities throughout the right lung could be infectious or inflammatory. 4. Parenchymal lesion in the right lower lung measures 2.7 cm could be recurrent carcinoma. Outpatient PET CT scan recommended for further characterization. Venous Doppler Study 03/15/18 14:42 CONCLUSION: 1. No evidence of DVT. Chest X-Ray 03/15/18 14:43 CONCLUSION: 1. Persistent presumed postsurgical volume loss with airspace consolidation in the right hilum and lower lung zone. 2. No significant interval change or acute abnormality. Caprini VTE Risk Assessment Caprini VTE Risk Assessment: No/Low Risk (score <= 1) Caprini Risk Assessment Model: Point Value = 1 Point Value = 2 Point Value = 3 Point Value = 5 Age 41-60 Minor surgery BMI > 25 kg/m2 Swollen legs Varicose veins or History of unexplained or recurrent spontaneous Oral contraceptives or hormone replacement Sepsis (< 1 month) Serious lung disease, including pneumonia (< 1 month) Abnormal pulmonary function Acute myocardial infarction Congestive heart failure (< 1 month) History of inflammatory bowel disease Medical patient at bed rest Age 61-74 Arthroscopic surgery Major open surgery (> 45 min) Laparoscopic surgery (> 45 min) Malignancy Confined to bed (> 72 hours) Immobilizing plaster cast Central venous access Age >= 75 History of VTE Family history of VTE Factor V Leiden Prothrombin [id number] Lupus anticoagulant Anticardiolipin antibodies Elevated serum homocysteine Heparin-induced thrombocytopenia Other congenital or acquired thrombophilia Stroke (< 1 month) Elective arthroplasty Hip, pelvis, or leg fracture Acute spinal cord injury (< 1 month) Prophylaxis Regimen: Total Risk Factor Score Risk Level Prophylaxis Regimen 0-1 Low Early ambulation 2 Moderate Order ONE of the following: *Sequential Compression Device (SCD) *Heparin 5000 units SQ BID 3-4 Higher Order ONE of the following medications: *Heparin 5000 units SQ TID *Enoxaparin/Lovenox 40 mg SQ daily (WT < 150 kg, CrCl > 30 mL/min) *Enoxaparin/Lovenox 30 mg SQ daily (WT < 150 kg, CrCl > 10-29 mL/min) *Enoxaparin/Lovenox 30 mg SQ BID (WT < 150 kg, CrCl > 30 mL/min) AND/OR *Sequential Compression Device (SCD) 5 or more Highest Order ONE of the following medications: *Heparin 5000 units SQ TID (Preferred with Epidurals) *Enoxaparin/Lovenox 40 mg SQ daily (WT < 150 kg, CrCl > 30 mL/min) *Enoxaparin/Lovenox 30 mg SQ daily (WT < 150 kg, CrCl > 10-29 mL/min) *Enoxaparin/Lovenox 30 mg SQ BID (WT < 150 kg, CrCl > 30 mL/min) AND *Sequential Compression Device (SCD) Assessment and Plan - Assessment (1) Intractable back pain Code(s): M54.9 - Dorsalgia, unspecified Status: Acute (2) Lung cancer Code(s): C34.90 - Malignant neoplasm of unspecified part of unspecified bronchus or lung Status: Acute (3) COPD (chronic obstructive pulmonary disease) Code(s): J44.9 - Chronic obstructive pulmonary disease, unspecified Status: Acute (4) Alcohol abuse Code(s): F10.10 - Alcohol abuse, uncomplicated Status: Acute (5) Pleural effusion Code(s): J90 - Pleural effusion, not elsewhere classified Status: Acute (6) PNA (pneumonia) Code(s): J18.9 - Pneumonia, unspecified organism Status: Acute - Plan A/P: 1. Intractable Back Pain: h/o Lung CA w/ Mets, MRI L-Spine 03/08/18 w/ L3 lesion, likely metastatic, following w/ Dr. Kovacs/Dr. Ann, will consult for further evaluation/recommendations. Continue analgesics/antiemetics as needed, add Flexeril prn. PT for eval/tx 2. Lung CA: w/ Mets, as above pt currently receiving Chemo/Radiation w/ Dr. Kovacs and Dr. Ann, referred to the ER by Dr. Kovacs today, will consult for ongoing management. 3. Pleural Effusion: Right. Recurrent. Previous admit 02/18-02/23/18 s/p thoracentesis w/ 600cc removal, cytology negative. CTA Pulm w/ moderate right pleural effusion, will monitor closely for need to have additional thoracentesis 4. PNA: CXR w/ possible pneumonia, CTA Chest negative for PE, +parenchymal densities possibly infectious, in light of immunocompromised state, bandemia and physical exam, will continue w/ IV Abx for underlying pneumonia. 5. COPD: Chronic Respiratory Failure w/ Acute Exacerbation. Moderate. + wheezing, Symbicort, DuoNeb, monitor O2. 6. Alcohol Abuse: Chronic. Drinks 8 beers/day. CIWA, Seizure Precautions, MVT/Thiamine/Folate 7. DVT Prophylaxis: Lovenox 8. Social work for d/c planning as needed 9. Case discussed w/ ER physician at length, labs/records/imaging reviewed by me
[2018-03-15] MEDS: HYDROmorphone PF Inj 2 MG/ML Vial IV.PUSH PRN (20:46)
[2018-03-15] MEDS: Enoxaparin Inj 40 MG/0.4 ML Syringe SQ SCH (20:46)
[2018-03-15] MEDS: guaiFENesin 600 MG ER Tablet PO SCH (20:47)
[2018-03-15] MEDS: Budesonide-Formoterol 160/4.5 MCG 6 GM Inhaler INH SCH (22:30)
[2018-03-16] MEDS: HYDROmorphone PF Inj 2 MG/ML Vial IV.PUSH PRN ×5 (04:21→21:03)
[2018-03-16] MEDS: Folic Acid 1 MG Tablet PO SCH (09:14)
[2018-03-16] MEDS: guaiFENesin 600 MG ER Tablet PO SCH ×2 (09:14→21:03)
[2018-03-16] MEDS: Budesonide-Formoterol 160/4.5 MCG 6 GM Inhaler INH SCH ×2 (09:14→21:04)
[2018-03-16] MEDS: Multivitamin/Minerals Therapeutic Tablet PO SCH (09:14)
--- NOTE | 2018-03-16 12:45 | P.PN ---
Subjective Interval history: The patient was seen after the imaging. He says he has more pain in his back. He is able to eat no nausea vomiting or diarrhea constipation. Some shortness of breath. However he is not coughing at this time. No fever or chills. Physical Exam Vital signs: Vital Signs 03/15/18 14:49 03/15/18 14:54 03/15/18 15:06 Temperature 98.0 F Pulse Rate 97 H 97 H Respiratory Rate 22 Blood Pressure 138/78 Pulse Oximetry 98 98 98 03/15/18 22:37 03/16/18 00:00 03/16/18 01:03 Temperature 98.3 F 97.8 F Pulse Rate 78 92 H Respiratory Rate 18 20 Blood Pressure 133/72 125/61 Pulse Oximetry 98 98 93 L 03/16/18 03:25 03/16/18 07:39 03/16/18 12:00 Temperature 97.5 F L 98.0 F 97.9 F Pulse Rate 87 96 H 99 H Respiratory Rate 19 18 22 Blood Pressure 128/78 115/77 124/78 Pulse Oximetry 92 L 91 L 96 Intake & Output 03/15/18 03/16/18 03/16/18 18:59 06:59 18:59 Intake Total 1100 / 1100 610 / 610 100 / 100 Output Total 660 / 660 Balance 1100 / 1100 -50 / -50 100 / 100 Weight 99.79 kg Intake: IV 1100 / 1100 250 / 250 100 / 100 Azithromycin Inj 500 MG In NS 250 / 250 Inj 250 ML @ 250 mls/hr IV.SIG ONCE ONE Rx#:[id number] Maxipime Inj 1,000 MG In NS Inj 100 / 100 100 ML @ 200 mls/hr IV.SIG Q12H IAN Rx#:[id number] NS Inj 1,000 ML @ Wide Open IV. 1000 / 1000 SIG BOLUS IAN Rx#:[id number] Rocephin Inj 1,000 MG In NS Inj 100 / 100 100 ML @ 200 mls/hr IV.SIG ONCE ONE Rx#:[id number] Oral 360 / 360 Output: Urine 660 / 660 Other: Date of Last Bowel Movement 03/15/18 03/15/18 Weight On Admission 99.79 kg Narrative: GENERAL: Middle-aged male. appears in nad. CARDIOVASCULAR: Regular rate and rhythm. No obvious murmurs to auscultation. No chest tenderness to palpation. RESPIRATORY: Coarse breath sounds, occasional wheezing. Breath sounds equal bilaterally. GASTROINTESTINAL: Abdomen soft, non-tender, nondistended. BS normal. MUSCULOSKELETAL: Extremities without clubbing, cyanosis, or edema. No obvious deformities. NEUROLOGICAL: Awake, alert and oriented x4. No focal neurologic deficits. Moving both upper and lower extremities spontaneously. PSYCHIATRIC: Appropriate mood and affect. Insight and judgment normal. Results - Labs CBC & Chem 7: 03/15/18 15:00 03/15/18 15:00 Laboratory Results - last 24 hr 03/15/18 03/15/18 03/15/18 15:00 15:00 15:00 WBC 6.0 RBC 3.03 L Hgb 9.4 L Hct 28.5 L MCV 94.1 MCH 31.1 MCHC 33.1 RDW 21.0 H Plt Count 169 MPV 8.2 Prelim Diff (Auto) Slide review pending Neut % (Auto) 80.4 H Lymph % (Auto) 7.0 L [place] % (Auto) 12.2 H Eos % (Auto) 0.1 Baso % (Auto) 0.3 Neut # (Auto) 4.8 Lymph # (Auto) 0.4 L [place] # (Auto) 0.7 Eos # (Auto) 0.0 Baso # (Auto) 0.0 WBC Differential Manual diff final Seg Neuts % (Manual) 77 H Band Neuts % (Manual) 12 H Lymphocytes % (Manual) 2 L Monocytes % (Manual) 8 Eosinophils % (Manual) 1 Abs Neuts (Manual) 5.3 Differential Comment . Platelet Estimate Normal Platelet Morphology Normal Basophilic Stippling Faint H Ovalocytes 1+ H PT 10.0 INR 1.0 APTT 26.8 Sodium 138 Potassium 3.2 L Chloride 100 Carbon Dioxide 29.8 Anion Gap 8 BUN 15 Creatinine 0.77 Estimated GFR Greater than 89 POC Glucose Random Glucose 107 H Calcium 8.6 Magnesium 2.0 Total Bilirubin 0.6 AST 13 L ALT 20 Alkaline Phosphatase 107 Troponin I Less than 0.02 L Total Protein 7.4 Albumin 3.2 L 03/16/18 09:49 WBC RBC Hgb Hct MCV MCH MCHC RDW Plt Count MPV Prelim Diff (Auto) Neut % (Auto) Lymph % (Auto) [place] % (Auto) Eos % (Auto) Baso % (Auto) Neut # (Auto) Lymph # (Auto) [place] # (Auto) Eos # (Auto) Baso # (Auto) WBC Differential Seg Neuts % (Manual) Band Neuts % (Manual) Lymphocytes % (Manual) Monocytes % (Manual) Eosinophils % (Manual) Abs Neuts (Manual) Differential Comment Platelet Estimate Platelet Morphology Basophilic Stippling Ovalocytes PT INR APTT Sodium Potassium Chloride Carbon Dioxide Anion Gap BUN Creatinine Estimated GFR POC Glucose 166 H Random Glucose Calcium Magnesium Total Bilirubin AST ALT Alkaline Phosphatase Troponin I Total Protein Albumin - Imaging Impressions Chest CTA 03/15/18 14:42 CONCLUSION: 1. No evidence for pulmonary embolism. 2. Moderate right pleural effusion. 3. Scattered parenchymal densities throughout the right lung could be infectious or inflammatory. 4. Parenchymal lesion in the right lower lung measures 2.7 cm could be recurrent carcinoma. Outpatient PET CT scan recommended for further characterization. Venous Doppler Study 03/15/18 14:42 CONCLUSION: 1. No evidence of DVT. Chest X-Ray 03/15/18 14:43 CONCLUSION: 1. Persistent presumed postsurgical volume loss with airspace consolidation in the right hilum and lower lung zone. 2. No significant interval change or acute abnormality. Assessment and Plan - Assessment (1) Intractable back pain Code(s): M54.9 - Dorsalgia, unspecified Status: Acute (2) Lung cancer Code(s): C34.90 - Malignant neoplasm of unspecified part of unspecified bronchus or lung Status: Acute (3) COPD (chronic obstructive pulmonary disease) Code(s): J44.9 - Chronic obstructive pulmonary disease, unspecified Status: Acute (4) Alcohol abuse Code(s): F10.10 - Alcohol abuse, uncomplicated Status: Acute (5) Pleural effusion Code(s): J90 - Pleural effusion, not elsewhere classified Status: Acute (6) PNA (pneumonia) Code(s): J18.9 - Pneumonia, unspecified organism Status: Acute - Plan Intractable Back Pain H/o Lung CA with Mets MRI L-Spine 03/08/18 w/ L3 lesion, likely metastatic, following w/ Dr. Kovacs/ Dr. Ann, were consulted for further evaluation/recommendations. Continue analgesics/antiemetics as needed, add Flexeril prn. PT for eval/tx Possible intervention per IR Lung CA with Mets, as above pt currently receiving Chemo/Radiation w/ Dr. Kovacs and Dr. Ann, referred to the ER by Dr. Kovacs today, will consult for ongoing management. Recurrent Right Pleural Effusion Previous admit 02/18-02/23/18 s/p thoracentesis w/ 600cc removal, cytology negative. CTA Pulm w/ moderate right pleural effusion, will monitor closely for need to have additional thoracentesis PNA: CXR w/ possible pneumonia, CTA Chest negative for PE, +parenchymal densities possibly infectious, in light of immunocompromised state, bandemia and physical exam, will continue w/ IV Abx for underlying pneumonia. COPD: Chronic Respiratory Failure w/ Acute Exacerbation. Moderate. +wheezing , Symbicort, DuoNeb, monitor O2. Alcohol Abuse: Chronic. Drinks 8 beers/day. CIWA, Seizure Precautions, MVT/ Thiamine/Folate DVT Prophylaxis: Lovenox CM consulted for d/c planning as needed Discussed with the patient, nurse
--- NOTE | 2018-03-16 13:09 | ECG ---
Date Performed: 03/15/2018 Time Performed: 15:27:54 PTAGE: 62 years EKG: Sinus rhythm with sinus arrythmia, rate 96 Normal ECG no prior for comparison NO PREVIOUS TRACING DOCTOR: Varghese Gutierrez Interpretating Date/Time 03/16/2018 13:08:15
--- NOTE | 2018-03-16 17:42 | P.CON ---
History of Present Illness Service: Radiation oncology Consult date: 03/16/18 Reason for Consult: Back pain and continuation of care Primary Care Provider: Emi Stone Chief Complaint: Lung carcinoma status post surgical resection/back pain History of Present Illness: This a 62-year-old white female that has been receiving concomitant chemoradiation therapy for the diagnosis of right lung carcinoma. Patient has received a total of 15 treatments out of a total of 33 treatments. Yesterday the patient came into the department with intractable back pain and shortness of breath as a result of this he was transported to the ER where he was admitted. Now consult has been placed for continuation of care. Review of Systems Constitutional: Reports body ache(s), Reports fatigue, Reports lack of energy Eyes: Denies blind spots, Denies blurry vision, Denies bulging eyes, Denies change in vision, Denies double vision, Denies discharge, Denies dry eyes, Denies floaters, Denies irritation, Denies itchy eyes, Denies loss of vision, Denies pain, Denies requires corrective lenses, Denies sensitivity to light, Denies other Ears, Nose, Mouth, and Throat: Denies abnormal hearing, Denies bleeding gums, Denies bad breath, Denies change in voice, Denies dental pain, Denies difficulty swallowing, Denies dizziness, Denies dry mouth, Denies ear discharge , Denies ear pain, Denies facial pain, Denies headache(s), Denies hearing loss, Denies hoarseness, Denies lip swelling, Denies nosebleed, Denies mouth lesions, Denies mouth pain, Denies nasal congestion, Denies nasal discharge, Denies nasal obstruction, Denies nasal trauma, Denies neck lump, Denies neck pain, Denies nose pain, Denies pain with swallowing, Denies poor balance, Denies post nasal drip, Denies ringing in the ears, Denies sinus pain, Denies sinus pressure , Denies sore throat, Denies throat swelling, Denies tongue swelling, Denies other Cardiovascular: Reports foot swelling, Reports shortness of breath, Reports shortness of breath with activity Respiratory: Reports chest congestion, Reports cough, Reports shortness of breath, Reports shortness of breath with activity Comments: Patient has decreased ventilatory respiratory effort bilaterally especially in the right upper lobe. Gastrointestinal: Denies abdominal pain, Denies belching, Denies black, tarry stools, Denies bloating, Denies bright, red blood in stools, Denies change in bowel habits, Denies constant urge to pass stool, Denies change in stools, Denies coffee ground vomit, Denies constipation, Denies cramping, Denies difficulty swallowing, Denies excessive passing of gas, Denies feeling full early, Denies heartburn, Denies incontinent of stools, Denies loose stools, Denies nausea, Denies pain with swallowing, Denies vomiting, Denies vomiting blood, Denies other Genitourinary: Denies blood in semen, Denies blood in urine, Denies decreased urination, Denies difficulty urinating, Denies difficulty with ejaculations, Denies erectile dysfunction, Denies genital lesions, Denies genital pain, Denies painful urination, Denies side pain, Denies frequent nighttime urination , Denies painful ejaculations, Denies penile discharge, Denies scrotal swelling , Denies testicle lump, Denies testicle pain, Denies urinary frequency, Denies urinary hesitancy, Denies urinary incontinence, Denies urinary urgency, Denies other Musculoskeletal: Reports back pain Skin/Breast: Denies acne, Denies bleeding lesions, Denies boil, Denies breast swelling, Denies breast skin changes, Denies breast pain, Denies breast lump, Denies change in breast shape, Denies change in hair, Denies change in skin color, Denies changing lesions, Denies dry skin, Denies excessive hair growth, Denies hair loss, Denies itching, Denies lesions, Denies nail changes, Denies new lesions, Denies nipple discharge, Denies non-healing lesions, Denies redness , Denies sensitivity to light, Denies rash, Denies skin pain, Denies skin ulcer , Denies sores, Denies stretch samuel, Denies unusual bruising, Denies wounds, Denies yellowing of the skin, Denies other Neurologic: Denies abnormal hearing, Denies abnormal movements, Denies abnormal speech, Denies abnormal walking, Denies behavioral changes, Denies burning sensations, Denies confusion, Denies dizziness, Denies fainting, Denies frequent falls, Denies headache(s), Denies lack of coordination, Denies localized weakness, Denies loss of vision, Denies memory loss, Denies numbness, Denies other visual disturbances, Denies radiating pain, Denies restless legs, Denies convulsions, Denies seizure-like activity, Denies sensory deficit, Denies tingling, Denies tingling/numbness/burning sensations, Denies tremor(s), Denies unsteadiness, Denies weakness, Denies other Psychiatric: Denies abnormal sleep pattern, Denies anxiety, Denies behavioral changes, Denies change in appetite, Denies change in sex drive, Denies confusion , Denies depression, Denies difficulty concentrating, Denies hearing things others do not hear, Denies hopelessness, Denies irritability, Denies lack of enjoyment, Denies memory loss, Denies mood swings, Denies panic attacks, Denies paranoia, Denies seeing things others do not see, Denies sensing things others do not sense, Denies tactile hallucinations, Denies thoughts of hurting/killing others, Denies thoughts of hurting/killing yourself, Denies other Endocrine: Denies cold intolerance, Denies excessive sweating, Denies flushing, Denies heat intolerance, Denies increased hunger, Denies increased thirst, Denies increased urination, Denies rapid, pounding, or irregular heartbeat, Denies other Hematologic/Lymphatic: Denies easy bleeding, Denies easy bruising, Denies enlarged lymph nodes, Denies other Allergic/Immunologic: Denies GI upset with certain foods, Denies hives, Denies itchy eyes, Denies lip swelling, Denies seasonal runny nose, Denies throat swelling, Denies tongue swelling, Denies wheezing, Denies other PMFSH - History History Provided By: Patient - Medical History Medical History: Medical History (Last Reviewed 03/15/18 @ 15:22 by DIDIER Cast) Mass of upper lobe of right lung (Acute) H/O chronic pancreatitis (Acute) Femoral artery occlusion, right (Acute) MRSA (methicillin resistant Staphylococcus aureus) (Acute) Homelessness (Acute) Tobacco abuse (Acute) Alcohol abuse (Acute) COPD (chronic obstructive pulmonary disease) (Acute) Hyperlipemia (Acute) Hypertension (Acute) - Surgical History Surgical History: Surgical History (Last Reviewed 03/15/18 @ 14:52 by Marina Carrasco) H/O hand surgery (Acute) History of tonsillectomy (Acute) Status post bilateral LASIK surgery (Acute) 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) - Family History Family History: Family History (Last Reviewed 03/08/18 @ 14:47 by Hayley Atkins) Mother Unknown family medical history Father Cancer - Tobacco History Second Hand Smoke Exposure: No Tobacco Use In Past 30 Days: No Smoking Status: Former smoker Tobacco Type: Cigarettes Packs Per Day: 1 years: 35 - Alcohol History How Often Do You Have a Drink Containing Alcohol: 4 or more times a week - Substance Use History Substance History: No History of Abuse - Travel History Recent Travel in the [facility] Within the Last 8 Weeks: No Recent Travel Out of the Country Within the Last 8 Weeks: No - Immunization History Tetanus Immunization: <5 Years Medications and Allergies Active Medications: Active Medications Acetaminophen (Tylenol) 650 mg PO Q4H PRN PRN Reason: Headache, fever, pain 1-4 Al Hydroxide/Mg Hydroxide (Milk Of Magnyanira Liq) 30 ml PO Q12H PRN PRN Reason: Mild Constipation Albuterol (Duoneb Neb (Prn)) 1 ampul NEB Q4HR NEB PRN PRN Reason: SOB/WHEEZING Last Admin: 03/16/18 13:26 Dose: 1 ampul Bisacodyl (Dulcolax Supp) 10 mg RECTAL DAILY PRN PRN Reason: SEVERE CONSITIPATION Budesonide/Formoterol Fumarate (Symbicort 160/4.5 Mcg Inh) 2 puff INH BID [facility] Last Admin: 03/16/18 09:14 Dose: 2 puff Clopidogrel Bisulfate (Plavix) 75 mg PO DAILY [facility] Last Admin: 03/16/18 09:14 Dose: 75 mg Cyclobenzaprine HCl (Flexeril) 10 mg PO Q8HR [facility] Last Admin: 03/16/18 13:15 Dose: 10 mg Enoxaparin Sodium (Lovenox Inj) 40 mg SQ Q24H [facility] Last Admin: 03/15/18 20:46 Dose: 40 mg Flumazenil (Romazecon Inj) 0.2 mg IV.PUSH Q1M PRN PRN Reason: OVERSEDATION Folic Acid (Folic Acid) 1 mg PO DAILY [facility] Stop: 03/21/18 08:59 Last Admin: 03/16/18 09:14 Dose: 1 mg Guaifenesin (Mucinex Er) 600 mg PO BID [facility] Last Admin: 03/16/18 09:14 Dose: 600 mg Haloperidol Lactate (Haldol Inj) 1 mg IV.PUSH Q15M PRN PRN Reason: for severe agitation Hydromorphone HCl (Dilaudid Pf Inj) 1 mg IV.PUSH Q4H PRN PRN Reason: PAIN 6-10 Last Admin: 03/16/18 17:18 Dose: 1 mg Sodium Chloride (Ns Inj) 1,000 mls @ 0 mls/hr IV.SIG BOLUS [facility] Last Infusion: 03/15/18 16:30 Dose: Infused Cefepime HCl 1,000 mg/ Sodium (Chloride) 100 mls @ 200 mls/hr IV.SIG Q12H [facility] Last Infusion: 03/16/18 09:54 Dose: Infused Lactulose (Lactulose Liq) 30 ml PO DAILY PRN PRN Reason: SEVERE CONSITIPATION Lorazepam (Ativan) 1 mg PO Q4H PRN PRN Reason: for CIWA 8-10 Lorazepam (Ativan) 2 mg PO Q2H PRN PRN Reason: for CIWA 11-14 Lorazepam (Ativan Inj) 2 mg IV.PUSH Q1H PRN PRN Reason: for CIWA 15-20 Lorazepam (Ativan Inj) 2 mg IV.PUSH Q15M PRN PRN Reason: for CIWA > 20 Lorazepam (Ativan Inj) 1 mg IV.PUSH Q4H PRN PRN Reason: for CIWA 8-10 Lorazepam (Ativan Inj) 2 mg IV.PUSH Q2H PRN PRN Reason: for CIWA 11-14 Multivitamins/Minerals (Theragran-M) 1 tab PO DAILY [facility] Stop: 03/21/18 08:59 Last Admin: 03/16/18 09:14 Dose: 1 tab Ondansetron HCl (Zofran Inj) 4 mg IV.PUSH Q6H PRN PRN Reason: NAUSEA OR VOMITING Pantoprazole Sodium (Protonix) 40 mg PO HS [facility] Last Admin: 03/15/18 20:46 Dose: 40 mg Sennosides (Senokot) 17.2 mg PO Q12H PRN PRN Reason: Moderate Constipation Tamsulosin HCl (Flomax) 0.4 mg PO DAILY [facility] Last Admin: 03/16/18 09:14 Dose: 0.4 mg Thiamine HCl (Vitamin B1) 100 mg PO DAILY [facility] Last Admin: 03/16/18 09:14 Dose: 100 mg Torsemide (Demadex) 10 mg PO BID@0900,1800 [facility] Last Admin: 03/16/18 17:18 Dose: 10 mg Allergies Allergy/AdvReac Type Severity Reaction Status Date / Time codeine Allergy Severe Hives Verified 03/15/18 15:07 Home Medications Medication Instructions Recorded Confirmed Type albuterol sulfate [Proventil HFA] 2 puff INHALATION BID 03/08/18 03/15/18 History albuterol sulfate [Ventolin HFA] 2 puff INHALATION Q4-6H PRN 03/08/18 03/15/18 History budesonide-formoterol [Symbicort] 2 puff INHALATION BID 03/08/18 03/15/18 History hydrocodone-acetaminophen [[place]] 1 tab PO Q4-6H PRN 03/08/18 03/15/18 History prednisone 10 mg PO DIRECTED 03/08/18 03/15/18 History ibuprofen 800 mg PO TID 03/15/18 03/15/18 History lorazepam 1 mg PO BID 03/15/18 03/15/18 History Physical Exam Vital signs: Vital Signs 03/15/18 22:37 03/16/18 00:00 03/16/18 01:03 Temperature 98.3 F 97.8 F Pulse Rate 78 92 H Respiratory Rate 18 20 Blood Pressure 133/72 125/61 Pulse Oximetry 98 98 93 L 03/16/18 03:25 03/16/18 07:39 03/16/18 12:00 Temperature 97.5 F L 98.0 F 97.9 F Pulse Rate 87 96 H 99 H Respiratory Rate 19 18 22 Blood Pressure 128/78 115/77 124/78 Pulse Oximetry 92 L 91 L 96 03/16/18 13:27 03/16/18 16:00 Temperature 97.7 F Pulse Rate 94 H 99 H Respiratory Rate 16 20 Blood Pressure 108/73 Pulse Oximetry 95 Intake & Output 03/15/18 03/16/18 03/16/18 18:59 06:59 18:59 Intake Total 1100 / 1100 610 / 610 100 / 100 Output Total 660 / 660 Balance 1100 / 1100 -50 / -50 100 / 100 Weight 99.79 kg Intake: IV 1100 / 1100 250 / 250 100 / 100 Azithromycin Inj 500 MG In NS 250 / 250 Inj 250 ML @ 250 mls/hr IV.SIG ONCE ONE Rx#:[id number] Maxipime Inj 1,000 MG In NS Inj 100 / 100 100 ML @ 200 mls/hr IV.SIG Q12H IAN Rx#:[id number] NS Inj 1,000 ML @ Wide Open IV. 1000 / 1000 SIG BOLUS IAN Rx#:[id number] Rocephin Inj 1,000 MG In NS Inj 100 / 100 100 ML @ 200 mls/hr IV.SIG ONCE ONE Rx#:[id number] Oral 360 / 360 Output: Urine 660 / 660 Other: Date of Last Bowel Movement 03/15/18 03/15/18 Weight On Admission 99.79 kg - Constitutional moderate distress, morbidly obese, cooperative - Routine HEENT Exam Head: Present: normocephalic, atraumatic Eye: Present: EOMI ENT: Present: mucous membranes moist, external ear normal - Routine Neck Exam Present: supple - Routine Respiratory Exam Comments: There is decreased ventilatory respiratory effort which is bilateral but more so in the right upper lobe. Lungs appear clear to auscultation. - Routine Cardiovascular Exam Comments: Heart was regular in rate and rhythm at time of evaluation. 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 Patient with possible metastasis to the lumbar spine. Plan: I advised the patient that we will continue with care and radiation therapy on his lung. I have discussed the case with Dr. Ornelas from interventional radiology in regards to the possibility of doing a biopsy of the lumbar spine as well as sedimentation and bone ablation while the patient is in the hospital. Once this is performed then will move forward with palliative radiotherapy to the spine. Patient advised if I could be of any further assistance or to please let me know.
[2018-03-16] MEDS: Enoxaparin Inj 40 MG/0.4 ML Syringe SQ SCH (21:03)
[2018-03-16] MEDS: HYDROmorphone PF Inj 1 MG/ML Ampul IV.PUSH PRN (23:25)
[2018-03-17] MEDS: HYDROmorphone PF Inj 1 MG/ML Ampul IV.PUSH PRN ×8 (02:46→23:54)
[2018-03-17] MEDS: Folic Acid 1 MG Tablet PO SCH (08:01)
[2018-03-17] MEDS: Multivitamin/Minerals Therapeutic Tablet PO SCH (08:01)
[2018-03-17] MEDS: guaiFENesin 600 MG ER Tablet PO SCH ×2 (08:01→20:41)
[2018-03-17] MEDS: Budesonide-Formoterol 160/4.5 MCG 6 GM Inhaler INH SCH ×2 (08:04→20:11)
--- NOTE | 2018-03-17 08:05 | P.CON ---
History of Present Illness Service: Hematology/oncology. Consult date: 03/17/18 Reason for Consult: Squamous cell carcinoma of the lung with possible metastases. Primary Care Provider: Emi Stone Chief Complaint: Severe back pain, difficulty breathing. History of Present Illness: Mr. Garcia is a 62-year-old man with an extensive past history of tobaccoism and alcohol abuse. 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 He initially presented in November 2017 with complaints of difficulty breathing and persistent cough. Initial CT imaging performed on 12/06/2017 indicated dense consolidation of the right upper lobe with an abrupt cut off of the right upper lobe bronchus concerning for an endobronchial mass. The patient initially underwent bronchoscopy with identification of a malignant appearing mass in the right upper lobe, cytology initially was noted to be negative. The patient did have significant bleeding during the procedure. He was subsequently recommended open biopsy, this was performed by Dr. Serrano on 01/05/2018. The patient had clinical evidence of mediastinal donna involvement (N2) and based on CT imaging of the abdomen pelvis had no evidence of distal metastases. He was a candidate for definitive combined modality chemoradiotherapy followed by immunotherapy maintenance. The surgery was performed purely to obtain a tissue diagnosis. After undergoing initial thoracotomy with biopsy and tumor sampling, he was initiated on combined modality chemoradiotherapy in January 2018. For the first 2-3 weeks of treatment he was in the hospital, following which she was discharged to a motel (he is homeless and the hospital arrange for a motel for him to stay in). For the past 2 months this patient has essentially been in and out of the hospital for various reasons but mostly related to difficulty breathing. His most recent 2 hospitalizations were related to reaccumulating right-sided pleural effusions, he underwent thoracentesis on 2 separate occasions, cytology was negative for metastatic disease or malignant cells. On 03/15/2018 the patient presented to [facility] with complaints of severe back pain, he reports the pain is centered in his right flank but seems to involve the entire back. He points towards his mid lower back. On 03/08/2018 patient underwent an MRI of the lumbar spine at [facility], this was performed with and without contrast. He was found to have abnormalities involving the L3 vertebral body, findings were concerning for metastatic disease. It appears this area of abnormality corresponds to his pain. The patient has been admitted to this facility for management of his back pain and workup of possible metastatic disease. Review of Systems Constitutional: Reports fatigue, Reports lack of energy, Reports weakness, Reports weight gain, Denies anorexia, Denies chills, Denies excessive sweating, Denies fever(s), Denies headache(s), Denies increased appetite, Denies malaise, Denies night sweats, Denies weight loss Eyes: Denies change in vision Ears, Nose, Mouth, and Throat: Denies abnormal hearing, Denies dental pain, Denies difficulty swallowing, Denies pain with swallowing, Denies sore throat, Denies throat swelling Cardiovascular: Reports chest pain, Reports leg swelling, Reports shortness of breath with activity, Reports shortness of breath causing sudden awakening, Denies shortness of breath when lying down Respiratory: Reports chest congestion, Reports cough, Reports shortness of breath, Denies coughing up blood, Denies excessive phlegm production Gastrointestinal: Denies abdominal pain, Denies vomiting Genitourinary: Denies blood in urine Musculoskeletal: Reports back pain, Reports body aches, Reports decreased muscle mass, Denies abnormal walking, Denies joint pain Skin/Breast: Denies yellowing of the skin Neurologic: Reports abnormal walking, Denies abnormal hearing, Denies abnormal speech Psychiatric: Reports anxiety, Denies change in appetite, Denies confusion, Denies depression, Denies panic attacks Endocrine: Denies cold intolerance Hematologic/Lymphatic: Denies easy bleeding Allergic/Immunologic: Denies GI upset with certain foods PMFSH - History History Provided By: Patient - Medical History Medical History: Medical History (Last Updated 03/17/18 @ 07:55 by Franklin Kovacs MD) Squamous cell carcinoma of lung, stage III (Acute) H/O chronic pancreatitis (Acute) Femoral artery occlusion, right (Acute) MRSA (methicillin resistant Staphylococcus aureus) (Acute) Homelessness (Acute) Tobacco abuse (Acute) Alcohol abuse (Acute) COPD (chronic obstructive pulmonary disease) (Acute) Hyperlipemia (Acute) Hypertension (Acute) Pleural effusion - Surgical History Surgical History: Surgical History (Last Updated 03/17/18 @ 07:55 by Franklin Kovacs MD) H/O hand surgery (Acute) History of tonsillectomy (Acute) Status post bilateral LASIK surgery (Acute) 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) History of thoracentesis History of thoracotomy - Family History Family History: Family History (Last Reviewed 03/17/18 @ 07:55 by Franklin Kovacs MD) Mother Unknown family medical history Father Cancer - Social History I have reviewed the patient's Social History: Yes - Tobacco History Second Hand Smoke Exposure: No Tobacco Use In Past 30 Days: No Smoking Status: Current some day smoker Tobacco Type: Cigarettes Packs Per Day: 1 years: 35 - Alcohol History How Often Do You Have a Drink Containing Alcohol: 4 or more times a week - Substance Use History Substance History: Active Abuse (Alcohol abuse.) - Travel History Recent Travel in the [facility] Within the Last 8 Weeks: No Recent Travel Out of the Country Within the Last 8 Weeks: No - Immunization History Tetanus Immunization: <5 Years Medications and Allergies Active Medications: Active Medications Acetaminophen (Tylenol) 650 mg PO Q4H PRN PRN Reason: Headache, fever, pain 1-4 Al Hydroxide/Mg Hydroxide (Milk Of Magnyanira Liq) 30 ml PO Q12H PRN PRN Reason: Mild Constipation Last Admin: 03/16/18 21:03 Dose: 30 ml Albuterol (Duoneb Neb (Prn)) 1 ampul NEB Q4HR NEB PRN PRN Reason: SOB/WHEEZING Last Admin: 03/16/18 13:26 Dose: 1 ampul Bisacodyl (Dulcolax Supp) 10 mg RECTAL DAILY PRN PRN Reason: SEVERE CONSITIPATION Budesonide/Formoterol Fumarate (Symbicort 160/4.5 Mcg Inh) 2 puff INH BID [facility] Last Admin: 03/16/18 21:04 Dose: 2 puff Clopidogrel Bisulfate (Plavix) 75 mg PO DAILY [facility] Last Admin: 03/16/18 09:14 Dose: 75 mg Cyclobenzaprine HCl (Flexeril) 10 mg PO Q8HR [facility] Last Admin: 03/17/18 05:42 Dose: 10 mg Enoxaparin Sodium (Lovenox Inj) 40 mg SQ Q24H [facility] Last Admin: 03/16/18 21:03 Dose: 40 mg Flumazenil (Romazecon Inj) 0.2 mg IV.PUSH Q1M PRN PRN Reason: OVERSEDATION Folic Acid (Folic Acid) 1 mg PO DAILY [facility] Stop: 03/21/18 08:59 Last Admin: 03/16/18 09:14 Dose: 1 mg Guaifenesin (Mucinex Er) 600 mg PO BID [facility] Last Admin: 03/16/18 21:03 Dose: 600 mg Haloperidol Lactate (Haldol Inj) 1 mg IV.PUSH Q15M PRN PRN Reason: for severe agitation Hydromorphone HCl (Dilaudid Pf Inj) 1 mg IV.PUSH Q4H PRN PRN Reason: PAIN 6-10 Last Admin: 03/16/18 21:03 Dose: 1 mg Hydromorphone HCl (Dilaudid Pf Inj) 1 mg IV.PUSH Q3H PRN PRN Reason: PAIN 6-10 Last Admin: 03/17/18 05:42 Dose: 1 mg Sodium Chloride (Ns Inj) 1,000 mls @ 0 mls/hr IV.SIG BOLUS [facility] Last Infusion: 03/15/18 16:30 Dose: Infused Cefepime HCl 1,000 mg/ Sodium (Chloride) 100 mls @ 200 mls/hr IV.SIG Q12H [facility] Last Infusion: 03/16/18 21:42 Dose: Infused Lactulose (Lactulose Liq) 30 ml PO DAILY PRN PRN Reason: SEVERE CONSITIPATION Lorazepam (Ativan) 1 mg PO Q4H PRN PRN Reason: for CIWA 8-10 Lorazepam (Ativan) 2 mg PO Q2H PRN PRN Reason: for CIWA 11-14 Lorazepam (Ativan Inj) 2 mg IV.PUSH Q1H PRN PRN Reason: for CIWA 15-20 Lorazepam (Ativan Inj) 2 mg IV.PUSH Q15M PRN PRN Reason: for CIWA > 20 Lorazepam (Ativan Inj) 1 mg IV.PUSH Q4H PRN PRN Reason: for CIWA 8-10 Lorazepam (Ativan Inj) 2 mg IV.PUSH Q2H PRN PRN Reason: for CIWA 11-14 Multivitamins/Minerals (Theragran-M) 1 tab PO DAILY [facility] Stop: 03/21/18 08:59 Last Admin: 03/16/18 09:14 Dose: 1 tab Ondansetron HCl (Zofran Inj) 4 mg IV.PUSH Q6H PRN PRN Reason: NAUSEA OR VOMITING Pantoprazole Sodium (Protonix) 40 mg PO HS [facility] Last Admin: 03/16/18 21:03 Dose: 40 mg Sennosides (Senokot) 17.2 mg PO Q12H PRN PRN Reason: Moderate Constipation Tamsulosin HCl (Flomax) 0.4 mg PO DAILY [facility] Last Admin: 03/16/18 09:14 Dose: 0.4 mg Thiamine HCl (Vitamin B1) 100 mg PO DAILY [facility] Last Admin: 03/16/18 09:14 Dose: 100 mg Torsemide (Demadex) 10 mg PO BID@0900,1800 [facility] Last Admin: 03/16/18 17:18 Dose: 10 mg Allergies Allergy/AdvReac Type Severity Reaction Status Date / Time codeine Allergy Severe Hives Verified 03/15/18 15:07 Home Medications Medication Instructions Recorded Confirmed Type albuterol sulfate [Proventil HFA] 2 puff INHALATION BID 03/08/18 03/15/18 History albuterol sulfate [Ventolin HFA] 2 puff INHALATION Q4-6H PRN 03/08/18 03/15/18 History budesonide-formoterol [Symbicort] 2 puff INHALATION BID 03/08/18 03/15/18 History hydrocodone-acetaminophen [[place]] 1 tab PO Q4-6H PRN 03/08/18 03/15/18 History prednisone 10 mg PO DIRECTED 03/08/18 03/15/18 History ibuprofen 800 mg PO TID 03/15/18 03/15/18 History lorazepam 1 mg PO BID 03/15/18 03/15/18 History Physical Exam Vital signs: Vital Signs 03/16/18 12:00 03/16/18 13:27 03/16/18 16:00 Temperature 97.9 F 97.7 F Pulse Rate 99 H 94 H 99 H Respiratory Rate 22 16 20 Blood Pressure 124/78 108/73 Pulse Oximetry 96 95 03/16/18 19:45 03/16/18 21:40 03/17/18 00:00 Temperature 97.7 F 98.3 F Pulse Rate 101 H 107 H Respiratory Rate 20 18 18 Blood Pressure 125/76 102/71 Pulse Oximetry 92 L 92 L 03/17/18 04:00 Temperature 98.2 F Pulse Rate 105 H Respiratory Rate 18 Blood Pressure 116/80 Pulse Oximetry 94 L Intake & Output 03/16/18 03/17/18 03/17/18 18:59 06:59 18:59 Intake Total 100 / 100 620 / 620 Output Total 1225 / 1225 Balance 100 / 100 -605 / -605 Intake: IV 100 / 100 100 / 100 Maxipime Inj 1,000 MG In NS Inj 100 / 100 100 / 100 100 ML @ 200 mls/hr IV.SIG Q12H [facility] Rx#:[id number] Oral 520 / 520 Output: Urine 1225 / 1225 Other: Date of Last Bowel Movement 03/15/18 03/12/18 Narrative: Middle-aged male, sitting up in bed, appears to be no acute distress. He has a disheveled appearance. He appears to be comfortably resting in bed. When he moves to sit up, it appears he is in pain and has some difficulty. Examination of the back, no midline tenderness, he does have right-sided flank tenderness. - Constitutional no acute distress - Routine HEENT Exam Head: Present: normocephalic Eye: Present: EOMI, PERRL ENT: Absent: mucous membranes moist - Routine Neck Exam Absent: supple - Routine Respiratory Exam Absent: accessory muscle use Comments: Decreased right basilar breath sounds. Prolonged expiratory phase. - Routine Cardiovascular Exam Present: RRR, S1, S2 - Routine Abdominal Exam Present: soft. Absent: tenderness, distended, rebound - Routine Extremities Exam Absent: cyanosis, clubbing, edema, full ROM - Routine Skin Exam Present: intact. Absent: erythema, wounds, rash - Routine Neurological Exam Present: alert, oriented X3, CN II-XII intact. Absent: sensory deficit, motor deficit - Detailed Neurological Exam: Coma Scale Eye Opening: Spontaneous Verbal Response: Oriented Motor Response: Obey commands Dash Coma Scale Total: 15 - Routine Psychiatric Exam Present: normal affect Assessment and Plan - Plan Mr. 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 He had no evidence of distal metastases on initial staging studies performed in November 2017. Thoracotomy with open biopsy was required for sampling of the central lesion as bronchoscopy failed to yield diagnostic material and percutaneous sampling was felt to be technically difficult due to the central location of the lesion. Once a diagnosis of squamous cell carcinoma with a small component of adenocarcinoma was established he was initiated on combined modality chemoradiotherapy in January 2018. Barriers to providing adequate dose density of treatment has been his homelessness and difficulty following up in clinic due to issues with transportation. The patient has thus far received 2 doses of weekly carboplatin and Taxol, both these doses were delivered when he was in the hospital. He has thus far received approximately half of his scheduled fractions of radiation. In mid February 2018 he presented to the hospital with complaints of back pain, an MRI was performed and he was found to have findings concerning for metastatic disease involving the L3 vertebral body. He was discharged home and was advised outpatient follow-up. He presents again with similar complaints. Recommendations: 1. Squamous cell carcinoma of the right lung associated with a small component of adenocarcinoma: Patient has T3 (due to findings of separate tumor deposit within the same lobe) N2 (radiographic evidence of mediastinal donna involvement ) Mx (suspected metastatic disease to the vertebral bodies): At least stage IIIb disease possible stage IV disease. Patient has been on definitive dose (curative intention) combined modality chemoradiotherapy up until now. Findings of MRI lumbar spine noted, I am concerned he may have metastatic disease to the L3 vertebral body. I have ordered a CT-guided biopsy of the L3 vertebral body with possible kyphoplasty as well. Should metastatic disease be confirmed, treatment goals will be more palliative. Unfortunately, due to his lack of insurance and homelessness I have not been able to obtain a PET CT scan in the outpatient setting. Should metastatic disease be identified within the L3 vertebral body, at least a bone scan (nuclear medicine) can be obtained in the hospital. If he has multifocal metastatic disease I would advise palliative systemic therapy. If he has oligometastatic disease it may be reasonable to treat his thoracic sick disease definitively with palliative radiation to the L3 vertebral body followed by maintenance palliative systemic chemotherapy. If metastatic disease is identified, I will order PDL 1 testing as well as additional mutational analyses on his tumor to help tailor treatment to his individual disease. 2. Right-sided pleural effusion: This is been tapped multiple times, this has reaccumulated to a lesser degree on CT scan of the thorax performed on 2017. There has been no evidence of malignant cells identified in the pleural effusion. 3. Pain control: Currently with opioids. Oncology will follow along with you.
[2018-03-17 11:57] LABS: Activated Partial Thrombo Time 24.2 sec (24.3-30.1); Prothrombin Time 10.2 sec (9.8-11.6)
[2018-03-17 12:02] LABS: Magnesium 1.9 mg/dL (1.5-2.5); Phosphorus 3.9 mg/dL (2.5-4.9)
--- NOTE | 2018-03-17 13:31 | P.PN ---
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 Once a diagnosis of squamous cell carcinoma with a small component of adenocarcinoma was established he was initiated on combined modality chemoradiotherapy in January 2018. but patient Homeless made difficult to give management, Suspected metastatic disease to the vertebral bodies, MRI lumbar spine noted, I am concerned he may have metastatic disease to the L3 vertebral body. Ordered CT guided biopsy of the L3 vertebral body with possible Kyphoplasty. Seen in his bedroom stable awaiting for Lumbar biopsy replacing electrolyte and following, no nausea, vomit or diarrhea. Physical Exam Vital signs: Vital Signs 03/16/18 13:27 03/16/18 16:00 03/16/18 19:45 Temperature 97.7 F 97.7 F Pulse Rate 94 H 99 H 101 H Respiratory Rate 16 20 20 Blood Pressure 108/73 125/76 Pulse Oximetry 95 92 L 03/16/18 21:40 03/17/18 00:00 03/17/18 04:00 Temperature 98.3 F 98.2 F Pulse Rate 107 H 105 H Respiratory Rate 18 18 18 Blood Pressure 102/71 116/80 Pulse Oximetry 92 L 94 L 03/17/18 08:00 03/17/18 11:15 Temperature 98.3 F 98.4 F Pulse Rate 101 H 97 H Respiratory Rate 22 22 Blood Pressure 127/84 110/71 Pulse Oximetry 92 L 97 Intake & Output 03/16/18 03/17/18 03/17/18 18:59 06:59 18:59 Intake Total 100 / 100 620 / 620 100 / 100 Output Total 1225 / 1225 Balance 100 / 100 -605 / -605 100 / 100 Intake: IV 100 / 100 100 / 100 100 / 100 Maxipime Inj 1,000 MG In NS Inj 100 / 100 100 / 100 100 / 100 100 ML @ 200 mls/hr IV.SIG Q12H [facility] Rx#:[id number] Oral 520 / 520 Output: Urine 1225 / 1225 Other: Date of Last Bowel Movement 03/15/18 03/12/18 03/12/18 Narrative: GENERAL: Middle-aged male. appears in nad. CARDIOVASCULAR: Regular rate and rhythm. No obvious murmurs to auscultation. No chest tenderness to palpation. RESPIRATORY: Coarse breath sounds, occasional wheezing. Breath sounds equal bilaterally. GASTROINTESTINAL: Abdomen soft, non-tender, nondistended. BS normal. MUSCULOSKELETAL: Extremities without clubbing, cyanosis, or edema. No obvious deformities. NEUROLOGICAL: Awake, alert and oriented x4. No focal neurologic deficits. Moving both upper and lower extremities spontaneously. PSYCHIATRIC: Appropriate mood and affect. Insight and judgment normal. - Routine HEENT Exam Head: Absent: facial swelling Results - Labs CBC & Chem 7: 03/15/18 15:00 03/15/18 15:00 Laboratory Results - last 24 hr 03/16/18 03/16/18 03/17/18 15:51 21:16 11:30 PT INR APTT POC Glucose 170 H 168 H Phosphorus 3.9 Magnesium 1.9 03/17/18 11:30 PT 10.2 INR 1.0 APTT 24.2 L POC Glucose Phosphorus Magnesium - Imaging Chest CTA 03/15/18 14:42 CONCLUSION: 1. No evidence for pulmonary embolism. 2. Moderate right pleural effusion. 3. Scattered parenchymal densities throughout the right lung could be infectious or inflammatory. 4. Parenchymal lesion in the right lower lung measures 2.7 cm could be recurrent carcinoma. Outpatient PET CT scan recommended for further characterization. Venous Doppler Study 03/15/18 14:42 CONCLUSION: 1. No evidence of DVT. Chest X-Ray 03/15/18 14:43 CONCLUSION: 1. Persistent presumed postsurgical volume loss with airspace consolidation in the right hilum and lower lung zone. 2. No significant interval change or acute abnormality. - Procedures None Assessment and Plan - Assessment (1) Intractable back pain Code(s): M54.9 - Dorsalgia, unspecified Status: Acute (2) Lung cancer Code(s): C34.90 - Malignant neoplasm of unspecified part of unspecified bronchus or lung Status: Acute (3) COPD (chronic obstructive pulmonary disease) Code(s): J44.9 - Chronic obstructive pulmonary disease, unspecified Status: Acute (4) Alcohol abuse Code(s): F10.10 - Alcohol abuse, uncomplicated Status: Acute (5) Pleural effusion Code(s): J90 - Pleural effusion, not elsewhere classified Status: Acute (6) PNA (pneumonia) Code(s): J18.9 - Pneumonia, unspecified organism Status: Acute - Plan 1. Intractable Back Pain H/o Lung CA with Mets MRI L-Spine 03/08/18 w/ L3 lesion, likely metastatic, records specialist following asked for CT Guided Biopsy and Kyphoplasty and recommended for Palliative Radiation therapy after procedure performed. Continue analgesics/antiemetics as needed, add Flexeril prn. PT for eval/tx 2. Lung CA with Mets, read #1 3. Recurrent Right Pleural Effusion Previous admit 02/18-02/23/18 s/p thoracentesis w/ 600cc removal, cytology negative. CTA Pulm w/ moderate right pleural effusion, Thoracentesis as needed. 4. PNA: CXR w/ possible pneumonia, CTA Chest negative for PE, +parenchymal densities possibly infectious, in light of immunocompromised state, bandemia and physical exam, will continue w/ IV Abx for underlying pneumonia. 5. COPD: Chronic Respiratory Failure w/ Acute Exacerbation. Moderate. + wheezing, Symbicort, DuoNeb, monitor O2. 6. Alcohol Abuse: Chronic. Drinks 8 beers/day. CIWA, Seizure Precautions, MVT /Thiamine/Folate, strongly recommended to stop drinking behavior. 7. Electrolyte derangement replaced and following. DVT Prophylaxis: Lovenox CM consulted for d/c planning as needed Code Status: Full Code. Discussed Condition With: patient and Nurse Miss Soto Discharge Planning: Once cleared by Oncology and Radiation specialist.
[2018-03-18] MEDS: HYDROmorphone PF Inj 1 MG/ML Ampul IV.PUSH PRN ×4 (04:50→20:49)
--- NOTE | 2018-03-18 08:06 | P.PNONC ---
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 Reports his breathing is "okay" Has been unable to ambulate due to pain Objective Vital Signs/Intake & Output: Vital Signs 03/17/18 08:00 03/17/18 11:15 03/17/18 15:50 Temperature 98.3 F 98.4 F 98.8 F Pulse Rate 101 H 97 H 118 H Respiratory Rate 22 22 24 Blood Pressure 127/84 110/71 113/72 Pulse Oximetry 92 L 97 95 03/17/18 20:00 03/18/18 00:00 03/18/18 04:00 Temperature 99.7 F H 98.7 F 98.5 F Pulse Rate 114 H 106 H 114 H Respiratory Rate 24 22 24 Blood Pressure 113/77 128/75 111/7 L Pulse Oximetry 94 L 91 L 92 L Intake & Output 03/17/18 03/18/18 03/18/18 18:59 06:59 18:59 Intake Total 100 / 100 100 / 100 240 / 240 Output Total 950 / 950 Balance 100 / 100 100 / 100 -710 / -710 Weight 213 lb 13.574 oz Intake: IV 100 / 100 100 / 100 Maxipime Inj 1,000 MG In NS Inj 100 / 100 100 / 100 100 ML @ 200 mls/hr IV.SIG Q12H [facility] Rx#:[id number] Oral 240 / 240 Output: Urine 950 / 950 Other: Date of Last Bowel Movement 03/12/18 03/17/18 Result Diagrams: 03/15/18 15:00 03/18/18 06:35 Laboratory Results: Laboratory Results - last 24 hr 03/17/18 03/17/18 03/17/18 11:30 11:30 15:43 PT 10.2 INR 1.0 APTT 24.2 L POC Glucose 147 H Phosphorus 3.9 Magnesium 1.9 Medications: Active Medications Generic Name Dose Route Start Last Admin Trade Name Freq PRN Reason Stop Dose Admin Al Hydroxide/Mg Hydroxide 30 ml 03/15/18 18:36 03/16/18 21:03 Milk Of Magnesia Liq PO 30 ml Q12H PRN Administration Mild Constipation Albuterol 1 ampul 03/15/18 19:07 03/16/18 13:26 Duoneb Neb (Prn) NEB 1 ampul Q4HR NEB PRN Administration SOB/WHEEZING Budesonide/Formoterol Fumarate 2 puff 03/15/18 21:00 03/17/18 20:11 Symbicort 160/4.5 Mcg Inh INH 2 puff BID IAN Administration Cyclobenzaprine HCl 10 mg 03/15/18 22:00 03/18/18 05:06 Flexeril PO 10 mg Q8HR IAN Administration Enoxaparin Sodium 40 mg 03/15/18 20:00 03/16/18 21:03 Lovenox Inj SQ 03/19/18 20:00 40 mg Q24H IAN Administration Folic Acid 1 mg 03/16/18 09:00 03/17/18 08:01 Folic Acid PO 03/21/18 08:59 1 mg DAILY IAN Administration Guaifenesin 600 mg 03/15/18 21:00 03/17/18 20:41 Mucinex Er PO 600 mg BID IAN Administration Sodium Chloride 1,000 mls @ 0 mls/hr 03/15/18 15:30 03/15/18 16:30 Ns Inj IV.SIG Infused BOLUS IAN Infusion Wide Open Cefepime HCl 1,000 mg/ Sodium 100 mls @ 200 mls/hr 03/16/18 09:00 03/17/18 21 :42 Chloride IV.SIG Infused Q12H [facility] Infusion Multivitamins/Minerals 1 tab 03/16/18 09:00 03/17/18 08:01 Theragran-M PO 03/21/18 08:59 1 tab DAILY IAN Administration Pantoprazole Sodium 40 mg 03/15/18 21:00 03/17/18 20:41 Protonix PO 40 mg HS IAN Administration Tamsulosin HCl 0.4 mg 03/16/18 09:00 03/17/18 08:01 Flomax PO 0.4 mg DAILY IAN Administration Thiamine HCl 100 mg 03/15/18 20:00 03/17/18 08:01 Vitamin B1 PO 100 mg DAILY IAN Administration Torsemide 10 mg 03/16/18 09:00 03/17/18 17:56 Demadex PO 10 mg BID@0900,1800 IAN Administration Objective Remarks: GENERAL: Disheveled older male resting in bed. He is occasionally wincing. SKIN: Warm and dry. HEAD: Normocephalic. EYES: No scleral icterus. No injection or drainage. NECK: Supple, trachea midline. No JVD or lymphadenopathy. CARDIOVASCULAR: + S1/S2. Tachycardia. RESPIRATORY: Coarse lung sounds throughout. GASTROINTESTINAL: Abdomen protuberant but soft. Nontender. EXTREMITIES: 1+ edema to right lower extremity. MUSCULOSKELETAL: Adequate muscle tone. NEUROLOGICAL: No obvious focal deficit. Awake, alert, and oriented x3. 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 He received concurrent chemo radiation in January 2018. He was admitted with severe back pain. She had lumbar spine MRI that showed abnormal marrow replacement involving L3 vertebral body concerning for metastatic disease. 1. Continue to hold Plavix in anticipation of biopsy 2. I have adjusted the patient's pain medications to include Lortab 7.5 mg every 6 hours with IV Dilaudid breakthrough pain 1 mg every 3 hours. 3. Continue supportive care. - Attending Statement Pt examined. Mild low back tenderness; pt functional. Agree with current pain management. If requiring multiple doses of pain meds, will add long-acting MS. Off plavix for spinal bx. Will f/u.
[2018-03-18] MEDS: Multivitamin/Minerals Therapeutic Tablet PO SCH (08:52)
[2018-03-18] MEDS: guaiFENesin 600 MG ER Tablet PO SCH ×2 (08:53→20:48)
[2018-03-18] MEDS: Folic Acid 1 MG Tablet PO SCH (08:53)
[2018-03-18] MEDS: Budesonide-Formoterol 160/4.5 MCG 6 GM Inhaler INH SCH ×2 (08:54→20:48)
--- NOTE | 2018-03-18 10:36 | P.PN ---
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 Once a diagnosis of squamous cell carcinoma with a small component of adenocarcinoma was established he was initiated on combined modality chemoradiotherapy in January 2018. but patient Homeless made difficult to give management, Suspected metastatic disease to the vertebral bodies, MRI lumbar spine noted, I am concerned he may have metastatic disease to the L3 vertebral body. Ordered CT guided biopsy of the L3 vertebral body with possible Kyphoplasty. Seen in his bedroom stable awaiting for Lumbar biopsy replacing electrolyte and following. 03/18: Seen in his bedroom, stable replacing electrolytes, no nausea, vomit or diarrhea, discussed with nurse Miss Roberto Physical Exam Vital signs: Vital Signs 03/17/18 11:15 03/17/18 15:50 03/17/18 20:00 Temperature 98.4 F 98.8 F 99.7 F H Pulse Rate 97 H 118 H 114 H Respiratory Rate 22 24 24 Blood Pressure 110/71 113/72 113/77 Pulse Oximetry 97 95 94 L 03/18/18 00:00 03/18/18 04:00 03/18/18 08:43 Temperature 98.7 F 98.5 F 97.9 F Pulse Rate 106 H 114 H 96 H Respiratory Rate 22 24 24 Blood Pressure 128/75 111/7 L 121/80 Pulse Oximetry 91 L 92 L 96 03/18/18 09:26 Temperature Pulse Rate 106 H Respiratory Rate 18 Blood Pressure Pulse Oximetry Intake & Output 03/17/18 03/18/18 03/18/18 18:59 06:59 18:59 Intake Total 100 / 100 100 / 100 340 / 340 Output Total 950 / 950 Balance 100 / 100 100 / 100 -610 / -610 Weight 97 kg Intake: IV 100 / 100 100 / 100 100 / 100 Maxipime Inj 1,000 MG In NS Inj 100 / 100 100 / 100 100 / 100 100 ML @ 200 mls/hr IV.SIG Q12H [facility] Rx#:[id number] Oral 240 / 240 Output: Urine 950 / 950 Other: Date of Last Bowel Movement 03/12/18 03/17/18 03/17/18 Narrative: GENERAL: No acute distress. CARDIOVASCULAR: Regular rate and rhythm. No obvious murmurs to auscultation. RESPIRATORY: Clear to auscultation bilateral, no wheezing or crackles. GASTROINTESTINAL: Abdomen soft, non-tender, nondistended. BS normal. MUSCULOSKELETAL: Extremities without clubbing, cyanosis, or edema. No obvious deformities. NEUROLOGICAL: Awake, alert and oriented x4. No focal neurologic deficits. PSYCHIATRIC: Appropriate mood and affect. Results - Labs CBC & Chem 7: 03/15/18 15:00 03/18/18 15:45 Laboratory Results - last 24 hr 03/17/18 03/17/18 03/17/18 11:30 11:30 15:43 PT 10.2 INR 1.0 APTT 24.2 L Potassium POC Glucose 147 H Phosphorus 3.9 Magnesium 1.9 03/18/18 03/18/18 06:35 08:46 PT INR APTT Potassium 2.9 L* POC Glucose 229 H Phosphorus Magnesium - Imaging Chest CTA 03/15/18 14:42 CONCLUSION: 1. No evidence for pulmonary embolism. 2. Moderate right pleural effusion. 3. Scattered parenchymal densities throughout the right lung could be infectious or inflammatory. 4. Parenchymal lesion in the right lower lung measures 2.7 cm could be recurrent carcinoma. Outpatient PET CT scan recommended for further characterization. Venous Doppler Study 03/15/18 14:42 CONCLUSION: 1. No evidence of DVT. Chest X-Ray 03/15/18 14:43 CONCLUSION: 1. Persistent presumed postsurgical volume loss with airspace consolidation in the right hilum and lower lung zone. 2. No significant interval change or acute abnormality. - Procedures None Assessment and Plan - Assessment (1) Intractable back pain Code(s): M54.9 - Dorsalgia, unspecified Status: Acute (2) Lung cancer Code(s): C34.90 - Malignant neoplasm of unspecified part of unspecified bronchus or lung Status: Acute (3) COPD (chronic obstructive pulmonary disease) Code(s): J44.9 - Chronic obstructive pulmonary disease, unspecified Status: Acute (4) Alcohol abuse Code(s): F10.10 - Alcohol abuse, uncomplicated Status: Acute (5) Pleural effusion Code(s): J90 - Pleural effusion, not elsewhere classified Status: Acute (6) PNA (pneumonia) Code(s): J18.9 - Pneumonia, unspecified organism Status: Acute - Plan 1. Intractable Back Pain H/o Lung CA with Mets MRI L-Spine 03/08/18 w/ L3 lesion, likely metastatic, habilitation training specialist following asked for CT Guided Biopsy and Kyphoplasty and recommended for Palliative Radiation therapy after procedure performed. Continue analgesics/antiemetics as needed, add Flexeril prn. PT for eval/tx, He will have CT guided Biopsy on 03/21/18 due to that he was on Plavix. 2. Lung CA with Mets, read #1 3. Recurrent Right Pleural Effusion Previous admit 02/18-02/23/18 s/p thoracentesis w/ 600cc removal, cytology negative. CTA Pulm w/ moderate right pleural effusion, Thoracentesis as needed. 4. PNA: CXR w/ possible pneumonia, CTA Chest negative for PE, +parenchymal densities possibly infectious, in light of immunocompromised state, bandemia and physical exam, will continue w/ IV Abx for underlying pneumonia. 5. COPD: Chronic Respiratory Failure w/ Acute Exacerbation. Moderate. + wheezing, Symbicort, DuoNeb, monitor O2. 6. Alcohol Abuse: Chronic. Drinks 8 beers/day. CIWA, Seizure Precautions, MVT /Thiamine/Folate, strongly recommended to stop drinking behavior. 7. Electrolyte derangement replaced and following. DVT Prophylaxis: Lovenox CM consulted for d/c planning as needed Code Status: Full code. Discussed Condition With: Patient and nurse Miss Roberto Discharge Planning: Once cleared by Oncology and Radiation specialist.
[2018-03-18] MEDS ORDERED: Magnesium Oxide 400 MG Tablet PO SCH (10:45)
[2018-03-18] MEDS: Mag Sulf 1 gm/100 ml Premix 100 ML IV.SIG SCH ×2 (11:24→12:26)
[2018-03-18] MEDS: Enoxaparin Inj 40 MG/0.4 ML Syringe SQ SCH (23:42)
--- NOTE | 2018-03-18 23:50 | ECG ---
Date Performed: 03/18/2018 Time Performed: 11:08:38 PTAGE: 62 years EKG: Atrial fibrillation with rapid ventricular response. Anterolateral ST-T changes are nonspec ific Abnormal ECG DOCTOR: Neno Barajas Interpretating Date/Time 03/18/2018 23:49:50
[2018-03-19] MEDS: HYDROmorphone PF Inj 1 MG/ML Ampul IV.PUSH PRN ×5 (03:51→20:18)
[2018-03-19 08:21] LABS: Anion Gap 9 meq/L (5-15); Blood Urea Nitrogen 16 mg/dL (7-18); Calcium 8.7 mg/dL (8.5-10.1); Carbon Dioxide 28.2 meq/L (21.0-32.0); Chloride 99 meq/L (98-107); Glomerular Filtration Rate Greater Than 89 mL/min (>89); Glucose,Random 117 mg/dL (74-106); Potassium 3.8 meq/L (3.5-5.1); Sodium 136 meq/L (136-145)
[2018-03-19] MEDS: Multivitamin/Minerals Therapeutic Tablet PO SCH (08:23)
[2018-03-19] MEDS: Folic Acid 1 MG Tablet PO SCH (08:23)
[2018-03-19] MEDS: guaiFENesin 600 MG ER Tablet PO SCH ×2 (08:23→20:31)
[2018-03-19] MEDS: Budesonide-Formoterol 160/4.5 MCG 6 GM Inhaler INH SCH ×2 (08:24→20:31)
[2018-03-19] MEDS: Magnesium Oxide 400 MG Tablet PO SCH (11:44)
--- NOTE | 2018-03-19 15:34 | P.PN ---
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 Once a diagnosis of squamous cell carcinoma with a small component of adenocarcinoma was established he was initiated on combined modality chemoradiotherapy in January 2018. but patient Homeless made difficult to give management, Suspected metastatic disease to the vertebral bodies, MRI lumbar spine noted, I am concerned he may have metastatic disease to the L3 vertebral body. Ordered CT guided biopsy of the L3 vertebral body with possible Kyphoplasty. Seen in his bedroom stable awaiting for Lumbar biopsy replacing electrolyte and following. 03/18: Seen in his bedroom, stable replacing electrolytes 03/19: Stable in his bedroom, discussed with nurse Miss Aroralambert, awaiting for procedure scheduled for March 21 no nausea, vomit or diarrhea. Physical Exam Vital signs: Vital Signs 03/18/18 15:37 03/18/18 20:00 03/19/18 00:00 Temperature 99.1 F 98.9 F 98.7 F Pulse Rate 111 H 113 H 106 H Respiratory Rate 20 20 24 Blood Pressure 115/64 115/83 128/75 Pulse Oximetry 95 95 91 L 03/19/18 03:54 03/19/18 04:00 03/19/18 07:00 Temperature 98.5 F Pulse Rate 101 H 101 H 103 H Respiratory Rate 18 Blood Pressure 113/73 Pulse Oximetry 94 L 03/19/18 07:15 03/19/18 08:31 03/19/18 11:00 Temperature 97.9 F Pulse Rate 104 H 90 96 H Respiratory Rate 20 22 Blood Pressure 119/78 Pulse Oximetry 96 03/19/18 11:42 Temperature 97.9 F Pulse Rate 102 H Respiratory Rate 20 Blood Pressure 124/82 Pulse Oximetry 97 Intake & Output 03/18/18 03/19/18 03/19/18 18:59 06:59 18:59 Intake Total 1860 / 1860 100 / 100 100 / 100 Output Total 1825 / 1825 850 / 850 Balance 35 / 35 100 / 100 -750 / -750 Weight 98.5 kg Intake: IV 300 / 300 100 / 100 100 / 100 Maxipime Inj 1,000 MG In NS Inj 100 / 100 100 / 100 100 / 100 100 ML @ 200 mls/hr IV.SIG Q12H [facility] Rx#:[id number] Magnesium Sulfate 1 gm/D5W 100 200 / 200 ml Premix 100 ML @ 100 mls/hr IV.SIG Q1H [facility] Rx#:[id number] Oral 1560 / 1560 Output: Urine 1825 / 1825 850 / 850 Other: Date of Last Bowel Movement 03/17/18 03/17/18 03/17/18 Narrative: GENERAL: No acute distress. CARDIOVASCULAR: Regular rate and rhythm. No obvious murmurs to auscultation. RESPIRATORY: Clear to auscultation bilateral, no wheezing or crackles. GASTROINTESTINAL: Abdomen soft, non-tender, nondistended. BS normal. MUSCULOSKELETAL: Extremities without clubbing, cyanosis, or edema. No obvious deformities. NEUROLOGICAL: Awake, alert and oriented x4. No focal neurologic deficits. PSYCHIATRIC: Appropriate mood and affect. Results - Labs CBC & Chem 7: 03/15/18 15:00 03/19/18 06:00 Laboratory Results - last 24 hr 03/18/18 03/19/18 15:45 06:00 Sodium 136 Potassium 3.3 L 3.8 Chloride 99 Carbon Dioxide 28.2 Anion Gap 9 BUN 16 Creatinine 0.83 Estimated GFR Greater than 89 Random Glucose 117 H Calcium 8.7 - Imaging Chest CTA 03/15/18 14:42 CONCLUSION: 1. No evidence for pulmonary embolism. 2. Moderate right pleural effusion. 3. Scattered parenchymal densities throughout the right lung could be infectious or inflammatory. 4. Parenchymal lesion in the right lower lung measures 2.7 cm could be recurrent carcinoma. Outpatient PET CT scan recommended for further characterization. Venous Doppler Study 03/15/18 14:42 CONCLUSION: 1. No evidence of DVT. Chest X-Ray 03/15/18 14:43 CONCLUSION: 1. Persistent presumed postsurgical volume loss with airspace consolidation in the right hilum and lower lung zone. 2. No significant interval change or acute abnormality. - Procedures None Assessment and Plan - Assessment (1) Intractable back pain Code(s): M54.9 - Dorsalgia, unspecified Status: Acute (2) Lung cancer Code(s): C34.90 - Malignant neoplasm of unspecified part of unspecified bronchus or lung Status: Acute (3) COPD (chronic obstructive pulmonary disease) Code(s): J44.9 - Chronic obstructive pulmonary disease, unspecified Status: Acute (4) Alcohol abuse Code(s): F10.10 - Alcohol abuse, uncomplicated Status: Acute (5) Pleural effusion Code(s): J90 - Pleural effusion, not elsewhere classified Status: Acute (6) PNA (pneumonia) Code(s): J18.9 - Pneumonia, unspecified organism Status: Acute - Plan 1. Intractable Back Pain H/o Lung CA with Mets MRI L-Spine 03/08/18 w/ L3 lesion, likely metastatic, body specialist following asked for CT Guided Biopsy and Kyphoplasty and recommended for Palliative Radiation therapy after procedure performed. Continue analgesics/antiemetics as needed, add Flexeril prn. PT for eval/tx, He will have CT guided Biopsy on 03/21/18 due to that he was on Plavix. 2. Lung CA with Mets, read #1 3. Recurrent Right Pleural Effusion Previous admit 02/18-02/23/18 s/p thoracentesis w/ 600cc removal, cytology negative. CTA Pulm w/ moderate right pleural effusion, Thoracentesis as needed. 4. PNA: CXR w/ possible pneumonia, CTA Chest negative for PE, +parenchymal densities possibly infectious, in light of immunocompromised state, bandemia and physical exam, will continue w/ IV Abx for underlying pneumonia. 5. COPD: Chronic Respiratory Failure w/ Acute Exacerbation. Moderate. + wheezing, Symbicort, DuoNeb, monitor O2. 6. Alcohol Abuse: Chronic. Drinks 8 beers/day. CIWA, Seizure Precautions, MVT /Thiamine/Folate, strongly recommended to stop drinking behavior. 7. Electrolyte derangement replaced and following. DVT Prophylaxis: Lovenox CM consulted for d/c planning as needed No changes to anterior assessment. Code Status: Full Code. Discussed Condition With: Patient and Nurse Miss Colindres Discharge Planning: Once cleared by Oncology and Radiation specialist.
[2018-03-19] MEDS: Enoxaparin Inj 40 MG/0.4 ML Syringe SQ SCH (20:19)
[2018-03-20] MEDS: HYDROmorphone PF Inj 1 MG/ML Ampul IV.PUSH PRN ×5 (00:45→20:57)
[2018-03-20] MEDS: Enoxaparin Inj 40 MG/0.4 ML Syringe SQ SCH (06:18)
[2018-03-20] MEDS: guaiFENesin 600 MG ER Tablet PO SCH ×2 (10:33→20:54)
[2018-03-20] MEDS: Folic Acid 1 MG Tablet PO SCH (10:34)
[2018-03-20] MEDS: Multivitamin/Minerals Therapeutic Tablet PO SCH (10:35)
[2018-03-20] MEDS: Budesonide-Formoterol 160/4.5 MCG 6 GM Inhaler INH SCH ×2 (10:39→20:56)
--- NOTE | 2018-03-20 12:39 | P.PN ---
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 Once a diagnosis of squamous cell carcinoma with a small component of adenocarcinoma was established he was initiated on combined modality chemoradiotherapy in January 2018. but patient Homeless made difficult to give management, Suspected metastatic disease to the vertebral bodies, MRI lumbar spine noted, I am concerned he may have metastatic disease to the L3 vertebral body. Ordered CT guided biopsy of the L3 vertebral body with possible Kyphoplasty. Seen in his bedroom stable awaiting for Lumbar biopsy replacing electrolyte and following. 03/18: Seen in his bedroom, stable replacing electrolytes 03/19: Stable in his bedroom, discussed with nurse Miss Colindres, awaiting for procedure scheduled for March 2103/20: Discussed with nurse Miss Haro He had lumbar spine MRI that showed abnormal marrow replacement involving L3 vertebral body concerning for metastatic disease. as per Oncology to continue Plavix on Hold, Anticipated bone Biopsy for tomorrow, no nausea, vomit or diarrhea. Physical Exam Vital signs: Vital Signs 03/19/18 15:38 03/19/18 16:32 03/19/18 20:00 Temperature 98.4 F 98.2 F Pulse Rate 114 H 106 H 109 H Respiratory Rate 20 20 Blood Pressure 124/80 125/81 Pulse Oximetry 96 91 L 03/19/18 21:02 03/19/18 22:28 03/20/18 00:00 Temperature 98.0 F Pulse Rate 105 H 94 H 114 H Respiratory Rate 18 20 Blood Pressure 107/76 Pulse Oximetry 92 L 95 03/20/18 00:41 03/20/18 04:00 03/20/18 04:07 Temperature 98.0 F Pulse Rate 107 H 100 H 101 H Respiratory Rate 20 Blood Pressure 120/65 Pulse Oximetry 92 L 03/20/18 08:00 03/20/18 08:28 Temperature 98.9 F Pulse Rate 91 H Respiratory Rate 24 Blood Pressure 110/72 Pulse Oximetry 88 L 93 L Intake & Output 03/19/18 03/20/18 03/20/18 18:59 06:59 18:59 Intake Total 1540 / 1540 340 / 340 100 / 100 Output Total 1740 / 1740 900 / 900 Balance -200 / -200 -560 / -560 100 / 100 Weight 99.5 kg Intake: IV 100 / 100 100 / 100 100 / 100 Maxipime Inj 1,000 MG In NS Inj 100 / 100 100 / 100 100 / 100 100 ML @ 200 mls/hr IV.SIG Q12H [facility] Rx#:[id number] Oral 1440 / 1440 240 / 240 Output: Urine 1740 / 1740 900 / 900 Other: Date of Last Bowel Movement 03/17/18 03/17/18 Narrative: GENERAL: No acute distress. CARDIOVASCULAR: Regular rate and rhythm. No obvious murmurs to auscultation. RESPIRATORY: Clear to auscultation bilateral, no wheezing or crackles. GASTROINTESTINAL: Abdomen soft, non-tender, nondistended. BS normal. MUSCULOSKELETAL: Extremities without clubbing, cyanosis, or edema. No obvious deformities. NEUROLOGICAL: Awake, alert and oriented x4. No focal neurologic deficits. PSYCHIATRIC: Appropriate mood and affect. Results - Labs CBC & Chem 7: 03/15/18 15:00 03/19/18 06:00 - Imaging Chest CTA 03/15/18 14:42 CONCLUSION: 1. No evidence for pulmonary embolism. 2. Moderate right pleural effusion. 3. Scattered parenchymal densities throughout the right lung could be infectious or inflammatory. 4. Parenchymal lesion in the right lower lung measures 2.7 cm could be recurrent carcinoma. Outpatient PET CT scan recommended for further characterization. Venous Doppler Study 03/15/18 14:42 CONCLUSION: 1. No evidence of DVT. Chest X-Ray 03/15/18 14:43 CONCLUSION: 1. Persistent presumed postsurgical volume loss with airspace consolidation in the right hilum and lower lung zone. 2. No significant interval change or acute abnormality. - Procedures None Assessment and Plan - Assessment (1) Intractable back pain Code(s): M54.9 - Dorsalgia, unspecified Status: Acute (2) Lung cancer Code(s): C34.90 - Malignant neoplasm of unspecified part of unspecified bronchus or lung Status: Acute (3) COPD (chronic obstructive pulmonary disease) Code(s): J44.9 - Chronic obstructive pulmonary disease, unspecified Status: Acute (4) Alcohol abuse Code(s): F10.10 - Alcohol abuse, uncomplicated Status: Acute (5) Pleural effusion Code(s): J90 - Pleural effusion, not elsewhere classified Status: Acute (6) PNA (pneumonia) Code(s): J18.9 - Pneumonia, unspecified organism Status: Acute - Plan 1. Intractable Back Pain H/o Lung CA with Mets MRI L-Spine 03/08/18 w/ L3 lesion, likely metastatic, job training specialist following asked for CT Guided Biopsy and Kyphoplasty and recommended for Palliative Radiation therapy after procedure performed. Continue analgesics/antiemetics as needed, add Flexeril prn. PT for eval/tx, He will have CT guided Biopsy on 03/21/18 due to that he was on Plavix. continue on Hold. Patient status post radiation therapy today. 2. Lung CA with Mets, read #1 3. Recurrent Right Pleural Effusion Previous admit 02/18-02/23/18 s/p thoracentesis w/ 600cc removal, cytology negative. CTA Pulm w/ moderate right pleural effusion, Thoracentesis as needed. 4. PNA: CXR w/ possible pneumonia, CTA Chest negative for PE, +parenchymal densities possibly infectious, in light of immunocompromised state, bandemia and physical exam, will continue w/ IV Abx for underlying pneumonia. 5. COPD: Chronic Respiratory Failure w/ Acute Exacerbation. Moderate. + wheezing, Symbicort, DuoNeb, monitor O2. 6. Alcohol Abuse: Chronic. Drinks 8 beers/day. CIWA, Seizure Precautions, MVT /Thiamine/Folate, strongly recommended to stop drinking behavior. 7. Electrolyte derangement replaced and following. DVT Prophylaxis: Lovenox CM consulted for d/c planning as needed Code Status: Full code. Discussed Condition With: Patient, nurse Miss Haro and MDR. Discharge Planning: Once cleared by Oncology and Radiation specialist.
--- NOTE | 2018-03-20 14:25 | P.PNONC ---
Subjective Interval history: Patient resting comfortably in bed. He reports lower abdominal pain. He is pending biopsy and kyphoplasty tomorrow. He states he just got back from radiation. Objective Vital Signs/Intake & Output: Vital Signs 03/19/18 15:38 03/19/18 16:32 03/19/18 20:00 Temperature 98.4 F 98.2 F Pulse Rate 114 H 106 H 109 H Respiratory Rate 20 20 Blood Pressure 124/80 125/81 Pulse Oximetry 96 91 L 03/19/18 21:02 03/19/18 22:28 03/20/18 00:00 Temperature 98.0 F Pulse Rate 105 H 94 H 114 H Respiratory Rate 18 20 Blood Pressure 107/76 Pulse Oximetry 92 L 95 03/20/18 00:41 03/20/18 04:00 03/20/18 04:07 Temperature 98.0 F Pulse Rate 107 H 100 H 101 H Respiratory Rate 20 Blood Pressure 120/65 Pulse Oximetry 92 L 03/20/18 08:00 03/20/18 08:28 Temperature 98.9 F Pulse Rate 91 H Respiratory Rate 24 Blood Pressure 110/72 Pulse Oximetry 88 L 93 L Intake & Output 03/19/18 03/20/18 03/20/18 18:59 06:59 18:59 Intake Total 1540 / 1540 340 / 340 100 / 100 Output Total 1740 / 1740 900 / 900 Balance -200 / -200 -560 / -560 100 / 100 Weight 99.5 kg Intake: IV 100 / 100 100 / 100 100 / 100 Maxipime Inj 1,000 MG In NS Inj 100 / 100 100 / 100 100 / 100 100 ML @ 200 mls/hr IV.SIG Q12H [facility] Rx#:[id number] Oral 1440 / 1440 240 / 240 Output: Urine 1740 / 1740 900 / 900 Other: Date of Last Bowel Movement 03/17/18 03/17/18 Result Diagrams: 03/15/18 15:00 03/19/18 06:00 Medications: Active Medications Generic Name Dose Route Start Last Admin Trade Name Freq PRN Reason Stop Dose Admin Hydrocodone Bitart/Acetaminophen 1 tab 03/18/18 07:54 03/20/18 10:34 [place] 7.5/325 PO 1 tab Q6H PRN Administration pain 4-10 Al Hydroxide/Mg Hydroxide 30 ml 03/15/18 18:36 03/19/18 08:31 Milk Of Magnyanira Liq PO 30 ml Q12H PRN Administration Mild Constipation Albuterol 1 ampul 03/15/18 19:07 03/19/18 22:27 Duoneb Neb (Prn) NEB 1 ampul Q4HR NEB PRN Administration SOB/WHEEZING Budesonide/Formoterol Fumarate 2 puff 03/15/18 21:00 03/20/18 10:39 Symbicort 160/4.5 Mcg Inh INH 2 puff BID IAN Administration Cyclobenzaprine HCl 10 mg 03/15/18 22:00 03/20/18 05:59 Flexeril PO 10 mg Q8HR IAN Administration Folic Acid 1 mg 03/16/18 09:00 03/20/18 10:34 Folic Acid PO 03/21/18 08:59 1 mg DAILY IAN Administration Guaifenesin 600 mg 03/15/18 21:00 03/20/18 10:33 Mucinex Er PO 600 mg BID IAN Administration Hydromorphone HCl 1 mg 03/18/18 07:57 03/20/18 05:59 Dilaudid Pf Inj IV.PUSH 1 mg Q3H PRN Administration BREAKTHROUGH PAIN Sodium Chloride 1,000 mls @ 0 mls/hr 03/15/18 15:30 03/15/18 16:30 Ns Inj IV.SIG Infused BOLUS IAN Infusion Wide Open Cefepime HCl 1,000 mg/ Sodium 100 mls @ 200 mls/hr 03/16/18 09:00 03/20/18 11 :12 Chloride IV.SIG Infused Q12H IAN Infusion Magnesium Oxide 400 mg 03/19/18 11:00 03/19/18 11:44 Mag-Ox PO 400 mg DAILY@1100 IAN Administration Multivitamins/Minerals 1 tab 03/16/18 09:00 03/20/18 10:35 Theragran-M PO 03/21/18 08:59 1 tab DAILY IAN Administration Pantoprazole Sodium 40 mg 03/15/18 21:00 03/19/18 20:31 Protonix PO 40 mg HS IAN Administration Tamsulosin HCl 0.4 mg 03/16/18 09:00 03/20/18 10:35 Flomax PO 0.4 mg DAILY IAN Administration Thiamine HCl 100 mg 03/15/18 20:00 10/29/18 10:35 Vitamin B1 PO 100 mg DAILY IAN Administration Torsemide 10 mg 03/16/18 09:00 03/20/18 11:17 Demadex PO 10 mg BID@0900,1800 IAN Administration Objective Remarks: GENERAL: Disheveled appearing male patient, in no acute distress. SKIN: Warm and dry. HEAD: Normocephalic. EYES: No scleral icterus. No injection or drainage. NECK: Supple, trachea midline. CARDIOVASCULAR: Regular rate and rhythm without murmurs. RESPIRATORY: Breath sounds equal bilaterally. Nonlabored at rest. O2 via nasal cannula at 1 L. GASTROINTESTINAL: Abdomen large, tender RUQ, distended. EXTREMITIES: No cyanosis, or edema. MUSCULOSKELETAL: Adequate muscle tone. NEUROLOGICAL: No obvious focal deficit. Awake, alert, and oriented x3. PSYCHIATRIC: Appropriate mood and affect; insight and judgment normal. 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 He received concurrent chemo radiation in January 2018. He was admitted with severe back pain. He had lumbar spine MRI that showed abnormal marrow replacement involving L3 vertebral body concerning for metastatic disease. 1. Continue to hold Plavix in anticipation of biopsy tomorrow. 2. Continue pain medication, monitor for oversedation. 3. Continue supportive care.
[2018-03-20] MEDS: Magnesium Oxide 400 MG Tablet PO SCH (15:17)
[2018-03-21 08:47] LABS: Hematocrit 25.1 % (39.0-51.0); Hemoglobin 8.5 gm/dL (13.0-17.0); Mean Corpuscular HGB Conc 33.7 % (32.0-36.0); Mean Corpuscular Hemoglobin 31.6 pg (27.0-34.0); Mean Corpuscular Volume 93.7 fL (80.0-100.0); Mean Platelet Volume 7.8 fL (7.0-11.0); Platelet Count 191 th/mm3 (150-450); Red Blood Count 2.68 mil/mm3 (4.50-5.90); Red Cell Distribution Width 21.3 % (11.6-17.2); White Blood Count 8.1 th/mm3 (4.0-11.0)
[2018-03-21 08:53] LABS: Activated Partial Thrombo Time 27.5 sec (24.3-30.1)
[2018-03-21] MEDS: HYDROmorphone PF Inj 1 MG/ML Ampul IV.PUSH PRN ×3 (08:54→21:08)
[2018-03-21] MEDS: guaiFENesin 600 MG ER Tablet PO SCH ×2 (08:54→21:13)
[2018-03-21] MEDS: Budesonide-Formoterol 160/4.5 MCG 6 GM Inhaler INH SCH ×2 (08:55→21:17)
[2018-03-21 09:01] LABS: Albumin 2.7 g/dL (3.4-5.0); Anion Gap 9 meq/L (5-15); Aspartate Aminotransferase 18 U/L (15-37); Blood Urea Nitrogen 15 mg/dL (7-18); Calcium 8.9 mg/dL (8.5-10.1); Chloride 95 meq/L (98-107); Glomerular Filtration Rate Greater Than 89 mL/min (>89); Glucose,Random 101 mg/dL (74-106); Potassium 3.5 meq/L (3.5-5.1); Sodium 136 meq/L (136-145)
[2018-03-21 09:06] LABS: Alanine Aminotransferase 29 U/L (12-78); Alkaline Phosphatase 97 U/L (45-117); Total Protein 7.3 g/dL (6.4-8.2)
[2018-03-21 09:37] LABS: Eosinophils 3 % (0-4); Lymphocytes 10 % (9-44); Monocytes 7 % (0-8); Myelocytes 6 % (0-0)
[2018-03-21 09:38] LABS: Platelet Estimate Normal (Normal); Platelet Morphology Normal (Normal)
[2018-03-21] MEDS: Magnesium Oxide 400 MG Tablet PO SCH (10:20)
--- NOTE | 2018-03-21 10:54 | P.PNONC ---
Subjective Interval history: Patient resting in bed, still with complaints of low back pain. He states he just got his pain medications, therefore his pain is dissipating. He is pending bone biopsy and kyphoplasty with IR at noon today. Objective Vital Signs/Intake & Output: Vital Signs 03/20/18 12:00 03/20/18 16:00 03/20/18 20:00 Temperature 98.1 F Pulse Rate 98 H 106 H 109 H Respiratory Rate 24 20 24 Blood Pressure 110/72 123/65 127/72 Pulse Oximetry 88 L 91 L 96 03/21/18 00:00 03/21/18 04:00 03/21/18 08:00 Temperature 99.8 F H 97.7 F 97.6 F Pulse Rate 106 H 98 H 99 H Respiratory Rate 24 24 20 Blood Pressure 110/65 131/72 95/55 L Pulse Oximetry 93 L 98 93 L 03/21/18 10:29 Temperature Pulse Rate 104 H Respiratory Rate 20 Blood Pressure 154/84 H Pulse Oximetry 94 L Intake & Output 03/20/18 03/21/18 03/21/18 18:59 06:59 18:59 Intake Total 1330 / 1330 340 / 340 100 / 100 Output Total 1300 / 1300 600 / 600 Balance -260 / -260 100 / 100 Weight 95.6 kg Intake: IV 100 / 100 100 / 100 100 / 100 Maxipime Inj 1,000 MG In NS Inj 100 / 100 100 / 100 100 / 100 100 ML @ 200 mls/hr IV.SIG Q12H [facility] Rx#:[id number] Oral 1230 / 1230 240 / 240 Output: Urine 1300 / 1300 600 / 600 Other: Date of Last Bowel Movement 03/17/18 03/17/18 Result Diagrams: 03/21/18 07:37 03/21/18 07:37 Laboratory Results: Laboratory Results - last 24 hr 03/21/18 03/21/18 03/21/18 07:37 07:37 07:37 WBC 8.1 RBC 2.68 L Hgb 8.5 L Hct 25.1 L MCV 93.7 MCH 31.6 MCHC 33.7 RDW 21.3 H Plt Count 191 MPV 7.8 Prelim Diff (Auto) Manual diff required WBC Differential Manual diff final Seg Neuts % (Manual) 59 Band Neuts % (Manual) 15 H Lymphocytes % (Manual) 10 Monocytes % (Manual) 7 Eosinophils % (Manual) 3 Myelocytes % (Man) 6 H Abs Neuts (Manual) 6.5 Differential Comment . Platelet Estimate Normal Platelet Morphology Normal PT 10.0 INR 1.0 APTT 27.5 Sodium 136 Potassium 3.5 Chloride 95 L Carbon Dioxide 32.0 Anion Gap 9 BUN 15 Creatinine 0.82 Estimated GFR Greater than 89 Random Glucose 101 Calcium 8.9 Total Bilirubin 0.4 AST 18 ALT 29 Alkaline Phosphatase 97 Total Protein 7.3 Albumin 2.7 L Medications: Active Medications Generic Name Dose Route Start Last Admin Trade Name Freq PRN Reason Stop Dose Admin Hydrocodone Bitart/Acetaminophen 1 tab 03/18/18 07:54 03/21/18 10:27 [place] 7.5/325 PO 1 tab Q6H PRN Administration pain 4-10 Al Hydroxide/Mg Hydroxide 30 ml 03/15/18 18:36 03/19/18 08:31 Milk Of Magnesia Liq PO 30 ml Q12H PRN Administration Mild Constipation Albuterol 1 ampul 03/15/18 19:07 03/19/18 22:27 Duoneb Neb (Prn) NEB 1 ampul Q4HR NEB PRN Administration SOB/WHEEZING Budesonide/Formoterol Fumarate 2 puff 03/15/18 21:00 03/21/18 08:55 Symbicort 160/4.5 Mcg Inh INH 2 puff BID IAN Administration Cyclobenzaprine HCl 10 mg 03/15/18 22:00 03/21/18 05:25 Flexeril PO 10 mg Q8HR IAN Administration Guaifenesin 600 mg 03/15/18 21:00 03/21/18 08:54 Mucinex Er PO 600 mg BID IAN Administration Hydromorphone HCl 1 mg 03/18/18 07:57 03/21/18 08:54 Dilaudid Pf Inj IV.PUSH 1 mg Q3H PRN Administration BREAKTHROUGH PAIN Sodium Chloride 1,000 mls @ 0 mls/hr 03/15/18 15:30 03/15/18 16:30 Ns Inj IV.SIG Infused BOLUS IAN Infusion Wide Open Cefepime HCl 1,000 mg/ Sodium 100 mls @ 200 mls/hr 03/16/18 09:00 03/21/18 09 :37 Chloride IV.SIG Infused Q12H IAN Infusion Magnesium Oxide 400 mg 03/19/18 11:00 03/21/18 10:20 Mag-Ox PO 400 mg DAILY@1100 IAN Administration Pantoprazole Sodium 40 mg 03/15/18 21:00 03/20/18 20:54 Protonix PO 40 mg HS AIN Administration Patch Removal 1 each 03/20/18 16:00 03/20/18 16:46 Remove Old Patch T-DERMAL 1 each Q3D IAN Administration Tamsulosin HCl 0.4 mg 03/16/18 09:00 03/21/18 08:55 Flomax PO 0.4 mg DAILY IAN Administration Thiamine HCl 100 mg 03/15/18 20:00 03/21/18 08:54 Vitamin B1 PO 100 mg DAILY IAN Administration Torsemide 10 mg 03/16/18 09:00 03/21/18 08:54 Demadex PO 10 mg BID@0900,1800 IAN Administration Objective Remarks: GENERAL: Disheveled appearing male patient, in no acute distress. SKIN: Warm and dry. HEAD: Normocephalic. EYES: No scleral icterus. No injection or drainage. NECK: Supple, trachea midline. CARDIOVASCULAR: Regular rate and rhythm without murmurs. RESPIRATORY: Breath sounds equal bilaterally. Nonlabored at rest. O2 via nasal cannula at 1 L. GASTROINTESTINAL: Abdomen large, soft, +BS, non-tender. EXTREMITIES: No cyanosis, or edema. MUSCULOSKELETAL: Adequate muscle tone. NEUROLOGICAL: No obvious focal deficit. Awake, alert, and oriented x3. PSYCHIATRIC: Appropriate mood and affect; insight and judgment normal. 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 He received concurrent chemo radiation in January 2018. He was admitted with severe back pain. He had lumbar spine MRI that showed abnormal marrow replacement involving L3 vertebral body concerning for metastatic disease. 1. Continue to hold Plavix in anticipation of biopsy today. 2. Continue pain medication, monitor for oversedation. 3. Patient scheduled for CT-guided biopsy of the L3 vertebral body and kyphoplasty today. 4. Continue supportive care.
--- NOTE | 2018-03-21 12:07 | P.PN ---
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 Once a diagnosis of squamous cell carcinoma with a small component of adenocarcinoma was established he was initiated on combined modality chemoradiotherapy in January 2018. but patient Homeless made difficult to give management, Suspected metastatic disease to the vertebral bodies, MRI lumbar spine noted, I am concerned he may have metastatic disease to the L3 vertebral body. Ordered CT guided biopsy of the L3 vertebral body with possible Kyphoplasty. Seen in his bedroom stable awaiting for Lumbar biopsy replacing electrolyte and following. 03/18: Seen in his bedroom, stable replacing electrolytes 03/19: Stable in his bedroom, discussed with nurse Miss Colindres, awaiting for procedure scheduled for March 2103/20: Discussed with nurse Miss Haro He had lumbar spine MRI that showed abnormal marrow replacement involving L3 vertebral body concerning for metastatic disease. as per Oncology to continue Plavix on Hold, Anticipated bone Biopsy for tomorrow. 03/21: Patient scheduled for CT-guided biopsy of the L3 vertebral body and kyphoplasty today. Physical Exam Vital signs: Vital Signs 03/20/18 16:00 03/20/18 20:00 03/21/18 00:00 Temperature 98.1 F 99.8 F H Pulse Rate 106 H 109 H 106 H Respiratory Rate 20 24 24 Blood Pressure 123/65 127/72 110/65 Pulse Oximetry 91 L 96 93 L 03/21/18 04:00 03/21/18 08:00 03/21/18 10:29 Temperature 97.7 F 97.6 F Pulse Rate 98 H 99 H 104 H Respiratory Rate 24 20 20 Blood Pressure 131/72 95/55 L 154/84 H Pulse Oximetry 98 93 L 94 L Intake & Output 03/20/18 03/21/18 03/21/18 18:59 06:59 18:59 Intake Total 1330 / 1330 340 / 340 100 / 100 Output Total 1300 / 1300 600 / 600 500 / 500 Balance -260 / -260 -400 / -400 Weight 95.6 kg Intake: IV 100 / 100 100 / 100 100 / 100 Maxipime Inj 1,000 MG In NS Inj 100 / 100 100 / 100 100 / 100 100 ML @ 200 mls/hr IV.SIG Q12H [facility] Rx#:[id number] Oral 1230 / 1230 240 / 240 Output: Urine 1300 / 1300 600 / 600 500 / 500 Other: Date of Last Bowel Movement 03/17/18 03/17/18 Narrative: GENERAL: No acute distress. CARDIOVASCULAR: Regular rate and rhythm. No obvious murmurs to auscultation. RESPIRATORY: Clear to auscultation bilateral, no wheezing or crackles. GASTROINTESTINAL: Abdomen soft, non-tender, nondistended. BS normal. MUSCULOSKELETAL: Extremities without clubbing, cyanosis, or edema. No obvious deformities. NEUROLOGICAL: Awake, alert and oriented x4. No focal neurologic deficits. PSYCHIATRIC: Appropriate mood and affect. Results - Labs CBC & Chem 7: 03/21/18 07:37 03/21/18 07:37 Laboratory Results - last 24 hr 03/21/18 03/21/18 03/21/18 07:37 07:37 07:37 WBC 8.1 RBC 2.68 L Hgb 8.5 L Hct 25.1 L MCV 93.7 MCH 31.6 MCHC 33.7 RDW 21.3 H Plt Count 191 MPV 7.8 Prelim Diff (Auto) Manual diff required WBC Differential Manual diff final Seg Neuts % (Manual) 59 Band Neuts % (Manual) 15 H Lymphocytes % (Manual) 10 Monocytes % (Manual) 7 Eosinophils % (Manual) 3 Myelocytes % (Man) 6 H Abs Neuts (Manual) 6.5 Differential Comment . Platelet Estimate Normal Platelet Morphology Normal PT 10.0 INR 1.0 APTT 27.5 Sodium 136 Potassium 3.5 Chloride 95 L Carbon Dioxide 32.0 Anion Gap 9 BUN 15 Creatinine 0.82 Estimated GFR Greater than 89 Random Glucose 101 Calcium 8.9 Total Bilirubin 0.4 AST 18 ALT 29 Alkaline Phosphatase 97 Total Protein 7.3 Albumin 2.7 L - Imaging Chest CTA 03/15/18 14:42 CONCLUSION: 1. No evidence for pulmonary embolism. 2. Moderate right pleural effusion. 3. Scattered parenchymal densities throughout the right lung could be infectious or inflammatory. 4. Parenchymal lesion in the right lower lung measures 2.7 cm could be recurrent carcinoma. Outpatient PET CT scan recommended for further characterization. Venous Doppler Study 03/15/18 14:42 CONCLUSION: 1. No evidence of DVT. Chest X-Ray 03/15/18 14:43 CONCLUSION: 1. Persistent presumed postsurgical volume loss with airspace consolidation in the right hilum and lower lung zone. 2. No significant interval change or acute abnormality. - Procedures None Assessment and Plan - Assessment (1) Intractable back pain Code(s): M54.9 - Dorsalgia, unspecified Status: Acute (2) Lung cancer Code(s): C34.90 - Malignant neoplasm of unspecified part of unspecified bronchus or lung Status: Acute (3) COPD (chronic obstructive pulmonary disease) Code(s): J44.9 - Chronic obstructive pulmonary disease, unspecified Status: Acute (4) Alcohol abuse Code(s): F10.10 - Alcohol abuse, uncomplicated Status: Acute (5) Pleural effusion Code(s): J90 - Pleural effusion, not elsewhere classified Status: Acute (6) PNA (pneumonia) Code(s): J18.9 - Pneumonia, unspecified organism Status: Acute - Plan 1. Intractable Back Pain H/o Lung CA with Mets MRI L-Spine 03/08/18 w/ L3 lesion, likely metastatic, beverage specialist following asked for CT Guided Biopsy and Kyphoplasty and recommended for Palliative Radiation therapy after procedure performed. Continue analgesics/antiemetics as needed, add Flexeril prn. PT for eval/tx, He will have CT guided Biopsy on 03/21/18 due to that he was on Plavix. continue on Hold. Patient status post radiation therapy, Will go later today for Lumbar biopsy and Kyphoplasty 2. Lung CA with Mets, read #1 3. Recurrent Right Pleural Effusion Previous admit 02/18-02/23/18 s/p thoracentesis w/ 600cc removal, cytology negative. CTA Pulm w/ moderate right pleural effusion, Thoracentesis as needed. 4. PNA: CXR w/ possible pneumonia, CTA Chest negative for PE, +parenchymal densities possibly infectious, in light of immunocompromised state, bandemia and physical exam, will continue w/ IV Abx for underlying pneumonia. 5. COPD: Chronic Respiratory Failure w/ Acute Exacerbation. Moderate. + wheezing, Symbicort, DuoNeb, monitor O2. 6. Alcohol Abuse: Chronic. Drinks 8 beers/day. CIWA, Seizure Precautions, MVT /Thiamine/Folate, strongly recommended to stop drinking behavior. 7. Electrolyte derangement replaced and following. DVT Prophylaxis: Lovenox CM consulted for d/c planning as needed Code Status: Full code. Discussed Condition With: Patient and Nurse. Discharge Planning: Once cleared by Oncology and Radiation specialist.
[2018-03-21] MEDS ORDERED: Bupivacaine PF 0.75% Inj 30 ML Vial ONE (14:08)
[2018-03-21] MEDS ORDERED: Metoprolol Inj 5 MG/5 ML Vial IV.PUSH ONE (14:36)
[2018-03-21] MEDS ORDERED: Succinylcholine Inj 100 MG/5 ML Syringe IV.PUSH ONE (14:36)
--- NOTE | 2018-03-21 16:43 | P.RAD ---
Post Procedure Progress Note - Procedure Information Procedure Date: 03/21/18 Supervising Radiologist: Edgar Padilla MD Estimated blood loss (mL): 5 Anesthesia: General - Plan of Activity Patient to Unit: PACU Patient Condition: Good See PACS Report for procedural detail/treatment.
[2018-03-21] MEDS ORDERED: Sugammadex Inj 200 MG/2 ML Vial IV.PUSH ONE (16:48)
[2018-03-21] MEDS ORDERED: fentaNYL Citrate Inj 100 MCG/2 ML Ampul ONE (16:48)
[2018-03-21] MEDS ORDERED: *Meperidine Inj 25 MG/ML Vial PERIprocedural Use ONLY ONE (16:55)
[2018-03-21] MEDS ORDERED: *morphine SULFATE 4 MG/ML PERIprocedure ONLY ONE ×2 (17:15→17:25)
[2018-03-22] MEDS: HYDROmorphone PF Inj 1 MG/ML Ampul IV.PUSH PRN ×6 (00:22→22:04)
--- NOTE | 2018-03-22 07:37 | P.PNONC ---
Subjective Interval history: Patient seen and examined, vital signs, labs and medications reviewed. Procedure notes from 03/21/2018 were also reviewed. Patient underwent biopsy of the L3 vertebral body as well as kyphoplasty of the same vertebral body. This morning, the patient reports symptoms of back pain. He tells me he otherwise feels well. He did resume radiation to his thoracic disease volume yesterday. Objective Vital Signs/Intake & Output: Vital Signs 03/21/18 08:00 03/21/18 10:29 03/21/18 16:38 Temperature 97.6 F 97.7 F Pulse Rate 99 H 104 H 93 H Respiratory Rate 20 20 20 Blood Pressure 95/55 L 154/84 H 144/69 H Pulse Oximetry 93 L 94 L 100 03/21/18 16:45 03/21/18 17:00 03/21/18 17:10 Temperature Pulse Rate 93 H 92 H Respiratory Rate 19 21 Blood Pressure 148/76 H 155/72 H Pulse Oximetry 98 100 95 03/21/18 17:15 03/21/18 17:30 03/21/18 17:42 Temperature 98.8 F Pulse Rate 92 H 95 H 111 H Respiratory Rate 21 20 24 Blood Pressure 145/62 H 137/63 144/78 H Pulse Oximetry 95 96 97 03/21/18 20:00 03/21/18 21:40 03/22/18 00:00 Temperature 97.4 F L 97.6 F Pulse Rate 98 H 96 H Respiratory Rate 20 10 L 18 Blood Pressure 137/78 115/76 Pulse Oximetry 98 96 03/22/18 00:50 03/22/18 04:00 03/22/18 05:41 Temperature 97.6 F Pulse Rate 79 Respiratory Rate 16 16 18 Blood Pressure 120/74 Pulse Oximetry 93 L 03/22/18 06:15 Temperature Pulse Rate Respiratory Rate 16 Blood Pressure Pulse Oximetry Intake & Output 03/21/18 03/22/18 03/22/18 18:59 06:59 18:59 Intake Total 340 / 340 340 / 340 Output Total 1600 / 1600 350 / 350 Balance -1260 / -1260 -10 / -10 Weight 95.5 kg Intake: IV 100 / 100 100 / 100 Maxipime Inj 1,000 MG In NS Inj 100 / 100 100 / 100 100 ML @ 200 mls/hr IV.SIG Q12H [facility] Rx#:[id number] Oral 240 / 240 240 / 240 Output: Urine 1600 / 1600 350 / 350 Other: Date of Last Bowel Movement 03/20/18 Result Diagrams: 03/21/18 07:37 03/21/18 07:37 Laboratory Results: Laboratory Results - last 24 hr 03/21/18 03/21/18 03/21/18 07:37 07:37 07:37 WBC 8.1 RBC 2.68 L Hgb 8.5 L Hct 25.1 L MCV 93.7 MCH 31.6 MCHC 33.7 RDW 21.3 H Plt Count 191 MPV 7.8 Prelim Diff (Auto) Manual diff required WBC Differential Manual diff final Seg Neuts % (Manual) 59 Band Neuts % (Manual) 15 H Lymphocytes % (Manual) 10 Monocytes % (Manual) 7 Eosinophils % (Manual) 3 Myelocytes % (Man) 6 H Abs Neuts (Manual) 6.5 Differential Comment . Platelet Estimate Normal Platelet Morphology Normal PT 10.0 INR 1.0 APTT 27.5 Sodium 136 Potassium 3.5 Chloride 95 L Carbon Dioxide 32.0 Anion Gap 9 BUN 15 Creatinine 0.82 Estimated GFR Greater than 89 Random Glucose 101 Calcium 8.9 Total Bilirubin 0.4 AST 18 ALT 29 Alkaline Phosphatase 97 Total Protein 7.3 Albumin 2.7 L Medications: Active Medications Generic Name Dose Route Start Last Admin Trade Name Freq PRN Reason Stop Dose Admin Hydrocodone Bitart/Acetaminophen 1 tab 03/18/18 07:54 03/22/18 05:43 [place] 7.5/325 PO 1 tab Q6H PRN Administration pain 4-10 Al Hydroxide/Mg Hydroxide 30 ml 03/15/18 18:36 03/19/18 08:31 Milk Of Magnesia Liq PO 30 ml Q12H PRN Administration Mild Constipation Albuterol 1 ampul 03/15/18 19:07 03/19/18 22:27 Duoneb Neb (Prn) NEB 1 ampul Q4HR NEB PRN Administration SOB/WHEEZING Budesonide/Formoterol Fumarate 2 puff 03/15/18 21:00 03/21/18 21:17 Symbicort 160/4.5 Mcg Inh INH 2 puff BID IAN Administration Cyclobenzaprine HCl 10 mg 03/15/18 22:00 03/22/18 05:43 Flexeril PO 10 mg Q8HR IAN Administration Guaifenesin 600 mg 03/15/18 21:00 03/21/18 21:13 Mucinex Er PO 600 mg BID IAN Administration Hydromorphone HCl 1 mg 03/18/18 07:57 03/22/18 03:51 Dilaudid Pf Inj IV.PUSH 1 mg Q3H PRN Administration BREAKTHROUGH PAIN Sodium Chloride 1,000 mls @ 0 mls/hr 03/15/18 15:30 03/15/18 16:30 Ns Inj IV.SIG Infused BOLUS IAN Infusion Wide Open Cefepime HCl 1,000 mg/ Sodium 100 mls @ 200 mls/hr 03/16/18 09:00 03/22/18 04 :03 Chloride IV.SIG Infused Q12H I[facility] Infusion Magnesium Oxide 400 mg 03/19/18 11:00 03/21/18 10:20 Mag-Ox PO 400 mg DAILY@1100 IAN Administration Pantoprazole Sodium 40 mg 03/15/18 21:00 03/21/18 21:13 Protonix PO 40 mg HS IAN Administration Patch Removal 1 each 03/20/18 16:00 03/20/18 16:46 Remove Old Patch T-DERMAL 1 each Q3D IAN Administration Tamsulosin HCl 0.4 mg 03/16/18 09:00 03/21/18 08:55 Flomax PO 0.4 mg DAILY IAN Administration Thiamine HCl 100 mg 03/15/18 20:00 03/21/18 08:54 Vitamin B1 PO 100 mg DAILY IAN Administration Torsemide 10 mg 03/16/18 09:00 03/21/18 17:47 Demadex PO 10 mg BID@0900,1800 IAN Administration Objective Remarks: GENERAL: Middle-aged male, laying in bed, disheveled appearing male patient, in no acute distress. SKIN: Warm and dry. HEAD: Normocephalic. EYES: No scleral icterus. No injection or drainage. NECK: Supple, trachea midline. CARDIOVASCULAR: Regular rate and rhythm without murmurs. RESPIRATORY: Decreased breath sounds over the right base, prolonged expiratory phase, scattered rhonchi. GASTROINTESTINAL: Abdomen large, soft, +BS, non-tender. EXTREMITIES: No cyanosis, or edema. MUSCULOSKELETAL: Adequate muscle tone. Back was examined, bandages noted on either side of the mid lumbar vertebral spine. No bleeding noted. NEUROLOGICAL: No obvious focal deficit. Awake, alert, and oriented x3. PSYCHIATRIC: Appropriate mood and affect; insight and judgment normal. Assessment/Plan - Plan 62-year-old male with a diagnosis of a locally advanced squamous cell carcinoma of the lung, suspected metastatic disease to the L3 vertebral body. He is presently on combined modality chemoradiotherapy for what was initially suspected to be stage IIIb disease. He was admitted with severe back pain. He had lumbar spine MRI that showed abnormal marrow replacement involving L3 vertebral body concerning for metastatic disease. Status post CT-guided biopsy of the L3 vertebral body with kyphoplasty. Await results of the biopsy. If he is found to have metastatic disease to the L3 vertebral body, the focus of treatment will change as he will have biopsy-proven stage IV disease at that time. I did explain to the patient the implications of a positive biopsy, I explained that we may at that time have to shift goals of care from definitive/curative to palliative. 1. May resume Plavix now that he is status post biopsy. 2. Continue pain medication, monitor for oversedation. 3. Await results of L3 vertebral body biopsy. 4. Chemotherapy will remain on hold until the results of the biopsy are available.
[2018-03-22] MEDS: Budesonide-Formoterol 160/4.5 MCG 6 GM Inhaler INH SCH ×2 (08:58→21:22)
[2018-03-22] MEDS: guaiFENesin 600 MG ER Tablet PO SCH ×2 (08:58→21:19)
--- NOTE | 2018-03-22 09:51 | IR ---
EXAM DATE: 03/21/2018 4:44 PM EDT AGE/SEX: 62 years / Male INDICATIONS: 62-year-old male with history of squamous cell carcinoma of the lung and apparent patho logic fracture of L3 vertebral body. Patient presents for biopsy, ablation and cement augmentation. CLINICAL DATA: This is the patient's initial encounter. Patient reports that signs and symptoms have been present for 1 week and indicates a pain score of 9/10. MEDICAL/SURGICAL HISTORY: Carcinoma, lung. Chronic obstructive pulmonary disease. Pancreatiti s. MRSA, smoker, alcohol abuse HTN, Hyperlipemia, femoral artery occlusion. Tonsillectomy. odilia chirinos ,Hand surgery, COMPARISON: No prior exams available for comparison. FLUORO TIME (min): 8.3 IMAGE SERIES: 8 ACCESS SITE: L3 Anesthesia and pain control was provided by the Anesthesia department. DEVICE(S): . . PROCEDURE: 1. Thermal ablation of vertebral body with Osteocool device. 2. Fluoroscopically-guided kyphoplasty. 3. Fluoroscopic guided L3 biopsy The risks, benefits and alternatives to the procedure were explained and verbal and written consent w as obtained. The site was prepped in sterile fashion. Full sterile technique was used, including ca p, mask, sterile gloves and gown and a large sterile sheet. Hand hygiene and 2% chlorhexidine and/or betadine/alcohol prep was utilized per protocol for cutaneous antisepsis. The skin and subcutaneous tissues were infiltrated with local anesthetic solution. With fluoroscopic guidance via the above described approach access was gained to the vertebral body. Two biopsies were then obtained with both a 13-gauge and 16-gauge device. With use of the measuring c annula the appropriate sized Osteocool device was placed into the vertebral body and attached to the thermal regulator. Ablation was initiated and run via the standard protocol. Following this cavity cr eation was performed through the access needle and the prescribed cement volume was placed. Post proc edure images demonstrate cement confined to the vertebral body. The exam was performed with general anesthesia. The patient tolerated the procedure well and there we re no complications. The patient was sent to post anesthesia recovery in stable condition. CONCLUSION: 1. Uncomplicated fluoroscopic guided biopsy of L3 vertebral body 2. Uncomplicated fluoroscopic guided thermal ablation and L3 kyphoplasty. Electronically signed by: Edgar Padilla MD 03/22/2018 9:50 AM EDT
--- NOTE | 2018-03-22 10:17 | P.PNIM ---
Subjective Interval history: Patient complains of back pain. Physical Exam Vital signs: Vital Signs 03/21/18 10:29 03/21/18 16:38 03/21/18 16:45 Temperature 97.7 F Pulse Rate 104 H 93 H 93 H Respiratory Rate 20 20 19 Blood Pressure 154/84 H 144/69 H 148/76 H Pulse Oximetry 94 L 100 98 03/21/18 17:00 03/21/18 17:10 03/21/18 17:15 Temperature Pulse Rate 92 H 92 H Respiratory Rate 21 21 Blood Pressure 155/72 H 145/62 H Pulse Oximetry 100 95 95 03/21/18 17:30 03/21/18 17:42 03/21/18 20:00 Temperature 98.8 F 97.4 F L Pulse Rate 95 H 111 H 98 H Respiratory Rate 20 24 20 Blood Pressure 137/63 144/78 H 137/78 Pulse Oximetry 96 97 98 03/21/18 21:40 03/22/18 00:00 03/22/18 00:50 Temperature 97.6 F Pulse Rate 96 H Respiratory Rate 10 L 18 16 Blood Pressure 115/76 Pulse Oximetry 96 03/22/18 04:00 03/22/18 05:41 03/22/18 06:15 Temperature 97.6 F Pulse Rate 79 Respiratory Rate 16 18 16 Blood Pressure 120/74 Pulse Oximetry 93 L 03/22/18 08:00 03/22/18 08:45 Temperature 97.4 F L Pulse Rate 76 77 Respiratory Rate 20 Blood Pressure 138/80 Pulse Oximetry 98 Intake & Output 03/21/18 03/22/18 03/22/18 18:59 06:59 18:59 Intake Total 340 / 340 340 / 340 Output Total 1600 / 1600 350 / 350 Balance -1260 / -1260 -10 / -10 Weight 95.5 kg Intake: IV 100 / 100 100 / 100 Maxipime Inj 1,000 MG In NS Inj 100 / 100 100 / 100 100 ML @ 200 mls/hr IV.SIG Q12H IAN Rx#:[id number] Oral 240 / 240 240 / 240 Output: Urine 1600 / 1600 350 / 350 Other: Date of Last Bowel Movement 03/20/18 Narrative: General patient complains of back pain. HEENT extraocular movements are intact, clear oropharyngeal mucosa, no JVD Cardiovascular S1-S2 audible, RRR Respiratory clear to auscultation bilaterally Abdomen soft, nontender, nondistended, normal bowel sounds Extremities no edema 2+ distal pulses in bilateral upper and lower extremities Neuro no neurological deficits, patient moves all 4 extremities and sensation is intact bilaterally Results - Labs CBC & Chem 7: 03/21/18 07:37 03/21/18 07:37 - Imaging Impressions Radiofrequency Ablation 03/21/18 00:00 CONCLUSION: 1. Uncomplicated fluoroscopic guided biopsy of L3 vertebral body 2. Uncomplicated fluoroscopic guided thermal ablation and L3 kyphoplasty. - Procedures None Assessment and Plan - Assessment (1) Intractable back pain Code(s): M54.9 - Dorsalgia, unspecified Status: Acute (2) Lung cancer Code(s): C34.90 - Malignant neoplasm of unspecified part of unspecified bronchus or lung Status: Acute (3) COPD (chronic obstructive pulmonary disease) Code(s): J44.9 - Chronic obstructive pulmonary disease, unspecified Status: Acute (4) Alcohol abuse Code(s): F10.10 - Alcohol abuse, uncomplicated Status: Acute (5) Pleural effusion Code(s): J90 - Pleural effusion, not elsewhere classified Status: Acute (6) PNA (pneumonia) Code(s): J18.9 - Pneumonia, unspecified organism Status: Acute - Plan This patient is a 62-year-old male with a diagnosis of 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 The patient is on chemotherapy for stage IIIb disease and follows up with [facility]. The patient was admitted for severe back pain and MRI of the spine showed abnormalities in the lumbar spine concerning for metastatic disease. The patient underwent biopsy of the L3 vertebral body with kyphoplasty on 03/21/2018. 1. Advanced squamous cell carcinoma of the lung with possible metastasis to the lumbar spine. As mentioned above the patient underwent L3 vertebral body biopsy with kyphoplasty yesterday. Patient complains of back pain today and is currently on p.o. pain meds and IV Dilaudid. We will continue pain management and begin to taper down once his pain improves. He was evaluated by heme oncology today and discussion was held with the patient regarding future plans if the biopsy is positive for metastatic disease. Continue current management and await biopsy results. 2. Pneumonia Patient has received 6 days of antibiotics for what appeared to be pneumonia on chest imaging. Patient is afebrile, currently on supplemental oxygen which will be tapered off. He does not have any current complaints of shortness of breath. Antibiotics will be stopped today. 3. COPD Continue Symbicort, DuoNeb treatments as needed. 4. Alcohol abuse Continue multivitamin thiamine folate. Patient advised to stop alcohol use. Lovenox for DVT prophylaxis.
[2018-03-22] MEDS: Magnesium Oxide 400 MG Tablet PO SCH (11:57)
[2018-03-23] MEDS: HYDROmorphone PF Inj 1 MG/ML Ampul IV.PUSH PRN ×6 (02:30→21:32)
--- NOTE | 2018-03-23 08:21 | P.PNONC ---
Subjective Interval history: Patient seen and examined, vital signs, labs and medications reviewed. Pathology results reviewed as well. Subjectively, he reports symptoms of continued back pain. He does feel short of breath with ambulation and with exertion. Objective Vital Signs/Intake & Output: Vital Signs 03/22/18 08:45 03/22/18 12:00 03/22/18 12:10 Temperature 97.4 F L 97.5 F L Pulse Rate 77 102 H 94 H Respiratory Rate 20 20 Blood Pressure 138/80 155/84 H Pulse Oximetry 98 95 03/22/18 16:00 03/22/18 17:00 03/22/18 20:00 Temperature 97.9 F 98 F Pulse Rate 90 92 H 97 H Respiratory Rate 20 16 Blood Pressure 122/75 106/69 Pulse Oximetry 96 94 L 03/23/18 00:00 03/23/18 04:00 03/23/18 07:00 Temperature 98 F 98.6 F Pulse Rate 87 92 H 91 H Respiratory Rate 16 16 Blood Pressure 106/60 122/74 Pulse Oximetry 99 97 Intake & Output 03/22/18 03/23/18 03/23/18 18:59 06:59 18:59 Intake Total 100 / 100 Output Total 875 / 875 1200 / 1200 Balance -775 / -775 -1200 / -1200 Weight 95.5 kg Intake: IV 100 / 100 Maxipime Inj 1,000 MG In NS Inj 100 / 100 100 ML @ 200 mls/hr IV.SIG Q12H IAN Rx#:[id number] Output: Urine 875 / 875 1200 / 1200 Other: Date of Last Bowel Movement 03/20/18 # Bowel Movements 1 Result Diagrams: 03/21/18 07:37 03/21/18 07:37 Imaging Studies: Impressions Radiofrequency Ablation 03/21/18 00:00 CONCLUSION: 1. Uncomplicated fluoroscopic guided biopsy of L3 vertebral body 2. Uncomplicated fluoroscopic guided thermal ablation and L3 kyphoplasty. Medications: Active Medications Generic Name Dose Route Start Last Admin Trade Name Freq PRN Reason Stop Dose Admin Hydrocodone Bitart/Acetaminophen 1 tab 03/18/18 07:54 03/23/18 04:46 [place] 7.5/325 PO 1 tab Q6H PRN Administration pain 4-10 Al Hydroxide/Mg Hydroxide 30 ml 03/15/18 18:36 03/19/18 08:31 Milk Of Magnesia Liq PO 30 ml Q12H PRN Administration Mild Constipation Albuterol 1 ampul 03/15/18 19:07 03/19/18 22:27 Duoneb Neb (Prn) NEB 1 ampul Q4HR NEB PRN Administration SOB/WHEEZING Budesonide/Formoterol Fumarate 2 puff 03/15/18 21:00 03/22/18 21:22 Symbicort 160/4.5 Mcg Inh INH 2 puff BID IAN Administration Cyclobenzaprine HCl 10 mg 03/15/18 22:00 03/23/18 05:27 Flexeril PO 10 mg Q8HR IAN Administration Guaifenesin 600 mg 03/15/18 21:00 03/22/18 21:19 Mucinex Er PO 600 mg BID IAN Administration Hydromorphone HCl 1 mg 03/18/18 07:57 03/23/18 05:27 Dilaudid Pf Inj IV.PUSH 1 mg Q3H PRN Administration BREAKTHROUGH PAIN Sodium Chloride 1,000 mls @ 0 mls/hr 03/15/18 15:30 03/15/18 16:30 Ns Inj IV.SIG Infused BOLUS IAN Infusion Wide Open Magnesium Oxide 400 mg 03/19/18 11:00 03/22/18 11:57 Mag-Ox PO 400 mg DAILY@1100 IAN Administration Pantoprazole Sodium 40 mg 03/15/18 21:00 03/22/18 21:19 Protonix PO 40 mg HS IAN Administration Patch Removal 1 each 03/20/18 16:00 03/20/18 16:46 Remove Old Patch T-DERMAL 1 each Q3D IAN Administration Tamsulosin HCl 0.4 mg 03/16/18 09:00 03/22/18 08:58 Flomax PO 0.4 mg DAILY IAN Administration Thiamine HCl 100 mg 03/15/18 20:00 03/22/18 08:57 Vitamin B1 PO 100 mg DAILY IAN Administration Torsemide 10 mg 03/16/18 09:00 03/22/18 18:35 Demadex PO 10 mg BID@0900,1800 IAN Administration Objective Remarks: GENERAL: Middle-aged male, laying in bed, disheveled appearing male patient, in no acute distress. SKIN: Warm and dry. HEAD: Normocephalic. EYES: No scleral icterus. No injection or drainage. NECK: Supple, trachea midline. CARDIOVASCULAR: Regular rate and rhythm without murmurs. RESPIRATORY: Decreased breath sounds over the right base, prolonged expiratory phase, scattered rhonchi. GASTROINTESTINAL: Abdomen large, soft, +BS, non-tender. EXTREMITIES: No cyanosis, or edema. MUSCULOSKELETAL: Adequate muscle tone. Back was examined, bandages noted on either side of the mid lumbar vertebral spine. No bleeding noted. NEUROLOGICAL: No obvious focal deficit. Awake, alert, and oriented x3. PSYCHIATRIC: Appropriate mood and affect; insight and judgment normal. 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 He is presently on combined modality chemoradiotherapy for what was initially suspected to be stage IIIb disease. He was admitted with severe back pain. He had lumbar spine MRI that showed abnormal marrow replacement involving L3 vertebral body concerning for metastatic disease. He underwent CT-guided biopsy of the L3 vertebral body with kyphoplasty at the same time earlier this week. At today's visit I talked to the patient about the metastatic nature of his squamous cell carcinoma the lung. We talked about treatment being palliative going forward. I explained to him that palliative treatment is designed to help maintain quality of life, control disease related symptoms i.e. pain. And to help prolong life. I explained to the patient that the cornerstone of treatment is palliative systemic therapy, radiation is often used as adjunct of therapy for management of symptomatic metastatic disease. I explained to the patient that treatment is very involved and typically delivered in the outpatient setting. This requires the patient being able to travel to and from our clinic to receive treatment as well as to routinely follow-up along with blood work. It is understood that the patient is homeless and will remain homeless. He has currently temporary housing arranged by the hospital at a motel. When she is discharged she will be able to stay at that motel up until April 10. Following which she will be homeless again. I explained to the patient that he may want to consider hospice and end-of-life/ comfort oriented care. Though, we do routinely treat metastatic squamous cell carcinoma of the lung quite effectively with palliative systemic therapy. Ultimately, treatment helps prolong life by a modest amount. Social circumstances are important in many ways, and delivering aggressive therapeutic interventions which are often quite toxic may be Unsafe to deliver in an individual who is homeless and living in an unprotected and unsafe environment. From a philosophical standpoint, it would be worthwhile considering hospice care and possible placement to a snf or long-term nursing facility or even inpatient hospice for this individual. I did talk to the patient about these general concepts. It is fairly obvious that he has a limited grasp and understanding of the multitude of considerations. He does have a significant history of alcoholism as well. From an oncologic standpoint he does have the option of pursuing palliative systemic therapy. I would be happy to provide this treatment in the outpatient setting if he is able to follow up reliably. He would also be a reasonable candidate for hospice/comfort oriented care. He is clear for discharge from an oncologic standpoint.
[2018-03-23] MEDS: guaiFENesin 600 MG ER Tablet PO SCH ×2 (09:36→20:12)
[2018-03-23] MEDS: Enoxaparin Inj 40 MG/0.4 ML Syringe SQ SCH (09:36)
[2018-03-23] MEDS: Budesonide-Formoterol 160/4.5 MCG 6 GM Inhaler INH SCH ×2 (09:44→20:17)
[2018-03-23] MEDS: Magnesium Oxide 400 MG Tablet PO SCH (12:39)
--- NOTE | 2018-03-23 19:35 | P.PNIM ---
Subjective Interval history: Patient complains of lower back pain which is tolerable with medications. He says he is looking forward to watching football game [employer]. He is worried about his diagnosis and says he is thinking about what he wants to do next regarding management of his cancer. Physical Exam Vital signs: Vital Signs 03/22/18 20:00 03/23/18 00:00 03/23/18 04:00 Temperature 98 F 98 F 98.6 F Pulse Rate 97 H 87 92 H Respiratory Rate 16 16 16 Blood Pressure 106/69 106/60 122/74 Pulse Oximetry 94 L 99 97 03/23/18 07:00 03/23/18 09:34 03/23/18 12:00 Temperature 97.3 F L 97.5 F L Pulse Rate 91 H 102 H 102 H Respiratory Rate 18 20 Blood Pressure 116/68 121/71 Pulse Oximetry 93 L 93 L 03/23/18 16:00 03/23/18 16:41 Temperature 97.9 F Pulse Rate 112 H 108 H Respiratory Rate 20 Blood Pressure 117/71 Pulse Oximetry 95 Intake & Output 03/23/18 03/23/18 03/24/18 06:59 18:59 06:59 Output Total 1200 / 1200 Balance -1200 / -1200 Weight 95.5 kg Output: Urine 1200 / 1200 Other: Date of Last Bowel Movement 03/20/18 03/20/18 # Bowel Movements 1 Narrative: General patient complains of back pain. HEENT extraocular movements are intact, clear oropharyngeal mucosa, no JVD Cardiovascular S1-S2 audible, RRR Respiratory clear to auscultation bilaterally Abdomen soft, nontender, nondistended, normal bowel sounds Extremities no edema 2+ distal pulses in bilateral upper and lower extremities Neuro no neurological deficits, patient moves all 4 extremities and sensation is intact bilaterally Results - Labs CBC & Chem 7: 03/21/18 07:37 03/21/18 07:37 - Procedures None Assessment and Plan - Assessment (1) Intractable back pain Code(s): M54.9 - Dorsalgia, unspecified Status: Acute (2) Lung cancer Code(s): C34.90 - Malignant neoplasm of unspecified part of unspecified bronchus or lung Status: Acute (3) COPD (chronic obstructive pulmonary disease) Code(s): J44.9 - Chronic obstructive pulmonary disease, unspecified Status: Acute (4) Alcohol abuse Code(s): F10.10 - Alcohol abuse, uncomplicated Status: Acute (5) Pleural effusion Code(s): J90 - Pleural effusion, not elsewhere classified Status: Acute (6) PNA (pneumonia) Code(s): J18.9 - Pneumonia, unspecified organism Status: Acute - Plan This patient is a 62-year-old male with a diagnosis of 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 The patient is on chemotherapy for stage IIIb disease and follows up with [facility]. The patient was admitted for severe back pain and MRI of the spine showed abnormalities in the lumbar spine concerning for metastatic disease. The patient underwent biopsy of the L3 vertebral body with kyphoplasty on 03/21/2018. 1. Advanced squamous cell carcinoma of the lung with possible metastasis to the lumbar spine. As mentioned above the patient underwent L3 vertebral body biopsy with kyphoplasty yesterday. Pathology confirms metastatic disease to the L3 vertebral body. Patient complains of back pain today and is currently on p.o. pain meds and IV Dilaudid. We will continue with pain medication as needed. An extensive discussion was held between Dr. Kovacs and the patient today. As per Dr. Kovacs no palliative chemo and hospice care were discussed with the patient. The patient says that he wants to think about which route he wants to take as he is currently homeless and is not sure if he can go to and from the outpatient clinic for chemotherapy. I will discussed the case with case management to come up with a proper discharge plan for the patient. We will continue to follow [facility] oncology recommendations. I appreciate Dr. Kovacs's input and his detailed note regarding his discussion with the patient. 2. Pneumonia Patient has received 6 days of antibiotics for what appeared to be pneumonia on chest imaging. Patient is afebrile, currently on supplemental oxygen which will be tapered off. He does not have any current complaints of shortness of breath. Antibiotics will be stopped today. 3. COPD Continue Symbicort, DuoNeb treatments as needed. 4. Alcohol abuse Continue multivitamin thiamine folate. Patient advised to stop alcohol use. Lovenox for DVT prophylaxis.
[2018-03-24] MEDS: HYDROmorphone PF Inj 1 MG/ML Ampul IV.PUSH PRN ×5 (00:43→20:40)
[2018-03-24] MEDS: Enoxaparin Inj 40 MG/0.4 ML Syringe SQ SCH (09:15)
[2018-03-24] MEDS: guaiFENesin 600 MG ER Tablet PO SCH ×2 (09:15→20:39)
[2018-03-24] MEDS: Budesonide-Formoterol 160/4.5 MCG 6 GM Inhaler INH SCH ×2 (09:16→20:40)
[2018-03-24] MEDS: Magnesium Oxide 400 MG Tablet PO SCH (12:08)
--- NOTE | 2018-03-24 20:23 | P.PNIM ---
Physical Exam Vital signs: Vital Signs 03/24/18 00:00 03/24/18 04:00 03/24/18 08:00 Temperature 97.8 F 98.9 F Pulse Rate 130 H 99 H 102 H Respiratory Rate 20 20 Blood Pressure 147/89 H 97/58 L Pulse Oximetry 96 93 L 03/24/18 08:55 03/24/18 12:00 03/24/18 16:00 Temperature 98 F 97.4 F L 98.6 F Pulse Rate 109 H 125 H 18 L Respiratory Rate 18 18 Blood Pressure 133/74 119/67 121/76 Pulse Oximetry 92 L 97 95 Intake & Output 03/24/18 03/24/18 03/25/18 06:59 18:59 06:59 Intake Total 1760 / 1760 1100 / 1100 Output Total 1300 / 1300 650 / 650 Balance 460 / 460 450 / 450 Weight 97 kg Intake: Oral 1760 / 1760 1100 / 1100 Output: Urine 1300 / 1300 650 / 650 Other: Date of Last Bowel Movement 03/20/18 03/23/18 Narrative: General patient complains of back pain. He says he feels short of breath when he leaves the bed and walks to the front door or bathroom. HEENT extraocular movements are intact, clear oropharyngeal mucosa, no JVD Cardiovascular S1-S2 audible, RRR Respiratory clear to auscultation bilaterally Abdomen soft, nontender, nondistended, normal bowel sounds Extremities no edema 2+ distal pulses in bilateral upper and lower extremities Neuro no neurological deficits, patient moves all 4 extremities and sensation is intact bilaterally Results - Labs CBC & Chem 7: 03/21/18 07:37 03/21/18 07:37 - Procedures None Assessment and Plan - Assessment (1) Intractable back pain Code(s): M54.9 - Dorsalgia, unspecified Status: Acute (2) Lung cancer Code(s): C34.90 - Malignant neoplasm of unspecified part of unspecified bronchus or lung Status: Acute (3) COPD (chronic obstructive pulmonary disease) Code(s): J44.9 - Chronic obstructive pulmonary disease, unspecified Status: Acute (4) Alcohol abuse Code(s): F10.10 - Alcohol abuse, uncomplicated Status: Acute (5) Pleural effusion Code(s): J90 - Pleural effusion, not elsewhere classified Status: Acute (6) PNA (pneumonia) Code(s): J18.9 - Pneumonia, unspecified organism Status: Acute - Plan This patient is a 62-year-old male with a diagnosis of 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 The patient is on chemotherapy for stage IIIb disease and follows up with [facility]. The patient was admitted for severe back pain and MRI of the spine showed abnormalities in the lumbar spine concerning for metastatic disease. The patient underwent biopsy of the L3 vertebral body with kyphoplasty on 03/21/2018. 1. Advanced squamous cell carcinoma of the lung with possible metastasis to the lumbar spine. As mentioned above the patient underwent L3 vertebral body biopsy a couple of days ago. Pathology confirms metastatic disease to the L3 vertebral body. Patient complains of back pain today and is currently on p.o. pain meds and IV Dilaudid. We will continue with pain medication as needed. The patient is currently living at a motel because he is homeless. Currently he is an unsafe discharge the patient has a significant amount of pain requiring IV pain medications and is weak and short of breath with very minimal ambulation. I will place order for PT to evaluate the patient 7 days a week. I have also discussed the case with case management to see if the patient would qualify to go to a residential facility. He will still need to follow-up outpatient with [facility] for possible palliative chemotherapy or hospice care. The patient is still undecided on which route he wants to take. 2. COPD Continue Symbicort, DuoNeb treatments as needed. 3. Alcohol abuse Continue multivitamin thiamine folate. Patient advised to stop alcohol use. Lovenox for DVT prophylaxis.
[2018-03-25] MEDS: HYDROmorphone PF Inj 1 MG/ML Ampul IV.PUSH PRN ×5 (03:31→21:15)
[2018-03-25 07:37] LABS: Hemoglobin 8.1 gm/dL (13.0-17.0); Mean Corpuscular HGB Conc 33.8 % (32.0-36.0); Mean Corpuscular Hemoglobin 32.1 pg (27.0-34.0); Mean Corpuscular Volume 95.2 fL (80.0-100.0); Mean Platelet Volume 8.4 fL (7.0-11.0); Platelet Count 212 th/mm3 (150-450); Red Blood Count 2.52 mil/mm3 (4.50-5.90); Red Cell Distribution Width 21.5 % (11.6-17.2); White Blood Count 7.2 th/mm3 (4.0-11.0)
[2018-03-25 07:53] LABS: Anion Gap 8 meq/L (5-15); Blood Urea Nitrogen 14 mg/dL (7-18); Calcium 8.7 mg/dL (8.5-10.1); Carbon Dioxide 31.7 meq/L (21.0-32.0); Chloride 99 meq/L (98-107); Glomerular Filtration Rate Greater Than 89 mL/min (>89); Glucose,Random 103 mg/dL (74-106); Potassium 3.6 meq/L (3.5-5.1); Sodium 139 meq/L (136-145)
[2018-03-25] MEDS: Enoxaparin Inj 40 MG/0.4 ML Syringe SQ SCH (09:17)
[2018-03-25] MEDS: guaiFENesin 600 MG ER Tablet PO SCH ×2 (09:18→20:07)
[2018-03-25] MEDS: Budesonide-Formoterol 160/4.5 MCG 6 GM Inhaler INH SCH ×2 (09:26→20:08)
--- NOTE | 2018-03-25 10:48 | P.PNONC ---
Subjective Interval history: Afebrile Reports he has persistent pain in his lower back Denies pain anywhere else Feels like he needs a breathing treatment; gets short of breath with any activity Still has not made up his mind as to whether or not he wishes to pursue palliative treatment versus hospice Objective Vital Signs/Intake & Output: Vital Signs 03/24/18 12:00 03/24/18 16:00 03/24/18 20:14 Temperature 97.4 F L 98.6 F Pulse Rate 125 H 18 L 104 H Respiratory Rate 18 18 Blood Pressure 119/67 121/76 Pulse Oximetry 97 95 03/24/18 20:49 03/24/18 21:10 03/24/18 23:44 Temperature 98 F 98.4 F Pulse Rate 109 H 109 H Respiratory Rate 18 18 21 Blood Pressure 143/80 H 129/76 Pulse Oximetry 95 95 03/25/18 00:05 03/25/18 00:13 03/25/18 03:43 Temperature 98 F Pulse Rate 106 H 90 Respiratory Rate 18 20 Blood Pressure 121/72 Pulse Oximetry 96 03/25/18 03:50 03/25/18 04:00 03/25/18 07:39 Temperature Pulse Rate 115 H Respiratory Rate 18 16 Blood Pressure Pulse Oximetry 03/25/18 08:00 Temperature 98.1 F Pulse Rate 106 H Respiratory Rate 20 Blood Pressure 121/79 Pulse Oximetry 96 Intake & Output 03/24/18 03/25/18 03/25/18 18:59 06:59 18:59 Intake Total 1100 / 1100 240 / 240 Output Total 650 / 650 620 / 620 250 / 250 Balance 450 / 450 -620 / -620 -10 / -10 Weight 209 lb 7.026 oz Intake: Oral 1100 / 1100 240 / 240 Output: Urine 650 / 650 620 / 620 250 / 250 Other: Date of Last Bowel Movement 03/23/18 03/23/18 Result Diagrams: 03/25/18 06:23 03/25/18 06:21 Laboratory Results: Laboratory Results - last 24 hr 03/25/18 03/25/18 06:21 06:23 WBC 7.2 RBC 2.52 L Hgb 8.1 L Hct 24.0 L MCV 95.2 MCH 32.1 MCHC 33.8 RDW 21.5 H Plt Count 212 MPV 8.4 Prelim Diff (Auto) Manual diff required Differential Comment . Sodium 139 Potassium 3.6 Chloride 99 Carbon Dioxide 31.7 Anion Gap 8 BUN 14 Creatinine 0.85 Estimated GFR Greater than 89 Random Glucose 103 Calcium 8.7 Magnesium 2.0 Medications: Active Medications Generic Name Dose Route Start Last Admin Trade Name Freq PRN Reason Stop Dose Admin Hydrocodone Bitart/Acetaminophen 1 tab 03/18/18 07:54 03/25/18 07:09 [place] 7.5/325 PO 1 tab Q6H PRN Administration pain 4-10 Al Hydroxide/Mg Hydroxide 30 ml 03/15/18 18:36 03/19/18 08:31 Milk Of Magnesia Liq PO 30 ml Q12H PRN Administration Mild Constipation Albuterol 1 ampul 03/15/18 19:07 03/19/18 22:27 Duoneb Neb (Prn) NEB 1 ampul Q4HR NEB PRN Administration SOB/WHEEZING Budesonide/Formoterol Fumarate 2 puff 03/15/18 21:00 03/25/18 09:26 Symbicort 160/4.5 Mcg Inh INH 2 puff BID IAN Administration Cyclobenzaprine HCl 10 mg 03/15/18 22:00 03/25/18 07:09 Flexeril PO 10 mg Q8HR IAN Administration Enoxaparin Sodium 40 mg 03/23/18 09:00 03/25/18 09:17 Lovenox Inj SQ 40 mg DAILY IAN Administration Guaifenesin 600 mg 03/15/18 21:00 03/25/18 09:18 Mucinex Er PO 600 mg BID IAN Administration Hydromorphone HCl 1 mg 03/18/18 07:57 03/25/18 09:17 Dilaudid Pf Inj IV.PUSH 1 mg Q3H PRN Administration BREAKTHROUGH PAIN Sodium Chloride 1,000 mls @ 0 mls/hr 03/15/18 15:30 03/15/18 16:30 Ns Inj IV.SIG Infused BOLUS IAN Infusion Wide Open Magnesium Oxide 400 mg 03/19/18 11:00 03/24/18 12:08 Mag-Ox PO 400 mg DAILY@1100 IAN Administration Pantoprazole Sodium 40 mg 03/15/18 21:00 03/24/18 20:40 Protonix PO 40 mg HS IAN Administration Patch Removal 1 each 03/20/18 16:00 03/23/18 17:10 Remove Old Patch T-DERMAL Not Given Q3D IAN Tamsulosin HCl 0.4 mg 03/16/18 09:00 03/25/18 09:18 Flomax PO 0.4 mg DAILY IAN Administration Thiamine HCl 100 mg 03/15/18 20:00 03/25/18 09:18 Vitamin B1 PO 100 mg DAILY IAN Administration Torsemide 10 mg 03/16/18 09:00 11 09:26 Demadex PO 10 mg BID@0900,1800 IAN Administration Objective Remarks: GENERAL: Disheveled older male resting in bed. SKIN: Warm and dry. HEAD: Normocephalic. EYES: No scleral icterus. No injection or drainage. NECK: Supple, trachea midline. No JVD or lymphadenopathy. CARDIOVASCULAR: + S1/S2. Tachycardia. RESPIRATORY: Coarse lung sounds throughout. GASTROINTESTINAL: Abdomen protuberant but soft. Nontender. EXTREMITIES: 1+ edema to right lower extremity. MUSCULOSKELETAL: Adequate muscle tone. NEUROLOGICAL: No obvious focal deficit. Awake, alert, and oriented x3. 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 He is presently on combined modality chemoradiotherapy for what was initially suspected to be stage IIIb disease. He was admitted with severe back pain. He had lumbar spine MRI that showed abnormal marrow replacement involving L3 vertebral body concerning for metastatic disease. He underwent CT-guided biopsy of the L3 vertebral body with kyphoplasty at the same time earlier this week. 1. 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 He continues to require IV pain control. He is considering palliative treatment versus hospice. Palliative treatment will be tricky in this homeless patient with very limited resources. 2. I have consulted palliative care to follow-up with patient for both pain as well as helping him to clarify his goals. He does have the option of pursuing palliative systemic therapy if he is able to follow-up in the outpatient setting reliably. 3. Continue supportive care. - Attending Statement The exam, history, and the medical decision-making described in the above note were completed with the assistance of the mid-level provider. I reviewed and agree with the findings presented. I attest that I had a [id number] encounter with the patient on the same day, and personally performed and documented my assessment and findings in the medical record. Continue efforts to control pain. Social situation of being homeless. Patient interested in continuing palliative therapy but has poor support.
[2018-03-25 10:49] LABS: Lymphocytes 4 % (9-44); Monocytes 11 % (0-8); Myelocytes 11 % (0-0); Promyelocyte 1 % (0-0)
[2018-03-25 10:50] LABS: Platelet Estimate Normal (Normal); Platelet Morphology Normal (Normal)
[2018-03-25] MEDS: Magnesium Oxide 400 MG Tablet PO SCH (12:22)
--- NOTE | 2018-03-25 18:47 | P.PNIM ---
Subjective Interval history: Patient says he still has back pain. He also complains of shortness of breath when he walks short distances. At rest he says he feels okay. Physical Exam Vital signs: Vital Signs 03/24/18 20:14 03/24/18 20:49 03/24/18 21:10 Temperature 98 F Pulse Rate 104 H 109 H Respiratory Rate 18 18 Blood Pressure 143/80 H Pulse Oximetry 95 03/24/18 23:44 03/25/18 00:05 03/25/18 00:13 Temperature 98.4 F Pulse Rate 109 H 106 H Respiratory Rate 21 18 Blood Pressure 129/76 Pulse Oximetry 95 03/25/18 03:43 03/25/18 03:50 03/25/18 04:00 Temperature 98 F Pulse Rate 90 115 H Respiratory Rate 20 18 Blood Pressure 121/72 Pulse Oximetry 96 03/25/18 07:39 03/25/18 08:00 03/25/18 12:00 Temperature 98.1 F 98.2 F Pulse Rate 107 H 107 H Respiratory Rate 16 20 18 Blood Pressure 121/79 105/70 Pulse Oximetry 96 91 L 03/25/18 15:09 03/25/18 16:00 Temperature 98.1 F Pulse Rate 107 H 108 H Respiratory Rate 18 Blood Pressure 112/74 Pulse Oximetry 91 L Intake & Output 03/24/18 03/25/18 03/25/18 18:59 06:59 18:59 Intake Total 1100 / 1100 240 / 240 Output Total 650 / 650 620 / 620 250 / 250 Balance 450 / 450 -620 / -620 -10 / -10 Weight 95 kg Intake: Oral 1100 / 1100 240 / 240 Output: Urine 650 / 650 620 / 620 250 / 250 Other: Date of Last Bowel Movement 03/23/18 03/23/18 03/23/18 Narrative: General patient complains of back pain. Patient gets short winded when walking very short distances. HEENT extraocular movements are intact, clear oropharyngeal mucosa, no JVD Cardiovascular S1-S2 audible, RRR Respiratory clear to auscultation bilaterally Abdomen soft, nontender, nondistended, normal bowel sounds Extremities no edema 2+ distal pulses in bilateral upper and lower extremities Neuro no neurological deficits, patient moves all 4 extremities and sensation is intact bilaterally Results - Labs CBC & Chem 7: 03/25/18 06:23 03/25/18 06:21 Laboratory Results - last 24 hr 03/25/18 03/25/18 06:21 06:23 WBC 7.2 RBC 2.52 L Hgb 8.1 L Hct 24.0 L MCV 95.2 MCH 32.1 MCHC 33.8 RDW 21.5 H Plt Count 212 MPV 8.4 Prelim Diff (Auto) Manual diff required WBC Differential Manual diff final Seg Neuts % (Manual) 53 Band Neuts % (Manual) 20 H Lymphocytes % (Manual) 4 L Monocytes % (Manual) 11 H Myelocytes % (Man) 11 H Promyelocytes % (Man) 1 H Abs Neuts (Manual) 6.1 Differential Comment . Platelet Estimate Normal Platelet Morphology Normal Polychromasia 2.0 H Sodium 139 Potassium 3.6 Chloride 99 Carbon Dioxide 31.7 Anion Gap 8 BUN 14 Creatinine 0.85 Estimated GFR Greater than 89 Random Glucose 103 Calcium 8.7 Magnesium 2.0 - Procedures None Assessment and Plan - Assessment (1) Intractable back pain Code(s): M54.9 - Dorsalgia, unspecified Status: Acute (2) Lung cancer Code(s): C34.90 - Malignant neoplasm of unspecified part of unspecified bronchus or lung Status: Acute (3) COPD (chronic obstructive pulmonary disease) Code(s): J44.9 - Chronic obstructive pulmonary disease, unspecified Status: Acute (4) Alcohol abuse Code(s): F10.10 - Alcohol abuse, uncomplicated Status: Acute (5) Pleural effusion Code(s): J90 - Pleural effusion, not elsewhere classified Status: Acute (6) PNA (pneumonia) Code(s): J18.9 - Pneumonia, unspecified organism Status: Acute - Plan This patient is a 62-year-old male with a diagnosis of 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 The patient is on chemotherapy for stage IIIb disease and follows up with [facility] oncology. The patient was admitted for severe back pain and MRI of the spine showed abnormalities in the lumbar spine concerning for metastatic disease. The patient underwent biopsy of the L3 vertebral body with kyphoplasty on 03/21/2018. 1. Advanced squamous cell carcinoma of the lung with possible metastasis to the lumbar spine. Pathology confirms metastatic disease to the L3 vertebral body. Patient is still complaining of back pain. On p.o. and IV pain medications. We will continue with pain medication as needed. Discharge planning The patient is currently living at a motel because he is homeless. Currently the patient is unsafe discharge, he is having shortness of breath with ambulating short distances and has a lot of back pain when he begins to ambulate. An echocardiogram from a couple of years ago shows an ejection fraction of 50%. I will order an echocardiogram to evaluate his heart function. I have asked physical therapy to evaluate the patient 7 days a week. I have also discussed the case with case management to see if the patient can go to a [facility] facility as he will need some time to get stronger. He currently is unable to care for himself. He will still need to follow-up outpatient with heme oncology for possible palliative chemotherapy or hospice care. The patient is still undecided on which route he wants to take. 2. COPD Continue Symbicort, DuoNeb treatments as needed. 3. Alcohol abuse Continue multivitamin thiamine folate. Patient advised to stop alcohol use. Lovenox for DVT prophylaxis.
[2018-03-26] MEDS: HYDROmorphone PF Inj 1 MG/ML Ampul IV.PUSH PRN ×7 (00:27→20:30)
[2018-03-26] MEDS: guaiFENesin 600 MG ER Tablet PO SCH ×2 (08:08→20:30)
[2018-03-26] MEDS: Enoxaparin Inj 40 MG/0.4 ML Syringe SQ SCH (08:08)
[2018-03-26] MEDS: Budesonide-Formoterol 160/4.5 MCG 6 GM Inhaler INH SCH ×2 (08:12→20:32)
[2018-03-26] MEDS: Magnesium Oxide 400 MG Tablet PO SCH (11:02)
--- NOTE | 2018-03-26 14:59 | ECHRPT ---
Indication: CVA/TIA CONCLUSIONS Mildly dilated left ventricle. Wall thickness is normal. The left ventricular systolic function is normal with an estimated ejection fraction in the range of 55-60%. The estimated pulmonary arterial pressure is 20 mmHg. BP: / HR: Rhythm: MEASUREMENTS (Male / Female) Normal Values Technical Quality: 2D ECHO LV Diastolic Diameter PLAX 5.2 cm 4.2 - 5.9 / 3.9 - 5.3 cm LV Systolic Diameter PLAX 4.0 cm IVS Diastolic Thickness 0.9 cm 0.6 - 1.0 / 0.6 - 0.9 cm LVPW Diastolic Thickness 1.0 cm 0.6 - 1.0 / 0.6 - 0.9 cm LV Relative Wall Thickness 0.4 RV Internal Dim ED PLAX 2.6 cm LA Systolic Diameter LX 3.4 cm 3.0 - 4.0 / 2.7 - 3.8 cm DOPPLER Mitral E Point Velocity 96.3 cm/s Mitral A Point Velocity 139.0 cm/s Mitral E to A Ratio 0.7 TR Peak Velocity 155.0 cm/s TR Peak Gradient 9.6 mmHg Right Atrial Pressure 10.0 mmHg Pulmonary Artery Systolic Pressu 19.6 mmHg Right Ventricular Systolic Press 19.6 mmHg FINDINGS LEFT VENTRICLE Mildly dilated left ventricle. Wall thickness is normal. The left ventricular systolic function is normal with an estimated ejection fraction in the range of 55-60%. RIGHT VENTRICLE Normal right ventricular size and systolic function. LEFT ATRIUM The left atrial size is normal. RIGHT ATRIUM The right atrial size is normal. ATRIAL SEPTUM Normal atrial septal thickness without atrial level shunting by limited color doppler interrogation. AORTA The aortic root and proximal ascending aorta are normal in size on limited imaging. MITRAL VALVE Structurally normal mitral valve. No mitral valve stenosis or regurgitation. AORTIC VALVE Trileaflet aortic valve. No aortic valve stenosis or regurgitation. TRICUSPID VALVE The estimated pulmonary arterial pressure is 20 mmHg. PULMONARY VALVE No pulmonary valve regurgitation or stenosis. VESSELS The inferior vena cava is normal in size. PERICARDIUM No pericardial effusion. Sabino Tran MD (Electronically Signed) Final Date:26 March 2018 14:58
--- NOTE | 2018-03-26 20:03 | P.PNIM ---
Subjective Interval history: Patient is sitting upright. He is watching football. At rest he says he feels okay as long as he gets his pain medications. He does not have any other complaints. Physical Exam Vital signs: Vital Signs 03/25/18 21:45 03/25/18 23:01 03/25/18 23:46 Temperature 98.7 F Pulse Rate 111 H 107 H Respiratory Rate 18 20 Blood Pressure 114/71 Pulse Oximetry 93 L 03/26/18 00:57 03/26/18 03:21 03/26/18 03:53 Temperature 98.5 F Pulse Rate 110 H Respiratory Rate 16 18 20 Blood Pressure 109/66 Pulse Oximetry 03/26/18 03:55 03/26/18 03:57 03/26/18 04:09 Temperature Pulse Rate 103 H Respiratory Rate Blood Pressure Pulse Oximetry 87 L 95 03/26/18 04:19 03/26/18 07:09 03/26/18 08:00 Temperature 98.7 F Pulse Rate 111 H Respiratory Rate 18 18 20 Blood Pressure 131/79 Pulse Oximetry 92 L 03/26/18 11:02 03/26/18 16:00 03/26/18 17:28 Temperature 98.7 F 97.9 F Pulse Rate 108 H 106 H 111 H Respiratory Rate 22 20 20 Blood Pressure 93/59 L 117/75 Pulse Oximetry 91 L 96 Intake & Output 03/26/18 03/26/18 03/27/18 06:59 18:59 06:59 Intake Total 1260 / 1260 Output Total 1625 / 1625 Balance -365 / -365 Weight Intake: Oral 1260 / 1260 Output: Urine 1625 / 1625 Other: Date of Last Bowel Movement 03/23/18 Narrative: General patient complains of back pain. Patient gets short winded when walking. HEENT extraocular movements are intact, clear oropharyngeal mucosa, no JVD Cardiovascular S1-S2 audible, RRR Respiratory clear to auscultation bilaterally Abdomen soft, nontender, nondistended, normal bowel sounds Extremities no edema 2+ distal pulses in bilateral upper and lower extremities Neuro no neurological deficits, patient moves all 4 extremities and sensation is intact bilaterally Results - Labs CBC & Chem 7: 03/25/18 06:23 03/25/18 06:21 - Procedures None Assessment and Plan - Assessment (1) Intractable back pain Code(s): M54.9 - Dorsalgia, unspecified Status: Acute (2) Lung cancer Code(s): C34.90 - Malignant neoplasm of unspecified part of unspecified bronchus or lung Status: Acute (3) COPD (chronic obstructive pulmonary disease) Code(s): J44.9 - Chronic obstructive pulmonary disease, unspecified Status: Acute (4) Alcohol abuse Code(s): F10.10 - Alcohol abuse, uncomplicated Status: Acute (5) Pleural effusion Code(s): J90 - Pleural effusion, not elsewhere classified Status: Acute (6) PNA (pneumonia) Code(s): J18.9 - Pneumonia, unspecified organism Status: Acute - Plan This patient is a 62-year-old male with a diagnosis of 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 The patient is on chemotherapy for stage IIIb disease and follows up with [facility] oncology. The patient was admitted for severe back pain and MRI of the spine showed abnormalities in the lumbar spine concerning for metastatic disease. The patient underwent biopsy of the L3 vertebral body with kyphoplasty on 03/21/2018. 1. Advanced squamous cell carcinoma of the lung with possible metastasis to the lumbar spine. 2. Acute hypoxic restaurant failure secondary to #1 Patient gets short of breath when ambulating short distances. I ordered an echocardiogram yesterday which shows an ejection fraction of 55-60%. The patient's shortness of breath is likely secondary to advanced, cell carcinoma of the lung. I will obtain a walk test and the patient will likely need supplemental oxygen on discharge. He would likely benefit from care home facility placement. Case was discussed with case management today. After the walk test I will discharge the patient to a care home facility. Pathology confirms metastatic disease to the L3 vertebral body. As per the [facility] oncology documentation the patient wants palliative chemo. Patient is still complaining of back pain. On p.o. and IV pain medications. We will continue with pain medication as needed. 2. COPD Continue Symbicort, DuoNeb treatments as needed. 3. Alcohol abuse Continue multivitamin thiamine folate. Patient advised to stop alcohol use. Lovenox for DVT prophylaxis. Discharge planning The patient is currently living at a motel because he is homeless. Currently the patient is unsafe discharge, he is having shortness of breath with ambulating short distances and has a lot of back pain when he begins to ambulate. Plan is to discharge the patient to a care home facility.
[2018-03-27] MEDS: HYDROmorphone PF Inj 1 MG/ML Ampul IV.PUSH PRN ×6 (05:38→23:25)
--- NOTE | 2018-03-27 07:24 | P.PNONC ---
Subjective Interval history: Patient seen and examined, vital signs, labs and medications reviewed. Events over the past 2 days also reviewed. Subjectively, patient reports continued back pain. He tells me he had difficulty getting up out of bed and ambulating due to the pain. He localizes the pain to the midline of the mid lumbar region of his back. Medications reviewed, he is on hydrocodone/acetaminophen for management of pain. Over the weekend a palliative care consult was appropriately placed. Objective Vital Signs/Intake & Output: Vital Signs 03/26/18 08:00 03/26/18 11:02 03/26/18 16:00 Temperature 98.7 F 98.7 F 97.9 F Pulse Rate 111 H 108 H 106 H Respiratory Rate 20 22 20 Blood Pressure 131/79 93/59 L 117/75 Pulse Oximetry 92 L 91 L 96 03/26/18 17:28 03/26/18 20:00 03/26/18 20:35 Temperature 98.8 F Pulse Rate 111 H 112 H Respiratory Rate 20 22 Blood Pressure 117/76 Pulse Oximetry 96 92 L 03/27/18 00:00 03/27/18 04:00 Temperature 98.6 F 98.4 F Pulse Rate 105 H 110 H Respiratory Rate 20 20 Blood Pressure 126/76 105/67 Pulse Oximetry 99 97 Intake & Output 03/26/18 03/27/18 03/27/18 18:59 06:59 18:59 Intake Total 1260 / 1260 240 / 240 Output Total 1625 / 1625 925 / 925 Balance -365 / -365 -685 / -685 Weight 99 kg Intake: Oral 1260 / 1260 240 / 240 Output: Urine 1625 / 1625 925 / 925 Other: Date of Last Bowel Movement 03/23/18 03/23/18 # Bowel Movements 0 Result Diagrams: 03/25/18 06:23 03/25/18 06:21 Medications: Active Medications Generic Name Dose Route Start Last Admin Trade Name Freq PRN Reason Stop Dose Admin Hydrocodone Bitart/Acetaminophen 1 tab 03/18/18 07:54 03/27/18 04:02 [place] 7.5/325 PO 1 tab Q6H PRN Administration pain 4-10 Al Hydroxide/Mg Hydroxide 30 ml 03/15/18 18:36 03/19/18 08:31 Milk Of Magnesia Liq PO 30 ml Q12H PRN Administration Mild Constipation Albuterol 1 ampul 03/15/18 19:07 03/26/18 17:28 Duoneb Neb (Prn) NEB 1 ampul Q4HR NEB PRN Administration SOB/WHEEZING Budesonide/Formoterol Fumarate 2 puff 03/15/18 21:00 03/26/18 20:32 Symbicort 160/4.5 Mcg Inh INH 2 puff BID IAN Administration Cyclobenzaprine HCl 10 mg 03/15/18 22:00 03/27/18 05:22 Flexeril PO 10 mg Q8HR IAN Administration Enoxaparin Sodium 40 mg 03/23/18 09:00 03/26/18 08:08 Lovenox Inj SQ 40 mg DAILY IAN Administration Guaifenesin 600 mg 03/15/18 21:00 03/26/18 20:30 Mucinex Er PO 600 mg BID IAN Administration Hydromorphone HCl 1 mg 03/18/18 07:57 03/27/18 05:38 Dilaudid Pf Inj IV.PUSH 1 mg Q3H PRN Administration BREAKTHROUGH PAIN Sodium Chloride 1,000 mls @ 0 mls/hr 03/15/18 15:30 03/15/18 16:30 Ns Inj IV.SIG Infused BOLUS IAN Infusion Wide Open Magnesium Oxide 400 mg 03/19/18 11:00 03/26/18 11:02 Mag-Ox PO 400 mg DAILY@1100 IAN Administration Pantoprazole Sodium 40 mg 03/15/18 21:00 03/26/18 20:30 Protonix PO 40 mg HS IAN Administration Patch Removal 1 each 03/20/18 16:00 03/26/18 15:33 Remove Old Patch T-DERMAL Not Given Q3D IAN Tamsulosin HCl 0.4 mg 03/16/18 09:00 03/26/18 08:08 Flomax PO 0.4 mg DAILY IAN Administration Thiamine HCl 100 mg 03/15/18 20:00 03/26/18 08:08 Vitamin B1 PO 100 mg DAILY IAN Administration Torsemide 10 mg 03/16/18 09:00 03/26/18 17:05 Demadex PO 10 mg BID@0900,1800 IAN Administration Objective Remarks: GENERAL: Middle-aged male, laying in bed, disheveled appearing male patient, in no acute distress. SKIN: Warm and dry. HEAD: Normocephalic. EYES: No scleral icterus. No injection or drainage. NECK: Supple, trachea midline. CARDIOVASCULAR: Regular rate and rhythm without murmurs. RESPIRATORY: Decreased breath sounds over the right base, prolonged expiratory phase, scattered rhonchi. GASTROINTESTINAL: Abdomen large, soft, +BS, non-tender. EXTREMITIES: No cyanosis, or edema. MUSCULOSKELETAL: Adequate muscle tone. Back was examined, bandages noted on either side of the mid lumbar vertebral spine. No bleeding noted. NEUROLOGICAL: No obvious focal deficit. Awake, alert, and oriented x3. PSYCHIATRIC: Appropriate mood and affect; insight and judgment normal. Assessment/Plan - Plan 62-year-old male with a diagnosis of metastatic squamous cell carcinoma of the lung with biopsy-proven metastatic disease to the L3 vertebral body and suspected malignant pleural effusion which has been recurrent. He was initially diagnosed with stage IIIb disease and was initiated on combined modality chemoradiotherapy, however while on treatment he developed severe midline back pain. He was admitted with severe back pain. He had lumbar spine MRI that showed abnormal marrow replacement involving L3 vertebral body concerning for metastatic disease. He underwent CT-guided biopsy of the L3 vertebral body with kyphoplasty last week which confirmed presence of metastatic disease. 1. 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 He will be a candidate for outpatient palliative systemic therapy to help prolong survival and to help control disease related symptoms. I do anticipate some challenges the patient will face to establish outpatient follow-up; the stem from his homelessness and poor social support. I would estimate the patient has spent 3 months in this hospital other than perhaps a total of 10-14 days in a hospital [facility]. 2. Palliative care has been asked to see him to discuss pain management. I have gently tried to discuss hospice and end-of-life/comfort oriented care with the patient with the understanding that reliable outpatient follow-up and outpatient delivery of systemic therapy in the palliative setting may not be possible or feasible given his current social circumstances. In the past I have extensively discussed with the patient potential support such as family members or friends who may be able to accommodate him and support him once he is discharged. The patient tells me he has no one he can call him for help. 3. Continue supportive care.
[2018-03-27] MEDS: Budesonide-Formoterol 160/4.5 MCG 6 GM Inhaler INH SCH ×2 (10:02→20:47)
[2018-03-27] MEDS: Enoxaparin Inj 40 MG/0.4 ML Syringe SQ SCH (10:03)
[2018-03-27] MEDS: Magnesium Oxide 400 MG Tablet PO SCH (10:04)
[2018-03-27] MEDS: guaiFENesin 600 MG ER Tablet PO SCH ×2 (10:04→20:42)
--- NOTE | 2018-03-27 11:00 | P.CONPAL ---
Consult Service: Palliative Care Requesting Physician: Shauna Jain Reason for Consult: a. To assist with evaluation and management of symptoms including:Pain, dyspnea , debility b. To assist medical decision maker(s) with: better understanding of current medical conditions; weighing benefits/burdens of medical treatment options; making medical treatment decisions. Primary Care Provider: Emi Stone History of Present Illness History of Present Illness: Mr. 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 Patient presented to the emergency room on 03/15/18 after advised by his oncologist Dr. Kovacs to be evaluated for severe low back shortness of breath and right lower extremity swelling. Patient was seen in ER on 03/08/18 for evaluation of severe and he had an MRI which revealed abnormal marrow replacement L3 likely metastatic. ER course: * Vital signs: Temperature 98 F, pulse 97, respiration 22, BP 138/78, pulse ox 98% * Laboratory workup revealed WBC 6.0, hemoglobin 9.4, hematocrit 28.5, platelet count 169, PT 10.0, INR 1.0, APTT 26.8, sodium 138, potassium 3.2, BUN/ creatinine 15/0.77, random glucose 107, calcium 8.6, 86 AST 18, ALT 20, troponin less than 0.02, total protein 7.4, albumin 3.2 * EKG reveals sinus rhythm, rate 96. * Chest CTA revealed no evidence for pulmonary embolism, moderate right pleural effusion, scattered parenchymal densities throughout the right lung and parenchymal lesion in the right lower lung measuring 2.7 cm. * Venous Doppler to right lower extremity revealed no evidence of DVT * Chest x-ray revealed persistent presumed postsurgical volume loss with airspace consolidation in the right hilum and lower lung zone. * Patient has been admitted for further evaluation and treatment under [facility]. Radiation oncology Dr. Ann consulted on 03/16/18 for evaluation and management of a patient with back pain and continuation of care, recommended continuing with radiation therapy on his lung and possible biopsy of the lumbar spine as well as sedimentation and bone ablation followed with palliative radiotherapy to the spine. Oncology Dr. Kovacs consulted on 03/17/18 for evaluation of patient with squamous cell carcinoma of the lung with possible metastasis, recommended CT-guided biopsy of the L3 vertebral body with possible kyphoplasty. Per oncology if metastatic disease is confirmed treatment goals will be palliative. Patient underwent radiofrequency ablation on 03/21/18 as well as fluoroscopically guided kyphoplasty and L3 biopsy. Pathology revealed metastatic squamous cell carcinoma. Per oncology patient would be a candidate for outpatient palliative systemic therapy which may possibly prolong survival and also be beneficial in symptom management. Due to patient's current social circumstances this may be impossible. Hospice and end of life/comfort oriented care topic has been broached by oncology. Palliative care consulted to assist with symptom management and establishment of goals of medical treatment. Patient seen and examined in his room. Respiratory therapy and physical therapy at bedside for a walking test. Patient is alert, oriented to self, place and situation. In this first visit introduced palliative care and its role in symptom management and establishment of goals of medical treatment. Obtained psychosocial, past medical history and events leading to this hospitalization. Patient is able to fully explain his diagnosis and treatment offered thus far. Patient appears to have insight regarding his medical condition and is able to weigh benefits and burdens of treatment. Patient has never completed advanced directives. During this first visit patient was able to designate his friend Eriberto Montenegro as his healthcare surrogate. Assisted patient with completion of designation of healthcare surrogate form and he signed it-also witnessed by bedside RN. Addressed CODE STATUS, discussed CPR complications, limitations and benefits. Patient elected to not resuscitate/DO NOT INTUBATE. Patient's current main concern is his social circumstances. Patient is homeless and feels he will not be able to survive under such conditions. Prior to this hospitalization he was residing in a motel of which he knows it is only for a limited time. Patient mentioned that he has 2 sisters that he is estranged from. 1 of his sister Sophie Heredia (resides in [place]-patient is unsure if she lives in [place] or [place]) and the other sister Rehana who resides in [place]). Patient wants to continue with palliative chemo and radiation therapy. He understands that treatment is not curative and that disease may continue to progress despite treatment. Broached hospice topic, patient is currently not interested in transitioning to comfort care only. Function/Cognitive Trajectory: Patient was diagnosed in December 2015 with a squamous cell carcinoma of the right upper lobe of the lung and final pathology revealed a component of adenocarcinoma as well. Patient underwent thoracotomy with biopsy and tumor sampling by Dr. Serrano on 01/05/2018 and he was noted to have clinical evidence of mediastinal donna involvement. Patient has been receiving concomitant chemoradiation therapy for the diagnosis of right lung carcinoma. Patient was initiated on combined modality chemotherapy in January 2018. First 2-3 weeks of treatment he was in the hospital (2 doses of weekly carboplatin and Taxol ) and was discharged to a motel. He is received a total of 15 radiation treatments out of total 33 treatments patient has had multiple hospital visits for the past 2 months due to dyspnea related to recurrent right-sided pleural effusions. Patient has undergone thoracentesis twice on separate occasions and cytology was negative for metastatic disease or malignant cells. Patient has not been able to have adequate dose density of treatment due to social issues. Patient is homeless and has had complications with transportation to and from the clinic for follow-up visits. Patient currently resides in a motel that was paid for by [facility]. Patient mentions that he has been increasingly getting weak, independent of ADLs. Patient is only able to ambulate very short distances, limited with dyspnea. Patient easily gets dyspneic with activity. Patient is able to verbalize his needs. . Review of Systems Constitutional: Reports fatigue, Reports lack of energy, Reports weakness, Denies chills, Denies fever(s), Denies weight loss Eyes: Denies change in vision Ears, Nose, Mouth, and Throat: Denies abnormal hearing, Denies dry mouth, Denies hearing loss, Denies nasal congestion Cardiovascular: Reports chest pain, Reports leg swelling Respiratory: Reports cough, Reports shortness of breath Gastrointestinal: Reports constipation, Denies nausea, Denies vomiting Genitourinary: Denies blood in urine, Denies difficulty urinating, Denies urinary incontinence Musculoskeletal: Reports back pain (Lower back pain), Reports numbness ( Intermittent numbness and tingling sensation to right toes), Reports tingling Skin/Breast: Reports unusual bruising, Denies rash Neurologic: Reports weakness, Denies abnormal hearing, Denies abnormal speech, Denies headache(s), Denies localized weakness Psychiatric: Reports anxiety, Denies change in appetite, Denies confusion Endocrine: Denies increased urination Hematologic/Lymphatic: Reports easy bruising, Denies easy bleeding Allergic/Immunologic: Denies GI upset with certain foods PMFSH - History History Provided By: Patient, Medical Record - Medical History Medical History: Medical History (Last Reviewed 03/28/18 @ 08:00 by Marisela Group) Squamous cell carcinoma of lung, stage III (Acute) H/O chronic pancreatitis (Acute) Femoral artery occlusion, right (Acute) MRSA (methicillin resistant Staphylococcus aureus) (Acute) Homelessness (Acute) Tobacco abuse (Acute) Alcohol abuse (Acute) COPD (chronic obstructive pulmonary disease) (Acute) Hyperlipemia (Acute) Hypertension (Acute) Pleural effusion - Surgical History Surgical History: Surgical History (Last Reviewed 03/28/18 @ 08:00 by [facility]isela Group) H/O hand surgery (Acute) History of tonsillectomy (Acute) Status post bilateral LASIK surgery (Acute) 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) History of thoracentesis History of thoracotomy - Family History Family History: Family History (Last Reviewed 03/17/18 @ 07:55 by Franklin Kovacs MD) Mother Unknown family medical history Father Cancer - Social History I have reviewed the patient's Social History: Yes - Tobacco History Second Hand Smoke Exposure: No Tobacco Use In Past 30 Days: No Smoking Status: Current some day smoker Tobacco Type: Cigarettes Packs Per Day: 1 years: 35 - Alcohol History How Often Do You Have a Drink Containing Alcohol: 4 or more times a week - Substance Use History Substance History: Active Abuse (Alcohol abuse.) - Travel History Recent Travel in the [place] Within the Last 8 Weeks: No Recent Travel Out of the Country Within the Last 8 Weeks: No - Immunization History Tetanus Immunization: <5 Years Medications and Allergies Active Medications: Active Medications Acetaminophen (Tylenol) 650 mg PO Q4H PRN PRN Reason: Headache, fever, pain 1-4 Hydrocodone Bitart/Acetaminophen ([place] 7.5/325) 1 tab PO Q6H PRN PRN Reason: pain 4-10 Last Admin: 03/27/18 04:02 Dose: 1 tab Al Hydroxide/Mg Hydroxide (Milk Of Magnesia Liq) 30 ml PO Q12H PRN PRN Reason: Mild Constipation Last Admin: 03/19/18 08:31 Dose: 30 ml Albuterol (Duoneb Neb (Prn)) 1 ampul NEB Q4HR NEB PRN PRN Reason: SOB/WHEEZING Last Admin: 03/26/18 17:28 Dose: 1 ampul Bisacodyl (Dulcolax Supp) 10 mg RECTAL DAILY PRN PRN Reason: SEVERE CONSITIPATION Budesonide/Formoterol Fumarate (Symbicort 160/4.5 Mcg Inh) 2 puff INH BID [facility] Last Admin: 03/26/18 20:32 Dose: 2 puff Cyclobenzaprine HCl (Flexeril) 10 mg PO Q8HR [facility] Last Admin: 03/27/18 05:22 Dose: 10 mg Enoxaparin Sodium (Lovenox Inj) 40 mg SQ DAILY [facility] Last Admin: 03/26/18 08:08 Dose: 40 mg Flumazenil (Romazecon Inj) 0.2 mg IV.PUSH Q1M PRN PRN Reason: OVERSEDATION Guaifenesin (Mucinex Er) 600 mg PO BID [facility] Last Admin: 03/26/18 20:30 Dose: 600 mg Haloperidol Lactate (Haldol Inj) 1 mg IV.PUSH Q15M PRN PRN Reason: for severe agitation Hydromorphone HCl (Dilaudid Pf Inj) 1 mg IV.PUSH Q3H PRN PRN Reason: BREAKTHROUGH PAIN Last Admin: 03/27/18 05:38 Dose: 1 mg Sodium Chloride (Ns Inj) 1,000 mls @ 0 mls/hr IV.SIG BOLUS [facility] Last Infusion: 03/15/18 16:30 Dose: Infused Lactulose (Lactulose Liq) 30 ml PO DAILY PRN PRN Reason: SEVERE CONSITIPATION Lorazepam (Ativan) 1 mg PO Q4H PRN PRN Reason: for CIWA 8-10 Lorazepam (Ativan) 2 mg PO Q2H PRN PRN Reason: for CIWA 11-14 Lorazepam (Ativan Inj) 2 mg IV.PUSH Q1H PRN PRN Reason: for CIWA 15-20 Lorazepam (Ativan Inj) 2 mg IV.PUSH Q15M PRN PRN Reason: for CIWA > 20 Lorazepam (Ativan Inj) 1 mg IV.PUSH Q4H PRN PRN Reason: for CIWA 8-10 Lorazepam (Ativan Inj) 2 mg IV.PUSH Q2H PRN PRN Reason: for CIWA 11-14 Magnesium Oxide (Mag-Ox) 400 mg PO DAILY@1100 [facility] Last Admin: 03/26/18 11:02 Dose: 400 mg Ondansetron HCl (Zofran Inj) 4 mg IV.PUSH Q6H PRN PRN Reason: NAUSEA OR VOMITING Pantoprazole Sodium (Protonix) 40 mg PO HS [facility] Last Admin: 03/26/18 20:30 Dose: 40 mg Patch Removal (Remove Old Patch) 1 each T-DERMAL Q3D [facility] Last Admin: 03/26/18 15:33 Dose: Not Given Sennosides (Senokot) 17.2 mg PO Q12H PRN PRN Reason: Moderate Constipation Tamsulosin HCl (Flomax) 0.4 mg PO DAILY [facility] Last Admin: 03/26/18 08:08 Dose: 0.4 mg Thiamine HCl (Vitamin B1) 100 mg PO DAILY [facility] Last Admin: 03/26/18 08:08 Dose: 100 mg Torsemide (Demadex) 10 mg PO BID@0900,1800 [facility] Last Admin: 03/26/18 17:05 Dose: 10 mg Allergies Allergy/AdvReac Type Severity Reaction Status Date / Time codeine Allergy Severe Hives Verified 03/15/18 15:07 Home Medications Medication Instructions Recorded Confirmed Type albuterol sulfate [Proventil HFA] 2 puff INHALATION BID 03/08/18 03/15/18 History budesonide-formoterol [Symbicort] 2 puff INHALATION BID 03/08/18 03/15/18 History prednisone 10 mg PO DIRECTED 03/08/18 03/15/18 History ibuprofen 800 mg PO TID 03/15/18 03/15/18 History Advance Directives Living Will: No Healthcare Surrogate: Yes Health Care Surrogate Name and Number: Eriberto [phone] Power of Clinical Training Coordinator: No Today's verbally stated goals: Patient would like to continue with palliative chemo and radiation therapy. Patient also wants assistance with placement. . Family/friends goals: No family at bedside. Patient mentions that he is estranged from his sisters. Ethical and Legal Issues: Patient designated his friend Eriberto Mata as his healthcare surrogate but unfortunately he is not able to visit him while in the hospital because he does not have an ID. Patient states that he is able to communicate with his friend via telephone while he is hospitalized. . Physical Exam Vital Signs: Vital Signs - 24 hr 03/26/18 11:02 03/26/18 16:00 03/26/18 17:28 Temperature 98.7 F 97.9 F Pulse Rate 108 H 106 H 111 H Respiratory Rate 22 20 20 Blood Pressure 93/59 L 117/75 Pulse Oximetry 91 L 96 03/26/18 20:00 03/26/18 20:35 03/27/18 00:00 Temperature 98.8 F 98.6 F Pulse Rate 112 H 105 H Respiratory Rate 22 20 Blood Pressure 117/76 126/76 Pulse Oximetry 96 92 L 99 03/27/18 04:00 03/27/18 08:00 Temperature 98.4 F 97.8 F Pulse Rate 110 H 100 H Respiratory Rate 20 18 Blood Pressure 105/67 112/62 Pulse Oximetry 97 99 I&O: Intake & Output 03/25/18 03/26/18 03/27/18 03/28/18 07:59 06:59 06:59 06:59 Intake Total 1500 / 1500 Output Total 2550 / 2550 Balance -1050 / -1050 Weight 99 kg Physical Exam: CONSTITUTIONAL/GENERAL: This is a chronically ill looking patient, in no apparent distress. TUBES/LINES/DRAINS: PIV, nasal cannula SKIN: No jaundice, rashes, or lesions. Ecchymoses on upper extremities. No wounds seen anteriorly. Skin temperature appropriate. Not diaphoretic. HEAD: Atraumatic. Normocephalic. EYES: Pupils equal and round and reactive. Extraocular motions intact. No scleral icterus. No injection or drainage. Fundi not examined. ENT: Hearing grossly normal. Nose without bleeding or purulent drainage. Moist oral mucosa NECK: Trachea midline. Supple, nontender. CARDIOVASCULAR: Regular rate and rhythm without murmurs, gallops, or rubs. No JVD. Peripheral pulses symmetric. RESPIRATORY/CHEST: Symmetric, unlabored respirations. Clear to auscultation. Breath sounds equal bilaterally. No wheezes, rales, or rhonchi. GASTROINTESTINAL: Abdomen soft, non-tender,distended. No guarding. Bowel sounds present. GENITOURINARY: Without palpable bladder distension. Peres genitourinary MUSCULOSKELETAL: Extremities without clubbing, cyanosis, or edema. No joint tenderness or effusion noted. No calf tenderness. No mottling or clubbing. LYMPHATICS: Did not assess NEUROLOGICAL: Awake and alert. Motor and sensory grossly within normal limits. Follows commands. Moves all extremities. PSYCHIATRIC: No obvious anxiety/depression. no apparent hallucinations or other psychotic thought process. Diagnostic Tests Laboratory: Laboratory Results - last 72 hr 03/25/18 03/25/18 06:21 06:23 WBC 7.2 RBC 2.52 L Hgb 8.1 L Hct 24.0 L MCV 95.2 MCH 32.1 MCHC 33.8 RDW 21.5 H Plt Count 212 MPV 8.4 Prelim Diff (Auto) Manual diff required WBC Differential Manual diff final Seg Neuts % (Manual) 53 Band Neuts % (Manual) 20 H Lymphocytes % (Manual) 4 L Monocytes % (Manual) 11 H Myelocytes % (Man) 11 H Promyelocytes % (Man) 1 H Abs Neuts (Manual) 6.1 Differential Comment . Platelet Estimate Normal Platelet Morphology Normal Polychromasia 2.0 H Sodium 139 Potassium 3.6 Chloride 99 Carbon Dioxide 31.7 Anion Gap 8 BUN 14 Creatinine 0.85 Estimated GFR Greater than 89 Random Glucose 103 Calcium 8.7 Magnesium 2.0 Result Diagrams: 03/25/18 06:23 03/25/18 06:21 Imaging: Chest CTA 03/15/18 14:42 CONCLUSION: 1. No evidence for pulmonary embolism. 2. Moderate right pleural effusion. 3. Scattered parenchymal densities throughout the right lung could be infectious or inflammatory. 4. Parenchymal lesion in the right lower lung measures 2.7 cm could be recurrent carcinoma. Outpatient PET CT scan recommended for further characterization. Venous Doppler Study 03/15/18 14:42 CONCLUSION: 1. No evidence of DVT. Chest X-Ray 03/15/18 14:43 CONCLUSION: 1. Persistent presumed postsurgical volume loss with airspace consolidation in the right hilum and lower lung zone. 2. No significant interval change or acute abnormality. Radiofrequency Ablation 03/21/18 00:00 CONCLUSION: 1. Uncomplicated fluoroscopic guided biopsy of L3 vertebral body 2. Uncomplicated fluoroscopic guided thermal ablation and L3 kyphoplasty. Procedures: 03/21/18-fluoroscopically guided kyphoplasty and L3 biopsy Patient/Family Conference Family Conference Location: Bedside Issues Discussed: * Palliative care role, purpose, approach * Additional medical, psychosocial, and spiritual history * Patients general health, functional status, and cognitive changes in the months leading up to the current hospitalization * Patient/family understanding of the current medical problems * Patient/family understanding of prognosis * Patients goals of care as best understood from advance directives and/or conversations and/or values * Current medical treatment options and benefits/burdens of those options * Likely scenarios comparing ongoing aggressive care with a transition to comfort measures only * Questions answered to the best of my ability * Introduced hospice philosophy and benefits * Palliative care contact information provided Assessment and Plan - Symptom Scale (1) Pain 0-10 Scale: 7 (2) Dyspnea 0-10 Scale: Unable to quantify Comment: Patient has stage IV lung cancer and COPD. (3) Debility 0-10 Scale: Unable to quantify Pertinent Non-Medical Issues: Psychosocial: Patient was born and raised in [place]. He moved to [place] approximately 15 years ago. Patient used to work for a [employer]. 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 Patient has never been and has never had children. He has 2 estranged sisters, Sophie Heredia who resides in [place] ([place] or [place]) and another one Rehana who resides in [place]. Patient's both parents are . Father in 1974 from an unknown cancer and mother at age 92. Spiritual: Patient is Yarsanism-declined visit from Legal: Completed and signed designation of healthcare surrogate form on 03/27/18 Ethical issues impacting care: Patient is homeless. Prior to this hospitalization patient has been residing in a motel paid for by the [facility] hospital up to April 10, 2018. Patient is afraid that he will not be able to manage being homeless with his advanced disease. . Important Contacts: Healthcare surrogate -Eriberto Mata- [phone] . Prognosis: Mr. Garcia is a 62-year-old male with a history of stage IV squamous cell lung cancer with metastatic disease to L3 vertebral body, recurrent right pleural effusion tobaccoism, alcohol abuse, chronic obstructive pulmonary disease, hyperlipidemia, hypertension, history of chronic pancreatitis, and femoral artery occlusion. Patient presented to the emergency room on 03/15/18 with complaints of severe low back shortness of breath and right lower extremity swelling. Patient underwent L3 biopsy by interventional radiology. Pathology revealed metastatic squamous cell carcinoma. Given multiple ongoing comorbidities, patient remains at high risk for further complications, deterioration and decline. Patient has been offered palliative chemotherapy and radiation. If patient's goals would be comfort care only, he would benefit from hospice care. . Code Status: No Code DNR Plan: PLAN: Legal decision maker: Patient is currently able to participate in medical decision making. In the event that he is incapacitated he has designated his friend Adolfo Wei is his healthcare surrogate. Goals: Aggressive short of no code. Patient would like to proceed with palliative chemotherapy and radiation therapy. Patient designated a healthcare surrogate and made himself a DO NOT RESUSCITATE/DO NOT INTUBATE. Patient would like assistance with placement and is willing to go for rehabilitation at a halfway facility and most likely [facility] placement. Hospice topic broached. Patient is currently not ready for hospice services. He would like to see how he would do with palliative chemotherapy and radiation. CODE STATUS: No code DO NOT RESUSCITATE/DO NOT INTUBATE SYMPTOMS: * Pain:Patient came in with complaints of severe back pain. Diagnostic tests revealed stage IV squamous cell carcinoma of the lung with metastasis to L3 vertebral body. Patient describes pain is throbbing, sharp pain, rating pain is 7 out of 10. Bedside knee is currently medicating patient. * Dyspnea: Patient has stage IV lung carcinoma with metastasis to L3 vertebral body, recurrent pleural effusions. Patient is short of breath with conversation and activity. Was not able to fully participate in the walking test used to dyspnea after ambulating a few feet. Currently on O2 2 L nasal cannula. * Debility: Progressive. Patient has stage IV lung carcinoma with metastases to L3 vertebral body. Patient has had multiple hospitalizations in the past few months. Patient's activity largely limited by dyspnea, pain. Physical therapy consulted. Palliative care will continue to follow the patient during hospital course as condition evolves, to assist patient/decision-maker with understanding of their medical conditions, weighing benefits/burdens of treatment options, for clarification of goals of treatment. Additionally will assist with any symptoms of palliative concern Appreciation Thank you for the opportunity to participate in the care of Martin Garcia. Attestation Attestation: To help prompt me to consider important information that might be impacting today's encounter and assessment, information from prior notes written by myself or my colleagues may have been "brought forward" into today's note. My signature on this note, however, is an attestation that I personally performed the exam, history, and/or decision-making noted today, and, unless otherwise indicated, the interactions with patient, family, and staff as well as the review of records all occurred today. I also attest that the listed assessment and stated plan reflect my best clinical judgment today based on the combination of historical information, prior notes, and today's exam/ interactions. When time spent is documented, it refers only to time spent today by the signer, or if indicated, combined time spent today by collaborating physician/nurse practitioner.
--- NOTE | 2018-03-27 15:33 | P.PNIM ---
Subjective Interval history: Patient says he feels tired. He agrees to go to a alf facility. He still has complaints of lower back pain. Physical Exam Vital signs: Vital Signs 03/26/18 16:00 03/26/18 17:28 03/26/18 20:00 Temperature 97.9 F 98.8 F Pulse Rate 106 H 111 H 112 H Respiratory Rate 20 20 22 Blood Pressure 117/75 117/76 Pulse Oximetry 96 96 Pulse Oximetry [Resting on Room Air] 03/26/18 20:35 03/27/18 00:00 03/27/18 04:00 Temperature 98.6 F 98.4 F Pulse Rate 105 H 110 H Respiratory Rate 20 20 Blood Pressure 126/76 105/67 Pulse Oximetry 92 L 99 97 Pulse Oximetry [Resting on Room Air] 03/27/18 08:00 03/27/18 08:25 03/27/18 10:19 Temperature 97.8 F Pulse Rate 100 H Respiratory Rate 18 Blood Pressure 112/62 Pulse Oximetry 99 99 94 L Pulse Oximetry [Resting on Room Air] 03/27/18 11:40 03/27/18 11:59 03/27/18 13:45 Temperature 97.6 F Pulse Rate 108 H Respiratory Rate 20 20 Blood Pressure 124/70 Pulse Oximetry 100 Pulse Oximetry [Resting on Room Air] 93 L Intake & Output 03/26/18 03/27/18 03/27/18 18:59 06:59 18:59 Intake Total 1260 / 1260 240 / 240 Output Total 1625 / 1625 925 / 925 Balance -365 / -365 -685 / -685 Weight 99 kg Intake: Oral 1260 / 1260 240 / 240 Output: Urine 1625 / 1625 925 / 925 Other: Date of Last Bowel Movement 03/23/18 03/23/18 # Bowel Movements 0 Narrative: General patient complains of back pain. HEENT extraocular movements are intact, clear oropharyngeal mucosa, no JVD Cardiovascular S1-S2 audible, RRR Respiratory clear to auscultation bilaterally Abdomen soft, nontender, nondistended, normal bowel sounds Extremities no edema 2+ distal pulses in bilateral upper and lower extremities Neuro no neurological deficits, patient moves all 4 extremities and sensation is intact bilaterally Results - Labs CBC & Chem 7: 03/25/18 06:23 03/25/18 06:21 - Procedures None Assessment and Plan - Assessment (1) Intractable back pain Code(s): M54.9 - Dorsalgia, unspecified Status: Acute (2) Lung cancer Code(s): C34.90 - Malignant neoplasm of unspecified part of unspecified bronchus or lung Status: Acute (3) COPD (chronic obstructive pulmonary disease) Code(s): J44.9 - Chronic obstructive pulmonary disease, unspecified Status: Acute (4) Alcohol abuse Code(s): F10.10 - Alcohol abuse, uncomplicated Status: Acute (5) Pleural effusion Code(s): J90 - Pleural effusion, not elsewhere classified Status: Acute (6) PNA (pneumonia) Code(s): J18.9 - Pneumonia, unspecified organism Status: Acute - Plan This patient is a 62-year-old male with a diagnosis of 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 The patient is on chemotherapy for stage IIIb disease and follows up with [facility] oncology. The patient was admitted for severe back pain and MRI of the spine showed abnormalities in the lumbar spine concerning for metastatic disease. The patient underwent biopsy of the L3 vertebral body with kyphoplasty on 03/21/2018. 1. Advanced squamous cell carcinoma of the lung with possible metastasis to the lumbar spine. 2. Acute hypoxic restaurant failure secondary to #1 Patient gets short of breath when ambulating short distances. I ordered an echocardiogram yesterday which shows an ejection fraction of 55-60% . The patient's shortness of breath is likely secondary to advanced, cell carcinoma of the lung. The patient will benefit from rehab at a alf facility after discharge he would likely benefit from alf facility placement. Case was discussed in detail with case management today. Patient is unsafe to be discharged back to the [facility] given his current condition. He will likely need supplemental oxygen when he is discharged. Case management is working on placing the patient at a alf facility. Pathology confirms metastatic disease to the L3 vertebral body. As per the [facility] oncology documentation the patient wants palliative chemo. Patient is still complaining of back pain. On p.o. and IV pain medications. We will continue with pain medication as needed. 2. COPD Continue Symbicort, DuoNeb treatments as needed. 3. Alcohol abuse Continue multivitamin thiamine folate. Patient advised to stop alcohol use. Lovenox for DVT prophylaxis. Discharge planning The patient is currently living at a motel because he is homeless. Currently the patient is unsafe discharge, he is having shortness of breath with ambulating short distances and has a lot of back pain when he begins to ambulate. Plan is to discharge the patient to a alf facility.
[2018-03-28] MEDS: HYDROmorphone PF Inj 1 MG/ML Ampul IV.PUSH PRN ×2 (04:15→20:11)
[2018-03-28] MEDS: Enoxaparin Inj 40 MG/0.4 ML Syringe SQ SCH (09:58)
[2018-03-28] MEDS: guaiFENesin 600 MG ER Tablet PO SCH ×2 (09:58→20:11)
[2018-03-28] MEDS: Budesonide-Formoterol 160/4.5 MCG 6 GM Inhaler INH SCH ×2 (09:59→20:11)
[2018-03-28] MEDS: Magnesium Oxide 400 MG Tablet PO SCH (11:08)
--- NOTE | 2018-03-28 17:31 | P.PNIM ---
Subjective Interval history: Patient complains of a on and off cough. He still has lower back pain. He does not have any other complaints. Physical Exam Vital signs: Vital Signs 03/27/18 20:00 03/27/18 20:21 03/28/18 00:00 Temperature 99.5 F 98.7 F Pulse Rate 110 H 110 H 99 H Respiratory Rate 22 20 Blood Pressure 134/75 118/71 Pulse Oximetry 95 96 03/28/18 00:20 03/28/18 04:00 03/28/18 08:00 Temperature 98.7 F 98.2 F Pulse Rate 106 H 97 H 92 H Respiratory Rate 18 18 Blood Pressure 115/57 L 100/65 Pulse Oximetry 97 96 03/28/18 11:20 03/28/18 12:00 Temperature Pulse Rate 110 H Respiratory Rate 20 18 Blood Pressure 100/65 99/63 L Pulse Oximetry 96 94 L Intake & Output 03/27/18 03/28/18 03/28/18 18:59 06:59 18:59 Intake Total 240 / 240 Output Total 900 / 900 Balance -660 / -660 Weight 99.2 kg Intake: Oral 240 / 240 Output: Urine 900 / 900 Other: Date of Last Bowel Movement 03/27/18 # Bowel Movements 1 Narrative: General patient complains of back pain, he is coughing while in bed today. HEENT extraocular movements are intact, clear oropharyngeal mucosa, no JVD Cardiovascular S1-S2 audible, RRR Respiratory clear to auscultation bilaterally Abdomen soft, nontender, nondistended, normal bowel sounds Extremities no edema 2+ distal pulses in bilateral upper and lower extremities Neuro no neurological deficits, patient moves all 4 extremities and sensation is intact bilaterally Results - Labs CBC & Chem 7: 03/25/18 06:23 03/25/18 06:21 - Procedures None Assessment and Plan - Assessment (1) Intractable back pain Code(s): M54.9 - Dorsalgia, unspecified Status: Acute (2) Lung cancer Code(s): C34.90 - Malignant neoplasm of unspecified part of unspecified bronchus or lung Status: Acute (3) COPD (chronic obstructive pulmonary disease) Code(s): J44.9 - Chronic obstructive pulmonary disease, unspecified Status: Acute (4) Alcohol abuse Code(s): F10.10 - Alcohol abuse, uncomplicated Status: Acute (5) Pleural effusion Code(s): J90 - Pleural effusion, not elsewhere classified Status: Acute (6) PNA (pneumonia) Code(s): J18.9 - Pneumonia, unspecified organism Status: Acute - Plan This patient is a 62-year-old male with a diagnosis of 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 The patient is on chemotherapy for stage IIIb disease and follows up with [facility] oncology. The patient was admitted for severe back pain and MRI of the spine showed abnormalities in the lumbar spine concerning for metastatic disease. The patient underwent biopsy of the L3 vertebral body with kyphoplasty on 03/21/2018. 1. Advanced squamous cell carcinoma of the lung with possible metastasis to the lumbar spine. 2. Acute hypoxic restaurant failure secondary to #1 The patient's shortness of breath is likely secondary to advanced, cell carcinoma of the lung. Continue supplemental oxygen as needed. Continue breathing treatments as needed. The patient will benefit from rehab at a [facility] facility after discharge he would likely benefit from [facility] facility placement. Case was discussed in detail with case management today. Patient is unsafe to be discharged back to the [facility] given his current condition. Case management is working on placing the patient at a [facility] facility. Pathology confirms metastatic disease to the L3 vertebral body. Palliative care evaluated the patient. The patient is now DNR/DNI as per the documentation. 2. COPD Continue Symbicort, DuoNeb treatments as needed. 3. Alcohol abuse Continue multivitamin thiamine folate. Patient advised to stop alcohol use. Lovenox for DVT prophylaxis. Discharge planning The patient is currently living at a motel because he is homeless. Currently the patient is unsafe discharge back to the [facility], he is having shortness of breath with ambulating short distances and has a lot of back pain when he begins to ambulate. Plan is to discharge the patient to a [facility] facility.
[2018-03-29] MEDS: HYDROmorphone PF Inj 1 MG/ML Ampul IV.PUSH PRN ×4 (03:14→21:25)
--- NOTE | 2018-03-29 09:17 | P.PNIM ---
Subjective Interval history: Patient says he had a cough yesterday. He continues to have back pain. Physical Exam Vital signs: Vital Signs 03/28/18 11:20 03/28/18 12:00 03/28/18 16:00 Temperature 99.1 F Pulse Rate 110 H 106 H Respiratory Rate 20 18 22 Blood Pressure 100/65 99/63 L 135/68 Pulse Oximetry 96 94 L 97 03/28/18 18:12 03/28/18 18:15 03/28/18 19:00 Temperature 98.5 F Pulse Rate 112 H 111 H Respiratory Rate 20 18 18 Blood Pressure 132/78 Pulse Oximetry 03/28/18 20:00 03/28/18 20:16 03/29/18 00:00 Temperature 99.3 F 99.0 F Pulse Rate 110 H 107 H 100 H Respiratory Rate 22 19 Blood Pressure 114/56 L 121/70 Pulse Oximetry 96 98 03/29/18 00:08 03/29/18 04:00 03/29/18 04:18 Temperature 98.3 F Pulse Rate 106 H 92 H 96 H Respiratory Rate 18 Blood Pressure 111/73 Pulse Oximetry 97 03/29/18 07:49 03/29/18 07:53 03/29/18 09:12 Temperature 98.1 F Pulse Rate 93 H Respiratory Rate 6 L Blood Pressure 112/69 Pulse Oximetry 98 Intake & Output 03/28/18 03/29/18 03/29/18 18:59 06:59 18:59 Output Total 700 / 700 Balance -700 / -700 Weight 99.4 kg Output: Urine 700 / 700 Other: Date of Last Bowel Movement 03/27/18 03/27/18 Narrative: General patient complains of back pain, patient complaining of a cough overnight. HEENT extraocular movements are intact, clear oropharyngeal mucosa, no JVD Cardiovascular S1-S2 audible, RRR Respiratory clear to auscultation bilaterally Abdomen soft, nontender, nondistended, normal bowel sounds Extremities no edema 2+ distal pulses in bilateral upper and lower extremities Neuro no neurological deficits, patient moves all 4 extremities and sensation is intact bilaterally Results - Labs CBC & Chem 7: 03/25/18 06:23 03/25/18 06:21 - Procedures None Assessment and Plan - Assessment (1) Intractable back pain Code(s): M54.9 - Dorsalgia, unspecified Status: Acute (2) Lung cancer Code(s): C34.90 - Malignant neoplasm of unspecified part of unspecified bronchus or lung Status: Acute (3) COPD (chronic obstructive pulmonary disease) Code(s): J44.9 - Chronic obstructive pulmonary disease, unspecified Status: Acute (4) Alcohol abuse Code(s): F10.10 - Alcohol abuse, uncomplicated Status: Acute (5) Pleural effusion Code(s): J90 - Pleural effusion, not elsewhere classified Status: Acute (6) PNA (pneumonia) Code(s): J18.9 - Pneumonia, unspecified organism Status: Acute - Plan This patient is a 62-year-old male with a diagnosis of 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 The patient is on chemotherapy for stage IIIb disease and follows up with [facility] oncology. The patient was admitted for severe back pain and MRI of the spine showed abnormalities in the lumbar spine concerning for metastatic disease. The patient underwent biopsy of the L3 vertebral body with kyphoplasty on 03/21/2018. 1. Advanced squamous cell carcinoma of the lung with possible metastasis to the lumbar spine. 2. Acute hypoxic restaurant failure secondary to #1 The patient's shortness of breath is likely secondary to advanced, cell carcinoma of the lung. Patient complaining of a cough this morning which has been present since yesterday. Chest x-ray ordered, will follow up the results of the chest x-ray. Afebrile overnight. Continue supplemental oxygen as needed. Continue breathing treatments as needed. The patient will need rehab at a [facility] facility after discharge he would likely benefit from [facility] facility placement. Case was discussed in detail with case management. Patient is unsafe to be discharged back to the [facility] given his current condition. Case management is working on placing the patient at a [facility] facility. Pathology confirms metastatic disease to the L3 vertebral body. Palliative care evaluated the patient. The patient is now DNR/DNI as per the documentation. 2. COPD Continue Symbicort, DuoNeb treatments as needed. 3. Alcohol abuse Continue multivitamin thiamine folate. Patient advised to stop alcohol use. Lovenox for DVT prophylaxis. Discharge planning The patient is currently living at a motel because he is homeless. Currently the patient is unsafe discharge back to the [facility], he is having shortness of breath with ambulating short distances and has a lot of back pain when he begins to ambulate. Plan is to discharge the patient to a [facility] facility. We will discussed the case again today with case management.
[2018-03-29] MEDS: Magnesium Oxide 400 MG Tablet PO SCH ×2 (09:53→14:02)
[2018-03-29] MEDS: Enoxaparin Inj 40 MG/0.4 ML Syringe SQ SCH (09:53)
[2018-03-29] MEDS: guaiFENesin 600 MG ER Tablet PO SCH ×2 (09:53→20:35)
[2018-03-29] MEDS: Budesonide-Formoterol 160/4.5 MCG 6 GM Inhaler INH SCH ×2 (09:54→20:35)
--- NOTE | 2018-03-29 10:25 | XR ---
EXAM DATE: 03/29/2018 10:21 AM EST AGE/SEX: 62 years / Male INDICATIONS: Cough. CLINICAL DATA: This is the patient's subsequent encounter. Patient reports that signs and symptoms h ave been present for 1 week and indicates a pain score of 3/10. MEDICAL/SURGICAL HISTORY: . Hypertension. Peripheral artery disease. EtOH abuse. COPD. Hyperlip idemia. Right upper lobe lung mass. MRSA bilateral feet. . Tonsillectomy. Femoropopliteal arterial th rombosis right lower extremity. Left hand surgery. . COMPARISON: [facility] [place] 1[place] SING[place], 03/15/2018. . FINDINGS: Postsurgical features of prior right-sided thoracotomy. Airspace consolidation in the right mid to lo wer lung zones with streaky right perihilar opacities. Volume loss with mediastinal shift to the righ t. Cardiomegaly saw contours are otherwise within normal limits. CONCLUSION: 1. No significant interval change. 2. Presumed postsurgical volume loss with airspace disease in the right hilum and lower lung zone. Electronically signed by: Edgar Padilla MD 03/29/2018 10:24 AM EST
--- NOTE | 2018-03-29 10:44 | P.PNPAL ---
Reason for Visit Reason for visit: a. To assist with evaluation and management of symptoms including: Pain, dyspnea, debility b. To assist medical decision maker(s) with: better understanding of current medical conditions; weighing benefits/burdens of medical treatment options; making medical treatment decisions. Subjective Subjective/Interval History: Follow-up medically necessary for symptom management dyspnea, pain, debility. Patient seen and examined in his room. Patient is currently sitting up in bed. Patient has expiratory wheezing and is complaining of lower back pain. Currently rating it 6 out of 10 and states that he has just been medicated by bedside RN. Patient complaining of productive cough and spitting out frothy white sputum. Case management assisting with safe discharge to a halfway facility. Goals remain aggressive short of no code. . Family/Friend Interactions: No visitors at bedside . Advance Directives Living Will: Never completed Health Care Surrogate: Copy in medical record Durable Power of Foundation Drill Operator Helper: Never completed Health Care Surrogate Name and Number: [phone] Objective Vital Signs: Vital Signs 03/28/18 11:20 03/28/18 12:00 03/28/18 16:00 Temperature 99.1 F Pulse Rate 110 H 106 H Respiratory Rate 20 18 22 Blood Pressure 100/65 99/63 L 135/68 Pulse Oximetry 96 94 L 97 03/28/18 18:12 03/28/18 18:15 03/28/18 19:00 Temperature 98.5 F Pulse Rate 112 H 111 H Respiratory Rate 20 18 18 Blood Pressure 132/78 Pulse Oximetry 03/28/18 20:00 03/28/18 20:16 03/29/18 00:00 Temperature 99.3 F 99.0 F Pulse Rate 110 H 107 H 100 H Respiratory Rate 22 19 Blood Pressure 114/56 L 121/70 Pulse Oximetry 96 98 03/29/18 00:08 03/29/18 04:00 03/29/18 04:18 Temperature 98.3 F Pulse Rate 106 H 92 H 96 H Respiratory Rate 18 Blood Pressure 111/73 Pulse Oximetry 97 03/29/18 07:49 03/29/18 07:53 03/29/18 09:12 Temperature 98.1 F Pulse Rate 93 H Respiratory Rate 6 L Blood Pressure 112/69 Pulse Oximetry 98 Intake & Output 03/28/18 03/29/18 03/29/18 18:59 06:59 18:59 Output Total 700 / 700 Balance -700 / -700 Weight 99.4 kg Output: Urine 700 / 700 Other: Date of Last Bowel Movement 03/27/18 03/27/18 Physical Exam: CONSTITUTIONAL/GENERAL: This is a chronically ill looking patient, in no apparent distress. TUBES/LINES/DRAINS: PIV, nasal cannula SKIN: No jaundice, rashes, or lesions. Ecchymoses on upper extremities. No wounds seen anteriorly. Skin temperature appropriate. Not diaphoretic. HEAD: Atraumatic. Normocephalic. EYES: Pupils equal and round and reactive. Extraocular motions intact. No scleral icterus. No injection or drainage. Fundi not examined. ENT: Hearing grossly normal. Nose without bleeding or purulent drainage. Moist oral mucosa NECK: Trachea midline. Supple, nontender. CARDIOVASCULAR: Regular rate and rhythm without murmurs, gallops, or rubs. No JVD. Peripheral pulses symmetric. RESPIRATORY/CHEST: Symmetric, mildly labored respirations. Expiratory wheezing. Productive cough. No rales, or rhonchi. GASTROINTESTINAL: Abdomen soft, non-tender,distended. No guarding. Bowel sounds present. GENITOURINARY: Without palpable bladder distension. MUSCULOSKELETAL: Extremities without clubbing, cyanosis, or edema. No joint tenderness or effusion noted. No calf tenderness. No mottling or clubbing. LYMPHATICS: Did not assess NEUROLOGICAL: Awake and alert. Motor and sensory grossly within normal limits. Follows commands. Moves all extremities. PSYCHIATRIC: No obvious anxiety/depression. no apparent hallucinations or other psychotic thought process. Diagnostic Tests Result Diagrams: 03/25/18 06:23 03/25/18 06:21 Imaging: Chest CTA 03/15/18 14:42 CONCLUSION: 1. No evidence for pulmonary embolism. 2. Moderate right pleural effusion. 3. Scattered parenchymal densities throughout the right lung could be infectious or inflammatory. 4. Parenchymal lesion in the right lower lung measures 2.7 cm could be recurrent carcinoma. Outpatient PET CT scan recommended for further characterization. Venous Doppler Study 03/15/18 14:42 CONCLUSION: 1. No evidence of DVT. Radiofrequency Ablation 03/21/18 00:00 CONCLUSION: 1. Uncomplicated fluoroscopic guided biopsy of L3 vertebral body 2. Uncomplicated fluoroscopic guided thermal ablation and L3 kyphoplasty. Chest X-Ray 03/29/18 00:00 CONCLUSION: 1. No significant interval change. 2. Presumed postsurgical volume loss with airspace disease in the right hilum and lower lung zone. Procedures: 03/21/18-fluoroscopically guided kyphoplasty and L3 biopsy Assessment and Plan - Disease Oriented Problem List (1) Lung cancer (2) COPD (chronic obstructive pulmonary disease) (3) Tobacco abuse (4) Hypertension (5) Alcohol abuse (6) Hyperlipemia (7) Stage IV squamous cell carcinoma of lung (8) Homelessness - Symptom Scale (1) Pain 0-10 Scale: 6 (2) Dyspnea 0-10 Scale: Unable to quantify Comment: Patient has stage IV lung cancer and COPD. (3) Debility 0-10 Scale: Unable to quantify Pertinent Non-Medical Issues: Psychosocial: Patient was born and raised in [facility]. He moved to [place] approximately 15 years ago. Patient use to work for a [employer]. 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 Patient has never been and is never had children. He has 2 estranged sisters, Sophie Heredia who resides in [place] ([place] or [place]) and another one Rehana resides in [place]. Patient's both parents are . Father in 1974 from an unknown cancer and mother at age 92. Spiritual: Patient is Yarsanism-declined visit from Legal: Completed and signed designation of healthcare surrogate form on 03/27/18 Ethical issues impacting care: Patient is homeless. Prior to this hospitalization patient has been residing in a motel paid for by the hospital up to April 10, 2018. Patient is afraid that he will not be able to manage being homeless with his advanced disease. . Important Contacts: Healthcare surrogate -Eriberto Mata- [phone] . Prognosis: Mr. Garcia is a 62-year-old male with a history of stage IV squamous cell lung cancer with metastatic disease to L3 vertebral body, recurrent right pleural effusion tobaccoism, alcohol abuse, chronic obstructive pulmonary disease, hyperlipidemia, hypertension, history of chronic pancreatitis, and femoral artery occlusion. Patient presented to the emergency room on 03/15/18 with complaints of severe low back shortness of breath and right lower extremity swelling. Patient underwent L3 biopsy by interventional radiology. Pathology revealed metastatic squamous cell carcinoma. Given multiple ongoing comorbidities, patient remains at high risk for further complications, deterioration and decline. Patient has been offered palliative chemotherapy and radiation. If patient's goals would be comfort care only, he would benefit from hospice care. . Code Status: No Code DNR Plan: PLAN: Legal decision maker: Patient is currently able to participate in medical decision making. In the event that he is incapacitated he has designated his friend Adolfo Wei is his healthcare surrogate. Goals: Aggressive short of no code. Patient would like to proceed with palliative chemotherapy and radiation therapy. Patient designated a healthcare surrogate and made himself a DO NOT RESUSCITATE/DO NOT INTUBATE. Patient would like assistance with placement and is willing to go for rehabilitation at a halfway facility and most likely long term care administrator placement. Hospice topic broached. Patient is currently not ready for hospice services. He would like to see how he would do with palliative chemotherapy and radiation. CODE STATUS: No code DO NOT RESUSCITATE/DO NOT INTUBATE SYMPTOMS: * Pain:Patient came in with complaints of severe back pain. Diagnostic tests revealed stage IV squamous cell carcinoma of the lung with metastasis to L3 vertebral body. Patient describes pain as throbbing, sharp pain to his back. Current pain level 6/10. Pain currently managed with hydrocodone 7.5 every 6 hrs as needed and patient is required x4 as needed doses in the past 24 hours, hydromorphone 1 mg every 3 hours patient is required x3 doses in the past 24 hours and patient also has Flexeril 10 mg every 8 hours [id number]. Recommending starting patient on low dose steroid like dexamethasone 2 mg po daily if not contraindicated. Steroids usually used for his adjuvant therapy for metastatic bone pain, neuropathic pain and visceral pain Recommending changing frequency for hydrocodone to every 4 hours as needed. * Dyspnea: Patient has stage IV lung carcinoma with metastasis to L3 vertebral body, recurrent pleural effusions. Patient is short of breath with conversation and activity. Today patient has expiratory wheezing. Currently on O2 2 L nasal cannula. * Debility: Progressive. Patient has stage IV lung carcinoma with metastases to L3 vertebral body. Patient has had multiple hospitalizations in the past few months. Patient's activity largely limited by dyspnea, pain. Physical therapy consulted. Palliative care will continue to follow the patient during hospital course as condition evolves, to assist patient/decision-maker with understanding of their medical conditions, weighing benefits/burdens of treatment options, for clarification of goals of treatment. Additionally will assist with any symptoms of palliative concern Attestation Attestation: To help prompt me to consider important information that might be impacting today's encounter and assessment, information from prior notes written by myself or my colleagues may have been "brought forward" into today's note. My signature on this note, however, is an attestation that I personally performed the exam, history, and/or decision-making noted today, and, unless otherwise indicated, the interactions with patient, family, and staff as well as the review of records all occurred today. I also attest that the listed assessment and stated plan reflect my best clinical judgment today based on the combination of historical information, prior notes, and today's exam/ interactions. When time spent is documented, it refers only to time spent today by the signer, or if indicated, combined time spent today by collaborating physician/nurse practitioner.
[2018-03-30] MEDS: HYDROmorphone PF Inj 1 MG/ML Ampul IV.PUSH PRN ×3 (00:28→14:49)
[2018-03-30 05:14] VITALS: RESP 18
[2018-03-30] MEDS: Enoxaparin Inj 40 MG/0.4 ML Syringe SQ SCH (08:47)
[2018-03-30] MEDS: guaiFENesin 600 MG ER Tablet PO SCH (08:47)
[2018-03-30] MEDS: Budesonide-Formoterol 160/4.5 MCG 6 GM Inhaler INH SCH (08:47)
--- NOTE | 2018-03-30 11:02 | P.PNIM ---
Subjective Interval history: Follow-up for pain No overnight events, still complaining of lower back pain and lower extremity pain. No shortness of breath, no chest pain. Physical Exam Vital signs: Vital Signs 03/29/18 13:54 03/29/18 14:00 03/29/18 14:25 Temperature 97.1 F L Pulse Rate 104 H Respiratory Rate 18 18 Blood Pressure 141/83 H Pulse Oximetry 03/29/18 17:28 03/29/18 18:00 03/29/18 18:20 Temperature 97.9 F Pulse Rate 103 H 103 H Respiratory Rate 20 20 Blood Pressure 140/64 Pulse Oximetry 99 03/29/18 20:00 03/29/18 22:00 03/30/18 00:00 Temperature 99.4 F 99.1 F Pulse Rate 112 H 111 H 103 H Respiratory Rate 20 12 Blood Pressure 122/69 94/64 L Pulse Oximetry 94 L 03/30/18 00:05 03/30/18 04:00 03/30/18 08:00 Temperature 98.6 F Pulse Rate 99 H 103 H 100 H Respiratory Rate 18 Blood Pressure 153/78 H Pulse Oximetry 93 L 03/30/18 10:28 Temperature Pulse Rate Respiratory Rate Blood Pressure Pulse Oximetry 98 Intake & Output 03/29/18 03/30/18 03/30/18 18:59 06:59 18:59 Intake Total 1070 / 1070 Output Total 1150 / 1150 Balance -80 / -80 Weight 99.6 kg Intake: Oral 1070 / 1070 Output: Urine 1150 / 1150 Other: Date of Last Bowel Movement 03/27/18 Narrative: General patient complains of back pain Cardiovascular S1-S2 audible, RRR Respiratory clear to auscultation bilaterally Abdomen soft, nontender, nondistended, normal bowel sounds Extremities no edema 2+ distal pulses in bilateral upper and lower extremities Neuro no neurological deficits, alert and awake, oriented x3, patient moves all 4 extremities Results - Labs CBC & Chem 7: 03/25/18 06:23 03/25/18 06:21 - Procedures None Assessment and Plan - Assessment (1) Intractable back pain Code(s): M54.9 - Dorsalgia, unspecified Status: Acute (2) Lung cancer Code(s): C34.90 - Malignant neoplasm of unspecified part of unspecified bronchus or lung Status: Acute (3) COPD (chronic obstructive pulmonary disease) Code(s): J44.9 - Chronic obstructive pulmonary disease, unspecified Status: Acute (4) Alcohol abuse Code(s): F10.10 - Alcohol abuse, uncomplicated Status: Acute (5) Pleural effusion Code(s): J90 - Pleural effusion, not elsewhere classified Status: Acute (6) PNA (pneumonia) Code(s): J18.9 - Pneumonia, unspecified organism Status: Acute - Plan This patient is a 62-year-old male with a diagnosis of 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 The patient is on chemotherapy for stage IIIb disease and follows up with [facility] oncology. The patient was admitted for severe back pain and MRI of the spine showed abnormalities in the lumbar spine concerning for metastatic disease. The patient underwent biopsy of the L3 vertebral body with kyphoplasty on 03/21/2018. 1. Advanced squamous cell carcinoma of the lung with possible metastasis to the lumbar spine. 2. Acute hypoxic restaurant failure secondary to #1 -Chest x-ray is unchanged, afebrile, continue oxygen support.Continue supplemental oxygen as needed. Continue breathing treatments as needed. - Pathology confirms metastatic disease to the L3 vertebral body. Positive care following, DNR/DNI, agree with starting Decadron 2 mg daily and increasing hydrocodone to every 4. 2. COPD Continue Symbicort, DuoNeb treatments as needed. 3. Alcohol abuse Continue multivitamin thiamine folate. Patient advised to stop alcohol use. Lovenox for DVT prophylaxis. Discharge planning The patient is currently living at a motel because he is homeless. Currently the patient is unsafe discharge back to the [facility], he is having shortness of breath with ambulating short distances and has a lot of back pain when he begins to ambulate. Plan is to discharge the patient to a fdc facility, referral to [facility]..
[2018-03-30] MEDS: Magnesium Oxide 400 MG Tablet PO SCH (12:42)
--- NOTE | 2018-03-30 13:03 | P.DS ---
Date of admission: 03/20/18 23:56 Primary care physician: Emi Stone Anticipated date of discharge: 03/30/18 Brief History from admission: This is a 62-year-old male with a PMH of HTN, COPD, Alcohol Abuse, Recurrent Right Pleural Effusion and Lung CA w/ Mets on Chemo/Radiation who presented to the ER w/ c/o severe back pain. Recently seen in ER on 03/08/18 for similar complaints, referred to the ER by Dr. Ann for STAT MRI to eval severe back pain, MRI L-Spine 03/08/18 w/ abnormal marrow replacement L3, likely metastatic. States he was seen by Dr. Ann after those results and had Radiation today. Referred to the ER today by Dr. Kovacs with whom he follows, for ongoing back pain and RLE pain. States pain is severe, 03/01, occasional radiation down RLE w/ associated numbness/tingling. No incontinence. On arrival, BP 138/78, HR 98% on RA, Afebrile. CBC essentially at baseline except for bandemia of 12%. INR 1.0. Chemistry essentially unremarkable. CXR with postsurgical volume loss and airspace consolidation right hilum, no significant change. Doppler LE negative for DVT. CTA Chest negative for PE, moderate right pleural effusion, scattered parenchymal densities throughout right lung could be infectious, parenchymal lesion right lower lung 2.7 cm. DS: Diagnosis - Discharge Diagnosis (1) Intractable back pain Status: Acute (2) Lung cancer Status: Acute (3) COPD (chronic obstructive pulmonary disease) Status: Acute (4) Alcohol abuse Status: Acute (5) Pleural effusion Status: Acute (6) PNA (pneumonia) Status: Acute DS: Medications - Discharge Medications Prescriptions: hydrocodone-acetaminophen [Viking] 1 tab PO Q4-6H PRN #10 tab PRN Reason: Pain lorazepam 1 mg PO BID #6 tab DS: Summary Hospital Course: This patient is a 62-year-old male with a diagnosis of 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 The patient is on chemotherapy for stage IIIb disease and follows up with heme oncology. The patient was admitted for severe back pain and MRI of the spine showed abnormalities in the lumbar spine concerning for metastatic disease. The patient underwent biopsy of the L3 vertebral body with kyphoplasty on 03/21/2018. 1. Advanced squamous cell carcinoma of the lung with possible metastasis to the lumbar spine. 2. Acute hypoxic restaurant failure secondary to #1 -Chest x-ray is unchanged, afebrile, continue oxygen support.Continue supplemental oxygen as needed. Continue breathing treatments as needed. - Pathology confirms metastatic disease to the L3 vertebral body. Positive care following, DNR/DNI, agree with starting Decadron 2 mg daily and increasing hydrocodone to every 4. 2. COPD Continue Symbicort, DuoNeb treatments as needed. 3. Alcohol abuse Continue multivitamin thiamine folate. Patient advised to stop alcohol use. Lovenox for DVT prophylaxis. Discharge planning The patient is currently living at a motel because he is homeless. Currently the patient is unsafe discharge back to the motel, he is having shortness of breath with ambulating short distances and has a lot of back pain when he begins to ambulate. Plan is to discharge the patient to a halfway facility, referral to [facility] placed.. - Time Spent with Patient Total time spent providing and/or coordinating discharge services: Greater than 30 minutes - Quality: VTE Deep Vein Thrombosis/Pulmonary Embolism Present on Admission: No Exam Vital signs: Vital Signs 03/29/18 13:54 03/29/18 14:00 03/29/18 14:25 Temperature 97.1 F L Pulse Rate 104 H Respiratory Rate 18 18 Blood Pressure 141/83 H Pulse Oximetry 03/29/18 17:28 03/29/18 18:00 03/29/18 18:20 Temperature 97.9 F Pulse Rate 103 H 103 H Respiratory Rate 20 20 Blood Pressure 140/64 Pulse Oximetry 99 03/29/18 20:00 03/29/18 22:00 03/30/18 00:00 Temperature 99.4 F 99.1 F Pulse Rate 112 H 111 H 103 H Respiratory Rate 20 12 Blood Pressure 122/69 94/64 L Pulse Oximetry 94 L 03/30/18 00:05 03/30/18 04:00 03/30/18 08:00 Temperature 98.6 F Pulse Rate 99 H 103 H 100 H Respiratory Rate 18 Blood Pressure 153/78 H Pulse Oximetry 93 L 03/30/18 08:45 03/30/18 10:28 Temperature 98.5 F Pulse Rate 99 H Respiratory Rate 18 Blood Pressure 107/70 Pulse Oximetry 95 98 Intake & Output 03/29/18 03/30/18 03/30/18 18:59 06:59 18:59 Intake Total 1070 / 1070 Output Total 1150 / 1150 Balance -80 / -80 Weight 99.6 kg Intake: Oral 1070 / 1070 Output: Urine 1150 / 1150 Other: Date of Last Bowel Movement 03/27/18 03/28/18 Results Procedures completed during hospitalization: None - Impressions ITS Impressions Chest CTA 03/15/18 14:42 CONCLUSION: 1. No evidence for pulmonary embolism. 2. Moderate right pleural effusion. 3. Scattered parenchymal densities throughout the right lung could be infectious or inflammatory. 4. Parenchymal lesion in the right lower lung measures 2.7 cm could be recurrent carcinoma. Outpatient PET CT scan recommended for further characterization. Venous Doppler Study 03/15/18 14:42 CONCLUSION: 1. No evidence of DVT. Radiofrequency Ablation 03/21/18 00:00 CONCLUSION: 1. Uncomplicated fluoroscopic guided biopsy of L3 vertebral body 2. Uncomplicated fluoroscopic guided thermal ablation and L3 kyphoplasty. Chest X-Ray 03/29/18 00:00 CONCLUSION: 1. No significant interval change. 2. Presumed postsurgical volume loss with airspace disease in the right hilum and lower lung zone. Discharge Plan - Discharge Disposition Patient Disposition: Discharge to SNF - Discharge Condition Condition: Stable - Discharge Order Discharge Orders: Discharge Order (Routine); Ordered 03/30/18 Ordered By: Zoe Jhaveri - Discharge Details Anticipated Discharge Date: 03/30/18 - Physicians Team Primary Care Provider: Emi Stone Attending Provider: Zoe Jhaveri Other Providers: Libra Jarrett MD ; Mark Henry MD ; Franklin Kovacs MD ; Pradeep Rayo MD ; [facility]
--- NOTE | 2018-03-30 16:41 | P.PNPAL ---
Reason for Visit Reason for visit: a. To assist with evaluation and management of symptoms including: Pain, dyspnea, debility b. To assist medical decision maker(s) with: better understanding of current medical conditions; weighing benefits/burdens of medical treatment options; making medical treatment decisions. Subjective Subjective/Interval History: Follow-up medically necessary for symptom management dyspnea, pain, debility. Patient is awake, sitting up in bed. Alert, oriented to self, place and situation. Patient endorsing pain to his back, rating pain is 5 out of 10 at this time and he states that at least he feels somewhat relieved when he is medicated. He was also started on dexamethasone 2 mg p.o. daily. Remains on oxygen 3 L via nasal cannula, O2 saturations in the mid to high 90s. Hydrocodone/acetaminophen 7.5/325 frequency changed from every 6 hours as needed to every 4 hours as needed. Patient has been having radiation therapy treatments during this hospital course , he had radiation therapy again today. Patient is looking forward to being discharged to a custodial facility. Patient very grateful for the assistance he has received during this hospitalization and a safe discharge to a SNF. Patient states that he knows his medical condition and his current physical status will not allow him to be homeless. He admits that he is getting weaker and requires assistance with most of his ADLs. His goals remain aggressive- he wants to continue with palliative chemotherapy and radiation. Case discussed with bedside RN. Plan is to discharge patient today to [facility] nursing facility Family/Friend Interactions: No family or friends at bedside . Advance Directives Living Will: Never completed Health Care Surrogate: Copy in medical record Durable Power of Civil Structural Designer: Never completed Health Care Surrogate Name and Number: [phone] Objective Vital Signs: Vital Signs 03/29/18 17:28 03/29/18 18:00 03/29/18 18:20 Temperature 97.9 F Pulse Rate 103 H 103 H Respiratory Rate 20 20 Blood Pressure 140/64 Pulse Oximetry 99 03/29/18 20:00 03/29/18 22:00 03/30/18 00:00 Temperature 99.4 F 99.1 F Pulse Rate 112 H 111 H 103 H Respiratory Rate 20 12 Blood Pressure 122/69 94/64 L Pulse Oximetry 94 L 03/30/18 00:05 03/30/18 04:00 03/30/18 08:00 Temperature 98.6 F Pulse Rate 99 H 103 H 100 H Respiratory Rate 18 Blood Pressure 153/78 H Pulse Oximetry 93 L 03/30/18 08:45 03/30/18 10:28 03/30/18 12:00 Temperature 98.5 F Pulse Rate 99 H 94 H Respiratory Rate 18 Blood Pressure 107/70 Pulse Oximetry 95 98 03/30/18 12:36 Temperature 98.5 F Pulse Rate 105 H Respiratory Rate 18 Blood Pressure 116/80 Pulse Oximetry 99 Intake & Output 03/29/18 03/30/18 03/30/18 18:59 06:59 18:59 Intake Total 1070 / 1070 Output Total 1150 / 1150 Balance -80 / -80 Weight 99.6 kg Intake: Oral 1070 / 1070 Output: Urine 1150 / 1150 Other: Date of Last Bowel Movement 03/27/18 03/28/18 Physical Exam: CONSTITUTIONAL/GENERAL: This is a chronically ill looking patient, in no apparent distress. TUBES/LINES/DRAINS: PIV, nasal cannula SKIN: No jaundice, rashes, or lesions. Ecchymoses on upper extremities. No wounds seen anteriorly. Skin temperature appropriate. Not diaphoretic. HEAD: Atraumatic. Normocephalic. EYES: Pupils 3 mm reactive to light. No scleral icterus. No injection or drainage. Fundi not examined. ENT: Hearing grossly normal. No nasal drainage. Moist oral mucosa. NECK: Trachea midline. Supple, nontender. CARDIOVASCULAR: S1, S2 normal. No JVD. Peripheral pulses symmetric. RESPIRATORY/CHEST: Symmetric, mildly labored respirations. No wheezing, rhonchi. GASTROINTESTINAL: Abdomen soft, non-tender,distended. No guarding. Bowel sounds present. GENITOURINARY: Without palpable bladder distension. MUSCULOSKELETAL: Extremities without clubbing, cyanosis, or edema. No joint tenderness or effusion noted. LYMPHATICS: Did not assess NEUROLOGICAL: Awake and alert. Motor and sensory grossly within normal limits. Follows commands. Moves all extremities. PSYCHIATRIC: No obvious anxiety/depression. no apparent hallucinations or other psychotic thought process. Diagnostic Tests Result Diagrams: 03/25/18 06:23 03/25/18 06:21 Imaging: Chest CTA 03/15/18 14:42 CONCLUSION: 1. No evidence for pulmonary embolism. 2. Moderate right pleural effusion. 3. Scattered parenchymal densities throughout the right lung could be infectious or inflammatory. 4. Parenchymal lesion in the right lower lung measures 2.7 cm could be recurrent carcinoma. Outpatient PET CT scan recommended for further characterization. Venous Doppler Study 03/15/18 14:42 CONCLUSION: 1. No evidence of DVT. Radiofrequency Ablation 03/21/18 00:00 CONCLUSION: 1. Uncomplicated fluoroscopic guided biopsy of L3 vertebral body 2. Uncomplicated fluoroscopic guided thermal ablation and L3 kyphoplasty. Chest X-Ray 03/29/18 00:00 CONCLUSION: 1. No significant interval change. 2. Presumed postsurgical volume loss with airspace disease in the right hilum and lower lung zone. Procedures: 03/21/18-fluoroscopically guided kyphoplasty and L3 biopsy Assessment and Plan - Disease Oriented Problem List (1) Lung cancer (2) COPD (chronic obstructive pulmonary disease) (3) Tobacco abuse (4) Hypertension (5) Alcohol abuse (6) Hyperlipemia (7) Stage IV squamous cell carcinoma of lung (8) Homelessness - Symptom Scale (1) Pain 0-10 Scale: 5 (2) Dyspnea 0-10 Scale: Unable to quantify Comment: Patient has stage IV lung cancer and COPD. (3) Debility 0-10 Scale: Unable to quantify Pertinent Non-Medical Issues: Psychosocial: Patient was born and raised in [facility]. He moved to [place] approximately 15 years ago. 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 Patient has never been and is never had children. He has 2 estranged sisters, Spohie Heredia who resides in [place] ([place] or [place]) and another one Rehana resides in [place]. Patient's both parents are . Father in 1974 from an unknown cancer and mother at age 92. Spiritual: Patient is Adventism-declined visit from agriscience instructor Legal: Completed and signed designation of healthcare surrogate form on 03/27/18 Ethical issues impacting care: Patient is homeless. Prior to this hospitalization patient has been residing in a motel paid for by the hospital up to April 10, 2018. Patient is afraid that he will not be able to manage being homeless with his advanced disease. . Important Contacts: Healthcare surrogate -Eriberto Mata- [phone] . Prognosis: Mr. Garcia is a 62-year-old male with a history of stage IV squamous cell lung cancer with metastatic disease to L3 vertebral body, recurrent right pleural effusion tobaccoism, alcohol abuse, chronic obstructive pulmonary disease, hyperlipidemia, hypertension, history of chronic pancreatitis, and femoral artery occlusion. Patient presented to the emergency room on 03/15/18 with complaints of severe low back shortness of breath and right lower extremity swelling. Patient underwent L3 biopsy by interventional radiology. Pathology revealed metastatic squamous cell carcinoma. Given multiple ongoing comorbidities, patient remains at high risk for further complications, deterioration and decline. Patient has been offered palliative chemotherapy and radiation. If patient's goals would be comfort care only, he would benefit from hospice care. . Code Status: No Code DNR Plan: PLAN: Legal decision maker: Patient is currently able to participate in medical decision making. In the event that he is incapacitated he has designated his friend Adolfo Wei is his healthcare surrogate. Goals: Goals remain aggressive short of no code. Patient is going to be discharged to a custodial facility [facility]. Patient wants to continue with palliative chemotherapy and radiation. CODE STATUS: No code DO NOT RESUSCITATE/DO NOT INTUBATE SYMPTOMS: * Pain:Patient came in with complaints of severe back pain. Diagnostic tests revealed stage IV squamous cell carcinoma of the lung with metastasis to L3 vertebral body. Patient describes pain as throbbing, sharp pain to his back. Current pain level 5/10. Hydrocodone/acetaminophen 7.5/325 frequency changed from every 6 hours as needed to every 4 hours as needed. Patient started on dexamethasone 2 mg p.o. daily. Medication appendectomy is adequate at this time. * Dyspnea: Patient has stage IV lung carcinoma with metastasis to L3 vertebral body, recurrent pleural effusions. Patient is short of breath with conversation and activity. Today patient has expiratory wheezing. Currently on O2 3 L nasal cannula. O2 saturation in the mid to high 90s. * Debility: Progressive. Patient has stage IV lung carcinoma with metastases to L3 vertebral body. Patient has had multiple hospitalizations in the past few months. Patient's activity largely limited by dyspnea, pain. Physical therapy recommending PT at rehab. Palliative care will continue to follow the patient during hospital course as condition evolves, to assist patient/decision-maker with understanding of their medical conditions, weighing benefits/burdens of treatment options, for clarification of goals of treatment. Additionally will assist with any symptoms of palliative concern Attestation Attestation: To help prompt me to consider important information that might be impacting today's encounter and assessment, information from prior notes written by myself or my colleagues may have been "brought forward" into today's note. My signature on this note, however, is an attestation that I personally performed the exam, history, and/or decision-making noted today, and, unless otherwise indicated, the interactions with patient, family, and staff as well as the review of records all occurred today. I also attest that the listed assessment and stated plan reflect my best clinical judgment today based on the combination of historical information, prior notes, and today's exam/ interactions. When time spent is documented, it refers only to time spent today by the signer, or if indicated, combined time spent today by collaborating physician/nurse practitioner.
[2018-03-30 17:12] VITALS: BP 108/67; PULSE 94; TEMP 98.6; O2SAT 98
== END 2018-03-30 17:02 ==
LOC: NEDA 13:40 → NEPC 13:40 → NEPGCP 19:55 → NEDH 03-16 10:05 → NEPGCP 03-16 10:07 → HCIS 03-16 10:15 → HCIN 03-17 07:15
PROVIDERS: ADMIT Hospitalist; ATTEND Hospitalist
DX: J44.1 Chronic obstructive pulmonary disease with (acute) exacerbation; M79.89 Other specified soft tissue disorders; Z87.891 Personal history of nicotine dependence; C34.11 Malignant neoplasm of upper lobe, right bronchus or lung; Z86.718 Personal history of other venous thrombosis and embolism; Z66 Do not resuscitate; M79.604 Pain in right leg; C79.51 Secondary malignant neoplasm of bone; J96.21 Acute and chronic respiratory failure with hypoxia; Z88.5 Allergy status to narcotic agent; J44.0 Chronic obstructive pulmonary disease with (acute) lower respiratory infection; M54.5 Low back pain; Z79.02 Long term (current) use of antithrombotics/antiplatelets; I10 Essential (primary) hypertension; J90 Pleural effusion, not elsewhere classified; Z79.51 Long term (current) use of inhaled steroids; J18.9 Pneumonia, unspecified organism; Z51.5 Encounter for palliative care; Z59.0 Homelessness; R60.0 Localized edema; E78.5 Hyperlipidemia, unspecified; F10.20 Alcohol dependence, uncomplicated